=== PATIENT | female | born 1985 | race Caucasian/White ===

== ENCOUNTER 2024-07-26 19:44 | Emergency (ER) | payer BC, SELFPAY ==
--- NOTE | ~2024-07-26 | XR_ITS ---
EXAMINATION: XR chest 2V DATE: 07/26/2024 20:21 INDICATION: Shortness of breath. Chest pain. TECHNIQUE: Frontal and lateral views of the chest were obtained. COMPARISON: None. FINDINGS: There is no pneumonia, pleural effusion, or pneumothorax. The heart size is normal. IMPRESSION: 1. No acute cardiopulmonary disease. Reviewed, dictated and finalized at location A. [facility]
--- NOTE | 2024-07-26 19:48 | ECG_ITS ---
Test Date: 2024-07-26 19:53:06 Measurements Intervals [place] Rate: 63 P: -28 DE: 106 QRS: 48 QRSD: 78 T: 60 QT: 391 QTc: 402 Interpretive Statements SINUS RHYTHM WITH SHORT DE INTERVAL No previous ECG available for comparison Electronically Signed On 07-27-2024 12:58:49 CHILD NURSE by Yessenia Ayoub M.D.
[2024-07-26 19:50] VITALS: BP 144/93; PULSE 79; RESP 20; TEMP 35.7; O2SAT 100
--- NOTE | 2024-07-26 20:13 | ED_ITS ---
HPI - General Adult General Chief complaint: Chest Pain <Yosef Boyd MD - Last Filed: 07/26/24 23:00> Stated complaint: chest pain <Yosef Boyd MD - Last Filed: 07/26/24 23:00> Time Seen by Provider: 07/26/24 20:06 <Yosef Boyd MD - Last Filed: 07/26/24 23:00> History of Present Illness HPI narrative: Patient is a 39-year-old female who presents ER with left-sided chest pain. Began while driving to work, symptoms started around 6:45 p.m.. Reports she gets similar discomfort in her chest when she has issues with gastroparesis of unknown origin. Her stomach felt unwell yesterday and she began having vomiting today. She has been compliant with home medications. No fevers or chills or sweats. No hemoptysis. Has mild discomfort with deep breath. No dyspnea. Did not eat yesterday or today. <Yosef Boyd MD - Last Filed: 07/26/24 23:00> Related Data Allergies/adverse reactions: Allergies Allergy/AdvReac Type Severity Reaction Status Date / Time No Known Allergies Allergy Verified 07/27/24 00:33 <Yosef Boyd MD - Last Filed: 07/26/24 23:00> Review of Systems 2 Review of Systems: All systems reviewed & are unremarkable except as noted in HPI and below <Yosef Boyd MD - Last Filed: 07/26/24 23:00> Constitutional: Constitutional: Reports no additional constitutional complaints <Yosef Boyd MD - Last Filed: 07/26/24 23:00> ENT: Reports system reviewed and no additional complaints, except as documented <Yosef Boyd MD - Last Filed: 07/26/24 23:00> Cardiovascular: Cardiovascular: Reports chest pain, Denies rapid heart rate, Denies radiating jaw, neck or arm pain and Denies slow heart rate <Yosef Boyd MD - Last Filed: 07/26/24 23:00> Respiratory: Respiratory: Reports no additional respiratory complaints < Yosef Boyd MD - Last Filed: 07/26/24 23:00> Gastrointestinal: Gastrointestinal: Reports no additional gastrointestinal complaints <Yosef Boyd MD - Last Filed: 12/13/24 23:00> PMFSH Past Medical History Medical History: Medical History (Updated 07/26/24 @ 22:57 by Yosef Boyd MD) Gastroparesis <Yosef Boyd MD - Last Filed: 07/26/24 23:00> Surgical History Surgical History: Surgical History (Updated 07/26/24 @ 20:16 by Yosef Boyd MD) History of section <Yosef Boyd MD - Last Filed: 07/26/24 23:00> Exam 2 Narrative: GENERAL: Well-appearing, well-nourished, and in no acute distress. HEAD: Normocephalic, atraumatic. ENT: Mucous membranes moist. NECK: Supple. CHEST: Clear to auscultation. No respiratory distress. HEART: Regular rate and rhythm. Normal peripheral pulses. ABDOMEN: Soft, nontender, nondistended. EXTREMITIES: Normal range of motion. No edema. SKIN: Warm, dry, no rash. NEURO: Alert and oriented x3. PSYCH: Normal mood and affect. <Yosef Boyd MD - Last Filed: 07/26/24 23:00> Course Course Emergency Course: Patient resting comfortably, first troponin negative, nausea improved. Will get second trop. TONO to Dr. Bush. <Yosef Boyd MD - Last Filed: 07/26/24 23:00> Vital Signs Vital signs: Vital Signs Temperature 35.7 C L 07/26/24 19:50 Pulse Rate 79 07/26/24 19:50 Respiratory Rate 20 07/26/24 19:50 Blood Pressure 144/93 H 07/26/24 19:50 Pulse Oximetry 100 07/26/24 19:50 Oxygen Delivery Room Air 07/26/24 19:50 Temperature 35.7 C L 07/26/24 19:50 Pulse Rate 77 07/26/24 23:47 Respiratory Rate 14 07/26/24 23:47 Blood Pressure 102/72 07/26/24 23:47 Pulse Oximetry 99 07/26/24 23:47 Oxygen Delivery Room Air 07/26/24 19:50 <Yosef Boyd MD - Last Filed: 07/26/24 23:00> Vital Signs Temperature 35.7 C L 07/26/24 19:50 Pulse Rate 79 07/26/24 19:50 Respiratory Rate 20 07/26/24 19:50 Blood Pressure 144/93 H 07/26/24 19:50 Pulse Oximetry 100 07/26/24 19:50 Oxygen Delivery Room Air 07/26/24 19:50 Temperature 35.7 C L 07/26/24 19:50 Pulse Rate 77 07/26/24 23:47 Respiratory Rate 14 07/26/24 23:47 Blood Pressure 102/72 07/26/24 23:47 Pulse Oximetry 99 07/26/24 23:47 Oxygen Delivery Room Air 07/26/24 19:50 <Boby Bush MD - Last Filed: 07/27/24 01:05> Medical Decision Making MDM Narrative Medical decision making narrative: 39-year-old female with history of gastroparesis presenting to the emergency department for left-sided chest pain. Patient is endorsed to me by previous provider pending completion of her workup. Remaining workup is repeat troponin and then plan of care per previous provider was to discharge home at that time. The patient has had largely unremarkable workup thus far including negative initial troponin. There is a slight leukocytosis of 12.1 but normal hemoglobin, normal platelets. Coag studies normal. Electrolyte panel shows normal potassium, sodium and chloride. Normal kidney function, normal glucose, normal LFTs. Negative troponin x2, normal lipase. Patient did have some nauseousness and received antiemetic therapy by previous provider with complete symptomatic resolution while here in the ED. EKGs were independently reviewed and interpreted as nonischemic. Patient's 2nd troponin came back also negative. Her left-sided chest pain and nauseousness have since resolved and she has stable reassuring vital signs. She is stable for discharge home at this time. Patient was informed about close follow-up with the PCP and return with any new or worsening conditions. < Boby Bush MD - Last Filed: 07/27/24 01:05> Medical Records Medical records reviewed: Yes I reviewed the external patient's medical records. <Boby Bush MD - Last Filed: 07/27/24 01:05> Vital Signs Vital Signs: Vital Signs Temperature 35.7 C L 07/26/24 19:50 Pulse Rate 79 07/26/24 19:50 Respiratory Rate 20 07/26/24 19:50 Blood Pressure 144/93 H 07/26/24 19:50 Pulse Oximetry 100 07/26/24 19:50 Oxygen Delivery Room Air 07/26/24 19:50 Temperature 35.7 C L 07/26/24 19:50 Pulse Rate 77 07/26/24 23:47 Respiratory Rate 14 07/26/24 23:47 Blood Pressure 102/72 07/26/24 23:47 Pulse Oximetry 99 07/26/24 23:47 Oxygen Delivery Room Air 07/26/24 19:50 <Yosef Boyd MD - Last Filed: 07/26/24 23:00> Vital Signs Temperature 35.7 C L 07/26/24 19:50 Pulse Rate 79 07/26/24 19:50 Respiratory Rate 20 07/26/24 19:50 Blood Pressure 144/93 H 07/26/24 19:50 Pulse Oximetry 100 07/26/24 19:50 Oxygen Delivery Room Air 07/26/24 19:50 Temperature 35.7 C L 07/26/24 19:50 Pulse Rate 77 07/26/24 23:47 Respiratory Rate 14 07/26/24 23:47 Blood Pressure 102/72 07/26/24 23:47 Pulse Oximetry 99 07/26/24 23:47 Oxygen Delivery Room Air 07/26/24 19:50 <Boby Bush MD - Last Filed: 07/27/24 01:05> Lab Data Lab results reviewed: Yes I reviewed the patient's lab results. <Boby Bush MD - Last Filed: 07/27/24 01:05> Result diagrams: 07/26/24 21:25 07/26/24 21:25 <Yosef Boyd MD - Last Filed: 07/26/24 23:00> Labs: Lab Results 07/26/24 07/27/24 Range/Units 21:25 00:31 WBC 12.1 H (4.5-10.0) K/mm3 RBC 5.00 (4.2-5.4) M/mm3 Hgb 15.0 (12.0-15.0) g/dL Hct 43.2 (37.0-47.0) % MCV 86.4 (80-100) fl MCH 30.0 (26-34) pg MCHC 34.7 (32-36) g/dl RDW 13.2 (11.5-14.5) % Plt Count 402 H (150-375) k/mm3 MPV 10.4 (7.4-10.4) fl Immature Gran % (Auto) 0.4 (0-0.5) % Neut % (Auto) 67.8 (45.5-73.1) % Lymph % (Auto) 24.4 (18.3-44.2) % [place] % (Auto) 6.4 (2.6-8.5) % Eos % (Auto) 0.6 (0-4.4) % Baso % (Auto) 0.4 (0.2-1.2) % Lymph # (Auto) 2.95 (0.9-3.2) K/mm3 [place] # (Auto) 0.8 H (0.1-0.6) K/mm3 Eos # (Auto) 0.1 (0-0.3) K/mm3 Baso # (Auto) 0.1 (0.0-0.1) K/mm3 Abs Immat Gran (auto) 0.05 H (0.00-0.031) K/mm3 Absolute Neuts (auto) 8.2 H (1.3-6.7) K/mm3 Absolute Nucleated RBC 0.000 (0.0-0.012) K/mm3 Nucleated RBC % 0.0 (0.0-0.2) % PT 14.3 (11.1-14.7) Seconds INR 1.1 APTT 24.6 (22.3-36.8) Seconds Sodium 135 L (137-145) mmol/L Potassium 3.4 (3.4-5.0) mmol/L Chloride 103 (98-107) mmol/L Carbon Dioxide 18 L (22-30) mmol/L Anion Gap 14 H (4-12) mmol/L BUN 14 (7-17) mg/dL Creatinine 0.90 (0.7-1.0) mg/dL Estim Creat Clear Calc 63 ml/min Estimated GFR > 60 (59 - ) Glucose 100 (65-110) mg/dL Calcium 9.7 (8.4-10.2) mg/dL Total Bilirubin 0.9 (0.2-1.3) mg/dL AST 36 (14-36) U/L ALT 27 (6-35) U/L Alkaline Phosphatase 96 (38-126) U/L Troponin I < 0.012 < 0.012 (0.000-0.034) ng/mL Total Protein 9.0 H (6.3-8.2) g/dL Albumin 4.5 (3.5-5.1) g/dL Lipase 55 (23-300) U/L <Yosef Boyd MD - Last Filed: 07/26/24 23:00> Lab Results 07/26/24 07/27/24 Range/Units 21:25 00:31 WBC 12.1 H (4.5-10.0) K/mm3 RBC 5.00 (4.2-5.4) M/mm3 Hgb 15.0 (12.0-15.0) g/dL Hct 43.2 (37.0-47.0) % MCV 86.4 (80-100) fl MCH 30.0 (26-34) pg MCHC 34.7 (32-36) g/dl RDW 13.2 (11.5-14.5) % Plt Count 402 H (150-375) k/mm3 MPV 10.4 (7.4-10.4) fl Immature Gran % (Auto) 0.4 (0-0.5) % Neut % (Auto) 67.8 (45.5-73.1) % Lymph % (Auto) 24.4 (18.3-44.2) % [place] % (Auto) 6.4 (2.6-8.5) % Eos % (Auto) 0.6 (0-4.4) % Baso % (Auto) 0.4 (0.2-1.2) % Lymph # (Auto) 2.95 (0.9-3.2) K/mm3 [place] # (Auto) 0.8 H (0.1-0.6) K/mm3 Eos # (Auto) 0.1 (0-0.3) K/mm3 Baso # (Auto) 0.1 (0.0-0.1) K/mm3 Abs Immat Gran (auto) 0.05 H (0.00-0.031) K/mm3 Absolute Neuts (auto) 8.2 H (1.3-6.7) K/mm3 Absolute Nucleated RBC 0.000 (0.0-0.012) K/mm3 Nucleated RBC % 0.0 (0.0-0.2) % PT 14.3 (11.1-14.7) Seconds INR 1.1 APTT 24.6 (22.3-36.8) Seconds Sodium 135 L (137-145) mmol/L Potassium 3.4 (3.4-5.0) mmol/L Chloride 103 (98-107) mmol/L Carbon Dioxide 18 L (22-30) mmol/L Anion Gap 14 H (4-12) mmol/L BUN 14 (7-17) mg/dL Creatinine 0.90 (0.7-1.0) mg/dL Estim Creat Clear Calc 63 ml/min Estimated GFR > 60 (59 - ) Glucose 100 (65-110) mg/dL Calcium 9.7 (8.4-10.2) mg/dL Total Bilirubin 0.9 (0.2-1.3) mg/dL AST 36 (14-36) U/L ALT 27 (6-35) U/L Alkaline Phosphatase 96 (38-126) U/L Troponin I < 0.012 < 0.012 (0.000-0.034) ng/mL Total Protein 9.0 H (6.3-8.2) g/dL Albumin 4.5 (3.5-5.1) g/dL Lipase 55 (23-300) U/L <Boby Bush MD - Last Filed: 07/27/24 01:05> Imaging Data Attestation: I personally reviewed and interpreted this imaging study as follows: < Boby Bush MD - Last Filed: 07/27/24 01:05> My impression: Impressions Chest X-Ray 07/26/24 20:36 IMPRESSION: 1. No acute cardiopulmonary disease. <Boby Bush MD - Last Filed: 07/27/24 01:05> ECG Data EKG #1: Attestation: I personally reviewed and interpreted this ECG as follows: < Boby Bush MD - Last Filed: 07/27/24 01:05> ECG completion date: 07/26/24 <Boby Bush MD - Last Filed: 07/27/24 01:05> ECG completion time: 19:53 <Boby Bush MD - Last Filed: 07/27/24 01:05> Prior ECG tracings: not available for review <Boby Bush MD - Last Filed: 07/27/24 01:05> Interpretation: Regular rate rhythm an axis, no ST segment elevations depressions or inversions overall normal sinus rhythm without any acute signs of ischemia. No ectopy. QTC 4 2, QRS 78, FL interval 106 all within acceptable limits. < Boby Bush MD - Last Filed: 07/27/24 01:05> Discharge Plan Discharge Clinical Impression: Atypical chest pain, Gastroparesis <Yosef Boyd MD - Last Filed: 07/26/24 23:00> Patient Disposition: Home, Self-Care <Yosef Boyd MD - Last Filed: 07/26/24 23:00> Condition: Stable <Yosef Boyd MD - Last Filed: 07/26/24 23:00> Additional Instructions: Return to the emergency department if you develop severe abdominal pain, severe nausea and vomiting to the point where you are unable to keep down fluids, if you develop chest pain or difficulty breathing, blood in your stool, dizziness or fainting, or if you develop any other new or concerning symptoms as these could be signs of more serious medical illness. Try to stay well hydrated. <Yosef Boyd MD - Last Filed: 07/26/24 23:00> Patient Language: Kiswahili <Yosef Boyd MD - Last Filed: 07/26/24 23:00> Follow-up/Referrals: PHYSICIAN NOT ON STAFF,NONSTAFF [Non-Staff] - <Yosef Boyd MD - Last Filed: 07/26/24 23:00> Time of Disposition: 01:05 <Yosef Boyd MD - Last Filed: 07/26/24 23:00> 01:05 <Boby Bush MD - Last Filed: 07/27/24 01:05>
[2024-07-26] MEDS: MORPHINE SULFATE (*CRX) 4 MG/ML INJ IV PUSH (21:18)
[2024-07-26] MEDS: SODIUM CHLORIDE 0.9% IV 1,000 ML 999 ML IV CONT (21:18)
[2024-07-26] MEDS: PROCHLORPERAZINE EDISYLATE 10 MG/2 ML VIAL IV PUSH (21:19)
[2024-07-26] MEDS: ASPIRIN 81 MG CHEWABLE TABLET 324 MG PO (21:20)
[2024-07-26 21:32] LABS: Basophils Absolute Auto 0.1 K/mm3 (0.0-0.1); Basophils Percent Auto 0.4 % (0.2-1.2); Eosinophils Absolute Auto 0.1 K/mm3 (0-0.3); Eosinophils Percent Auto 0.6 % (0-4.4); Hematocrit 43.2 % (37.0-47.0); Immature Granulocyte Absolute 0.05 K/mm3 (0.00-0.031); Immature Granulocyte Percent A 0.4 % (0-0.5); Lymphocytes Absolute Auto 2.95 K/mm3 (0.9-3.2); Lymphocytes Percent Auto 24.4 % (18.3-44.2); Mean Corpuscular HGB Conc 34.7 g/dl (32-36); Mean Corpuscular Volume 86.4 fl (80-100); Mean Platelet Volume 10.4 fl (7.4-10.4); Monocytes Absolute Auto 0.8 K/mm3 (0.1-0.6); Monocytes Percent Auto 6.4 % (2.6-8.5); Neutrophils Absolute Auto 8.2 K/mm3 (1.3-6.7); Neutrophils Percent Auto 67.8 % (45.5-73.1); Platelet Count Result 402 k/mm3 (150-375); Red Cell Distribution Width 13.2 % (11.5-14.5); White Blood Count 12.1 K/mm3 (4.5-10.0)
[2024-07-26 21:42] LABS: Alanine Aminotransferase 27 U/L (6-35); Albumin Level 4.5 g/dL (3.5-5.1); Alkaline Phosphatase 96 U/L (38-126); Anion Gap 14 mmol/L (4-12); Aspartate Amino Transferase 36 U/L (14-36); Bilirubin,Total 0.9 mg/dL (0.2-1.3); Blood Urea Nitrogen 14 mg/dL (7-17); Calcium 9.7 mg/dL (8.4-10.2); Carbon Dioxide 18 mmol/L (22-30); Chloride 103 mmol/L (98-107); Estimated CRCL calculation 63 ml/min; Estimated Glomerular Filt Rate > 60; Glucose 100 mg/dL (65-110); INR 1.1; Lipase 55 U/L (23-300); Potassium 3.4 mmol/L (3.4-5.0); Prothrombin Time 14.3 Seconds (11.1-14.7); Sodium 135 mmol/L (137-145)
[2024-07-26 21:43] LABS: Partial Thromboplastin Time 24.6 Seconds (22.3-36.8)
[2024-07-26 21:53] LABS: Troponin I < 0.012 ng/mL (0.000-0.034)
--- NOTE | 2024-07-26 22:05 | PC.NURSE ---
blood work and medications delayed due to pt being hard stick.
--- NOTE | 2024-07-26 23:46 | PC.NURSE ---
care and report given to RUBÉN Corral. all questions answered
[2024-07-26 23:47] VITALS: BP 102/72; PULSE 77; RESP 14; O2SAT 99
[2024-07-27 00:58] LABS: Troponin I < 0.012 ng/mL (0.000-0.034)
[2024-07-27 01:20] VITALS: O2SAT 98
[2024-07-27 01:22] VITALS: BP 102/72; PULSE 71; RESP 13; O2SAT 100
--- OUTSIDE RECORDS SUMMARY | 2024-07-30 14:06 | XMS_ITS | Encounter Summary ---
Author Organization [facility] Health Address [address] [place] [address] Care Team Providers Care Water Pumper Name Role Phone Dona Beyer MD Primary Care Provider [phone] Encounter Details Date Type Department Care Team (Latest Contact Info) Description 06/10/2021 Travel Social History Tobacco Use Types Packs/Day Years Used Date Smoking Tobacco: Never Smokeless Tobacco: Never Alcohol Use Standard Drinks/Week Comments Yes 0 (1 standard drink = 0.6 oz pur e alcohol) social - rare Sex and Gender Information Value Date Recorded Sex Assigned at Not on file Gender Identity Female 08/19/2022 7:56 AM [employer] Sexual Orientation Not on file COVID-19 Exposure Response Date Recorded In the last month, have you been in contact with someone who was confirmed or suspected to have Coronavirus / COVID-19? No / Unsure 06/10/2021 9:27 AM CDT documented as of this encounter Plan of Treatment Not on file documented as of this encounter Visit Diagnoses Not on filedocumented in this encounter Care Teams Water Pumper Relationship Specialty Start Date End Date Dona Beyer MD PCP - General Co Director 03/26/20 07/06/21 documented as of this encounter
--- OUTSIDE RECORDS SUMMARY | 2024-07-30 14:06 | XMS_ITS | Encounter Summary ---
Author Organization [facility] Address [address] [place] [address] Care Team Providers Care Operations Management Trainee Name Role Phone Avery Hidalgo DO Primary Care Provider [phone] Reason for Visit * Reason Comments Pain Head Began today Encounter Details Date Type Department Care Team (Late st Contact Info) Description 04/20/2019 11:42 AM CDT - 04/20/2019 4:54 PM CDT Emergency ER at 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 Sexual Orientation Not on file documented as of this encounter Last Filed Vital Signs Vital Sign Reading Time Taken Comments Blood Pressure 120/64 04/20/2019 3:30 PM CDT Pulse 87 04/20/2019 1:45 PM CDT Temperature 36.6 ??C (97.9 ??F) 04/20/2019 11:45 AM C DT Respiratory Rate 15 04/20/2019 11:45 AM CDT Oxygen Saturation 100% 04/20/2019 3:00 PM CDT Inhaled Oxygen Concentration - - Weight 46.7 kg (103 lb) 04/20/2019 11:45 AM CDT Height 154.9 cm (5' 1 ) 04/20/2019 11:45 AM CDT Body Mass Index 19.46 04/20/2019 11:45 AM CDT documented in this encounter Discharge Instructions * Discharge Instructions* Ector Kolb PA-C - 04/20/2019 4:23 PM CDT Return to ER if you have worsening headache, vision changes, numbness, weakness, confusion, fevers,severe neck pain, or other concerning changes. * Attachments The following attachments cannot be sent through Care Everywhere. * MIGRAINE HEADACHE (AFTERCARE(R) INSTRUCTIONS(ER/ED)) (MICRONESIAN) documented in this encounter Medications at Time of Discharge Medication Sig Dispensed Refills Start Date End Date clonazePAM (KLONOPIN) 0.5 MG tablet Take 1 (one) tablet by mouth 2 times daily DULoxetine (CYMBALTA) 60 MG capsule Take 1 (one) capsule by mouth once daily 5 11/13/2015 AMETHIA 0.15-0.03 &0.01 MG tablet Take 1 Tab by mouth once daily 11 04/25/2016 07/07/2021 buPROPion (WELLBUTRIN) 100 MG tablet TK 1 T PO QAM 2 12/23/2016 07/07/2021 lamoTRIgine XR 24hr (LAMICTAL XR) 100 MG tablet Take 1 (one) tablet by mouth once daily 10/12/2022 omeprazole (PRILOSEC) 20 MG capsule Take 20 mg by mouth daily before breakfast QUEtiapine (SEROQUEL) 25 MG tablet 50 mg at bedtime 0 11/30/2016 07/07/2021 vitamin D3 ([employer] VIT D 5000 HIGH-POTENCY) 5000 UNITS capsule Take 1 Cap by mouth once daily 06/22/2016 08/19/2022 documented as of this encounter ED Notes * Ector Kolb PA-C - 04/20/2019 12:27 PM CDT ED Events Date/Time Event User Comments 04/20/19 1227 First Provider Evaluation ECTOR KOLB [id number] [facility] History Chief Complaint Patient presents with ??? Pain Head Began today 34yo F reports headache since yesterday morning that is R sided. Reports a pain focused at the R occipital scalp/R upper neck. Denies posterior neck pain or neck stiffness. Denies head trauma. NO history of similar headache in the past. Pt tried tylenol and Excedrin with minimal relief. Sx are worsened with light and sound. Denies fevers, fatigue, myalgias, congestion, URI sx. Headache Pain location: R parietal, R temporal and occipital Quality: throbbing. Radiates to: Does not radiate Onset quality: Gradual Duration: 2 days Timing: Constant Progression: Waxing and waning Chronicity: New Similar to prior headaches: no Context: not activity, not coughing and not straining Relieved by: Nothing Worsened by: Light and sound Ineffective treatments: Acetaminophen Associated symptoms: no abdominal pain, no back pain, no blurred vision, no congestion, no cough, no diarrhea, no dizziness, no ear pain, no eye pain, no facial pain, no fatigue, no fever, no focal weakness, no hearing loss, no loss of balance, no myalgias, no nausea, no near-syncope, no neck stiffness, no numbness, no paresthesias, no photophobia, no sinus pressure, no sore throat, no syncope, no tingling, no URI, no visual change, no vomiting and no weakness Past Medical History: Diagnosis Date ??? Depressive disorder, not elsewhere classified ??? Generalized anxiety disorder ??? Vaginal vestibulitis Past Surgical History: Procedure Laterality Date ??? Section 04/03/2011 ??? COLONOSCOPY 04/19/2013 COLONOSCOPY DIAGNOSTIC ??? COLONOSCOPY WITH BIOPSY 04/19/2013 COLONOSCOPY BIOPSY ??? ENDOSCOPY, UPPER 04/19/2013 ESOPHAGOGASTRODUODENOSCOPY (EGD) ??? ENDOSCOPY, UPPER 04/19/2013 ENDOSCOPY GI UPPER WITH BIOPSY ??? [place] Tooth Extraction Family History Problem Relation Age of Onset ??? Hypercholesterolemia Father ??? Depression Father ??? Cancer Mother breast ??? Arthritis - Rheumatoid Maternal Grandmother ??? Coronary Artery Disease Maternal Grandmother ??? Diabetes Maternal Grandmother ??? Heart Failure Maternal Grandmother ??? Hypertension Mother ??? Hypertension Father ??? Thyroid Disease Mother ??? Thyroid Disease Maternal Grandmother ??? Thyroid Disease Paternal Grandmother Social History Socioeconomic History ??? Marital status: Spouse name: Not on file ??? Number of children: 1 ??? Years of education: Not on file ??? Highest education level: Not on file Occupational History ??? 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 Financial resource strain: Not on file ??? Food insecurity: Worry: Not on file Inability: Not on file ??? Transportation needs: Medical: Not on file Non-medical: Not on file Tobacco Use ??? Smoking status: Never Smoker ??? Smokeless tobacco: Never Used Substance and Sexual Activity ??? Alcohol use: Yes Comment: social - rare ??? Drug use: No ??? Sexual activity: Yes Partners: Male Lifestyle ??? Physical activity: Days per week: Not on file Minutes per session: Not on file ??? Stress: Not on file Relationships ??? Social connections: Talks on phone: Not on file Gets together: Not on file Attends tenriism service: Not on file Active member of club or organization: Not on file Attends meetings of clubs or organizations: Not on file Relationship status: Not on file ??? Intimate partner violence: Fear of current or ex partner: Not on file Emotionally abused: Not on file Physically abused: Not on file Forced sexual activity: Not on file Other Topics Concern ??? Not on file Social History Narrative Merged History Encounter Review of Systems Review of Systems Constitutional: Negative for chills, fatigue, fever and malaise/fatigue. HENT: Negative for congestion, ear pain, hearing loss, sinus pressure, sinus pain and sore throat. Eyes: Negative for blurred vision, photophobia and pain. Respiratory: Negative for cough and shortness of breath. Cardiovascular: Negative for chest pain, palpitations, syncope and near-syncope. Gastrointestinal: Negative for abdominal pain, diarrhea, nausea and vomiting. Genitourinary: Negative for dysuria. Musculoskeletal: Negative for back pain, myalgias and neck stiffness. See HPI Skin: Negative for itching and rash. Neurological: Positive for headaches. Negative for dizziness, sensory change, speech change, focal weakness, weakness, numbness, paresthesias and loss of balance. See HPI Physical Exam BP 120/64 Pulse 87 Temp 97.9 ??F (36.6 ??C) (Oral) Resp 15 Ht 1.549 m (5' 1 ) Wt 46.7 kg (103 lb) SpO2 100% BMI 19.46 kg/m?? Physical Exam Constitutional: She is oriented to person, place, and time. She appears well- developed and well-nourished. No distress. HENT: Head: Normocephalic and atraumatic. Eyes: Pupils are equal, round, and reactive to light. Conjunctivae and EOM are normal. Neck: Normal range of motion. Neck supple. No spinous process tenderness and no muscular tendernesspresent. No neck rigidity. No edema and normal range of motion present. Cardiovascular: Normal rate, regular rhythm, normal heart sounds and intact distal pulses. Pulmonary/Chest: Effort normal and breath sounds normal. No stridor. No respiratory distress. She has no wheezes. She has no rales. Abdominal: Soft. Bowel sounds are normal. There is no tenderness. Musculoskeletal: She exhibits no edema. Neurological: She is alert and oriented to person, place, and time. She has normal strength. No cranial nerve deficit or sensory deficit. Coordination and gait normal. Skin: Skin is warm and dry. No rash noted. No pallor. Psychiatric: Her behavior is normal. Nursing note and vitals reviewed. Medications Current Outpatient Medications Medication Sig Dispense Refill ? ? AMETHIA 0.15-0.03 &0.01 MG tablet Take 1 Tab by mouth once daily 11 ??? buPROPion (WELLBUTRIN) 100 MG tablet TK 1 T PO QAM 2 ??? clonazePAM (KLONOPIN) 0.5 MG tablet Take 0.5 mg by mouth 2 times daily ??? DULoxetine (CYMBALTA) 60 MG capsule Take 1 Cap by mouth once daily 5 ??? lamoTRIgine XR 24hr (LAMICTAL XR) 100 MG tablet Take 100 mg by mouth once daily ??? omeprazole (PRILOSEC) 20 MG capsule Take 20 mg by mouth daily before breakfast ??? QUEtiapine (SEROQUEL) 25 MG tablet 50 mg at bedtime 0 ??? vitamin D3 ([employer]S VIT D 5000 HIGH-POTENCY) 5000 UNITS capsule Take 1 Cap by mouth once daily (Patient not taking: Reported on 04/20/2019) Procedures Procedures Lab/SPO2 Interpretation Hospital Encounter on 04/20/19 HCG URINE QUAL POCT NOTIFICATION Result Value Ref Range Comment Notification Label Only - See Separate Report CBC W AUTO DIFFERENTIAL Result Value Ref Range WBC 10.1 4.4 - 10.7 x10E9/L WBC Corrected RBC 4.83 3.80 - 5.20 x10E12/L Hemoglobin 14.0 12.0 - 15.6 gm/dL Hematocrit 41.8 35.9 - 45.5 % MCV 86.5 80.7 - 98.3 fl MCH 29.0 26.7 - 34.0 pg MCHC 33.5 30.8 - 35.9 gm/dL Platelet Count 400 153 - 416 x10E9/L RDW-CV 12.8 12.1 - 14.9 % MPV 9.7 9.4 - 12.9 fl Neutrophils % 52.1 44.0 - 73.0 % Lymphocytes % 35.9 20.0 - 43.0 % Monocytes % 7.3 5.0 - 13.0 % Eosinophils % 4.0 0.0 - 6.0 % Basophils % 0.5 0.0 - 2.0 % Immature Granulocytes 0.2 0 - 1 % Neutrophil Absolute 5.26 2.01 - 7.14 x10E9/L Lymphocytes Absolute 3.62 1.07 - 3.94 x10E9/L Monocytes Absolute 0.74 0.26 - 1.07 x10E9/L Eosinophils Absolute 0.40 0 - 0.47 x10E9/L Basophils Absolute 0.05 0 - 0.08 x10E9/L Immature Granulocytes Absolute 0.02 0.00 - 0.06 x10E9/L nRBC Auto 0 /100 WBC BASIC METABOLIC PANEL (CALCIUM TOTAL) Result Value Ref Range Glucose 112 (H) 74 - 106 mg/dL Sodium 136 136 - 145 mmol/L Potassium 3.6 3.5 - 5.1 mmol/L Chloride 100 98 - 107 mmol/L CO2 23 23 - 31 mmol/L Calcium 9.0 8.4 - 10.2 mg/dL Anion Gap 13 8 - 16 mmol/L BUN 15 7 - 18.7 mg/dL Creatinine 0.92 0.55 - 1.02 mg/dL eGFR by MDRD >60 >60 mL/min/1.73m2 eGFR by MDRD >60 >60 mL/min/1.73m2 HCG URINE QUALITATIVE - POCT (IP) INTERFACED Result Value Ref Range HCG Qual Urine Negative Negative CT HEAD WO CONTRAST Final Result CT Brain Without Contrast Indication: Headache. Head pain. Comparison: None available Technique: Axial images of the brain were obtained without contrast and reconstructions performed. Findings: There is no evidence of acute intracranial hemorrhage or recent cortical infarction. There is no mass or midline shift. Ventricular size is within normal limits. There are no extra-axial fluid collections. The bony calvarium is intact. The paranasal sinuses and mastoid air cells are clear. IMPRESSION No acute intracranial process. Reading Radiologist: Fermin Perdomo MD on 04/20/2019 at 2:58 PM Progress Notes ED Course 34yo F with 2 days of R sided headache worsened by light and sound. No trauma. No neuro deficits. CT head neg. Pt improved with migraine cocktail and requesting discharge. Consistent with migraine type headache. Discussed option for LP, low suspicion for acute process. Pt declines. Will return for worsening. Clinical Impressions as of Apr 20 2326 Acute nonintractable headache, unspecified headache type Migraine without status migrainosus, not intractable, unspecified migraine type Medical Decision Making I have reviewed the: Nursing Notes, Vitals. I have interpreted the following results: Labs, CT Scans. Orders Placed This Encounter ??? CT HEAD WO CONTRAST ??? HCG URINE QUAL POCT NOTIFICATION ??? CBC W AUTO DIFFERENTIAL ??? BASIC METABOLIC PANEL (CALCIUM TOTAL) ??? lactated ringers IV bolus ??? prochlorperazine (COMPAZINE) injection 5 mg ??? lactated ringers infusion ADS Med ??? diphenhydrAMINE (BENADRYL) injection 25 mg ??? ketorolac (TORADOL) injection 30 mg Follow-up Information Follow-up With Details Why Contact Info Avery Hidalgo DO [address] [facility] [address] Emergency Department As needed, If symptoms worsen [address] [facility] [id number] User Date/Time Ector Kolb PA-C Sat Apr 20, 2019 4:23 PM documented in this encounter Plan of Treatment Not on file documented as of this encounter Procedures Procedure Name Priority Date/Time Associated Diagnosis Comments PATHOLOGY/CYTOLOGY REPORT ORDER 08/23/2019 8:52 [address]IVER [address] HEAD WO CONTRAST STAT 04/20/2019 2 :51 PM CDT Acute nonintractable headache, unspecified headache type HCG URINE QUALITATIVE - POCT (IP) INTERFACED Routine 04/20/2019 1:05 PM CDT HCG URINE QUAL POCT NOTIFICATION STAT 04/20/2019 12:58 PM CDT CBC W AUTO DIFFERENTIAL STAT 04/20/2019 12:54 PM CDT BASIC METABOLIC PANEL (CALCIUM TOTAL) STAT 04/20/2019 12:54 PM CDT documented in this encounter Results * PATHOLOGY/CYTOLOGY REPORT ORDER (08/23/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 Scanned Document LAB - PATHOLOGY/CYTO LOGY ORDERABLES * CT HEAD WO CONTRAST (04/20/2019 2:51 PM CDT) Anatomical Region Laterality Modality Head Computed Tomogra phy 04/20/2019 2:58 PM CDT Impressions 04/20/2019 2:58 PM CDT No acute intracranial process. Reading Radiologist: Fermin Perdomo MD on 04/20/2019 at 2:58 PM Narrative 04/20/2019 2:[address] Brain Without Contrast Indication: Headache. Head pain. Comparison: None available Technique: Axial images of the brain were obtained without contrast and reconstructions performed. Findings: There is no evidence of acute intracranial hemorrhage or recent cortical infarction. There is no mass or midline shift. Ventricular size is within normal limits. There are no extra-axial fluid collections. The bony calvarium is intact. The paranasal sinuses and mastoid air cells are clear. Procedure Note Fermin Perdomo MD - 04/20/2019 CT Brain Without Contrast Indication: Headache. Head pain. Comparison: None available Technique: Axial images of the brain were obtained without contrast and reconstructions performed. Findings: There is no evidence of acute intracranial hemorrhage or recent cortical infarction. There is no mass or midline shift. Ventricular size is within normal limits. There are no extra-axial fluid collections. The bony calvarium is intact. The paranasal sinuses and mastoid air cells are clear. IMPRESSION No acute intracranial process. Reading Radiologist: Fermin Perdomo MD on 04/20/2019 at 2:58 PM Ector Kolb PA-C CT ORDERABLES * HCG URINE QUALITATIVE - POCT (IP) INTERFACED (04/20/2019 1:05 PM CDT) HCG Qual Urine Negative Negative 04/20/2019 1:10 PM CDT [facility] Urine URINE / Unknown 04/20/2019 1 :05 PM CDT 04/20/2019 1:10 PM CDT Provider Unknown LAB - POINT OF CARE ORDERABLES Performing Organization Address City/[facility]/ZIP Co de Phone Number [facility] [address] [place], [place] [id number] * HCG URINE QUAL POCT NOTIFICATION (04/20/2019 12:58 PM CDT) Comment Notification Label Only - See Separate Report 04/20/2019 2:00 PM CDT [facility] Urine URINE / Unknown 04/20/2019 1 2:58 PM CDT 04/20/2019 12:58 PM CDT Ector Kolb PA-C LAB - URINALYSIS O RDERABLES Performing Organization Address City/[facility]/ZIP Co de Phone Number [facility] [address] [place] [phone] * (ABNORMAL) BASIC METABOLIC PANEL (CALCIUM TOTAL) (04/20/2019 12:54 PM CDT) Glucose 112(H) 74 - 106 mg/dL 04/20/2019 1:24 PM CDT [facility] Sodium 136 136 - 145 mmol/L 04/20/2019 1:24 PM CDT [facility] Potassium 3.6 3.5 - 5.1 mmol/L 04/20/2019 1:24 PM CDT [facility] Chloride 100 98 - 107 mmol/L 04/20/2019 1:24 PM CDT [facility] CO2 23 23 - 31 mmol/L 04/20/2019 1:24 PM CDT [facility] Calcium 9.0 8.4 - 10.2 mg/dL 04/20/2019 1:24 PM CDT [facility] Anion Gap 13 8 - 16 mmol/L 04/20/2019 1:24 PM CDT [facility] BUN 15 7 - 18.7 mg/dL 04/20/2019 1:24 PM CDT [facility] Creatinine 0.92 0.55 - 1.02 mg/dL 04/20/2019 1:24 PM CDT [facility] eGFR by MDRD >60 >60 mL/min/1.7 3m2 04/20/2019 1:24 PM CDT [facility] eGFR by MDRD >60 >60 mL/min/1.7 3m2 04/20/2019 1:24 PM T [facility] Blood BLOOD SPECIMEN / Unknown Venipuncture / Unknown 04/20/2019 12:54 PM CDT 04/20/2019 1:05 PM CDT Ector Kolb PA-C LAB - CHEMISTRY OR DERABLES [facility] [address] [address] * CBC W AUTO DIFFERENTIAL (04/20/2019 12:54 PM CDT) WBC 10.1 4.4 - 10.7 x10E9/L 04/20/2019 1:07 PM CDT [facility] WBC Corrected 04/20/2019 1:07 PM CDT [facility] RBC 4.83 3.80 - 5.20 x10E12/L 04/20/2019 1:07 PM CDT [facility] Hemoglobin 14.0 12.0 - 15.6 gm/dL 04/20/2019 1:07 PM [facility] Hematocrit 41.8 35.9 - 45.5 % 04/20/2019 1:07 PM [facility] MCV 86.5 80.7 - 98.3 fl 04/20/2019 1:07 PM [facility] MCH 29.0 26.7 - 34.0 pg 04/20/2019 1:07 PM [facility] MCHC 33.5 30.8 - 35.9 gm/dL 04/20/2019 1:07 PM [facility] Platelet Count 400 153 - 416 x10E9/L 04/20/2019 1:07 PM [facility] RDW-CV 12.8 12.1 - 14.9 % 04/20/2019 1:07 PM [facility] MPV 9.7 9.4 - 12.9 fl 04/20/2019 1:07 PM [facility] Neutrophils % 52.1 44.0 - 73.0 % 04/20/2019 1:07 PM [facility] Lymphocytes % 35.9 20.0 - 43.0 % 04/20/2019 1:07 PM [facility] Monocytes % 7.3 5.0 - 13.0 % 04/20/2019 1:07 PM [facility] Eosinophils % 4.0 0.0 - 6.0 % 04/20/2019 1:07 PM [facility] Basophils % 0.5 0.0 - 2.0 % 04/20/2019 1:07 PM [facility] Immature Granulocytes 0.2 0 - 1 % 04/20/2019 1:07 PM [facility] Neutrophil Absolute 5.26 2.01 - 7.14 x10E9/L 04/20/2019 1:07 PM [facility] Lymphocytes Absolute 3.62 1.07 - 3.94 x10E9/L 04/20/2019 1:07 PM [facility] Monocytes Absolute 0.74 0.26 - 1.07 x10E9/L 04/20/2019 1:07 PM [facility] Eosinophils Absolute 0.40 0 - 0.47 x10E9/L 04/20/2019 1:07 PM CDT [facility] Basophils Absolute 0.05 0 - 0.08 x10E9/L 04/20/2019 1:07 PM CDT [facility] Immature Granulocytes Absolute 0.02 0.00 - 0.06 x10E9/L 04/20/2019 1:07 PM CDT [facility] nRBC Auto 0 /100 WBC 04/20/2019 1:07 PM CDT [facility] Blood BLOOD SPECIMEN / Unknown Venipuncture / Unknown 04/20/2019 12:54 PM CDT 04/20/2019 1:05 PM CDT Ector Kolb PA-C LAB - HEMATOLOGY O RDERABLES [facility] [address] [address] documented in this encounter Visit Diagnoses Diagnosis Acute nonintractable headache, unspecified headache type Migraine without status migrainosus, not intractable, unspecified migraine type documented in this encounter Administered Medications Inactive Administered Medications - up to 3 most recent administrations Medication Order MAR Action Action Date Dose Rate Site diphenhydrAMINE (BENADRYL) injection 25 mg 25 mg, Intravenous, NOW, 1 dose, On 04/20/19 at 1415, Administer IV at a rate not exceeding 25 mg/min. Can dilute in 5-10 mL NS as needed for patient comfort. $ Given 04/20/2019 2:51 PM CDT 25 mg ketorolac (TORADOL) injection 30 mg 30 mg, Intravenous, ONCE, 1 dose, On 04/20/19 at 1600 $ Given 04/20/2019 4:11 PM CDT 30 mg lactated ringers infusion ADS Med 1 dose, Starting on 04/20/19 at 1250, Until 04/20/19 at 1317, Created by [email or web address] override lactated ringers IV bolus 1,000 mL, at 3,750 mL/hr, Administer over 16 Minutes, ONCE, 1 dose, On 04/20/19 at 1300 $ New Bag/Syringe 04/20/2019 1:01 PM CDT 1,000 mL 3750 mL/hr prochlorperazine (COMPAZINE) injection 5 mg 5 mg, Intravenous, ONCE, 1 dose, On 04/20/19 at 1300, Max intravenous rate = 5 mg/min $ Given 04/20/2019 1:00 PM CDT 5 mg documented in this encounter Active and Recently Administered Medications Times are shown in CDT. Scheduled Medication Order 04/18/2019 04/19/2019 04/20/2019 diphenhydrAMINE (BENADRYL) injection 25 mg (COMPLETED) 25 mg, Intravenous, NOW, 1 dose, On 04/20/19 at 1415, Administer IV at a rate not exceeding 25 mg/min. Can dilute in 5-10 mL NS as needed for patient comfort. 1451 ($ Given - Prov ider: Dona Keane RN) ketorolac (TORADOL) injection 30 mg (COMPLETED) 30 mg, Intravenous, ONCE, 1 dose, On 04/20/19 at 1600 1611 ($ Given - Prov ider: Dona Keane, RUBÉN) lactated ringers IV bolus (COMPLETED) 1,000 mL, at 3,750 mL/hr, Administer over 16 Minutes, ONCE, 1 dose, On 04/20/19 at 1300 1301 ($ New Bag/Syri nge - Provider: Dona Keane RN)1317 (Stopped - Provider: Dona Keane RN) prochlorperazine (COMPAZINE) injection 5 mg (COMPLETED) 5 mg, Intravenous, ONCE, 1 dose, On 04/20/19 at 1300, Max intravenous rate = 5 mg/min 1300 ($ Given - Prov ider: Dona Keane RN) documented in this encounter Care Teams Operations Management Trainee Relationship Specialty Start Date End Date Avery Hidalgo DO PCP - General Family Medicine 08/26/15 03/25/20 documented as of this encounter
--- OUTSIDE RECORDS SUMMARY | 2024-07-30 14:06 | XMS_ITS | Clinical Summary ---
Author Organization [facility] [employer] Address [address] [place] [address] Care Team Providers Care Liquid Natural Gas Plant Operator Name Role Phone Azar Braxton MD Primary Care Provider [phone] Source Comments [facility] [employer],non-owned Affiliates and Associated Physician Practices is amultiple site organization consisting of ambulatory clinics and hospital sitesin [place], [place], [place] and [place]. This disclosure is being madepursuant to the Care Everywhere program and may not contain all information available regarding this patient. Last updated 18.[facility] [employer] [employer] Allergies Active Allergy Reactions Criticality Noted Date Comments Latex Itching 04/03/2011 Red and swollen Reglan GI Discomfort,Palpitations Medications * Be aware that medications may not be up to date on this document. Alwaysverify current medications with the patient. Medication Sig Dispensed Refills Start Date End Date Status clonazePAM (KLONOPIN) 0.5 MG tablet Take 1 (one) tablet by mouth 2 times daily Active DULoxetine (CYMBALTA) 60 MG capsule Take 1 (one) capsule by mouth once daily 5 11/13/2015 Active ARIPiprazole (Abilify) 2 MG tablet Active traZODone (DESYREL) 50 MG tablet 05/09/2020 Active JOLESSA 0.15-0.03 MG tablet 06/23/2021 Active lamoTRIgine (LaMICtal) 100 MG tablet 08/21/2022 Active metoprolol succinate XL 24hr (Toprol XL) 25 MG tablet TAKE 1 TABLET BY MOUTH EVERY DAY 90 tablet 3 10/13/2022 Active Additional Information Patient not taking.Reported on 03/17/2023 verapamil (Isoptin) 40 MG tablet TAKE 1 TABLET BY MOUTH THREE TIMES DAILY 270 tablet 2 09/08/2023 Active Active Problems Problem Noted Date Diagnosed Date Bipolar disorder 07/07/2021 Insomnia 07/07/2021 Generalized anxiety disorder 07/07/2021 History of cervical dysplasia 05/14/2020 Overview (07/07/2021): 2019.10 Pap normal Hip pain, chronic 03/31/2017 Gastroesophageal reflux disease 06/22/2016 Allergic rhinitis due to pollen 12/08/2015 Vitamin D deficiency disease 08/26/2015 Vaginal vestibulitis Resolved Problems Problem Noted Date Diagnosed Date Resolved Date Throat pain 09/25/2017 07/07/2021 Anxiety and depression 08/26/201507/07 Immunizations Name Administration Dates Next Due Numote primary monoval ent 12+ yr 0.3mL Purple cap 11/12/2020 INFLUENZA 05/21/2021,05/22/2016,05/14/2011 INFLUENZA VACCINE, CELL CULT URE, QUADR. (FLUCELVAX QUADRIVALENT; 6MO+) (CCIIV4) 05/17/2022,05/15/2020 INFLUENZA VACCINE, QUADR. 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 TDAP (7yrs+) 05/22/2016 TDAP, HISTORIC VACCINE 08/02/2021 Family History Medical History Relation Name Comments Depression Father Hypercholesterolemia Father Hypertension Father Arthritis - Rheumatoid Maternal Grandmother CAD (Coronary Artery Disease) Maternal Grandmother Diabetes Maternal Grandmother Heart Failure Maternal Grandmother Thyroid Disease Maternal Grandmother Cancer Mother breast Hypertension Mother Thyroid Disease Mother Thyroid Disease Paternal Grandmother Relation Name Status Comments Father Alive Maternal Grandmother Mother Alive Paternal Grandmother Social History Tobacco Use Types Packs/Day Years Used Date Smoking Tobacco: Never Smokeless Tobacco: Never Tobacco Cessation:Counseling Given: Not Answered Alcohol Use Standard Drinks/Week Comments Yes 0 (1 standard drink = 0.6 oz pur e alcohol) social - rare PHQ-2 Answer Date Recorded PHQ2 TOTAL SCORE 0 08/19/2022 Sex and Gender Information Value Date Recorded Sex Assigned at Not on file Gender Identity Female 08/19/2022 7:56 AM MANAGER SIX SIGMA Sexual Orientation Not on file Last Filed Vital Signs Vital Sign Reading Time Taken Comments Blood Pressure 110/78 03/17/2023 1:17 PM CDT Pulse 88 03/17/2023 1:17 PM CDT Temperature 36.9 ??C (98.5 ??F) 03/17/2023 1:17 PM CD T Respiratory Rate 20 08/19/2022 2:34 PM MANAGER SIX SIGMA Oxygen Saturation 99% 03/17/2023 1:17 PM CDT Inhaled Oxygen Concentration 100% 2011 6 :05 PM CDT Weight 61.8 kg (136 lb 3.2 oz) 03/17/2023 1:17 P M CDT Height 154.9 cm (5' 1 ) 03/17/2023 1:17 PM CDT Body Mass Index 25.73 03/17/2023 1:17 PM CDT Plan of Treatment Health Maintenance Due Date Last Done Comments HEPATITIS B VACCINE (1 of 3 - 19+ 3-dose series) 2003 MAMMOGRAM 08/23/2013 08/23/2011 PAP SMEAR 05/14/2023 05/14/2020 (Done Outside Per Report), 09/14/2011, 09/14/2011 COVID-19 VACCINE ( season) 2024 06/21/2023, 12/25/2020, 11/12/2020 INFLUENZA VACCINE (#1) 2024 , 05/21/2021, 05/15/2020, Additional history exists LIPID TESTING 07/07/2026 07/07/2021, 03/14, 10/15/2015, Additional history exists DTAP/TDAP/TD VACCINES (3 - Td or Tdap) 08/02/2031 08/02/2021, 05/22/2016 ZOSTER VACCINE (1 of 2) 2034 HEPATITIS C SCREENING Completed 06/01/2015 HIV SCREENING Completed 07/07/2021 HIB VACCINE Aged Out No longer eligi ble based on patient's age to complete this topic HPV VACCINE Aged Out No longer eligi ble based on patient's age to complete this topic MENINGOCOCCAL VACCINE Aged Out No cosmo jessica eligible based on patient's age to complete this topic PNEUMOCOCCAL VACCINE Aged Out No long er eligible based on patient's age to complete this topic Procedures Procedure Name Priority Date/Time Associated Diagnosis Comments LIPID PROFILE Routine 07/07/2021 11:19 AM MANAGER SIX SIGMA Routine physical examination HIV-1 HIV-2 ANTIBODY + HIV P24 AG PANEL Routine 07/07/2021 11:19 AM MANAGER SIX SIGMA Routine physical examination HEPATITIS C AB W RFLX VERIFICATION Routine 06/01/2015 7:43 AM CDT MAMMO BILAT SCREENING Routine 08/23/2011 7:59 AM MANAGER SIX SIGMA Family history of breast cancer in first degree relative from Last 3 Months or Most Recently Relevant to Health Maintenance Results * HIV-1 HIV-2 ANTIBODY + HIV P24 AG PANEL (07/07/2021 11:19 AM MANAGER SIX SIGMA) HIV Screen 4th Generation w Reflex Non Reactive Non Reactive [facility] INSURANCE BILL Blood BLOOD SPECIMEN / Unknown 07/07/2021 11:19 AM MANAGER SIX SIGMA 07/07/2021 Narrative Resulting Agency Comment Lab [facility] performed at: [facility] [address] ??[facility] [id number] Azar Braxton MD LAB - CHEMISTRY [facility] INSURANCE BILL [address] [place] [address] * (ABNORMAL) LIPID PROFILE (07/07/2021 11:19 AM MANAGER SIX SIGMA) Cholesterol 232(H) <200 mg/dL [facility] INSURANCE BILL Triglycerides 134 <150 mg/dL [facility] INSURANCE BILL HDL Cholesterol 58 >40 mg/dL [facility] INSURANCE BILL VLDL Calculated 27 <=30 mg/dL [facility] INSURANCE BILL LDL Calculated 147(H) <130 mg/dL [facility] INSURANCE BILL Blood BLOOD SPECIMEN / Unknown 07/07/2021 11:19 AM MANAGER SIX SIGMA 07/07/2021 Narrative Resulting Agency Comment Lab Testing performed at: [facility] [address] ?? [place] [id number] Azar Braxton MD LAB - CHEMISTRY [facility] INSURANCE BILL [address] [place] [address] * HEPATITIS C AB W RFLX VERIFICATION (06/01/2015 7:43 AM CDT) Hepatitis C Antibody <0.1 0.0 - 0.9 s/co ratio [facility] ([place] 06/01/2015 7:43 AM CDT 06/01/2015 9:18 AM CDT Narrative [facility] ([place] - 06/02/2015 6:15 AM CDT Performed at: ??[address] ??[id number] Wheel Borer: Erasmo Morris PhD, Phone: ??[phone] Annette Singh MD LAB - CHEMISTRY [facility] Performing Organization Address City/[facility]/ZIP Co de Phone Number [facility] ([place]) * MAMMO SCREENING DIGITAL IMAGE BILAT (08/23/2011 7:59 AM MANAGER SIX SIGMA) Anatomical Region Laterality Modality Breast Bilateral Mammography 08/23/2011 12:0 7 PM MANAGER SIX SIGMA Narrative 08/23/2011 12:27 PM MANAGER SIX SIGMA DIGITAL BILATERAL SCREENING MAMMOGRAMS WITH CAD CORRELATION DATE: August 23, 2011 PREVIOUS EXAM DATE: None; baseline examination. INDICATION: Screening, multiple family members including first degree relatives with history of breast cancer. TECHNIQUE: Bilateral craniocaudad (CC) and mediolateral oblique (MLO) views. The study was interpreted with the aid of CAD. ?? TECHNOLOGIST: RT Greyson(RM) TISSUE DENSITY: Extremely dense breasts, which limits sensitivity of mammography for detection of breast cancer. FINDINGS: There are no worrisome mass lesions or microcalcifications demonstrated throughout either breast. There is diffuse, extremely dense, nodular fibroglandular breast tissue. ASSESSMENT: (BI-RADS 1) Negative RECOMMENDATIONS: Repeat baseline examination at 34 years of age, or additional screening as justified by patient's underlying risk factors. The above findings should be correlated with physical examination. ??A relatively nonspecific study should not preclude additional evaluation if suspicious findings are present clinically. [facility] [employer] Certified Facility Procedure Note Jatinder Roche MD - 08/23/2011 DIGITAL BILATERAL SCREENING MAMMOGRAMS WITH CAD CORRELATION DATE: August 23, 2011 PREVIOUS EXAM DATE: None; baseline examination. INDICATION: Screening, multiple family members including first degree relatives with history of breast cancer. TECHNIQUE: Bilateral craniocaudad (CC) and mediolateral oblique (MLO) views. The study was interpreted with the aid of CAD. TECHNOLOGIST: RT Greyson() TISSUE DENSITY: Extremely dense breasts, which limits sensitivity of mammography for detection of breast cancer. FINDINGS: There are no worrisome mass lesions or microcalcifications demonstrated throughout either breast. There is diffuse, extremely dense, nodular fibroglandular breast tissue. ASSESSMENT: (BI-RADS 1) Negative RECOMMENDATIONS: Repeat baseline examination at 34 years of age, or additional screening as justified by patient's underlying risk factors. The above findings should be correlated with physical examination. A relatively nonspecific study should not preclude additional evaluation if suspicious findings are present clinically. [facility] [employer] Certified Facility Daja Orr MD MAMMO ORDERABLES from Last 3 Months or Most Recently Relevant to Health Maintenance Advance Directives * FULL RESUSCITATION (Latest Code Status on File) Date Activated Date Inactivated Comments 04/03/2011 3:58 PM 04/08/2011 4:57 AM Care Teams Liquid Natural Gas Plant Operator Relationship Specialty Start Date End Date Azar Braxton MD [address] [address] PCP - General Family Medicine 07/07/21
--- OUTSIDE RECORDS SUMMARY | 2024-07-30 14:06 | XMS_ITS | Encounter Summary ---
Author Organization [facility] Address [address] [place] [address] Care Team Providers Care Track And Field Coach Name Role Phone Avery Hidalgo DO Primary Care Provider [phone] Reason for Visit * Reason Onset Date Comments UTI 05/29/2018 Encounter Details Date Type Department Care Team (Late st Contact Info) Description 05/29/2018 Telephone [facility] Medical [facility] - Internal Medicine [address] [place] [address] Avery Hidalgo DO [address] [place] [address] UTI Social History Tobacco Use Types Packs/Day Years Used Date Smoking Tobacco: Never Smokeless Tobacco: Never Alcohol Use Standard Drinks/Week Comments Yes 0 (1 standard drink = 0.6 oz pur e alcohol) social - rare Sex and Gender Information Value Date Recorded Sex Assigned at Not on file Gender Identity Female 08/19/2022 7:56 AM PHYSICAL THERAPY TEACHER Sexual Orientation Not on file documented as of this encounter Miscellaneous Notes * Telephone Encounter - Agnes Smith MA - 05/29/2018 12:41 PM CDT Pt scheduled per PCP instruction. * Telephone Encounter - Avery Hidalgo DO - 05/29/2018 12:25 PM CDT Due to duration of illness will need appointment to see me tomorrow * Telephone Encounter - Molly Potter - 05/29/2018 11:11 AM CDT URINARY TRIAGE 1) What are your urinary symptoms? Frequency painful 2) When did symptoms start? Monday 3) Rate the pain associated with the urinary symptom. 12/21 4) Describe the pain. burning and pressure 5) Do you have any other associating symptoms? Low back pain 6) Is there a known history of urinary problems, BPH, frequent UTI's, etc.? Yes If yes what are they? uti 7) Have you tried any medications or treatments thus far for your symptoms? Water,and cranberry juice 8) Last OV? 03/31/17 Was last OV in relation to concern today or previously treated? No Was any medication/treatment already prescribed? No Allergies Allergen Reactions ??? Latex Itching Red and swollen ??? Reglan [Metoclopramide] Made her insane , got shaky ??? Tdap [Adacel] Unknown documented in this encounter Plan of Treatment Not on file documented as of this encounter Visit Diagnoses Not on filedocumented in this encounter Care Teams Track And Field Coach Relationship Specialty Start Date End Date Avery Hidalgo DO PCP - General Family Medicine 08/26/15 03/25/20 documented as of this encounter
--- OUTSIDE RECORDS SUMMARY | 2024-07-30 14:06 | XMS_ITS | Encounter Summary ---
Author Organization [facility] Address [address] [place] [address] Care Team Providers Care Ship Carpenter Name Role Phone Avery Hidalgo DO Primary Care Provider [phone] Reason for Visit * Reason Onset Date Comments Medication Request 03/03/2020 Encounter Details Date Type Department Care Team (Late st Contact Info) Description 03/03/2020 Telephone [facility] Medical [facility] - Family Medicine [address] [place] [id number] Avery Hidalgo DO [address] [place], [place] [id number] Medication Request Social History Tobacco Use Types Packs/Day Years Used Date Smoking Tobacco: Never Smokeless Tobacco: Never Alcohol Use Standard Drinks/Week Comments Yes 0 (1 standard drink = 0.6 oz pur e alcohol) social - rare Sex and Gender Information Value Date Recorded Sex Assigned at Not on file Gender Identity Female 08/19/2022 7:56 AM CHILD SUPPORT SPECIALIST Sexual Orientation Not on file documented as of this encounter Miscellaneous Notes * Telephone Encounter - Molly Potter - 03/03/2020 1:53 PM CDT Called patient and gave her the information below,and she hung up. * Telephone Encounter - Twin Yeboah MD - 03/03/2020 1:49 PM CDT Issues having any symptoms she will need to be seen at the local emergency room were her testing was done. 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. She states the occupational health department at [employer] told her to contact her primary care physicianso they can send out a inhaler. I let patient know I would ask but she has not been seen in our office since 01/04/17. documented in this encounter Plan of Treatment Not on file documented as of this encounter Visit Diagnoses Not on filedocumented in this encounter Care Teams Ship Carpenter Relationship Specialty Start Date End Date Avery Hidalgo DO PCP - General Family Medicine 08/26/15 03/25/20 documented as of this encounter
--- OUTSIDE RECORDS SUMMARY | 2024-07-30 14:06 | XMS_ITS | Encounter Summary ---
Author Organization [facility] Address [address] [place] [address] Care Team Providers Care Syrup Mixer Assistant Name Role Phone Azar Braxton MD Primary Care Provider [phone] Azar Braxton MD Unavailable [phone] Encounter Details Date Type Department Care Team (Latest Contact Info) Description 08/18/2022 Travel Social History Tobacco Use Types Packs/Day Years Used Date Smoking Tobacco: Never Smokeless Tobacco: Never Alcohol Use Standard Drinks/Week Comments Yes 0 (1 standard drink = 0.6 oz pur e alcohol) social - rare PHQ-2 Answer Date Recorded PHQ2 TOTAL SCORE 0 08/19/2022 Sex and Gender Information Value Date Recorded Sex Assigned at Not on file Gender Identity Female 08/19/2022 7:56 AM TELECASTING ENGINEER Sexual Orientation Not on file COVID-19 Exposure Response Date Recorded In the last 10 days, have yo u been in contact with someone who was confirmed or suspected to have Coronavirus/COVID-19? No / Unsure 08/18/2022 10:37 AM TELECASTING ENGINEER documented as of this encounter Plan of Treatment Not on file documented as of this encounter Visit Diagnoses Not on filedocumented in this encounter Care Teams Syrup Mixer Assistant Relationship Specialty Start Date End Date Azar Braxton MD [address] [address] PCP - General Family Medicine 07/07/21 Azar Braxton MD [address] [address] PCP - Attributed-[employer] 11/12/21 08/31/22 documented as of this encounter
--- OUTSIDE RECORDS SUMMARY | 2024-07-30 14:06 | XMS_ITS | Encounter Summary ---
Author Organization [facility] Address [address] [facility] [place] [address] Care Team Providers Care Gridcap Machine Operator Name Role Phone Azar Braxton MD Primary Care Provider Reason for Referral * Cardiac (Routine) - Closed Specialty Diagnoses / Procedures Referred By Contac t Referred To Contact Cardiology Diagnoses Palpitations Procedures ECHO TRANSTHORACIC WA TTE W/DOPPLER, COMPLETE WA TTE W/O DOPPLER, Ruben Guzmán MD [address] [facility] [employer] [address] [place] [address] [address] Referral ID Status Reason Start Date Expiration Date Visits Re quested Visits Authorized [id number] Closed 11/07/2022 12/22/2022 1 1 Reason for Visit * Cardiac (Routine) - Closed Specialty Diagnoses / Procedures [facility] Referred To Contact Cardiology Diagnoses Palpitations Procedures ECHO TRANSTHORACIC WA TTE W/DOPPLER, COMPLETE WA TTE W/O DOPPLER, Ruben Guzmán MD [address] [place] [address] [address] Referral ID Status Reason Start Date Expiration Date Visits Re quested Visits Authorized [id number] Closed 11/07/2022 12/22/2022 1 1 Encounter Details Date Type Department Care Team (Latest Contact Info) Description 11/11/2022 7:53 AM CDT - 11/11/2022 11:59 PM CDT Hospital Encounter [facility] [address] [place] [address] Ruben Palumbo MD [address] [place] [phone] Discharge Disposition: Home or Self Care Social [...] file Gender Identity Female 08/19/2022 7:56 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 Sexual Orientation Not on file documented as of this encounter Last Filed Vital Signs Vital Sign Reading Time Taken Comments Blood Pressure 124/78 11/11/2022 8:30 AM CDT Pulse - - Temperature - - Respiratory Rate - - Oxygen Saturation - - Inhaled Oxygen Concentration - - Weight 63.5 kg (140 lb) 11/11/2022 8:30 AM CDT Height 154.9 cm (5' 1 ) 11/11/2022 8:30 AM CDT Body Mass Index 26.45 11/11/2022 8:30 AM CDT documented in this encounter Medications at Time of Discharge Medication Sig Dispensed Refills Start Date End Date ARIPiprazole (Abilify) 2 MG tablet clonazePAM (KLONOPIN) 0.5 MG tablet Take 1 (one) tablet by mouth 2 times daily DULoxetine (CYMBALTA) 60 MG capsule Take 1 (one) capsule by mouth once daily 5 11/13/2015 JOLESSA 0.15-0.03 MG tablet 06/23/2021 lamoTRIgine (LaMICtal) 100 MG tablet 08/21/2022 metoprolol succinate XL 24hr (Toprol XL) 25 MG tablet TAKE 1 TABLET BY MOUTH EVERY DAY 90 tablet 3 10/13/2022 traZODone (DESYREL) 50 MG tablet 05/09/2020 documented as of this encounter Progress Notes * Ruben Palumbo MD - 11/11/2022 11:59 PM CDT Normal LV function Mild MR - not serious, can check with echo in 2 years documented in this encounter Plan of Treatment Not on file documented as of this encounter Procedures Procedure Name Priority Date/Time Associated Diagnosis Comments ECHO COMPLETE Routine 11/11/2022 8:40 AM CDT Supraventricular tachycardia documented in this encounter Results * ECHO COMPLETE (11/11/2022 8:40 AM CDT) BSA 1.7449817 [id number] m2 [facility]SM CV FUJI PACS LV biplane EF 60 % [facility]SM CV FUJI PACS LV A2C EF 63 % [facility] CV FUJ I PACS LV A4C EF 60 % SSM CV FUJ I PACS LVOT stroke vol 53.16 cm3 SSM CV FUJI PACS LV stroke vol 2D teich 33.647 ml [facility]SM CV FUJI PACS LV stroke vol index A4C MOD 34 ml [facility]SM CV FUJI PACS LVIDd 3.63 3.5 - 6.0 cm [facility]SM CV FUJI PACS LVIDs 2.48 2.1 - 4.0 cm [facility]SM CV FUJI PACS IVSd 2D 0.805 cm [facility]SM CV FUJ I PACS LVPWd 0.84 cm [facility]SM CV FUJ I PACS Fractional Shortening 2D 32 28 - 44 % [facility]SM CV FUJI PACS LV ESV BP 21 mL [facility]SM CV FUJ I PACS LV ESV index BP 12.6 mL/m2 [facility]SM CV FUJI PACS LV ESV A2C 23 mL SSM CV FU JI PACS LV EDV BP 52 mL SSM CV FUJ I PACS LV ESV A4C 18 mL SSM CV FU JI PACS LV EDV index BP 31.1 mL/m2 SSM CV FUJI PACS LV EDV A2C 48 mL SSM CV FU JI PACS LV EDV A4C 57 mL SSM CV FU JI PACS LV EDV A/L A4C 57.337 mL SSM C V FUJI PACS LVOT diam 1.8 cm SSM CV FUJ I PACS LVOT area 2.54 cm2 SSM CV FUJ I PACS LV RWT 0.465 [facility]SM CV FUJ I PACS LV Flores A4C 7.11 cm SSM CV F UJI PACS LV Area Flores A2C 20.2 cm2 SSM CV FUJI PACS LV Area Flores A4C 21.9 cm2 SSM CV FUJI PACS MV E pk dwaine 89.3 cm/s SSM CV F UJI PACS MV A pk dwaine 88.4 cm/s SSM CV F UJI PACS MV E' lateral dwaine 16 cm/s SS M CV FUJI PACS MV DT 169 ms SSM CV FUJ I PACS MV E' septal dwaine 10.5 cm/s SSM CV FUJI PACS LA vol BP 30 mL SSM CV FUJ I PACS LVOT pk dwaine 1.16 m/s SSM CV F UJI PACS LVOT mn dwaine 0.0559010 230385190 cm/s SSM CV FUJI PACS LVOT mn grad 3.0 mmHg SSM CV FUJI PACS LA size 3 cm SSM CV FUJ I PACS AV mn grad 4 mmHg SSM CV FU JI PACS AV pk grad 8 mmHg SSM CV FU JI PACS AV mn dwaine 0.97 m/s SSM CV FUJ I PACS AV pk dwaine 1.38 m/s SSM CV FUJ I PACS AV VTI 25.4 cm SSM CV FUJ I PACS LVOT pk grad 5 mmHg SSM CV FUJI PACS LVOT VTI 20.9 cm SSM CV FUJ I PACS AV area planimetry 2.09 cm2 SSM CV FUJI PACS AV area index 1.3 cm2/m2 SSM CV FUJI PACS AV area cont VTI 2.1 cm2 SSM CV FUJI PACS AV area pk dwaine 2.1 cm2 SSM C V FUJI PACS AV Doppler dwaine index pk dwaine 0.84 SSM CV FUJI PACS MV PHT 49 ms SSM CV FUJ I PACS MV area PHT 4.49 cm2 SSM CV F UJI PACS TR pk dwaine 181.0 cm/s SSM CV FUJ I PACS sPAP 16.1 mmHg SSM CV FUJ I PACS RVSP 16.1 mmHg SSM CV FUJ I PACS RAP 3.0 mmHg SSM CV FUJ I PACS TR pk grad 13 mmHg SSM CV FU JI PACS PV pk dwaine 103 cm/s SSM CV FUJ I PACS PV pk grad 4 mmHg SSM CV FU JI PACS Sinus of Valsalva 2.40 cm SS M CV FUJI PACS LV mass index 50.0 g/m2 SSM CV FUJI PACS AV dwaine ratio 0.84 SSM CV FUJI PACS LA ESV A4C MOD Index 17 ml/m2 SSM CV FUJI PACS LA ESV A2C MOD Index 17 ml/m2 SSM CV FUJI PACS LA vol BP A-L 32.271 SSM CV FUJI PACS LA AREA (2C) 11.2 SSM CV FUJI PACS LA length 2C 3.54 cm SSM CV FUJI PACS LA AREA (4C) 12 SSM CV FUJI PACS Dimensionless Index 0.823 SSM CV FUJI PACS LVIDs index 1.48 cm/m2 SSM CV F UJI PACS LV LVIDd index 2.17 cm/m2 SSM C V FUJI PACS Systolic Blood Pressure 124 SSM CV FUJI PACS MV E/e' septal 8.5 SSM C V FUJI PACS MV E/e' lateral 5.6 SSM CV FUJI PACS LA ESV INDEX (BP) 17.94 ml/m2 SS M CV FUJI PACS Anatomical Region Laterality Modality Ultrasound Narrative 11/11/2022 6:39 PM CDT ?Left??Ventricle: Left ventricle size is normal. Normal wall thickness. Normal systolic function. EF by 2D Membreno biplane is 60%. Normal wall motion. Normal diastolic function. ?Mitral Valve: Valve structure is normal. No restricted motion. Mild regurgitation. No stenosis. ?Tricuspid Valve: Valve structure is normal. No restricted motion. Mild regurgitation. The pulmonary artery systolic pressure is normal. RVSP is 16.1 mmHg. No stenosis. Left Ventricle Left ventricle size is normal. Normal wall thickness. Normal systolic function. EF by 2D Membreno biplane is 60%. Normal wall motion. Normal diastolic function. Right Ventricle Right ventricle size is normal. Normal systolic function. Left Atrium Left atrium size is normal. Right Atrium Right atrium size is normal. IVC/SVC IVC diameter is less than or equal to 21 mm and decreases greater than 50% during inspiration; therefore the estimated right atrial pressure is normal (~3 mmHg). Mitral Valve Valve structure is normal. No restricted motion. Mild regurgitation. No stenosis. Tricuspid Valve Valve structure is normal. No restricted motion. Mild regurgitation. The pulmonary artery systolic pressure is normal. RVSP is 16.1 mmHg. No stenosis. Aortic Valve Not well visualized. No regurgitation. No stenosis. Pulmonic Valve Valve structure is normal. No restricted motion. No regurgitation. No stenosis. Main pulmonary artery size is normal. Ascending Aorta Normal sized sinus of Valsalva (aortic root) and ascending aorta. Pericardium No pericardial effusion. Study Details Study quality was adequate. A complete 2D, color Doppler, spectral Doppler and M-mode echocardiogram was performed. The apical, parasternal, subcostal and suprasternal views were obtained. History: SVT Ruben Palumbo MD ECHO CUPID documented in this encounter Visit Diagnoses Diagnosis Supraventricular tachycardia Palpitations documented in this encounter Care Teams Gridcap Machine Operator Relationship Specialty Start Date End Date Azar Braxton MD [address] [facility] [place] [address] PCP - General Family Medicine 07/07/21 documented as of this encounter
--- OUTSIDE RECORDS SUMMARY | 2024-07-30 14:06 | XMS_ITS | Encounter Summary ---
Author Organization [facility] Address [address] [facility] [place] [address] Care Team Providers Care Scientific Helper Name Role Phone Azar Braxton MD Primary Care Provider [phone] Reason for Visit * Reason Onset Date Comments Physical 09/30/2022October Appointmen t for Employer Employment Physical 09/30/2022 Encounter Details Date Type Department Care Team (Late st Contact Info) Description 09/30/2022 Telephone [facility] - Family Medicine [address] [place] [address] [place] [address] [place] [address] Physical (October Appointment for Employer); Employment Physical Social History Tobacco Use Types Packs/Day Years Used Date Smoking Tobacco: Never Smokeless Tobacco: Never Alcohol Use Standard Drinks/Week Comments Yes 0 (1 standard drink = 0.6 oz pur e alcohol) social - rare PHQ-2 Answer Date Recorded PHQ2 TOTAL SCORE 0 08/19/2022 Sex and Gender Information Value Date Recorded Sex Assigned at Not on file Gender Identity Female 08/19/2022 7:56 AM SYSTEMS SECURITY CONSULTANT Sexual Orientation Not on file documented as of this encounter Miscellaneous Notes * Telephone Encounter - oMlly Nguyễn - 09/30/2022 12:21 PM SYSTEMS SECURITY CONSULTANT Who is calling? Self What is the reason for call? Patient is wanting to schedule an Earlier Appointment due to: Reason for Visit - [employer]BS; Employment Physical - no previous; verify fit to work Next Available with PCP - 11/14, scheduled appointment and added to wait list but prefer sooner if becomes available no sooner office visits for October; prefer October for employer Next Available with SUPERVISOR [employer] - Unable to sched with SUPERVISOR HE[employer]QU[employer]MENT for wellness visits due to PCP preference sheet. Expected Response from the Clinic? ( ex. Call back, etc..) Patient will keep schedule for 11/14 butcall back if sooner October appointment becomes available - needed for employer EMS SECURITY CONSULTANT documented in this encounter Plan of Treatment Not on file documented as of this encounter Visit Diagnoses Not on filedocumented in this encounter Care Teams Scientific Helper Relationship Specialty Start Date End Date Azar Braxton MD [address] [address] PCP - General Family Medicine 07/07/21 documented as of this encounter
--- OUTSIDE RECORDS SUMMARY | 2024-07-30 14:06 | XMS_ITS | Encounter Summary ---
Author Organization [facility] Address [address] [place] [address] Care Team Providers Care Oyster Grower Name Role Phone Azar Braxton MD Primary Care Provider [phone] Azar Braxton MD Unavailable [phone] Encounter Details Date Type Department Care Team (Latest Contact Info) Description 03/30/2022 Travel Social History Tobacco Use Types Packs/Day Years Used Date Smoking Tobacco: Never Smokeless Tobacco: Never Alcohol Use Standard Drinks/Week Comments Yes 0 (1 standard drink = 0.6 oz pur e alcohol) social - rare PHQ-2 Answer Date Recorded PHQ2 TOTAL SCORE 0 07/07/2021 Sex and Gender Information Value Date Recorded Sex Assigned at Not on file Gender Identity Female 08/19/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
--- OUTSIDE RECORDS SUMMARY | 2024-07-30 14:06 | XMS_ITS | Encounter Summary ---
Author Organization [facility] Address [address] [facility] [place] [address] Care Team Providers Care Golf Club Assembler Name Role Phone Azar Braxton MD Primary Care Provider [phone] Azar Braxton MD Unavailable [phone] Reason for Visit * Reason Comments Palpitations 6-8 months RAPID HEART RATE Encounter Details Date Type Department Care Team (Late st Contact Info) Description 08/19/2022 2:30 PM ASSOCIATE PROFESSOR OF ENGINEERING Office Visit [facility] Medical [facility] - Family Medicine [address] [place] [address] Molly Angeles, BEVERAGE SERVER-[facility] [address] [place] [address] Palpitations (Primary Dx) Social History Tobacco Use Types Packs/Day Years Used Date Smoking Tobacco: Never Smokeless Tobacco: Never Alcohol Use Standard Drinks/Week Comments Yes 0 (1 standard drink = 0.6 oz pur e alcohol) social - rare PHQ-2 Answer Date Recorded PHQ2 TOTAL SCORE 0 08/19/2022 Sex and Gender Information Value Date Recorded Sex Assigned at Not on file Gender Identity Female 08/19/2022 7:56 AM ASSOCIATE PROFESSOR OF ENGINEERING Sexual Orientation Not on file COVID-19 Exposure Response Date Recorded In the last 10 days, have yo u been in contact with someone who was confirmed or suspected to have Coronavirus/COVID-19? No / Unsure 08/18/2022 10:37 AM ASSOCIATE PROFESSOR OF ENGINEERING documented as of this encounter Last Filed Vital Signs Vital Sign Reading Time Taken Comments Blood Pressure 121/78 08/19/2022 2:34 PM ASSOCIATE PROFESSOR OF ENGINEERING Pulse 94 08/19/2022 2:34 PM ASSOCIATE PROFESSOR OF ENGINEERING Temperature - - Respiratory Rate 20 08/19/2022 2:34 PM ASSOCIATE PROFESSOR OF ENGINEERING Oxygen Saturation 99% 08/19/2022 2:34 PM ASSOCIATE PROFESSOR OF ENGINEERING Inhaled Oxygen Concentration - - Weight 60.9 kg (134 lb 3.2 oz) 08/19/2022 2:34 P M ASSOCIATE PROFESSOR OF ENGINEERING Height 154.9 cm (5' 1 ) 08/19/2022 2:34 PM ASSOCIATE PROFESSOR OF ENGINEERING Body Mass Index 25.36 08/19/2022 2:34 PM ASSOCIATE PROFESSOR OF ENGINEERING documented in this encounter Progress Notes * Molly Angeles, BEVERAGE SERVER-TENTMAKER - 08/19/2022 2:30 PM CST SUBJECTIVE Chief Complaint Patient presents with ??? Palpitations 6-8 months ??? RAPID HEART RATE Pt with palpitations intermittently x 6-8 months. Happens every 2-3 weeks. Was lasting just a few seconds, episodes getting longer. Reports yesterday HR was as high as 204 for 4-6 minutes, was lightheaded at that time. 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 Denies CP, SOB, dizziness/lightheadedness other than during episodes. ASSESSMENT/PLAN 1. Palpitations - new problem to clinic - intermittent palpitations every few weeks with reported episode of palpitations/lightheadedness lasting 4-6 minutes yesterday - EKG today - NSR with possible left atrial enlargement - will check CBC, CMP, TSH - event monitor ordered x 1 month as episodes are only occurring every 2-3 weeks - further plan of care pending labs/even monitor results - discussed symptoms that warrant emergent evaluation- chest pain, SOB, persistent palpitations, persistent dizziness - EKG 12-LEAD; Future - MT ELECTROCARDIOGRAM, COMPLETE - TSH REFLEX FREE T4 - CBC WITH DIFFERENTIAL - COMPREHENSIVE METABOLIC PANEL - EVENT MONITOR - EXTENDED TELEMETRY; Future OBJECTIVE BP 121/78 Pulse 94 Resp 20 Ht 1.549 m (5' 1 ) Wt 60.9 kg (134 lb 3.2 oz) SpO2 99% Physical Exam (6+): Physical Exam Vitals reviewed. Constitutional: General: She is awake. HENT: Head: Normocephalic and atraumatic. Eyes: General: Lids are normal. Conjunctiva/sclera: Conjunctivae normal. Cardiovascular: Rate and Rhythm: Normal rate and regular rhythm. Heart sounds: Normal heart sounds, S1 normal and S2 normal. No murmur heard. Pulmonary: Effort: Pulmonary effort is normal. No tachypnea, accessory muscle usage, respiratory distress or retractions. Breath sounds: Normal breath sounds. No stridor. No decreased breath sounds, wheezing, rhonchi or rales. Musculoskeletal: Right lower leg: No edema. Left lower leg: No edema. Lymphadenopathy: Cervical: No cervical adenopathy. Skin: General: Skin is warm and dry. Findings: No rash. Neurological: Mental Status: She is alert and oriented to person, place, and time. Gait: Gait is intact. Psychiatric: Behavior: Behavior is cooperative. CIATE PROFESSOR OF ENGINEERING documented in this encounter Plan of Treatment Not on file documented as of this encounter Procedures Procedure Name Priority Date/Time Associated Diagnosis Comments CBC W AUTO DIFFERENTIAL Routine 08/19/2022 3:05 PM ASSOCIATE PROFESSOR OF ENGINEERING Palpitations TSH REFLEX FREE T4 Routine 08/19/2022 3: 04 PM ASSOCIATE PROFESSOR OF ENGINEERING Palpitations COMPREHENSIVE METABOLIC PANEL Routine 08/19/2022 3:04 PM ASSOCIATE PROFESSOR OF ENGINEERING Palpitations documented in this encounter Results * (ABNORMAL) CBC WITH DIFFERENTIAL (08/19/2022 3:05 PM ASSOCIATE PROFESSOR OF ENGINEERING) WBC 5.6 4.4 - 10.7 x10E9/L [facility] INSURANCE BILL RBC 4.53 3.80 - 5.20 x10E12/L [facility] INSURANCE BILL Hemoglobin 13.1 12.0 - 15.6 gm/dL [facility] INSURANCE BILL Hematocrit 40.4 35.9 - 45.5 % [facility] INSURANCE BILL MCV 89.2 80.7 - 98.3 fl [facility] INSURANCE BILL MCH 28.9 26.7 - 34.0 pg [facility] INSURANCE BILL MCHC 32.4 30.8 - 35.9 gm/dL [facility] INSURANCE BILL RDW 13.1 12.1 - 14.9 % [facility] INSURANCE BILL Platelet Count 341 153 - 416 x10E9/L [facility] INSURANCE BILL Comment:MPV FL BLOOD ([facility]) 10.4 fl 9.4-12.9 Granulocytes % 28.7(L) 44.0 - 73.0 % [facility] INSURANCE BILL Lymphocytes % 52.7(H) 20.0 - 43.0 % [facility] INSURANCE BILL Monocytes % 10.9 5.0 - 13.0 % [facility] INSURANCE BILL Eosinophils % 7.2(H) 0.0 - 6.0 % [facility] INSURANCE BILL Basophils % 0.5 0.0 - 2.0 % [facility] INSURANCE BILL Granulocytes Absolute 1.60(L) 2.01 - 7.14 x10E9/L [facility] INSURANCE BILL Lymphocytes Absolute 2.94 1.07 - 3.94 x10E9/L [facility] INSURANCE BILL Monocytes Absolute 0.61 0.26 - 1.07 x10E9/L [facility] INSURANCE BILL Eosinophils Absolute 0.40 0 - 0.47 x10E9/L [facility] INSURANCE BILL Basophils Absolute 0.03 0 - 0.08 x10E9/L [facility] INSURANCE BILL Immature Granulocytes 0.0 0 - 1 % [facility] INSURANCE BILL Immature Granulocytes Absolute 0.00 0.00 - 0.06 x10E9/L [facility] INSURANCE BILL nRBC 0 /100 WBC [facility] INSURANCE BILL Blood BLOOD SPECIMEN / Unknown 08/19/2022 3:05 PM ASSOCIATE PROFESSOR OF ENGINEERING 08/19/2022 Narrative Resulting Agency Comment Lab Testing performed at: [address] ?? [place] [id number] Molly Angeles BEVERAGE SERVER-TENTMAKER LAB - HEMATO LOGY ORDERABLES [facility] INSURANCE BILL [address] [place] [address] * (ABNORMAL) COMPREHENSIVE METABOLIC PANEL (08/19/2022 3:04 PM ASSOCIATE PROFESSOR OF ENGINEERING) [facility] Signature Glucose 121(H) 70 - 105 mg/dL [facility] INSURANCE BILL BUN 14 7 - 18.7 mg/dL [facility] INSURANCE BILL Creatinine 0.82 0.57 - 1.11 mg/dL [facility] INSURANCE BILL eGFR by CKD-EPI >90 >=90 mL/min/1.7 3 m2 [facility] INSURANCE BILL Sodium 137 136 - 145 mmol/L [facility] INSURANCE BILL Potassium 4.1 3.5 - 5.1 mmol/L [facility] INSURANCE BILL Chloride 103 98 - 107 mmol/L [facility] INSURANCE BILL CO2 24 23 - 31 mmol/L [facility] INSURANCE BILL Calcium 9.6 8.4 - 10.4 mg/dL [facility] INSURANCE BILL Protein Total 7.4 6.4 - 8.3 gm/dL [facility] INSURANCE BILL Albumin 4.0 3.5 - 5.2 gm/dL [facility] INSURANCE BILL Bilirubin Total 0.3 0.2 - 1.2 mg/dL [facility] INSURANCE BILL Alkaline Phosphatase 78 40 - 150 U/L [facility] INSURANCE BILL AST 21 5 - 34 U/L [facility] INSURANCE BILL ALT 25 0 - 61 U/L [facility] INSURANCE BILL Blood BLOOD SPECIMEN / Unknown 08/19/2022 3:04 PM ASSOCIATE PROFESSOR OF ENGINEERING 08/19/2022 Narrative Resulting Agency Comment Lab Testing performed at: [address] ?? [place] [id number] Molly Angeles BEVERAGE SERVER-TENTMAKER LAB - CHEMIS TRY ORDERABLES [facility] INSURANCE BILL [address] [place] [address] * TSH REFLEX FREE T4 (08/19/2022 3:04 PM ASSOCIATE PROFESSOR OF ENGINEERING) TSH 0.721 0.350 - 4.940 uIU/mL [facility] INSURANCE BILL Blood BLOOD SPECIMEN / Unknown 08/19/2022 3:04 PM ASSOCIATE PROFESSOR OF ENGINEERING 08/19/2022 Narrative Resulting Agency Comment Lab Testing performed at: [address] ?? [place] [id number] Molly Romanof BEVERAGE SERVER-TENTMAKER LAB - CHEMIS TRY ORDERABLES [facility] INSURANCE BILL [address] [place] [address] documented in this encounter Visit Diagnoses Diagnosis Palpitations- Primary documented in this encounter Care Teams Golf Club Assembler Relationship Specialty Start Date End Date Azar Braxton MD [address] [address] PCP - General Family Medicine 07/07/21 Azar Braxton MD [address] [address] PCP - Attributed-[employer] Commercial STL 11/12/21 08/31/22 documented as of this encounter
--- OUTSIDE RECORDS SUMMARY | 2024-07-30 14:06 | XMS_ITS | Encounter Summary ---
Author Organization [facility] Address [address] [place] [address] Care Team Providers Care Triage Registered Nurse Name Role Phone Azar Braxton MD Primary Care Provider [phone] Encounter Details Date Type Department Care Team (Late st Contact Info) Description 10/07/2022 Orders Only [facility] Medical Group - Family Medicine [facility] [place] [address] Molly Angeles, RECYCLING CREW SUPERVISOR-SADDLE AND HARNESS MAKER [address] [place] [address] Palpitations Social History Tobacco Use Types Packs/Day Years Used Date Smoking Tobacco: Never Smokeless Tobacco: Never Alcohol Use Standard Drinks/Week Comments Yes 0 (1 standard drink = 0.6 oz pur e alcohol) social - rare PHQ-2 Answer Date Recorded PHQ2 TOTAL SCORE 0 08/19/2022 Sex and Gender Information Value Date Recorded Sex Assigned at Not on file Gender Identity Female 08/19/2022 7:56 AM SAMPLER RADIOACTIVE WASTE Sexual Orientation Not on file documented as of this encounter Plan of Treatment Not on file documented as of this encounter Visit Diagnoses Diagnosis Palpitations documented in this encounter Care Teams Triage Registered Nurse Relationship Specialty Start Date End Date Azar Braxton MD [facility] [place] [address] PCP - General Family Medicine 07/07/21 documented as of this encounter
--- OUTSIDE RECORDS SUMMARY | 2024-07-30 14:06 | XMS_ITS | Encounter Summary ---
Author Organization [facility] Address [address] [facility] [place] [address] Care Team Providers Care Laundry Equipment Operator Name Role Phone Avery Hdialgo DO Primary Care Provider [phone] Reason for Visit * Reason Comments Follow-up 3 MO Encounter Details Date Type Department Care Team (Latest Contact Info) Description 03/31/2017 11:30 AM CDT Office Visit [facility] Medical [facility] - Internal Medicine [address] [place], [place] [id number] Avery Hidalgo DO [address] [place], [place] [id number] Gastroesophageal reflux disease, esophagitis presence not specified (Primary Dx); Vitamin D deficiency disease; Hip pain, chronic, left Social History Tobacco Use Types Packs/Day Years Used Date Smoking Tobacco: Never Smokeless Tobacco: Never Alcohol Use Standard Drinks/Week Comments Yes 0 (1 standard drink = 0.6 oz pur e alcohol) social - rare Sex and Gender Information Value Date Recorded Sex Assigned at Not on file Gender Identity Female 08/19/2022 7:56 AM SHRUB GROWER Sexual Orientation Not on file documented as of this encounter Last Filed Vital Signs Vital Sign Reading Time Taken Comments Blood Pressure 104/69 03/31/2017 11:27 AM CDT Pulse 95 03/31/2017 11:27 AM CDT Temperature 36.5 ??C (97.7 ??F) 03/31/2017 11:27 AM C DT Respiratory Rate 12 03/31/2017 11:27 AM CDT Oxygen Saturation 100% 03/31/2017 11:27 AM CDT Inhaled Oxygen Concentration - - Weight 43.5 kg (96 lb) 03/31/2017 11:27 AM CDT Height 154.9 cm (5' 1 ) 03/31/2017 11:27 AM CDT Body Mass Index 18.14 03/31/2017 11:27 AM CDT documented in this encounter Patient Instructions * Patient Instructions* Beryl Chamberlain - 03/31/2017 11:27 AM CDT It is important to Dr. Hidalgo and to me that you to feel that you have received the best care possible today. If for any reason you feel your care was not exceptional please let us know. You may do this by calling and requesting to leave a message for me to return your call or you may also receivea satisfaction survey via e-mail or U.S. Mail. I encourage you to respond to this confidential survey as your feedback helps us provide that exceptional care you deserve. It is very important that you compare your medication list from your visit with actual medications you have at home. If there are any discrepancies or you are uncertain what a certain medication is and why you are taking it please let us know as soon as possible. Thank you for choosing us to provide your healthcare needs! Gabriel Cordoba documented in this encounter Progress Notes * Avery Hidalgo, - 04/02/2017 7:48 PM CDT SUBJECTIVE: Cata Urena is a 31 y.o. female here for follow up of multiple chronic problems. Left hip pain. Chronic issue has reportedly had past trauma with acetabular fracture. Patient now reports increasing discomfort with activity. Denies weakness in the legs or numbness. No new trauma reported reflux. Current meds working well tolerating well with no break thru vitamin-D deficiency. Medication supplement taken daily Other concerns: none Compliance and Risk Factor reduction: Following all dietary, exercise and medication recommendations as directed Review of Systems: Constitutional: No significant weight change, no fever, no increasing fatigue Negative Ears, nose, mouth, and throat: Denies persistent postnasal drip Negative Respiratory: denies productive cough or shortness of breath at rest Negative Cardiovascular: no exertional chest pain or palpitations Negative Gastrointestinal: No nausea or vomitingNegative I have reviewed the patients past medical history,surgical history,family history,problem list,allergies to medications,current medicines and the most recent labs and studies OBJECTIVE: BP 104/69 (BP SITE: LEFT ARM, BP POSITION: SITTING, BP CUFF SIZE: Adult) Pulse 95 Temp 97.7 ??F (Temporal) Resp 12 Ht 1.549 m (5' 1 ) Wt 43.5 kg (96 lb) SpO2 100% BMI 18.14 kg/m2 Wt Readings from Last 3 Encounters: 03/31/17 43.5 kg (96 lb) 01/04/17 44.5 kg (98 lb) 06/22/16 44.4 kg (97 lb 12.8 oz) Temp Readings from Last 3 Encounters: 03/31/17 97.7 ??F (Temporal) 01/04/17 98.4 ??F (Temporal) 06/22/16 98.5 ??F (Temporal) BP Readings from Last 3 Encounters: 03/31/17 104/69 01/04/17 121/79 06/22/16 118/70 Pulse Readings from Last 3 Encounters: 03/31/17 95 01/04/17 83 06/22/16 82 Constitutional. Alert and oriented x 3 , weight reviewed,no fever, no increasing fatigue. Head,eye ; normocephalic, atraumatic. PERRRLA. EOMI ENT Skin: no rashes and warm and dry Neck exam - supple, no significant adenopathy. Thyroid exam reveals thyroid is normal in size without nodules or tenderness. Carotid upstroke normal. Chest: clear to auscultation, no wheezes, rales or rhonchi, symmetric air entry. CVS exam: normal rate, regular rhythm, normal S1, S2, no murmurs, rubs, clicks or gallops. Abdominal exam: soft, nontender, nondistended, no masses or organomegaly. Neuro: moves all present ext well,follows commands Exam of extremities: peripheral pulses normal, no pedal edema, no clubbing or cyanosis TODAY'S IN OFFICE LABS:No results found for this visit on 03/31/17. ASSESSMENT/PLAN: 1. Gastroesophageal reflux disease, esophagitis presence not specified ; Condition stable. New labsordered if indicated and medications refilled. 2. Vitamin D deficiency disease ; Condition stable. New labs ordered if indicated and medications refilled. 3. Hip pain, chronic, left ; Recommend check x-rays current use of ibuprofen in morning recommendation will consider physical therapy eval and treat Outpatient Encounter Prescriptions as of 03/31/2017 Medication Sig Dispense Refill ??? omeprazole (PRILOSEC) 20 MG capsule Take 20 mg by mouth daily before breakfast ??? lamoTRIgine XR 24hr (LAMICTAL XR) 100 MG tablet Take 100 mg by mouth once daily ??? buPROPion (WELLBUTRIN) 100 MG tablet TK 1 T PO QAM 2 ??? QUEtiapine (SEROQUEL) 25 MG tablet TK 1 T PO HS. 0 ? ? AMETHIA 0.15-0.03 &0.01 MG tablet Take 1 Tab by mouth once daily 11 ??? vitamin D3 ([employer] VIT D 5000 HIGH-POTENCY) 5000 UNITS capsule Take 1 Cap by mouth once daily ??? DULoxetine (CYMBALTA) 60 MG capsule Take 1 Cap by mouth once daily 5 ??? clonazePAM (KLONOPIN) 0.5 MG tablet Take 0.5 mg by mouth 2 times daily ??? [DISCONTINUED] famotidine (PEPCID) 40 MG tablet Take 40 mg by mouth once daily ??? [DISCONTINUED] griseofulvin ultramicrosize (LEONARD-PEG) 250 MG tablet Take 1 Tab by mouth once daily 30 Tab 0 No facility-administered encounter medications on file as of 03/31/2017. * Beryl Chamberlain - 03/31/2017 11:33 AM CDT PHQ-2 : Pt. declined depression screening (date): 03/31/17 PHQ-9: documented in this encounter Plan of Treatment Not on file documented as of this encounter Visit Diagnoses Diagnosis Gastroesophageal reflux disease, esophagitis presence not specified- Primary Vitamin D deficiency disease Unspecified vitamin D deficiency Hip pain, chronic, left documented in this encounter Care Teams Laundry Equipment Operator Relationship Specialty Start Date End Date Avery Hidalgo DO PCP - General Family Medicine 08/26/15 03/25/20 documented as of this encounter
--- OUTSIDE RECORDS SUMMARY | 2024-07-30 14:06 | XMS_ITS | Encounter Summary ---
Author Organization [facility] Address [address] [facility] [place] [address] Care Team Providers Care Director Global Sales Name Role Phone Azar Braxton MD Primary Care Provider [phone] Azar Braxton MD Unavailable [phone] Reason for Visit * Reason Onset Date Comments Palpitations 03/30/2022 Encounter Details Date Type Department Care Team (Late st Contact Info) Description 03/30/2022 Telephone [facility] Medical [facility] - Family Medicine [address] [place] [address] Azar Braxton MD [address] [place] [address] Palpitations Social History Tobacco Use Types Packs/Day Years Used Date Smoking Tobacco: Never Smokeless Tobacco: Never Alcohol Use Standard Drinks/Week Comments Yes 0 (1 standard drink = 0.6 oz pur e alcohol) social - rare PHQ-2 Answer Date Recorded PHQ2 TOTAL SCORE 0 07/07/2021 Sex and Gender Information Value Date Recorded Sex Assigned at Not on file Gender Identity Female 08/19/2022 7:56 AM TEST PULLER Sexual Orientation Not on file documented as of this encounter Miscellaneous Notes * Telephone Encounter - Luis Ram RN - 03/30/2022 9:48 AM CDT Reviewing On Line Scheduled Appointment Patient schedule appointment for palpitations on 04/19/2022. Attempted to reach out to patient for further evaluation of symptoms and if needs to be seen sooner. No answer. Plan: Message left for patient to call office back for evaluation. Message sent to PCP documented in this encounter Plan of Treatment Not on file documented as of this encounter Visit Diagnoses Not on filedocumented in this encounter Care Teams Director Global Sales Relationship Specialty Start Date End Date Azar Braxton MD [address] [address] PCP - General Family Medicine 07/07/21 Azar Braxton MD [address] [address] PCP - Attributed-[employer] Commercial STL 11/12/21 08/31/22 documented as of this encounter
--- OUTSIDE RECORDS SUMMARY | 2024-07-30 14:06 | XMS_ITS | Encounter Summary ---
Author Organization [facility] Address [address] [place] [address] Care Team Providers Care Hydrologic Modeler Name Role Phone Azar Braxton MD Primary Care Provider [phone] Azar Braxton MD Unavailable [phone] Encounter Details Date Type Department Care Team (Latest Contact Info) Description 08/19/2022 Travel Social History Tobacco Use Types Packs/Day Years Used Date Smoking Tobacco: Never Smokeless Tobacco: Never Alcohol Use Standard Drinks/Week Comments Yes 0 (1 standard drink = 0.6 oz pur e alcohol) social - rare PHQ-2 Answer Date Recorded PHQ2 TOTAL SCORE 0 08/19/2022 Sex and Gender Information Value Date Recorded Sex Assigned at Not on file Gender Identity Female 08/19/2022 7:56 AM WATER SERVER Sexual Orientation Not on file COVID-19 Exposure Response Date Recorded In the last 10 days, have yo u been in contact with someone who was confirmed or suspected to have Coronavirus/COVID-19? No / Unsure 08/19/2022 3:17 PM WATER SERVER documented as of this encounter Plan of Treatment Not on file documented as of this encounter Visit Diagnoses Not on filedocumented in this encounter Care Teams Hydrologic Modeler Relationship Specialty Start Date End Date Azar Braxton MD [address] [address] PCP - General Family Medicine 07/07/21 Azar Braxton MD [address] [address] PCP - Attributed-[employer] Commercial STL 11/12/21 08/31/22 documented as of this encounter
--- OUTSIDE RECORDS SUMMARY | 2024-07-30 14:06 | XMS_ITS | Encounter Summary ---
Author Organization [facility] Address [address] [facility] [place] [address] Care Team Providers Care Geophysical Operator Name Role Phone Azar Braxton MD Primary Care Provider [phone] Reason for Referral * Evaluate & Treat - Closed Specialty Diagnoses / Procedures Referred By Contryan rand Referred To Contact Cardiology Diagnoses Palpitations Azar Braxton MD [facility] [place] [address] [facility] [place] [address] [facility] [address] [place] [address] Referral ID Status Reason Start Date Expiration Date V isits Requested Visits Authorized [id number] Closed Specialty Services Required 09/26/2022 09/26/2023 1 1 DULER CONVEYOR Encounter Details Date Type Department Care Team (Late st Contact Info) Description 09/26/2022 Orders Only [facility] - Family Medicine [facility] [address] [address] Azar Braxton MD [address] [place], [place] [address] [address] Palpitations Social History Tobacco Use Types [...] file Gender Identity Female 08/19/2022 7:56 AM SCHEDULER CONVEYOR Sexual Orientation Not on file documented as of this encounter Plan of Treatment Scheduled Referrals Name Type Priority Associated Diagnoses Order Schedule AMB REFERRAL TO CARDIOLOGY Outpatient Referral Routine Palpitations 1 Occurrences starting 09/26/2022 until 09/26/2023 documented as of this encounter Visit Diagnoses Diagnosis Palpitations- Primary documented in this encounter Care Teams Geophysical Operator Relationship Specialty Start Date End Date Azar Braxton MD [address] [address] PCP - General Family Medicine 07/07/21 documented as of this encounter
--- OUTSIDE RECORDS SUMMARY | 2024-07-30 14:06 | XMS_ITS | Encounter Summary ---
Author Organization [facility] Address [address] [facility] [place] [address] Care Team Providers Care Lift Driver Name Role Phone Avery Hidalgo DO Primary Care Provider [phone] Reason for Visit * Reason Onset Date Comments Update 03/20/2017 Encounter Details Date Type Department Care Team (Late st Contact Info) Description 03/20/2017 Telephone [facility] Medical [facility] - Internal Medicine [address] [place] [address] Avery Hidalgo DO [address] [place], [place] [id number] Update Social History Tobacco Use Types Packs/Day Years Used Date Smoking Tobacco: Never Smokeless Tobacco: Never Alcohol Use Standard Drinks/Week Comments Yes 0 (1 standard drink = 0.6 oz pur e alcohol) social - rare Sex and Gender Information Value Date Recorded Sex Assigned at Not on file Gender Identity Female 08/19/2022 7:56 AM OIL SPRAYER Sexual Orientation Not on file documented as of this encounter Miscellaneous Notes * Telephone Encounter - Juany Gonzalez D - 03/20/2017 9:06 AM CDT Received incoming call from patient inquiring on where she could go to get her labs done which wereordered by Dr Hidalgo 01/04/2014. Per LEE Smith, Lab orders good for 6 months and patient can goto any [facility]. Patient has been advised of same, and she will have them done this week with a follow up 03/31/[address] Hidalgo. documented in this encounter Plan of Treatment Not on file documented as of this encounter Visit Diagnoses Not on filedocumented in this encounter Care Teams Lift Driver Relationship Specialty Start Date End Date Avery Hidalgo DO PCP - General Family Medicine 08/26/15 03/25/20 documented as of this encounter
--- OUTSIDE RECORDS SUMMARY | 2024-07-30 14:06 | XMS_ITS | Encounter Summary ---
Author Organization [facility] Address [address] [place] [address] Care Team Providers Care Cyber Security Name Role Phone Avery Hidalgo DO Primary Care Provider [phone] Reason for Visit * Reason Onset Date Comments Appointment 03/24/2020 Encounter Details Date Type Department Care Team (Late st Contact Info) Description 03/24/2020 Telephone [facility] Group - GI [address] [place] [address] Shira Sigala APRN-CNP [address] [facility] [address] [place] [address] Appointment Social History Tobacco Use Types Packs/Day Years Used Date Smoking Tobacco: Never Smokeless Tobacco: Never Alcohol Use Standard Drinks/Week Comments Yes 0 (1 standard drink = 0.6 oz pur e alcohol) social - rare Sex and Gender Information Value Date Recorded Sex Assigned at Not on file Gender Identity Female 08/19/2022 7:56 AM CHILI MAKER Sexual Orientation Not on file documented as of this encounter Miscellaneous Notes * Telephone Encounter - Shira Sigala APRN-CNP - 03/24/2020 6:42 PM CDT Received message from pt. She needs appt with Dr. Breen. Called pt back. No answer. Left message to call office or mychart. Left mychart message to the sameinformation. documented in this encounter Plan of Treatment Not on file documented as of this encounter Visit Diagnoses Not on filedocumented in this encounter Care Teams Cyber Security Relationship Specialty Start Date End Date Avery Hidalgo DO PCP - General Family Medicine 08/26/15 03/25/20 documented as of this encounter
--- OUTSIDE RECORDS SUMMARY | 2024-07-30 14:06 | XMS_ITS | Referral Summary ---
Author Organization [email or web address] Address [address] [facility] [place] [address] Care Team Providers Care Route Sales Associate Name Role Phone Azar Braxton MD Primary Care Provider [phone] Source Comments [email or web address],non-owned Affiliates and Associated Physician Practices is amultiple site organization consisting of ambulatory clinics and hospital sitesin [place], [place], [place] and [place]. This disclosure is being madepursuant to the Care Everywhere program and may not contain all information available regarding this patient. Last updated 18.[email or web address] Allergies Active Allergy Reactions Criticality Noted Date [...] 08/26/201507/07 Immunizations Name Administration Dates Next Due OpTier primary monoval ent 12+ yr 0.3mL Purple cap 11/12/2020 INFLUENZA 05/21/2021,05/22/2016,05/14/2011 INFLUENZA VACCINE, CELL CULT URE, QUADR. (FLUCELVAX QUADRIVALENT; 6MO+) (CCIIV4) 05/17/2022,05/15/2020 INFLUENZA VACCINE, QUADR. 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 TDAP (7yrs+) 05/22/2016 TDAP, HISTORIC VACCINE 08/02/2021 Social History Tobacco Use Types Packs/Day Years [...] file Gender Identity Female 08/19/2022 7:56 AM GAME ENGINEER Sexual Orientation Not on file Last Filed Vital Signs Vital Sign Reading Time Taken Comments Blood Pressure 110/78 03/17/2023 1:17 PM CDT Pulse 88 03/17/2023 1:17 PM CDT Temperature 36.9 ??C (98.5 ??F) 03/17/2023 1:17 PM CD T Respiratory Rate 20 08/19/2022 2:34 PM GAME ENGINEER Oxygen Saturation 99% 03/17/2023 1:17 PM CDT Inhaled Oxygen Concentration 100% 2011 6 :05 PM CDT Weight 61.8 kg (136 lb 3.2 oz) 03/17/2023 1:17 P M CDT Height 154.9 cm (5' 1 ) 03/17/2023 1:17 PM CDT Body Mass Index 25.73 03/17/2023 1:17 PM CDT Plan of Treatment Not on file Procedures Procedure Name Priority Date/Time Associated Diagnosis Comments LIPID PROFILE Routine 07/07/2021 11:19 AM GAME ENGINEER Routine physical examination HIV-1 HIV-2 ANTIBODY + HIV P24 AG PANEL Routine 07/07/2021 11:19 AM GAME ENGINEER Routine physical examination HEPATITIS C AB W RFLX VERIFICATION Routine 06/01/2015 7:43 AM CDT MAMMO BILAT SCREENING Routine 08/23/2011 7:59 AM GAME ENGINEER Family history of breast cancer in first degree relative from Last 3 Months or Most Recently Relevant to Health Maintenance Results * HIV-1 HIV-2 ANTIBODY + HIV P24 AG PANEL (07/07/2021 11:19 AM GAME ENGINEER) HIV Screen 4th Generation w Reflex Non Reactive Non Reactive [facility] INSURANCE BILL Blood BLOOD SPECIMEN / Unknown 07/07/2021 11:19 AM GAME ENGINEER 07/07/2021 Narrative Resulting Agency Comment Lab [facility] [address] [facility] ??Pending sale to [facility] [phone] Azar Braxton MD LAB - CHEMISTRY [place]IE [place] [facility] INSURANCE BILL [address] [place] [address] * (ABNORMAL) LIPID PROFILE (07/07/2021 11:19 AM GAME ENGINEER) Cholesterol 232(H) <200 mg/dL [facility] INSURANCE BILL Triglycerides 134 <150 mg/dL [facility] INSURANCE BILL HDL Cholesterol 58 >40 mg/dL [facility] INSURANCE BILL VLDL Calculated 27 <=30 mg/dL [facility] INSURANCE BILL LDL Calculated 147(H) <130 mg/dL [facility] INSURANCE BILL Blood BLOOD SPECIMEN / Unknown 07/07/2021 11:19 AM GAME ENGINEER 07/07/2021 Narrative Resulting Agency Comment Lab Testing performed at: [facility] [address] [facility] ?? [place]ZALE[place] [id number] Azar Braxton MD LAB - CHEMISTRY TIFFANIE WILLS Performing Organization Address City/State/[facility] Co de Phone Number [facility] INSURANCE BILL [address] [place] [address] * HEPATITIS C AB W RFLX VERIFICATION (06/01/2015 7:43 AM CDT) Hepatitis C Antibody <0.1 0.0 - 0.9 s/co ratio [facility] (IntelligentM) 06/01/2015 7:43 AM CDT 06/01/2015 9:18 AM CDT Narrative [facility] (BEAKER) - 06/02/2015 6:15 AM CDT Performed at: ??[address] - [address] ??[id number] Check Writer: Erasmo Morris PhD, Phone: ??[phone] Annette Singh MD LAB - CHEMISTRY [place]FF[place]IE WILLS Performing Organization Address City/[facility]/ZIP Co de Phone Number [facility] (BELJ) * MAMMO SCREENING DIGITAL IMAGE BILAT (08/23/2011 7:59 AM GAME ENGINEER) Anatomical Region Laterality Modality Breast Bilateral Mammography 08/23/2011 12:0 7 PM GAME ENGINEER Narrative 08/23/2011 12:27 PM GAME ENGINEER DIGITAL BILATERAL SCREENING MAMMOGRAMS WITH CAD CORRELATION DATE: August 23, 2011 PREVIOUS EXAM DATE: None; baseline examination. INDICATION: Screening, multiple family members including first degree relatives with history of breast cancer. TECHNIQUE: Bilateral craniocaudad (CC) and mediolateral oblique (MLO) views. The study was interpreted with the aid of CAD. ?? TECHNOLOGIST: RT Greyson() TISSUE DENSITY: Extremely dense [...] if suspicious findings are present clinically. An [employer] [facility] Procedure Note [...] if suspicious findings are present clinically. An [employer] [facility] Daja Orr MD MAMMO ORDERABLES from Last 3 Months or Most Recently Relevant to Health Maintenance Advance Directives * FULL RESUSCITATION (Latest Code Status on File) Date Activated Date Inactivated Comments 04/03/2011 3:58 PM 04/08/2011 4:57 AM Care Teams Route Sales Associate Relationship Specialty Start Date End Date Azar Braxton MD [address] [address] PCP - General Family Medicine 07/07/21
--- OUTSIDE RECORDS SUMMARY | 2024-07-30 14:06 | XMS_ITS | Encounter Summary ---
Author Organization [facility] Address [address] [place] [address] Care Team Providers Care School Cafeteria Cook Name Role Phone Azar Braxton MD Primary Care Provider [phone] Azar Braxton MD Unavailable [phone] Reason for Visit * Radiology Services (Routine) - Closed Specialty Diagnoses / Procedures Referred By María Elena rand Referred To Contact Cardiology Procedures ID ECG/REVIEW INTERPRET ONLY [facility] Cardiology [address] [place] [id number] [facility] Cardiology [address] [place] [id number] Referral ID Status Reason Start Date Expiration Date Visits Re quested Visits Authorized [id number] Closed 08/22/2022 08/22/2023 1 1 Encounter Details Date Type Department Care Team (Latest Contact Info) Description 08/22/2022 2:00 PM SLIDE ATTENDANT - 08/22/2022 11:59 PM SLIDE ATTENDANT Hospital Encounter [facility] Heart & Vascular Care [address] [place] [address] Azar Braxton MD [address] [place] [address] Discharge Disposition: Home or Self Care Social [...] file Gender Identity Female 08/19/2022 7:56 AM SLIDE ATTENDANT Sexual Orientation Not on file COVID-19 Exposure Response Date Recorded In the last 10 days, have yo u been in contact with someone who was confirmed or suspected to have Coronavirus/COVID-19? No / Unsure 08/19/2022 3:17 PM SLIDE ATTENDANT documented as of this encounter Medications at Time of Discharge Medication Sig Dispensed Refills Start Date End Date ARIPiprazole (Abilify) 2 MG tablet clonazePAM (KLONOPIN) 0.5 MG tablet Take 1 (one) tablet by mouth 2 times daily DULoxetine (CYMBALTA) 60 MG capsule Take 1 (one) capsule by mouth once daily 5 11/13/2015 JOLESSA 0.15-0.03 MG tablet 06/23/2021 lamoTRIgine (LaMICtal) 100 MG tablet 08/21/2022 traZODone (DESYREL) 50 MG tablet 05/09/2020 lamoTRIgine XR 24hr (LAMICTAL XR) 100 MG tablet Take 1 (one) tablet by mouth once daily 10/12/2022 documented as of this encounter Procedure Notes * Molly Delgadillo, DO - 08/22/2022 11:59 PM CSTAssociated Order(s): EVENT MONITOR [facility] Event Monitor Report PATIENT NAME: CATA IBRAHIM MR#: [id number] AGE: 37 CSN: [id number] : 1985 DATE OF ADMISSION: 08/22/2022 DATE OF PROCEDURE: 08/22/2022 ROOM#: ADDITIONAL ORDERING PROVIDER: Molly Angeles. REASON FOR TEST: Palpitations. PRIMARY CARE PHYSICIAN: Azar Braxton MD. FINDINGS: The patient was monitored for a total of 15 days. Average heart rate during monitoring was 89 beats per minute. Heart rate ranged between 51 beats per minute up to 174 beats per minute. There were rare PVCs. No PACs, but there was one 37-second episode of SVT at a rate of 174 beats per minute. No symptoms noted during the episode. No atrial fibrillation. No pauses. No high-degree AV block. No ventricular tachycardia. CONCLUSION: Sinus rhythm with 37-second episode of SVT at a rate of 174 beats per minute. Otherwise, rare PVCs. No other significant arrhythmia. cc: Azar Braxton MD NAME: CATA IBRAHIM DICTATOR: MOLLY Nazario DO LEONA DICTATED FOR: SMW/MODL JOB ID: [id number] Cardiac Catheterization Report E ATTENDANT documented in this encounter Plan of Treatment Not on file documented as of this encounter Procedures Procedure Name Priority Date/Time Associated Diagnosis Comments EVENT MONITOR Routine 08/22/2022 12:00 PM SLIDE ATTENDANT Palpitations documented in this encounter Results * EVENT MONITOR (08/22/2022 12:00 PM SLIDE ATTENDANT) 08/22/2022 12:0 0 PM SLIDE ATTENDANT Narrative Procedure Note Molly Delgadillo DO - 08/22/2022 11:59 PM CST [facility] Event Monitor Report PATIENT NAME: CATA IBRAHIM MR#: [id number] AGE: 37 CSN: [id number] : 1985 DATE OF ADMISSION: 08/22/2022 DATE OF PROCEDURE: 08/22/2022 ROOM#: ADDITIONAL ORDERING PROVIDER: Molly Angeles. REASON FOR TEST: Palpitations. PRIMARY CARE PHYSICIAN: Azar Braxton MD. FINDINGS: The patient was monitored for a total of 15 days. Average heart rateduring monitoring was 89 beats per minute. Heart rate ranged between 51 beatsper minute up to 174 beats per minute. There were rare PVCs. No PACs, butthere was one 37-second episode of SVT at a rate of 174 beats per minute. Nosymptoms noted during the episode. No atrial fibrillation. No pauses. Nohigh-degree AV block. No ventricular tachycardia. CONCLUSION: Sinus rhythm with 37-second episode of SVT at a rate of 174 beats perminute. Otherwise, rare PVCs. No other significant arrhythmia. cc: Azar Braxton MD NAME: CATA IBRAHIM DICTATOR: MOLLY DELGADILLO DO DICTATED FOR: TRAVIS/TREY JOB ID: [id number] Cardiac Catheterization Report Azar Braxton MD CARDIAC SERVICES ORD ERABLES Performing Organization Address City/State/[facility] Co de Phone Number [facility] documented in this encounter Visit Diagnoses Diagnosis Palpitations- Primary documented in this encounter Care Teams School Cafeteria Cook Relationship Specialty Start Date End Date Azar Braxton MD [address] [address] PCP - General Family Medicine 07/07/21 Azar Braxton MD [address] [address] PCP - Attributed-[employer] 11/12/21 08/31/22 documented as of this encounter
--- OUTSIDE RECORDS SUMMARY | 2024-07-30 14:06 | XMS_ITS | Encounter Summary ---
Author Organization [facility] Health Address [address] [facility] [place] [address] Care Team Providers Care Gastroenterology Physician Name Role Phone Dona Beyer MD Primary Care Provider [phone] Encounter Details Date Type Department Care Team (Latest Contact Info) Description 05/14/2020 Travel Social History Tobacco Use Types Packs/Day Years Used Date Smoking Tobacco: Never Smokeless Tobacco: Never Alcohol Use Standard Drinks/Week Comments Yes 0 (1 standard drink = 0.6 oz pur e alcohol) social - rare Sex and Gender Information Value Date Recorded Sex Assigned at Not on file Gender Identity Female 08/19/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 No / Unsure 05/14/2020 11:54 AM CDT documented as of this encounter Plan of Treatment Not on file documented as of this encounter Visit Diagnoses Not on filedocumented in this encounter Care Teams Gastroenterology Physician Relationship Specialty Start Date End Date Dona Beyer MD PCP - General Airplane Coverer 03/26/20 07/06/21 documented as of this encounter
--- OUTSIDE RECORDS SUMMARY | 2024-07-30 14:06 | XMS_ITS | Encounter Summary ---
Author Organization [facility] Address [address] [facility] [place] [address] Care Team Providers Care Fan Engine Engineer Name Role Phone Azar Braxton MD Primary Care Provider [phone] Reason for Referral * Cardiac (Routine) - Closed Specialty Diagnoses / Procedures Referred By Contac t Referred To Contact Cardiology Diagnoses Palpitations Procedures ECHO TRANSTHORACIC FL TTE W/DOPPLER, COMPLETE FL TTE W/O DOPPLER, COMPLETE Ruben Palumbo MD [address] [facility] [address] [place] [address] [address] Referral ID Status Reason Start Date Expiration Date Visits Re quested Visits Authorized [id number] Closed 11/07/2022 12/22/2022 1 1 KROOM ATTENDANT Reason for Visit * Reason Comments Establish Care Abnormal Ekg * Evaluate & Treat - Closed Specialty Diagnoses / Procedures Referred By Contac t Referred To Contact Cardiology Diagnoses Palpitations Azar Braxton MD [address] [place] [address] [facility] [address] [place] [address] [address] [place] [address] Referral ID Status Reason Start Date Expiration Date V isits Requested Visits Authorized [id number] Closed Specialty Services Required 09/26/2022 09/26/2023 1 1 Encounter Details Date Type Department Care Team (Latest Contact Info) Description 10/12/2022 4:00 PM STOCKROOM ATTENDANT Office Visit [facility] Health Heart & Vascular Care [address] [place] [address] Ruben Palumbo MD [address] [place] [address] Supraventricular tachycardia (Primary Dx) Social History Tobacco Use Types [...] file Gender Identity Female 08/19/2022 7:56 AM STOCKROOM ATTENDANT Sexual Orientation Not on file documented as of this encounter Last Filed Vital Signs Vital Sign Reading Time Taken Comments Blood Pressure 151/85 10/12/2022 3:52 PM STOCKROOM ATTENDANT Pulse 85 10/12/2022 3:52 PM STOCKROOM ATTENDANT Temperature - - Respiratory Rate - - Oxygen Saturation 96% 10/12/2022 3:52 PM STOCKROOM ATTENDANT Inhaled Oxygen Concentration - - Weight 63.7 kg (140 lb 6.4 oz) 10/12/2022 3:52 P M STOCKROOM ATTENDANT Height 154.9 cm (5' 1 ) 10/12/2022 3:52 PM STOCKROOM ATTENDANT Body Mass Index 26.53 10/12/2022 3:52 PM STOCKROOM ATTENDANT documented in this encounter Progress Notes * Ruben Palumbo MD - 10/12/2022 4:11 PM CST [facility] Heart & Vascular New Patient Consultation Patient Name: Cata Urena Date of : 1985 Encounter Date: 10/12/2022 PCP: Azar Braxton MD Chief complaint: Palpitations HPI: 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 Dr. Braxton ordered a event monitor which patient wore for 15 days. She did have sensitivity to the monitor patches on her skin. Her average heart rate is 89 beats per minute in sinus rhythm. There was 132nd episode of SVT with heart rate of 174 beats per minute. There were also rare PVCs. Patient's palpitations have become problematic since they will interfere with work. They have also increased in frequency are now occurring several times a week. The patient does feel associated lightheadedness whenshe gets her tachycardia. She has had no syncope. She denies chest pain, exertional shortness of breath and lower extremity edema. Past Medical History: Diagnosis Date ??? Depressive disorder, not elsewhere classified ??? Generalized anxiety disorder ??? Vaginal vestibulitis Past Surgical History: Procedure Laterality Date ??? Section 04/03/2011 ??? COLONOSCOPY 04/19/2013 COLONOSCOPY DIAGNOSTIC ??? COLONOSCOPY WITH BIOPSY 04/19/2013 COLONOSCOPY BIOPSY ??? ENDOSCOPY, UPPER 04/19/2013 ESOPHAGOGASTRODUODENOSCOPY (EGD) ??? ENDOSCOPY, UPPER 04/19/2013 ENDOSCOPY GI UPPER WITH BIOPSY ??? [place] Tooth Extraction Cannot display prior to admission medications because the patient has not been admitted in this contact. Allergies Allergen Reactions ??? Latex Itching Red and swollen ??? Reglan GI Discomfort and Palpitations Social History Socioeconomic History ??? Marital status: ??? Number of children: 1 Occupational History ??? 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 Smoking status: Never ??? Smokeless tobacco: Never Vaping Use ??? Vaping Use: Never used Substance and Sexual Activity ??? Alcohol use: Yes Comment: social - rare ??? Drug use: No ??? Sexual activity: Yes Partners: Male Social History Narrative Merged History Encounter Family History Problem Relation Name Age of Onset ??? Arthritis - Rheumatoid Maternal Grandmother ??? CAD (Coronary Artery Disease) Maternal Grandmother ??? Diabetes Maternal Grandmother ??? Heart Failure Maternal Grandmother ??? Thyroid Disease Maternal Grandmother ??? Cancer Mother breast ??? Hypertension Mother ??? Thyroid Disease Mother ??? Hypercholesterolemia Father ??? Depression Father ??? Hypertension Father ??? Thyroid Disease Paternal Grandmother Physical exam: BP 151/85 (BP SITE: LEFT ARM, BP POSITION: SITTING, BP CUFF SIZE: 11) Pulse 85 Ht 1.549 m (5' 1 ) Wt 63.7 kg (140 lb 6.4 oz) SpO2 96% General: in NAD HEENT: moist oral mucosa Eyes: pupils equal and sclera anicteric Neck: no JVD; supple; trachea midline, no carotid bruits Lungs: CTAB; no wheezing or rales; breathing unlabored Heart: RRR; no mrg Abdomen: soft, NT abd Extremities: no c/c/e; normal muscle tone Circulation: 1+ radial pulses Skin: warm and dry; no rash on visualized skin Psych: A&Ox3; normal mood and affect Data: Labs: Recent Labs Component Name 08/19/22 1505 07/07/21 1119 04/20/19 1254 WBC 5.6 7.8 10.1 HGB 13.1 12.6 14.0 HCT 40.4 38.3 41.8 PLTCOUNT 341 321 400 Recent Labs Component Name 08/19/22 1504 SODIUM 137 POTASSIUM 4.1 CHLORIDE 103 CO2 24 BUN 14 CREATININE 0.82 GLUCOSE 121* CALCIUM 9.6 ALBUMIN 4.0 ALKPHOS 78 ALT 25 AST 21 TBIL 0.3 TPROT 7.4 EGFR >90 Recent Labs Component Name 08/19/22 1504 07/07/21 1119 04/20/19 1254 03/29/17 1102 SODIUM 137 138 136 139 POTASSIUM 4.1 3.8 3.6 4.2 CHLORIDE 103 101 100 101 CO2 24 22* 23 20 BUN 14 15 15 10 CREATININE 0.82 0.79 0.92 0.92 GLUCOSE 121* 79 112* 73 CALCIUM 9.6 9.7 9.0 9.4 EGFR >90 >60 >60 83 EGFRAFR - >60 >60 95 Recent Labs Component Name 06/01/15 0743 INR 1.1 No results for input(s): TROPONIN in the last 75415 hours. No results for input(s): BNP, NTPROBNP in the last 23419 hours. Recent Labs Component Name 07/07/21 1119 03/29/17 1102 10/15/15 0920 CHOL 232* 209* 199 TRIG 134 110 133 HDL 58 57 66 LDLCALC 147* 130* 106 Recent Labs Component Name 08/19/22 1504 07/07/21 1119 03/29/17 1102 TSH 0.721 2.852 1.430 EKG (personally reviewed): December 04, 2015 Sinus rhythm with heart rate 99, incomplete right bundle-branch block, normal intervals August 22, 2022 event monitor: The patient was monitored for a total [...] No high-degree AV block. No ventricular tachycardia. ?? CONCLUSION: Sinus rhythm with 37-second episode of SVT at a rate of 174 beats per minute. Otherwise, rare PVCs. No other significant arrhythmia. ?? Assessment and Plan 1. PSVT - with symptoms of palpitations and lightheadedness. 2. Hyperlipidemia 3. Increase blood pressure without a diagnosis of hypertension Start metoprolol XL 25 mg daily Echocardiogram Start home blood pressure monitoring Eat heart healthy diet ie Mediterranean type diet Follow-up in office in 2 months Thank you for allowing me to participate in the care of this patient. Please do not hesitate to call with any questions. The above chart may have been completed partially or entirely using voice dictation software. The chart has been reviewed for discrepancies and software interpretation errors. However, the possibility exists that some unrecognized dictation-software related errors may remain. This note may contain information and findings from prior encounters which remain the same for today???s encounter. I have reviewed and made updates where applicable. Ruben Palumbo MD 10/12/2022 4:12 PM [facility] Heart & Vascular [facility] KROOM ATTENDANT documented in this encounter Plan of Treatment Not on file documented as of this encounter Results * ECHO COMPLETE (11/11/2022 8:40 AM CDT) BSA 1.5889506 [id number] m2 [facility] CV FUJI PACS LV biplane EF 60 % SSM CV FUJI PACS LV A2C EF 63 % SSM CV [facility] I PACS LV A4C EF 60 % SSM CV [facility] I PACS LVOT stroke vol 53.16 cm3 SSM CV FUJI PACS LV stroke vol 2D teich 33.647 ml SSM CV FUJI PACS LV stroke vol index A4C MOD 34 ml SSM CV FUJI PACS LVIDd 3.63 3.5 - 6.0 cm SSM CV FUJI PACS LVIDs 2.48 2.1 - 4.0 cm SSM CV FUJI PACS IVSd 2D 0.805 cm SSM CV [facility] I PACS LVPWd 0.84 cm SSM CV [facility] I PACS Fractional Shortening 2D 32 28 - 44 % [facility] LV ESV BP 21 mL SSM CV [facility] I PACS LV ESV index BP 12.6 mL/m2 SSM CV [facility] PACS LV ESV A2C 23 mL SSM CV FU JI PACS LV EDV BP 52 mL SSM CV [facility] I PACS LV ESV A4C 18 mL SSM CV FU JI PACS LV EDV index BP 31.1 mL/m2 SSM CV [facility] PACS LV EDV A2C 48 mL SSM CV FU JI PACS LV EDV A4C 57 mL SSM CV FU JI PACS LV EDV A/L A4C 57.337 mL SSM C V [facility] PACS LVOT diam 1.8 cm SSM CV [facility] I PACS LVOT area 2.54 cm2 SSM CV [facility] I PACS LV RWT 0.465 SSM CV [facility] I PACS LV Flores A4C 7.11 cm SSM CV F U PACS LV Area Flores A2C 20.2 cm2 SSM CV [facility] PACS LV Area Flores A4C 21.9 cm2 SSM CV [facility] PACS MV E pk dwaine 89.3 cm/s SSM CV F U PACS MV A pk dwaine 88.4 cm/s SSM CV F U PACS MV E' lateral dwaine 16 cm/s SS [facility] MV DT 169 ms SSM CV [facility] I PACS MV E' septal dwaine 10.5 cm/s [facility] P[facility] LA vol BP 30 mL SSM CV [facility] I PACS LVOT pk dwaine 1.16 m/s SSM CV F UJI PACS LVOT mn dwaine [id number] cm/s SSM CV FUJI PACS LVOT mn [...] suprasternal views were obtained. History: SVT Ruben Palubmo MD ECHO CUPID documented in this encounter Visit Diagnoses Diagnosis Supraventricular tachycardia- Primary Palpitations Supraventricular tachycardia Palpitations documented in this encounter Care Teams Fan Engine Engineer Relationship Specialty Start Date End Date Azar Braxton MD [address] [address] PCP - General Family Medicine 07/07/21 documented as of this encounter
--- OUTSIDE RECORDS SUMMARY | 2024-07-30 14:06 | XMS_ITS | Encounter Summary ---
Author Organization [facility] Health Address [address] [facility] [place] [address] Care Team Providers Care Veterinary Bacteriologist Name Role Phone Azar Braxton MD Primary Care Provider [phone] Reason for Visit * Reason Comments Refill Request Encounter Details Date Type Department Care Team (Late st Contact Info) Description 09/07/[address] [facility] Heart & Vascular Care [address] [facility] [address] [place] [address] Board, Magda Cortes, MOLDER FEEDER-DIGITAL MEDIA COORDINATOR [address] [address] [place] [address] Refill Request Social History Tobacco Use Types Packs/Day Years Used Date Smoking Tobacco: Never Smokeless Tobacco: Never Alcohol Use Standard Drinks/Week Comments Yes 0 (1 standard drink = 0.6 oz pur e alcohol) social - rare PHQ-2 Answer Date Recorded PHQ2 TOTAL SCORE 0 08/19/2022 Sex and Gender Information Value Date Recorded Sex Assigned at Not on file Gender Identity Female 08/19/2022 7:56 AM CARD SELLER Sexual Orientation Not on file documented as of this encounter Miscellaneous Notes * Telephone Encounter - Ml Noyola MA - 09/07/2023 4:13 PM CST Requested Prescriptions Pending Prescriptions Disp Refills ??? verapamil (Isoptin) 40 MG tablet [Pharmacy Med Name: VERAPAMIL 40MG TABLETS] 270 tablet 2 Sig: TAKE 1 TABLET BY MOUTH THREE TIMES DAILY TRI: 03/17/23 NOV: NA SELLER documented in this encounter Plan of Treatment Not on file documented as of this encounter Visit Diagnoses Not on filedocumented in this encounter Care Teams Veterinary Bacteriologist Relationship Specialty Start Date End Date Azar Braxton MD [address] [address] PCP - General Family Medicine 07/07/21 documented as of this encounter
--- OUTSIDE RECORDS SUMMARY | 2024-07-30 14:06 | XMS_ITS | Encounter Summary ---
Author Organization [facility] Address [address] [place] [address] Care Team Providers Care Garland Maker Name Role Phone Avery Hidalgo DO Primary Care Provider [phone] Encounter Details Date Type Department Care Team (Latest Contact Info) Description 09/25/2017 6:15 PM WATER TREATMENT PLANT MECHANIC - 09/25/2017 11:59 PM WATER TREATMENT PLANT MECHANIC Hospital Encounter [facility] [address] [place] [address] Monica Srinivasan, [place] [employer] AUDITOR-[facility] [address] [place] [address] Discharge Disposition: Home or Self Care Social History Tobacco Use Types Packs/Day Years Used Date Smoking Tobacco: Never Smokeless Tobacco: Never Alcohol Use Standard Drinks/Week Comments Yes 0 (1 standard drink = 0.6 oz pur e alcohol) social - rare Sex and Gender Information Value Date Recorded Sex Assigned at Not on file Gender Identity Female 08/19/2022 7:56 AM WATER TREATMENT PLANT MECHANIC Sexual Orientation Not on file documented as of this encounter Last Filed Vital Signs Vital Sign Reading Time Taken Comments Blood Pressure 101/51 09/25/2017 6:26 PM WATER TREATMENT PLANT MECHANIC Pulse 104 09/25/2017 6:26 PM WATER TREATMENT PLANT MECHANIC Temperature 36.6 ??C (97.8 ??F) 09/25/2017 6:26 PM CS T Respiratory Rate 20 09/25/2017 6:26 PM WATER TREATMENT PLANT MECHANIC Oxygen Saturation 100% 09/25/2017 6:26 PM WATER TREATMENT PLANT MECHANIC Inhaled Oxygen Concentration - - Weight 44.9 kg (99 lb) 09/25/2017 6:26 PM WATER TREATMENT PLANT MECHANIC Height 154.9 cm (5' 1 ) 09/25/2017 6:26 PM WATER TREATMENT PLANT MECHANIC Body Mass Index 18.71 09/25/2017 6:26 PM WATER TREATMENT PLANT MECHANIC documented in this encounter Discharge Instructions * Patient Instructions* Monica Srinivasan APRN-CNP - 09/25/2017 6:58 PM WATER TREATMENT PLANT MECHANIC Images from the original note were not included. Strep Throat Make sure you take the full course of antibiotics. Do not skip a dose or stop taking the medicationif you start feeling better. The following tips may help your sore throat feel better: Drink warm liquids such as lemon tea or tea with honey. Gargle several times a day with warm salt water (1/2 tsp of salt in 1 cup water). Drink cold liquids or suck on popsicles. Suck on hard candies or throat lozenges. Young children should not be given such products because they can choke on them. A cool-mist vaporizer or humidifier can moisten and soothe a dry and painful throat. Try ieuk-fpo-dcjbpml pain medications, such as acetaminophen. Do not eat or drink after anyone and do not share cups or eating utensils Cover you mouth when you cough or sneeze. Make sure to get a new toothbrush and tooth paste in 2-3 days to keep from getting re-infected. Symptoms of strep throat usually get better in about 1 week. Untreated, strep can lead to serious complications. Follow up with your pcp in 2 weeks for reevaluation. Most people with strep are contagious until they have been on antibiotics 24 - 48 hours. They should stay home from school, daycare, or work until they have been on antibiotics for at least a day. WHAT YOU NEED TO KNOW: Strep throat is a throat infection caused by bacteria. It is easily spread from person to person. DISCHARGE INSTRUCTIONS: Call 911 for any of the following: ?? You have trouble breathing. Seek care immediately if: ?? You have new symptoms like a bad headache, stiff neck, chest pain, or vomiting. ?? You are drooling because you cannot swallow your spit. Contact your healthcare provider if: ?? You have a fever. ?? You have a rash or ear pain. ?? You have green, yellow-brown, or bloody mucus when you cough or blow your nose. ?? You are unable to drink anything. ?? You have questions or concerns about your condition or care. Medicines: ?? Antibiotics help treat your strep throat. You should feel better within 2 to 3 days after you start antibiotics. ?? Take your medicine as directed. Contact your healthcare provider if you think your medicine is not helping or if you have side effects. Tell him or her if you are allergic to any medicine. Keep a list of the medicines, vitamins, and herbs you take. Include the amounts, and when and why you take them. Bring the list or the pill bottles to follow-up visits. Carry your medicine list with you in case of an emergency. Manage your symptoms: ?? Use lozenges, ice, soft foods, or popsicles to soothe your throat. ?? Drink juice, milk shakes, or soup if your throat is too sore to eat solid food. Drinking liquidscan also help prevent dehydration. ?? Gargle with salt water. Mix ?? teaspoon salt in a glass of warm water and gargle. This may help reduce swelling in your throat. ?? Do not smoke. Nicotine and other chemicals in cigarettes and cigars can cause lung damage and make your symptoms worse. Ask your healthcare provider for information if you currently smoke and needhelp to quit. E-cigarettes or smokeless tobacco still contain nicotine. Talk to your healthcare provider before you use these products. Return to work or school 24 hours after you start antibiotic medicine. Prevent the spread of strep throat: ?? Wash your hands often. Use soap and water. Wash your hands after you use the bathroom, change a child's diapers, or sneeze. Wash your hands before you prepare or eat food. ?? Do not share food or drinks. Replace your toothbrush after you have taken antibiotics for 24 hours. Follow up with your healthcare provider as directed: Write down your questions so you remember to ask them during your visits. ?? 2017 [employer] Information is for End User's use only and may not be sold, redistributed or otherwise used for commercial purposes. All illustrations and images included in CareNotes?? are the copyrighted property of [employer] or [employer]. The above information is an educational specialist only. It is not intended as medical advice for individual conditions or treatments. Talk to your doctor, nurse or pharmacist before following any medical regimen to see if it is safe and effective for you. R TREATMENT PLANT MECHANIC documented in this encounter Medications at Time of Discharge Medication Sig Dispensed Refills Start Date End Date clonazePAM (KLONOPIN) 0.5 MG tablet Take 1 (one) tablet by mouth 2 times daily DULoxetine (CYMBALTA) 60 MG capsule Take 1 (one) capsule by mouth once daily 5 11/13/2015 AMETHIA 0.15-0.03 &0.01 MG tablet Take 1 Tab by mouth once daily 11 04/25/2016 07/07/2021 amoxicillin (AMOXIL) 875 MG tabletIndications:Phar yngitis Take 1 tablet by mouth every 12 hours for 10 days Reasons: Throat Infection 20 tablet 09/25/2017 10/05/2017 buPROPion (WELLBUTRIN) 100 MG tablet TK 1 T PO QAM 2 12/23/2016 07/07/2021 lamoTRIgine XR 24hr (LAMICTAL XR) 100 MG tablet Take 1 (one) tablet by mouth once daily 10/12/2022 omeprazole (PRILOSEC) 20 MG capsule Take 20 mg by mouth daily before breakfast 07/07/2021 QUEtiapine (SEROQUEL) 25 MG tablet 50 mg at bedtime 0 11/30/2016 07/07/2021 vitamin D3 ([facility] VIT D 5000 HIGH-POTENCY) 5000 UNITS capsule Take 1 Cap by mouth once daily 06/22/2016 08/19/2022 documented as of this encounter Progress Notes * Monica Srinivasan APRN-CNP - 09/25/2017 6:55 PM CST Provider contact with the patient: 09/25/2017 18:56 [place] [id number] [facility] History Sore throat HPI Source of information obtained from patient. Pt. is a 32 y.o. White/ female with PMH as indicated below, who presents to today for one day of sore throat, body aches and fever. 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 Patient reports noN/V/D and/or abdominal pain. No reports of shortness of breath/difficulty breathing or chest pain. Patient is fully immunized to the best of their knowledge. No history of travel outside the continental [place] within the last 21 days. Past Medical History: Diagnosis Date ??? Depressive disorder, not elsewhere classified ??? Generalized anxiety disorder ??? Vaginal vestibulitis Past Surgical History: Procedure Laterality Date ??? Section 04/03/2011 ??? COLONOSCOPY 04/19/2013 COLONOSCOPY DIAGNOSTIC ??? COLONOSCOPY WITH BIOPSY 04/19/2013 COLONOSCOPY BIOPSY ??? ENDOSCOPY, UPPER 04/19/2013 ESOPHAGOGASTRODUODENOSCOPY (EGD) ??? ENDOSCOPY, UPPER 04/19/2013 ENDOSCOPY GI UPPER WITH BIOPSY ??? Loring Tooth Extraction Family History Problem Relation Age of Onset ??? Hypercholesterolemia Father ??? Depression Father ??? Cancer Mother breast ??? Arthritis - Rheumatoid Maternal Grandmother ??? Coronary Artery Disease Maternal Grandmother ??? Diabetes Maternal Grandmother ??? Heart Failure Maternal Grandmother ??? Hypertension Mother ??? Hypertension Father ??? Thyroid Disease Mother ??? Thyroid Disease Maternal Grandmother ??? Thyroid Disease Paternal Grandmother Social History Social History ??? Marital status: Spouse name: N/A ??? Number of children: 1 ??? Years of education: N/A Occupational History ??? [employer] Social History Main Topics ??? Smoking status: Never Smoker ??? Smokeless tobacco: Never Used ??? Alcohol use Yes Comment: social - rare ??? Drug use: No ??? Sexual activity: Yes Partners: Male Other Topics Concern ??? Not on file Social History Narrative Merged History Encounter Allergies Allergen Reactions ??? Latex Itching Red and swollen ??? Reglan [Metoclopramide] Made her insane , got shaky ??? Tdap [Adacel] Unknown Review of Systems Review of Systems Constitutional: Positive for chills and fever. HENT: Positive for sore throat. Eyes: Negative. Respiratory: Negative for cough, sputum production and shortness of breath. Cardiovascular: Negative for chest pain and palpitations. Genitourinary: Negative. Musculoskeletal: Negative. Skin: Negative for rash. Physical Exam BP 101/51 Pulse 104 Temp 97.8 ??F (Oral) Resp 20 Ht 1.549 m (5' 1 ) Wt 44.9 kg (99 lb) SpO2 100% BMI 18.71 kg/m2 Physical Exam Constitutional: She is oriented to person, place, and time. Vital signs are normal. She appears well-developed and well-nourished. She is cooperative. No distress. HENT: Head: Normocephalic. Right Ear: Hearing, tympanic membrane, external ear and ear canal normal. Left Ear: Hearing, tympanic membrane, external ear and ear canal normal. Nose: Nose normal. Mouth/Throat: Uvula is midline and mucous membranes are normal. Posterior oropharyngeal erythema present. Tonsils are 2+ on the right. Tonsils are 2+ on the left. Tonsillar exudate. Neck: Normal range of motion. Cardiovascular: Normal rate, regular rhythm and normal heart sounds. Pulmonary/Chest: Effort normal and breath sounds normal. Lymphadenopathy: She has cervical adenopathy. Neurological: She is alert and oriented to person, place, and time. GCS eye subscore is 4. GCS verbal subscore is 5. GCS motor subscore is 6. Skin: Skin is warm, dry and intact. Psychiatric: She has a normal mood and affect. Her behavior is normal. Judgment and thought contentnormal. Nursing note and vitals reviewed. Medications Current Outpatient Prescriptions Medication Sig Dispense Refill ??? amoxicillin (AMOXIL) 875 MG tablet Take 1 tablet by mouth every 12 hours for 10 days Reasons: Throat Infection 20 tablet 0 ??? lamoTRIgine XR 24hr (LAMICTAL XR) 100 [...] mg by mouth 2 times daily ??? omeprazole (PRILOSEC) 20 MG capsule Take 20 mg by mouth daily before breakfast Procedures Procedures ECG Interpretation ECG Interpretation Lab/SPO2 Interpretation Hospital Encounter on 09/25/17 STREP A SCREEN - POCT (IP) URGENT CARE Result Value Ref Range Strep A Rapid Positive (Abnormal) Negative QC Verified Yes Yes INFLUENZA A+B - POCT (IP) URGENT CARE Result Value Ref Range Influenza A Ag Negative Negative Influenza B Ag Negative Negative QC Verified Yes Yes Progress Notes Discussed + strep result with the pt and - flu result with the pt. Verbalized understanding UC Course Make sure you take the full course of antibiotics. Do not skip a dose or stop taking the medicationif you start feeling better. The following tips may help your sore throat feel better: Drink warm liquids such as lemon tea or tea with honey. Gargle several times a day with warm salt water (1/2 tsp of salt in 1 cup water). Drink cold liquids or suck on popsicles. Suck on hard candies or throat lozenges. Young children should not be given such products because they can choke on them. A cool-mist vaporizer or humidifier can moisten and soothe a dry and painful throat. Try caib-fix-hxqvjco pain medications, such as acetaminophen. Do not eat or drink after anyone and do not share cups or eating utensils Cover you mouth when you cough or sneeze. Make sure to get a new toothbrush and tooth paste in 2-3 days to keep from getting re-infected. Symptoms of strep throat usually get better in about 1 week. Untreated, strep can lead to serious complications. Follow up with your pcp in 2 weeks for reevaluation. Most people with strep are contagious until they have been on antibiotics 24 - 48 hours. They should stay home from school, daycare, or work until they have been on antibiotics for at least a day. Medical Decision Making I have reviewed the: Nursing Notes, Vitals. I have interpreted the following results: Labs, Oxygen Saturation. Orders Placed This Encounter ??? STREP A SCREEN - POCT (IP) URGENT CARE ??? INFLUENZA A+B - POCT (IP) URGENT CARE ??? amoxicillin (AMOXIL) 875 MG tablet Clinical Impression Final diagnoses: Throat pain Streptococcal sore throat (Primary) AVS reviewed with the patient. I have given the patient instructions regarding her diagnosis, expectations, follow up, and return precautions. I explained to the patient that emergent conditions may arise and to return to the UC or go to the nearest emergency room for new, worsening, or any persistent conditions. I've explained the importance of following up with her doctor--Avery Hidalgo DO--(or the referral physician) as instructed. Recommended Follow up in one week or sooner with worsening symptoms The patient verbalized understanding of the discharge instructions. Pt ambulated out of the UC in no distress and denied having any questions or concerns. R TREATMENT PLANT MECHANIC documented in this encounter Miscellaneous Notes * Addendum Note - Uyen Becker CPC - 09/25/2017 11:59 PM CSTEncounter addended by: Uyen Becker CPC on: 09/26/2017 9:17 PM
Actions taken: Charge Capture section accepted R TREATMENT PLANT MECHANIC documented in this encounter Plan of Treatment Not on file documented as of this encounter Procedures Procedure Name Priority Date/Time Associated Diagnosis Comments INFLUENZA A+B - POCT (IP) URGENT CARE Routine 09/25/2017 6:43 PM WATER TREATMENT PLANT MECHANIC Throat pain STREP A SCREEN - POCT (IP) URGENT CARE Routine 09/25/2017 6:37 PM WATER TREATMENT PLANT MECHANIC Throat pain documented in this encounter Results * INFLUENZA A+B - POCT (IP) URGENT CARE (09/25/2017 6:43 PM WATER TREATMENT PLANT MECHANIC) Influenza A Antigen Rapid Negative Negative [facility] POCT TESTING Influenza B Antigen Rapid Negative Negative [facility] POCT TESTING QC Verified Yes Yes [facility] POC T TESTING Throat ENTIRE THROAT (SURFACE REGION OF NECK) / Unknown 09/25/2017 6:43 PM WATER TREATMENT PLANT MECHANIC Monica [facility] - POINT [facility] F CARE ORDERABLES [facility] POCT TESTING [address] [place] [address], [facility] * (ABNORMAL) STREP A SCREEN - POCT (IP) URGENT CARE (09/25/2017 6:37 PM WATER TREATMENT PLANT MECHANIC) Strep A Rapid POCT Positive(A ) Negative [facility] POCT TESTING QC Verified Yes Yes [facility] POC T TESTING Throat ENTIRE THROAT (SURFACE REGION OF NECK) / Unknown 09/25/2017 6:37 PM WATER TREATMENT PLANT MECHANIC Monica Srinivasan [employer] AUDITOR-[facility] - POINT O F CARE ORDERABLES [facility] POCT TESTING [address] documented in this encounter Visit Diagnoses Diagnosis Streptococcal sore throat- Primary Throat pain documented in this encounter Care Teams Garland Maker Relationship Specialty Start Date End Date Avery Hidalgo DO PCP - General Family Medicine 08/26/15 03/25/20 documented as of this encounter
--- OUTSIDE RECORDS SUMMARY | 2024-07-30 14:06 | XMS_ITS | Encounter Summary ---
Author Organization [facility] Address [address] [facility] [place] [address] Care Team Providers Care Account Supervisor Name Role Phone Avery Hidalgo DO Primary Care Provider [phone] Encounter Details Date Type Department Care Team (Latest Contact Info) Description 01/23/2019 12:52 PM CDT - 01/23/2019 11:59 PM T Hospital Encounter [facility] [address] [place] [address] Drew Orlando MD [address] [place] [id number] Nolan Orlando MD [address] [place] [address] [place] [id number] Discharge Disposition: Home or Self Care Social History Tobacco Use Types Packs/Day Years Used Date Smoking Tobacco: Never Smokeless Tobacco: Never Alcohol Use Standard Drinks/Week Comments Yes 0 (1 standard drink = 0.6 oz pur e alcohol) social - rare Sex and Gender Information Value Date Recorded Sex Assigned at Not on file Gender Identity Female 08/19/2022 7:56 AM JUNIOR ARCHITECT Sexual Orientation Not on file documented as of this encounter Medications at [...] 06/22/2016 08/19/2022 documented as of this encounter Plan of Treatment Not on file documented as of this encounter Procedures Procedure Name Priority Date/Time Associated Diagnosis Comments PATHOLOGY TISSUE EXAM (STL) Routine 01/23/2019 7:45 AM CDT Chronic left hip pain documented in this encounter Results * GROSS + MICRO EXAM (STL) (01/23/2019 7:45 AM CDT) Case Report Surgical Pathology Report ? Case: [id number] ? Authorizing Provider: ??Drew Orlando MD ? Collected: ? 01/23/2019 07:45 AM ? Ordering Location: ? [facility] ?Received: ?01/23/2019 12:56 PM ? Pathologist: ? Yuni Younger MD ? Specimens: ?? A) - Cervix Conization, ecto cervix 12 oclock ? B) - Cervix Conization, endo cervix ? 01/25/2019 12:03 PM [facility] Final Diagnosis Uterus, cervix, conization: - High-grade squamous intraepithelial lesion (JOSE RAMON-2) - Margins negative for JOSE RAMON-2 Uterus, endocervix, excision: - No evidence of dysplasia or malignancy KL/na 01/25/2019 12:03 PM [facility] Clinical History HGSIL. 01/25/2019 12:03 PM [facility] Gross Description Specimen received in two formalin-filled containers each labeled with the patient's name [place]ata U[place]. The first container is additionally labeled ectocervix marked at 12 o'clock and consists of a portion of cervix with a stitch indicating 12 o'clock measuring 2.2 x 2.5 x 1.4 cm and a portion of tissue and mucus measuring 1.5 x 1.2 x 0.8 cm. The ectocervix is focally roughened at an area from approximately 3 to 6 o'clock, otherwise shiny and glistening. The endocervical margin is inked blue and the ectocervical margin is inked black. The cervix is sectioned in a clockwise manner and submitted in A1 through A4. The remaining tissues and mucus are submitted in A5. The second container is additionally labeled endocervix #2 and consists of a portion of tissue surfaced by glistening polypoid tissue measuring 1.5 x 1 x 1 cm. The endocervical mucosa shows numerous glistening han-white polypoid structures. The margin is inked black. The specimen is sectioned and entirely submitted in B1 through B2. KL/me 01/25/2019 12:03 PM [facility] Microscopic Description Histologic sections of the cervix cone show cervix at the transition zone with chronic inflammation and areas of high-grade squamous intraepithelial lesion (JOSE RAMON-2). The margins are negative for high-grade dysplasia. There is no evidence of invasive malignancy. Histologic sections of the endocervix show benign endocervix with no evidence of dysplasia or malignancy. KL/na 01/25/2019 12:03 PM [facility] Disclaimer All histochemical and/or immunohistochemical results are interpreted with controls that demonstrate appropriate staining reactions before reporting results. Note on use of immunocytochemistry reagents: This test was developed and its performance characteristic determined by [facility], Department of Laboratory Medicine. It has not been cleared or approved by the U.S. Food and Drug Administration (FDA). The FDA has determined that such clearance or approval is not necessary. The test is used for clinical purpose. It should not be regarded as investigational or for research. This laboratory is certified to perform high complexity testing. 01/25/2019 12:03 PM [facility] Embedded Images 01/25/2019 12:03 PM [facility] Pathology/Cytology SPECIMEN FROM LESION OF UTERINE CERVIX OBTAINED BY CONE BIOPSY / Unknown 01/23/2019 7:45 AM CDT 01/23/2019 12:56 PM CDT Miscellaneous samples (specimen) SPECIMEN FROM LESION OF UTERINE CERVIX OBTAINED BY CONE BIOPSY / Unknown 01/23/2019 7:45 AM CDT 01/23/2019 12:56 PM CDT Nolan Orlando MD LAB - PATHOLOGY/CYTO LOGY ORDERABLES [facility] [address] [place], [place] [id number] documented in this encounter Visit Diagnoses Diagnosis Chronic left hip pain- Primary Pain in joint, pelvic region and thigh documented in this encounter Care Teams Account Supervisor Relationship Specialty Start Date End Date Avery Hidalgo DO PCP - General Family Medicine 08/26/15 03/25/20 documented as of this encounter
--- OUTSIDE RECORDS SUMMARY | 2024-07-30 14:06 | XMS_ITS | Encounter Summary ---
Author Organization [facility] Address [address] [facility] [place] [address] Care Team Providers Care Ceo & Board Director Name Role Phone Azar Braxton MD Primary Care Provider [phone] Reason for Visit * Reason Onset Date Comments Scheduling 04/20/2023 Encounter Details Date Type Department Care Team (Late st Contact Info) Description 04/20/2023 Telephone [facility] [address] [place] [address] Ruben Palumbo MD [address] [facility] [address] [place] [address] Scheduling Social History Tobacco Use Types Packs/Day Years Used Date Smoking Tobacco: Never Smokeless Tobacco: Never Alcohol Use Standard Drinks/Week Comments Yes 0 (1 standard drink = 0.6 oz pur e alcohol) social - rare PHQ-2 Answer Date Recorded PHQ2 TOTAL SCORE 0 08/19/2022 Sex and Gender Information Value Date Recorded Sex Assigned at Not on file Gender Identity Female 08/19/2022 7:56 AM HYBRID TECHNOLOGIST Sexual Orientation Not on file documented as of this encounter Miscellaneous Notes * Telephone Encounter - Fermin Huynh MA - 04/20/2023 8:07 AM CDT Left message for patient to call back. She is to reschedule her treadmill only.Gwen will not be inthat week. documented in this encounter Plan of Treatment Not on file documented as of this encounter Visit Diagnoses Not on filedocumented in this encounter Care Teams Ceo & Board Director Relationship Specialty Start Date End Date Azar Braxton MD [address] [address] PCP - General Family Medicine 07/07/21 documented as of this encounter
--- OUTSIDE RECORDS SUMMARY | 2024-07-30 14:06 | XMS_ITS | Encounter Summary ---
Author Organization [facility] Address [address] [facility] [place] [address] Care Team Providers Care Rake Operator Name Role Phone Azar Braxton MD Primary Care Provider [phone] Reason for Visit * Reason Comments Establish Care Encounter Details Date Type Department Care Team (Late st Contact Info) Description 07/07/2021 11:00 AM AIR CREW OFFICER Office Visit [facility] - Family Medicine [address] [place] [id number] Azar Braxton MD [address] [place] [phone] Routine physical examination (Primary Dx) Social History Tobacco Use Types [...] file Gender Identity Female 08/19/2022 7:56 AM AIR CREW OFFICER Sexual Orientation Not on file COVID-19 Exposure Response Date Recorded In the last month, have you been in contact with someone who was confirmed or suspected to have Coronavirus / COVID-19? No / Unsure 06/10/2021 9:27 AM CDT documented as of this encounter Last Filed Vital Signs Vital Sign Reading Time Taken Comments Blood Pressure 120/71 07/07/2021 10:59 AM AIR CREW OFFICER Pulse 89 07/07/2021 10:59 AM AIR CREW OFFICER Temperature - - Respiratory Rate 20 07/07/2021 10:59 AM AIR CREW OFFICER Oxygen Saturation 100% 07/07/2021 10:59 AM AIR CREW OFFICER Inhaled Oxygen Concentration - - Weight 54.4 kg (120 lb) 07/07/2021 10:59 AM AIR CREW OFFICER Height 154.9 cm (5' 1 ) 07/07/2021 10:59 AM AIR CREW OFFICER Body Mass Index 22.67 07/07/2021 10:59 AM AIR CREW OFFICER documented in this encounter Patient Instructions * Patient Instructions* Catherine Ledesma MA - 07/07/2021 10:59 AM AIR CREW OFFICER If your physician has placed a referral, centralized scheduling will contact you in 2 business days. If you do not receive a call, please call [phone]. If your insurance company requires a referral, please inform office staff. [facility]- Family Medicine, Pediatrics & OBGYN Our providers and staff are invested in your healthcare. We are dedicated to taking our time with you to take care of your needs and make sure you have an exceptional experience when visiting our office. In order to provide exceptional care to you and your family, it is important that you keep yourappointments. We understand that emergencies happen, but please notify our office if you will not be able to keepyour scheduled appointment. Our office has a No Show policy; outlined below. Overview: ?? Missing scheduled appointments interferes with continued medical care and overall access for ourpatients. ??? If you need to reschedule your appointment, please cancel more than 24 hours in advance. ??? Automated reminders are provided to our patients for their appointments as a courtesy. The procedure for missed appointments is as follows: ??? First missed appointment. A letter will be mailed reminding you of the appointment and also provide information on rescheduling. ??? Additional missed appointments result in additional letters from your provider ??? After 3 No Shows, you may be subject to dismissal from the practice. We are happy to provide you with exceptional service and look forward to our continued role in yourhealth and medical care. Thank you The Staff and Providers at [facility] Thank you for choosing [facility] for your healthcare needs. If you have any questions or concerns, please feel free to contact our office. Thank You, LEE Alexander [facility] [phone] CREW OFFICER documented in this encounter Progress Notes * Azar Braxton MD - 07/07/2021 10:50 AM CST SUBJECTIVE: Cata Urena is a 36 year old female is here today for : Chief Complaint Patient presents with ??? Establish Care Screenings Future Falls: Depression: PHQ-2:PHQ2 TOTAL SCORE: 0 PHQ-9: Cognitive / Functional Status: HPI: No acute concerns. Review of Systems (10 bullets): Constitutional: No fevers/chills, fatigue Psych: Stable for depression or anxiety Eyes: No vision changes ENT: No hearing loss Cardiovascular: No chest pain, palpitations Respiratory: No shortness of breath or cough Gastrointestinal: No abdominal pain, change in bowel habits, black or bloody stools Genito-Urinary ROS: negative for hematuria Musculoskeletal ROS: negative Neurological: negative for dizziness or headaches Skin: negative for concerning skin lesions Endocrine: Negative for polyuria/polydipsia or heat/cold intolerance Breast: No masses or discharge Current Outpatient Medications Medication ??? ARIPiprazole (ABILIFY) 2 MG tablet ??? clonazePAM (KLONOPIN) 0.5 MG tablet ??? DULoxetine (CYMBALTA) 60 MG capsule ??? JOLESSA 0.15-0.03 MG tablet ??? lamoTRIgine XR 24hr (LAMICTAL XR) 100 MG tablet ??? traZODone (DESYREL) 50 MG tablet ??? vitamin D3 ([employer] VIT D 5000 HIGH-POTENCY) 5000 UNITS capsule No current facility-administered medications for this visit. Patient Active Problem List: Vaginal vestibulitis Vitamin D deficiency disease Allergic rhinitis due to pollen Gastroesophageal reflux disease Hip pain, chronic History of cervical dysplasia Bipolar disorder Insomnia Generalized anxiety disorder Past Medical History: Diagnosis Date ??? Depressive disorder, not elsewhere classified ??? Generalized anxiety disorder ??? Vaginal vestibulitis Past Surgical History: Procedure Laterality Date ??? Section 04/03/2011 ??? COLONOSCOPY 04/19/2013 COLONOSCOPY DIAGNOSTIC ??? COLONOSCOPY WITH BIOPSY 04/19/2013 COLONOSCOPY BIOPSY ??? ENDOSCOPY, UPPER 04/19/2013 ESOPHAGOGASTRODUODENOSCOPY (EGD) ??? ENDOSCOPY, UPPER 04/19/2013 ENDOSCOPY GI UPPER WITH BIOPSY ??? Trilla Tooth Extraction Family History Problem Relation Name Age of Onset ??? Arthritis - Rheumatoid Maternal Grandmother ??? CAD (Coronary Artery Disease) Maternal Grandmother ??? Diabetes Maternal Grandmother ??? Heart Failure Maternal Grandmother ??? Thyroid Disease Maternal Grandmother ??? Cancer Mother breast ??? Hypertension Mother ??? Thyroid Disease Mother ??? Hypercholesterolemia Father ??? Depression Father ??? Hypertension Father ??? Thyroid Disease Paternal Grandmother Social History Socioeconomic History ??? Marital status: Spouse name: Not on file ??? Number of children: 1 ??? Years of education: Not on file ??? Highest education level: Not on file Occupational History ??? 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 Smoking status: Never Smoker ??? Smokeless tobacco: Never Used Vaping Use ??? Vaping Use: Never used Substance and Sexual Activity ??? Alcohol use: Yes Comment: social - rare ??? Drug use: No ??? Sexual activity: Yes Partners: Male Other Topics Concern ??? Not on file Social History Narrative Merged History Encounter Social Determinants of Health Financial Resource Strain: Not on file Food Insecurity: Not on file Transportation Needs: Not on file Physical Activity: Not on file Stress: Not on file Social Connections: Not on file Intimate Partner Violence: Not on file Housing Stability: Not on file Patient's medical, surgical, social, and family history was reviewed and updated as above. OBJECTIVE (2 in 9 bullets): BP 120/71 Pulse 89 Resp 20 Ht 1.549 m (5' 1 ) Wt 54.4 kg (120 lb) SpO2 100% BMI 22.67 kg/m2 CrCl cannot be calculated (Patient's most recent lab result is older than the maximum 15 days allowed.). BP Readings from Last 3 Encounters: 07/07/21 120/71 04/20/19 120/64 09/25/17 101/51 Wt Readings from Last 3 Encounters: 07/07/21 54.4 kg (120 lb) 04/20/19 46.7 kg (103 lb) 09/25/17 44.9 kg (99 lb) GENERAL: well groomed, healthy appearing PSYCH: patient alert & oriented, mood: normal, and in no acute distress. EYE: conjunctiva normal B/L, pupils equal B/L ENT: EACs andTMs normal B/L. Post-pharynx unremarkable. NECK: supple with FROM. No thyroid tenderness LYMPH: No cervical or supraclavicular lymphadenopathy CARDIOVASCULAR: RRR without murmurs. (-) pitting edema. RESPIRATORY: Respirations unlabored. CTAB. Good air exchange B/L. ABDOMEN: Soft, NT/ND, no hepatosplenomegaly MUSCULOSKELETAL: gait normal. no clubbing/cyanosis. SKIN: warm and dry, no rashes in visible areas. NEURO: No focal neuro deficits BREAST and : Exam deferred No results found for this visit on 07/07/21. ASSESSMENT/PLAN: Encounter Diagnoses Name Primary? Routine physical examination Yes Orders Placed This Encounter ??? CBC WITH DIFFERENTIAL ??? COMPREHENSIVE METABOLIC PANEL ??? LIPID PROFILE ??? HEMOGLOBIN A1C ??? TSH HI LOW REFLEX FREE T4 ??? HIV-1 HIV-2 ANTIBODY + HIV P24 AG PANEL -Labs ordered as above. -Pap UTD. -Tetanus UTD per chart. Patient unsure on this, but declines vaccination. -COVID vaccine UTD. -Flu shot UTD. Followup: No follow-ups on file. Patient Instructions If your physician has placed a referral, centralized scheduling will contact you in 2 business days. If you do not receive a call, please call [phone]. If your insurance company requires a referral, please inform office staff. [facility] [place]- Family Medicine, Pediatrics & OBGYN Our providers and staff are invested in your healthcare. We are dedicated to taking our time with you to take care of your needs and make sure you have an exceptional experience when visiting our office. In order to provide exceptional care to you and your family, it is important that you keep yourappointments. We understand that emergencies happen, but please notify our office if you will not be able to keepyour scheduled appointment. Our office has a No Show policy; outlined below. Overview: ?? Missing scheduled appointments interferes with continued medical care and overall access for ourpatients. ??? If you need to reschedule your appointment, please cancel more than 24 hours in advance. ??? Automated reminders are provided to our patients for their appointments as a courtesy. The procedure for missed appointments is as follows: ??? First missed appointment. A letter will be mailed reminding you of the appointment and also provide information on rescheduling. ??? Additional missed appointments result in additional letters from your provider ??? After 3 No Shows, you may be subject to dismissal from the practice. We are happy to provide you with exceptional service and look forward to our continued role in yourhealth and medical care. Thank you The Staff and Providers at [facility] Thank you for choosing [facility] for your healthcare needs. If you have any questions or concerns, please feel free to contact our office. Thank You, LEE Alexander [facility] [phone] CREW OFFICER documented in this encounter Plan of Treatment Not on file documented as of this encounter Procedures Procedure Name Priority Date/Time Associated Diagnosis Comments HIV-1 HIV-2 ANTIBODY + HIV P24 AG PANEL Routine 07/07/2021 11:19 AM AIR CREW OFFICER Routine physical examination TSH HI LOW REFLEX FREE T4 Routine 07/07/2021 11:19 AM AIR CREW OFFICER Routine physical examination HEMOGLOBIN A1C Routine 07/07/2021 11:19 AM AIR CREW OFFICER Routine physical examination CBC W AUTO DIFFERENTIAL Routine 07/07/2021 11:19 AM AIR CREW OFFICER Routine physical examination COMPREHENSIVE METABOLIC PANEL Routine 07/07/2021 11:19 AM AIR CREW OFFICER Routine physical examination LIPID PROFILE Routine 07/07/2021 11:19 AM AIR CREW OFFICER Routine physical examination documented in this encounter Results * HIV-1 HIV-2 ANTIBODY + HIV P24 AG PANEL (07/07/2021 11:19 AM AIR CREW OFFICER) HIV Screen 4th Generation w Reflex Non Reactive Non Reactive [facility] INSURANCE BILL Blood BLOOD SPECIMEN / Unknown 07/07/2021 11:19 AM AIR CREW OFFICER 07/07/2021 Narrative Resulting Agency Comment [facility] performed at: [facility] [address] [facility] [facility] ??[facility] [id number] Azar Braxton MD LAB - CHEMISTRY TIFFANIE WILLS [facility] INSURANCE BILL [address] [place] [address] * TSH HI LOW REFLEX FREE T4 (07/07/2021 11:19 AM AIR CREW OFFICER) Pathologist [facility] TSH 2.852 0.350 - 4.940 uIU/mL [facility] INSURANCE BILL Blood BLOOD SPECIMEN / Unknown 07/07/2021 11:19 AM AIR CREW OFFICER 07/07/2021 Narrative Resulting Agency Comment Lab Testing performed at: [facility] [address] [facility] ?? [place] [id number] Azar Braxton MD LAB - CHEMISTRY TIFFANIE WILLS Performing Organization Address City/[facility]/ZIP Co de Phone Number [facility] INSURANCE BILL [address] [place] [address] * HEMOGLOBIN A1C (07/07/2021 11:19 AM AIR CREW OFFICER) Pathologist [facility] Hemoglobin A1c 5.0 4.2 - 5.6 % [facility] INSURANCE BILL Comment: AVERAGE GLUCOSE MG/DL BLOOD ??97 ? mg/dL The following cutoff levels are recommended by [place] Diab etes Association. A1c ??> 6.5% : considered as diabetes if two separate tests > 6.5% or in an appropriate clinical setting. A1c ??5.7% - 6.4% : considered as prediabetes (suggest increa sed risk for diabetes and cardiovascular disease) Control target level: ??Should be individualized. ??< 7 ??for g eneral (non-) , ??< 8% less stringent goal, ??< 6.5 ??more stringent g Hemoglobin A1c measurements are used as an aid in the diagno sis of diabetic mellitus, as an aid to identify patients who may be at the disease. ?? This method may yield falsely low results when fe love hemoglobin (HbF) exceeds 5% in the specimen. Blood BLOOD SPECIMEN / Unknown 07/07/2021 11:19 AM AIR CREW OFFICER 07/07/2021 Narrative Resulting Agency Comment Lab Testing performed at: [address] ?? [place] [id number] Azar Braxton MD LAB - CHEMISTRY TIFFANIE WILLS Performing Organization Address [place]/[facility]/ZIP Co de Phone Number [facility] INSURANCE BILL [address] [place] [address] * (ABNORMAL) LIPID PROFILE (07/07/2021 11:19 AM AIR CREW OFFICER) Cholesterol 232(H) <200 mg/dL [facility] INSURANCE BILL Triglycerides 134 <150 mg/dL [facility] INSURANCE BILL HDL Cholesterol 58 >40 mg/dL [facility] INSURANCE BILL VLDL Calculated 27 <=30 mg/dL [facility] INSURANCE BILL LDL Calculated 147(H) <130 mg/dL [facility] INSURANCE BILL Blood BLOOD SPECIMEN / Unknown 07/07/2021 11:19 AM AIR CREW OFFICER 07/07/2021 Narrative Resulting Agency Comment Lab Testing performed at: [address] ?? [place] [id number] Azar Braxton MD LAB - CHEMISTRY TIFFANIE WILLS Performing Organization Address [place]/[facility] Co de Phone Number [facility] INSURANCE BILL [address] [place] [address] * (ABNORMAL) COMPREHENSIVE METABOLIC PANEL (07/07/2021 11:19 AM AIR CREW OFFICER) Glucose 79 70 - 105 mg/dL [facility] INSURANCE BILL BUN 15 7 - 18.7 mg/dL [facility] INSURANCE BILL Creatinine 0.79 0.57 - 1.11 mg/dL [facility] INSURANCE BILL eGFR by MDRD >60 >60 mL/min/1.7 3m2 [facility] INSURANCE BILL eGFR by MDRD >60 >60 mL/min/1.7 3m2 [facility] INSURANCE BILL Sodium 138 136 - 145 mmol/L [facility] INSURANCE BILL Potassium 3.8 3.5 - 5.1 mmol/L [facility] INSURANCE BILL Chloride 101 98 - 107 mmol/L [facility] INSURANCE BILL CO2 22(L) 23 - 31 mmol/L [facility] INSURANCE BILL Calcium 9.7 8.4 - 10.4 mg/dL [facility] INSURANCE BILL Protein Total 7.4 6.4 - 8.3 gm/dL [facility] INSURANCE BILL Albumin 4.1 3.5 - 5.2 gm/dL [facility] INSURANCE BILL Bilirubin Total 0.4 0.2 - 1.2 mg/dL [facility] INSURANCE BILL Alkaline Phosphatase 73 40 - 150 U/L [facility] INSURANCE BILL AST 22 5 - 34 U/L [facility] INSURANCE BILL ALT 21 0 - 61 U/L [facility] INSURANCE BILL Blood BLOOD SPECIMEN / Unknown 07/07/2021 11:19 AM AIR CREW OFFICER 07/07/2021 Narrative Resulting Agency Comment Lab Testing performed at: [address] ?? [place] [id number] Azar Braxton MD LAB - CHEMISTRY [facility] Organization Address City/State/ZIP Co de Phone Number [facility] INSURANCE BILL [address] [place] [address] * (ABNORMAL) CBC WITH DIFFERENTIAL (07/07/2021 11:19 AM AIR CREW OFFICER) [facility] Signature WBC 7.8 4.4 - 10.7 x10E9/L [facility] INSURANCE BILL RBC 4.26 3.80 - 5.20 x10E12/L [facility] INSURANCE BILL Hemoglobin 12.6 12.0 - 15.6 gm/dL [facility] INSURANCE BILL Hematocrit 38.3 35.9 - 45.5 % [facility] INSURANCE BILL MCV 89.9 80.7 - 98.3 fl [facility] INSURANCE BILL MCH 29.6 26.7 - 34.0 pg [facility] INSURANCE BILL MCHC 32.9 30.8 - 35.9 gm/dL [facility] INSURANCE BILL RDW 13.2 12.1 - 14.9 % [facility] INSURANCE BILL Platelet Count 321 153 - 416 x10E9/L [facility] INSURANCE BILL Comment:MPV FL BLOOD ([facility]) 1 1.2 fl 9.4-12.9 Granulocytes % 35.8(L) 44.0 - 73.0 % [facility] INSURANCE BILL Lymphocytes % 53.1(H) 20.0 - 43.0 % [facility] INSURANCE BILL Monocytes % 8.7 5.0 - 13.0 % [facility] INSURANCE BILL Eosinophils % 2.0 0.0 - 6.0 % [facility] INSURANCE BILL Basophils % 0.3 0.0 - 2.0 % [facility] INSURANCE BILL Granulocytes Absolute 2.79 2.01 - 7.14 x10E9/L [facility] INSURANCE BILL Lymphocytes Absolute 4.15(H) 1.07 - 3.94 x10E9/L [facility] INSURANCE BILL Monocytes Absolute 0.68 0.26 - 1.07 x10E9/L [facility] INSURANCE BILL Eosinophils Absolute 0.16 0 - 0.47 x10E9/L [facility] INSURANCE BILL Basophils Absolute 0.02 0 - 0.08 x10E9/L [facility] INSURANCE BILL Immature Granulocytes 0.1 0 - 1 % [facility] INSURANCE BILL Immature Granulocytes Absolute 0.01 0.00 - 0.06 x10E9/L [facility] INSURANCE BILL nRBC 0 /100 WBC [facility] INSURANCE BILL Blood BLOOD SPECIMEN / Unknown 07/07/2021 11:19 AM AIR CREW OFFICER 07/07/2021 Narrative Resulting Agency Comment Lab Testing performed at: [address] ?? [place] [id number] Azar Braxton MD LAB - HEMATOLOGY ORD ERABLES [facility] INSURANCE BILL [address] [place] [address] documented in this encounter Visit Diagnoses Diagnosis Routine physical examination- Primary Routine general medical examination at a health care facility documented in this encounter Care Teams Rake Operator Relationship Specialty Start Date End Date Azar Braxton MD [address] [address] PCP - General Family Medicine 07/07/21 documented as of this encounter
--- OUTSIDE RECORDS SUMMARY | 2024-07-30 14:06 | XMS_ITS | Encounter Summary ---
Author Organization [facility] Health Address [address] [facility] [place] [address] Care Team Providers Care Wheel Lacer And Truer Name Role Phone Dona Beyer MD Primary Care Provider [phone] Encounter Details Date Type Department Care Team (Latest Contact Info) Description 05/13/2021 Travel Social History Tobacco Use Types Packs/Day Years Used Date Smoking Tobacco: Never Smokeless Tobacco: Never Alcohol Use Standard Drinks/Week Comments Yes 0 (1 standard drink = 0.6 oz pur e alcohol) social - rare Sex and Gender Information Value Date Recorded Sex Assigned at Not on file Gender Identity Female 08/19/2022 7:56 AM HAZARDOUS WASTE REMOVER Sexual Orientation Not on file COVID-19 Exposure Response Date Recorded In the last month, have you been in contact with someone who was confirmed or suspected to have Coronavirus / COVID-19? No / Unsure 05/13/2021 10:24 AM CDT documented as of this encounter Plan of Treatment Not on file documented as of this encounter Visit Diagnoses Not on filedocumented in this encounter Care Teams Wheel Lacer And Truer Relationship Specialty Start Date End Date Dona Beyer MD PCP - General Product Manager 03/26/20 07/06/21 documented as of this encounter
--- OUTSIDE RECORDS SUMMARY | 2024-07-30 14:06 | XMS_ITS | Patient Health Summary ---
Author Organization [facility] Address [address] 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 This disclosure is being madepursuant to the Care Everywhere program and may not contain all information available regarding this patient. Last updated 18.[facility] Allergies * Latex(Itching) * Reglan(GI Discomfort,Palpitations) * Adacel(Unknown) -Medium Criticality,Inactive * Metoclopramide(Bleeding) -Medium Criticality,Inactive * Tetanus Toxoid(Anaphylaxis) -High Criticality,Inactive * Tetanus Toxoid(Anaphylaxis) -High Criticality,Inactive Medications * Be aware that medications may not be up to date on this document. Alwaysverify current medications with the patient. * clonazePAM (KLONOPIN) 0.5 MG tablet Take 1 (one) tablet by mouth 2 times daily * DULoxetine (CYMBALTA) 60 MG capsule(Started 11/13/2015) Take 1 (one) capsule by mouth once daily 5 refills left * ARIPiprazole (Abilify) 2 MG tablet * traZODone (DESYREL) 50 MG tablet(Started 05/09/2020) * JOLESSA 0.15-0.03 MG tablet(Started 06/23/2021) * lamoTRIgine (LaMICtal) 100 MG tablet(Started 08/21/2022) * metoprolol succinate XL 24hr (Toprol XL) 25 MG tablet(Started 10/13/2022) TAKE 1 TABLET BY MOUTH EVERY DAY 3 refills by 10/13/2023 * verapamil (Isoptin) 40 MG tablet(Started 09/08/2023) TAKE 1 TABLET BY MOUTH THREE TIMES DAILY 2 refills by 09/07/2024 Active Problems Problem Noted Date Diagnosed Date Bipolar disorder 07/07/2021 Insomnia 07/07/2021 Generalized anxiety disorder 07/07/2021 History of cervical dysplasia 05/14/2020 Hip pain, chronic 03/31/2017 Gastroesophageal reflux disease 06/22/2016 Allergic rhinitis due to pollen 12/08/2015 Vitamin D deficiency disease 08/26/2015 Vaginal vestibulitis Resolved Problems Problem Noted Date Diagnosed Date Resolved Date Throat pain 09/25/2017 07/07/2021 Anxiety and depression 08/26/201507/07 Immunizations * [employer] primary monovalent 12+ yr 0.3mL Purple cap(Given 11/12/2020) * INFLUENZA(Given 05/21/2021, 05/22/2016, 05/14/2011) * INFLUENZA VACCINE, CELL CULTURE, QUADR. (FLUCELVAX QUADRIVALENT; 6MO+) (CCIIV4)(Given 05/17/2022, 05/15/2020) * INFLUENZA VACCINE, QUADR. 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 OPERATOR Sexual Orientation Not on file Last Filed Vital Signs Vital Sign Reading Time Taken Comments Blood Pressure 110/78 03/17/2023 1:17 PM CDT Pulse 88 03/17/2023 1:17 PM CDT Temperature 36.9 ??C (98.5 ??F) 03/17/2023 1:17 PM CD T Respiratory Rate 20 08/19/2022 2:34 PM IMPREGNATOR OPERATOR Oxygen Saturation 99% 03/17/2023 1:17 PM CDT Inhaled Oxygen Concentration 100% 2011 6 :05 PM CDT Weight 61.8 kg (136 lb 3.2 oz) 03/17/2023 1:17 P M CDT Height 154.9 cm (5' 1 ) 03/17/2023 1:17 PM CDT Body Mass Index 25.73 03/17/2023 1:17 PM CDT Procedures * ECHO COMPLETE(Performed 11/11/2022) Performed for Supraventricular tachycardia * EVENT MONITOR(Performed 08/22/2022) Performed for Palpitations * CBC W AUTO DIFFERENTIAL(Performed 08/19/2022) Performed for Palpitations * COMPREHENSIVE METABOLIC PANEL(Performed 08/19/2022) Performed for Palpitations * TSH REFLEX FREE T4(Performed 08/19/2022) Performed for Palpitations * HIV-1 HIV-2 ANTIBODY + HIV P24 AG PANEL(Performed 07/07/2021) Performed for Routine physical examination * TSH HI LOW REFLEX FREE T4(Performed 07/07/2021) Performed for Routine physical examination * HEMOGLOBIN A1C(Performed 07/07/2021) Performed for Routine physical examination * LIPID PROFILE(Performed 07/07/2021) Performed for Routine physical examination * COMPREHENSIVE METABOLIC PANEL(Performed 07/07/2021) Performed for Routine physical examination * CBC W AUTO DIFFERENTIAL(Performed 07/07/2021) Performed for Routine physical examination * PATHOLOGY/CYTOLOGY REPORT ORDER(Performed 08/23/2019) * CT HEAD WO CONTRAST(Performed 04/20/2019) Performed for Acute nonintractable headache, unspecified headache type * HCG URINE QUALITATIVE - POCT (IP) INTERFACED(Performed 04/20/2019) * HCG URINE QUAL POCT NOTIFICATION(Performed 04/20/2019) * BASIC METABOLIC PANEL (CALCIUM TOTAL)(Performed 04/20/2019) * CBC W AUTO DIFFERENTIAL(Performed 04/20/2019) * PATHOLOGY TISSUE EXAM (STL)(Performed 01/23/2019) Performed for Chronic left hip pain * INFLUENZA A+B - POCT (IP) URGENT CARE(Performed 09/25/2017) Performed for Throat pain * STREP A SCREEN - POCT (IP) URGENT CARE(Performed 09/25/2017) Performed for Throat pain * VITAMIN D 25-HYDROXY(Performed 03/29/2017) Performed for Vitamin D deficiency disease * TSH(Performed 03/29/2017) Performed for Anxiety and depression * COMPREHENSIVE METABOLIC PANEL(Performed 03/29/2017) Performed for Anxiety and depression * CBC W AUTO DIFFERENTIAL(Performed 03/29/2017) Performed for Anxiety and depression * LIPID PROFILE(Performed 03/29/2017) Performed for Anxiety and depression * CARDIAC EKG ORDER(Performed 12/07/2015) * CT ABDOMEN PELVIS WO CONTRAST(Performed 12/04/2015) Performed for SOB (shortness of breath), Dizziness, Abdominal pain, left upper quadrant * MONONUCLEOSIS SCREEN(Performed 12/04/2015) * EKG 12-LEAD(Performed 12/04/2015) Performed for Dizziness * HCG URINE QUALITATIVE - POINT OF CARE(Performed 12/04/2015) * URINALYSIS REFLEX MICROSCOPIC REFLEX CULTURE(Performed 12/04/2015) * CULTURE URINE(Performed 12/04/2015) * XR CHEST 1VW PORTABLE(Performed 12/04/2015) Performed for SOB (shortness of breath) * COMPREHENSIVE METABOLIC PANEL(Performed 12/04/2015) * CBC W AUTO DIFFERENTIAL(Performed 12/04/2015) * VITAMIN D 25-HYDROXY(Performed 10/15/2015) Performed for Vitamin D deficiency disease * CBC W AUTO DIFFERENTIAL(Performed 10/15/2015) Performed for Anxiety and depression, Hypercholesteremia * LIPID PROFILE W TCHOL/HDL(Performed 10/15/2015) Performed for Anxiety and depression, Hypercholesteremia * T4 FREE(Performed 10/15/2015) Performed for Anxiety and depression, Hypercholesteremia * TSH(Performed 10/15/2015) Performed for Anxiety and depression, Hypercholesteremia * COMPREHENSIVE METABOLIC PANEL(Performed 10/15/2015) Performed for Anxiety and depression, Hypercholesteremia * CREATININE CLEARANCE URINE TIMED + BLOOD(Performed 06/05/2015) * CREATININE BLOOD(Performed 06/05/2015) * PROTEIN URINE TIMED QUANTITATIVE(Performed 06/05/2015) * ALBUMIN URINE TIMED(Performed 06/05/2015) * CREATININE CLEARANCE URINE TIMED + BLOOD(Performed 06/05/2015) * XR CHEST 2VW(Performed 06/01/2015) * REF LAB COMMENT(Performed 06/01/2015) * NICOTINE + METABOLITES BLOOD(Performed 06/01/2015) * CYTOMEGALOVIRUS AB IGG/IGM RFLXD(Performed 06/01/2015) * CYTOMEGALOVIRUS TOT AB RFLX IGG/IGM DONOR(Performed 06/01/2015) * QUANTIFERON TB-GOLD (CLIENT INCUBATED)(Performed 06/01/2015) * WEST [place] VIRUS ANTIBODY IGG/IGM PANEL(Performed 06/01/2015) * HIV 1/0/2 RFLX TO WB DONOR(Performed 06/01/2015) * HEPATITIS B SURFACE AG RFLX NEUT DONOR(Performed 06/01/2015) * STRONGYLOIDES ANTIBODY IGG(Performed 06/01/2015) * TREPONEMA PALLIDUM AB IGG DONOR(Performed 06/01/2015) * HIV/HCV/HBV MACIEJ DONOR(Performed 06/01/2015) * EDWIN-MONTOYA VIRUS ANTIBODY TO VCA IGG(Performed 06/01/2015) * EDWIN-MONTOYA VIRUS ANTIBODY TO VCA IGM(Performed 06/01/2015) * HEPATITIS A ANTIBODY(Performed 06/01/2015) * HEPATITIS C AB W RFLX VERIFICATION(Performed 06/01/2015) * HEPATITIS B SURFACE ANTIBODY QUANT(Performed 06/01/2015) * RPR(Performed 06/01/2015) * HEMOGLOBIN A1C(Performed 06/01/2015) * HEPATITIS B CORE ANTIBODY TOTAL(Performed 06/01/2015) * URINALYSIS W/MICROSCOPIC NO CULTURE(Performed 06/01/2015) * PTT SLH(Performed 06/01/2015) * ALCOHOL ETHYL BLOOD(Performed 06/01/2015) * PHOSPHORUS BLOOD(Performed 06/01/2015) * PT-INR SLH(Performed 06/01/2015) * LIPID PROFILE(Performed 06/01/2015) * COMPREHENSIVE METABOLIC PANEL(Performed 06/01/2015) * URIC ACID BLOOD(Performed 06/01/2015) * CBC W AUTO DIFFERENTIAL(Performed 06/01/2015) * DRUG ABUSE PANEL 10-20+ETHANOL URINE NO CONFIRM(Performed 06/01/2015) * CULTURE URINE(Performed 06/01/2015) * CBC W AUTO DIFFERENTIAL(Performed 06/01/2015) * EKG 12-LEAD(Performed 06/01/2015) * HLA TYPING A,B,C MULTIPLE ANTIGEN(Performed 05/18/2015) * HLA TYPING SEROLOGIC DR,DQ(Performed 05/18/2015) * TYPE + SCREEN PANEL(Performed 05/18/2015) * URINALYSIS REFLEX TO MICROSCOPIC NO CULTURE(Performed 01/01/2015) * HCG URINE QUALITATIVE - POINT OF CARE(Performed 01/01/2015) * LIPASE BLOOD(Performed 01/01/2015) * COMPREHENSIVE METABOLIC PANEL(Performed 01/01/2015) * CBC W AUTO DIFFERENTIAL(Performed 01/01/2015) * CULTURE STREP GROUP A(Performed 10/14/2014) Performed for Sore throat * STREP A SCREEN - POINT OF CARE (AMB)(Performed 10/14/2014) Performed for Sore throat * XR CHEST 2VW(Performed 03/13/2014) Performed for Pneumonia, Back pain * XR CHEST 2VW(Performed 11/08/2013) Performed for Fever, Cough * HCG URINE QUALITATIVE - POCT (IP) URGENT CARE(Performed 11/08/2013) * PATHOLOGY/CYTOLOGY REPORT ORDER(Performed 04/22/2013) * CARDIAC RHYTHM STRIP ORDER(Performed 04/20/2013) * COLONOSCOPY BIOPSY (ANY METHOD)(Performed 04/19/2013) Performed for Other symptoms involving digestive system, Loss of weight * ESOPHAGOGASTRODUODENOSCOPY (EGD) BIOPSY(Performed 04/19/2013) Performed for Other symptoms involving digestive system, Loss of weight * ESOPHAGOGASTRODUODENOSCOPY (EGD) DIAGNOSTIC(Performed 04/19/2013) Performed for Other symptoms involving digestive system, Loss of weight * COLONOSCOPY DIAGNOSTIC(Performed 04/19/2013) Performed for Other symptoms involving digestive system, Loss of weight * ENDOSCOPY, COLON, DIAGNOSTIC(Performed 04/19/2013) Performed for Altered bowel habits, Weight loss * C DIFFICILE GDH AG + TOXIN A+B(Performed 04/19/2013) Performed for Diarrhea * GIARDIA CRYPTOSPORIDIUM ANTIGEN PANEL(Performed 04/19/2013) Performed for Diarrhea * CULTURE STOOL+ E COLI SHIGA-LIKE TOXIN(Performed 04/19/2013) Performed for Diarrhea * EGD(Performed 04/19/2013) * ENDOSCOPY, COLON, SCREENING(Performed 04/19/2013) * PATHOLOGY TISSUE EXAM (STL)(Performed 04/19/2013) Performed for Diarrhea * HCG URINE QUALITATIVE - POINT OF CARE(Performed 04/19/2013) * FOLATE RBC(Performed 04/03/2013) Performed for Altered bowel habits, Weight loss * VITAMIN B12(Performed 04/03/2013) Performed for Altered bowel habits, Weight loss * TISSUE TRANSGLUTAMINASE AB IGA(Performed 04/03/2013) Performed for Altered bowel habits, Weight loss * IGA BLOOD(Performed 04/03/2013) Performed for Altered bowel habits, Weight loss * US GALLBLADDER(Performed 03/07/2013) Performed for Abdominal pain, RUQ (right upper quadrant) * XR CHEST 2VW(Performed 03/02/2013) Performed for Chest Pain * COMPREHENSIVE METABOLIC PANEL(Performed 03/02/2013) * CBC W AUTO DIFFERENTIAL(Performed 03/02/2013) * TSH(Performed 03/02/2013) * AMYLASE BLOOD(Performed 03/02/2013) * LIPASE BLOOD(Performed 03/02/2013) * CARDIAC MARKER PANEL(Performed 03/02/2013) * EKG 12-LEAD(Performed 03/02/2013) * MAMMO BILAT SCREENING(Performed 08/23/2011) Performed for Family history of breast cancer in first degree relative * US ABDOMEN COMPLETE(Performed 08/02/2011) Performed for Nausea, Belching * URINE MICROSCOPIC ONLY(Performed 08/02/2011) Performed for Nausea, Belching * URINALYSIS REFLEX TO MICROSCOPIC NO CULTURE(Performed 08/02/2011) Performed for Nausea, Belching * T4 FREE(Performed 08/02/2011) Performed for Nausea, Belching * TSH(Performed 08/02/2011) Performed for Nausea, Belching * HELICOBACTER PYLORI ANTIBODIES (IGG,IGA,IGM)(Performed 08/02/2011) Performed for Nausea, Belching * LIPID PROFILE(Performed 08/02/2011) Performed for Nausea, Belching * LIPASE BLOOD(Performed 08/02/2011) Performed for Nausea, Belching * COMPREHENSIVE METABOLIC PANEL(Performed 08/02/2011) Performed for Nausea, Belching * CULTURE URINE COMPREHENSIVE(Performed 08/02/2011) Performed for Nausea, Belching * CBC W AUTO DIFFERENTIAL(Performed 08/02/2011) Performed for Nausea, Belching * AMYLASE BLOOD(Performed 08/02/2011) Performed for Nausea, Belching * IMAGING/RADIOLOGY/XRAY RESULTS ORDER(Performed 04/08/2011) * HGB HCT PANEL(Performed 2011) * XR ABDOMEN KUB(Performed 04/03/2011) Performed for Surgery follow-up examination * GROSS + MICRO EXAM(Performed 04/03/2011) * GROSS + MICRO EXAM(Performed 04/03/2011) * TYPE + SCREEN PANEL(Performed 04/03/2011) * CBC W AUTO DIFFERENTIAL(Performed 04/03/2011) * SONOGRAM - COMPLETE(Performed 12/22/2010) Performed for Encounter for routine screening for malformation using ultrasonics * TSH(Performed 07/23/2010) * CBC W AUTO DIFFERENTIAL(Performed 07/23/2010) * GLUCOSE(Performed 07/23/2010) * IRON + TRANSFERRIN PANEL(Performed 07/23/2010) * HCG BLOOD QUALITATIVE(Performed 07/23/2010) * XR OUTSIDE CONSULTATION(Performed 12/23/2009) Performed for Tuberculin Test Reaction * CULTURE FUNGUS OTHER+FUNGUS SMEAR(Performed 04/07/2009) * PH FLUID - POCT (AMB) SLU(Performed 08/14/1998) * WET PREP - POINT OF CARE (AMB) SLU(Performed 08/14/1998) Results * ECHO COMPLETE (11/11/2022 8:40 AM CDT) BSA [id number] m2 SSM CV FUJI PACS LV biplane [...] CV F UJI PACS LVOT mn dwaine [id number] cm/s SSM CV FUJI PACS LVOT mn [...] thickness. Normal systolic function. EF by 2D Emmbreno biplane is 60%. Normal wall motion. Normal [...] History: SVT Ruben Palumbo MD ECHO CUPID * EVENT MONITOR (08/22/2022 12:00 PM IMPREGNATOR OPERATOR) 08/22/2022 12:0 0 PM IMPREGNATOR OPERATOR Narrative Procedure Note Molly Redmond DO - 08/22/2022 11:[address] [facility] Event Monitor Report PATIENT NAME: ÁNGELA IBRAHIM MR#: [id number] AGE: 37 CSN: [id number] : 1985 DATE OF ADMISSION: 08/22/2022 DATE OF PROCEDURE: 08/22/2022 ROOM#: ADDITIONAL ORDERING PROVIDER: Molly Angeles. REASON FOR TEST: Palpitations. PRIMARY CARE PHYSICIAN: Jose Alberto Braxton MD. FINDINGS: The patient was monitored [...] rare PVCs. No other significant arrhythmia. cc: Jose Alberto Braxton MD NAME: ÁNGELA IBRAHIM DICTATOR: MOLLY REDMOND DO DICTATED FOR: SMW/MODL JOB ID: [id number] Cardiac Catheterization Report Jose Alberto Braxton MD CARDIAC SERVICES ORD ERABLES [facility] * (ABNORMAL) CBC WITH DIFFERENTIAL (08/19/2022 3:05 PM IMPREGNATOR OPERATOR) Only the most recent of13 resultswithin the time period is included. WBC 5.6 4.4 - 10.7 x10E9/L [facility] [...] x10E9/L [facility] INSURANCE BILL Comment:MPV FL BLOOD (SSM) 1 0.4 fl 9.4-12.9 Granulocytes % 28.7(L) 44.0 - [...] BLOOD SPECIMEN / Unknown 08/19/2022 3:05 PM IMPREGNATOR OPERATOR 08/19/2022 Narrative Resulting Agency Comment Lab Testing performed at: [address] ?? [place] [phone] Molly Angeles [employer] [facility] - HEMATO LOGY ORDERABLES Performing Organization Address City/[facility]/ZIP Co de Phone Number [facility] INSURANCE BILL [address] [place] [address] * TSH REFLEX FREE T4 (08/19/2022 3:04 PM IMPREGNATOR OPERATOR) TSH 0.721 0.350 - 4.940 uIU/mL [facility] INSURANCE BILL Blood BLOOD SPECIMEN / Unknown 08/19/2022 3:04 PM IMPREGNATOR OPERATOR 08/19/2022 Narrative Resulting Agency Comment Lab Testing performed at: [address] ?? [place] [phone] Molly Romanof [employer] - CHEMIS TRY ORDERABLES [facility] INSURANCE BILL [address] [place] [address] * (ABNORMAL) COMPREHENSIVE METABOLIC PANEL (08/19/2022 3:04 PM IMPREGNATOR OPERATOR) Only the most recent of9 resultswithin the time period is included. Glucose 121(H) 70 - 105 mg/dL [facility] [...] BLOOD SPECIMEN / Unknown 08/19/2022 3:04 PM IMPREGNATOR OPERATOR 08/19/2022 Narrative Resulting Agency Comment Lab Testing performed at: [address] ?? [place] [phone] Molly Angeles [employer] - CHEMIS TRY ORDERABLES [facility] INSURANCE BILL [address] [place] [address] * HIV-1 HIV-2 ANTIBODY + HIV P24 AG PANEL (07/07/2021 11:19 AM IMPREGNATOR OPERATOR) HIV Screen 4th Generation w Reflex Non Reactive Non Reactive [facility] INSURANCE BILL Blood BLOOD SPECIMEN / Unknown 07/07/2021 11:19 AM IMPREGNATOR OPERATOR 07/07/2021 Narrative Resulting Agency Comment Lab Testing performed at: [facility] [address] [facility] ??[facility] [phone] Jose Alberto Braxton MD LAB - CHEMISTRY TIFFANIE WILLS [facility] INSURANCE BILL [address] [place] [address] * TSH HI LOW REFLEX FREE T4 (07/07/2021 11:19 AM IMPREGNATOR OPERATOR) Pathologist [facility] TSH 2.852 0.350 - 4.940 uIU/mL [facility] INSURANCE BILL Blood BLOOD SPECIMEN / Unknown 07/07/2021 11:19 AM IMPREGNATOR OPERATOR 07/07/2021 Narrative Resulting Agency Comment Lab Testing performed at: [facility] [address] [facility] ?? [place] [phone] Jose Alberto Braxton MD LAB - CHEMISTRY TIFFANIE WILLS Performing Organization Address City/[facility]/ZIP Co de Phone Number [facility] INSURANCE BILL [address] [place] [address] * HEMOGLOBIN A1C (07/07/2021 11:19 AM IMPREGNATOR OPERATOR) Only the most recent of2 resultswithin the time period is included. Pathologist [facility] Hemoglobin A1c 5.0 4.2 - 5.6 % [facility] INSURANCE BILL Comment: AVERAGE GLUCOSE MG/DL BLOOD ??97 ? mg/dL The following cutoff levels are recommended by [place] [employer]. A1c ??> 6.5% : [...] BLOOD SPECIMEN / Unknown 07/07/2021 11:19 AM IMPREGNATOR OPERATOR 07/07/2021 Narrative Resulting Agency Comment Lab Testing performed at: [address] ?? [place] [phone] Jose Alberto Braxton MD LAB - CHEMISTRY TIFFANIE WILLS Performing Organization Address [facility] Co de Phone Number [facility] INSURANCE BILL [address] [place] [address] * (ABNORMAL) LIPID PROFILE (07/07/2021 11:19 AM IMPREGNATOR OPERATOR) Only the most recent of4 resultswithin the time period is included. Cholesterol 232(H) <200 mg/dL [facility] INSURANCE BILL Triglycerides 134 <150 mg/dL [facility] INSURANCE BILL HDL Cholesterol 58 >40 mg/dL [facility] INSURANCE BILL VLDL Calculated 27 <=30 mg/dL [facility] INSURANCE BILL LDL Calculated 147(H) <130 mg/dL [facility] INSURANCE BILL Blood BLOOD SPECIMEN / Unknown 07/07/2021 11:19 AM IMPREGNATOR OPERATOR 07/07/2021 Narrative Resulting Agency Comment Lab Testing performed at: [address] ?? [place] [phone] Jose Alberto Braxton MD LAB - CHEMISTRY TIFFANIE WILLS Performing Organization Address [facility] de Phone Number [facility] INSURANCE BILL [address] [place] [address] * PATHOLOGY/CYTOLOGY REPORT ORDER (08/23/2019 8:52 PM IMPREGNATOR OPERATOR) Only the most recent of2 resultswithin the time period is included. Narrative 08/23/2019 8:52 PM IMPREGNATOR OPERATOR Ordered by an unspecified provider. Scanned Document LAB - PATHOLOGY/CYTO LOGY ORDERABLES * CT HEAD WO CONTRAST (04/20/2019 2:51 PM CDT) Anatomical Region Laterality Modality Head Computed Tomogra phy 04/20/2019 2:58 PM CDT Impressions 04/20/2019 2:58 PM CDT No acute intracranial process. Reading Radiologist: Matthew Perdomo MD on 04/20/2019 at 2:58 PM [...] mastoid air cells are clear. Procedure Note Matthew Perdomo MD - 04/20/2019 CT Brain Without [...] IMPRESSION No acute intracranial process. Reading Radiologist: Matthew Perdomo MD on 04/20/2019 at 2:58 PM Patito Kolb PA-C CT ORDERABLES * HCG URINE QUALITATIVE - POCT (IP) INTERFACED (04/20/2019 1:05 PM CDT) HCG Qual Urine Negative Negative 04/20/2019 1:10 PM CDT [facility] Urine URINE / Unknown 04/20/2019 1 :05 PM CDT 04/20/2019 1:10 PM CDT Provider Unknown LAB - POINT OF CARE ORDERABLES [facility] [address] [place] [address] * HCG URINE QUAL POCT NOTIFICATION (04/20/2019 12:58 PM CDT) Comment Notification Label Only - See Separate Report 04/20/2019 2:00 PM CDT [facility] Urine URINE / Unknown 04/20/2019 1 2:58 PM CDT 04/20/2019 12:58 PM CDT Patito Kolb PA-C LAB - URINALYSIS O RDERABLES [facility] [address] [id number] * (ABNORMAL) BASIC METABOLIC PANEL (CALCIUM TOTAL) (04/20/2019 12:54 PM CDT) [facility] Glucose 112(H) 74 - 106 mg/dL 04/20/2019 1:24 PM CDT [facility] Sodium 136 136 - 145 mmol/L 04/20/2019 1:24 PM CDT [facility] Potassium 3.6 3.5 - 5.1 mmol/L 04/20/2019 1:24 PM CDT [facility] Chloride 100 98 - 107 mmol/L 04/20/2019 1:24 PM CDT [facility] CO2 23 23 - 31 mmol/L 04/20/2019 1:24 PM CDT [facility] Calcium 9.0 8.4 - 10.2 mg/dL 04/20/2019 1:24 PM CDT [facility] Anion Gap 13 8 - 16 mmol/L 04/20/2019 1:24 PM CDT [facility] BUN 15 7 - 18.7 mg/dL 04/20/2019 1:24 PM CDT [facility] Creatinine 0.92 0.55 - 1.02 mg/dL 04/20/2019 1:24 PM CDT [facility] eGFR by MDRD >60 >60 mL/min/1.7 3m2 04/20/2019 1:24 PM CDT [facility] eGFR by MDRD >60 >60 mL/min/1.7 3m2 04/20/2019 1:24 PM T [facility] Blood BLOOD SPECIMEN / Unknown Venipuncture / Unknown 04/20/2019 12:54 PM CDT 04/20/2019 1:05 PM CDT Patito Kolb PA-C LAB - CHEMISTRY OR DERABLES [facility] [address] [id number] * GROSS + MICRO EXAM (STL) (01/23/2019 7:45 AM CDT) Only the most recent of2 resultswithin the time period is included. Case Report Surgical Pathology Report ? Case: [id number] ? Authorizing Provider: ??Drew Orlando MD ? Collected: ? 01/23/2019 07:45 AM ? Ordering Location: ? [facility] ?Received: ?01/23/2019 12:56 PM ? Pathologist: ? Yuni Younger MD ? Specimens: ?? A) - Cervix Conization, ecto cervix 12 oclock ? B) - Cervix Conization, endo cervix ? 01/25/2019 12:03 PM CDT [facility] Final Diagnosis Uterus, cervix, conization: - High-grade squamous intraepithelial lesion (JOSE RAMON-2) - Margins negative for JOSE RAMON-2 Uterus, endocervix, excision: - No evidence of dysplasia or malignancy KL/na 01/25/2019 12:03 PM CDT [facility] Clinical History HGSIL. 01/25/2019 12:03 PM [facility] Gross Description Specimen received in two formalin-filled containers each labeled with the patient's name Ángela Ibrahim. The first container is additionally labeled ectocervix [...] and entirely submitted in B1 through B2. DELFIN/ 01/25/2019 12:03 PM [facility] Microscopic Description Histologic sections of the cervix cone show cervix at the transition zone with chronic inflammation and areas of high-grade squamous intraepithelial lesion (JOSE RAMON-2). The margins are negative for high-grade dysplasia. There is no evidence of invasive malignancy. Histologic sections of the endocervix show benign endocervix with no evidence of dysplasia or malignancy. DELFIN/kvng 01/25/2019 12:03 PM [facility] Disclaimer All histochemical and/or immunohistochemical results are interpreted with controls that demonstrate appropriate staining reactions before reporting results. Note on use of immunocytochemistry reagents: This test was developed and its performance characteristic determined by [facility], Department of Laboratory Medicine. It has not been cleared or approved by the U.S. Food and Drug Administration (FDA). The FDA has determined that such clearance or approval is not necessary. The test is used for clinical purpose. It should not be regarded as investigational or for research. This laboratory is certified to perform high complexity testing. 01/25/2019 12:03 PM CDT [facility] Embedded Images 01/25/2019 12:03 PM CDT [facility] Pathology/Cytology SPECIMEN FROM LESION OF UTERINE CERVIX OBTAINED BY [facility] / Unknown 01/23/2019 7:45 AM CDT 01/23/2019 12:56 PM CDT Miscellaneous samples (specimen) SPECIMEN FROM LESION OF UTERINE CERVIX OBTAINED BY [facility] / Unknown 01/23/2019 7:45 AM CDT 01/23/2019 12:56 PM CDT Nolan Orlando MD LAB - PATHOLOGY/CYTO LOGY ORDERABLES [facility] [address] [place] [address] * INFLUENZA A+B - POCT (IP) URGENT CARE (09/25/2017 6:43 PM IMPREGNATOR OPERATOR) Influenza A Antigen Rapid Negative Negative [facility] PO[facility] TEST[facility] Influenza B Antigen Rapid Negative Negative [facility] QC Verified Yes Yes [facility] POC T TESTING Throat ENTIRE THROAT (SURFACE REGION OF NECK) / Unknown 09/25/2017 6:43 PM IMPREGNATOR OPERATOR Monica Srinivasan APRN-[employer] LAB - POINT O F CARE ORDERABLES Performing Organization Address [facility] de Phone Number [facility] [address] [place] [phone] [place] [address] * (ABNORMAL) STREP A SCREEN - POCT (IP) URGENT CARE (09/25/2017 6:37 PM IMPREGNATOR OPERATOR) Strep A Rapid POCT Positive(A ) Negative [facility] POCT TESTING QC Verified Yes Yes [facility] POC T TESTING Throat ENTIRE THROAT (SURFACE REGION OF NECK) / Unknown 09/25/2017 6:37 PM IMPREGNATOR OPERATOR Monica Srinivasan APRN-[employer] LAB - POINT O F CARE ORDERABLES Performing Organization Address City/[facility]/ZIP Co de Phone Number [facility] [address] [place] [phone] [place] [address] * VITAMIN D 25-HYDROXY (03/29/2017 11:02 AM CDT) Only the most recent of2 resultswithin the time period is included. Vitamin D, 25 Hydroxy 34.8 30.0 - 100.0 ng/mL [facility] ACCOUNT BILL Comment: Vitamin D deficiency has been defined by the Petroleum of Medicine and an Endocrine Society practice guideline as a level of serum 25-OH vitamin D less than 20 ng/mL (1,2). The Endocrine Society went on to further define vitamin D insufficiency as a level between 21 and 29 ng/mL (2). 1. IOM (Petroleum of Medicine). 2010. Dietary reference ?? intakes for calcium and D. [place]: The ?? National A[employer]ona Press. 2. Brooke MF, Annette PAYNE, Clarice MORGAN, et al. ?? Evaluation, treatment, and prevention of vitamin D ?? deficiency: an Endocrine Society clinical practice ?? guideline. JCEM. 2010; 96(7):1911-30. FASTING Blood BLOOD SPECIMEN / Unknown 03/29/2017 11:02 AM CDT 03/29/2017 Narrative Resulting Agency Comment [facility] [address] ??[facility] [phone] Avery Hidalgo DO LAB - CHEMISTRY TIFFANIE WILLS Performing Organization Address City/[facility]/ZIP Co de Phone Number [facility] ACCOUNT BILL [address] [place] [address] * TSH (03/29/2017 11:02 AM CDT) Only the most recent of5 resultswithin the time period is included. TSH 1.430 0.450 - 4.500 uIU/mL [facility] ACCOUNT BILL Comment:FASTING Blood BLOOD SPECIMEN / Unknown 03/29/2017 11:02 AM CDT 03/29/2017 Narrative Resulting Agency Comment [facility] [address] ??[facility] [phone] Avery Hidalgo DO LAB - CHEMISTRY ORDE RABJESUS Performing Organization Address City/[facility]/ZIP Co de Phone Number [facility] ACCOUNT BILL [address] [place] [address] * CARDIAC EKG ORDER (12/07/2015 9:03 PM CDT) Narrative 12/07/2015 9:03 PM CDT Ordered by an unspecified provider. Scanned Document CARDIAC SERVICES ORD ERABLES * CT ABDOMEN AND PELVIS NON IV CONTRAST (12/04/2015 1:38 PM CDT) Anatomical Region Laterality Modality Abdomen, Pelvis Computed Tomogra phy 12/04/2015 1:42 PM CDT Impressions 12/04/2015 1:44 PM CDT No evidence of renal calculus or obstruction Narrative 12/04/2015 1:[address] ABDOMEN AND PELVIS WITHOUT CONTRAST Clinical Indication: Left flank pain Technique: Axial CT images from the lung bases through the pubic symphysis were obtained without intravenous contrast. Findings: The lung bases are clear. The spleen, adrenal glands, liver, gallbladder, pancreas, and kidneys are normal on this noncontrast CT scan. Specifically no renal or ureteral calculus is identified. No hydronephrosis or perinephric stranding. The bowel is normal in course and caliber. No free air or or free fluid. The ovaries are symmetric. No suspicious osseous lesion. Procedure Note Cherlele Mancera MD - 12/04/2015 CT ABDOMEN AND PELVIS WITHOUT CONTRAST Clinical Indication: Left flank pain Technique: Axial CT images from the lung bases through the pubic symphysis were obtained without intravenous contrast. Findings: The lung bases are clear. The spleen, adrenal glands, liver, gallbladder, pancreas, and kidneys are normal on this noncontrast CT scan. Specifically no renal or ureteral calculus is identified. No hydronephrosis or perinephric stranding. The bowel is normal in course and caliber. No free air or or free fluid. The ovaries are symmetric. No suspicious osseous lesion. IMPRESSION No evidence of renal calculus or obstruction Lydia Villaseñor MD CT ORDERABLES * MONONUCLEOSIS SCREEN (12/04/2015 12:57 PM CDT) Pathologist [facility] Mononucleosis Screen Negative Negative 12/04/2015 1:20 PM CDT [facility] Blood BLOOD SPECIMEN / Unknown 12/04/2015 12:57 PM CDT 12/04/2015 1:05 PM CDT Lydia Villaseñor MD LAB - CHEMISTRY TIFFANIE LOREEJESUS [facility] [address] [address] * EKG 12-LEAD (12/04/2015 12:22 PM CDT) Only the most recent of3 resultswithin the time period is included. Ventricular Rate 99 BPM [facility] MUSE Atrial Rate 99 BPM [facility] MUSE P-R Interval 114 ms [facility] MUSE QRS Duration ms 94 ms [facility] MUSE Q-T Interval ms 340 ms [facility] MUSE QTC Calculation (Bezet) 436 ms [facility] MUSE Calculated P [place] 70 degrees [facility] MUSE Calculated R [place] 70 degrees [facility] MUSE Calculated T [place] 64 degrees [facility] MUSE Interpretation EKG Normal sinus rhythm RSR' or QR pattern in V1 suggests right ventricular conduction delay When compared with ECG of 02-MAR-2013 19:44, No significant change was found Confirmed by Solomon Lopez ([id number]) on 12/06/2015 10:48:05 AM [facility] MUSE 12/04/2015 12:2 2 PM CDT 12/06/2015 10:48 AM CDT Lydia Villaseñor MD ECG ORDERABLES Performing Organization Address City/[facility]/ZIP Co de Phone Number [facility] MUSE * HCG URINE QUALITATIVE - POINT OF CARE (IP) (12/04/2015 12:16 PM CDT) Only the most recent of3 resultswithin the time period is included. HCG Qual Urine Negative Negative [facility] POCT TESTING QC Verified Yes Yes [facility] POC T TESTING Urine specimen (specimen) URINE / Unknown 12/04/2015 12:16 PM CDT Lydia Villaseñor MD LAB - POINT OF CARE ORDERABLES Performing Organization Address City/[facility]/ZIP Co de Phone Number [facility] POCT TESTING [address] [place] [address], [facility] * (ABNORMAL) URINALYSIS ROUTINE W/REFLEX TO CULTURE (12/04/2015 12:04 PM CDT) Color UA Yellow Straw, Yellow, Dark Yellow 12/04/2015 12:19 PM [facility] Clarity UA Clear 12/04/2015 12:19 PM [facility] Specific [place] UA 1.014 1.005 - 1.030 12/04/2015 12:19 PM [facility] pH UA 8.5(H) 5.0 - 8.0 pH 12/04/2015 12:19 PM [facility] Protein UA Negative Negative 12/04/2015 12:19 PM [facility] Blood UA Negative Negative 12/04/2015 12:19 PM [facility] Leukocyte UA Trace(A) Negative 12/04/2015 12:19 PM [facility] Nitrite UA Negative Negative 12/04/2015 12:19 PM [facility] Glucose UA Negative Negative 12/04/2015 12:19 PM [facility] Ketone UA Negative Negative 12/04/2015 12:19 PM [facility] Bilirubin UA Negative Negative 12/04/2015 12:19 PM [facility] Urobilinogen UA 0.2 0.1 - 1.0 EU/dL 12/04/2015 12:19 PM [facility] WBC UA Auto 0-2 0-2, 2-5 # /hpf 12/04/2015 12:19 PM [facility] RBC UA Auto 2-5 0-2, 2-5 # /hpf 12/04/2015 12:19 PM [facility] Epithelial Cell UA Auto 2-5 0-2, 2-5 # /hpf 12/04/2015 12:19 PM [facility] Bacteria UA Auto 1+(A) None seen 12/04/2015 12:19 PM [facility] Reflex Status Culture to follow 12/04/2015 12:19 PM [facility] Urine URINE SPECIMEN OBTAINED BY CLEAN CATCH PROCEDURE / Unknown 12/04/2015 12:04 PM CDT 12/04/2015 12:10 PM T Lydia Villaseñor MD LAB - URINALYSIS ORD ERABLES [facility] [address] [address] * CULTURE URINE (12/04/2015 12:04 PM CDT) Only the most recent of2 resultswithin the time period is included. Culture <10,000 CFU/mL urogenital colton KERVIN 12/06/2015 7:38 AM CDT [facility] MICROBIOLOGY Urine URINE SPECIMEN OBTAINED BY CLEAN CATCH PROCEDURE / Unknown 12/04/2015 12:04 PM CDT 12/04/2015 12:10 PM CDT Lydia Villaseñor MD LAB - MICROBIOLOGY O RDERABLES [facility] MICROBIOLOGY [address] [place] [address] [phone] * XR CHEST 1VW PORTABLE (12/04/2015 12:02 PM CDT) Anatomical Region Laterality Modality Chest Radiographic Tracy ging 12/04/2015 12:0 4 PM CDT Impressions 12/04/2015 12:05 PM CDT No acute process Narrative 12/04/2015 12:05 PM CDT Portable Chest AP History: Shortness of breath left-sided rib pain Findings: Prior from March 13, 2014. Heart size is normal and the lungs are clear and no pneumothorax or pleural effusion is seen. No visible fracture. Procedure Note Price Alejandre MD - 12/04/2015 Portable Chest AP History: Shortness of breath left-sided rib pain Findings: Prior from March 13, 2014. Heart size is normal and the lungs are clear and no pneumothorax or pleural effusion is seen. No visible fracture. IMPRESSION No acute process Lydia Villaseñor MD DIAGNOSTIC IMAGING O RDERABLES * LIPID PROFILE W TCHOL/HDL (PO REF LAB) (10/15/2015 9:20 AM IMPREGNATOR OPERATOR) Cholesterol 199 <200 mg/dL [facility] INSURANCE BILL Triglycerides 133 <150 mg/dL [facility] INSURANCE BILL HDL Cholesterol 66 >40 mg/dL [facility] INSURANCE BILL VLDL Calculated 27 <=30 mg/dL [facility] INSURANCE BILL LDL Calculated 106 <130 mg/dL [facility] INSURANCE BILL Comment:LDL/HDL RATIO BLOOD ([facility]) 1.6 <5.0 Cholesterol/HDL Ratio 3.0 <4.5 [facility] INSURANCE BILL Blood specimen (specimen) BLOOD SPECIMEN / Unknown 10/15/2015 9:20 AM IMPREGNATOR OPERATOR 10/15/2015 3:44 PM IMPREGNATOR OPERATOR Narrative Resulting Agency Comment [address] ??[place] [phone] Avery Hidalgo DO LAB - CHEMISTRY TIFFANIE WILLS Performing Organization Address City/[facility]/ZIP Co de Phone Number [facility] INSURANCE BILL * T4 FREE (10/15/2015 9:20 AM IMPREGNATOR OPERATOR) Only the most recent of2 resultswithin the time period is included. T4 Free 0.86 0.65 - 1.34 ng/dL [facility] INSURANCE BILL Blood specimen (specimen) BLOOD SPECIMEN / Unknown 10/15/2015 9:20 AM IMPREGNATOR OPERATOR 10/15/2015 3:44 PM IMPREGNATOR OPERATOR Narrative Resulting Agency Comment [address] ??[place] [phone] Avery Hidalgo DO LAB - CHEMISTRY TIFFANIE WILLS [facility] INSURANCE BILL * ALBUMIN URINE TIMED (06/05/2015 10:56 AM CDT) Albumin Random Urine <5.0 Not Established mcg/mL [facility] Collection Time Timed Urine 24 Hrs [facility] Albumin 24 Hour Urine <30 mg/24 hrs [facility] Comment:Unable to calculate excretion rate because the analyte concentration is outside the instrument measuring range. Volume Timed Urine 1,550 mL [facility] Urine specimen (specimen) URINE SPECIMEN OBTAINED BY CLEAN CATCH PROCEDURE / Unknown 06/05/2015 10:56 AM CDT 06/05/2015 1:15 PM CDT Annette Singh MD LAB - URINE CHEMISTR Y ORDERABLES Performing Organization Address City/[facility]/ZIP Co de Phone Number [address] [phone] * PROTEIN URINE TIMED QUANTITATIVE (06/05/2015 10:56 AM CDT) Protein Urine <7 Not Established mg/dL [facility] Collection Time Timed Urine 24 Hrs [facility] Protein 24 Hour Urine 77 - 197 mg/24 hrs [facility] Comment:Unable to calculate excretion rate because the analyte concentration is outside the instrument measuring range. Volume Timed Urine 1,550 mL [facility] Urine specimen (specimen) URINE SPECIMEN OBTAINED BY CLEAN CATCH PROCEDURE / Unknown 06/05/2015 10:56 AM CDT 06/05/2015 1:15 PM CDT Annette Singh MD LAB - URINE CHEMISTR Y ORDERABLES Performing Organization Address City/[facility]/ZIP Co de Phone Number [address] [phone] * CREATININE BLOOD (06/05/2015 10:56 AM CDT) Creatinine 0.8 0.6 - 1.2 mg/dL [facility] eGFR >60 >60 mL/min/1.73 m2 [facility] Blood specimen (specimen) BLOOD SPECIMEN / Unknown 06/05/2015 10:56 AM CDT 06/05/2015 1:15 PM CDT Annette Singh MD LAB - CHEMISTRY TIFFANIE WILLS Performing Organization Address City/[facility]/ZIP Co de Phone Number [address] [phone] * CREATININE CLEARANCE URINE TIMED + BLOOD (06/05/2015 10:56 AM CDT) Only the most recent of2 resultswithin the time period is included. Creatinine Urine 59 Not Established mg/dL [facility] Creatinine 0.8 0.6 - 1.2 mg/dL [facility] Volume Timed Urine 1,550 mL [facility] Collection Time Timed Urine 24 Hrs [facility] Creatinine Clearance 79 70 - 130 mL/minute/1.73m 2 [facility] Chart BSA 1.41 Avg. BSA = 1.73 m2 m2 [facility] Creatinine Clearance (Corrected for BSA) 97 Not Established mL/minute [facility] Urine specimen (specimen) URINE SPECIMEN OBTAINED BY CLEAN CATCH PROCEDURE / Unknown 06/05/2015 10:56 AM CDT 06/05/2015 1:15 PM CDT Annette Singh MD LAB - URINE CHEMISTR Y ORDERABLES [address] [phone] * XR CHEST 2VW (06/01/2015 8:12 AM CDT) Only the most recent of4 resultswithin the time period is included. Anatomical Region Laterality Modality Chest Other Impressions 06/01/2015 12:11 PM CDT Impression: No acute pulmonary disease. Report dictated by Jovany Sears M.D. (vice president commercial [employer]). This report was approved ??by Jovany Sears M.D. ?? on 06/01/2015 11:50 AM . I, Dr. Dr. MATTHEW TAYLOR MD have personally reviewed and interpreted this examination/study. This report was electronically signed by Dr. MATTHEW TAYLOR MD ??on 06/01/2015 12:11 PM . Narrative 06/01/2015 12:11 PM CDT Exam: ??XR CHEST PA AND LATERAL Date: 06/01/2015 8:12 AM History: ??potential living donor Comparison: None available. Findings: No focal consolidation, pleural effusion, or pneumothorax is seen. The heart size and mediastinal contours are normal. The visible osseous structures are intact. Procedure Note Matthew Taylor MD - 11/11/2017 Exam: XR CHEST PA AND LATERAL Date: 06/01/2015 8:12 AM History: potential living donor Comparison: None available. Findings: No focal consolidation, pleural effusion, or pneumothorax is seen. Theheart size and mediastinal contours are normal. The visible osseousstructures are intact. IMPRESSION Impression: No acute pulmonary disease. Report dictated by Jovany Sears M.D. (vice president [employer]). This report was approved by Jovany Sears M.D. on 06/01/2015 11:50AM . I, Dr. Dr. MATTHEW TAYLOR MD have personally reviewed and interpreted thisexamination/study. This report was electronically signed by Dr. MATTHEW TAYLOR MD on06/01/2015 12:11 PM . Annette Singh MD DIAGNOSTIC IMAGING O RDERABLES * PTT [facility] (06/01/2015 7:43 AM CDT) APTT 28.6 23.0 - 38.4 Seconds [facility] Comment:Suggested therapeuti c range for full dose I.V. heparin therapy for venous thromboembolism is 66.0-91.0 seconds. Blood specimen (specimen) BLOOD SPECIMEN / Unknown 06/01/2015 7:43 AM CDT 06/01/2015 8:48 AM CDT Narrative [facility] - 06/01/2015 9:11 AM CDT Is patient on Heparin, Argatroban or Dabigatran?->N Annette Singh MD LAB - COAGULATION OR DERABLES [address] [phone] * PT-INR [facility] (06/01/2015 7:43 AM CDT) PT 14.6 12.1 - 14.8 Seconds [facility] INR 1.1 See Comment [facility] Comment: Suggested therapeutic range for low-intensity coumadin therapy for venous thromboembolism prophylaxis is an INR of 2.0-3.0. ??For high risk patients (Mitral Valve Prosthesis, Atrial Fibrillation, history of TIA/stroke), suggested prophylactic therapeutic range is an INR of 2.5-3.5. Blood specimen (specimen) BLOOD SPECIMEN / Unknown 06/01/2015 7:43 AM CDT 06/01/2015 8:48 AM CDT Narrative [facility] - 06/01/2015 9:10 AM CDT Is patient on Heparin, Argatroban or Dabigatran?->N Annette Singh MD LAB - COAGULATION OR DERABLES Performing Organization Address [facility]/State/[facility] Co de Phone Number [facility] [address] [place] [address], [facility] [phone] * (ABNORMAL) CYTOMEGALOVIRUS AB IGG/IGM RFLXD (06/01/2015 7:43 AM CDT) Cytomegalovirus Antibody IgG 5.50(H) 0.00 - 0.59 U/mL [facility] (BEAKER) Comment: ? Negative ?<0.60 ? Equivocal ?? 0.60 - 0.69 ? Positive ?>0.69 Cytomegalovirus Antibody IgM <30.0 0.0 - 29.9 AU/mL [facility] (BEAKER) Comment: ?Negative ? <30.0 ?Equivocal ??30.0 - 34.9 ?Positive ? >34.9 A positive result is generally indicative of acute infection, reactivation or persistent IgM production. Blood specimen (specimen) BLOOD SPECIMEN / Unknown 06/01/2015 7:43 AM CDT 06/01/2015 8:59 AM CDT Narrative [facility] ([place] - 06/05/2015 3:21 PM CDT Performed at: ??02 - [address] ??[id number] [employer] Supervisor: Willi Horne MD, Phone: ??[phone] Annette Singh MD LAB - SEROLOGY ORDER SHARON Performing Organization Address [facility] Co de Phone Number [facility] ([place] * TREPONEMA PALLIDUM AB IGG DONOR (06/01/2015 7:43 AM CDT) Donor Treponema pallidum Antibody IgG Non Reactive Non Reactive [facility] Comment: Test performed with [employer] CAPTIA Syphilis (T. pallidum)-G kit. Blood specimen (specimen) BLOOD SPECIMEN / Unknown 06/01/2015 7:43 AM CDT 06/01/2015 9:18 AM CDT Narrative [facility] ([place] - 06/02/2015 7:10 PM CDT Performed at: ??01 - [employer] [address] ??[id number] [employer] Supervisor: Andry Ty PhD, Phone: ??[phone] Annette Singh MD LAB - SEROLOGY ORDER SHARON Performing Organization Address [facility] de Phone Number [facility] EKTA HUMA) * HIV-1/HCV MACIEJ DONOR (06/01/2015 7:43 AM CDT) HIV-1/HCV/HBV MACIEJ Comment Non Reactive [facility] Comment: Nonreactive for HIV-1 RNA ?Nonreactive for HCV RNA ?Nonreactive for HBV DNA Test performed with Amanda Huff [employer] Ultrio Assay kit. Blood specimen (specimen) BLOOD SPECIMEN / Unknown 06/01/2015 7:43 AM CDT 06/01/2015 8:59 AM CDT Narrative [facility] ([place]) - 06/02/2015 7:10 PM CDT Performed at: ??01 - [facility] [address] ??[id number] [employer] Supervisor: Andry Ty PhD, Phone: ??[phone] Annette Singh MD LAB - CHEMISTRY TIFFANIE WILLS Performing Organization Address City/[facility]/ZIP Co de Phone Number [facility] EK[facility]laSI[facility] [place]) * HIV 1/0/2 DONOR (06/01/2015 7:43 AM CDT) Donor HIV-1/O/2 Antibody Negative Negative [facility] ([facility] [place]) Comment:Test performed with Sims Prism HIV O Plus kit. Blood specimen (specimen) BLOOD SPECIMEN / Unknown 06/01/2015 7:43 AM CDT 06/01/2015 9:18 AM CDT Narrative [facility] ([facility] - 06/03/2015 6:16 AM CDT Performed at: ??01 - [facility] [address] [place] [address] ??[id number] [employer] Supervisor: Andry Ty PhD, Phone: ??[phone] Annette Singh MD LAB - CHEMISTRY TIFFANIE WILLS Performing Organization Address City/[facility]/ZIP Co de Phone Number [facility] RAYRAY GutiérrezSI[facility] [place]) * HEPATITIS B SURFACE ANTIGEN RFLX DONOR (06/01/2015 7:43 AM CDT) Hepatitis B Virus Surface Antigen Negative Negative [facility] ([facility]) Comment:Test performed with Sims Prism HBsAg kit. Blood specimen (specimen) BLOOD SPECIMEN / Unknown 06/01/2015 7:43 AM CDT 06/01/2015 9:18 AM CDT Narrative [facility] ([facility]) - 06/03/2015 6:16 AM CDT Performed at: ??01 - [facility] [address] ??[id number] [employer] Supervisor: Andry Ty PhD, Phone: ??[phone] Annette Singh MD LAB - CHEMISTRY TIFFANIE WILLS [facility] ([facility]) * (ABNORMAL) CYTOMEGALOVIRUS TOT AB RFLX IGG/IGM DONOR (06/01/2015 7:43 AM CDT) Donor Cytomegalovirus Total Antibody Reactive( A) Non Reactive [facility] ([facility]) Comment:Test performed with [employer] Capture-CMV IgG and IgM kit. Blood specimen (specimen) BLOOD SPECIMEN / Unknown 06/01/2015 7:43 AM CDT 06/01/2015 8:59 AM CDT Narrative [facility] ([facility]) - 06/05/2015 3:21 PM CDT Performed at: ??01 - [employer] [address] [place] [address] ??[id number] [employer] Supervisor: Andry Ty PhD, Phone: ??[phone] Annette Singh MD LAB - SEROLOGY ORDER SHARON Performing Organization Address [facility]/ZIP Co de Phone Number [facility] ([facility]) * HEPATITIS C AB W RFLX VERIFICATION (06/01/2015 7:43 AM CDT) [facility] Hepatitis C Antibody <0.1 0.0 - 0.9 s/co ratio [facility] ([facility]) 06/01/2015 7:43 AM CDT 06/01/2015 9:18 AM CDT Narrative [facility]) - 06/02/2015 6:15 AM CDT Performed at: ??01 - [facility] [address] ??[id number] [employer] Supervisor: Erasmo Morris PhD, Phone: ??[phone] Annette Singh MD LAB - CHEMISTRY TIFFANIE WILLS [facility] ([facility]) * QUANTIFERON TB-GOLD INC (06/01/2015 7:43 AM CDT) Pathologist [facility] QuantiFERON TB Gold Negative Negative [facility] (BEAKER) Comment: The specimen received for QuantiFERON testing was incubated by the ordering institution. ??Specific procedures outlined in our Directory of Services and in the package insert for the QuantiFERON Gold (In Tube) test must be followed to enable for proper stimulation of cells for the production of interferon gamma. QuantiFERON Criteria Comment [facility] Comment: To be considered positive a specimen should have a TB Ag minus Nil value greater than or equal to 0.35 IU/mL and in addition the TB Ag minus Nil value must be greater than or equal to 25% of the Nil value. There may be insufficient information in these values to differentiate between some negative and some indeterminate test values. QuantiFERON TB Antigen Value 0.13 IU/mL [facility] (BEAKER) QuantiFERON Nil Value 0.16 IU/mL [facility] (BEAKER) QuantiFERON Mitogen Value >10.00 IU/mL [facility] ([place]) QFT TB Ag minus Nil Value <0.00 IU/mL [facility] ([place]) Interpretation Comment [facility] ([place]) Comment: The QuantiFERON TB Gold (in Tube) assay is intended for use as an aid in the diagnosis of TB infection. Negative results suggest that there is no TB infection. In patients with high suspicion of exposure, a negative test should be repeated. A positive test indicates infection with Mycobacterium tuberculosis. Among individuals without tuberculosis infection, a positive test may be due to exposure to M. kansasii, M. szulgai or M. marinum. On the Internet, go to cdc.gov/tb for further details. Blood specimen (specimen) BLOOD SPECIMEN / Unknown 06/01/2015 7:43 AM CDT 06/01/2015 8:47 AM CDT Narrative [facility] ([facility]) - 06/04/2015 6:14 AM CDT Performed at: ??01 - [facility] [address] ??[id number] [employer] Supervisor: Erasmo Morris PhD, Phone: ??[phone] Annette Singh MD LAB - SEROLOGY ORDER SHARON [facility] ([place]) * (ABNORMAL) URINALYSIS W/MICROSCOPIC NO CULTURE (06/01/2015 7:43 AM CDT) Color UA Yellow Straw, Yellow, Colorless, Light Yellow [facility] Clarity UA Clear Clear [facility] Specific [place] UA 1.012 1.001 - 1.030 [facility] pH UA 5.0 5.0 - 8.0 [facility] Protein UA Negative <=20 mg/dL [facility] Glucose UA 300(A) Negative mg/dL [facility] Ketone UA Negative Negative mg/dL [facility] Bilirubin UA Negative Negative mg/dL [facility] Blood UA Negative Negative [facility] Nitrite UA Negative Negative [facility] Leukocyte Esterase Moderate(A) Negative [facility] Urobilinogen UA <2.0 <2.0 mg/dL [facility] RBC UA 1 0 - 8 /HPF [facility] WBC UA 6(H) 0 - 2 /HPF [facility] Bacteria UA Occasional Rare, Occasional, None /HPF [facility] Squamous Epithelial Cells UA 1 0 - 1 /HPF [facility] Mucus UA Many(A) None /LPF [facility] Urine specimen (specimen) URINE SPECIMEN OBTAINED BY CLEAN CATCH PROCEDURE / Unknown 06/01/2015 7:43 AM CDT 06/01/2015 8:47 AM CDT Annette Singh MD LAB - URINALYSIS ORD ERABLES [address] [phone] * REF LAB COMMENT (06/01/2015 7:43 AM CDT) Comment Comment [facility] ([place]) Comment: Non reactive HCV antibody screen is consistent with no HCV infection, unless recent infection is suspected or other evidence exists to indicate HCV infection. Blood specimen (specimen) 06/01/2015 7:43 AM CDT 06/01/2015 9:18 AM CDT Narrative [facility] ([place]) - 06/02/2015 6:15 AM CDT Performed at: ??01 - [address] ??[id number] [employer] Supervisor: Erasmo Morris PhD, Phone: ??[phone] Annette Singh MD LAB - CHEMISTRY ORDE JOHANN Performing Organization Address [facility] Co de Phone Number [facility] ([facility] * HEPATITIS B SURFACE ANTIBODY QUANT (06/01/2015 7:43 AM CDT) [facility] Hepatitis B Virus Surface Antibody Quantitative 112.6 Immunity>9 .9 mIU/mL [facility] ([place]) Comment: ??Status of Immunity ? Anti-HBs Level ? Inconsistent with Immunity ? 0.0 - 9.9 Consistent with Immunity ?>9.9 Blood specimen (specimen) BLOOD SPECIMEN / Unknown 06/01/2015 7:43 AM CDT 06/01/2015 9:18 AM CDT Narrative [facility]) - 06/02/2015 6:15 AM CDT Performed at: ??01 - [address] ??[id number] [employer] Supervisor: Erasmo Morris PhD, Phone: ??[phone] Annette Singh MD LAB - SEROLOGY ORDER SHARON Performing Organization Address [facility] Co de Phone Number [facility] ([place]) * DRUG ABUSE PANEL 10-20+ETHANOL URINE NO CONFIRM (06/01/2015 7:43 AM CDT) Pathologist [facility] Amphetamines Screen Urine Negative Negative: < 1000 ng/mL [facility] Barbiturates Screen Urine Negative Negative: < 200 ng/mL [facility] Benzodiazepine Screen Urine Negative Negative: < 200 ng/mL [facility] Opiates Urine Negative Negative: < 300 ng/mL [facility] Cocaine Metabolites Urine Negative Negative: < 300 ng/mL [facility] Phencyclidine Screen Urine Negative Negative: < 25 ng/ml [facility] Cannabinoids Screen Urine Negative Negative: <50 ng/mL [facility] Methadone Screen Urine Negative Negative: < 300 ng/mL [facility] Urine specimen (specimen) URINE / Unknown 06/01/2015 7:43 AM CDT 06/01/2015 8:46 AM CDT Narrative [facility] - 06/01/2015 9:05 AM CDT The Urine Toxicology Screening Panel does not screen for Propoxyphene, Meprobamate, Carisoprodol, Trazodone, ntdi-fty-tqhztov medications and/or volatiles (Acetone, Isopropanol, Methanol or Ethylene Glycol). Ethanol, Salicylate, Acetaminophen, Tricyclic Antidepressants and several therapeutic drugs may be individually assayed in serum or plasma specimen. Toxicology testing by the [facility] is an aid to medical diagnosis and treatment of patients. No documented chain of custody was maintained. Results are intended to be used for clinical purposes only. ? Annette Singh MD LAB - URINE CHEMISTR Y ORDERABLES [facility] [address] [place] [address], [facility] [phone] * URIC ACID BLOOD (06/01/2015 7:43 AM CDT) Pathologist [facility] Uric Acid 5.0 2.6 - 7.2 mg/dL [facility] Blood specimen (specimen) BLOOD SPECIMEN / Unknown 06/01/2015 7:43 AM CDT 06/01/2015 8:48 AM CDT Annette Singh MD LAB - CHEMISTRY TIFFANIE WILLS Performing Organization Address City/[facility]/ZIP Co de Phone Number [address] [phone] * WEST NILE VIRUS ANTIBODY IGG/IGM PANEL (06/01/2015 7:43 AM CDT) [facility] West Nile Virus AB IGG Negative Negative [facility] ([place]) Comment: No detectable West Nile Virus IgG Antibody. If a recent infection is suspected, another specimen should be submitted for testing within 7-14 days. West Nile Virus AB IGM Negative Negative [facility] ([place]) Comment: No detectable West Nile Virus IgM Antibody. If a recent infection is suspected, another specimen should be submitted for testing within 7-14 days. Blood specimen (specimen) BLOOD SPECIMEN / Unknown 06/01/2015 7:43 AM CDT 06/01/2015 9:18 AM CDT Narrative [facility] ([place]) - 06/03/2015 3:19 PM CDT Performed at: ??01 - [address] ??[id number] [employer] Supervisor: Willi Horne MD, Phone: ??[phone] Annette Singh MD LAB - CHEMISTRY TIFFANIE WILLS [facility] ([facility]) * STRONGYLOIDES ANTIBODY IGG (06/01/2015 7:43 AM CDT) Pathologist [facility] Strongyloides Antibody IgG 0.01 <=1.49 IV [facility] ([place]) Comment: INTERPRETIVE INFORMATION: Strongyloides Ab, IgG by TOMY ??1.49 IV or less....... Negative - No significant ? level of Strongyloides IgG ? antibody detected. ??1.50 - 2.10 IV ....... Equivocal - Questionable ? presence of Strongyloides IgG ? antibody detected. Repeat ? testing in 10-14 days may be ? helpful. ??2.11 IV or greater ... Positive - IgG antibodies to ? Strongyloides detected, which ? may suggest current or past ? infection. Test developed and characteristics determined by [employer]. See Compliance Statement D: [employer] Blood specimen (specimen) BLOOD SPECIMEN / Unknown 06/01/2015 7:43 AM CDT 06/01/2015 9:18 AM CDT Annette Singh MD LAB - SEROLOGY ORDER SHARON [facility] ([place]) * EDWIN-MONTOYA VIRUS ANTIBODY TO VCA IGM (06/01/2015 7:43 AM CDT) Edwin-Montoya VCA Antibody IgM <10.0 0.0 - 43.9 U/mL [facility] ([place]) Comment: INTERPRETIVE INFORMATION: Edwin-Montoya Virus Antibody to ?Viral Capsid Antigen, IgM ??35.9 U/mL or less.......Not Detected ?36.0-43.9 U/mL..........Indeterminate - Repeat testing in ?10-14 days may be helpful. ??44.0 U/mL or greater....Detected Interpretive information regarding serologic features of EBV-associated diseases is available at [email or web address]. Blood specimen (specimen) BLOOD SPECIMEN / Unknown 06/01/2015 7:43 AM CDT 06/01/2015 9:18 AM CDT Annette Singh MD LAB - SEROLOGY ORDER SHARON Performing Organization Address [facility]/ZIP Co de Phone Number [facility]) * RPR (06/01/2015 7:43 AM CDT) Pathologist [facility] RPR Non-reacti ve Non-reacti ve [facility] Blood specimen (specimen) BLOOD SPECIMEN / Unknown 06/01/2015 7:43 AM CDT 06/01/2015 8:50 AM CDT Annette Singh MD LAB - CHEMISTRY ORDE RABJESUS Performing Organization Address [facility]/ZIP Co de Phone Number [address] [phone] * (ABNORMAL) EDWIN-MONTOYA VIRUS ANTIBODY TO VCA IGG (06/01/2015 7:43 AM CDT) Pathologist [facility] Edwin-Montoya Virus Antibody To Viral Capsid Antigen IgG 114.0(H) 0.0 - 21.9 U/mL [facility] ([place]) Comment: INTERPRETIVE INFORMATION: Edwin-Montoya Virus Antibody to ?Viral Capsid Antigen, IgG ??17.9 U/mL or less.......Not Detected ??18.0-21.9 U/mL..........Indeterminate - Repeat testing in ?10-14 days may be helpful. ??22.0 U/mL or greater....Detected Interpretive information regarding serologic features of EBV-associated diseases is available at [email or web address]. Blood specimen (specimen) BLOOD SPECIMEN / Unknown 06/01/2015 7:43 AM CDT 06/01/2015 9:18 AM CDT Annette Singh MD LAB - CHEMISTRY TIFFANIE WILLS Performing Organization Address [facility]/ZIP Co de Phone Number [facility] ([place]) * NICOTINE + METABOLITES BLOOD (06/01/2015 7:43 AM CDT) Pathologist [facility] Nicotine None Detected ng/mL [facility] ([place]) Comment: Nicotine levels greater than 2.0 are consistent with the use of tobacco or tobacco cessation products. Cotinine None Detected ng/mL [facility] ([place]) Comment: Cotinine levels greater than 20.0 are consistent with the use of tobacco or tobacco cessation products. Blood specimen (specimen) BLOOD SPECIMEN / Unknown 06/01/2015 7:43 AM CDT 06/01/2015 8:48 AM CDT Narrative [facility] ([place]) - 06/07/2015 7:06 PM CDT Performed at: ??01 - [facility] [address] ??[id number] [employer] Supervisor: Willi Horne MD, Phone: ??[phone] Annette Singh MD LAB - CHEMISTRY TIFFANIE WILLS Performing Organization Address City/[facility]/ZIP Co de Phone Number [facility] ([place]) * PHOSPHORUS BLOOD (06/01/2015 7:43 AM CDT) Pathologist [facility] Phosphorus 2.4 2.3 - 4.7 mg/dL [facility] Blood specimen (specimen) BLOOD SPECIMEN / Unknown 06/01/2015 7:43 AM CDT 06/01/2015 8:48 AM CDT Annette Singh MD LAB - CHEMISTRY TIFFANIE WILLS Performing Organization Address [facility]/ZIP Co de Phone Number [address] [phone] * HEPATITIS B CORE ANTIBODY (06/01/2015 7:43 AM CDT) Pathologist [facility] HBc Antibody Total Non-reacti ve Non-reacti ve [facility] Blood specimen (specimen) BLOOD SPECIMEN / Unknown 06/01/2015 7:43 AM CDT 06/01/2015 8:50 AM CDT Annette Singh MD LAB - CHEMISTRY TIFFANIE WILLS Performing Organization Address [facility] Co de Phone Number [address] [phone] * ALCOHOL ETHYL BLOOD (06/01/2015 7:43 AM CDT) Pathologist [facility] Interpretation Ethanol None Detected None Detected mg/dL [facility] Comment:Ethanol levels less than 10 mg/dL are resulted as None detected . Blood specimen (specimen) BLOOD SPECIMEN / Unknown 06/01/2015 7:43 AM CDT 06/01/2015 8:48 AM CDT Annette Singh MD LAB - CHEMISTRY TIFFANIE WILLS Performing Organization Address [facility] Co de Phone Number [address] [phone] * (ABNORMAL) HEPATITIS A ANTIBODY (06/01/2015 7:43 AM CDT) Pathologist [facility] Hepatitis A Virus Antibody Total Positive(A ) Negative [facility] ([place]) Blood specimen (specimen) 06/01/2015 7:43 AM CDT 06/01/2015 9:18 AM CDT Narrative [facility] ([place]) - 06/02/2015 6:15 AM CDT Performed at: ??01 - [address] ??[id number] [employer] Supervisor: Erasmo Morris PhD, Phone: ??[phone] Annette Singh MD LAB - CHEMISTRY ORDGeo WILLS Performing Organization Address City/[facility]/ZIP Co de Phone Number [facility] ([place]) * HLA TYPING SEROLOGIC DR,DQ (05/18/2015 8:49 AM CDT) DR1 1 [facility] ([place]) DR2 11 [facility] ([place]) DRW-1 52 [facility] ([place]) DRW-2 - [facility]) DQ 1 5 [facility] ([place]) DQ 2 7 [facility] ([place]) DRDQ Test Date 05/28/20 15 [facility] ([place]) Comment: This test was developed and its performance characteristics determined bythe [facility]. ??It has not been cleared or approved by theU.S. Food and Drug Administration. ??The FDA has determined that suchclearance or approval is not necessary. ?? This test is used for clinicalpurposes. ??It should not be regarded as investigational or for research.This laboratory is certified under the Clinical Laboratory ImprovementAmendments of 1988 (CLIA-88) as qualified to perform high complexityclinical laboratory testing.Performed at: ??[facility], [address] @ [facility], [place] ??[id number] Director: Douglas Pham MD, Blood specimen (specimen) BLOOD SPECIMEN / Unknown 05/18/2015 8:49 AM CDT 05/18/2015 9:09 AM CDT Annette Singh MD LAB - BLOOD BANK ORD ERABLES [facility] ([place]) * HLA TYPING A,B,C MULTIPLE ANTIGEN (05/18/2015 8:49 AM CDT) ABC Serotype A1 1 [facility] ([place]) ABC Serotype A2 2 [facility] ([place]) ABC Serotype B1 8 [facility] ([place]) ABC Serotype B2 51 [facility] ([place]) ABC Serotype BW1 6 [facility] ([place] ABC Serotype BW2 4 [facility] ([place]) ABC Serotype Cw-1 2 [facility] ([place]) ABC Serotype Cw-2 5 [facility] ([place]) ABC Serotype Test Date 05/28/20 15 [facility] ([place]) Comment: This test was developed and its performance characteristics determined bythe [facility]. ??It has not been cleared or approved by theU.S. Food and Drug Administration. ??The FDA has determined that suchclearance or approval is not necessary. ?? This test is used for clinicalpurposes. ??It should not be regarded as investigational or for research.This laboratory is certified under the Clinical Laboratory ImprovementAmendments of 1988 (CLIA-88) as qualified to perform high complexityclinical laboratory testing.Performed at: ??[facility], [address] @ [facility], [place] ??[id number] Director: Douglas Pham MD, Blood specimen (specimen) BLOOD SPECIMEN / Unknown 05/18/2015 8:49 AM CDT 05/18/2015 9:09 AM CDT Annette Singh MD LAB - BLOOD BANK ORD [facility] ([place]) * TYPE + SCREEN PANEL (05/18/2015 8:49 AM CDT) Only the most recent of2 resultswithin the time period is included. Typem O POS [facility] Antibody Screen NEG [facility] Blood specimen (specimen) 05/18/2015 8:49 AM CDT 05/18/2015 9:12 AM CDT Annette Singh MD LAB - BLOOD BANK ORD ERABLES [facility] [address] [place] [address], [facility] * (ABNORMAL) URINALYSIS ROUTINE AUTO (01/01/2015 2:10 AM CDT) Only the most recent of2 resultswithin the time period is included. Color UA Yellow Straw, Yellow, Dark Yellow 01/01/2015 2:24 AM T [facility] Clarity UA Clear 01/01/2015 2:24 AM T [facility] Specific [place] UA 1.021 1.005 - 1.030 01/01/2015 2:24 AM [facility] pH UA 5.5 5.0 - 8.0 pH 01/01/2015 2:24 AM [facility] Protein UA Negative Negative 01/01/2015 2:24 AM [facility] Blood UA Negative Negative 01/01/2015 2:24 AM [facility] Leukocyte UA 2+(A) Negative 01/01/2015 2:24 AM [facility] Nitrite UA Negative Negative 01/01/2015 2:24 AM [facility] Glucose UA Negative Negative 01/01/2015 2:24 AM [facility] Ketone UA 1+(A) Negative 01/01/2015 2:24 AM [facility] Bilirubin UA Negative Negative 01/01/2015 2:24 AM [facility] Urobilinogen UA 0.2 0.1 - 1.0 EU/dL 01/01/2015 2:24 AM [facility] WBC UA Auto 20-50(A) 0-2, 2-5 # /hpf 01/01/2015 2:24 AM [facility] RBC UA Auto 2-5 0-2, 2-5 # /hpf 01/01/2015 2:24 AM [facility] Epithelial Cell UA Auto 2-5 0-2, 2-5 # /hpf 01/01/2015 2:24 AM [facility] Bacteria UA Auto 1+(A) None seen 01/01/2015 2:24 AM [facility] Hyaline Casts UA Auto 2-5(A) 0 - 2 #/lpf 01/01/2015 2:24 AM [facility] Urine Microscopy Urine microscopy not indicated 01/01/2015 2:24 AM CDT [facility] Urine URINE SPECIMEN OBTAINED BY CLEAN CATCH PROCEDURE / Unknown 01/01/2015 2:10 AM CDT 01/01/2015 2:15 AM CDT Jayne Chen MD LAB - URINALYSIS ORD ERABLES Performing Organization Address City/[facility]/ZIP Co de Phone Number [facility] [address] [id number] * LIPASE BLOOD (01/01/2015 1:04 AM CDT) Only the most recent of3 resultswithin the time period is included. Lipase 141 73 - 393 U/L 01/01/2015 1:31 AM CDT [facility] Blood BLOOD SPECIMEN / Unknown 01/01/2015 1:04 AM CDT 01/01/2015 1:13 AM CDT Jayne Chen MD LAB - CHEMISTRY ORDE RABLES [facility] [address] [address] * (ABNORMAL) CULTURE STREP GROUP A (10/14/2014 3:51 PM IMPREGNATOR OPERATOR) Beta-Strep Culture, Group A Only (A) [facility] ACCOUNT BILL Comment: Beta-hemolytic colonies, not group A Streptococcus isolated. Penicillin and ampicillin are drugs of choice for treatment of beta-hemolytic streptococcal infections. Susceptibility testing of penicillins and other beta-lactam agents approved by the FDA for treatment of beta-hemolytic streptococcal infections need not be performed routinely because nonsusceptible isolates are extremely rare in any beta-hemolytic streptococcus and have not been reported for Streptococcus pyogenes (group A). (CLSI 2011) Miscellaneous samples (specimen) ENTIRE THROAT (SURFACE REGION OF NECK) / Unknown 10/14/2014 3:51 PM IMPREGNATOR OPERATOR 10/14/2014 9:09 PM IMPREGNATOR OPERATOR Narrative Resulting Agency Comment [facility] [address] ??[facility] [phone] Jeremie Kolb MD LAB - MICROBIOLOGY O RDERABLES [facility] ACCOUNT BILL * STREP A SCREEN - POINT OF CARE (AMB) (10/14/2014 3:50 PM IMPREGNATOR OPERATOR) Strep A Rapid POCT Negative Negative Strep A Internal Control NEGATIVE - POSITIVE Throat swab (specimen) NASOPHARYNGEAL SWAB / Unknown 10/14/2014 3:50 PM IMPREGNATOR OPERATOR Jeremie Kolb MD LAB - POINT OF CARE ORDERABLES * HCG URINE QUALITATIVE - POCT (IP) URGENT CARE (11/08/2013 4:48 PM CDT) HCG Qual Urine Negative Negative [facility] POCT TESTING QC Verified Yes Yes [facility] POC T TESTING Urine specimen (specimen) URINE / Unknown 11/08/2013 4:48 PM CDT Tana Sosa [employer] LAB - POI NT OF CARE ORDERABLES Performing Organization Address [facility] Co de Phone Number [facility] POCT TESTING [address] [place] [address] * CARDIAC RHYTHM STRIP ORDER (04/20/2013 9:29 PM CDT) Narrative 04/20/2013 9:29 PM CDT Ordered by an unspecified provider. Transcriptions Document, Scanned - 04/20/2013 9:29 PM CDT Scanned Document CARDIAC SERVICES ORD ERABLES * ENDOSCOPY, COLON, DIAGNOSTIC (04/19/2013 11:09 AM CDT) Narrative Riya Martinez - 04/19/2013 11:09 AM CDT Josiah Breen MD ? 04/19/2013 11:09 AM EGD- Minimal distal esophageal erythema, biopsies taken. Otherwise, normal except scant clear fluid. Random duodenal biopsies taken. Colon- Normal exam to ileum. Random ileal and colon biopsies taken. Stool collected. A/P: F/U stool studies and biopsies. Will follow up in office. A scan was deleted from the Results section by Eloy Martinez [AKSHAT] on 04/25/2013 at ??9:06 AM (File: [id number]) Reason: linked to wrong order Procedure Note Josiah Beren MD - 04/19/2013 11:08 AM CDT EGD- Minimal distal esophageal erythema, biopsies taken. Otherwise, normal except scant clear fluid. Random duodenal biopsies taken. Colon- Normal exam to ileum. Random ileal and colon biopsies taken. Stool collected. A/P: F/U stool studies and biopsies. Will follow up in office. Josiah Breen MD GI PROCEDURE ORDERAB LES * CLOSTRIDIUM DIFFICILE [facility] AG + TOXIN A+B (04/19/2013 10:59 AM CDT) [facility] Antigen Negative Negative, Uninterpretable 3 5:34 PM CDT [facility] C difficile Toxin A + B Negative Negative, Uninterpretable 3 5:34 PM CDT [facility] Interpretation C difficile Negative for toxigenic C. difficile Negative for toxigenic C. difficile 3 5:34 PM CDT [facility] Stool STOOL SPECIMEN / Unknown Collection / Unknown 04/19/2013 10:59 AM CDT 04/19/2013 12:42 PM CDT Josiah Breen MD LAB - MICROBIOLOGY O RDERABLES Performing Organization Address City/State/[facility] Co de Phone Number [facility] [address] [facility] [address] * CULTURE STOOL+SHIGA-LIKE TOXIN (04/19/2013 10:59 AM CDT) Culture No growth Salmonella, Shigella, Campylobacter , E. coli 0157:[id number] or [place] 04/21/2013 8:30 AM CDT [facility] MICROBIOLOGY Culture Shiga Toxin Negative 04/21/2013 8:30 AM CDT [facility] MICROBIOLOGY Stool STOOL SPECIMEN / Unknown Collection / Unknown 04/19/2013 10:59 AM CDT 04/19/2013 12:42 PM CDT Josiah Breen MD LAB - MICROBIOLOGY O MEMO Performing Organization Address [facility] de Phone Number [facility] [address] [place], [place] [id number] [place] [address] * GIARDIA CRYPTOSPORIDIUM ANTIGEN PANEL (04/19/2013 10:59 AM CDT) Giardia Antigen DFA Negative Negative 04/22/2013 2:06 PM CDT [facility] MICROBIOLOGY Cryptosporidium Antigen DFA Negative Negative 04/22/2013 2:06 PM CDT [facility] MICROBIOLOGY Stool STOOL SPECIMEN / Unknown Collection / Unknown 04/19/2013 10:59 AM CDT 04/19/2013 12:42 PM CDT Narrative [facility] MICROBIOLOGY - 04/22/2013 2:06 PM CDT A single O and P exam may be insufficient to diagnose an intestinal parasite infection. Additional specimens are recommended if patient remains symptomatic. CAUTION: Cyclospora will not be detected by routine Ova and Parasite testing. A separate lab order, Parasitology stain by Modified Acid Fast, must be placed specifically for Cyclospora which will be sent to [facility]. Specimen must be collected in 10% formalin. CAUTION: Cyclospora will not be detected by routine Ova and Parasite testing. A separate lab order, Parasitology Stain by Modified Acid Fast, must be placed specifically for Cyclospora which will be sent to [facility]. Specimen must be collected in 10% formalin. Josiah Breen MD LAB - MICROBIOLOGY Vilma [place] Performing Organization Address City/[facility] Co de Phone Number [facility] [address] [place] [address], [facility] * EGD (04/19/2013 10:40 AM CDT) Report Endoscopy POC ___ _ Patient Name: Romel Camma ?Procedure Date: 04/19/2013 10:40 AM Gender: Female ? Date of : 1985 ?Age: 28 Admit Type: Outpatient ?Room: ROOM 1 ?Note Status: Finalized Attending MD: Josiah Breen MD ?? ___ _ Procedure: ? Upper GI endoscopy Indications: ? Generalized abdominal distress, Weight loss Providers: ? Josiah Breen MD, Emmy Freeman RN, Antonietta Hughes ? RUBÉN Adan Referring MD: ?Molly Alvarado MD (Referring MD) Medicines: ? Propofol per Anesthesia Complications: ? No immediate complications. ___ _ Procedure: ? After obtaining informed consent, the endoscope was passed ? under direct vision. Throughout the procedure, the ? patient's blood pressure, pulse, and oxygen saturations ? were monitored continuously. The GIF H 180 was introduced ? through the mouth, and advanced to the third part of ? duodenum. ? Findings: ? Patchy mild erythema was found in the lower third of the esophagus. ? Biopsies were taken with a cold forceps for histology. ? Clear fluid was found in the gastric body. Fluid aspiration was ? performed. ? The examined duodenum was normal. Biopsies were taken with a cold ? forceps for histology. ___ _ ? Impression: ?- Normal esophagus. ? - Clear gastric fluid. ? - Normal examined duodenum. This was biopsied. Recommendation: ?- Await pathology results. ? - Perform a colonoscopy today. ? Josiah Breen MD 04/19/2013 11:04 AM This report has been signed electronically. Number of Addenda: 0 Note Initiated On: 04/19/2013 10:40 AM Estimated Blood Loss: ? Estimated blood loss: none. [facility] 04/19/2013 10:4 0 AM CDT Narrative [facility] - 04/19/2013 11:06 AM CDT Procedure Note Josiah Breen MD - 04/19/2013 11:06 AM CDT Josiah Breen MD GI PROCEDURE ORDERAB LES [facility] * ENDOSCOPY, COLON, SCREENING (04/19/2013 10:40 AM CDT) Report Endoscopy POC ___ _ Patient Name: Romel Ivy ?Procedure Date: 04/19/2013 10:40 AM Gender: Female ? Date of : 1985 ?Age: 28 Admit Type: Outpatient ?Room: ROOM 1 ?Note Status: Finalized Attending MD: Josiah Breen MD ?? ___ _ Procedure: ? Colonoscopy Indications: ? Generalized abdominal distress, Change in bowel habits, ? Weight loss Providers: ? Josiah Breen MD, Emmy Freeman, RUBÉN, Antonietta Hughes ? Loco RN, Grupo Cruz CRNA (Anesthesia Staff) Referring MD: ?Molly Alvarado MD (Referring MD) Medicines: ? Propofol per Anesthesia Complications: ? No immediate complications. ___ _ Procedure: ? After I obtained informed consent, the scope was passed ? under direct vision. Throughout the procedure, the ? patient's blood pressure, pulse, and oxygen saturations ? were monitored continuously. The CF H 180 was introduced ? through the anus and advanced to the terminal ileum. The ? quality of the bowel preparation was good. Scope ? withdrawal time was 8 minutes. ? Findings: ? The terminal ileum appeared normal. Biopsies were taken with a cold ? forceps for histology. ? The entire examined colon appeared normal. Biopsies were taken with a ? cold forceps for histology. ___ _ ? Impression: ?- The examined portion of the ileum was normal. This was ? biopsied. ? - The entire examined colon is normal. This was biopsied. Recommendation: ?- Await pathology results. ? - Lactose-free diet. ? - Return to my office. ? Josiah Breen MD 04/19/2013 11:07 AM This report has been signed electronically. Number of Addenda: 0 Note Initiated On: 04/19/2013 10:40 AM Estimated Blood Loss: ? Estimated blood loss: none. [facility] 04/19/2013 10:4 0 AM CDT Narrative [facility] - 04/19/2013 11:09 AM CDT Procedure Note Josiah Breen MD - 04/19/2013 11:09 AM CDT Josiah Breen MD GI PROCEDURE ORDERAB LES [facility] * FOLATE RBC (04/03/2013 9:58 AM CDT) Folate Hemolysate 372.0 Not Estab. ng/mL [facility] ACCOUNT BILL Hematocrit 41.9 34.0 - 46.6 % [facility] ACCOUNT BILL Folate RBC 888 499 - 1,504 ng/mL [facility] ACCOUNT BILL Blood specimen (specimen) BLOOD SPECIMEN WITH EDTA / Unknown 04/03/2013 9:58 AM CDT 04/03/2013 1:06 PM CDT Narrative Resulting Agency Comment [facility] [address] ??[facility] [phone] Josiah Breen MD LAB - CHEMISTRY TIFFANIE WILLS [facility] ACCOUNT BILL * TISSUE TRANSGLUTAMINASE AB IGA (04/03/2013 9:54 AM CDT) TTG Antibody IgA <2 0 - 3 U/mL [facility] ACCOUNT BILL Comment: ? Negative ?0 - ??3 ? Weak Positive ?? 4 - 10 ? Positive ? >10 ?. ?Tissue Transglutaminase (tTG) has been identified ?as the endomysial antigen. ??Studies have demonstr- ?ated that endomysial IgA antibodies have over 99% ?specificity for gluten sensitive enteropathy. Blood specimen (specimen) BLOOD SPECIMEN / Unknown 04/03/2013 9:54 AM CDT 04/03/2013 1:06 PM CDT Narrative Resulting Agency Comment [facility] [place] [address] [place] [address] ??[facility] [phone] Josiah Breen MD LAB - SEROLOGY ORDER SHARON [facility] ACCOUNT BILL * VITAMIN B12 (04/03/2013 9:54 AM CDT) Vitamin B12 304 211 - 946 pg/mL [facility] ACCOUNT BILL Blood specimen (specimen) BLOOD SPECIMEN / Unknown 04/03/2013 9:54 AM CDT 04/03/2013 1:06 PM CDT Narrative Resulting Agency Comment [facility] [place] [address] ??[facility] [id number] Josiah Breen MD LAB - CHEMISTRY ORDGeo WILLS [facility] ACCOUNT BILL * IGA BLOOD (04/03/2013 9:54 AM CDT) IgA Quantitative 210 91 - 414 mg/dL [facility] ACCOUNT BILL Blood specimen (specimen) BLOOD SPECIMEN / Unknown 04/03/2013 9:54 AM CDT 04/03/2013 1:06 PM CDT Narrative Resulting Agency Comment [facility] [place] [address] ??[facility] [phone] Josiah Breen MD LAB - CHEMISTRY ORDGeo LOREEJESUS Performing Organization Address City/[facility]/ZIP Co de Phone Number [facility] ACCOUNT BILL * US GALLBLADDER (03/07/2013 8:07 AM CDT) Anatomical Region Laterality Modality Ultrasound 03/07/2013 8:36 AM CDT Impressions 03/07/2013 8:50 AM CDT Negative gallbladder ultrasound. Narrative 03/07/2013 8:50 AM CDT GALLBLADDER ULTRASOUND INDICATION: Patient complains of right upper abdominal pain with nausea, shortness of breath and chest tightness for four days. FINDINGS: Ultrasound examination of the gallbladder is negative. There is no evidence of cholelithiasis or bile duct dilatation. The common bile duct measures 0.45 cm. The liver is unremarkable. The right kidney survey images show no obstruction. The pancreas is partially obscured by overlying structures. Procedure Note Bhavesh Spicer MD - 03/07/2013 GALLBLADDER ULTRASOUND INDICATION: Patient complains of right upper abdominal pain with nausea, shortness of breath and chest tightness for four days. FINDINGS: Ultrasound examination of the gallbladder is negative. There is no evidence of cholelithiasis or bile duct dilatation. The common bile duct measures 0.45 cm. The liver is unremarkable. The right kidney survey images show no obstruction. The pancreas is partially obscured by overlying structures. IMPRESSION Negative gallbladder ultrasound. Molly Alvarado MD US ORDERABLES * (ABNORMAL) CARDIAC MARKER PANEL (03/02/2013 8:08 PM CDT) Troponin I <0.015 <0.100 ng/mL 03/02/2013 9:11 PM CDT [facility] CK 93 35 - 232 U/L 03/02/2013 9:11 PM CDT [facility] CK-MB 0.8 0.0 - 5.0 ng/mL 03/02/2013 9:11 PM CDT [facility] CK Index % 0.9(L) 4.0 - 25.0 % 03/02/2013 9:11 PM CDT [facility] Blood specimen (specimen) BLOOD SPECIMEN / Unknown 03/02/2013 8:08 PM CDT 03/02/2013 8:55 PM CDT [employer] LAB - CHEMISTRY gridCommJESUS Performing Organization Address City/[facility]/ZIP Co de Phone Number [facility] [address] [place] [address] * AMYLASE BLOOD (03/02/2013 8:08 PM CDT) Only the most recent of2 resultswithin the time period is included. Pathologist [facility] Amylase 44 15 - 115 U/L 03/02/2013 9:32 PM CDT [facility] Blood specimen (specimen) BLOOD SPECIMEN / Unknown 03/02/2013 8:08 PM CDT 03/02/2013 8:55 PM CDT [employer] LAB - CHEMISTRY RF ControlsGeo WILLS [facility] [address] [place] [address] * MAMMO SCREENING DIGITAL IMAGE BILAT (08/23/2011 7:59 AM IMPREGNATOR OPERATOR) Anatomical Region Laterality Modality Breast Bilateral Mammography 08/23/2011 12:0 7 PM IMPREGNATOR OPERATOR Narrative 08/23/2011 12:27 PM IMPREGNATOR OPERATOR DIGITAL BILATERAL SCREENING MAMMOGRAMS WITH CAD CORRELATION [...] suspicious findings are present clinically. An [employer]ified Facility Procedure Note [...] suspicious findings are present clinically. An [employer] Certified Facility Daja Orr MD MAMMO ORDERABLES * US ABDOMEN COMPLETE (08/02/2011 2:45 PM IMPREGNATOR OPERATOR) Anatomical Region Laterality Modality Abdomen Ultrasound 08/02/2011 2:53 PM IMPREGNATOR OPERATOR Impressions 08/02/2011 2:58 PM IMPREGNATOR OPERATOR Unremarkable abdominal ultrasound. Narrative 08/02/2011 2:58 PM IMPREGNATOR OPERATOR ULTRASOUND ABDOMEN COMPLETE INDICATION: Abdominal pain. FINDINGS: Grayscale ultrasound of the abdomen is performed. The liver is normal in size and echogenicity. The gallbladder is present, free of stones. The common bile duct measures 3 mm. Both kidneys are unremarkable. There is no hydronephrosis. The right kidney measures 11.6 x 2.6 x 4.2 cm. The left kidney measures 9.9 x 3.4 x 4.0 cm. There is no free fluid. Limited visualization of the aorta and inferior vena cava are unremarkable. Procedure Note Chantelle Robert MD - 08/02/2011 ULTRASOUND ABDOMEN COMPLETE INDICATION: Abdominal pain. FINDINGS: Grayscale ultrasound of the abdomen is performed. The liver is normal in size and echogenicity. The gallbladder is present, free of stones. The common bile duct measures 3 mm. Both kidneys are unremarkable. There is no hydronephrosis. The right kidney measures 11.6 x 2.6 x 4.2 cm. The left kidney measures 9.9 x 3.4 x 4.0 cm. There is no free fluid. Limited visualization of the aorta and inferior vena cava are unremarkable. IMPRESSION Unremarkable abdominal ultrasound. Cherelle Mason APRN-COTTAGE CHEESE MAKER US ORDERABLES * CULTURE URINE COMPREHENSIVE (PO REF LAB) (08/02/2011 1:56 PM IMPREGNATOR OPERATOR) Pathologist [facility] Urine Culture Comprehensive Final report [facility] ACCOUNT BILL Result 1 [facility] ACCOUNT BILL Comment:No growth in 36 - 48 hours. URINE / Unknown 08/02/2011 1 :56 PM IMPREGNATOR OPERATOR 08/02/2011 3:56 PM IMPREGNATOR OPERATOR Narrative Resulting Agency Comment [facility] [address] ??[facility] [phone] Cherelle Mason APRN-COTTAGE CHEESE MAKER LAB - MICROBIOL OGY ORDERABLES [facility] ACCOUNT BILL * HELICOBACTER PYLORI ANTIBODIES (IGG,IGA,IGM) (PO REF LAB) (08/02/2011 1:56 PM IMPREGNATOR OPERATOR) Helicobacter pylori Antibody IgG <0.9 0.0 - 0.8 U/mL [facility] ACCOUNT BILL Comment: ?Negative ?<0.9 ?Indeterminate ??0.9 - 1.0 ?Positive ?>1.0 Helicobacter pylori Antibody IgA Index <0.89 0.00 - 0.88 index [facility] ACCOUNT BILL Comment: ? Negative ? <0.89 ? Equivocal ??0.89 - 0.99 ? Positive ? >0.99 Helicobacter pylori Antibody IgM Index <0.80 0.00 - 0.79 index [facility] ACCOUNT BILL Comment: ?Negative ?<0.80 ?Equivocal 0.80 - 1.19 ?Positive ?>1.19 ?. ? Current studies suggest that H. pylori IgM testing should be ? performed concomitantly with H. pylori IgA and/or IgG tests ? to support a diagnosis of Helicobacter pylori infection. ?. ? For research use only, not for use in clinical diagnostic ? procedures. BLOOD SPECIMEN / Unknown 08/02/2011 1:56 PM IMPREGNATOR OPERATOR 08/02/2011 3:56 PM IMPREGNATOR OPERATOR Narrative Resulting Agency Comment [facility] [place] [address] ??[facility] [phone] Cherelle Mason DRAW TENDER-COTTAGE CHEESE MAKER LAB - SEROLOGY ORDERABLES [facility] ACCOUNT BILL * URINALYSIS MICROSCOPIC ONLY (08/02/2011 1:56 PM IMPREGNATOR OPERATOR) WBC UA 0-5 0 - 5 /hpf [facility] ACCOUNT BILL RBC UA None seen 0 - 3 /hpf [facility] ACCOUNT BILL Epithelial Cells (non renal) 0-10 0 - 10 /hpf [facility] ACCOUNT BILL Epithelial Cells (renal) NOT NEEDED [facility] ACCOUNT BILL Comment:Ancillary determined the test is not needed Casts ua NOT NEEDED [facility] ACCOUNT BILL Comment:Ancillary determined the test is not needed Casts UA NOT NEEDED [facility] ACCOUNT BILL Comment:Ancillary determined the test is not needed Crystals UA NOT NEEDED [facility] ACCOUNT BILL Comment:Ancillary determined the test is not needed Crystals UA NOT NEEDED [facility] ACCOUNT BILL Comment:Ancillary determined the test is not needed Mucus UA Present Not Estab. [facility] ACCOUNT BILL Bacteria UA Few None seen/Few [facility] ACCOUNT BILL Yeast UA NOT NEEDED [facility] ACCOUNT BILL Comment:Ancillary determined the test is not needed Trichomonas UA NOT NEEDED [facility] ACCOUNT BILL Comment:Ancillary determined the test is not needed Comment Urine NOT NEEDED [facility] ACCOUNT BILL Comment:Ancillary determined the test is not needed Urine specimen (specimen) URINE / Unknown 08/02/2011 1:56 PM IMPREGNATOR OPERATOR 08/02/2011 3:56 PM IMPREGNATOR OPERATOR Narrative Resulting Agency Comment [facility] [address] ??[facility] [phone] Cherelle Mason DRAW TENDER-COTTAGE CHEESE MAKER LAB - URINALYSI S ORDERABLES [facility] ACCOUNT BILL * IMAGING/RADIOLOGY/XRAY RESULTS ORDER (04/08/2011 2:10 PM CDT) Anatomical Region Laterality Modality Other Narrative Transcriptions Document, Scanned - 04/08/2011 2:10 PM CDT Scanned Document IMAGING * (ABNORMAL) HGB HCT PANEL (2011 5:47 AM CDT) Hemoglobin 9.9(DL) 12.0 - 16.0 gm/dl [facility] Hematocrit 29.9(DL) 36 - 47 % [facility] BLOOD SPECIMEN / Unknown 2011 5:47 AM CDT 2011 5:58 AM CDT Narrative [facility] - 2011 6:15 AM CDT Obtain 12-24 hours after delivery. Jose Alberto Massey MD LAB - HEMATOLOGY ORD [facility] [address] [id number] * XR ABDOMEN 1 VW (04/03/2011 2:30 AM CDT) Anatomical Region Laterality Modality Abdomen Radiographic Tracy ging 04/03/2011 8:13 AM CDT Narrative 04/03/2011 9:40 AM CDT [facility] INDICATION: Emergency . Check for instrumentation. COMPARISON: None FINDINGS: There is no evidence of radiopaque foreign body. Osseous structures are unremarkable. No significant bowel dilatation. Procedure Note Jatinder Roche MD - 04/03/2011 KUB CLINICAL INDICATION: Emergency . Check for instrumentation. COMPARISON: None FINDINGS: There is no evidence of radiopaque foreign body. Osseous structures are unremarkable. No significant bowel dilatation. Tavo Casey MD DIAGNOSTIC IMAGING O RDERABLES * GROSS + MICRO EXAM (04/03/2011 1:49 AM CDT) Only the most recent of2 resultswithin the time period is included. Result CASE NUMBER [id number] Comment: ORDERING PHYSICIAN ??JOSE ALBERTO MASSEY SPECIMEN TYPE ?Placenta DATE OF PROCEDURE ?04/03/2011 PHYSICIAN[S] ? SPECIMEN LABELED ? Placenta PRE-OP DIAGNOSIS ? Abruption GROSS DESCRIPTION ? GROSS DESCRIPTION ?? The specimen is received in formalin labeled placenta patient Ángela Ibrahim and consists of a 415 gram, 16 x 15.5 x 3.5 cm keenan discoid placenta with attached membranes and umbilical cord. The membranes rupture marginally and are pink/han, semitransparent. The umbilical cord inserts eccentrically 4.7 cm from the placental disc margin and measures 6 cm in length and up to 1.6 cm in diameter. The umbilical cord contains three vessels. The surface is purple/han. The vessels arborize in a normal pattern and are unremarkable. The maternal surface has well developed intact, lobular cotyledons. Serial section shows red/brown parenchyma. There are no lesions or masses grossly identified. Thermal Surfacing Machine Operator sections are submitted as follows ?? A1 - membranes and umbilical cord ??A2 - surface ??A3 - maternal surface. Dictated by ??DYT MICROSCOPIC DESCRIPTION The membrane sections show no significant inflammation of the chorioamnion. Chorion labia are present. The umbilical cord contains three vessels. No funisitis is seen. The villi appear mature. No villitis is detected. The surface is without significant inflammation. The maternal surface is without infarcts. No acute hypertensive vasculopathy is found. Calcifications are present. DIAGNOSIS Placenta, presumed vaginal delivery - ?Histologically mature placenta, 415 grams - ?Three vessel umbilical cord Dictated by ?Pedro Carbajal M.D. CPT ?? [id number] [address]pper ? NAZARIO LOCKETT Electronically Signed By ? PEDRO CARBAJAL MISCELLANEOUS SAMPLES / Unknown 04/03/2011 1:49 AM CDT 2011 8:55 AM CDT Historical Provider LAB - PATHOLOGY/C YTOLOGY ORDERABLES * SONOGRAM - COMPLETE (12/22/2010 2:43 PM CDT) Anatomical Region Laterality Modality Other 12/22/2010 2:43 PM CDT Narrative 12/23/2010 5:23 AM CDT ?[facility] ?[facility] ? TESTING CENTER ?FAX: ?? Pat. Name: ?ROMEL ÁNGELA Cooper. No: ?[id number] Study Date: ?? 12/22/2010 ??2:43pm , Age: ? 1985, 25 Pregnancies: ?? 1, Para 0000 LMP: ?08/06/2010 GA by LMP: ?19.7 weeks GA by US: ? 17.7 weeks GA Selected: ??17.6 weeks (From Known E) CHARLI: ?05/28/2011 Referring MD: JOSE ALBERTO MASSEY MD Fish Straightener: ??Mi Vernon RDMS Hist/Ind: ? Anatomy Screen MEASUREMENTS & AGE ? GROWTH EVALUATION Measurement ??GA ? Range ?Source ??%for GA Ratios ---- ------- ------- BPD ??3.9 cm 17.8 (16.6-19.0) Hadlock BPD 59% FL/BPD 0.65 HC ??14.4 cm 17.7 (16.5-18.9) Hadlock HC ??53% FL/AC ??0.21 AC ??12.2 cm 17.8 (16.1-19.5) Hadlock AC ??57% HC/AC ??1.19 (1.08 - 1.27) FL ?? 2.5 cm 17.6 (16.2-19.0) Hadlock FL ??51% CI ? 0.74 (0.70 - 0.86) HL ?? 2.6 cm 18.2 (15.5-20.9) Oliver ??HL ??61% GA for sonogram 17.7 wk (16.4-19.1) ?? Weight Estimate: based on (BPD,HC,AC,FL) Avg ?Weight: 207 gm (177-237) Hadlock ? : 0lbs, 7oz Heart Rate: 147 bpm CLINICAL SUMMARY Study Number: ??1/Tape #: /Gender:Female A keenan fetus is identified in cephalic presentation. ??The measurements today are not consistent with LMP but are consistent with appropriate growth compared to previous examination. ??The CHARLI selected is based on a prior ultrasound examination (confirmed by phone report). ??The amniotic fluid volume is within normal limits. ??The placenta is posterior, Grade 1. ??No major malformations are seen. ??The patient was advised that ultrasound does not allow detection of all structural or chromosomal abnormalities. ?? IMPRESSION: size appropriate for CHARLI by early ultrasound. No apparent structural abnormalities. RECOMMEND: ?? Repeat as clinically indicated. Mariella Oneil MD <Electronic Signature> ??12/23/2010 05:23am Jose Alberto Massey MD [facility] ORDERABLES * GLUCOSE (07/23/2010 11:21 AM IMPREGNATOR OPERATOR) Glucose 85 65 - 105 mg/dl [facility] BLOOD SPECIMEN / Unknown 07/23/2010 11:21 AM IMPREGNATOR OPERATOR 07/23/2010 11:21 AM IMPREGNATOR OPERATOR Willi Huff Jr., MD LAB - CHEMISTRY ORDERABLES Performing Organization Address [facility] de Phone Number [facility] [address] [place] [place] [phone] * IRON + TRANSFERRIN PANEL (07/23/2010 11:21 AM IMPREGNATOR OPERATOR) Iron 139.4 50 - 170 ug/dl [facility] Transferrin 256.7 250 - 380 mg/dl [facility] TIBC Calculated 321 250 - 450 ug/dl [facility] Iron Saturation % 43 20 - 55 % [facility] BLOOD SPECIMEN / Unknown 07/23/2010 11:21 AM IMPREGNATOR OPERATOR 07/23/2010 11:21 AM IMPREGNATOR OPERATOR Willi Huff Jr., MD LAB - CHEMISTRY ORDERABLES Performing Organization Address [facility] de Phone Number [facility] [address] [place] [id number] * HCG BLOOD QUALITATIVE (07/23/2010 11:21 AM IMPREGNATOR OPERATOR) Pathologist [facility] HCG Qual Serum Negative SEE BELOW [facility] Comment: Normal, Negative ? Pos, Sensitivity ? 25 MIU/ML BLOOD SPECIMEN / Unknown 07/23/2010 11:21 AM IMPREGNATOR OPERATOR 07/23/2010 11:21 AM IMPREGNATOR OPERATOR Willi Huff Jr., MD LAB - CHEMISTRY ORDERABLES Performing Organization Address [facility] de Phone Number [facility] [address] [place] [id number] * XR CONSULTATION (12/23/2009 8:00 AM CDT) Anatomical Region Laterality Modality Other 12/23/2009 8:00 AM CDT Narrative 12/23/2009 4:11 PM CDT WORK HEALTH EXAMINATION- Frontal chest radiograph No available comparison HISTORY- Positive PPD tuberculin skin examination FINDINGS- Visualized lungs are clear without pneumothorax, pleural effusion or consolidation. Cardiomediastinal silhouette is within normal limits for age and technique. Visualized osseous structures demonstrate no significant findings for technique. IMPRESSION- No radiographic evidence of acute or chronic granulomatous changes. ? Reading RadiologistMarek BRENNAN ? Releasing Awais BRENNAN ? Released Date Time- 12/23/091611 ? Tripper- DTC ? ADM- COVERT,ROBIN A ? ATT- COVERT,ROBIN A REF- ?CON- PCP- ?SCP- Procedure Note Juan Brennan MD - 12/23/2009 WORK HEALTH EXAMINATION- Frontal chest radiograph No available comparison HISTORY- Positive PPD tuberculin skin examination FINDINGS- Visualized lungs are clear without pneumothorax, pleural effusion or consolidation. Cardiomediastinal silhouette is within normal limits for age and technique. Visualized osseous structures demonstrate no significant findings for technique. IMPRESSION- No radiographic evidence of acute or chronic granulomatous changes. Reading Awais BRENNAN Releasing Awais BRENNAN Released Date Time- 12/23/091611 [facility]- [facility] ADM- COVERT,ROBIN Rahman ATT- COVERT,ROBIN Rahman REF- CON- PCP- SCP- Robin Su MD DIAGNOSTIC IMAGING O RDERABLES * CULTURE FUNGUS OTHER+FUNGUS SMEAR (04/07/2009 2:00 PM CDT) Smear SEE NOTE [facility] ([facility]) Comment: ??CULTURE, FUNGUS W/SMEAR NOT HAIR, SKIN, BLOOD ?MICRO NUMBER: ?[id number] ??TEST STATUS: ? FINAL ??SPECIMEN SOURCE: ?? VAGINAL/ANORECTAL ??SPECIMEN COMMENTS: ADEQUATE ??SMEAR: ? NO FUNGAL ELEMENTS SEEN. ??RESULT: ?NO FUNGAL GROWTH AT 4 WEEKS REPORT COMMENT: PREFERRED LAB:->[facility] Test Performed at: [facility] [place] [address] [place], [place] ??[address] VONNIE RIGGS MD 04/07/2009 2:00 PM CDT 04/07/2009 9:57 PM CDT [facility] - MICRO BIOLOGY ORDERABLES [facility] ([facility]) * PH FLUID - POCT (AMB) [facility] (08/14/1998 12:00 AM IMPREGNATOR OPERATOR) pH Vaginal 4.0 [facility] Vaginal swab (specimen) 08/14/1998 [facility] - POINT OF CARE ORDERABLES Performing Organization Address [facility]/State/ZIP Co de Phone Number [facility] * WET PREP - POINT OF CARE (AMB) [facility] (08/14/1998 12:00 AM IMPREGNATOR OPERATOR) pH Wet Prep 4.0 [facility] Yeast Wet Prep neg [facility] Trichomonas Wet Prep neg [facility] Bacteria Wet Prep neg [facility] Whiff Test neg [facility] Vaginal swab (specimen) 08/14/1998 Renuka Bear DRAW TENDER-COTTAGE CHEESE MAKER LAB - POINT OF CARE ORDERABLES [facility] Care Teams Paraffin Plant Operator Relationship Specialty Start Date End Date Jose Alberto Braxton MD [address] [facility] [place] [address] PCP - General Family Medicine 07/07/21
--- OUTSIDE RECORDS SUMMARY | 2024-07-30 14:06 | XMS_ITS | Encounter Summary ---
Author Organization [facility] Address [address] [place] [address] Care Team Providers Care Junior Buyer Name Role Phone Azar Braxton MD Primary Care Provider Reason for Visit * Reason Comments Hospital Follow-up SVT from 03/07/2023 Encounter Details Date Type Department Care Team (Latest Contact Info) Description 03/17/2023 1:00 PM CDT Office Visit [facility] [address] [place] [id number] Board, Magda Cortes APRN-MANAGER TRAINING [address] [address] [facility] [address] [place] [address] PSVT (paroxysmal supraventricular tachycardia) (CMS/HCC) (Primary Dx); Hyperlipidemia, unspecified hyperlipidemia type Social History Tobacco Use Types Packs/Day Years [...] file Gender Identity Female 08/19/2022 7:56 AM 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 Sexual Orientation Not on file documented as of this encounter Last Filed Vital Signs Vital Sign Reading Time Taken Comments Blood Pressure 110/78 03/17/2023 1:17 PM CDT Pulse 88 03/17/2023 1:17 PM CDT Temperature 36.9 ??C (98.5 ??F) 03/17/2023 1:17 PM CD T Respiratory Rate - - Oxygen Saturation 99% 03/17/2023 1:17 PM CDT Inhaled Oxygen Concentration - - Weight 61.8 kg (136 lb 3.2 oz) 03/17/2023 1:17 P M CDT Height 154.9 cm (5' 1 ) 03/17/2023 1:17 PM CDT Body Mass Index 25.73 03/17/2023 1:17 PM CDT documented in this encounter Progress Notes * Magda Hall, KIMBERLY-MANAGER TRAINING - 03/17/2023 1:27 PM CDT Cata Urena 1985 DATE: 03/17/2023 [facility] Progress Note Chief Complaint Patient presents with ??? Hospital Follow-up SVT from 03/07/2023 HPI: Cata Urena is a 37 year old female here for follow up on symptomatic PSVT. She was started on metoprolol XL 25 mg daily. She did not tolerate this due to low blood pressures 80s/50s with dizziness. Echocardiogram demonstrated normal LVEF 60% without wall motion deficit. Having ongoing symptoms. No concern for . Menses regular with normal flow. States she sleeps fairly well. Notobacco or alcohol use. Past Medical History: Diagnosis Date ??? Depressive disorder, not elsewhere classified ??? Generalized anxiety disorder ??? Vaginal vestibulitis Past Surgical History: Procedure Laterality Date ??? Section 04/03/2011 ??? COLONOSCOPY 04/19/2013 COLONOSCOPY DIAGNOSTIC ??? COLONOSCOPY WITH BIOPSY 04/19/2013 COLONOSCOPY BIOPSY ??? ENDOSCOPY, UPPER 04/19/2013 ESOPHAGOGASTRODUODENOSCOPY (EGD) ??? ENDOSCOPY, UPPER 04/19/2013 ENDOSCOPY GI UPPER WITH BIOPSY ??? [place] Tooth Extraction Family History: As below Social History: Social History Socioeconomic History ??? Marital status: Spouse name: Not on file ??? Number of children: 1 ??? Years of education: Not on file ??? Highest education level: Not on file Occupational History ??? 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 Smoking status: [...] on file Transportation Needs: Not on file Stress: Not on file Housing Stability: Not on file Review of Systems Constitutional: Negative for fever and malaise/fatigue. HENT: Negative for congestion and sore throat. Respiratory: Negative for cough, shortness of breath and wheezing. Cardiovascular: Negative for chest pain, palpitations, orthopnea, claudication, leg swelling and PND. Gastrointestinal: Negative for abdominal pain, constipation and nausea. Genitourinary: Negative for dysuria. Musculoskeletal: Negative for back pain. Skin: Negative for rash. Neurological: Negative for dizziness and headaches. Psychiatric/Behavioral: The patient is not nervous/anxious and does not have insomnia. All other systems reviewed and are negative. Physical Exam Vitals and nursing note reviewed. Constitutional: General: She is not in acute distress. Appearance: Normal appearance. She is not ill-appearing or diaphoretic. HENT: Head: Normocephalic. Mouth/Throat: Mouth: Mucous membranes are moist. Eyes: Extraocular Movements: Extraocular movements intact. Neck: Vascular: No carotid bruit. Cardiovascular: Rate and Rhythm: Normal rate and regular rhythm. Pulses: Radial pulses are 2+ on the right side and 2+ on the left side. Dorsalis pedis pulses are 2+ on the right side and 2+ on the left side. Heart sounds: S1 normal and S2 normal. No murmur heard. No friction rub. No gallop. Pulmonary: Effort: Pulmonary effort is normal. Breath sounds: Normal breath sounds. Abdominal: Palpations: Abdomen is soft. Tenderness: There is no abdominal tenderness. Musculoskeletal: General: Normal range of motion. Cervical back: Normal range of motion and neck supple. Right lower leg: No edema. Left lower leg: No edema. Skin: General: Skin is warm and dry. Findings: No rash. Neurological: General: No focal deficit present. Mental Status: She is alert and oriented to person, place, and time. Psychiatric: Behavior: Behavior is cooperative. Current Outpatient Medications Medication Sig Dispense Refill ??? ARIPiprazole (Abilify) 2 MG tablet ??? clonazePAM (KLONOPIN) 0.5 MG tablet Take 1 (one) tablet by mouth 2 times daily ??? DULoxetine (CYMBALTA) 60 MG capsule Take 1 (one) capsule by mouth once daily 5 ??? JOLESSA 0.15-0.03 MG tablet ??? lamoTRIgine (LaMICtal) 100 MG tablet ??? metoprolol succinate XL 24hr (Toprol XL) 25 MG tablet TAKE 1 TABLET BY MOUTH EVERY DAY (Patientnot taking: Reported on 03/17/2023) 90 tablet 3 ??? traZODone (DESYREL) 50 MG tablet ??? verapamil (Isoptin) 40 MG tablet Take 1 (one) tablet by mouth 3 times daily 270 tablet 0 No current facility-administered medications for this visit. Recent Labs Component Name 07/07/21 1119 03/29/17 1102 10/15/15 0920 CHOL 232* 209* 199 TRIG 134 110 133 HDL 58 57 66 VLDL 27 22 27 LDLCALC 147* 130* 106 Recent Labs Component Name 08/19/22 1504 07/07/21 1119 04/20/19 1254 SODIUM 137 138 136 POTASSIUM 4.1 3.8 3.6 CHLORIDE 103 101 100 CO2 24 22* 23 BUN 14 15 15 CREATININE 0.82 0.79 0.92 GLUCOSE 121* 79 112* CALCIUM 9.6 9.7 9.0 Recent Labs Component Name 08/19/22 1505 07/07/21 1119 04/20/19 1254 WBC 5.6 7.8 10.1 HGB 13.1 12.6 14.0 HCT 40.4 38.3 41.8 PLTCOUNT 341 321 400 Impression: 1. PSVT (paroxysmal supraventricular tachycardia) (CMS/HCC) 2. Hyperlipidemia, unspecified hyperlipidemia type Plan: - trial verapamil 40 mg t.i.d. - outpatient treadmill stress test - discussed plant kathi aHll, DISASTER RECOVERY COORDINATOR-MANAGER TRAINING The total time today spent was 30 minutes performing chart prep, review of data and visit with the patient. The above chart may have been completed partially or entirely using voice dictation software. The chart has been reviewed for discrepancies and software interpretation errors however the possibility exists that some unrecognized dictation-software related errors may remain. This note contains information and findings from prior encounters which remain the same for today???s encounter. I have reviewed and made updates where applicable. Thank you for allowing me to participate in the care of your patient. Do not hesitate to call with question or concerns. documented in this encounter Plan of Treatment Not on file documented as of this encounter Visit Diagnoses Diagnosis PSVT (paroxysmal supraventricular tachycardia) (HCC)- Primary Paroxysmal supraventricular tachycardia Hyperlipidemia, unspecified hyperlipidemia type documented in this encounter Care Teams Junior Buyer Relationship Specialty Start Date End Date Azar Braxton MD [address] [place] [address] PCP - General Family Medicine 07/07/21 documented as of this encounter
--- OUTSIDE RECORDS SUMMARY | 2024-07-30 14:06 | XMS_ITS | Encounter Summary ---
Author Organization [facility] Address [address] [place] [address] Care Team Providers Care Commercial Energy Auditor Name Role Phone Azar Braxton MD Primary Care Provider + [phone] Reason for Visit * Reason Comments Refill Request Encounter Details Date Type Department Care Team (Late st Contact Info) Description 10/12/2022 Refill [facility] [address] [facility] [facility] [address] [place] [address] Ruben Palumbo MD [address] [place] [address] Refill Request Social History Tobacco Use Types [...] file Gender Identity Female 08/19/2022 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 metoprolol succinate XL 24hr (Toprol XL) 25 MG tablet [Pharmacy Med Name: METOPROLOL ER SUCCINATE 25MG TABS] 90 tablet 3 Sig: TAKE 1 TABLET BY MOUTH EVERY DAY Medication filled yesterday during office visit. Pt is requesting 90 day supply AL SHELTER WORKER documented in this encounter Plan of Treatment Not on file documented as of this encounter Visit Diagnoses Not on filedocumented in this encounter Care Teams Commercial Energy Auditor Relationship Specialty Start Date End Date Azar Braxton MD [address] [facility] [place] [address] PCP - General Family Medicine 07/07/21 documented as of this encounter
--- OUTSIDE RECORDS SUMMARY | 2024-07-30 14:07 | XMS_ITS | Encounter Summary ---
Author Organization [facility] Address [address] [facility] [place] [address] Care Team Providers Care Conservation Coordinator Name Role Phone Daja Orr MD Primary Care Provider [phone] Reason for Visit * Reason Onset Date Comments Medication Request 08/29/2011 Encounter Details Date Type Department Care Team (Late st Contact Info) Description 08/29/2011 Telephone [facility] - Family Medicine [id number] [place] [address] [address] [place] [address] [place] [address] [facility] [address] [place] [address] Medication Request Social History Tobacco Use Types Packs/Day Years Used Date Smoking Tobacco: Never Alcohol Use Standard Drinks/Week Comments Yes 0 (1 standard drink = 0.6 oz pur e alcohol) social Sex and Gender Information Value Date Recorded Sex Assigned at Not on file Gender Identity Female 08/19/2022 7:56 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 Asked patient if she had the HIDA scan done yet, she said no it wasn't scheduled until later this month. Advised patient of Beckys response. Patient said she would find a new doctor and hung up. ING MACHINE UPKEEP MECHANIC * Telephone Encounter - Jyoti Lugo V - 08/29/2011 2:40 PM CST Left message for pt to call office ING MACHINE UPKEEP MECHANIC * Telephone Encounter - Cherelle Mason FNP - 08/29/2011 11:58 AM FORMING MACHINE UPKEEP MECHANIC If she would like, she could also see a GI specialist, either Dr. Saavedra or Dr. Schreiber. ING MACHINE UPKEEP MECHANIC * Telephone Encounter - Cherelle Msaon FNP - 08/29/2011 11:50 AM FORMING MACHINE UPKEEP MECHANIC She was to have had a HIDA scan done, but I cannot find that she did, it still says future in the orders and there are no scanned reports under the media tab. If she is still having problems she needs to make a follow up with Dr. Orr. I would not give her the remeron. She needs to see Dr. Orr. ING MACHINE UPKEEP MECHANIC * Telephone Encounter - Jyoti Lugo V - 08/29/2011 11:40 AM CST Pt saw Itzmelissalayla 08-02-2011. Pt was in for nausea, which has subsided to a large degree. Pt has lost weight and is concerned. Pt previously used Remeron due to weight loss. She is asking for a script for this. Can this be done? she took the lowest dose. Please advise ING MACHINE UPKEEP MECHANIC documented in this encounter Plan of Treatment Not on file documented as of this encounter Visit Diagnoses Not on filedocumented in this encounter Care Teams Conservation Coordinator Relationship Specialty [place] [id number] [address] PCP - General Internal Medicine 06/17/11 12/04/11 documented as of this encounter
--- OUTSIDE RECORDS SUMMARY | 2024-07-30 14:07 | XMS_ITS | Encounter Summary ---
Author Organization [facility] Address [address] [facility] [place] [address] Care Team Providers Care Rn Managed Care Name Role Phone Molly Alvarado MD Primary Care Provider Reason for Visit * Auth/Cert - Closed Specialty Diagnoses / Procedures Referred By Contac t Referred To Contact Diagnoses Other symptoms involving digestive system(787.99) Loss of weight Procedures COLONOSCOPY DIAGNOSTIC ESOPHAGOGASTRODUODENOSCOPY (EGD) Referral ID Status Reason Start Date Expiration Date Visits Re quested Visits Authorized [id number] Closed 1 1 Encounter Details Date Type Department Care Team (Late st Contact Info) Description 04/19/2013 10:36 AM CDT Anesthesia Event [facility] - Endoscopy Surgery [address] [place] [address] Osei Archer MD [facility] [place] [address] Anesthesia Record Procedure Summary Procedure Name Responsible Anesthesiologist Anesthesia Start Time Anesthesia Stop Time COLONOSCOPY DIAGNOSTIC Osei Archer MD 04/19/13 1036 04/19/13 1106 Events Date Time Event Comment 04/19/2013 1004 1036 An Start 1036 An Start Data 1043 an uri now Scope in 1100 an uri now Scope out 1106 An Stop Meds Name Total lidocaine 2% injection 5 mL propofol (DIPRIVAN) injection 350 mg lactated ringers infusion 500 mL * Agents Name Insp. N2O O2 * Blood No blood administrations on file. 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 female Temp: 36.8 ??C Pulse: 87 Resp: 18 BP: 111/67 mmHg SpO2: 100 % Pain Rating Score #: 0 A postop evaluation was performed on this patient with the following assessment: no apparent anesthesia complications Mental status: sufficiently recovered from acute administration of anesthesia to participate in theevaluation. Level of consciousness: awake No numbness, tingling or visual disturbances present. General appearance: well-appearing Respiratory function: natural airway. Cardiac: stable Pain: comfortable/acceptable PONV: None Postop hydration: adequate. Final anesthesia type: MAC Patient may be released from anesthesia care. documented in this encounter Consult Notes * Grupo Cruz CRNA - 04/19/2013 10:03 AM CDT Pre-anesthesia Evaluation Procedure(s) (LRB): COLONOSCOPY DIAGNOSTIC () ESOPHAGOGASTRODUODENOSCOPY (EGD) () Vital Signs: Temp: [36.8 ??C] Pulse: [119] Resp: [16] BP: (117)/(80) SpO2: [98 %] BMI: Estimated Body mass index is 17.47 kg/(m^2) as calculated from the following: Height as of an earlier encounter on 04/19/13: 5' 1.5 (1.562 m). Weight as of an earlier encounter on 04/19/13: 94 lb(42.638 kg). History: Past Medical History Diagnosis Date ??? Generalized anxiety disorder ??? Depressive disorder, not elsewhere classified ??? Vaginal vestibulitis Past Surgical History Procedure Date ??? section 04/03/2011 ??? [place] tooth extraction reports that she has never smoked. She has never used smokeless tobacco. She reports that she drinks alcohol. She reports that she does not use illicit drugs. Allergies: is allergic to tetanus toxoid; reglan; and latex. Medications: Prescriptions prior to admission Medication Status Sig Dispense Refill ??? famotidine (PEPCID) 40 MG tablet Active Take 40 mg by mouth once daily. ??? norethindrone-ethinyl estradiol (LOESTRIN 1.01/10, ,) 1.5-30 MG-MCG tablet Active Take 1 Tab by mouth once daily. No current facility-administered medications for this visit. No current outpatient prescriptions on file. Physical Exam: NPO status: since midnight Oriented to person, place and time Airway: I Neck ROM: full Dental exam findings: normal/ok Pulmonary exam: breath sounds CTA Heart sounds: S1 S2 Other comments: Anesthesia pre op re evaluation by Grupo Cruz CRNA 04/19/2013 10:38 AM Plan for Anesthesia: ASA Score: 1. Anesthesia plan: MAC Planned method of induction: intravenous Planned postop destination: OPS Anesthesia plan, risks and benefits discussed with patient and mother Anesthesia consent: obtained Plan accepted yes documented in this encounter Plan of Treatment Not on file documented as of this encounter Visit Diagnoses Not on filedocumented in this encounter Administered Medications Inactive Administered Medications - up to 3 most recent administrations Medication Order MAR Action Action Date Dose Rate Site lactated ringers infusion CONTINUOUS PRN, Starting on Mon04/19/13 at 1036, Until Mon04/19/13 at 1106, Anesthesia Intra-op $ New Bag/Syringe 04/19/2013 10:36 AM CDT mL lidocaine (XYLOCAINE) 2 % injection PRN, Starting on Mon04/19/13 at 1038, Until Mon04/19/13 at 1106, Anesthesia Intra-op $ Given 04/19/2013 10:38 AM CDT 5 mL propofol (DIPRIVAN) injection PRN, Starting on Mon04/19/13 at 1038, Until Mon04/19/13 at 1106, Anesthesia Intra-op $ Given 04/19/2013 10:48 AM CDT 50 mg $ Given 04/19/2013 10:40 AM CDT 100 mg $ Given 04/19/2013 10:38 AM CDT 200 mg documented in this encounter Care Teams Rn Managed Care Relationship Specialty Start Date End Date Molly Alvarado MD PCP - General Family Medicine 12/05/11 08/25/15 documented as of this encounter
--- OUTSIDE RECORDS SUMMARY | 2024-07-30 14:07 | XMS_ITS | Encounter Summary ---
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 Started in superpubic area, now in epigastric area as well Encounter Details Date Type Department Care Team (Late st Contact Info) Description 12/31/2014 11:48 PM CDT - 01/01/2015 2:40 AM CDT Emergency ER at [address] [id number] Jayne Chen MD [address] [place] [id number] UTI (urinary tract infection); Abdominal pain, epigastric Discharge Disposition: Home or Self Care Social History Tobacco Use Types Packs/Day Years Used Date Smoking Tobacco: Never Smokeless Tobacco: Never Alcohol Use Standard Drinks/Week Comments Yes 0 (1 standard drink = 0.6 oz pur e alcohol) social - rare Sex and Gender Information Value Date Recorded Sex Assigned at Not on file Gender Identity Female 08/19/2022 7:56 AM [employer] Sexual Orientation Not on file documented as of this encounter Last Filed Vital Signs Vital Sign Reading Time Taken Comments Blood Pressure 115/68 01/01/2015 2:37 AM CDT Pulse 71 01/01/2015 2:37 AM CDT Temperature 36.9 ??C (98.4 ??F) 01/01/2015 2:37 AM CD T Respiratory Rate 20 01/01/2015 2:37 AM CDT Oxygen Saturation 100% 01/01/2015 2:37 AM CDT Inhaled Oxygen Concentration - - Weight 42.2 kg (93 lb) 12/31/2014 11:56 PM CDT Height 154.9 cm (5' 1 ) 12/31/2014 11:56 PM CDT Body Mass Index 17.57 12/31/2014 11:56 PM CDT documented in this encounter Discharge Instructions * Discharge Instructions* Jayne Chen MD - 01/01/2015 2:36 AM CDT Images from the original note were not included. Abdominal Pain Abdominal pain can be caused by many things. Your caregiver decides the seriousness of your pain byan examination and possibly blood tests and X-rays. Many cases can be observed and treated at home.Most abdominal pain is not caused by a disease and will probably improve without treatment. However, in many cases, more time must pass before a clear cause of the pain can be found. Before that point, it may not be known if you need more testing, or if hospitalization or surgery is needed. HOME CARE INSTRUCTIONS ?? Do not take laxatives unless directed by your caregiver. ?? Take pain medicine only as directed by your caregiver. ?? Only take [id number] or prescription medicines for pain, discomfort, or fever as directed by your caregiver. ?? Try a clear liquid diet (broth, tea, or water) for as long as directed by your caregiver. Slowlymove to a bland diet as tolerated. SEEK IMMEDIATE MEDICAL CARE IF: ?? The pain does not go away. ?? You have a fever. ?? You keep throwing up (vomiting). ?? The pain is felt only in portions of the abdomen. Pain in the right side could possibly be appendicitis. In an adult, pain in the left lower portion of the abdomen could be colitis or diverticulitis. ?? You pass bloody or black tarry stools. MAKE SURE YOU: ?? Understand these instructions. ?? Will watch your condition. ?? Will get help right away if you are not doing well or get worse. Document Released: 05/10/2006 Document Revised: 10/22/2012 Document Reviewed: 03/18/2009 ExitCare?? Patient Information ??2013 [employer]. Urinary Tract Infection Urinary tract infections (UTIs) can develop anywhere along your urinary tract. Your urinary tract is your body's drainage system for removing wastes and extra water. Your urinary tract includes two kidneys, two ureters, a bladder, and a urethra. Your kidneys are a pair of chahal-shaped organs. Each kidney is about the size of your fist. They are located below your ribs, one on each side of your spine. CAUSES Infections are caused by microbes, which are microscopic organisms, including fungi, viruses, and bacteria. These organisms are so small that they can only be seen through a microscope. Bacteria are the microbes that most commonly cause UTIs. SYMPTOMS Symptoms of UTIs may vary by age and gender of the patient and by the location of the infection. Symptoms in young women typically include a frequent and intense urge to urinate and a painful, burning feeling in the bladder or urethra during urination. Older women and men are more likely to be tired, shaky, and weak and have muscle aches and abdominal pain. A fever may mean the infection is in your kidneys. Other symptoms of a kidney infection include pain in your back or sides below the ribs, nausea, and vomiting. DIAGNOSIS To diagnose a UTI, your caregiver will ask you about your symptoms. Your caregiver also will ask toprovide a urine sample. The urine sample will be tested for bacteria and white blood cells. White blood cells are made by your body to help fight infection. TREATMENT Typically, UTIs can be treated with medication. Because most UTIs are caused by a bacterial infection, they usually can be treated with the use of antibiotics. The choice of antibiotic and length of treatment depend on your symptoms and the type of bacteria causing your infection. HOME CARE INSTRUCTIONS ?? If you were prescribed antibiotics, take them exactly as your caregiver instructs you. Finish the medication even if you feel better after you have only taken some of the medication. ?? Drink enough water and fluids to keep your urine clear or pale yellow. ?? Avoid caffeine, tea, and carbonated beverages. They tend to irritate your bladder. ?? Empty your bladder often. Avoid holding urine for long periods of time. ?? Empty your bladder before and after sexual intercourse. ?? After a bowel movement, women should cleanse from front to back. Use each tissue only once. SEEK MEDICAL CARE IF: ?? You have back pain. ?? You develop a fever. ?? Your symptoms do not begin to resolve within 3 days. SEEK IMMEDIATE MEDICAL CARE IF: ?? You have severe back pain or lower abdominal pain. ?? You develop chills. ?? You have nausea or vomiting. ?? You have continued burning or discomfort with urination. MAKE SURE YOU: ?? Understand these instructions. ?? Will watch your condition. ?? Will get help right away if you are not doing well or get worse. Document Released: 05/10/2006 Document Revised: 01/29/2013 Document Reviewed: 09/07/2012 ExitCare?? Patient Information ??2013 [employer]. All labs and x-rays have potential for false positives and false negatives. Each have a certain sensitivity and specificity which must be clinically correlated to offset this inborn error of no perfect tests. Serial ED examinations by me and nursing are consistent with clinical impression and ED work up. Differential diagnosis and ED work up discussed with nursing, and patient/family who are present with patient's permission. We all agree with ED evaluation and course. Medicine is not a perfectscience so often there are varying opinions about workups, testing, differential diagnosis, prognosis and treatments. Often it will take serial examinations and workups to find the exact underlying cause. Please read the package insert provided by the pharmacy for further information about all prescribed medications. documented in this encounter Medications at Time of Discharge Medication Sig Dispensed Refills Start Date End Date ciprofloxacin (CIPRO) 500 MG tablet Take 1 Tab by mouth 2 times daily. 14 Tab 0 01/01/2015 08/26/2015 dicyclomine (BENTYL) 20 MG tablet Take 1 Tab by mouth every 6 hours as needed. 30 Tab 0 01/01/2015 08/26/2015 doxycycline hyclate (ACTICLATE) 100 MG tabletIndications:Acne Vulgaris Take 100 mg by mouth once daily. Indications: Acne 08/26/2015 escitalopram (LEXAPRO) 10 MG tablet Take 10 mg by mouth once daily. 01/19/2015 Estradiol Cypionate (DEPO-ESTRADIOL IM) Inject into muscle. 0 08/26/2015 famotidine (PEPCID) 40 MG tablet Take 40 mg by mouth once daily. 12/04/2015 ondansetron, disintegrating, (ZOFRAN ODT) 8 MG tablet Dissolve 1 Tab under the tongue every 4 hours as needed for Nausea/Vomiting. Allow tablet to dissolve on the tongue 30 Tab 0 01/01/2015 08/26/2015 pantoprazole EC (PROTONIX) 40 MG tablet Take 1 Tab by mouth daily before breakfast for 30 days. 30 Tab 0 01/01/2015 01/31/2015 documented as of this encounter ED Notes * Darshana Damon RN - 01/01/2015 2:40 AM CDT Discharge instructions discussed with patient and spouse and written copy given with four prescriptions. Diet restrictions discussed and fluids encouraged in small frequent amounts. Signs and symptoms to seek immediate medical attention discussed. Encouraged f/u with pcp. Discharged home stable andimproved. * Jayne Chen MD - 01/01/2015 12:07 AM CDT Provider contact with the patient: 01/01/2015 00:07 [place] [id number] [facility] EMERGENCY DEPARTMENT History Chief Complaint Patient presents with ??? Pain Abdominal Pt reports abdominal pain that started 4-5 hours ago, +nausea/vomiting; no fever. Started in superpubic area, now in epigastric area as well HPI Comments: 29 y/o F presents to the ED c/o abd pain and vomiting. Pain is described as cramping,is moving back and forth between the upper and lower abdomen. She is still currently nauseated but denies vomiting. She also reports that she has diarrhea most of the time but recently she has been constipated, and last night she had a hard BM and severe abd pain. She states that she thought the pain would improve after her BM but it did not. She reports that she last saw her GI doctor (Dr. Breen) 2 yrs ago. PMHX: generalized anxiety disorder, depressive disorder, vaginal vestibulitis PSHX: C section, wisdom tooth extraction, colonoscopy, endoscopy MEDS: Lexapro, albuterol, zithromax, depo-estradiol, pepcid ALL: tetanus toxoid, reglan, latex SOCHX: + drinks alcohol (socially) FAMHX: HTN, HLD, thyroid disease PCP: Molly Alvarado GI: Josiah Breen Past Medical History Diagnosis Date ??? Generalized anxiety disorder ??? Depressive disorder, not elsewhere classified ??? Vaginal vestibulitis Past Surgical History Procedure Laterality Date ??? section 04/03/2011 ??? [place] tooth extraction ??? Colonoscopy 04/19/2013 COLONOSCOPY DIAGNOSTIC ??? Endoscopy, upper 04/19/2013 ESOPHAGOGASTRODUODENOSCOPY (EGD) ??? Endoscopy, upper 04/19/2013 ENDOSCOPY GI UPPER WITH BIOPSY ??? Colonoscopy with biopsy 04/19/2013 COLONOSCOPY BIOPSY Family History Problem Relation Age of Onset ??? Hypercholesterolemia Father ??? Depression Father ??? Cancer Mother breast ??? Arthritis-rheumatoid Maternal Grandmother ??? Coronary Artery Disease Maternal Grandmother ??? Diabetes Maternal Grandmother ??? Heart Failure Maternal Grandmother ??? Hypertension Mother ??? Hypertension Father ??? Thyroid Disease Mother ??? Thyroid Disease Maternal Grandmother ??? Thyroid Disease Paternal Grandmother History Social History ??? Marital Status: Spouse Name: N/A Number of Children: 1 ??? 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 Smoking status: Never Smoker ??? Smokeless tobacco: Never Used ??? Alcohol Use: Yes Comment: social - rare ??? Drug Use: No ??? Sexual Activity: Partners: Male Other Topics Concern ??? Not on file Social History Narrative Merged History Encounter Review of Systems Review of Systems Constitutional: Negative for fever and chills. Eyes: Negative for photophobia. Respiratory: Negative for cough and shortness of breath. Cardiovascular: Negative for chest pain and palpitations. Gastrointestinal: Positive for nausea, vomiting, abdominal pain, diarrhea and constipation. Genitourinary: Negative for dysuria and hematuria. Musculoskeletal: Negative for back pain, joint pain and neck pain. Skin: Negative for rash. Neurological: Negative for dizziness, focal weakness, weakness and headaches. All other systems reviewed and are negative. Physical Exam BP 115/82 mmHg Pulse 92 Temp(Src) 97.6 ??F Resp 14 Ht 1.549 m (5' 1 ) Wt 42.185 kg (93 lb) BMI 17.58 kg/m2 SpO2 100% Physical Exam Constitutional: She is oriented to person, place, and time. She appears well- developed and well-nourished. HENT: Head: Normocephalic and atraumatic. Mouth/Throat: Oropharynx is clear and moist. Eyes: Conjunctivae and EOM are normal. Neck: Normal range of motion. Neck supple. Cardiovascular: Normal rate, regular rhythm and normal heart sounds. Pulmonary/Chest: Effort normal and breath sounds normal. Abdominal: Soft. Bowel sounds are normal. She exhibits no distension. There is no hepatosplenomegaly. There is tenderness (minimal ) in the right upper quadrant and epigastric area. There is no rebound, no guarding, no tenderness at McBurney's point and negative Mar's sign. Musculoskeletal: Normal range of motion. She exhibits no edema or tenderness. Neurological: She is alert and oriented to person, place, and time. GCS eye subscore is 4. GCS verbal subscore is 5. GCS motor subscore is 6. Skin: Skin is warm and dry. Psychiatric: She has a normal mood and affect. Nursing note and vitals reviewed. Medications Current Outpatient Prescriptions Medication Sig Dispense Refill ??? doxycycline hyclate (ACTICLATE) 100 MG tablet Take 100 mg by mouth once daily. Indications: Acne ??? ondansetron, disintegrating, (ZOFRAN ODT) 8 MG tablet Dissolve 1 Tab under the tongue every 4 hours as needed for Nausea/Vomiting. Allow tablet to dissolve on the tongue 30 Tab 0 ??? dicyclomine (BENTYL) 20 MG tablet Take 1 Tab by mouth every 6 hours as needed. 30 Tab 0 ??? ciprofloxacin (CIPRO) 500 MG tablet Take 1 Tab by mouth 2 times daily. 14 Tab 0 ??? pantoprazole EC (PROTONIX) 40 MG tablet Take 1 Tab by mouth daily before breakfast for 30 days.30 Tab 0 ??? escitalopram (LEXAPRO) 10 MG tablet Take 10 mg by mouth once daily. ??? Estradiol Cypionate (DEPO-ESTRADIOL IM) Inject into muscle. ??? famotidine (PEPCID) 40 MG tablet Take 40 mg by mouth once daily. Procedures Procedures ECG Interpretation ECG Interpretation Lab Interpretation Oxygen Saturation Interpretation The oxygen saturation level is: 100%. The patient was on Room Air for the saturation measurement. Measurement frequency: Continuous. Oxygen saturation interpretation is Normal. Intervention(s) used: None. Results for orders placed during the hospital encounter of 12/31/14 CBC W AUTO DIFFERENTIAL Result Value Ref Range WBC 10.4 4.4-10.7 x10^9/L WBC Corrected RBC 4.75 3.80-5.20 x10^12/L Hgb 14.3 12.0-15.6 gm/dL HCT 40.9 35.9-45.5 % MCV 86.1 80.7-98.3 fl MCH 30.1 26.7-34.0 pg MCHC 35.0 30.8-35.9 gm/dL Plt Ct 299 153-416 x10^9/L RDW-CV 13.3 12.1-14.9 % MPV 10.6 9.4-12.9 fl Neutro 73.1 (*) 44.0-73.0 % Lymph 22.1 20.0-43.0 % Kershaw 4.2 (*) 5.0-13.0 % Eos 0.2 0.0-6.0 % Baso 0.2 0.0-2.0 % Immature Grans 0.2 0-1 % Neutro Abs 7.58 (*) 2.01-7.14 x10^9/L Lymph Abs 2.29 1.07-3.94 x10^9/L Kershaw Abs 0.43 0.26-1.07 x10^9/L Eosin Abs 0.02 0-0.47 x10^9/L Baso Abs 0.02 0-0.08 x10^9/L COMPREHENSIVE METABOLIC PANEL Result Value Ref Range Glucose 104 74-106 mg/dL Sodium 145 136-145 mmol/L Potassium 3.4 (*) 3.5-5.1 mmol/L Chloride 112 (*) 98-107 mmol/L CO2 21 (*) 22-31 mmol/L Calcium 9.5 8.5-10.1 mg/dL Anion Gap 12 5-15 mmol/L BUN 11 7-21 mg/dL Creatinine 0.53 0.50-1.30 mg/dL eGFR MDRD >60 >60 mL/min/1.73m2 eGFR MDRD AFR AMR >60 >60 mL/min/1.73m2 Alk Phos 77 38-126 U/L ALT/SGPT 23 12-78 U/L AST/SGOT 18 5-40 U/L Protein Total 8.4 (*) 6.4-8.2 gm/dL Albumin 4.6 3.4-5.0 gm/dL Bili Total 0.4 0.2-1.0 mg/dL URINALYSIS ROUTINE AUTO Result Value Ref Range Color UA Yellow Straw, Yellow, Dark Yellow Clarity UA Clear Specific [place] UA 1.021 1.005-1.030 pH UA 5.5 5.0-8.0 pH Protein UA Negative Negative Blood UA Negative Negative Leukocyte UA 2+ (*) Negative Nitrite UA Negative Negative Glucose UA Negative Negative Ketone UA 1+ (*) Negative Bili UA Negative Negative Urobilinogen UA 0.2 0.1-1.0 EU/dL WBC UA Auto 20-50 (*) 0-2, 2-5 # /hpf RBC UA Auto 2-5 0-2, 2-5 # /hpf Epithelial Cell UA Auto 2-5 0-2, 2-5 # /hpf Bacteria UA Auto 1+ (*) None seen Hyaline Casts UA Auto 2-5 (*) 0-2 #/lpf Urine Microscopy Urine microscopy not indicated LIPASE BLOOD Result Value Ref Range Lipase 141 73-393 U/L HCG URINE QUALITATIVE - POINT OF CARE (IP) Result Value Ref Range HCG Qual Urine Negative Negative QC Verified Yes Yes No orders to display Progress Notes 2:28 AM Rechecked pt - The patient is now sleeping and reports that she is feeling much better. Discussed the lab results with the patient and the plan for discharge. Will discharge the patient with medication for pain and UTI. The patient has also been advised to follow up with GI as she reports an ongoing history of inconsistent bowel habits and GERD. She was given precautions for RTER. Pt is medically stable for d/c home at this time. I have given the patient instructions regarding her diagnosis, expectations, follow up, and return precautions. I explained to the patient that emergent conditions may arise and to return to the ER for new, worsening, or any persistent conditions. I've explained the importance of following up with her doctor--Molly Alvarado-- as instructed. The patient verbalized understanding of the discharge instructions. ED w/u suggests that this is a nonsurgical abdomen. Appendicitis, cholecystitis, bowel obstruction,diverticulitis, pancreatitis, colitis, Bowel perforation, mesenteric ischemia, considered. No lab findings or further exam findings to suggest acute abdominal emergency. Stable for outpt. F/u. Instructed to return to ER if worsening pain, vomiting, fever, or other complaints. ED Course Medical Decision Making I have reviewed the: Previous Chart, Nursing Notes and Vitals. I have interpreted the following results: Labs and Oxygen Saturation. I have discussed the case with Family/Caregiver. Orders Placed This Encounter ??? CBC W AUTO DIFFERENTIAL ??? COMPREHENSIVE METABOLIC PANEL ??? URINALYSIS ROUTINE AUTO ??? LIPASE BLOOD ??? HCG URINE QUALITATIVE - POINT OF CARE (IP) ??? 0.9% NaCl infusion ??? ondansetron (ZOFRAN) injection 4 mg ??? dicyclomine (BENTYL) injection 20 mg ??? pantoprazole (PROTONIX) injection 40 mg ??? ondansetron, disintegrating, (ZOFRAN ODT) 8 MG tablet ??? dicyclomine (BENTYL) 20 MG tablet ??? ciprofloxacin (CIPRO) 500 MG tablet ??? pantoprazole EC (PROTONIX) 40 MG tablet Diagnosis: Final diagnoses: UTI (urinary tract infection) Abdominal pain, epigastric New Medications: Discharge Medication List as of 01/01/2015 2:39 AM START taking these medications Details ondansetron, disintegrating, (ZOFRAN ODT) 8 MG tablet Disp-30 Tab, R-0, Dissolve 1 Tab under the tongue every 4 hours as needed for Nausea/Vomiting. Allow tablet to dissolve on the tongue, Print dicyclomine (BENTYL) 20 MG tablet Disp-30 Tab, R-0, Take 1 Tab by mouth every 6 hours as needed., Print ciprofloxacin (CIPRO) 500 MG tablet Disp-14 Tab, R-0, Take 1 Tab by mouth 2 times daily., Print pantoprazole EC (PROTONIX) 40 MG tablet Disp-30 Tab, R-0, Take 1 Tab by mouth daily before breakfast for 30 days., Print I have advised the patient to follow-up with: Molly Alvarado MD [address] [facility] [address] Josiah Breen MD [address] [place] [address] [address] [address] to arrange further evaluation and management Disposition: Discharged I have reviewed the information recorded by the scribe and agree with its accuracy and contents--Dr. Chen 01/02/2015 7:12 AM Transcribed by Ritika Edwards acting scribe on behalf of Dr. Chen 01/01/2015 12:07 AM documented in this encounter Plan of Treatment Not on file documented as of this encounter Procedures Procedure Name Priority Date/Time Associated Diagnosis Comments URINALYSIS REFLEX TO MICROSCOPIC NO CULTURE STAT 01/01/2015 2:10 AM CDT HCG URINE QUALITATIVE - POINT OF CARE STAT 01/01/2015 2:00 AM CDT CBC W AUTO DIFFERENTIAL STAT 01/01/2015 1:04 AM CDT COMPREHENSIVE METABOLIC PANEL STAT 01/01/2015 1:04 AM CDT LIPASE BLOOD STAT 01/01/2015 1:04 AM CDT documented in this encounter Results * (ABNORMAL) URINALYSIS ROUTINE AUTO (01/01/2015 2:10 AM CDT) Color UA Yellow Straw, Yellow, Dark Yellow 01/01/2015 2:24 AM CDT [facility] Clarity UA Clear 01/01/2015 2:24 AM CDT [facility] Specific [place] UA 1.021 1.005 - 1.030 01/01/2015 2:24 AM CDT [facility] pH UA 5.5 5.0 - 8.0 pH 01/01/2015 2:24 AM CDT [facility] Protein UA Negative Negative 01/01/2015 2:24 AM CDT [facility] Blood UA Negative Negative 01/01/2015 2:24 AM CDT [facility] Leukocyte UA 2+(A) Negative 01/01/2015 2:24 AM CDT [facility] Nitrite UA Negative Negative 01/01/2015 2:24 AM CDT [facility] Glucose UA Negative Negative 01/01/2015 2:24 AM CDT [facility] Ketone UA 1+(A) Negative 01/01/2015 2:24 AM CDT [facility] Bilirubin UA Negative Negative 01/01/2015 2:24 AM CDT [facility] Urobilinogen UA 0.2 0.1 - 1.0 EU/dL 01/01/2015 2:24 AM CDT [facility] WBC UA Auto 20-50(A) 0-2, 2-5 # /hpf 01/01/2015 2:24 AM CDT [facility] RBC UA Auto 2-5 0-2, 2-5 # /hpf 01/01/2015 2:24 AM CDT [facility] Epithelial Cell UA Auto 2-5 0-2, 2-5 # /hpf 01/01/2015 2:24 AM CDT [facility] Bacteria UA Auto 1+(A) None seen 01/01/2015 2:24 AM CDT [facility] Hyaline Casts UA Auto 2-5(A) 0 - 2 #/lpf 01/01/2015 2:24 AM CDT [facility] Urine Microscopy Urine microscopy not indicated 01/01/2015 2:24 AM CDT [facility] Urine URINE SPECIMEN OBTAINED BY CLEAN CATCH PROCEDURE / Unknown 01/01/2015 2:10 AM CDT 01/01/2015 2:15 AM CDT Jayne Chen MD LAB - URINALYSIS ORD ERABLES Performing Organization Address City/[facility]/ZIP Co de Phone Number [facility] [address] [address] * HCG URINE QUALITATIVE - POINT OF CARE (IP) (01/01/2015 2:00 AM CDT) HCG Qual Urine Negative Negative [facility] POCT TESTING QC Verified Yes Yes [facility] POC T TESTING Urine specimen (specimen) URINE / Unknown 01/01/2015 2:00 AM CDT Jayne Chen MD LAB - POINT OF CARE ORDERABLES [facility] POCT TESTING [address] [address], [facility] [place] * LIPASE BLOOD (01/01/2015 1:04 AM CDT) Lipase 141 73 - 393 U/L 01/01/2015 1:31 AM [facility] Blood BLOOD SPECIMEN / Unknown 01/01/2015 1:04 AM CDT 01/01/2015 1:13 AM CDT Jayne Chen MD LAB - CHEMISTRY [facility] Organization Address City/State/ZIP Co de Phone Number [facility] [address] [place] [address] * (ABNORMAL) COMPREHENSIVE METABOLIC PANEL (01/01/2015 1:04 AM CDT) Glucose 104 74 - 106 mg/dL 01/01/2015 1:30 AM [facility] Sodium 145 136 - 145 mmol/L 01/01/2015 1:30 AM [facility] Potassium 3.4(L) 3.5 - 5.1 mmol/L 01/01/2015 1:30 AM [facility] Chloride 112(H) 98 - 107 mmol/L 01/01/2015 1:30 AM [facility] CO2 21(L) 22 - 31 mmol/L 01/01/2015 1:30 AM [facility] Calcium 9.5 8.5 - 10.1 mg/dL 01/01/2015 1:30 AM [facility] Anion Gap 12 5 - 15 mmol/L 01/01/2015 1:30 AM [facility] BUN 11 7 - 21 mg/dL 01/01/2015 1:30 AM [facility] Creatinine 0.53 0.50 - 1.30 mg/dL 01/01/2015 1:30 AM [facility] eGFR by MDRD >60 >60 mL/min/1.7 3m2 01/01/2015 1:30 AM [facility] eGFR by MDRD >60 >60 mL/min/1.7 3m2 01/01/2015 1:30 AM [facility] Alkaline Phosphatase 77 38 - 126 U/L 01/01/2015 1:30 AM [facility] ALT 23 12 - 78 U/L 01/01/2015 1:30 AM [facility] AST 18 5 - 40 U/L 01/01/2015 1:30 AM CDT [facility] Protein Total 8.4(H) 6.4 - 8.2 gm/dL 01/01/2015 1:30 AM CDT [facility] Albumin 4.6 3.4 - 5.0 gm/dL 01/01/2015 1:30 AM CDT [facility] Bilirubin Total 0.4 0.2 - 1.0 mg/dL 01/01/2015 1:30 AM CDT [facility] Blood BLOOD SPECIMEN / Unknown 01/01/2015 1:04 AM CDT 01/01/2015 1:13 AM CDT Jayne Chen MD LAB - CHEMISTRY [facility] Organization Address City/State/ZIP Co de Phone Number [facility] [address] [place] [address] * (ABNORMAL) CBC W AUTO DIFFERENTIAL (01/01/2015 1:04 AM CDT) WBC 10.4 4.4 - 10.7 x10^9/L [facility]2015 [facility] WBC Corrected x10^9/L 01/01/2015 1:16 AM CDT [facility] RBC 4.75 3.80 - 5.20 x10^12/L 01/01/2015 1:16 AM CDT [facility] Hemoglobin 14.3 12.0 - 15.6 gm/dL 01/01/2015 1:16 AM [facility] Hematocrit 40.9 35.9 - 45.5 % 01/01/2015 1:16 AM CDT [facility] MCV 86.1 80.7 - 98.3 fl 01/01/2015 1:16 AM CDT [facility] MCH 30.1 26.7 - 34.0 pg 01/01/2015 1:16 AM CDT [facility] MCHC 35.0 30.8 - 35.9 gm/dL 01/01/2015 1:16 AM CDT [facility] Platelet Count 299 153 - 416 x10^9/L 01/01/2015 1:16 AM CDT [facility] RDW-CV 13.3 12.1 - 14.9 % 01/01/2015 1:16 AM [facility] MPV 10.6 9.4 - 12.9 fl 01/01/2015 1:16 AM [facility] Neutrophils % 73.1(H) 44.0 - 73.0 % 01/01/2015 1:16 AM [facility] Lymphocytes % 22.1 20.0 - 43.0 % 01/01/2015 1:16 AM [facility] Monocytes % 4.2(L) 5.0 - 13.0 % 01/01/2015 1:16 AM [facility] Eosinophils % 0.2 0.0 - 6.0 % 01/01/2015 1:16 AM [facility] Basophils % 0.2 0.0 - 2.0 % 01/01/2015 1:16 AM [facility] Immature Granulocytes 0.2 0 - 1 % 01/01/2015 1:16 AM [facility] Neutrophil Absolute 7.58(H) 2.01 - 7.14 x10^9/L 01/01/2015 1:16 AM [facility] Lymphocytes Absolute 2.29 1.07 - 3.94 x10^9/L 01/01/2015 1:16 AM [facility] Monocytes Absolute 0.43 0.26 - 1.07 x10^9/L 01/01/2015 1:16 AM [facility] Eosinophils Absolute 0.02 0 - 0.47 x10^9/L 01/01/2015 1:16 AM [facility] Basophils Absolute 0.02 0 - 0.08 x10^9/L 01/01/2015 1:16 AM [facility] Blood BLOOD SPECIMEN / Unknown Venipuncture / Unknown 01/01/2015 1:04 AM T 01/01/2015 1:13 AM T Jayne Chen MD LAB - HEMATOLOGY ORD ERABLES [facility] [address] [id number] documented in this encounter Visit Diagnoses Diagnosis UTI (urinary tract infection) Urinary tract infection, site not specified Abdominal pain, epigastric documented in this encounter Administered Medications Inactive Administered Medications - up to 3 most recent administrations Medication Order MAR Action Action Date Dose Rate Site 0.9% NaCl infusion at 1,000 mL/hr, Intravenous, ONCE, 1 dose, On Nicole 01/01/15 at 0030, Administer 500 mL Bolus $ Given 01/01/2015 1:05 AM CDT 1000 mL/hr dicyclomine (BENTYL) injection 20 mg 20 mg, Intramuscular, ONCE, 1 dose, On Nicole 01/01/15 at 0100, not for IV administration, may cause thrombosis $ Given 01/01/2015 1:09 AM CDT 20 mg Left Ventrogluteal ondansetron (ZOFRAN) injection 4 mg 4 mg, Intravenous, NOW, 1 dose, On Nicole 01/01/15 at 0045 $ Given 01/01/2015 1:05 AM CDT 4 mg pantoprazole (PROTONIX) injection 40 mg 40 mg, Intravenous, NOW, 1 dose, On Nicole 01/01/15 at 0045, Dilute with 10ml normal saline and give appropriate amount iv push over 2 minutes. (4mg = 1ml) $ Given 01/01/2015 1:07 AM CDT 40 mg documented in this encounter Active and Recently Administered Medications Times are shown in CDT. Scheduled Medication Order 12/30/2014 12/31/2014 01/01/2015 0.9% NaCl infusion (COMPLETED) at 1,000 mL/hr, Intravenous, ONCE, 1 dose, On Nicole 01/01/15 at 0030, Administer 500 mL Bolus 0105 ($ Given - Prov ider: Darshana Damon RN)0200 (Rx Stopped - Provider: Darshana Damon RN) dicyclomine (BENTYL) injection 20 mg (COMPLETED) 20 mg, Intramuscular, ONCE, 1 dose, On Nicole 01/01/15 at 0100, not for IV administration, may cause thrombosis 0109 ($ Given - Prov ider: Darshana Damon RN) ondansetron (ZOFRAN) injection 4 mg (COMPLETED) 4 mg, Intravenous, NOW, 1 dose, On Nicole 01/01/15 at 0045 0105 ($ Given - Prov ider: Darshana Damon RN) pantoprazole (PROTONIX) injection 40 mg (COMPLETED) 40 mg, Intravenous, NOW, 1 dose, On Nicole 01/01/15 at 0045, Dilute with 10ml normal saline and give appropriate amount iv push over 2 minutes. (4mg = 1ml) 0107 ($ Given - Prov ider: Darshana Damon RN) documented in this encounter Care Teams Roller Embosser Relationship Specialty Start Date End Date Molly Alvarado MD PCP - General Family Medicine 12/05/11 08/25/15 documented as of this encounter
--- OUTSIDE RECORDS SUMMARY | 2024-07-30 14:07 | XMS_ITS | Encounter Summary ---
Author Organization [facility] Address [address] [place] [address] Care Team Providers Care Wastewater Supervisor Name Role Phone Daja Orr MD Primary Care Provider [phone] Reason for Visit * Reason Onset Date Comments Order 08/04/2011 Encounter Details Date Type Department Care Team (Late st Contact Info) Description 08/04/2011 Telephone [facility] - Family Medicine [id number] [place] [address] [address] [place] [address] [place] [id number] [address] [address] [place] [address] Order Social History Tobacco Use Types Packs/Day Years Used Date Smoking Tobacco: Never Alcohol Use Standard Drinks/Week Comments Yes 0 (1 standard drink = 0.6 oz pur e alcohol) social Sex and Gender Information Value Date Recorded Sex Assigned at Not on file Gender Identity Female 08/19/2022 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 No precert necessary MP TRAWLER CAPTAIN * Telephone Encounter - Jyoti Lugo V - 08/04/2011 1:51 PM CST Pt is calling to see when Hepa scan ordered by [facility] will be scheduled? Pt would like a call. MP TRAWLER CAPTAIN documented in this encounter Plan of Treatment Not on file documented as of this encounter Visit Diagnoses Not on filedocumented in this encounter Care Teams Wastewater Supervisor Relationship Specialty [place] [id number] [id number] PCP - General Internal Medicine 06/17/11 12/04/11 documented as of this encounter
--- OUTSIDE RECORDS SUMMARY | 2024-07-30 14:07 | XMS_ITS | Encounter Summary ---
Author Organization [facility] Address [address] [facility] [place] [address] Care Team Providers Care Senior Software Engineer Name Role Phone Molly Alvarado MD Primary Care Provider Reason for Visit * Reason Onset Date Comments Appointment 06/08/2015 Medication Request 06/08/2015 Encounter Details Date Type Department Care Team (Late st Contact Info) Description 06/08/2015 Telephone [facility] - Family Medicine [address] [place] [address] [address] [place] [address] Molly Alvarado MD [address] [place] [address] [address] [place] [address] Appointment; Medication Request Social History Tobacco Use Types Packs/Day Years Used Date Smoking Tobacco: Never Smokeless Tobacco: Never Alcohol Use Standard Drinks/Week Comments Yes 0 (1 standard drink = 0.6 oz pur e alcohol) social - rare Sex and Gender Information Value Date Recorded Sex Assigned at Not on file Gender Identity Female 08/19/2022 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 I see that she has not called back to schedule appointment with Dr. Alvarado at one of the times listed below however she did scheduled new patient appointment with Dr. Hidalgo...Need to ask patient if she is switching providers? * Telephone Encounter - Jeanie Trujillo - 06/08/2015 1:50 PM CDT Called patient back, she needs to look at her scheduled to make sure she doesn't have any other appointments for the transplant process at those times and then will call us to scheduled. Patient informed she will need to bring prescription bottles with her and sign medical record release from psychiatrist. * Telephone Encounter - Molly Alvarado MD - 06/08/2015 1:47 PM CDT I could see her at 9:45 on 06/16, 9:15 on 06/17 or 11am on 06/22. Since I haven't seen her in 2 years I would like to review her medications before agreeing to prescribe them. I would like to have her bring her prescription bottles and sign a release for her psychiatrist's records. * Telephone Encounter - Jeanie Trujillo - 06/08/2015 1:11 PM CDT Patient is requesting appointment for a physical within the next couple weeks as she is going thru the process to be a kidney donor and they want her to have a physical all lab work and testing will be done thru the donation clinic. Also was seeing a psychiatrist who has her on Effexor and Klonopinand she felt the psychiatrist wasn't helping her much so she is now seeing a psychologist and wouldlike to know if Dr. Alvarado will take over prescription these medications. Patient informed thatDr. Alvarado does not have any openings for a physical until July and our PROFILE STITCHING MACHINE OPERATOR cannot prescribethose medications therefore message would be sent to Dr. Alvarado to see if she is willing to prescribe these medication and if she can work patient in for physical or if it is ok for patient to see PROFILE STITCHING MACHINE OPERATOR and just have Dr. Alvarado write prescriptions. Spoke with PROFILE STITCHING MACHINE OPERATOR who is happy to see the patientif Dr. Alvarado ok's scripts. Monday appointments are best for patient but she is flexible. Please advise. TRI 10-14-[address] Warden BARTLETT with Dr. Alvarado 03-06-2013 documented in this encounter Plan of Treatment Not on file documented as of this encounter Visit Diagnoses Not on filedocumented in this encounter Care Teams Senior Software Engineer Relationship Specialty Start Date End Date Molly Alvarado MD PCP - General Family Medicine 12/05/11 08/25/15 documented as of this encounter
--- OUTSIDE RECORDS SUMMARY | 2024-07-30 14:07 | XMS_ITS | Encounter Summary ---
Author Organization [facility] Address [address] [facility] [place] [address] Care Team Providers Care Project Controls Specialist Name Role Phone Molly Alvarado MD Primary Care Provider Reason for Visit * Auth/Cert - Closed Specialty Diagnoses / Procedures Referred By Contryan t Referred To Contact Diagnoses Other symptoms involving digestive system(787.99) Loss of weight Procedures COLONOSCOPY DIAGNOSTIC ESOPHAGOGASTRODUODENOSCOPY (EGD) Referral ID Status Reason Start Date Expiration Date Visits Re quested Visits Authorized [id number] Closed 1 1 Encounter Details Date Type Department Care Team (Latest Contact Info) Description 04/19/2013 9:04 AM CDT - 04/19/2013 11:50 AM CDT Hospital Encounter [facility] - Endoscopy Surgery [address] [address] Josiah Breen MD [address] [facility] [address] [place] [address] Surgery General Discharge Disposition: Home or Self Care Social History Tobacco Use Types Packs/Day Years Used Date Smoking Tobacco: Never Smokeless Tobacco: Never Alcohol Use Standard Drinks/Week Comments Yes 0 (1 standard drink = 0.6 oz pur e alcohol) social - rare Sex and Gender Information Value Date Recorded Sex Assigned at Not on file Gender Identity Female 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 Sexual Orientation Not on file documented as of this encounter Last Filed Vital Signs Vital Sign Reading Time Taken Comments Blood Pressure 112/78 04/19/2013 11:32 AM CDT Pulse 77 04/19/2013 11:32 AM CDT Temperature 36.8 ??C (98.2 ??F) 04/19/2013 9:11 AM CD T Respiratory Rate 16 04/19/2013 11:32 AM CDT Oxygen Saturation 100% 04/19/2013 11:31 AM CDT Inhaled Oxygen Concentration - - Weight 42.6 kg (94 lb) 04/19/2013 9:11 AM CDT Height 156.2 cm (5' 1.5 ) 04/19/2013 9:11 AM CDT Body Mass Index 17.47 04/19/2013 9:11 AM CDT documented in this encounter Discharge Instructions * Discharge Instructions* Document, Scanned - 04/20/2013 2:52 PM CDT documented in this encounter Medications at Time of Discharge Medication Sig Dispensed Refills Start Date End Date famotidine (PEPCID) 40 MG tablet Take 40 mg by mouth once daily. 12/04/2015 norethindrone-ethinyl estradiol (LOESTRIN 1.5/30, 21,) 1.5-30 MG-MCG tabletIndications:Routine general medical examination at a health care facility Take 1 Tab by mouth once daily. 03/13/2014 documented as of this encounter H&P Notes * Josiah Breen MD - 04/19/2013 10:38 AM CDT ENDOSCOPY PRE-PROCEDURE MEDICAL HISTORY & PHYSICAL NOTE 04/19/2013 [place] 28 y.o. female BP 117/80 Pulse 119 Temp 98.2 ??F Resp 16 Wt 42.638 kg (94 lb) BMI 17.47 kg/m2 History: Past Medical History Diagnosis Date ??? Generalized anxiety disorder ??? Depressive disorder, not elsewhere classified ??? Vaginal vestibulitis Past Surgical History Procedure Date ??? section 04/03/2011 ??? [place] tooth extraction Allergies Allergen Reactions ??? Tetanus Toxoid Anaphylaxis ??? Reglan (Metoclopramide) Made her insane , got shaky ??? Latex Itching Red and swollen Prescriptions prior to admission Medication Status Sig Dispense Refill ??? famotidine (PEPCID) 40 MG tablet Active Take 40 mg by mouth once daily. ??? norethindrone-ethinyl estradiol (LOESTRIN 1.5/30, 21,) 1.5-30 MG-MCG tablet Active Take 1 Tab by mouth once daily. Current Facility-Administered Medications Medication Status Dose Route Frequency Provider Last Rate Last Dose ??? lactated ringers infusion Active Intravenous pre-OP continuous Osei Archer MD 20 mL/hr at 04/19/13954 ??? 0.9% NaCl infusion Active Intravenous pre-OP continuous Osei Archer MD ??? lidocaine (XYLOCAINE MPF) 1 % injection Active Infiltration pre-OP multiple Osei Archer MD 0.2 mL at 04/19/13954 Physcial Exam: General appearance: alert, cooperative, no distress Heart: regular rhythm, normal S1 and S2, without murmurs, rubs or gallops Lungs: breath sounds normal and symmetric; no rales or wheezes Abdomen: soft without mass, non-tender, with normal bowel sounds Extremities: no clubbing, cyanosis or edema Sedation Plan: Anesthesia administered per Anesthesia Department Indication(s) for Procedure: Abdominal Pain, Change in bowel habits and Weight Loss Procedure Planned: Colonoscopy and EGD Josiah Breen MD documented in this encounter Procedure Notes * Document, Scanned - 04/22/2013 3:37 PM CDTAssociated Order(s): PATHOLOGY/CYTOLOGY REPORT ORDER * Document, Scanned - 04/20/2013 9:29 PM CDTAssociated Order(s): CARDIAC RHYTHM STRIP ORDER * Josiah Breen MD - 04/19/2013 11:09 AM CDTAssociated Order(s): ENDOSCOPY, COLON, SCREENING * Josiah Breen MD - 04/19/2013 11:08 AM CDTAssociated Order(s): ENDOSCOPY, COLON, DIAGNOSTIC Procedure(s): EGD EGD- Minimal distal esophageal erythema, biopsies taken. Otherwise, normal except scant clear fluid. Random duodenal biopsies taken. Colon- Normal exam to ileum. Random ileal and colon biopsies taken. Stool collected. A/P: F/U stool studies and biopsies. Will follow up in office. * Josiah Breen MD - 04/19/2013 11:06 AM CDTAssociated Order(s): EGD documented in this encounter Miscellaneous Notes * Miscellaneous Scans - Document, Scanned - 04/20/2013 9:29 PM CDT * Miscellaneous Scans - Document, Scanned - 04/20/2013 9:29 PM CDT * Miscellaneous Scans - Document, Scanned - 04/20/2013 9:28 PM CDT documented in this encounter Plan of Treatment Not on file documented as of this encounter Procedures Procedure Name Priority Date/Time Associated Diagnosis Comments PATHOLOGY/CYTOLOGY REPORT ORDER 04/22/2013 3:37 PM CDT CARDIAC RHYTHM STRIP ORDER 04/20 9:29 PM CDT COLONOSCOPY BIOPSY (ANY METHOD) 04/19/2013 6:19 PM CDT Other symptoms involving digestive system Loss of weight Special Needs PT.H LATEX ALLERGY PER BARBRA ESOPHAGOGASTRODUODENOSCOPY (EGD) BIOPSY 04/19/2013 6:19 PM CDT Other symptoms involving digestive system Loss of weight Special Needs PT.H LATEX ALLERGY PER BARBRA ESOPHAGOGASTRODUODENOSCOPY (EGD) DIAGNOSTIC 04/19/2013 6:19 PM CDT Other symptoms involving digestive system Loss of weight Special Needs PT.H LATEX ALLERGY PER BARBRA COLONOSCOPY DIAGNOSTIC 3 6:19 PM CDT Other symptoms involving digestive system Loss of weight Special Needs PT.H LATEX ALLERGY PER BARBRA ENDOSCOPY, COLON, DIAGNOSTIC Routine 01/2013 11:09 AM CDT Altered bowel habits Weight loss C DIFFICILE GDH AG + TOXIN A+B Routine 0 04/19/2013 10:59 AM CDT Diarrhea CULTURE STOOL+ E COLI SHIGA-LIKE TOXIN Routine 04/19/2013 10:59 AM CDT Diarrhea GIARDIA CRYPTOSPORIDIUM ANTI GEN PANEL Routine 04/19/2013 10:59 AM CDT Diarrhea EGD Routine 04/19/2013 10:40 AM CDT ENDOSCOPY, COLON, SCREENING Routine 01/2013 10:40 AM CDT PATHOLOGY TISSUE EXAM (STL) Routine 01/2013 10:40 AM CDT Diarrhea HCG URINE QUALITATIVE - POIN T OF CARE Routine 04/19/2013 10:10 AM CDT documented in this encounter Results * PATHOLOGY/CYTOLOGY REPORT ORDER (04/22/2013 3:37 PM CDT) Narrative 04/22/2013 3:37 PM CDT Ordered by an unspecified provider. Transcriptions Document, Scanned - 04/22/2013 3:37 PM CDT Scanned Document LAB - PATHOLOGY/CYTO LOGY ORDERABLES * CARDIAC RHYTHM STRIP ORDER (04/20/2013 9:29 PM CDT) Narrative 04/20/2013 9:29 PM CDT Ordered by an unspecified provider. Transcriptions Document, Scanned - 04/20/2013 9:29 PM CDT Scanned Document CARDI[facility] SERVICES ORD ERABLES * CLOSTRIDIUM DIFFICILE GDH AG + TOXIN A+B (04/19/2013 10:59 AM CDT) GDH Antigen Negative Negative, Uninterpretable 3 5:34 PM CDT [facility] C difficile Toxin A + B Negative Negative, Uninterpretable 3 5:34 PM CDT [facility] Interpretation C difficile Negative for toxigenic C. difficile Negative for toxigenic C. difficile 3 5:34 PM CDT [facility] Stool STOOL SPECIMEN / Unknown Collection / Unknown 04/19/2013 10:59 AM CDT 04/19/2013 12:42 PM CDT Josiah Breen MD LAB - MICROBIOLOGY O RDERABLES [facility] [address] [facility] [address] * GIARDIA CRYPTOSPORIDIUM ANTIGEN PANEL (04/19/2013 10:59 AM CDT) Giardia Antigen DFA Negative Negative 04/22/2013 2:06 PM CDT [facility] Cryptosporidium Antigen DFA Negative Negative 04/22/2013 2:06 PM CDT [facility] Stool STOOL SPECIMEN / Unknown Collection / Unknown 04/19/2013 10:59 AM CDT 04/19/2013 12:42 PM CDT Narrative [facility] - 04/22/2013 2:06 PM CDT A single O and P exam may be insufficient to diagnose an intestinal parasite infection. Additional specimens are recommended if patient remains symptomatic. CAUTION: Cyclospora will not be detected by routine Ova and Parasite testing. A separate lab order, Parasitology stain by Modified Acid Fast, must be placed specifically for Cyclospora which will [facility]. Specimen must be collected in 10% formalin. CAUTION: Cyclospora will not be detected by routine Ova and Parasite testing. A separate lab order, Parasitology Stain by Modified Acid Fast, must be placed specifically for Cyclospora which will be sent to [facility]. Specimen must be collected in 10% formalin. Josiah Breen MD LAB - MICROBIOLOGY [place] Performing Organization Address [facility] Co de Phone Number [facility] [address] [place] [address], [facility] * CULTURE STOOL+SHIGA-LIKE TOXIN (04/19/2013 10:59 AM CDT) Culture No growth Salmonella, Shigella, Campylobacter , E. coli 0157:h7 or Yersinia 04/21/2013 8:30 AM CDT [facility] Culture Shiga Toxin Negative 04/21/2013 8:30 AM CDT [facility] Stool STOOL SPECIMEN / Unknown Collection / Unknown 04/19/2013 10:59 AM CDT 04/19/2013 12:42 PM CDT Josiah Breen MD LAB - MICROBIOLOGY [place] Performing Organization Address [facility] Co de Phone Number [facility] [address] [place] [address], [facility] * EGD (04/19/2013 10:40 AM CDT) Report [...] Blood Loss: ? Estimated blood loss: none. [facility] 04/19/2013 10:4 0 AM CDT Narrative [facility] - 04/19/2013 11:06 AM CDT Procedure Note Josiah Breen MD - 04/19/2013 11:06 AM CDT Josiah Breen MD GI PROCEDURE ORDERAB LES [facility] * ENDOSCOPY, COLON, SCREENING (04/19/2013 10:40 [...] MD, Emmy Freeman RN, Antonietta Hughes ? RBUÉN Adan, [employer] CRNA (Anesthesia Staff) Referring MD: [...] Blood Loss: ? Estimated blood loss: none. [facility] 04/19/2013 10:4 0 AM CDT Narrative [facility] - 04/19/2013 11:09 AM CDT Procedure Note Josiah Breen MD - 04/19/2013 11:09 AM CDT Josiah Breen MD GI PROCEDURE ORDERAB LES [facility] * GROSS + MICRO EXAM (STL) (04/19/2013 10:40 AM CDT) Case Report Surgical Pathology Report ? Case: [id number] ? -------- Authorizing Provider: ??Josiah Breen MD ? Ordering Provider: ?? Josiah Breen MD ? Ordering Location: ? [facility] ? Collected: ? 04/19/2013 10:40 AM ? Pathologist: ? Yuni Younger MD ?Received: ?04/19/2013 12:46 PM ?Signed Out: ?04/20/2013 11:43 AM (Final) ? Specimens: ?? A) - Duodenal Biopsy ? B) - Esophageal Biopsy, distal ? C) - Colon Biopsy, terminal ileum ? D) - Colon Biopsy, random ? 04/20/2013 11:43 AM CDT [facility] Final Diagnosis Small intestine, duodenum, endoscopic biopsy: - ? No histopathologic abnormality Esophagus, distal, endoscopic biopsy: - ? Squamous mucosa with mild reflux changes - ? Columnar mucosa not present for evaluation - ? No evidence of dysplasia or malignancy Small intestine, terminal ileum, endoscopic biopsy: - ? No histopathologic abnormality Large intestine, random colon, endoscopic biopsy: - ? Reactive lymphoid aggregates KL/scs 04/20/2013 11:43 AM [facility] Gross Description Received in formalin are four containers each labeled [place] Urena. Container one is labeled biopsy random duodenum . The container holds multiple han tissue fragments measuring 0.1 cm up to 0.7 cm in greatest dimension. The specimen is entirely submitted in the cassette labeled A1. Container two is labeled biopsy distal esophagus . The container holds four white/han tissue fragments measuring 0.1 cm up to 0.5 cm in greatest dimension. The specimen is marked with hematoxylin and wrapped in tissue paper. The specimen is entirely submitted in the cassette labeled B1. Container three is labeled biopsy terminal ileum . The container holds three han tissue fragments measuring 0.2 cm up to 0.3 cm in greatest dimension. The specimen is entirely submitted in the cassette labeled C1. Container four is labeled biopsy random colon . The container holds multiple yellow/han tissue fragments measuring 0.3 cm up to 0.4 cm in greatest dimension. The specimen is entirely submitted in the cassette labeled D1. DYT/lma 04/20/2013 11:43 AM [facility] Microscopic Description Histologic sections of the duodenal biopsy show fragments of unremarkable small intestinal mucosa with normal villous to crypt ratio and no increase in intraepithelial lymphocytes. ??There is no evidence dysplasia or malignancy. Histologic sections of the distal esophageal biopsy show fragments of esophageal squamous mucosa with mild reflux-like changes. ??Columnar mucosa is not present for evaluation. ??An Alcian/PAS stain is negative for fungal organisms. ??There is no evidence of dysplasia or malignancy. Histologic sections of the terminal ileum biopsy show fragments of unremarkable small intestinal mucosa with Peyer's patches consistent with terminal ileum. ??There is no evidence of dysplasia or malignancy. ?? Histologic sections of the random colon biopsy show fragments of large intestinal mucosa with reactive lymphoid aggregates with well-formed germinal centers. ??There is no evidence of active inflammation, lymphocytic or collagenous colitis. ??There is no evidence of dysplasia or malignancy. KL/scs 04/20/2013 11:43 AM CDT [facility] Synoptic Report 04/20/2013 11:43 AM CDT [facility] Pathology/Cytology DUODENAL BIOPSY SPECIMEN / Unknown 04/19/2013 10:40 AM CDT 04/19/2013 12:46 PM CDT Miscellaneous samples (specimen) ESOPHAGEAL BIOPSY SPECIMEN / Unknown 04/19/2013 10:40 AM CDT 04/19/2013 12:46 PM CDT Miscellaneous samples (specimen) COLONIC BIOPSY SPECIMEN / Unknown 04/19/2013 10:40 AM CDT 04/19/2013 12:46 PM CDT Miscellaneous samples (specimen) COLONIC BIOPSY SPECIMEN / Unknown 04/19/2013 10:40 AM CDT 04/19/2013 12:46 PM CDT Josiah Breen MD LAB - PATHOLOGY/CYTO LOGY ORDERABLES Performing Organization Address City/[facility]/ZIP Co de Phone Number [facility] [address] [address] * HCG URINE QUALITATIVE - POINT OF CARE (IP) (04/19/2013 10:10 AM CDT) HCG Qual Urine Negative Negative [facility] POCT TEST[facility] QC Verified yes Yes [facility] POC T TESTING Urine specimen (specimen) URINE / Unknown 04/19/2013 10:10 AM CDT Josiah Breen MD LAB - POINT OF CARE ORDERABLES Performing Organization Address [facility] Co de Phone Number [facility] [address] [phone] documented in this encounter Visit Diagnoses Diagnosis Diarrhea- Primary documented in this encounter Administered Medications Inactive Administered Medications - up to 3 most recent administrations Medication Order MAR Action Action Date Dose Rate Site lactated ringers infusion at 20 mL/hr, Intravenous, PRE-OP CONTINUOUS, Starting on Mon04/19/13 at 1015, Until Mon04/19/13 at 1252, Pre-op $ New Bag/Syringe 04/19/2013 9:55 AM CDT 20 mL/hr Right Hand lidocaine (XYLOCAINE MPF) 1 % injection Infiltration, PRE-OP MULTIPLE, 3 doses, Starting on Mon04/19/13 at 1004, Until Mon04/19/13 at 1252, May be used (0.2 ml locally to anesthetize prior to insertion if patient has NKA to Lidocaine)., Pre-op $ Given 04/19/2013 9:55 AM CDT 0.2 mL Right Hand documented in this encounter Active and Recently Administered Medications Times are shown in CDT. Scheduled Medication Order 04/17/2013 04/18/2013 04/19/2013 lidocaine (XYLOCAINE MPF) 1 % injection (CANCELED) Infiltration, PRE-OP MULTIPLE, 3 doses, Starting on Mon04/19/13 at 1004, Until Mon04/19/13 at 1252, May be used (0.2 ml locally to anesthetize prior to insertion if patient has NKA to Lidocaine)., Pre-op 0955 ($ Given - Prov ider: Scarlett Villa RN) Continuous Medication Order 04/17/2013 04/18/2013 04/19/2013 lactated ringers infusion (CANCELED) at 20 mL/hr, Intravenous, PRE-OP CONTINUOUS, Starting on Mon04/19/13 at 1015, Until Mon04/19/13 at 1252, Pre-op 0955 ($ New Bag/Syri nge - Provider: Scarlett Villa, RUBÉN) documented in this encounter Care Teams Project Controls Specialist Relationship Specialty Start Date End Date Molly Alvarado MD PCP - General Family Medicine 12/05/11 08/25/15 documented as of this encounter
--- OUTSIDE RECORDS SUMMARY | 2024-07-30 14:07 | XMS_ITS | Encounter Summary ---
Author Organization [facility] Address [address] [facility] [address] [facility] [address] [place] [address] Care Team Providers Care Pearler Name Role Phone Molly Alvarado MD Primary Care Provider Reason for Visit * Reason Onset Date Comments MEDICATION REFILL 01/04/2012 Encounter Details Date Type Department Care Team (Late st Contact Info) Description 01/04/2012 Refill [facility] - Family Medicine [address] [place] [address] [address] [place] [address] Molly Alvarado MD [address] [place] [address] [address] [place] [address] MEDICATION REFILL Social History Tobacco Use Types Packs/Day Years Used Date Smoking Tobacco: Never Smokeless Tobacco: Never Alcohol Use Standard Drinks/Week Comments Yes 0 (1 standard drink = 0.6 oz pur e alcohol) social - rare Sex and Gender Information Value Date Recorded Sex Assigned at Not on file 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
--- OUTSIDE RECORDS SUMMARY | 2024-07-30 14:07 | XMS_ITS | Encounter Summary ---
Author Organization [facility] Address [address] [facility] [place] [address] Care Team Providers Care Direct Service Worker Name Role Phone Molly Alvarado MD Primary Care Provider Encounter Details Date Type Department Care Team (Late st Contact Info) Description 03/13/2014 9:58 AM CDT - 03/13/2014 11:59 PM CDT Hospital Encounter [facility] - Radiology [address] [place] [address] Lizzy Nesbitt, BULK PLANT AGENT-SOFTBALL UMPIRE [address] [place] [address] Discharge Disposition: Home or Self Care Social History Tobacco Use Types Packs/Day Years Used Date Smoking Tobacco: Never Smokeless Tobacco: Never Alcohol Use Standard Drinks/Week Comments Yes 0 (1 standard drink = 0.6 oz pur e alcohol) social - rare Sex and Gender Information Value Date Recorded Sex Assigned at Not on file Gender Identity 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 15 Tab 0 03/13/2014 10/14/2014 Estradiol Cypionate (DEPO-ESTRADIOL IM) Inject into muscle. 0 08/26/2015 famotidine (PEPCID) 40 MG tablet Take 40 mg by mouth once daily. 12/04/2015 documented as of this encounter Progress Notes * Serena Griffin - 03/13/2014 4:11 PM CDTQuick Note: LMOM advising Cata Urena to contact the office for results. * Lizzy Nesbitt APRN-CNP - 03/13/2014 11:48 AM CDTQuick Note: Normal cxr documented in this encounter Plan of Treatment Not on file documented as of this encounter Procedures Procedure Name Priority Date/Time Associated Diagnosis Comments XR CHEST 2VW Routine 03/13/2014 10:28 AM CDT Pneumonia Back pain documented in this encounter Results * XR CHEST PA AND LATERAL (03/13/2014 10:28 AM CDT) Anatomical Region Laterality Modality Chest Radiographic Sujata ging 03/13/2014 11:0 4 AM CDT Narrative 03/13/2014 11:07 AM CDT CHEST TWO VIEWS HISTORY: Left-sided mid back pain, history of pneumonia. FINDINGS: A prior is available from November 08, 2013. Previously seen left upper lobe infiltrate has resolved. No consolidation or pneumothorax or pleural effusion is seen. The ribs are unremarkable. Edited by Coco Santiago on 03/13/2014 11:07 AM Procedure Note Price Alejandre MD - 03/13/2014 CHEST TWO VIEWS HISTORY: Left-sided mid back pain, history of pneumonia. FINDINGS: A prior is available from November 08, 2013. Previously seen left upper lobe infiltrate has resolved. No consolidation or pneumothorax or pleural effusion is seen. The ribs are unremarkable. Edited by Coco Santiago on 03/13/2014 11:07 AM Lizzy [facility]YNN [facility] SUJATA GING ORDERABLES documented in this encounter Visit Diagnoses Diagnosis Pneumonia Pneumonia, organism unspecified Back pain Backache, unspecified documented in this encounter Care Teams Direct Service Worker Relationship Specialty Start Date End Date Molly Alvarado MD PCP - General Family Medicine 12/05/11 08/25/15 documented as of this encounter
--- OUTSIDE RECORDS SUMMARY | 2024-07-30 14:07 | XMS_ITS | Encounter Summary ---
Author Organization [facility] Address [address] [place] [address] Care Team Providers Care Cutting Machine Offbearer Name Role Phone Molly Alvarado MD Primary Care Provider Reason for Visit * Reason Comments Follow-up Encounter Details Date Type Department Care Team (Late st Contact Info) Description 02/14/2012 10:30 AM CDT Office Visit [facility] - Family Medicine [address] [place] [address] [address] [place] [address] Molly Alvarado MD [address] [place] [address] [address] [place] [address] Allergic rhinitis (Primary Dx); Anxiety state, unspecified; Acute URI Social History Tobacco Use Types Packs/Day Years Used Date Smoking Tobacco: Never Smokeless Tobacco: Never Alcohol Use Standard Drinks/Week Comments Yes 0 (1 standard drink = 0.6 oz pur e alcohol) social - rare Sex and Gender Information Value Date Recorded Sex Assigned at Not on file Gender Identity Female 08/19/2022 7:56 AM INTERLIBRARY LOAN SERVICES LIBRARIAN Sexual Orientation Not on file documented as of this encounter Last Filed Vital Signs Vital Sign Reading Time Taken Comments Blood Pressure 114/70 02/14/2012 10:40 AM CDT Pulse 89 02/14/2012 10:40 AM CDT Temperature 36.6 ??C (97.9 ??F) 02/14/2012 10:40 AM C DT Respiratory Rate 18 02/14/2012 10:40 AM CDT Oxygen Saturation - - Inhaled Oxygen Concentration - - Weight 42.5 kg (93 lb 12.8 oz) 02/14/2012 10:40 AM CDT Height 156.2 cm (5' 1.5 ) 02/14/2012 10:40 AM CD T Body Mass Index 17.44 02/14/2012 10:40 AM CDT documented in this encounter Progress Notes * Molly Alvarado MD - 02/14/2012 11:00 AM CDT SUBJECTIVE: Cata Urena is a 26 y.o. female here for recheck. Doing OK. Says the effexor made her feel crazyso she stopped taking it. The remeron helped but made her too groggy. She is switching to days nextmonth and is hoping to be able to take the remeron at that point. She is seeing a counselor which is helping a lot with the anxiety. Has had a dry cough and post-nasal drainage for 6 weeks. No fever or chills. No SOB or wheezing. Weight stable. No recent illness. No fever or chills. No frequent headaches. No vision changes. No night sweats. No chest pain. No shortness of breath. No side effects from medications. No hemoptysis. Regular BMs. No melena or hematochezia. No dysuria or hematuria. No polyuria, polydipsia, or fatigue. OBJECTIVE: BP 114/70 Pulse 89 Temp(Src) 97.9 ??F (Oral) Resp 18 Wt 93 lb 12.8 oz (42.547 kg) BMI 17.44 kg/m2 General: Awake, alert and NAD SHEENT: Skin is warm and dry. TM's with small effusions. No erythema. Pharynx is clear. Neck is supple. Nasal mucosa is edematous. PERRLA. EOMI. Heart: Regular rate and rhythm. No carotid bruits. No thrills. No murmurs. Lungs: Clear to auscultation bilaterally. Neuro: CN II - XII grossly intact. ASSESSMENT: Encounter Diagnoses Name Primary? Allergic rhinitis Yes ??? Anxiety state, unspecified ??? Acute URI PLAN: Orders Placed This Encounter ??? azithromycin (ZITHROMAX Z-DARREL) 250 MG tablet Sig: Take 1 Tab by mouth once daily. Take 2 pills day 1 and 1 pill daily for 4 days Dispense: 1 Tab Refill: 0 Advised to start svetlana. Follow up in 3 months. * Elba Olivera MA - 02/14/2012 10:41 AM CDT Cata Urena is here today for a 6 week follow up to medication. She states that she isn't takingeither anymore. She started the Effexor, but it 'made me feel weird' so she stopped. 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 documented in this encounter Plan of Treatment Not on file documented as of this encounter Visit Diagnoses Diagnosis Allergic rhinitis- Primary Allergic rhinitis, cause unspecified Anxiety state, unspecified Acute URI Acute upper respiratory infections of unspecified site documented in this encounter Care Teams Cutting Machine Offbearer Relationship Specialty Start Date End Date Molly Alvarado MD PCP - General Family Medicine 12/05/11 08/25/15 documented as of this encounter
--- OUTSIDE RECORDS SUMMARY | 2024-07-30 14:07 | XMS_ITS | Encounter Summary ---
Author Organization [facility] Address [address] [place] [address] Care Team Providers Care Paint Grinder Name Role Phone Avery Hidalgo DO Primary Care Provider Reason for Visit * Reason Comments Establish Care Encounter Details Date Type Department Care Team (Late st Contact Info) Description 08/26/2015 11:15 AM WIG SALES CONSULTANT Office Visit [facility] - Internal Medicine [address] [place] [address] Avery Hidalgo DO [address] [place], [place] [id number] Anxiety and depression (Primary Dx); Vitamin D deficiency disease; Hypercholesteremia; Vaginal vestibulitis Social History Tobacco Use Types Packs/Day Years Used Date Smoking Tobacco: Never Smokeless Tobacco: Never Alcohol Use Standard Drinks/Week Comments Yes 0 (1 standard drink = 0.6 oz pur e alcohol) social - rare Sex and Gender Information Value Date Recorded Sex Assigned at Not on file Gender Identity Female 08/19/2022 7:56 AM WIG SALES CONSULTANT Sexual Orientation Not on file documented as of this encounter Last Filed Vital Signs Vital Sign Reading Time Taken Comments Blood Pressure 94/60 08/26/2015 11:18 AM WIG SALES CONSULTANT Pulse - - Temperature 37 ??C (98.6 ??F) 08/26/2015 11:18 AM WIG SALES CONSULTANT Respiratory Rate - - Oxygen Saturation - - Inhaled Oxygen Concentration - - Weight 42.2 kg (93 lb) 08/26/2015 11:18 AM WIG SALES CONSULTANT Height 154.9 cm (5' 1 ) 08/26/2015 11:18 AM WIG SALES CONSULTANT Body Mass Index 17.57 08/26/2015 11:18 AM WIG SALES CONSULTANT documented in this encounter Patient Instructions * Patient Instructions* Avery Hidalgo DO - 08/26/2015 11:48 AM WIG SALES CONSULTANT Continue current supplements and medications for improving/stable chronic medical conditions. Patient was encouraged to call immediately for any concerns or problems. SALES CONSULTANT documented in this encounter Progress Notes * Birgit Perez - 08/28/2015 7:41 AM CST Bar Machine Operator Production correlated to established pt visit - patient has seen provider of same specialty/same TaxID in October 2014 - pt considered established. SALES CONSULTANT * Avery Hidalgo DO - 08/27/2015 5:44 PM CST Cata Urena 1985 30 y.o. DOS 08/27/2015 Chief Complaint Patient presents with ??? Establish Care 30-year-old female here to establish care. She elected to leave her past primary care doctor. Patient also sees psychiatry for anxiety but is requesting a take over prescription writing for her to save on-call payments. She reports she has anxiety with depression. Also history of high cholesterol over due for labs to be checked. Also known vitamin-D deficiency but has elected to not maintain supplement over the last few years desires lab recheck. 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 Ongoing chronic condition related to her anxiety. Current Medications: Current Outpatient Prescriptions Medication ??? clonazePAM (KLONOPIN) 0.5 MG tablet ??? DULoxetine (CYMBALTA) 60 MG capsule ??? escitalopram (LEXAPRO) 10 MG tablet ??? famotidine (PEPCID) 40 MG tablet No current facility-administered medications for this visit. Past medical, surgical, family and social history and medication allergies,current medicines,recentlabs and studies and problem list reviewed with patient. ROS: Constitutional: Negative Ears, nose, mouth, and throat: Negative Respiratory: Negative Cardiovascular: Negative Gastrointestinal: Negative Genitourinary:Negative Musculoskeletal:Negative Neurological: Negative Psych: mood stable , no si or hi Skin: no rash , warm and dry OBJECTIVE: BP 94/60 mmHg Temp(Src) 98.6 ??F (Temporal) Wt 42.185 kg (93 lb) BMI 17.58 kg/m2 Wt Readings from Last 3 Encounters: 08/26/15 42.185 kg (93 lb) 12/31/14 42.185 kg (93 lb) 10/14/14 40.098 kg (88 lb 6.4 oz) Temp Readings from Last 3 Encounters: 08/26/15 98.6 ??F Temporal 01/01/15 98.4 ??F 10/14/14 98.8 ??F Temporal BP Readings from Last 3 Encounters: 08/26/15 94/60 01/01/15 115/68 10/14/14 106/78 Pulse Readings from Last 3 Encounters: 01/01/15 71 10/14/14 100 03/13/14 77 Head, eye; normocephalic, atraumatic. PERRRLA. EOMI ENT Skin: no rash and warm and dry Neck exam - supple, no significant adenopathy. Thyroid exam reveals thyroid is normal in size without nodules or tenderness. Carotid upstroke normal. Chest: clear to auscultation, no wheezes, rales or rhonchi, symmetric air entry. CVS exam: normal rate, regular rhythm, normal S1, S2, no murmurs, rubs, clicks or gallops. Abdominal exam: soft, nontender, nondistended, no masses or organomegaly. Exam of extremities: peripheral pulses normal, no pedal edema, no clubbing or cyanosis Neuro: moves ext present well ,follows commands Today's in Office Labs: No results found for this visit on 08/26/15. ASSESSMENT/PLAN 1. Anxiety and depression ; Refill meds okay check labs 2. Vitamin D deficiency disease ; Check labs 3. Hypercholesteremia ; Check labs 4. Vaginal vestibulitis ; Review chart continue with current meds check labs Other: Continue current supplements and medications for improving/stable chronic medical conditions. Patient was encouraged to call immediately for any concerns or problems. Final Medications: Outpatient Encounter Prescriptions as of 08/26/2015 Medication Sig Dispense Refill ??? clonazePAM (KLONOPIN) 0.5 MG tablet Take 0.5 mg by mouth 2 times daily ??? DULoxetine (CYMBALTA) 60 MG capsule Take 60 mg by mouth once daily ??? escitalopram (LEXAPRO) 10 MG tablet Take 1 Tab by mouth once daily. (Patient taking differently: Take 10 mg by mouth once daily Reasons: patient takes 10mg in the AM and 5mg in the PM) 30 Tab 0 ??? famotidine (PEPCID) 40 MG tablet Take 40 mg by mouth once daily. ??? [DISCONTINUED] doxycycline hyclate (ACTICLATE) 100 MG tablet Take 100 mg by mouth once daily. Indications: Acne ??? [DISCONTINUED] ondansetron, disintegrating, (ZOFRAN ODT) 8 MG tablet Dissolve 1 Tab under the tongue every 4 hours as needed for Nausea/Vomiting. Allow tablet to dissolve on the tongue 30 Tab 0 ??? [DISCONTINUED] dicyclomine (BENTYL) 20 MG tablet Take 1 Tab by mouth every 6 hours as needed. 30 Tab 0 ??? [DISCONTINUED] ciprofloxacin (CIPRO) 500 MG tablet Take 1 Tab by mouth 2 times daily. 14 Tab 0 ??? [DISCONTINUED] Estradiol Cypionate (DEPO-ESTRADIOL IM) Inject into muscle. No facility-administered encounter medications on file as of 08/26/2015. SALES CONSULTANT * Lindsay Meneses MA - 08/26/2015 11:21 AM CST Screenings Future Falls: Depression: PHQ-2:TOTAL POINT SCORE: 0 PHQ-9: SALES CONSULTANT documented in this encounter Miscellaneous Notes * Addendum Note - Birgit Perez - 08/28/2015 7:42 AM CSTAddended by: BIRGIT PEREZ on: 08/28/2015 07:42 AM Modules accepted: Level of Service SALES CONSULTANT documented in this encounter Plan of Treatment Not on file documented as of this encounter Procedures Procedure Name Priority Date/Time Associated Diagnosis Comments LIPID PROFILE W TCHOL/HDL Routine 10/15/2015 9:20 AM WIG SALES CONSULTANT Anxiety and depression Hypercholesteremia VITAMIN D 25-HYDROXY Routine 10/15/2015 9:20 AM WIG SALES CONSULTANT Vitamin D deficiency disease CBC W AUTO DIFFERENTIAL Routine 10/15/2015 9:20 AM WIG SALES CONSULTANT Anxiety and depression Hypercholesteremia COMPREHENSIVE METABOLIC PANEL Routine 10/15/2015 9:20 AM WIG SALES CONSULTANT Anxiety and depression Hypercholesteremia TSH Routine 10/15/2015 9:20 AM WIG SALES CONSULTANT Anxiety and depression Hypercholesteremia T4 FREE Routine 10/15/2015 9:20 AM WIG SALES CONSULTANT Anxiety and depression Hypercholesteremia documented in this encounter Results * (ABNORMAL) VITAMIN D 25-HYDROXY (10/15/2015 9:20 AM WIG SALES CONSULTANT) Vitamin D, 25 Hydroxy 10.77(L) 30 - 100 ng/mL [facility] INSURANCE BILL Comment: Vitamin D Status: ?Deficiency ? <20 ? ng/mL ?Insufficiency ?? 20-30 ??ng/mL ?Sufficiency ? 30-100 ng/mL ?Toxicity ? >100 ?ng/mL Blood specimen (specimen) BLOOD SPECIMEN / Unknown 10/15/2015 9:20 AM WIG SALES CONSULTANT 10/15/2015 3:44 PM WIG SALES CONSULTANT Narrative Resulting Agency Comment [facility] [address] [place] [address] ??[facility] [phone] Avery Hidalgo DO LAB - CHEMISTRY TIFFANIE WILLS [facility] INSURANCE BILL * CBC W AUTO DIFFERENTIAL (10/15/2015 9:20 AM WIG SALES CONSULTANT) WBC 8.1 4.4 - 10.7 x10E9/L [facility] INSURANCE BILL RBC 4.68 3.80 - 5.20 x10E12/L [facility] INSURANCE BILL Hemoglobin 13.8 12.0 - 15.6 gm/dL [facility] INSURANCE BILL Hematocrit 42.3 35.9 - 45.5 % [facility] INSURANCE BILL MCV 90.4 80.7 - 98.3 fL [facility] INSURANCE BILL MCH 29.5 26.7 - 34.0 pg [facility] INSURANCE BILL MCHC 32.6 30.8 - 35.9 gm/dL [facility] INSURANCE BILL RDW 13.6 12.1 - 14.9 % [facility] INSURANCE BILL Platelet Count 311 153 - 416 x10E9/L [facility] INSURANCE BILL Comment:MPV FL BLOOD ([facility]) 1 1.1 fl 9.4-12.9 Granulocytes % 51.3 44.0 - 73.0 % [facility] INSURANCE BILL Lymphocytes % 37.2 20.0 - 43.0 % [facility] INSURANCE BILL Monocytes % 7.3 5.0 - 13.0 % [facility] INSURANCE BILL Eosinophils % 3.5 0.0 - 6.0 % [facility] INSURANCE BILL Basophils % 0.5 0.0 - 2.0 % [facility] INSURANCE BILL Granulocytes Absolute 4.15 2.01 - 7.14 x10E9/L [facility] INSURANCE BILL Lymphocytes Absolute 3.01 1.07 - 3.94 x10E9/L [facility] INSURANCE BILL Monocytes Absolute 0.59 0.26 - 1.07 x10E9/L [facility] INSURANCE BILL Eosinophils Absolute 0.28 0 - 0.47 x10E9/L [facility] INSURANCE BILL Basophils Absolute 0.04 0 - 0.08 x10E9/L [facility] INSURANCE BILL Immature Granulocytes 0.2 0 - 1 % [facility] INSURANCE BILL Immature Granulocytes Absolute 0.02 0.00 - 0.06 x10E9/L [facility] INSURANCE BILL nRBC 0 /100 WBC [facility] INSURANCE BILL Blood specimen (specimen) BLOOD SPECIMEN / Unknown 10/15/2015 9:20 AM WIG SALES CONSULTANT 10/15/2015 3:44 PM WIG SALES CONSULTANT Narrative Resulting Agency Comment [address] ??[place] [phone] Avery Hidalgo DO LAB - HEMATOLOGY ORD ERABLES [facility] INSURANCE BILL * LIPID PROFILE W TCHOL/HDL (PO REF LAB) (10/15/2015 9:20 AM WIG SALES CONSULTANT) Cholesterol 199 <200 mg/dL [facility] INSURANCE BILL Triglycerides 133 <150 mg/dL [facility] INSURANCE BILL HDL Cholesterol 66 >40 mg/dL [facility] INSURANCE BILL VLDL Calculated 27 <=30 mg/dL [facility] INSURANCE BILL LDL Calculated 106 <130 mg/dL [facility] INSURANCE BILL Comment:LDL/HDL RATIO BLOOD ([facility]) 1.6 <5.0 Cholesterol/HDL Ratio 3.0 <4.5 [facility] INSURANCE BILL Blood specimen (specimen) BLOOD SPECIMEN / Unknown 10/15/2015 9:20 AM WIG SALES CONSULTANT 10/15/2015 3:44 PM WIG SALES CONSULTANT Narrative Resulting Agency Comment [address] ??[place] [phone] Avery Hidalgo DO LAB - CHEMISTRY ORDE RABJESUS Performing Organization Address [facility] Co de Phone Number [facility] INSURANCE BILL * T4 FREE (10/15/2015 9:20 AM WIG SALES CONSULTANT) T4 Free 0.86 0.65 - 1.34 ng/dL [facility] INSURANCE BILL Blood specimen (specimen) BLOOD SPECIMEN / Unknown 10/15/2015 9:20 AM WIG SALES CONSULTANT 10/15/2015 3:44 PM WIG SALES CONSULTANT Narrative Resulting Agency Comment [address] ??[place] [phone] Avery Hidalgo DO LAB - CHEMISTRY ORDE RABJESUS Performing Organization Address City/[facility]/ZIP Co de Phone Number [facility] INSURANCE BILL * TSH (10/15/2015 9:20 AM WIG SALES CONSULTANT) TSH 1.95 0.358 - 3.740 uIU/mL [facility] INSURANCE BILL Blood specimen (specimen) BLOOD SPECIMEN / Unknown 10/15/2015 9:20 AM WIG SALES CONSULTANT 10/15/2015 3:44 PM WIG SALES CONSULTANT Narrative Resulting Agency Comment [address] ??[place] [phone] Avery Hidalgo DO LAB - CHEMISTRY TIFFANIE WILLS [facility] INSURANCE BILL * COMPREHENSIVE METABOLIC PANEL (10/15/2015 9:20 AM WIG SALES CONSULTANT) Glucose 83 74 - 106 mg/dL [facility] INSURANCE BILL BUN 13 7 - 21 mg/dL [facility] INSURANCE BILL Creatinine 0.64 0.50 - 1.30 mg/dL [facility] INSURANCE BILL eGFR by MDRD >60 >60 mL/min/1.7 3m2 [facility] INSURANCE BILL eGFR by MDRD >60 >60 mL/min/1.7 3m2 [facility] INSURANCE BILL Sodium 141 136 - 145 mmol/L [facility] INSURANCE BILL Potassium 3.7 3.5 - 5.1 mmol/L [facility] INSURANCE BILL Chloride 105 98 - 107 mmol/L [facility] INSURANCE BILL CO2 25 22 - 31 mmol/L [facility] INSURANCE BILL Calcium 9.1 8.5 - 10.1 mg/dL [facility] INSURANCE BILL Protein Total 7.5 6.4 - 8.2 gm/dL [facility] INSURANCE BILL Albumin 4.1 3.4 - 5.0 gm/dL [facility] INSURANCE BILL Bilirubin Total 0.3 0.2 - 1.0 mg/dL [facility] INSURANCE BILL Alkaline Phosphatase 89 38 - 126 U/L [facility] INSURANCE BILL AST 22 5 - 40 U/L [facility] INSURANCE BILL ALT 30 12 - 78 U/L [facility] INSURANCE BILL Blood specimen (specimen) BLOOD SPECIMEN / Unknown 10/15/2015 9:20 AM WIG SALES CONSULTANT 10/15/2015 3:44 PM WIG SALES CONSULTANT Narrative Resulting Agency Comment [address] ??[place] [phone] Avery Hidalgo DO LAB - CHEMISTRY TIFFANIE WILLS [facility] INSURANCE BILL documented in this encounter Visit Diagnoses Diagnosis Anxiety and depression- Primary Dysthymic disorder Vitamin D deficiency disease Unspecified vitamin D deficiency Hypercholesteremia Pure hypercholesterolemia Vaginal vestibulitis Vaginitis and vulvovaginitis, unspecified documented in this encounter Care Teams Paint Grinder Relationship Specialty Start Date End Date Avery Hidalgo DO PCP - General Family Medicine 08/26/15 03/25/20 documented as of this encounter
--- OUTSIDE RECORDS SUMMARY | 2024-07-30 14:07 | XMS_ITS | Encounter Summary ---
Author Organization [facility] Address [address] [place] [address] Care Team Providers Care Brake Reliner Name Role Phone Molly Alvarado MD Primary Care Provider Reason for Visit * Reason Comments Chest Pain Patient complaining of chest tightness since 1430 today, awoke patient from sleep. States pain comes and goes, has history of costochondroitis and thought pain was related to that, continues to have squeezing, intermittent pain 12/21. Dizziness Encounter Details Date Type Department Care Team (Late st Contact Info) Description 03/02/2013 7:38 PM CDT - 03/02/2013 11:07 PM CDT Emergency ER at [address] [id number] Yaniv Tamayo DO [address] [place] [address] [place] [address] Chest Pain; Dizziness; Abdominal pain, epigastric; Biliary colic Discharge Disposition: Home or Self Care Social History Tobacco Use Types Packs/Day Years Used Date Smoking Tobacco: Never Smokeless Tobacco: Never Alcohol Use Standard Drinks/Week Comments Yes 0 (1 standard drink = 0.6 oz pur e alcohol) social - rare Sex and Gender Information Value Date Recorded Sex Assigned at Not on file Gender Identity Female 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 Sexual Orientation Not on file documented as of this encounter Last Filed Vital Signs Vital Sign Reading Time Taken Comments Blood Pressure 120/98 03/02/2013 10:58 PM CDT Pulse 60 03/02/2013 10:58 PM CDT Temperature 36.6 ??C (97.9 ??F) 03/02/2013 10:58 PM C DT Respiratory Rate 16 03/02/2013 10:58 PM CDT Oxygen Saturation 100% 03/02/2013 10:58 PM CDT Inhaled Oxygen Concentration - - Weight 42.6 kg (94 lb) 03/02/2013 7:44 PM CDT Height 154.9 cm (5' 1 ) 03/02/2013 7:44 PM CDT Body Mass Index 17.76 03/02/2013 7:44 PM CDT documented in this encounter Discharge Instructions * Discharge Instructions* Leslee Martinez RN - 03/02/2013 10:59 PM CDT Chest Pain (Nonspecific) It is often hard to give a specific diagnosis for the cause of chest pain. There is always a chancethat your pain could be related to something serious, such as a heart attack or a blood clot in thelungs. You need to follow up with your caregiver for further evaluation. CAUSES ?? Heartburn. ?? Pneumonia or bronchitis. ?? Anxiety or stress. ?? Inflammation around your heart (pericarditis) or lung (pleuritis or pleurisy). ?? A blood clot in the lung. ?? A collapsed lung (pneumothorax). It can develop suddenly on its own (spontaneous pneumothorax) or from injury (trauma) to the chest. ?? Shingles infection (herpes zoster virus). The chest wall is composed of bones, muscles, and cartilage. Any of these can be the source of the pain. ?? The bones can be bruised by injury. ?? The muscles or cartilage can be strained by coughing or overwork. ?? The cartilage can be affected by inflammation and become sore (costochondritis). DIAGNOSIS Lab tests or other studies, such as X-rays, electrocardiography, stress testing, or cardiac imaging, may be needed to find the cause of your pain. TREATMENT ?? Treatment depends on what may be causing your chest pain. Treatment may include: ?? Acid blockers for heartburn. ?? Anti-inflammatory medicine. ?? Pain medicine for inflammatory conditions. ?? Antibiotics if an infection is present. ?? You may be advised to change lifestyle habits. This includes stopping smoking and avoiding alcohol, caffeine, and chocolate. ?? You may be advised to keep your head raised (elevated) when sleeping. This reduces the chance ofacid going backward from your stomach into your esophagus. ?? Most of the time, nonspecific chest pain will improve within 2 to 3 days with rest and mild painmedicine. HOME CARE INSTRUCTIONS ?? If antibiotics were prescribed, take your antibiotics as directed. Finish them even if you startto feel better. ?? For the next few days, avoid physical activities that bring on chest pain. Continue physical activities as directed. ?? Do not smoke. ?? Avoid drinking alcohol. ?? Only take [id number] or prescription medicine for pain, discomfort, or fever as directed by your caregiver. ?? Follow your caregiver's suggestions for further testing if your chest pain does not go away. ?? Keep any follow-up appointments you made. If you do not go to an appointment, you could develop lasting (chronic) problems with pain. If there is any problem keeping an appointment, you must call to reschedule. SEEK MEDICAL CARE IF: ?? You think you are having problems from the medicine you are taking. Read your medicine instructions carefully. ?? Your chest pain does not go away, even after treatment. ?? You develop a rash with blisters on your chest. SEEK IMMEDIATE MEDICAL CARE IF: ?? You have increased chest pain or pain that spreads to your arm, neck, jaw, back, or abdomen. ?? You develop shortness of breath, an increasing cough, or you are coughing up blood. ?? You have severe back or abdominal pain, feel nauseous, or vomit. ?? You develop severe weakness, fainting, or chills. ?? You have a fever. THIS IS AN EMERGENCY. Do not wait to see if the pain will go away. Get medical help at once. Call your local emergency services (911 in [place] Do not drive yourself to the hospital. MAKE SURE YOU: ?? Understand these instructions. ?? Will watch your condition. ?? Will get help right away if you are not doing well or get worse. Document Released: 05/10/2006 Document Revised: 10/22/2012 Document Reviewed: 03/05/2009 ExitCare?? Patient Information ??2013 [employer]. Vertigo (Dizziness) Your exam shows you have had an episode of dizziness or vertigo. Dizziness can be caused by many different problems. These include low blood pressure, narrowed blood vessels in the brain, neurologic and heart problems, low blood sugar, and emotional states. True vertigo causes a false sense of movement such as a spinning feeling or jin that seem to move. Vertigo is usually made worse by changing position and relieved by resting. This type of vertigo is often thought to be caused by a virus infection involving the inner ear, or rarely, an unusual migraine headache. The treatment of vertigo includes: ?? Bed rest and clear liquids. ?? Medications to reduce dizziness, nausea, and vomiting. ?? Avoid alcohol, tranquilizers, nicotine, caffeine, and recreational drugs. Most of the time benign vertigo is much better after 3 days. However, mild unsteadiness may last for up to 3 months in some patients. An MRI scan or other special tests to evaluate your hearing and balance may be needed if the vertigo does not improve or returns in the future. Please see your doctor at once or go to the emergency room if you have any of these warning signs: ?? Increasing vertigo, earache, ear drainage, or loss of hearing. ?? Severe headache, blurred or double vision, or trouble walking. ?? Fainting, extreme weakness, chest pain, or palpitations. ?? Fever, persistent vomiting, or dehydration. ?? Numbness or weakness of the limbs. Document Released: 07/31/2006 [employer]?? Patient Information ??2009 [employer]. Biliary Colic Biliary colic is a steady or irregular pain in the upper abdomen. It is usually under the right side of the rib cage. It happens when gallstones interfere with the normal flow of bile from the gallbladder. Bile is a liquid that helps to digest fats. Bile is made in the liver and stored in the gallbladder. When you eat a meal, bile passes from the gallbladder through the cystic duct and the commonbile duct into the small intestine. There, it mixes with partially digested food. If a gallstone blocks either of these ducts, the normal flow of bile is blocked. The muscle cells in the bile duct contract forcefully to try to move the stone. This causes the pain of biliary colic. SYMPTOMS ?? A person with biliary colic usually complains of pain in the upper abdomen. This pain can be: ?? In the center of the upper abdomen just below the breastbone. ?? In the upper-right part of the abdomen, near the gallbladder and liver. ?? Spread back toward the right shoulder blade. ?? Nausea and vomiting. ?? The pain usually occurs after eating. ?? Biliary colic is usually triggered by the digestive system's demand for bile. The demand for bile is high after fatty meals. Symptoms can also occur when a person who has been fasting suddenly eats a very large meal. Most episodes of biliary colic pass after 1 to 5 hours. After the most intense pain passes, your abdomen may continue to ache mildly for about 24 hours. DIAGNOSIS After you describe your symptoms, your caregiver will perform a physical exam. He or she will pay attention to the upper right portion of your belly (abdomen). This is the area of your liver and gallbladder. An ultrasound will help your caregiver look for gallstones. Specialized scans of the gallbladder may also be done. Blood tests may be done, especially if you have fever or if your pain persists. PREVENTION Biliary colic can be prevented by controlling the risk factors for gallstones. Some of these risk factors, such as heredity, increasing age, and are a normal part of life. Obesity and a high-fat diet are risk factors you can change through a healthy lifestyle. Women going through menopause who take hormone replacement therapy (estrogen) are also more likely to develop biliary colic. TREATMENT ?? Pain medication may be prescribed. ?? You may be encouraged to eat a fat-free diet. ?? If the first episode of biliary colic is severe, or episodes of colic keep retuning, surgery to remove the gallbladder (cholecystectomy) is usually recommended. This procedure can be done through small incisions using an instrument called a laparoscope. The procedure often requires a brief stay in the hospital. Some people can leave the hospital the same day. It is the most widely used treatment in people troubled by painful gallstones. It is effective and safe, with no complications in morethan 90% of cases. ?? If surgery cannot be done, medication that dissolves gallstones may be used. This medication is expensive and can take months or years to work. Only small stones will dissolve. ?? Rarely, medication to dissolve gallstones is combined with a procedure called shock-wave lithotripsy. This procedure uses carefully aimed shock waves to break up gallstones. In many people treatedwith this procedure, gallstones form again within a few years. PROGNOSIS If gallstones block your cystic duct or common bile duct, you are at risk for repeated episodes of biliary colic. There is also a 25% chance that you will develop a gallbladder infection(acute cholecystitis), or some other complication of gallstones within 10 to 20 years. If you have surgery, schedule it at a time that is convenient for you and at a time when you are not sick. HOME CARE INSTRUCTIONS ?? Drink plenty of clear fluids. ?? Avoid fatty, greasy or fried foods, or any foods that make your pain worse. ?? Take medications as directed. SEEK MEDICAL CARE IF: ?? You develop a fever over 100.5?? F (38.1?? C). ?? Your pain gets worse over time. ?? You develop nausea that prevents you from eating and drinking. ?? You develop vomiting. SEEK IMMEDIATE MEDICAL CARE IF: ?? You have continuous or severe belly (abdominal) pain which is not relieved with medications. ?? You develop nausea and vomiting which is not relieved with medications. ?? You have symptoms of biliary colic and you suddenly develop a fever and shaking chills. This maysignal cholecystitis. Call your caregiver immediately. ?? You develop a yellow color to your skin or the white part of your eyes (jaundice). Document Released: 01/01/2007 Document Revised: 10/22/2012 Document Reviewed: 03/12/2009 ExitCare?? Patient Information ??2012 [employer]. * Discharge Instructions* Document, Scanned - 03/04/2013 3:24 PM CDT documented in this encounter Medications at Time of Discharge Medication Sig Dispensed Refills Start Date End Date calcium carbonate (TUMS) 500 MG chew tablet Take 1 Tab by mouth daily with food. 04/03/2013 famotidine (PEPCID) 40 MG tablet Take 40 mg by mouth once daily. 12/04/2015 mometasone (NASONEX) 50 MCG/ACT nasal spray Irving 1 Irving into each nostril once daily. 1 Inhaler 0 11/12/2012 03/06/2013 norethindrone-ethinyl estradiol (LOESTRIN 1.5/30, 21,) 1.5-30 MG-MCG tabletIndications:Routin e general medical examination at a health care facility Take 1 Tab by mouth once daily. 03/13/2014 documented as of this encounter Procedure Notes * Document, Scanned - 03/05/2013 7:42 AM CDTAssociated Order(s): EKG 12-LEAD * Document, Scanned - 03/04/2013 8:42 AM CDTAssociated Order(s): EKG 12-LEAD documented in this encounter ED Notes * Leslee Martinez RN - 03/02/2013 10:59 PM CDT Pt discharged home with f/u instructions. Left with friends * Birgit Neal - 03/02/2013 9:42 PM CDT Monitor alerting. RUBÉN Camilo notified. * Yanvi Tamayo DO - 03/02/2013 7:42 PM CDT Images from the original note were not included. Provider contact with the patient: 03/02/2013 19:42 Cata Urena [id number] [facility] EMERGENCY DEPARTMENT History Chief Complaint Patient presents with ??? Chest Pain Patient complaining of chest tightness since 1430 today, awoke patient from sleep. States pain comes and goes, has history of costochondroitis and thought pain was related to that, continues to have squeezing, intermittent pain 5/10. ??? Dizziness Chief complaint narrative was entered by triage nurse, not by physician. HPI Comments: 7:43 PM Cata Urena is a 27 y.o. female with a past medical history of costochondritis, anxiety, depression, vag vestibulitis presents to the ER c/o CP onset 2:30 AM this morning while sleeping. Pt describes the pain as pressure and burning. Associated sx include SOB, nausea, and dizzy(when sitting up). Pt states she has experienced this CP before about 2 weeks prior but the painresolved. Family Hx: HTN Physician: Molly Alvarado Chest Pain The history is provided by the patient and friend. This is a recurrent problem. The current episodestarted 12 to 24 hours ago. The problem occurs separate episodes. The problem has been resolved. The pain is associated with nothing. The pain is at a severity of 4/10. The pain is mild. The quality of the pain is described as pressure and burning. Change in pain location over time: none.nausea, dizziness and shortness of breathno fever, no abdominal pain, no vomiting, no headaches, no back pain and no coughShe has tried nothing for the symptoms. The treatment provided no relief. Risk factors for coronary artery disease include none. Risk factors for a thoracic aortic dissection include none.Risk factors for a pulmonary embolism include none. The past medical history includes anxiety.The past medical history does not include aneurysm, CA, DM, DVT, HTN, PE, CHF, CVA, hypercholesterolemia,pancreatitis, hiatal hernia, myocardial infarction, COPD, gallstones, peptic ulcer or GERD. Procedure history is negative for cardiac catheterization, EPS study, persantine thallium, stress echo, stress thallium and exercise treadmill test. Past Medical History Diagnosis Date ??? Generalized anxiety disorder ??? Depressive disorder, not elsewhere classified ??? Vaginal vestibulitis Past Surgical History Procedure Date ??? section 04/03/2011 Family History Problem Relation Age of Onset [...] Years of Education: N/A Occupational History ??? [employer] Social History Main Topics ??? Smoking status: Never Smoker ??? Smokeless tobacco: Never Used ??? Alcohol Use: Yes social - rare ??? Drug Use: No ??? Sexually Active: Yes -- Male partner(s) Other Topics Concern ??? Not on file Social History Narrative Merged History Encounter Review of Systems Review of Systems Constitutional: Negative for fever and chills. HENT: Negative for sore throat and neck pain. Eyes: Negative for discharge. Respiratory: Positive for shortness of breath. Negative for cough. Cardiovascular: Positive for chest pain. Negative for leg swelling. Gastrointestinal: Positive for nausea. Negative for vomiting and abdominal pain. Genitourinary: Negative for flank pain. Musculoskeletal: Negative for back pain. Skin: Negative for rash. Neurological: Positive for dizziness. Negative for sensory change, focal weakness, loss of consciousness and headaches. Endo/Heme/Allergies: Does not bruise/bleed easily. Psychiatric/Behavioral: Negative for depression. The patient is nervous/anxious. All other systems reviewed and are negative. Physical Exam ? No Physical Exam Nursing note and vitals reviewed. Constitutional: She is oriented to person, place, and time. Vital signs are normal. She appears healthy. Non-toxic appearance. HENT: Head: Normocephalic and atraumatic. Right Ear: Tympanic membrane normal. Left Ear: Tympanic membrane normal. Nose: Nose normal. Mouth/Throat: Oropharynx is clear and moist. Eyes: EOM are normal. Pupils are equal, round, and reactive to light. Neck: Normal range of motion. Neck supple. Cardiovascular: Normal rate, regular rhythm and normal heart sounds. No murmur heard. Pulmonary/Chest: Effort normal and breath sounds normal. No respiratory distress. She has no wheezes. Abdominal: Soft. Normal aorta and bowel sounds are normal. She exhibits no distension. There is no hepatosplenomegaly. There is tenderness. There is positive Mar's sign. There is no rebound, no guarding, no CVA tenderness and no tenderness at McBurney's point. No hernia. Musculoskeletal: Normal range of motion. She exhibits no edema and no tenderness. Lymphadenopathy: She has no cervical adenopathy. Neurological: She is alert and oriented to person, place, and time. She has normal sensation, normal strength and normal reflexes. She has a normal Romberg Test. GCS score is 15. nvs intact, cap refill brisk, pulses = Skin: Skin is warm and dry. No rash noted. No erythema. No pallor. Psychiatric: Mood, memory, affect and judgment normal. Medications Current Outpatient Prescriptions Medication Sig Dispense Refill ??? famotidine (PEPCID) 40 MG tablet Take 40 mg by mouth once daily. ??? calcium carbonate (TUMS) 500 MG chew tablet Take 1 Tab by mouth daily with food. ??? norethindrone-ethinyl estradiol (LOESTRIN 1.5, 21,) 1.5-30 MG-MCG tablet ??? mometasone (NASONEX) 50 MCG/ACT nasal spray Irving 1 Irving into each nostril once daily. 1 Inhaler 0 Procedures Procedures EKG Interpretation Clinical Impression: normal EKG. Rhythm: normal sinus. Rate: normal. Heart rate:68. Ectopy: none. Blocks: none. EKG date completed: 03/02/2013 EKG time completed:19:44 ECG Rhythm Interpretation ECG Rhythm: normal sinus. ECG Rate: normal. ECG Heart Rate: 68. ECG Ectopy: none. Ecg Blocks: none. Lab Interpretation Normal Labs:normal CBC and normal Chemistry WBC:normal,Hemoglobin:normal,Hematocrit:normal, and Platelets:normal Na+:,Cl-:,BUN:,Glucose:,K+:decreased (3.4),HCO3-:,Creatinine:Mg: CK-MB:normal Troponin #1:normal Amylase:normal (44),Lipase:normal (145), and Liver Function: Oxygen Saturation Interpretation The oxygen saturation level is: 100%. The patient was on Room Air for the saturation measurement. Measurement frequency: Spot Check. Oxygen saturation interpretation is Normal. Intervention(s) used: None. Results for orders placed during the hospital encounter of 03/02/13 CBC W AUTO DIFFERENTIAL Component Value Range WBC 8.2 4.4-10.7 x10^9/L RBC 4.80 3.80-5.20 x10^12/L Hgb 14.4 12.0-15.6 g/dL HCT 40.2 35.9-45.5 % MCV 83.8 80.7-98.3 fl MCH 30.0 26.7-34.0 pg MCHC 35.8 30.8-35.9 gm/dL Plt Ct 285 153-416 x10^9/L RDW-CV 13.5 12.1-14.9 % MPV 10.7 9.4-12.9 fl Neutro 41 (*) 44-73 % Lymph 51 (*) 20-43 % [place] 6 5-13 % Eos 1 0-6 % Baso 0 0-2 % Immature Grans 0.2 0-1 % Neutro Abs 3.39 2.01-7.14 x10^9/L Lymph Abs 4.23 (*) 1.07-3.94 x10^9/L [place] Abs 0.51 0.26-1.07 x10^9/L Eosin Abs 0.07 0-0.47 x10^9/L Baso Abs 0.02 0-0.08 x10^9/L NRBC Auto 0 COMPREHENSIVE METABOLIC PANEL Component Value Range Glucose 94 74-106 mg/dL Sodium 141 136-145 mmol/L Potassium 3.4 (*) 3.5-5.1 mmol/L Chloride 106 98-107 mmol/L CO2 19 (*) 22-31 mmol/L Calcium 10.3 (*) 8.5-10.1 mg/dL Anion Gap 16 (*) 5-15 mmol/L BUN 13 7-21 mg/dL Creatinine 0.78 0.50-1.30 mg/dL eGFR by MDRD >60 >60 ml/min/1.73m2 eGFR by MDRD AFR AMER >60 >60 ml/min/1.73m2 Alk Phos 74 38-126 U/L ALT/SGPT 26 12-78 U/L AST/SGOT 18 5-40 U/L Protein Total 8.4 (*) 6.4-8.2 gm/dL Albumin 4.2 3.4-5.0 gm/dL Bili Total 0.4 0.2-1.0 mg/dL CARDIAC MARKER PANEL Component Value Range Troponin I <0.015 <0.100 ng/mL CK 93 35-232 U/L CK-MB ng/ml 0.8 0.0-5.0 ng/mL CK Index % 0.9 (*) 4.0-25.0 % LIPASE BLOOD Component Value Range Lipase 145 73-393 U/L AMYLASE BLOOD Component Value Range Amylase 44 15-115 U/L TSH Component Value Range TSH 1.34 0.358-3.740 uIU/mL XR CHEST PA AND LATERAL Final Result: Progress Notes 10:07 PM: Pt Rechecked- Pt resting comfortable, states she still experiences dizziness upon standing, but has improved. I discussed with pt lab findings. 10:52 PM Rechecked pt - Pain improved, vss medically stable for outpatient follow up Pt is medically stable for d/c home at this time. I have given the patient instructions regarding her diagnosis, expectations, follow up, and return precautions. I explained to the patient that emergent conditions may arise and to return to the ER for new, worsening, or any persistent conditions. I've explained the importance of following up with her doctor--Molly Alvarado--(or the referral physician) as instructed. The patient verbalized understanding of the discharge instructions. ED Course Medical Decision Making I have reviewed the: Previous Chart, Nursing Notes and Vitals. I have interpreted the following results: Labs, 12 Lead EKG, Rhythm Strip, X-Ray and Oxygen Saturation. Orders Placed This Encounter ??? XR CHEST PA AND LATERAL ??? CBC W AUTO DIFFERENTIAL ??? COMPREHENSIVE METABOLIC PANEL ??? CARDIAC MARKER PANEL ??? LIPASE BLOOD ??? AMYLASE BLOOD ??? TSH ??? EKG 12-LEAD ??? 0.9% NaCl IV Bolus ??? 0.9% NaCl infusion ??? 0.9% NaCl infusion ??? acetaminophen (TYLENOL) tablet 650 mg Diagnosis: Final diagnoses: Chest pain Dizziness Abdominal pain, epigastric Biliary colic New Medications: New Prescriptions No medications on file I have advised the patient to follow-up with: Molly Alvarado MD [facility] [address] [facility] [id number] Call in 1 day Disposition: Discharged I have reviewed the information recorded by the scribe and agree with its accuracy and contents--Dr. Tamayo Transcribed by Drew Starr acting scribe on behalf of Dr. Tamayo 03/02/2013 7:42 PM * Mango Grider RN - 03/02/2013 7:41 PM CDT Reports she awoke at 1430 today and has felt a squeezing in her chest since. For 3 months has had RUQ pain. She states she stood up and felt dizzy and near syncopal around 1900 today documented in this encounter Miscellaneous Notes * Miscellaneous Scans - Document, Scanned - 03/04/2013 3:20 PM CDT documented in this encounter Plan of Treatment Not on file documented as of this encounter Procedures Procedure Name Priority Date/Time Associated Diagnosis Comments XR CHEST 2VW STAT 03/02/2013 9:27 PM CDT Chest Pain CBC W AUTO DIFFERENTIAL STAT 03/02/2013 8:08 PM CDT COMPREHENSIVE METABOLIC PANEL STAT 03/02/2013 8:08 PM CDT CARDIAC MARKER PANEL Add on 03/02/2013 8:08 PM CDT LIPASE BLOOD Add on 03/02/2013 8:08 PM CDT AMYLASE BLOOD Add on 03/02/2013 8:08 PM CDT TSH Add on 03/02/2013 8:08 PM CDT EKG 12-LEAD STAT 03/02/2013 7:44 PM CDT documented in this encounter Results * XR CHEST PA AND LATERAL (03/02/2013 9:27 PM CDT) Anatomical Region Laterality Modality Chest Radiographic Tracy ging 03/02/2013 9:32 PM CDT Narrative 03/02/2013 9:32 PM CDT Examination: Chest two views. Indication for examination: Shortness of breath with chest pain. Two views of the chest show pulmonary hyperinflation with peribronchial. There is no discrete active or acute lung infiltrate and is no pleural effusion or pneumothorax. Heart size and pulmonary vascularity are within normal limits. CONCLUSION: Hyperinflation with peribronchial thickening. No acute infiltrate. No change from February 04, 2000. Procedure Note Fermin Wong MD - 03/02/2013 Examination: Chest two views. Indication for examination: Shortness of breath with chest pain. Two views of the chest show pulmonary hyperinflation with peribronchial. There is no discrete active or acute lung infiltrate and is no pleural effusion or pneumothorax. Heart size and pulmonary vascularity are within normal limits. CONCLUSION: Hyperinflation with peribronchial thickening. No acute infiltrate. No change from February 04, 2000. Yaniv KerrRoni DO DIAGNOSTIC IMAGING O RDERABLES * (ABNORMAL) COMPREHENSIVE METABOLIC PANEL (03/02/2013 8:08 PM CDT) Glucose 94 74 - 106 mg/dL 03/02/2013 8:28 PM [facility] Sodium 141 136 - 145 mmol/L 03/02/2013 8:28 PM [facility] Potassium 3.4(L) 3.5 - 5.1 mmol/L 03/02/2013 8:28 PM [facility] Chloride 106 98 - 107 mmol/L 03/02/2013 8:28 PM [facility] CO2 19(L) 22 - 31 mmol/L 03/02/2013 8:28 PM [facility] Calcium 10.3(H) 8.5 - 10.1 mg/dL 03/02/2013 8:28 PM [facility] Anion Gap 16(H) 5 - 15 mmol/L 03/02/2013 8:28 PM [facility] BUN 13 7 - 21 mg/dL 03/02/2013 8:28 PM [facility] Creatinine 0.78 0.50 - 1.30 mg/dL 03/02/2013 8:28 PM [facility] eGFR by MDRD >60 >60 ml/min/1.7 3m2 03/02/2013 8:28 PM [facility] eGFR by MDRD >60 >60 ml/min/1.7 3m2 03/02/2013 8:28 PM CDT [facility] Alkaline Phosphatase 74 38 - 126 U/L 03/02/2013 8:28 PM CDT [facility] ALT 26 12 - 78 U/L 03/02/2013 8:28 PM CDT [facility] AST 18 5 - 40 U/L 03/02/2013 8:28 PM CDT [facility] Protein Total 8.4(H) 6.4 - 8.2 gm/dL 03/02/2013 8:28 PM CDT [facility] Albumin 4.2 3.4 - 5.0 gm/dL 03/02/2013 8:28 PM CDT [facility] Bilirubin Total 0.4 0.2 - 1.0 mg/dL 03/02/2013 8:28 PM CDT [facility] Blood specimen (specimen) BLOOD SPECIMEN / Unknown 03/02/2013 8:08 PM CDT 03/02/2013 8:11 PM CDT Yaniv Tamayo DO LAB - CHEMISTRY [facility] Organization Address City/State/ZIP Co de Phone Number [facility] [address] [place] [address] * (ABNORMAL) CBC W AUTO DIFFERENTIAL (03/02/2013 8:08 PM CDT) WBC 8.2 4.4 - 10.7 x10^9/L 03/02/2013 8:13 PM CDT [facility] RBC 4.80 3.80 - 5.20 x10^12/L 03/02/2013 8:13 PM CDT [facility] Hemoglobin 14.4 12.0 - 15.6 g/dL 03/02/2013 8:13 PM CDT [facility] Hematocrit 40.2 35.9 - 45.5 % 03/02/2013 8:13 PM CDT [facility] MCV 83.8 80.7 - 98.3 fl 03/02/2013 8:13 PM CDT [facility] MCH 30.0 26.7 - 34.0 pg 03/02/2013 8:13 PM CDT [facility] MCHC 35.8 30.8 - 35.9 gm/dL 03/02/2013 8:13 PM CDT [facility] Platelet Count 285 153 - 416 x10^9/L 03/02/2013 8:13 PM CDT [facility] RDW-CV 13.5 12.1 - 14.9 % 03/02/2013 8:13 PM CDT [facility] MPV 10.7 9.4 - 12.9 fl 03/02/2013 8:13 PM CDT [facility] Neutrophils % 41(L) 44 - 73 % 03/02/2013 8:13 PM CDT [facility] Lymphocytes % 51(H) 20 - 43 % 03/02/2013 8:13 PM CDT [facility] Monocytes % 6 5 - 13 % 03/02/2013 8:13 PM CDT [facility] Eosinophils % 1 0 - 6 % 03/02/2013 8:13 PM CDT [facility] Basophils % 0 0 - 2 % 03/02/2013 8:13 PM CDT [facility] Immature Granulocytes 0.2 0 - 1 % 03/02/2013 8:13 PM CDT [facility] Neutrophil Absolute 3.39 2.01 - 7.14 x10^9/L 03/02/2013 8:13 PM CDT [facility] Lymphocytes Absolute 4.23(H) 1.07 - 3.94 x10^9/L 03/02/2013 8:13 PM CDT [facility] Monocytes Absolute 0.51 0.26 - 1.07 x10^9/L 03/02/2013 8:13 PM CDT [facility] Eosinophils Absolute 0.07 0 - 0.47 x10^9/L 03/02/2013 8:13 PM CDT [facility] Basophils Absolute 0.02 0 - 0.08 x10^9/L 03/02/2013 8:13 PM CDT [facility] nRBC Auto 0 03/02/2013 8:13 PM CDT [facility] Blood specimen (specimen) BLOOD SPECIMEN / Unknown 03/02/2013 8:08 PM CDT 03/02/2013 8:11 PM CDT Yaniv Tamayo DO LAB - HEMATOLOGY ORD ERABLES [facility] [address] [id number] * TSH (03/02/2013 8:08 PM CDT) [facility] TSH 1.34 0.358 - 3.740 uIU/mL 03/02/2013 10:48 PM CDT [facility] Blood specimen (specimen) BLOOD SPECIMEN / Unknown 03/02/2013 8:08 PM CDT 03/02/2013 8:11 PM CDT Yaniv Tamayo [email or web address] LAB - CHEMISTRY [facility] Performing Organization Address City/[facility]/ZIP Co de Phone Number [facility] [address] [facility] [place] [place] [address] * AMYLASE BLOOD (03/02/2013 8:08 PM CDT) [facility] Amylase 44 15 - 115 U/L 03/02/2013 9:32 PM CDT [facility] Blood specimen (specimen) BLOOD SPECIMEN / Unknown 03/02/2013 8:08 PM CDT 03/02/2013 8:55 PM CDT Yaniv Tamayo [email or web address] LAB - CHEMISTRY [facility] Performing Organization Address [facility]/ZIP Co de Phone Number [facility] [address] [facility] [place] [address] * LIPASE BLOOD (03/02/2013 8:08 PM CDT) [facility] Lipase 145 73 - 393 U/L 03/02/2013 9:32 PM CDT [facility] Blood specimen (specimen) BLOOD SPECIMEN / Unknown 03/02/2013 8:08 PM CDT 03/02/2013 8:55 PM CDT Yaniv Priceski [email or web address] LAB - CHEMISTRY [facility] Performing Organization Address [facility]/ZIP Co de Phone Number [facility] [address] [facility] [place] [address] * (ABNORMAL) CARDIAC MARKER PANEL (03/02/2013 8:08 PM CDT) [facility] Troponin I <0.015 <0.100 ng/mL 03/02/2013 9:11 PM CDT [facility] CK 93 35 - 232 U/L 03/02/2013 9:11 PM CDT [facility] CK-MB 0.8 0.0 - 5.0 ng/mL 03/02/2013 9:11 PM CDT [facility] CK Index % 0.9(L) 4.0 - 25.0 % 03/02/2013 9:11 PM CDT [facility] Blood specimen (specimen) BLOOD SPECIMEN / Unknown 03/02/2013 8:08 PM CDT 03/02/2013 8:55 PM CDT Yaniv Tamayo DO LAB - CHEMISTRY [facility] Performing Organization Address [facility] Co de Phone Number [facility] [address] [address] * EKG 12-LEAD (03/02/2013 7:44 PM CDT) Ventricular Rate 68 BPM [facility] Atrial Rate 68 BPM [facility] P-R Interval 102 ms [facility] QRS Duration ms 82 ms [facility] Q-T Interval ms 396 ms [facility] QTC Calculation (Bezet) 421 ms [facility] Calculated P [place] 50 degrees [facility] Calculated R [place] 48 degrees [facility] Calculated T [place] 55 degrees [facility] Interpretation EKG Sinus rhythm with short TX Nonspecific ST abnormality Abnormal ECG No previous ECGs available Confirmed by MD PEDRO, ROBIN Cuenca (3) on 03/05/2013 7:40:31 AM [facility] 03/02/2013 7:44 PM CDT 03/05/2013 7:40 AM CDT Narrative [facility] - 03/05/2013 7:42 AM CDT Procedure Note Document, Scanned - 03/04/2013 8:42 AM CDT Transcriptions Document, Scanned - 03/05/2013 7:42 AM CDT Yaniv Tamayo DO ECG ORDERABLES Performing Organization Address City/[facility]/ZIP Co de Phone Number [facility] documented in this encounter Visit Diagnoses Diagnosis Chest pain Chest pain, unspecified Dizziness Dizziness and giddiness Abdominal pain, epigastric Biliary colic Calculus of gallbladder without mention of cholecystitis or obstruction Dizziness and giddiness documented in this encounter Administered Medications Inactive Administered Medications - up to 3 most recent administrations Medication Order MAR Action Action Date Dose Rate Site 0.9% NaCl infusion at 1,000 mL/hr, Intravenous, BOLUS IV, 1 dose, On 03/02/13 at 2115 $ Given 03/02/2013 9:25 PM CDT 1,000 mL 1000 mL/hr acetaminophen (TYLENOL) tablet 650 mg 650 mg, Oral, ONCE, 1 dose, On 03/02/13 at 2145, Maximum allowable Acetaminophen amount = 4 Grams (4000 mg) / 24 hours. $ Given 03/02/2013 9:38 PM CDT 650 mg documented in this encounter Active and Recently Administered Medications Times are shown in CDT. Scheduled Medication Order 02/28/2013 03/01/2013 03/02/2013 0.9% NaCl infusion (COMPLETED) at 1,000 mL/hr, Intravenous, BOLUS IV, 1 dose, On 03/02/13 at 2115 2125 ($ Given - Prov ider: Leslee Martinez RN)2254 (Rx Stopped - Provider: Leslee Martinez RN - Comment: infusion complete) acetaminophen (TYLENOL) tablet 650 mg (COMPLETED) 650 mg, Oral, ONCE, 1 dose, On 03/02/13 at 2145, Maximum allowable Acetaminophen amount = 4 Grams (4000 mg) / 24 hours. 2138 ($ Given - Prov ider: Leslee Martinez RN) documented in this encounter Care Teams Brake Reliner Relationship Specialty Start Date End Date Molly Alvarado MD PCP - General Family Medicine 12/05/11 08/25/15 documented as of this encounter
--- OUTSIDE RECORDS SUMMARY | 2024-07-30 14:07 | XMS_ITS | Encounter Summary ---
Author Organization [facility] Address [address] [place] [address] Care Team Providers Care Registered Sales Assistant Name Role Phone Molly Alvarado MD Primary Care Provider Reason for Referral * - Closed Specialty Diagnoses / Procedures Referred By Contac t Referred To Contact Ultrasound Diagnoses Abdominal pain, RUQ (right upper quadrant) Procedures US GALLBLADDER us gallbladder Molly Alvarado MD [address] [place] [address] [facility] [address] [place] [address] Referral ID Status Reason Start Date Expiration Date Visits Re quested Visits Authorized [id number] Closed 03/06/2013 09/02/2013 1 1 Reason for Visit * - Closed Specialty Diagnoses / Procedures Referred By Contac t Referred To Contact Ultrasound Diagnoses Abdominal pain, RUQ (right upper quadrant) Procedures US GALLBLADDER us gallbladder Molly Alvarado MD [address] [place] [address] [facility] [address] [place] [address] Referral ID Status Reason Start Date Expiration Date Visits Re quested Visits Authorized [id number] Closed 03/06/2013 09/02/2013 1 1 Encounter Details Date Type Department Care Team (Late st Contact Info) Description 03/07/2013 7:30 AM CDT - 03/07/2013 11:59 PM CDT Hospital Encounter [facility] - Ultrasound [address] [address] Molly Alvarado MD [address] [place] [address] Discharge Disposition: Home or Self Care Social History Tobacco Use Types Packs/Day Years Used Date Smoking Tobacco: Never Smokeless Tobacco: Never Alcohol Use Standard Drinks/Week Comments Yes 0 (1 standard drink = 0.6 oz pur e alcohol) social - rare Sex and Gender Information Value Date Recorded Sex Assigned at Not on file Gender Identity Female 08/19/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 03/13/2014 predniSONE (DELTASONE) 20 MG tablet Take 1 Tab by mouth 2 times daily. 10 Tab 0 03/06/2013 04/03/2013 documented as of this encounter Progress Notes * Molly Alvarado MD - 03/18/2013 1:23 PM CDTQuick Note: Please let patient know ultrasound is normal. documented in this encounter Miscellaneous Notes * Miscellaneous Scans - Document, Scanned - 03/08/2013 5:29 PM CDT documented in this encounter Plan of Treatment Not on file documented as of this encounter Procedures Procedure Name Priority Date/Time Associated Diagnosis Comments US GALLBLADDER Routine 03/07/2013 8:07 AM CDT Abdominal pain, RUQ (right upper quadrant) documented in this encounter Results * US GALLBLADDER (03/07/2013 8:07 AM CDT) [...] gallbladder ultrasound. Molly Alvarado MD US ORDERABLES documented in this encounter Visit Diagnoses Diagnosis Abdominal pain, RUQ (right upper quadrant) Abdominal pain, right upper quadrant documented in this encounter Care Teams Registered Sales Assistant Relationship Specialty Start Date End Date Molly Alvarado MD PCP - General Family Medicine 12/05/11 08/25/15 documented as of this encounter
--- OUTSIDE RECORDS SUMMARY | 2024-07-30 14:07 | XMS_ITS | Encounter Summary ---
Author Organization [facility] Address [address] [place] [address] Care Team Providers Care Pants Maker Name Role Phone Avery Hidalgo DO Primary Care Provider [phone] Reason for Visit * Reason Comments Follow-up 6 MO Encounter Details Date Type Department Care Team (Late st Contact Info) Description 06/22/2016 11:30 AM PAINTER AND BODY MECHANIC APPRENTICE Office Visit [facility] Medical [facility] - Internal Medicine [address] [place] [address] Avery Hidalgo DO [address] [place], [place] [id number] Urethrodynia (Primary Dx); Anxiety and depression; Vitamin D deficiency disease; Gastroesophageal reflux disease, esophagitis presence not specified Social History Tobacco Use Types Packs/Day Years Used Date Smoking Tobacco: Never Smokeless Tobacco: Never Alcohol Use Standard Drinks/Week Comments Yes 0 (1 standard drink = 0.6 oz pur e alcohol) social - rare Sex and Gender Information Value Date Recorded Sex Assigned at Not on file Gender Identity Female 08/19/2022 7:56 AM PAINTER AND BODY MECHANIC APPRENTICE Sexual Orientation Not on file documented as of this encounter Last Filed Vital Signs Vital Sign Reading Time Taken Comments Blood Pressure 118/70 06/22/2016 11:37 AM PAINTER AND BODY MECHANIC APPRENTICE Pulse 82 06/22/2016 11:37 AM PAINTER AND BODY MECHANIC APPRENTICE Temperature 36.9 ??C (98.5 ??F) 06/22/2016 11:[address] Respiratory Rate 12 06/22/2016 11:37 AM PAINTER AND BODY MECHANIC APPRENTICE Oxygen Saturation 100% 06/22/2016 11:37 AM PAINTER AND BODY MECHANIC APPRENTICE Inhaled Oxygen Concentration - - Weight 44.4 kg (97 lb 12.8 oz) 06/22/2016 11:37 AM PAINTER AND BODY MECHANIC APPRENTICE Height 154.9 cm (5' 1 ) 06/22/2016 11:37 AM PAINTER AND BODY MECHANIC APPRENTICE Body Mass Index 18.48 06/22/2016 11:37 AM PAINTER AND BODY MECHANIC APPRENTICE documented in this encounter Patient Instructions * Patient Instructions* Avery Hidalgo DO - 06/22/2016 12:08 PM PAINTER AND BODY MECHANIC APPRENTICE Continue current supplements and medications for improving/stable chronic medical conditions. Patient was encouraged to call immediately for any concerns or problems. TER AND BODY MECHANIC APPRENTICE documented in this encounter Progress Notes * Avery Hidalgo DO - 06/22/2016 12:54 PM CST SUBJECTIVE: Cata Urena is a 31 y.o. female here for follow up of multiple chronic problems. Depression /anxiety: Interval History: Mood has remained stable since last visit. No suicidal thoughts. Lexapro not working well saw psychiatry medication adjustments made needs refills from me. Vitamin-D deficiency. Supplement daily energy level improved urethrdynia. Took antibiotic now left with burning sensation in the beginning of your urine stream.No polyuria no evidence of bladder spasm. Denies vaginal discharge or irritation. Other concerns: reflux. Reports using Pepcid Tagamet and Prilosec non forthcoming with when symptoms are worst reports saw a GI years ago at this time refuses further intervention and is not understanding what medications need to be used Compliance and Risk Factor reduction: Following all [...] most recent labs and studies OBJECTIVE: BP 118/70 (BP SITE: LEFT ARM, BP POSITION: SITTING, BP CUFF SIZE: Adult) Pulse 82 Temp 98.5 ??F (Temporal) Resp 12 Wt 44.4 kg (97 lb 12.8 oz) BMI 18.48 kg/m2 Wt Readings from Last 3 Encounters: 06/22/16 44.4 kg (97 lb 12.8 oz) 12/08/15 43 kg (94 lb 12.8 oz) 12/04/15 40.8 kg (90 lb) Temp Readings from Last 3 Encounters: 06/22/16 98.5 ??F (Temporal) 12/08/15 97.5 ??F (Temporal) 12/04/15 98.7 ??F BP Readings from Last 3 Encounters: 06/22/16 118/70 12/08/15 106/60 12/04/15 104/64 Pulse Readings from Last 3 Encounters: 06/22/16 82 12/08/15 72 12/04/15 97 Head,eye ; normocephalic, atraumatic. PERRRLA. EOMI ENT [...] no pedal edema, no clubbing or cyanosis A comprehensive diabetic foot exam was performed today on bare feet including visual inspection, monofilament, and assessment of pulses. TODAY'S IN OFFICE LABS:No results found for this visit on 06/22/16. ASSESSMENT/PLAN: 1. Urethrodynia ; Appears to be functional recommend cranberry pills to be taken see Urology 2. Anxiety and depression ; Maintain current meds refills done 3. Vitamin D deficiency disease ; Condition stable. New labs ordered if indicated and medications refilled. 4. Gastroesophageal reflux disease, esophagitis presence not specified ; Patient is an health care feels she has correct answer even no medication choices are poorly controlling symptoms refuses proper evaluation and intervention Outpatient Encounter Prescriptions as of 06/22/2016 Medication Sig Dispense Refill ??? vitamin D3 ([facility] VIT D 5000 HIGH-POTENCY) 5000 UNITS capsule Take 1 Cap by mouth once daily ??? DULoxetine (CYMBALTA) 60 MG capsule Take 1 Cap by mouth once daily 5 ??? clonazePAM (KLONOPIN) 0.5 MG tablet Take 0.5 mg by mouth 2 times daily ??? venlafaxine XR 24hr (EFFEXOR XR) 75 MG capsule Take 1 Cap by mouth once daily 0 ? ? AMETHIA 0.15-0.03 &0.01 MG tablet Take 1 Tab by mouth once daily 11 ??? [DISCONTINUED] ciprofloxacin (CIPRO) 500 MG tablet Take 1 Tab by mouth 2 times daily 14 Tab 0 ??? [DISCONTINUED] escitalopram (LEXAPRO) 10 MG tablet Take 1 Tab by mouth once daily. (Patient taking differently: Take 10 mg by mouth once daily Reasons: patient takes 10mg in the AM and 5mg in thePM) 30 Tab 0 No facility-administered encounter medications on file as of 06/22/2016. TER AND BODY MECHANIC APPRENTICE * Beryl Chamberlain - 06/22/2016 11:45 AM CST PHQ-2 : Pt. declined depression screening (date): (Patient under care of psychiatry) Little interest or pleasure in doing things: Several days Feeling down, depressed, or hopeless: Several days TOTAL POINT SCORE: 2 PHQ-9: Little interest or pleasure in doing things: Several days Feeling down, depressed, or hopeless: Several days TER AND BODY MECHANIC APPRENTICE documented in this encounter Plan of Treatment Not on file documented as of this encounter Visit Diagnoses Diagnosis Urethrodynia- Primary Other symptoms involving urinary system Anxiety and depression Dysthymic disorder Vitamin D deficiency disease Unspecified vitamin D deficiency Gastroesophageal reflux disease, esophagitis presence not specified documented in this encounter Care Teams Pants Maker Relationship Specialty Start Date End Date Avery Hidalgo DO PCP - General Family Medicine 08/26/15 03/25/20 documented as of this encounter
--- OUTSIDE RECORDS SUMMARY | 2024-07-30 14:07 | XMS_ITS | Encounter Summary ---
Author Organization [facility] Address [address] [facility] [place] [address] Care Team Providers Care Dry Heat Room Attendant Name Role Phone Molly Alvarado MD Primary Care Provider Reason for Visit * Reason Comments Establish Care Encounter Details Date Type Department Care Team (Late st Contact Info) Description 12/05/2011 10:15 AM CDT Office Visit [facility] Medical [facility] - Family Medicine [address] [place] [address] [address] [place] [address] Molly Alvarado MD [address] [place] [address] [address] [place] [address] Routine general medical examination at a health care facility (Primary Dx); Cerumen impaction; Anxiety state, unspecified Social History Tobacco Use Types Packs/Day Years Used Date Smoking Tobacco: Never Smokeless Tobacco: Never Alcohol Use Standard Drinks/Week Comments Yes 0 (1 standard drink = 0.6 oz pur e alcohol) social - rare Sex and Gender Information Value Date Recorded Sex Assigned at Not on file Gender Identity Female 08/19/2022 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 Sexual Orientation Not on file documented as of this encounter Last Filed Vital Signs Vital Sign Reading Time Taken Comments Blood Pressure 121/78 12/05/2011 10:22 AM CDT Pulse 77 12/05/2011 10:22 AM CDT Temperature 37.3 ??C (99.2 ??F) 12/05/2011 10:22 AM C DT Respiratory Rate 17 12/05/2011 10:22 AM CDT Oxygen Saturation - - Inhaled Oxygen Concentration - - Weight 42.6 kg (94 lb) 12/05/2011 10:22 AM CDT Height 154.9 cm (5' 1 ) 12/05/2011 10:22 AM CDT Body Mass Index 17.76 12/05/2011 10:22 AM CDT documented in this encounter Progress Notes * Tristin Ashby - 12/06/2011 3:27 PM CDTAddended by: TRISTIN ASHBY on: 12/06/2011 03:27 PM Modules accepted: Level of Service * Tristin Ashby - 12/06/2011 3:26 PM CDT Bus Aide updated cpt due to age of patient * Molly Alvarado MD - 12/05/2011 10:49 AM CDT SUBJECTIVE: Cata Urena is a 26 y.o. female here for the first time today. Here for routine exam. Has a lot of issues with anxiety. Says she was on a combination of remeron and effexor a couple of years ago which helped significantly. Says she was trying to get so stopped her medications. Her baby is now 8 months old so she wants to get back on the medications. Says she gets so anxious that she can't eat. She has been losing weight and is already too thin. Says when she was on the remeron, her appetite was fine and her weight went back to normal. She does work nights which affects her sleep. No suicidal thoughts. Also left ear feels full and hearing is muffled. Past Medical History Diagnosis Date ??? Generalized anxiety disorder ??? Depressive disorder, not elsewhere classified ??? Vaginal vestibulitis Past Surgical History Procedure Date ??? section 04/03/2011 Allergies Allergen Reactions ??? Tetanus Toxoid Anaphylaxis ??? Tetanus Toxoid Anaphylaxis ??? Latex Itching Red and swollen Current Outpatient Prescriptions on File Prior to Visit Medication Sig Dispense Refill ??? multivitamin daily (THERAGRAN) tablet once daily. ??? famotidine (PEPCID) 20 MG tablet Take 20 mg by mouth once daily. ??? calcium carbonate (TUMS) 500 MG chew tablet Take 1 Tab by mouth as needed. History Social History ??? Marital Status: Spouse [...] file Social History Narrative Merged History Encounter Family History Problem Relation Age of Onset ??? Hypercholesterolemia Father ??? Depression Father ??? Cancer Mother breast ??? Arthritis-rheumatoid Maternal Grandmother ??? Coronary Artery Disease Maternal Grandmother ??? Diabetes Maternal Grandmother ??? Heart Failure Maternal Grandmother ??? Hypertension Mother ??? Hypertension Father ??? Thyroid Disease Mother ??? Thyroid Disease Maternal Grandmother ??? Thyroid Disease Paternal Grandmother ROS negative except as noted in HPI. This is a 26 y.o. year old, white female OBJECTIVE: BP 121/78 Pulse 77 Temp(Src) 99.2 ??F (Oral) Resp 17 Wt 94 lb (42.638 kg) BMI 17.76 kg/m2 General: Awake, alert, NAD. anxious affect. SHEENT: Skin is warm and dry. Right TM clear. Left TM blocked with cerumen. Pharynx is clear. Neck is supple. Nasal mucosa is unremarkable. PERRLA. EOMI. Fundi benign Heart: Regular rate and rhythm. No carotid bruits or thrills. Normal S1S2. No murmurs. Lungs: Clear to auscultation bilaterally. No wheezes, rhonchi or rales. Abdomen: Soft. Nontender. No masses palpated. Normal bowel sounds. No hepatosplenomegaly. Extremities: No cyanosis, clubbing or edema. Neuro: CN II - XII grossly intact. DTR 2/4. Strenght 5/5 Musculoskeletal: Grossly normal ASSESSMENT: 1. Routine general medical examination at a health care facility 2. Cerumen impaction OR REMOVE IMPACTED EAR WAX 3. Anxiety state, unspecified mirtazapine (REMERON) 15 MG tablet, venlafaxine XR 24hr (EFFEXOR XR) 75 MG capsule PLAN: Orders Placed This Encounter ??? OR REMOVE IMPACTED EAR WAX ??? mirtazapine (REMERON) 15 MG tablet Sig: Take 1/2 pill daily Dispense: 30 Tab Refill: 1 ??? venlafaxine XR 24hr (EFFEXOR XR) 75 MG capsule Sig: Take 1 Cap by mouth daily with breakfast. Dispense: 30 Cap Refill: 3 Side effects of medications discussed. Plan to follow up in 6 week(s). Return sooner for problems. The patient indicates understanding of these issues and agrees with the plan. MEDICATIONS: See list below (updated today) * Katerina Hernandez MA - 12/05/2011 10:24 AM CDT Cata Urena is here today as a new patient to establish. documented in this encounter Plan of Treatment Not on file documented as of this encounter Visit Diagnoses Diagnosis Routine general medical examination at a health care facility- Primary Cerumen impaction Impacted cerumen Anxiety state, unspecified documented in this encounter Care Teams Dry Heat Room Attendant Relationship Specialty Start Date End Date Molly Alvarado MD PCP - General Family Medicine 12/05/11 08/25/15 documented as of this encounter
--- OUTSIDE RECORDS SUMMARY | 2024-07-30 14:07 | XMS_ITS | Encounter Summary ---
Author Organization [facility] Address [address] [facility] [place] [address] Care Team Providers Care Nutrition Services Aide Name Role Phone Molly Alvarado MD Primary Care Provider Reason for Referral * - Closed Specialty Diagnoses / Procedures Referred By Contac t Referred To Contact Ultrasound Diagnoses Abdominal pain, RUQ (right upper quadrant) Procedures US GALLBLADDER us gallbladder Molly Alvarado MD [address] [place] [address] [facility] [address] [facility] [place] [address] Referral ID Status Reason Start Date Expiration Date Visits Re quested Visits Authorized [id number] Closed 03/06/2013 09/02/2013 1 1 Reason for Visit * Reason Comments Breathing Problem Chest Tightness Encounter Details Date Type Department Care Team (Late st Contact Info) Description 03/06/2013 9:00 AM CDT Office Visit [facility] Medical [facility] - Family Medicine [address] [place] [address] [address] [place] [address] Molly Alvarado MD [address] [place] [address] Abdominal pain, RUQ (right upper quadrant) (Primary Dx); Atypical chest pain Social History Tobacco Use Types Packs/Day Years Used Date Smoking Tobacco: Never Smokeless Tobacco: Never Alcohol Use Standard Drinks/Week Comments Yes 0 (1 standard drink = 0.6 oz pur e alcohol) social - rare Sex and Gender Information Value Date Recorded Sex Assigned at Not on file Gender Identity Female 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 Sexual Orientation Not on file documented as of this encounter Last Filed Vital Signs Vital Sign Reading Time Taken Comments Blood Pressure 130/80 03/06/2013 8:54 AM CDT Pulse 98 03/06/2013 8:54 AM CDT Temperature 36.9 ??C (98.4 ??F) 03/06/2013 8:54 AM CD T Respiratory Rate 17 03/06/2013 8:54 AM CDT Oxygen Saturation - - Inhaled Oxygen Concentration - - Weight 40.8 kg (90 lb) 03/06/2013 8:54 AM CDT Height 154.9 cm (5' 1 ) 03/06/2013 8:54 AM CDT Body Mass Index 17.01 03/06/2013 8:54 AM CDT documented in this encounter Progress Notes * Molly Alvarado MD - 03/06/2013 9:32 AM CDT SUBJECTIVE: Cata Urena is a 27 y.o. female here for ER follow up. Has had chest pain/tightness for 4 days. No known injury. Worse with deep inspiration. No recent illness. She is a nonsmoker. No history of asthma. Has had nausea and RUQ pain as well. No worsening with food. Work up in ED was negative. Weight stable. No fevers/chills. No frequent headaches. No vision changes. No cough or congestion. No night sweats. No side effects from medications. No hemoptysis. Regular BMs. No melena or hematochezia. No dysuria or hematuria. No polyuria, polydipsia, or fatigue. OBJECTIVE: BP 130/80 Pulse 98 Temp 98.4 ??F (Oral) Resp 17 Wt 40.824 kg (90 lb) BMI 17.01 kg/m2 General: Awake, alert and NAD SHEENT: Skin is warm and dry. TM's are unremarkable. Pharynx is clear. Neck is supple. Nasal mucosais unremarkable. PERRLA. EOMI. Heart: Regular rate and rhythm. No carotid bruits. No thrills. No murmurs. Lungs: Clear to auscultation bilaterally. Chest: Mild diffuse tenderness anterior chest wall Abdomen: Soft. Mild RUQ tenderness. Mar's sign is positive. No masses palpated. Normal bowel sounds Extremities: No edema. No cyanosis or clubbing Neuro: CN II - XII grossly intact. ASSESSMENT: Encounter Diagnoses Name Primary? Abdominal pain, RUQ (right upper quadrant) Yes ??? Atypical chest pain PLAN: Orders Placed This Encounter ??? US GALLBLADDER Standing Status: Future Number of Occurrences: Standing Expiration Date: 03/06/2014 Order Specific Question: Exam to be performed? Answer: Per Radiologist protocol ??? predniSONE (DELTASONE) 20 MG tablet Sig: Take 1 Tab by mouth 2 times daily. Dispense: 10 Tab Refill: 0 Follow up in 1 week To ER if symptoms worsen. * Katerina Hernandez MA - 03/06/2013 8:55 AM CDT Cata Urena is here today with shortness of breath and chest tightness. documented in this encounter Plan of Treatment Not on file documented as of this encounter Results * US GALLBLADDER (03/07/2013 [...] Diagnoses Diagnosis Abdominal pain, RUQ (right upper quadrant)- Primary Abdominal pain, right upper quadrant Atypical chest pain Other chest pain Abdominal pain, RUQ (right upper quadrant) Abdominal pain, right upper quadrant documented in this encounter Care Teams Nutrition Services Aide Relationship Specialty Start Date End Date Molly Alvarado MD PCP - General Family Medicine 12/05/11 08/25/15 documented as of this encounter
--- OUTSIDE RECORDS SUMMARY | 2024-07-30 14:07 | XMS_ITS | Encounter Summary ---
Author Organization [facility] Address [address] [facility] [place] [address] Care Team Providers Care Kilnman Name Role Phone Daja Orr MD Primary Care Provider Encounter Details Date Type Department Care Team (Latest Contact Info) Description 08/23/2011 7:26 AM ANTISQUEAK APPLIER - 08/23/2011 11:59 PM [facility] Hospital Encounter [facility] [address] [facility] 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 02/14/2012 famotidine (PEPCID) 20 MG tablet Take 20 mg by mouth once daily. 11/12/2012 levonorgestrel-ethinyl estradiol (SEASONALE) tablet once daily. 12/05/2011 multivitamin daily (THERAGRAN) tablet once daily. 3 documented as of this encounter Miscellaneous Notes * Miscellaneous Scans - Document, Scanned - 08/30/2011 12:53 PM CST SQUEAK APPLIER documented in this encounter Plan of Treatment Not on file documented as of this encounter Visit Diagnoses Diagnosis Other screening mammogram Family history of malignant neoplasm of breast documented in this encounter Care Teams Kilnman Relationship Specialty [place] [id number] [address] [place] [id number] PCP - General Internal Medicine 06/17/11 12/04/11 documented as of this encounter
--- OUTSIDE RECORDS SUMMARY | 2024-07-30 14:07 | XMS_ITS | Encounter Summary ---
Author Organization [facility] Address [address] [facility] [place] [address] Care Team Providers Care Manager Lean Name Role Phone Avery Hidalgo DO Primary Care Provider [phone] Reason for Visit * Reason Onset Date Comments Scheduling 08/18/2016 Encounter Details Date Type Department Care Team (Late st Contact Info) Description 08/18/2016 Telephone [facility] Medical [facility] - Urology [address] [facility] [address] [place] [address] MastromicDakotah gambino MD [address] [facility] [address] [place] [address] Scheduling Social History Tobacco Use Types Packs/Day Years Used Date Smoking Tobacco: Never Smokeless Tobacco: Never Alcohol Use Standard Drinks/Week Comments Yes 0 (1 standard drink = 0.6 oz pur e alcohol) social - rare Sex and Gender Information Value Date Recorded Sex Assigned at Not on file Gender Identity Female 08/19/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 Returned call and left message to reschedule patient. RVISOR LAUNDRY documented in this encounter Plan of Treatment Not on file documented as of this encounter Visit Diagnoses Not on filedocumented in this encounter Care Teams Manager Lean Relationship Specialty Start Date End Date Avery Hidalgo DO PCP - General Family Medicine 08/26/15 03/25/20 documented as of this encounter
--- OUTSIDE RECORDS SUMMARY | 2024-07-30 14:07 | XMS_ITS | Encounter Summary ---
Author Organization [facility] Address [address] [facility] [place] [address] Care Team Providers Care Jewelry Making Instructor Name Role Phone Molly Alvarado MD Primary Care Provider Reason for Visit * Reason Onset Date Comments Follow-up 11/09/2013 Encounter Details Date Type Department Care Team (Late st Contact Info) Description 11/09/2013 Telephone [facility] [address] [place] [id number] Jyoti Lan RN Follow-up Social History Tobacco Use Types Packs/Day Years Used Date Smoking Tobacco: Never Smokeless Tobacco: Never Alcohol Use Standard Drinks/Week Comments Yes 0 (1 standard drink = 0.6 oz pur e alcohol) social - rare Sex and Gender Information Value Date Recorded Sex Assigned at Not on file Gender Identity Female 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 documented in this encounter Plan of Treatment Not on file documented as of this encounter Visit Diagnoses Not on filedocumented in this encounter Care Teams Jewelry Making Instructor Relationship Specialty Start Date End Date Molly Alvarado MD PCP - General Family Medicine 12/05/11 08/25/15 documented as of this encounter
--- OUTSIDE RECORDS SUMMARY | 2024-07-30 14:07 | XMS_ITS | Encounter Summary ---
Author Organization [facility] Address [address] [facility] [place] [address] Care Team Providers Care Grid Operator Name Role Phone Molly Alvarado MD Primary Care Provider Reason for Visit * Reason Comments Sore Throat Congestion Encounter Details Date Type Department Care Team (Late st Contact Info) Description 11/12/2012 11:30 AM CDT Office Visit [facility] - Family Medicine [address] [place] [address] Molly Alvarado MD [address] [place] [address] [address] [place] [address] URI (upper respiratory infection) (Primary Dx) Social History Tobacco Use Types Packs/Day Years Used Date Smoking Tobacco: Never Smokeless Tobacco: Never Alcohol Use Standard Drinks/Week Comments Yes 0 (1 standard drink = 0.6 oz pur e alcohol) social - rare Sex and Gender Information Value Date Recorded Sex Assigned at Not on file Gender Identity Female 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 Sexual Orientation Not on file documented as of this encounter Last Filed Vital Signs Vital Sign Reading Time Taken Comments Blood Pressure 122/75 11/12/2012 11:43 AM CDT Pulse 72 11/12/2012 11:43 AM CDT Temperature 36.5 ??C (97.7 ??F) 11/12/2012 11:43 AM C DT Respiratory Rate 17 11/12/2012 11:43 AM CDT Oxygen Saturation - - Inhaled Oxygen Concentration - - Weight 41.9 kg (92 lb 6.4 oz) 11/12/2012 11:43 A M CDT Height 154.9 cm (5' 1 ) 11/12/2012 11:43 AM CDT Body Mass Index 17.46 11/12/2012 11:43 AM CDT documented in this encounter Progress Notes * Molly Alvarado MD - 11/12/2012 11:56 AM CDT SUBJECTIVE: Cata Urena is a 27 y.o. female who complains of congestion, sore throat, swollen glands, post nasal drip, dry cough, myalgias, hoarseness and fatigue for 8 days.nasal mucous is clear to yellow incolor She denies a history of anorexia, chest pain, fevers, nausea, shortness of breath, sweats, vomiting, weakness, weight loss and wheezing and denies a history of asthma. Patient does not smoke cigarettes. OBJECTIVE: She appears well, vital signs are as noted. HEENT: head normocephalic and atraumatic. Eyes pupils are equally round and reactive to light ears tms are clear, canals are clear. Throat erythematous without exudates. Nares with edematous mucosa. Mild sinus tenerness. Voice is hoarse. NECK: supple without lymphadenopathy. HEART: Regular rate and rhythm, without murmur, gallop or rubs. LUNGS: clear to ascultation without rales, wheezes or rhonchi. ABDOMEN: soft non tender to palpation, no hepato-splenomegaly is noted, good bowel sounds are present. Extremities no edema present. ASSESSMENT: upper respiratory illness PLAN: Can otc mucinex 1-2 bid Symptomatic therapy suggested: push fluids, rest and return office visit prn if symptoms persist orworsen. Given script for Zpack and nasonex Call or return to clinic prn if these symptoms worsen or fail to improve as anticipated. * Katerina Hernandez MA - 11/12/2012 11:44 AM CDT Cata Urena is here today with sore throat and congestion. documented in this encounter Plan of Treatment Not on file documented as of this encounter Visit Diagnoses Diagnosis URI (upper respiratory infection)- Primary Acute upper respiratory infections of unspecified site documented in this encounter Care Teams Grid Operator Relationship Specialty Start Date End Date Molly Alvarado MD PCP - General Family Medicine 12/05/11 08/25/15 documented as of this encounter
--- OUTSIDE RECORDS SUMMARY | 2024-07-30 14:07 | XMS_ITS | Encounter Summary ---
Author Organization [facility] Address [address] [facility] [place] [address] Care Team Providers Care Esl Instructional Assistant Name Role Phone Molly Alvarado MD Primary Care Provider Avery Hidalgo DO Primary Care Provider [phone] Encounter Details Date Type Department Care Team (Latest Contact Info) Description 06/01/2015 Hospital Outpatient Visit [facility] [address] [place] [id number] Annette Singh MD [address] [facility] [address]L [place] [phone] Discharge Disposition: Home or Self Care Social History Tobacco Use Types Packs/Day Years Used Date Smoking Tobacco: Never Smokeless Tobacco: Never Alcohol Use Standard Drinks/Week Comments Yes 0 (1 standard drink = 0.6 oz pur e alcohol) social - rare Sex and Gender Information Value Date Recorded Sex Assigned at Not on file Gender Identity Female 08/19/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 Report dictated by Jovany Sears M.D. (information services vice president). This report was approved ??by Jovany Sears M.D. ?? on 06/01/2015 11:[address] MATTHEW Shipley MD have personally reviewed and interpreted this [...] disease. Report dictated by Jovany Sears M.D. (information services vice president). This report was approved by Jovayn Sears M.D. on 06/01/2015 11:50AM . Dr. Dr. MATTHEW Shipley MD have personally reviewed and interpreted thisexamination/study. This report was electronically signed by Dr. MATTHEW TAYLOR MD on06/01/2015 12:11 PM . Annette Singh MD DIAGNOSTIC IMAGING O RDERABLES documented in this encounter Visit Diagnoses Diagnosis Encounter for examination of potential donor of organ or tissue Other specified general medical examination documented in this encounter Care Teams Esl Instructional Assistant Relationship Specialty Start Date End Date Molly Alvarado MD PCP - General Family Medicine 12/05/11 08/25/15 Avery Hidalgo DO PCP - General Family Medicine 08/26/15 03/25/20 documented as of this encounter
--- OUTSIDE RECORDS SUMMARY | 2024-07-30 14:07 | XMS_ITS | Encounter Summary ---
Author Organization [facility] Address [address] [address] Care Team Providers Care Chief Marketing Officer Name Role Phone Molly Alvarado MD Primary Care Provider Encounter Details Date Type Department Care Team (Late st Contact Info) Description 11/08/2013 4:45 PM CDT - 11/08/2013 11:59 PM T Hospital Encounter [facility] [address] [place] [address] Tana Sosa, ALUMINUM MOLDING MACHINE OPERATOR-SILVERING DEPARTMENT SUPERVISOR [address] [facility] [address] [address] Discharge Disposition: Home or Self Care Social History Tobacco Use Types Packs/Day Years Used Date Smoking Tobacco: Never Smokeless Tobacco: Never Alcohol Use Standard Drinks/Week Comments Yes 0 (1 standard drink = 0.6 oz pur e alcohol) social - rare Sex and Gender Information Value Date Recorded Sex Assigned at Not on file Gender Identity Female 08/19/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 1 Inhaler 0 11/08/2013 03/13/2014 benzonatate (TESSALON PERLES) 100 MG capsule 1 Cap 3 times daily as needed for Cough for 15 doses. 15 Cap 0 11/08/2013 03/13/2014 famotidine (PEPCID) 40 MG tablet Take 40 mg by mouth once daily. 12/04/2015 levofloxacin (LEVAQUIN) 500 MG tablet 1 Tab once daily for 7 doses. 7 Tab 0 11/08/2013 11/15/2013 norethindrone-ethinyl estradiol (LOESTRIN 1.5/30, 21,) 1.5-30 MG-MCG tabletIndications:Routin e general medical examination at a health care facility Take 1 Tab by mouth once daily. 03/13/2014 documented as of this encounter Plan of Treatment Not on file documented as of this encounter Procedures Procedure Name Priority Date/Time Associated Diagnosis Comments XR CHEST 2VW STAT 11/08/2013 4:49 PM CDT Fever Cough documented in this encounter Results * XR CHEST PA AND LATERAL (11/08/2013 4:49 PM CDT) Anatomical Region Laterality Modality Chest Radiographic Tracy ging 11/08/2013 5:05 PM CDT Impressions 11/08/2013 5:06 PM CDT Left upper lobe infiltrate Narrative 11/08/2013 5:06 PM CDT Chest 2 views. History: Cough and chest congestion and fever Findings: Comparison is made with 03/02/13. The heart is normal is size. There is new patchy infiltrate in the left upper lobe. The right lung is clear. Procedure Note Darshana Clemons MD - 11/08/2013 Chest 2 views. History: Cough and chest congestion and fever Findings: Comparison is made with 03/02/13. The heart is normal is size. There is new patchy infiltrate in the left upper lobe. The right lung is clear. IMPRESSION Left upper lobe infiltrate Tana Sosa ALUMINUM MOLDING MACHINE OPERATOR-SILVERING DEPARTMENT SUPERVISOR DIAGNOSTI C IMAGING ORDERABLES documented in this encounter Visit Diagnoses Diagnosis Fever Fever, unspecified Cough documented in this encounter Care Teams Chief Marketing Officer Relationship Specialty Start Date End Date Molly Alvarado MD PCP - General Family Medicine 12/05/11 08/25/15 documented as of this encounter
--- OUTSIDE RECORDS SUMMARY | 2024-07-30 14:07 | XMS_ITS | Encounter Summary ---
Author Organization [facility] Address [address] [facility] [place] [address] Care Team Providers Care Director Of Materials Name Role Phone Molly Alvarado MD Primary Care Provider Reason for Visit * Reason Comments Anxiety Pain Back Encounter Details Date Type Department Care Team (Late st Contact Info) Description 03/13/2014 9:00 AM CDT Office Visit [facility] Medical [facility] - Family Medicine [address] [place] [address] [place] [id number] Lizzy Nesbitt, ASSESSMENT SERVICES MANAGER-ELECTRIC INSTALLER [address] [facility] [address] [place] [address] Pneumonia (Primary Dx); Back pain; Anxiety attack Social History Tobacco Use Types Packs/Day Years Used Date Smoking Tobacco: Never Smokeless Tobacco: Never Alcohol Use Standard Drinks/Week Comments Yes 0 (1 standard drink = 0.6 oz pur e alcohol) social - rare Sex and Gender Information Value Date Recorded Sex Assigned at Not on file Gender Identity Female 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 Sexual Orientation Not on file documented as of this encounter Last Filed Vital Signs Vital Sign Reading Time Taken Comments Blood Pressure 130/87 03/13/2014 9:09 AM CDT Pulse 77 03/13/2014 9:09 AM CDT Temperature 36.9 ??C (98.5 ??F) 03/13/2014 9:09 AM CD T Respiratory Rate 20 03/13/2014 9:09 AM CDT Oxygen Saturation - - Inhaled Oxygen Concentration - - Weight 40.6 kg (89 lb 9.6 oz) 03/13/2014 9:09 AM CDT Height 156.2 cm (5' 1.5 ) 03/13/2014 9:09 AM CDT Body Mass Index 16.66 03/13/2014 9:09 AM CDT documented in this encounter Patient Instructions * Patient Instructions* Lizzy Nesbitt, ASSESSMENT SERVICES MANAGER-ELECTRIC INSTALLER - 03/13/2014 9:44 AM CDT Generalized Anxiety Disorder GENERAL INFORMATION: What is generalized anxiety disorder? Generalized anxiety disorder (SUSAN) is a condition that causesyou to feel worried or nervous for at least 6 months. The anxiety may be much more severe than the event causing it. You may not be able to do your daily activities because of the anxiety. What causes generalized anxiety disorder? The cause is not known. Usually, SUSAN appears after physical or emotional stress, such as the loss of a loved one. The following increase your risk of SUSAN: ?? You have a close family member with an anxiety disorder. ?? You have learning or memory problems. ?? You have a long-term condition, such as diabetes, depression, drug abuse, or alcoholism. ?? You are or recently delivered your baby. ?? You are a woman. ?? You are 25 years or younger. What are the signs and symptoms of generalized anxiety disorder? You may have symptoms like those of a serious health problem, such as a heart problem. You may be anxious and worried more often than not, and have a hard time controlling worry. You may also have any of the following: ?? Fatigue (very tired) or muscle tightness ?? Shaking, restlessness, or sleep problems ?? Dizziness or headaches ?? Feeling jumpy or easily startled ?? Problems focusing on a task ?? Cold hands ?? Rapid heartbeat or shortness of breath How is generalized anxiety disorder diagnosed? Your caregiver will ask about your symptoms and whenthey began. He will ask what triggers your symptoms and if anxiety limits your daily activities. Hewill also ask about your medical history and if any family members have a similar condition. He mayask about your past and present alcohol or drug use. How is generalized anxiety disorder treated? ?? Cognitive behavioral therapy (CBT): This involves changing your emotions by changing your behavior. Your caregiver may recommend different kinds of CBT. Caregivers may help you learn to handle thoughts that produce anxiety. Exposure or desensitization therapy helps you face a feared object, person, or situation. Relaxation therapy involves deep breathing, muscle relaxation, or music to help you relax. ?? Antidepressants: These relieve the symptoms of anxiety and depression. Other behavior problems may also be treated with antidepressants. ?? Antianxiety medicine: This medicine may be given to decrease anxiety and help you feel calm and relaxed. What are the risks of generalized anxiety disorder? Untreated SUSAN can cause you to develop other problems, such as alcohol or drug abuse, or depression. SUSAN may cause problems with your mood, relationships, and work. You may have thoughts of harming yourself or others. Where can I find more information? ?? An[employer] [place] (ADAA) [address] [place] [address], [address] [place] [address] Phone: Web Address: http://www.adaa.org ?? National [place] of Mental Health ([facility]), Public Information & Communication Branch [address] [place] [address], [address], [facility] [address] [place] [address] Phone: Phone: Web Address: http://www.[facility].nih.gov/ When should I contact my caregiver? Contact your caregiver if: ?? You have new symptoms since your last visit. ?? Your anxiety keeps you from doing your daily activities. ?? You have problems that you think may be caused by the medicine you are taking. ?? Your symptoms get worse or do not get better with treatment. ?? You have questions or concerns about your condition or care. When should I seek immediate care? Seek care immediately or call 911 if: ?? You feel like fainting or are lightheaded or too dizzy to stand up. ?? You feel like hurting yourself or someone else. ?? You have chest pain, tightness, or heaviness that may spread to your shoulders, arms, jaw, neck,or back. CARE AGREEMENT: You have the right to help plan your care. Learn about your health condition and how it may be treated. Discuss treatment options with your caregivers to decide what care you want to receive. You always have the right to refuse treatment. Copyright ?? 2012. [employer]. All rights reserved. Information is for End User's use only andmay not be sold, redistributed or otherwise used for commercial purposes. The above information is an adapted physical education aide only. It is not intended as medical advice for individual conditions or treatments. Talk to your doctor, nurse or pharmacist before following any medical regimen to see if it is safe and effective for you. documented in this encounter Progress Notes * Molly Alvarado MD - 03/18/2014 2:01 PM CDT Reviewed with Lizzy Nesbitt NP. Agree with care plan * Lizzy Nesbitt APRN-CNP - 03/13/2014 9:26 AM CDT SUBJECTIVE: Cata Urena 28 y.o. female is here for: Chief Complaint Patient presents with ??? Anxiety ??? Pain Back HPI: Patient here for left back pain and axiety. States she had pneumonia in November. Describes as a dull ache that is always there. No frequency or urgency or hematuria. Denies SOB. C/o chronic anxiety. Took effexor at age 17--weaned herself off. Reintroduced later and she lost too much weight so taken off. Shakes, hyperventilates--happened at work a couple of weeks ago, attacksincreasing in frequency. Saw counselor 2 years ago. No family hx mental disorder or chemical/alcohol abuse. TSH 1.34 02/2013. Not currently interested in SSRI as she will be trying to get . HISTORY: Allergies Allergen Reactions ??? Tetanus Toxoid Anaphylaxis ??? Reglan [Metoclopramide] Made her insane , got shaky ??? Latex Itching Red and swollen Family and social history reviewed with no changes. Social History Smoking Status: Never Smoker Smokeless Status: Never Used Alcohol Use: Yes Comment: social - rare Drug Use: No Sexual Activity: Yes Partners with: Male Current Outpatient Prescriptions Medication Sig Dispense Refill ??? Estradiol Cypionate (DEPO-ESTRADIOL IM) Inject into muscle. ??? diazepam (VALIUM) 2 MG tablet Take 1 Tab by mouth 3 times daily as needed for Anxiety. 15 Tab 0 ??? famotidine (PEPCID) 40 MG tablet Take 40 mg by mouth once daily. No current facility-administered medications for this visit. No results found for this visit on 03/13/14. ROS: Review of Systems: (negative responses are normal text, positives are highlighted) GENERAL: fever, chills, sweats, weight loss >10, weight gain >10, fatigue EENT Blurred vision, hearing changes, ringing, sinus drainage,congestion, sneezing, ear pain/fullness GI: nausea, vomiting, abdominal pain, constipation, GERD, rectal bleed, diarrhea HEART: chest pain, palpitations LUNGS: shortness of breath, cough, wheezing : nocturia, dysuria, frequency, urgency, hematuria SKIN: rash, itching, dry skin MS: muscle weakness, muscle tenderness, joint pain, back pain NEURO: Headaches, dizziness, confusion, numbness, tingling PSYCH: Insomnia, anxiety, depression OBJECTIVE: BP 130/87 Pulse 77 Temp(Src) 98.5 ??F (Oral) Resp 20 Wt 40.642 kg (89 lb 9.6 oz) BMI 16.66 kg/m2 Body mass index is 16.66 kg/(m^2). Wt Readings from Last 3 Encounters: 03/13/14 40.642 kg (89 lb 9.6 oz) 11/08/13 42.638 kg (94 lb) 04/19/13 42.638 kg (94 lb) BP Readings from Last 3 Encounters: 03/13/14 130/87 11/08/13 121/87 04/19/13 112/78 Physical Exam: General appearance: alert, well appearing, and in no distress. Skin exam - normal coloration and turgor, no rashes, no suspicious skin lesions noted. Eye exam - pupils equal and reactive, extraocular eye movements intact. CVS exam: normal rate, regular rhythm, normal S1, S2, no murmurs, rubs, clicks or gallops. Chest: clear to auscultation, no wheezes, rales or rhonchi, symmetric air entry. Psych: No overt evidence of anxiety, depression, or other mood concerns. Mood & affect appropriate. Neurological exam: alert, oriented, normal speech, no focal findings or movement disorder noted. ASSESSMENT: 1. Pneumonia 2. Back pain PLAN: Orders Placed This Encounter ??? XR CHEST PA AND LATERAL Pneumonia follow up Back pain Standing Status: Future Number of Occurrences: Standing Expiration Date: 03/13/2015 Order Specific Question: Exam to be performed? Answer: Per Radiologist protocol ??? diazepam (VALIUM) 2 MG tablet Sig: Take 1 Tab by mouth 3 times daily as needed for Anxiety. Dispense: 15 Tab Refill: 0 Back pain, s/p pneumonia: cxr Valium low dose prn for anxiety attack Patient Instructions Generalized Anxiety Disorder GENERAL INFORMATION: What is generalized anxiety disorder? Generalized anxiety disorder (SUSAN) is a condition that causesyou to feel worried or nervous for at least 6 months. The anxiety may be much more severe than the event causing it. You may not be able to do your daily activities because of the anxiety. What causes generalized anxiety disorder? The cause is not known. Usually, SUSAN appears after physical or emotional stress, such as the loss of a loved one. The following increase your risk of SUSAN: ?? You have a close family member with an anxiety disorder. ?? You have learning or memory problems. ?? You have a long-term condition, such as diabetes, depression, drug abuse, or alcoholism. ?? You are or recently delivered your baby. ?? You are a woman. ?? You are 25 years or younger. What are the signs and symptoms of generalized anxiety disorder? You may have symptoms like those of a serious health problem, such as a heart problem. You may be anxious and worried more often than not, and have a hard time controlling worry. You may also have any of the following: ?? Fatigue (very tired) or muscle tightness ?? Shaking, restlessness, or sleep problems ?? Dizziness or headaches ?? Feeling jumpy or easily startled ?? Problems focusing on a task ?? Cold hands ?? Rapid heartbeat or shortness of breath How is generalized anxiety disorder diagnosed? Your caregiver will ask about your symptoms and whenthey began. He will ask what triggers your symptoms and if anxiety limits your daily activities. Hewill also ask about your medical history and if any family members have a similar condition. He mayask about your past and present alcohol or drug use. How is generalized anxiety disorder treated? ?? Cognitive behavioral therapy (CBT): This involves changing your emotions by changing your behavior. Your caregiver may recommend different kinds of CBT. Caregivers may help you learn to handle thoughts that produce anxiety. Exposure or desensitization therapy helps you face a feared object, person, or situation. Relaxation therapy involves deep breathing, muscle relaxation, or music to help you relax. ?? Antidepressants: These relieve the symptoms of anxiety and depression. Other behavior problems may also be treated with antidepressants. ?? Antianxiety medicine: This medicine may be given to decrease anxiety and help you feel calm and relaxed. What are the risks of generalized anxiety disorder? Untreated SUSAN can cause you to develop other problems, such as alcohol or drug abuse, or depression. SUSAN may cause problems with your mood, relationships, and work. You may have thoughts of harming yourself or others. Where can I find more information? ?? An[employer] [place] (ADAA) [address] [place] [address], [address] [place] [address] Phone: Web Address: http://www.adaa.org ?? [employer] [place] of Mental Health ([facility]), Public Information & Communication Branch [facility] [place], [address], [facility] [address] [place] [address] Phone: Phone: Web Address: http://www.[facility].gov/ When should I contact my caregiver? Contact your caregiver if: ?? You have new symptoms since your last visit. ?? Your anxiety keeps you from doing your daily activities. ?? You have problems that you think may be caused by the medicine you are taking. ?? Your symptoms get worse or do not get better with treatment. ?? You have questions or concerns about your condition or care. When should I seek immediate care? Seek care immediately or call 911 if: ?? You feel like fainting or are lightheaded or too dizzy to stand up. ?? You feel like hurting yourself or someone else. ?? You have chest pain, tightness, or heaviness that may spread to your shoulders, arms, jaw, neck,or back. CARE AGREEMENT: You have the right to help plan your care. Learn about your health condition and how it may be treated. Discuss treatment options with your caregivers to decide what care you want to receive. You always have the right to refuse treatment. Copyright ?? 2011. [employer]. All rights reserved. Information is for End User's use only andmay not be sold, redistributed or otherwise used for commercial purposes. The above information is an adapted physical education aide only. It is not intended as medical advice for individual conditions or treatments. Talk to your doctor, nurse or pharmacist before following any medical regimen to see if it is safe and effective for you. FOLLOW UP: After hour care instructions given. AVS reviewed with patient. Pt states no further questions. The patient indicates understanding of these issues and agrees with the plan. * Serena Griffin - 03/13/2014 9:09 AM CDT Cata Urena is for back pain and anxiety. documented in this encounter Plan of Treatment Not on file documented as of this encounter Results * XR CHEST PA [...] Coco Santiago on 03/13/2014 11:07 AM Lizzy D Laz ASSESSMENT SERVICES MANAGER-ELECTRIC INSTALLER DIAGNOSTIC SUJATA GING ORDERABLES documented in this encounter Visit Diagnoses Diagnosis Pneumonia- Primary Pneumonia, organism unspecified Back pain Backache, unspecified Anxiety attack Panic disorder without agoraphobia Pneumonia Pneumonia, organism unspecified Back pain Backache, unspecified documented in this encounter Care Teams Director Of Materials Relationship Specialty Start Date End Date Molly Alvarado MD PCP - General Family Medicine 12/05/11 08/25/15 documented as of this encounter
--- OUTSIDE RECORDS SUMMARY | 2024-07-30 14:07 | XMS_ITS | Encounter Summary ---
Author Organization [facility] Address [address] [place] [address] Care Team Providers Care Solder Making Laborer Name Role Phone Molly Alvarado MD Primary Care Provider Avery Hidalgo DO Primary Care Provider [phone] Encounter Details Date Type Department Care Team (Latest Contact Info) Description 06/05/2015 Hospital Outpatient Visit Historic [facility] [address] [place] [id number] Annette Singh MD [address] [facility] [address] [place] [address] Discharge Disposition: Home or Self Care Social History Tobacco Use Types Packs/Day Years Used Date Smoking Tobacco: Never Smokeless Tobacco: Never Alcohol Use Standard Drinks/Week Comments Yes 0 (1 standard drink = 0.6 oz pur e alcohol) social - rare Sex and Gender Information Value Date Recorded Sex Assigned at Not on file Gender Identity Female 08/19/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[employer] Sexual Orientation Not on file documented as of this encounter Plan of Treatment Not on file documented as of this encounter Procedures Procedure Name Priority Date/Time Associated Diagnosis Comments ALBUMIN URINE TIMED Routine 06/05/2015 1 0:56 AM CDT PROTEIN URINE TIMED QUANTITATIVE Routine 06/05/2015 10:56 AM CDT CREATININE BLOOD Routine 06/05/2015 10:5 6 AM CDT CREATININE CLEARANCE URINE TIMED + BLOOD Routine 06/05/2015 10:56 AM CDT CREATININE CLEARANCE URINE TIMED + BLOOD Routine 06/05/2015 10:56 AM CDT documented in this encounter Results * CREATININE CLEARANCE URINE TIMED + BLOOD (06/05/2015 10:56 AM CDT) Creatinine Urine 59 Not Established mg/dL [facility] Creatinine 0.8 0.6 - 1.2 mg/dL [facility] Volume Timed Urine 1,550 mL [facility] Collection Time Timed Urine 24 Hrs [facility] Creatinine Clearance 79 70 - 130 mL/minute/1.73m 2 [facility] Chart BSA 1.41 Avg. BSA = 1.73 m2 m2 [facility] Creatinine Clearance (Corrected for BSA) 97 Not Established mL/minute [facility] Urine specimen (specimen) URINE SPECIMEN OBTAINED BY CLEAN CATCH PROCEDURE / Unknown 06/05/2015 10:56 AM CDT 06/05/2015 1:15 PM CDT Annette Singh MD LAB - URINE CHEMISTR Y ORDERABLES [address] [phone] * CREATININE BLOOD (06/05/2015 10:56 AM CDT) Creatinine 0.8 0.6 - 1.2 mg/dL [facility] eGFR >60 >60 mL/min/1.73 m2 [facility] Blood specimen (specimen) BLOOD SPECIMEN / Unknown 06/05/2015 10:56 AM CDT 06/05/2015 1:15 PM CDT Annette Singh MD LAB - CHEMISTRY ORDE RABLES [address] [phone] * PROTEIN URINE TIMED QUANTITATIVE (06/05/2015 10:56 AM CDT) Protein Urine <7 Not Established mg/dL [facility] Collection Time Timed Urine 24 Hrs [facility] Protein 24 Hour Urine 77 - 197 mg/24 hrs [facility] Comment:Unable to calculate excretion rate because the analyte concentration is outside the instrument measuring range. Volume Timed Urine 1,550 mL [facility] Urine specimen (specimen) URINE SPECIMEN OBTAINED BY CLEAN CATCH PROCEDURE / Unknown 06/05/2015 10:56 AM CDT 06/05/2015 1:15 PM CDT Annette Singh MD LAB - URINE CHEMISTR Y ORDERABLES Performing Organization Address [facility] Co de Phone Number [address] [phone] * ALBUMIN URINE TIMED (06/05/2015 10:56 AM CDT) Albumin Random Urine <5.0 Not Established mcg/mL [facility] Collection Time Timed Urine 24 Hrs [facility] Albumin 24 Hour Urine <30 mg/24 hrs [facility] Comment:Unable to calculate excretion rate because the analyte concentration is outside the instrument measuring range. Volume Timed Urine 1,550 mL [facility] Urine specimen (specimen) URINE SPECIMEN OBTAINED BY CLEAN CATCH PROCEDURE / Unknown 06/05/2015 10:56 AM CDT 06/05/2015 1:15 PM CDT Annette Singh MD LAB - URINE CHEMISTR Y ORDERABLES Performing Organization Address [facility] Co de Phone Number [address] [phone] * CREATININE CLEARANCE URINE TIMED + BLOOD (06/05/2015 10:56 AM CDT) Urine specimen (specimen) URINE SPECIMEN OBTAINED BY CLEAN CATCH PROCEDURE / Unknown 06/05/2015 10:56 AM CDT Narrative [facility] - 06/05/2015 2:45 PM CDT Height (inches)->61 Weight (lbs)->95 The following orders were created for panel order Creatinine clearance. Procedure ? Abnormality ? Status ? --------- ? ------ ? Creatinine (w/eGFR)[[id number]] ? Normal ?Final result ? Creatinine Clearance[[id number]] ?Final result ? Please view results for these tests on the individual orders. Annette Singh MD LAB - URINE CHEMISTR Y ORDERABLES Performing Organization Address [facility] de Phone Number [place] [phone] [address] documented in this encounter Visit Diagnoses Diagnosis Encounter for examination of potential donor of organ or tissue Other specified general medical examination documented in this encounter Care Teams Solder Making Laborer Relationship Specialty Start Date End Date Molly Alvarado MD PCP - General Family Medicine 12/05/11 08/25/15 Avery Hidalgo DO PCP - General Family Medicine 08/26/15 03/25/20 documented as of this encounter
--- OUTSIDE RECORDS SUMMARY | 2024-07-30 14:07 | XMS_ITS | Encounter Summary ---
Author Organization 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 Name Role Phone Molly Alvarado MD Primary Care Provider Avery Hidalgo DO Primary Care Provider Encounter Details Date Type Department Care Team (Latest Contact Info) Description 06/01/2015 Hospital Outpatient Visit [facility] [address] [place] [id number] ProviderBulmaro MD Discharge Disposition: Home or Self Care Social History Tobacco Use Types Packs/Day Years Used Date Smoking Tobacco: Never Smokeless Tobacco: Never Alcohol Use Standard Drinks/Week Comments Yes 0 (1 standard drink = 0.6 oz pur e alcohol) social - rare Sex and Gender Information Value Date Recorded Sex Assigned at Not on file Gender Identity Female 08/19/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 Sexual Orientation Not on file documented as of this encounter Plan of Treatment Not on file documented as of this encounter Procedures Procedure Name Priority Date/Time Associated Diagnosis Comments PTT [facility] Routine 06/01/2015 7:43 AM CDT PT-INR [facility] Routine 06/01/2015 7:43 AM CDT CYTOMEGALOVIRUS AB IGG/IGM RFLXD SOLOMON 06/01/2015 7:43 AM CDT TREPONEMA PALLIDUM AB IGG DONOR Routine 06/01/2015 7:43 AM CDT HIV/HCV/HBV MACIEJ DONOR Routine 06/01/2015 7:43 AM CDT HIV 1/0/2 RFLX TO WB DONOR Routine 06/01/2015 7:43 AM CDT HEPATITIS B SURFACE AG RFLX NEUT DONOR Routine 06/01/2015 7:43 AM CDT CYTOMEGALOVIRUS TOT AB RFLX IGG/IGM DONOR Routine 06/01/2015 7:43 AM CDT HEPATITIS C AB W RFLX VERIFICATION Routine 06/01/2015 7:43 AM CDT QUANTIFERON TB-GOLD (CLIENT INCUBATED) Routine 06/01/2015 7:43 AM CDT URINALYSIS W/MICROSCOPIC NO CULTURE Routine 06/01/2015 7:43 AM CDT REF LAB COMMENT SOLOMON 06/01/2015 7:43 AM CDT HEPATITIS B SURFACE ANTIBODY QUANT Routine 06/01/2015 7:43 AM CDT DRUG ABUSE PANEL 10-20+ETHANOL URINE NO CONFIRM Routine 06/01/2015 7:43 AM CDT URIC ACID BLOOD Routine 06/01/2015 7:43 AM CDT WEST NILE VIRUS ANTIBODY IGG/IGM PANEL Routine 06/01/2015 7:43 AM CDT STRONGYLOIDES ANTIBODY IGG Routine 06/01/2015 7:43 AM CDT EDWIN-MONTOYA VIRUS ANTIBODY TO VCA IGM Routine 06/01/2015 7:43 AM CDT RPR Routine 06/01/2015 7:43 AM CDT EDWIN-MONTOYA VIRUS ANTIBODY TO VCA IGG Routine 06/01/2015 7:43 AM CDT HEMOGLOBIN A1C Routine 06/01/2015 7:43 AM CDT CULTURE URINE Routine 06/01/2015 7:43 AM CDT NICOTINE + METABOLITES BLOOD Routine 06/01/2015 7:43 AM CDT CBC W AUTO DIFFERENTIAL Routine 06/01/20 15 7:43 AM CDT COMPREHENSIVE METABOLIC PANEL Routine 06/01/2015 7:43 AM CDT PHOSPHORUS BLOOD Routine 06/01/2015 7:43 AM CDT HEPATITIS B CORE ANTIBODY TOTAL Routine 06/01/2015 7:43 AM CDT ALCOHOL ETHYL BLOOD Routine 06/01/2015 7 :43 AM CDT HEPATITIS A ANTIBODY Routine 06/01/2015 7:43 AM CDT LIPID PROFILE Routine 06/01/2015 7:43 AM CDT CBC W AUTO DIFFERENTIAL Routine 06/01/20 15 7:43 AM CDT documented in this encounter Results * REF LAB COMMENT (06/01/2015 7:43 AM CDT) Comment Comment [facility] HOLLY Perez ([place]) Comment: Non reactive HCV antibody screen is consistent with no HCV infection, unless recent infection is suspected or other evidence exists to indicate HCV infection. Blood specimen (specimen) 06/01/2015 7:43 AM CDT 06/01/2015 9:18 AM CDT Narrative [facility] [place] ([place]) - 06/02/2015 6:15 AM CDT Performed at: ??01 - [facility] [address], [place], [place] ??[id number] Geophysical Drafter: Erasmo Morris PhD, Phone: ??[phone] Annette Singh MD LAB - CHEMISTRY TIFFANIE WILLS Performing Organization Address [facility] Co de Phone Number [facility]) * NICOTINE + METABOLITES BLOOD (06/01/2015 7:43 AM CDT) Pathologist [facility] Nicotine None Detected ng/mL [facility] ([place]) Comment: Nicotine levels greater than 2.0 are consistent with the use of tobacco or tobacco cessation products. Cotinine None Detected ng/mL [facility] ([facility]) Comment: Cotinine levels greater than 20.0 are consistent with the use of tobacco or tobacco cessation products. Blood specimen (specimen) BLOOD SPECIMEN / Unknown 06/01/2015 7:43 AM CDT 06/01/2015 8:48 AM CDT Narrative [facility] [place]) - 06/07/2015 7:06 PM CDT Performed at: ??01 - [address] ??[id number] Geophysical Drafter: Willi Horne MD, Phone: ??[phone] Annette Singh MD LAB - CHEMISTRY TIFFANIE WILLS Performing Organization Address [facility] Co de Phone Number [facility] R[place] FINN) * (ABNORMAL) CYTOMEGALOVIRUS AB IGG/IGM RFLXD (06/01/2015 7:43 AM CDT) [facility] Cytomegalovirus Antibody IgG 5.50(H) 0.00 - 0.59 U/mL [facility] [place]) Comment: ? Negative ?<0.60 ? Equivocal ?? 0.60 - 0.69 ? Positive ?>0.69 Cytomegalovirus Antibody IgM <30.0 0.0 - 29.9 AU/mL [facility] ([place]) Comment: ?Negative ? <30.0 ?Equivocal ??30.0 - 34.9 ?Positive ? >34.9 A positive result is generally indicative of acute infection, reactivation or persistent IgM production. Blood specimen (specimen) BLOOD SPECIMEN / Unknown 06/01/2015 7:43 AM CDT 06/01/2015 8:59 AM CDT Narrative [facility] [place]) - 06/05/2015 3:21 PM CDT Performed at: ??02 - [address] ??[id number] Geophysical Drafter: Willi Horne MD, Phone: ??[phone] Annette Singh MD LAB - SEROLOGY ORDER SHARON Performing Organization Address City/State/[facility] Co de Phone Number [facility] EKTA [place]) * (ABNORMAL) CYTOMEGALOVIRUS TOT AB RFLX IGG/IGM DONOR (06/01/2015 7:43 AM CDT) Donor Cytomegalovirus Total Antibody Reactive( A) Non Reactive [facility] ([place]) Comment:Test performed with Immucor Capture-CMV IgG and IgM kit. Blood specimen (specimen) BLOOD SPECIMEN / Unknown 06/01/2015 7:43 AM CDT 06/01/2015 8:59 AM CDT Narrative [facility] EK[place]) - 06/05/2015 3:21 PM CDT Performed at: ??01 - [facility] [address] ??[id number] Geophysical Drafter: Andry Ty PhD, Phone: ??[phone] Annette Singh MD LAB - SEROLOGY ORDER SHARON [facility] [place] [employer]) * QUANTIFERON TB-GOLD INC (06/01/2015 7:43 AM CDT) QuantiFERON TB Gold Negative Negative [facility] ([place]) Comment: The specimen received for QuantiFERON testing was incubated by the ordering institution. ??Specific procedures outlined in our Directory of Services and in the package insert for the QuantiFERON Gold (In Tube) test must be followed to enable for proper stimulation of cells for the production of interferon gamma. QuantiFERON Criteria Comment [facility] ([employer]) Comment: To be considered positive a specimen [...] values. QuantiFERON TB Antigen Value 0.13 IU/mL [facility] ([employer]) QuantiFERON Nil Value 0.16 IU/mL [facility] ([employer]) QuantiFERON Mitogen Value >10.00 IU/mL [facility] ([employer]) QFT TB Ag minus Nil Value <0.00 IU/mL [facility] ([employer]) Interpretation Comment [facility]ia [facility] ([employer]) Comment: The QuantiFERON TB Gold (in Tube) [...] AM CDT 06/01/2015 8:47 AM CDT Narrative [facility] ([employer]) - 06/04/2015 6:14 AM CDT Performed at: ??01 - [facility] ??[id number] Geophysical Drafter: Erasmo Morris PhD, Phone: ??[phone] Annette Singh MD LAB - SEROLOGY ORDER SHARON Performing Organization Address [facility] Co de Phone Number [facility] * WEST NILE VIRUS ANTIBODY IGG/IGM PANEL (06/01/2015 7:43 AM CDT) West Nile Virus AB IGG Negative Negative [facility] ([facility]) Comment: No detectable West Nile Virus IgG Antibody. If a recent infection is suspected, another specimen should be submitted for testing within 7-14 days. West Nile Virus AB IGM Negative Negative [facility] ([facility]) Comment: No detectable West Nile Virus IgM Antibody. If a recent infection is suspected, another specimen should be submitted for testing within 7-14 days. Blood specimen (specimen) BLOOD SPECIMEN / Unknown 06/01/2015 7:43 AM CDT 06/01/2015 9:18 AM CDT Narrative [facility]) - 06/03/2015 3:19 PM CDT Performed at: ??01 - [facility] ??[id number] Geophysical Drafter: Willi Horne MD, Phone: ??[phone] Annette Singh MD LAB - CHEMISTRY ORDGeo WILLS Performing Organization Address [facility]/ZIP Co de Phone Number [facility] * CULTURE URINE (06/01/2015 7:43 AM CDT) Culture Urine Less than 10,000 CFU/ML of Normal Urogenital/ Skin Yisel [facility] Comment: Urine specimen (specimen) URINE / Unknown 06/01/2015 7:43 AM CDT 06/01/2015 8:48 AM CDT Narrative [facility] - 06/03/2015 9:08 AM CDT Specimen Type->Urine Annette Singh MD LAB - MICROBIOLOGY O RDERABLES [facility] [address] [phone] * HIV 1/0/2 DONOR (06/01/2015 7:43 AM CDT) Donor HIV-1/O/2 Antibody Negative Negative [facility] ([facility]) Comment:Test performed with Sims Prism HIV O Plus kit. Blood specimen (specimen) BLOOD SPECIMEN / Unknown 06/01/2015 7:43 AM CDT 06/01/2015 9:18 AM CDT Narrative [facility] ([facility]) - 06/03/2015 6:16 AM CDT Performed at: ??01 - [facility] [address] [place] [address] ??[id number] Geophysical Drafter: Andry Ty PhD, Phone: ??[phone] Annette Singh MD LAB - CHEMISTRY TIFFANIE WILLS Performing Organization Address [facility] Co de Phone Number [facility] ([facility]) * HEPATITIS B SURFACE ANTIGEN RFLX DONOR (06/01/2015 7:43 AM CDT) Hepatitis B Virus Surface Antigen Negative Negative [facility] ([facility]) Comment:Test performed with Sims Prism HBsAg kit. Blood specimen (specimen) BLOOD SPECIMEN / Unknown 06/01/2015 7:43 AM CDT 06/01/2015 9:18 AM CDT Narrative [facility] ([facility]) - 06/03/2015 6:16 AM CDT Performed at: ??01 - [employer] [facility] [employer] [address] [place] [address] ??[id number] Geophysical Drafter: Andry Ty PhD, Phone: ??[phone] Authorizing Provider Result Paola Singh MD LAB - CHEMISTRY TIFFANIE WILLS [facility] ([facility]) * STRONGYLOIDES ANTIBODY IGG (06/01/2015 7:43 AM CDT) Pathologist [facility] Strongyloides Antibody IgG 0.01 <=1.49 IV [facility] ([place]) Comment: INTERPRETIVE INFORMATION: Strongyloides Ab, IgG by [...] infection. Test developed and characteristics determined by [employer]. See Compliance Statement D: Polatis.Warrantly/Cloudacc Blood specimen (specimen) BLOOD SPECIMEN / Unknown 06/01/2015 7:43 AM CDT 06/01/2015 9:18 AM CDT Annette Singh MD LAB - SEROLOGY ORDER SHARON [facility] ([place]) * TREPONEMA PALLIDUM AB IGG DONOR (06/01/2015 7:43 AM CDT) Pathologist [facility] Donor Treponema pallidum Antibody IgG Non Reactive Non Reactive [facility] ([facility]) Comment: Test performed with ComCam CAPTIA Syphilis (T. pallidum)-G kit. Blood specimen (specimen) BLOOD SPECIMEN / Unknown 06/01/2015 7:43 AM CDT 06/01/2015 9:18 AM CDT Narrative [facility] ([facility]) - 06/02/2015 7:10 PM CDT Performed at: ??01 - [employer] [address] ??[id number] Geophysical Drafter: Andry Ty PhD, Phone: ??[phone] Annette Singh MD LAB - SEROLOGY ORDER SHARON Performing Organization Address [facility] Co de Phone Number [facility]) * HIV-1/HCV MACIEJ DONOR (06/01/2015 7:43 AM CDT) Pathologist [facility] HIV-1/HCV/HBV MACIEJ Comment Non Reactive [facility] ([facility]) Comment: Nonreactive for HIV-1 RNA ?Nonreactive for HCV RNA ?Nonreactive for HBV DNA Test performed with ProductBio Ultrio Assay kit. Blood specimen (specimen) BLOOD SPECIMEN / Unknown 06/01/2015 7:43 AM CDT 06/01/2015 8:59 AM CDT Narrative [facility]) - 06/02/2015 7:10 PM CDT Performed at: ??01 - [employer] [address] [place] [address] ??[id number] Geophysical Drafter: Andry Ty PhD, Phone: ??[phone] Annette Singh MD LAB - CHEMISTRY ORDE RABJESUS Performing Organization Address City/[facility]/ZIP Co de Phone Number [facility] ([facility]) * (ABNORMAL) EDWIN-MONTOYA VIRUS ANTIBODY TO VCA IGG (06/01/2015 7:43 AM CDT) Pathologist [facility] Edwin-Montoya Virus Antibody To Viral Capsid Antigen IgG 114.0(H) 0.0 - 21.9 U/mL [facility] ([place]) Comment: INTERPRETIVE INFORMATION: Edwin-Montoya Virus Antibody to ?Viral Capsid Antigen, IgG ??17.9 U/mL or less.......Not Detected ??18.0-21.9 U/mL..........Indeterminate - Repeat testing in ?10-14 days may be helpful. ??22.0 U/mL or greater....Detected Interpretive information regarding serologic features of EBV-associated diseases is available at www.Shipping Easy/ebvdx. Blood specimen (specimen) BLOOD SPECIMEN / Unknown 06/01/2015 7:43 AM CDT 06/01/2015 9:18 AM CDT Annette Singh MD LAB - CHEMISTRY TIFFANIE WILLS [facility] ([facility]) * EDWIN-MONTOYA VIRUS ANTIBODY TO VCA IGM (06/01/2015 7:43 AM CDT) Edwin-Montoya VCA Antibody IgM <10.0 0.0 - 43.9 U/mL [facility] ([place]) Comment: INTERPRETIVE INFORMATION: Edwin-Montoya Virus Antibody to ?Viral Capsid Antigen, IgM ??35.9 U/mL or less.......Not Detected ?36.0-43.9 U/mL..........Indeterminate - Repeat testing in ?10-14 days may be helpful. ??44.0 U/mL or greater....Detected Interpretive information regarding serologic features of EBV-associated diseases is available at www.Shipping Easy/ebvdx. Blood specimen (specimen) BLOOD SPECIMEN / Unknown 06/01/2015 7:43 AM CDT 06/01/2015 9:18 AM CDT Annette Singh MD LAB - SEROLOGY ORDER SHARON [facility] ([facility]) * (ABNORMAL) HEPATITIS A ANTIBODY (06/01/2015 7:43 AM CDT) Hepatitis A Virus Antibody Total Positive(A ) Negative [facility] ([facility]) Blood specimen (specimen) 06/01/2015 7:43 AM CDT 06/01/2015 9:18 AM CDT Narrative [facility]) - 06/02/2015 6:15 AM CDT Performed at: ??01 - [address] ??[id number] Geophysical Drafter: Erasmo Morris PhD, Phone: ??[phone] Annette Singh MD LAB - CHEMISTRY TFIFANIE WILLS Performing Organization Address [facility] Co de Phone Number [facility] ([facility]) * HEPATITIS C AB W RFLX VERIFICATION (06/01/2015 7:43 AM CDT) Hepatitis C Antibody <0.1 0.0 - 0.9 s/co ratio [facility] ([facility]) 06/01/2015 7:43 AM CDT 06/01/2015 9:18 AM CDT Narrative [facility]) - 06/02/2015 6:15 AM CDT Performed at: ??[address] ??[id number] Geophysical Drafter: Erasmo Morris PhD, Phone: ??[phone] Annette Singh MD LAB - CHEMISTRY TIFFANIE WILLS Performing Organization Address City/[facility]/ZIP Co de Phone Number [facility] ([facility]) * HEPATITIS B SURFACE ANTIBODY QUANT (06/01/2015 7:43 AM CDT) Pathologist [facility] Hepatitis B Virus Surface Antibody Quantitative 112.6 Immunity>9 .9 mIU/mL [facility] ([facility]) Comment: ??Status of Immunity ? Anti-HBs Level ? Inconsistent with Immunity ? 0.0 - 9.9 Consistent with Immunity ?>9.9 Blood specimen (specimen) BLOOD SPECIMEN / Unknown 06/01/2015 7:43 AM CDT 06/01/2015 9:18 AM CDT Narrative [facility] ([place]) - 06/02/2015 6:15 AM CDT Performed at: ??01 - [address], [place], [place] ??[id number] Geophysical Drafter: Erasmo Morris PhD, Phone: ??[phone] Annette Singh MD LAB - SEROLOGY ORDER SHARON Performing Organization Address City/[facility]/ZIP Co de Phone Number [facility]) * RPR (06/01/2015 7:43 AM CDT) Pathologist [facility] RPR Non-reacti ve Non-reacti ve [facility] Blood specimen (specimen) BLOOD SPECIMEN / Unknown 06/01/2015 7:43 AM CDT 06/01/2015 8:50 AM CDT Annette Singh MD LAB - CHEMISTRY ORDGeo WILLS [address] [phone] * HEMOGLOBIN A1C (06/01/2015 7:43 AM CDT) Hemoglobin A1c 5.1 4.4 - 6.3 % [facility] Estimated Average Glucose 100 mg/dL [facility] Comment: HbA1c Interpretation: Treatment target values recommended by ADA and other clinical organizations should be used to evaluate metabolic control in patients. Treatment Target Values: Normal : < 5.7% Pre-diabetes: 5.7-6.4% Diabetes: Equal to or greater than 6.5% Reference: [place] Diabetes Association Standards of Care in Diabetes -2014 In patients 70 years and older consider HbA1c target range of 7.0-7.5% Reference: ??Diabetes Mellitus in Older People: Position Statement on behalf of the International Association of Gerontology and Geriatrics (IAGG), the Diabetes Working Democrat for Older People (EDWPOP), and the International Task Force of Experts in Diabetes. ??Flynn Rahman et al. J [employer] Medical Directors Association. 2012 Test results diagnostic of diabetes should be repeated for confirmation. The Tosoh G8 assay for the measurement of HbA1c is a National Glycohemoglobin Standardization Program (NGSP)certified method. Results for patients with HbE disease should be interpreted with caution as this hemoglobinopathy has been shown to interfere with the Tosoh G8 assay. Blood specimen (specimen) BLOOD SPECIMEN / Unknown 06/01/2015 7:43 AM CDT 06/01/2015 8:49 AM CDT Annette Singh MD LAB - CHEMISTRY TIFFANIE WILLS Performing Organization Address City/[facility]/ZIP Co de Phone Number [address] [phone] * HEPATITIS B CORE ANTIBODY (06/01/2015 7:43 AM CDT) [facility] HBc Antibody Total Non-reacti ve Non-reacti ve [facility] Blood specimen (specimen) BLOOD SPECIMEN / Unknown 06/01/2015 7:43 AM CDT 06/01/2015 8:50 AM CDT Annette Singh MD LAB - CHEMISTRY TIFFANIE WILLS [address] [phone] * (ABNORMAL) URINALYSIS W/MICROSCOPIC NO CULTURE (06/01/2015 7:43 AM CDT) Color UA Yellow Straw, Yellow, Colorless, Light Yellow [facility] Clarity UA Clear Clear [facility] Specific [place] UA 1.012 1.001 - 1.030 [facility] pH UA 5.0 5.0 - 8.0 [facility] Protein UA Negative <=20 mg/dL [facility] Glucose UA 300(A) Negative mg/dL [facility] Ketone UA Negative Negative mg/dL [facility] Bilirubin UA Negative Negative mg/dL [facility] Blood UA Negative Negative [facility] Nitrite UA Negative Negative [facility] Leukocyte Esterase Moderate(A) Negative [facility] Urobilinogen UA <2.0 <2.0 mg/dL [facility] RBC UA 1 0 - 8 /HPF [facility] WBC UA 6(H) 0 - 2 /HPF [facility] Bacteria UA Occasional Rare, Occasional, None /HPF [facility] Squamous Epithelial Cells UA 1 0 - 1 /HPF [facility] Mucus UA Many(A) None /LPF [facility] Urine specimen (specimen) URINE SPECIMEN OBTAINED BY CLEAN CATCH PROCEDURE / Unknown 06/01/2015 7:43 AM CDT 06/01/2015 8:47 AM CDT Annette Singh MD LAB - URINALYSIS ORD ERABLES [address] [phone] * PTT [facility] (06/01/2015 7:43 AM CDT) APTT 28.6 23.0 - 38.4 Seconds [facility] Comment:Suggested therapeuti c range for full dose I.V. heparin therapy for venous thromboembolism is 66.0-91.0 seconds. Blood specimen (specimen) BLOOD SPECIMEN / Unknown 06/01/2015 7:43 AM CDT 06/01/2015 8:48 AM CDT Narrative [facility] - 06/01/2015 9:11 AM CDT Is patient on Heparin, Argatroban or Dabigatran?->N Annette Singh MD LAB - COAGULATION OR DERABLES Performing Organization Address City/[facility]/ZIP Co de Phone Number [address] [phone] * ALCOHOL ETHYL BLOOD (06/01/2015 7:43 AM CDT) Pathologist [facility] Interpretation Ethanol None Detected None Detected mg/dL [facility] Comment:Ethanol levels less than 10 mg/dL are resulted as None detected . Blood specimen (specimen) BLOOD SPECIMEN / Unknown 06/01/2015 7:43 AM CDT 06/01/2015 8:48 AM CDT Annette Singh MD LAB - CHEMISTRY TIFFANIE WILLS Performing Organization Address [facility] Co de Phone Number [address] [phone] * PHOSPHORUS BLOOD (06/01/2015 7:43 AM CDT) Pathologist [facility] Phosphorus 2.4 2.3 - 4.7 mg/dL [facility] Blood specimen (specimen) BLOOD SPECIMEN / Unknown 06/01/2015 7:43 AM CDT 06/01/2015 8:48 AM CDT Annette Singh MD LAB - CHEMISTRY TIFFANIE WILLS Performing Organization Address [facility] Co de Phone Number [address] [phone] * PT-INR [facility] (06/01/2015 7:43 AM CDT) Pathologist [facility] PT 14.6 12.1 - 14.8 Seconds [facility] INR 1.1 See Comment [facility] Comment: Suggested therapeutic range for low-intensity coumadin therapy for venous thromboembolism prophylaxis is an INR of 2.0-3.0. ??For high risk patients (Mitral Valve Prosthesis, Atrial Fibrillation, history of TIA/stroke), suggested prophylactic therapeutic range is an INR of 2.5-3.5. Blood specimen (specimen) BLOOD SPECIMEN / Unknown 06/01/2015 7:43 AM CDT 06/01/2015 8:48 AM CDT Narrative [facility] - 06/01/2015 9:10 AM CDT Is patient on Heparin, Argatroban or Dabigatran?->N Annette Singh MD LAB - COAGULATION OR DERABLES [address] [phone] * (ABNORMAL) LIPID PROFILE (06/01/2015 7:43 AM CDT) Cholesterol Total 198 <200 mg/dL [facility] HDL 55 >40 mg/dL [facility] Comment: ATP III Classification of HDL Cholesterol: ? <40 mg/dL: ??Considered a major risk factor. ? >60 mg/dL: ??Considered a negative risk factor. ? LDL Calculated 125(H) <100 mg/dL [facility] Comment: ATP III Classification of LDL Cholesterol: ?<100 mg/dL: ??Optimal ? 100 - 129 mg/dL: ??Near Optimal/Above Optimal ? 130 - 159 mg/dL: ??Borderline High ? 160 - 189 mg/dL: ??High ?>190 mg/dL: ??Very High ? Triglycerides 90 <150 mg/dL [facility] Comment: ATP III Classification of Triglycerides: ?<150 mg/dL: ??Normal ? 150 - 199 mg/dL: ??Borderline High ? 200 - 400 mg/dL: ??High ?>500 mg/dL: ??Very High Blood specimen (specimen) BLOOD SPECIMEN / Unknown 06/01/2015 7:43 AM CDT 06/01/2015 8:48 AM CDT Annette Singh MD LAB - CHEMISTRY [facility] [address] [phone] * (ABNORMAL) COMPREHENSIVE METABOLIC PANEL (06/01/2015 7:43 AM CDT) BUN 9 7 - 26 mg/dL [facility] Creatinine 0.8 0.6 - 1.2 mg/dL [facility] Sodium 136 136 - 145 mmol/L [facility] Potassium 3.0(L) 3.5 - 4.5 mmol/L [facility] Chloride 103 98 - 107 mmol/L [facility] CO2 22 22 - 29 mmol/L [facility] Glucose 92 70 - 115 mg/dL [facility] Calcium 9.6 8.4 - 10.2 mg/dL [facility] Protein Total 7.7 6.0 - 8.3 g/dL [facility] Albumin 4.3 3.4 - 5.0 g/dL [facility] Bilirubin Total 0.8 0.2 - 1.2 mg/dL [facility] Alkaline Phosphatase 75 40 - 150 Units/L [facility] ALT 17 0 - 55 Units/L [facility] AST 18 5 - 34 Units/L [facility] Anion Gap 14 8 - 18 [facility] BUN/Creatinine Ratio 11 7 - 23 [facility] Osmolality Calculated 266(L) 270 - 300 mOsm/kg [facility] Albumin/Globulin Ratio 1.3 1.1 - 2.3 [facility] eGFR >60 >60 mL/min/1.7 3 m2 [facility] Blood specimen (specimen) BLOOD SPECIMEN / Unknown 06/01/2015 7:43 AM CDT 06/01/2015 8:48 AM CDT Annette Singh MD LAB - CHEMISTRY [facility] [address] [phone] * URIC ACID BLOOD (06/01/2015 7:43 AM CDT) Uric Acid 5.0 2.6 - 7.2 mg/dL [facility] Blood specimen (specimen) BLOOD SPECIMEN / Unknown 06/01/2015 7:43 AM CDT 06/01/2015 8:48 AM CDT Annette Singh MD LAB - CHEMISTRY [facility] [address] [place] [address], [facility] [phone] * (ABNORMAL) CBC W AUTO DIFFERENTIAL (06/01/2015 7:43 AM CDT) Pathologist [facility] WBC 6.6 3.5 - 10.5 10? 3 /uL [facility] RBC 4.21 3.90 - 5.00 10? 6 /uL [facility] Hemoglobin 12.6 12.0 - 15.5 g/dL [facility] Hematocrit 36.2 35.0 - 45.0 % [facility] MCV 86.0 81.0 - 97.0 fL [facility] MCH 29.9 28.0 - 34.0 pg [facility] MCHC 34.8 32.0 - 36.0 g/dL [facility] Platelet Count 221 150 - 400 10? 3 /uL [facility] RDW-SD 40.1 36.0 - 50.0 fL [facility] RDW-CV 12.7 11.2 - 14.8 % [facility] MPV 11.3 9.3 - 12.8 fL [facility] nRBC Absolute 0.00 0 10? 3 /uL [facility] nRBC Auto 0.0 0 /100 WBC [facility] Neutrophils % 47.6 35.0 - 70.0 % [facility] Lymphocytes % 37.3 19.7 - 55.1 % [facility] Monocytes % 12.1 3.0 - 15.0 % [facility] Eosinophils % 2.7 0.0 - 6.0 % [facility] Basophil % 0.3 0.0 - 1.5 % [facility] Neutrophils Absolute 3.1 1.6 - 7.0 10? 3 /uL [facility] Lymphocyte Absolute 2.4 0.8 - 2.9 10? 3 /uL [facility] Monocytes Absolute 0.79(H) 0.14 - 0.66 10? 3 /uL [facility] Eosinophils Absolute 0.18 0.00 - 0.22 10? 3 /uL [facility] Basophils Absolute 0.02 0.00 - 0.06 10? 3 /uL [facility] Immature Granulocytes % 0.2 0.0 - 1.0 % [facility] Blood specimen (specimen) BLOOD SPECIMEN / Unknown 06/01/2015 7:43 AM CDT 06/01/2015 8:48 AM CDT Annette Singh MD LAB - HEMATOLOGY ORD ERABLES [address] [phone] * DRUG ABUSE PANEL 10-20+ETHANOL URINE NO CONFIRM (06/01/2015 7:43 AM CDT) Amphetamines Screen Urine Negative Negative: < 1000 ng/mL [facility] Barbiturates Screen Urine Negative Negative: < 200 ng/mL [facility] Benzodiazepine Screen Urine Negative Negative: < 200 ng/mL [facility] Opiates Urine Negative Negative: < 300 ng/mL [facility] Cocaine Metabolites Urine Negative Negative: < 300 ng/mL [facility] Phencyclidine Screen Urine Negative Negative: < 25 ng/ml [facility] Cannabinoids Screen Urine Negative Negative: <50 ng/mL [facility] Methadone Screen Urine Negative Negative: < 300 ng/mL [facility] Urine specimen (specimen) URINE / Unknown 06/01/2015 7:43 AM CDT 06/01/2015 8:46 AM CDT Narrative [facility] - 06/01/2015 9:05 AM CDT The Urine Toxicology Screening Panel does not screen for Propoxyphene, Meprobamate, Carisoprodol, Trazodone, vyri-yte-wawtbvq medications and/or volatiles (Acetone, Isopropanol, Methanol or Ethylene Glycol). Ethanol, Salicylate, Acetaminophen, Tricyclic Antidepressants and several therapeutic drugs may be individually assayed in serum or plasma specimen. Toxicology testing by the [facility] is an aid to medical diagnosis and treatment of patients. No documented chain of custody was maintained. Results are intended to be used for clinical purposes only. ? Annette Singh MD LAB - URINE CHEMISTR Y ORDERABLES Performing Organization Address [facility]/State/[facility] Co de Phone Number [address] [phone] * CBC W AUTO DIFFERENTIAL (06/01/2015 7:43 AM CDT) Blood specimen (specimen) BLOOD SPECIMEN / Unknown 06/01/2015 7:43 AM CDT [facility] - 06/01/2015 9:08 AM CDT The following orders were created for panel order CBC W/ DIFFERENTIAL. Procedure ? Abnormality ? Status ? --------- ? ------ ? CBC WITH DIFFERENTIAL[[id number]] ? Abnormal ?Final result ? Please view results for these tests on the individual orders. 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
--- OUTSIDE RECORDS SUMMARY | 2024-07-30 14:07 | XMS_ITS | Encounter Summary ---
Author Organization [facility] Address [address] [place] [address] Care Team Providers Care Ivory Carver Name Role Phone Molly Alvarado MD Primary Care Provider Reason for Visit * Reason Onset Date Comments Medication Request 01/19/2015 Encounter Details Date Type Department Care Team (Late st Contact Info) Description 01/19/2015 Telephone [facility] - Family Medicine [address] [place] [address] [address] [place] [address] Molly Alvarado MD [address] [place] [address] [address] [place] [address] Medication Request Social History Tobacco Use Types Packs/Day Years Used Date Smoking Tobacco: Never Smokeless Tobacco: Never Alcohol Use Standard Drinks/Week Comments Yes 0 (1 standard drink = 0.6 oz pur e alcohol) social - rare Sex and Gender Information Value Date Recorded Sex Assigned at Not on file Gender Identity Female 08/19/2022 7:56 AM [employer] Sexual Orientation Not on file documented as of this encounter Miscellaneous Notes * Telephone Encounter - Jeanie Trujillo - 01/19/2015 11:08 AM CDT Called patient and informed her script has been sent and scheduled her an appointment. * Telephone Encounter - Molly Alvarado MD - 01/19/2015 9:56 AM CDT Script sent but she does need to schedule follow up with me * Telephone Encounter - Jeanie Trujillo - 01/19/2015 9:37 AM CDT Patient requesting refill for Lexapro 10 mg. This is usually prescribed by her psychiatrist Dr. Gelacio Cadet however she is due for appointment and when she called to scheduled she was informed by the hotel receptionist at his office that she must call 2 months before appointment even though patient has always called a couple weeks in advance and has never had a problem. His office was very rude to her and told her they would not even send the doctor a message with her refill request and she will just have to wait until her appointment on February 19. This is obviously very unacceptable and patient should not abruptly stop Lexapro. Patient would like to know if Dr. Alvarado would send her in a prescription this one time until she can get into her psychiatrist. Please advise. documented in this encounter Plan of Treatment Not on file documented as of this encounter Visit Diagnoses Not on filedocumented in this encounter Care Teams Ivory Carver Relationship Specialty Start Date End Date Molly Alvarado MD PCP - General Family Medicine 12/05/11 08/25/15 documented as of this encounter
--- OUTSIDE RECORDS SUMMARY | 2024-07-30 14:07 | XMS_ITS | Encounter Summary ---
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 Father states, She has a lot of pain on her left side and she is very dizzy. Onset around 2099 yesterday and has difficulty urinating Encounter Details Date Type Department Care Team (Late st Contact Info) Description 12/04/2015 10:47 AM CDT - 12/04/2015 2:39 PM CDT Emergency ER at [facility] [address] [place] [id number] Lydia Villaseñor MD [address] [place] [address] Urinary tract infection, site unspecified (Primary Dx); SOB (shortness of breath); Dizziness; Abdominal pain, left upper quadrant Discharge Disposition: Home or Self Care Social History Tobacco Use Types Packs/Day Years Used Date Smoking Tobacco: Never Smokeless Tobacco: Never Alcohol Use Standard Drinks/Week Comments Yes 0 (1 standard drink = 0.6 oz pur e alcohol) social - rare Sex and Gender Information Value Date Recorded Sex Assigned at Not on file Gender Identity Female 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 Sexual Orientation Not on file documented as of this encounter Last Filed Vital Signs Vital Sign Reading Time Taken Comments Blood Pressure 104/64 12/04/2015 2:00 PM CDT Pulse 97 12/04/2015 2:00 PM CDT Temperature 37.1 ??C (98.7 ??F) 12/04/2015 2:38 PM CD T Respiratory Rate 18 12/04/2015 2:00 PM CDT Oxygen Saturation 98% 12/04/2015 2:00 PM CDT Inhaled Oxygen Concentration - - Weight 40.8 kg (90 lb) 12/04/2015 10:25 AM CDT Height 154.9 cm (5' 1 ) 12/04/2015 10:25 AM CDT Body Mass Index 17.01 12/04/2015 10:25 AM CDT documented in this encounter Discharge Instructions * Discharge Instructions* Lydia Villaseñor MD - 12/04/2015 2:22 PM CDT Images from the original note were not included. Urinary Tract Infection A urinary tract infection (UTI) can occur any place along the urinary tract. The tract includes thekidneys, ureters, bladder, and urethra. A type of germ called bacteria often causes a UTI. UTIs areoften helped with antibiotic medicine. HOME CARE ?? If given, take antibiotics as told by your doctor. Finish them even if you start to feel better. ?? Drink enough fluids to keep your pee (urine) clear or pale yellow. ?? Avoid tea, drinks with caffeine, and bubbly (carbonated) drinks. ?? Pee often. Avoid holding your pee in for a long time. ?? Pee before and after having sex (intercourse). ?? Wipe from front to back after you poop (bowel movement) if you are a woman. Use each tissue onlyonce. GET HELP RIGHT AWAY IF: ?? You have back pain. ?? You have lower belly (abdominal) pain. ?? You have chills. ?? You feel sick to your stomach (nauseous). ?? You throw up (vomit). ?? Your burning or discomfort with peeing does not go away. ?? You have a fever. ?? Your symptoms are not better in 3 days. MAKE SURE YOU: ?? Understand these instructions. ?? Will watch your condition. ?? Will get help right away if you are not doing well or get worse. Document Released: 01/16/2009 Document Revised: 04/24/2013 Document Reviewed: 02/28/2013 ExitCare?? Patient Information ??2014 IBUonline. Shortness of Breath Shortness of breath means you have trouble breathing. Shortness of breath needs medical care right away. HOME CARE ?? Do not smoke. ?? Avoid being around chemicals or things (paint fumes, dust) that may bother your breathing. ?? Rest as needed. Slowly begin your normal activities. ?? Only take medicines as told by your doctor. ?? Keep all doctor visits as told. GET HELP RIGHT AWAY IF: ?? Your shortness of breath gets worse. ?? You feel lightheaded, pass out (faint), or have a cough that is not helped by medicine. ?? You cough up blood. ?? You have pain with breathing. ?? You have pain in your chest, arms, shoulders, or belly (abdomen). ?? You have a fever. ?? You cannot walk up stairs or exercise the way you normally do. ?? You do not get better in the time expected. ?? You have a hard time doing normal activities even with rest. ?? You have problems with your medicines. ?? You have any new symptoms. MAKE SURE YOU: ?? Understand these instructions. ?? Will watch your condition. ?? Will get help right away if you are not doing well or get worse. Document Released: 01/16/2009 Document Revised: 01/29/2013 Document Reviewed: 10/15/2012 ExitCare?? Patient Information ??2014 IBUonline. Near-Syncope Near-syncope (commonly known as near fainting) is sudden weakness, dizziness, or feeling like you might pass out. This can happen when getting up or while standing for a long time. It is caused by a sudden decrease in blood flow to the brain, which can occur for various reasons. Most of the reasonsare not serious. HOME CARE Watch your condition for any changes. ?? Have someone stay with you until you feel stable. ?? If you feel like you are going to pass out: 1. Lie down right away. 2. Prop your feet up if you can. 3. Breathe deeply and steadily. 4. Move only when the feeling has gone away. Most of the time, this feeling lasts only a few minutes. You may feel tired for several hours. ?? Drink enough fluids to keep your pee (urine) clear or pale yellow. ?? If you are taking blood pressure or heart medicine, stand up slowly. ?? Follow up with your doctor as told. GET HELP RIGHT AWAY IF: ?? You have a severe headache. ?? You have unusual pain in the chest, belly (abdomen), or back. ?? You have bleeding from the mouth or butt (rectum), or you have black or tarry poop (stool). ?? You feel your heart beat differently than normal, or you have a very fast pulse. ?? You pass out, or you twitch and shake when you pass out. ?? You pass out when sitting or lying down. ?? You feel confused. ?? You have trouble walking. ?? You are weak. ?? You have vision problems. MAKE SURE YOU: ?? Understand these instructions. ?? Will watch your condition. ?? Will get help right away if you are not doing well or get worse. Document Released: 01/16/2009 Document Revised: 08/05/2014 Document Reviewed: 01/03/2014 ExitCare?? Patient Information ??2015 IBUonline. This information is not intended to replace advice given to you by your health care provider. Make sure you discuss any questions you have with your health care provider. Fever, Adult A fever is a temperature of 100.4?? F (38?? C) or above. HOME CARE ?? Take fever medicine as told by your doctor. Do not take aspirin for fever if you are younger than 19 years of age. ?? If you are given antibiotic medicine, take it as told. Finish the medicine even if you start to feel better. ?? Rest. ?? Drink enough fluids to keep your pee (urine) clear or pale yellow. Do not drink alcohol. ?? Take a bath or shower with room temperature water. Do not use ice water or alcohol sponge baths. ?? Wear lightweight, loose clothes. GET HELP RIGHT AWAY IF: ?? You are short of breath or have trouble breathing. ?? You are very weak. ?? You are dizzy or you pass out (faint). ?? You are very thirsty or are making little or no urine. ?? You have new pain. ?? You throw up (vomit) or have watery poop (diarrhea). ?? You keep throwing up or having watery poop for more than 1 to 2 days. ?? You have a stiff neck or light bothers your eyes. ?? You have a skin rash. ?? You have a fever or problems (symptoms) that last for more than 2 to 3 days. ?? You have a fever and your problems quickly get worse. ?? You keep throwing up the fluids you drink. ?? You do not feel better after 3 days. ?? You have new problems. MAKE SURE YOU: ?? Understand these instructions. ?? Will watch your condition. ?? Will get help right away if you are not doing well or get worse. Document Released: 05/09/2009 Document Revised: 10/22/2012 Document Reviewed: 05/31/2012 ExitCare?? Patient Information ??2014 IBUonline. documented in this encounter Medications at Time of Discharge Medication Sig Dispensed Refills Start Date End Date clonazePAM (KLONOPIN) 0.5 MG tablet Take 1 (one) tablet by mouth 2 times daily DULoxetine (CYMBALTA) 60 MG capsule Take 1 (one) capsule by mouth once daily 5 11/13/2015 ciprofloxacin (CIPRO) 500 MG tablet Take 1 Tab by mouth 2 times daily for 7 days 14 Tab 0 12/04/2015 12/11/2015 escitalopram (LEXAPRO) 10 MG tablet Take 1 Tab by mouth once daily. 30 Tab 0 01/19/2015 06/22/2016 documented as of this encounter ED Notes * Lydia Villaseñor MD - 12/04/2015 10:50 AM CDT Provider contact with the patient: 12/04/2015 10:50 Cata Urena [id number] [facility] EMERGENCY DEPARTMENT History Chief Complaint Patient presents with ??? Pain Back c/o mid left back pain. Father states, She has a lot of pain on her left side and she is very dizzy. Onset around 2100 yesterday and has difficulty urinating HPI Comments: Cata Urena is a 30 y.o. female presenting to the ED with a chief complaint of back pain. The patient relates that 5 days prior to arrival she started experiencing mid left back painand left-sided pain. She describes her left-sided pain as a constant throbbing pain that is exacerbated with movement and deep breathing. She admits to experiencing fever and chills, myalgias, urinary difficulty, decreased PO intake, myalgias and dizziness that started last night. Denies any nausea, vomiting, diarrhea and sore throat. She states that the last time she had food and liquids was last night when she took a Tylenol and Ibuprofen. The patient has a past medical history of anxiety, dep ression and vaginal vestibulitis. Family history of kidney stones. PCP: Avery Hidalgo, Pain Back Primary symptoms include back pain.The history is provided by the patient and parent. This is a newproblem. The current episode started more than 2 days ago. The problem occurs constantly. The problem has not changed since onset.The pain is associated with no known injury. The pain is present in the lower back. The pain is at a severity of 6/10. The pain is moderate. Nothing relieves the symptoms. There has been a fever, weight loss and abdominal pain. There has been no chest pain, no headaches and no dysuria.She has tried nothing for the symptoms. Past Medical History Diagnosis Date ??? Generalized anxiety disorder ??? Depressive disorder, not elsewhere classified ??? Vaginal vestibulitis Past Surgical History Procedure Laterality Date ??? section 04/03/2011 ??? [place] tooth extraction ??? 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 Smoking status: Never Smoker ??? Smokeless tobacco: Never Used ??? Alcohol Use: Yes Comment: social - rare ??? Drug Use: No ??? Sexual Activity: Partners: Male Other Topics Concern ??? Not on file Social History Narrative Merged History Encounter Review of Systems Review of Systems Constitutional: Positive for fever, chills, weight loss and malaise/fatigue. Decreased PO intake. HENT: Negative for sore throat. Eyes: Negative for blurred vision and redness. Respiratory: Negative for shortness of breath. Cardiovascular: Negative for chest pain. Gastrointestinal: Positive for abdominal pain. Negative for nausea, vomiting, diarrhea and melena. Genitourinary: Positive for flank pain. Negative for dysuria, urgency, frequency and hematuria. Musculoskeletal: Positive for myalgias and back pain. Skin: Negative for rash. Neurological: Positive for dizziness. Negative for headaches. Endo/Heme/Allergies: Negative. Psychiatric/Behavioral: The patient is not nervous/anxious. All other systems reviewed and are negative. Physical Exam BP 118/69 mmHg Pulse 109 Temp(Src) 100.4 ??F Resp 18 Ht 1.549 m (5' 1 ) Wt 40.824 kg (90 lb) BMI 17.01 kg/m2 SpO2 98% BP 104/64 mmHg Pulse 97 Temp(Src) 98.7 ??F Resp 18 Wt 40.824 kg (90 lb) BMI 17.01 kg/m2 Physical Exam Constitutional: She is oriented to person, place, and time. Vital signs are normal. She appears well-developed and well-nourished. No distress. Febrile to touch HENT: Head: Normocephalic and atraumatic. Nose: Nose normal. Mouth/Throat: Uvula is midline and mucous membranes are normal. Posterior oropharyngeal erythema present. Eyes: Conjunctivae and EOM are normal. Pupils are equal, round, and reactive to light. Neck: Normal range of motion. Neck supple. No JVD present. Muscular tenderness present. No rigidity. Normal range of motion present. No Brudzinski's sign and no Kernig's sign noted. Cardiovascular: Normal rate, regular rhythm, normal heart sounds and normal pulses. Pulmonary/Chest: Effort normal and breath sounds normal. No respiratory distress. She exhibits no tenderness. Abdominal: Soft. Bowel sounds are normal. She exhibits no distension. There is tenderness in the right upper quadrant and epigastric area. There is CVA tenderness (left). There is no rigidity, no rebound and no guarding. Left sided CVA tenderness. Denies left sided tenderness. Musculoskeletal: Normal range of motion. She exhibits no edema or tenderness. Neurological: She is alert and oriented to person, place, and time. She has normal strength. No cranial nerve deficit or sensory deficit. She displays a negative Romberg sign. GCS eye subscore is 4. GCS verbal subscore is 5. GCS motor subscore is 6. Skin: Skin is warm, dry and intact. No rash noted. She is not diaphoretic. Psychiatric: She has a normal mood and affect. Her speech is normal and behavior is normal. Judgment and thought content normal. Cognition and memory are normal. Nursing note and vitals reviewed. Medications Current Outpatient Prescriptions Medication Sig Dispense Refill ??? ciprofloxacin (CIPRO) 500 MG tablet Take 1 Tab by mouth 2 times daily for 7 days 14 Tab 0 ??? clonazePAM (KLONOPIN) 0.5 MG tablet Take 0.5 mg by mouth 2 times daily ??? escitalopram (LEXAPRO) 10 MG tablet Take 1 Tab by mouth once daily. (Patient taking differently: Take 10 mg by mouth once daily Reasons: patient takes 10mg in the AM and 5mg in the PM) 30 Tab 0 Procedures Procedures ECG Interpretation Date/Time: 12/04/2015 12:22 PM Interpreted by ED provider Previous ECG: no previous ECG available Rhythm: sinus rhythm Ectopy: none Rate: normal BPM: 99 Conduction: conduction normal T Waves: T waves normal Clinical impression: normal ECG ECG Rhythm Interpretation Lab Interpretation Oxygen Saturation Interpretation The oxygen saturation level is: 98%. The patient was on Room Air for the saturation measurement. Measurement frequency: Spot Check. Oxygen saturation interpretation is Normal. Hospital Encounter on 12/04/15 URINALYSIS ROUTINE W/REFLEX TO CULTURE Result Value Ref Range Color UA Yellow Straw, Yellow, Dark Yellow Clarity UA Clear Specific [place]ong UA 1.014 1.005-1.030 pH UA 8.5 (H) 5.0-8.0 pH Protein UA Negative Negative Blood UA Negative Negative Leukocyte UA Trace (Abnormal) Negative Nitrite UA Negative Negative Glucose UA Negative Negative Ketone UA Negative Negative Bili UA Negative Negative Urobilinogen UA 0.2 0.1-1.0 EU/dL WBC UA Auto 0-2 0-2, 2-5 # /hpf RBC UA Auto 2-5 0-2, 2-5 # /hpf Epithelial Cell UA Auto 2-5 0-2, 2-5 # /hpf Bacteria UA Auto 1+ (Abnormal) None seen Reflex Status Culture to follow CBC W AUTO DIFFERENTIAL Result Value Ref Range WBC 12.5 (H) 4.4-10.7 x10E9/L WBC Corrected x10E9/L RBC 4.47 3.80-5.20 x10E12/L Hgb 13.3 12.0-15.6 gm/dL HCT 37.7 35.9-45.5 % MCV 84.3 80.7-98.3 fl MCH 29.8 26.7-34.0 pg MCHC 35.3 30.8-35.9 gm/dL Plt Ct 232 153-416 x10E9/L RDW-CV 12.3 12.1-14.9 % MPV 10.9 9.4-12.9 fl Neutro 84.9 (H) 44.0-73.0 % Lymph 8.8 (L) 20.0-43.0 % [place] 5.3 5.0-13.0 % Eos 0.4 0.0-6.0 % Baso 0.2 0.0-2.0 % Immature Grans 0.4 0-1 % Neutro Abs 10.60 (H) 2.01-7.14 x10E9/L Lymph Abs 1.10 1.07-3.94 x10E9/L [place] Abs 0.66 0.26-1.07 x10E9/L Eosin Abs 0.05 0-0.47 x10E9/L Baso Abs 0.03 0-0.08 x10E9/L Immature Grans (Abs) 0.05 0.00-0.06 x10E9/L NRBC Auto 0 /100 WBC COMPREHENSIVE METABOLIC PANEL Result Value Ref Range Glucose 110 (H) 74-106 mg/dL Sodium 139 136-145 mmol/L Potassium 3.4 (L) 3.5-5.1 mmol/L Chloride 108 (H) 98-107 mmol/L CO2 23 22-31 mmol/L Calcium 8.6 8.5-10.1 mg/dL Anion Gap 8 5-20 mmol/L BUN 9 7-21 mg/dL Creatinine 0.82 0.50-1.30 mg/dL Alk Phos 107 38-126 U/L ALT/SGPT 17 12-78 U/L AST/SGOT 13 5-40 U/L Protein Total 7.6 6.4-8.2 gm/dL Albumin 3.9 3.4-5.0 gm/dL Bili Total 0.4 0.2-1.0 mg/dL eGFR MDRD >60 >60 mL/min/1.73m2 eGFR MDRD AFR AMR >60 >60 mL/min/1.73m2 MONONUCLEOSIS SCREEN Result Value Ref Range [place] Test Negative Negative HCG URINE QUALITATIVE - POINT OF CARE (IP) Result Value Ref Range HCG Qual Urine Negative Negative QC Verified Yes Yes CT ABDOMEN AND PELVIS NON IV CONTRAST Final Result No evidence of renal calculus or obstruction XR CHEST 1VW PORTABLE Final Result No acute process WELLS Score Progress Notes 10:51 AM: Initial plan for diagnostic studies including: Lab Work, XR Chest, EKG. Will give IV Fluids, Tylenol. Plan for reassessment. 12:39 PM: Reviewed with the patient her lab findings, which show a UTI. XR Chest is negative. Will order CT Abdomen/Pelvis. Will give Rocephin and Toradol. 2:20 PM: Reviewed the imaging findings with the patient, which resulted as negative. The patient will be discharged home with medications to treat her UTI and she will follow up with her PCP. She is in agreement with the current treatment plan at this time. ED Course Medical Decision Making I have reviewed the: Previous Chart, Nursing Notes and Vitals. I have interpreted the following results: Labs, 12 Lead EKG, X-Ray, CT Scans and Oxygen Saturation. I have discussed the case with Family/Caregiver (Father). Orders Placed This Encounter ??? CULTURE URINE ??? XR CHEST 1VW PORTABLE ??? CT ABDOMEN AND PELVIS NON IV CONTRAST ??? URINALYSIS ROUTINE W/REFLEX TO CULTURE ??? CBC W AUTO DIFFERENTIAL ??? COMPREHENSIVE METABOLIC PANEL ??? MONONUCLEOSIS SCREEN ??? HCG URINE QUALITATIVE - POINT OF CARE (IP) ??? EKG 12-LEAD ??? DISCONTD: 0.9% NaCl injection 1-10 mL ??? acetaminophen (TYLENOL) tablet ADS Med ??? 0.9% NaCl infusion ADS Med ??? DISCONTD: 0.9% NaCl infusion ??? acetaminophen (TYLENOL) tablet 650 mg ??? ketorolac (TORADOL) injection 15 mg ??? DISCONTD: cefTRIAXone (ROCEPHIN) IVPB 1 g ??? ciprofloxacin (CIPRO) 500 MG tablet Disposition: Discharged Clinical Impression: Encounter Diagnoses Name Primary? SOB (shortness of breath) ??? Dizziness ??? Abdominal pain, left upper quadrant ??? Urinary tract infection, site unspecified Yes New Medications at discharge: Discharge Medication List as of 12/04/2015 2:23 PM START taking these medications Details ciprofloxacin (CIPRO) 500 MG tablet Disp-14 Tab, R-0, Take 1 Tab by mouth 2 times daily for 7 days,Print I have advised that the patient follow-up with: Avery Hidalgo DO [address] [address] In 1 week [facility] Emergency Department [address] [facility] [id number] If symptoms worsen I have reviewed the information recorded by the scribe and agree with its accuracy and contents--Dr. Villaseñor 12/04/2015 Transcribed by Carolyn Giang--acting scribe on behalf of Dr. Villaseñor 12/04/2015 documented in this encounter Plan of Treatment Not on file documented as of this encounter Procedures Procedure Name Priority Date/Time Associated Diagnosis Comments CARDIAC EKG ORDER 12/07/2015 9:[address] ABDOMEN PELVIS WO CONTRAST STAT 12/04/2015 1:38 PM CDT SOB (shortness of breath) Dizziness Abdominal pain, left upper quadrant MONONUCLEOSIS SCREEN STAT 12/04/2015 12:57 PM CDT EKG 12-LEAD STAT 12/04/2015 12:22 PM CDT Dizziness HCG URINE QUALITATIVE - POINT OF CARE STAT 12/04/2015 12:16 PM CDT URINALYSIS REFLEX MICROSCOPIC REFLEX CULTURE STAT 12/04/2015 12:04 PM CDT CULTURE URINE STAT 12/04/2015 12:04 PM CDT XR CHEST 1VW PORTABLE STAT 12/04/2015 12:02 PM CDT SOB (shortness of breath) CBC W AUTO DIFFERENTIAL STAT 12/04/2015 11:38 AM CDT COMPREHENSIVE METABOLIC PANEL STAT 12/04/2015 11:38 AM CDT documented in this encounter Results * CARDIAC EKG ORDER (12/07/2015 9:03 PM [...] symmetric. No suspicious osseous lesion. Procedure Note Cherelle Mancera MD - 12/04/2015 CT ABDOMEN AND [...] MONONUCLEOSIS SCREEN (12/04/2015 12:57 PM CDT) Pathologist [facility] [place] Mononucleosis Screen Negative Negative 12/04/2015 1:20 PM CDT [facility] Blood BLOOD SPECIMEN / Unknown 12/04/2015 12:57 PM CDT 12/04/2015 1:05 PM CDT Lydia Villaseñor MD LAB - CHEMISTRY TIFFANIE RALPHJESUS Performing Organization Address [facility] Co de Phone Number [facility] [address] [place] [address] * EKG 12-LEAD (12/04/2015 12:22 PM CDT) Ventricular Rate 99 BPM [facility] Atrial Rate 99 BPM [facility] P-R Interval 114 ms [facility] QRS Duration ms 94 ms [facility] Q-T Interval ms 340 ms [facility] QTC Calculation (Bezet) 436 ms [facility] Calculated P [place] 70 degrees [facility] Calculated R [place] 70 degrees [facility] Calculated T [place] 64 degrees [facility] Interpretation EKG Normal sinus rhythm RSR' or QR pattern in V1 suggests right ventricular conduction delay When compared with ECG of 02-MAR-2013 19:44, No significant change was found Confirmed by Solomon Lopez ([id number]) on 12/06/2015 10:48:05 AM [facility] M[facility] 12/04/2015 12:2 2 PM CDT 12/06/2015 10:48 AM CDT Lydia Villaseñor MD ECG ORDERABLES Performing Organization Address City/[facility]/ZIP Co de Phone Number [facility] * HCG URINE QUALITATIVE - POINT OF CARE (IP) (12/04/2015 12:16 PM CDT) HCG Qual Urine Negative Negative [facility] POCT TESTING QC Verified Yes Yes [facility] POC T TESTING Urine specimen (specimen) URINE / Unknown 12/04/2015 12:16 PM CDT Lydia Villaseñor MD LAB - POINT OF CARE ORDERABLES [facility] POCT TESTING [address] [place], [place] [address] * CULTURE URINE (12/04/2015 12:04 PM CDT) Culture <10,000 CFU/mL urogenital colton KERVIN 12/06/2015 7:38 AM CDT [facility] Urine URINE SPECIMEN OBTAINED BY CLEAN CATCH PROCEDURE / Unknown 12/04/2015 12:04 PM CDT 12/04/2015 12:10 PM CDT Lydia Villaseñor MD LAB - MICROBIOLOGY O RDERABLES [facility] [address] [place] [id number] [place] [address] * (ABNORMAL) URINALYSIS ROUTINE W/REFLEX TO CULTURE (12/04/2015 12:04 PM CDT) Color UA Yellow Straw, Yellow, Dark Yellow 12/04/2015 12:19 PM CDT [facility] Clarity UA Clear 12/04/2015 12:19 PM CDT [facility] Specific [place] UA 1.014 1.005 - 1.030 12/04/2015 12:19 PM CDT [facility] pH UA 8.5(H) 5.0 - 8.0 pH 12/04/2015 12:19 PM CDT [facility] Protein UA Negative Negative 12/04/2015 12:19 PM CDT [facility] Blood UA Negative Negative 12/04/2015 12:19 PM CDT [facility] Leukocyte UA Trace(A) Negative 12/04/2015 12:19 PM CDT [facility] Nitrite UA Negative Negative 12/04/2015 12:19 PM CDT [facility] Glucose UA Negative Negative 12/04/2015 12:19 PM CDT [facility] Ketone UA Negative Negative 12/04/2015 12:19 PM CDT [facility] Bilirubin UA Negative Negative 12/04/2015 12:19 PM CDT [facility] Urobilinogen UA 0.2 0.1 - 1.0 EU/dL 12/04/2015 12:19 PM CDT [facility] WBC UA Auto 0-2 0-2, 2-5 # /hpf 12/04/2015 12:19 PM CDT [facility] RBC UA Auto 2-5 0-2, 2-5 # /hpf 12/04/2015 12:19 PM CDT [facility] Epithelial Cell UA Auto 2-5 0-2, 2-5 # /hpf 12/04/2015 12:19 PM CDT [facility] Bacteria UA Auto 1+(A) None seen 12/04/2015 12:19 PM CDT [facility] Reflex Status Culture to follow 12/04/2015 12:19 PM T [facility] Urine URINE SPECIMEN OBTAINED BY CLEAN CATCH PROCEDURE / Unknown 12/04/2015 12:04 PM CDT 12/04/2015 12:10 PM CDT Lydia Villaseñor MD LAB - URINALYSIS ORD ERABLES [facility] [address] [place] [address] * XR CHEST 1VW PORTABLE (12/04/2015 12:02 [...] Villaseñor MD DIAGNOSTIC IMAGING O RDERABLES * (ABNORMAL) COMPREHENSIVE METABOLIC PANEL (12/04/2015 11:38 AM T) Glucose 110(H) 74 - 106 mg/dL 12/04/2015 12:05 PM [facility] Sodium 139 136 - 145 mmol/L 12/04/2015 12:05 PM [facility] Potassium 3.4(L) 3.5 - 5.1 mmol/L 12/04/2015 12:05 PM [facility] Chloride 108(H) 98 - 107 mmol/L 12/04/2015 12:05 PM [facility] CO2 23 22 - 31 mmol/L 12/04/2015 12:05 PM [facility] Calcium 8.6 8.5 - 10.1 mg/dL 12/04/2015 12:05 PM [facility] Anion Gap 8 5 - 20 mmol/L 12/04/2015 12:05 PM [facility] BUN 9 7 - 21 mg/dL 12/04/2015 12:05 PM [facility] Creatinine 0.82 0.50 - 1.30 mg/dL 12/04/2015 12:05 PM [facility] Alkaline Phosphatase 107 38 - 126 U/L 12/04/2015 12:05 PM [facility] ALT 17 12 - 78 U/L 12/04/2015 12:05 PM [facility] AST 13 5 - 40 U/L 12/04/2015 12:05 PM [facility] Protein Total 7.6 6.4 - 8.2 gm/dL 12/04/2015 12:05 PM [facility] Albumin 3.9 3.4 - 5.0 gm/dL 12/04/2015 12:05 PM [facility] Bilirubin Total 0.4 0.2 - 1.0 mg/dL 12/04/2015 12:05 PM [facility] eGFR by MDRD >60 >60 mL/min/1.7 3m2 12/04/2015 12:05 PM [facility] eGFR by MDRD >60 >60 mL/min/1.7 3m2 12/04/2015 12:05 PM CDT [facility] Blood BLOOD SPECIMEN / Unknown 12/04/2015 11:38 AM CDT 12/04/2015 11:47 AM CDT Lydia Villaseñor MD LAB - CHEMISTRY TIFFANIE WILLS [facility] Organization Address City/State/ZIP Co de Phone Number [facility] [address] [place] [address] * (ABNORMAL) CBC W AUTO DIFFERENTIAL (12/04/2015 11:38 AM CDT) WBC 12.5(H) 4.4 - 10.7 x10E9/L 12/04/2015 11:51 AM CDT [facility] WBC Corrected x10E9/L 12/04/2015 11:51 AM CDT [facility] RBC 4.47 3.80 - 5.20 x10E12/L 12/04/2015 11:51 AM CDT [facility] Hemoglobin 13.3 12.0 - 15.6 gm/dL 12/04/2015 11:51 AM CDT [facility] Hematocrit 37.7 35.9 - 45.5 % 12/04/2015 11:51 AM CDT [facility] MCV 84.3 80.7 - 98.3 fl 12/04/2015 11:51 AM CDT [facility] MCH 29.8 26.7 - 34.0 pg 12/04/2015 11:51 AM CDT [facility] MCHC 35.3 30.8 - 35.9 gm/dL 12/04/2015 11:51 AM CDT [facility] Platelet Count 232 153 - 416 x10E9/L 12/04/2015 11:51 AM CDT [facility] RDW-CV 12.3 12.1 - 14.9 % 12/04/2015 11:51 AM CDT [facility] MPV 10.9 9.4 - 12.9 fl 12/04/2015 11:51 AM CDT [facility] Neutrophils % 84.9(H) 44.0 - 73.0 % 12/04/2015 11:51 AM CDT [facility] Lymphocytes % 8.8(L) 20.0 - 43.0 % 12/04/2015 11:51 AM CDT [facility] Monocytes % 5.3 5.0 - 13.0 % 12/04/2015 11:51 AM CDT [facility] Eosinophils % 0.4 0.0 - 6.0 % 12/04/2015 11:51 AM CDT [facility] Basophils % 0.2 0.0 - 2.0 % 12/04/2015 11:51 AM CDT [facility] Immature Granulocytes 0.4 0 - 1 % 12/04/2015 11:51 AM CDT [facility] Neutrophil Absolute 10.60(H) 2.01 - 7.14 x10E9/L 12/04/2015 11:51 AM CDT [facility] Lymphocytes Absolute 1.10 1.07 - 3.94 x10E9/L 12/04/2015 11:51 AM CDT [facility] Monocytes Absolute 0.66 0.26 - 1.07 x10E9/L 12/04/2015 11:51 AM CDT [facility] Eosinophils Absolute 0.05 0 - 0.47 x10E9/L 12/04/2015 11:51 AM CDT [facility] Basophils Absolute 0.03 0 - 0.08 x10E9/L 12/04/2015 11:51 AM T [facility] Immature Granulocytes Absolute 0.05 0.00 - 0.06 x10E9/L 12/04/2015 11:51 AM CDT [facility] nRBC Auto 0 /100 WBC 12/04/2015 11:51 AM T [facility] Blood BLOOD SPECIMEN / Unknown 12/04/2015 11:38 AM CDT 12/04/2015 11:47 AM CDT Lydia Villaseñor MD LAB - HEMATOLOGY ORD ERABLES [facility] [address] [address] documented in this encounter Visit Diagnoses Diagnosis Urinary tract infection, site unspecified- Primary SOB (shortness of breath) Shortness of breath Dizziness Dizziness and giddiness Abdominal pain, left upper quadrant documented in this encounter Administered Medications Inactive Administered Medications - up to 3 most recent administrations Medication Order MAR Action Action Date Dose Rate Site 0.9% NaCl infusion ADS Med 1 dose, Starting on Mon12/04/15 at 1206, Until Mon12/04/15 at 1211, Mary Dumont : cabinet override 0.9% NaCl infusion at 1,000 mL/hr, Intravenous, CONTINUOUS, Starting on Mon12/04/15 at 1245, Until Mon12/04/15 at 1539 $ New Bag/Syringe 12/04/2015 12:11 PM CDT 1000 mL/hr acetaminophen (TYLENOL) tablet 650 mg 650 mg, Oral, NOW, 1 dose, On Mon12/04/15 at 1215 $ Given 12/04/2015 12:11 PM CDT 650 mg acetaminophen (TYLENOL) tablet ADS Med 1 dose, Starting on Mon12/04/15 at 1206, Until Mon12/04/15 at 1211, Mary Dumont : cabinet override cefTRIAXone (ROCEPHIN) IVPB 1 g 1 g, at 200 mL/hr, Intravenous, EVERY 24 HOURS, First dose on Mon12/04/15 at 1315, Until Discontinued $ Given 12/04/2015 12:54 PM CDT 1 g 200 mL/hr ketorolac (TORADOL) injection 15 mg 15 mg, Intravenous, ONCE, 1 dose, On Mon12/04/15 at 1300 $ Given 12/04/2015 1:02 PM CDT 15 mg documented in this encounter Active and Recently Administered Medications Times are shown in CDT. Scheduled Medication Order 12/02/2015 12/03/2015 12/04/2015 acetaminophen (TYLENOL) tablet 650 mg (COMPLETED) 650 mg, Oral, NOW, 1 dose, On Mon12/04/15 at 1215 1211 ($ Given - Prov ider: Mary Dumont RN) cefTRIAXone (ROCEPHIN) IVPB 1 g (CANCELED) 1 g, at 200 mL/hr, Intravenous, EVERY 24 HOURS, First dose on Mon12/04/15 at 1315, Until Discontinued 1254 ($ Given - Prov ider: Mary Dumont RN)1324 (Due: Rx Stopped - Provider: Mary Dumont RN) ketorolac (TORADOL) injection 15 mg (COMPLETED) 15 mg, Intravenous, ONCE, 1 dose, On Mon12/04/15 at 1300 1302 ($ Given - Prov ider: Mary Dumont RN) Continuous Medication Order 12/02/2015 12/03/2015 12/04/2015 0.9% NaCl infusion (CANCELED) at 1,000 mL/hr, Intravenous, CONTINUOUS, Starting on Mon12/04/15 at 1245, Until Mon12/04/15 at 1539 1211 ($ New Bag/Syri nge - Provider: Mary Dumont RN) documented in this encounter Care Teams Produce Shipper Relationship Specialty Start Date End Date Avery Hidalgo DO PCP - General Family Medicine 08/26/15 03/25/20 documented as of this encounter
--- OUTSIDE RECORDS SUMMARY | 2024-07-30 14:07 | XMS_ITS | Encounter Summary ---
Author Organization [facility] Address [address] [address] Care Team Providers Care Public Health Aide Name Role Phone Molly Alvarado MD Primary Care Provider Reason for Referral * - Closed Specialty Diagnoses / Procedures Referred By Contac t Referred To Contact Gastroenterology Diagnoses Altered bowel habits Weight loss Procedures ENDOSCOPY, COLON, DIAGNOSTIC Josiah Breen MD [address] [facility] [address] [place] [address] Referral ID Status Reason Start Date Expiration Date Visits Re quested Visits Authorized [id number] Closed 04/03/2013 09/30/2013 1 1 Reason for Visit * Reason Comments Establish Care wt loss, abd pain,em erget BM's after eating Encounter Details Date Type Department Care Team (Late st Contact Info) Description 04/03/2013 9:00 AM CDT Office Visit [facility] [address] 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 Sexual Orientation Not on file documented as of this encounter Last Filed Vital Signs Vital Sign Reading Time Taken Comments Blood Pressure 110/74 04/03/2013 9:12 AM CDT Pulse 80 04/03/2013 9:12 AM CDT Temperature - - Respiratory Rate 16 04/03/2013 9:12 AM CDT Oxygen Saturation - - Inhaled Oxygen Concentration - - Weight 41.7 kg (92 lb) 04/03/2013 9:12 AM CDT Height 154.9 cm (5' 1 ) 04/03/2013 9:12 AM CDT Body Mass Index 17.38 04/03/2013 9:12 AM CDT documented in this encounter Patient Instructions * Patient Instructions* Luz Kaur - 04/03/2013 9:49 AM CDT MIRALAX/GATORADE COLONOSCOPY PREP Please arrive at 9AM for your procedure which is scheduled at 10:30AM, on 04/19/2013. Please register at: [place] [address] Your prescription has been sent to your pharmacy. IF YOU ARE TAKING ANY MEDICATIONS TO THIN YOUR BLOOD (COUMADIN, ASPIRIN, WARFARIN, ALEVE, NAPROSYN,ALEVE, ADVIL, IBUPROFEN, AGGRENOX AND PLAVIX) PLEASE SPEAK WITH YOUR ORDERING PHYSICIAN REGARDING THE USE OF THESE MEDICATIONS AROUND THE TIME OF YOUR PROCEDURE. WE PREFER THEM TO BE STOPPED 5 DAYS PRIOR TO YOUR EXAM. ALSO, PLEASE STOP ANY PRESCRIPTION IRON MEDICATION 1 WEEK PRIOR TO YOUR PROCEDURE THE DAY BEFORE your procedure: CLEAR LIQUIDS ONLY FOR BREAKFAST, LUNCH AND DINNER. This includes water, black coffee, tea, soda, jello (NO RED or PURPLE) Beef or Chicken broth, apple juice or white grape juice, popsicles (NOT RED or PURPLE). When in doubt??? if you can???t read through it, it is not considered clear liquid! Preparation timeline: The day before your procedure, follow these instructions: AT 12:00 pm-Take 2 dulcolax tablets, prior to starting your liquid laxative. AT 1:00 pm- Mix the entire 255 Gm. bottle of Miralax with the 64 oz Gatorade in a pitcher. (No RED Gatorade) Use Crystal Light if you are diabetic. Mix the solution in a pitcher until all is dissolved. Drink an 8 oz. glass every 10 - 15 minutes until the solution is gone. You may continue to have clear liquids until midnight. PLEASE HAVE NOTHING TO EAT OR DRINK AFTER MIDNIGHT. Except for important medication such as blood pressure, heart or seizure medications which ca be taken with a sip of water the day of your procedure. THE DAY OF your procedure: 1) BRING YOUR CURRENT MEDICATIONS IN THEIR ORIGINAL CONTAINERS WITH YOU TO THE PROCEDURE. 2) BRING SOMEONE TO DRIVE YOU TO YOUR PROCEDURE as you will be sedated and unable to drive yourselfhome. There is a comfortable waiting area with complimentary beverages available for your jukebox route driver during their wait period. 3) The physician will discuss the findings with you and your family members following your procedure. Thank you for allowing us to participate in your care. If you have any questions regarding this procedure or preparation for it, please call our office [phone]. PREPARATION FOR UPPER ENDOSCOPY Please arrive at 9AM for your procedure which is scheduled at 10:30AM, on 04/19/2013. Please register at: [place] [address] NO FOOD OR DRINK AFTER MIDNIGHT BEFORE YOUR EXAM. MEDICATION INSTRUCTIONS: DISCUSS WELL IN ADVANCE OF YOUR PROCEDURE: If you are taking Persantine, Heparin, Coumadin (Warfarin) or Plavix as prescribed by your physician, please phone us at [phone] well in advance of your procedure. 3 DAYS BEFORE your procedure, stop taking any blood thinners, such as Aspirin, Motrin, Advil, Aleve, Ibuprofen, Aggrenox or Naprosyn. 1 WEEK BEFORE your procedure, please stop any prescription iron medication. ON THE DAY OF YOUR PROCEDURE: Important medications, such as heart or blood pressure medications may be taken the morning of your test with a ???sip? of water. DO NOT EAT OR DRINK ANYTHING AFTER MIDNIGHT! Except for important medications such as blood pressure, heart or seizure medications, which may betaken the morning of your procedure with a sip of water. ON THE DAY OF your procedure BRING YOUR MEDS AND A P D DRIVER with you: BRING YOUR CURRENT MEDICATIONS IN THEIR ORIGINAL CONTAINERS WITH YOU TO YOUR PROCEDURE. BRING SOMEONE TO DRIVE YOU HOME. (The medication you will receive will prevent you from driving or working safely the day of your exam). There is a comfortable waiting area with complimentary beverages available for your jukebox route driver during their wait period. The physician will discuss the findings with you and your family members following your procedure. Thank you for allowing us to participate in your care. If you have any questions regarding this procedure or preparation for it, please call our office [phone]. documented in this encounter Progress Notes * Josiah Breen MD - 04/23/2013 11:06 AM CDTQuick Note: Will need follow up in office. May need hydrogen/ fructose breath tests prior to visit. * Luz Kaur - 04/03/2013 9:50 AM CDT sched pt for colon egd w/anesth on 04/19/2013 @ [facility]. Faxed or sched. Gave pt inst in office escribedrx * Josiah Breen MD - 04/03/2013 9:31 AM CDT GASTROENTEROLOGY INITIAL VISIT NOTE DEMOGRAPHICS: Patient: [place]taa Urena : 1985 Referring MRemingtonD.: Molly Alvarado Reason for consultation: diarrhea HISTORY OF PRESENT ILLNESS: 27 y.o.female with increasing problems with diarrhea particularly after any meal for the last 2-3 months. Has lost about 6-8 lbs and has associated gas and bloating. No fever, bleeding, melena, jointpains, visual problems, or rashes. Some vague right sided discomfort. Recent labs and U/S bland. Significant history of colon CA and polyps (mostly second degree relatives). No family history of rheumatologic or inflammatory disease. Has taken Z pack in last year and was given some prednisone for arespiratory problem in the last month (but after symptoms had started). PAST HISTORY: Past Medical History Diagnosis Date ??? Generalized anxiety disorder ??? Depressive disorder, not elsewhere classified ??? Vaginal vestibulitis Past Surgical History Procedure Date ??? section 04/03/2011 ALLERGIES: Allergies Allergen Reactions ??? Tetanus Toxoid Anaphylaxis ??? Tetanus Toxoid Anaphylaxis ??? Latex Itching Red and swollen MEDICATIONS: Current Outpatient Prescriptions Medication Status Sig Dispense Refill ??? famotidine (PEPCID) 40 MG tablet Active Take 40 mg by mouth once daily. ??? norethindrone-ethinyl estradiol (LOESTRIN 1.01/10, ,) 1.5-30 MG-MCG tablet Active History Social History ??? Marital Status: Spouse [...] Maternal Grandmother ??? Thyroid Disease Paternal Grandmother REVIEW OF SYSTEMS: Per HPI unless noted below: General ROS: negative Psychological ROS: negative Ophthalmic ROS: negative ENT ROS: negative Allergy and Immunology ROS: negative Hematological and Lymphatic ROS: negative Endocrine ROS: negative Breast ROS: negative Respiratory ROS: negative Cardiovascular ROS: negative Gastrointestinal ROS: per HPI Genito-Urinary ROS: negative Musculoskeletal ROS: negative Neurological ROS: negative Dermatological ROS: negative PHYSICAL EXAM: Vitals: 04/03/13 0912 BP: 110/74 Pulse: 80 Resp: 16 Weight: 41.731 kg (92 lb) Body mass index is 17.38 kg/(m^2). Awake, alert and oriented x 3. Well-developed, in no acute distress. Normocephalic. Conjunctiva without erythema. PERRLA. TMs normal. Pharynx clear. Clear to auscultation bilaterally. No abnormal respiratory effort or retraction noted. Breath sounds are positive bilaterally. Regular rate, rhythm without murmur. BS+, soft, mild RLQ discomfort. No rebound or mass. Normal to inspection. Warm, dry, supple, with no changes in moles or sores that will not heal. alert, oriented, normal speech, no focal findings or movement disorder noted nml appearance LABS: Component Name 03/02/13200708/02/11 1356 07/23/10 1121 SODIUM 141 138 -- POTASSIUM 3.4* 3.9 -- CHLORIDE 106 102 -- CO2 19* 20 -- BUN 13 11 -- CREATININE 0.78 0.64 -- GLUCOSE 94 81 85 Component Name 03/02/13200708/02/11 1349 04/04/11 0547 04/03/11 0140 07/23/10 1121 WBC 8.2 7.8 -- 13.84* 8.4 HGB 14.4 13.2 9.9* 12.5 14.4 PLTCOUNT 285 327 -- 251 318 MCV 83.8 89 -- 89.9 83.2 INR -- -- -- -- -- Component Name 03/02/13200708/02/11 1356 ALBUMIN 4.2 4.7 ALKPHOS 74 58 TBIL 0.4 0.3 AST 18 23 ALT 26 22 Component Name 03/02/13200708/02/11 1356 08/02/11 1349 07/23/10 1121 AMYLASE 44 -- 46 -- LIPASE 145 34 -- -- FERRITIN -- -- -- -- IRON -- -- -- 139.4 Pertinent radiology: Assessment/Plan: Pt is 27 y.o. female with: Now chronic diarrhea, gas, bloating and some right sided abdominal pain. Will schedule for EGD/ colon for evaluation. Will also screen for sprue with serologies. Asked to avoid dairy for the time being. I have discussed the above recommendations and their risks, benefits, and alternatives, with the patient and any family present, and all agreed with the plan. All questions were answered. documented in this encounter Plan of Treatment Not on file documented as of this encounter Procedures Procedure Name Priority Date/Time Associated Diagnosis Comments FOLATE RBC Routine 04/03/2013 9:58 AM CDT Altered bowel habits Weight loss TISSUE TRANSGLUTAMINASE AB IGA Routine 04/03/2013 9:54 AM CDT Altered bowel habits Weight loss VITAMIN B12 Routine 04/03/2013 9:54 AM CDT Altered bowel habits Weight loss IGA BLOOD Routine 04/03/2013 9:54 AM CDT Altered bowel habits Weight loss documented in this encounter Results * ENDOSCOPY, COLON, DIAGNOSTIC (04/19/2013 11:09 AM [...] from the Results section by Eloy Martinez [[email or web address]] on 04/25/2013 at ??9:06 AM (File: [id number]) Reason: linked to wrong order Procedure Note Josiah Breen MD - 04/19/2013 11:08 AM CDT EGD- Minimal distal esophageal erythema, biopsies taken. Otherwise, normal except scant clear fluid. Random duodenal biopsies taken. Colon- Normal exam to ileum. Random ileal and colon biopsies taken. Stool collected. A/P: F/U stool studies and biopsies. Will follow up in office. Josiah Breen MD GI PROCEDURE ORDERAB LES * FOLATE RBC (04/03/2013 9:58 AM CDT) Folate Hemolysate 372.0 Not Estab. ng/mL [facility] ACCOUNT BILL Hematocrit 41.9 34.0 - 46.6 % [facility] ACCOUNT BILL Folate RBC 888 499 - 1,504 ng/mL [facility] ACCOUNT BILL Blood specimen (specimen) BLOOD SPECIMEN WITH EDTA / Unknown 04/03/2013 9:58 AM CDT 04/03/2013 1:06 PM CDT Narrative Resulting Agency Comment [facility] [address] ??[facility] [id number] Josiah Breen MD LAB - CHEMISTRY TIFFANIE WILLS Performing Organization Address [facility] Co de Phone Number [facility] ACCOUNT BILL * VITAMIN B12 (04/03/2013 9:54 AM CDT) Vitamin B12 304 211 - 946 pg/mL [facility] ACCOUNT BILL Blood specimen (specimen) BLOOD SPECIMEN / Unknown 04/03/2013 9:54 AM CDT 04/03/2013 1:06 PM CDT Narrative Resulting Agency Comment [facility] [address] ??[facility] [phone] Josiah Breen MD LAB - CHEMISTRY TIFFANIE WILLS Performing Organization Address [facility] de Phone Number [facility] ACCOUNT BILL * TISSUE TRANSGLUTAMINASE AB [...] PM CDT Narrative Resulting Agency Comment [facility] [place] [id number] ??[facility] [phone] Josiah Breen MD LAB - SEROLOGY ORDER SHARON [facility] ACCOUNT BILL * IGA BLOOD (04/03/2013 9:54 AM CDT) IgA Quantitative 210 91 - 414 mg/dL [facility] ACCOUNT BILL Blood specimen (specimen) BLOOD SPECIMEN / Unknown 04/03/2013 9:54 AM CDT 04/03/2013 1:06 PM CDT Narrative Resulting Agency Comment [facility] [place] [address] ??[facility] [id number] Josiah Breen MD LAB - CHEMISTRY TIFFANIE WILLS [facility] ACCOUNT BILL documented in this encounter Visit Diagnoses Diagnosis Altered bowel habits- Primary Other symptoms involving digestive system Weight loss Loss of weight Diarrhea- Primary documented in this encounter Care Teams Public Health Aide Relationship Specialty Start Date End Date Molly Alvarado MD PCP - General Family Medicine 12/05/11 08/25/15 documented as of this encounter
--- OUTSIDE RECORDS SUMMARY | 2024-07-30 14:07 | XMS_ITS | Encounter Summary ---
Author Organization [facility] Address [address] [place] [address] Care Team Providers Care Experimental Mechanic Electrical Name Role Phone Molly Alvarado MD Primary Care Provider Avery Hidalgo DO Primary Care Provider [phone] Encounter Details Date Type Department Care Team (Latest Contact Info) Description 05/18/2015 Hospital Outpatient Visit Historic [facility] [address] [place] [phone] Annette Singh MD [address] [facility] [address] [place] [address] Discharge Disposition: Home or Self Care Social History Tobacco Use Types Packs/Day Years Used Date Smoking Tobacco: Never Smokeless Tobacco: Never Alcohol Use Standard Drinks/Week Comments Yes 0 (1 standard drink = 0.6 oz pur e alcohol) social - rare Sex and Gender Information Value Date Recorded Sex Assigned at Not on file Gender Identity Female 08/19/2022 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 Sexual Orientation Not on file documented as of this encounter Plan of Treatment Not on file documented as of this encounter Procedures Procedure Name Priority Date/Time Associated Diagnosis Comments HLA TYPING SEROLOGIC DR,DQ Routine 05/18/2015 8:49 AM CDT HLA TYPING A,B,C MULTIPLE ANTIGEN Routine 05/18/2015 8:49 AM CDT TYPE + SCREEN PANEL Routine 05/18/2015 8 :49 AM CDT documented in this encounter Results * HLA TYPING A,B,C MULTIPLE ANTIGEN (05/18/2015 8:49 AM CDT) ABC Serotype A1 1 [facility] ([facility]) ABC Serotype A2 2 [facility] ([facility]) ABC Serotype B1 8 [facility] ([facility]) ABC Serotype B2 51 [facility] ([facility]) ABC Serotype BW1 6 [facility] ([facility]) ABC Serotype BW2 4 [facility] ([facility]) ABC Serotype Cw-1 2 [facility]) ABC Serotype Cw-2 5 [facility] ([facility]) ABC Serotype Test Date 05/28/20 15 [facility] ([facility]) Comment: This test was developed and its performance characteristics determined bythe [facility]. ??It has not been cleared or approved by theU.S. Food and Drug Administration. ??The FDA has determined that suchclearance or approval is not necessary. ?? This test is used for clinicalpurposes. ??It should not be regarded as investigational or for research.This laboratory is certified under the Clinical Laboratory ImprovementAmendments of 1988 (CLIA-88) as qualified to perform high complexityclinical laboratory testing.Performed at: ??[facility], [address] @ [facility], [place] ??[id number] Director: Douglas Pham MD, Blood specimen (specimen) BLOOD SPECIMEN / Unknown 05/18/2015 8:49 AM CDT 05/18/2015 9:09 AM CDT Annette Singh MD LAB - BLOOD BANK ORD ERABLES [facility] ([facility]) * HLA TYPING SEROLOGIC DR,DQ (05/18/2015 8:49 AM CDT) DR1 1 [facility] ([facility]) DR2 11 [facility] ([facility]) DRW-1 52 [facility] ([facility]) DRW-2 - [facility] ([facility]) DQ 1 5 [facility] ([facility]) DQ 2 7 [facility] ([facility]) DRDQ Test Date 05/28/20 15 [facility] ([facility]) Comment: This test was developed and its performance characteristics determined bythe [facility]. ??It has not been cleared or approved by theU.S. Food and Drug Administration. ??The FDA has determined that suchclearance or approval is not necessary. ?? This test is used for clinicalpurposes. ??It should not be regarded as investigational or for research.This laboratory is certified under the Clinical Laboratory ImprovementAmendments of 1988 (CLIA-88) as qualified to perform high complexityclinical laboratory testing.Performed at: ??[facility], [address] @ [place], [place] ??[id number] Director: Douglas Pham MD, Blood specimen (specimen) BLOOD SPECIMEN / Unknown 05/18/2015 8:49 AM CDT 05/18/2015 9:09 AM CDT Annette Singh MD LAB - BLOOD BANK ORD ERABLES [facility] ([facility]) * TYPE + SCREEN PANEL (05/18/2015 8:49 AM CDT) Typem O POS [facility] Antibody Screen NEG [facility] Blood specimen (specimen) 05/18/2015 8:49 AM CDT 05/18/2015 9:12 AM CDT Annette Singh MD LAB - BLOOD BANK ORD ERABLES [facility] [address] documented in this encounter Visit Diagnoses Diagnosis Donor of organ or tissue Donor of unspecified organ or tissue documented in this encounter Care Teams Experimental Mechanic Electrical Relationship Specialty Start Date End Date Molly Alvarado MD PCP - General Family Medicine 4/23/12 1/12/16 Avery Hidalgo DO PCP - General Family Medicine 08/26/15 03/25/20 documented as of this encounter
--- OUTSIDE RECORDS SUMMARY | 2024-07-30 14:07 | XMS_ITS | Encounter Summary ---
Author Organization [facility] Address [address] [place] [address] Care Team Providers Care It Systems Analyst Consultant Name Role Phone Avery Hidalgo DO Primary Care Provider [phone] Reason for Visit * Reason Comments Follow-up 4 M Encounter Details Date Type Department Care Team (Late st Contact Info) Description 12/08/2015 10:30 AM CDT Office Visit [facility] Medical [facility] - Internal Medicine 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 Sexual Orientation Not on file documented as of this encounter Last Filed Vital Signs Vital Sign Reading Time Taken Comments Blood Pressure 106/60 12/08/2015 10:24 AM CDT Pulse 72 12/08/2015 10:24 AM CDT Temperature 36.4 ??C (97.5 ??F) 12/08/2015 10:24 AM C DT Respiratory Rate 16 12/08/2015 10:24 AM CDT Oxygen Saturation - - Inhaled Oxygen Concentration - - Weight 43 kg (94 lb 12.8 oz) 12/08/2015 10:24 AM CDT Height 154.9 cm (5' 1 ) 12/08/2015 10:24 AM CDT Body Mass Index 17.91 12/08/2015 10:24 AM CDT documented in this encounter Patient Instructions * Patient Instructions* Beryl Chamberlain - 12/08/2015 10:24 AM CDT Continue current supplements and medications for improving/stable chronic medical conditions. Patient was encouraged to call immediately for any concerns or problems. documented in this encounter Progress Notes * Avery Hidalgo DO - 12/09/2015 8:28 AM CDT SUBJECTIVE: Cata Urena is a 30 y.o. female here for follow up of multiple chronic problems. anxiety: Interval History: Mood has remained stable since last visit. No suicidal thoughts. No medication concerns. allergic rhinitis. Sagk-bkm-fwoparg meds without affect has been using Claritin vitamin-D deficiency. Recent labs reviewed will need to be taking supplement daily Other concerns: dysuria. Significant left belly pain went to the ER told she had pyelonephritis no white count no fever CT negative UA shows some bacteria. Continuing with antibiotic and improving patient has had this 3 or 4 times so has her sister. Possible reflux was discussed but has never been worked up per her report Compliance and Risk Factor reduction: Following all dietary, exercise and medication recommendations as directed Review of Systems: Constitutional: No significant weight change, no fever, no increasing fatigue Negative Ears, nose, mouth, and throat: Denies persistent postnasal drip Positive for sinus trouble Respiratory: denies productive cough or shortness of breath at rest Negative Cardiovascular: no exertional chest pain or palpitations Negative Gastrointestinal: No nausea or vomitingNegative I have reviewed the patients past medical history,surgical history,family history,problem list,allergies to medications,current medicines and the most recent labs and studies OBJECTIVE: BP 106/60 mmHg Pulse 72 Temp(Src) 97.5 ??F (Temporal) Resp 16 Wt 43.001 kg (94 lb 12.8 oz) BMI 17.92 kg/m2 Wt Readings from Last 3 Encounters: 12/08/15 43.001 kg (94 lb 12.8 oz) 12/04/15 40.824 kg (90 lb) 08/26/15 42.185 kg (93 lb) Temp Readings from Last 3 Encounters: 12/08/15 97.5 ??F Temporal 12/04/15 98.7 ??F 08/26/15 98.6 ??F Temporal BP Readings from Last 3 Encounters: 12/08/15 106/60 12/04/15 104/64 08/26/15 94/60 Pulse Readings from Last 3 Encounters: 12/08/15 72 12/04/15 97 01/01/15 71 Head,eye ; normocephalic, atraumatic. PERRRLA. EOMI ENT [...] LABS:No results found for this visit on 12/08/15. ASSESSMENT/PLAN: 1. Acute cystitis without hematuria ; Recent ER visit treated with antibiotic will need further evaluation story sounds like possible urinary reflux 2. Anxiety and depression ; Condition stable. New labs ordered if indicated and medications refilled. 3. Vitamin D deficiency disease ; Condition stable. New labs ordered if indicated and medications refilled. 4. Allergic rhinitis due to pollen ; Recommend use of Angeli 180 Outpatient Encounter Prescriptions as of 12/08/2015 Medication Sig Dispense Refill ??? ciprofloxacin (CIPRO) [...] in the PM) 30 Tab 0 ??? DULoxetine (CYMBALTA) 60 MG capsule Take 1 Cap by mouth once daily 5 No facility-administered encounter medications on file as of 12/08/2015. documented in this encounter Plan of Treatment Not on file documented as of this encounter Visit Diagnoses Diagnosis Acute cystitis without hematuria- Primary Acute cystitis Anxiety and depression Dysthymic disorder Vitamin D deficiency disease Unspecified vitamin D deficiency Allergic rhinitis due to pollen documented in this encounter Care Teams It Systems Analyst Consultant Relationship Specialty Start Date End Date Avery Hidalgo DO PCP - General Family Medicine 08/26/15 03/25/20 documented as of this encounter
--- OUTSIDE RECORDS SUMMARY | 2024-07-30 14:07 | XMS_ITS | Encounter Summary ---
Author Organization [facility] Address [address] [address] Care Team Providers Care Ladies' Hat Trimmer Name Role Phone Molly Alvarado MD Primary Care Provider Reason for Visit * Reason Comments Sore Throat x2 days, slight prod uctive cough, yellow mucus (very minimal). 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 Office Visit [facility] Medical [facility] - Family Medicine [address] [place] [phone] Jeremie Kolb MD [address] [place] [address] [address] [place] [phone] Sore throat (Primary Dx); Bronchitis, acute Social History Tobacco Use Types Packs/Day Years Used Date Smoking Tobacco: Never Smokeless Tobacco: Never Alcohol Use Standard Drinks/Week Comments Yes 0 (1 standard drink = 0.6 oz pur e alcohol) social - rare Sex and Gender Information Value Date Recorded Sex Assigned at Not on file Gender Identity Female 08/19/2022 7:56 AM 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 Sexual Orientation Not on file documented as of this encounter Last Filed Vital Signs Vital Sign Reading Time Taken Comments Blood Pressure 106/78 10/14/2014 3:24 PM 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 Pulse 100 10/14/2014 3:24 PM 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 Temperature 37.1 ??C (98.8 ??F) 10/14/2014 3:24 PM CS T Respiratory Rate 20 10/14/2014 3:24 PM 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 Oxygen Saturation 99% 10/14/2014 3:24 PM 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 Inhaled Oxygen Concentration - - Weight 40.1 kg (88 lb 6.4 oz) 10/14/2014 3:24 P M 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 Height 154.9 cm (5' 0.98 ) 10/14/2014 3:24 PM CS T Body Mass Index 16.71 10/14/2014 3:24 PM 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 documented in this encounter Patient Instructions * Patient Instructions* Jeremie Kolb MD - 10/14/2014 3:56 PM 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 Gargle with diluted listerine at least 3x per day Consider marlyn vapor rub to chest and back Consider a humidifier Consider vitamin c 500mg po q day Hydration with water and gatorade---aim for 2.5 to 3 liters per day Consider tylenol over the counter 500mg po q 6 hrs as need for pain and temp----no more than 3000mgin 24 hrs RESS MACHINE OPERATOR documented in this encounter Progress Notes * Jeremie Kolb MD - 10/16/2014 8:03 AM CSTQuick Note: Positive pt was already given azithromycin 10/14/14 RESS MACHINE OPERATOR * Jeremie Kolb MD - 10/14/2014 3:41 PM CST CC: Cata Urena is a 29 y.o. female who presents to the office for Chief Complaint Patient presents with ??? Sore Throat x2 days, slight productive cough, yellow mucus (very minimal). ??? Ear Problem x2 weeks, left ear feels slight pain, like she is in a tunnel HPI: 2 weeks of ear pain on left side. No d/c and did not put anything in it and has muffle sounds 2 days of sore throat feel raw. 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 Tetanus Toxoid Anaphylaxis ??? Reglan [Metoclopramide] Made her insane , got shaky ??? Latex Itching Red and swollen Family History Problem Relation Age of Onset ??? Hypercholesterolemia Father ??? Depression Father ??? Cancer Mother breast ??? Arthritis-rheumatoid Maternal Grandmother ??? Coronary Artery Disease Maternal Grandmother ??? Diabetes Maternal Grandmother ??? Heart Failure Maternal Grandmother ??? Hypertension Mother ??? Hypertension Father ??? Thyroid Disease Mother ??? Thyroid Disease Maternal Grandmother ??? Thyroid Disease Paternal Grandmother History Smoking status ??? Never Smoker Smokeless tobacco ??? Never Used History Social History ??? Marital Status: Spouse Name: N/A Number of Children: 1 ??? Years of Education: N/A Occupational History ??? [employer] Social History Main Topics ??? Smoking status: Never Smoker ??? Smokeless tobacco: Never Used ??? Alcohol Use: Yes Comment: social - rare ??? Drug Use: No ??? Sexual Activity: Partners: Male Other Topics Concern ??? Not on file Social History Narrative Merged History Encounter Patient Active Problem List Diagnosis Date Noted ??? Cough 11/08/2013 ??? Fever 11/08/2013 ??? Abnormal weight loss 04/03/2013 ??? Abdominal pain, generalized 04/03/2013 ??? Dizziness and giddiness 03/02/2013 ??? Nausea 08/03/2011 08-02-2011: labs and us abdomen neg. HIDA scan ordered. ??? Belching 08/03/2011 ??? Family history of breast cancer in first degree relative 06/17/2011 ??? Vaginal vestibulitis ??? state, incidental 04/03/2011 Current Outpatient Prescriptions Medication Sig Dispense Refill ??? escitalopram (LEXAPRO) 10 MG tablet Take 10 mg by mouth once daily. ??? albuterol HFA (PROVENTIL;VENTOLIN;PROAIR) 108 (90 BASE) MCG/ACT inhaler Inhale 2 Puffs by mouthevery 4 hours as needed for Shortness of Breath, Wheezing or Cough. 1 Inhaler 1 ??? azithromycin (ZITHROMAX) 250 MG tablet 2 tablets by mouth with food day#1, then 1 tablet daily for days 2-5 6 Tab 0 ??? Estradiol Cypionate (DEPO-ESTRADIOL IM) Inject into muscle. ??? famotidine (PEPCID) 40 MG tablet Take 40 mg by mouth once daily. No current facility-administered medications for this visit. Office Visit on 10/14/14 STREP A SCREEN - POINT OF CARE (AMB) Result Value Ref Range Strep A Rapid Negative Negative Strep A INTERNAL CONTROL NEGATIVE - POSITIVE ROS: Constitutional: Admit to having low grade temp 100f 2 days ago HEENT: no headache Sore throat positive and changes in hearing left ear no d/c Cardiovascular: no cp Pulmonary: no sob, cough small amount of yellow phlegm Skin: no rashes Remainder of ROS is negative other than as indicated in HPI. PHYSICIAL EXAM: BP 106/78 Pulse 100 Temp(Src) 98.8 ??F (Temporal) Resp 20 Wt 40.098 kg (88 lb 6.4 oz) BMI16.71 kg/m2 Height: 154.9 cm (5' 0.98 ) BP Readings from Last 3 Encounters: 10/14/14 106/78 03/13/14 130/87 11/08/13 121/87 General appearance: Patient is alert and oriented x3 appears sick but nontoxic HEENT exam reveals: Pupils equally round and reactive to light tympanic membranes and ear canals are within normal limits bilaterally oropharynx appears reddened without any exudates Neck: Neck is supple Lymphatic exam: Positive anterior cervical adenopathy CVS exam: S1 and S2 are regular Chest: Mainly clear to auscultation bilaterally. There is some chest congestion mild wheeze Skin exam - normal coloration and pigmentation ASSESSMENT/PLAN: (462) Sore throat (primary encounter diagnosis) Plan: STREP A SCREEN - POINT OF CARE (AMB), CULTURE STREP GROUP A (466.0) Bronchitis, acute Plan: albuterol HFA (PROVENTIL;VENTOLIN;PROAIR) 108 (90 BASE) MCG/ACT inhaler, azithromycin (ZITHROMAX) 250 MG tablet Orders Placed This Encounter ??? CULTURE STREP GROUP A ??? STREP A SCREEN - POINT OF CARE (AMB) ??? albuterol HFA (PROVENTIL;VENTOLIN;PROAIR) 108 (90 BASE) MCG/ACT inhaler Sig: Inhale 2 Puffs by mouth every 4 hours as needed for Shortness of Breath, Wheezing or Cough. Dispense: 1 Inhaler Refill: 1 ??? azithromycin (ZITHROMAX) 250 MG tablet Si tablets by mouth with food day#1, then 1 tablet daily for days 2-5 Dispense: 6 Tab Refill: 0 FOLLOW UP: Return in about 3 weeks (around 11/04/2014) for acute bronchitis. Patient advisement: Gargle with diluted listerine at least 3x per day Consider marlyn vapor rub to chest and back Consider a humidifier Consider vitamin c 500mg po q day Hydration with water and gatorade---aim for 2.5 to 3 liters per day Consider tylenol over the counter 500mg po q 6 hrs as need for pain and temp----no more than 3000mgin 24 hrs RESS MACHINE OPERATOR documented in this encounter Plan of Treatment Not on file documented as of this encounter Procedures Procedure Name Priority Date/Time Associated Diagnosis Comments CULTURE STREP GROUP A Routine 10/14/2014 3:51 PM 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 Sore throat STREP A SCREEN - POINT OF CARE (AMB) Routine 10/14/2014 3:50 PM 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 Sore throat documented in this encounter Results * (ABNORMAL) CULTURE STREP GROUP A (10/14/2014 3:51 PM 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) Beta-Strep Culture, Group A Only (A) [...] OF NECK) / Unknown 10/14/2014 3:51 PM 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 10/14/2014 9:09 PM 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 Narrative Resulting Agency Comment [facility] [address] ??[facility] [id number] Jeremie Kolb MD LAB - MICROBIOLOGY O RDERABLES [facility] ACCOUNT BILL * STREP A SCREEN - POINT OF CARE (AMB) (10/14/2014 3:50 PM 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) Strep A Rapid POCT Negative Negative Strep A Internal Control NEGATIVE - POSITIVE Throat swab (specimen) NASOPHARYNGEAL SWAB / Unknown 10/14/2014 3:50 PM 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 Jeremie Kolb MD LAB - POINT OF CARE ORDERABLES documented in this encounter Visit Diagnoses Diagnosis Sore throat- Primary Acute pharyngitis Bronchitis, acute Acute bronchitis documented in this encounter Care Teams Ladies' Hat Trimmer Relationship Specialty Start Date End Date Molly Alvraado MD PCP - General Family Medicine 12/05/11 08/25/15 documented as of this encounter
--- OUTSIDE RECORDS SUMMARY | 2024-07-30 14:07 | XMS_ITS | Encounter Summary ---
Author Organization [facility] Address [address] [place] [address] Care Team Providers Care Electrician Sound Name Role Phone Avery Hidalgo DO Primary Care Provider [phone] Reason for Visit * Reason Comments Follow-up 6 MO Encounter Details Date Type Department Care Team (Late st Contact Info) Description 01/04/2017 2:30 PM CDT Office Visit [facility] Medical [facility] - Internal Medicine [address] [place] [address] Avery Hidalgo DO [address] [place], [place] [id number] Seasonal allergic rhinitis due to pollen (Primary Dx); Anxiety and depression; Tinea versicolor; Vitamin D deficiency disease Social History Tobacco Use Types Packs/Day Years Used Date Smoking Tobacco: Never Smokeless Tobacco: Never Alcohol Use Standard Drinks/Week Comments Yes 0 (1 standard drink = 0.6 oz pur e alcohol) social - rare Sex and Gender Information Value Date Recorded Sex Assigned at Not on file Gender Identity Female 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 Sexual Orientation Not on file documented as of this encounter Last Filed Vital Signs Vital Sign Reading Time Taken Comments Blood Pressure 121/79 01/04/2017 2:29 PM CDT Pulse 83 01/04/2017 2:29 PM CDT Temperature 36.9 ??C (98.4 ??F) 01/04/2017 2:29 PM CD T Respiratory Rate 12 01/04/2017 2:29 PM CDT Oxygen Saturation 100% 01/04/2017 2:29 PM CDT Inhaled Oxygen Concentration - - Weight 44.5 kg (98 lb) 01/04/2017 2:29 PM CDT Height 154.9 cm (5' 1 ) 01/04/2017 2:29 PM CDT Body Mass Index 18.52 01/04/2017 2:29 PM CDT documented in this encounter Patient Instructions * Patient Instructions* Beryl Chamberlain - 01/04/2017 2:29 PM CDT It is important to Dr. Hidalgo [...] Progress Notes * Avery Hidalgo DO - 01/05/2017 3:42 PM CDT SUBJECTIVE: Cata Urena is a 31 y.o. female here for follow up of multiple chronic problems. When asked if patient has any new concerns or changes she does not inform pain that she is moving from the area. She has told staff that she is moving out of the area. Depression /anxiety: Interval History: Mood has remained stable since last visit. No suicidal thoughts. No medication concerns. vitamin-D deficiency. Maintaining medication daily allergic rhinitis. Some worsening symptoms with clear runny nose [id number]-bafwwhv Claritin without relief Other concerns: itchy dry patch to anterior chest has had signs and symptoms for months tried multiple byaj-nbv-usebbgg meds without relief. Compliance and Risk Factor reduction: Following all [...] most recent labs and studies OBJECTIVE: BP 121/79 (BP SITE: LEFT ARM, BP POSITION: SITTING, BP CUFF SIZE: Adult) Pulse 83 Temp 98.4 ??F (Temporal) Resp 12 Ht 1.549 m (5' 1 ) Wt 44.5 kg (98 lb) SpO2 100% BMI 18.52 kg/m2 Wt Readings from Last 3 Encounters: 01/04/17 44.5 kg (98 lb) 06/22/16 44.4 kg (97 lb 12.8 oz) 12/08/15 43 kg (94 lb 12.8 oz) Temp Readings from Last 3 Encounters: 01/04/17 98.4 ??F (Temporal) 06/22/16 98.5 ??F (Temporal) 12/08/15 97.5 ??F (Temporal) BP Readings from Last 3 Encounters: 01/04/17 121/79 06/22/16 118/70 12/08/15 106/60 Pulse Readings from Last 3 Encounters: 01/04/17 83 06/22/16 82 12/08/15 72 Head,eye ; normocephalic, atraumatic. PERRRLA. EOMI ENT Skin: no rashes and warm and dry Tinea versicolor rash to anterior chest Neck exam - supple, no significant adenopathy. [...] LABS:No results found for this visit on 01/04/17. ASSESSMENT/PLAN: 1. Seasonal allergic rhinitis due to pollen ; Recommend Angeli 180 2. Anxiety and depression ; Encourage maintain medication 3. Tinea versicolor ; Treat with oral griseofulvin For 1 month 4. Vitamin D deficiency disease ; Condition stable. New labs ordered if indicated and medications refilled. Outpatient Encounter Prescriptions as of 01/04/2017 Medication Sig Dispense Refill ??? buPROPion (WELLBUTRIN) 100 MG tablet TK 1 T PO QAM 2 ??? QUEtiapine (SEROQUEL) 25 MG tablet TK 1 T PO HS. 0 ??? famotidine (PEPCID) 40 MG tablet Take 40 mg by mouth once daily ??? griseofulvin ultramicrosize (LEONARD-PEG) 250 MG tablet Take 1 Tab by mouth once daily 30 Tab 0 ? ? AMETHIA 0.15-0.03 &0.01 MG [...] by mouth 2 times daily ??? [DISCONTINUED] venlafaxine XR 24hr (EFFEXOR XR) 75 MG capsule Take 1 Cap by mouth once daily 0 No facility-administered encounter medications on file as of 01/04/2017. documented in this encounter Plan of Treatment Not on file documented as of this encounter Procedures Procedure Name Priority Date/Time Associated Diagnosis Comments VITAMIN D 25-HYDROXY Routine 03/29/2017 11:02 AM CDT Vitamin D deficiency disease CBC W AUTO DIFFERENTIAL Routine 03/29/2017 11:02 AM CDT Anxiety and depression COMPREHENSIVE METABOLIC PANEL Routine 03/29/2017 11:02 AM CDT Anxiety and depression TSH Routine 03/29/2017 11:02 AM CDT Anxiety and depression LIPID PROFILE Routine 03/29/2017 11:02 AM CDT Anxiety and depression documented in this encounter Results * VITAMIN D 25-HYDROXY (03/29/2017 11:02 AM CDT) Vitamin D, 25 Hydroxy 34.8 30.0 - 100.0 ng/mL [facility] ACCOUNT BILL Comment: Vitamin D deficiency has been defined by the [place] of [employer] and an Endocrine Society practice guideline as a level of serum 25-OH vitamin D less than 20 ng/mL (1,2). The Endocrine Society went on to further define vitamin D insufficiency as a level between 21 and 29 ng/mL (2). 1. IOM ([place] of [employer]). 2010. Dietary reference ?? intakes for calcium and D. [place]: The ?? National [employer]. 2. Brooke ABREU, Annette PAYNE, Clarice MORGAN, et al. ?? Evaluation, treatment, and prevention of vitamin D ?? deficiency: an Endocrine Society clinical practice ?? guideline. JCEM. 2010; 96(7):1911-30. FASTING Blood BLOOD SPECIMEN / Unknown 03/29/2017 11:02 AM CDT 03/29/2017 Narrative Resulting Agency Comment [facility] [address] ??[facility] [phone] Avery Hidalgo DO LAB - CHEMISTRY TIFFANIE WILLS Performing Organization Address City/[facility] Co de Phone Number [facility] ACCOUNT BILL [address] [place] [address] * TSH (03/29/2017 11:02 AM CDT) TSH 1.430 0.450 - 4.500 uIU/mL [facility] ACCOUNT BILL Comment:FASTING Blood BLOOD SPECIMEN / Unknown 03/29/2017 11:02 AM CDT 03/29/2017 Narrative Resulting Agency Comment [facility] [address] ??[facility] [phone] Avery Hidalgo DO LAB - CHEMISTRY TIFFANIE WILLS [facility] ACCOUNT BILL [address] [place] [address] * COMPREHENSIVE METABOLIC PANEL (03/29/2017 11:02 AM CDT) Glucose 73 65 - 99 mg/dL [facility] ACCOUNT BILL BUN 10 6 - 20 mg/dL [facility] ACCOUNT BILL Creatinine 0.92 0.57 - 1.00 mg/dL [facility] ACCOUNT BILL eGFR by MDRD 83 >59 mL/min/1.7 3 [facility] ACCOUNT BILL eGFR by MDRD 95 >59 mL/min/1.7 3 [facility] ACCOUNT BILL BUN/Creatinine Ratio 11 9 - 23 [facility] ACCOUNT BILL Sodium 139 134 - 144 mmol/L [facility] ACCOUNT BILL Potassium 4.2 3.5 - 5.2 mmol/L [facility] ACCOUNT BILL Chloride 101 96 - 106 mmol/L [facility] ACCOUNT BILL CO2 20 18 - 29 mmol/L [facility] ACCOUNT BILL Calcium 9.4 8.7 - 10.2 mg/dL [facility] ACCOUNT BILL Protein Total 7.0 6.0 - 8.5 g/dL [facility] ACCOUNT BILL Albumin 4.1 3.5 - 5.5 g/dL [facility] ACCOUNT BILL Globulin Total 2.9 1.5 - 4.5 g/dL [facility] ACCOUNT BILL Albumin/Globulin Ratio 1.4 1.2 - 2.2 [facility] ACCOUNT BILL Bilirubin Total 0.3 0.0 - 1.2 mg/dL [facility] ACCOUNT BILL Alkaline Phosphatase 55 39 - 117 IU/L [facility] ACCOUNT BILL AST 15 0 - 40 IU/L [facility] ACCOUNT BILL ALT 9 0 - 32 IU/L [facility] ACCOUNT BILL Comment:FASTING Blood BLOOD SPECIMEN / Unknown 03/29/2017 11:02 AM CDT 03/29/2017 Narrative Resulting Agency Comment [facility] [address] ??[facility] [phone] Avery Hidalgo DO LAB - CHEMISTRY ORDE JOHANN Performing Organization Address City/[facility]/ZIP Co de Phone Number [facility] ACCOUNT BILL [address] [place] [address] * CBC W AUTO DIFFERENTIAL (03/29/2017 11:02 AM CDT) WBC 6.4 3.4 - 10.8 x10E3/uL [facility] ACCOUNT BILL RBC 4.57 3.77 - 5.28 x10E6/uL [facility] ACCOUNT BILL Hemoglobin 13.7 11.1 - 15.9 g/dL [facility] ACCOUNT BILL Hematocrit 39.7 34.0 - 46.6 % [facility] ACCOUNT BILL MCV 87 79 - 97 fL [facility] ACCOUNT BILL MCH 30.0 26.6 - 33.0 pg [facility] ACCOUNT BILL MCHC 34.5 31.5 - 35.7 g/dL [facility] ACCOUNT BILL RDW 13.7 12.3 - 15.4 % [facility] ACCOUNT BILL Platelet Count 367 150 - 379 x10E3/uL [facility] ACCOUNT BILL Granulocytes % 45 % [facility] ACCOUNT BILL Lymphocytes % 44 % [facility] ACCOUNT BILL Monocytes % 8 % [facility] ACCOUNT BILL Eosinophils % 3 % [facility] ACCOUNT BILL Basophils % 0 % [facility] ACCOUNT BILL Immature Cells NOT NEEDED [facility] ACCOUNT BILL Comment:Ancillary determined the test is not needed Granulocytes Absolute 2.8 1.4 - 7.0 x10E3/uL [facility] ACCOUNT BILL Lymphocytes Absolute 2.8 0.7 - 3.1 x10E3/uL [facility] ACCOUNT BILL Monocytes Absolute 0.5 0.1 - 0.9 x10E3/uL [facility] ACCOUNT BILL Eosinophils Absolute 0.2 0.0 - 0.4 x10E3/uL [facility] ACCOUNT BILL Basophils Absolute 0.0 0.0 - 0.2 x10E3/uL [facility] ACCOUNT BILL Immature Granulocytes 0 % [facility] ACCOUNT BILL Immature Granulocytes Absolute 0.0 0.0 - 0.1 x10E3/uL [facility] ACCOUNT BILL nRBC NOT NEEDED [facility] ACCOUNT BILL Comment:Ancillary determined the test is not needed Comment Hematology NOT NEEDED [facility] ACCOUNT BILL Comment: FASTING Ancillary determined the test is not needed Blood BLOOD SPECIMEN / Unknown 03/29/2017 11:02 AM CDT 03/29/2017 Narrative Resulting Agency Comment [facility] [address] ??[facility] [phone] Avery Hidalgo DO LAB - HEMATOLOGY ORD ERABLES Performing Organization Address City/[facility] Co de Phone Number [facility] ACCOUNT BILL [address] [place] [address] * (ABNORMAL) LIPID PROFILE (03/29/2017 11:02 AM CDT) Cholesterol 209(H) 100 - 199 mg/dL [facility] ACCOUNT BILL Triglycerides 110 0 - 149 mg/dL [facility] ACCOUNT BILL HDL Cholesterol 57 >39 mg/dL [facility] ACCOUNT BILL VLDL Calculated 22 5 - 40 mg/dL [facility] ACCOUNT BILL LDL Calculated 130(H) 0 - 99 mg/dL [facility] ACCOUNT BILL Comment NOT NEEDED [facility] ACCOUNT BILL Comment: FASTING Ancillary determined the test is not needed Blood BLOOD SPECIMEN / Unknown 03/29/2017 11:02 AM CDT 03/29/2017 Narrative Resulting Agency Comment [facility] [address] ??[facility] [phone] Avery Hidalgo DO LAB - CHEMISTRY TIFFANIE WILLS Performing Organization Address [facility] de Phone Number [facility] ACCOUNT BILL [address] [place] [address] documented in this encounter Visit Diagnoses Diagnosis Seasonal allergic rhinitis due to pollen- Primary Anxiety and depression Dysthymic disorder Tinea versicolor Pityriasis versicolor Vitamin D deficiency disease Unspecified vitamin D deficiency documented in this encounter Care Teams Electrician Sound Relationship Specialty Start Date End Date Avery Hidalgo DO PCP - General Family Medicine 08/26/15 03/25/20 documented as of this encounter
--- OUTSIDE RECORDS SUMMARY | 2024-07-30 14:07 | XMS_ITS | Encounter Summary ---
Author Organization [facility] Address [address] [place] [address] Care Team Providers Care Cotton Agent Name Role Phone Molly Alvarado MD Primary Care Provider Reason for Visit * Auth/Cert - Closed Specialty Diagnoses / Procedures Referred By Contac t Referred To Contact Diagnoses Other symptoms involving digestive system(787.99) Loss of weight Procedures COLONOSCOPY DIAGNOSTIC ESOPHAGOGASTRODUODENOSCOPY (EGD) Referral ID Status Reason Start Date Expiration Date Visits Re quested Visits Authorized [id number] Closed 1 1 Encounter Details Date Type Department Care Team (Late st Contact Info) Description 04/19/2013 10:30 AM CDT - 04/19/2013 11:30 AM CDT Surgery [facility] - Endoscopy Surgery [address] [place] [address] Josiah Breen MD [address] [facility] [address] [place] [address] COLONOSCOPY DIAGNOSTIC Surgery Details Date/Time Status Location OR Service Patient Class Case Class Case Type Trauma Case? 04/19/2013 10:30 AM [facility] Gastroenterology Surgery Day Care Elective > 5 days Panel 1 Procedure LRB Anes Op Region Wound Class Comments COLONOSCOPY DIAGNOSTIC MAC COLONOSCOPY & EGD ESOPHAGOGASTRODUODENOSCOPY ( EGD) DIAGNOSTIC MAC Clean Contaminated ESOPHAGOGASTRODUODENOSCOPY ( EGD) BIOPSY MAC COLONOSCOPY BIOPSY (ANY METHOD) MAC Surgeon Surgeon Role Service Panel Josiah Breen MD Primary Gastroenterology 1 Special Needs PT.H LATEX ALLERGY PER BARBRA documented in this encounter Social History Tobacco Use Types Packs/Day Years Used Date Smoking Tobacco: Never Smokeless Tobacco: Never Alcohol Use Standard Drinks/Week Comments Yes 0 (1 standard drink = 0.6 oz pur e alcohol) social - rare Sex and Gender Information Value Date Recorded Sex Assigned at Not on file Gender Identity Female 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 section 04/03/2011 ??? [place] tooth extraction Allergies Allergen Reactions ??? Tetanus Toxoid Anaphylaxis ??? Reglan (Metoclopramide) Made her insane , got shaky ??? Latex Itching Red and swollen Prescriptions prior to admission Medication Status Sig Dispense Refill ??? famotidine (PEPCID) 40 MG tablet Active Take 40 mg by mouth once daily. ??? norethindrone-ethinyl estradiol (LOESTRIN 1.5, ,) 1.5-30 MG-MCG tablet Active Take 1 [...] multiple Osei Archer MD 0.2 mL at 04/19/13 09 Physcial Exam: General appearance: alert, cooperative, no [...] Negative Negative, Uninterpretable 3 5:34 PM CDT [facility] C difficile Toxin A + B Negative Negative, Uninterpretable 3 5:34 PM CDT [facility] Interpretation C difficile Negative for toxigenic C. difficile Negative for toxigenic C. difficile 3 5:34 PM CDT [facility] Stool STOOL SPECIMEN / Unknown Collection / Unknown 04/19/2013 10:59 AM CDT 04/19/2013 12:42 PM CDT Josiah Breen MD LAB - MICROBIOLOGY O RDERABLES [facility] [address] [place] [address], [facility] * GIARDIA CRYPTOSPORIDIUM ANTIGEN PANEL (04/19/2013 10:59 AM CDT) Giardia Antigen DFA Negative Negative 04/22/2013 2:06 PM CDT [facility] Cryptosporidium Antigen DFA Negative Negative 04/22/2013 2:06 PM CDT [facility] Stool STOOL SPECIMEN / Unknown Collection / Unknown 04/19/2013 10:59 AM CDT 04/19/2013 12:42 PM CDT Narrative [facility] - 04/22/2013 2:06 PM CDT A single O and P exam may be insufficient to diagnose an intestinal parasite infection. Additional specimens are recommended if patient remains symptomatic. CAUTION: Cyclospora will not be detected by routine Ova and Parasite testing. A separate lab order, Parasitology stain by Modified Acid Fast, must be placed specifically for Cyclospora which will be sent to [facility] Specimen must be collected in 10% formalin. CAUTION: Cyclospora will not be detected by routine Ova and Parasite testing. A separate lab order, Parasitology Stain by Modified Acid Fast, must be placed specifically for Cyclospora which will be sent to [facility] Specimen must be collected in 10% formalin. Josiah Breen MD LAB - MICROBIOLOGY O MEMO Performing Organization Address [facility] Co de Phone Number [facility] [address] * CULTURE STOOL+SHIGA-LIKE TOXIN (04/19/2013 10:59 AM CDT) Culture No growth Salmonella, Shigella, Campylobacter , E. coli 0157:h7 or Yersinia 04/21/2013 8:30 AM CDT [facility] Culture Shiga Toxin Negative 04/21/2013 8:30 AM CDT [facility] Stool STOOL SPECIMEN / Unknown Collection / Unknown 04/19/2013 10:59 AM CDT 04/19/2013 12:42 PM CDT Josiah Breen MD LAB - MICROBIOLOGY O MEMO Performing Organization Address City/[facility] Co de Phone Number [facility] [address] * EGD (04/19/2013 10:40 AM CDT) Report [...] RN, Antonietta Hughes ? RUBÉN Adan Referring : ?Molly Alvarado MD (Referring MD) Medicines: ? [...] - Perform a colonoscopy today. ? Josiah rBeen MD 04/19/2013 11:04 AM This report has been signed electronically. Number of Addenda: 0 Note Initiated On: 04/19/2013 10:40 AM Estimated Blood Loss: ? Estimated blood loss: none. [facility] 04/19/2013 10:4 0 AM CDT Narrative [facility] - 04/19/2013 11:06 AM CDT Procedure Note Josiah Breen MD - 04/19/2013 11:06 AM CDT Josiah Breen MD GI PROCEDURE ORDERAB LES [facility] * ENDOSCOPY, COLON, SCREENING (04/19/2013 10:40 [...] MD, Emmy Freeman RN, Antonietta Hughes ? Loco RN, Grupo Cruz [...] Blood Loss: ? Estimated blood loss: none. [facility] 04/19/2013 10:4 0 AM CDT Narrative [facility] - 04/19/2013 11:09 AM CDT Procedure Note Josiah Breen MD - 04/19/2013 11:09 AM CDT Josiah Breen MD GI PROCEDURE ORDERAB LES [facility] * GROSS + MICRO EXAM (STL) (04/19/2013 10:40 AM CDT) Case Report Surgical Pathology Report ? Case: [id number] ? -------- Authorizing Provider: ??Josiah Breen MD ? Ordering Provider: ?? Josiah R Aymerich, MD ? Ordering Location: ? [facility] ? Collected: ? 04/19/2013 10:40 AM ? Pathologist: ? Yuni Younger, MD ?Received: ?04/19/2013 12:46 PM ?Signed Out: ?04/20/2013 11:43 AM (Final) ? Specimens: ?? A) - Duodenal Biopsy ? B) - Esophageal Biopsy, distal ? C) - Colon Biopsy, terminal ileum ? D) - Colon Biopsy, random ? 04/20/2013 11:43 AM [facility] Final Diagnosis Small intestine, duodenum, endoscopic [...] Reactive lymphoid aggregates KL/scs 04/20/2013 11:43 AM [facility] Gross Description Received in formalin are [...] cassette labeled D1. DYT/lma 04/20/2013 11:43 AM [facility] Microscopic Description Histologic sections of the [...] or malignancy. KL/scs 04/20/2013 11:43 AM CDT [facility] Synoptic Report 04/20/2013 11:43 AM CDT [facility] Pathology/Cytology DUODENAL BIOPSY SPECIMEN / Unknown [...] Breen MD LAB - PATHOLOGY/CYTO LOGY ORDERABLES [facility] [address] [id number] * HCG URINE QUALITATIVE - POINT OF CARE (IP) (04/19/2013 10:10 AM CDT) HCG Qual Urine Negative Negative [facility] POCT TESTING QC Verified yes Yes [facility] POC T TESTING Urine specimen (specimen) URINE / Unknown 04/19/2013 10:10 AM CDT Josiah Breen MD LAB - POINT OF CARE ORDERABLES [facility] POCT TEST[facility] [address] [address] documented in this encounter Visit Diagnoses Diagnosis Diarrhea- Primary Other symptoms involving digestive system(787.99) Other symptoms involving digestive system Loss of weight documented in this encounter Administered Medications Inactive [...] ($ New Bag/Syri nge - Provider: Scarlett Villa RN) documented in this encounter Care Teams Cotton Agent Relationship Specialty Start Date End Date Molly Alvarado MD PCP - General Family Medicine 12/05/11 08/25/15 documented as of this encounter
--- OUTSIDE RECORDS SUMMARY | 2024-07-30 14:07 | XMS_ITS | Encounter Summary ---
Author Organization [facility] Address [address] [place] [address] Care Team Providers Care Steel Inspector Name Role Phone Molly Alvarado MD Primary Care Provider Encounter Details Date Type Department Care Team (Late st Contact Info) Description 11/08/2013 4:20 PM CDT - 11/08/2013 4:44 PM CDT Hospital Encounter [facility] [address] [place] [address] Tana Sosa, CHEMICAL ENGINEERING INTERN-[facility] [address] [facility] [address], [place] [address] Discharge Disposition: Home or Self Care Social History Tobacco Use Types Packs/Day Years Used Date Smoking Tobacco: Never Smokeless Tobacco: Never Alcohol Use Standard Drinks/Week Comments Yes 0 (1 standard drink = 0.6 oz pur e alcohol) social - rare Sex and Gender Information Value Date Recorded Sex Assigned at Not on file Gender Identity Female 08/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 Sexual Orientation Not on file documented as of this encounter Last Filed Vital Signs Vital Sign Reading Time Taken Comments Blood Pressure 121/87 11/08/2013 4:29 PM CDT Pulse 114 11/08/2013 4:29 PM CDT Temperature 36.8 ??C (98.2 ??F) 11/08/2013 4:29 PM CD T Respiratory Rate 20 11/08/2013 4:29 PM CDT Oxygen Saturation 100% 11/08/2013 4:29 PM CDT Inhaled Oxygen Concentration - - Weight 42.6 kg (94 lb) 11/08/2013 4:29 PM CDT Height 156.2 cm (5' 1.5 ) 11/08/2013 4:29 PM CDT Body Mass Index 17.47 11/08/2013 4:29 PM CDT documented in this encounter Discharge Instructions * Patient Instructions* Sheila Tana Granda, CHEMICAL ENGINEERING INTERN-AUTOMOBILE SALES CONSULTANT - 11/08/2013 5:25 PM CDT Bacterial Pneumonia Levaquin once daily for 7 days Rest Fluids Humidity Tylenol or Motrin as needed for fever. Tessalon TID as needed for cough Albuterol 1-2 puffs every 4-6 hrs as needed for cough, shortness of breath, or wheezing Back up method Follow-up with Dr. Alvarado in 3 days if failing to improve WHAT YOU SHOULD KNOW: Bacterial pneumonia is a lung infection caused by bacteria. It makes your lungs inflamed, which means they cannot work well. Bacterial pneumonia germs are easily spread when an infected person coughs, sneezes, or has close contact with others. INSTRUCTIONS: Medicines: ?? Antibiotics: This medicine will help fight or prevent an infection. Take your antibiotics until they are gone, even if you feel better. ?? Expectorants: Expectorant medicine helps thin your sputum (mucus from the lungs). When sputum isthin, it may be easier for you to cough it up and spit it out. This may make your breathing easier,and may help you get better faster. ?? Bronchodilators: You may need bronchodilators to help open the air passages in your lungs, and help you breathe more easily. ?? Antipyretics: This medicine is given to decrease a fever. ?? Steroid medicines: Steroid medicine may help open your air passages so you can breathe easier. Do not stop taking this medicine without your primary healthcare provider's okay. Stopping on your own can cause problems. ?? Inhalers and nebulizers: Your caregiver may give you one or more inhalers to help you breathe easier and cough up mucus. An inhaler gives your medicine in a mist form so that you can breathe it into your lungs. This type of medicine may also be given using a nebulizer, or breathing treatment machine . Using inhalers and nebulizers the right way takes practice. Ask your caregiver for more information about using inhalers and nebulizers correctly. ?? Take your medicine as directed: Call your primary healthcare provider if you think your medicineis not helping or if you have side effects. Tell him if you are allergic to any medicine. Keep a list of the medicines, vitamins, and herbs you take. Include the amounts, and when and why you take them. Bring the list or the pill bottles to follow-up visits. Carry your medicine list with you in case of an emergency. Breathing treatments and support: ?? Deep breathing and coughing: You may need to breathe deeply and cough often. Deep breathing helps open the air passages in your lungs. Coughing helps to bring up mucus from your lungs. Sit up regularly or get out of bed to help you breathe more easily and get better faster. ?? Oxygen: You may need extra oxygen to help you breathe easier. It may be given through a plastic mask over your mouth and nose. It may be given through a nasal cannula, or prongs, instead of a mask. A nasal cannula is a pair of short, thin tubes that rest just inside your nose. Tell your caregiver if your nose gets dry or if you get redness or sores on your skin. Never smoke or let anyone else s moke in the same room while your oxygen is on. Doing so may cause a fire. Follow up with your primary healthcare provider as directed: Write down your questions so you remember to ask them in your follow-up visits. Self-care: ?? Avoid the spread of germs: Wash your hands often with soap and water. Use gel hand cleanser whenthere is no soap and water available. Do not touch your eyes, nose, or mouth unless you have washedyour hands first. Cover your mouth when you cough. Cough into a tissue or your shirtsleeve so you do not spread germs from your hands. If you are sick, stay away from others as much as possible. ?? Drink enough liquids: Men 19 years old or older should drink about 3 liters of liquid each day (close to thirteen 8 ounce cups). Women 19 years old or older should drink about 2.2 liters of liquideach day (close to nine 8 ounce cups). Liquids help thin your mucus, which may make it easier for you to cough it up. While you are sick, do not drink alcohol. ?? Get vaccinated: The pneumococcal vaccine is given to adults aged 65 years or older to prevent pneumococcal disease, such as pneumonia. People aged 19 to 64 years at high risk for pneumococcal disease also should get the pneumococcal vaccine. It may need to be repeated 5 years later. Get an influenza (flu) vaccine every year as soon as it becomes available. ?? Quit smoking: Do not smoke, and do not allow others to smoke around you. Smoking increases your risk of lung infections. Smoking also makes it harder for you to get better after a lung infection. Talk to your caregiver if you need help to quit smoking. ?? Rest: Rest when you feel it is needed. Slowly start to do more each day. Return to your daily activities as directed. Contact your primary healthcare provider if: ?? You have fever and chills. ?? Your cough comes back, does not go away, or you begin to cough up blood. ?? You feel very tired or weak, or are sleeping more than usual. ?? You cannot eat or have loss of appetite, nausea (upset stomach), or vomiting (throwing up). ?? You are urinating less, or not at all. ?? Your heart or pulse beats more than 100 times in 1 minute. ?? You have questions about your condition or care. Return to the emergency department if: ?? Your symptoms do not get better, or get worse. ?? You are confused and cannot think clearly. ?? You have more trouble breathing, or your breathing seems faster than normal. ?? Your lips or fingernails turn orellana or blue. Copyright ?? 2012. [employer]. All rights reserved. Information is for End User's use only andmay not be sold, redistributed or otherwise used for commercial purposes. The above information is an educational coordinator only. It is not intended as medical advice for individual conditions or treatments. Talk to your doctor, nurse or pharmacist before following any medical regimen to see if it is safe and effective for you. documented in this encounter Medications at Time of Discharge Medication Sig Dispensed Refills Start Date End Date famotidine (PEPCID) 40 MG tablet Take 40 mg by mouth once daily. 12/04/2015 norethindrone-ethinyl estradiol (LOESTRIN 1.5/30, 21,) 1.5-30 MG-MCG tabletIndications:Routine general medical examination at a health care facility Take 1 Tab by mouth once daily. 03/13/2014 documented as of this encounter Progress Notes * Tana Sosa, KIMBERLY-AUTOMOBILE SALES CONSULTANT - 11/08/2013 4:45 PM CDT Provider contact with the patient: 11/08/2013 16:45 [place] [id number] [facility] History No chief complaint on file. Cough, Back Pain, Fever HPI 28 yo CF here for evaluation of cough, fever, mid-back pain only on left side, for the past 3-4 days. Reports temp was not taken prior to (was at work), after taking tylenol 1gram-99.4. 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 Fatigue, soreness-does not feel like body aches associated with flu,unknown wheezing, SOB associated with coughing. Denies post-tussive emesis. Yellow/brown sputum. Cough is persistent. 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 Denies sick contacts. + flu vaccine. Denies resolution with claritin/sudafed. Past Medical History Diagnosis Date ??? Generalized anxiety disorder ??? Depressive disorder, not elsewhere classified ??? Vaginal vestibulitis Past Surgical History Procedure Date ??? section 04/03/2011 ??? [place] tooth extraction ??? 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 Smoking status: Never Smoker ??? Smokeless tobacco: Never Used ??? Alcohol Use: Yes social - rare ??? Drug Use: No ??? Sexually Active: Yes -- Male partner(s) Other Topics Concern ??? Not on file Social History Narrative Merged History Encounter Review of Systems Review of Systems Constitutional: Positive for fever, chills and malaise/fatigue. HENT: Positive for sore throat (with coughing). Negative for ear pain and congestion. Respiratory: Positive for cough, sputum production and shortness of breath. Negative for hemoptysisand wheezing. Cardiovascular: Negative. Gastrointestinal: Negative. Genitourinary: Negative. Musculoskeletal: Positive for back pain. Neurological: Positive for headaches (associated with vocdr-[id number]-yxmyvfiz with tylenol). Psychiatric/Behavioral: Negative. Physical Exam BP 121/87 Pulse 114 Temp 98.2 ??F (Oral) Resp 20 Ht 1.562 m (5' 1.5 ) Wt 42.638 kg (94 lb) BMI 17.48 kg/m2 SpO2 100% Physical Exam Constitutional: She is oriented to person, place, and time and well-developed, well-nourished, and in no distress. Vital signs are normal. Cough stopped intermittently during initial interview HENT: Right Ear: Tympanic membrane and ear canal normal. Left Ear: Tympanic membrane and ear canal normal. Nose: Mucosal edema and rhinorrhea present. Right sinus exhibits no maxillary sinus tenderness and no frontal sinus tenderness. Left sinus exhibits no maxillary sinus tenderness and no frontal sinus tenderness. Mouth/Throat: Uvula is midline, oropharynx is clear and moist and mucous membranes are normal. Cardiovascular: Normal rate, regular rhythm and normal heart sounds. Pulmonary/Chest: Effort normal. She has decreased breath sounds (diminished bibasilarly). She has no wheezes. She has no rhonchi. She has rales in the left lower field. Neurological: She is oriented to person, place, and time. Skin: Skin is warm and dry. Psychiatric: Mood, memory, affect and judgment normal. Did not want to call off Medications Current Outpatient Prescriptions Medication Sig Dispense Refill ??? levofloxacin (LEVAQUIN) 500 MG tablet 1 Tab once daily for 7 doses. 7 Tab 0 ??? albuterol HFA (PROVENTIL;VENTOLIN;PROAIR) 108 (90 BASE) MCG/ACT inhaler Inhale 1 Puff by mouth every 4 hours as needed (1-2 puffs q 4-6 hrs prn cough sob whz). 1 Inhaler 0 ??? benzonatate (TESSALON PERLES) 100 MG capsule 1 Cap 3 times daily as needed for Cough for 15 doses. 15 Cap 0 ??? famotidine (PEPCID) 40 MG tablet Take 40 mg by mouth once daily. ??? norethindrone-ethinyl estradiol (LOESTRIN 1.5/, 21,) 1.5-30 MG-MCG tablet Take 1 Tab by mouthonce daily. Procedures Procedures CXR:Comparison is made with 03/02/13. The heart is normal is size. There is new patchy infiltrate inthe left upper lobe. The right lung is clear. IMPRESSION Left upper lobe infiltrate Signed by: MARYC. NHAN MD on MonNov 08, 2013 05:06:00 PM CDT Neb: improved aeration, crackles more distinct in LML-LLL. EKG Interpretation Lab/SPO2 Interpretation Results for orders placed during the hospital encounter of 11/08/13 HCG URINE QUALITATIVE - POCT (IP) URGENT CARE Component Value Range HCG Qual Urine Negative Negative QC Verified Yes Yes Progress Notes UC Course Medical Decision Making Orders Placed This Encounter ??? XR CHEST PA AND LATERAL ??? HCG URINE QUALITATIVE - POCT (IP) URGENT CARE ??? albuterol (PROVENTIL;VENTOLIN) (5 MG/ML) 0.5% nebulizer solution 2.5 mg ??? levofloxacin (LEVAQUIN) 500 MG tablet ??? albuterol HFA (PROVENTIL;VENTOLIN;PROAIR) 108 (90 BASE) MCG/ACT inhaler ??? benzonatate (TESSALON PERLES) 100 MG capsule Clinical Impression Final diagnoses: Bacterial pneumonia (Primary) Fever Cough Levaquin once daily for 7 days Rest Fluids Humidity Tylenol or Motrin as needed for fever. Tessalon TID as needed for cough Albuterol 1-2 puffs every 4-6 hrs as needed for cough, shortness of breath, or wheezing Back up method Follow-up with Dr. Alvarado in 3 days if failing to improve documented in this encounter Miscellaneous Notes * Miscellaneous Scans - Document, Scanned - 11/13/2013 9:36 PM CDT * Addendum Note - Uyen Becker [facility] - 11/09/2013 12:41 PM CDTEncounter addended by: AALIYAH Rincon on: 11/09/2013 12:41 PM
Documentation filed: Charges VN documented in this encounter Plan of Treatment Not on file documented as of this encounter Procedures Procedure Name Priority Date/Time Associated Diagnosis Comments HCG URINE QUALITATIVE - POCT (IP) URGENT CARE Routine 11/08/2013 4:48 PM CDT documented in this encounter Results [...] clear. IMPRESSION Left upper lobe infiltrate Tana GLYNN DIAGNOSTI C IMAGING ORDERABLES * HCG URINE QUALITATIVE - POCT (IP) URGENT CARE (11/08/2013 4:48 PM CDT) HCG Qual Urine Negative Negative [facility] POCT TESTING QC Verified Yes Yes [facility] POC T TESTING Urine specimen (specimen) URINE / Unknown 11/08/2013 4:48 PM CDT Tana Granda Sheila CHEMICAL ENGINEERING INTERN-AUTOMOBILE SALES CONSULTANT LAB - POI NT OF CARE ORDERABLES [facility] POCT TESTING [address] [place] [address] documented in this encounter Visit Diagnoses Diagnosis Bacterial pneumonia- Primary Bacterial pneumonia, unspecified Fever Fever, unspecified Cough Fever Fever, unspecified Cough documented in this encounter Administered Medications Inactive Administered Medications - up to 3 most recent administrations Medication Order MAR Action Action Date Dose Rate Site albuterol (PROVENTIL;VENTOLIN) (5 MG/ML) 0.5% nebulizer solution 2.5 mg 2.5 mg, Inhalation, ONCE, 1 dose, On Mon11/08/13 at 1745, Dilute prior to administration via nebulization. $ Given 11/08/2013 5:20 PM CDT 2.5 mg documented in this encounter Care Teams Steel Inspector Relationship Specialty Start Date End Date Molly Alvarado MD PCP - General Family Medicine 12/05/11 08/25/15 documented as of this encounter
--- OUTSIDE RECORDS SUMMARY | 2024-07-30 14:08 | XMS_ITS | Encounter Summary ---
Author Organization [facility] Address [address] [place] [address] Care Team Providers Care Electro Mechanical Technologist Name Role Phone Unavailable Primary Care Provider Unavailabl e Encounter Details Date Type Department Care Team (Late st Contact Info) Description 07/23/2010 11:15 AM PLANT ECOLOGIST - 07/23/2010 11:59 PM PLANT ECOLOGIST Hospital Encounter [facility] [address] [place] [address] Willi Huff Jr., [place] [address] Laboratory Discharge Disposition: Home or Self Care Social History Tobacco Use Types Packs/Day Years Used Date Smoking Tobacco: Never Assessed Sex and Gender Information Value Date Recorded Sex Assigned at Not on file Gender Identity Female 08/19/2022 7:56 AM PLANT ECOLOGIST Sexual Orientation Not on file documented as of this encounter Miscellaneous Notes * Miscellaneous Scans - Document, Scanned - 07/27/2010 5:46 PM PLANT ECOLOGIST * Miscellaneous Scans - Document, Scanned - 07/27/2010 5:46 PM PLANT ECOLOGIST documented in this encounter Plan of Treatment Not on file documented as of this encounter Procedures Procedure Name Priority Date/Time Associated Diagnosis Comments CBC W AUTO DIFFERENTIAL [place] 07/23/2010 11:21 AM PLANT ECOLOGIST GLUCOSE [place] 07/23/2010 11:21 AM PLANT ECOLOGIST TSH [place] 07/23/2010 11:21 AM PLANT ECOLOGIST IRON + TRANSFERRIN PANEL [place] 07/23/2010 11:21 AM PLANT ECOLOGIST HCG BLOOD QUALITATIVE [place] 07/23/2010 11:21 AM PLANT ECOLOGIST documented in this encounter Results * TSH (07/23/2010 11:21 AM PLANT ECOLOGIST) TSH 2.437 0.55 - 4.78 uIU/ml [facility] BLOOD SPECIMEN / Unknown 07/23/2010 11:21 AM PLANT ECOLOGIST 07/23/2010 11:21 AM PLANT ECOLOGIST Willi Huff Jr., MD LAB - CHEMISTRY ORDERABLES Performing Organization Address City/State/[facility] Co de Phone Number [facility] [address] [place] [address] * (ABNORMAL) CBC W AUTO DIFFERENTIAL (07/23/2010 11:21 AM PLANT ECOLOGIST) WBC 8.4 4.0 - 10.0 K/CUMM [facility] RBC 4.82 3.80 - 5.80 M/CUMM [facility] Hemoglobin 14.4 12.0 - 16.0 gm/dl [facility] Hematocrit 40.1 37.0 - 47.0 % [facility] MCV 83.2 80.0 - 100.0 fl [facility] MCH 29.9 26.0 - 34.0 pg [facility] MCHC 35.9 31.0 - 37.0 gm/dl [facility] Platelet Count 318 150 - 400 K/CUMM [facility] RDW 12.2 11.5 - 14.5 % [facility] Granulocytes % 40.1(L) 50 - 70 % [facility] Lymphocytes % 48.3(H) 20 - 40 % [facility] Monocytes % 9.2 0 - 12 % [facility] Eosinophils % 1.9 0 - 5 % [facility] Basophils % 0.4 0 - 2 % [facility] Granulocytes Absolute 3.37 2.00 - 7.00 x1000/cmm [facility] Lymphocytes Absolute 4.06(H) 0.80 - 4.00 x1000/cmm [facility] Monocytes Absolute 0.77 0.00 - 1.20 x1000/cmm [facility] Eosinophils Absolute 0.16 0.00 - 0.50 x1000/cmm [facility] Basophils Absolute 0.03 0.00 - 0.20 x1000/cmm [facility] BLOOD SPECIMEN / Unknown 07/23/2010 11:21 AM PLANT ECOLOGIST 07/23/2010 11:21 AM PLANT ECOLOGIST Willi Huff Jr., MD LAB - HEMATOLOGY ORDERABLES Performing Organization Address [facility] de Phone Number [facility] [address] [place], [place] [id number] * GLUCOSE (07/23/2010 11:21 AM PLANT ECOLOGIST) Pathologist [facility] Glucose 85 65 - 105 mg/dl [facility] BLOOD SPECIMEN / Unknown 07/23/2010 11:21 AM PLANT ECOLOGIST 07/23/2010 11:21 AM PLANT ECOLOGIST Willi Huff Jr., MD LAB - CHEMISTRY ORDERABLES Performing Organization Address [facility] Phone Number [facility] [address] [place] [address] * IRON + TRANSFERRIN PANEL (07/23/2010 11:21 AM PLANT ECOLOGIST) Pathologist [facility] Iron 139.4 50 - 170 ug/dl [facility] Transferrin 256.7 250 - 380 mg/dl [facility] TIBC Calculated 321 250 - 450 ug/dl [facility] Iron Saturation % 43 20 - 55 % [facility] BLOOD SPECIMEN / Unknown 07/23/2010 11:21 AM PLANT ECOLOGIST 07/23/2010 11:21 AM PLANT ECOLOGIST Willi Huff Jr., MD LAB - CHEMISTRY ORDERABLES Performing Organization Address [facility] de Phone Number [facility] [address] [place] [phone] * HCG BLOOD QUALITATIVE (07/23/2010 11:21 AM PLANT ECOLOGIST) Pathologist [facility] HCG Qual Serum Negative SEE BELOW [facility] Comment: Normal, Negative ? Pos, Sensitivity ? 25 MIU/ML BLOOD SPECIMEN / Unknown 07/23/2010 11:21 AM PLANT ECOLOGIST 07/23/2010 11:21 AM PLANT ECOLOGIST Willi Huff Jr., MD LAB - CHEMISTRY ORDERABLES Performing Organization Address City/State/[facility] Co de Phone Number [facility] [address] [place] [address] documented in this encounter Visit Diagnoses Not on filedocumented in this encounter
--- OUTSIDE RECORDS SUMMARY | 2024-07-30 14:08 | XMS_ITS | Encounter Summary ---
Author Organization [facility] Address [address] [facility] [place] [address] Care Team Providers Care Industrial Roof Plumber Name Role Phone Unavailable Primary Care Provider Unavailabl e Encounter Details Date Type Department Care Team (Latest Contact Info) Description 02/05/2008 6:16 AM CDT - 02/05/2008 11:59 PM CDT Hospital Encounter [facility] [address] [place] [address] Covert, [place] [address] [place] [address] Discharge Disposition: Home or Self Care Social History Tobacco Use Types Packs/Day Years Used Date Smoking Tobacco: Never Assessed Sex and Gender Information Value Date Recorded Sex Assigned at Not on file Gender Identity Female 08/19/2022 7:56 AM TRANSPORT MEDIC Sexual Orientation Not on file documented as of this encounter Plan of Treatment Not on file documented as of this encounter Visit Diagnoses Not on filedocumented in this encounter
--- OUTSIDE RECORDS SUMMARY | 2024-07-30 14:08 | XMS_ITS | Encounter Summary ---
Author Organization [facility] Address [address] [place] [address] Care Team Providers Care Patcher Wood Welder Name Role Phone Daja Orr MD Primary Care Provider [phone] Reason for Referral * - Closed Specialty Diagnoses / Procedures Referred By Contac t Referred To Contact Diagnoses Nausea Belching Procedures US ABDOMEN COMPLETE Cherelle Mason APRN-CNP [id number] [place] [address] Referral ID Status Reason Start Date Expiration Date Visits Re quested Visits Authorized [id number] Closed 08/02/2011 01/29/2012 1 1 ABORATIVE TEACHER Reason for Visit * Reason Comments Nausea 11 days Pain Abdominal 11 days Encounter Details Date Type Department Care Team (Late st Contact Info) Description 08/02/2011 1:30 PM COLLABORATIVE TEACHER Office Visit [facility] - Family Medicine [address] [place] [address] Cherelle Mason APRN-AMERICAN BOARD CERTIFIED ORTHOTIST [id number] [facility] [employer] [address] [place] [address] Nausea (Primary Dx); Belching Social History Tobacco Use Types Packs/Day Years Used Date Smoking Tobacco: Never Alcohol Use Standard Drinks/Week Comments Yes 0 (1 standard drink = 0.6 oz pur e alcohol) social Sex and Gender Information Value Date Recorded Sex Assigned at Not on file Gender Identity Female 08/19/2022 7:56 AM COLLABORATIVE TEACHER Sexual Orientation Not on file documented as of this encounter Last Filed Vital Signs Vital Sign Reading Time Taken Comments Blood Pressure 110/60 08/02/2011 1:14 PM COLLABORATIVE TEACHER Pulse 76 08/02/2011 1:13 PM COLLABORATIVE TEACHER Temperature 36.7 ??C (98.1 ??F) 08/02/2011 1:26 PM CS T Respiratory Rate 16 08/02/2011 1:26 PM COLLABORATIVE TEACHER Oxygen Saturation - - Inhaled Oxygen Concentration - - Weight 43.5 kg (96 lb) 08/02/2011 1:12 PM COLLABORATIVE TEACHER Height 154.9 cm (5' 1 ) 08/02/2011 1:12 PM COLLABORATIVE TEACHER Body Mass Index 18.14 08/02/2011 1:12 PM COLLABORATIVE TEACHER documented in this encounter Patient Instructions * Patient Instructions* Cherelle Mason FNP - 08/02/2011 1:31 PM COLLABORATIVE TEACHER We are checking an ultrasound of the abdomen and will call with results. We are checking labs and will call with results. Go to [address] and be prepared to give them a urinalysis. Depending upon labs we may order new medication. ABORATIVE TEACHER documented in this encounter Progress Notes * Cherelle Mason FNP - 08/04/2011 4:10 PM CSTQuick Note: No uti. ABORATIVE TEACHER * Cherelle Mason FNP - 08/03/2011 4:07 PM CSTQuick Note: Call to report that the labs are normal. US of abdomen normal. Needs HIDA scan. ABORATIVE TEACHER * Cherelle Mason FNP - 08/03/2011 4:05 PM CST Call to report that the labs are normal. US of abdomen normal. Needs HIDA scan. ABORATIVE TEACHER * Cherelle Mason FNP - 08/02/2011 4:17 PM CST SUBJECTIVE: Cata Urena is a 26 y.o. female here for: Chief Complaint Patient presents with ??? Nausea 11 days ??? Pain Abdominal 11 days Past Medical History Diagnosis Date ??? Generalized anxiety disorder ??? Depressive disorder, not elsewhere classified ??? Vaginal vestibulitis HPI: Nausea and belching for 11 days. Denies any pain in the abdomen. LMP was 07-20-2011. She did a home test that was negative. No vomiting, no diarrhea. Tried pepto bismol and used her pepcid witout any improvement. REVIEW OF SYSTEMS: HEENT: Denies any problems. Cv: Denies chest pain, edema, palpitations. PULM:Denies cough, shortness of breath, wheezing. GI: nausea and belching without vomiting, abdominal pain, diarrhea-for 11 days. MS:Denies joint pain or swelling. :Denies urinary burning, frequency, hematuria. NEURO:Denies dizziness, lightheadedness, headache, numbness or tingling. Family and social history on file and reviewed. Current Outpatient Prescriptions on File Prior to Visit Medication Sig Dispense Refill ??? levonorgestrel-ethinyl estradiol (SEASONALE) tablet once daily. ??? multivitamin daily (THERAGRAN) tablet once daily. ??? calcium carbonate (TUMS) 500 MG chew tablet Take 1 Tab by mouth as needed. ??? famotidine (PEPCID) 20 MG tablet Take 20 mg by mouth once daily. Allergies Allergen Reactions ??? Tetanus Toxoid Anaphylaxis ??? Tetanus Toxoid Anaphylaxis ??? Latex Itching Red and swollen History Substance Use Topics ??? Smoking status: Never Smoker ??? Smokeless tobacco: Not on file ??? Alcohol Use: Yes social . OBJECTIVE: Vitals: 08/02/11 1312 08/02/11 1313 08/02/11 1314 08/02/11 1326 BP: 110/60 Pulse: 76 Temp: 98.1 ??F Resp: 16 Weight: 96 lb (43.545 kg) Body mass index is 18.14 kg/(m^2). General appearance - alert, well appearing, and in no distress Mental Status - alert, oriented to person, place, and time ENT - ENT exam normal, no neck nodes or sinus tenderness Neck - supple, no significant adenopathy, no bruits Lungs - clear to auscultation, no wheezes, rales or rhonchi, symmetric air entry Heart - normal rate, regular rhythm, normal S1, S2, no murmurs, rubs, clicks or gallops Abdomen - soft, nontender to palpation but palpation of the right upper and lower quadrants cause increase in nausea nad burping, nondistended, no masses or organomegaly, negative psoas and obturatorsign. Extremities - peripheral pulses normal, no pedal edema, no clubbing or cyanosis ASSESSMENT Encounter Diagnoses Name Primary? Nausea Yes ??? Belching PLAN: Orders Placed This Encounter ??? CULTURE URINE COMPREHENSIVE (PO REF LAB) ??? US ABDOMEN COMPLETE Standing Status: Future Number of Occurrences: 1 Standing Expiration Date: 08/01/2012 Order Specific Question: Is the patient ? Answer: No ??? AMYLASE BLOOD ??? CBC W AUTO DIFFERENTIAL ??? COMPREHENSIVE METABOLIC PANEL ??? LIPASE BLOOD ??? LIPID PROFILE ??? HELICOBACTER PYLORI ANTIBODIES (IGG,IGA,IGM) (PO REF LAB) ??? TSH ??? T4 FREE ??? URINALYSIS ROUTINE AUTO ??? URINALYSIS MICROSCOPIC ONLY We are checking an ultrasound of the abdomen and will call with results. We are checking labs and will call with results. Go to [address] and be prepared to give them a urinalysis. Depending upon labs we may order new medication. Further recommendations pending the above results and patient's clinical course. Follow-up visit 10 days prn The patient indicates understanding of these issues and agrees with the plan. ABORATIVE TEACHER documented in this encounter Plan of Treatment Not on file documented as of this encounter Procedures Procedure Name Priority Date/Time Associated Diagnosis Comments CULTURE URINE COMPREHENSIVE Routine 08/02/2011 1:56 PM COLLABORATIVE TEACHER Nausea Belching HELICOBACTER PYLORI ANTIBODIES (IGG,IGA,IGM) Routine 08/02/2011 1:56 PM COLLABORATIVE TEACHER Nausea Belching URINALYSIS REFLEX TO MICROSCOPIC NO CULTURE Routine 08/02/2011 1:56 PM COLLABORATIVE TEACHER Nausea Belching URINE MICROSCOPIC ONLY Routine 1 1:56 PM COLLABORATIVE TEACHER Nausea Belching COMPREHENSIVE METABOLIC PANEL Routine 08/02/2011 1:56 PM COLLABORATIVE TEACHER Nausea Belching LIPASE BLOOD Routine 08/02/2011 1:56 PM COLLABORATIVE TEACHER Nausea Belching TSH Routine 08/02/2011 1:56 PM COLLABORATIVE TEACHER Nausea Belching T4 FREE Routine 08/02/2011 1:56 PM COLLABORATIVE TEACHER Nausea Belching LIPID PROFILE Routine 08/02/2011 1:56 PM COLLABORATIVE TEACHER Nausea Belching CBC W AUTO DIFFERENTIAL Routine 08/02/2011 1:49 PM COLLABORATIVE TEACHER Nausea Belching AMYLASE BLOOD Routine 08/02/2011 1:49 PM COLLABORATIVE TEACHER Nausea Belching documented in this encounter Results * US ABDOMEN COMPLETE (08/02/2011 2:45 PM COLLABORATIVE TEACHER) Anatomical Region Laterality Modality Abdomen Ultrasound 08/02/2011 2:53 PM COLLABORATIVE TEACHER Impressions 08/02/2011 2:58 PM COLLABORATIVE TEACHER Unremarkable abdominal ultrasound. Narrative 08/02/2011 2:58 PM COLLABORATIVE TEACHER ULTRASOUND ABDOMEN COMPLETE INDICATION: Abdominal pain. FINDINGS: [...] unremarkable. IMPRESSION Unremarkable abdominal ultrasound. Cherelle Mason STEEL SHOT HEADER OPERATOR-AMERICAN BOARD CERTIFIED ORTHOTIST US ORDERABLES * CULTURE URINE COMPREHENSIVE (PO REF LAB) (08/02/2011 1:56 PM COLLABORATIVE TEACHER) Urine Culture Comprehensive Final report [facility] ACCOUNT BILL Result 1 [facility] ACCOUNT BILL Comment:No growth in 36 - 48 hours. URINE / Unknown 08/02/2011 1 :56 PM COLLABORATIVE TEACHER 08/02/2011 3:56 PM COLLABORATIVE TEACHER Narrative Resulting Agency Comment [facility] [address] ??[facility] [phone] Cherelle Mason STEEL SHOT HEADER OPERATOR-AMERICAN BOARD CERTIFIED ORTHOTIST LAB - MICROBIOL OGY ORDERABLES [facility] ACCOUNT BILL * URINALYSIS MICROSCOPIC ONLY (08/02/2011 1:56 PM COLLABORATIVE TEACHER) WBC UA 0-5 0 - 5 /hpf [...] (specimen) URINE / Unknown 08/02/2011 1:56 PM COLLABORATIVE TEACHER 08/02/2011 3:56 PM COLLABORATIVE TEACHER Narrative Resulting Agency Comment [facility] [address] ??[facility] [phone] Cherelle Mason STEEL SHOT HEADER OPERATOR-AMERICAN BOARD CERTIFIED ORTHOTIST LAB - URINALYSI S ORDERABLES [facility] ACCOUNT BILL * URINALYSIS ROUTINE AUTO (08/02/2011 1:56 PM COLLABORATIVE TEACHER) Specific [place] UA 1.019 1.005 - 1.030 [facility] ACCOUNT BILL pH UA 7.5 5.0 - 7.5 [facility] ACCOUNT BILL Color UA Yellow Yellow [facility] ACCOUNT BILL Appearance Clear Clear [facility] ACCOUNT BILL Leukocyte UA Negative Negative [facility] ACCOUNT BILL Protein UA Negative Negative/Tra ce [facility] ACCOUNT BILL Glucose UA Negative Negative [facility] ACCOUNT BILL Glucose Reflex NOT NEEDED [facility] ACCOUNT BILL Comment:Ancillary determined the test is not needed Ketone UA Negative Negative [facility] ACCOUNT BILL Occult Blood Urine Negative Negative [facility] ACCOUNT BILL Bilirubin UA Negative Negative [facility] ACCOUNT BILL Urobilinogen 0.2 0.0 - 1.9 mg/dL [facility] ACCOUNT BILL Nitrite UA Negative Negative [facility] ACCOUNT BILL Microscopic Examination Urine [facility] ACCOUNT BILL Comment:Microscopic follows if indicated. Microscopic Examination Urine See below: [facility] ACCOUNT BILL URINE / Unknown 08/02/2011 1 :56 PM COLLABORATIVE TEACHER 08/02/2011 3:56 PM COLLABORATIVE TEACHER Narrative Resulting Agency Comment [facility] [address] ??[facility] [phone] Cherellereina Rodaslayla STEEL SHOT HEADER OPERATOR-AMERICAN BOARD CERTIFIED ORTHOTIST LAB - URINALYSI S ORDERABLES [facility] ACCOUNT BILL * T4 FREE (08/02/2011 1:56 PM COLLABORATIVE TEACHER) T4 Free 1.36 0.82 - 1.77 ng/dL [facility] ACCOUNT BILL Blood specimen (specimen) BLOOD SPECIMEN / Unknown 08/02/2011 1:56 PM COLLABORATIVE TEACHER 08/02/2011 3:56 PM COLLABORATIVE TEACHER Narrative Resulting Agency Comment [facility] [address] ??[facility] [phone] Cherelle Mason STEEL SHOT HEADER OPERATOR-AMERICAN BOARD CERTIFIED ORTHOTIST LAB - CHEMISTRY ORDERABLES Performing Organization Address [facility] Co de Phone Number [facility] ACCOUNT BILL * TSH (08/02/2011 1:56 PM COLLABORATIVE TEACHER) TSH 2.740 0.450 - 4.500 uIU/mL [facility] ACCOUNT BILL Blood specimen (specimen) BLOOD SPECIMEN / Unknown 08/02/2011 1:56 PM COLLABORATIVE TEACHER 08/02/2011 3:56 PM COLLABORATIVE TEACHER Narrative Resulting Agency Comment [facility] [address] ??[place] [phone] Cherelle Mason STEEL SHOT HEADER OPERATOR-AMERICAN BOARD CERTIFIED ORTHOTIST LAB - CHEMISTRY ORDERABLES Performing Organization Address [facility] de Phone Number [facility] ACCOUNT BILL * HELICOBACTER PYLORI ANTIBODIES (IGG,IGA,IGM) (PO REF LAB) (08/02/2011 1:56 PM COLLABORATIVE TEACHER) Helicobacter pylori Antibody IgG <0.9 0.0 - [...] BLOOD SPECIMEN / Unknown 08/02/2011 1:56 PM COLLABORATIVE TEACHER 08/02/2011 3:56 PM COLLABORATIVE TEACHER Narrative Resulting Agency Comment [facility] [place] [address] ??[facility] [phone] Cherelle Mason APRN-AMERICAN BOARD CERTIFIED ORTHOTIST LAB - SEROLOGY ORDERABLES Performing Organization Address [facility] de Phone Number [facility] ACCOUNT BILL * (ABNORMAL) LIPID PROFILE (08/02/2011 1:56 PM COLLABORATIVE TEACHER) Cholesterol 205(H) 100 - 199 mg/dL [facility] ACCOUNT BILL Triglycerides 117 0 - 149 mg/dL [facility] ACCOUNT BILL HDL Cholesterol 56 >39 mg/dL [facility] ACCOUNT BILL Comment: According to ATP-III Guidelines, HDL-C >59 mg/dL is considered a negative risk factor for CHD. VLDL Calculated 23 5 - 40 mg/dL [facility] ACCOUNT BILL LDL Calculated 126(H) 0 - 99 mg/dL [facility] ACCOUNT BILL Blood specimen (specimen) BLOOD SPECIMEN / Unknown 08/02/2011 1:56 PM COLLABORATIVE TEACHER 08/02/2011 3:56 PM COLLABORATIVE TEACHER Narrative Resulting Agency Comment [facility] [place] [address] ??[place] [phone] Cherelle Marlon STEEL SHOT HEADER OPERATOR-AMERICAN BOARD CERTIFIED ORTHOTIST LAB - CHEMISTRY ORDERABLES Performing Organization Address [facility] de Phone Number [facility] ACCOUNT BILL * LIPASE BLOOD (08/02/2011 1:56 PM COLLABORATIVE TEACHER) Lipase 34 0 - 59 U/L [facility] A CCOUNT BILL Blood specimen (specimen) BLOOD SPECIMEN / Unknown 08/02/2011 1:56 PM COLLABORATIVE TEACHER 08/02/2011 3:56 PM COLLABORATIVE TEACHER Narrative Resulting Agency Comment [facility] [address] ??[facility] [phone] Cherelle Mason STEEL SHOT HEADER OPERATOR-AMERICAN BOARD CERTIFIED ORTHOTIST LAB - CHEMISTRY ORDERABLES [facility] ACCOUNT BILL * COMPREHENSIVE METABOLIC PANEL (08/02/2011 1:56 PM COLLABORATIVE TEACHER) Glucose 81 65 - 99 mg/dL [facility] ACCOUNT BILL BUN 11 6 - 20 mg/dL [facility] ACCOUNT BILL Creatinine 0.64 0.57 - 1.00 mg/dL [facility] ACCOUNT BILL eGFR by MDRD 123 >59 mL/min/1.7 3 [facility] ACCOUNT BILL eGFR by MDRD 141 >59 mL/min/1.7 3 [facility] ACCOUNT BILL Comment: Note: A persistent eGFR <60 mL/min/1.73 m2 (3 months or more) may indicate chronic kidney disease. An eGFR >59 mL/min/1.73 m2 with an elevated urine protein also may indicate chronic kidney disease. Calculated using CKD-EPI formula. BUN/Creatinine Ratio 17 8 - 20 [facility] ACCOUNT BILL Sodium 138 134 - 144 mmol/L [facility] ACCOUNT BILL Comment:Please note refere nce interval change Potassium 3.9 3.5 - 5.2 mmol/L [facility] ACCOUNT BILL Chloride 102 97 - 108 mmol/L [facility] ACCOUNT BILL CO2 20 20 - 32 mmol/L [facility] ACCOUNT BILL Calcium 9.9 8.7 - 10.2 mg/dL [facility] ACCOUNT BILL Protein Total 7.6 6.0 - 8.5 g/dL [facility] ACCOUNT BILL Albumin 4.7 3.5 - 5.5 g/dL [facility] ACCOUNT BILL Globulin Total 2.9 1.5 - 4.5 g/dL [facility] ACCOUNT BILL Albumin/Globulin Ratio 1.6 1.1 - 2.5 [facility] ACCOUNT BILL Bilirubin Total 0.3 0.0 - 1.2 mg/dL [facility] ACCOUNT BILL Alkaline Phosphatase 58 25 - 150 IU/L [facility] ACCOUNT BILL AST 23 0 - 40 IU/L [facility] ACCOUNT BILL ALT 22 0 - 40 IU/L [facility] ACCOUNT BILL Blood specimen (specimen) BLOOD SPECIMEN / Unknown 08/02/2011 1:56 PM COLLABORATIVE TEACHER 08/02/2011 3:56 PM COLLABORATIVE TEACHER Narrative Resulting Agency Comment [facility] [address] ??[facility] [phone] Cherelle Mason STEEL SHOT HEADER OPERATOR-AMERICAN BOARD CERTIFIED ORTHOTIST LAB - CHEMISTRY ORDERABLES [facility] ACCOUNT BILL * (ABNORMAL) CBC W AUTO DIFFERENTIAL (08/02/2011 1:49 PM COLLABORATIVE TEACHER) WBC 7.8 4.0 - 10.5 x10E3/uL [facility] ACCOUNT BILL RBC 4.44 3.80 - 5.10 x10E6/uL [facility] ACCOUNT BILL Hemoglobin 13.2 11.5 - 15.0 g/dL [facility] ACCOUNT BILL Hematocrit 39.7 34.0 - 44.0 % [facility] ACCOUNT BILL MCV 89 80 - 98 fL [facility] ACCOUNT BILL MCH 29.7 27.0 - 34.0 pg [facility] ACCOUNT BILL MCHC 33.2 32.0 - 36.0 g/dL [facility] ACCOUNT BILL RDW 13.3 11.7 - 15.0 % [facility] ACCOUNT BILL Platelet Count 327 140 - 415 x10E3/uL [facility] ACCOUNT BILL Granulocytes % 37(L) 40 - 74 % [facility] ACCOUNT BILL Lymphocytes % 53(H) 14 - 46 % [facility] ACCOUNT BILL Monocytes % 8 4 - 13 % [facility] ACCOUNT BILL Eosinophils % 2 0 - 7 % [facility] ACCOUNT BILL Basophils % 0 0 - 3 % [facility] ACCOUNT BILL Immature Cells NOT NEEDED [facility] ACCOUNT BILL Comment:Ancillary determined the test is not needed Granulocytes Absolute 2.9 1.8 - 7.8 x10E3/uL [facility] ACCOUNT BILL Lymphocytes Absolute 4.1 0.7 - 4.5 x10E3/uL [facility] ACCOUNT BILL Monocytes Absolute 0.6 0.1 - 1.0 x10E3/uL [facility] ACCOUNT BILL Eosinophils Absolute 0.2 0.0 - 0.4 x10E3/uL [facility] ACCOUNT BILL Basophils Absolute 0.0 0.0 - 0.2 x10E3/uL [facility] ACCOUNT BILL Immature Granulocytes 0 0 - 2 % [facility] ACCOUNT BILL Immature Granulocytes Absolute 0.0 0.0 - 0.1 x10E3/uL [facility] ACCOUNT BILL nRBC NOT NEEDED [facility] ACCOUNT BILL Comment:Ancillary determined the test is not needed Comment Hematology NOT NEEDED [facility] ACCOUNT BILL Comment:Ancillary determined the test is not needed Blood specimen (specimen) BLOOD SPECIMEN / Unknown 08/02/2011 1:49 PM COLLABORATIVE TEACHER 08/02/2011 3:56 PM COLLABORATIVE TEACHER Narrative Resulting Agency Comment [facility] [address] ??[facility] [phone] Cherelle Mason APRN-AMERICAN BOARD CERTIFIED ORTHOTIST LAB - HEMATOLOG Y ORDERABLES [facility] ACCOUNT BILL * AMYLASE BLOOD (08/02/2011 1:49 PM COLLABORATIVE TEACHER) Amylase 46 31 - 124 U/L [facility] ACCOUNT BILL Blood specimen (specimen) BLOOD SPECIMEN / Unknown 08/02/2011 1:49 PM COLLABORATIVE TEACHER 08/02/2011 3:56 PM COLLABORATIVE TEACHER Narrative Resulting Agency Comment [facility] [address] ??[facility] [phone] Cherelle Mason APRN-AMERICAN BOARD CERTIFIED ORTHOTIST LAB - CHEMISTRY ORDERABLES [facility] ACCOUNT BILL documented in this encounter Visit Diagnoses Diagnosis Nausea- Primary Nausea alone Belching Flatulence, eructation, and gas pain Nausea Nausea alone Belching Flatulence, eructation, and gas pain documented in this encounter Care Teams Patcher Wood Welder Relationship Specialty [place] [id number] [address] PCP - General Internal Medicine 06/17/11 12/04/11 documented as of this encounter
--- OUTSIDE RECORDS SUMMARY | 2024-07-30 14:08 | XMS_ITS | Encounter Summary ---
Author Organization [facility] Health Address [address] [facility] [place] [address] Care Team Providers Care Tax Representative Name Role Phone Unavailable Primary Care Provider Unavailabl e Encounter Details Date Type Department Care Team (Latest Contact Info) Description 12/23/2009 12:45 PM CDT - 12/23/2009 11:59 PM CDT Hospital Encounter HC DEFAULT [address] [place] [address] Howard William MD [address] [facility] [address] [place] [address] Discharge Disposition: Home or Self Care Social History Tobacco Use Types Packs/Day Years Used Date Smoking Tobacco: Never Assessed Sex and Gender Information Value Date Recorded Sex Assigned at Not on file Gender Identity Female 08/19/2022 7:56 AM CHILDHOOD TEACHER Sexual Orientation Not on file documented as of this encounter Plan of Treatment Not on file documented as of this encounter Visit Diagnoses Not on filedocumented in this encounter
--- OUTSIDE RECORDS SUMMARY | 2024-07-30 14:08 | XMS_ITS | Encounter Summary ---
Author Organization [facility] Address [address] [place] [address] Care Team Providers Care Furnace Mason Name Role Phone Daja Orr MD Primary Care Provider [phone] Encounter Details Date Type Department Care Team (Late st Contact Info) Description 08/04/[address] [facility] - Family Medicine [id number] [place] [address] [address] [place] [address] [place] [address] [facility] [address] [place] [address] Social History Tobacco Use Types Packs/Day Years Used Date Smoking Tobacco: Never Alcohol Use Standard Drinks/Week Comments Yes 0 (1 standard drink = 0.6 oz pur e alcohol) social Sex and Gender Information Value Date Recorded Sex Assigned at Not on file Gender Identity Female 08/19/2022 7:56 AM LEAK PATCHER Sexual Orientation Not on file documented as of this encounter Plan of Treatment Not on file documented as of this encounter Visit Diagnoses Not on filedocumented in this encounter Care Teams Furnace Mason Relationship Specialty [place] [address] [facility] [address] [place] [address] PCP - General Internal Medicine 06/17/11 12/04/11 documented as of this encounter
--- OUTSIDE RECORDS SUMMARY | 2024-07-30 14:08 | XMS_ITS | Encounter Summary ---
Author Organization [facility] Address [address] [facility] [place] [address] Care Team Providers Care Lead Based Paint Technician Name Role Phone Unavailable Primary Care Provider Unavailabl e Encounter Details Date Type Department Care Team (Latest Contact Info) Description 12/22/2010 3:00 PM CDT M Procedure Visit [facility] at [facility] [address] [address] [facility] [facility] [address] [place] [address] Encounter for routine screening for malformation using ultrasonics Social History Tobacco Use Types Packs/Day Years Used Date Smoking Tobacco: Never Assessed Sex and Gender Information Value Date Recorded Sex Assigned at Not on file Gender Identity Female 08/19/2022 7:56 AM ORNAMENTAL IRONWORKING SUPERVISOR Sexual Orientation Not on file documented as of this encounter Miscellaneous Notes * Miscellaneous Scans - Document, Scanned - 02/12/2011 3:22 PM CDT documented in this encounter Plan of Treatment Not on file documented as of this encounter Procedures Procedure Name Priority Date/Time Associated Diagnosis Comments SONOGRAM - COMPLETE Routine 12/22/2010 2:43 PM CDT Encounter for routine screening for malformation using ultrasonics documented in this encounter Results * SONOGRAM - COMPLETE (12/22/2010 2:43 PM CDT) Anatomical Region Laterality Modality Other 12/22/2010 2:43 PM CDT Narrative 12/23/2010 5:23 AM CDT ?[facility] ?FAX: ?? Pat. Name: ?CATA IBRAHIM Pat. No: ?[id number] Study Date: ?? 12/22/2010 ??2:43pm , Age: ? 1985, 25 Pregnancies: ?? 1, Para 0000 LMP: ?08/06/2010 GA by LMP: ?19.7 weeks GA by US: ? 17.7 weeks GA Selected: ??17.6 weeks (From Known E) CHARLI: ?05/28/2011 Referring MD: JOSE ALBERTO FINLEY MD Soil Conservation Teacher: ??Mi Vernon RDMS Hist/Ind: ? Anatomy Screen [...] MD <Electronic Signature> ??12/23/2010 05:23am Jose Alberto Finley MD [facility] ORDERABLES documented in this encounter Visit Diagnoses Diagnosis Encounter for routine screening for malformation using ultrasonics ([facility])- Primary Encounter for routine screening for malformation using ultrasonics documented in this encounter
--- OUTSIDE RECORDS SUMMARY | 2024-07-30 14:08 | XMS_ITS | Encounter Summary ---
Author Organization [facility] Address [address] [address] [place] [address] Care Team Providers Care Commercial Kitchen Service Technician Name Role Phone Daja Orr MD Primary Care Provider [phone] Reason for Visit * Reason Onset Date Comments Results 08/03/2011 Encounter Details Date Type Department Care Team (Late st Contact Info) Description 08/03/2011 Telephone [facility] Medical [facility] - Family Medicine [address] [place] [address] [place] [address] [facility] [address] [place] [address] Results Social History Tobacco Use Types Packs/Day Years Used Date Smoking Tobacco: Never Alcohol Use Standard Drinks/Week Comments Yes 0 (1 standard drink = 0.6 oz pur e alcohol) social Sex and Gender Information Value Date Recorded Sex Assigned at Not on file Gender Identity Female 08/19/2022 7:56 AM [employer] Sexual Orientation Not on file documented as of this encounter Miscellaneous Notes * Telephone Encounter - Jyoti Dailey MA - 08/03/2011 4:04 PM CST Spoke to pt [employer] * Telephone Encounter - Jyoti Lugo V - 08/03/2011 3:58 PM CST Pt calling for results of US and labs. Please call [employer] documented in this encounter Plan of Treatment Not on file documented as of this encounter Visit Diagnoses Not on filedocumented in this encounter Care Teams Commercial Kitchen Service Technician Relationship Specialty [place] [id number] [id number] PCP - General Internal Medicine 06/17/11 12/04/11 documented as of this encounter
--- OUTSIDE RECORDS SUMMARY | 2024-07-30 14:08 | XMS_ITS | Encounter Summary ---
Author Organization [facility] Address [address] [place] [address] Care Team Providers Care Showroom Executive Director Name Role Phone Unavailable Primary Care Provider Unavailabl e Encounter Details Date Type Department Care Team (Latest Contact Info) Description 12/22/2009 9:22 AM CDT - 12/22/2009 11:59 PM CDT Hospital [facility] [address] [place] [address] Covert, [place] [address] [place] [id number] Discharge Disposition: Home or Self Care Social History Tobacco Use Types Packs/Day Years Used Date Smoking Tobacco: Never Assessed Sex and Gender Information Value Date Recorded Sex Assigned at Not on file Gender Identity 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 ? Reading Awais BRENNAN ? Releasing Awais BRENNAN ? Released Date Time- 12/23/091611 ? Game Warden- DTC ? ADM- COVERT,ROBIN A ? ATT- [...] Releasing Awais BRENNAN Released Date Time- 12/23/091611 Game Warden- DTC ADM- COVERT,ROBIN Rahman ATT- COVERT,ROBIN Rahman REF- CON- PCP- SCP- Robin Su MD DIAGNOSTIC IMAGING O [facility] documented in this encounter Visit Diagnoses Diagnosis Tuberculin test reaction Nonspecific reaction to tuberculin skin test without active tuberculosis documented in this encounter
--- OUTSIDE RECORDS SUMMARY | 2024-07-30 14:08 | XMS_ITS | Encounter Summary ---
Author Organization [facility] Address [address] [place] [address] Care Team Providers Care Residential Supervisor Name Role Phone Daja Orr MD Primary Care Provider [phone] Reason for Visit * Reason Onset Date Comments Nausea 08/02/2011 Encounter Details Date Type Department Care Team (Late st Contact Info) Description 08/02/2011 Telephone [facility] Medical [facility] - Family Medicine [address] [place] [address] [place] [address] [address] [place] [address] Nausea Social History Tobacco Use Types Packs/Day Years Used Date Smoking Tobacco: Never Alcohol Use Standard Drinks/Week Comments Yes 0 (1 standard drink = 0.6 oz pur e alcohol) social Sex and Gender Information Value Date Recorded Sex Assigned at Not on file Gender Identity Female 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 Right lower to middle abdominal pain. Low grade temp 99.0 last day or day More bowel movements than normal, still formed stools Acid reflux some what more seems like she is burping air every couple of minutes. BOTTOM ATTACHING MACHINE OPERATOR documented in this encounter Plan of Treatment Not on file documented as of this encounter Visit Diagnoses Not on filedocumented in this encounter Care Teams Residential Supervisor Relationship Specialty [place] [address] [id number] PCP - General Internal Medicine 06/17/11 12/04/11 documented as of this encounter
--- OUTSIDE RECORDS SUMMARY | 2024-07-30 14:08 | XMS_ITS | Encounter Summary ---
Author Organization [facility] Address [address] [place] [address] Care Team Providers Care Executive Administrator Name Role Phone Daja Orr MD Primary Care Provider [phone] Reason for Referral * - Closed Specialty Diagnoses / Procedures Referred By Contac t Referred To Contact Diagnoses Nausea Belching Procedures US ABDOMEN COMPLETE Cherelle Mason APRN-PAPER SUPERVISOR [address] [place] [id number] Referral ID Status Reason Start Date Expiration Date Visits Re quested Visits Authorized [id number] Closed 08/02/2011 01/29/2012 1 1 ERTY DAMAGE CLAIMS ADJUSTOR Reason for Visit * - Closed Specialty Diagnoses / Procedures Referred By Contac t Referred To Contact Diagnoses Nausea Belching Procedures US ABDOMEN COMPLETE Cherelle Mason APRN-PAPER SUPERVISOR [address] [place] [id number] Referral ID Status Reason Start Date Expiration Date Visits Re quested Visits Authorized [id number] Closed 08/02/2011 01/29/2012 1 1 Encounter Details Date Type Department Care Team (Latest Contact Info) Description 08/02/2011 2:07 PM PROPERTY DAMAGE CLAIMS ADJUSTOR - 08/02/2011 11:59 PM PROPERTY DAMAGE CLAIMS ADJUSTOR Hospital Encounter [facility] Health Imaging Services - Ultrasound [address] [place] [address] [place] [address] [place] [address] Radiology Diagnostic Discharge Disposition: Home or Self Care Social History Tobacco Use Types Packs/Day Years Used Date Smoking Tobacco: Never Alcohol Use Standard Drinks/Week Comments Yes 0 (1 standard drink = 0.6 oz pur e alcohol) social Sex and Gender Information Value Date Recorded Sex Assigned at Not on file Gender Identity Female 08/19/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 3 documented as of this encounter Progress Notes * Cherelle Mason FNP - 08/03/2011 4:07 PM CSTQuick Note: Call to report that the labs are normal. US of abdomen normal. Needs HIDA scan. ERTY DAMAGE CLAIMS ADJUSTOR documented in this encounter Miscellaneous Notes * Miscellaneous Scans - Document, Scanned - 08/10/2011 10:20 AM CST [employer] DAMAGE CLAIMS ADJUSTOR documented in this encounter Plan of Treatment Not on file documented as of this encounter Procedures Procedure Name Priority Date/Time Associated Diagnosis Comments US ABDOMEN COMPLETE Routine 08/02/2011 2 :45 PM PROPERTY DAMAGE CLAIMS ADJUSTOR Nausea Belching documented in this encounter Results * US ABDOMEN COMPLETE (08/02/2011 2:45 PM PROPERTY DAMAGE CLAIMS ADJUSTOR) Anatomical Region Laterality Modality Abdomen Ultrasound 08/02/2011 2:53 PM PROPERTY DAMAGE CLAIMS ADJUSTOR Impressions 08/02/2011 2:58 PM PROPERTY DAMAGE CLAIMS ADJUSTOR Unremarkable abdominal ultrasound. Narrative 08/02/2011 2:58 PM PROPERTY DAMAGE CLAIMS ADJUSTOR ULTRASOUND ABDOMEN COMPLETE INDICATION: Abdominal pain. FINDINGS: [...] cava are unremarkable. IMPRESSION Unremarkable abdominal ultrasound. Cherellelorie Rodaslayla DEPUTY ASSESSOR-PAPER SUPERVISOR US ORDERABLES documented in this encounter Visit Diagnoses Diagnosis Nausea Nausea alone Belching Flatulence, eructation, and gas pain documented in this encounter Care Teams Executive Administrator Relationship Specialty [place] [id number] [id number] PCP - General Internal Medicine 06/17/11 12/04/11 documented as of this encounter
--- OUTSIDE RECORDS SUMMARY | 2024-07-30 14:08 | XMS_ITS | Encounter Summary ---
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 Details Forceps: Forceps Type: Shoulder Dystocia Shoulder Dystocia: Nursing Maneuvers: Utilities Manager Arrival: Anesthesia Arrival: Nursery RN Arrival: Rapid Response Team Called: Rapid Response Team Arrival: Head Delivered: Anterior Shoulder Delivered: Presentation Delivery Presentation: Vertex Membranes Membrane Status: Rupture Date: 04/03/2011 Rupture Time: 1:48 AM Fluid Description: Bloody Placenta Data Placenta Delivery Date and Time: 04/03/2011 1:50 AM Placenta Appearance/Removal: Sent to Pathology Manual Removal Cord Data Cord Vessels: 3 Vessels Cord Complications: None Cord Blood Disposition: Lab Gases Sent: Yes Venous Arterial Stabilization Suction Method: Suction Trap Bulb Secretions: Red Airway Support: CPAP via T-Piece Intubation: Tube Size Performed by: Placement Validated by: , Tube Secured by: Tube Secured at: Number of Attempts: Tolerance: Thermoregulation Support: Overhead Warmer More Interventions Needed: Yes, See 's Chart Description of Baby: Assessment (1 min): 6 (5 min): 8 (10 min): (15 min): (20 min): Delivery Outcome Living: Yes Sex: Female Measurements Weight: 1634 g (3 lb 9.6 oz) Length: 16.5 inches Head Circumference: 10.83 inches documented in this encounter Plan of Treatment Not on file documented as of this encounter Procedures Procedure Name Priority Date/Time Associated Diagnosis Comments IMAGING/RADIOLOGY/XRA Y RESULTS ORDER 04/08/2011 2:10 PM CDT HGB HCT PANEL Routine 2011 5:47 AM CDT XR ABDOMEN KUB STAT 04/03/2011 2:30 AM CDT Surgery follow-up examination GROSS + MICRO EXAM SOLOMON 04/03/2011 1: 49 AM CDT GROSS + MICRO EXAM Routine 04/03/2011 1: 49 AM CDT TYPE + SCREEN PANEL Routine 04/03/2011 1 :40 AM CDT CBC W AUTO DIFFERENTIAL STAT 04/03/2011 1:40 AM CDT documented in this encounter Results * IMAGING/RADIOLOGY/XRAY RESULTS ORDER (04/08/2011 2:10 PM CDT) Anatomical Region Laterality Modality Other Narrative Transcriptions Document, Scanned - 04/08/2011 2:10 PM CDT Scanned Document IMAGING * (ABNORMAL) HGB HCT PANEL (2011 5:47 AM CDT) Hemoglobin 9.9(DL) 12.0 - 16.0 gm/dl [facility] Hematocrit 29.9(DL) 36 - 47 % [facility] BLOOD SPECIMEN / Unknown 2011 5:47 AM CDT 2011 5:58 AM CDT Narrative [facility] - 2011 6:15 AM CDT Obtain 12-24 hours after delivery. Jose Alberto Finley MD LAB - HEMATOLOGY ORD ERABLES [facility] [address] [place] [address] * XR ABDOMEN 1 VW (04/03/2011 2:30 AM CDT) Anatomical Region Laterality Modality Abdomen Radiographic Tracy ging 04/03/2011 8:13 AM CDT Narrative 04/03/2011 9:40 AM CDT KUB CLINICAL INDICATION: Emergency . Check for instrumentation. COMPARISON: None FINDINGS: There is no evidence of radiopaque foreign body. Osseous structures are unremarkable. No significant bowel dilatation. Procedure Note Jatinder Roche MD - 04/03/2011 KYLE CLINICAL INDICATION: Emergency . Check for instrumentation. COMPARISON: None FINDINGS: There is no evidence of radiopaque foreign body. Osseous structures are unremarkable. No significant bowel dilatation. Tavo Casey MD DIAGNOSTIC IMAGING O RDERABLES * GROSS + MICRO EXAM (04/03/2011 1:49 AM CDT) Result CASE NUMBER [id number] Comment: ORDERING PHYSICIAN ??JOSE ALBERTO FINLEY SPECIMEN TYPE ?Placenta DATE OF PROCEDURE ?04/03/2011 PHYSICIAN[S] ? SPECIMEN LABELED ? Placenta PRE-OP DIAGNOSIS ? Abruption GROSS DESCRIPTION ? GROSS DESCRIPTION ?? The specimen is received in formalin labeled placenta patient Cata Urena and consists of a 415 gram, 16 [...] are no lesions or masses grossly identified. Counter Roller sections are submitted as follows ?? A1 [...] Dictated by ?Pedro Carbajal M.D. CPT ?? 70679 Brick Chimney Builder ? NAZARIO LOCKETT Electronically Signed By ? PEDRO CARBAJAL MISCELLANEOUS SAMPLES / Unknown 04/03/2011 1:49 AM CDT 2011 8:55 AM CDT Historical Provider LAB - PATHOLOGY/C YTOLOGY ORDERABLES * GROSS + MICRO EXAM (04/03/2011 1:49 AM CDT) [facility] Date of Procedure 04/03/11 [facility] Physician(s) [facility] Specimen Labeled Placenta [facility] Pre-Op Diagnosis Abruption [facility] Gross Description [facility] Comment: GROSS DESCRIPTION: The specimen is received in formalin labeled placenta patient Cata Urena and consists of a 415 gram, 16 [...] are no lesions or masses grossly identified. Counter Roller sections are submitted as follows: ??A1 - membranes and umbilical cord; A2 - surface; A3 - maternal surface. Dictated by: CHAYITO MICROSCOPIC DESCRIPTION: The membrane sections show no significant inflammation of the chorioamnion. Chorion labia are present. The umbilical cord contains three vessels. No funisitis is seen. The villi appear mature. No villitis is detected. The surface is without significant inflammation. The maternal surface is without infarcts. No acute hypertensive vasculopathy is found. Calcifications are present. DIAGNOSIS: Placenta, presumed vaginal delivery: - ?Histologically mature placenta, 415 grams - ?Three vessel umbilical cord Dictated by: ?? Pedro Carbajal M.D. CPT: ??11929 Brick Chimney Builder NAZARIO LOCKETT, [facility] Electronically Signed By PEDRO CARBAJAL [facility] ENTIRE PLACENTA / Unknown 04/03/2011 1:49 AM CDT 2011 8:55 AM CDT Jose Alberto Finley MD LAB - PATHOLOGY/CYTO LOGY ORDERABLES Performing Organization Address [facility] Co de Phone Number [facility] [address] [place] [address] * TYPE + SCREEN PANEL (04/03/2011 1:40 AM CDT) ABO Rh O Pos [facility] Antibody Screen Neg [facility] BLOOD SPECIMEN / Unknown 04/03/2011 1:40 AM CDT 04/03/2011 2:00 AM CDT Jose Alberto Finley MD LAB - BLOOD BANK ORD ERABLES Performing Organization Address [facility] de Phone Number [facility] [address] [place] [address] * (ABNORMAL) CBC W AUTO DIFFERENTIAL (04/03/2011 1:40 AM CDT) WBC 13.84(H) 4.0 - 11.0 X(10)3/L [facility] RBC 3.98 3.8 - 5.3 X(10)6 [facility] Hemoglobin 12.5 12.0 - 16.0 gm/dl [facility] Hematocrit 35.8(L) 36 - 47 % [facility] MCV 89.9 80.0 - 99.0 fl [facility] MCH 31.4 26 - 34 pg [facility] MCHC 34.9 32.0 - 37.0 gm/dl [facility] RDW 13.6 11.5 - 14.5 % [facility] Platelet Count 251 150 - 400 K/CUMM [facility] MPV 10.4 9.2 - 12.2 fl [facility] Granulocytes % 58.8 43 - 70 % [facility] Granulocytes Absolute 8.14(H) 1.7 - 6.7 X(10)3 [facility] Lymphocytes % 33.0 22 - 41 % [facility] Lymphocytes Absolute 4.57(H) 0.9 - 3.2 X(10)3 [facility] Monocytes % 6.9 2.0 - 11.0 % [facility] Monocytes Absolute 0.95(H) 0.2 - 0.9 X(10)3 [facility] Eosinophils % 1.2 0.0 - 5.0 % [facility] Eosinophils Absolute 0.16 0.0 - 0.4 X(10)3 [facility] Basophils % 0.1 0 - 2 % [facility] Basophils Absolute 0.02 0.0 - 0.2 X(10)3 [facility] Comment Manual Diff Manual Diff Not Indicated [facility] BLOOD SPECIMEN / Unknown 04/03/2011 1:40 AM CDT 04/03/2011 2:00 AM CDT Jose Alberto Finley MD LAB - HEMATOLOGY ORD ERABLES [facility] [address] [facility] [place] [address] documented in this encounter Visit Diagnoses Diagnosis state, incidental (HCC)- Primary state, incidental Surgery follow-up examination Follow-up examination, following unspecified surgery documented in this encounter Administered Medications Inactive Administered Medications - up to 3 most recent administrations Medication Order MAR Action Action Date Dose Rate Site dextrose 5 % and 0.45% nacl infusion at 125 mL/hr, Intravenous, CONTINUOUS, Starting on Mon04/03/11 at 0315, Until Mon04/08/11 at 0456 $ New Bag/Syringe 04/03/2011 7:20 PM CDT 125 mL/hr $ New Bag/Syringe 04/03/2011 11:21 AM CDT 125 m L/hr $ Given 04/03/2011 3:41 AM CDT dextrose 5% and 0.45% nacl infusion ADS Med 1 dose, Starting on Mon04/03/11 at 0332, Until Mon04/03/11 at 0341, Jessy López A: cabinet override diphenhydrAMINE (BENADRYL) injection 25 mg 25 mg, Intravenous, EVERY 6 HOURS PRN, Itching, Starting on 04/03/11 at 0220, Until Mon04/08/11 at 0456, Max intravenous rate = 25 mg/min $ Given 2011 3:10 AM CDT 25 mg diphenhydrAMINE (BENADRYL) tablet 25 mg 25 mg, Oral, EVERY 6 HOURS PRN, Itching, Starting on 04/03/11 at 0241, Until Mon04/08/11 at 0456 $ Given 04/05/2011 12:54 AM CDT 25 mg hydrocodone-acetaminophen (NORCO) 5-325 MG tablet 1-2 Tab 1-2 tablet, Oral, EVERY 4 HOURS PRN, Pain, Starting on Mon04/04/11 at 1954, Until Mon04/08/11 at 0456, Maximum allowable Acetaminophen amount = 4 Grams (4000 mg) / 24 hours. $ Given 04/07/2011 9:09 AM CDT 2 tablets $ Given 04/06/2011 10:45 PM CDT 2 tablets $ Given 04/06/2011 2:52 PM CDT 2 tablets ibuprofen (MOTRIN) tablet 800 mg 800 mg, Oral, 3 TIMES DAILY, First dose on Mon04/03/11 at 0900, Until Discontinued, Mild per patient description. Maximum allowable ibuprofen amount = 3200 mg / 24 hours. $ Given 04/07/2011 7:30 AM CDT 800 mg $ Given 04/06/2011 10:45 PM CDT 800 mg $ Given 04/06/2011 2:53 PM CDT 800 mg ketorolac (TORADOL) 30 mg/ml injection ADS Med 1 dose, Starting on Mon04/03/11 at 0505, Until Mon04/03/11 at 0513, Jessy López: dimas overrisaac ketorolac (TORADOL) injection 30 mg 30 mg, Intravenous, EVERY 6 HOURS PRN, Pain, Starting on Mon04/03/11 at 0220, Until Mon04/06/11 at 0219 $ Given 2011 6:39 AM CDT 30 mg $ Given 2011 1:10 AM CDT 30 mg $ Given 04/03/2011 5:11 PM CDT 30 mg morphine 4 mg/ml injection ADS Med 1 dose, Starting on Mon04/03/11 at 0306, Until Mon04/03/11 at 0308, Jessy López A: cabinet override morphine injection 2-4 mg 2-4 mg, Intravenous, EVERY 2 HOURS PRN, Pain, Starting on Mon04/03/11 at 0718, Until Mon04/08/11 at 0456 $ Given 2011 1:26 AM CDT 2 mg $ Given 04/03/2011 8:10 AM CDT 4 mg morphine injection 4 mg 4 mg, Intravenous, EVERY 2 HOURS PRN, Pain, Starting on 04/03/11 at 0221, Until Mon04/03/11 at 0719 $ Given 04/03/2011 3:08 AM CDT 4 mg oxycodone-acetaminophen (PERCOCET) 5-325 MG tablet 1-2 Tab 1-2 tablet, Oral, EVERY 4 HOURS PRN, Pain, Starting on Mon04/03/11 at 0241, Until Mon04/08/11 at 0456, For pain not controlled by non-opiod analgesics. Maximum allowable acetaminophen amount = 4 Grams / 24 hours. $ Given 2011 4:48 PM CDT 2 tablets $ Given 04/03/2011 3:38 PM CDT 2 tablets oxytocin (PITOCIN) 30 units in 500 ml normal saline IV solution ADS Med 1 dose, Starting on Mon04/03/11 at 0239, Until Mon04/03/11 at 0247, Jessy López: cabinet override oxytocin (PITOCIN) 30 units in 500 ml normal saline IV solution 125 apolinar-units/min (rounded to 125 mL/hr), Intravenous, CONTINUOUS, Starting on Mon04/03/11 at 0315, Until Mon04/08/11 at 0456 $ Given 04/03/2011 2:45 AM CDT documented in this encounter Active and Recently Administered Medications Times are shown in CDT. Scheduled Medication Order 04/05/2011 04/06/2011 04/07/2011 ibuprofen (MOTRIN) tablet 800 mg 800 mg, Oral, 3 TIMES DAILY, First dose on 04/03/11 at 0900, Until Discontinued, Mild per patient description. Maximum allowable ibuprofen amount = 3200 mg / 24 hours. 1102 ($ Given - Provider: Dona Le RN)1432 ($ Given - Provider: Dona Le RN)2055 ($ Given - Provider: Lacey Rizvi RN) 0848 ($ Given - Provider: Jeanie Becerra, RUBÉN)1453 ($ Given - Provider: Jeanie Becerra RN)2245 ($ Given - Provider: Adwoa Ayoub, RN) 0730 ($ Given - Provider: Diane Amaya RN)1400 (Due) PRN Medication Order 04/05/2011 04/06/2011 04/07/2011 diphenhydrAMINE (BENADRYL) tablet 25 mg (CANCELED) 25 mg, Oral, EVERY 6 HOURS PRN, Itching, Starting on Mon04/03/11 at 0241, Until Mon04/08/11 at 0456 0054 ($ Given - Provider: Lacey Rizvi RN) hydrocodone-acetaminophe n (NORCO) 5-325 MG tablet 1-2 Tab 1-2 tablet, Oral, EVERY 4 HOURS PRN, Pain, Starting on 04/04/11 at 1954, Until Mon04/08/11 at 0456, Maximum allowable Acetaminophen amount = 4 Grams (4000 mg) / 24 hours. 0054 ($ Given - Provider: Lacey Rizvi RN)1102 ($ Given - Provider: Dona Le RN)2055 ($ Given - Provider: Lacey Rizvi RN) 0408 ($ Given - Provider: Lacey Rizvi RN)0848 ($ Given - Provider: Jeanie Becerra RN)1452 ($ Given - Provider: Jeanie Becerra RN)2245 ($ Given - Provider: Adwoa Ayoub, RUBÉN) 0909 ($ Given - Provider: Tristin Barrett RN) documented in this encounter
--- OUTSIDE RECORDS SUMMARY | 2024-07-30 14:08 | XMS_ITS | Encounter Summary ---
Author Organization [facility] Address [address] [place] [address] Care Team Providers Care Barrel Rifler Name Role Phone Daja Orr MD Primary Care Provider [phone] Reason for Referral * - Closed Specialty Diagnoses / Procedures Referred By Contac t Referred To Contact Diagnoses Family history of breast cancer in first degree relative Procedures MAMMO [place]CREEN[place] [id number] [address] [place] [address] Referral ID Status Reason Start Date Expiration Date Visits Re quested Visits Authorized [id number] Closed 08/23/2011 02/19/2012 1 1 Reason for Visit * Reason Comments Establish Care Encounter Details Date Type Department Care Team (Late st Contact Info) Description 06/17/2011 11:00 AM CDT Office Visit [facility] - Family Medicine [id number] [place] [address] [place] [id number] [address] [place] [address] Family history of breast cancer in first degree relative (Primary Dx); Vaginal vestibulitis Social History Tobacco Use Types Packs/Day Years Used Date Smoking Tobacco: Never Alcohol Use Standard Drinks/Week Comments Yes 0 (1 standard drink = 0.6 oz pur e alcohol) social Sex and Gender Information Value Date Recorded Sex Assigned at Not on file Gender Identity Female 08/19/2022 7:56 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 female BP 100/60 Pulse 72 Resp 16 Wt 100 lb (45.36 kg) BMI 18.29 kg/m2 Chief Complaint Patient presents with ??? Establish Care * Daja Orr MD - 06/17/2011 10:59 AM CDT SUBJECTIVE: Cata Urena is a 26 y.o. female with Chief Complaint Patient presents with ??? Establish Care Past Medical History Diagnosis Date ??? Generalized anxiety disorder ??? Depressive disorder, not elsewhere classified ??? Vaginal vestibulitis History Social History ??? Marital Status: Spouse Name: N/A Number of Children: 1 ??? Years of Education: N/A Occupational History ??? [employer] Social History Main Topics ??? Smoking status: Never Smoker ??? Smokeless tobacco: Not on file ??? Alcohol Use: Yes social ??? Drug Use: No ??? Sexually Active: Not on file Other [...] Maternal Grandmother ??? Thyroid Disease Paternal Grandmother HPI: here to establish care. Healthy female. She had a baby 6 weeks ago. The baby was 6 weeks earlybecause she was in a car accident. She's healthy. 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 Her mother is 52 and diagnosed with breast cancer and she wants genetic testing and was told she could have a mammogram if she wants it.She also has a hx of vaginal vestibulitis and is not to see her doctor until September. She had bleeding with her accident, but did not require transfusion. She is not breast feeding and she is takinga daily MVI. She's had labs. She is allergic to tetanus and cannot have the tdap. Review of Systems: Per HPI. O/w negative. OBJECTIVE: BP 100/60 Pulse 72 Resp 16 Wt 100 lb (45.36 kg) BMI 18.29 kg/m2 General: alert, cooperative, no distress, oriented to person, place, and time, well appearing Head: NCAT w/o lesions or tenderness Eyes: PERRLA, EOMI, Sclera and conjunctiva clear Neck: range of motion is intact, no masses, thyroid not enlarged, no adenopathy, supple Heart: normal rate, regular rhythm, normal S1, S2, no murmurs, rubs, clicks or gallops Lungs: clear to auscultation bilaterally Abdomen: soft without mass, non-tender, with normal bowel sounds Back: symmetric, no curvature. ROM normal. No CVA tenderness. Extremities: no clubbing, cyanosis or edema Neuro: nonfocal ASSESSMENT: Encounter Diagnoses Name Primary? Family history of breast cancer in first degree relative Yes ??? Vaginal vestibulitis PLAN: Orders Placed This Encounter ??? MAMMO SCREENING BILATERAL Order Specific Question: Reason for Exam Answer: screen Order Specific Question: Perform Diagnostic mamm if screening abnormal? Answer: Yes Order Specific Question: Perform US breast if screening mamm abnormal? Answer: Yes Order Specific Question: Perform Breast Biopsy if screening mamm is abnormal? Answer: Yes ??? AMB CONSULT TO GENERAL SURGERY will find out from Dr Trejo about who/where she can get tested for the BRAca. She declines other blood work today. She will check with her digital asset manager about more triacinolone, but I will give her an emergency supply if she needs it she may call back. documented in this encounter Plan of Treatment Not on file documented as of this encounter Procedures Procedure Name Priority Date/Time Associated Diagnosis Comments MAMMO BILAT SCREENING Routine 08/23/2011 7:59 AM CHASSIS INSPECTOR Family history of breast cancer in first degree relative documented in this encounter Results * MAMMO SCREENING DIGITAL IMAGE BILAT (08/23/2011 7:59 AM CHASSIS INSPECTOR) Anatomical Region Laterality Modality Breast Bilateral Mammography 08/23/2011 12:0 7 PM CHASSIS INSPECTOR Narrative 08/23/2011 12:27 PM CHASSIS INSPECTOR DIGITAL BILATERAL SCREENING MAMMOGRAMS WITH CAD CORRELATION [...] if suspicious findings are present clinically. An [employer] Facility Procedure Note Jatinder Roche MD - 08/23/2011 DIGITAL BILATERAL SCREENING MAMMOGRAMS WITH CAD CORRELATION DATE: August 23, 2011 PREVIOUS EXAM DATE: None; baseline examination. INDICATION: Screening, multiple family members including first degree relatives with history of breast cancer. TECHNIQUE: Bilateral craniocaudad (CC) and mediolateral oblique (MLO) views. The study was interpreted with the aid of CAD. TECHNOLOGIST: RT Greyson(RM) TISSUE DENSITY: Extremely dense [...] if suspicious findings are present clinically. An [employer] Facility Daja Orr MD MAMMO ORDERABLES documented in this encounter Visit Diagnoses Diagnosis Family history of breast cancer in first degree relative- Primary Family history of malignant neoplasm of breast Vaginal vestibulitis Vaginitis and vulvovaginitis, unspecified documented in this encounter Care Teams Barrel Rifler Relationship Specialty [place] [id number] [address] PCP - General Internal Medicine 06/17/11 12/04/11 documented as of this encounter
--- OUTSIDE RECORDS SUMMARY | 2024-07-30 14:08 | XMS_ITS | Encounter Summary ---
Author Organization [facility] Address [address] [place] [address] Care Team Providers Care X Ray Control Equipment Repairer Name Role Phone Daja Orr MD Primary Care Provider [phone] Reason for Visit * Reason Onset Date Comments Results 08/03/2011 Encounter Details Date Type Department Care Team (Late Contact Info) Description 08/03/2011 Telephone [facility] - Family Medicine [address] [place] [address] Cherelle Mason, KIMBERLY-HEAD GRINDER [address] [facility] [place] [address] Results Social History Tobacco Use Types Packs/Day Years Used Date Smoking Tobacco: Never Alcohol Use Standard Drinks/Week Comments Yes 0 (1 standard drink = 0.6 oz pur e alcohol) social Sex and Gender Information Value Date Recorded Sex Assigned at Not on file Gender Identity Female 08/19/2022 7:56 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 US of abdomen normal. Needs HIDA scan. BLAST EQUIPMENT OPERATOR documented in this encounter Plan of Treatment Not on file documented as of this encounter Visit Diagnoses Diagnosis Nausea- Primary Nausea alone documented in this encounter Care Teams X Ray Control Equipment Repairer Relationship Specialty [place] [address] [place] [address] PCP - General Internal Medicine 06/17/11 12/04/11 documented as of this encounter
--- OUTSIDE RECORDS SUMMARY | 2024-07-30 14:09 | XMS_ITS | Encounter Summary ---
Author Organization [facility] Healthcare Address [address] [place] [address] Care Team Providers Care Conveyor Line Battery Charger Name Role Phone Omega Khanna MD, Maurice Parks Primary Care Provider Reason for Visit * Reason Onset Date Comments Schedule 04/23/2024 Encounter Details Date Type Department Care Team (Late st Contact Info) Description 04/23/2024 Telephone [facility] Gastroenterology at [facility] [address] [place] [id number] Candace Dunlap MD [address] [id number] Schedule Social History Tobacco Use Types Packs/Day Years Used Date Smoking Tobacco: Never Passive Smoke Exposure: Never Smokeless Tobacco: Never Social Connection and Isolat ion Panel [NHANES] Answer Date Recorded In a typical week, how many times do you talk on the phone with family, friends, or neighbors? More than three times a week 04/05/2024 How often do you get togethe r with friends or relatives? More than three times a week 04/05/2024 How often do you attend chur ch or muslim services? Never 04/05/2024 Do you belong to any clubs o r organizations such as sabianist groups, unions, fraternal or athletic groups, or school groups? No 04/05/2024 How often do you attend meet ings of the clubs or organizations you belong to? Never 04/05/2024 Are you , , di vorced, , never , or living with a partner? 04/05/2024 Overall Financial Resource Strain (CARDIA) Answe r Date Recorded How hard is it for you to pa y for the very basics like food, housing, medical care, and heating? Not very hard 04/05/2024 PHQ-2 Answer Date Recorded PHQ-2 Total Score (If total score is 3 or more points, staff should administer the PHQ-9) 0 03/11/2024 Hunger Vital Sign Answer Date Recorded Within the past 12 months, y ou worried that your food would run out before you got the money to buy more. Never true 04/05/20 24 Within the past 12 months, t he food you bought just didn't last and you didn't have money to get more. Never true 04/05/2024 PRAPARE - Transportation Answer Date Re corded In the past 12 months, has l ack of transportation kept you from medical appointments or from getting medications? No 03/15 In the past 12 months, has l ack of transportation kept you from meetings, work, or from getting things needed for daily living? No 04/05/2024 Housing Stability Vital Sign Answer Todd e Recorded In the last 12 months, was t here a time when you were not able to pay the mortgage or rent on time? No 04/05/2024 In the past 12 months, how m any times have you moved where you were living? 0 04/05/2024 At any time in the past 12 m [facility], were you homeless or living in a group home (including now)? No 04/05/2024 Personal Safety Answer Date Recorded Have you ever been in or are you currently in a harmful physical or emotional relationship or is someone making you feel afraid or unsafe? Denies 10/18/2023 Comments No Sex and Gender Information Value Date Recorded Sex Assigned at Not on file Legal Sex Female 1:55 PM CDT Gender Identity Not on file Sexual Orientation Not on file documented as of this encounter Miscellaneous Notes * Telephone Encounter - Darshana Darling - 05/03/2024 3:26 PM CDT Patient cancelled appt with Dr Dunlap via the my chart for 05-02. She is wanting to rsch. I called to rsch appt and had to leave a message asking her to call back. * Telephone Encounter - Lydia Pham - 04/24/2024 1:25 PM CDT Thank you! * Telephone Encounter - Lydia Pham - 04/23/2024 8:34 AM CDT Phu, as per CARLOS Charles please schedule a hospital follow up with Dr. Dunlap for elevated fecal calprotectin. I put info in your basket. Thanks. documented in this encounter Plan of Treatment Not on file documented as of this encounter Visit Diagnoses Not on filedocumented in this encounter Care Teams Conveyor Line Battery Charger Relationship Specialty Start Date End Date Maurice Duff Jr., MD [address] [place] [id number] PCP - General Family Medicine 03/11/24 documented as of this encounter
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
--- OUTSIDE RECORDS SUMMARY | 2024-07-30 14:09 | XMS_ITS | Encounter Summary ---
Author Organization [facility] Healthcare Address [address] [place] [address] Care Team Providers Care J2Ee Architect Name Role Phone Omega Khanna MD, Maurice Parks Primary Care Provider Reason for Visit * Reason Onset Date Comments Scheduling Appointments 07/24/2024 Encounter Details Date Type Department Care Team (Late st Contact Info) Description 07/24/2024 Telephone [facility] G[facility]ology at [facility] [address] [facility] [address] [place] [phone] Candace Dunlap MD [address] [address] Scheduling Appointments Social History Tobacco Use Types Packs/Day Years [...] often do you attend chur ch or episcopal services? Never 04/05/2024 Do you belong to any clubs o r organizations such as spiritism groups, unions, fraternal or athletic groups, or [...] any time in the past 12 m [facility], were you homeless or living in a longterm (including now)? No 04/05/2024 Personal Safety Answer [...] encounter Miscellaneous Notes * Telephone Encounter - Melania Tracey - 07/24/2024 3:38 PM CST Please contact patient to schedule appointment. CORRECTIONS documented in this encounter Plan of Treatment Not on file documented as of this encounter Visit Diagnoses Not on filedocumented in this encounter Care Teams J2Ee Architect Relationship Specialty Start Date End Date Maurice Duff Jr., MD [address] [address] PCP - General Family Medicine 03/11/24 documented as of this encounter
--- OUTSIDE RECORDS SUMMARY | 2024-07-30 14:09 | XMS_ITS | Encounter Summary ---
Author Organization [facility] Healthcare Address [address] [address] Care Team Providers Care Miller Head Assistant Wet Process Name Role Phone Omega Khanna MD, Maurice Parks Primary Care Provider Reason for Visit * Reason Comments Rapid Heart Rate Encounter Details Date Type Department Care Team (Late st Contact Info) Description 05/27/2024 6:28 AM CDT - 05/27/2024 8:49 AM CDT Emergency [facility] Emergency Department [address] [place] [address] Nicol Chaudhari MD [address] [place] [address] SVT (supraventricular tachycardia) (HCC) (Primary Dx) Discharge Disposition: Discharge to home or self care Social History Tobacco Use Types Packs/Day Years [...] 04/05/2024 How often do you attend chur or mandaeism services? Never 04/05/2024 Do you belong to any clubs o r organizations such as taoist groups, unions, fraternal or athletic groups, or [...] any time in the past 12 m [facility], were you homeless or living in a detention (including now)? No 04/05/2024 Personal Safety Answer [...] Mass Index 25.7 05/27/2024 6:31 AM CDT documented in this encounter Discharge Instructions * Discharge Instructions* Nicol Chaudhari MD - 05/27/2024 8:36 AM CDT Please continue to take all your prescribed medication for your SVT. You were found to have low potassium. Please take the prescribed potassium repletion for a week. 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 Please call number above to schedule anappointment. If you have repeat symptoms that do not resolve on its own, please return to the ED for care. documented in this encounter Medications at Time of Discharge ARIPiprazole (ABILIFY) 5 mg tablet Take 0.5 tablets (2.5 mg total) by mouth daily clonazePAM (KlonoPIN) 0.5 mg tablet Take 1 tablet (0.5 mg total) by mouth 3 (three) times a day as needed for anxiety DULoxetine DR (CYMBALTA) 30 mg capsule Take 1 capsule (30 mg total) by mouth with evening meal famotidine (PEPCID) 40 mg tablet Take 1 tablet (40 mg total) by mouth nightly as needed for heartburn lamoTRIgine (LaMICtal) 25 mg tablet Take 2 tablets (50 mg total) by mouth daily levonorgestrel & ethinyl estradiol (AMETHIA) 0.15 mg-30 mcg tablets,dose pack,3 month Take 1 tablet by mouth daily lumateperone (Caplyta) 21 mg capsule Take 21 mg by mouth daily traZODone (DESYREL) 50 mg tablet Take 1 tablet (50 mg total) by mouth nightly as needed for sleep verapamiL (CALAN) 40 mg tablet Take 1 tablet (40 mg total) by mouth daily 30 tablet 1 04/10/2024 5 potassium chloride ER (KLOR-CON) 10 mEq CR tablet Take 1 tablet/capsule (10 mEq total) by mouth 2 (two) times a day for 5 days 10 tablet/capsule 05/27/2024 4 documented as of this encounter Ordered Prescriptions Prescription Sig Dispense Quantity Refills Last Filled Start Date End Date potassium chloride ER (KLOR-CON) 10 mEq CR tablet Take 1 tablet/caps ule (10 mEq total) by mouth 2 (two) times a day for 5 days 10 tablet/capsule 05/27/2024 06/01/2024 documented in this encounter Discharge Disposition Disposition Code Departure Means Destination Comment s Discharge to home or self care documented in this encounter ED Notes * Nicol Chaudhari MD - 05/27/2024 7:24 AM CDT HPI Chief Complaint Patient presents with Rapid Heart Rate Cata Urena is a 39 y.o. female with a PMH of known SVT on verapamil presenting with palpitationthat started while at work about 30 minutes ago. Personal feels similar to prior episodes of SVT. This was diagnosed 2 years ago. Ever since being on medication, patient has not had an episode in thelast 6 months. 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 Patient denies any recent lifestyle changes. She works night shifts but that is normal for her. No recent increase in caffeine intake. Normal sleep. No known triggers. The time of evaluation. Patient is self converted to normal sinus rhythm. Currently denies any chest pain or palpitations or shortness of breath. Patient History: Patient Active Problem List Diagnosis Date Noted Greater trochanteric pain syndrome 04/30/2024 Hip pain 04/30/2024 On total parenteral nutrition 04/09/2024 Intractable vomiting 03/31/2024 Intractable nausea and vomiting 03/30/2024 Chest pain 03/29/2024 Bipolar disorder, in partial remission, most recent episode mixed (CMS/HCC) ([facility]) 03/11/2024 PSVT (paroxysmal supraventricular tachycardia) ([facility]) 03/11/2024 Mixed hyperlipidemia 03/11/2024 Vaginal vestibulitis 03/11/2024 Generalized anxiety disorder 07/07/2021 Bipolar disorder ([facility]) 07/07/2021 Insomnia 07/07/2021 Hip pain, chronic 03/31/2017 Gastroesophageal reflux disease 06/22/2016 Allergic rhinitis due to pollen 12/08/2015 Vitamin D deficiency disease 08/26/2015 Past Medical History: Diagnosis Date Allergic rhinitis due to pollen 12/08/2015 Anxiety Bipolar disorder ([facility]) 07/07/2021 Bipolar disorder, in partial remission, most recent episode mixed (CMS/HCC) ([facility]) 03/11/2024 Chest pain 03/29/2024 Depression Gastroesophageal reflux disease 06/22/2016 Generalized anxiety disorder 07/07/2021 GERD (gastroesophageal reflux disease) Hip pain, chronic 03/31/2017 Insomnia 07/07/2021 Intractable nausea and vomiting 03/30/2024 Intractable vomiting 03/31/2024 Mixed hyperlipidemia 03/11/2024 On total parenteral nutrition 04/09/2024 PSVT (paroxysmal supraventricular tachycardia) ([facility]) 03/11/2024 Vaginal vestibulitis Vitamin D deficiency disease 08/26/2015 Past Surgical History: Procedure Laterality Date SECTION COLONOSCOPY 04/19/2013 The examined portion of the ileum was normal. This was biopsied. - The entire examined colon is normal. This was biopsied. UPPER GASTROINTESTINAL ENDOSCOPY 04/01/2024 Normal esophagus. - Normal stomach. Biopsied. - Normal examined duodenum. Family History Problem Relation Age of Onset Breast cancer Mother Hypertension Mother Hypothyroidism Mother Hypertension Father Social History Tobacco Use Smoking status: Never Passive exposure: Never Smokeless tobacco: Never Substance and Sexual Activity Drug use: Yes Types: Marijuana Comment: uses 2x per month on average Sexual activity: Yes Partners: Male control/protection: OCP Alcohol Use: Not on file Social History Social History Narrative Not on file Review of Systems Review of systems: Denies fevers. All others negative except as mentioned in the HPI Physical Exam ED Triage Vitals Temp Pulse Resp BP SpO2 05/27/2434 05/27/2463005/27/2463005/27/2463005/27/24630 36.8 ??C (98.2 ??F) (!) 193 18 127/92 98 % Temp src Heart Rate Source Patient Position BP Location FiO2 (%) 05/27/24630 -- -- -- -- Oral Height Height Method Weight Weight Method 05/27/24630 -- 05/27/24630 -- 1.549 m (5' 1 ) 61.7 kg (136 lb) Physical Exam Constitutional: No acute distress HENT: Head: Normocephalic and atraumatic. Eyes: Conjunctivae are normal. PERRL. No scleral icterus. Cardiovascular: Tachycardia and regular rhythm. No murmur heard. Pulmonary: Clear to auscultation b/l. No respiratory distress. Abdominal: Soft, non-tender, non-distended Musculoskeletal: Normal ROM of extremities. No edema. Neurological: Awake, alert, motor/sensory grossly intact. Skin: Skin is warm and dry. Psychiatric: Behavior is normal. Thought content normal. Nursing note and vitals reviewed. MDM Amount and/or Complexity of Data Reviewed Decide to obtain previous medical records or to obtain history from someone other than the patient:yes Cata Urena is a 39 y.o. female presenting with palpitation and found to be in SVT on cardiac tracing. Vitals stable. Initial vagal maneuver unsuccessful. While waiting to start chemical cardioversion, patient self converted to sinus rhythm. Patient noted immediate resolution of her tachycardia.With chest pain or shortness of breath. Will obtain basic labs to rule out electrolyte abnormality.Will trial to ambulate patient and monitoring in the ED. If no recurrence of SVT, plantar pad patient resume home medication and follow up with Cardiology. Strict return precautions were discussed with patient/family. Questions were answered. Patient/family expressed verbal understanding and agreement with plan. ED Course as of 05/27/24 1418 Time: 05/27 0740 Value: WBC(!): 16.3 Comment: No sick symptoms/fever/chills By: Nicol Chaudhari MD Time: 05/27 740 Value: Pulse: 99 Comment: (Reviewed) By: Nicol Chaudhari MD Time: 05/27 740 Comment: Pt receiving oral hydration in the ED By: Nicol Chaudhari MD Time: 05/27 0834 Comment: Patient reassessed at bedside, continues to be asymptomatic. Ambulated in the ED without any symptoms. Discussed potassium repletion. Will provide cardiology information for outpatient follow up. Discuss elevated white count. Discussed that it may be acute stress response due to the fact that she does not have any sick symptoms. Patient aware. By: Nicol Chaudhari MD SVT (supraventricular tachycardia) ([facility]) ATTENDING ATTESTATION Nicol Chaudhari MD 05/27/24 1418 * Patricia Garcia RN - 05/27/2024 6:30 AM CDT Patient arrives with rapid heart rate in 190s. Hx of SVT on verapamil. Denies CP, SOB, n/v/d. Last episode at least 6 months ago. documented in this encounter Miscellaneous Notes * ED Procedure Note - Nicol Chaudhari MD - 05/27/2024 8:49 AM CDTAssociated Order(s): Critical Care Procedure Critical Care Performed by: Nicol Chaudhari MD Authorized by: Nicol Chaudhari MD Critical care provider statement: As reflected in the history, physical exam, orders, notes, and/or MDM, I was personally present while the patient was critically ill and provided critical care services for 25 minutes, excluding timeinvolved in separately billable procedures. Critical care was necessary to treat or prevent imminent or life- threatening deterioration of the following condition(s): tachy/ron arrhythmic event Critical care was time spent by me providing the following: continuous telemetry, continuous pulse oximetry and serial bedside patient exams Vagal maneuver Nicol Chaudhari MD 05/28/24 0711 documented in this encounter Plan of Treatment Pending Results Name Type Priority Associated Diagnoses Date /Time Comprehensive metabolic panel Lab STAT 05/27/2024 6:56 AM CDT Scheduled Orders Name Type Priority Associated Diagnoses Orde r Schedule Comprehensive metabolic panel Lab STAT Once for 1 Occur rences starting 05/27/2024 until 05/27/2024 documented as of this encounter Procedures Procedure Name Priority Date/Time Associated Diagnosis Comments ED CRITICAL CARE Routine 05/27/2024 8:49 AM CDT ECG 12-LEAD Routine 05/27/2024 6:58 AM CDT EGFR STAT 05/27/2024 6:56 AM CDT THYROID FUNCTION CASCADE STAT 05/27/2024 6:56 AM CDT CBC WITH AUTO DIFFERENTIAL STAT 05/27/2024 6:56 AM CDT MANUAL DIFFERENTIAL STAT 05/27/2024 6 :56 AM CDT PHOSPHORUS STAT 05/27/2024 6:56 AM CDT MAGNESIUM STAT 05/27/2024 6:56 AM CDT COMPREHENSIVE METABOLIC PANEL STAT 05/27/2024 6:56 AM CDT ECG 12-LEAD STAT 05/27/2024 6:31 AM CDT documented in this encounter Results * Critical Care (05/27/2024 8:49 AM [...] AM CDT) 05/27/2024 6:58 AM CDT Narrative [facility] - 05/27/2024 10:17 AM CDT Vent Rate: 97 bpm RR Interval: 617 msec NC Interval: 129 msec QRS Duration: 76 msec QT Interval: 331 msec QTC Interval: 385 msec P-R-T Viola: 53 - 36 - 41 degrees IMPRESSION: SINUS RHYTHM POSSIBLE LEFT ATRIAL ENLARGEMENT POSSIBLE RIGHT VENTRICULAR CONDUCTION DELAY MODERATE ST DEPRESSION ABNORMAL ECG Electronically Signed By: Zacarias Joseph MD, [facility] Nicol Chaudhari MD ECG ORDERABLES Final Resu lt [facility] * (ABNORMAL) Manual Differential (05/27/2024 6:56 AM CDT) Differential Manual Cells Counted 100 [facility] Neutrophil abs 10.1(H) 1.5 - 6.5 K/cumm [facility] Lymphocyte abs 4.2(H) 0.8 - 3.3 K/cumm [facility] Monocyte abs 1.5(H) 0.2 - 0.8 K/cumm [facility] Eosinophil abs 0.5 0.0 - 0.5 K/cumm [facility] Neutrophil pct 62.0 % [facility] Comment: Differenial performed on albumin smear. Interpretive Data Percent cell count reference ranges are not reported, since discordance with absolute values may lead to misinterpretation of CBC data. Current Interpretive Data was last revised on 2017. Lymphocyte pct 26.0 % [facility] Comment: Interpretive Data Percent cell count reference ranges are not reported, since discordance with absolute values may lead to misinterpretation of CBC data. Current Interpretive Data was last revised on 2017. Monocyte pct 9.0 % [facility] Comment: Interpretive Data Percent cell count reference ranges are not reported, since discordance with absolute values may lead to misinterpretation of CBC data. Current Interpretive Data was last revised on 2017. Eosinophil pct 3.0 % [facility] Comment: Interpretive Data Percent cell count reference ranges are not reported, since discordance with absolute values may lead to misinterpretation of CBC data. Current Interpretive Data was last revised on 2017. RBC morphology Normal [facility] Platelet morphology Normal [facility] Blood 05/27/2024 6:56 AM CDT 05/27/2024 7:21 AM CDT us Nicol Chaudhari MD LAB BLOOD ORDERABLES Final Result [facility] [address] Department [place] [address] * (ABNORMAL) Comprehensive metabolic panel (05/27/2024 6:56 AM CDT) Sodium 135 135 - 145 mmol/L Potassium, pl 3.2(L) 3.3 - 4.9 mmol/L [facility] Chloride 101 97 - 110 mmol/L [facility] CO2 21(L) 22 - 32 mmol/L [facility] Anion gap 13 2 - 15 mmol/L [facility] BUN 11 6 - 25 mg/dL [facility] Creatinine 0.72 0.60 - 1.10 mg/dL [facility] Glucose 92 70 - 199 mg/dL [facility] Comment: Interpretive Data Fasting glucose [...] 2022. Calcium 9.0 8.5 - 10.3 mg/dL [facility] Bilirubin, total 0.3 0.1 - 1.2 mg/dL [facility] Protein, pl 7.4 6.5 - 8.5 g/dL [facility] Albumin 4.1 3.5 - 5.0 g/dL [facility] Alk phos 84 40 - 130 Units/L [facility] ALT 19 7 - 45 Units/L [facility] AST 22 10 - 45 Units/L [facility] Blood 05/27/2024 6:56 AM CDT 05/27/2024 6:56 AM CDT us Nicol Chaudhari MD LAB BLOOD ORDERABLES Final Result [facility] [address] Department [place] [address] * eGFR (05/27/2024 6:56 AM CDT) eGFR [...] Chaudhari MD LAB BLOOD ORDERABLES Final Result [facility] [address] Department [place] [address] * Phosphorus (05/27/2024 6:56 AM CDT) Pathologist [facility] Phosphorus, pl 2.4 2.3 - 4.5 mg/dL Blood 05/27/2024 6:56 AM CDT 05/27/2024 7:21 AM CDT Nicol Chaudhari MD LAB BLOOD ORDERABLES Final Result Performing Organization Address City/[facility]/ZIP Co de Phone Number [facility] [address] [facility] [place] [address] * Magnesium (05/27/2024 6:56 AM CDT) [facility] Magnesium 2.0 1.4 - 2.5 mg/dL Blood 05/27/2024 6:56 AM CDT 05/27/2024 7:21 AM CDT Nicol Chaudhari MD LAB BLOOD ORDERABLES Final Result Performing Organization Address [facility] Co de Phone Number [facility] [address] [place] [address] * Thyroid Function [place] (05/27/2024 6:56 AM CDT) [facility] TSH 3.78 0.30 - 4.20 mcIUnit/mL Blood 05/27/2024 6:56 AM CDT 05/27/2024 7:21 AM CDT Nicol Chaudhari MD LAB BLOOD ORDERABLES Final Result Performing Organization Address City/[facility] Co de Phone Number [facility] [address] [place] [address] * (ABNORMAL) CBC with auto differential (05/27/2024 6:56 AM CDT) [facility] WBC 16.3(H) 3.8 - 9.9 K/cumm Hgb 12.9 11.9 - 15.5 g/dL [facility] Hct 38.3 35.6 - 45.5 % [facility] Plt 432(H) 150 - 400 K/cumm [facility] MPV 10.6 9.1 - 12.3 fL [facility] RBC 4.28 3.90 - 5.20 M/cumm [facility] MCV 89.5 81.3 - 96.4 fL [facility] MCH 30.1 27.1 - 33.3 pg [facility] MCHC 33.7 32.3 - 35.7 g/dL [facility] RDW CV 14.8 11.1 - 14.9 % [facility] RDW SD 47.9 35.7 - 48.1 fL [facility] NRBC abs 0.03(H) 0.00 - 0.01 K/cumm [facility] Blood (Blood, Venous) 05/27/2024 6:56 AM CDT 05/27/2024 7:21 AM CDT Nicol Chaudhari MD LAB BLOOD ORDERABLES Final Result Performing Organization Address [facility] Co de Phone Number [facility] [address] Department [place] [address] * ECG 12 lead (05/27/2024 6:31 AM CDT) 05/27/2024 6:31 AM CDT Narrative [facility] - 05/27/2024 10:17 AM CDT Vent Rate: 192 bpm RR Interval: 311 msec NC Interval: 0 msec QRS Duration: 187 msec QT Interval: 236 msec QTC Interval: 334 msec P-R-T Viola: 0 - 53 - 0 degrees IMPRESSION: SVT marked anterior lateral st depression consistent with ischemia Electronically Signed By: Zacarias Joseph MD, [facility] us Nicol Chaudhari MD ECG ORDERABLES Final Resu lt Performing Organization Address [facility]/ZIP Co de Phone Number [facility] [employer] [facility] documented in this encounter Visit Diagnoses Diagnosis SVT (supraventricular tachycardia) (HCC)- Primary Other specified cardiac dysrhythmias documented in this encounter Administered Medications Inactive Administered Medications - up to 3 most recent administrations Medication Order MAR Action Action Date Dose Rate Site potassium chloride ER (KLOR-CON) extended release tablet 40 mEq 40 mEq, oral, Once, On Mon05/27/24 at 0808, For 1 dose, Do not crush, chew, cut, dissolve, open or otherwise manipulate tablet/capsule. Given 05/27/2024 8:45 AM CDT 40 mEq documented in this encounter Discontinued Medications Medication Sig Discontinue Reason Start Date End Da te cariprazine (Vraylar) 1.5 mg capsule capsule Take 1 capsule (1.5 mg total) by mouth daily Medication called into primary pharmacy by dr emanuel 04/09/2024 05/27/2024 mirtazapine (REMERON) 7.5 mg tablet Take 1 tablet (7.5 mg total) by mouth nightly 04/09/2024 05/27/[address] (CYMBALTA) 30 mg capsule Take 1 capsule (30 mg total) by mouth with evening meal 04/09/2024 05/27/2024 famotidine (PEPCID) 40 mg tablet Take 1 tablet (40 mg total) by mouth nightly 03/11/2024 05/27/2024 ondansetron ODT (ZOFRAN-ODT) 4 mg disintegrating tablet Take 1 tablet (4 mg total) by mouth every 8 (eight) hours as needed for nausea or vomiting 03/28/2024 05/27/2024 ramelteon (ROZEREM) 8 mg tabletIndications:Sleep- Onset Insomnia Take 1 tablet (8 mg total) by mouth nightly 04/09/2024 05/27/2024 documented as of this encounter Historical Medications * This list may reflect changes made after this encounter. traZODone (DESYREL) 50 mg tablet Take 1 tablet (50 mg total) by mouth nightly as needed for sleep ARIPiprazole (ABILIFY) 5 mg tablet Take 0.5 tablets (2.5 mg total) by mouth daily lamoTRIgine (LaMICtal) 25 mg tablet Take 2 tablets (50 mg total) by mouth daily lumateperone (Caplyta) 21 mg capsule Take 21 mg by mouth daily famotidine (PEPCID) 40 mg tablet Take 1 tablet (40 mg total) by mouth nightly as needed for heartburn DULoxetine DR (CYMBALTA) 30 mg capsule Take 1 capsule (30 mg total) by mouth with evening meal levonorgestrel & ethinyl estradiol (AMETHIA) 0.15 mg-30 mcg tablets,dose pack,3 month Take 1 tablet by mouth daily added in this encounter Active and Recently Administered Medications Times are shown in CDT. Scheduled Medication Order 05/25/2024 05/26/2024 05/27/2024 potassium chloride ER (KLOR-CON) extended release tablet 40 mEq (COMPLETED) 40 mEq, oral, Once, On 05/27/24 at 0808, For 1 dose, Do not crush, chew, cut, dissolve, open or otherwise manipulate tablet/capsule. 0845 (Given - Provid er: Gregorio Fatima RN) documented in this encounter Orders Nursing Count Last Ordered Date First Orde red Date CONTINUOUS PULSE OXIMETRY 1 05/27/2024 IV Count Last Ordered Date First Orde red Date SALINE LOCK IV 1 05/27/2024 documented in this encounter Care Teams Miller Head Assistant Wet Process Relationship Specialty Start Date End Date Maurice Duff Jr., MD [address] [address] PCP - General Family Medicine 03/11/24 documented as of this encounter
--- OUTSIDE RECORDS SUMMARY | 2024-07-30 14:09 | XMS_ITS | Referral Summary ---
Author Organization [facility] [place] [facility] Address [address] [place] [address] Care Team Providers Care [employer] Name Role Phone Omega Khanna MD, Maurice Parks Primary Care Provider Encounters Date Type Department Care Team Description 07/30/2024 Telephone [place] [id number] [id number] Maurice Duff Jr., MD Medical Question/Miscellaneou s 07/24/2024 Telephone [facility] G[facility]ology at [facility] [address] [facility] [address] [place] [phone] Candace Dunlap MD Scheduling Appointments 05/27/2024 6:28 AM CDT - 05/27/2024 8:49 AM CDT Emergency [facility] Emergency Department [address] [place] [address] Nicol Chaudhari MD SVT (supraventricular tachycardia) (HCC) (Primary Dx) Discharge Disposition: Discharge to home or self care from Last 3 Months Allergies Active Allergy Reactions Criticality Noted Date [...] in partial remission, most recent episode mixed ([facility]) 03/11/2024 Assessment & Plan (03/11/2024 9:57 AM [...] bedtime. 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 Never 04/05/2024 Do you belong to any clubs o r organizations such as adventism groups, unions, fraternal or athletic groups, or [...] any time in the past 12 m [facility], were you homeless or living in a senior living (including now)? No 04/05/2024 Personal Safety Answer [...] on file Sexual Orientation Not on file Last Filed [...] 05/27/2024 6:31 AM CDT Plan of Treatment Not on file [...] AM CDT) 05/27/2024 6:58 AM CDT Narrative [facility] - 05/27/2024 10:17 AM CDT Vent Rate: 97 bpm RR Interval: 617 msec VA Interval: 129 msec QRS Duration: 76 msec QT Interval: 331 msec QTC Interval: 385 msec P-R-T [place]: 53 - 36 - 41 degrees IMPRESSION: SINUS RHYTHM POSSIBLE LEFT ATRIAL ENLARGEMENT POSSIBLE RIGHT VENTRICULAR CONDUCTION DELAY MODERATE ST DEPRESSION ABNORMAL ECG Electronically Signed By: Zacarias Joseph MD, [facility] us Nicol Chaudhari MD ECG ORDERABLES Final Resu lt [facility] * eGFR (05/27/2024 6:56 AM CDT) eGFR [...] of Race in Diagnosing Kidney Disease, JASN 202). The CKD-EPI equation should not be used for patients with unstable renal function and has not been validated in children and those over 70. Current interpretive data was last reviewed 2021. Blood 05/27/2024 6:56 AM CDT 05/27/2024 7:21 AM CDT Nicol Chaudhari MD LAB BLOOD ORDERABLES Final Result [facility] [address] [facility] [place] [employer] [place] [address] * Thyroid Function Perry (05/27/2024 6:56 AM CDT) Pathologist [facility] TSH 3.78 0.30 - 4.20 mcIUnit/mL Blood 05/27/2024 6:56 AM CDT 05/27/2024 7:21 AM CDT Nicol Chaudhari MD LAB BLOOD ORDERABLES Final Result Performing Organization Address [facility] Co de Phone Number [facility] [address] [facility] [place] [employer] [place] [address] * (ABNORMAL) CBC with auto differential (05/27/2024 6:56 AM CDT) [facility] WBC 16.3(H) 3.8 - 9.9 K/cumm Hgb 12.9 11.9 - 15.5 g/dL [facility] Hct 38.3 35.6 - 45.5 % [facility] Plt 432(H) 150 - 400 K/cumm [facility] MPV 10.6 9.1 - 12.3 fL [facility] RBC 4.28 3.90 - 5.20 M/cumm [facility] MCV 89.5 81.3 - 96.4 fL [facility] MCH 30.1 27.1 - 33.3 pg [facility] MCHC 33.7 32.3 - 35.7 g/dL [facility] RDW CV 14.8 11.1 - 14.9 % [facility] RDW SD 47.9 35.7 - 48.1 fL [facility] NRBC abs 0.03(H) 0.00 - 0.01 K/cumm [facility] Blood (Blood, Venous) 05/27/2024 6:56 AM CDT 05/27/2024 7:21 AM CDT Nicol Chaudhari MD LAB BLOOD ORDERABLES Final Result [facility] [address] Department [place] [address] * (ABNORMAL) Manual Differential (05/27/2024 6:56 AM CDT) Differential Manual Cells Counted 100 [facility] Neutrophil abs 10.1(H) 1.5 - 6.5 K/cumm [facility] Lymphocyte abs 4.2(H) 0.8 - 3.3 K/cumm [facility] Monocyte abs 1.5(H) 0.2 - 0.8 K/cumm [facility] Eosinophil abs 0.5 0.0 - 0.5 K/cumm [facility] Neutrophil pct 62.0 % [facility] Comment: Differenial performed on albumin smear. Interpretive Data Percent cell count reference ranges are not reported, since discordance with absolute values may lead to misinterpretation of CBC data. Current Interpretive Data was last revised on 2017. Lymphocyte pct 26.0 % [facility] Comment: Interpretive Data Percent cell count reference ranges are not reported, since discordance with absolute values may lead to misinterpretation of CBC data. Current Interpretive Data was last revised on 2017. Monocyte pct 9.0 % [facility] Comment: Interpretive Data Percent cell count reference ranges are not reported, since discordance with absolute values may lead to misinterpretation of CBC data. Current Interpretive Data was last revised on 2017. Eosinophil pct 3.0 % [facility] Comment: Interpretive Data Percent cell count reference ranges are not reported, since discordance with absolute values may lead to misinterpretation of CBC data. Current Interpretive Data was last revised on 2017. RBC morphology Normal [facility] Platelet morphology Normal [facility] Blood 05/27/2024 6:56 AM CDT 05/27/2024 7:21 AM CDT us Nicol Chaudhari MD LAB BLOOD ORDERABLES Final Result [facility] [address] [facility] [employer] [place], [place] [id number] * Phosphorus (05/27/2024 6:56 AM CDT) [facility] Phosphorus, pl 2.4 2.3 - 4.5 mg/dL Blood 05/27/2024 6:56 AM CDT 05/27/2024 7:21 AM CDT Nicol Chaudhari MD LAB BLOOD ORDERABLES Final Result Performing Organization Address [facility]/ZIP Co de Phone Number [facility] [address] Department [place] [employer] [address] * Magnesium (05/27/2024 6:56 AM CDT) [facility] Magnesium 2.0 1.4 - 2.5 mg/dL Blood 05/27/2024 6:56 AM CDT 05/27/2024 7:21 AM CDT Nicol Chaudhari MD LAB BLOOD ORDERABLES Final Result Performing Organization Address [facility]/ZIP Co de Phone Number [facility] [address] Department of [employer] [place], [place] [id number] * (ABNORMAL) Comprehensive metabolic panel (05/27/2024 6:56 AM CDT) [facility] Sodium 135 135 - 145 mmol/L Potassium, pl 3.2(L) 3.3 - 4.9 mmol/L [facility] Chloride 101 97 - 110 mmol/L [facility] CO2 21(L) 22 - 32 mmol/L [facility] Anion gap 13 2 - 15 mmol/L [facility] BUN 11 6 - 25 mg/dL [facility] Creatinine 0.72 0.60 - 1.10 mg/dL [facility] Glucose 92 70 - 199 mg/dL [facility] Comment: Interpretive Data Fasting glucose >/= 126 [...] classification and Diagnosis of Diabetes Diabetes Care 202; 46: S19-S40. Current interpretive data was last revised 2022. Calcium 9.0 8.5 - 10.3 mg/dL [facility] Bilirubin, total 0.3 0.1 - 1.2 mg/dL [facility] Protein, pl 7.4 6.5 - 8.5 g/dL [facility] Albumin 4.1 3.5 - 5.0 g/dL [facility] Alk phos 84 40 - 130 Units/L [facility] ALT 19 7 - 45 Units/L [facility] AST 22 10 - 45 Units/L [facility] Blood 05/27/2024 6:56 AM CDT 05/27/2024 6:56 AM CDT us Nicol Chaudhari MD LAB BLOOD ORDERABLES Final Result Performing Organization Address [facility]/State/ZIP Co de Phone Number [facility] [address] [place] [address] * ECG 12 lead (05/27/2024 6:31 AM CDT) 05/27/2024 6:31 AM CDT Narrative [facility] - 05/27/2024 10:17 AM CDT Vent Rate: 192 bpm RR Interval: 311 msec VA Interval: 0 msec QRS Duration: 187 msec QT Interval: 236 msec QTC Interval: 334 msec P-R-T [place]: 0 - 53 - 0 degrees IMPRESSION: SVT marked anterior lateral st depression consistent with ischemia Electronically Signed By: Zacarias Joseph MD, [facility] us Nicol Chaudhari MD ECG ORDERABLES Final Resu lt [facility] * Screening Mammogram Bilateral W Perry (01/12/2024 [...] for bilateral Overall Assessment: 1 - Negative Aura Horne MD IMG MAMMO PROCEDURES Final Result * (ABNORMAL) High Risk HPV DNA Detection with Genotyping (Molecular component) (11/08/2023 2:02 PM CDT) HPV HR 16 Detected(A) Not Detected HPV HR 18 Not Detected Not Detected [facility] HPV HR Non 16/18 Not Detected Not Detected [facility] Comment: Interpretive Data Nucleic acid amplification for [...] this test have been verified by the [facility]. Correlate with separately reported cytology results, as applicable. Interpretive data last revised 23 Endocervical 11/08/2023 2:02 PM CDT 11/08/2023 7:53 PM CDT Narrative [facility] - 11/10/2023 9:27 PM CDT Clinical history and diagnosis->screening Testing type->Screening Last menstrual period (date if known)->unknown us Aura Horne MD LAB BODY FLUIDS AND STOOLS ORDERABLES Final Result [facility] [address] Department [place] [address] from Last 3 Months or Most Recently Relevant to Health Maintenance Insurance [facility] [employer] Address: [address] [address] [facility] [employer] Address: [address] [address] Advance Directives For more information, please contact: [phone] * Full Code (Latest Code Status on File) Date Activated Date Inactivated Comments 03/30/2024 10:54 PM 04/09/2024 7:05 PM Care Teams [employer] Relationship Specialty Start Date End Date Maurice Duff Jr., MD [address] [address] [place] [id number] PCP - General Family Medicine 03/11/24
--- OUTSIDE RECORDS SUMMARY | 2024-07-30 14:10 | XMS_ITS | Encounter Summary ---
Author Organization [facility] Healthcare Address [address] [place] [address] Care Team Providers Care Oceanographer Assistant Name Role Phone Omega Khanna MD, Maurice Parks Primary Care Provider Reason for Visit * Auth/Cert (Routine) Specialty Diagnoses / Procedures Referred By Contac t Referred To Contact Diagnoses Intractable nausea and vomiting Chest pain, unspecified type Nausea and vomiting, unspecified vomiting type Procedures na Referral ID Status Reason Start Date Expiration Date Visits Re quested Visits Authorized [id number] 1 1 Encounter Details Date Type Department Care Team (Late st Contact Info) Description 04/01/2024 3:09 PM CDT Anesthesia Event [facility] [address] [place] [id number] Juan Carlos Rios MD [address] [place] [address] Pastora Fontenot, MIR [address] [facility] [address] [facility] [address] [place] [address] Anesthesia Record Procedure Summary Procedure Name Responsible Anesthesiologist Anesthesia Start Time Anesthesia Stop Time ESOPHAGOGASTRODUODENOSCOPY BIOPSY Juan Carlos Rios MD 04/01/24 1509 04/01/24 1525 Events Date Time Event Comment 04/01/2024 1432 1509 An Start 1509 An Start Data 1509 In Room 1510 Patient Positioned Laterally 1511 Bite Block Placed 1511 An Induction The patient was reevaluated immediately before moderate or deep sedation use and before anesthesia induction. 1512 Proc Start 1512 Anesthesia Ready 1515 Proc Fin 1516 an stop data 1517 Out of Room 1525 Handoff to RN I completed my handoff to the receiving nurse during which we: 1. Patient identified 2. Responsible provider identified 3. Pertinent medical history reviewed 4. Procedure type and surgical course discussed 5. Intraoperative anesthetic management and any significant issues discussed 6. Expectations and concerns for postop period discussed 7. Questions solicited from receiving nurse 8. Patient disposition at the time of handoff: No value filed. 1525 An Stop 1547 Release from care Meds Name Total lidocaine (cardiac) syringe 2 % 100 mg propofol 180 mg sodium chloride 0.9% infusion 200 mL * Agents Name O2 * Blood No blood administrations on file. Lines, Drains, and Airways Type Details Placement Removal Peripheral IV Placement Date: 03/14 03/06; Placement Time: 1616; Catheter Size: 20 G; Orientation: Right; Location: Antecubital; Site Prep: Alcohol, Chlorhexidine; Insertion Attempts: 1; Patient Tolerance: Tolerated well; Removal Date: 04/02/24; Removal Time: 1501; Removal Reason: Phlebitis 03/30/24 1616 by Darshana Cabello RN 04/02/24 1501 by Emma Huerta RN documented in this encounter Social History Tobacco Use Types Packs/Day Years Used Date Smoking Tobacco: Never Passive Smoke Exposure: Never Smokeless Tobacco: Never PHQ-2 Answer Date Recorded PHQ-2 Total Score (If total score is 3 or more points, staff should administer the PHQ-9) 0 03/11/2024 Personal Safety Answer Date Recorded Have you [...] on file documented as of this encounter OR Notes * Anesthesia Postprocedure Evaluation - Pastora Fontenot CRNA - 04/01/2024 3:25 PM CDT Patient: Cata Urena Procedure Summary Date: 04/01/24 Room / Location: [facility] Anesthesia Start: 1509 Anesthesia Stop: 1525 Procedure: ESOPHAGOGASTRODUODENOSCOPY BIOPSY Diagnosis: Intractable nausea and vomiting (Intractable nausea and vomiting [R11.2]) Providers: Bruno Cobb MD Responsible Provider: Juan Carlos Rios MD Anesthesia Type: general TIVA ASA Status: 2 Anesthesia Type: general TIVA Last vitals BP (!) 73/49 Pulse 102 Temp 36.5 ??C (97.7 ??F) (Temporal) Resp 16 SpO2 97% Anesthesia Post Evaluation Patient location during evaluation: PACU (GI recovery area) Patient participation: complete - patient participated Level of consciousness: fully awake Pain management: adequate Airway patency: adequate Evidence of recall: no Cardiovascular status: acceptable and hemodynamically stable Respiratory status: acceptable and room air Hydration status: acceptable Pt is: normothermic Nausea/Vomiting status: none Comments: Repeat Bp 135/76 No notable events documented. * Anesthesia Preprocedure Evaluation - Juan Carlos Rios MD - 04/01/2024 2:30 PM CDT Images from the original note were not included. Anesthesia Evaluation Cata Urena is a 38 y.o. female ESOPHAGOGASTRODUODENOSCOPY Pre-Op Diagnosis Codes: * Intractable nausea and vomiting [R11.2] HISTORY HPI NPO since midnight. No recent emesis Past Medical History Neurological Pertinent negatives: CVA/stroke Cardiovascular Pertinent negatives: MD Gastrointestinal + GERD - on daily therapy. Symptoms weekly but < daily. Functional Capacity Functional capacity: 4-6 METs Review of Systems + nausea/vomiting (Severe nausea x5 days. No emesis today.) Patient Active Problem List Diagnosis Date Noted Intractable vomiting 03/31/2024 Intractable nausea and vomiting 03/30/2024 Chest pain 03/29/2024 Gastroesophageal reflux disease without esophagitis 03/11/2024 Bipolar disorder, in partial remission, most recent episode mixed (CMS/HCC) (HCC) 03/11/2024 PSVT (paroxysmal supraventricular tachycardia) ([facility]) 03/11/2024 Mixed hyperlipidemia 03/11/2024 Vaginal vestibulitis 03/11/2024 Past Medical History: Diagnosis Date Anxiety Depression GERD (gastroesophageal reflux disease) Vaginal vestibulitis Past Surgical History: Procedure Laterality Date SECTION OB History 1 Para 1 Term 1 AB Living 1 SAB IAB Ectopic Multiple Live Births 1 Allergies Allergen Reactions Metoclopramide Dystonia, Unknown, Stomach upset and Palpitations Latex Hives and Itching Red and swollen Metoclopramide Hcl Unknown Med List Status: Pharmacy Complete Set By: Adwoa Nascimento [facility] at 03/30/2024 9:28 PM Status Comment 03/30/2024 9:28 PM Only took abilify & cymbalta 03/30. Med List from [facility], Rx Fill Hx and interview with patient in Ed17 Taking? Last Dose Start Date End Date Provider ARIPiprazole (ABILIFY) 2 mg tablet 03/30/2024 -- -- ProviderBulmaro MD clonazePAM (KlonoPIN) 0.5 mg tablet -- -- -- Provider, MD Bulmaro DULoxetine DR (CYMBALTA) 60 mg capsule 03/30/2024 -- -- ProviderBulmaro MD famotidine (PEPCID) 40 mg tablet -- 03/11/24 -- Maurice Duff Jr., MD Take 1 tablet (40 mg total) by mouth nightly HYDROcodone-acetaminophen (NORCO) 5-325 mg per tablet -- 03/29/24 -- Donald Sahu MD Take 1 tablet by mouth every 6 (six) hours as needed for pain ondansetron ODT (ZOFRAN-ODT) 4 mg disintegrating tablet -- 03/28/24 -- Misty Brooks NP Take 1 tablet (4 mg total) by mouth every 8 (eight) hours as needed for nausea or vomiting pantoprazole DR (PROTONIX) 40 mg EC tablet -- 03/11/24 -- Maurice Duff Jr., MD Take 1 tablet (40 mg total) by mouth daily Notes: Stop prilosec Simpesse 0.15 mg-30 mcg (84)/10 mcg (7) tablets,dose pack,3 month -- 11/11/23 -- ProviderBulmaro MD traZODone (DESYREL) 50 mg tablet -- -- -- Bulmaro Garvey MD verapamiL (CALAN) 40 mg tablet -- -- -- ProviderBulmaro MD Current Facility-Administered Medications: [Transfer Hold] acetaminophen (TYLENOL) tablet 1,000 mg, 1,000 mg, oral, TID, 1,000 mg at 04/01/24 1025 [Transfer Hold] ARIPiprazole (ABILIFY) tablet 4 mg, 4 mg, oral, Daily, 4 mg at 04/01/24 1025 [Transfer Hold] clonazePAM (KlonoPIN) tablet 0.5 mg, 0.5 mg, oral, TID PRN [Held by Provider] DULoxetine DR (CYMBALTA) extended release capsule 60 mg, 60 mg, oral, Daily, 60 mg at 03/31/24 0834 [Held by Provider] enoxaparin (LOVENOX) syringe 40 mg, 40 mg, subcutaneous, Daily-2100, 40 mg at 03/30/24 2302 [Transfer Hold] famotidine (PEPCID) injection 20 mg, 20 mg, intravenous, Q12H ELLEN, 20 mg at 04/01/24 1025 [Transfer Hold] LORazepam (ATIVAN) injection 0.5 mg, 0.5 mg, intravenous, TID PRN, 0.5 mg at 04/01/24 0305 [Transfer Hold] morphine injection 2 mg, 2 mg, intravenous, Q3H PRN, 2 mg at 04/01/24 1153 [Transfer Hold] ondansetron (ZOFRAN) injection 4 mg, 4 mg, intravenous, TID, 4 mg at 04/01/24 0937 [Transfer Hold] prochlorperazine (COMPAZINE) injection 5 mg, 5 mg, intravenous, Q6H PRN, 5 mg at 04/01/24 1153 [Transfer Hold] ramelteon (ROZEREM) tablet 8 mg, 8 mg, oral, Nightly PRN sodium chloride 0.45% with potassium chloride 20 mEq/L infusion (premix), 125 mL/hr, intravenous, Continuous, Last Rate: 125 mL/hr at 04/01/24 0715, 125 mL/hr at 04/01/24 0715 sodium chloride 0.9% infusion, 30 mL/hr, intravenous, Continuous, Last Rate: 30 mL/hr at 04/01/24 1425, Rate Verify at 04/01/24 1425 [Transfer Hold] traMADoL (ULTRAM) tablet 50 mg, 50 mg, oral, Q6H PRN [Transfer Hold] traZODone (DESYREL) tablet 100 mg, 100 mg, oral, Nightly PRN, 100 mg at 03/31/24 2122 [Transfer Hold] verapamiL (CALAN) tablet 80 mg, 80 mg, oral, Daily, 80 mg at 04/01/24 1025 Social History Tobacco Use Smoking Status Never Passive exposure: Never Smokeless Tobacco Never Alcohol Use: Not on file Substance and Sexual Activity Drug Use Not on file Family History Problem Relation Age of Onset Breast cancer Mother Hypertension Mother Hypothyroidism Mother Hypertension Father Vitals: 04/01/24 1025 04/01/24 1146 04/01/24 1417 BP: 121/83 141/84 153/92 Pulse: 57 92 65 Resp: 18 18 Temp: 36.4 ??C (97.5 ??F) 36.5 ??C (97.7 ??F) SpO2: 100% 100% PT: No results found for requested labs within last 30 days. INR: No results found for requested labs within last 30 days. APTT: No results found for requested labs within last 30 days. Hgb A1C: No results found for requested labs within last 30 days. CBC RBC: 04/01/2024: 4.30 M/cumm RDW: No results found for requested labs within last 30 days. MCHC: 04/01/2024: 32.7 g/dL MCH: 04/01/2024: 29.1 pg MCV: 04/01/2024: 88.8 fL Hct: 04/01/2024: 38.2 % Hgb: 04/01/2024: 12.5 g/dL WBC: 04/01/2024: 6.3 K/cumm MPV: 04/01/2024: 10.7 fL Platelets: 04/01/2024: 334 K/cumm RDW CV: 04/01/2024: 13.2 % RDW Sd: 04/01/2024: 42.6 fL BMP Glucose: 04/01/2024: 71 mg/dL Calcium: 04/01/2024: 8.9 mg/dL Sodium: 04/01/2024: 137 mmol/L Potassium: 04/01/2024: 4.0 mmol/L CO2: 04/01/2024: 22 mmol/L Chloride: 04/01/2024: 105 mmol/L BUN: 04/01/2024: 6 mg/dL Creatinine: 04/01/2024: 0.75 mg/dL DOS Physical Exam Medical history, medications, and allergies reviewed. Attestation: This PAT evaluation 04/01/2024. Airway Exam: Mallampati: II Cervical ROM: FROM TM distance: normal Cardiovascular Exam: Rate: regular Rhythm: regular Pulmonary Exam: LCTA, bilat EENT Exam: trachea midline Dental Exam: Appears intact Current state: Patient's current state is cooperative. Anesthesia Plan ASA 2 My patient is approved for the Anesthesia Controlled Medication protocol when under care of a CLOTH FINISHING RANGE OPERATOR Planned anesthesia: General TIVA Induction: Induction: intravenous. Postoperative Plan: No postoperative mechanical ventilation intended. Informed Consent: Discussed plan with CLOTH FINISHING RANGE OPERATOR. Anesthesia plan and risks discussed with patient. Plan and Consent Comments: Consented for general anesthesia as backup plan with LMA/Endotracheal tube. Consent and Attending signature: I and/or my designee have discussed the anesthesia plan, benefits, possible alternatives, parental presence at time of induction (if indicated), and clinically relevant risks that may include dental injury, unintentional awareness, and/or other complications. The patient and/or parent/legal guardian understand, and agree to proceed. All questions answered. documented in this encounter Plan of Treatment Not on file documented as of this encounter Visit Diagnoses Not on filedocumented in this encounter Administered Medications Inactive Administered Medications - up to 3 most recent administrations Medication Order MAR Action Action Date Dose Rate Site lidocaine (cardiac) (XYLOCAINE) preservative free injection intravenous, As needed, Starting on Mon04/01/24 at 1511, Anesthesia Intra-op, Indications: Ventricular ArrhythmiasIndications:Ventricular Arrhythmias Given 04/01/2024 3:11 PM CDT 100 mg propofoL (DIPRIVAN) 10 mg/mL IV intravenous, As needed, Starting on Mon04/01/24 at 1511, Anesthesia Intra-op Given 04/01/2024 3:13 PM CDT 50 mg Given 04/01/2024 3:11 PM CDT 130 mg sodium chloride 0.9% infusion 30 mL/hr, intravenous, Continuous, Starting on 04/01/24 at 1445 New Bag 04/03/2024 1:55 AM CDT 30 mL/hr 30 mL/hr Restarted 04/01/2024 3:09 PM CDT New Bag 04/01/2024 2:19 PM CDT 30 mL/hr 30 mL/hr documented in this encounter Care Teams Oceanographer Assistant Relationship Specialty Start Date End Date Maurice Duff Jr., MD [facility] [address] [address] PCP - General Family Medicine 03/11/24 documented as of this encounter
--- OUTSIDE RECORDS SUMMARY | 2024-07-30 14:10 | XMS_ITS | Encounter Summary ---
Author Organization [facility] Healthcare Address [address] [place] [address] Care Team Providers Care Substance Abuse Nurse Name Role Phone Omega Khanna MD, [facility] Primary Care Provider Encounter Details Date Type Department Care Team (Late st Contact Info) Description 03/29/2024 Telephone [facility] Cardiology [address] [facility] [address] [place] [address] Dena Jaramillo MA Social History Tobacco Use Types Packs/Day Years [...] encounter Miscellaneous Notes * Telephone Encounter - Dena Jaramillo MA - 03/29/2024 8:20 AM CDT Called pt in regards to her 1230 appointment with the TRENCHER DRIVER today. Please transfer call of pt calls back documented in this encounter Plan of Treatment Not on file documented as of this encounter Visit Diagnoses Not on filedocumented in this encounter Care Teams Substance Abuse Nurse Relationship Specialty Start Date End Date Maurice Duff Jr., MD [address] [address] PCP - General Family Medicine 03/11/24 documented as of this encounter
--- OUTSIDE RECORDS SUMMARY | 2024-07-30 14:10 | XMS_ITS | Encounter Summary ---
Author Organization [facility] Healthcare Address [address] [place] [address] Care Team Providers Care Chief Compressor Station Engineer Name Role Phone Avery Hidalgo DO Primary Care Provider [phone] Encounter Details Date Type Department Care Team (Latest Contact Info) Description 11/27/2023 3:23 PM CDT - 11/27/2023 11:59 PM CDT Hospital Encounter [place] [address] [place] [address] Encounter for biopsy; HPV (human papilloma virus) infection Discharge Disposition: Discharge to home or self care Social History Tobacco Use Types Packs/Day Years Used Date Smoking Tobacco: Never Passive Smoke Exposure: Never Smokeless Tobacco: Never Personal Safety Answer Date Recorded Have you [...] Medications at Time of Discharge ARIPiprazole (ABILIFY) 2 mg tablet Take 1 tablet (2 mg total) by mouth daily 4 clonazePAM (KlonoPIN) 0.5 mg tablet TAKE 1 TABLET BY MOUTH EVERY MORNING AND 2 TABLETS BY MOUTH EVERY NIGHT AT BEDTIME. COLLAB. MD Cindy KING [address] (CYMBALTA) 60 mg capsule Take 1 capsule (60 mg total) by mouth daily 4 lamoTRIgine (LaMICtal) 100 mg tablet 11/20/2023 4 omeprazole (PriLOSEC) 20 mg capsule Take 1 capsule (20 mg total) by mouth 4 Simpesse 0.15 mg-30 mcg (84)/10 mcg (7) tablets,dose pack,3 month Take 1 tablet by mouth daily 11/11/2023 4 traZODone (DESYREL) 50 mg tablet Take 2 tablets (100 mg total) by mouth nightly as needed for sleep 4 verapamiL (CALAN) 40 mg tablet Take 2 tablets (80 mg total) by mouth daily 4 documented as of this encounter Discharge Disposition Disposition Code Departure Means Destination Discharge to home or self care documented in this encounter Plan of Treatment Not on file documented as of this encounter Procedures Procedure Name Priority Date/Time Associated Diagnosis Comments SURGICAL PATHOLOGY Routine 11/27/2023 11 :52 AM CDT Encounter for biopsy HPV (human papilloma virus) infection documented in this encounter Results * Surgical pathology (11/27/2023 11:52 AM CDT) Tissue (Endocervical/va ginal) 11/27/2023 11:52 AM CDT 11/28/2023 7:33 AM CDT Narrative PATHOLOGY [facility] - 11/29/2023 4:02 PM CDT [address] ??[address] Tele: ?? Kisha Parks MD - Chef Manager Note to Patients: This report may contain a detailed description of human tissue sent by a health care provider to the laboratory for pathologic evaluation. The content of this report is essential for diagnosis and may provide important critical findings. This information may be unfamiliar to patients to review without a medical professional present. It is advised that the patient review this report in the presence of a health care provider who can answer questions and explain the details. SURGICAL PATHOLOGY REPORT Patient Name: ??ÁNGELA IBRAHIM Address: ??[address] [place] ??[address] Gender: ??F : ??1985 (Age: 38) Service: ?? Location: ??, ?? Hospital #: ??[id number] Patient Type: ??[facility] SPECIMEN Accession #: ? [id number] Taken: ? 11/27/2023 Received ? 11/28/2023 Reported: ? 11/29/2023 Physician(s): ? Aura Horne MD DIAGNOSIS: Uterus, endocervix, curettage: ? - No endocervical epithelium demonstrated ? - Scant superficial squamous epithelium jap11/29/2023 16:02 Examining Pathologist: Ranjith Srivastava M.D. Report Reviewed and Electronically Signed By ??Ranjith Srivastava M.D. SPECIMEN TYPE: A: ENDOCERVICAL CURETTAGE CLINICAL IMPRESSION AND HISTORY: Encounter for biopsy, HPV 16+ GROSS DESCRIPTION: Received in formalin labeled [facility] and endocervical curettage is a cervical brush containing multiple fragments of translucent mucoid material, 0.5 x 0.3 x 0.1 cm in aggregate. ??The specimen is filtered and entirely submitted in A1. ?? jxi/11/28/2023 08:19 ? ,JXI MICROSCOPIC DESCRIPTION: Sections of the endocervical curettage show no distinct endocervical epithelium. ??Some admixed superficial squamous epithelial cells are seen. ??Deeper levels are reviewed. Clerical Data Follows A; [id number] REPORT IMAGES AND/OR SCANNED DOCUMENTS ONLY VIEWABLE IN PDF FORMAT The immunohistochemical test(s) cited in this report, if any, was developed and its performance characteristics determined by [facility] Pathology Department. ??It has not been cleared or approved by the U.S. Food and Drug Administration. ??The FDA has determined that such clearance or approval is not necessary. ??This test is used for clinical purposes. ??It should not be regarded as investigational or for research. ??[facility] Laboratory is certified under the Clinical Laboratory Improvement Amendments of 1988 (CLIA) as qualified to perform high complexity testing. ??Immunostains were performed on formalin-fixed paraffin embedded tissue using a polymer diaminobenzidine chromogen detection system. Antibodies used may include clone SP1 (rabbit monoclonal, estrogen receptor), clone 1E2 (rabbit monoclonal progesterone receptor), Ki-67 (rabbit monoclonal, 30-9), CD117 (rabbit polyclonal, c-kit), and anti-Her-2/christel (4B5) (rabbit monoclonal primary antibody). us Aura Horne MD LAB PATHOLOGY ORDERABLES F inal Result PATHOLOGY [facility] Laboratory Receiving [address] [place] [address] documented in this encounter Visit Diagnoses Diagnosis Encounter for biopsy HPV (human papilloma virus) infection documented in this encounter Care Teams Chief Compressor Station Engineer Relationship Specialty Start Date End Date Avery Hidalgo DO PCP - General 03/02/20 03/10/24 documented as of this encounter
--- OUTSIDE RECORDS SUMMARY | 2024-07-30 14:10 | XMS_ITS | Encounter Summary ---
Author Organization [facility] Healthcare Address [address] [place] [address] Care Team Providers Care Brooch Maker Novelty Name Role Phone Omega Khanna MD, [facility] Primary Care Provider Reason for Visit * Reason Comments Chest Pain * Auth/Cert (Routine) Specialty Diagnoses / Procedures Referred By Contac t Referred To Contact Diagnoses Intractable nausea and vomiting Chest pain, unspecified type Nausea and vomiting, unspecified vomiting type Procedures na Referral ID Status Reason Start Date Expiration Date Visits Re quested Visits Authorized [id number] 1 1 Encounter Details Date Type Department Care Team (Latest Contact Info) Description 03/30/2024 3:50 PM CDT - 04/09/2024 2:59 PM CDT Hospital Encounter [place] [id number] [place] [id number] Sravan Marsh, [address] [address] Jonathan Scruggs MD [facility] [place] [address] Nicholas Saba, [facility] [place] [address] Shanti Freedman MD [address] [place] [id number] Bruno Cobb MD [address] [place] [address] On total parenteral nutrition (Primary Dx); Chest pain, unspecified type; Nausea and vomiting, unspecified vomiting type; Intractable nausea and vomiting [R11.2]; Intractable vomiting; Intractable nausea and vomiting Discharge Disposition: Discharge to home or self [...] often do you attend chur ch or jehovah's witness services? Never 04/05/2024 Do you belong to any clubs o r organizations such as congregational groups, unions, fraternal or athletic groups, or [...] in the past 12 m [facility], were you homeless or living in a halfway (including now)? No 04/05/2024 Personal Safety Answer [...] Sign Reading Time Taken Comments Blood Pressure 115/72 04/09/2024 11:05 AM CDT Pulse 99 04/09/2024 11:05 AM CDT Temperature 36.7 ??C (98 ??F) 04/09/2024 11:05 AM CDT Respiratory Rate 16 04/09/2024 11:05 AM CDT Oxygen Saturation 100% 04/09/2024 11:05 AM CDT Inhaled Oxygen Concentration - - Weight 58.3 kg (128 lb 9.6 oz) 04/07/2024 7:45 A M CDT Height 154.9 cm (5' 0.98 ) 03/30/2024 10:37 PM C DT Body Mass Index 24.31 03/30/2024 10:37 PM CDT documented in this encounter Discharge Summaries * Shanti Freedman MD - 04/09/2024 12:50 PM CDT Inpatient Discharge Summary Patient Name - Ángela Ibrahim Patient Age - 38 yrs Patient - [id number] CSN - [id number] Document Creation Date: 04/09/2024 Admitting Provider, : Bruno Cobb MD Discharge Provider, MD: Shanti Freedman MD Primary Care Physician at Discharge: Maurice Duff Jr., MD [phone] Admission Date: 03/30/2024 Discharge Date/time: 04/09/2024 Admission Location: [facility] LOS - LOS: 9 days DETAILS OF HOSPITAL STAY Hospital Problems/Diagnoses Principal Problem: Intractable nausea and vomiting Active Problems: Intractable vomiting Reason for Hospitalization: Hospital Course: The patient is a 39-year-old female with history of anxiety/depression, GERD, SVT on verapamil and very infrequent marijuana use (twice a month) who presented for intractable nausea and vomiting after returning from a trip to [place]. She has had several negative ER evaluations but her symptoms persist. She presents for further evaluation. GI was consulted. EGD was normal. CT chest/abdomen, rightupper quadrant ultrasound, brain MRI (which showed tonsillitis so CMV/EBV were checked which were negative. She reports chronically enlarged tonsils with no acute pharyngeal symptoms), HIDA scan all negative for etiology. TSH, beta hCG and cortisol were negative for etiology. Her symptoms persisteddespite Compazine, Zofran, Tigan, erythromycin, benzodiazepine, olanzapine, and Benadryl. Her symptoms did recently start after starting a new job however she did not think stress was related to her presenting symptoms. Psychiatry was consulted who agreed. Although, her medications were adjusted. TCA was considered but not feasible given her current psychiatric medications. She has starvation ketoacidosis improved with bicarb containing fluids. Since she had eaten nearly 2 weeks, Dobbhoff was trialed but was expelled during an emesis episode. She was trialed on rectal Phenergan with some improvement. She will be started on full liquid diet. She tolerated diet well was eating regular diet isabel or to DC. Discussed with psychiatry medications reviewed adjusted see below. Patient to follow-up with her primary Psychiatry service and PCP as instructed Discharge Details Physical Exam at Discharge: Discharge Condition: fair Pulse: 99 Resp: 16 BP: 115/72 Temp: 36.7 ??C (98 ??F) Weight: 58.3 kg (128 lb 9.6 oz) Pertinent Exam Findings at Discharge: Discharge Disposition: Discharge to home or self care Code Status at Discharge: Full Code Active Issues & Recommended Plan for Follow-up: Follow-up with primary psychiatry and PCP in 1 week Allergies: Metoclopramide and Latex Discharge Medications: Your medication list START taking these medications Instructions Last Dose Given Next Dose Due cariprazine 1.5 mg capsule capsule Commonly known as: Vraylar 1.5 mg, oral, Daily, Medication called into primary pharmacy by dr emanuel mirtazapine 7.5 mg tablet Commonly known as: REMERON 7.5 mg, oral, Nightly ramelteon 8 mg tablet Commonly known as: ROZEREM 8 mg, oral, Nightly CHANGE how you take these medications Instructions Last Dose Given Next Dose Due DULoxetine DR 30 mg capsule Commonly known as: CYMBALTA What changed: medication strength how much to take when to take this 30 mg, oral, Daily with evening meal verapamiL 40 mg tablet Commonly known as: CALAN Start taking on: April 10, 2024 What changed: how much to take 40 mg, oral, Daily CONTINUE taking these medications Instructions Last Dose Given Next Dose Due clonazePAM 0.5 mg tablet Commonly known as: KlonoPIN 0.5 mg, oral, 3 times daily PRN famotidine 40 mg tablet Commonly known as: PEPCID 40 mg, oral, Nightly ondansetron ODT 4 mg disintegrating tablet Commonly known as: ZOFRAN-ODT 4 mg, oral, Every 8 hours PRN STOP taking these medications ARIPiprazole 2 mg tablet Commonly known as: ABITALIA HYDROcodone-acetaminophen 5-325 mg per tablet Commonly known as: NORCO pantoprazole DR 40 mg EC tablet Commonly known as: PROTONIX [place] 0.15 mg-30 mcg (84)/10 mcg (7) tablets,dose pack,3 month Generic drug: levonorgestrel & ethinyl estradiol traZODone 50 mg tablet Commonly known as: DESYREL Where to Get Your Medications These medications were sent to [facility] - [place], [place] - [address] [facility] [address] [facility] [id number] 30 mg capsule mirtazapine 7.5 mg tablet ramelteon 8 mg tablet verapamiL 40 mg tablet Information about where to get these medications is not yet available Ask your nurse or doctor about these medications cariprazine 1.5 mg capsule capsule Time Spent in Discharge Process: I have spent 55 minutes on discharge planning activities. Time spent was on Coordination of care, Follow up , and Counselling with patient/family Test Results Pending at Discharge (If Blank, None Found): Pending Labs Order Current Status CRP (acute phase) In process Calprotectin, fecal In process Cortisol In process Hemoglobin A1c In process Hepatic function panel In process Hepatic function panel In process Lipase In process Magnesium In process Magnesium In process Phosphorus In process Phosphorus In process Thyroid Function Niotaze In process Operative Procedures Performed (If Blank, None Found): Procedure(s): ESOPHAGOGASTRODUODENOSCOPY BIOPSY Outpatient Follow-Up: Future Appointments Date Time Provider Department Center 04/19/2024 9:45 AM Juan Sue MD PhD [facility] [place] [facility] 200 Specialty 11/12/2024 1:30 PM Aura Horne MD [facility] OB 360 Specialty Please schedule an appointment with the following provider(s): No follow-up provider specified. ANCILLARY INFORMATION Other Procedures & Diagnostic Tests: ECG 12 lead Result Date: 03/31/2024 Vent Rate: 62 bpm RR Interval: 955 msec AL Interval: 101 msec QRS Duration: 86 msec QT Interval: 430 msec QTC Interval: 436 msec P-R-T [place]: 47 - 24 - 56 degrees IMPRESSION: SINUS RHYTHM WITH SHORT AL INTERVAL POSSIBLE RIGHT VENTRICULAR CONDUCTION DELAY BORDERLINE ECG Electronically Signed By: [facility] 12 lead Result Date: 03/31/2024 Vent Rate: 57 bpm RR Interval: 1035 msec AL Interval: 101 msec QRS Duration: 82 msec QT Interval: 418 msec QTC Interval: 413 msec P-R-T [place]: 48 - 32 - 49 degrees IMPRESSION: SINUS BRADYCARDIA WITH SHORT AL INTERVAL BORDERLINE ECG Electronically Signed By: Yahir [facility] Card XR Chest PA Lateral 2 Views Result Date: 03/30/2024 EXAMINATION: XR CHEST PA LATERAL 2 VIEWS HISTORY: Chest pain COMPARISON: Chest radiograph 03/28/2024 FINDINGS: Heart size and pulmonary vasculature normal. No airspace disease. Bony and soft tissues normal. Normal chest x-ray. Electronically signed by: Ranjith Sharma M.D. Recent Labs: Recent Labs Lab Units 04/08/24 0357 WBC K/cumm 8.4 HEMOGLOBIN g/dL 13.2 HEMATOCRIT % 40.2 PLATELETS K/cumm 284 Recent Labs Lab Units 04/08/24 0357 WBC K/cumm 8.4 HEMOGLOBIN g/dL 13.2 HEMATOCRIT % 40.2 PLATELETS K/cumm 284 NEUTROS PCT % 41.1 LYMPHS PCT % 44.1 MONOS PCT % 12.4 EOS PCT % 1.7 Recent Labs Lab Units 04/09/24 0553 04/08/24 0357 04/07/24 0733 SODIUM mmol/L 135 137 138 POTASSIUM PLASMA mmol/L 4.0 3.1* 3.0* CHLORIDE mmol/L 99 100 92* CO2 mmol/L 25 27 32 BUN SERUM mg/dL 7 5* 7 CREATININE mg/dL 0.81 0.73 0.75 [id number] mL/min/1.73 m2 >90 >90 >90 GLUCOSE mg/dL 104 117 135 CALCIUM mg/dL 9.4 9.3 9.6 ALBUMIN g/dL 3.8 3.9 4.0 PHOSPHORUS PLASMA mg/dL 4.8* 4.6* 3.8 Recent Labs Lab Units 04/09/24 0553 04/08/24 0357 04/07/24 0733 SODIUM mmol/L 135 137 138 POTASSIUM PLASMA mmol/L 4.0 3.1* 3.0* CHLORIDE mmol/L 99 100 92* CO2 mmol/L 25 27 32 ANIONGAP mmol/L 11 10 14 GLUCOSE mg/dL 104 117 135 BUN SERUM mg/dL 7 5* 7 CREATININE mg/dL 0.81 0.73 0.75 CALCIUM mg/dL 9.4 9.3 9.6 ALBUMIN g/dL 3.8 3.9 4.0 ALK PHOS Units/L 84 82 93 ALT Units/L 35 26 28 AST Units/L 24 19 19 BILIRUBIN TOTAL mg/dL 0.4 0.5 0.6 Recent Labs Lab Units 04/09/24 0553 04/08/24 0357 04/07/24 0733 04/06/24 1053 04/05/24 0659 04/04/24 0713 ALK PHOS Units/L 84 82 93 < > 87 94 BILIRUBIN TOTAL mg/dL 0.4 0.5 0.6 < > 0.5 0.4 BILIRUBIN DIRECT mg/dL -- -- -- -- 0.2 <0.2 TOTAL PROTEIN g/dL 6.8 6.8 7.2 < > 7.4 7.7 ALT Units/L 35 26 28 < > 48* 58* AST Units/L 24 19 19 < > 33 57* < > = values in this interval not displayed. Recent Labs Lab Units 04/09/24 0553 04/08/24 0357 04/07/24 0733 MAGNESIUM mg/dL 2.3 2.2 2.0 Lab Results Component Value Date GLUCOSE 104 04/09/2024 GLUCOSE 117 04/08/2024 GLUCOSE 135 04/07/2024 Implant: Implants No active implants to display in this view. General Precautions (If Blank, None Found): Isolation Status: No active isolations Nutritional Status and in-house recommendations: Dietary Orders (From admission, onward) Start Ordered 04/08/24 1549 Adult Diet GI Diets; GI Soft Diet effective now Question Answer Comment ([facility]) Diet type GI Diets GI: GI Soft 04/08/24 1548 Anticoagulation Indication: INR: No results found for requested labs within last 30 days. Warfarin Administrations (last 168 hours) None Oxygen Status: O2 Therapy for the past 12 hrs: O2 Therapy 04/09/24 1105 None (Room air) 04/09/24 0926 None (Room air) 04/09/24 0417 None (Room air) Wound Care Instructions Active LDAs (If Blank, None Found): Patient Emergency Contact: Primary Emergency Contact: Azar Lu, Immunization Status at Discharge Immunization History Administered Date(s) Administered Influenza, Quadrivalent, Cell Culture-based MDCK, Preservative Free, Antibiotic Free, Ljabneujwaauq11/02/2020 Influenza, Quadrivalent, Split, Preservative Free, Intramuscular 04/26/2018 Influenza, Trivalent, Cell Culture-based MDCK, Preservative Free, Antibiotic Free, Intramuscular 05/17/2022 Influenza, Trivalent, IM (MDV) 06/11/2015 Influenza, Unspecified 05/14/2011, 05/22/2016, 05/21/2021, 05/15/2023 PPD TEST 03/24/2021 Pfizer SARS-CoV-2 Monovalent Vaccination (12+ Yrs) PURPLE 11/18/2020, 12/25/2020 Sars-CoV-2, Unspecified 06/21/2023 Tdap 05/22/2016, 08/02/2021 Shanti Freedman MD documented in this encounter Medications at Time of Discharge clonazePAM (KlonoPIN) 0.5 mg tablet Take 1 tablet (0.5 mg total) by mouth 3 (three) times a day as needed for anxiety verapamiL (CALAN) 40 mg tablet Take 1 tablet (40 mg total) by mouth daily 30 tablet 1 04/10/2024 5 cariprazine (Vraylar) 1.5 mg capsule capsule Take 1 capsule (1.5 mg total) by mouth daily Medication called into primary pharmacy by dr emanuel 04/09/2024 4 DULoxetine (CYMBALTA) 30 mg capsule Take 1 capsule (30 mg total) by mouth with evening meal 30 capsule 1 04/09/2024 4 famotidine (PEPCID) 40 mg tablet Take 1 tablet (40 mg total) by mouth nightly 90 tablet 1 03/11/2024 4 mirtazapine (REMERON) 7.5 mg tablet Take 1 tablet (7.5 mg total) by mouth nightly 30 tablet 04/09/2024 4 ondansetron ODT (ZOFRAN-ODT) 4 mg disintegrating tablet Take 1 tablet (4 mg total) by mouth every 8 (eight) hours as needed for nausea or vomiting 20 tablet 03/28/2024 4 ramelteon (ROZEREM) 8 mg tabletIndications:S leep-Onset Insomnia Take 1 tablet (8 mg total) by mouth nightly 30 tablet 04/09/2024 4 documented as of this encounter Ordered Prescriptions Prescription Sig Dispense Quantity Refills Last Filled Start Date End Date verapamiL (CALAN) 40 mg tablet Take 1 tablet (40 mg total) by mouth daily 30 tablet 1 04/10/2024 5 cariprazine (Vraylar) 1.5 mg capsule capsule Take 1 capsule (1.5 mg total) by mouth daily Medication called into primary pharmacy by dr emanuel 04/09/2024 4 ramelteon (ROZEREM) 8 mg tabletIndications: Sleep-Onset Insomnia Take 1 tablet (8 mg total) by mouth nightly 30 tablet 04/09/2024 4 mirtazapine (REMERON) 7.5 mg tablet Take 1 tablet (7.5 mg total) by mouth nightly 30 tablet 04/09/[address] (CYMBALTA) 30 mg capsule Take 1 capsule (30 mg total) by mouth with evening meal 30 capsule 1 04/09/2024 4 documented in this encounter Discharge Disposition Disposition Code Departure Means Destination Comment s Discharge to home or self care documented in this encounter Progress Notes * Gissel Buenrostro, RD - 04/09/2024 12:07 PM CDT NUTRITION ASSESSMENT Nutrition Status: Malnutrition work-up pending. REASON FOR ASSESSMENT: Follow Up Encounter Date: 04/09/24 12:07 PM Admission Date: 03/30/2024 LOS: 9 days HPI: Patient is a 39 y.o. female with history of anxiety, depression, Cavanaugh syndrome, GERD, presenting for intractable nausea and vomiting. Objective Past Medical History: Diagnosis Date Anxiety Depression GERD (gastroesophageal reflux disease) Vaginal vestibulitis Past Surgical History: Procedure Laterality Date SECTION Social History Tobacco Use Smoking status: Never Passive exposure: Never Smokeless tobacco: Never Substance and Sexual Activity Drug use: Yes Types: Marijuana Comment: uses 2x per month on average Sexual activity: Yes Partners: Male control/protection: OCP Alcohol Use: Not on file MEDICATION/LAB REVIEW: Scheduled Meds: DULoxetine DR, 30 mg, oral, Daily with evening meal enoxaparin, 40 mg, subcutaneous, Daily-2100 famotidine, 20 mg, intravenous, Q12H ELLEN mirtazapine, 7.5 mg, oral, Nightly ondansetron, 4 mg, intravenous, TID ramelteon, 8 mg, oral, Nightly sodium chloride 0.9%, 5-10 mL, intra-catheter, Q12H ELLEN sodium chloride 0.9%, 5-10 mL, intra-catheter, Q12H ELLEN verapamiL, 40 mg, oral, Daily Continuous Infusions: dextrose 5% and sodium chloride 0.45%, 75 mL/hr, Last Rate: 75 mL/hr (04/09/24 0022) PRN Meds: benzocaine-menthoL calcium carbonate clonazePAM LORazepam [Held by Provider] morphine prochlorperazine sodium chloride 0.9% sodium chloride 0.9% trimethobenzamide Recent Labs Lab Units 04/09/24 0553 04/08/24 0357 04/07/24 0733 SODIUM mmol/L 135 137 138 POTASSIUM PLASMA mmol/L 4.0 3.1* 3.0* CHLORIDE mmol/L 99 100 92* CO2 mmol/L 25 27 32 BUN SERUM mg/dL 7 5* 7 CREATININE mg/dL 0.81 0.73 0.75 VKB-SLO-BIGMPDT mL/min/1.73 m2 >90 >90 >90 CALCIUM mg/dL 9.4 9.3 9.6 ALBUMIN g/dL 3.8 3.9 4.0 PHOSPHORUS PLASMA mg/dL 4.8* 4.6* 3.8 MAGNESIUM mg/dL 2.3 2.2 2.0 Recent Labs Lab Units 04/09/24 0553 04/08/24 0357 04/07/24 0733 04/06/24 1053 04/05/24 0659 04/04/24 0713 04/03/24 1119 GLUCOSE mg/dL 104 117 135 136 104 98 97 ALT Date Value Ref Range Status 04/09/2024 35 7 - 45 Units/L Final AST Date Value Ref Range Status 04/09/2024 24 10 - 45 Units/L Final Alk phos Date Value Ref Range Status 04/09/2024 84 40 - 130 Units/L Final Lab Results Component Value Date HGBA1C 5.6 04/01/2024 NURSING ASSESSMENT: Last BM Date: 04/08/24 Bowel Sounds (All Quadrants): Active Emesis Assessment Emesis Color/Appearance: Yellow Madhu Scale Score: 22 Skin Integrity: Redness Vital Signs BP: 115/72 Temp: 36.7 ??C (98 ??F) Pulse: 99 Resp: 16 SpO2: 100 % No intake or output data in the 24 hours ending 04/09/24 1207 Adult Malnutrition Scoring Tool (MST) What diet do you follow at home?: regular Have You Recently Lost Weight Without Trying?: Yes (Comment) How Much Weight Have You Lost?: 2 - 13 lb Have you been eating poorly because of a decreased appetite?: Yes Malnutrition Screening Tool (MST) Score: 2 Within the past 12 months, you worried that your food would run out before you got the money to buymore.: Never true Within the past 12 months, the food you bought just didn't last and you didn't have money to get more.: Never true Anthropometrics Weight: 58.3 kg (128 lb 9.6 oz) Admission Weight : 58.3 kg Weight Change: -4.71 kg (-10.40 lbs) IBW/kg (Calculated) : 47.6 kg Height: 154.9 cm (5' 0.98 ) Weight in (lb) to have BMI = 25: 132 BMI (Calculated): 24.3 Wt Readings from Last 10 Encounters: 04/07/24 58.3 kg (128 lb 9.6 oz) 03/28/24 63 kg (139 lb) 03/28/24 63 kg (139 lb) 03/11/24 62.1 kg (137 lb) 11/27/23 64.1 kg (141 lb 6.4 oz) 11/08/23 64.4 kg (142 lb) 10/18/23 63.5 kg (140 lb) ESTIMATED NEEDS: Total Kcal/kg Estimated Needs : 1332.8 Kcal/k. Type of Weight Used for Estimated Kcals: [place] Total Protein Estimated Needs (gm): 57.12 Protein Needs Based on g/k.2 Type of Weight Used for Estimated Protein : [place] Dietary Orders (From admission, onward) Start Ordered 04/08/24 1549 Adult Diet GI Diets; GI Soft Diet effective now Question Answer Comment ([facility]) Diet type GI Diets GI: GI Soft 04/08/24 1548 Allergies: Reviewed, latex IMPRESSION: 04/09: Dobhoff was pulled out 04/07 and not replaced. Pt states she is doing very well today. She atebreakfast. She ate 3 meals yesterday and kept everything down. She hasn't thrown up for a day and ahalf. Planning for discharge today. Pt has no current nutrition questions or concerns. 04/06: Consult received to initiate TF with dobhoff feeds. Recommend [employer] 1.4 with a goal of 40 mls/hr. This will provide 1344 kcals and 59 g of protein. Pt still with nausea this morning. If TFis not tolerated, would recommend TPN. 04/05: Consulted yesterday for TPN which was not started. No plans to start it today either but willreevaluate daily. Pt threw up about 6 times yesterday then 2 more episodes over night. She had about 2 oz of cranberry juice but felt sick afterward. Complains of a lot of nausea still. GI started erythromycin yesterday and increased it today. Psych started Remeron. GI does not want to place a dobho ff. Will continue to monitor tolerance to diet and need for TPN. 04/01: Pt screened at nutrition risk, NPO status and MST of 2: wt loss and poor appetite. Pt reportsintense pain with PO intake and frequent n/v. She states she tried to drink cranberry juice, but wasn't able to keep it down. Pt reports last Monday was the last time she had any substantial amount of PO intake, she ate dinner with her parents. 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 Pt reports discussing her symptoms with coworkers who made her aware of the possibility of TPN. Informed pt that TPN is likely not indicated, but will monitor results of EGD. Discussed standard progression of diet advancement. Pt verbalizes understanding and comfortability. Pt reports UBW of 145 lbs. She states she was weighed at 134 lbs overnight, no documentation of said weight. Current weight charted as 139 lbs. Pt reports 139 lbs is a stated weight. Ordered weight check to determine if weight loss is present. NFPE completed. No physical findings of muscle wasting or fat loss noted. Malnutrition workup pending new weight. Pt currently NPO for EGD. Monitor findings, diet advancement, and new weight. ASPEN MALNUTRITION ASSESSMENT: Date of completion: 04/01/2024 NUTRITION FOCUSED PHYSICAL EXAM: Completed, no signs of wasting noted. Subcutaneous Fat Loss Orbital Region - Surrounding the Eye: Slightly bulged fat pads Cheek Region - Buccal Fat: Full, round filled-out cheeks Upper Arm Region - Triceps/Biceps: Ample fat tissue obvious between folds of skin Muscle Loss Confucianist Region - Temporalis Muscle: Can see/feel well-defined muscle Clavicle Bone Region - Pectoralis Major, Deltoid, Trapezius Muscles: Not visible in male, visible but not prominent in female Clavicle and Acromion Bone Region - Deltoid Muscle: Rounded, curves at arm/shoulder/neck Dorsal Hand - Interosseous Muscle: Muscle bulges, could be flat in some well nourished people Anterior Thigh and Patellar Region - Quadricep Muscle: Well-rounded, well-developed Posterior Calf Region - Gastrocnemius Muscle: Well-developed bulb of muscle NUTRITION DIAGNOSIS: Nutrition Diagnosis 1: Inadequate energy intake Related to: NPO status Evidenced by: Physical finding INTERVENTION(S): Summary: Initial assessment, NFPE, Orders weight check GOAL(S): Advance to oral intake as medically able, Patient/caregiver able to teach back understanding of role of diet in disease process prior to discharge MONITORING/EVALUATION: Diet advancement, I/O, Labs, Plan of care, Weight changes, Discharge plans Latia Thompson RD, LD * Zacarias Nj PA - 04/09/2024 11:21 AM CDT Gastroenterology Progress GI Problems: Vomiting Interval History: She is much better today. She feels great, is eating and smiling. She had a BM yesterday. No further nausea or vomiting. She is looking forward to going home today. ASSESSMENT/PLAN: 1. Intractable nausea and vomiting - started about 03/27. No abdominal pain. Occasional NSAID use, reportedly rare cannabis use. Extensive workup largely unrevealing, but symptoms have resolved. 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 Plan: Given notable improvement she is stable for discharge from a GI standpoint. If recurrent N/V problems can follow up with GI outpatient. Recommend outpatient follow up as related to her antidepressant regimen as this has been altered during her stay. At this time the GI service will sign off. 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 Vitals: 04/08/24 1145 04/08/24 2016 04/09/24 0417 04/09/24 1105 BP: 133/78 126/69 103/77 115/72 BP Location: Right arm Right arm Right arm Right arm Patient Position: Lying Lying Sitting Pulse: 100 100 95 99 Resp: 20 16 16 16 Temp: 36.1 ??C (97 ??F) 36.9 ??C (98.5 ??F) 36.6 ??C (97.8 ??F) 36.7 ??C (98 ??F) TempSrc: Oral Oral Oral Oral SpO2: 100% 99% 100% 100% Weight: Height: Physical Exam Vitals reviewed. Constitutional: General: She is not in acute distress. HENT: Head: Normocephalic. Eyes: Extraocular Movements: Extraocular movements intact. Cardiovascular: Rate and Rhythm: Normal rate. Pulmonary: Effort: Pulmonary effort is normal. Abdominal: General: Abdomen is flat. Bowel sounds are normal. There is no distension. Palpations: Abdomen is soft. Tenderness: There is no abdominal tenderness. There is no guarding or rebound. Skin: General: Skin is warm and dry. Neurological: Mental Status: She is alert. Psychiatric: Mood and Affect: Mood normal. Lab/Radiology/Diagnostic Review: Recent Labs Lab Units 04/08/24 0357 WBC K/cumm 8.4 HEMOGLOBIN g/dL 13.2 HEMATOCRIT % 40.2 PLATELETS K/cumm 284 Recent Labs Lab Units 04/09/24 0553 04/08/24 0357 04/07/24 0733 SODIUM mmol/L 135 137 138 POTASSIUM PLASMA mmol/L 4.0 3.1* 3.0* BUN SERUM mg/dL 7 5* 7 CREATININE mg/dL 0.81 0.73 0.75 CALCIUM mg/dL 9.4 9.3 9.6 ALBUMIN g/dL 3.8 3.9 4.0 ALK PHOS Units/L 84 82 93 ALT Units/L 35 26 28 AST Units/L 24 19 19 BILIRUBIN TOTAL mg/dL 0.4 0.5 0.6 CARLOS Charles Cosigned by Anam Jenkins MD at 04/09/2024 12:33 PM CDT * Kevon Emanuel MD - 04/09/2024 8:41 AM CDT Images from the original note were not included. Follow up Psychiatry Consult Attending Physician: Shanti Freedman MD Subjective Interim History: Ángela Ibrahim is a 39 y.o. female, who was last seen by me earlier today. Patient said she is feeling well. She does not feel sad or depressed. She does not feel anxious. She said she has had no more nausea present and no more vomiting present. She said she is looking forward for discharge later today. She is agreeable to switch back to Vraylar from the Abilify medications. Vitals: Blood pressure 103/77, pulse 95, temperature 36.6 ??C (97.8 ??F), temperature source Oral, resp. rate 16, height 154.9 cm (5' 0.98 ), weight 58.3 kg (128 lb 9.6 oz), SpO2 100%. Allergies: Metoclopramide and Latex Current Psychotropics: Medications Prior to Admission Medication Sig Dispense Refill Last Dose ARIPiprazole (ABILIFY) 2 mg tablet Take 2 tablets (4 mg total) by mouth daily 03/30/[address] (CYMBALTA) 60 mg capsule Take 1 capsule (60 mg total) by mouth daily 03/30/2024 clonazePAM (KlonoPIN) 0.5 mg tablet Take 1 tablet (0.5 mg total) by mouth 3 (three) times a day as needed for anxiety famotidine (PEPCID) 40 mg tablet Take 1 tablet (40 mg total) by mouth nightly 90 tablet 1 HYDROcodone-acetaminophen (NORCO) 5-325 mg per tablet Take 1 tablet by mouth every 6 (six) hours asneeded for pain 10 tablet 0 ondansetron ODT (ZOFRAN-ODT) 4 mg disintegrating tablet Take 1 tablet (4 mg total) by mouth every 8(eight) hours as needed for nausea or vomiting [address] (PROTONIX) 40 mg EC tablet Take 1 tablet (40 mg total) by mouth daily 90 tablet 1 Simpesse 0.15 mg-30 mcg (84)/10 mcg (7) tablets,dose pack,3 month Take 1 tablet by mouth daily traZODone (DESYREL) 50 mg tablet Take 2 tablets (100 mg total) by mouth nightly as needed for sleep verapamiL (CALAN) 40 mg tablet Take 2 tablets (80 mg total) by mouth daily Current Medications: Current Facility-Administered Medications: benzocaine-menthoL (CHLORASEPTIC) lozenge 1 lozenge, 1 lozenge, mouth/throat, Q2H PRN, Nicholas Sabaiaz, DO calcium carbonate (TUMS) chewable tablet 500 mg, 200 mg of elemental calcium, oral, QID PRN, Anya Lewis MD, 500 mg at 04/08/242053 clonazePAM (KlonoPIN) tablet 0.5 mg, 0.5 mg, oral, TID PRN, Bruno Cobb MD, 0.5 mg at 04/07/242000 dextrose 5% and sodium chloride 0.45% infusion (premix), 75 mL/hr, intravenous, Continuous, Nicholas Saba, DO, Last Rate: 75 mL/hr at 04/09/2421, 75 mL/hr at 04/09/[address] (CYMBALTA) extended release capsule 30 mg, 30 mg, oral, Daily with evening meal, Kevon Emanuel MD, 30 mg at 04/08/242052 enoxaparin (LOVENOX) syringe 40 mg, 40 mg, subcutaneous, Daily-2100, Nicholas Saba, DO, 40 mg at 04/06/242121 famotidine (PEPCID) injection 20 mg, 20 mg, intravenous, Q12H ELLEN, Bruno Cobb MD, 20 mg at 04/08/242054 LORazepam (ATIVAN) injection 0.5 mg, 0.5 mg, intravenous, TID PRN, Bruno Cobb MD, 0.5 mg at 04/07/242137 mirtazapine (REMERON) tablet 7.5 mg, 7.5 mg, oral, Nightly, Kevon Emanuel MD, 7.5 mg at 04/08/242053 [Held by Provider] morphine injection 2 mg, 2 mg, intravenous, Q3H PRN, Bruno Cobb MD, 2 mg at 04/03/24 0956 ondansetron (ZOFRAN) injection 4 mg, 4 mg, intravenous, TID, Bruno Cobb MD, 4 mg at 04/08/24 0822 prochlorperazine (COMPAZINE) injection 5 mg, 5 mg, intravenous, Q6H PRN, Anya Lewis MD, 5 mgat 04/07/242223 ramelteon (ROZEREM) tablet 8 mg, 8 mg, oral, Nightly, Ahmad, Bazgha Smooth, DO, 8 mg at 04/08/242053 sodium chloride 0.9% flush 5-10 mL, 5-10 mL, intra-catheter, Q12H ELLEN, Ahmad, Bazgha Smooth, DO, 10mL at 04/08/242055 sodium chloride 0.9% flush 5-10 mL, 5-10 mL, intra-catheter, Q12H ELLEN, Ahmad, Bazgha Smooth, DO, 10mL at 04/08/242055 sodium chloride 0.9% flush 5-20 mL, 5-20 mL, intra-catheter, PRN, Ahmad, Bazgha Smooth, DO sodium chloride 0.9% flush 5-20 mL, 5-20 mL, intra-catheter, PRN, Ahmad, Bazgha Smooth, DO, 10 mL at 04/08/24 0355 trimethobenzamide (TIGAN) injection 200 mg, 200 mg, intramuscular, Q6H PRN, Jeanie Ramos PA, 200 mg at 04/07/24 1224 verapamiL (CALAN) tablet 40 mg, 40 mg, oral, Daily, Ahmad, Bazgha Smooth, DO, 40 mg at 04/07/24 0909 Relevant Labs: Chem/LFT Lab History Latest Ref Rng & Units 04/06/2024 10:53 04/07/2024 07:33 04/08/2024 03:57 04/09/2024 05:53 Labs-Chem/LFT Sodium 135 - 145 mmol/L 136 138 137 135 Creatinine 0.60 - 1.10 mg/dL 0.65 0.75 0.73 0.81 Bilirubin, total 0.1 - 1.2 mg/dL 0.5 0.6 0.5 0.4 AST 10 - 45 Units/L 20 19 19 24 ALT 7 - 45 Units/L 38 28 26 35 Alk phos 40 - 130 Units/L 93 93 82 84 CrCl- Actual Body Weight (Cockcroft-Gault) 114.5 91.8 94.3 85 Hematology Lab History Latest Ref Rng & Units 03/30/2024 15:40 03/31/2024 06:56 04/01/2024 07:09 04/08/2024 03:57 Labs - Hematology WBC 3.8 - 9.9 K/cumm 12.7 9.7 6.3 8.4 Total Hb, POC 11.9 - 15.5 g/dL 14.7 12.2 12.5 13.2 Hct 35.6 - 45.5 % 43.4 35.6 38.2 40.2 Plt 150 - 400 K/cumm 462 339 334 284 Neutrophil abs 1.5 - 6.5 K/cumm 9.8 3.8 2.3 3.4 Lymphocytes, abs 0.8 - 3.3 K/cumm 2.1 4.8 3.1 3.7 Objective Mental Status Examination: Appearance & Behavior: Appearance: Appropriately Dressed and Adequate Hygiene Habitus: Well built Attitude: Cooperative, Pleasant Psychomotor Activity: Normal Cognition: Orientation: Oriented to time and place and person Recent Memory: Intact, Adequate Remote Memory: Intact, Adequate Concentration: Intact, Adequate Fund of Knowledge: Adequate Speech: Normal Rate, Normal Amount, Coherent Mood & Affect: Mood: I feel well Affect: Stable, Appeared Appropriate for the Described Mood Safety/Dangerousness: Denied Suicidal / Homicidal Thoughts Thought Content: Thought Process: Goal Directed, Logical, Coherent Hallucinations: Denied any Hallucinations Delusions: No Delusional Believes Shared, Denied paranoia Insight & Judgement: Insight: Intact Judgement: Intact Diagnosis: Bipolar 1 disorder Generalized anxiety disorder Cannabis use disorder Assessment & Suggestions: Patient will be on Vraylar medications at 1.5 mg orally once daily for treatment of her Bipolar 1 Disorder. Will call in medications at her outpatient pharmacy in [place]. No more nausea or vomiting present since Abilify stopped. Continue the patient on Mirtazapine 7.5 mg orally once daily at Night. Continue with Duloxetine 30 mg orally once daily with evening meal. Continue with PRN Clonazepam medications. Patient can follow up with her outpatient psychiatrist on discharge. Discussed with Dr Shanti Freedman via [employer] chat * Kevon Emanuel MD - 04/08/2024 12:45 PM CDT Images from the original note were not included. Follow up Psychiatry Consult Attending Physician: Nicholas Saba DO Subjective Interim History: Ángela Ibrahim is a 39 y.o. female, who was last seen by me earlier today. Patient said she is feeling well so far today. She said she last vomited last night but none this morning and none so far today. Said she feels like eating some food now and will order something. Kayleen said she does not feel depressed and she likes her new job and she had a good recent vacationwith family. Vitals: Blood pressure 133/78, pulse 100, temperature 36.1 ??C (97 ??F), temperature source Oral, resp. rate 20, height 154.9 cm (5' 0.98 ), weight 58.3 kg (128 lb 9.6 oz), SpO2 100%. Allergies: Metoclopramide and Latex Current Psychotropics: Medications Prior to Admission Medication Sig Dispense Refill Last Dose ARIPiprazole (ABILIFY) 2 mg tablet Take 2 tablets (4 mg total) by mouth daily 03/30/[address] (CYMBALTA) 60 mg capsule Take 1 capsule (60 mg total) by mouth daily 03/30/2024 clonazePAM (KlonoPIN) 0.5 mg tablet Take 1 tablet (0.5 mg total) by mouth 3 (three) times a day as needed for anxiety famotidine (PEPCID) 40 mg tablet Take 1 tablet (40 mg total) by mouth nightly 90 tablet 1 HYDROcodone-acetaminophen (NORCO) 5-325 mg per tablet Take 1 tablet by mouth every 6 (six) hours asneeded for pain 10 tablet 0 ondansetron ODT (ZOFRAN-ODT) 4 mg disintegrating tablet Take 1 tablet (4 mg total) by mouth every 8(eight) hours as needed for nausea or vomiting [address] (PROTONIX) 40 mg EC tablet Take 1 tablet (40 mg total) by mouth daily 90 tablet 1 Simpesse 0.15 mg-30 mcg (84)/10 mcg (7) tablets,dose pack,3 month Take 1 tablet by mouth daily traZODone (DESYREL) 50 mg tablet Take 2 tablets (100 mg total) by mouth nightly as needed for sleep verapamiL (CALAN) 40 mg tablet Take 2 tablets (80 mg total) by mouth daily Current Medications: Current Facility-Administered Medications: acetaminophen (TYLENOL) tablet 1,000 mg, 1,000 mg, oral, TID, Bruno Cobb MD, 1,000mg at 04/07/242000 benzocaine-menthoL (CHLORASEPTIC) lozenge 1 lozenge, 1 lozenge, mouth/throat, Q2H PRN, Nicholas Saba DO clonazePAM (KlonoPIN) tablet 0.5 mg, 0.5 mg, oral, TID PRN, Bruno Cobb MD, 0.5 mg at 04/07/242000 dextrose 5% and sodium chloride 0.45% infusion (premix), 75 mL/hr, intravenous, Continuous, Nicholas Saba DO, Last Rate: 75 mL/hr at 04/08/24 0355, 75 mL/hr at 04/08/[address] (CYMBALTA) extended release capsule 30 mg, 30 mg, oral, Daily with evening meal, Kevon Emanuel MD, 30 mg at 04/07/24 183 enoxaparin (LOVENOX) syringe 40 mg, 40 mg, subcutaneous, Daily-2100, Nicholas Saba DO, 40 mg at 04/06/24 2122 famotidine (PEPCID) injection 20 mg, 20 mg, intravenous, Q12H ELLEN, Bruno Cobb MD, 20 mg at 04/08/24 1231 lidocaine (PF) (XYLOCAINE) 10 mg/mL (1 %) preservative free injection 10-20 mg, 1-2 mL, subcutaneous, Once, Nicholas Saba DO LORazepam (ATIVAN) injection 0.5 mg, 0.5 mg, intravenous, TID PRN, Bruno Cobb MD, 0.5 mg at 04/07/242137 mirtazapine (REMERON) tablet 7.5 mg, 7.5 mg, oral, Nightly, Kevon Emanuel MD, 7.5 mg at 04/07/242000 [Held by Provider] morphine injection 2 mg, 2 mg, intravenous, Q3H PRN, Bruno Cobb MD, 2 mg at 04/03/24 0956 ondansetron (ZOFRAN) injection 4 mg, 4 mg, intravenous, TID, Bruno Cobb MD, 4 mg at 04/08/24 08 potassium chloride 40 mEq/100 mL in sterile water (premix) 40 mEq, 40 mEq, intravenous, Once, Ahmad, Bazalejandroa Smooth, DO prochlorperazine (COMPAZINE) injection 5 mg, 5 mg, intravenous, Q6H PRN, Anya Lewis MD, 5 mgat 04/07/242223 ramelteon (ROZEREM) tablet 8 mg, 8 mg, oral, Nightly, Ahmad, Bazgha Smooth, DO, 8 mg at 04/07/242000 sodium chloride 0.9% flush 5-10 mL, 5-10 mL, intra-catheter, Q12H ELLEN, Ahmad, Bazgha Smooth, DO, 10mL at 04/08/24821 sodium chloride 0.9% flush 5-10 mL, 5-10 mL, intra-catheter, Q12H ELLEN, Ahmad, Bazgha Smooth, DO, 10mL at 04/08/2422 sodium chloride 0.9% flush 5-20 mL, 5-20 mL, intra-catheter, PRN, Ahmad, Bazgha Smooth, DO sodium chloride 0.9% flush 5-20 mL, 5-20 mL, intra-catheter, PRN, Ahmad, Bazgha Smooth, DO, 10 mL at 04/08/24 0355 trimethobenzamide (TIGAN) injection 200 mg, 200 mg, intramuscular, Q6H PRN, Jeanie Ramos PA, 200 mg at 04/07/24 1224 verapamiL (CALAN) tablet 40 mg, 40 mg, oral, Daily, Ahmad, Bazgha Smooth, DO, 40 mg at 04/07/24 0909 Relevant Labs: Chem/LFT Lab History Latest Ref Rng & Units 04/05/2024 06:59 04/06/2024 10:53 04/07/2024 07:33 04/08/2024 03:57 Labs-Chem/LFT Sodium 135 - 145 mmol/L 136 136 138 137 Creatinine 0.60 - 1.10 mg/dL 0.73 0.65 0.75 0.73 Bilirubin, total 0.1 - 1.2 mg/dL 0.5 0.5 0.6 0.5 AST 10 - 45 Units/L 33 20 19 19 ALT 7 - 45 Units/L 48 38 28 26 Alk phos 40 - 130 Units/L 87 93 93 82 CrCl- Actual Body Weight (Cockcroft-Gault) 102 114.5 91.8 94.3 Hematology Lab History Latest Ref Rng & Units 03/30/2024 15:40 03/31/2024 06:56 04/01/2024 07:09 04/08/2024 03:57 Labs - Hematology WBC 3.8 - 9.9 K/cumm 12.7 9.7 6.3 8.4 Total Hb, POC 11.9 - 15.5 g/dL 14.7 12.2 12.5 13.2 Hct 35.6 - 45.5 % 43.4 35.6 38.2 40.2 Plt 150 - 400 K/cumm 462 339 334 284 Neutrophil abs 1.5 - 6.5 K/cumm 9.8 3.8 2.3 3.4 Lymphocytes, abs 0.8 - 3.3 K/cumm 2.1 4.8 3.1 3.7 Objective Mental Status Examination: Appearance & Behavior: Appearance: Appropriately Dressed and Adequate Hygiene Habitus: Well built Attitude: Cooperative, Pleasant Psychomotor Activity: Normal Cognition: Orientation: Oriented to time and place and person Recent Memory: Intact, Adequate Remote Memory: Intact, Adequate Concentration: Intact, Adequate Fund of Knowledge: Adequate Speech: Normal Rate, Normal Amount, Coherent Mood & Affect: Mood: I feel well at present Affect: Stable, Appeared Appropriate for the Described Mood Safety/Dangerousness: Denied Suicidal / Homicidal Thoughts Thought Content: Thought Process: Goal Directed, Logical, Coherent Hallucinations: Denied any Hallucinations Delusions: No Delusional Believes Shared, Denied paranoia Insight & Judgement: Insight: Intact Judgement: Intact Diagnosis: Bipolar 1 disorder Generalized anxiety disorder Cannabis use disorder Assessment & Suggestions: Patient doing well so far today being off the Aripiprazole medications. Patient last vomited last night. Will consider restarting Vraylar medications before discharge. Continue the patient on Mirtazapine 7.5 mg orally once daily at Night. Continue with Duloxetine 30 mg orally once daily with evening meal. Continue with PRN Clonazepam medications. Discussed with [employer] Chat with GI team and Dr Saba. * Jeanie Ramos PA - 04/08/2024 9:13 AM CDT Pt JEREMY for HIDA scan this morning. Events of weekend reviewed. Refractory N/V. Still with limited PO. Unsuccessful dobhoff trial, dislodged with vomiting. Etiology of N/V yet to be determined. 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 Medications adjusted. Consider low dose TCA if psychiatry agreeable. Will follow. HIDA negative. She is feeling better today. Will trial PO. Medications adjusted yesterday, now off Aripiprazole. Last vomited overnight. Reviewed with psychiatry, prefers to hold on further medication adjustments at this time Discussed with Dr. Emanuel and Dr. Saba via [employer] Jeanie Ramos PA-C Cosigned by Anam Jenkins MD at 04/09/2024 11:06 AM CDT * Nicholas Saba DO - 04/08/2024 9:09 AM CDT Daily Progress SUBJECTIVE Chief complaint of nausea and vomiting The patient is a 39-year-old female with history of anxiety/depression, GERD, SVT on verapamil and very infrequent marijuana use (twice a month) who presented for intractable nausea and vomiting after returning from a trip to [place]. She has had several negative ER evaluations but her symptoms persist. She presents for further evaluation. GI was consulted. EGD was normal. CT chest/abdomen, rightupper quadrant ultrasound, brain MRI (which showed tonsillitis so CMV/EBV were checked which were negative. She reports chronically enlarged tonsils with no acute pharyngeal symptoms), HIDA scan all negative for etiology. TSH, beta hCG and cortisol were negative for etiology. Her symptoms persisteddespite Compazine, Zofran, Tigan, erythromycin, benzodiazepine, olanzapine, and Benadryl. Her symptoms did recently start after starting a new job however she did not think stress was related to her presenting symptoms. Psychiatry was consulted who agreed. Although, her medications were adjusted. TCA was considered but not feasible given her current psychiatric medications. She has starvation ketoacidosis improved with bicarb containing fluids. Since she had eaten nearly 2 weeks, Dobbhoff was trialed but was expelled during an emesis episode. She was trialed on rectal Phenergan with some improvement. She will be started on full liquid diet. INTERVAL HISTORY: HIDA scan negative. Last emesis was in p.m.. She says she feels well today. She is amenable to trying full liquids. Denies chest pain, sob, vomiting. OBJECTIVE Vitals: 24hr Min/Max: Temp Min: 36.5 ??C (97.7 ??F) Max: 36.8 ??C (98.3 ??F) Pulse Min: 89 Max: 100 BP Min: 122/80 Max: 150/95 Resp Min: 16 Max: 18 SpO2 Min: 100 % Max: 100 % Most Recent : Vitals: 04/08/24 0400 BP: 122/80 Pulse: 100 Resp: 18 Temp: 36.5 ??C (97.7 ??F) SpO2: 100% Physical exam: General Appearance: Alert, cooperative, no distress Head: Normocephalic, without obvious abnormality, atraumatic Eyes: PERRL, conjunctiva clear, EOM's intact, no scleral icterus Nose: Nares normal, septum midline, mucosa normal, no drainage Throat: Lips, mucosa, and tongue normal; mucous membranes moist Neck: Symmetrical, trachea midline, Lungs: Clear to auscultation bilaterally, respirations unlabored Cardiovascular: Regular rate and rhythm, no murmur Abdomen: Soft, non-tender, no masses, no organomegaly, non-distended Extremities: Extremities normal, atraumatic, no cyanosis or edema, no clubbing Skin: no rashes, lesions or bruising, tattoos Neurologic: CNII-XII intact. Psychosocial: Normal affect and mood Lab/Radiology/Diagnostic Review: Laboratory review: reviewed the laboratory results Imaging review: I have reviewed the results ASSESSMENT/PLAN: Nausea and vomiting, unclear etiology. GI following, d/w team. Appreciate Psychiatry. Difficult IV access, PICC placed. Removed prior to discharge Hypokalemia, ongoing. Replace Anion gap metabolic acidosis, suspect starvation ketosis, resolved. Transaminitis, resolved. 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 Follow up Psychiatry Consult Attending Physician: Nicholas Saba DO Subjective Interim History: Ángela Ibrahim is a 39 y.o. female, who was last seen by me earlier today. Patient said she is agreeable to stopping Aripiprazole medications and see if that relieves the nausea and vomiting. She said she has tried medications of Lamictal and Quetiapine before to not much benefit. She said she was switched off Vraylar due to insurance change in the past but never could take it for a long time. She said she is not feeling too sad or anxious at present. Vitals: Blood pressure 139/95, pulse 92, temperature 36.8 ??C (98.2 ??F), temperature source Oral, resp. rate 16, height 154.9 cm (5' 0.98 ), weight 58.3 kg (128 lb 9.6 oz), SpO2 100%. Allergies: Metoclopramide and Latex Current Psychotropics: Medications Prior to Admission Medication Sig Dispense Refill Last Dose ARIPiprazole (ABILIFY) 2 mg tablet Take 2 tablets (4 mg total) by mouth daily 03/30/[address] (CYMBALTA) 60 mg capsule Take 1 capsule (60 mg total) by mouth daily 03/30/2024 clonazePAM (KlonoPIN) 0.5 mg tablet Take 1 tablet (0.5 mg total) by mouth 3 (three) times a day as needed for anxiety famotidine (PEPCID) 40 mg tablet Take 1 tablet (40 mg total) by mouth nightly 90 tablet 1 HYDROcodone-acetaminophen (NORCO) 5-325 mg per tablet Take 1 tablet by mouth every 6 (six) hours asneeded for pain 10 tablet 0 ondansetron ODT (ZOFRAN-ODT) 4 mg disintegrating tablet Take 1 tablet (4 mg total) by mouth every 8(eight) hours as needed for nausea or vomiting [address] (PROTONIX) 40 mg EC tablet Take 1 tablet (40 mg total) by mouth daily 90 tablet 1 Simpesse 0.15 mg-30 mcg (84)/10 mcg (7) tablets,dose pack,3 month Take 1 tablet by mouth daily traZODone (DESYREL) 50 mg tablet Take 2 tablets (100 mg total) by mouth nightly as needed for sleep verapamiL (CALAN) 40 mg tablet Take 2 tablets (80 mg total) by mouth daily Current Medications: Current Facility-Administered Medications: acetaminophen (TYLENOL) tablet 1,000 mg, 1,000 mg, oral, TID, Bruno Cobb MD, 1,000mg at 04/07/24 0909 benzocaine-menthoL (CHLORASEPTIC) lozenge 1 lozenge, 1 lozenge, mouth/throat, Q2H PRN, Nicholas Saba Smooth, DO clonazePAM (KlonoPIN) tablet 0.5 mg, 0.5 mg, oral, TID PRN, Bruno Cobb MD, 0.5 mg at 04/07/24 0136 dextrose 5% and sodium chloride 0.45% infusion (premix), 75 mL/hr, intravenous, Continuous, Nicholas Saba, DO, Last Rate: 75 mL/hr at 04/07/24 0911, 75 mL/hr at 04/07/[address] (CYMBALTA) extended release capsule 30 mg, 30 mg, oral, Daily with evening meal, Kevon Emanuel MD, 30 mg at 04/06/24 180 enoxaparin (LOVENOX) syringe 40 mg, 40 mg, subcutaneous, Daily-2100, Nicholas Saba, DO, 40 mg at 04/06/242121 famotidine (PEPCID) injection 20 mg, 20 mg, intravenous, Q12H ELLEN, Bruno Cobb MD, 20 mg at 04/07/24 0911 lidocaine (PF) (XYLOCAINE) 10 mg/mL (1 %) preservative free injection 10-20 mg, 1-2 mL, subcutaneous, Once, Nicholas Saba, DO LORazepam (ATIVAN) injection 0.5 mg, 0.5 mg, intravenous, TID PRN, Bruno Cobb MD, 0.5 mg at 04/07/24 1506 mirtazapine (REMERON) tablet 7.5 mg, 7.5 mg, oral, Nightly, Kevon Emanuel MD, 7.5 mg at 04/06/24 2119 [Held by Provider] morphine injection 2 mg, 2 mg, intravenous, Q3H PRN, Bruno Cobb MD, 2 mg at 04/03/24 0956 ondansetron (ZOFRAN) injection 4 mg, 4 mg, intravenous, TID, Bruno Cobb MD, 4 mg at 04/07/24 1459 potassium chloride 40 mEq in sodium chloride 0.9% 500 mL IVPB, 40 mEq, intravenous, Once, Nicholas Saba, DO, Last Rate: 130 mL/hr at 04/07/24 1509, 40 mEq at 04/07/24 1509 promethazine (PHENERGAN) suppository 25 mg, 25 mg, rectal, Q8H PRN, Ahmad, Bazgha Smooth, DO ramelteon (ROZEREM) tablet 8 mg, 8 mg, oral, Nightly, Ahmad, Bazgha Smooth, DO, 8 mg at 04/06/242118 sodium chloride 0.9% flush 5-10 mL, 5-10 mL, intra-catheter, Q12H ELLEN, Ahmad, Bazgha Smooth, DO, 10mL at 04/06/242121 sodium chloride 0.9% flush 5-10 mL, 5-10 mL, intra-catheter, Q12H ELLEN, Ahmad, Bazgha Smooth, DO sodium chloride 0.9% flush 5-20 mL, 5-20 mL, intra-catheter, PRN, Ahmad, Bazgha Smooth, DO sodium chloride 0.9% flush 5-20 mL, 5-20 mL, intra-catheter, PRN, Ahmad, Bazgha Smooth, DO trimethobenzamide (TIGAN) injection 200 mg, 200 mg, intramuscular, Q6H PRN, Jeanie Ramos PA, 200 mg at 04/07/24 1224 verapamiL (CALAN) tablet 40 mg, 40 mg, oral, Daily, Ahmad, Bazgha Smooth, DO, 40 mg at 04/07/24 0909 Relevant Labs: Chem/LFT Lab History Latest Ref Rng & Units 2024 07:13 04/05/2024 06:59 04/06/2024 10:53 04/07/2024 07:33 Labs-Chem/LFT Sodium 135 - 145 mmol/L 135 136 136 138 Creatinine 0.60 - 1.10 mg/dL 0.74 0.73 0.65 0.75 Bilirubin, total 0.1 - 1.2 mg/dL 0.4 0.5 0.5 0.6 AST 10 - 45 Units/L 57 33 20 19 ALT 7 - 45 Units/L 58 48 38 28 Alk phos 40 - 130 Units/L 94 87 93 93 CrCl- Actual Body Weight (Cockcroft-Gault) 100.6 102 114.5 91.8 Hematology Lab History Latest Ref Rng & Units 03/28/2024 03/30/2024 15:40 03/31/2024 06:56 04/01/2024 07:09 Labs - Hematology WBC 3.8 - 9.9 K/cumm 14.9 12.7 9.7 6.3 Total Hb, POC 11.9 - 15.5 g/dL 13.6 14.7 12.2 12.5 Hct 35.6 - 45.5 % 41.6 43.4 35.6 38.2 Plt 150 - 400 K/cumm 422 462 339 334 Neutrophil abs 1.5 - 6.5 K/cumm 11.1 9.8 3.8 2.3 Lymphocytes, abs 0.8 - 3.3 K/cumm 2.6 2.1 4.8 3.1 Details More abnormal values are hidden. Newest values shown. Go to activity for more data. More values are hidden. Newest values shown. Go to activity for more data. Objective Mental Status Examination: Appearance & Behavior: Appearance: Appropriately Dressed and Adequate Hygiene Habitus: Well built Attitude: Cooperative, Pleasant Psychomotor Activity: Normal Cognition: Orientation: Oriented to time and place and person Recent Memory: Intact, Adequate Remote Memory: Intact, Adequate Concentration: Intact, Adequate Fund of Knowledge: Adequate Speech: Normal Rate, Normal Amount, Coherent Mood & Affect: Mood: I feel OK Affect: Stable, Appeared Appropriate for the Described Mood Safety/Dangerousness: Denied Suicidal / Homicidal Thoughts Thought Content: Thought Process: Goal Directed, Logical, Coherent Hallucinations: Denied any Hallucinations Delusions: No Delusional Believes Shared, Denied paranoia Insight & Judgement: Insight: Intact Judgement: Intact Diagnosis: Bipolar 1 disorder Generalized anxiety disorder Cannabis use disorder Assessment & Suggestions: Discontinue the Aripiprazole medications. Will see if any relief obtained for the patient with her nausea and vomiting. Will consider restarting Vraylar medications. Continue the patient on Mirtazapine 7.5 mg orally once daily at Night. Continue with Duloxetine 30 mg orally once daily with evening meal. Continue with PRN Clonazepam medications. * Anam Jenkins MD - 04/07/2024 1:28 PM CDT Gastroenterology Progress Note SUBJECTIVE . Interval History: Patient continues to complain of nausea and vomiting. She is able to swallow liquids and at times is keeping it down. However then she gets a feeling of nausea and vomits up the clear fluids. 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 This has been going on since then. He had an EGD done which was all normal. Multiple other imaging studies as noted in the chart have all been unremarkable. This included ultrasound of the right upper quadrant as well as CT scan of the abdomenwhich did not show anything to explain her nausea and vomiting. There was an incidental finding which has been there previously as well including mild thickening of the ascending colon wall. He has been tried on multiple medications and had a brain MRI as well and was seen by psychiatrist also since he has history of depression for which he is on multiple medications. Currently he has been on various antiemetic including erythromycin but nothing seemed to have helped much. He claims that her weight was 140 lb and it has dropped below 130 now since she has not been able to eat. However she continues to have bowel movements which she describes as soft and yellow. Initially she did have some chest wall pain which has resolved. No abdominal pain reported by the patient either. OBJECTIVE Physical Exam: Physical Exam Alert oriented and in no distress. He was communicating well. He did have some retching with a no vomiting and this was more of burping air that I could see and she admitted that she does have some burping of the air that has recently started. Vital signs are stable. There is no nystagmus. No lymphadenopathy noted in the neck. Good bilateral air entry in the examination of the lungs. Heart sounds are regular. Abdomen is soft benign and nontender. No organomegaly. Bowel sounds normal. Extremities reveal no edema. No neurological focal signs present. Lab/Radiology/Diagnostic Review: Laboratory review: Lab results in the last 24 hours: Recent Results (from the past 24 hour(s)) Comprehensive metabolic panel Collection Time: 04/07/24 7:33 AM Result Value Ref Range Sodium 138 135 - 145 mmol/L Potassium, pl 3.0 (L) 3.3 - 4.9 mmol/L Chloride 92 (L) 97 - 110 mmol/L CO2 32 22 - 32 mmol/L Anion gap 14 2 - 15 mmol/L BUN 7 6 - 25 mg/dL Creatinine 0.75 0.60 - 1.10 mg/dL Glucose 135 70 - 199 mg/dL Calcium 9.6 8.5 - 10.3 mg/dL Bilirubin, total 0.6 0.1 - 1.2 mg/dL Protein, pl 7.2 6.5 - 8.5 g/dL Albumin 4.0 3.5 - 5.0 g/dL Alk phos 93 40 - 130 Units/L ALT 28 7 - 45 Units/L AST 19 10 - 45 Units/L Phosphorus Collection Time: 04/07/24 7:33 AM Result Value Ref Range Phosphorus, pl 3.8 2.3 - 4.5 mg/dL Magnesium Collection Time: 04/07/24 7:33 AM Result Value Ref Range Magnesium 2.0 1.4 - 2.5 mg/dL eGFR Collection Time: 04/07/24 7:33 AM Result Value Ref Range eGFR >90 >=60 mL/min/1.73 m2 No results found. Vitals: 24hr Min/Max: Temp Min: 36.5 ??C (97.7 ??F) Max: 37.1 ??C (98.7 ??F) Pulse Min: 92 Max: 112 BP Min: 113/66 Max: 139/95 Resp Min: 16 Max: 16 SpO2 Min: 98 % Max: 100 % Most Recent : BP 139/95 (BP Location: Left arm) Pulse 92 Temp 36.8 ??C (98.2 ??F) (Oral) Resp 16 Ht 154.9cm (5' 0.98 ) Wt 58.3 kg (128 lb 9.6 oz) SpO2 100% BMI 24.31 kg/m?? I/O last 2 completed shifts: In: 2894.5 [P.O.:240; I.V.:1673.5; NG/GT:481; IV Piggyback:500] Out: - No intake/output data recorded. ASSESSMENT Principal Problem: Intractable nausea and vomiting Active Problems: Intractable vomiting The etiology of nausea and vomiting so far remained unclear although she has been on multiple medications as he has had extensive workup done. She has claimed that she did not have this problem in the past. An acute viral infection sometimes could have a prolonged effect and that occasionally may lead to longstanding nausea and vomiting. However all the tests so far otherwise been unremarkable and normal. The other issue is that of relative malnutrition and concerns for adequate nutritional intake. PLAN I recommend stopping most of her medications which he is being given for sleeping, anxiety medications, erythromycin as well as morphine. May start Phenergan suppository Q 8 hourly Consider amitriptyline 25 mg q.h.s. if it is safe to stop other medications which she has been given for depression and anxiety. Many times nonselective SSRI work better and these kind what appears like a psychogenic vomiting. Obtain a HIDA scan of the gallbladder with CCK as that could occasionally be a reason presenting with nausea and vomiting. Anam Jenkins MD 04/07/2024 * Nicholas Saba, DO - 04/07/2024 8:28 AM CDT Daily Progress SUBJECTIVE Chief complaint of vomiting INTERVAL HISTORY: Burning with IV erytthromycin yesterday. Dobbhoff placed which was subsequently dislodged during emesis. D/w gi at bedside. OBJECTIVE Vitals: 24hr Min/Max: Temp Min: 36.5 ??C (97.7 ??F) Max: 37.1 ??C (98.8 ??F) Pulse Min: 96 Max: 112 BP Min: 101/63 Max: 135/92 Resp Min: 16 Max: 16 SpO2 Min: 98 % Max: 99 % Most Recent : Vitals: 04/07/24 0425 BP: 113/66 Pulse: 107 Resp: 16 Temp: 36.5 ??C (97.7 ??F) SpO2: 99% Physical exam: General Appearance: Alert, cooperative, no distress Head: Normocephalic, without obvious abnormality, atraumatic Eyes: PERRL, conjunctiva clear, EOM's intact, no scleral icterus Nose: Nares normal, septum midline, mucosa normal, no drainage Throat: Lips, mucosa, and tongue normal; mucous membranes moist Neck: Symmetrical, trachea midline, no JVD Lungs: Normal respiratory effort Cardiovascular: Abdomen: Extremities: Skin: no rashes, lesions or bruising Neurologic: CNII-XII intact. Psychosocial: Normal affect and mood Lab/Radiology/Diagnostic Review: Laboratory review: reviewed the laboratory results Imaging review: I have reviewed the results ASSESSMENT/PLAN: Nausea and vomiting, unclear etiology. GI following, d/w team. Start prn rectal phenergan. Considertca, message left with psych. [place] in am. EGD, right upper quadrant ultrasound showing hepatic steatosis, Lipase, hCG, TSH, C diff (although no diarrhea), EBV, CMV cortisol, COVID, brain MRI without etiology. Ongoing symptoms despite Zofran, Compazine, benzodiazepine, olanzapine, Benadryl. Her symptoms started 2 weeks after returning from [place] and recently starting a new job. Her travel companions were not sick. She denies new/unusual foods or drinking well/stream water. Psychiatry does not think anxiety/depression is playing a role. No iv access. Order picc. May need tpn but hoping to avoid. Consider feeding tube placement. Hypokalemia, replace Anion gap metabolic acidosis, suspect starvation ketosis, resolved. Stop bicarbonate containing fluids. Start half NS and D5. Lactate normal. Elevated beta hydroxybutyrate Transaminitis, resolved. 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 REASON FOR ASSESSMENT: Follow Up Encounter Date: 04/06/24 2:22 PM Admission Date: 03/30/2024 LOS: 6 days HPI: Patient is a 39 y.o. female with history of anxiety, depression, Cavanaugh syndrome, GERD, presenting for intractable nausea and vomiting. Objective Past Medical History: Diagnosis Date Anxiety Depression GERD (gastroesophageal reflux disease) Vaginal vestibulitis Past Surgical History: Procedure Laterality Date SECTION Social History Tobacco Use Smoking status: Never Passive exposure: Never Smokeless tobacco: Never Substance and Sexual Activity Drug use: Yes Types: Marijuana Comment: uses 2x per month on average Sexual activity: Yes Partners: Male control/protection: OCP Alcohol Use: Not on file MEDICATION/LAB REVIEW: Scheduled Meds: acetaminophen, 1,000 mg, oral, TID ARIPiprazole, 4 mg, oral, Daily DULoxetine DR, 30 mg, oral, Daily with evening meal enoxaparin, 40 mg, subcutaneous, Daily-2100 erythromycin, 500 mg, intravenous, Q6H ELLEN famotidine, 20 mg, intravenous, Q12H ELLEN mirtazapine, 7.5 mg, oral, Nightly ondansetron, 4 mg, intravenous, TID ramelteon, 8 mg, oral, Nightly scopolamine, 1 patch, transdermal, Q72H sodium chloride 0.9%, 5-10 mL, intra-catheter, Q12H ELLEN verapamiL, 40 mg, oral, Daily Continuous Infusions: sodium bicarbonate, 75 mL/hr, Last Rate: 75 mL/hr (04/06/24 1119) PRN Meds: benzocaine-menthoL clonazePAM LORazepam morphine prochlorperazine sodium chloride 0.9% traMADoL trimethobenzamide Recent Labs Lab Units 04/06/24 1053 04/05/24 0659 04/04/24 0713 SODIUM mmol/L 136 136 135 POTASSIUM PLASMA mmol/L 3.3 3.4 4.5 CHLORIDE mmol/L 95* 99 97 CO2 mmol/L 28 21* 22 BUN SERUM mg/dL 5* 11 10 CREATININE mg/dL 0.65 0.73 0.74 [id number] mL/min/1.73 m2 >90 >90 >90 CALCIUM mg/dL 9.8 9.2 9.8 ALBUMIN g/dL 4.4 4.2 4.1 PHOSPHORUS PLASMA mg/dL 2.9 1.4* 4.2 MAGNESIUM mg/dL 1.8 1.9 2.2 Recent Labs Lab Units 04/06/24 1053 04/05/24 0659 04/04/24 0713 04/03/24 1119 04/01/24 0709 03/31/24 0656 03/30/24 2307 GLUCOSE mg/dL 136 104 98 97 71 80 -- POC GLUCOSE MONITOR mg/dL -- -- -- -- -- -- 86 ALT Date Value Ref Range Status 04/06/2024 38 7 - 45 Units/L Final AST Date Value Ref Range Status 04/06/2024 20 10 - 45 Units/L Final Alk phos Date Value Ref Range Status 04/06/2024 93 40 - 130 Units/L Final Lab Results Component Value Date HGBA1C 5.6 04/01/2024 NURSING ASSESSMENT: Last BM Date: 04/05/24 Bowel Sounds (All Quadrants): Present Emesis Assessment Emesis Color/Appearance: Yellow, Green Madhu Scale Score: 20 Skin Integrity: Intact Vital Signs BP: 135/92 Temp: 37.1 ??C (98.8 ??F) Pulse: 105 Resp: 16 SpO2: 98 % Intake/Output Summary (Last 24 hours) at 04/06/2024 1422 Last data filed at 04/06/2024 1250 Gross per 24 hour Intake 1250 ml Output -- Net 1250 ml Adult Malnutrition Scoring Tool (MST) What diet do you follow at home?: regular Have You Recently Lost Weight Without Trying?: Yes (Comment) How Much Weight Have You Lost?: 2 - 13 lb Have you been eating poorly because of a decreased appetite?: Yes Malnutrition Screening Tool (MST) Score: 2 Within the past 12 months, you worried that your food would run out before you got the money to buymore.: Never true Within the past 12 months, the food you bought just didn't last and you didn't have money to get more.: Never true Anthropometrics Weight: 63 kg (139 lb) Admission Weight : 63.1 kg Weight Change: 0.00 kg (0.00 lbs) IBW/kg (Calculated) : 47.6 kg Height: 154.9 cm (5' 0.98 ) Weight in (lb) to have BMI = 25: 132 BMI (Calculated): 26.3 Wt Readings from Last 10 Encounters: 03/30/24 63 kg (139 lb) 03/28/24 63 kg (139 lb) 03/28/24 63 kg (139 lb) 03/11/24 62.1 kg (137 lb) 11/27/23 64.1 kg (141 lb 6.4 oz) 11/08/23 64.4 kg (142 lb) 10/18/23 63.5 kg (140 lb) ESTIMATED NEEDS: Total Kcal/kg Estimated Needs : 1332.8 Kcal/k. Type of Weight Used for Estimated Kcals: [place] Total Protein Estimated Needs (gm): 57.12 Protein Needs Based on g/k.2 Type of Weight Used for Estimated Protein : [place] Dietary Orders (From admission, onward) Start Ordered 04/06/24 1421 Tube Feeding Diet Continuous; [employer] Standard 1.4 Maxime; 40; Nasoduodenal tube; 60;Water; Every 4 hours (Tube Feeding Diet Panel) Diet effective now Comments: Initiate TF at 10 mls/hr, increase by 10 mls q6 until goal of 40 mls/hr is reached. Question Answer Comment Tube feeding type: Continuous ([facility]) Tube Feeding Formula: Dejah WIS[employer]IV[employer] Standard 1.4 Maxime Tube Feeding Continuous (mL/hr): 40 Per Tube: Nasoduodenal tube Tube Feeding Flush (mL): 60 Flush Type: Water Flush Frequency: Every 4 hours 04/06/24 1422 04/05/24 1700 Oral Nutrition Supplements ([facility]) Select Supplement: Ensure Clear - Any Flavor All Meals Question: ([facility]) Select Supplement: Answer: Ensure Clear - Any Flavor 04/05/24 1319 04/03/24 1008 Adult Diet Clear Liquid Diet effective now Question: ([facility]) Diet type Answer: Clear Liquid 04/03/24 1007 Allergies: Reviewed, latex IMPRESSION: 04/06: Consult received to initiate TF with dobhoff feeds. Recommend [employer] 1.4 with a goal of 40 mls/hr. This will provide 1344 kcals and 59 g of protein. Pt still with nausea this morning. If TFis not tolerated, would recommend TPN. 04/05: Consulted yesterday for TPN which was not started. No plans to start it today either but willreevaluate daily. Pt threw up about 6 times yesterday then 2 more episodes over night. She had about 2 oz of cranberry juice but felt sick afterward. Complains of a lot of nausea still. GI started erythromycin yesterday and increased it today. Psych started Remeron. GI does not want to place a dobho ff. Will continue to monitor tolerance to diet and need for TPN. 04/01: Pt screened at nutrition risk, NPO status and MST of 2: wt loss and poor appetite. Pt reportsintense pain with PO intake and frequent n/v. She states she tried to drink cranberry juice, but wasn't able to keep it down. Pt reports last Monday was the last time she had any substantial amount of PO intake, she ate dinner with her parents. 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 Pt reports discussing her symptoms with coworkers who made her aware of the possibility of TPN. Informed pt that TPN is likely not indicated, but will monitor results of EGD. Discussed standard progression of diet advancement. Pt verbalizes understanding and comfortability. Pt reports UBW of 145 lbs. She states she was weighed at 134 lbs overnight, no documentation of said weight. Current weight charted as 139 lbs. Pt reports 139 lbs is a stated weight. Ordered weight check to determine if weight loss is present. NFPE completed. No physical findings of muscle wasting or fat loss noted. Malnutrition workup pending new weight. Pt currently NPO for EGD. Monitor findings, diet advancement, and new weight. ASPEN MALNUTRITION ASSESSMENT: Date of completion: 04/01/2024 NUTRITION FOCUSED PHYSICAL EXAM: Completed, no signs of wasting noted. Subcutaneous Fat Loss Orbital Region - Surrounding the Eye: Slightly bulged fat pads Cheek Region - Buccal Fat: Full, round filled-out cheeks Upper Arm Region - Triceps/Biceps: Ample fat tissue obvious between folds of skin Muscle Loss Confucianist Region - Temporalis Muscle: Can see/feel well-defined muscle Clavicle Bone Region - Pectoralis Major, Deltoid, Trapezius Muscles: Not visible in male, visible but not prominent in female Clavicle and Acromion Bone Region - Deltoid Muscle: Rounded, curves at arm/shoulder/neck Dorsal Hand - Interosseous Muscle: Muscle bulges, could be flat in some well nourished people Anterior Thigh and Patellar Region - Quadricep Muscle: Well-rounded, well-developed Posterior Calf Region - Gastrocnemius Muscle: Well-developed bulb of muscle NUTRITION DIAGNOSIS: Nutrition Diagnosis 1: Inadequate energy intake Related to: NPO status Evidenced by: Physical finding INTERVENTION(S): Summary: Initial assessment, NFPE, Orders weight check Ensure Clear started by MD Monitor intake vs need for TPN GOAL(S): Advance to oral intake as medically able, Patient/caregiver able to teach back understanding of role of diet in disease process prior to discharge MONITORING/EVALUATION: Diet advancement, I/O, Labs, Plan of care, Weight changes, Discharge plans Latia Thompson RD, LD * Zacarias Nj PA - 04/06/2024 10:02 AM CDT Gastroenterology Progress GI Problems: Vomiting Interval History: Patient seen: she continues to have issues with nausea and vomited once earlier this morning without having eat or drink before. Overall she reports she is better from when she arrived. She he is tolerating some clears. No chest pain or abdominal pain. She had a BM yesterday. EGD, ultrasound and KUB all largely unremarkable. CT without obstruction but notes possible chronicascending colon inflammation. She has no family history of IBD. MRI brain with no acute findings to explain symptoms Slight bump in AST/ALT but closer to normal yesterday, await today's labs. Note also bumped in October 2023. Lactate 0.9 yesterday. C diff negative. A1c 5.6 ASSESSMENT/PLAN: 1. Intractable nausea and vomiting - started about 03/27. No abdominal pain. Chest pains persist, atrest, related to frequent emesis. Occasional NSAID use, reportedly rare cannabis use. Unclear etiology to ongoing symptoms. Vomiting continues, CT with retained air, fluid in stomach. 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 Plan: Check CRP, calprotectin, CMP. Continue scheduled erythromycin, Remeron and Zofran, as well asprn Ativan and prn Compazine. CLD as tolerated. Allergy to Reglan noted. No nutrition in over a week, may need to consider enteral nutrition, though she may not tolerate. Reviewed CT findings, no acute changes, ascending colon with mild wall thickening and prominence ofsubmucosal low density without adjacent inflammation, no obstruction, colonoscopy recommended outptin light of family hx when she is able to tolerate a prep. Discussed Dobbhoff vs TPN with Dr Saba. Vitals: 04/05/24 1132 04/05/24202804/06/24 0456 04/06/24 0928 BP: 132/93 149/79 141/90 101/63 BP Location: Left arm Right arm Left arm Patient Position: Lying Sitting Pulse: 92 67 112 96 Resp: 18 16 16 Temp: 37.1 ??C (98.7 ??F) 37.2 ??C (98.9 ??F) 37.1 ??C (98.8 ??F) TempSrc: Oral Oral Oral SpO2: 100% 100% 100% Weight: Height: Physical Exam Vitals reviewed. Constitutional: General: She is not in acute distress. HENT: Head: Normocephalic. Eyes: Extraocular Movements: Extraocular movements intact. Cardiovascular: Rate and Rhythm: Normal rate. Pulmonary: Effort: Pulmonary effort is normal. Abdominal: General: Abdomen is flat. Bowel sounds are normal. There is no distension. Palpations: Abdomen is soft. Tenderness: There is no abdominal tenderness. There is no guarding or rebound. Skin: General: Skin is warm and dry. Neurological: Mental Status: She is alert. Psychiatric: Mood and Affect: Mood normal. Lab/Radiology/Diagnostic Review: Recent Labs Lab Units 04/01/24 0709 03/31/24 0656 03/30/24 1540 WBC K/cumm 6.3 9.7 12.7* HEMOGLOBIN g/dL 12.5 12.2 14.7 HEMATOCRIT % 38.2 35.6 43.4 PLATELETS K/cumm 334 339 462* Recent Labs Lab Units 04/05/24 0659 04/04/24 0713 04/03/24 1119 04/01/24 0709 SODIUM mmol/L 136 135 136 137 POTASSIUM PLASMA mmol/L 3.4 4.5 4.0 4.0 BUN SERUM mg/dL 11 10 11 6 CREATININE mg/dL 0.73 0.74 0.81 0.75 CALCIUM mg/dL 9.2 9.8 9.5 8.9 ALBUMIN g/dL 4.2 4.1 -- 3.6 ALK PHOS Units/L 87 94 -- 76 ALT Units/L 48* 58* -- 30 AST Units/L 33 57* -- 25 BILIRUBIN TOTAL mg/dL 0.5 0.4 -- 0.4 CARLOS Charles Cosigned by Anam Jenkins MD at 04/09/2024 11:06 AM CDT * Shane Sabaporfiriolayla Rebollar, - 04/06/2024 8:52 AM CDT Daily Progress SUBJECTIVE Chief complaint of Vomiting INTERVAL HISTORY: Vomited once this morning. Feels worn out. Nausea limiting oral intake. OBJECTIVE Vitals: 24hr Min/Max: Temp Min: 37.1 ??C (98.7 ??F) Max: 37.2 ??C (98.9 ??F) Pulse Min: 67 Max: 112 BP Min: 132/93 Max: 149/79 Resp Min: 16 Max: 18 SpO2 Min: 100 % Max: 100 % Most Recent : Vitals: 04/06/24 0456 BP: 141/90 Pulse: 112 Resp: 16 Temp: 37.1 ??C (98.8 ??F) SpO2: 100% Physical exam: General Appearance: Alert, cooperative, no distress Head: Normocephalic, without obvious abnormality, atraumatic Eyes: PERRL, conjunctiva clear, EOM's intact, no scleral icterus Nose: Nares normal, septum midline, mucosa normal, no drainage Throat: Lips, mucosa, and tongue normal; mucous membranes moist Neck: Symmetrical, trachea midline, no JVD Lungs: Normal respiratory effort Cardiovascular: Abdomen: Extremities: Skin: Neurologic: CNII-XII intact. Psychosocial: Normal affect and mood Lab/Radiology/Diagnostic Review: Laboratory review: reviewed the laboratory results Imaging review: I have reviewed the results ASSESSMENT/PLAN: Nausea and vomiting, unclear etiology. GI following, discussed with team. Start Dobbhoff tube feeds. EGD, right upper quadrant ultrasound showing hepatic steatosis, Lipase, hCG, TSH, cortisol, COVID,brain MRI without etiology. Ongoing symptoms despite Zofran, Compazine, benzodiazepine, olanzapine,Benadryl. Her symptoms started 2 weeks after returning from [place] and recently starting a new job. Her travel companions were not sick. She denies any new/unusual foods or drinking well/stream water. Follow-up C diff. Follow-up CMV/EBV. Psychiatry does not think anxiety/depression is playing a role. Anion gap metabolic acidosis, suspect starvation ketosis, resolved. Lactate normal. Elevated beta hydroxybutyrate Hypophosphatemia, resolved Transaminitis. 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 Follow up Psychiatry Consult Attending Physician: Nicholas Saba DO Subjective Interim History: Ángela Ibrahim is a 39 y.o. female, who was last seen by me earlier today. Patient said she is doing this morning. Feels a little tired but otherwise doing okay. She said shedid not have vomiting last night. Patient denies feeling depressed. Feels less anxious. She said she tolerated the Mirtazapine medications without problems Nurses Reports Patient denies nausea or vomiting overnight. NaBicarb@75ml/hr. IV erythromycin q6h. IV ativan givenx 1. Vitals: Blood pressure 141/90, pulse 112, temperature 37.1 ??C (98.8 ??F), temperature source Oral, resp. rate 16, height 154.9 cm (5' 0.98 ), weight 63 kg (139 lb), SpO2 100%. Allergies: Metoclopramide and Latex Current Psychotropics: Medications Prior to Admission Medication Sig Dispense Refill Last Dose ARIPiprazole (ABILIFY) 2 mg tablet Take 2 tablets (4 mg total) by mouth daily 03/30/[address] (CYMBALTA) 60 mg capsule Take 1 capsule (60 mg total) by mouth daily 03/30/2024 clonazePAM (KlonoPIN) 0.5 mg tablet Take 1 tablet (0.5 mg total) by mouth 3 (three) times a day as needed for anxiety famotidine (PEPCID) 40 mg tablet Take 1 tablet (40 mg total) by mouth nightly 90 tablet 1 HYDROcodone-acetaminophen (NORCO) 5-325 mg per tablet Take 1 tablet by mouth every 6 (six) hours asneeded for pain 10 tablet 0 ondansetron ODT (ZOFRAN-ODT) 4 mg disintegrating tablet Take 1 tablet (4 mg total) by mouth every 8(eight) hours as needed for nausea or vomiting [address] (PROTONIX) 40 mg EC tablet Take 1 tablet (40 mg total) by mouth daily 90 tablet 1 [place] 0.15 mg-30 mcg (84)/10 mcg (7) tablets,dose pack,3 month Take 1 tablet by mouth daily traZODone (DESYREL) 50 mg tablet Take 2 tablets (100 mg total) by mouth nightly as needed for sleep verapamiL (CALAN) 40 mg tablet Take 2 tablets (80 mg total) by mouth daily Current Medications: Current Facility-Administered Medications: acetaminophen (TYLENOL) tablet 1,000 mg, 1,000 mg, oral, TID, Bruno Cobb MD, 1,000mg at 04/05/242008 ARIPiprazole (ABILIFY) tablet 4 mg, 4 mg, oral, Daily, Bruno Cobb MD, 4 mg at 04/05/24 0834 clonazePAM (KlonoPIN) tablet 0.5 mg, 0.5 mg, oral, TID PRN, Bruno Cobb MD, 0.5 mg at 04/06/[address] (CYMBALTA) extended release capsule 30 mg, 30 mg, oral, Daily with evening meal, Kevon Emanuel MD, 30 mg at 04/05/24 1820 enoxaparin (LOVENOX) syringe 40 mg, 40 mg, subcutaneous, Daily-2100, Nicholas Saba Smooth, DO, 40 mg at 04/05/242010 erythromycin (ERYTHROCIN) 500 mg in sodium chloride 0.9% 100 mL IVPB, 500 mg, intravenous, Q6H Richard HUGHES Jennifer, PA, Last Rate: 110 mL/hr at 04/06/24 0616, 500 mg at 04/06/24 0616 famotidine (PEPCID) injection 20 mg, 20 mg, intravenous, Q12H Reza HUGHES Jonathan Charles, MD, 20 mg at 04/05/242008 LORazepam (ATIVAN) injection 0.5 mg, 0.5 mg, intravenous, TID PRN, Bruno Cobb MD, 0.5 mg at 04/05/242134 mirtazapine (REMERON) tablet 7.5 mg, 7.5 mg, oral, Nightly, Sandy, Kevon Barron MD, 7.5 mg at 04/05/242008 morphine injection 2 mg, 2 mg, intravenous, Q3H PRN, Bruno Cobb MD, 2 mg at 04/03/24 0956 ondansetron (ZOFRAN) injection 4 mg, 4 mg, intravenous, TID, Bruno Cobb MD, 4 mg at 04/05/242009 prochlorperazine (COMPAZINE) injection 5 mg, 5 mg, intravenous, Q6H PRN, Nicholas Saba Smooth, DO, 5 mg at 04/06/24 0731 ramelteon (ROZEREM) tablet 8 mg, 8 mg, oral, Nightly PRN, Bruno Cobb MD, 8 mg at 04/03/24 1942 scopolamine patch 72 hour 1 patch, 1 patch, transdermal, Q72H, AhmaNicholas vogt Smooth, DO, 1 patch at04/05/24 1505 sodium bicarbonate 150 mEq/1,150 mL in dextrose 5 % infusion, 75 mL/hr, intravenous, Continuous, Ahmad, Bazalejandroa Smooth, DO, Last Rate: 75 mL/hr at 04/06/24 0617, 75 mL/hr at 04/06/24 0617 sodium chloride 0.9% flush 5-10 mL, 5-10 mL, intra-catheter, Q12H ELLEN, Ahmad, Bazalejandroa Smooth, DO, 10mL at 04/05/242017 sodium chloride 0.9% flush 5-20 mL, 5-20 mL, intra-catheter, PRN, Ahmad, Bazalejandroa Smooth, DO sodium chloride 0.9% infusion, 75 mL/hr, intravenous, Continuous, Ahmad, Bazalejandroa Smooth, DO, Stoppedat 04/05/24 1416 traMADoL (ULTRAM) tablet 50 mg, 50 mg, oral, Q6H PRN, Bruno Cobb MD trimethobenzamide (TIGAN) injection 200 mg, 200 mg, intramuscular, Q6H PRN, Jeanie Ramos PA, 200 mg at 04/03/24 1742 verapamiL (CALAN) tablet 40 mg, 40 mg, oral, Daily, Nicholas Saba, DO, 40 mg at 04/05/24 0834 Relevant Labs: Chem/LFT Lab History Latest Ref Rng & Units 04/01/2024 07:09 04/03/2024 11:19 2024 07:13 04/05/2024 06:59 Labs-Chem/LFT Sodium 135 - 145 mmol/L 137 136 135 136 Creatinine 0.60 - 1.10 mg/dL 0.75 0.81 0.74 0.73 Bilirubin, total 0.1 - 1.2 mg/dL 0.4 0.4 0.5 AST 10 - 45 Units/L 25 57 33 ALT 7 - 45 Units/L 30 58 48 Alk phos 40 - 130 Units/L 76 94 87 CrCl- Actual Body Weight (Cockcroft-Gault) 100.2 92.8 100.6 102 Hematology Lab History Latest Ref Rng & Units 03/28/2024 03/30/2024 15:40 03/31/2024 06:56 04/01/2024 07:09 Labs - Hematology WBC 3.8 - 9.9 K/cumm 14.9 12.7 9.7 6.3 Total Hb, POC 11.9 - 15.5 g/dL 13.6 14.7 12.2 12.5 Hct 35.6 - 45.5 % 41.6 43.4 35.6 38.2 Plt 150 - 400 K/cumm 422 462 339 334 Neutrophil abs 1.5 - 6.5 K/cumm 11.1 9.8 3.8 2.3 Lymphocytes, abs 0.8 - 3.3 K/cumm 2.6 2.1 4.8 3.1 Details More abnormal values are hidden. Newest values shown. Go to activity for more data. More values are hidden. Newest values shown. Go to activity for more data. Objective Mental Status Examination: Appearance & Behavior: Appearance: Appropriately Dressed and Adequate Hygiene Habitus: Well built Attitude: Cooperative, Pleasant Psychomotor Activity: Normal Cognition: Orientation: Oriented to time and place and person Recent Memory: Intact, Adequate Remote Memory: Intact, Adequate Concentration: Intact, Adequate Fund of Knowledge: Adequate Speech: Normal Rate, Normal Amount, Coherent Mood & Affect: Mood: I feel OK Affect: Stable, Appeared Appropriate for the Described Mood Safety/Dangerousness: Denied Suicidal / Homicidal Thoughts Thought Content: Thought Process: Goal Directed, Logical, Coherent Hallucinations: Denied any Hallucinations Delusions: No Delusional Believes Shared, Denied paranoia Insight & Judgement: Insight: Intact Judgement: Intact Diagnosis: Bipolar 1 disorder Generalized anxiety disorder Cannabis use disorder Assessment & Suggestions: Continue the patient on Mirtazapine 7.5 mg orally once daily at Night. Continue with Aripiprazole 4 mg orally once daily and Duloxetine 30 mg orally once daily with evening meal. Continue with PRN Clonazepam medications. * Zacarias Nj PA - 04/05/2024 1:21 PM CDT Gastroenterology Progress GI Problems: Vomiting Interval History: Patient seen: she continues to have issues with nausea and has had a little vomiting today. Possibly a little better today. Started erythromycin yesterday. She tolerated some clears. No chest pain today. Still no abdominal pain. She had a BM yesterday. EGD, ultrasound and KUB all largely unremarkable. CT without obstruction MRI brain with no acute findings to explain symptoms Slight bump in AST/ALT yesterday but closer to normal today. Note also bumped in October 2023. ASSESSMENT/PLAN: 1. Intractable nausea and vomiting - started about 03/27. No abdominal pain. Chest pains persist, atrest, related to frequent emesis. Occasional NSAID use, reportedly rare cannabis use. Unclear etiology to ongoing symptoms. Vomiting continues, CT with retained air, fluid in stomach. 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 Plan: Supportive care. Dr Emanuel to try Remeron. Continue scheduled erythromycin and Zofran, prn Ativan and prn Compazine. CLD as tolerated. Allergy to Reglan noted. No nutrition in over a week, unlikely to tolerate a dobhoff. Reviewed CT findings, no acute changes, ascending colon with mild wall thickening and prominence ofsubmucosal low density without adjacent inflammation, no obstruction, colonoscopy recommended outptin light of family hx when she is able to tolerate a prep Etiology and medication management discussed with Dr Emanuel. Vitals: 04/04/24 2016 04/05/24 0403 04/05/24 0832 04/05/24 1132 BP: 152/77 107/67 161/82 132/93 BP Location: Left arm Left arm Left arm Patient Position: Lying Lying Pulse: 67 65 74 92 Resp: 18 18 16 18 Temp: 36.9 ??C (98.4 ??F) 36.5 ??C (97.7 ??F) 36.7 ??C (98 ??F) 37.1 ??C (98.7 ??F) TempSrc: Oral Oral Oral SpO2: 100% 99% 100% 100% Weight: Height: Physical Exam Vitals reviewed. Constitutional: General: She is not in acute distress. HENT: Head: Normocephalic. Eyes: Extraocular Movements: Extraocular movements intact. Cardiovascular: Rate and Rhythm: Normal rate. Pulmonary: Effort: Pulmonary effort is normal. Abdominal: General: Abdomen is flat. Bowel sounds are normal. There is no distension. Palpations: Abdomen is soft. Tenderness: There is no abdominal tenderness. There is no guarding or rebound. Skin: General: Skin is warm and dry. Neurological: Mental Status: She is alert. Psychiatric: Mood and Affect: Mood normal. Lab/Radiology/Diagnostic Review: Recent Labs Lab Units 04/01/24 0709 03/31/24 0656 03/30/24 1540 WBC K/cumm 6.3 9.7 12.7* HEMOGLOBIN g/dL 12.5 12.2 14.7 HEMATOCRIT % 38.2 35.6 43.4 PLATELETS K/cumm 334 339 462* Recent Labs Lab Units 04/05/24 0659 04/04/24 0713 04/03/24 1119 04/01/24 0709 SODIUM mmol/L 136 135 136 137 POTASSIUM PLASMA mmol/L 3.4 4.5 4.0 4.0 BUN SERUM mg/dL 11 10 11 6 CREATININE mg/dL 0.73 0.74 0.81 0.75 CALCIUM mg/dL 9.2 9.8 9.5 8.9 ALBUMIN g/dL 4.2 4.1 -- 3.6 ALK PHOS Units/L 87 94 -- 76 ALT Units/L 48* 58* -- 30 AST Units/L 33 57* -- 25 BILIRUBIN TOTAL mg/dL 0.5 0.4 -- 0.4 CARLOS Charles Cosigned by Anam Jenkins MD at 04/09/2024 11:06 AM CDT * Kevon Emanuel MD - 04/05/2024 12:52 PM CDT Images from the original note were not included. Follow up Psychiatry Consult Attending Physician: Nicholas Saba DO Subjective Interim History: Ángela Ibrahim is a 39 y.o. female, who was last seen by me earlier today. Patient said she slept okay last night. She did not have any nausea or vomiting last night from 11pm to about 4am this morning. She denies feeling depressed. She denies feeling anxious. She again said she likes her new job and she had a good vacation with her Family recently. Vitals: Blood pressure 132/93, pulse 92, temperature 37.1 ??C (98.7 ??F), temperature source Oral, resp. rate 18, height 154.9 cm (5' 0.98 ), weight 63 kg (139 lb), SpO2 100%. Allergies: Metoclopramide and Latex Current Psychotropics: Medications Prior to Admission Medication Sig Dispense Refill Last Dose ARIPiprazole (ABILIFY) 2 mg tablet Take 2 tablets (4 mg total) by mouth daily 03/30/[address] (CYMBALTA) 60 mg capsule Take 1 capsule (60 mg total) by mouth daily 03/30/2024 clonazePAM (KlonoPIN) 0.5 mg tablet Take 1 tablet (0.5 mg total) by mouth 3 (three) times a day as needed for anxiety famotidine (PEPCID) 40 mg tablet Take 1 tablet (40 mg total) by mouth nightly 90 tablet 1 HYDROcodone-acetaminophen (NORCO) 5-325 mg per tablet Take 1 tablet by mouth every 6 (six) hours asneeded for pain 10 tablet 0 ondansetron ODT (ZOFRAN-ODT) 4 mg disintegrating tablet Take 1 tablet (4 mg total) by mouth every 8(eight) hours as needed for nausea or vomiting [address] (PROTONIX) 40 mg EC tablet Take 1 tablet (40 mg total) by mouth daily 90 tablet 1 [place] 0.15 mg-30 mcg (84)/10 mcg (7) tablets,dose pack,3 month Take 1 tablet by mouth daily traZODone (DESYREL) 50 mg tablet Take 2 tablets (100 mg total) by mouth nightly as needed for sleep verapamiL (CALAN) 40 mg tablet Take 2 tablets (80 mg total) by mouth daily Current Medications: Current Facility-Administered Medications: acetaminophen (TYLENOL) tablet 1,000 mg, 1,000 mg, oral, TID, Bruno Cobb MD, 1,000mg at 04/04/242124 ARIPiprazole (ABILIFY) tablet 4 mg, 4 mg, oral, Daily, Bruno Cobb MD, 4 mg at 04/05/24 0834 clonazePAM (KlonoPIN) tablet 0.5 mg, 0.5 mg, oral, TID PRN, Bruno Cobb MD DULoxetine DR (CYMBALTA) extended release capsule 30 mg, 30 mg, oral, Daily with evening meal, Kevon Emanuel MD, 30 mg at 04/04/24 1755 enoxaparin (LOVENOX) syringe 40 mg, 40 mg, subcutaneous, Daily-2100, Nicholas Saba Smooth, DO, 40 mg at 04/04/242124 erythromycin (ERYTHROCIN) 500 mg in sodium chloride 0.9% 100 mL IVPB, 500 mg, intravenous, Q6H ELLEN,Jeanie Ramos PA famotidine (PEPCID) injection 20 mg, 20 mg, intravenous, Q12H [facility], Bruno Cobb MD, 20 mg at 04/05/24 0833 LORazepam (ATIVAN) injection 0.5 mg, 0.5 mg, intravenous, TID PRN, Bruno Cobb MD, 0.5 mg at 04/05/24 1135 mirtazapine (REMERON) tablet 7.5 mg, 7.5 mg, oral, Nightly, Kevon Emanuel MD morphine injection 2 mg, 2 mg, intravenous, Q3H PRN, Bruno Cobb MD, 2 mg at 04/03/24 0956 ondansetron (ZOFRAN) injection 4 mg, 4 mg, intravenous, TID, Bruno Cobb MD, 4 mg at 04/05/24 0843 potassium phosphate 30 mmol/510 mL in sodium chloride 0.9% IVPB (premix) 30 mmol, 30 mmol, intravenous, Once, AhjasieldNicholas Smooth, DO, 30 mmol at 04/05/24 1250 prochlorperazine (COMPAZINE) injection 5 mg, 5 mg, intravenous, Q6H PRN, AhmadNicholas Smooth, DO, 5 mg at 04/05/24 1130 ramelteon (ROZEREM) tablet 8 mg, 8 mg, oral, Nightly PRN, Bruno Cobb MD, 8 mg at 04/03/24 1942 scopolamine patch 72 hour 1 patch, 1 patch, transdermal, Q72H, Ahmad, Bazgha Smooth, DO, 1 patch at04/02/24 1516 sodium chloride 0.9% flush 5-10 mL, 5-10 mL, intra-catheter, Q12H ELLEN, Ahmad Baporfirioa Smooth, DO, 10mL at 04/05/24 0906 sodium chloride 0.9% flush 5-20 mL, 5-20 mL, intra-catheter, PRN, AhmadNicholas Smooth, DO sodium chloride 0.9% infusion, 75 mL/hr, intravenous, Continuous, Ahmad, Bazalejandroa Smooth, DO, Last Rate: 75 mL/hr at 04/05/24 0524, 75 mL/hr at 04/05/24 0524 traMADoL (ULTRAM) tablet 50 mg, 50 mg, oral, Q6H PRN, Bruno Cobb MD trimethobenzamide (TIGAN) injection 200 mg, 200 mg, intramuscular, Q6H PRN, Jeanie Ramos PA, 200 mg at 04/03/24 1742 verapamiL (CALAN) tablet 40 mg, 40 mg, oral, Daily, Nicholas Saba, DO, 40 mg at 04/05/24 0834 Relevant Labs: Chem/LFT Lab History Latest Ref Rng & Units 04/01/2024 07:09 04/03/2024 11:19 2024 07:13 04/05/2024 06:59 Labs-Chem/LFT Sodium 135 - 145 mmol/L 137 136 135 136 Creatinine 0.60 - 1.10 mg/dL 0.75 0.81 0.74 0.73 Bilirubin, total 0.1 - 1.2 mg/dL 0.4 0.4 0.5 AST 10 - 45 Units/L 25 57 33 ALT 7 - 45 Units/L 30 58 48 Alk phos 40 - 130 Units/L 76 94 87 CrCl- Actual Body Weight (Cockcroft-Gault) 100.2 92.8 100.6 102 Hematology Lab History Latest Ref Rng & Units 03/28/2024 03/30/2024 15:40 03/31/2024 06:56 04/01/2024 07:09 Labs - Hematology WBC 3.8 - 9.9 K/cumm 14.9 12.7 9.7 6.3 Total Hb, POC 11.9 - 15.5 g/dL 13.6 14.7 12.2 12.5 Hct 35.6 - 45.5 % 41.6 43.4 35.6 38.2 Plt 150 - 400 K/cumm 422 462 339 334 Neutrophil abs 1.5 - 6.5 K/cumm 11.1 9.8 3.8 2.3 Lymphocytes, abs 0.8 - 3.3 K/cumm 2.6 2.1 4.8 3.1 Details More abnormal values are hidden. Newest values shown. Go to activity for more data. More values are hidden. Newest values shown. Go to activity for more data. Objective Mental Status Examination: Appearance & Behavior: Appearance: Appropriately Dressed and Adequate Hygiene Habitus: Well built Attitude: Cooperative, Pleasant Psychomotor Activity: Normal Cognition: Alertness & Orientation: Alert and Oriented to Time, Place & Person Recent Memory: Intact, Adequate Remote Memory: Intact, Adequate Concentration: Intact, Adequate Fund of Knowledge: Adequate Speech: Normal Rate, Normal Amount, Coherent Mood & Affect: Mood: I feel OK Affect: Stable, Appeared Appropriate for the Described Mood Safety/Dangerousness: Denied Suicidal / Homicidal Thoughts Thought Content: Thought Process: Goal Directed, Logical, Coherent Hallucinations: Denied any Hallucinations Delusions: No Delusional Believes Shared, Denied paranoia Insight & Judgement: Insight: Intact Judgement: Intact Diagnosis: Bipolar 1 disorder Generalized anxiety disorder Cannabis use disorder Assessment & Suggestions: Start the patient on Mirtazapine 7.5 mg orally once daily at Night. Hopefully it will help with post viral gastroparesis besides helping with sleep at night. Continue with Aripiprazole 4 mg orally once daily and Duloxetine 30 mg orally once daily with evening meal. Discontinue the PRN Trazodone medications. Continue with PRN Clonazepam medications. * Gissel Buenrostro RD - 04/05/2024 10:58 AM CDT NUTRITION ASSESSMENT Nutrition Status: Malnutrition work-up pending. REASON FOR ASSESSMENT: Follow Up Encounter Date: 04/05/24 1:58 PM Admission Date: 03/30/2024 LOS: 5 days HPI: Patient is a 39 y.o. female with history of anxiety, depression, Cavanaugh syndrome, GERD, presenting for intractable nausea and vomiting. Objective Past Medical History: Diagnosis Date Anxiety Depression GERD (gastroesophageal reflux disease) Vaginal vestibulitis Past Surgical History: Procedure Laterality Date SECTION Social History Tobacco Use Smoking status: Never Passive exposure: Never Smokeless tobacco: Never Substance and Sexual Activity Drug use: Yes Types: Marijuana Comment: uses 2x per month on average Sexual activity: Yes Partners: Male control/protection: OCP Alcohol Use: Not on file MEDICATION/LAB REVIEW: Scheduled Meds: acetaminophen, 1,000 mg, oral, TID ARIPiprazole, 4 mg, oral, Daily DULoxetine DR, 30 mg, oral, Daily with evening meal enoxaparin, 40 mg, subcutaneous, Daily-2100 erythromycin, 500 mg, intravenous, Q6H ELLEN famotidine, 20 mg, intravenous, Q12H ELLEN mirtazapine, 7.5 mg, oral, Nightly ondansetron, 4 mg, intravenous, TID potassium phosphate, 30 mmol, intravenous, Once scopolamine, 1 patch, transdermal, Q72H sodium chloride 0.9%, 5-10 mL, intra-catheter, Q12H ELLEN verapamiL, 40 mg, oral, Daily Continuous Infusions: sodium bicarbonate, 75 mL/hr sodium chloride 0.9%, 75 mL/hr, Last Rate: 75 mL/hr (04/05/24 0524) PRN Meds: clonazePAM LORazepam morphine prochlorperazine ramelteon sodium chloride 0.9% traMADoL trimethobenzamide Recent Labs Lab Units 04/05/24 0659 04/04/24 0713 SODIUM mmol/L 136 135 POTASSIUM PLASMA mmol/L 3.4 4.5 CHLORIDE mmol/L 99 97 CO2 mmol/L 21* 22 BUN SERUM mg/dL 11 10 CREATININE mg/dL 0.73 0.74 [id number] mL/min/1.73 m2 >90 >90 CALCIUM mg/dL 9.2 9.8 ALBUMIN g/dL 4.2 4.1 PHOSPHORUS PLASMA mg/dL 1.4* 4.2 MAGNESIUM mg/dL 1.9 2.2 Recent Labs Lab Units 04/05/24 0659 04/04/24 0713 04/03/24 1119 04/01/24 0709 03/31/24 0656 03/30/24 2307 03/30/242007 GLUCOSE mg/dL 104 98 97 71 80 -- 96 POC GLUCOSE MONITOR mg/dL -- -- -- -- -- 86 -- ALT Date Value Ref Range Status 04/05/2024 48 (H) 7 - 45 Units/L Final AST Date Value Ref Range Status 04/05/2024 33 10 - 45 Units/L Final Alk phos Date Value Ref Range Status 04/05/2024 87 40 - 130 Units/L Final Lab Results Component Value Date HGBA1C 5.6 04/01/2024 NURSING ASSESSMENT: Last BM Date: 04/04/24 Bowel Sounds (All Quadrants): Active Emesis Assessment Emesis Color/Appearance: Yellow, Green Madhu Scale Score: 19 Skin Integrity: Intact Vital Signs BP: 132/93 Temp: 37.1 ??C (98.7 ??F) Pulse: 92 Resp: 18 SpO2: 100 % Intake/Output Summary (Last 24 hours) at 04/05/2024 1358 Last data filed at 04/05/2024 0832 Gross per 24 hour Intake 60 ml Output -- Net 60 ml Adult Malnutrition Scoring Tool (MST) What diet do you follow at home?: regular Have You Recently Lost Weight Without Trying?: Yes (Comment) How Much Weight Have You Lost?: 2 - 13 lb Have you been eating poorly because of a decreased appetite?: Yes Malnutrition Screening Tool (MST) Score: 2 Anthropometrics Weight: 63 kg (139 lb) Admission Weight : 63.1 kg Weight Change: 0.00 kg (0.00 lbs) IBW/kg (Calculated) : 47.6 kg Height: 154.9 cm (5' 0.98 ) Weight in (lb) to have BMI = 25: 132 BMI (Calculated): 26.3 Wt Readings from Last 10 Encounters: 03/30/24 63 kg (139 lb) 03/28/24 63 kg (139 lb) 03/28/24 63 kg (139 lb) 03/11/24 62.1 kg (137 lb) 11/27/23 64.1 kg (141 lb 6.4 oz) 11/08/23 64.4 kg (142 lb) 10/18/23 63.5 kg (140 lb) ESTIMATED NEEDS: Total Kcal/kg Estimated Needs : 1332.8 Kcal/k. Type of Weight Used for Estimated Kcals: [place] Total Protein Estimated Needs (gm): 57.12 Protein Needs Based on g/k.2 Type of Weight Used for Estimated Protein : [place] Dietary Orders (From admission, onward) Start Ordered 04/05/24 1700 Oral Nutrition Supplements ([facility]) Select Supplement: Ensure Clear - Any Flavor All Meals Question: ([facility]) Select Supplement: Answer: Ensure Clear - Any Flavor 04/05/24 1319 04/03/24 1008 Adult Diet Clear Liquid Diet effective now Question: ([facility]) Diet type Answer: Clear Liquid 04/03/24 1007 Allergies: Reviewed, latex IMPRESSION: 04/05: Consulted yesterday for TPN which was not started. No plans to start it today either but willreevaluate daily. Pt threw up about 6 times yesterday then 2 more episodes over night. She had about 2 oz of cranberry juice but felt sick afterward. Complains of a lot of nausea still. GI started erythromycin yesterday and increased it today. Psych started Remeron. GI does not want to place a dobho ff. Will continue to monitor tolerance to diet and need for TPN. 04/01: Pt screened at nutrition risk, NPO status and MST of 2: wt loss and poor appetite. Pt reportsintense pain with PO intake and frequent n/v. She states she tried to drink cranberry juice, but wasn't able to keep it down. Pt reports last Monday was the last time she had any substantial amount of PO intake, she ate dinner with her parents. 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 Pt reports discussing her symptoms with coworkers who made her aware of the possibility of TPN. Informed pt that TPN is likely not indicated, but will monitor results of EGD. Discussed standard progression of diet advancement. Pt verbalizes understanding and comfortability. Pt reports UBW of 145 lbs. She states she was weighed at 134 lbs overnight, no documentation of said weight. Current weight charted as 139 lbs. Pt reports 139 lbs is a stated weight. Ordered weight check to determine if weight loss is present. NFPE completed. No physical findings of muscle wasting or fat loss noted. Malnutrition workup pending new weight. Pt currently NPO for EGD. Monitor findings, diet advancement, and new weight. LASHELL MALNUTRITION ASSESSMENT: Date of completion: 04/01/2024 NUTRITION FOCUSED PHYSICAL EXAM: Completed, no signs of wasting noted. Subcutaneous Fat Loss Orbital Region - Surrounding the Eye: Slightly bulged fat pads Cheek Region - Buccal Fat: Full, round filled-out cheeks Upper Arm Region - Triceps/Biceps: Ample fat tissue obvious between folds of skin Muscle Loss Confucianist Region - Temporalis Muscle: Can see/feel well-defined muscle Clavicle Bone Region - Pectoralis Major, Deltoid, Trapezius Muscles: Not visible in male, visible but not prominent in female Clavicle and Acromion Bone Region - Deltoid Muscle: Rounded, curves at arm/shoulder/neck Dorsal Hand - Interosseous Muscle: Muscle bulges, could be flat in some well nourished people Anterior Thigh and Patellar Region - Quadricep Muscle: Well-rounded, well-developed Posterior Calf Region - Gastrocnemius Muscle: Well-developed bulb of muscle NUTRITION DIAGNOSIS: Nutrition Diagnosis 1: Inadequate energy intake Related to: NPO status Evidenced by: Physical finding INTERVENTION(S): Summary: Initial assessment, NFPE, Orders weight check Ensure Clear started by MD Monitor intake vs need for TPN GOAL(S): Advance to oral intake as medically able, Patient/caregiver able to teach back understanding of role of diet in disease process prior to discharge MONITORING/EVALUATION: Diet advancement, I/O, Labs, Plan of care, Weight changes, Discharge plans Latia Thompson RD, LD * Nicholas Saba, - 04/05/2024 8:51 AM CDT Daily Progress SUBJECTIVE Chief complaint of Vomiting INTERVAL HISTORY: per nurse yesterday, she gags which precipitates vomiting. The patient does not feel this way. She does sometimes cough associated with the vomiting because of burning from the emesis. Parents at bedside.Denies chest pain, sob, vomiting.She has chronically enlarged tonsils and does not have any pain or sore throat currently. She feels slightly better today. Her nausea is persistent but less frequent vomiting. She tolerated some water, and cranberry juice. OBJECTIVE Vitals: 24hr Min/Max: Temp Min: 36.5 ??C (97.7 ??F) Max: 36.9 ??C (98.4 ??F) Pulse Min: 62 Max: 74 BP Min: 107/67 Max: 161/82 Resp Min: 16 Max: 18 SpO2 Min: 98 % Max: 100 % Most Recent : Vitals: 04/05/24 0832 BP: 161/82 Pulse: 74 Resp: 16 Temp: 36.7 ??C (98 ??F) SpO2: 100% Physical exam: General Appearance: Alert, cooperative, no distress Head: Normocephalic, without obvious abnormality, atraumatic Eyes: PERRL, conjunctiva clear, EOM's intact, no scleral icterus Nose: Nares normal, septum midline, mucosa normal, no drainage Throat: Lips, mucosa, and tongue normal; mucous membranes moist Neck: Enlarged tonsils. No erythema or exudates. Lungs: Clear to auscultation bilaterally, respirations unlabored Cardiovascular: Regular rate and rhythm, S1 and S2 normal, no murmur, rub or gallop Abdomen: Soft, non-tender, no masses, no organomegaly, non-distended Extremities: Extremities normal, atraumatic, no cyanosis or edema, no clubbing Skin: no rashes, lesions or bruising Neurologic: CNII-XII intact. Psychosocial: Normal affect and mood Lab/Radiology/Diagnostic Review: Laboratory review: reviewed the laboratory results Imaging review: I have reviewed the results ASSESSMENT/PLAN: Nausea and vomiting. GI following, discussed with team. Unclear etiology. EGD normal, right upper quadrant ultrasound showing hepatic steatosis, Lipase, hCG, TSH, cortisol, COVID, brain MRI without etiology. Ongoing symptoms despite Zofran, Compazine, benzodiazepine, olanzapine, Benadryl. Her symptoms started 2 weeks after returning from [place] and recently starting a new job. Her travel companions were not sick. She denies any new/unusual foods or drinking well/stream water. Follow-up C diff.Check CMV/EBV. Psychiatry does not think anxiety/depression is playing a role. Message left with GI. Anion gap metabolic acidosis, question starvation ketosis. Change IV fluids to Sodium bicarbonate with D5. Check lactate and beta hydroxybutyrate Hypophosphatemia, replace Transaminitis. 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 She vomited prior to my arrival, emesis is green in color, no blood. She is not having any pain in her abdomen. She states last night she did not sleep as well as the night prior and has some issues with vomiting. She is not having any diarrhea. EGD, ultrasound and KUB all largely unremarkable. CT without obstruction MRI brain with no acute findings to explain symptoms ASSESSMENT/PLAN: 1. Intractable nausea and vomiting - started about 03/27. No abdominal pain. Chest pains persist, atrest, related to frequent emesis. Occasional NSAID use, reportedly rare cannabis use. Unclear etiology to ongoing symptoms. Vomiting continues, CT with retained air, fluid in stomach ? Post viral gastroparesis Plan: Supportive care, continue scheduled Zofran, prn Ativan and prn Compazine. CLD as tolerated. Allergy to Reglan noted, begin Erythromycin. Discussed ongoing issues, no nutrition in over a week, unlikely to tolerate a dobhoff Reviewed CT findings, no acute changes, ascending colon with mild wall thickening and prominence ofsubmucosal low density without adjacent inflammation, no obstruction, colonoscopy recommended outptin light of family hx when she is able to tolerate a prep Case discussed with Dr. Saba, will begin Erythromycin Vitals: 04/03/24 1137 04/03/24 2041 04/04/24 0425 04/04/24 1002 BP: 136/68 145/77 140/79 152/88 BP Location: Right arm Left arm Right arm Patient Position: Lying Lying Pulse: 78 68 65 62 Resp: 18 18 18 Temp: 36.8 ??C (98.2 ??F) 37 ??C (98.6 ??F) 36.9 ??C (98.5 ??F) TempSrc: Oral Oral Oral SpO2: 99% 100% 100% Weight: Height: Physical Exam Vitals reviewed. Constitutional: General: She is not in acute distress. HENT: Head: Normocephalic. Eyes: Extraocular Movements: Extraocular movements intact. Cardiovascular: Rate and Rhythm: Normal rate. Pulmonary: Effort: Pulmonary effort is normal. Abdominal: General: Abdomen is flat. Bowel sounds are normal. There is no distension. Palpations: Abdomen is soft. Tenderness: There is no abdominal tenderness. There is no guarding or rebound. Skin: General: Skin is warm and dry. Neurological: Mental Status: She is alert. Psychiatric: Mood and Affect: Mood normal. Lab/Radiology/Diagnostic Review: Recent Labs Lab Units 04/01/24 0709 03/31/24 0656 03/30/24 1540 WBC K/cumm 6.3 9.7 12.7* HEMOGLOBIN g/dL 12.5 12.2 14.7 HEMATOCRIT % 38.2 35.6 43.4 PLATELETS K/cumm 334 339 462* Recent Labs Lab Units 04/04/24 0713 04/03/24 1119 04/01/24 0709 03/30/24200703/30/24 1540 03/28/242016 SODIUM mmol/L 135 136 137 < > 138 140 POTASSIUM PLASMA mmol/L 4.5 4.0 4.0 < > 3.2* 3.6 BUN SERUM mg/dL 10 11 6 < > 10 13 CREATININE mg/dL 0.74 0.81 0.75 < > 0.82 0.88 CALCIUM mg/dL 9.8 9.5 8.9 < > 9.5 9.8 ALBUMIN g/dL -- -- 3.6 -- 4.7 4.5 ALK PHOS Units/L -- -- 76 -- 98 86 ALT Units/L -- -- 30 -- 39 32 AST Units/L -- -- 25 -- 32 30 BILIRUBIN TOTAL mg/dL -- -- 0.4 -- 0.4 0.6 < > = values in this interval not displayed. CARLOS Brandon Cosigned by Bruno Cobb MD at 2024 1:49 PM CDT * Nicholas Saba, DO - 2024 9:20 AM CDT Daily Progress SUBJECTIVE Chief complaint of vomiting INTERVAL HISTORY: Still vomiting. Seems to improve fall she is sleeping/at night although she did have some emesis last night. Denies chest pain, sob. Today is her birthday OBJECTIVE Vitals: 24hr Min/Max: Temp Min: 36.8 ??C (98.2 ??F) Max: 37 ??C (98.6 ??F) Pulse Min: 65 Max: 78 BP Min: 136/68 Max: 145/77 Resp Min: 18 Max: 18 SpO2 Min: 99 % Max: 100 % Most Recent : Vitals: 04/04/24 0425 BP: 140/79 Pulse: 65 Resp: 18 Temp: 36.9 ??C (98.5 ??F) SpO2: 100% Physical exam: General Appearance: Alert, cooperative, no distress Head: Normocephalic, without obvious abnormality, atraumatic Eyes: PERRL, conjunctiva clear, EOM's intact, no scleral icterus Nose: Nares normal, septum midline, mucosa normal, no drainage Throat: Lips, mucosa, and tongue normal; mucous membranes moist Neck: Symmetrical, trachea midline, no JVD Lungs: Clear to auscultation bilaterally, respirations unlabored Cardiovascular: Regular rate and rhythm, S1 and S2 normal, no murmur, rub or gallop Abdomen: Soft, non-tender, no masses, no organomegaly, non-distended Extremities: Extremities normal, atraumatic, no cyanosis or edema, no clubbing Skin: no rashes, lesions or bruising Neurologic: CNII-XII intact. Psychosocial: Normal affect and mood Lab/Radiology/Diagnostic Review: Laboratory review: reviewed the laboratory results Imaging review: I have reviewed the results ASSESSMENT/PLAN: Nausea and vomiting. GI following, discussed with team. Unclear etiology. EGD normal, right upper quadrant ultrasound showing hepatic steatosis, Lipase, TSH, cortisol, COVID, brain MRI without etiology. Ongoing symptoms despite Zofran, Compazine, benzodiazepine, olanzapine, Benadryl. Her symptoms started 2 weeks after returning from [place] and recently starting a new job. Her travel companions were not sick. She denies any new/unusual foods or drinking well/stream water. Follow-up C diff. Consider CMV/EBV. 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 She is able to go all night without vomiting but then as soon as she wakes she begins with N/V again. She is not having any painin her abdomen. She has pain in her chest due to frequent vomiting. CT chest was negative for PE. EGD, ultrasound and KUB all largely unremarkable. MRI brain with no acute findings to explain symptoms ASSESSMENT/PLAN: 1. Intractable nausea and vomiting - started about 03/27. No abdominal pain. Chest pains persist, atrest, related to frequent emesis. Occasional NSAID use, reportedly rare cannabis use. Unclear etiology to ongoing symptoms. EGD, KUB and RUQ ultrasound and MRI brain largely unremarkable. Vomiting continues. Plan: Supportive care, continue scheduled Zofran, prn Ativan and prn Compazine. CLD as tolerated. Due to persistent issues obtain CT a/p. Consider Tigan pending results. Allergy to Reglan noted 2. Family history of Cavanaugh syndrome - Recommend outpatient consideration of colonoscopy. Vitals: 04/02/24 1517 04/02/24 2022 04/03/24 0431 04/03/24 0845 BP: 145/87 101/66 103/77 102/84 BP Location: Right arm Right arm Right arm Patient Position: Lying;HOB 30 degrees Sitting Pulse: 85 75 60 93 Resp: 18 18 18 Temp: 36.8 ??C (98.3 ??F) 36.7 ??C (98.1 ??F) 36.6 ??C (97.8 ??F) TempSrc: Oral Oral Oral SpO2: 99% 99% 100% Weight: Height: Physical Exam Vitals reviewed. Constitutional: General: She is not in acute distress. HENT: Head: Normocephalic. Eyes: Extraocular Movements: Extraocular movements intact. Cardiovascular: Rate and Rhythm: Normal rate. Pulmonary: Effort: Pulmonary effort is normal. Abdominal: General: Abdomen is flat. Bowel sounds are normal. There is no distension. Palpations: Abdomen is soft. Tenderness: There is no abdominal tenderness. There is no guarding or rebound. Skin: General: Skin is warm and dry. Neurological: Mental Status: She is alert. Psychiatric: Mood and Affect: Mood normal. Lab/Radiology/Diagnostic Review: Recent Labs Lab Units 04/01/24 0709 03/31/24 0656 03/30/24 1540 WBC K/cumm 6.3 9.7 12.7* HEMOGLOBIN g/dL 12.5 12.2 14.7 HEMATOCRIT % 38.2 35.6 43.4 PLATELETS K/cumm 334 339 462* Recent Labs Lab Units 04/01/24 0709 03/31/24 0656 03/30/24200703/30/24 1540 03/28/242016 SODIUM mmol/L 137 137 141 138 140 POTASSIUM PLASMA mmol/L 4.0 3.1* 3.8 3.2* 3.6 BUN SERUM mg/dL 6 7 8 10 13 CREATININE mg/dL 0.75 0.76 0.73 0.82 0.88 CALCIUM mg/dL 8.9 8.5 8.9 9.5 9.8 ALBUMIN g/dL 3.6 -- -- 4.7 4.5 ALK PHOS Units/L 76 -- -- 98 86 ALT Units/L 30 -- -- 39 32 AST Units/L 25 -- -- 32 30 BILIRUBIN TOTAL mg/dL 0.4 -- -- 0.4 0.6 CARLOS Brandon Cosigned by Bruno Cobb MD at 04/03/2024 12:22 PM CDT * Nicholas Saba, DO - 04/03/2024 9:27 AM CDT Daily Progress SUBJECTIVE Chief complaint of vomiting INTERVAL HISTORY: Not seen examined. Gone for CT scan. Discussed with nurse. Ongoing vomiting. OBJECTIVE Vitals: 24hr Min/Max: Temp Min: 36.6 ??C (97.8 ??F) Max: 36.8 ??C (98.3 ??F) Pulse Min: 60 Max: 93 BP Min: 101/66 Max: 154/86 Resp Min: 18 Max: 18 SpO2 Min: 99 % Max: 100 % Most Recent : Vitals: 04/03/24 0845 BP: 102/84 Pulse: 93 Resp: 18 Temp: 36.6 ??C (97.8 ??F) SpO2: 100% Physical exam: General Appearance: Head: Eyes: Nose: Throat: Neck: Lungs: Cardiovascular: Abdomen: Extremities: Skin: Neurologic: Psychosocial: Lab/Radiology/Diagnostic Review: Laboratory review: reviewed the laboratory results Imaging review: I have reviewed the results ASSESSMENT/PLAN: Nausea and vomiting. GI following, discussed with team. EGD normal, right upper quadrant ultrasoundshowing hepatic steatosis. Lipase, TSH, cortisol, COVID without etiology. Follow-up brain MRI. Continue scopolamine patch. Her symptoms started 2 weeks after returning from [place]. Her travel companions were not sick. She denies any new/unusual foods or drinking well/stream water. Start p.r.n. olanzapine. Benadryl IV X 1 now. Check C diff Hypotension, decrease verapamil Marijuana use, reportedly infrequent GERD Anxiety depression History of Cavanaugh syndrome Hypokalemia, resolved Leukocytosis, resolved Thrombocytosis, resolved 5 mm right lower lobe nodule, she was notified of this finding Dvt ppx Lovenox * Zacarias Nj PA - 04/02/2024 11:04 AM CDT Gastroenterology Progress GI Problems: Vomiting Interval History: Patient seen: retching clear liquid into emesis basin in her bed. She states thishappened yesterday evening then again this morning after drinking water. A shower did not help. Ativan and Zofran help some. She had a headache yesterday but only after Zofran, which has happened before. Otherwise, no headache recently. Some chest pain again, still no abdominal pain. She notes after returning from [place] recently she had a day of feeling fatigued and ill, which resolved with a day of rest. No ill contacts. EGD, ultrasound and KUB all largely unremarkable. We discussed fatty liver on ultrasound. ASSESSMENT/PLAN: 1. Intractable nausea and vomiting - started about 03/27. No abdominal pain. Initially had chest pain which has resolved. Occasional NSAID use, reportedly rare cannabis use. Ddx includes viral or idiopathic gastroparesis, cannabis hyperemesis though cannabis use is reportedly low (but +UDS). Reportsno prior episodes to support a diagnosis of CVS. EGD, KUB and RUQ ultrasound largely unremarkable. Vomiting continues. Plan: Supportive care, continue scheduled Zofran, prn Ativan and prn Compazine. Continue CLD, advance as tolerated. Do not advance yet given vomiting. 2. Family history of Cavanaugh syndrome - Recommend outpatient consideration of colonoscopy. Vitals: 04/01/24 1545 04/01/24 1634 04/01/24201404/02/24 0438 BP: 146/84 100/68 96/60 BP Location: Right arm Right arm Patient Position: Lying;HOB 30 degrees Pulse: 62 66 75 76 Resp: 14 15 16 16 Temp: 36.3 ??C (97.3 ??F) 36.7 ??C (98.1 ??F) 36.6 ??C (97.8 ??F) TempSrc: Oral Oral Oral SpO2: 100% 100% 100% 97% Weight: Height: Physical Exam Vitals reviewed. Constitutional: General: She is not in acute distress. Comments: Retching clear fluid into basin HENT: Head: Normocephalic. Eyes: Extraocular Movements: Extraocular movements intact. Cardiovascular: Rate and Rhythm: Normal rate. Pulmonary: Effort: Pulmonary effort is normal. Abdominal: General: Abdomen is flat. Bowel sounds are normal. There is no distension. Palpations: Abdomen is soft. Tenderness: There is no abdominal tenderness. There is no guarding or rebound. Skin: General: Skin is warm and dry. Neurological: Mental Status: She is alert. Psychiatric: Mood and Affect: Mood normal. Lab/Radiology/Diagnostic Review: Recent Labs Lab Units 04/01/24 0709 03/31/24 0656 03/30/24 1540 WBC K/cumm 6.3 9.7 12.7* HEMOGLOBIN g/dL 12.5 12.2 14.7 HEMATOCRIT % 38.2 35.6 43.4 PLATELETS K/cumm 334 339 462* Recent Labs Lab Units 04/01/24 0709 03/31/24 0656 03/30/24200703/30/24 1540 03/28/242016 SODIUM mmol/L 137 137 141 138 140 POTASSIUM PLASMA mmol/L 4.0 3.1* 3.8 3.2* 3.6 BUN SERUM mg/dL 6 7 8 10 13 CREATININE mg/dL 0.75 0.76 0.73 0.82 0.88 CALCIUM mg/dL 8.9 8.5 8.9 9.5 9.8 ALBUMIN g/dL 3.6 -- -- 4.7 4.5 ALK PHOS Units/L 76 -- -- 98 86 ALT Units/L 30 -- -- 39 32 AST Units/L 25 -- -- 32 30 BILIRUBIN TOTAL mg/dL 0.4 -- -- 0.4 0.6 CARLOS Charles Cosigned by Bruno Cobb MD at 04/02/2024 11:43 AM CDT * Nicholas Saba, DO - 04/02/2024 9:34 AM CDT Daily Progress SUBJECTIVE Chief complaint of Vomiting INTERVAL HISTORY: Still vomiting, not tolerating clear liquids. Denies chest pain, sob OBJECTIVE Vitals: 24hr Min/Max: Temp Min: 36.3 ??C (97.3 ??F) Max: 36.7 ??C (98.1 ??F) Pulse Min: 57 Max: 102 BP Min: 67/48 Max: 153/92 Resp Min: 8 Max: 24 SpO2 Min: 93 % Max: 100 % Most Recent : Vitals: 04/02/24 0438 BP: 96/60 Pulse: 76 Resp: 16 Temp: 36.6 ??C (97.8 ??F) SpO2: 97% Physical exam: General Appearance: Alert, cooperative, no distress Head: Normocephalic, without obvious abnormality, atraumatic Eyes: PERRL, conjunctiva clear, EOM's intact, no scleral icterus Nose: Nares normal, septum midline, mucosa normal, no drainage Throat: Lips, mucosa, and tongue normal; mucous membranes moist Neck: Symmetrical, trachea midline, no JVD Lungs: Clear to auscultation bilaterally, respirations unlabored Cardiovascular: Regular rate and rhythm, S1 and S2 normal, no murmur, rub or gallop Abdomen: Soft, non-tender, no masses, no organomegaly, non-distended Extremities: Extremities normal, atraumatic, no cyanosis or edema, no clubbing Skin: no rashes, lesions or bruising Neurologic: CNII-XII intact. Psychosocial: Normal affect and mood Lab/Radiology/Diagnostic Review: Laboratory review: reviewed the laboratory results Imaging review: I have reviewed the results ASSESSMENT/PLAN: Nausea and vomiting. GI following, discussed with team. EGD normal, right upper quadrant ultrasoundshowing hepatic steatosis. Lipase normal. Check TSH and cortisol. Check brain MRI. Start scopolamine patch. Her symptoms started 2 weeks after returning from [place]. Her travel companions anoxic. She denies any new/unusual foods or drinking well/stream water. Check COVID. Hypotension, decrease verapamil Marijuana use, reportedly infrequent GERD Anxiety depression History of Cavanaugh syndrome Hypokalemia, resolved Leukocytosis, resolved Thrombocytosis, resolved 5 mm right lower lobe nodule, she was notified of this finding Dvt ppx Lovenox These fluid and electrolyte abnormalities are being treated, evaluated or monitored: As above Malnutrition Screening No data recorded * Jonathan Scruggs MD - 04/01/2024 3:25 PM CDT General Medicine Daily Progress Background: Patient admitted on 03/30/2024 with chief complaint of chest pain in context of 5 days of acute onset vomiting. No prior gi history Today: Pain improving. Egd normal. Still with some nausea Impression: Principal Problem: Intractable nausea and vomiting Active Problems: Intractable vomiting Hypokalemia History of cavanaugh syndrome Today's Plan: Vomiting ongoing x 5 days - advance diet. Ruq us - recs of gi appreciated, we spoke. Possible cannabis hyperemesis in which case transcyclic antidepressants could be considered outpatient (noted abilify so defer to pcp) For abd pain - limit narcs as may worsen nausea. I suspect her chest pain is esophagitis from vomiting. For depression and anxiety - abilify to continue For history of psvt - on verapamil. Estimated Day of Discharge and Rosas milestones: 1-3 days Fluid and Electrolyte management: Recent Labs Lab Units 04/01/24 0709 03/31/24 0656 03/30/24 2307 03/30/24200703/30/24 1540 03/28/242016 SODIUM mmol/L 137 137 -- 141 138 140 POTASSIUM PLASMA mmol/L 4.0 3.1* -- 3.8 3.2* 3.6 CHLORIDE mmol/L 105 103 -- 105 96* 101 CO2 mmol/L 22 23 -- 23 21* 21* ANIONGAP mmol/L 10 11 -- 13 21* 18* GLUCOSE mg/dL 71 80 -- 96 103 121 POC GLUCOSE MONITOR mg/dL -- -- 86 -- -- -- BUN SERUM mg/dL 6 7 -- 8 10 13 CREATININE mg/dL 0.75 0.76 -- 0.73 0.82 0.88 CALCIUM mg/dL 8.9 8.5 -- 8.9 9.5 9.8 ALBUMIN g/dL 3.6 -- -- -- 4.7 4.5 ALK PHOS Units/L 76 -- -- -- 98 86 ALT Units/L 30 -- -- -- 39 32 AST Units/L 25 -- -- -- 32 30 BILIRUBIN TOTAL mg/dL 0.4 -- -- -- 0.4 0.6 Additional Data Reviewed: Recent Labs Lab Units 04/01/24 0709 03/31/24 0656 03/30/24 1540 WBC K/cumm 6.3 9.7 12.7* HEMOGLOBIN g/dL 12.5 12.2 14.7 HEMATOCRIT % 38.2 35.6 43.4 PLATELETS K/cumm 334 339 462* Recent Labs Lab Units 03/30/24 1820 COLOR U Straw CLARITY U Clear SPEC GRAV U 1.013 PH, URINE 6.5 PROTEIN UR QL Negative GLUCOSE URQL Negative KETONES UR 3+* BLOOD UR 1+* NITRITE UR Negative LEUKOCYTE ESTERASE UR Negative Subjective/Objective Objective Vitals: 24hr Min/Max: Temp Min: 36.4 ??C (97.5 ??F) Max: 36.6 ??C (97.8 ??F) Pulse Min: 57 Max: 92 BP Min: 97/59 Max: 153/92 Resp Min: 18 Max: 18 SpO2 Min: 100 % Max: 100 % Most Recent : Vitals: 04/01/24 1417 BP: 153/92 Pulse: 65 Resp: 18 Temp: 36.5 ??C (97.7 ??F) SpO2: 100% I/O last 2 completed shifts: In: 1247 [I.V.:1247] Out: - I/O this shift: In: 200 [I.V.:200] Out: 0 Physical Exam: Improved, benign abd Jonathan Scruggs MD, [facility], [facility] * Donna Latia, RD - 04/01/2024 3:01 PM CDT NUTRITION ASSESSMENT Nutrition Status: Malnutrition work-up pending. REASON FOR ASSESSMENT: Screened at Nutrition Risk - At Risk MST Score and NPO/Clear Liquid Diet Status Encounter Date: 04/01/24 3:18 PM Admission Date: 03/30/2024 LOS: 1 days HPI: Patient is a 38 y.o. female with history of anxiety, depression, Cavanaugh syndrome, GERD, presenting for intractable nausea and vomiting. Objective Past Medical History: Diagnosis Date Anxiety Depression GERD (gastroesophageal reflux disease) Vaginal vestibulitis Past Surgical History: Procedure Laterality Date SECTION Social History Tobacco Use Smoking status: Never Passive exposure: Never Smokeless tobacco: Never Substance and Sexual Activity Drug use: None Sexual activity: Yes Partners: Male control/protection: OCP Alcohol Use: Not on file MEDICATION/LAB REVIEW: Scheduled Meds: [Transfer Hold] acetaminophen, 1,000 mg, oral, TID [Transfer Hold] ARIPiprazole, 4 mg, oral, Daily [Held by Provider] DULoxetine DR, 60 mg, oral, Daily [Held by Provider] enoxaparin, 40 mg, subcutaneous, Daily-2100 [Transfer Hold] famotidine, 20 mg, intravenous, Q12H ELLEN [Transfer Hold] ondansetron, 4 mg, intravenous, TID [Transfer Hold] verapamiL, 80 mg, oral, Daily Continuous Infusions: sodium chloride 0.45% with potassium chloride 20 mEq/L, 125 mL/hr, Last Rate:125 mL/hr (04/01/24 0715) sodium chloride 0.9%, 30 mL/hr, Last Rate: Stopped (04/01/24 1516) PRN Meds: [Transfer Hold] clonazePAM [Transfer Hold] LORazepam [Transfer Hold] morphine [Transfer Hold] prochlorperazine [Transfer Hold] ramelteon [Transfer Hold] traMADoL [Transfer Hold] traZODone Recent Labs Lab Units 04/01/24 0709 SODIUM mmol/L 137 POTASSIUM PLASMA mmol/L 4.0 CHLORIDE mmol/L 105 CO2 mmol/L 22 BUN SERUM mg/dL 6 CREATININE mg/dL 0.75 [id number] mL/min/1.73 m2 >90 CALCIUM mg/dL 8.9 ALBUMIN g/dL 3.6 Recent Labs Lab Units 04/01/24 0709 03/31/24 0656 03/30/24 2307 03/30/24200703/30/24 1540 03/28/24201603/28/24 0552 GLUCOSE mg/dL 71 80 -- 96 103 121 149 POC GLUCOSE MONITOR mg/dL -- -- 86 -- -- -- -- ALT Date Value Ref Range Status 04/01/2024 30 7 - 45 Units/L Final AST Date Value Ref Range Status 04/01/2024 25 10 - 45 Units/L Final Alk phos Date Value Ref Range Status 04/01/2024 76 40 - 130 Units/L Final Lipase Date Value Ref Range Status 03/31/2024 21 10 - 99 Units/L Final No results found for: HGBA1C , HDL , LDLCALC , CHOL , TRIG NURSING ASSESSMENT: Last BM Date: 04/01/24 Bowel Sounds (All Quadrants): Active Madhu Scale Score: 20 Vital Signs BP: 153/92 Temp: 36.5 ??C (97.7 ??F) Pulse: 65 Resp: 18 SpO2: 100 % Intake/Output Summary (Last 24 hours) at 04/01/2024 1518 Last data filed at 04/01/2024 1516 Gross per 24 hour Intake 200 ml Output 0 ml Net 200 ml Adult Malnutrition Scoring Tool (MST) What diet do you follow at home?: regular Have You Recently Lost Weight Without Trying?: Yes (Comment) How Much Weight Have You Lost?: 2 - 13 lb Have you been eating poorly because of a decreased appetite?: Yes Malnutrition Screening Tool (MST) Score: 2 Anthropometrics Weight: 63 kg (139 lb) Admission Weight : 63.1 kg Weight Change: 0.00 kg (0.00 lbs) IBW/kg (Calculated) : 47.6 kg Height: 154.9 cm (5' 0.98 ) Weight in (lb) to have BMI = 25: 132 BMI (Calculated): 26.3 Wt Readings from Last 10 Encounters: 03/30/24 63 kg (139 lb) 03/28/24 63 kg (139 lb) 03/28/24 63 kg (139 lb) 03/11/24 62.1 kg (137 lb) 11/27/23 64.1 kg (141 lb 6.4 oz) 11/08/23 64.4 kg (142 lb) 10/18/23 63.5 kg (140 lb) ESTIMATED NEEDS: Total Kcal/kg Estimated Needs : 1332.8 Kcal/k. Type of Weight Used for Estimated Kcals: [place] Total Protein Estimated Needs (gm): 57.12 Protein Needs Based on g/k.2 Type of Weight Used for Estimated Protein : [place] Dietary Orders (From admission, onward) Start Ordered 04/01/24 0001 NPO Diet Diet effective midnight 03/31/24 1443 Allergies: Reviewed, latex IMPRESSION: 04/01: Pt screened at nutrition risk, NPO status and MST of 2: wt loss and poor appetite. Pt reportsintense pain with PO intake and frequent n/v. She states she tried to drink cranberry juice, but wasn't able to keep it down. Pt reports last Monday was the last time she had any substantial amount of PO intake, she ate dinner with her parents. 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 Pt reports discussing her symptoms with coworkers who made her aware of the possibility of TPN. Informed pt that TPN is likely not indicated, but will monitor results of EGD. Discussed standard progression of diet advancement. Pt verbalizes understanding and comfortability. Pt reports UBW of 145 lbs. She states she was weighed at 134 lbs overnight, no documentation of said weight. Current weight charted as 139 lbs. Pt reports 139 lbs is a stated weight. Ordered weight check to determine if weight loss is present. NFPE completed. No physical findings of muscle wasting or fat loss noted. Malnutrition workup pending new weight. Pt currently NPO for EGD. Monitor findings, diet advancement, and new weight. FRANDYEN MALNUTRITION ASSESSMENT: Date of completion: 04/01/2024 NUTRITION FOCUSED PHYSICAL EXAM: Completed, no signs of wasting noted. Subcutaneous Fat Loss Orbital Region - Surrounding the Eye: Slightly bulged fat pads Cheek Region - Buccal Fat: Full, round filled-out cheeks Upper Arm Region - Triceps/Biceps: Ample fat tissue obvious between folds of skin Muscle Loss Confucianist Region - Temporalis Muscle: Can see/feel well-defined muscle Clavicle Bone Region - Pectoralis Major, Deltoid, Trapezius Muscles: Not visible in male, visible but not prominent in female Clavicle and Acromion Bone Region - Deltoid Muscle: Rounded, curves at arm/shoulder/neck Dorsal Hand - Interosseous Muscle: Muscle bulges, could be flat in some well nourished people Anterior Thigh and Patellar Region - Quadricep Muscle: Well-rounded, well-developed Posterior Calf Region - Gastrocnemius Muscle: Well-developed bulb of muscle NUTRITION DIAGNOSIS: Nutrition Diagnosis 1: Inadequate energy intake Related to: NPO status Evidenced by: Physical finding INTERVENTION(S): Summary: Initial assessment, NFPE, Orders weight check Discussed progression of diet advancement s/p EGD. Ordered new weight, as current weight is a stated weight. Monitor results of EGD and diet advancement. GOAL(S): Advance to oral intake as medically able, Patient/caregiver able to teach back understanding of role of diet in disease process prior to discharge MONITORING/EVALUATION: Diet advancement, I/O, Labs, Plan of care, Weight changes, Discharge plans aLtia Thompson RD, LD * Jonathan Scruggs MD - 03/31/2024 2:07 PM CDT General Medicine Daily Progress Background: Patient admitted on 03/30/2024 with chief complaint of chest pain in context of 5 days of acute onset vomiting. No prior gi history Today: Retching when I'm present. Looks ill. History reviewed Historian: Patient Impression: Principal Problem: Intractable nausea and vomiting Hypokalemia History of cavanaugh syndrome Today's Plan: Vomiting ongoing x 5 days - npo except clears and scheduled anti-emetics. May need ativan trial to break cycle. Slow diet advancement Outpatient cavanaugh followup - will review with gi. Noted gerd hx and pcp recs For abd pain - limit narcs as may worsen nausea. I suspect her chest pain is esophagitis from vomiting. For depression and anxiety - ability to continue For history of psvt - on verapamil. I reviewed pcp note Estimated Day of Discharge and Rosas milestones: 1-3 days Fluid and Electrolyte management: Recent Labs Lab Units 03/31/24 0656 03/30/24 2307 03/30/24200703/30/24 15403/28/24201603/28/24 0552 SODIUM mmol/L 137 -- 141 138 140 138 POTASSIUM PLASMA mmol/L 3.1* -- 3.8 3.2* 3.6 4.1 CHLORIDE mmol/L 103 -- 105 96* 101 98 CO2 mmol/L 23 -- 23 21* 21* 18* ANIONGAP mmol/L 11 -- 13 21* 18* 22* GLUCOSE mg/dL 80 -- 96 103 121 149 POC GLUCOSE MONITOR mg/dL -- 86 -- -- -- -- BUN SERUM mg/dL 7 -- 8 10 13 13 CREATININE mg/dL 0.76 -- 0.73 0.82 0.88 0.65 CALCIUM mg/dL 8.5 -- 8.9 9.5 9.8 10.2 ALBUMIN g/dL -- -- -- 4.7 4.5 4.9 ALK PHOS Units/L -- -- -- 98 86 98 ALT Units/L -- -- -- 39 32 35 AST Units/L -- -- -- 32 30 28 BILIRUBIN TOTAL mg/dL -- -- -- 0.4 0.6 0.5 Additional Data Reviewed: Recent Labs Lab Units 03/31/24 0656 03/30/24 1540 03/28/242016 WBC K/cumm 9.7 12.7* 14.9* HEMOGLOBIN g/dL 12.2 14.7 13.6 HEMATOCRIT % 35.6 43.4 41.6 PLATELETS K/cumm 339 462* 422* Recent Labs Lab Units 03/30/24 1820 COLOR U Straw CLARITY U Clear SPEC GRAV U 1.013 PH, URINE 6.5 PROTEIN UR QL Negative GLUCOSE URQL Negative KETONES UR 3+* BLOOD UR 1+* NITRITE UR Negative LEUKOCYTE ESTERASE UR Negative Subjective/Objective Objective Vitals: 24hr Min/Max: Temp Min: 36.5 ??C (97.7 ??F) Max: 37.4 ??C (99.3 ??F) Pulse Min: 52 Max: 79 BP Min: 97/58 Max: 166/83 Resp Min: 16 Max: 18 SpO2 Min: 96 % Max: 100 % Most Recent : Vitals: 03/31/24 1253 BP: 165/78 Pulse: 56 Resp: 18 Temp: 36.9 ??C (98.5 ??F) SpO2: 96% I/O last 2 completed shifts: In: 1999 [IV Piggyback:1999] Out: - I/O this shift: In: 1247 [I.V.:1247] Out: - Physical Exam: Pt in no acute distress, alert and oriented x 4, ill appearing Eyes: Pupils are equal, sclera non icteric Lungs: Clear to auscultation bilateral Heart: Regular rate and rhythm without murmur Abd: Audible bowel sounds, Non Tender, Soft, Non distended Skin: No rash or edema Neuro: No focal motor sensory deficits Jonathan Scruggs MD, [facility], [facility] documented in this encounter H&P Notes * Sravan Marsh, - 03/30/2024 9:47 PM CDT [facility] Hospitalist Service History and Physical Encounter date: 03/30/24 PCP: Maurice Duff Jr., MD Chief Complaint: Chief Complaint Patient presents with Chest Pain HPI: has a past medical history of Anxiety, Depression, GERD (gastroesophageal reflux disease), and Vaginal vestibulitis. 38-year-old female with history of anxiety/depression, GERD, marijuana usage presenting for intractable nausea and vomiting. Symptoms have been ongoing for the last 4 days and has had recent ER visits with negative workup. Patient presents today again for recurrent symptoms. She reports that she isnot able to keep anything down including food and liquids. She denies fevers, shortness for breath or diarrhea. She is experiencing nausea and vomiting with associated chest pain. Patient presents here hemodynamically stable. A number of EKGs done while she has been experiencing chest pain has showed no acute ischemic changes. Troponins today and from previous visit on the has been within normal limits x4. Laboratory findings largely unremarkable. UDS positive for cannabinoids. Patient hastrialed a number of medications including GI cocktail, IV Benadryl, droperidol, Toradol, ppi without any improvement of her symptoms. She failed her p.o. challenge. Admitted for symptom control Past Medical History: Diagnosis Date Anxiety Depression GERD (gastroesophageal reflux disease) Vaginal vestibulitis Past Surgical History: Procedure Laterality Date SECTION Social History Tobacco Use Smoking status: Never Passive exposure: Never Smokeless tobacco: Never Substance and Sexual Activity Drug use: Not on file Sexual activity: Yes Partners: Male control/protection: OCP Alcohol Use: Not on file Family History Family History Problem Relation Age of Onset Breast cancer Mother Hypertension Mother Hypothyroidism Mother Hypertension Father Allergies Allergen Reactions Metoclopramide Dystonia, Unknown, Stomach upset and Palpitations Latex Hives and Itching Red and swollen Metoclopramide Hcl Unknown HOME MEDICATIONS : ARIPiprazole (ABILIFY) [address] (CYMBALTA) 60 mg capsule clonazePAM (KlonoPIN) 0.5 mg tablet famotidine (PEPCID) 40 mg tablet HYDROcodone-acetaminophen (NORCO) 5-325 mg per tablet ondansetron ODT (ZOFRAN-ODT) 4 mg disintegrating tablet pantoprazole DR (PROTONIX) 40 mg EC tablet Simpesse 0.15 mg-30 mcg (84)/10 mcg (7) tablets,dose pack,3 month traZODone (DESYREL) 50 mg tablet verapamiL (CALAN) 40 mg tablet clonazePAM (KlonoPIN) 0.5 mg tablet ROS: Pt denies significant weight loss, fever/ chills, vision/ auditory changes. Denies SOB/ cough. Denies palpitations, chest pain, Denies diarrhea. Denies dysuria, urinary incontinence, urinary frequency. Denies myalgia/ joint pain. Denies rash. Denies headache, syncope Vitals: Vitals: 03/30/24 1845 03/30/24 2045 03/30/24 2100 03/30/24 2115 BP: 97/58 166/83 155/81 158/92 Pulse: 61 63 61 58 Resp: Temp: TempSrc: SpO2: 97% 99% 100% 98% Weight: Height: Body mass index is 26.26 kg/m??. Physical exam: GEN: NAD. PSYCH: AOx3. Normal memory, mood, and affect. HEENT: -Head: NC/AT; -Eyes: No discharge or redness; -Ears: External ears are normal. -Nose: Normal nares. -Mouth and throat: MMM. Normal gums, mucosa, palate,. Good dentition. CV: RRR, no m/r/g. LUNGS: CTAB, no w/r/c. ABD: Soft, NT/ND, NBS, no masses or organomegaly. : N/A SKIN: Warm, well perfused. No skin rashes or abnormal lesions. MSK: Normal gait. No deformities. EXT: No clubbing, cyanosis, or edema. NEURO: Ambulating with no limitations. No focal deficits. Recent Labs Recent Labs Lab Units 03/30/24 1540 03/28/24201603/28/24 0605 WBC K/cumm 12.7* 14.9* 10.9* HEMOGLOBIN g/dL 14.7 13.6 14.7 HEMATOCRIT % 43.4 41.6 44.4 PLATELETS K/cumm 462* 422* 315 Recent Labs Lab Units 03/30/24200703/30/24 1540 SODIUM mmol/L 141 138 POTASSIUM PLASMA mmol/L 3.8 3.2* CHLORIDE mmol/L 105 96* CO2 mmol/L 23 21* GLUCOSE mg/dL 96 103 BUN SERUM mg/dL 8 10 CREATININE mg/dL 0.73 0.82 CALCIUM mg/dL 8.9 9.5 ALBUMIN g/dL -- 4.7 ALK PHOS Units/L -- 98 ALT Units/L -- 39 AST Units/L -- 32 BILIRUBIN TOTAL mg/dL -- 0.4 No results found for: TROPONINT Radiology/Diagnostics: See HPI Assessment/Plan: Principal Problem: Intractable nausea and vomiting Intractable nausea and vomiting Possibly cannabinoid hyperemesis syndrome -clear liquid diet, IV fluids -antiemetics p.r.n. Anxiety/depression -continue home Abilify, clonazepam GERD-continue PPI Fluid and Electrolytes These fluid and electrolyte abnormalities are being treated, evaluated or monitored: Within normal limits, continue to trend Full code Expect 2 midnight admission Sravan Marsh DO documented in this encounter Procedure Notes * Fernando Clinton PA - 04/07/2024 2:28 PM CDTAssociated Order(s): General - Inpatient Post-Procedure Diagnose(s): On total parenteral nutrition General - Inpatient Date/Time: 04/07/2024 2:28 PM Performed by: Fernando Clinton PA Authorized by: Fernando Clinton PA [place] Protocol: RN Notified of Procedure: yes Informed consent: Risks, benefits, alternatives discussed and patient/access services representative/guardian agrees and accepts Patient's stated name/ matches armband: Yes and patient unable to verbalize - armband matched toname and within medical record Allergies confirmed: yes Consent form signed, dated, timed; matches correct patient, intended procedure and site: Yes and noconsent form due to emergent status Supplies, devices and special equipment are available: yes Site/side marked: yes Immediately prior to the procedure a time out was called: a verbal verification by the procedure participants confirmed correct patient identity, correct site/side marked and visible (if applicable);agreement on procedure to be done; and correct patient positioning Anesthesia (see MAR for exact dosage) Anesthesia method: Local infiltration Local anesthetic: Lidocaine 1% Hand hygiene performed: Yes PPE (including eye protection) in place as appropriate to the procedure: Yes Preparation: Patient was prepped using appropriate disinfectant and draped using sterile technique as needed Procedure details: Triple lumen PICC cut 35cm and placed in the LUE, one attempt. All ports aspirated and flushed Patient tolerance: Patient tolerated the procedure well with no immediate complications and patienttolerated the procedure well with no immediate complications Post Procedure Debrief: All guidewires, needles, sponges or other items are accounted for: yes Any special post procedure monitoring, testing or other considerations: yes (enter/request order) All specimens identified, labeled and matched to patient identification: n/a * Niko Gerber PA - 04/06/2024 2:57 PM CDT Procedures House PA Feeding Tube Placement Note: Nasoenteric (post-pyloric) feeding tube needed for hyperalimentation in setting of prolonged refractory N/V. PROCEDURE: The 10 Fr, 109 cm non-weighted soft feeding tube is advanced using a stiffening stylet to 105 cm at the nose without difficulty and is anchored with silk tape. Preliminary placement verification was done with sequential auscultation and palpation of intraluminal bubbles. There was not a bilious aspirate but no obvious signs of kinking or looping in the stomach. OUTCOME: Final confirmation of placement will be done radiographically and the tube is ready for use. TIME SPENT ON THIS PROCEDURE WAS EXCLUSIVE OF ANY ACCUMULATED CRITICAL CARE TIME BILLED ELSEWHERE. CARLOS Zuleta * Bruno Cobb MD - 04/01/2024 3:02 PM CDTAssociated Order(s): EGD ENDOSCOPY LAB Patient Name: Ángela Ibrahim Procedure Date: 04/01/2024 3:02 PM Admit Type: Inpatient Room: [facility] 2 Date of : 1985 Instrument Name: [id number] Gender: Female Note Status: Finalized Procedure: Upper GI endoscopy Indications: Epigastric abdominal pain, Vomiting Providers: Bruno Cobb M.D. Referring MD: Maurice Duff M.D. Medicines: Propofol per Anesthesia Complications: No immediate complications. Estimated Blood Loss: Estimated blood loss: none. Procedure: Pre-Anesthesia Assessment: - After reviewing the risks and benefits, the patient was deemed in satisfactory condition to undergo the procedure. The benefits, risks, and alternatives to the procedure and sedation were discussed and informed consent was obtained. The scope was passed under direct vision. The Endoscope was introduced through the mouth, and advanced to the second part of duodenum. The upper GI endoscopy was accomplished without difficulty. The patient tolerated the procedure well. Findings: The examined esophagus was normal. The entire examined stomach was normal. Biopsies were taken with a cold forceps for Helicobacter pylori testing. The examined duodenum was normal. Impression: - Normal esophagus. - Normal stomach. Biopsied. - Normal examined duodenum. Recommendation: - Await pathology results. - Clear liquid diet. - Obtain KUB and RUQ ultrasound Dr. Bruno Cobb Bruno Cobb M.D. 04/01/2024 3:20:45 PM This document was signed electronically. Number of Addenda: 0 Note Initiated On: 04/01/2024 3:02 PM Scope In: Scope Out: documented in this encounter Consult Notes * Kevon Emanuel MD - 2024 2:27 PM CDTAssociated Order(s): IP CONSULT TO PSYCHIATRY Patient Seen Today. Psychiatry Consultation Note will be dictated * Kevon Emanuel MD - 2024 12:00 AM CDT Images from the original note were not included. PSYCHIATRY CONSULTATION Date of Admission March Date of Psychiatry Consultation March ATTENDING PHYSICIAN Dr Nicholas Saba CONSULTING PHYSICIAN Dr Kevon Emanuel REASON FOR CONSULTATION Anxiety, depression, possibly nausea and vomiting worsening or caused by it. HISTORY OF PRESENT ILLNESS The patient is a 39-year-old white female with a past psychiatric history significant foranxiety, depression, Bipolar 1 disorder, cannabis use disorder and medical problems of acid reflux disease, vaginal vestibulitis, who was admitted here on 03/30/2024, here at [facility] for intractable nausea and vomiting. The patient apparently was having nausea, vomiting for the last 4 days, has had recent ER visits with negative workup. The patient again was presenting with intractable nausea and vomiting. The patient apparently has tried recently medications including GI cocktail, IV Benadryl, droperidol, Toradol, PPI without any improvement of her symptoms. The patient was admitted this time for symptom control. Psychiatric consultation was requested on the patient. I spoke with the patient today. The patient says that she actually enjoys her new job now working here. She did not like her old job. She also had a good visit with her family to [place] recently. She says she was not feeling too well last few days of her trip to [place] and then since she has beenback, she has been having this nausea and vomiting. She said she does not feel sad or depressed. She says she does not feel anxious. She says lately she has been having some trouble sleeping at nightand her appetite is decreased. She also has some trouble with decreased energy and trouble concentrating present. She denies having any active suicidal ideations present. No passive suicidal ideations are present. She denies hearing any voices. No visual hallucinations are present. No paranoid thoughts are present. She denies feeling hyper. She denies feeling irritable. She says she is currently on Abilify and has been on that for the last few years. She has been on Cymbalta for the last 8 years. She is currently on as needed clonazepam and trazodone at night. She has tried in the past Seroquel but it was ineffective and also Rexulti. ALLERGIES Allergies Allergen Reactions Metoclopramide Dystonia, Unknown, Stomach upset and Palpitations Latex Hives and Itching Red and swollen Metoclopramide Hcl Unknown PAST PSYCHIATRIC HISTORY The patient says that she sees a nurse practitioner for the last 8 years. She has been diagnosed inthe past with Bipolar 1 disorder. She has never been admitted to inpatient psychiatric hospital before. No previous suicide attempts present. No previous homicide attempts present. PAST MEDICAL HISTORY Past Medical History: Diagnosis Date Anxiety Depression GERD (gastroesophageal reflux disease) Vaginal vestibulitis PAST SURGICAL HISTORY Past Surgical History: Procedure Laterality Date SECTION SOCIAL HISTORY The patient is . She has 1 daughter. She has 2 bachelor's degrees. 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 SUBSTANCE ABUSE HISTORY The patient denies any smoking use. She denies any alcohol use other than drinking on rare social occasions. She says she does use marijuana, but it is maybe twice a month. ASSETS The patient agreeable for treatment now. FAMILY MEDICAL HISTORY Family History Problem Relation Age of Onset Breast cancer Mother Hypertension Mother Hypothyroidism Mother Hypertension Father FAMILY PSYCHIATRIC HISTORY Her mother has major depressive disorder and she is also on Cymbalta. LABORATORY FINDINGS Chem/LFT Lab History Latest Ref Rng & Units 03/31/2024 06:56 04/01/2024 07:09 04/03/2024 11:19 2024 07:13 Labs-Chem/LFT Sodium 135 - 145 mmol/L 137 137 136 135 Creatinine 0.60 - 1.10 mg/dL 0.76 0.75 0.81 0.74 Bilirubin, total 0.1 - 1.2 mg/dL 0.4 0.4 AST 10 - 45 Units/L 25 57 ALT 7 - 45 Units/L 30 58 Alk phos 40 - 130 Units/L 76 94 CrCl- Actual Body Weight (Cockcroft-Gault) 98.9 100.2 92.8 100.6 Hematology Lab History Latest Ref Rng & Units 03/28/2024 03/30/2024 15:40 03/31/2024 06:56 04/01/2024 07:09 Labs - Hematology WBC 3.8 - 9.9 K/cumm 14.9 12.7 9.7 6.3 Total Hb, POC 11.9 - 15.5 g/dL 13.6 14.7 12.2 12.5 Hct 35.6 - 45.5 % 41.6 43.4 35.6 38.2 Plt 150 - 400 K/cumm 422 462 339 334 Neutrophil abs 1.5 - 6.5 K/cumm 11.1 9.8 3.8 2.3 Lymphocytes, abs 0.8 - 3.3 K/cumm 2.6 2.1 4.8 3.1 Details More abnormal values are hidden. Newest values shown. Go to activity for more data. More values are hidden. Newest values shown. Go to activity for more data. MENTAL STATUS EXAMINATION The patient is a 39-year-old white female and she appears her stated age and she is at present calm and cooperative for interview. Psychomotor activity is normal. Speech is normal rate, normal tone, normal volume. On mood, the patient said I do not feel depressed or sad. I do not feel anxious. Affect is good range. Thought process is logical and goal directed. On thought content, the patient does not have any suicidal ideations present. No homicidal ideations are present. No paranoid thoughts are present. No delusions are present. On perception testing, no auditory hallucinations are present. No visual hallucinations are present. The patient is awake and alert and oriented to time, place, and person. Intelligence is average. Short-term memory is intact. Insight is good. Judgment is good. DIAGNOSIS and IMPRESSION Bipolar 1 disorder,most recent depressed episode Generalized anxiety disorder Cannabis use disorder. TREATMENT PLAN AND RECOMMENDATIONS The patient says that she has been on Abilify for the last few years and has never had any nausea, vomiting due to that. She has also been on duloxetine 60 mg for the last 8 years and has no nausea, vomiting due to that. Will continue with Abilify 4 mg orally once daily. Will restart Duloxetine but at a lower dosage of 30 mg orally once daily with evening meal. Continue with the PRN Clonazepam and Trazodone medications. At present it is not seem like depression and anxiety are causing the GI symptoms of nausea and vomiting. Will follow the patient while she is here in the hospital. Thank you very much for the consultation. Job ID/Internal Job ID: [id number] * Zacarias Nj PA - 04/01/2024 10:56 AM CDTAssociated Order(s): IP CONSULT TO GASTROENTEROLOGY Gastroenterology Consult Reason for consult: esophagitis Referring doctor: Jonathan Scruggs MD PCP: Maurice Duff Jr., MD ASSESSMENT/PLAN: 1. Intractable nausea and vomiting - started 5 days ago. No abdominal pain. Initially had chest pain which has resolved. Occasional NSAID use, reportedly rare cannabis use. Ddx includes GOO, PUD, biliary dyskinesia, less likely malignancy (though has fmhx Cavanaugh syndrome). Plan: EGD today. If negative consider RUQ ultrasound. Continue pantoprazole 40mg IV BID. 2. Family history of Cavanaugh syndrome - Recommend outpatient consideration of colonoscopy. HPI: Patient is a 38 y.o. female with a history of depression and GERD presenting with intractable nausea and vomiting for 5 days. She initially had chest pain but this has resolved. The patient denies having abdominal pain at any point. She has had no change in her bowels. Denies melena or hematochezia. Denies history of similar. Afebrile. She reports a drenching night sweat x 1 a few days ago. No new medications or supplements. No change in existing medication doses. No travel other than to [place]. No headache, no ill contacts. She takes 600mg ibuprofen 1-2 times weekly. She uses cannabis once every couple months. UDS positive for cannabis. No cigarette smoking. Rare ETOH. No illicit drug use. Significant fmhx colon cancer,apparently including Cavanaugh syndrome. She is currently leaving a stressful job and about to start a new job at [employer]. 2013 EGD unremarkable. Also had 2013 colonoscopy. No abdominal imaging performed. Lipase, CBC and CMP all unremarkable. Past Medical History: Diagnosis Date Anxiety Depression GERD (gastroesophageal reflux disease) Vaginal vestibulitis Medications Prior to Admission Medication Sig Dispense Refill Last Dose ARIPiprazole (ABILIFY) 2 mg tablet Take 2 tablets (4 mg total) by mouth daily 03/30/[address] (CYMBALTA) 60 mg capsule Take 1 capsule (60 mg total) by mouth daily 03/30/2024 clonazePAM (KlonoPIN) 0.5 mg tablet Take 1 tablet (0.5 mg total) by mouth 3 (three) times a day as needed for anxiety famotidine (PEPCID) 40 mg tablet Take 1 tablet (40 mg total) by mouth nightly 90 tablet 1 HYDROcodone-acetaminophen (NORCO) 5-325 mg per tablet Take 1 tablet by mouth every 6 (six) hours asneeded for pain 10 tablet 0 ondansetron ODT (ZOFRAN-ODT) 4 mg disintegrating tablet Take 1 tablet (4 mg total) by mouth every 8(eight) hours as needed for nausea or vomiting [address] (PROTONIX) 40 mg EC tablet Take 1 tablet (40 mg total) by mouth daily 90 tablet 1 Simpesse 0.15 mg-30 mcg (84)/10 mcg (7) tablets,dose pack,3 month Take 1 tablet by mouth daily traZODone (DESYREL) 50 mg tablet Take 2 tablets (100 mg total) by mouth nightly as needed for sleep verapamiL (CALAN) 40 mg tablet Take 2 tablets (80 mg total) by mouth daily Allergies Allergen Reactions Metoclopramide Dystonia, Unknown, Stomach upset and Palpitations Latex Hives and Itching Red and swollen Metoclopramide Hcl Unknown Social History Tobacco Use Smoking status: Never Passive exposure: Never Smokeless tobacco: Never Substance and Sexual Activity Drug use: None Sexual activity: Yes Partners: Male control/protection: OCP Alcohol Use: Not on file Past Surgical History: Procedure Laterality Date SECTION Family History Problem Relation Age of Onset Breast cancer Mother Hypertension Mother Hypothyroidism Mother Hypertension Father Review of Systems Constitutional: Negative for chills, fatigue and fever. HENT: Negative for trouble swallowing. Respiratory: Negative for shortness of breath. Cardiovascular: Positive for chest pain. Gastrointestinal: Positive for nausea and vomiting. Negative for abdominal pain, blood in stool, constipation and diarrhea. Genitourinary: Negative for flank pain. Skin: Negative for rash. Neurological: Negative for weakness. Psychiatric/Behavioral: Negative for confusion. Most Recent : Vitals: 04/01/24 1025 BP: 121/83 Pulse: 57 Resp: Temp: SpO2: Physical Exam Vitals reviewed. Constitutional: General: She is not in acute distress. HENT: Head: Normocephalic. Eyes: Extraocular Movements: Extraocular movements intact. Cardiovascular: Rate and Rhythm: Normal rate. Pulmonary: Effort: Pulmonary effort is normal. Abdominal: General: Abdomen is flat. Bowel sounds are normal. There is no distension. Palpations: Abdomen is soft. Tenderness: There is no abdominal tenderness. There is no guarding or rebound. Skin: General: Skin is warm and dry. Neurological: Mental Status: She is alert. Psychiatric: Mood and Affect: Mood normal. Lab/Radiology/Diagnostic Review: Recent Labs Lab Units 04/01/24 0709 03/31/24 0656 03/30/24 1540 WBC K/cumm 6.3 9.7 12.7* HEMOGLOBIN g/dL 12.5 12.2 14.7 HEMATOCRIT % 38.2 35.6 43.4 PLATELETS K/cumm 334 339 462* Recent Labs Lab Units 04/01/24 0709 03/31/24 0656 03/30/24 2307 03/30/24200703/30/24 1540 03/28/242016 SODIUM mmol/L 137 137 -- 141 138 140 POTASSIUM PLASMA mmol/L 4.0 3.1* -- 3.8 3.2* 3.6 CHLORIDE mmol/L 105 103 -- 105 96* 101 CO2 mmol/L 22 23 -- 23 21* 21* ANIONGAP mmol/L 10 11 -- 13 21* 18* GLUCOSE mg/dL 71 80 -- 96 103 121 POC GLUCOSE MONITOR mg/dL -- -- 86 -- -- -- BUN SERUM mg/dL 6 7 -- 8 10 13 CREATININE mg/dL 0.75 0.76 -- 0.73 0.82 0.88 CALCIUM mg/dL 8.9 8.5 -- 8.9 9.5 9.8 ALBUMIN g/dL 3.6 -- -- -- 4.7 4.5 ALK PHOS Units/L 76 -- -- -- 98 86 ALT Units/L 30 -- -- -- 39 32 AST Units/L 25 -- -- -- 32 30 BILIRUBIN TOTAL mg/dL 0.4 -- -- -- 0.4 0.6 CARLOS Charles Cosigned by Bruno Cobb MD at 04/01/2024 11:19 AM CDT documented in this encounter Nursing Notes * Amber Martinez RN - 04/09/2024 2:39 PM CDT Patient discharged home. PICC line removed without complication. Discharge instructions and return precautions reviewed. documented in this encounter ED Notes * Noman Henley PA - 03/30/2024 4:55 PM CDT HPI Chief Complaint Patient presents with Chest Pain HPI 38-year-old female with history of anxiety, depression, GERD, paroxysmal SVT, hyperlipidemia, and bipolar disorder, presents to the emergency room with complaint of intermittent upper chest pain described as a pressure sensation, nausea, and vomiting. No fever, chills, shortness of breath, abdominal pain, constipation, or diarrhea. No vaginal bleeding or discharge. No urinary symptoms. Patient states symptoms began 2-3 days ago. 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 She was initially seen in the ER on 03/28. Workup was significant for mild metabolic acidosis. Cardiac testing was negative. She was given IV fluids, antiemetics, and analgesia with improvement of her symptoms. She was ultimately discharged to follow up with primary care. She returned later that day with continued symptoms. A repeat workup was unremarkable including a CT of her chest. She was discharged with cardiology follow-up yesterday, however, she was told that she needs to see a printmaker due to the fact that she has a history of SVT. She has not had any issues with palpitations. She does take verapamil regularly. Yesterday she was feeling fine, however, today around 11:00 a.m. in the morning her symptoms returned. She denies any excessive alcohol intake. She does use marijuana regularly. Patient History: Patient Active Problem List Diagnosis Date Noted Intractable nausea and vomiting 03/30/2024 Chest pain 03/29/2024 Gastroesophageal reflux disease without esophagitis 03/11/2024 Bipolar disorder, in partial remission, most recent episode mixed (CMS/HCC) ([facility]) 03/11/2024 PSVT (paroxysmal supraventricular tachycardia) ([facility]) 03/11/2024 Mixed hyperlipidemia 03/11/2024 Vaginal vestibulitis 03/11/2024 Past Medical History: Diagnosis Date Anxiety Depression GERD (gastroesophageal reflux disease) Vaginal vestibulitis Past Surgical History: Procedure Laterality Date SECTION Family History Problem Relation Age of Onset Breast cancer Mother Hypertension Mother Hypothyroidism Mother Hypertension Father Social History Tobacco Use Smoking status: Never Passive exposure: Never Smokeless tobacco: Never Vaping Use Vaping status: Never Used Substance and Sexual Activity Alcohol use: None Drug use: None Sexual activity: Yes Partners: Male control/protection: OCP Social History Social History Narrative Not on file Review of Systems Review of Systems Respiratory: Negative for shortness of breath. Cardiovascular: Positive for chest pain. Gastrointestinal: Positive for nausea and vomiting. Negative for abdominal pain and constipation. All other systems reviewed and are negative. Physical Exam ED Triage Vitals Temp Pulse Resp BP SpO2 03/30/24 1508 03/30/24 1508 03/30/24 1508 03/30/24 1508 03/30/24 1508 37.1 ??C (98.7 ??F) 62 16 151/96 100 % Temp src Heart Rate Source Patient Position BP Location FiO2 (%) 03/30/24 1508 03/30/24 2237 03/31/24 0434 03/30/242236 -- Oral Monitor Lying Right arm Height Height Method Weight Weight Method 03/30/24 1508 03/30/24 1508 03/30/24 1508 -- 1.549 m (5' 1 ) Stated 63 kg (139 lb) Physical Exam Vitals and nursing note reviewed. Constitutional: General: She is in acute distress. Appearance: She is well-developed. HENT: Head: Normocephalic and atraumatic. Right Ear: External ear normal. Left Ear: External ear normal. Nose: Nose normal. Eyes: Conjunctiva/sclera: Conjunctivae normal. Neck: Trachea: No tracheal deviation. Cardiovascular: Rate and Rhythm: Regular rhythm. Bradycardia present. Pulses: Normal pulses. Heart sounds: Normal heart sounds. Pulmonary: Effort: Pulmonary effort is normal. Breath sounds: Normal breath sounds. Abdominal: General: Abdomen is flat. Palpations: Abdomen is soft. Tenderness: There is no abdominal tenderness. There is no guarding or rebound. Negative signs include Mar's sign and McBurney's sign. Musculoskeletal: General: No deformity. Normal range of motion. Cervical back: Full passive range of motion without pain and normal range of motion. Right lower leg: No edema. Left lower leg: No edema. Skin: General: Skin is warm and dry. Neurological: General: No focal deficit present. Mental Status: She is alert and oriented to person, place, and time. GCS: GCS eye subscore is 4. GCS verbal subscore is 5. GCS motor subscore is 6. Cranial Nerves: Cranial nerves 2-12 are intact. Sensory: Sensation is intact. Motor: Motor function is intact. Psychiatric: Behavior: Behavior normal. Thought Content: Thought content normal. Judgment: Judgment normal. MDM Heart Score Medical Decision Making Differential diagnosis: Anxiety reaction, GERD, esophageal spasm, esophagitis, less likely ACS, PE,pneumonia, aortic dissection Impression/plan: 38-year-old female presents to the ER with persistent, intermittent anterior chestpain, nausea, and vomiting. On exam she is well- appearing. She does appear anxious. Her blood pressure is 154/89. She is not tachycardic or hypoxic. Her lungs are clear bilaterally. She has no chest wall tenderness. Her abdomen is soft and nontender. Will repeat EKG, labs, and chest x-ray. Will provide IV fluids, Toradol, Benadryl, and droperidol given her intractable vomiting. It is possible sheis dealing esophageal spasm versus GERD versus gastritis versus anxiety reaction. She has had negative workup x2. Amount and/or Complexity of Data Reviewed External Data Reviewed: labs, radiology, ECG and notes. Labs: ordered. Radiology: Decision-making details documented in ED Course. ECG/medicine tests: ordered and independent interpretation performed. Decision- making details documented in ED Course. Risk Prescription drug management. Decision regarding hospitalization. ED Course as of 03/31/24 0604 Time: 03/30 6431 Comment: Repeat labs are significant for white count of 12.7. This is improved from 2 days ago. H and H is normal. Potassium 3.2, chloride 96. Bicarb 21, anion gap is 21. BUN and creatinine is 10 and0.82. Chest x-ray shows no acute abnormality. Patient given droperidol, Zofran, ketorolac, Benadryl. Currently has IV fluids infusing. Will plan for repeat BNP and p.o. challenge. Anticipate discharge with close PCP and cardiology follow-up By: Noman Henley PA Time: 03/30 5582 Comment: Sign out from CARLOS Robles: 38-year-old female with history of anxiety, depression, GERD,hyperlipidemia, and SVT presents with chest pain. Apparently was here 2 days ago with upper chest, nausea, and vomiting. Treated with IV fluids and antiemetics and discharged home. Came back feeling worse. Had CT scan of her chest which was negative and troponins were negative. She was discharged with cardiology follow-up. She was told the Cardiology would not see her because of her history of SVT and was told that she had to see a printmaker. She has an appointment with them in April. She returned today due to onset of midsternal chest pressure around 11:00 a.m. this morning with associated nausea and vomiting. Does admit to marijuana use but has not used it in the past 2 weeks. Has a white blood cell count of 12.7. CMP shows metabolic acidosis question if this is from vomiting. Troponins were negative. Chest x-ray negative. Vital signs are stable. Treated with droperidol, Benadryl, and IV fluids. We will need repeat BMP and a p.o. challenge and likely GI follow up outpatient as well as her already scheduled cardiology follow-up. We will give her a dose of Protonix and a GI cocktail as well to see if these help her symptoms. By: Luma Payne NP Time: 03/30 2059 Comment: Repeat BMP improved. No longer acidotic. Patient complained of CP again, EKG repeated and shows sinus bradycardia, rate 57, no STEMI. Patient again with N/V. Will discuss OBS admit for symptom management. By: Luma Payne NP Time: 03/30 2105 Comment: I went in and evaluated the patient. After eating some crackers for a p.o. challenge she had additional vomiting. She has some vomit that is yellow in color in the bag next to the bed. She states that her chest is hurting again and is asking for something for pain. Will give an additional dose of Toradol. Considering that she can not tolerate p.o. we will admit her. I think this is less likely to be cardiac in nature and more likely GI in nature given her reassuring troponins and EKGs.She is in agreement with admission. By: Luma Payne NP Time: 03/30 2121 Comment: Discussed with Dr. Marsh, he accepts for admission, plan for antiemetics, hydration and pain control By: Luma Payne NP Final diagnoses: Chest pain, unspecified type Nausea and vomiting, unspecified vomiting type Noman Henley PA 03/31/24 0604 * Mary Valerio RN - 03/30/2024 3:07 PM CDT Pt presents to the ED due to mid chest pain, non radiating. Hx SVT. Pt has been vomiting as we4ll for 4 days documented in this encounter Miscellaneous Notes * Result Encounter Note - Zacarias Nj PA - 04/09/2024 2:59 PM CDT Will request follow up with our outpatient group to decide whether to repeat this test or consider colonoscopy depending on her symptoms. * Plan of Care - Hazel Stuart RN - 04/08/2024 5:08 AM CDT Goals: Clinical Goals for the Shift: Stable vs,labs. Controlled nausea. Maintain comfort and safety. [employer] Patient Centered Goal for Treatment: Return home. Summary: VSS on RA. D5 1/2NS@75ml/hr. Pt c/o heartburn- resolved after 1x GI cocktail. PRN compazine restarted at pt request. NPO for HIDA scan today. Await additional orders. Problem: Gastrointestinal Goal: Maintains adequate nutritional intake Outcome: Not Progressing Problem: Discharge Planning Goal: Understanding discharge needs will improve Outcome: Ongoing Problem: Gastrointestinal Goal: Minimal or absence of nausea and vomiting Outcome: Ongoing Problem: Metabolic/Fluid and Electrolytes Goal: Electrolytes maintained within normal limits Outcome: Ongoing Problem: Lack of Knowledge Goal: Ability to develop a pain control plan will improve Outcome: Progressing Problem: Medication Goal: Satisfaction with pain management medication regimen will improve Outcome: Progressing Problem: Sensory Goal: Ability to identify factors that increase pain levels will improve while working to decrease the patient's pain levels Outcome: Progressing Problem: Coping Goal: Ability to cope will improve Outcome: Progressing Problem: Health Behavior Goal: Identification of resources available to assist in meeting health care needs will improve Outcome: Progressing Problem: Gastrointestinal Goal: Maintains or returns to baseline bowel function Outcome: Progressing Goal: Will show no signs and symptoms of gastrointestinal bleeding Outcome: Progressing Problem: Isolation Lack of Knowledge Goal: Knowledge of risk factors and measures for prevention of condition will improve Outcome: Progressing Problem: Isolation Physical Regulation Goal: Isolation- Spread of further infection will be prevented Outcome: Progressing Goal: Isolation- Complications related to the disease process, condition, or treatment will be avoided or minimized. Outcome: Progressing Problem: Infection Goal: Absence of infection during hospitalization Outcome: Progressing * Plan of Care - Dannielle Amanda RN - 04/07/2024 4:45 PM CDT Problem: Infection Goal: Absence of infection during hospitalization 04/07/2024 1644 by Dannielle Amanda RN Outcome: Progressing 04/07/2024 1636 by Dannielle Amanda RN Outcome: Progressing Problem: Metabolic/Fluid and Electrolytes Goal: Electrolytes maintained within normal limits 04/07/2024 1644 by Dannielle Amanda RN Outcome: Ongoing 04/07/2024 1636 by Dannielle Amanda RN Outcome: Progressing Problem: Isolation Lack of Knowledge Goal: Knowledge of risk factors and measures for prevention of condition will improve Outcome: Progressing Problem: Isolation Physical Regulation Goal: Isolation- Spread of further infection will be prevented Outcome: Progressing Goal: Isolation- Complications related to the disease process, condition, or treatment will be avoided or minimized. Outcome: Progressing Problem: Isolation Physical Regulation Goal: Isolation- Spread of further infection will be prevented Outcome: Progressing Goal: Isolation- Complications related to the disease process, condition, or treatment will be avoided or minimized. Outcome: Progressing Goals: Clinical Goals for the Shift: Stable vs,labs. Controlled nausea. Increase PO intake as tolerated. Maintain comfort and safety. Summary: Nursing to Nursing Communication CHARLI: Expected Discharge Date Expected Discharge Date Apr 08, 2024 DC Transport barriers: No PT/OT orders: No CM anticipated level of care: Anticipated discharge level of care: Private residence Mobility Barriers (i.e patient refusal, surgical restrictions, safety concerns, etc.): Nausea, weakness Lines/Drains: PICC Triple Lumen 04/07/24 Left Upper arm (Active) Last BM: Last BM Date: 04/07/24 (per patient) Medical Barriers: IV medications and Other: Uncontrolled nausea Incomplete Orders/Imaging/Consults: Hida Scan Significant events over the last shift: Nausea appears uncontrolled, poor PO intake. Lost IV accessand unable to put one in after several attempts. PICC line inserted per PA. Treatment regimen continued. Zofran continued as scheduled with some relief. Instructed NPO after midnight, will have HIDA scan tomorrow, 04/08/24. * Plan of Care - Hazel Stuart RN - 04/07/2024 5:31 AM CDT Goals: Clinical Goals for the Shift: Stable vs,labs. Controlled nausea. Increase PO intake as tolerated. Maintain comfort and safety. Summary: VSS on RA. NaBicarb@75ml/hr. Pt was tolerating TF [place] 1.4cal@40ml but dislodged andpulled out dobhoff when vomiting after swallowing a pill. Pt stated it was due to the tube tickling the back of her throat. . R ac IV with signs of phlebitis. New IV placed and tried to run Erythromycin but pt c/o painful burning at site, pt refused additional doses. IV compazine and po clonazepamgiven x 1. Spoke with lab, stool for calprotectin will be picked up for send out to [place] on 04/08 and results take approximately 1-2 weeks. Await additional orders. Problem: Discharge Planning Goal: Understanding discharge needs will improve Outcome: Ongoing Problem: Gastrointestinal Goal: Minimal or absence of nausea and vomiting Outcome: Ongoing Goal: Maintains adequate nutritional intake Outcome: Ongoing Problem: Lack of Knowledge Goal: Ability to develop a pain control plan will improve Outcome: Progressing Problem: Medication Goal: Satisfaction with pain management medication regimen will improve Outcome: Progressing Problem: Sensory Goal: Ability to identify factors that increase pain levels will improve while working to decrease the patient's pain levels Outcome: Progressing Problem: Coping Goal: Ability to cope will improve Outcome: Progressing Problem: Health Behavior Goal: Identification of resources available to assist in meeting health care needs will improve Outcome: Progressing Problem: Gastrointestinal Goal: Maintains or returns to baseline bowel function Outcome: Progressing Goal: Will show no signs and symptoms of gastrointestinal bleeding Outcome: Progressing Problem: Isolation Lack of Knowledge Goal: Knowledge of risk factors and measures for prevention of condition will improve Outcome: Progressing Problem: Isolation Physical Regulation Goal: Isolation- Spread of further infection will be prevented Outcome: Progressing Goal: Isolation- Complications related to the disease process, condition, or treatment will be avoided or minimized. Outcome: Progressing Problem: Infection Goal: Absence of infection during hospitalization Outcome: Progressing Problem: Metabolic/Fluid and Electrolytes Goal: Electrolytes maintained within normal limits Outcome: Progressing * Plan of Care - Dannielle Amanda RN - 04/06/2024 5:22 PM CDT Problem: Discharge Planning Goal: Understanding discharge needs will improve Outcome: Progressing Problem: Lack of Knowledge Goal: Ability to develop a pain control plan will improve Outcome: Ongoing Problem: Medication Goal: Satisfaction with pain management medication regimen will improve Outcome: Ongoing Problem: Sensory Goal: Ability to identify factors that increase pain levels will improve while working to decrease the patient's pain levels Outcome: Ongoing Problem: Coping Goal: Ability to cope will improve Outcome: Ongoing Problem: Gastrointestinal Goal: Minimal or absence of nausea and vomiting Outcome: Ongoing Goal: Maintains or returns to baseline bowel function Outcome: Ongoing Goal: Maintains adequate nutritional intake Outcome: Ongoing Goal: Will show no signs and symptoms of gastrointestinal bleeding Outcome: Ongoing Problem: Infection Goal: Absence of infection during hospitalization Outcome: Ongoing Problem: Infection Goal: Absence of infection during hospitalization Outcome: Ongoing Problem: Metabolic/Fluid and Electrolytes Goal: Electrolytes maintained within normal limits Outcome: Ongoing Goals: Clinical Goals for the Shift: Stable vs,labs. Controlled nausea. Maintain comfort and safety. Summary: Nursing to Nursing Communication CHARLI: Expected Discharge Date Expected Discharge Date Apr 08, 2024 DC Transport barriers: No PT/OT orders: No CM anticipated level of care: Anticipated discharge level of care: Private residence Mobility Barriers (i.e patient refusal, surgical restrictions, safety concerns, etc.): Nausea, multiple IV tubings, Tube feeding Lines/Drains: Peripheral IV 04/04/24 20 G Right Antecubital (Active) Last BM: Last BM Date: 04/05/24 Medical Barriers: IV medications and Other: requiring IV abx and scheduled IV nausea medicine Incomplete Orders/Imaging/Consults: Nutritional support Significant events over the last shift: Remains with poor appetite and nausea, receiving scheduled Zofran. Dobhoff placed by PA and Tube feeding commenced. Will monitor tolerance. * Plan of Care - Hazel Stuart RN - 04/06/2024 6:19 AM CDT Goals: Clinical Goals for the Shift: Stable vs,labs. Controlled nausea. Maintain comfort and safety. Summary: VSS on RA. Pt denies nausea or vomiting overnight. NaBicarb@75ml/hr. IV erythromycin q6h. IV ativan given x 1. Await additional orders. Problem: Gastrointestinal Goal: Maintains adequate nutritional intake Outcome: Ongoing Problem: Metabolic/Fluid and Electrolytes Goal: Electrolytes maintained within normal limits Outcome: Ongoing Problem: Discharge Planning Goal: Understanding discharge needs will improve Outcome: Progressing Problem: Lack of Knowledge Goal: Ability to develop a pain control plan will improve Outcome: Progressing Problem: Medication Goal: Satisfaction with pain management medication regimen will improve Outcome: Progressing Problem: Sensory Goal: Ability to identify factors that increase pain levels will improve while working to decrease the patient's pain levels Outcome: Progressing Problem: Coping Goal: Ability to cope will improve Outcome: Progressing Problem: Health Behavior Goal: Identification of resources available to assist in meeting health care needs will improve Outcome: Progressing Problem: Gastrointestinal Goal: Minimal or absence of nausea and vomiting Outcome: Progressing Goal: Maintains or returns to baseline bowel function Outcome: Progressing Goal: Will show no signs and symptoms of gastrointestinal bleeding Outcome: Progressing Problem: Isolation Lack of Knowledge Goal: Knowledge of risk factors and measures for prevention of condition will improve Outcome: Progressing Problem: Isolation Physical Regulation Goal: Isolation- Spread of further infection will be prevented Outcome: Progressing Goal: Isolation- Complications related to the disease process, condition, or treatment will be avoided or minimized. Outcome: Progressing Problem: Infection Goal: Absence of infection during hospitalization Outcome: Progressing * Plan of Care - Chay Sullivan RN - 04/05/2024 2:48 PM CDT Goals: Clinical Goals for the Shift: improve N/V. Problem: Discharge Planning Goal: Understanding discharge needs will improve Outcome: Not Progressing Problem: Gastrointestinal Goal: Maintains or returns to baseline bowel function Outcome: Not Progressing Goal: Maintains adequate nutritional intake Outcome: Not Progressing Problem: Lack of Knowledge Goal: Ability to develop a pain control plan will improve Outcome: Progressing Problem: Medication Goal: Satisfaction with pain management medication regimen will improve Outcome: Progressing Problem: Coping Goal: Ability to cope will improve Outcome: Progressing Problem: Gastrointestinal Goal: Minimal or absence of nausea and vomiting Outcome: Progressing Summary: Pt had no falls/injuries during shift. VSS. A&Ox4. IVF changed. Supplemented potassium/phosphate. Prns given for nausea. Pt states she had 2 episodes of vomiting. Did drink half of a cranberry juice and kept it down. No plans for PICC/TPN/Dobhoff today. * Plan of Care - Coco Malone MSW - 04/05/2024 1:59 PM CDT CM Initial Assessment Interview Note Information Obtained From: Patient (04/05/24 0935) Admission Source: ED from home. Impression: Nausea/Vomiting. Bipolar disorder Plan Includes: Return home. Primary Source of Transportation: Does the patient need discharge transport arranged?: No (04/04/24 1018) Health Insurance Coverage: [employer]. Prescription Coverage: yes Pharmacy: [id number] - [place], [place] - [address] [facility] [place] [facility] [address] [place] [address] Primary Care Provider: Maurice Duff Jr., MD Prior to Admission: Functional Status: Independent with ADLs Primary Caregiver: Self Support System: Parent Home Care Services: No Outpatient Services: No Durable Medical Equipment: None Living Arrangements: Alone, Other (Comment) (daughter stays with occ.) Type of Residence: Apartment Steps in home?: Yes, Inside home Number of steps inside: 13 steps Medication management: Independent (03/30/24 134) SDOH: Transportation: In the past 12 months, has lack of transportation kept you from medical appointments or from getting medications?: No In the past 12 months, has lack of transportation kept you from meetings, work, or from getting things needed for daily living?: No (04/05/24 135) Financial Resource: How hard is it for you to pay for the very basics like food, housing, medical care, and heating?: Not very hard (04/05/241356) Housing: In the last 12 months, was there a time when you were not able to pay the mortgage or rent on time?: No In the past 12 months, how many times have you moved where you were living?: 0 At any time in the past 12 months, were you homeless or living in a halfway (including now)?: No (04/05/24 1358) Utilities: Social Connections: In a typical week, how many times do you talk on the phone with family, friends, or neighbors?: More than three times a week How often do you get together with friends or relatives?: More than three times a week How often do you attend congregational or jehovah's witness services?: Never Do you belong to any clubs or organizations such as congregational groups, unions, fraternal or athletic groups, or school groups?: No How often do you attend meetings of the clubs or organizations you belong to?: Never Are you , , , , never , or living with a partner?: (04/05/241356) Food Insecurity: Within the past 12 months, you worried that your food would run out before you got the money to buymore.: Never true Within the past 12 months, the food you bought just didn't last and you didn't have money to get more.: Never true (04/05/241356) Alcohol Use: PHQ Screening Potential discharge needs include: OP Services: Dialysis: No. Behavioral Health Services: Behavioral Health Services: (Need to confirm. Bipolar/Depression Dx. Seen by Psych while hospitalized.) (04/05/24 1355) Anticipated Level of Care: Anticipated discharge level of care: Private residence Pt/Family agrees with Anticipated Level of Care: Yes (04/05/24 1355) Patient expects to be Discharged to: Private residence, (04/05/24 1355) Additional Information: ED from home due to nausea/vomiting. Met with patient and confirmed that she lives alone--daughter stays with her at times. 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 [place] Parents will transport. From chart review, occ. Marijuana. Bipolar and Depression. Psych seen while hospitalized. Demographics confirmed. Patient's Identified Problem/Goal Problem: Ensure acute medical needs are met and that patient has a safe discharge plan. Goal: Secure a discharge plan that patient/family are agreeable with and ensure patient has continuum of care. Case management will follow for discharge planning and send referrals as needed. Goals include: To assure continuity of care, To maximize coping skills, To assure patient is in a safe environment and To assure access to community resources. Plan includes: 1. Collaboration with Patient, Provider, Direct Care Nurse, Blood Bank Laboratory Technologist, and other members of theHealth Care Team to assure needed interventions completed. 2. Return patient to optimal level of self-care post discharge. 3. Manager Laundry will follow for Discharge Planning - interventions as needed 4. Anticipated level of care at discharge 5. Planned Discharge Disposition JAYE Swift * Plan of Care - Jane Islas RN - 04/05/2024 3:13 AM CDT Goals: Clinical Goals for the Shift: VSS, n/v treatment, ivf, iv abx, comfort, rest, safety Summary: vss; pt n/v treated over night; pt tolerated ivf and iv abx; pt rested comfortably overnight;pt free of falls and injury; Problem: Gastrointestinal Goal: Minimal or absence of nausea and vomiting Outcome: Ongoing Goal: Maintains or returns to baseline bowel function Outcome: Ongoing Goal: Maintains adequate nutritional intake Outcome: Ongoing Goal: Will show no signs and symptoms of gastrointestinal bleeding Outcome: Ongoing Problem: Infection Goal: Absence of infection during hospitalization Outcome: Ongoing Nursing to Nursing Communication CHARLI: Expected Discharge Date Expected Discharge Date Apr 06, 2024 DC Transport barriers: No PT/OT orders: No CM anticipated level of care: Anticipated discharge level of care: Private residence Mobility Barriers (i.e patient refusal, surgical restrictions, safety concerns, etc.): none Lines/Drains: Peripheral IV 04/04/24 20 G Anterior;Proximal;Right Forearm (Active) Last BM: Last BM Date: 04/03/24 Medical Barriers: IV medications Incomplete Orders/Imaging/Consults: none Significant events over the last shift: none * Plan of Care - Emma Huerta RN - 2024 6:24 PM CDT Goals: Clinical Goals for the Shift: VSS, treat nausea/vomiting, tolerate diet, promote fluid intake, promote comfort and safety Summary: VSS, pt had episodes of nausea/vomiting roughly 6 times this shift, intake minimal, pt reports slight improvement after 1st dose erythromycin. Nursing to Nursing Communication CHARLI: Expected Discharge Date Expected Discharge Date Apr 06, 2024 DC Transport barriers: No PT/OT orders: No CM anticipated level of care: Anticipated discharge level of care: Private residence Mobility Barriers (i.e patient refusal, surgical restrictions, safety concerns, etc.): No Lines/Drains: Peripheral IV 04/02/24 22 G Anterior;Left Hand (Active) Last BM: Last BM Date: 04/03/24 Medical Barriers: Other: intractable nausea and vomiting Incomplete Orders/Imaging/Consults: GI following Significant events over the last shift: See shift summary Problem: Discharge Planning Goal: Understanding discharge needs will improve 04/04/20241823 by Emma Huerta RN Outcome: Progressing 04/04/20241819 by Emma Huerta RN Outcome: Ongoing Problem: Lack of Knowledge Goal: Ability to develop a pain control plan will improve 04/04/20241823 by Emma Huerta RN Outcome: Progressing 04/04/20241819 by Emma Huerta RN Outcome: Ongoing Problem: Medication Goal: Satisfaction with pain management medication regimen will improve 04/04/20241823 by Emma Huerta RN Outcome: Progressing 2024 182 by Emma Huerta RN Outcome: Ongoing Problem: Sensory Goal: Ability to identify factors that increase pain levels will improve while working to decrease the patient's pain levels 04/04/20241823 by Emma Huerta RN Outcome: Progressing 04/04/20241819 by Emma Huerta RN Outcome: Ongoing Problem: Coping Goal: Ability to cope will improve 04/04/20241823 by Emma Huerta RN Outcome: Progressing 04/04/20241819 by Emma Huerta RN Outcome: Ongoing Problem: Health Behavior Goal: Identification of resources available to assist in meeting health care needs will improve 04/04/20241823 by Emma Huerta RN Outcome: Progressing 04/04/20241819 by Emma Huerta RN Outcome: Ongoing Problem: Gastrointestinal Goal: Minimal or absence of nausea and vomiting 04/04/20241823 by Emma Huerta RN Outcome: Progressing 04/04/20241819 by Emma Huerta RN Outcome: Progressing Goal: Maintains or returns to baseline bowel function 04/04/20241823 by Emma Huerta RN Outcome: Progressing 04/04/20241819 by Emma Huerta RN Outcome: Progressing Goal: Maintains adequate nutritional intake 04/04/20241823 by Emma Huerta RN Outcome: Progressing 04/04/20241819 by Emma Huerta RN Outcome: Progressing Goal: Will show no signs and symptoms of gastrointestinal bleeding 04/04/20241823 by Emma Huerta RN Outcome: Progressing 04/04/20241819 by Emma Huerta RN Outcome: Progressing Problem: Isolation Lack of Knowledge Goal: Knowledge of risk factors and measures for prevention of condition will improve 04/04/20241823 by Emma Huerta RN Outcome: Progressing 04/04/20241819 by Emma Huerta RN Outcome: Progressing Problem: Isolation Physical Regulation Goal: Isolation- Spread of further infection will be prevented 04/04/20241823 by Emma Huerta RN Outcome: Progressing 04/04/20241819 by Emma Huerta RN Outcome: Progressing Goal: Isolation- Complications related to the disease process, condition, or treatment will be avoided or minimized. 04/04/20241823 by Emma Huerta RN Outcome: Progressing 04/04/20241819 by Emma Huerta RN Outcome: Progressing Problem: Infection Goal: Absence of infection during hospitalization 04/04/20241823 by Emma Huerta RN Outcome: Progressing 04/04/20241819 by Emma Huerta RN Outcome: Progressing * Plan of Care - Coco Malone MSW - 2024 4:07 PM CDT CM assist. Unable to meet with patient today. Full assessment to follow. Cdiff pending. * Provider Query - Nicholas Saba DO - 2024 2:37 PM CDT Specify if the diagnosis metabolic acidosis has been confirmed or ruled out after study. x___ Metabolic Acidosis POA confirmed (specify acuity if known) ___ Acute __x_ Unspecified ___ Metabolic Acidosis ruled out ___ Other explanation of clinical findings, specify below Additional Provider Response: Clinical Indicators/Treatments: 03/31 Admitted with intractable nausea and vomiting, hypokalemia 03/30 ED Provider: CMP shows metabolic acidosis question if this is from vomiting Treatment 03/30 2 Liters Normal Saline, Inapsine, Protonix, Zofran, Toradol, Benadryl, Klonopin, Morphine, Maalox Latest Reference Range & Units 03/30/24 15:40 03/30/24 20:08 03/31/24 06:56 04/01/24 07:09 CO2 22 - 32 mmol/L 21 (L) 23 23 22 References: From the ICD-10-CM Coding Guidelines, use of terms such as likely, suspected, possible, or probable(associated with a specific diagnosis that is being evaluated, monitored, or treated as if it exists) are acceptable and can be coded in the inpatient setting when documented at the time of discharge. This documentation will become part of the patient???s medical record. * Plan of Care - Jane Islas RN - 2024 5:16 AM CDT Goals: Clinical Goals for the Shift: vss, n/v management, pain management, comfort, rest, safety Summary: VSS, n/v treated overnight, pain management overnight, rested comfortably overnight, free of falls and injury Problem: Gastrointestinal Goal: Minimal or absence of nausea and vomiting Outcome: Ongoing Goal: Maintains or returns to baseline bowel function Outcome: Ongoing Goal: Maintains adequate nutritional intake Outcome: Ongoing Goal: Establish and maintain optimal ostomy function Outcome: Ongoing Goal: Will show no signs and symptoms of gastrointestinal bleeding Outcome: Ongoing Problem: Respiratory Goal: Achieves optimal ventilation and oxygenation Outcome: Ongoing Goal: Ability to maintain a clear airway will improve Outcome: Ongoing Goal: Mechanical Ventilation will be safely managed Outcome: Ongoing Problem: Skin/Tissue Integrity Goal: Skin integrity remains intact Outcome: Ongoing Goal: Incisions, wounds, or drain sites healing without S/S of infection Outcome: Ongoing Goal: Oral mucous membranes remain intact Description: Outcome: Ongoing Nursing to Nursing Communication CHARLI: Expected Discharge Date Expected Discharge Date 2024 DC Transport barriers: No PT/OT orders: No CM anticipated level of care: Mobility Barriers (i.e patient refusal, surgical restrictions, safety concerns, etc.): none Lines/Drains: Peripheral IV 04/02/24 22 G Anterior;Left Hand (Active) Last BM: Last BM Date: 04/03/24 Medical Barriers: IV medications Incomplete Orders/Imaging/Consults: none Significant events over the last shift: IVF discontinued * Plan of Care - Renuka Redding RN - 04/03/2024 3:30 PM CDT Goals: Clinical Goals for the Shift: vss, n/v management per MAR, promote comfort and safety, ivf Summary: VSS Medicated with Compazine and Zofran with little relief per pt statement. CT of pelvis completed. IVF's infusing without difficulty. Plan of care ongoing No further concerns at this time.Call light in reach. * Plan of Care - Denisha Garcia RN - 04/03/2024 9:45 AM CDT CM attempted to see patient, patietn having n/v will attempt to see at later time. * Plan of Care - Dana Monique RN - 04/03/2024 4:01 AM CDT Goals: Clinical Goals for the Shift: vss, n/v management per MAR, promote comfort and safety, ivf Nursing to Nursing Communication CHARLI: Expected Discharge Date Expected Discharge Date 2024 DC Transport barriers: No PT/OT orders: No CM anticipated level of care: Mobility Barriers (i.e patient refusal, surgical restrictions, safety concerns, etc.): Iv anti emetics Lines/Drains: Peripheral IV 04/02/24 22 G Anterior;Left Hand (Active) Last BM: Last BM Date: 04/01/24 Medical Barriers: Other: none Incomplete Orders/Imaging/Consults: n/a Significant events over the last shift: vss. MRI of brain complete. IV pepcid and iv zofran x1 @ 2215. Patient c/o no pain. Resting and sleeping in bed with call light within reach. Free of falls. Upind in room. Problem: Discharge Planning Goal: Understanding discharge needs will improve Outcome: Progressing Problem: Lack of Knowledge Goal: Ability to develop a pain control plan will improve Outcome: Progressing Problem: Medication Goal: Satisfaction with pain management medication regimen will improve Outcome: Progressing Problem: Sensory Goal: Ability to identify factors that increase pain levels will improve while working to decrease the patient's pain levels Outcome: Progressing Problem: Coping Goal: Ability to cope will improve Outcome: Progressing Problem: Gastrointestinal Goal: Minimal or absence of nausea and vomiting Outcome: Progressing Problem: Gastrointestinal Goal: Maintains or returns to baseline bowel function Outcome: Progressing * Plan of Care - Denisha Garcia RN - 04/02/2024 1:30 PM CDT Spoke with patient she was sick in room with N/V CM reviewed face sheet information. 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 She does not use any medial equipment. CM will check back with patient when she is feeling a bit better, * Plan of Care - Darshana Lopez RN - 04/01/2024 4:08 PM CDT Unable to complete Initial Assessment; Off floor at procedure - Endoscopy * Plan of Care - Jane Islas RN - 04/01/2024 4:59 AM CDT Goals: Clinical Goals for the Shift: vss, ivf, nausea management, comfort, rest, safety Summary: vss; ivf tolerated; nausea treated throughout shift; pt free of falls and injury; pt rested comfortably overnight; pt npo Problem: Lack of Knowledge Goal: Ability to develop a pain control plan will improve Outcome: Ongoing Problem: Medication Goal: Satisfaction with pain management medication regimen will improve Outcome: Ongoing Problem: Gastrointestinal Goal: Minimal or absence of nausea and vomiting Outcome: Ongoing Goal: Maintains or returns to baseline bowel function Outcome: Ongoing Goal: Maintains adequate nutritional intake Outcome: Ongoing Goal: Establish and maintain optimal ostomy function Outcome: Ongoing Goal: Will show no signs and symptoms of gastrointestinal bleeding Outcome: Ongoing Nursing to Nursing Communication CHARLI: DC Transport barriers: No PT/OT orders: No CM anticipated level of care: Mobility Barriers (i.e patient refusal, surgical restrictions, safety concerns, etc.): ind Lines/Drains: Peripheral IV 03/30/24 20 G Right Antecubital (Active) Last BM: Last BM Date: 03/31/24 (small) Medical Barriers: Inadequate pain control Incomplete Orders/Imaging/Consults: GI Significant events over the last shift: none * Plan of Care - Therese Harmon RN - 03/31/2024 5:27 PM CDT Goals: Clinical Goals for the Shift: vss, IVF, nausea management Summary: Patient having sudden intense pain whenever she takes anything PO. Frequent episodes of nausea and vomiting. Treated per MAR. IVFs infusing. Strict NPO at midnight for GI consult. * Plan of Care - Jyoti Escoto RN - 03/31/2024 2:38 AM CDT Goals: Will remain free of falls. Will remain hydrated, pain controled. Nausea controled. Summary: still not feeling well. Iv fluids infusing. Pt voiding. PCP aware of patients condition. documented in this encounter Plan of Treatment Pending Results Name Type Priority Associated Diagnoses Date /Time Lipase Lab Routine 03/31/2024 6:5 6 AM CDT Cortisol Lab Routine 04/01/2024 7:0 9 AM CDT Thyroid Function Niotaze Lab Routine 04/01/2024 7:09 AM CDT Hemoglobin A1c Lab Routine 04/01/2024 7:09 AM CDT Hepatic function panel Lab Routine 7:13 AM CDT Phosphorus Lab Routine 2024 7:1 3 AM CDT Magnesium Lab Routine 2024 7:1 3 AM CDT Magnesium Lab Routine 04/05/2024 6:5 9 AM CDT Phosphorus Lab Routine 04/05/2024 6:5 9 AM CDT Hepatic function panel Lab Routine 6:59 AM CDT CRP (acute phase) Lab Routine 024 10:53 AM CDT Scheduled Orders Name Type Priority Associated Diagnoses Orde r Schedule Lipase Lab Routine Once for 1 Occ urrences starting 03/31/2024 until 03/31/2024 Cortisol Lab Routine Once for 1 Occ urrences starting 04/01/2024 until 04/01/2024 Thyroid Function Niotaze Lab Routine Once for 1 Occurrences starting 04/01/2024 until 04/01/2024 Hemoglobin A1c Lab Routine Once for 1 Occurrences starting 04/01/2024 until 04/01/2024 Hepatic function panel Lab Routine On ce for 1 Occurrences starting 2024 until 2024 Phosphorus Lab Routine Once for 1 Occ urrences starting 2024 until 2024 Magnesium Lab Routine Once for 1 Occ urrences starting 2024 until 2024 Magnesium Lab Routine Once for 1 Occ urrences starting 04/05/2024 until 04/05/2024 Phosphorus Lab Routine Once for 1 Occ urrences starting 04/05/2024 until 04/05/2024 Hepatic function panel Lab Routine On ce for 1 Occurrences starting 04/05/2024 until 04/05/2024 CRP (acute phase) Lab Routine Once fo r 1 Occurrences starting 04/06/2024 until 04/06/2024 documented as of this encounter Procedures Procedure Name Priority Date/Time Associated Diagnosis Comments EGFR Routine 04/09/2024 5:53 AM CDT PHOSPHORUS Routine 04/09/2024 5:53 AM CDT MAGNESIUM Routine 04/09/2024 5:53 AM CDT COMPREHENSIVE METABOLIC PANEL Routine 5:53 AM CDT NM HEPATOBILIARY IMAGING W PHARMACEUTICAL INTERVENTION IP Routine 04/08/2024 11:40 AM CDT EGFR Routine 04/08/2024 3:57 AM CDT DIFFERENTIAL AUTO Routine 04/08/2024 3:57 AM CDT CBC WITH AUTO DIFFERENTIAL Routine 04/08 3:57 AM CDT PHOSPHORUS Routine 04/08/2024 3:57 AM CDT MAGNESIUM Routine 04/08/2024 3:57 AM CDT COMPREHENSIVE METABOLIC PANEL Routine 3:57 AM CDT XR CHEST 1 VIEW ED Urgent/IP Urgent 04/07/2024 2:48 PM CDT GENERAL Routine 04/07/2024 2:28 PM CDT On total parenteral nutrition EGFR Routine 04/07/2024 7:33 AM CDT PHOSPHORUS Routine 04/07/2024 7:33 AM CDT MAGNESIUM Routine 04/07/2024 7:33 AM CDT COMPREHENSIVE METABOLIC PANEL Routine 7:33 AM CDT CALPROTECTIN, FECAL Routine 04/06/2024 10:02 PM CDT XR ABDOMEN AP 1 VIEW ED Urgent/IP Urgent 04/06/2024 3:55 PM CDT EGFR Routine 04/06/2024 10:53 AM CDT CRP (ACUTE PHASE) Routine 04/06/2024 10:53 AM CDT PHOSPHORUS Routine 04/06/2024 10:53 AM CDT MAGNESIUM Routine 04/06/2024 10:53 AM CDT COMPREHENSIVE METABOLIC PANEL Routine 10:53 AM CDT LACTATE Routine 04/05/2024 5:36 PM CDT BETA-HYDROXYBUTYRATE Routine 04/05/2024 5:36 PM CDT ADD ON LAB TEST Add-On 04/05/2024 1:43 PM CDT CMV, IGG AND IGM ANTIBODIES Routine 03/15 10:47 AM CDT EDWIN-MONTOYA VIRUS VCA ANTIB MICKY PANEL Routine 04/05/2024 10:47 AM CDT ADD ON LAB TEST Add-On 04/05/2024 9:46 AM CDT ADD ON LAB TEST Add-On 04/05/2024 9:10 AM CDT ADD ON LAB TEST Add-On 04/05/2024 9:10 AM CDT EGFR Routine 04/05/2024 6:59 AM CDT PHOSPHORUS Routine 04/05/2024 6:59 AM CDT MAGNESIUM Routine 04/05/2024 6:59 AM CDT HEPATIC FUNCTION PANEL Routine 6:59 AM CDT BASIC METABOLIC PANEL Routine 04/05/2024 6:59 AM CDT C. DIFFICILE TESTING Routine 04/05/2024 5:32 AM CDT ADD ON LAB TEST Add-On 2024 1:56 PM CDT ADD ON LAB TEST Add-On 2024 1:56 PM CDT ADD ON LAB TEST Add-On 2024 11:51 AM CDT EGFR Routine 2024 7:13 AM CDT PHOSPHORUS Routine 2024 7:13 AM CDT MAGNESIUM Routine 2024 7:13 AM CDT HEPATIC FUNCTION PANEL Routine 7:13 AM CDT BASIC METABOLIC PANEL Routine 2024 7:[address] ABDOMEN PELVIS W CONTRAST IP Routine 1:54 PM CDT EGFR Routine 04/03/2024 11:19 AM CDT BASIC METABOLIC PANEL Routine 04/03/2024 11:19 AM CDT MRI BRAIN W WO CONTRAST IP Routine 04/02/20 11:17 PM CDT RESPIRATORY PATHOGEN PANEL Routine 04/02 12:54 PM CDT ADD ON LAB TEST Add-On 04/02/2024 10:42 AM CDT ADD ON LAB TEST Add-On 04/02/2024 10:42 AM CDT US ABDOMEN LIMITED IP Routine 04/02/2024 8:01 AM CDT XR KUB IP Routine 04/01/2024 5:48 PM CDT SURGICAL PATHOLOGY Routine 04/01/2024 3:14 PM CDT Intractable nausea and vomiting ESOPHAGOGASTRODUODENOSCOPY BIOPSY 04/01/2024 3:09 PM CDT Intractable nausea and vomiting EGD 04/01/2024 3:02 PM CDT POCT HCG, URINE Routine 04/01/2024 2:05 PM CDT EGFR Routine 04/01/2024 7:09 AM CDT DIFFERENTIAL AUTO Routine 04/01/2024 7:09 AM CDT THYROID FUNCTION CASCADE Routine 024 7:09 AM CDT CBC WITH AUTO DIFFERENTIAL Routine 04/01 7:09 AM CDT HEMOGLOBIN A1C Routine 04/01/2024 7:09 AM CDT CORTISOL Routine 04/01/2024 7:09 AM CDT COMPREHENSIVE METABOLIC PANEL Routine 7:09 AM CDT ADD ON LAB TEST Add-On 03/31/2024 12:16 PM CDT EGFR Routine 03/31/2024 6:56 AM CDT DIFFERENTIAL AUTO Routine 03/31/2024 6:56 AM CDT CBC WITH AUTO DIFFERENTIAL Routine 03/31 6:56 AM CDT LIPASE Routine 03/31/2024 6:56 AM CDT BASIC METABOLIC PANEL Routine 03/31/2024 6:56 AM CDT POCT GLUCOSE DEVICE Routine 03/30/2024 11:07 PM CDT ECG 12-LEAD STAT 03/30/2024 8:40 PM CDT EGFR STAT 03/30/2024 8:08 PM CDT BASIC METABOLIC PANEL STAT 03/30/2024 8:08 PM CDT DRUGS OF ABUSE SCREEN, URINE WITH REFLEX CONFIRMATION STAT 03/30/2024 6:20 PM CDT OPIATES CONFIRMATION MS, URINE STAT 0 03/30/2024 6:20 PM CDT URINALYSIS AND REFLEX TO MICROSCOPIC AND CULTURE STAT 03/30/2024 6:20 PM CDT URINALYSIS, MICROSCOPIC ONLY STAT 6:20 PM CDT TROPONIN T HIGH-SENSITIVITY 2-HOUR Timed 03/30/2024 6:00 PM CDT TROPONIN T HIGH-SENSITIVITY SERIES (BASELINE, 2HR, 4HR, 6HR) STAT 03/30/2024 3:40 PM CDT EGFR STAT 03/30/2024 3:40 PM CDT DIFFERENTIAL AUTO STAT 03/30/2024 3:40 PM CDT CBC WITH AUTO DIFFERENTIAL STAT 03/30 3:40 PM CDT COMPREHENSIVE METABOLIC PANEL STAT 3:40 PM CDT XR CHEST PA LATERAL 2 VIEWS ED 03/14 3:39 PM CDT ECG 12-LEAD STAT 03/30/2024 3:11 PM CDT documented in this encounter Results * eGFR (04/09/2024 5:53 AM CDT) eGFR >90 >=60 mL/min/1. 73 [...] interpretive data was last reviewed 2021. Blood 04/09/2024 5:53 AM CDT 04/09/2024 6:09 AM CDT [facility] DO LAB BLOOD ORDERABLES Amanda l Result Performing Organization Address City/[facility]/ZIP Co de Phone Number [facility] [address] [place], [place] [id number] * Magnesium (04/09/2024 5:53 AM CDT) Magnesium 2.3 1.4 - 2.5 mg/dL Blood 04/09/2024 5:53 AM CDT 04/09/2024 6:09 AM CDT Baza Smooth Ahmad DO LAB BLOOD ORDERABLES Amanda l Result [facility] [address] Department [place] [address] * (ABNORMAL) Phosphorus (04/09/2024 5:53 AM CDT) Phosphorus, pl 4.8(H) 2.3 - 4.5 mg/dL Blood 04/09/2024 5:53 AM CDT 04/09/2024 6:09 AM CDT Nicholas Smooth Ahmad DO LAB BLOOD ORDERABLES Amanda pierce Result [facility] [address] Department [place] [address] * Comprehensive metabolic panel (04/09/2024 5:53 AM CDT) Sodium 135 135 - 145 mmol/L Potassium, pl 4.0 3.3 - 4.9 mmol/L [facility] Chloride 99 97 - 110 mmol/L [facility] CO2 25 22 - 32 mmol/L [facility] Anion gap 11 2 - 15 mmol/L [facility] BUN 7 6 - 25 mg/dL [facility] Creatinine 0.81 0.60 - 1.10 mg/dL [facility] Glucose 104 70 - 199 mg/dL [facility] Comment: Interpretive Data Fasting glucose [...] interpretive data was last revised 2022. Calcium 9.4 8.5 - 10.3 mg/dL [facility] Bilirubin, total 0.4 0.1 - 1.2 mg/dL [facility] Protein, pl 6.8 6.5 - 8.5 g/dL [facility] Albumin 3.8 3.5 - 5.0 g/dL [facility] Alk phos 84 40 - 130 Units/L [facility] ALT 35 7 - 45 Units/L [facility] AST 24 10 - 45 Units/L [facility] Blood 04/09/2024 5:53 AM CDT 04/09/2024 6:09 AM CDT Masoodalejandrolayla Rebollar Polojoey DO LAB BLOOD ORDERABLES Amanda l Result [facility] [address] Department [place] [address] * NM Hepatobiliary Imaging W GBEF (04/08/2024 11:40 AM CDT) Anatomical Region Laterality Modality Body N/A Nuclear Medicine 04/08/2024 11:4 2 AM CDT Impressions 04/08/2024 11:42 AM CDT Normal study. Electronically signed by: Fan Goldberg M.D. Narrative 04/08/2024 11:42 AM CDT Nuclear medicine hepatobiliary gallbladder imaging study with ejection fraction calculation. HISTORY: Vomiting. FINDINGS: Pretreatment obtained with 0.6 mcg CCK. ??The patient received 5.8 mCi technetium 99 Choletec. There is prompt accumulation of radiopharmaceutical in the liver, gallbladder, biliary system, and bowel. The patient received 1.2 mcg of CCK resulting in a gallbladder ejection fraction of 94%. Procedure Note Fan Goldberg MD - 04/08/2024 Nuclear medicine hepatobiliary gallbladder imaging study with ejection fraction calculation. HISTORY: Vomiting. FINDINGS: Pretreatment obtained with 0.6 mcg CCK. The patient received 5.8 mCi technetium 99 Choletec. There is prompt accumulation of radiopharmaceutical in the liver, gallbladder, biliary system, and bowel. The patient received 1.2 mcg of CCK resulting in a gallbladder ejection fraction of 94%. IMPRESSION: Normal study. Electronically signed by: Fan Goldberg M.D. Nicholas Garibayd DO IMG NM PROCEDURES Final R esult * eGFR (04/08/2024 3:57 AM CDT) eGFR >90 >=60 mL/min/1. 73 [...] interpretive data was last reviewed 2021. Blood 04/08/2024 3:57 AM CDT 04/08/2024 4:25 AM CDT Shanezgha Smooth Ahmad DO LAB BLOOD ORDERABLES Amanda stan Result [facility] [address] Department [place] [address] * (ABNORMAL) Differential, auto (04/08/2024 3:57 AM CDT) Neutrophil abs 3.4 1.5 - 6.5 K/cumm Imm gran abs 0.0 0.0 - 0.1 K/cumm [facility] Lymphocyte abs 3.7(H) 0.8 - 3.3 K/cumm [facility] Monocyte abs 1.0(H) 0.2 - 0.8 K/cumm [facility] Eosinophil abs 0.1 0.0 - 0.5 K/cumm [facility] Basophil abs 0.0 0.0 - 0.1 K/cumm [facility] Neutrophil pct 41.1 % [facility] Comment: Interpretive Data Percent cell count reference ranges are not reported, since discordance with absolute values may lead to misinterpretation of CBC data. Current Interpretive Data was last revised on 2017. Imm gran pct 0.2 % [facility] Comment: Interpretive Data Percent cell count reference ranges are not reported, since discordance with absolute values may lead to misinterpretation of CBC data. Current Interpretive Data was last revised on 2017. Lymphocyte pct 44.1 % [facility] Comment: Interpretive Data Percent cell count reference ranges are not reported, since discordance with absolute values may lead to misinterpretation of CBC data. Current Interpretive Data was last revised on 2017. Monocyte pct 12.4 % [facility] Comment: Interpretive Data Percent cell count reference ranges are not reported, since discordance with absolute values may lead to misinterpretation of CBC data. Current Interpretive Data was last revised on 2017. Eosinophil pct 1.7 % [facility] Comment: Interpretive Data Percent cell count reference ranges are not reported, since discordance with absolute values may lead to misinterpretation of CBC data. Current Interpretive Data was last revised on 2017. Basophil pct 0.5 % [facility] Comment: Interpretive Data Percent cell count reference ranges are not reported, since discordance with absolute values may lead to misinterpretation of CBC data. Current Interpretive Data was last revised on 2017. Blood 04/08/2024 3:57 AM CDT 04/08/2024 4:25 AM CDT us Nicholas Saba DO LAB BLOOD ORDERABLES Amanda l Result [facility] [address] Department [place] [address] * Magnesium (04/08/2024 3:57 AM CDT) Pathologist [facility] Magnesium 2.2 1.4 - 2.5 mg/dL Blood 04/08/2024 3:57 AM CDT 04/08/2024 4:25 AM CDT [facility] Polomad DO LAB BLOOD ORDERABLES Amanda l Result Performing Organization Address City/[facility]/ZIP Co de Phone Number [facility] [address] Department [place] [address] * (ABNORMAL) Phosphorus (04/08/2024 3:57 AM CDT) [facility] Phosphorus, pl 4.6(H) 2.3 - 4.5 mg/dL Blood 04/08/2024 3:57 AM CDT 04/08/2024 4:25 AM CDT [facility]LOOD ORDERABLES Amanda l Result Performing Organization Address [facility] Co de Phone Number [facility] [address] [facility] [place] [address] * (ABNORMAL) Comprehensive metabolic panel (04/08/2024 3:57 AM CDT) [facility] Sodium 137 135 - 145 mmol/L Potassium, pl 3.1(L) 3.3 - 4.9 mmol/L [facility] Chloride 100 97 - 110 mmol/L [facility] CO2 27 22 - 32 mmol/L [facility] Anion gap 10 2 - 15 mmol/L [facility] BUN 5(L) 6 - 25 mg/dL [facility] Creatinine 0.73 0.60 - 1.10 mg/dL [facility] Glucose 117 70 - 199 mg/dL [facility] Comment: Interpretive Data Fasting glucose [...] interpretive data was last revised 2022. Calcium 9.3 8.5 - 10.3 mg/dL [facility] Bilirubin, total 0.5 0.1 - 1.2 mg/dL [facility] Protein, pl 6.8 6.5 - 8.5 g/dL [facility] Albumin 3.9 3.5 - 5.0 g/dL [facility] Alk phos 82 40 - 130 Units/L [facility] ALT 26 7 - 45 Units/L [facility] AST 19 10 - 45 Units/L [facility] Blood 04/08/2024 3:57 AM CDT 04/08/2024 4:25 AM CDT Nicholas Saba DO LAB BLOOD ORDERABLES Amanda l Result [facility] [address] Department [place] [address] * CBC with auto differential (04/08/2024 3:57 AM CDT) WBC 8.4 3.8 - 9.9 K/cumm Hgb 13.2 11.9 - 15.5 g/dL [facility] Hct 40.2 35.6 - 45.5 % [facility] Plt 284 150 - 400 K/cumm [facility] MPV 11.2 9.1 - 12.3 fL [facility] RBC 4.52 3.90 - 5.20 M/cumm [facility] MCV 88.9 81.3 - 96.4 fL [facility] MCH 29.2 27.1 - 33.3 pg [facility] MCHC 32.8 32.3 - 35.7 g/dL [facility] RDW CV 13.7 11.1 - 14.9 % [facility] RDW SD 44.3 35.7 - 48.1 fL [facility] NRBC abs 0.00 0.00 - 0.01 K/cumm [facility] Blood 04/08/2024 3:57 AM CDT 04/08/2024 4:25 AM CDT Bazgha Smooth Ahmad DO LAB BLOOD ORDERABLES Amanda l Result [facility] [address] Department [place] [address] * XR Chest 1 View (04/07/2024 2:48 PM CDT) Anatomical Region Laterality Modality Body, Chest N/A Computed Radiogr aphy 04/07/2024 2:51 PM CDT Impressions 04/07/2024 2:51 PM CDT Interval placement left upper cavity PICC with tip in the mid SVC. Electronically signed by: Brandt Lombardo M.D. Narrative 04/07/2024 2:51 PM CDT EXAMINATION: XR CHEST 1 VIEW HISTORY: PICC placement. COMPARISON: Chest radiograph 03/30/2024. FINDINGS: AP upright portable chest radiograph is obtained. ??Interval placement left upper extremity PICC with tip in the mid SVC. Heart size and pulmonary vascularity are normal. ??Lungs are well-expanded with no airspace disease. Procedure Note Brandt Lombardo MD - 04/07/2024 EXAMINATION: XR CHEST 1 VIEW HISTORY: PICC placement. COMPARISON: Chest radiograph 03/30/2024. FINDINGS: AP upright portable chest radiograph is obtained. Interval placement left upper extremity PICC with tip in the mid SVC. Heart size and pulmonary vascularity are normal. Lungs are well-expanded with no airspace disease. IMPRESSION: Interval placement left upper cavity PICC with tip in the mid SVC. Electronically signed by: Brandt Lombardo M.D. Fernando GONZALEZ IMAndrzej XR PROCEDURES Final Result * GENERAL (04/07/2024 2:28 PM CDT) Narrative Fernando Clinton PA - 04/07/2024 2:28 PM CDT Fernando Clinton PA ? 04/07/2024 ??2:29 PM General - Inpatient Date/Time: 04/07/2024 2:28 PM Performed by: Fernando Clinton PA Authorized by: Fernando Clinton PA ?? [place] Protocol: RN Notified of Procedure: yes ?? Informed consent: ??Risks, benefits, alternatives discussed and patient/access services representative/guardian agrees and accepts Patient's stated name/ matches armband: ??Yes and patient unable to verbalize - armband matched to name and within medical record Allergies confirmed: yes ?? Consent form signed, dated, timed; matches correct patient, intended procedure and site: ??Yes and no consent form due to emergent status Supplies, devices and special equipment are available: yes ?? Site/side marked: yes Immediately prior to the procedure a time out was called: a verbal verification by the procedure participants confirmed correct patient identity, correct site/side marked and visible (if applicable); agreement on procedure to be done; and correct patient positioning ?? Anesthesia (see MAR for exact dosage) Anesthesia method: ??Local infiltration Local anesthetic: ??Lidocaine 1% Hand hygiene performed: Yes ?? PPE (including eye protection) in place as appropriate to the procedure: Yes ?? Preparation: Patient was prepped using appropriate disinfectant and draped using sterile technique as needed ?? Procedure details: ?? Triple lumen PICC cut 35cm and placed in the LUE, one attempt. All ports aspirated and flushed Patient tolerance: ??Patient tolerated the procedure well with no immediate complications and patient tolerated the procedure well with no immediate complications Post Procedure Debrief: All guidewires, needles, sponges or other items are accounted for: yes ?? Any special post procedure monitoring, testing or other considerations: yes (enter/request order) ?? All specimens identified, labeled and matched to patient identification: n/a ?? Fernando GONZALEZ IN CLINIC/BEDSIDE ORDERABLES F inal Result * eGFR (04/07/2024 7:33 AM CDT) eGFR >90 >=60 mL/min/1. 73 [...] interpretive data was last reviewed 2021. Blood 04/07/2024 7:33 AM CDT 04/07/2024 7:44 AM CDT [facility] LaddSmooth Ahmad DO LAB BLOOD ORDERABLES Amanda l Result Performing Organization Address City/[facility]/ZIP Co de Phone Number [facility] [address] Department of Laboratories [place], [place] [phone] * Magnesium (04/07/2024 7:33 AM CDT) Magnesium 2.0 1.4 - 2.5 mg/dL Blood 04/07/2024 7:33 AM CDT 04/07/2024 7:44 AM CDT [facility] Sm[facility] Ahmad DO LAB BLOOD ORDERABLES Amanda l Result [facility] [address] Department [place] [address] * Phosphorus (04/07/2024 7:33 AM CDT) Pathologist [facility] Phosphorus, pl 3.8 2.3 - 4.5 mg/dL Blood 04/07/2024 7:33 AM CDT 04/07/2024 7:44 AM CDT Bazgha Smooth Ahmad DO LAB BLOOD ORDERABLES Amanda l Result Performing Organization Address [facility]/ZIP Co de Phone Number [facility] [address] Department [place] [address] * (ABNORMAL) Comprehensive metabolic panel (04/07/2024 7:33 AM CDT) [facility] Sodium 138 135 - 145 mmol/L Potassium, pl 3.0(L) 3.3 - 4.9 mmol/L [facility] Chloride 92(L) 97 - 110 mmol/L [facility] CO2 32 22 - 32 mmol/L [facility] Anion gap 14 2 - 15 mmol/L [facility] BUN 7 6 - 25 mg/dL [facility] Creatinine 0.75 0.60 - 1.10 mg/dL [facility] Glucose 135 70 - 199 mg/dL [facility] Comment: Interpretive Data Fasting glucose [...] interpretive data was last revised 2022. Calcium 9.6 8.5 - 10.3 mg/dL [facility] Bilirubin, total 0.6 0.1 - 1.2 mg/dL [facility] Protein, pl 7.2 6.5 - 8.5 g/dL [facility] Albumin 4.0 3.5 - 5.0 g/dL [facility] Alk phos 93 40 - 130 Units/L [facility] ALT 28 7 - 45 Units/L [facility] AST 19 10 - 45 Units/L [facility] Blood 04/07/2024 7:33 AM CDT 04/07/2024 7:44 AM CDT [facility] A[facility] DO LAB BLOOD ORDERABLES Amanda l Result Performing Organization Address City/[facility]/ZIP Co de Phone Number [facility] [address] [place] [address] * (ABNORMAL) Calprotectin, fecal (04/06/2024 10:02 PM CDT) Calprotectin, fecal 221(H) <50.0 (Normal) mcg/g [facility] Comment: Interpretation: Abnormal (>120 mcg/g) Test Performed by: [place] [address] Clinical Psychology Teacher: Ronaldo Delgado Ph.D.; CLIA# [id number] Stool 04/06/2024 10:0 2 PM CDT 04/06/2024 10:[address] [facility] LAB BODY FLUIDS AND STOOL S ORDERABLES Final Result [facility] [address] Department [place] [address] [place] [facility] * XR Abdomen Ap 1 Vw (04/06/2024 3:55 PM CDT) Anatomical Region Laterality Modality Body, Abdomen N/A Computed Radiogr aphy 04/06/2024 4:33 PM CDT Impressions 04/06/2024 4:33 PM CDT Interval placement of a enteric tube with tip terminating near the ligament of Treitz jejunum. ??Image of gas pattern is within normal. ??Imaged lung bases are normal. Electronically signed by: Uyen Ingram M.D. Narrative 04/06/2024 4:33 PM CDT EXAMINATION: XR ABDOMEN AP 1 VIEW HISTORY: Interval placement of a enteric tube COMPARISON: None. Procedure Note Uyen Ingram MD - 04/06/2024 EXAMINATION: XR ABDOMEN AP 1 VIEW HISTORY: Interval placement of a enteric tube COMPARISON: None. IMPRESSION: Interval placement of a enteric tube with tip terminating near the ligament of Treitz jejunum. Image of gas pattern is within normal. Imaged lung bases are normal. Electronically signed by: Ueyn Ingram M.D. us Niko Gerber PA IMG XR PROCEDURES Final Res ult * CRP (acute phase) (04/06/2024 10:53 AM CDT) CRP 5.4 <=10.0 mg/L Blood 04/06/2024 10:5 3 AM CDT 04/06/2024 11:04 AM CDT us Nicholas Smooth Ahmad DO LAB BLOOD ORDERABLES Amanda l Result [facility] [address] Department [place] [address] * eGFR (04/06/2024 10:53 AM CDT) eGFR >90 >=60 mL/min/1. 73 [...] interpretive data was last reviewed 2021. Blood 04/06/2024 10:5 3 AM CDT 04/06/2024 11:04 AM CDT [facility] Sm[facility] Ahmad DO LAB BLOOD ORDERABLES Amanda l Result Performing Organization Address City/[facility]/ZIP Co de Phone Number [facility] [address] [place], [place] [phone] * Magnesium (04/06/2024 10:53 AM CDT) Magnesium 1.8 1.4 - 2.5 mg/dL Blood 04/06/2024 10:5 3 AM CDT 04/06/2024 11:04 AM CDT [facility] Sm[facility] Ahmad DO LAB BLOOD ORDERABLES Amanda l Result [facility] [address] Department [place] [address] * Phosphorus (04/06/2024 10:53 AM CDT) Phosphorus, pl 2.9 2.3 - 4.5 mg/dL Blood 04/06/2024 10:5 3 AM CDT 04/06/2024 11:04 AM CDT Nicholas Rebollar Ahjoey DO LAB BLOOD ORDERABLES Amanda pierce Result [facility] [address] Department [place] [address] * (ABNORMAL) Comprehensive metabolic panel (04/06/2024 10:53 AM CDT) Sodium 136 135 - 145 mmol/L Potassium, pl 3.3 3.3 - 4.9 mmol/L [facility] Chloride 95(L) 97 - 110 mmol/L [facility] CO2 28 22 - 32 mmol/L [facility] Anion gap 13 2 - 15 mmol/L [facility] BUN 5(L) 6 - 25 mg/dL [facility] Creatinine 0.65 0.60 - 1.10 mg/dL [facility] Glucose 136 70 - 199 mg/dL [facility] Comment: Interpretive Data Fasting glucose [...] interpretive data was last revised 2022. Calcium 9.8 8.5 - 10.3 mg/dL [facility] Bilirubin, total 0.5 0.1 - 1.2 mg/dL [facility] Protein, pl 7.7 6.5 - 8.5 g/dL [facility] Albumin 4.4 3.5 - 5.0 g/dL [facility] Alk phos 93 40 - 130 Units/L [facility] ALT 38 7 - 45 Units/L [facility] AST 20 10 - 45 Units/L [facility] Blood 04/06/2024 10:5 3 AM CDT 04/06/2024 11:04 AM CDT Nicholas Garibayd DO LAB BLOOD ORDERABLES Amanda l Result Performing Organization Address [facility] Co de Phone Number [facility] [address] Department [place] [address] * (ABNORMAL) Beta-hydroxybutyrate (04/05/2024 5:36 PM CDT) Beta-Hydroxybut yrate 1.9(H) <=0.5 mmol/L Blood 04/05/2024 5:36 PM CDT 04/05/2024 5:43 PM CDT [facility] Saba DO LAB BLOOD ORDERABLES Amanda l Result Performing Organization Address City/[facility]/ZIP Co de Phone Number [facility] [address] Department [place] [address] * Lactate (04/05/2024 5:36 PM CDT) Pathologist [facility] Lactate 0.9 0.7 - 2.0 mmol/L Blood 04/05/2024 5:36 PM CDT 04/05/2024 5:42 PM CDT [facility] Gar[facility]d DO LAB BLOOD ORDERABLES Amanda l Result Performing Organization Address City/[facility]/ZIP Co de Phone Number [facility] [address] [facility] [place] [address] * Glycohemoglobin A1C - Add on lab test (04/05/2024 1:43 PM CDT) Acceptable Yes Blood 04/05/2024 1:43 PM CDT 04/05/2024 1:43 PM CDT Narrative [facility] - 04/05/2024 1:43 PM CDT Name of Test->Glycohemoglobin A1C Nicholas Saba DO LAB BLOOD ORDERABLES Amanda l Result Performing Organization Address City/[facility]/ZIP Co de Phone Number [facility] [address] Department [place] [address] * (ABNORMAL) Edwin-Montoya virus (EBV) antibody panel Blood (04/05/2024 10:47 AM CDT) Pathologist [facility] EBV nuclear Ab Positive(A) Negative Comment: Indicates the presence of detectable IgG antibody to EBV Nuclear Antigen. Testing performed by: [facility], [address] [place] [address]., [id number] EBV VCA IgG Positive(A) Negative [facility] Comment: Indicates the presence of antibody; 90% of the adult population will have been infected with EBV sometime in the past. Testing performed by: [facility], [address] [place] [address]., [id number] EBV VCA IgM Negative Negative [facility] Comment: No detectable IgM antibody to EBV-VCA. ??A negative result indicates no current infection with EBV. If clinical suspicion of acute EBV infection is present, testing should be repeated after one week. Testing performed by: [facility], [address] [place] [address]., [id number] EBV interp Past Infection [facility] Comment:Testing performed by : [address] [address] Blood 04/05/2024 10:4 7 AM CDT 04/05/2024 9:02 PM CDT Nicholas Rebollar Ahjoey DO LAB MICROBIOLOGY - GENERA L ORDERABLES Final Result Performing Organization Address City/[facility]/ZIP Co de Phone Number [facility] [address] Department [place] [address] * (ABNORMAL) CMV, IgG and IgM antibodies Blood (04/05/2024 10:47 AM CDT) CMV IgG Positive(A) Negative Comment: Interpretive Data Negative - Individuals with negative CMV IgG results are presumed to not have had prior exposure or infection with CMV and are, therefore, considered susceptible to primary infection. Equivocal - Equivocal results may occur during acute infection or may be due to nonspecific binding reactions. Submit an additional sample for testing if clinically indicated. Positive - Indicates presence of detectable CMV IgG antibody. Results indicate past or recent CMV infection. Testing performed by: [facility], [address] [place] [address]., [id number] CMV IgM Negative Negative [facility] Comment: Interpretive Data Negative - Negative CMV IgM results suggests that the patient is not experiencing acute or active infection. However, a negative result does not rule-out primary CMV infection. Equivocal - Equivocal results may occur during acute infection or may be due to nonspecific binding reactions. Submit an additional sample for testing if clinically indicated. Positive - Positive CMV IgM results may indicate a recent infection (primary, reactivation, or reinfection). Testing performed by: [facility], [address] [place] [address]., [id number] Blood 04/05/2024 10:4 7 AM CDT 04/05/2024 9:02 PM CDT us Shanezalejandroa Smooth Ahmad LAB MICROBIOLOGY - GENERA L ORDERABLES Final Result [facility] [address] Department of Laboratories [place], [place] [phone] * Hepatic function panel - Add on lab test (04/05/2024 9:46 AM CDT) Acceptable Yes Blood 04/05/2024 9:46 AM CDT 04/05/2024 9:46 AM CDT Narrative [facility] - 04/05/2024 9:46 AM CDT Name of Test->Hepatic function panel Jeanie Richard PA LAB BLOOD ORDERABLES Final Re sult Performing Organization Address [facility] Co de Phone Number [facility] [address] [facility] Robert Applebaum MD [place], [place] [phone] * Phosphorus - Add on lab test (04/05/2024 9:10 AM CDT) Acceptable Yes Blood 04/05/2024 9:10 AM CDT 04/05/2024 9:10 AM CDT Narrative [facility] - 04/05/2024 9:10 AM CDT Name of Test->Phosphorus [facility] Sm[facility] Ahmad DO LAB BLOOD ORDERABLES Amanda l Result Performing Organization Address [facility] Co de Phone Number [facility] [address] [facility] Robert Applebaum MD [place], [place] [phone] * Magnesium - Add on lab test (04/05/2024 9:10 AM CDT) Pathologist [facility] Acceptable Yes Blood 04/05/2024 9:10 AM CDT 04/05/2024 9:10 AM CDT Narrative [facility] 04/05/2024 9:10 AM CDT Name of Test->Magnesium [facility] Smooth Ahmad DO LAB BLOOD ORDERABLES Amanda l Result Performing Organization Address [facility] Co de Phone Number [facility] [address] Department Robert Applebaum MD [place], [place] [phone] * (ABNORMAL) Hepatic function panel (04/05/2024 6:59 AM CDT) [facility] Bilirubin, total 0.5 0.1 - 1.2 mg/dL Bilirubin, direct 0.2 0.1 - 0.3 mg/dL [facility] Protein, pl 7.4 6.5 - 8.5 g/dL [facility] Albumin 4.2 3.5 - 5.0 g/dL [facility] Alk phos 87 40 - 130 Units/L [facility] ALT 48(H) 7 - 45 Units/L [facility] AST 33 10 - 45 Units/L [facility] Blood 04/05/2024 6:59 AM CDT 04/05/2024 7:27 AM CDT Joannea Smooth Ahmad DO LAB BLOOD ORDERABLES Amanda l Result Performing Organization Address City/[facility] Co de Phone Number [facility] [address] [facility] Robert Applebaum MD [place], [place] [phone] * Magnesium (04/05/2024 6:59 AM CDT) [facility] Magnesium 1.9 1.4 - 2.5 mg/dL Blood 04/05/2024 6:59 AM CDT 04/05/2024 7:27 AM CDT [facility] Smooth Ahmad DO LAB BLOOD ORDERABLES Amanda l Result Performing Organization Address [facility] Co de Phone Number [facility] [address] Department Robert Applebaum MD [place], [place] [phone] * (ABNORMAL) Phosphorus (04/05/2024 6:59 AM CDT) [facility] Phosphorus, pl 1.4(L) 2.3 - 4.5 mg/dL Comment:Spoke to: Loretta (RN ) @ 1009 Blood 04/05/2024 6:59 AM CDT 04/05/2024 7:27 AM CDT Masooda Smooth Ahmad DO LAB BLOOD ORDERABLES Amanda l Result Performing Organization Address [facility] Co de Phone Number [facility] [address] [facility] Robert Applebaum MD [place], [place] [phone] * eGFR (04/05/2024 6:59 AM CDT) [facility] eGFR >90 >=60 mL/min/1. 73 m2 Comment: [...] interpretive data was last reviewed 2021. Blood 04/05/2024 6:59 AM CDT 04/05/2024 7:27 AM CDT us Bazgha Smooth Ahmad DO LAB BLOOD ORDERABLES Amanda l Result [facility] [address] Department [place] [address] * (ABNORMAL) Basic metabolic panel (04/05/2024 6:59 AM CDT) Sodium 136 135 - 145 mmol/L Potassium, pl 3.4 3.3 - 4.9 mmol/L [facility] Chloride 99 97 - 110 mmol/L [facility] CO2 21(L) 22 - 32 mmol/L [facility] Anion gap 16(H) 2 - 15 mmol/L [facility] BUN 11 6 - 25 mg/dL [facility] Creatinine 0.73 0.60 - 1.10 mg/dL [facility] Glucose 104 70 - 199 mg/dL [facility] Comment: Interpretive Data Fasting glucose [...] interpretive data was last revised 2022. Calcium 9.2 8.5 - 10.3 mg/dL [facility] Blood 04/05/2024 6:59 AM CDT 04/05/2024 7:[address] [facility] LAB BLOOD ORDERABLES Amanda l Result Performing Organization Address City/[facility]/ZIP Co de Phone Number [facility] [address] [place] [address] * C. difficile testing Stool (04/05/2024 5:32 AM CDT) [facility] Result Negative Negative Toxin Result Negative Negative [facility] C. diff result Negative, free toxin Negative, free toxin [facility] C. diff interp Negative for toxigenic Clostridioides (Clostridium) difficile. Analysis was performed using a glutamate dehydrogenase antigen detection assay combined with a C. difficile toxin detection assay. [facility] Stool 04/05/2024 5:32 AM CDT 04/05/2024 5:46 AM CDT [facility] Smooth [employer] LAB MICROBIOLOGY - GENERA L ORDERABLES Final Result Performing Organization Address City/[facility]/ZIP Co de Phone Number [facility] [address] Department [place] [address] * Phosphorus - Add on lab test (2024 1:56 PM CDT) Acceptable Yes Blood 2024 1:56 PM CDT 2024 1:56 PM CDT Narrative [facility] - 2024 1:56 PM CDT Name of Test->Phosphorus Masoodlayla Smooth Ahmad DO LAB BLOOD ORDERABLES Amanda l Result [facility] [address] [facility] [place] [address] * Magnesium - Add on lab test (2024 1:56 PM CDT) Acceptable Yes Blood 2024 1:56 PM CDT 2024 1:56 PM CDT Narrative [facility] 2024 1:56 PM CDT Name of Test->Magnesium Masoodlayla Smooth Polomad DO LAB BLOOD ORDERABLES Amanda l Result Performing Organization Address [facility] Co de Phone Number [facility] [address] [facility] [place] [address] * Hepatic function panel - Add on lab test (2024 11:51 AM CDT) Acceptable Yes Blood 2024 11:5 1 AM CDT 2024 11:51 AM CDT Narrative [facility] - 2024 11:51 AM CDT Name of Test->Hepatic function panel Jeanie GONZALEZ LAB BLOOD ORDERABLES Final Re sult Performing Organization Address City/[facility]/ZIP Co de Phone Number [facility] [address] Department [place] [address] * Magnesium (2024 7:13 AM CDT) Magnesium 2.2 1.4 - 2.5 mg/dL Blood 2024 7:13 AM CDT 2024 7:[address] [facility] LAB BLOOD ORDERABLES Amanda l Result [facility] [address] [facility] [place] [address] * Phosphorus (2024 7:13 AM CDT) Pathologist [facility] Phosphorus, pl 4.2 2.3 - 4.5 mg/dL Blood 2024 7:13 AM CDT 2024 7:56 AM CDT [facility] DO LAB BLOOD ORDERABLES Amanda l Result Performing Organization Address City/[facility]/ZIP Co de Phone Number [facility] [address] [facility] [place] [address] * (ABNORMAL) Hepatic function panel (2024 7:13 AM CDT) Bilirubin, total 0.4 0.1 - 1.2 mg/dL Bilirubin, direct <0.2 0.1 - 0.3 mg/dL [facility] Comment:Moderately Hemolyzed Specimen Protein, pl 7.7 6.5 - 8.5 g/dL [facility] Albumin 4.1 3.5 - 5.0 g/dL [facility] Alk phos 94 40 - 130 Units/L [facility] ALT 58(H) 7 - 45 Units/L [facility] Comment:Moderately Hemolyzed Specimen AST 57(H) 10 - 45 Units/L [facility] Comment:Moderately Hemolyzed Specimen Blood 2024 7:13 AM CDT 2024 7:56 AM CDT us Nicholas Smooth Ahmad DO LAB BLOOD ORDERABLES Amanda l Result Performing Organization Address [facility] Co de Phone Number [facility] [address] [place] [place] [address] * eGFR (2024 7:13 AM CDT) eGFR >90 >=60 mL/min/1. 73 [...] interpretive data was last reviewed 2021. Blood 2024 7:13 AM CDT 2024 7:56 AM CDT Bazgha Smooth Ahmad DO LAB BLOOD ORDERABLES Amanda l Result Performing Organization Address [facility] Co de Phone Number [facility] [address] Department [place] [address] * (ABNORMAL) Basic metabolic panel (2024 7:13 AM CDT) Sodium 135 135 - 145 mmol/L Potassium, pl 4.5 3.3 - 4.9 mmol/L [facility] Comment:Hemolyzed; potassium value may be falsely elevated by as much as 0.6 - 1.0 mmol/L. Suggest redraw and reanalysis Chloride 97 97 - 110 mmol/L [facility] CO2 22 22 - 32 mmol/L [facility] Anion gap 16(H) 2 - 15 mmol/L [facility] BUN 10 6 - 25 mg/dL [facility] Creatinine 0.74 0.60 - 1.10 mg/dL [facility] Glucose 98 70 - 199 mg/dL [facility] Comment: Interpretive Data Fasting glucose [...] interpretive data was last revised 2022. Calcium 9.8 8.5 - 10.3 mg/dL [facility] Blood 2024 7:13 AM CDT 2024 7:56 AM CDT us Bazgha Smooth Ahmad DO LAB BLOOD ORDERABLES Amanda l Result [facility] [address] Department [place] [address] * CT Abdomen Pelvis W Contrast (04/03/2024 1:54 PM CDT) Anatomical Region Laterality Modality Body N/A Computed Tomogra phy 04/03/2024 2:08 PM CDT Impressions 04/03/2024 2:08 PM CDT 1.Small appendix without inflammation. ??No pericecal inflammation. Retained stool within partially decompressed ascending colon with mild wall thickening and prominence of submucosal low density without adjacent inflammation. ??Findings similar appearance compared to prior study may suggest history of recurrent colonic inflammation or inflammatory bowel disease. ??Remainder colon decompressed without inflammation. ??No acute colonic inflammation at this time. 2. ??Focal fatty infiltration anterior medial segment IVb left lobe liver new since prior study. 3. ??No gallstones or wall thickening or gallbladder inflammation. 4. ??1.8 x 1.4 cm fluid and air collection within the subcutaneous fat right anterior pelvis may represent subcutaneous medication injection site. Electronically signed by: Jovanna Read M.D. Narrative 04/03/2024 2:[address] ABDOMEN AND PELVIS WITH CONTRAST DATE: 04/03/2024 1:10 PM INDICATION: Nausea/vomiting TECHNIQUE: ??Helical images of the abdomen and pelvis were performed in the axial plane with IV contrast. ??72 cc's of Optiray 350 was administered. ??Patient creatinine is 0.81 with GFR greater than 90. COMPARISON: 10/18/2023 FINDINGS: ??Visualized left and right lower lung clear. CT Abdomen and Pelvis: Focal low-density anterior medial segment 4B left lobe liver may represent focal fatty infiltration. ??Remainder liver, spleen, adrenal glands and pancreas unremarkable. ??Distended gallbladder without stones or wall thickening. Retained air and food or fluid within incompletely distended stomach. No small bowel dilatation. ??Colon is partially decompressed with wall thickening and diverticulosis. ??There is mild thickening of the wall of ascending colon with prominent submucosal low-density suggesting history of recurrent colonic inflammation or inflammatory bowel disease. ??This is similar compared to prior study. ??No acute colonic inflammation at this time. ??Small appendix without inflammation. ??No pericecal inflammation. ??There are small lymph nodes right lower quadrant adjacent to cecum may represent mild mesenteric adenitis unchanged. ??There is a oval radiopaque density within the cecal lumen uncertain significance. Remainder colon including rectum decompressed with diverticulosis without diverticulitis. Abdominal aorta unremarkable. ??No significant retroperitoneal adenopathy. Lobular contouring of both kidneys without abnormal calcification or urinary obstruction. ??Bladder incompletely distended. ??Anteverted uterus right posterior pelvis. ??No ascites. ??Small inguinal lymph nodes. ??Small fat-containing umbilical hernia. There is a 1.8 x 1.4 cm low-density fluid collection contains specks of air within the subcutaneous fat right anterior pelvis (series 2 image 97). ??This may be secondary to subcutaneous medication injection site. ??Unchanged focal subcutaneous calcification left lateral pelvis. Mild multilevel degenerative endplate changes lumbar spine. Procedure Note Jovanna Read MD - 04/03/2024 CT ABDOMEN AND PELVIS WITH CONTRAST DATE: 04/03/2024 1:10 PM INDICATION: Nausea/vomiting TECHNIQUE: Helical images of the abdomen and pelvis were performed in the axial plane with IV contrast. 72 cc's of Optiray 350 was administered. Patient creatinine is 0.81 with GFR greater than 90. COMPARISON: 10/18/2023 FINDINGS: Visualized left and right lower lung clear. CT Abdomen and Pelvis: Focal low-density anterior medial segment 4B left lobe liver may represent focal fatty infiltration. Remainder liver, spleen, adrenal glands and pancreas unremarkable. Distended gallbladder without stones or wall thickening. Retained air and food or fluid within incompletely distended stomach. No small bowel dilatation. Colon is partially decompressed with wall thickening and diverticulosis. There is mild thickening of the wall of ascending colon with prominent submucosal low-density suggesting history of recurrent colonic inflammation or inflammatory bowel disease. This is similar compared to prior study. No acute colonic inflammation at this time. Small appendix without inflammation. No pericecal inflammation. There are small lymph nodes right lower quadrant adjacent to cecum may represent mild mesenteric adenitis unchanged. There is a oval radiopaque density within the cecal lumen uncertain significance. Remainder colon including rectum decompressed with diverticulosis without diverticulitis. Abdominal aorta unremarkable. No significant retroperitoneal adenopathy. Lobular contouring of both kidneys without abnormal calcification or urinary obstruction. Bladder incompletely distended. Anteverted uterus right posterior pelvis. No ascites. Small inguinal lymph nodes. Small fat-containing umbilical hernia. There is a 1.8 x 1.4 cm low-density fluid collection contains specks of air within the subcutaneous fat right anterior pelvis (series 2 image 97). This may be secondary to subcutaneous medication injection site. Unchanged focal subcutaneous calcification left lateral pelvis. Mild multilevel degenerative endplate changes lumbar spine. IMPRESSION: 1.Small appendix without inflammation. No pericecal inflammation. Retained stool within partially decompressed ascending colon with mild wall thickening and prominence of submucosal low density without adjacent inflammation. Findings similar appearance compared to prior study may suggest history of recurrent colonic inflammation or inflammatory bowel disease. Remainder colon decompressed without inflammation. No acute colonic inflammation at this time. 2. Focal fatty infiltration anterior medial segment IVb left lobe liver new since prior study. 3. No gallstones or wall thickening or gallbladder inflammation. 4. 1.8 x 1.4 cm fluid and air collection within the subcutaneous fat right anterior pelvis may represent subcutaneous medication injection site. Electronically signed by: Jovanna Read M.D. Jeanie GONZALEZ IM CT PROCEDURES Final Resul t * eGFR (04/03/2024 11:19 AM CDT) eGFR >90 >=60 mL/min/1. 73 [...] interpretive data was last reviewed 2021. Blood 04/03/2024 11:1 9 AM CDT 04/03/2024 11:56 AM CDT Nicholas Rebollar Ahmad DO LAB BLOOD ORDERABLES Amanda l Result Performing Organization Address City/[facility]/ZIP Co de Phone Number [facility] [address] Department [place] [address] * (ABNORMAL) Basic metabolic panel (04/03/2024 11:19 AM CDT) Sodium 136 135 - 145 mmol/L Potassium, pl 4.0 3.3 - 4.9 mmol/L [facility] Chloride 99 97 - 110 mmol/L [facility] CO2 20(L) 22 - 32 mmol/L [facility] Anion gap 17(H) 2 - 15 mmol/L [facility] BUN 11 6 - 25 mg/dL [facility] Creatinine 0.81 0.60 - 1.10 mg/dL [facility] Glucose 97 70 - 199 mg/dL [facility] Comment: Interpretive Data Fasting glucose [...] interpretive data was last revised 2022. Calcium 9.5 8.5 - 10.3 mg/dL [facility] Blood 04/03/2024 11:1 9 AM CDT 04/03/2024 11:56 AM CDT Baza Smooth Ahmad DO LAB BLOOD ORDERABLES Amanda l Result Performing Organization Address City/[facility]/ZIP Co de Phone Number [facility] [address] Department [place] [address] * MRI Brain W WO Contrast (04/02/2024 11:17 PM CDT) Anatomical Region Laterality Modality Head and Neck N/A Magnetic Resonan ce 04/03/2024 9:24 AM CDT Impressions 04/03/2024 9:43 AM CDT 1. No acute intracranial abnormality or finding to explain the patient's symptoms. 2. Enlargement and hyperenhancement of the palatine tonsils, which can be seen in the setting of pharyngitis/tonsillitis. Recommend correlation with symptoms. Dictated by: Magali Ruiz MD ??PHD The radiology attending physician has personally reviewed this study, and had reviewed and/or edited this written report and agrees with it. Electronically signed by: Mario Nunez M.D. Narrative 04/03/2024 9:43 AM CDT EXAMINATION: Magnetic resonance imaging (MRI) of the brain and brainstem without and with contrast HISTORY: Intractable nausea and vomiting. TECHNIQUE: Multiplanar multi-weighted MRI of the brain and brainstem was performed without and with intravenous contrast using the general brain protocol. Contrast information: 10 mL Dotarem COMPARISON: None available. FINDINGS: The scalp and calvarium are normal. ?? The superior sagittal sinus demonstrates normal venous flow. ??The corpus callosum is normal in shape and signal intensity. ??The posterior fossa is unremarkable. The pituitary and sella are normal. ??The brainstem and craniocervical junction are unremarkable. Diffusion weighted images reveal no hyperintensities to suggest acute cerebral infarction. ??The susceptibility weighted sequences reveal no evidence of acute or chronic hemorrhage. ??The ventricles are normal in size and position without evidence of hydrocephalus . There are no areas of abnormal contrast enhancement. The palatine tonsils are enlarged and hyperenhancing. The paranasal sinuses are normal. ??The visualized portions of the mastoids are unremarkable. ??The orbits appear normal. ??Normal flow voids are demonstrated in the carotid arteries and basilar artery. Procedure Note Mario Nunez MD - 04/03/2024 EXAMINATION: Magnetic resonance imaging (MRI) of the brain and brainstem without and with contrast HISTORY: Intractable nausea and vomiting. TECHNIQUE: Multiplanar multi-weighted MRI of the brain and brainstem was performed without and with intravenous contrast using the general brain protocol. Contrast information: 10 mL Dotarem COMPARISON: None available. FINDINGS: The scalp and calvarium are normal. The superior sagittal sinus demonstrates normal venous flow. The corpus callosum is normal in shape and signal intensity. The posterior fossa is unremarkable. The pituitary and sella are normal. The brainstem and craniocervical junction are unremarkable. Diffusion weighted images reveal no hyperintensities to suggest acute cerebral infarction. The susceptibility weighted sequences reveal no evidence of acute or chronic hemorrhage. The ventricles are normal in size and position without evidence of hydrocephalus . There are no areas of abnormal contrast enhancement. The palatine tonsils are enlarged and hyperenhancing. The paranasal sinuses are normal. The visualized portions of the mastoids are unremarkable. The orbits appear normal. Normal flow voids are demonstrated in the carotid arteries and basilar artery. IMPRESSION: 1. No acute intracranial abnormality or finding to explain the patient's symptoms. 2. Enlargement and hyperenhancement of the palatine tonsils, which can be seen in the setting of pharyngitis/tonsillitis. Recommend correlation with symptoms. Dictated by: Magali Ruiz MD PHD The radiology attending physician has personally reviewed this study, and had reviewed and/or edited this written report and agrees with it. Electronically signed by: Mario Nunez M.D. Bazgha Smooth Ahmad DO G MRI PROCEDURES Final Result * Respiratory pathogen panel Nasopharyngeal (04/02/2024 12:54 PM CDT) Influenza A RNA Not Detected Not Detected [facility] Influenza B RNA Not Detected Not Detected [facility] RSV RNA Not Detected Not Detected [facility] COVID-19 RNA Not Detected Not Detected [facility] Coronavirus 229E RNA Not Detected Not Detected [facility] Coronavirus HKU1 RNA Not Detected Not Detected [facility] Coronavirus NL63 RNA Not Detected Not Detected [facility] Coronavirus OC43 RNA Not Detected Not Detected [facility] Adenovirus DNA Not Detected Not Detected [facility] Metapneumovirus RNA Not Detected Not Detected [facility] Rhinovirus/Enterov irus RNA Not Detected Not Detected [facility] Parainfluenza 1 RNA Not Detected Not Detected [facility] Parainfluenza 2 RNA Not Detected Not Detected [facility] Parainfluenza 3 RNA Not Detected Not Detected [facility] Parainfluenza 4 RNA Not Detected Not Detected [facility] B. pertussis DNA Not Detected Not Detected [facility] B. parapertussis DNA Not Detected Not Detected [facility] C. pneumoniae DNA Not Detected Not Detected [facility] M. pneumoniae DNA Not Detected Not Detected [facility] Comment: Interpretive Data The [employer] FilmArray Respiratory Panel (RP2.1) assay is a multiplexed real-time PCR based nucleic acid test capable of simultaneous qualitative detection and identification of multiple respiratory viral and bacterial nucleic acids, including SARS Coronavirus 2 (the causative agent of COVID-19). The following bacteria, viruses and virus subtypes can be identified using the FilmArray RP2.1 assay: Bordetella pertussis, Bordetella parapertussis, Chlamydia pneumoniae, Mycoplasma pneumoniae, Adenovirus, SARS Coronavirus 2, seasonal coronaviruses (Coronavirus HKU1, Coronavirus NL63, Coronavirus 229E, and Coronavirus OC43), Influenza A, Influenza A subtype H1, Influenza A subtype H3, Influenza A subtype 2009 H1, Influenza B, Metapneumovirus, Parainfluenza 1, Parainfluenza 2, Parainfluenza 3, Parainfluenza 4, RSV, Rhinovirus/Enterovirus. Due to the genetic similarity between human Rhinovirus and Enterovirus, the FilmArray RP2.1 assay cannot reliably differentiate them. Coronavirus OC43 may cross-react with some isolates of Coronavirus HKU1. ??A dual positive result may be due to cross-reactivity or may indicate a co-infection. The detection and identification of specific viral and bacterial nucleic acids from individuals exhibiting signs and symptoms of a respiratory infection aids in the diagnosis of respiratory infection if used in conjunction with other clinical and epidemiological information. ??The results of this test should not be used as the sole basis for diagnosis, treatment, or other management decisions. ??Negative results in the setting of a respiratory illness may be due to infection with pathogens that are not detected by this test. ??Positive results do not rule out infection/co-infection with other organisms. ??The agent(s) detected by the FilmArray RP2.1 may not be the definite cause of disease. ??Additional testing (lab, imaging, etc.) may be necessary when evaluating a patient with possible respiratory tract infection. The FilmArray RP2.1 assay has FDA clearance for testing of SUPPORT STAFF swabs. ??The performance characteristics of this assay have been determined by [facility]. Current interpretive data was last revised on 2021. Nasopharyngeal 04/02/2024 12 :54 PM CDT 04/02/2024 1:14 PM CDT Narrative [facility] - 04/02/2024 2:06 PM CDT Is the Patient experiencing symptoms consistent with COVID?->Yes Surveillance testing for transplant patient?->No [facility] Ahmad DO LAB MICROBIOLOGY - GENERA L ORDERABLES Final Result Performing Organization Address City/[facility]/ZIP Co de Phone Number [facility] [address] [place] [address] MBC * Cortisol - Add on lab test (04/02/2024 10:42 AM CDT) Acceptable Yes Blood 04/02/2024 10:4 2 AM CDT 04/02/2024 10:42 AM CDT Narrative [facility] 04/02/2024 10:43 AM CDT Name of Test->Cortisol [facility] DO LAB BLOOD ORDERABLES Amanda l Result [facility] [address] Department [place] [address] * TSH reflex Free T4 - Add on lab test (04/02/2024 10:42 AM CDT) Acceptable Yes Blood 04/02/2024 10:4 2 AM CDT 04/02/2024 10:42 AM CDT Narrative [facility] 04/02/2024 10:43 AM CDT Name of Test->TSH reflex Free T4 us Bazgha Smooth Ahmad DO LAB BLOOD ORDERABLES Amanda pierce Result [facility] [address] Department [place] [address] * US Abdomen Limited (04/02/2024 8:01 AM CDT) Anatomical Region Laterality Modality Abdomen N/A Ultrasound 04/02/2024 8:27 AM CDT Impressions 04/02/2024 8:27 AM CDT 1. Hepatic steatosis. 2. Otherwise normal right upper quadrant sonogram. Electronically signed by: Osei Felipe M.D. Narrative 04/02/2024 8:27 AM CDT EXAM: US ABDOMEN LIMITED CLINICAL HISTORY: Chest and abdominal pain. COMPARISON: ??CT of the abdomen dated 10/18/2023. FINDINGS: Liver: There is diffuse increased echogenicity throughout the liver compatible with fatty infiltration. No discrete liver mass is identified. Gallbladder: The gallbladder is within normal limits. No gallstones are identified. Bile ducts: There is no evidence of biliary ductal dilatation. The common bile duct measures 3 mm in greatest diameter. Pancreas: The visualized portions of the pancreas are unremarkable. Portal vein and inferior vena cava: Patent and within normal limits. Procedure Note Osei Felipe MD - 04/02/2024 EXAM: US ABDOMEN LIMITED CLINICAL HISTORY: Chest and abdominal pain. COMPARISON: CT of the abdomen dated 10/18/2023. FINDINGS: Liver: There is diffuse increased echogenicity throughout the liver compatible with fatty infiltration. No discrete liver mass is identified. Gallbladder: The gallbladder is within normal limits. No gallstones are identified. Bile ducts: There is no evidence of biliary ductal dilatation. The common bile duct measures 3 mm in greatest diameter. Pancreas: The visualized portions of the pancreas are unremarkable. Portal vein and inferior vena cava: Patent and within normal limits. IMPRESSION: 1. Hepatic steatosis. 2. Otherwise normal right upper quadrant sonogram. Electronically signed by: Osei Felipe M.D. Bruno Cobb MD [facility] US PROCEDURES F inal Result * XR Kub (04/01/2024 5:48 PM CDT) Anatomical Region Laterality Modality Body, Abdomen N/A Computed Radiogr aphy 04/01/2024 5:52 PM CDT Impressions 04/01/2024 5:52 PM CDT There is a nonobstructing bowel gas pattern. ??There are no dilated loops of large or small bowel to suggest obstruction. Electronically signed by: Yosef Lopez M.D., MPH Narrative 04/01/2024 5:52 PM CDT EXAMINATION: XR KUB Procedure Note Yosef Lopez MD - 04/01/2024 EXAMINATION: XR KUB IMPRESSION: There is a nonobstructing bowel gas pattern. There are no dilated loops of large or small bowel to suggest obstruction. Electronically signed by: Yosef Lopez M.D., MPH Bruno Cobb MD [facility] XR PROCEDURES F inal Result * Surgical pathology (04/01/2024 3:14 PM CDT) Tissue (Gastric/Stomach biopsy) 04/01/2024 3:14 PM CDT Comment:Rule out H Pylori Narrative PATHOLOGY [facility] - 04/02/2024 10:59 AM CDT [address] ??[address] Tele: ?? Kisha Parks MD - Him Manager Note to Patients: This report may [...] REPORT Patient Name: ??ÁNGELA IBRAHIM Address: ??[address] [place] ??[id number] Gender: ??F : ??1985 (Age: 38) Service: ??Medical Location: ??[id number], ?? Hospital #: ??[id number] Patient Type: ??[facility] INPATIENT Accession #: ? [id number] Taken: ? 04/01/2024 Received ? 04/01/2024 Reported: ? 04/02/2024 Physician(s): ? Humaira Silver M.D. DIAGNOSIS: Stomach, biopsy: ? - Mild chronic active gastritis b/04/02/2024 10:59 Examining Pathologist: Dorinda Templeton M.D. Report Reviewed and Electronically Signed By ??Dorinda Templeton M.D. SPECIMEN TYPE: A: GASTRIC BX CLINICAL IMPRESSION AND HISTORY: Epigastric abdominal pain and vomiting. ??Upper endoscopy shows normal-appearing mucosa. GROSS DESCRIPTION: Received in formalin in a single container with the patient's name, ÁNGELA IBRAHIM ??labeled gastric biopsy and contains three tissue fragments measuring 0.9 x 0.2 x 0.1 cm in aggregate. Due to the color and size of the specimen, hematoxylin is used. The specimen is filtered and submitted entirely in cassette A1. ?? JAP,CUH MICROSCOPIC DESCRIPTION: Sections of the gastric biopsy show patchy, mild acute and chronic inflammation. ??Intestinal metaplasia is not present. ??Helicobacter-like organisms are not identified on H&E stained sections. Clerical Data Follows A; [id number] REPORT IMAGES AND/OR SCANNED DOCUMENTS ONLY VIEWABLE IN PDF FORMAT The immunohistochemical test(s) cited in this report, if any, was developed and its performance characteristics determined by [facility] Pathology Department. ??It has not been cleared or approved by the U.S. Food and Drug Administration. ??The FDA has determined that such clearance or approval is not necessary. ??This test is used for clinical purposes. ??It should not be regarded as investigational or for research. ??[facility] Laboratory is certified under the Clinical Laboratory [...] anti-Her-2/christel (4B5) (rabbit monoclonal primary antibody). us Bruno Cobb MD LAB PATHOLOGY ORDER SHARON Final Result PATHOLOGY [facility] Laboratory Receiving [address] [place] [address] * EGD (04/01/2024 3:02 PM CDT) Anatomical Region Laterality Modality Other Narrative Procedure Note Bruno Cobb MD - 04/01/2024 3:02 PM CDT ENDOSCOPY LAB Patient Name: Ángela Ibrahim Procedure Date: 04/01/2024 3:02 PM Admit Type: Inpatient Room: Endo 2 Date of : 1985 Instrument Name: [id number] Gender: Female Note Status: Finalized Procedure: Upper GI endoscopy Indications: Epigastric abdominal pain, Vomiting Providers: Bruno Cobb M.D. Referring MD: Maurice Duff M.D. Medicines: Propofol per Anesthesia Complications: No immediate complications. Estimated Blood Loss: Estimated blood loss: none. Procedure: Pre-Anesthesia Assessment: - After reviewing the risks and benefits, thepatient was deemed in satisfactory condition to undergo the procedure. The benefits, risks, and alternatives to theprocedure and sedation were discussed and informed consentwas obtained. The scope was passed under direct vision. The Endoscope was introduced through the mouth, and advanced to the second part of duodenum. The upperGI endoscopy was accomplished without difficulty. The patient tolerated the procedure well. Findings: The examined esophagus was normal. The entire examined stomach was normal. Biopsies were taken with acold forceps for Helicobacter pylori testing. The examined duodenum was normal. Impression: - Normal esophagus. - Normal stomach. Biopsied. - Normal examined duodenum. Recommendation: - Await pathology results. - Clear liquid diet. - Obtain KUB and RUQ ultrasound Dr. Bruno Cobb Bruno Cobb M.D. 04/01/2024 3:20:45 PM This document was signed electronically. Number of Addenda: 0 Note Initiated On: 04/01/2024 3:02 PM Scope In: Scope Out: us Bruno Cobb MD ENDOSCOPY PROCEDURE S Final Result * POCT hCG, urine (04/01/2024 2:05 PM CDT) HCG, ur, POC Negative Negative Lot Number [id number] QC Backgroud Clear Acceptable QC Control Line Acceptable Urine 04/01/2024 2:05 PM CDT Bruno Cobb MD POINT OF CARE TEST ORDERABLES Final Result * Hemoglobin A1c (04/01/2024 7:09 AM CDT) Pathologist [facility] Hgb A1C 5.6 4.0 - 5.6 % Estimated Average Glucose 114 mg/dL [facility] Comment: The ADA recommends reporting an estimated Average Glucose (eAG) with all Hemoglobin A1c results using the equation derived from a study of 507 normal and diabetic adults. ??Minority populations were underrepresented and children were not included. ?? (Diabetes Care 31:2056-8009, 2008). ??The eAG is not equivalent to a fasting glucose. Blood 04/01/2024 7:09 AM CDT 04/01/2024 8:02 AM CDT [facility] LAB BLOOD ORDERABLES Amanda l Result Performing Organization Address City/[facility]/ZIP Co de Phone Number [facility] [address] [place] [address] * Thyroid Function Niotaze (04/01/2024 7:09 AM CDT) [facility] TSH 1.85 0.30 - 4.20 mcIUnit/mL Blood 04/01/2024 7:09 AM CDT 04/01/2024 8:01 AM CDT [facility] DO LAB BLOOD ORDERABLES Amanda l Result [facility] [address] Department [place] [address] * Cortisol (04/01/2024 7:09 AM CDT) [facility] Cortisol 14.1 4.8 - 19.5 mcg/dl Blood 04/01/2024 7:09 AM CDT 04/01/2024 8:01 AM CDT us Nicholas Rebollar Ahmad DO LAB BLOOD ORDERABLES Amanda l Result Performing Organization Address [facility]/ZIP Co de Phone Number SONIA [facility] [address] [place] [place] [address] * eGFR (04/01/2024 7:09 AM CDT) eGFR >90 >=60 mL/min/1. 73 [...] interpretive data was last reviewed 2021. Blood 04/01/2024 7:09 AM CDT 04/01/2024 8:01 AM CDT us Jonathan Scruggs MD LAB BLOOD ORDERABLES Fi nal Result Performing Organization Address City/[facility]/ZIP Co de Phone Number SON[facility] [address] [place] [address] * Differential, auto (04/01/2024 7:09 AM CDT) Neutrophil abs 2.3 1.5 - 6.5 K/cumm Imm gran abs 0.0 0.0 - 0.1 K/cumm [facility] Lymphocyte abs 3.1 0.8 - 3.3 K/cumm [facility] Monocyte abs 0.6 0.2 - 0.8 K/cumm [facility] Eosinophil abs 0.3 0.0 - 0.5 K/cumm [facility] Basophil abs 0.0 0.0 - 0.1 K/cumm [facility] Neutrophil pct 36.6 % [facility] Comment: Interpretive Data Percent cell count reference ranges are not reported, since discordance with absolute values may lead to misinterpretation of CBC data. Current Interpretive Data was last revised on 2017. Imm gran pct 0.2 % [facility] Comment: Interpretive Data Percent cell count reference ranges are not reported, since discordance with absolute values may lead to misinterpretation of CBC data. Current Interpretive Data was last revised on 2017. Lymphocyte pct 49.4 % [facility] Comment: Interpretive Data Percent cell count reference ranges are not reported, since discordance with absolute values may lead to misinterpretation of CBC data. Current Interpretive Data was last revised on 2017. Monocyte pct 9.2 % [facility] Comment: Interpretive Data Percent cell count reference ranges are not reported, since discordance with absolute values may lead to misinterpretation of CBC data. Current Interpretive Data was last revised on 2017. Eosinophil pct 4.0 % [facility] Comment: Interpretive Data Percent cell count reference ranges are not reported, since discordance with absolute values may lead to misinterpretation of CBC data. Current Interpretive Data was last revised on 2017. Basophil pct 0.6 % [facility] Comment: Interpretive Data Percent cell count reference ranges are not reported, since discordance with absolute values may lead to misinterpretation of CBC data. Current Interpretive Data was last revised on 2017. Blood 04/01/2024 7:09 AM CDT 04/01/2024 8:02 AM CDT Jonathan Scruggs MD LAB BLOOD ORDERABLES Fi nal Result [facility] [address] Department [place] [address] * Comprehensive metabolic panel (04/01/2024 7:09 AM CDT) Sodium 137 135 - 145 mmol/L Potassium, pl 4.0 3.3 - 4.9 mmol/L [facility] Chloride 105 97 - 110 mmol/L [facility] CO2 22 22 - 32 mmol/L [facility] Anion gap 10 2 - 15 mmol/L [facility] BUN 6 6 - 25 mg/dL [facility] Creatinine 0.75 0.60 - 1.10 mg/dL [facility] Glucose 71 70 - 199 mg/dL [facility] Comment: Interpretive Data Fasting glucose [...] interpretive data was last revised 2022. Calcium 8.9 8.5 - 10.3 mg/dL [facility] Bilirubin, total 0.4 0.1 - 1.2 mg/dL [facility] Protein, pl 6.5 6.5 - 8.5 g/dL [facility] Albumin 3.6 3.5 - 5.0 g/dL [facility] Alk phos 76 40 - 130 Units/L [facility] ALT 30 7 - 45 Units/L [facility] AST 25 10 - 45 Units/L [facility] Blood 04/01/2024 7:09 AM CDT 04/01/2024 8:01 AM CDT Jonathan Scruggs MD LAB BLOOD ORDERABLES Fi nal Result Performing Organization Address [facility] Co de Phone Number [facility] [address] [place] [address] * CBC with auto differential (04/01/2024 7:09 AM CDT) [facility] WBC 6.3 3.8 - 9.9 K/cumm Hgb 12.5 11.9 - 15.5 g/dL [facility] Hct 38.2 35.6 - 45.5 % [facility] Plt 334 150 - 400 K/cumm [facility] MPV 10.7 9.1 - 12.3 fL [facility] RBC 4.30 3.90 - 5.20 M/cumm [facility] MCV 88.8 81.3 - 96.4 fL [facility] MCH 29.1 27.1 - 33.3 pg [facility] MCHC 32.7 32.3 - 35.7 g/dL [facility] RDW CV 13.2 11.1 - 14.9 % [facility] RDW SD 42.6 35.7 - 48.1 fL [facility] NRBC abs 0.00 0.00 - 0.01 K/cumm [facility] Blood 04/01/2024 7:09 AM CDT 04/01/2024 8:02 AM CDT Jonathan Scruggs MD LAB BLOOD ORDERABLES Fi nal Result Performing Organization Address City/[facility]/ZIP Co de Phone Number [facility] [address] Department [place] [address] * Lipase - Add on lab test (03/31/2024 12:16 PM CDT) Pathologist [facility] Acceptable Yes Blood 03/31/2024 12:1 6 PM CDT 03/31/2024 12:16 PM CDT Narrative [facility] - 03/31/2024 12:16 PM CDT Name of Test->Lipase Jonathan Scruggs MD LAB BLOOD ORDERABLES Fi nal Result Performing Organization Address [facility]/ZIP Co de Phone Number SON[facility] [address] [place] [address] * Lipase (03/31/2024 6:56 AM CDT) Pathologist [facility] Lipase 21 10 - 99 Units/L Blood 03/31/2024 6:56 AM CDT 03/31/2024 7:25 AM CDT Jonathan Scruggs MD LAB BLOOD ORDERABLES Fi paradise Result Performing Organization Address [facility] de Phone Number S[facility] [address] [place] [address] * eGFR (03/31/2024 6:56 AM CDT) [facility] eGFR >90 >=60 mL/min/1. 73 m2 Comment: [...] interpretive data was last reviewed 2021. Blood 03/31/2024 6:56 AM CDT 03/31/2024 7:25 AM CDT Sravan Marsh DO LAB BLOOD ORDERABLES F inal Result [facility] [address] Department [place] [address] * (ABNORMAL) Differential, auto (03/31/2024 6:56 AM CDT) Neutrophil abs 3.8 1.5 - 6.5 K/cumm Imm gran abs 0.0 0.0 - 0.1 K/cumm [facility] Lymphocyte abs 4.8(H) 0.8 - 3.3 K/cumm [facility] Monocyte abs 0.9(H) 0.2 - 0.8 K/cumm [facility] Eosinophil abs 0.1 0.0 - 0.5 K/cumm [facility] Basophil abs 0.0 0.0 - 0.1 K/cumm [facility] Neutrophil pct 39.3 % [facility] Comment: Interpretive Data Percent cell count reference ranges are not reported, since discordance with absolute values may lead to misinterpretation of CBC data. Current Interpretive Data was last revised on 2017. Imm gran pct 0.2 % [facility] Comment: Interpretive Data Percent cell count reference ranges are not reported, since discordance with absolute values may lead to misinterpretation of CBC data. Current Interpretive Data was last revised on 2017. Lymphocyte pct 49.3 % [facility] Comment: Interpretive Data Percent cell count reference ranges are not reported, since discordance with absolute values may lead to misinterpretation of CBC data. Current Interpretive Data was last revised on 2017. Monocyte pct 9.5 % [facility] Comment: Interpretive Data Percent cell count reference ranges are not reported, since discordance with absolute values may lead to misinterpretation of CBC data. Current Interpretive Data was last revised on 2017. Eosinophil pct 1.3 % [facility] Comment: Interpretive Data Percent cell count reference ranges are not reported, since discordance with absolute values may lead to misinterpretation of CBC data. Current Interpretive Data was last revised on 2017. Basophil pct 0.4 % [facility] Comment: Interpretive Data Percent cell count reference ranges are not reported, since discordance with absolute values may lead to misinterpretation of CBC data. Current Interpretive Data was last revised on 2017. Blood 03/31/2024 6:56 AM CDT 03/31/2024 7:25 AM CDT Sravan Marsh DO LAB BLOOD ORDERABLES F inal Result [facility] [address] Department of Laboratories [place], [place] [id number] * CBC with auto differential (03/31/2024 6:56 AM CDT) WBC 9.7 3.8 - 9.9 K/cumm Hgb 12.2 11.9 - 15.5 g/dL [facility] Hct 35.6 35.6 - 45.5 % [facility] Plt 339 150 - 400 K/cumm [facility] MPV 10.4 9.1 - 12.3 fL [facility] RBC 4.19 3.90 - 5.20 M/cumm [facility] MCV 85.0 81.3 - 96.4 fL [facility] MCH 29.1 27.1 - 33.3 pg [facility] MCHC 34.3 32.3 - 35.7 g/dL [facility] RDW CV 13.2 11.1 - 14.9 % [facility] RDW SD 41.1 35.7 - 48.1 fL [facility] NRBC abs 0.00 0.00 - 0.01 K/cumm [facility] Blood 03/31/2024 6:56 AM CDT 03/31/2024 7:25 AM CDT Sravan Marsh DO LAB BLOOD ORDERABLES F inal Result Performing Organization Address City/[facility]/ZIP Co de Phone Number [facility] [address] [employer] [place] [address] * (ABNORMAL) Basic metabolic panel (03/31/2024 6:56 AM CDT) Pathologist [facility] Sodium 137 135 - 145 mmol/L Potassium, pl 3.1(L) 3.3 - 4.9 mmol/L [facility] Chloride 103 97 - 110 mmol/L [facility] CO2 23 22 - 32 mmol/L [facility] Anion gap 11 2 - 15 mmol/L [facility] BUN 7 6 - 25 mg/dL [facility] Creatinine 0.76 0.60 - 1.10 mg/dL [facility] Glucose 80 70 - 199 mg/dL [facility] Comment: Interpretive Data Fasting glucose [...] interpretive data was last revised 2022. Calcium 8.5 8.5 - 10.3 mg/dL [facility] Blood 03/31/2024 6:56 AM CDT 03/31/2024 7:25 AM CDT Sravan Marsh DO LAB BLOOD ORDERABLES F inal Result Performing Organization Address City/[facility]/ZIP Co de Phone Number [facility] [address] [place] [address] * POCT glucose (03/30/2024 11:07 PM CDT) Glucose, POC 86 70 - 199 mg/dL Comment: For Glucose values <35 mg/dl when Hematocrit is >60 mg/dl,the test may not accurately detect significant hypoglycemia,and testing in the Laboratory should be considered if clinically indicated. Blood 03/30/2024 11:0 7 PM CDT 03/30/2024 11:07 PM CDT Sravan Marsh DO LAB POCT ORDERABLES - DEVICE Final Result Performing Organization Address [facility] Co de Phone Number SON[facility] [address] Department [place] [address] * ECG 12 lead (03/30/2024 8:40 PM CDT) 03/30/2024 8:40 PM CDT Narrative [facility] - 03/31/2024 11:40 AM CDT Vent Rate: 57 bpm RR Interval: 1035 msec AL Interval: 101 msec QRS Duration: 82 msec QT Interval: 418 msec QTC Interval: 413 msec P-R-T [place]: 48 - 32 - 49 degrees IMPRESSION: SINUS BRADYCARDIA WITH SHORT AL INTERVAL BORDERLINE ECG Electronically Signed By: Yahir Miranda ??[facility] Card Luma Payne SUPPORT STAFF ECG ORDERABLES Fin al Result Performing Organization Address [facility] de Phone Number [facility] [employer] [facility] * eGFR (03/30/2024 8:08 PM CDT) eGFR >90 >=60 mL/min/1. 73 m2 [...] interpretive data was last reviewed 2021. Blood 03/30/2024 8:08 PM CDT 03/30/2024 8:21 PM CDT Luma Payne NP LAB BLOOD ORDERABLE S Final Result [facility] [address] Department [place] [address] * Basic metabolic panel (03/30/2024 8:08 PM CDT) Sodium 141 135 - 145 mmol/L Potassium, pl 3.8 3.3 - 4.9 mmol/L [facility] Chloride 105 97 - 110 mmol/L [facility] CO2 23 22 - 32 mmol/L [facility] Anion gap 13 2 - 15 mmol/L [facility] BUN 8 6 - 25 mg/dL [facility] Creatinine 0.73 0.60 - 1.10 mg/dL [facility] Glucose 96 70 - 199 mg/dL [facility] Comment: Interpretive Data Fasting glucose [...] interpretive data was last revised 2022. Calcium 8.9 8.5 - 10.3 mg/dL [facility] Blood 03/30/2024 8:08 PM CDT 03/30/2024 8:21 PM CDT Luma Payne NP LAB BLOOD ORDERABLE S Final Result [facility] [address] Department [place] [address] * (ABNORMAL) Opiates Confirmation, Urine (03/30/2024 6:20 PM CDT) Codeine Conf, Ur Does Not Confirm CutOff 50 ng/mL Comment:Testing performed by : [facility], [address] [place] [address]., [id number] 6- Acetylmorphine Conf, Ur Does Not Confirm CutOff 10 ng/mL [facility] Comment:Testing performed by : [facility], [address] [place]., [address] Hydrocodone Conf, Ur Confirmed Positive(A) CutOff 50 ng/mL [facility] Comment:Testing performed by : [facility], [address] [place]., [address] Morphine Conf, Ur Does Not Confirm CutOff 50 ng/mL [facility] Comment:Testing performed by : [facility], [address] [place]., [address] Hydromorphone Conf, Ur Does Not Confirm CutOff 50 ng/mL [facility] Comment: Interpretive Data This test detects the presence or absence of drug compounds using LC Tandem mass spectrometry and is not intended to assess compliance with prescribed medications. While this test is highly specific, false positive and false negative results may occur in very rare circumstances. Contact the laboratory for consultation, if needed. Performance characteristics were determined by the [facility] in a manner consistent with CLIA requirement and has not been cleared or approved by the U.S. Food and Drug Administration. Current interpretive data was last revised 2020. Testing performed by: [facility], [address] [facility], [place]., [address] Urine 03/30/2024 6:20 PM CDT 03/30/2024 8:38 PM CDT Noman GONZALEZ LAB URINE ORDERABLES Final Re sult Performing Organization Address [facility] Co de Phone Number [facility] [address] Department [place] [address] * (ABNORMAL) Urinalysis, microscopic only (03/30/2024 6:20 PM CDT) WBC, ur 0-5 0 - 5 /HPF RBC, ur 3-5(A) 0 - 2 /HPF [facility] Epithelial cells, squamous, ur 1-5 0 - 5 /HPF [facility] Bacteria, ur Trace(A) [facility] Mucous, ur Present(A) [facility] Culture Reflex Comment Reflex conditions for urine culture (WBC >10) not met. [facility] Urine, clean voided 03/30/2024 6:20 PM CDT 03/30/2024 6:31 PM CDT Noman GONZALEZ LAB URINE ORDERABLES Final Re sult Performing Organization Address [facility] de Phone Number [facility] [address] Department [place] [address] * (ABNORMAL) Drugs of Abuse Screen, Urine with Reflex Confirmation (03/30/2024 6:20 PM CDT) Amphetamine, ur Not Detected CutOff 500ng/mL Comment: Interpretive Data - Amphetamines: ??Samples containing greater than 500 ng/mL d-methamphetamine ??or other cross-reacting amphetamine compounds are reported as positive. ??Amphetamine immunoassays are subject to significant false positive rates due to cross-reactivity of non-amphetamine drugs. Confirmatory testing required for definitive results. Current Interpretive Data was last reviewed 2023. Barbiturates, ur Not Detected CutOff 200ng/mL [facility] Comment: Interpretive Data - Barbiturates: ??Samples containing greater than 200 ng/mL secobarbital or other cross-reacting barbiturate compounds are reported as positive. ??False positive and false negative results are possible. Confirmatory testing required for definitive results. Current Interpretive Data was last reviewed 2023. Benzodiazepines, ur Not Detected CutOff 100ng/mL [facility] Comment: Interpretive Data - Benzodiazepines: ??Samples containing greater than 100 ng/mL nordiazepam or other cross-reacting compounds are reported as positive. False positive and false negative results are possible. Confirmatory testing required for definitive results. Current Interpretive Data was last reviewed 2023. Cannabinoids, ur Screen Positive, presumptive (A) CutOff 50 ng/mL [facility] Comment: Interpretive Data - Cannabinoids: ??Samples containing greater than 50 ng/mL delta-9 THC -COOH or other cross-reacting compounds are reported as positive. ??False positive and false negative results are possible. ??Confirmatory testing required for definitive results. Current Interpretive Data was last reviewed 2023. Cocaine, ur Not Detected CutOff 150ng/mL [facility] Comment: Interpretive Data - Cocaine: ??Samples containing greater than 150 ng/mL benzoylecgonine or other cross-reacting compounds are reported as positive. False positive and false negative results are possible. Confirmatory testing required for definitive results. Current Interpretive Data was last reviewed 2023. Fentanyl, Ur Not Detected CutOff 5 ng/mL [facility] Comment: Interpretive Data - Fentanyl: ?? Samples containing greater than 5 ng/mL norfentanyl, fentanyl, or other cross-reacting fentanyl compounds are reported as positive. False positive and false negative results are possible. Confirmatory testing required for definitive results. Current Interpretive Data was last reviewed 2023. Methadone, ur Not Detected CutOff 300ng/mL [facility] Comment: Interpretive Data - Methadone: ??Samples containing greater than 300 ng/mL d,l-methadone or other cross-reacting compounds are reported as positive. ??False positive and false negative results are possible. Confirmatory testing required for definitive results. Current Interpretive Data was last reviewed 2023. Opiates, ur Screen Positive, presumptive (A) CutOff 300ng/mL [facility] Comment: Interpretive Data - Opiates: ??Samples containing greater than 300 ng/mL morphine or other cross-reacting compounds are reported as positive. ??False positive and false negative results are possible. Confirmatory testing required for definitive results. Current Interpretive Data was last reviewed 2023. Oxycodone, ur Not Detected CutOff 100ng/mL [facility] Comment: Interpretive Data - Oxycodone: ??Samples containing greater than 100 ng/mL oxycodone or other cross-reacting compounds are reported as ??positive. ??False positive and false negative results are possible. Confirmatory testing required for definitive results. Current Interpretive Data was last reviewed 2023. Phencyclidine, ur Not Detected CutOff 25 ng/mL [facility] Comment: Interpretive Data - Phencyclidine: ??Samples containing greater than 25 ng/mL phencyclidine or other cross-reacting compounds are reported as positive. ??False positive and false negative results are possible. Confirmatory testing required for definitive results. Current Interpretive Data was last reviewed 2023. Urine Creatinine 53 mg/dL [facility] Comment: Interpretive Data Urine Creatinine: < 10 mg/dL is extremely dilute = or > 10 but < 20 mg/dL is dilute = or > 20 mg/dL is normal Current Interpretive Data was last revised on 2017. Urine 03/30/2024 6:20 PM CDT 03/30/2024 6:30 PM CDT Narrative [facility] - 03/30/2024 6:58 PM CDT Drug of Abuse screening is performed by immunoassay for medical purposes only. ??This is not to be used for Pain Management purposes. ??If Detected, confirmation testing will be performed for Amphetamines, Cocaine, Fentanyl, Methadone, Opiates, Oxycodone or Phencyclidine. us Noman GONZALEZ LAB URINE ORDERABLES Final Re sult [facility] [address] Department [place] [address] * (ABNORMAL) Urinalysis reflex to microscopic and culture Urine, clean voided (03/30/2024 6:20 PM CDT) Color, ur Straw Yellow Clarity, ur Clear Clear [facility] Specific gravity, ur 1.013 1.003 - 1.030 [facility] pH, urine 6.5 [facility] Comment: Interpretive Data ? Urine pH is affected by diet, medications, systemic acid-base disturbances, and renal tubular function. ??pH may affect urinary stone formation. ??For example, urine pH below 6.0 may help reduce the tendency for calcium phosphate stones and pH greater than 6.0 may reduce the tendency for uric acid stone formation. Source: [facility] Robert Applebaum MD Current Interpretive Data was last revised on 2017 Protein, ur ql Negative Negative [facility] Glucose, ur ql Negative Negative [facility] Ketones, ur 3+(A) Negative [facility] Bilirubin, ur Negative Negative [facility] Blood, ur 1+(A) Negative [facility] Urobilinogen, ur <2.0 <2.0 mg/dL [facility] Nitrite, ur Negative Negative [facility] Leukocyte esterase, ur Negative Negative [facility] UA reflex comment Reflex to microscopic UA will be performed. [facility] Urine, clean voided 03/30/2024 6:20 PM CDT 03/30/2024 6:22 PM CDT Noman GONZALEZ LAB MICROBIOLOGY - GENERAL OR DERABLES Final Result [facility] [address] Department [place] [address] * Troponin T high-sensitivity 2-hour (03/30/2024 6:00 PM CDT) Trop T hs 6 <=14 ng/L Comment: Interpretive Data For further hscTnT resources including the diagnostic algorithm and an aid in interpretation, copy and paste this link: https://nrl.testcatalog.org/show/hsTrop Current Interpretive Data last revised 2020. Trop T hs delta 0 ng/L [facility] Trop T hs interp Insignificant [facility] Blood 03/30/2024 6:00 PM CDT 03/30/2024 6:06 PM CDT us Diane Knox MD LAB BLOOD ORDERABLES Final Result Performing Organization Address [facility] Co wa Phone Number SONIA [facility] [address] Department [place] [address] * eGFR (03/30/2024 3:40 PM CDT) eGFR >90 >=60 mL/min/1. 73 m2 [...] interpretive data was last reviewed 2021. Blood 03/30/2024 3:40 PM CDT 03/30/2024 4:03 PM CDT us Sravan Marsh DO LAB BLOOD ORDERABLES F inal Result [facility] [address] Department [place] [address] * (ABNORMAL) Differential, auto (03/30/2024 3:40 PM CDT) Neutrophil abs 9.8(H) 1.5 - 6.5 K/cumm Imm gran abs 0.1 0.0 - 0.1 K/cumm [facility] Lymphocyte abs 2.1 0.8 - 3.3 K/cumm [facility] Monocyte abs 0.8 0.2 - 0.8 K/cumm [facility] Eosinophil abs 0.0 0.0 - 0.5 K/cumm [facility] Basophil abs 0.1 0.0 - 0.1 K/cumm [facility] Neutrophil pct 76.6 % [facility] Comment: Interpretive Data Percent cell count reference ranges are not reported, since discordance with absolute values may lead to misinterpretation of CBC data. Current Interpretive Data was last revised on 2017. Imm gran pct 0.4 % [facility] Comment: Interpretive Data Percent cell count reference ranges are not reported, since discordance with absolute values may lead to misinterpretation of CBC data. Current Interpretive Data was last revised on 2017. Lymphocyte pct 16.3 % [facility] Comment: Interpretive Data Percent cell count reference ranges are not reported, since discordance with absolute values may lead to misinterpretation of CBC data. Current Interpretive Data was last revised on 2017. Monocyte pct 6.0 % [facility] Comment: Interpretive Data Percent cell count reference ranges are not reported, since discordance with absolute values may lead to misinterpretation of CBC data. Current Interpretive Data was last revised on 2017. Eosinophil pct 0.2 % [facility] Comment: Interpretive Data Percent cell count reference ranges are not reported, since discordance with absolute values may lead to misinterpretation of CBC data. Current Interpretive Data was last revised on 2017. Basophil pct 0.5 % [facility] Comment: Interpretive Data Percent cell count reference ranges are not reported, since discordance with absolute values may lead to misinterpretation of CBC data. Current Interpretive Data was last revised on 2017. Blood 03/30/2024 3:40 PM CDT 03/30/2024 4:03 PM CDT Sravan Marsh LAB BLOOD ORDERABLES F inal Result Performing Organization Address [facility] de Phone Number [facility] [address] Department Laboratories [place], [place] [id number] * Troponin T high-sensitivity series (baseline, 2hr, 4hr, 6hr) (03/30/2024 3:40 PM CDT) [facility] Trop T hs <6 <=14 ng/L Comment: Interpretive Data For further hscTnT resources including the diagnostic algorithm and an aid in interpretation, copy and paste this link: https://nrl.testcatalog.org/show/hsTrop Current Interpretive Data last revised 2020. Blood 03/30/2024 3:40 PM CDT 03/30/2024 4:03 PM CDT Sravan Natalia Louisemily [facility] BLOOD ORDERABLES F inal Result Performing Organization Address [facility] de Phone Number [facility] [address] Department [place] [address] * (ABNORMAL) Comprehensive metabolic panel (03/30/2024 3:40 PM CDT) [facility] Sodium 138 135 - 145 mmol/L Potassium, pl 3.2(L) 3.3 - 4.9 mmol/L [facility] Chloride 96(L) 97 - 110 mmol/L [facility] CO2 21(L) 22 - 32 mmol/L [facility] Anion gap 21(H) 2 - 15 mmol/L [facility] BUN 10 6 - 25 mg/dL [facility] Creatinine 0.82 0.60 - 1.10 mg/dL [facility] Glucose 103 70 - 199 mg/dL [facility] Comment: Interpretive Data Fasting glucose [...] interpretive data was last revised 2022. Calcium 9.5 8.5 - 10.3 mg/dL [facility] Bilirubin, total 0.4 0.1 - 1.2 mg/dL [facility] Protein, pl 8.5 6.5 - 8.5 g/dL [facility] Albumin 4.7 3.5 - 5.0 g/dL [facility] Alk phos 98 40 - 130 Units/L [facility] ALT 39 7 - 45 Units/L [facility] AST 32 10 - 45 Units/L [facility] Blood 03/30/2024 3:40 PM CDT 03/30/2024 4:03 PM CDT us Sravan Marsh DO LAB BLOOD ORDERABLES F inal Result [facility] [address] Department [place] [address] * (ABNORMAL) CBC with auto differential (03/30/2024 3:40 PM CDT) Pathologist [facility] WBC 12.7(H) 3.8 - 9.9 K/cumm Hgb 14.7 11.9 - 15.5 g/dL [facility] Hct 43.4 35.6 - 45.5 % [facility] Plt 462(H) 150 - 400 K/cumm [facility] MPV 10.3 9.1 - 12.3 fL [facility] RBC 5.08 3.90 - 5.20 M/cumm [facility] MCV 85.4 81.3 - 96.4 fL [facility] MCH 28.9 27.1 - 33.3 pg [facility] MCHC 33.9 32.3 - 35.7 g/dL [facility] RDW CV 13.3 11.1 - 14.9 % [facility] RDW SD 41.2 35.7 - 48.1 fL [facility] NRBC abs 0.00 0.00 - 0.01 K/cumm [facility] Blood (Blood, Venous) 03/30/2024 3:40 PM CDT 03/30/2024 4:03 PM CDT Sravan Marsh DO LAB BLOOD ORDERABLES F inal Result [facility] [address] Department [place] [address] * XR Chest PA Lateral 2 Views (03/30/2024 3:39 PM CDT) Anatomical Region Laterality Modality Body, Chest N/A Computed Radiogr aphy 03/30/2024 3:43 PM CDT Impressions 03/30/2024 3:43 PM CDT Normal chest x-ray. Electronically signed by: Ranjith Sharma M.D. Narrative 03/30/2024 3:43 PM CDT EXAMINATION: XR CHEST PA LATERAL 2 VIEWS HISTORY: Chest pain COMPARISON: Chest radiograph 03/28/2024 FINDINGS: Heart size and pulmonary vasculature normal. ??No airspace disease. Bony and soft tissues normal. Procedure Note Ranjith Sharma III, MD - 03/30/2024 EXAMINATION: XR CHEST PA LATERAL 2 VIEWS HISTORY: Chest pain COMPARISON: Chest radiograph 03/28/2024 FINDINGS: Heart size and pulmonary vasculature normal. No airspace disease. Bony and soft tissues normal. IMPRESSION: Normal chest x-ray. Electronically signed by: Ranjith Sharma M.D. Sravan Marsh DO IMG XR PROCEDURES Amanda l Result * ECG 12 lead (03/30/2024 3:11 PM CDT) 03/30/2024 3:11 PM CDT Narrative [facility] - 03/31/2024 11:40 AM CDT Vent Rate: 62 bpm RR Interval: 955 msec AL Interval: 101 msec QRS Duration: 86 msec QT Interval: 430 msec QTC Interval: 436 msec P-R-T [place]: 47 - 24 - 56 degrees IMPRESSION: SINUS RHYTHM WITH SHORT AL INTERVAL POSSIBLE RIGHT VENTRICULAR CONDUCTION DELAY BORDERLINE ECG Electronically Signed By: Yahir Miranda ??[facility] Card us Sravan Marsh DO ECG ORDERABLES Final Result [facility] documented in this encounter Visit Diagnoses Diagnosis Intractable nausea and vomiting- Primary Chest pain, unspecified type Nausea and vomiting, unspecified vomiting type Intractable nausea and vomiting [R11.2] Intractable vomiting Persistent vomiting On total parenteral nutrition Intractable vomiting Persistent vomiting On total parenteral nutrition documented in this encounter Admitting Diagnoses Diagnosis Intractable nausea and vomiting Intractable vomiting Persistent vomiting documented in this encounter Administered Medications Inactive Administered Medications - up to 3 most recent administrations Medication Order MAR Action Action Date Dose Rate Site acetaminophen (TYLENOL) tablet 1,000 mg 1,000 mg, oral, 3 times daily, First dose (after last modification) on 03/31/24 at 1600, Indications: Fever, PainIndications:Fever,Pain Given 04/07/2024 8:01 PM CDT 1,000 mg Given 04/07/2024 9:09 AM CDT 1,000 mg Ab dominal Tissue Given 04/06/2024 9:19 PM CDT 1,000 mg al & mag hydroxide simethicone-lidocaine oral suspension mixture 40 mL, oral, Once, On 03/30/24 at 1812, For 1 dose Given 03/30/2024 6:27 PM CDT 40 mL al & mag hydroxide simethicone-lidocaine oral suspension mixture 40 mL, oral, Once, On 04/07/24 at 2300, For 1 dose Given 04/07/2024 10:24 PM CDT 40 mL ARIPiprazole (ABILIFY) tablet 4 mg 4 mg, oral, Daily, First dose on 03/31/24 at 0900 Given 04/07/2024 9:09 AM CDT 4 mg Given 04/06/2024 9:27 AM CDT 4 mg Given 04/05/2024 8:34 AM CDT 4 mg benzocaine-menthoL (CHLORASEPTIC) lozenge 1 lozenge 1 lozenge, mouth/throat, Every 2 hours PRN, sore throat, Starting on 04/06/24 at 1227 calcium carbonate (TUMS) chewable tablet 500 mg 500 mg (200 mg of elemental calcium), oral, 4 times daily PRN, indigestion, heartburn, Starting on 04/08/24 at 2018 Given 04/08/2024 8:54 PM CDT 500 mg clonazePAM (KlonoPIN) tablet 0.5 mg 0.5 mg, oral, Once, On 03/30/24 at 1743, For 1 dose Given 03/30/2024 5:56 PM CDT 0.5 mg clonazePAM (KlonoPIN) tablet 0.5 mg 0.5 mg, oral, 3 times daily PRN, anxiety, Starting on 03/30/24 at 2254 Given 04/07/2024 8:01 PM CDT 0.5 mg Given 04/07/2024 1:36 AM CDT 0.5 mg Given 04/06/2024 7:31 AM CDT 0.5 mg dextrose 5% and sodium chloride 0.45% infusion (premix) 75 mL/hr, intravenous, Continuous, Starting on 04/07/24 at 0915 New Bag 04/09/2024 12:22 AM CDT 75 mL/hr 75 mL/hr New Bag 04/08/2024 3:55 AM CDT 75 mL/hr 75 mL/hr Rate/Dose Verify 04/07/2024 10:27 PM CDT 75 mL/hr 75 mL/ hr diphenhydrAMINE (BENADRYL) 50 mg/mL injection 25 mg 25 mg, intravenous, Administer over 2 Minutes, Once, On 03/30/24 at 1635, For 1 dose Given 03/30/2024 4:56 PM CDT 25 mg diphenhydrAMINE (BENADRYL) 50 mg/mL injection 25 mg 25 mg, intravenous, Administer over 2 Minutes, Once, On Mon04/03/24 at 1045, For 1 dose Given 04/03/2024 10:29 AM CDT 25 mg droPERidol (INAPSINE) injection 1.25 mg 1.25 mg, intravenous, Administer over 5 Minutes, Once, On 03/30/24 at 1635, For 1 dose Given 03/30/2024 4:53 PM CDT 1.[address] (CYMBALTA) extended release capsule 30 mg 30 mg, oral, Daily with evening meal, First dose on Nicole 04/04/24 at 1800, Capsule may be opened and contents mixed with applesauce or apple juice ONLY. Do not crush or chew capsule Given 04/08/2024 8:53 PM CDT 30 mg Given 04/07/2024 6:36 PM CDT 30 mg Given 04/06/2024 6:08 PM CDT [address] (CYMBALTA) extended release capsule 60 mg 60 mg, oral, Daily, First dose on 03/31/24 at 0900, Capsule may be opened and contents mixed with applesauce or apple juice ONLY. Do not crush or chew capsule, On hold since 03/31/2024 at 1208 until manually unheld Given 03/31/2024 8:34 AM CDT 60 mg enoxaparin (LOVENOX) syringe 40 mg 40 mg, subcutaneous, Daily (for enoxaparin), First dose on 03/30/24 at 2330, Indications: Deep Vein Thrombosis PreventionIndications:Deep Vein Thrombosis Prevention Given 04/06/2024 9:22 PM CDT 40 mg Left Lower Abdomen Given 04/05/2024 8:11 PM CDT 40 mg Ri ght Lower Abdomen Given 2024 9:25 PM CDT 40 mg Le ft Lower Abdomen erythromycin (ERYTHROCIN) 250 mg in sodium chloride 0.9% 100 mL IVPB 250 mg, intravenous, at 105 mL/hr, Administer over 60 Minutes, Every 6 hours scheduled, First dose on Nicole 04/04/24 at 1215, Indications: GastroparesisIndications:Gastropar esis New Bag 04/05/2024 11:30 AM CDT 250 mg 105 mL/hr New Bag 04/05/2024 5:24 AM CDT 250 mg 105 mL/hr New Bag 2024 11:34 PM CDT 250 mg 105 mL/hr erythromycin (ERYTHROCIN) 500 mg in sodium chloride 0.9% 100 mL IVPB 500 mg, intravenous, at 110 mL/hr, Administer over 60 Minutes, Every 6 hours scheduled, First dose (after last modification) on Mon04/05/24 at 1800, Indications: GastroparesisIndications:Gastropare sis New Bag 04/06/2024 9:31 PM CDT 500 mg 110 mL/hr New Bag 04/06/2024 12:35 PM CDT 500 mg 110 mL/hr New Bag 04/06/2024 6:16 AM CDT 500 mg 110 mL/hr famotidine (PEPCID) injection 20 mg 20 mg, intravenous, Administer over 2 Minutes, Every 12 hours scheduled, First dose on Mon03/31/24 at 1245 Given 04/09/2024 9:26 AM CDT 20 mg Given 04/08/2024 8:55 PM CDT 20 mg Given 04/08/2024 12:31 PM CDT 20 mg famotidine (PEPCID) tablet 40 mg 40 mg, oral, Nightly, First dose on Mon03/30/24 at 2330 Given 03/30/2024 11:02 PM CDT 40 mg gadoterate meglumine injection 10 mL 10 mL, intravenous, Once in imaging, contrast, Starting on Mon04/02/24 at 2256, For 1 dose Contrast Given 04/02/2024 10:57 PM CDT 10 mL ioversoL (OPTIRAY 350) syringe 75 mL 75 mL, intravenous, Once in imaging, contrast, Starting on Mon04/03/24 at 1327, For 1 dose Contrast Given 04/03/2024 1:27 PM CDT 72 mL ketorolac (TORADOL) 15 mg/mL injection 15 mg 15 mg, intravenous, Once, On 03/30/24 at 1635, For 1 dose, For Adult IV push, administer over 15 seconds Given 03/30/2024 4:54 PM CDT 15 mg ketorolac (TORADOL) 15 mg/mL injection 15 mg 15 mg, intravenous, Once, On 03/30/24 at 2118, For 1 dose, For Adult IV push, administer over 15 seconds Given 03/30/2024 9:20 PM CDT 15 mg Lactated Ringer's (LR) bolus 1,000 mL 1,000 mL, intravenous, Once, On 03/30/24 at 1635, For 1 dose New Bag 03/30/2024 4:59 PM CDT 1,000 mL Lactated Ringer's (LR) bolus 1,000 mL 1,000 mL, intravenous, Once, On 03/30/24 at 1800, For 1 dose New Bag 03/30/2024 6:20 PM CDT 1,000 mL LORazepam (ATIVAN) injection 0.5 mg 0.5 mg, intravenous, 3 times daily PRN, other, n/v, Starting on Mon03/31/24 at 1207, For IV administration, draw up ordered admin dose/volume, then dilute with equal volume of 0.9% sodium chloride and administer total volume to patient. Do not exceed a rate of 2 mg/minute. Given 04/07/2024 9:38 PM CDT 0.5 mg Given 04/07/2024 3:06 PM CDT 0.5 mg Given 04/05/2024 9:35 PM CDT 0.5 mg mirtazapine (REMERON) tablet 7.5 mg 7.5 mg, oral, Nightly, First dose on Mon04/05/24 at 2100 Given 04/08/2024 8:54 PM CDT 7.5 mg Given 04/07/2024 8:01 PM CDT 7.5 mg Given 04/06/2024 9:19 PM CDT 7.5 mg morphine injection 2 mg 2 mg, intravenous, Administer over 4 Minutes, Every 3 hours PRN, 3rd line for pain, Starting on 03/30/24 at 2151, On hold since Mon04/07/2024 at 1305 until manually unheld Given 04/03/2024 9:56 AM CDT 2 mg Given 04/02/2024 4:36 PM CDT 2 mg Given 04/02/2024 9:00 AM CDT 2 mg OLANZapine (ZyPREXA ZYDIS) disintegrating tablet 5 mg 5 mg, oral, Every 8 hours PRN, other, vomiting, Starting on Mon04/03/24 at 1203 Given 2024 10:17 AM CDT 5 mg Given 04/03/2024 11:44 PM CDT 5 mg ondansetron (ZOFRAN) 4 mg/2 mL injection - ADS Override Pull Starting on 03/30/24 at 1556, For 1 dose, Created by cabinet override Given 03/30/2024 3:57 PM CDT 4 mg ondansetron (ZOFRAN) injection 4 mg 4 mg, intravenous, Administer over 2 Minutes, Once, On 03/30/24 at 2037, For 1 dose Given 03/30/2024 8:52 PM CDT 4 m g ondansetron (ZOFRAN) injection 4 mg 4 mg, intravenous, Administer over 2 Minutes, Every 6 hours PRN, nausea, vomiting, if not tolerating PO, Starting on 03/30/24 at 2254, Indications: Nausea and VomitingIndications:Nausea and Vomiting Given 03/31/2024 10:55 AM CDT 4 m g Given 03/31/2024 5:19 AM CDT 4 mg ondansetron (ZOFRAN) injection 4 mg 4 mg, intravenous, Administer over 2 Minutes, 3 times daily, First dose on Mon03/31/24 at 1600 Given 04/08/2024 8: 22 AM CDT 4 mg Given 04/07/2024 8:01 PM CDT 4 mg Given 04/07/2024 2:59 PM CDT 4 mg ondansetron (ZOFRAN) injection 4 mg 4 mg, intravenous, Administer over 2 Minutes, Once, On Mon04/01/24 at 1530, For 1 dose, Pre-Procedure (GI) Given 04/01/2024 2:56 PM CDT 4 mg ondansetron (ZOFRAN) injection 4 mg 4 mg, intravenous, Administer over 2 Minutes, Once, On Mon04/05/24 at 0615, For 1 dose Given 04/05/2024 6:21 AM CDT 4 mg pantoprazole (PROTONIX) 40 mg in sodium chloride 0.9% 10 mL IV Syringe 40 mg, intravenous, at 300 mL/hr, Administer over 2 Minutes, Once, On 03/30/24 at 1812, For 1 dose, For IV administration, reconstitute 40 mg vial with 10 mL sodium chloride 0.9% for injection for a final concentration of 4 mg/mL, Indications: Treatment of Non-Bleeding Gastric DisorderIndications:Treatment of Non-Bleeding Gastric Disorder Given 03/30/2024 6:27 PM CDT 40 mg 3 00 mL/hr pantoprazole DR (PROTONIX) extended release tablet 40 mg 40 mg, oral, Daily, First dose on Mon03/31/24 at 0900, Do not crush, chew, cut, dissolve, open or otherwise manipulate tablet/capsule., Indications: Treatment of Non-Bleeding Gastric DisorderIndications:Treatment of Non-Bleeding Gastric Disorder Given 03/31/2024 8:34 AM CDT 40 mg potassium chloride 40 mEq in sodium chloride 0.9% 500 mL IVPB 40 mEq, intravenous, at 130 mL/hr, Administer over 4 Hours, Once, On Mon04/07/24 at 0930, For 1 dose, Indications: hypokalemiaIndications:hypokalemia New Bag 04/07/2024 3:09 PM CDT 40 mEq 130 mL/hr potassium chloride 40 mEq/100 mL in sterile water (premix) 40 mEq 40 mEq, intravenous, at 25 mL/hr, Administer over 4 Hours, Once, On Mon04/08/24 at 0945, For 1 dose, Central line only, Indications: hypokalemiaIndications:hypokalemia New Bag 04/08/2024 2:12 PM CDT 40 mEq 25 mL/hr potassium phosphate 30 mmol/510 mL in sodium chloride 0.9% IVPB (premix) 30 mmol 30 mmol, intravenous, Administer over 6 Hours, Once, On Mon04/05/24 at 1200, For 1 dose, For PERIPHERAL line administration Each 1 mmol of phosphorus ordered contains ~1.5 mEq of potassium. New Bag 04/05/2024 12:50 PM CDT 30 mmol prochlorperazine (COMPAZINE) injection 5 mg 5 mg, intravenous, Administer over 2 Minutes, Every 6 hours PRN, nausea, vomiting, 2nd line for n/v, Starting on Mon03/31/24 at 1207 Given 2024 4:49 AM CDT 5 mg Given 04/03/2024 7:41 PM CDT 5 mg Given 04/03/2024 9:58 AM CDT 5 mg prochlorperazine (COMPAZINE) injection 5 mg 5 mg, intravenous, Administer over 2 Minutes, Every 6 hours PRN, nausea, vomiting, Starting on Mon04/05/24 at 0841 Given 04/07/2024 1:47 AM CDT 5 mg Given 04/06/2024 6:47 PM CDT 5 mg Given 04/06/2024 7:31 AM CDT 5 mg prochlorperazine (COMPAZINE) injection 5 mg 5 mg, intravenous, Administer over 2 Minutes, Every 6 hours PRN, nausea, vomiting, 2nd line for n/v, Starting on 04/07/24 at 2200 Given 04/07/2024 10:24 PM CDT 5 mg promethazine (PHENERGAN) suppository 25 mg 25 mg, rectal, Every 8 hours PRN, nausea, vomiting, Starting on 04/07/24 at 1304, Refrigerate Given 04/07/2024 8:02 PM CDT 25 mg ramelteon (ROZEREM) tablet 8 mg 8 mg, oral, Nightly PRN, sleep, Starting on 03/30/24 at 2254, Indications: Sleep-Onset InsomniaIndications:Sleep-Onset Insomnia Given 04/03/2024 7:42 PM CDT 8 m g ramelteon (ROZEREM) tablet 8 mg 8 mg, oral, Nightly, First dose (after last modification) on 04/06/24 at 2100, Indications: Sleep-Onset InsomniaIndications:Sleep-Onset Insomnia Given 04/08/2024 8:54 PM CDT 8 m g Given 04/07/2024 8:01 PM CDT 8 mg Given 04/06/2024 9:19 PM CDT 8 mg scopolamine patch 72 hour 1 patch 1 patch, transdermal, Administer over 72 Hours, Every 72 hours, First dose on Mon04/02/24 at 1515 Medication Applied 04/05/2024 3:05 PM CDT 1 patch Other (Comment) Medication Applied 04/02/2024 3:16 PM CDT 1 patch Behind Right Ear sincalide (KINEVAC) injection 0.6 mcg 0.6 mcg (rounded from 0.583 mcg = 0.01 mcg/kg ? 58.3 kg), intravenous, Administer over 5 Minutes, Once, On Mon04/08/24 at 0945, For 1 dose New Bag 04/08/2024 9:01 AM CDT 0.6 mcg sincalide (KINEVAC) injection 1.2 mcg 1.2 mcg (rounded from 1.166 mcg = 0.02 mcg/kg ? 58.3 kg), intravenous, Administer over 60 Minutes, Once, On Mon04/08/24 at 1115, For 1 dose New Bag 04/08/2024 10:36 AM CDT 1.2 mcg sodium bicarbonate 150 mEq/1,150 mL in dextrose 5 % infusion 75 mL/hr, intravenous, Continuous, Starting on Mon04/05/24 at 1400 New Bag 04/07/2024 5:11 AM CDT 75 mL/hr 75 mL/hr Rate/Dose Verify 04/06/2024 9:56 PM CDT 75 mL/hr 75 mL/h r Rate/Dose Verify 04/06/2024 6:00 PM CDT 75 mL/hr 75 mL/ hr sodium chloride 0.45% with potassium chloride 20 mEq/L infusion (premix) 125 mL/hr, intravenous, Continuous, Starting on Mon03/31/24 at 1245 New Bag 04/01/2024 7:15 AM CDT 125 mL/hr 125 mL/hr New Bag 03/31/2024 9:31 PM CDT 125 mL/hr 125 mL/hr New Bag 03/31/2024 12:40 PM CDT 125 mL/hr 125 mL/hr sodium chloride 0.9% flush 5-10 mL 5-10 mL, intra-catheter, Every 12 hours scheduled, First dose on Mon04/04/24 at 1415, Flush volume based on line type, size, and protocol. Given 04/08/2024 8:56 PM CDT 10 mL Given 04/08/2024 8:22 AM CDT 10 mL Given 04/07/2024 8:06 PM CDT 10 mL sodium chloride 0.9% flush 5-10 mL 5-10 mL, intra-catheter, Every 12 hours scheduled, First dose on Mon04/07/24 at 1315, Flush volume based on line type, size, and protocol. Given 04/08/2024 8:56 PM CDT 10 mL Given 04/08/2024 8:22 AM CDT 10 mL Given 04/07/2024 7:21 PM CDT 10 mL sodium chloride 0.9% flush 5-20 mL 5-20 mL, intra-catheter, As needed, line care, with each use, Starting on Mon04/04/24 at 1338, Flush volume based on line type, size, and protocol. sodium chloride 0.9% flush 5-20 mL 5-20 mL, intra-catheter, As needed, line care, with each use, Starting on Mon04/07/24 at 1231, Flush volume based on line type, size, and protocol. Given 04/08/2024 3:55 AM CDT 10 mL Given 04/07/2024 9:38 PM CDT 10 mL sodium chloride 0.9% infusion 100 mL/hr, intravenous, Continuous, Starting on Mon03/31/24 at 0015, For 1 day New Bag 03/31/2024 10:05 AM CDT 100 mL/hr 100 mL/hr New Bag 03/30/2024 11:50 PM CDT 100 mL/hr 100 mL/hr sodium chloride 0.9% infusion 30 mL/hr, intravenous, Continuous, Starting on Mon04/01/24 at 1445 New Bag 04/03/2024 1:55 AM CDT 30 mL/hr 30 mL/hr Restarted 04/01/2024 3:09 PM CDT New Bag 04/01/2024 2:19 PM CDT 30 mL/hr 30 mL/hr sodium chloride 0.9% infusion 75 mL/hr, intravenous, Continuous, Starting on Nicole 04/04/24 at 1215 New Bag 04/05/2024 5:24 AM CDT 75 mL/hr 75 mL/hr New Bag 2024 1:25 PM CDT 75 mL/hr 75 mL/hr [id number] mebrofenin (choletec) injection 5.84 millicurie 5.84 millicurie, intravenous, Once in imaging, radiopharmaceutical, Starting on Mon04/08/24 at 0933, For 1 dose, Indications: Diagnostic RadiographyIndications:Diagnostic Radiography Given 04/08/2024 9:33 AM CDT 5.84 millicuries traZODone (DESYREL) tablet 100 mg 100 mg, oral, Nightly PRN, sleep, Starting on Mon03/30/24 at 2254 Given 04/03/2024 7:42 PM CDT 100 mg Given 03/31/2024 9:22 PM CDT 100 mg trimethobenzamide (TIGAN) injection 200 mg 200 mg, intramuscular, Every 6 hours PRN, nausea, vomiting, Starting on Mon04/03/24 at 1436 Given 04/07/2024 12:24 PM CDT 200 mg Right Ventrogluteal Given 04/03/2024 5:42 PM CDT 200 mg Ri ght Dorsogluteal/Buttock verapamiL (CALAN) tablet 40 mg 40 mg, oral, Daily, First dose (after last modification) on Mon04/03/24 at 0900 Given 04/09/2024 9:26 AM CDT 40 mg Given 04/07/2024 9:09 AM CDT 40 mg Given 04/06/2024 9:28 AM CDT 40 mg verapamiL (CALAN) tablet 80 mg 80 mg, oral, Daily, First dose on Mon03/31/24 at 0900 Given 04/01/2024 10:25 AM CDT 80 mg Given 03/31/2024 8:34 AM CDT 80 mg documented in this encounter Discontinued Medications Medication Sig Discontinue Reason Start Date End Da te clonazePAM (KlonoPIN) 0.5 mg tablet TAKE 1 TABLET BY MOUTH EVERY MORNING AND 2 TABLETS BY MOUTH EVERY NIGHT AT BEDTIME. COLLAB. MD Cindy KING 03/30/[address] (CYMBALTA) 60 mg capsule Take 1 capsule (60 mg total) by mouth daily Stop Taking at Discharge 04/09/2024 traZODone (DESYREL) 50 mg tablet Take 2 tablets (100 mg total) by mouth nightly as needed for sleep Stop Taking at Discharge 04/09/2024 verapamiL (CALAN) 40 mg tablet Take 2 tablets (80 mg total) by mouth daily Stop Taking at Discharge 04/09/2024 Sim[place] 0.15 mg-30 mcg (84)/10 mcg (7) tablets,dose pack,3 month Take 1 tablet by mouth daily Stop Taking at Discharge 11/11/2023 04/09/2024 ARIPiprazole (ABILIFY) 2 mg tablet Take 2 tablets (4 mg total) by mouth daily Stop Taking at Discharge 04/09/[address] (PROTONIX) 40 mg EC tablet Take 1 tablet (40 mg total) by mouth daily Stop Taking at Discharge 03/11/2024 04/09/2024 HYDROcodone-acetamin ophen (NORCO) 5-325 mg per tabletIndications:Pa in Take 1 tablet by mouth every 6 (six) hours as needed for pain Stop Taking at Discharge 03/29/2024 04/09/2024 documented as of this encounter Historical Medications * This list may reflect changes made after this encounter. clonazePAM (KlonoPIN) 0.5 mg tablet Take 1 tablet (0.5 mg total) by mouth 3 (three) times a day as needed for anxiety added in this encounter Active and Recently Administered Medications Times are shown in CDT. Scheduled Medication Order 04/07/2024 04/08/2024 04/09/2024 acetaminophen (TYLENOL) tablet 1,000 mg (CANCELED) 1,000 mg, oral, 3 times daily, First dose (after last modification) on 03/31/24 at 1600, Indications: Fever, Pain 0909 (Given - Provider: Dannielle Amanda RN)1400 (Not Given - Provider: Dannielle Amadna RN - Reason: Patient/family refused - Comment: with nausea)2000 (Given - Provider: Hazel Stuart RN) 123 (Not Given - Provider: Amber Martinez RN - Reason: Patient not available) al & mag hydroxide simethicone-lidocaine oral suspension mixture (COMPLETED) 40 mL, oral, Once, On 04/07/24 at 2300, For 1 dose 2223 (Given - Provider: Hazel Stuart RN) ARIPiprazole (ABILIFY) tablet 4 mg (CANCELED) 4 mg, oral, Daily, First dose on 03/31/24 at 0900 0909 (Given - Provider: Dannielle Amanda RN) DULoxetine DR (CYMBALTA) extended release capsule 30 mg 30 mg, oral, Daily with evening meal, First dose on Nicole 04/04/24 at 1800, Capsule may be opened and contents mixed with applesauce or apple juice ONLY. Do not crush or chew capsule 1835 (Given - Provider: Dannielle Amanda RN) 2052 (Given - Provider: Kayley Antonio RN) enoxaparin (LOVENOX) syringe 40 mg 40 mg, subcutaneous, Daily (for enoxaparin), First dose on 03/30/24 at 2330, Indications: Deep Vein Thrombosis Prevention 2000 (Not Given - Provider: Hazel Stuart RN - Reason: Patient/family refused) 2055 (Not Given - Provider: Kayley Antonio RN - Reason: Patient/family refused) famotidine (PEPCID) injection 20 mg 20 mg, intravenous, Administer over 2 Minutes, Every 12 hours scheduled, First dose on Mon03/31/24 at 1245 0911 (Given - Provider: Dannielle Amanda RN)1921 (Given - Provider: Hazel Stuart RN) 1231 (Given - Provider: Amber Martinez, RUBÉN)2054 (Given - Provider: Kayley Antonio RN) 09 (Given - Provider: Amber Martinez RN) mirtazapine (REMERON) tablet 7.5 mg 7.5 mg, oral, Nightly, First dose on Mon04/05/24 at 2100 2000 (Given - Provider: Hazel Stuart RN) 2053 (Given - Provider: Kayley Antonio RN) ondansetron (ZOFRAN) injection 4 mg 4 mg, intravenous, Administer over 2 Minutes, 3 times daily, First dose on 03/31/24 at 1600 0911 (Given - Provider: Dannielle Amanda RN)1459 (Given - Provider: Dannielle Amanda RN - Comment: loss of IV access)2000 (Given - Provider: Hazel Stuart RN) 0822 (Given - Provider: Amber Martinez RN)172 (Not Given - Provider: Amber Martinez RN - Reason: Patient/family refused)2055 (Not Given - Provider: Kayley Antonio RN - Reason: Patient/family refused) 09 (Not Given - Provider: Amber Martinez RN - Reason: Change in Patient Status) potassium chloride 40 mEq in sodium chloride 0.9% 500 mL IVPB (COMPLETED) 40 mEq, intravenous, at 130 mL/hr, Administer over 4 Hours, Once, On Mon04/07/24 at 0930, For 1 dose, Indications: hypokalemia 1509 (New Bag - Provider: Dannielle Amanda RN - Comment: loss of access) potassium chloride 40 mEq/100 mL in sterile water (premix) 40 mEq (COMPLETED) 40 mEq, intravenous, at 25 mL/hr, Administer over 4 Hours, Once, On 04/08/24 at 0945, For 1 dose, Central line only, Indications: hypokalemia 1412 (New Bag - Provider: Amber Martinez, RUBÉN) ramelteon (ROZEREM) tablet 8 mg 8 mg, oral, Nightly, First dose (after last modification) on 04/06/24 at 2100, Indications: Sleep-Onset Insomnia 2000 (Given - Provider: Hazel Stuart RN) 2053 (Given - Provider: Kayley Antonio, RUBÉN) sincalide (KINEVAC) injection 0.6 mcg (COMPLETED) 0.6 mcg (rounded from 0.583 mcg = 0.01 mcg/kg ? 58.3 kg), intravenous, Administer over 5 Minutes, Once, On 04/08/24 at 0945, For 1 dose 0901 (New Bag - Provider: RT Michael) sincalide (KINEVAC) injection 1.2 mcg (COMPLETED) 1.2 mcg (rounded from 1.166 mcg = 0.02 mcg/kg ? 58.3 kg), intravenous, Administer over 60 Minutes, Once, On 04/08/24 at 1115, For 1 dose 1036 (New Bag - Provider: RT Michael) sodium chloride 0.9% flush 5-10 mL 5-10 mL, intra-catheter, Every 12 hours scheduled, First dose on Nicole 04/04/24 at 1415, Flush volume based on line type, size, and protocol. 0900 (Not Given - Provider: Dannielle Amanda RN - Reason: IV Infusing)2005 (Given - Provider: Hazel Stuart RN) 821 (Given - Provider: Amber Martinez, RUBÉN)2055 (Given - Provider: Kayley Antonio RN) 101 (Canceled Entry - Provider: Amber Martinez RN) sodium chloride 0.9% flush 5-10 mL 5-10 mL, intra-catheter, Every 12 hours scheduled, First dose on Mon04/07/24 at 1315, Flush volume based on line type, size, and protocol. 1300 (Not Given - Provider: Dannielle Amanda RN - Reason: Loss of IV access)1921 (Given - Provider: Hazel Stuart RN) 0822 (Given - Provider: Amber Martinez RN)2056 (Given - Provider: Kayley Antonio, RUBÉN) 1015 (Canceled Entry - Provider: Amber Martinez RN) verapamiL (CALAN) tablet 40 mg 40 mg, oral, Daily, First dose (after last modification) on Mon04/03/24 at 0900 0909 (Given - Provider: Dannielle Amanda RN) 1232 (Not Given - Provider: Amber Martinez RN - Reason: NPO) 0926 (Given - Provider: Amber Martinez RN) Continuous Medication Order 04/07/2024 04/08/2024 04/09/2024 dextrose 5% and sodium chloride 0.45% infusion (premix) 75 mL/hr, intravenous, Continuous, Starting on Mon04/07/24 at 0915 0911 (New Bag - Provider: Dannielle Amanda RN)1825 (Rate/Dose Verify - Provider: Dannielle Amanda RN)2002 (Rate/Dose Verify - Provider: Hazel Stuart RN)2227 (Rate/Dose Verify - Provider: Hazel Stuart, RUBÉN) 0355 (New Bag - Provider: Hazel Stuart, RUBÉN) 0022 (New Bag - Provider: Kayley Antonio, RUBÉN)1900 (Due: Stopped) sodium bicarbonate 150 mEq/1,150 mL in dextrose 5 % infusion (CANCELED) 75 mL/hr, intravenous, Continuous, Starting on Mon04/05/24 at 1400 0511 (New Bag - Provider: Hazel Stuart RN)0911 (Stopped - Provider: Dannielle Amanda RN) PRN Medication Order 04/07/2024 04/08/2024 04/09/2024 benzocaine-menthoL (CHLORASEPTIC) lozenge 1 lozenge 1 lozenge, mouth/throat, Every 2 hours PRN, sore throat, Starting on 04/06/24 at 1227 calcium carbonate (TUMS) chewable tablet 500 mg 500 mg (200 mg of elemental calcium), oral, 4 times daily PRN, indigestion, heartburn, Starting on 04/08/24 at 2018 2053 (Given - Provider: Kayley Antonio, RUBÉN) clonazePAM (KlonoPIN) tablet 0.5 mg 0.5 mg, oral, 3 times daily PRN, anxiety, Starting on 03/30/24 at 2254 0136 (Given - Provider: Hazel Stuart, RUBÉN)2000 (Given - Provider: Hazel Stuart, RUBÉN) LORazepam (ATIVAN) injection 0.5 mg 0.5 mg, intravenous, 3 times daily PRN, other, n/v, Starting on 03/31/24 at 1207, For IV administration, draw up ordered admin dose/volume, then dilute with equal volume of 0.9% sodium chloride and administer total volume to patient. Do not exceed a rate of 2 mg/minute. 1506 (Given - Provider: Dannielle Amanda RN)2138 (Given - Provider: Hazel Stuart, RUBÉN) morphine injection 2 mg 2 mg, intravenous, Administer over 4 Minutes, Every 3 hours PRN, 3rd line for pain, Starting on 03/30/24 at 2151, On hold since 04/07/2024 at 1305 until manually unheld 1305 (Held by Provider - Provider: Nicholas Saba, DO - Reason: Hold for Procedure) 1900 (Unheld by Provider - Provider: Automatic Discharge Provider) prochlorperazine (COMPAZINE) injection 5 mg (CANCELED) 5 mg, intravenous, Administer over 2 Minutes, Every 6 hours PRN, nausea, vomiting, Starting on Mon04/05/24 at 0841 0147 (Given - Provider: Hazel Stuart, RUBÉN) prochlorperazine (COMPAZINE) injection 5 mg 5 mg, intravenous, Administer over 2 Minutes, Every 6 hours PRN, nausea, vomiting, 2nd line for n/v, Starting on Mon04/07/24 at 2200 2224 (Given - Provider: Hazel Stuart, RUBÉN) promethazine (PHENERGAN) suppository 25 mg (CANCELED) 25 mg, rectal, Every 8 hours PRN, nausea, vomiting, Starting on Mon04/07/24 at 1304, Refrigerate 2001 (Given - Provider: Hazel Stuart, RUBÉN) sodium chloride 0.9% flush 5-20 mL 5-20 mL, intra-catheter, As needed, line care, with each use, Starting on Mon04/04/24 at 1338, Flush volume based on line type, size, and protocol. sodium chloride 0.9% flush 5-20 mL 5-20 mL, intra-catheter, As needed, line care, with each use, Starting on Mon04/07/24 at 1231, Flush volume based on line type, size, and protocol. 2138 (Given - Provider: Hazel Stuart, RUBÉN) 0355 (Given - Provider: Hazel Stuart, RUBÉN) tc-99m mebrofenin (choletec) injection 5.84 millicurie (COMPLETED) 5.84 millicurie, intravenous, Once in imaging, radiopharmaceutical, Starting on Mon04/08/24 at 0933, For 1 dose, Indications: Diagnostic Radiography 0933 (Given - Provider: Sumit Martinez, RT) trimethobenzamide (TIGAN) injection 200 mg 200 mg, intramuscular, Every 6 hours PRN, nausea, vomiting, Starting on Mon04/03/24 at 1436 1224 (Given - Provider: Dannielle Amanda, RUBÉN) documented in this encounter Orders Medications Ordered That Ramy ht Not Have Been Administered Count Last Ordered Date First Ordered Date sincalide (KINEVAC) injection 1.2 mcg 1 lidocaine (PF) (XYLOCAINE) 1 0 mg/mL (1 %) preservative free injection 10-20 mg 2 04/07/2024 benzocaine-menthoL (CHLORASE PTIC) lozenge 1 lozenge 1 04/06/2024 sodium chloride 0.9% flush 5-10 mL 1 2023 sodium chloride 0.9% flush 5-20 mL 2 2023 ondansetron (ZOFRAN) injection 4 mg 1 04/02 traMADoL (ULTRAM) tablet 50 mg 1 03/31/2024 acetaminophen (TYLENOL) tablet 650 mg 1 aspirin chewable tablet 324 mg 1 03/30/2024 HYDROcodone-acetaminophen (N ORCO) 5-325 mg per tablet 1 tablet 1 03/30/2024 ketorolac (TORADOL) 15 mg/mL injection 15 mg 1 03/30/2024 ondansetron ODT (ZOFRAN-ODT) disintegrating tablet 4 mg 1 03/30/2024 Lab Orders Without Results Count Last Ordered D ate First Ordered Date POCT GLUCOSE DEVICE 1 03/30/2024 EKG Orders Without Results Count Last Ordered D ate First Ordered Date ECG 12-LEAD 1 03/30/2024 Nursing Count Last Ordered Date First Orde red Date NURSING COMMUNICATION 1 04/01/2024 VERIFY INFORMED CONSENT 1 04/01/2024 CONTINUOUS PULSE OXIMETRY 1 03/30/2024 MISCELLANEOUS NURSING CARE ORDER (SPECIFY) 2 03/30/2024 Consult Count Last Ordered Date First Orde red Date IP CONSULT TO NUTRITION SERVICES 1 04/06/20 IP CONSULT TO PSYCHIATRY 1 2024 IP CONSULT TO GASTROENTEROLOGY 1 03/31/2024 Isolation Count Last Ordered Date First Orde red Date INITIATE DROPLET ISOLATION 1 04/02/2024 IV Count Last Ordered Date First Orde red Date SALINE LOCK IV 1 03/30/2024 Admission Count Last Ordered Date First Orde red Date ADMIT TO INPATIENT 1 03/31/2024 INITIATE OBSERVATION SERVICES 1 03/30/2024 Discharge Count Last Ordered Date First Orde red Date DISCHARGE PATIENT 1 04/09/2024 Case Request Count Last Ordered Date First Orde red Date CASE REQUEST GI 1 04/01/2024 documented in this encounter Additional Health Concerns Infection Onset Date Last Indicated Resolved Time COVID: Suspected 04/02/2024 04/02/2024 04/02/2024 2:07 PM CDT C. difficile suspected 04/03/2024 04/05/202404/052024 6:16 AM CDT documented as of this encounter Care Teams [employer] Relationship Specialty Start Date End Date Maurice Duff Jr., MD [address] [id number] PCP - General Family Medicine 03/11/24 documented as of this encounter
--- OUTSIDE RECORDS SUMMARY | 2024-07-30 14:10 | XMS_ITS | Encounter Summary ---
Author Organization [facility] Healthcare Address [address] [place] [address] Care Team Providers Care Muskrat Trapper Name Role Phone Omega Khanna MD, [facility] Primary Care Provider Reason for Referral * Consultation (Routine) - Pending Review Specialty Diagnoses / Procedures Referred By Contac t Referred To Contact Cardiology Diagnoses Chest pain, unspecified type Donald Sahu MD [address] [facility] [address] [place] [address] Phone: tel: fax: [facility] Medical Group Cardiology [address] [place] [address] Phone: tel: fax: Referral ID Status Reason Start Date Expiration Date Visits Requested Visits Authorized [id number] Pending Review Specialty Services Required 03/29/2024 04/28/2025 1 1 Question Answer Please select the performing region: [facility] Medical Group [[id number]] Please select the performing department: [facility] [[id number]] # of visits: 1 Reason for Visit * Reason Comments Chest Pain Encounter Details Date Type Department Care Team (Late st Contact Info) Description 03/28/2024 11:20 PM CDT - 03/29/2024 3:00 AM CDT Emergency [facility] Emergency Department [address] [place] [address] Donald Sahu MD [address] [place] [address] Chest pain, unspecified type (Primary Dx) Discharge Disposition: Discharge to home [...] Sign Reading Time Taken Comments Blood Pressure 122/66 03/29/2024 2:30 AM CDT Pulse 74 03/29/2024 2:30 AM CDT Temperature 36.1 ??C (96.9 ??F) 03/28/2024 7:24 PM CD T Respiratory Rate 15 03/29/2024 2:30 AM CDT Oxygen Saturation 92% 03/29/2024 2:30 AM CDT Inhaled Oxygen Concentration - - Weight 63 kg (139 lb) 03/28/2024 7:24 PM CDT Height - - Body Mass Index 26.26 03/28/2024 5:05 AM CDT documented in this encounter Discharge Instructions * Attachments The following attachments cannot be sent through Care Everywhere. * Chest Pain, Uncertain Cause ([place]) documented in this encounter Medications at Time of Discharge ARIPiprazole (ABILIFY) 2 mg tablet Take 2 tablets (4 mg total) by mouth daily 04/09/20 clonazePAM (KlonoPIN) 0.5 mg tablet TAKE 1 TABLET BY MOUTH EVERY MORNING AND 2 TABLETS BY MOUTH EVERY NIGHT AT BEDTIME. COLLAB. MD Cindy KING 03/30/[address] (CYMBALTA) 60 mg capsule Take 1 capsule (60 mg total) by mouth daily 04/09/20 24 famotidine (PEPCID) 40 mg tablet Take 1 tablet (40 mg total) by mouth nightly 90 tablet 1 4 05/27/20 24 HYDROcodone-acetami nophen (NORCO) 5-325 mg per tabletIndications:P ain Take 1 tablet by mouth every 6 (six) hours as needed for pain 10 tablet 4 04/09/20 24 ondansetron ODT (ZOFRAN-ODT) 4 mg disintegrating tablet Take 1 tablet (4 mg total) by mouth every 8 (eight) hours as needed for nausea or vomiting 20 tablet 4 05/27/[address] (PROTONIX) 40 mg EC tablet Take 1 tablet (40 mg total) by mouth daily 90 tablet 1 4 04/09/20 24 Simpesse 0.15 mg-30 mcg (84)/10 mcg (7) tablets,dose pack,3 month Take 1 tablet by mouth daily 04/09/20 24 traZODone (DESYREL) 50 mg tablet Take 2 tablets (100 mg total) by mouth nightly as needed for sleep 04/09/20 verapamiL (CALAN) 40 mg tablet Take 2 tablets (80 mg total) by mouth daily 04/09/20 24 documented as of this encounter Ordered Prescriptions Prescription Sig Dispense Quantity Refills Last Filled Start Date End Date HYDROcodone-acetam inophen (NORCO) 5-325 mg per tabletIndications: Pain Take 1 tablet by mouth every 6 (six) hours as needed for pain 10 tablet 03/29/2024 04/09/2024 documented in this encounter Discharge Disposition Disposition Code Departure Means Destination Comment s Discharge to home or self care documented in this encounter ED Notes * Donald Sahu MD - 03/28/2024 11:22 PM CDT Images from the original note were not included. HPI Chief Complaint Patient presents with Chest Pain 38-year-old female presents to the emergency department complaining of recurrent chest pain described as pressure-like this afternoon. She was seen in this emergency department earlier today after having chest discomfort this morning. She has also had episodes of nausea and vomiting. She does have a history of GERD in the past. She denies any known history of coronary artery disease or stents. Denies any history of DVT or PE. She does take oral contraceptives, but she does not smoke cigarettes.She is with her father in the emergency department. She denies any significant lower extremity painor swelling. Denies any abdominal pain. She has had a section in the past. Denies any other abdominal surgeries. Symptoms are mild to moderate. No other modifying factors are noted. Does notappear to be related to exertion. History provided by: Patient and parent online advertising director used: No Patient History: Patient Active Problem List Diagnosis Date Noted Chest pain 03/29/2024 Gastroesophageal reflux disease without esophagitis 03/11/2024 Bipolar disorder, in partial remission, most recent episode mixed ([facility]) ([facility]) 03/11/2024 PSVT (paroxysmal supraventricular tachycardia) ([facility]) 03/11/2024 Mixed hyperlipidemia 03/11/2024 Vaginal vestibulitis 03/11/2024 [...] Used Substance and Sexual Activity Alcohol use: Not on file Drug use: Not on file Sexual activity: Yes Partners: Male control/protection: OCP Social History Social History Narrative Not on file Review of Systems Review of Systems Constitutional: Negative. Negative for chills and fever. HENT: Negative. Respiratory: Negative. Negative for cough and shortness of breath. Cardiovascular: Positive for chest pain. Negative for palpitations and leg swelling. Gastrointestinal: Negative. Negative for abdominal pain, diarrhea, nausea and vomiting. Genitourinary: Negative. Musculoskeletal: Negative. Skin: Negative. Neurological: Negative. Negative for dizziness, light-headedness and headaches. Psychiatric/Behavioral: Negative. All other systems reviewed and are negative. Physical Exam ED Triage Vitals Temp Pulse Resp BP SpO2 03/28/24192303/28/24192303/28/24192303/28/24192503/28/241923 36.1 ??C (96.9 ??F) 57 18 148/95 100 % Temp src Heart Rate Source Patient Position BP Location FiO2 (%) 03/28/241923 -- -- -- -- Oral Height Height Method Weight Weight Method -- -- 03/28/241923 -- 63 kg (139 lb) Physical Exam Vitals and nursing note reviewed. Constitutional: General: She is not in acute distress. Appearance: She is well-developed and normal weight. She is not ill-appearing, toxic-appearing or diaphoretic. HENT: Head: Normocephalic. Eyes: Pupils: Pupils are equal, round, and reactive to light. Cardiovascular: Rate and Rhythm: Regular rhythm. Bradycardia present. Pulses: Radial pulses are 2+ on the right side and 2+ on the left side. Heart sounds: Normal heart sounds. No murmur heard. Pulmonary: Effort: Pulmonary effort is normal. Breath sounds: Normal breath sounds. Abdominal: Palpations: Abdomen is soft. Tenderness: There is no abdominal tenderness. Musculoskeletal: General: Normal range of motion. Cervical back: Normal range of motion and neck supple. Right lower leg: No tenderness. No edema. Left lower leg: No tenderness. No edema. Skin: General: Skin is warm and dry. Neurological: General: No focal deficit present. Mental Status: She is alert and oriented to person, place, and time. Psychiatric: Mood and Affect: Mood normal. Behavior: Behavior normal. MDM Results for orders placed or performed during the hospital encounter of 03/28/24 CBC with auto differential Result Value Ref Range WBC 14.9 (H) 3.8 - 9.9 K/cumm Hgb 13.6 11.9 - 15.5 g/dL Hct 41.6 35.6 - 45.5 % Plt 422 (H) 150 - 400 K/cumm MPV 10.3 9.1 - 12.3 fL RBC 4.73 3.90 - 5.20 M/cumm MCV 87.9 81.3 - 96.4 fL MCH 28.8 27.1 - 33.3 pg MCHC 32.7 32.3 - 35.7 g/dL RDW CV 14.0 11.1 - 14.9 % RDW SD 44.9 35.7 - 48.1 fL NRBC abs 0.00 0.00 - 0.01 K/cumm Comprehensive metabolic panel Result Value Ref Range Sodium 140 135 - 145 mmol/L Potassium, pl 3.6 3.3 - 4.9 mmol/L Chloride 101 97 - 110 mmol/L CO2 21 (L) 22 - 32 mmol/L Anion gap 18 (H) 2 - 15 mmol/L BUN 13 6 - 25 mg/dL Creatinine 0.88 0.60 - 1.10 mg/dL Glucose 121 70 - 199 mg/dL Calcium 9.8 8.5 - 10.3 mg/dL Bilirubin, total 0.6 0.1 - 1.2 mg/dL Protein, pl 8.0 6.5 - 8.5 g/dL Albumin 4.5 3.5 - 5.0 g/dL Alk phos 86 40 - 130 Units/L ALT 32 7 - 45 Units/L AST 30 10 - 45 Units/L Troponin T high-sensitivity series (baseline, 2hr, 4hr, 6hr) Result Value Ref Range Trop T hs <6 <=14 ng/L Differential, auto Result Value Ref Range Neutrophil abs 11.1 (H) 1.5 - 6.5 K/cumm Imm gran abs 0.1 0.0 - 0.1 K/cumm Lymphocyte abs 2.6 0.8 - 3.3 K/cumm Monocyte abs 1.2 (H) 0.2 - 0.8 K/cumm Eosinophil abs 0.0 0.0 - 0.5 K/cumm Basophil abs 0.0 0.0 - 0.1 K/cumm Neutrophil pct 74.5 % Imm gran pct 0.4 % Lymphocyte pct 17.1 % Monocyte pct 7.7 % Eosinophil pct 0.1 % Basophil pct 0.2 % Troponin T high-sensitivity 2-hour Result Value Ref Range Trop T hs <6 <=14 ng/L Trop T hs delta See Comment ng/L Trop T hs pct delta See Comment % Trop T hs interp See Comment eGFR Result Value Ref Range eGFR 86 >=60 mL/min/1.73 m2 ECG 12 lead Result Date: 03/28/2024 Narrative: Vent Rate: 62 bpm RR Interval: 955 msec MS Interval: 103 msec QRS Duration: 88 msec QT Interval: 433 msec QTC Interval: 439 msec P-R-T [place]: 50 - 34 - 56 degrees IMPRESSION: SINUS RHYTHM WITH SHORT MS INTERVAL BORDERLINE ECG Electronically Signed By: Juan Sue MD mobap XR Chest 1 Vw Result Date: 03/28/2024 Narrative: EXAMINATION: 1 view chest radiograph Impression: Clear lungs. No pleural effusion or pneumothorax. Heart size and mediastinal contours are within normal limits. Electronically signed by: Russell Newsome M.D. CT Chest PE (CTA) W Contrast Order: [id number] Status: Preliminary result Visible to patient: No (not released) Next appt: 11/12/2024 at 01:30 PM in Obstetrics and Gynecology (Aura Horne MD) 0 Result Notes Details Wet Read PROCEDURE INFORMATION: Exam: CTA Chest With Contrast Exam date and time: 03/29/2024 12:26 AM Age: 38 years old Clinical indication: Pain; Angina pectoris; Additional info: Chest pain, pe suspected, high prob TECHNIQUE: Imaging protocol: Computed tomographic angiography of the chest with contrast. Exam focused on the arteries. 3D rendering (Not supervised by radiologist): MIP and/or 3D reconstructed images were created by the technologist. COMPARISON: DX XR CHEST 1 VIEW 03/28/2024 5:44 AM FINDINGS: Pulmonary arteries: No pulmonary emboli. Aorta: No aortic aneurysm. No aortic dissection. Lungs: 5 mm nodule visualized within the right lower lobe. No consolidative opacity. Pleural spaces: Biapical pleural-parenchymal scarring. No pleural effusion or pneumothorax. Heart: Unremarkable. No cardiomegaly. No pericardial effusion. Lymph nodes: Unremarkable. No enlarged lymph nodes. Bones/joints: Age-appropriate. No acute fracture. Soft tissues: Unremarkable. IMPRESSION: No pulmonary embolism. THIS DOCUMENT HAS BEEN ELECTRONICALLY SIGNED BY FOX RESENDIZ MD THIS DOCUMENT WAS READ BY A AD RADIOLOGIST, ANY QUESTIONS PLEASE CALL [phone] Interpreted by Interface, Radiology Results In on 03/29/2024 01:47 Exam Ended: 03/29/24 00:30 Last Resulted: 03/29/24 01:47 Heart Score History (Anamnesis): 0 EC Age: 0 Risk factors: 0 Troponin: 0 Heart Score Total: 0 Medical Decision Making Differential diagnosis includes ACS, PE, aortic dissection, pneumonia, pneumothorax, atypical chestpain, anxiety, GERD The patient's vital signs remained stable in the emergency department. She had a couple episodes ofchest pain in the emergency department. Somewhat pressure- like episodes. Not related to exertion. Her EKG, labs, and imaging were benign. Troponins are negative. CT scan of the chest does not show evidence of a pulmonary embolism or aortic dissection or other concerning etiologies. We were able to obtain her an appointment for later in the day at 12:30 p.m. with the cardiology clinic. The patientwas subsequently discharged home with return precautions. Amount and/or Complexity of Data Reviewed Radiology: ordered and independent interpretation performed. ECG/medicine tests: ordered and independent interpretation performed. Risk Prescription drug management. Final diagnoses: Chest pain, unspecified type Donald Sahu MD 03/29/24 0545 * Luz Mackenzie RN - 03/28/2024 7:17 PM CDT Patient to ED with concern for chest pain. Patient was seen in ED earlier today and diagnosed with GERD. Patient reports, I have tried every medicine you can imagine and nothing is helping me. Patient also notes continues nausea and vomiting. PMH SVT on verapamil. documented in this encounter Miscellaneous Notes * ED Procedure Note - Donald Sahu MD - 03/28/2024 11:24 PM CDT Associated Order(s): ECG 12 lead Procedure ECG 12 lead Date/Time: 03/28/2024 11:24 PM Performed by: Donald Sahu MD Authorized by: Donald Sahu MD Rate: ECG rate: 52 ECG rate assessment: bradycardic Rhythm: Rhythm: sinus bradycardia ST segments: ST segments: No acute ST changes. Previous ECG: Previous ECG: Compared to current Similarity: No change Interpretation: Interpretation: No significant change Recommended Follow-up: Recommended follow up: further workup in the ED Donald Sahu MD 03/28/24 6537 documented in this encounter Plan of Treatment Scheduled Referrals Name Type Priority Associated Diagnoses Orde r Schedule Ambulatory referral to Cardiology Outpatient Referral Routine Chest pain, unspecified type Expected: 04/12/2024 (Approximate), Expires: 03/29/2025 documented as of this encounter Procedures Procedure Name Priority Date/Time Associated Diagnosis Comments CT CHEST PE W CONTRAST ED 12:30 AM CDT TROPONIN T HIGH-SENSITIVITY 2-HOUR Timed 03/28/2024 11:28 PM CDT TROPONIN T HIGH-SENSITIVITY SERIES (BASELINE, 2HR, 4HR, 6HR) STAT 03/28/2024 8:17 PM CDT EGFR STAT 03/28/2024 8:17 PM CDT DIFFERENTIAL AUTO STAT 03/28/2024 8:1 7 PM CDT CBC WITH AUTO DIFFERENTIAL STAT 03/28/2024 8:17 PM CDT COMPREHENSIVE METABOLIC PANEL STAT 03/28/2024 8:17 PM CDT ECG 12-LEAD STAT 03/28/2024 7:21 PM CDT documented in this encounter Results * CT Chest PE (CTA) W Contrast (03/29/2024 12:30 AM CDT) Anatomical Region Laterality Modality Body N/A Computed Tomogra phy 03/29/2024 12:2 6 AM CDT Impressions 03/29/2024 6:59 AM CDT 1. ??No pulmonary embolism or acute abnormality. 2. ??5 mm subpleural right lower lobe pulmonary nodule, very likely chronic or infectious/inflammatory. If there is particularly high risk for lung cancer metastasis, optional CT in one year can be obtained. Electronically signed by: Grupo Christianson M.D. Narrative 03/29/2024 6:59 AM CDT EXAMINATION: CT CHEST PE (CTA) W CONTRAST HISTORY: Chest pain TECHNIQUE: Computed tomographic images were acquired using a chest angiographic protocol optimized for pulmonary embolism. ??Contrast enhanced transaxial images were obtained following the intravenous administration of 72 ml of nonionic contrast. ??Multiplanar reformatted images and three-dimensional images were obtained on the 3-D workstation and sent to the PACS archival system. ?? COMPARISON: None FINDINGS: No suspicious pulmonary nodule. ??No pleural effusion or pneumothorax. 5 mm subpleural right lower lobe pulmonary nodule. ??Central airways are unremarkable. ??Heart size is normal. ??No pericardial effusion. Aorta is normal in course and caliber. ??No pulmonary embolism. ??No thoracic lymphadenopathy. ??No acute or suspicious abnormality in the imaged upper abdomen or osseous structures. Procedure Note Grupo Christianson MD - 03/29/2024 EXAMINATION: CT CHEST PE (CTA) W CONTRAST HISTORY: Chest pain TECHNIQUE: Computed tomographic images were acquired using a chest angiographic protocol optimized for pulmonary embolism. Contrast enhanced transaxial images were obtained following the intravenous administration of 72 ml of nonionic contrast. Multiplanar reformatted images and three-dimensional images were obtained on the 3-D workstation and sent to the PACS archival system. COMPARISON: None FINDINGS: No suspicious pulmonary nodule. No pleural effusion or pneumothorax. 5 mm subpleural right lower lobe pulmonary nodule. Central airways are unremarkable. Heart size is normal. No pericardial effusion. Aorta is normal in course and caliber. No pulmonary embolism. No thoracic lymphadenopathy. No acute or suspicious abnormality in the imaged upper abdomen or osseous structures. IMPRESSION: 1. No pulmonary embolism or acute abnormality. 2. 5 mm subpleural right lower lobe pulmonary nodule, very likely chronic or infectious/inflammatory. If there is particularly high risk for lung cancer metastasis, optional CT in one year can be obtained. Electronically signed by: Grupo Christianson M.D. Donald Sahu MD IM CT PROCEDURES Final Re sult * Troponin T high-sensitivity 2-hour (03/28/2024 11:28 PM CDT) Trop T hs <6 <=14 ng/L Comment: Interpretive Data For further hscTnT resources including the diagnostic algorithm and an aid in interpretation, copy and paste this link: https://nrl.testcatalog.org/show/hsTrop Current Interpretive Data last revised 2020. Trop T hs delta See Comment ng/L [facility] Comment:Inappropriate collec tion time to report a delta. Trop T hs pct delta See Comment % [facility] Comment:Inappropriate collec tion time to report a delta. Trop T hs interp See Comment [facility] Comment:Inappropriate collec tion time to report a delta. Blood 03/28/2024 11:2 8 PM CDT 03/28/2024 11:57 PM CDT us Cortes Bob MD LAB BLOOD ORDERABLES F inal Result [facility] [address] Department [place] [address] * eGFR (03/28/2024 8:17 PM CDT) eGFR 86 >=60 mL/min/1. 73 m2 Comment: Interpretive Data [...] interpretive data was last reviewed 2021. Blood 03/28/2024 8:17 PM CDT 03/28/2024 8:28 PM CDT us Donald Sahu MD LAB BLOOD ORDERABLES Final Result [facility] [address] Department [place] [address] * (ABNORMAL) Differential, auto (03/28/2024 8:17 PM CDT) Neutrophil abs 11.1(H) 1.5 - 6.5 K/cumm Imm gran abs 0.1 0.0 - 0.1 K/cumm [facility] Lymphocyte abs 2.6 0.8 - 3.3 K/cumm [facility] Monocyte abs 1.2(H) 0.2 - 0.8 K/cumm [facility] Eosinophil abs 0.0 0.0 - 0.5 K/cumm [facility] Basophil abs 0.0 0.0 - 0.1 K/cumm [facility] Neutrophil pct 74.5 % [facility] Comment: Interpretive Data Percent cell count reference ranges are not reported, since discordance with absolute values may lead to misinterpretation of CBC data. Current Interpretive Data was last revised on 2017. Imm gran pct 0.4 % [facility] Comment: Interpretive Data Percent cell count reference ranges are not reported, since discordance with absolute values may lead to misinterpretation of CBC data. Current Interpretive Data was last revised on 2017. Lymphocyte pct 17.1 % [facility] Comment: Interpretive Data Percent cell count reference ranges are not reported, since discordance with absolute values may lead to misinterpretation of CBC data. Current Interpretive Data was last revised on 2017. Monocyte pct 7.7 % [facility] Comment: Interpretive Data Percent cell count reference ranges are not reported, since discordance with absolute values may lead to misinterpretation of CBC data. Current Interpretive Data was last revised on 2017. Eosinophil pct 0.1 % [facility] Comment: Interpretive Data Percent cell count reference ranges are not reported, since discordance with absolute values may lead to misinterpretation of CBC data. Current Interpretive Data was last revised on 2017. Basophil pct 0.2 % [facility] Comment: Interpretive Data Percent cell count reference ranges are not reported, since discordance with absolute values may lead to misinterpretation of CBC data. Current Interpretive Data was last revised on 2017. Blood 03/28/2024 8:17 PM CDT 03/28/2024 8:28 PM CDT Donald Sahu MD LAB BLOOD ORDERABLES Final Result Performing Organization Address [facility]/ZIP Co de Phone Number [facility] [address] Department [place], [place] [id number] * Troponin T high-sensitivity series (baseline, 2hr, 4hr, 6hr) (03/28/2024 8:17 PM CDT) [facility] Trop T hs <6 <=14 ng/L Comment: Interpretive Data For further hscTnT resources including the diagnostic algorithm and an aid in interpretation, copy and paste this link: https://nrl.testcatalog.org/show/hsTrop Current Interpretive Data last revised 2020. Blood 03/28/2024 8:17 PM CDT 03/28/2024 8:28 PM CDT Donald Sahu MD LAB BLOOD ORDERABLES Final Result Performing Organization Address [facility] Co de Phone Number [facility] [address] [place] [address] * (ABNORMAL) Comprehensive metabolic panel (03/28/2024 8:17 PM CDT) Pathologist [facility] Sodium 140 135 - 145 mmol/L Potassium, pl 3.6 3.3 - 4.9 mmol/L [facility] Chloride 101 97 - 110 mmol/L [facility] CO2 21(L) 22 - 32 mmol/L [facility] Anion gap 18(H) 2 - 15 mmol/L [facility] BUN 13 6 - 25 mg/dL [facility] Creatinine 0.88 0.60 - 1.10 mg/dL [facility] Glucose 121 70 - 199 mg/dL [facility] Comment: Interpretive Data Fasting glucose >/= 126 [...] 2022. Calcium 9.8 8.5 - 10.3 mg/dL [facility] Bilirubin, total 0.6 0.1 - 1.2 mg/dL [facility] Protein, pl 8.0 6.5 - 8.5 g/dL [facility] Albumin 4.5 3.5 - 5.0 g/dL [facility] Alk phos 86 40 - 130 Units/L [facility] ALT 32 7 - 45 Units/L [facility] AST 30 10 - 45 Units/L [facility] Blood 03/28/2024 8:17 PM CDT 03/28/2024 8:28 PM CDT Donald Sahu MD LAB BLOOD ORDERABLES Final Result [facility] [address] Department [place] [address] * (ABNORMAL) CBC with auto differential (03/28/2024 8:17 PM CDT) WBC 14.9(H) 3.8 - 9.9 K/cumm Hgb 13.6 11.9 - 15.5 g/dL [facility] Hct 41.6 35.6 - 45.5 % [facility] Plt 422(H) 150 - 400 K/cumm [facility] MPV 10.3 9.1 - 12.[address] [facility] RBC 4.73 3.90 - 5.20 M/cumm [facility] MCV 87.9 81.3 - 96.[address] [facility] MCH 28.8 27.1 - 33.[address] [facility] MCHC 32.7 32.3 - 35.7 g/dL [facility] RDW CV 14.0 11.1 - 14.9 % [facility] RDW SD 44.9 35.7 - 48.[address] [facility] NRBC abs 0.00 0.00 - 0.01 K/cumm [facility] Blood (Blood, Venous) 03/28/2024 8:17 PM CDT 03/28/2024 8:28 PM CDT Donald Sahu MD LAB BLOOD ORDERABLES Final Result Performing Organization Address [facility] Co de Phone Number [facility] [address] Department [place] [address] * ECG 12 lead (03/28/2024 7:21 PM CDT) 03/28/2024 7:21 PM CDT Narrative [facility] Work 'n Gear - 03/29/2024 8:17 AM CDT Vent Rate: 52 bpm RR Interval: 1153 msec MS Interval: 104 msec QRS Duration: 90 msec QT Interval: 452 msec QTC Interval: 431 msec P-R-T [place]: 61 - 45 - 54 degrees IMPRESSION: SINUS BRADYCARDIA WITH SHORT MS INTERVAL BORDERLINE ECG Electronically Signed By: Juan Sue MD mobap Donald Sahu MD ECG ORDERABLES Final Resu lt Performing Organization Address City/[facility]/ZIP Co de Phone Number [facility] Work [employer]n Gear [facility] documented in this encounter Visit Diagnoses Diagnosis Chest pain, unspecified type- Primary Chest pain Unspecified chest pain documented in this encounter Administered Medications Inactive Administered Medications - up to 3 most recent administrations Medication Order MAR Action Action Date Dose Rate Site ioversoL (OPTIRAY 350) syringe 75 mL 75 mL, intravenous, Once in imaging, contrast, Starting on Mon03/29/24 at 0023, For 1 dose Contrast Given 03/29/2024 12:24 AM CDT 72 mL morphine injection 4 mg 4 mg, intravenous, Administer over 4 Minutes, Once, On Nicole 03/28/24 at 2337, For 1 dose, Indications: PainIndications:Pain Given 03/28/2024 11:39 PM CDT 4 mg morphine injection 4 mg 4 mg, intravenous, Administer over 4 Minutes, Once, On Mon03/29/24 at 0140, For 1 dose, Indications: PainIndications:Pain Given 03/29/2024 1:41 AM CDT 4 mg ondansetron (ZOFRAN) injection 4 mg 4 mg, intravenous, Administer over 2 Minutes, Once, On Nicole 03/28/24 at 2018, For 1 dose, Indications: Nausea, VomitingIndications:Nausea ,Vomiting Given 03/28/2024 8:21 PM CDT 4 mg ondansetron (ZOFRAN) injection 4 mg 4 mg, intravenous, Administer over 2 Minutes, Once, On Nicole 03/28/24 at 2337, For 1 dose, Indications: Nausea, VomitingIndications:Nausea ,Vomiting Given 03/28/2024 11:39 PM CDT 4 mg pantoprazole (PROTONIX) 40 mg in sodium chloride 0.9% 10 mL IV Syringe 40 mg, intravenous, at 300 mL/hr, Administer over 2 Minutes, Once, On Mon03/29/24 at 0008, For 1 dose, For IV administration, reconstitute 40 mg vial with 10 mL sodium chloride 0.9% for injection for a final concentration of 4 mg/mL, Indications: Treatment of Non-Bleeding Gastric DisorderIndications:Treatm ent of Non-Bleeding Gastric Disorder Given 03/29/2024 12:14 AM CDT 40 mg 300 mL/hr sodium chloride 0.9% bolus 1,000 mL 1,000 mL, intravenous, at 1,000 mL/hr, Administer over 1 Hours, Once, On Mon03/29/24 at 0007, For 1 dose New Bag 03/29/2024 12:14 AM CDT 1,000 mL 1000 mL/hr documented in this encounter Active and Recently Administered Medications Times are shown in CDT. Scheduled Medication Order 03/27/2024 03/28/2024 03/29/2024 morphine injection 4 mg (COMPLETED) 4 mg, intravenous, Administer over 4 Minutes, Once, On Nicole 03/28/24 at 2337, For 1 dose, Indications: Pain 2339 (Given - Provider: Gissel Garcia RN) morphine injection 4 mg (COMPLETED) 4 mg, intravenous, Administer over 4 Minutes, Once, On Mon03/29/24 at 0140, For 1 dose, Indications: Pain 0141 (Given - Provid er: Gissel Garcia RN) ondansetron (ZOFRAN) injection 4 mg (COMPLETED) 4 mg, intravenous, Administer over 2 Minutes, Once, On Mon03/28/24 at 2018, For 1 dose, Indications: Nausea, Vomiting 2020 (Given - Provider: Gissel Garcia RN) ondansetron (ZOFRAN) injection 4 mg (COMPLETED) 4 mg, intravenous, Administer over 2 Minutes, Once, On Nicole 03/28/24 at 2337, For 1 dose, Indications: Nausea, Vomiting 2339 (Given - Provider: Gissel Garcia RN) pantoprazole (PROTONIX) 40 mg in sodium chloride 0.9% 10 mL IV Syringe (COMPLETED) 40 mg, intravenous, at 300 mL/hr, Administer over 2 Minutes, Once, On Mon03/29/24 at 0008, For 1 dose, For IV administration, reconstitute 40 mg vial with 10 mL sodium chloride 0.9% for injection for a final concentration of 4 mg/mL, Indications: Treatment of Non-Bleeding Gastric Disorder 0014 (Given - Provid er: Gissel Garcia RN) sodium chloride 0.9% bolus 1,000 mL (COMPLETED) 1,000 mL, intravenous, at 1,000 mL/hr, Administer over 1 Hours, Once, On Mon03/29/24 at 0007, For 1 dose 0014 (New Bag - Provider: Gissel Garcia RN)0137 (Stopped - Provider: Gissel Garcia RN) PRN Medication Order 03/27/2024 03/28/2024 03/29/2024 ioversoL (OPTIRAY 350) syringe 75 mL (COMPLETED) 75 mL, intravenous, Once in imaging, contrast, Starting on Mon03/29/24 at 0023, For 1 dose 0024 (Contrast Given - Provider: Bebeto Jiménez RT) documented in this encounter Orders Nursing Count Last Ordered Date First Orde red Date CONTINUOUS PULSE OXIMETRY 1 03/28/2024 IV Count Last Ordered Date First Orde red Date SALINE LOCK IV 1 03/28/2024 documented in this encounter Care Teams [employer] Tra[employer] Relationship Specialty Start Date End Date Maurice Duff Jr., MD [address] [phone] PCP - General Family Medicine 03/11/24 documented as of this encounter
--- OUTSIDE RECORDS SUMMARY | 2024-07-30 14:10 | XMS_ITS | Encounter Summary ---
Author Organization [facility] Healthcare Address [address] [place] [address] Care Team Providers Care Contact Lens Lathe Operator Name Role Phone Gwen, Gary Primary Care Provider [phone] Reason for Referral * Diagnostic Imaging (Routine) - Closed Specialty Diagnoses / Procedures Referred By María Elena t Referred To Contact Diagnoses Breast cancer screening by mammogram Family history of breast cancer in mother Procedures Screening Mammogram Bilateral W Aura Jha MD Phone: tel: fax: [address] [place] [address] Referral ID Status Reason Start Date Expiration Date Visits Re quested Visits Authorized [id number] Closed 11/08/2023 12/07/2024 1 1 Reason for Visit * Diagnostic Imaging (Routine) - Closed Specialty Diagnoses / Procedures Referred By María Elena rand Referred To Contact Diagnoses Breast cancer screening by mammogram Family history of breast cancer in mother Procedures Screening Mammogram Bilateral W Aura Jha MD Phone: tel: fax: [address] [place] [address] Referral ID Status Reason Start Date Expiration Date Visits Re quested Visits Authorized [id number] Closed 11/08/2023 12/07/2024 1 1 Encounter Details Date Type Department Care Team (Latest Contact Info) Description 01/12/2024 8:10 AM CDT - 01/12/2024 11:59 PM CDT Hospital Encounter [facility] at [address] [phone] Breast cancer screening by mammogram; Family history of breast cancer in mother Discharge Disposition: Discharge to home or self [...] Procedure Name Priority Date/Time Associated Diagnosis Comments SCREENING MAMMOGRAM BILATERAL W RACHELL Schedule Routine, Read Routine (OP Routine) 01/12/2024 9:15 AM CDT Breast cancer screening by mammogram Family history of breast cancer in mother documented in this encounter Results * Screening Mammogram Bilateral W Rachell (01/12/2024 9:15 AM CDT) Anatomical Region Laterality Modality Breast Bilateral Mammography Narrative 01/16/2024 12:02 PM CDT Examination: Screening Mammogram Bilateral W Rachell: 01/12/24 Clinical: Breast cancer screening by mammogram [...] Horne MD IMG MAMMO PROCEDURES Final Result documented in this encounter Visit Diagnoses Diagnosis Breast cancer screening by mammogram Family history of breast cancer in mother Family history of malignant neoplasm of breast documented in this encounter Care Teams Contact Lens Lathe Operator Relationship Specialty Start Date End Date Avery Hidalgo DO PCP - General 03/02/20 03/10/24 documented as of this encounter
--- OUTSIDE RECORDS SUMMARY | 2024-07-30 14:10 | XMS_ITS | Encounter Summary ---
Author Organization [facility] Healthcare Address [address] [place] [address] Care Team Providers Care Director Digital Name Role Phone Omega Khanna MD, [facility] Primary Care Provider Reason for Referral * Consultation (Routine) - Closed Specialty Diagnoses / Procedures Referred By Contac t Referred To Contact Gastroenterology Diagnoses Acute gastritis without hemorrhage, unspecified gastritis type Gastroesophageal reflux disease, unspecified whether esophagitis present Misty Brooks NP [address] [place] [address] Phone: tel: fax: [facility] Medical [facility] Gastroenterology at [facility] [address] [facility] [address], [place] [address] Phone: tel: fax: Referral ID Status Reason Start Date Expiration Date V isits Requested Visits Authorized [id number] Closed Specialty Services Required 03/28/2024 04/27/2025 1 1 Question Answer Process Instructions: THE AMBULATORY REFERRAL TO GASTROENTEROLOGY IS NOT AN ORDER FOR A PROCEDURE (I.E. EGD, COLONOSCOPY.) USE THE DIRECT SCHEDULING CASE REQUEST ORDER (GI50) IF THE PATIENT REQUIRES A PROCEDURE TO BE PERFORMED. Please select the performing region: [facility] [[id number]] Please select the performing department: [facility] [[id number]] # of visits: 1 Reason for Visit * Reason Comments Chest Pain Encounter Details Date Type Department Care Team (Late st Contact Info) Description 03/28/2024 5:07 AM CDT - 03/28/2024 9:36 AM CDT Emergency [facility] Emergency Department [address] [place] [address] Acute gastritis without hemorrhage, unspecified gastritis type (Primary Dx); Gastroesophageal reflux disease, unspecified whether esophagitis present; Chest pain, unspecified type Discharge Disposition: Discharge to home or self [...] Sign Reading Time Taken Comments Blood Pressure 92/61 03/28/2024 9:30 AM CDT Pulse 77 03/28/2024 9:35 AM CDT Temperature 36.7 ??C (98.1 ??F) 03/28/2024 5:02 AM CD T Respiratory Rate 22 03/28/2024 5:02 AM CDT Oxygen Saturation 90% 03/28/2024 9:35 AM CDT Inhaled Oxygen Concentration - - Weight 63 kg (139 lb) 03/28/2024 5:05 AM CDT Height 154.9 cm (5' 1 ) 03/28/2024 5:05 AM CDT Body Mass Index 26.26 03/28/2024 5:05 AM CDT documented in this encounter Discharge Instructions * Discharge Instructions* Misty Brooks NP - 03/28/2024 9:12 AM CDT Thankfully there was nothing life-threatening in your workup today. Most likely your symptoms are due to gastritis and GERD. Please continue taking your acid reflux medications as they are prescribed. I am prescribing you Zofran. You may take this as needed for nausea. I do recommend sticking to a bland diet over the next 24 hours and slowly advancing as you can tolerate. Please drink lots of water over the next couple of days. I placed a referral for you to the GI clinic. Please call them to schedule a follow up visit. Please return to the ER if you develop uncontrolled pain, chest pain, blood in your vomit or stool,vomiting and not able to tolerate oral intake. documented in this encounter Medications at Time of Discharge ARIPiprazole (ABILIFY) 2 mg tablet Take 2 tablets (4 mg total) by mouth daily 04/09/20 24 clonazePAM (KlonoPIN) 0.5 mg tablet TAKE 1 [...] month Take 1 tablet by mouth daily 4 04/09/20 traZODone (DESYREL) 50 mg tablet Take 2 tablets (100 mg total) by mouth nightly as needed for sleep 04/09/20 verapamiL (CALAN) 40 mg tablet Take 2 tablets (80 mg total) by mouth daily 04/09/20 24 documented as of this encounter Ordered Prescriptions Prescription Sig Dispense Quantity Refills Last Filled Start Date End Date ondansetron ODT (ZOFRAN-ODT) 4 mg disintegrating tablet Take 1 tablet (4 mg total) by mouth every 8 (eight) hours as needed for nausea or vomiting 20 tablet 03/28/2024 4 documented in this encounter Discharge Disposition Disposition Code Departure Means Destination Comment s Discharge to home or self care documented in this encounter ED Notes * Misty Brooks, CELIA - 03/28/2024 6:24 AM CDT HPI Chief Complaint Patient presents with Chest Pain HPI 38-year-old female with a past medical history of hyperlipidemia, bipolar disorder, GERD, reports to the ER for chest pain and N/V. Patient reports developing left-sided chest pain that radiates to the midsternal region, around 11:00 a.m. yesterday. Patient describes the pain as pressure. Pain is constant. Patient also endorses having associated nausea/vomiting. Patient reports multiple episodes of emesis and has not been able to tolerate oral intake. Patient does endorse having chills. Patientdenies having any known fevers, palpitations, shortness of breath, abdominal pain, bloody emesis orstool, diarrhea, or urinary symptoms. Patient History: Patient Active Problem List Diagnosis Date Noted Gastroesophageal reflux disease without esophagitis 03/11/2024 Bipolar disorder, in partial remission, most recent episode mixed (CMS/HCC) ([facility]) 03/11/2024 PSVT (paroxysmal supraventricular tachycardia) ([facility]) 03/11/2024 Mixed hyperlipidemia 03/11/2024 Vaginal [...] Systems Review of Systems Constitutional: Positive for chills. Negative for fever. HENT: Negative for congestion and sore throat. Eyes: Negative for pain and visual disturbance. Respiratory: Negative for cough and shortness of breath. Cardiovascular: Positive for chest pain. Negative for palpitations. Gastrointestinal: Positive for nausea and vomiting. Negative for abdominal pain, constipation and diarrhea. Genitourinary: Negative for difficulty urinating, dysuria, flank pain, frequency, hematuria and urgency. Musculoskeletal: Negative for arthralgias, back pain and myalgias. Neurological: Negative for dizziness, syncope, weakness, light-headedness, numbness and headaches. Physical Exam ED Triage Vitals Temp Pulse Resp BP SpO2 03/28/24 0502 03/28/24 0502 03/28/24 0502 03/28/24 0458 03/28/24 0502 36.7 ??C (98.1 ??F) 64 22 138/75 100 % Temp src Heart Rate Source Patient Position BP Location FiO2 (%) 03/28/24 0502 -- -- -- -- Oral Height Height Method Weight Weight Method 03/28/24 0505 -- 03/28/24 0505 -- 1.549 m (5' 1 ) 63 kg (139 lb) Physical Exam Vitals and nursing note reviewed. General: Appears in discomfort, well-nourished, in no acute distress Skin: Warm, dry, and intact, no rashes, lesions, or ulcers HENT: normocephalic, mucosa pink and moist, trachea midline, neck supple, no adenopathy Eyes: sclera white, conjunctiva pink, eyelids symmetrical, PERRLA Pulmonary: thoracic symmetric, respirations unlabored, lungs clear bibasilar CV: Audible S1 S2 heart sounds, no murmurs, gallops, or rubs, extremities warm, no edema present, 2+ radial and DP pulses present GI: Abd is not distended, bowel sounds present in all 4 quadrants, soft, non- tender, no palpable masses or hernias, no tenderness with palpation, there is no rebound tenderness or guarding present MSK: Steady gait, full ROM and 5/5 strength in all extremities, No swelling or deformity, nails without clubbing or cyanosis Neuro: A&O to time, person, and place, CN III-VIII intact, Intact sensation to touch in all extremities Psych: Good insight and judgment, appropriate mood and affect. MDM Heart Score History (Anamnesis): 1 EC Age: 1 Risk factors: 1 Troponin: 0 Heart Score Total: 2 Medical Decision Making HPI and comorbidities: 38-year-old female with a past medical history of hyperlipidemia, bipolar disorder, GERD, reports to the ER for chest pain and N/V. Patient denies having any known fevers, palpitations, shortness of breath, abdominal pain, bloody emesis or stool, diarrhea, or urinary symptoms. Exam findings: On exam, patient is afebrile and not tachycardic. Patient does appear in discomfort.No heart murmurs, gallops, friction rubs noted. Abdomen is not distended, soft, nontender with palpation. Differential Dx and plan: High probability for GERD, gastritis, esophagitis, PUD. Lower concern forACS, pancreatitis, cholecystitis. I will obtain a CBC, CMP, troponin series, lipase, UA, EKG. I will give IV fluids, Zofran, famotidine, GI cocktail for symptom control. Dispo pending results. Problems Addressed: Acute gastritis without hemorrhage, unspecified gastritis type: undiagnosed new problem with uncertain prognosis Chest pain, unspecified type: complicated acute illness or injury Gastroesophageal reflux disease, unspecified whether esophagitis present: chronic illness or injurywith exacerbation, progression, or side effects of treatment Amount and/or Complexity of Data Reviewed External Data Reviewed: notes. Labs: ordered. Decision-making details documented in ED Course. Radiology: ordered and independent interpretation performed. Decision-making details documented in ED Course. ECG/medicine tests: ordered and independent interpretation performed. Decision- making details documented in ED Course. Risk Prescription drug management. ED Course as of 03/28/24 0913 Time: 03/28 628 Comment: Independent review of the EKG. Normal sinus rhythm. No ST elevation or depression. No T-wave inversion. By: Misty Brooks NP Time: 03/28 833 Value: XR Chest 1 Vw Comment: IMPRESSION: Clear lungs. No pleural effusion or pneumothorax. Heart size and mediastinal contours are within normal limits. Electronically signed by: Russell Newsome M.D. By: Misty Brooks NP Time: 03/28 833 Value: Anion gap(!): 22 Comment: (Reviewed) By: Misty Brooks NP Time: 03/28 857 Value: Trop T hs: <6 Comment: (Reviewed) By: Misty Brooks NP Time: 03/28 857 Comment: No acute findings in the patient's workup. Likely dehydrated causing an elevated anion gap. She did receive IV fluids. This is likely downtrend. Troponin negative x2. No ischemic changes on her EKG. Heart score 2. Can rule out ACS and arrhythmias the cause of her symptoms. Most likely gastritis/GERD causing her symptoms. Re-evaluated the patient. She reports resolution of all of her symptoms. Attempting p.o. challenge at this time. She does request a GI referral as she has been unsuccessful obtaining 1 herself. I think this is reasonable given her significant history and PCP recommendation for an EGD. By: Misty Brooks NP Time: 03/28 912 Comment: Patient tolerated oral intake. Patient feels well enough to go home. Strict return precautions discussed. Patient reports understanding and agrees with this plan. By: Misty Brooks NP Final diagnoses: Acute gastritis without hemorrhage, unspecified gastritis type Gastroesophageal reflux disease, unspecified whether esophagitis present Chest pain, unspecified type Misty Brooks NP 03/28/24 0913 * Jeanie Wood RN - 03/28/2024 5:07 AM CDT Bed: ED24 Expected date: Expected time: Means of arrival: Comments: Jeanie Wood RN 03/28/24 0507 * Kasia Ferrer RN - 03/28/2024 4:58 AM CDT Chest pain across the upper chest starting at 11pm yesterday. States pressure 8/10. Nausea and vomiting starting at the same time . Denies abdominal pain documented in this encounter Plan of Treatment Scheduled Referrals Name Type Priority Associated Diagnoses Order Schedule Ambulatory referral to Gastroenterology Outpatient Referral Routine Acute gastritis without hemorrhage, unspecified gastritis type Gastroesophageal reflux disease, unspecified whether esophagitis present Expected: 04/11/2024 (Approximate), Expires: 03/28/2025 documented as of this encounter Procedures Procedure Name Priority Date/Time Associated Diagnosis Comments TROPONIN T HIGH-SENSITIVITY 2-HOUR Timed 03/28/2024 7:56 AM CDT DIFFERENTIAL AUTO STAT 03/28/2024 6:0 5 AM CDT CBC WITH AUTO DIFFERENTIAL STAT 03/28/2024 6:05 AM CDT XR CHEST 1 VIEW ED 03/28/2024 6:03 AM CDT TROPONIN T HIGH-SENSITIVITY SERIES (BASELINE, 2HR, 4HR, 6HR) STAT 03/28/2024 5:52 AM CDT EGFR STAT 03/28/2024 5:52 AM CDT LIPASE STAT 03/28/2024 5:52 AM CDT COMPREHENSIVE METABOLIC PANEL STAT 03/28/2024 5:52 AM CDT ECG 12-LEAD STAT 03/28/2024 4:43 AM CDT documented in this encounter Results * Troponin T high-sensitivity 2-hour (03/28/2024 7:56 AM CDT) Trop T hs <6 <=14 ng/L Comment: Interpretive Data For further hscTnT resources including the diagnostic algorithm and an aid in interpretation, copy and paste this link: https://nrl.testcatalog.org/show/hsTrop Current Interpretive Data last revised 2020. Trop T hs delta 0 ng/L [facility] Trop T hs interp Insignificant [facility] Blood 03/28/2024 7:56 AM CDT 03/28/2024 8:16 AM CDT us Donald Sahu MD LAB BLOOD ORDERABLES Final Result [facility] [address] Department [place] [address] * (ABNORMAL) Differential, auto (03/28/2024 6:05 AM CDT) Neutrophil abs 8.6(H) 1.5 - 6.5 K/cumm Imm gran abs 0.1 0.0 - 0.1 K/cumm [facility] Lymphocyte abs 1.7 0.8 - 3.3 K/cumm [facility] Monocyte abs 0.5 0.2 - 0.8 K/cumm [facility] Eosinophil abs 0.0 0.0 - 0.5 K/cumm [facility] Basophil abs 0.0 0.0 - 0.1 K/cumm [facility] Neutrophil pct 79.2 % [facility] Comment: Interpretive Data Percent cell count reference ranges are not reported, since discordance with absolute values may lead to misinterpretation of CBC data. Current Interpretive Data was last revised on 2017. Imm gran pct 0.5 % [facility] Comment: Interpretive Data Percent cell count reference ranges are not reported, since discordance with absolute values may lead to misinterpretation of CBC data. Current Interpretive Data was last revised on 2017. Lymphocyte pct 15.3 % [facility] Comment: Interpretive Data Percent cell count reference ranges are not reported, since discordance with absolute values may lead to misinterpretation of CBC data. Current Interpretive Data was last revised on 2017. Monocyte pct 4.7 % [facility] Comment: Interpretive Data Percent cell count reference ranges are not reported, since discordance with absolute values may lead to misinterpretation of CBC data. Current Interpretive Data was last revised on 2017. Eosinophil pct 0.1 % [facility] Comment: Interpretive Data Percent cell count reference ranges are not reported, since discordance with absolute values may lead to misinterpretation of CBC data. Current Interpretive Data was last revised on 2017. Basophil pct 0.2 % [facility] Comment: Interpretive Data Percent cell count reference ranges are not reported, since discordance with absolute values may lead to misinterpretation of CBC data. Current Interpretive Data was last revised on 2017. Blood 03/28/2024 6:05 AM CDT 03/28/2024 6:05 AM CDT Donald Sahu MD LAB BLOOD ORDERABLES Final Result Performing Organization Address City/[facility]/ZIP Co de Phone Number [facility] [address] [employer] [place], [place] [id number] * (ABNORMAL) CBC with auto differential (03/28/2024 6:05 AM CDT) WBC 10.9(H) 3.8 - 9.9 K/cumm Hgb 14.7 11.9 - 15.5 g/dL [facility] Hct 44.4 35.6 - 45.5 % [facility] Plt 315 150 - 400 K/cumm [facility] MPV 11.0 9.1 - 12.3 fL [facility] RBC 5.10 3.90 - 5.20 M/cumm [facility] MCV 87.1 81.3 - 96.4 fL [facility] MCH 28.8 27.1 - 33.3 pg [facility] MCHC 33.1 32.3 - 35.7 g/dL [facility] RDW CV 13.7 11.1 - 14.9 % [facility] RDW SD 43.7 35.7 - 48.1 fL [facility] NRBC abs 0.00 0.00 - 0.01 K/cumm [facility] Blood (Blood, Venous) 03/28/2024 6:05 AM CDT 03/28/2024 6:05 AM CDT Donald Sahu MD LAB BLOOD ORDERABLES Final Result [facility] [address] Department [place] [facility] [address] * XR Chest 1 Vw (03/28/2024 6:03 AM CDT) Anatomical Region Laterality Modality Body, Chest N/A Computed Radiogr aphy 03/28/2024 8:21 AM CDT Impressions 03/28/2024 8:21 AM CDT Clear lungs. ??No pleural effusion or pneumothorax. ??Heart size and mediastinal contours are within normal limits. Electronically signed by: Russell Newsome M.D. Narrative 03/28/2024 8:21 AM CDT EXAMINATION: 1 view chest radiograph Procedure Note Russell Newsome MD - 03/28/2024 EXAMINATION: 1 view chest radiograph IMPRESSION: Clear lungs. No pleural effusion or pneumothorax. Heart size and mediastinal contours are within normal limits. Electronically signed by: Russell Newsome M.D. us Donald Sahu MD IMG XR PROCEDURES Final Re sult * eGFR (03/28/2024 5:52 AM CDT) eGFR >90 >=60 mL/min/1. 73 [...] data was last reviewed 2021. Blood 03/28/2024 5:52 AM CDT 03/28/2024 6:05 AM CDT Donald Sahu MD LAB BLOOD ORDERABLES Final Result Performing Organization Address [facility] Co de Phone Number [facility] [address] Department [place] [address] * Troponin T high-sensitivity series (baseline, 2hr, 4hr, 6hr) (03/28/2024 5:52 AM CDT) Trop T hs <6 <=14 ng/L Comment: Interpretive Data For further hscTnT resources including the diagnostic algorithm and an aid in interpretation, copy and paste this link: https://nrl.testcatalog.org/show/hsTrop Current Interpretive Data last revised 2020. Blood 03/28/2024 5:52 AM CDT 03/28/2024 6:05 AM CDT Donald Sahu MD LAB BLOOD ORDERABLES Final Result Performing Organization Address [facility] Co de Phone Number [facility] [address] Department [place] [address] * Lipase (03/28/2024 5:52 AM CDT) Pathologist [facility] Lipase 24 10 - 99 Units/L Blood (Blood, Venous) 03/28/2024 5:52 AM CDT 03/28/2024 6:05 AM CDT Donald Sahu MD LAB BLOOD ORDERABLES Final Result Performing Organization Address [facility] Co de Phone Number [facility] [address] Department [facility] [place], [place] [phone] * (ABNORMAL) Comprehensive metabolic panel (03/28/2024 5:52 AM CDT) Sodium 138 135 - 145 mmol/L Potassium, pl 4.1 3.3 - 4.9 mmol/L [facility] Chloride 98 97 - 110 mmol/L [facility] CO2 18(L) 22 - 32 mmol/L [facility] Anion gap 22(H) 2 - 15 mmol/L [facility] BUN 13 6 - 25 mg/dL [facility] Creatinine 0.65 0.60 - 1.10 mg/dL [facility] Glucose 149 70 - 199 mg/dL [facility] Comment: Interpretive Data Fasting glucose [...] interpretive data was last revised 2022. Calcium 10.2 8.5 - 10.3 mg/dL [facility] Bilirubin, total 0.5 0.1 - 1.2 mg/dL [facility] Protein, pl 8.7(H) 6.5 - 8.5 g/dL [facility] Albumin 4.9 3.5 - 5.0 g/dL [facility] Alk phos 98 40 - 130 Units/L [facility] ALT 35 7 - 45 Units/L [facility] AST 28 10 - 45 Units/L [facility] Blood 03/28/2024 5:52 AM CDT 03/28/2024 6:05 AM CDT Donald Sahu MD LAB BLOOD ORDERABLES Final Result [facility] [address] Department [place] [address] * ECG 12 lead (03/28/2024 4:43 AM CDT) 03/28/2024 4:43 AM CDT Narrative [facility] - 03/28/2024 2:39 PM CDT Vent Rate: 62 bpm RR Interval: 955 msec CO Interval: 103 msec QRS Duration: 88 msec QT Interval: 433 msec QTC Interval: 439 msec P-R-T [place]: 50 - 34 - 56 degrees IMPRESSION: SINUS RHYTHM WITH SHORT CO INTERVAL BORDERLINE ECG Electronically Signed By: Juan Sue MD mobap us Donald Sahu MD ECG ORDERABLES Final Resu lt [facility] documented in this encounter Visit Diagnoses Diagnosis Acute gastritis without hemorrhage, unspecified gastritis type- Primary Gastroesophageal reflux disease, unspecified whether esophagitis present Chest pain, unspecified type documented in this encounter Administered Medications Inactive Administered Medications - up to 3 most recent administrations Medication Order MAR Action Action Date Dose Rate Site al & mag hydroxide simethicone-lidocaine oral suspension mixture 40 mL, oral, Once, On Nicole 03/28/24 at 0624, For 1 dose Given 03/28/2024 6:26 AM CDT 40 mL aspirin chewable tablet 324 mg 324 mg, oral, Once, On Nicole 03/28/24 at 0440, For 1 dose, Indications: Chest PainIndications:Chest Pain Given 03/28/2024 7:13 AM CDT 324 mg famotidine (PEPCID) injection 40 mg 40 mg, intravenous, Administer over 2 Minutes, Once, On Nicole 03/28/24 at 0624, For 1 dose Given 03/28/2024 6:27 AM CDT 40 mg Lactated Ringer's (LR) bolus 1,000 mL 1,000 mL, intravenous, Once, On Nicole 03/28/24 at 0624, For 1 dose New Bag 03/28/2024 6:28 AM CDT 1,000 mL morphine injection 4 mg 4 mg, intravenous, Administer over 4 Minutes, Once, On Nicole 03/28/24 at 0653, For 1 dose Given 03/28/2024 6:54 AM CDT 4 mg ondansetron (ZOFRAN) 4 mg/2 mL injection - ADS Override Pull Starting on Nicole 03/28/24 at 0539, For 1 dose, Created by cabinet override ondansetron (ZOFRAN) injection 4 mg 4 mg, intravenous, Administer over 2 Minutes, Once, On Nicole 03/28/24 at 0542, For 1 dose, Indications: Nausea, VomitingIndications:Nausea,Vomi ting Given 03/28/2024 5:41 AM CDT 4 mg ondansetron (ZOFRAN) injection 4 mg 4 mg, intravenous, Administer over 2 Minutes, Once, On Nicole 03/28/24 at 0625, For 1 dose Given 03/28/2024 6:34 AM CDT 4 mg documented in this encounter Active and Recently Administered Medications Times are shown in CDT. Scheduled Medication Order 03/26/2024 03/27/2024 03/28/2024 al & mag hydroxide simethicone-lidocaine oral suspension mixture (COMPLETED) 40 mL, oral, Once, On Nicole 03/28/24 at 0624, For 1 dose 0626 (Given - Provid er: Jeanie Wood RN) aspirin chewable tablet 324 mg (COMPLETED) 324 mg, oral, Once, On Nicole 03/28/24 at 0440, For 1 dose, Indications: Chest Pain 0557 (Hold - Provide r: Jeanie Wood RN - Reason: Other - Comment: pt nauseated and wants to wait until zofran starts to work)0713 (Given - Provider: Adriana Rm RN - Comment: pt less nausea and would like to attempt to take dose previously ordered.) famotidine (PEPCID) injection 40 mg (COMPLETED) 40 mg, intravenous, Administer over 2 Minutes, Once, On Nicole 03/28/24 at 0624, For 1 dose 0627 (Given - Provid er: Jeanie Wood RN) Lactated Ringer's (LR) bolus 1,000 mL (COMPLETED) 1,000 mL, intravenous, Once, On Nicole 03/28/24 at 0624, For 1 dose 0628 (New Bag - Prov ider: Jeanie Wood RN)0936 (Stopped - Provider: Adriana Rm RN) morphine injection 4 mg (COMPLETED) 4 mg, intravenous, Administer over 4 Minutes, Once, On Nicole 03/28/24 at 0653, For 1 dose 0654 (Given - Provid er: Jeanie Wood RN) ondansetron (ZOFRAN) injection 4 mg (COMPLETED) 4 mg, intravenous, Administer over 2 Minutes, Once, On Nicole 03/28/24 at 0542, For 1 dose, Indications: Nausea, Vomiting 0541 (Given - Provid er: Jeanie Wood RN) ondansetron (ZOFRAN) injection 4 mg (COMPLETED) 4 mg, intravenous, Administer over 2 Minutes, Once, On Nicole 03/28/24 at 0625, For 1 dose 0634 (Given - Provid er: Jeanie Wood RN) documented in this encounter Orders Nursing Count Last Ordered Date First Orde red Date CONTINUOUS PULSE OXIMETRY 03/28/2024 IV Count Last Ordered Date First Orde red Date SALINE LOCK IV 1 03/28/2024 documented in this encounter Care Teams Director Digital Relationship Specialty Start Date End Date Maurice Duff Jr., MD [address] [place] [id number] PCP - General Family Medicine 03/11/24 documented as of this encounter
--- OUTSIDE RECORDS SUMMARY | 2024-07-30 14:10 | XMS_ITS | Encounter Summary ---
Author Organization [facility] Healthcare Address [address] [place] [address] Care Team Providers Care Baffle Installer Name Role Phone Omega Khanna MD, Maurice Parks Primary Care Provider Reason for Visit * Reason Comments New Patient Encounter Details Date Type Department Care Team (Latest Contact Info) Description 03/11/2024 9:30 AM CDT Office Visit [facility] [place] [address] [id number] Maurice Duff Jr., MD [address] [address] Gastroesophageal reflux disease without esophagitis (Primary Dx); Bipolar disorder, in partial remission, most recent episode mixed (CMS/HCC) (HCC); PSVT (paroxysmal supraventricular tachycardia) ([facility]); Mixed hyperlipidemia; Vaginal vestibulitis Social History Tobacco Use Types [...] Reading Time Taken Comments Blood Pressure 124/78 03/11/2024 9:31 AM CDT Pulse 78 03/11/2024 9:31 AM CDT Temperature 37.3 ??C (99.1 ??F) 03/11/2024 9:31 AM CD T Respiratory Rate - - Oxygen Saturation 98% 03/11/2024 9:31 AM CDT Inhaled Oxygen Concentration - - Weight 62.1 kg (137 lb) 03/11/2024 9:31 AM CDT Height 156 cm (5' 1.42 ) 03/11/2024 9:31 AM CDT Body Mass Index 25.54 03/11/2024 9:31 AM CDT documented in this encounter Ordered Prescriptions Prescription Sig Dispense Quantity Refills Last Filled Start Date End Date famotidine (PEPCID) 40 mg tablet Take 1 tablet (40 mg total) by mouth nightly 90 tablet 1 03/11/[address] (PROTONIX) 40 mg EC tablet Take 1 tablet (40 mg total) by mouth daily 90 tablet 1 03/11/2024 4 documented in this encounter Progress Notes * Maurice Duff Jr., MD - 03/11/2024 9:30 AM CDT Images from the original note were not included. Chief Complaint Patient presents with New Patient HPI Patient is here to establish care. She does have a history of several medical problems. Recently she is having more issues with acid reflux disease despite Prilosec 40 mg daily. She started taking Pepcid 20 mg at bedtime and this does seem to be helping intermittently. She has had upper endoscopiespreviously and she did undergo esophageal dilatation. She is not complaining of any difficulty swallowing just significant reflux issues. She does follow with Psychiatry and takes several medicines for her bipolar disorder which is stable. She has a history of SVT which is currently stable with verapamil. She follows a low-salt, low-fat diet. She is a nonsmoker. She is up-to-date with her female exam. She denies any other new complaints Review of Systems Constitutional: Negative for chills, fatigue and fever. HENT: Negative for congestion, ear pain, facial swelling, postnasal drip, sinus pain and sore throat. Eyes: Negative for pain, discharge and visual disturbance. Respiratory: Negative for cough, chest tightness, shortness of breath and wheezing. Cardiovascular: Negative for chest pain, palpitations and leg swelling. Gastrointestinal: Negative for abdominal pain, blood in stool and vomiting. Positive for dyspepsia Endocrine: Negative for polyuria. Genitourinary: Negative for difficulty urinating, frequency and hematuria. Musculoskeletal: Negative for back pain and joint swelling. Skin: Negative for rash. Neurological: Negative for weakness, light-headedness and headaches. Psychiatric/Behavioral: Negative for dysphoric mood and sleep disturbance. The patient is not nervous/anxious. All other systems reviewed and are negative. BP 124/78 Pulse 78 Temp 37.3 ??C (99.1 ??F) Ht 156 cm (5' 1.42 ) Wt 62.1 kg (137 lb) [id number]% BMI 25.54 kg/m?? Body mass index is 25.54 kg/m??. Physical Exam Vitals reviewed. Constitutional: Appearance: She is well-developed. HENT: Head: Normocephalic. Right Ear: Tympanic membrane, ear canal and external ear normal. Left Ear: Tympanic membrane, ear canal and external ear normal. Nose: Nose normal. Mouth/Throat: Mouth: Mucous membranes are moist. Pharynx: Oropharynx is clear. Eyes: Extraocular Movements: Extraocular movements intact. Conjunctiva/sclera: Conjunctivae normal. Pupils: Pupils are equal, round, and reactive to light. Neck: Comments: No lymphadenopathy. No thyromegaly Cardiovascular: Rate and Rhythm: Normal rate and regular rhythm. Heart sounds: Normal heart sounds. Pulmonary: Breath sounds: Normal breath sounds. Abdominal: General: Bowel sounds are normal. Palpations: Abdomen is soft. Comments: No masses or tenderness Musculoskeletal: General: Normal range of motion. Cervical back: Normal range of motion and neck supple. Skin: General: Skin is warm and dry. Capillary Refill: She has +2 pulses to her feet. No edema Neurological: General: No focal deficit present. Mental Status: She is alert and oriented to person, place, and time. Psychiatric: Mood and Affect: Mood normal. Behavior: Behavior normal. Judgment: Judgment normal. Comments: He did answer questions pleasantly and appropriately Diagnoses and all orders for this visit: Gastroesophageal reflux disease without esophagitis (Primary) Assessment & Plan: Patient is having exacerbation. Change to Protonix 40 mg daily and increase Pepcid to 40 mg at bedtime. 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 She will call if she has continuing problems Bipolar disorder, in partial remission, most recent episode mixed (CMS/HCC) ([facility]) Assessment & Plan: Stable with Klonopin, Abilify, trazodone. Follow with psychiatrist PSVT (paroxysmal supraventricular tachycardia) ([facility]) Assessment & Plan: Stable with verapamil Mixed hyperlipidemia Assessment & Plan: Continue low-fat diet and exercise Vaginal vestibulitis Assessment & Plan: Continue to follow with gynecology. Continue Cymbalta Other orders - pantoprazole DR (PROTONIX) 40 mg EC tablet; Take 1 tablet (40 mg total) by mouth daily - famotidine (PEPCID) 40 mg tablet; Take 1 tablet (40 mg total) by mouth nightly Maurice Duff Jr., MD documented in this encounter Miscellaneous Notes * Assessment & Plan Note - Maurice Duff Jr., MD - 03/11/2024 9:57 AM CDT Associated Problem(s): Vaginal vestibulitis Continue to follow with gynecology. Continue Cymbalta * Assessment & Plan Note - Maurice Duff Jr., MD - 03/11/2024 9:57 AM CDT Associated Problem(s): PSVT (paroxysmal supraventricular tachycardia) ([facility]) Stable with verapamil * Assessment & Plan Note - Mauriec Duff Jr., MD - 03/11/2024 9:57 AM CDT Associated Problem(s): Mixed hyperlipidemia Continue low-fat diet and exercise * Assessment & Plan Note - Maurice Duff Jr., MD - 03/11/2024 9:57 AM CDT Associated Problem(s): Bipolar disorder, in partial remission, most recent episode mixed (CMS/HCC) (HCC) Stable with Klonopin, Abilify, trazodone. Follow with psychiatrist * Assessment & Plan Note - Maurice Duff Jr., MD - 03/11/2024 9:56 AM CDT Associated Problem(s): Gastroesophageal reflux disease Patient is having exacerbation. Change to Protonix 40 mg daily and increase Pepcid to 40 mg at bedtime. 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 She will call if she has continuing problems documented in this encounter Plan of Treatment Not on file documented as of this encounter Visit Diagnoses Diagnosis Gastroesophageal reflux disease without esophagitis- Primary Esophageal reflux Bipolar disorder, in partial remission, most recent episode mixed (CMS/HCC) (HCC) PSVT (paroxysmal supraventricular tachycardia) (HCC) Paroxysmal supraventricular tachycardia Mixed hyperlipidemia Vaginal vestibulitis documented in this encounter Discontinued Medications Medication Sig Discontinue Reason Start Date End Da te ARIPiprazole (ABILIFY) 2 mg tablet Take 1 tablet (2 mg total) by mouth daily 03/11/2024 lamoTRIgine (LaMICtal) 100 mg tablet 11/20/2023 03/11/2024 omeprazole (PriLOSEC) 20 mg capsule Take 1 capsule (20 mg total) by mouth 03/11/2024 omeprazole (PriLOSEC) 40 mg capsule Take 1 capsule (40 mg total) by mouth daily 03/11/[address] (PROTONIX) 40 mg EC tablet Take 1 tablet (40 mg total) by mouth daily Reorder 03/11/2024 famotidine (PEPCID) 40 mg tablet Take 1 tablet (40 mg total) by mouth nightly Reorder 03/11/2024 documented as of this encounter Historical Medications * This list may reflect changes made after this encounter. famotidine (PEPCID) 40 mg tablet Take 1 tablet (40 mg total) by mouth nightly 03/11/[address] (PROTONIX) 40 mg EC tablet Take 1 tablet (40 mg total) by mouth daily 03/11/2024 omeprazole (PriLOSEC) 40 mg capsule Take 1 capsule (40 mg total) by mouth daily 03/11/2024 ARIPiprazole (ABILIFY) 2 mg tablet Take 2 tablets (4 mg total) by mouth daily 04/09/2024 added in this encounter Care Teams Baffle Installer Relationship Specialty Start Date End Date Maurice Duff Jr., MD [address] [address] PCP - General Family Medicine 03/11/24 documented as of this encounter
--- OUTSIDE RECORDS SUMMARY | 2024-07-30 14:10 | XMS_ITS | Encounter Summary ---
Author Organization [facility] Healthcare Address [address] [place] [address] Care Team Providers Care Quality Specialist Name Role Phone Omega Khanna MD, Maurice Parks Primary Care Provider Reason for Visit * Reason Onset Date Comments Chest Pain 03/28/2024 Encounter Details Date Type Department Care Team (Late st Contact Info) Description 03/28/2024 Nurse Triage [facility] [place] [address] [phone] Maurice Duff Jr., MD [facility] [address] Social History Tobacco Use Types Packs/Day Years [...] Miscellaneous Notes * Telephone Encounter - Agnes Menendez RN - 03/28/2024 6:16 PM CDT Pt reported chest pain 8/10 above left breast radiating to right chest for at least 2 hours. Pt wasseen in the ED this morning and pain started on yesterday. Denied arm or jaw pain.Pt was directed to the ED for evaluation. Reason for Disposition SEVERE chest pain Protocols used: Chest [id number] * Telephone Encounter - Agnes Menendez RN - 03/28/2024 6:07 PM CDT Regarding: Chest pain and acid reflux - ----- Message from Nolan Leach sent at 03/28/2024 6:05 PM CDT ----- The patient is experiencing chest pain and acid reflux. The patient was in the ER this morning. Thepatient wants to know what she should do. documented in this encounter Plan of Treatment Not on file documented as of this encounter Visit Diagnoses Not on filedocumented in this encounter Care Teams Quality Specialist Relationship Specialty Start Date End Date Maurice Duff Jr., MD [address] [place] [id number] PCP - General Family Medicine 03/11/24 documented as of this encounter
--- OUTSIDE RECORDS SUMMARY | 2024-07-30 14:10 | XMS_ITS | Encounter Summary ---
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 Role Phone Omega Khanna MD, Maurice Parks Primary Care Provider Reason for Visit * Reason Comments Chest Pain * Auth/Cert (Routine) Specialty Diagnoses / Procedures Referred By Contac t Referred To Contact Diagnoses Intractable nausea and vomiting Chest pain, unspecified type Nausea and vomiting, unspecified vomiting type Procedures na Referral ID Status Reason Start Date Expiration Date Visits Re quested Visits Authorized [id number] 1 1 Encounter Details Date Type Department Care Team (Latest Contact Info) Description 04/01/2024 3:30 PM CDT - 04/01/2024 4:00 PM CDT Surgery [facility] GI Center [facility] [place] [address] Bruno Cobb MD [address] [place] [id number] ESOPHAGOGASTRODUODENOSCOPY BIOPSY Surgery Details Date/Time Status Location OR Service Patient Class Case Class Case Type Trauma Case? 04/01/2024 3:30 PM Posted [facility] ENDOSCOPY GI 02 Gastroenterology Inpatient Elective Panel 1 Procedure LRB Anes Op Region Wound Class Comments ESOPHAGOGASTRODUODENOSCOPY BIOPSY N/A Monitor Anesthesia Care Surgeon Surgeon Role Service Panel Bruno Cobb MD Primary Gastroente rology 1 documented in this encounter Social History Tobacco [...] Sign Reading Time Taken Comments Blood Pressure 135/85 04/01/2024 3:37 PM CDT Pulse 62 04/01/2024 3:45 PM CDT Temperature 36.5 ??C (97.7 ??F) 04/01/2024 2:17 PM CD T Respiratory Rate 14 04/01/2024 3:45 PM CDT Oxygen Saturation 100% 04/01/2024 3:45 PM CDT Inhaled Oxygen Concentration - - Weight 63 kg (139 lb) 03/30/2024 10:37 PM CDT Height 154.9 cm (5' 0.98 ) 03/30/2024 10:37 PM C DT Body Mass Index 24.31 03/30/2024 10:37 PM CDT documented in this encounter Discharge Summaries * Shanti Freedman MD - 04/09/2024 12:50 PM CDT Inpatient Discharge Summary Patient Name - Ángela Ibrahim Patient Age - 38 yrs Patient - [id number] [facility] - [id number] Document Creation Date: 04/09/2024 Admitting Provider, : Bruno Cobb MD Discharge Provider, MD: Shanti Freedman MD Primary Care Physician at Discharge: Maurice Duff Jr., MD [phone] Admission Date: 03/30/2024 Discharge Date/time: 04/09/2024 Admission Location: [facility] LOS - LOS: 9 days DETAILS OF HOSPITAL STAY Hospital Problems/Diagnoses Principal Problem: Intractable nausea and vomiting Active Problems: Intractable vomiting Reason for Hospitalization: Hospital Course: The patient is a 39-year-old female with history of anxiety/depression, GERD, SVT on verapamil and very infrequent marijuana use (twice a month) who presented for intractable nausea and vomiting after returning from a trip to [place]. She has had several negative ER evaluations [...] verapamiL 40 mg tablet Commonly known as: ERVIN Start taking on: April 10, 2024 What [...] ARIPiprazole 2 mg tablet Commonly known as: ABILIFJs HYDROcodone-acetaminophen 5-325 mg per tablet Commonly known as: NORCO pantoprazole DR 40 mg EC tablet Commonly known as: PROTONIX Simpesse 0.15 mg-30 mcg (84)/10 mcg (7) tablets,dose pack,3 month Generic drug: levonorgestrel & ethinyl estradiol traZODone 50 mg tablet Commonly known as: DESYREL Where to Get Your Medications These medications were sent to [facility] [place], [place] - [address] [place] [id number] 30 mg capsule mirtazapine 7.5 [...] In process Phosphorus In process Thyroid Function [place] In process Operative Procedures Performed (If Blank, None Found): Procedure(s): ESOPHAGOGASTRODUODENOSCOPY BIOPSY Outpatient Follow-Up: Future Appointments Date Time Provider Department Center 04/19/2024 9:45 AM Juan Sue MD PhD [facility] CAR 200 Specialty 11/12/2024 1:30 PM Aura Horne MD [facility] OB 360 Specialty Please schedule an appointment with the following provider(s): No follow-up provider specified. ANCILLARY INFORMATION Other Procedures & Diagnostic Tests: ECG 12 lead Result Date: 03/31/2024 Vent Rate: 62 bpm RR Interval: 955 msec ID Interval: 101 msec QRS Duration: 86 msec QT Interval: 430 msec QTC Interval: 436 msec P-R-T Hedley: 47 - 24 - 56 degrees IMPRESSION: SINUS RHYTHM WITH SHORT ID INTERVAL POSSIBLE RIGHT VENTRICULAR CONDUCTION DELAY BORDERLINE ECG Electronically S[facility]: [facility] 12 lead Result Date: 03/31/2024 Vent Rate: 57 bpm RR Interval: 1035 msec ID Interval: 101 msec QRS Duration: 82 msec QT Interval: 418 msec QTC Interval: 413 msec P-R-T Hedley: 48 - 32 - 49 degrees IMPRESSION: SINUS BRADYCARDIA WITH SHORT ID INTERVAL BORDERLINE ECG Electronically Signed By: [facility] Card XR Chest PA Lateral [...] 5* 7 CREATININE mg/dL 0.81 0.73 0.75 [id number] mL/min/1.73 m2 >90 >90 >90 GLUCOSE mg/dL [...] Soft Diet effective now Question Answer Comment ([facility]) Diet type GI Diets GI: GI Soft [...] Cell Culture-based MDCK, Preservative Free, Antibiotic Free, Gtbnazqxpejyb61/02/2020 Influenza, Quadrivalent, Split, Preservative Free, Intramuscular 04/26/2018 [...] by mouth daily 30 tablet 1 04/10/2024 cariprazine (Vraylar) 1.5 mg capsule capsule Take 1 capsule (1.5 mg total) by mouth daily Medication called into primary pharmacy by dr emanuel 04/09/[address] (CYMBALTA) 30 mg capsule Take 1 capsule (30 mg total) by mouth with evening meal 30 capsule 1 04/09/2024 4 famotidine (PEPCID) 40 mg tablet Take 1 tablet (40 mg total) by mouth nightly 90 tablet 1 03/11/2024 mirtazapine (REMERON) 7.5 mg tablet Take 1 [...] documented in this encounter Progress Notes * Mericle, Gissel L., RD - 04/09/2024 12:07 PM CDT NUTRITION [...] 5* 7 CREATININE mg/dL 0.81 0.73 0.75 [id number] mL/min/1.73 m2 >90 >90 >90 CALCIUM mg/dL [...] Type of Weight Used for Estimated Kcals: [place] Total Protein Estimated Needs (gm): 57.12 Protein Needs Based on g/k.2 Type of Weight Used for Estimated Protein : [place] Dietary Orders (From admission, onward) Start Ordered 04/08/24 1549 Adult Diet GI Diets; GI Soft Diet effective now Question Answer Comment ([facility]) Diet type GI Diets GI: GI Soft [...] dinner with her parents. 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 Vitals: 04/08/24 1145 04/08/24 2016 04/09/24 [...] lozenge, 1 lozenge, mouth/throat, Q2H PRN, Nicholas Saba, DO calcium carbonate (TUMS) chewable tablet 500 [...] PRN, Bruno Cobb MD, 2 mg at 04/03/24955 ondansetron (ZOFRAN) injection 4 mg, 4 mg, intravenous, TID, Bruno Cobb MD, 4 mg at 04/08/24821 prochlorperazine (COMPAZINE) injection 5 mg, 5 mg, intravenous, Q6H PRN, Anya Lewis MD, 5 mgat 04/07/242223 ramelteon (ROZEREM) tablet 8 mg, 8 mg, oral, Nightly, Nicholas Saba, DO, 8 mg at 04/08/242053 sodium chloride 0.9% flush 5-10 mL, 5-10 mL, intra-catheter, Q12H ELLEN, Phoenixd, Bazgha Smooth, DO, 10mL at 04/08/242055 sodium [...] in medications at her outpatient pharmacy in [place]. No more nausea or vomiting present since Abilify stopped. Continue the patient on Mirtazapine 7.5 mg orally once daily at Night. Continue with Duloxetine 30 mg orally once daily with evening meal. Continue with PRN Clonazepam medications. Patient can follow up with her outpatient psychiatrist on discharge. Discussed with Dr Shanti Freedman via [employer] chat * Kevon Emanuel MD - 04/08/2024 [...] 1 lozenge, 1 lozenge, mouth/throat, Q2H PRN, Nicholsa Saba DO clonazePAM (KlonoPIN) tablet 0.5 mg, 0.5 mg, oral, TID PRN, Bruno Cobb MD, 0.5 mg at 04/07/242000 dextrose 5% and sodium chloride 0.45% infusion (premix), 75 mL/hr, intravenous, Continuous, Nicholas Saba DO, Last Rate: 75 mL/hr at 04/08/24 035, 75 mL/hr at 04/08/[address] (CYMBALTA) extended release capsule 30 mg, 30 mg, oral, Daily with evening meal, Kevon Emanuel MD, 30 mg at 04/07/24 183 enoxaparin (LOVENOX) syringe 40 mg, 40 mg, subcutaneous, Daily-2100, Nicholas Saab DO, 40 mg at 04/06/24 2122 famotidine (PEPCID) injection 20 mg, 20 mg, intravenous, Q12H ELLEN, Bruno Cobb MD, 20 mg at 04/08/24 1231 lidocaine (PF) (XYLOCAINE) 10 mg/mL (1 %) preservative free injection 10-20 mg, 1-2 mL, subcutaneous, Once, Nicholas Saba DO LORazepam (ATIVAN) injection 0.5 mg, 0.5 mg, intravenous, TID PRN, Bruno Cobb MD, 0.5 mg at 04/07/24 2138 mirtazapine (REMERON) tablet 7.5 mg, 7.5 mg, oral, Nightly, Kevon Emanuel MD, 7.5 mg at 04/07/242000 [Held by Provider] morphine injection 2 mg, 2 mg, intravenous, Q3H PRN, Bruno Cobb MD, 2 mg at 04/03/24 0956 ondansetron (ZOFRAN) injection 4 mg, 4 mg, intravenous, TID, Bruno Cobb MD, 4 mg at 04/08/24 0822 potassium chloride 40 mEq/100 mL in sterile water (premix) 40 mEq, 40 mEq, intravenous, Once, Ahmad, Bazgha Smooth, DO prochlorperazine (COMPAZINE) injection 5 mg, 5 mg, intravenous, Q6H PRN, Anya Lewis MD, 5 mgat 04/07/24 2224 ramelteon (ROZEREM) tablet 8 mg, 8 mg, oral, Nightly, Ahmad, Bazgha Smooth, DO, 8 mg at 04/07/242000 sodium chloride 0.9% flush 5-10 mL, 5-10 mL, intra-catheter, Q12H ELLEN, Ahmad, Bazgha Smooth, DO, 10mL at 04/08/24 0822 sodium chloride 0.9% flush 5-10 mL, 5-10 mL, intra-catheter, Q12H ELLEN, Ahmad, Bazgha Smooth, DO, 10mL at 04/08/24 0822 sodium chloride 0.9% flush 5-20 mL, 5-20 [...] Continue with PRN Clonazepam medications. Discussed with [employer] with GI team and Dr Saba. * Jeanie Ramos PA - 04/08/2024 9:13 AM CDT Pt JEREMY for HIDA scan this morning. Events of weekend reviewed. Refractory N/V. Still with limited PO. Unsuccessful dobhoff trial, dislodged with vomiting. Etiology of N/V yet to be determined. Suspect for post viral gastroparesis initially with mild improvement on Erythromycin but no significant globe changer weekend. Medications adjusted. Consider low dose TCA if psychiatry agreeable. Will follow. HIDA negative. She is feeling better today. Will trial PO. Medications adjusted yesterday, now off Aripiprazole. Last vomited overnight. Reviewed with psychiatry, prefers to hold on further medication adjustments at this time Discussed with Dr. Emanuel and Dr. Saba via [employer] Jeanie Ramos PA-C Cosigned by Anam Jenkins [...] vomiting after returning from a trip to [place]. She has had several negative ER evaluations [...] Saba DO, Last Rate: 75 mL/hr at 04/07/24 0911, 75 mL/hr at 04/07/[address] (CYMBALTA) extended release capsule 30 mg, 30 mg, oral, Daily with evening meal, Kevon Emanuel MD, 30 mg at 04/06/24 180 enoxaparin (LOVENOX) syringe 40 mg, 40 mg, subcutaneous, Daily-2100, Nicholas Sabaiaz, DO, 40 mg at 04/06/242121 famotidine (PEPCID) injection 20 mg, 20 mg, intravenous, Q12H ELLEN, Bruno Cobb MD, 20 mg at 04/07/24 0911 lidocaine (PF) (XYLOCAINE) 10 mg/mL (1 %) preservative free injection 10-20 mg, 1-2 mL, subcutaneous, Once, Nicholas Sabaiaz, DO LORazepam (ATIVAN) injection 0.5 mg, 0.5 mg, intravenous, TID PRN, Bruno Cobb MD, 0.5 mg at 04/07/24 1506 mirtazapine (REMERON) tablet 7.5 mg, 7.5 mg, oral, Nightly, Kevon Emanuel MD, 7.5 mg at 04/06/242118 [Held by Provider] morphine injection 2 mg, 2 mg, intravenous, Q3H PRN, Bruno Cobb MD, 2 mg at 04/03/24 0956 ondansetron (ZOFRAN) injection 4 mg, 4 mg, intravenous, TID, Bruno Cobb MD, 4 mg at 04/07/24 1459 potassium chloride 40 mEq in sodium chloride 0.9% 500 mL IVPB, 40 mEq, intravenous, Once, Nicholas Sabaiaz, DO, Last Rate: 130 mL/hr at 04/07/24 1509, 40 mEq at 04/07/24 1509 promethazine (PHENERGAN) suppository 25 mg, 25 mg, rectal, Q8H PRN, Nicholas Sabaiaz, DO ramelteon (ROZEREM) tablet 8 mg, 8 mg, oral, Nightly, Nicholas Saba Smooth, DO, 8 mg at 04/06/242118 sodium chloride 0.9% flush 5-10 mL, 5-10 mL, intra-catheter, Q12H ELLEN, Ahmad, Bazgha Smooth, DO, 10mL at 04/06/24 2122 sodium chloride 0.9% flush 5-10 mL, 5-10 [...] rectal phenergan. Considertca, message left with psych. Hida in am. EGD, right upper quadrant ultrasound showing hepatic steatosis, Lipase, hCG, TSH, C diff (although no diarrhea), EBV, CMV cortisol, COVID, brain MRI without etiology. Ongoing symptoms despite Zofran, Compazine, benzodiazepine, olanzapine, Benadryl. Her symptoms started 2 weeks after returning from [place] and recently starting a new job. Her [...] this finding Dvt ppx Lovenox * Katerina Eubanks RD - 04/06/2024 2:22 PM CDT NUTRITION [...] 11 10 CREATININE mg/dL 0.65 0.73 0.74 [id number] mL/min/1.73 m2 >90 >90 >90 CALCIUM mg/dL [...] Type of Weight Used for Estimated Kcals: [place] Total Protein Estimated Needs (gm): 57.12 Protein Needs Based on g/k.2 Type of Weight Used for Estimated Protein : [place] Dietary Orders (From admission, onward) Start Ordered 04/06/24 1421 Tube Feeding Diet Continuous; SolarPrint Standard 1.4 Maxime; 40; Nasoduodenal tube; 60;Water; Every 4 hours (Tube Feeding Diet Panel) Diet effective now Comments: Initiate TF at 10 mls/hr, increase by 10 mls q6 until goal of 40 mls/hr is reached. Question Answer Comment Tube feeding type: Continuous ([facility]) Tube Feeding Formula: SolarPrint Standard 1.4 Maxime Tube Feeding Continuous (mL/hr): 40 Per Tube: Nasoduodenal tube Tube Feeding Flush (mL): 60 Flush Type: Water Flush Frequency: Every 4 hours 04/06/24 1422 04/05/24 1700 Oral Nutrition Supplements ([facility]) Select Supplement: Ensure Clear - Any Flavor All Meals Question: ([facility]) Select Supplement: Answer: Ensure Clear - Any Flavor 04/05/24 1319 04/03/24 1008 Adult Diet Clear Liquid Diet effective now Question: ([facility]) Diet type Answer: Clear Liquid 04/03/24 1007 Allergies: Reviewed, latex IMPRESSION: 04/06: Consult received to initiate TF with dobhoff feeds. Recommend SolarPrint 1.4 with a goal of 40 mls/hr. [...] dinner with her parents. 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 Her [...] 100 mL IVPB, 500 mg, intravenous, Q6H [facility],Jeanie Ramos PA, Last Rate: 110 mL/hr at 04/06/24 0616, 500 mg at 04/06/24 0616 famotidine (PEPCID) injection 20 mg, 20 mg, intravenous, Q12H ELLEN, Bruno Cobb MD, 20 mg at 04/05/242008 LORazepam (ATIVAN) injection 0.5 mg, 0.5 mg, intravenous, TID PRN, Bruno Cobb MD, 0.5 mg at 04/05/242134 mirtazapine (REMERON) tablet 7.5 mg, 7.5 mg, oral, Nightly, Kevon Emanuel MD, 7.5 mg at 04/05/242008 morphine injection 2 mg, 2 mg, intravenous, Q3H PRN, Bruno Cobb MD, 2 mg at 04/03/24 0956 ondansetron (ZOFRAN) injection 4 mg, 4 mg, intravenous, TID, Bruno Cobb MD, 4 mg at 04/05/242009 prochlorperazine (COMPAZINE) injection 5 mg, 5 mg, intravenous, Q6H PRN, AhmaNicholas vogt Smooth, DO, 5 mg at 04/06/24 0731 ramelteon (ROZEREM) tablet 8 mg, 8 mg, oral, Nightly PRN, Bruno Cobb MD, 8 mg at 04/03/24 1942 scopolamine patch 72 hour 1 patch, 1 patch, transdermal, Q72H, Ahmad, Baporfirioa Smooth, DO, 1 patch at04/05/24 1505 sodium bicarbonate 150 mEq/1,150 mL in dextrose 5 % infusion, 75 mL/hr, intravenous, Continuous, Ahmad, Bazgha Smooth, DO, Last Rate: 75 mL/hr at 04/06/24 0617, 75 mL/hr at 04/06/24 0617 sodium chloride 0.9% flush 5-10 mL, 5-10 mL, intra-catheter, Q12H ELLEN, Ahmad, Bazalejandroa Smooth, DO, 10mL at 04/05/24 2018 sodium chloride 0.9% flush 5-20 mL, 5-20 mL, intra-catheter, PRN, Ahmad Baporfirioa Smooth, DO sodium chloride 0.9% infusion, 75 mL/hr, intravenous, Continuous, Ahmad, Bazgha Smooth, DO, Stoppedat 04/05/24 1416 traMADoL (ULTRAM) tablet 50 mg, 50 mg, oral, Q6H PRN, Bruno Cobb MD trimethobenzamide (TIGAN) injection 200 mg, 200 mg, intramuscular, Q6H PRN, Jeanie Ramos PA, 200 mg at 04/03/24 1742 verapamiL (CALAN) tablet 40 mg, 40 mg, oral, Daily, PolomaJoanne vogta Smooth, DO, 40 mg at 04/05/24 0834 Relevant [...] Kevon Emanuel MD, 30 mg at 04/04/24 175 enoxaparin (LOVENOX) syringe 40 mg, 40 mg, subcutaneous, Daily-2100, PhoenixdJoannea Smooth, DO, 40 mg at 04/04/242124 erythromycin (ERYTHROCIN) 500 mg in sodium chloride 0.9% 100 mL IVPB, 500 mg, intravenous, Q6H [facility],Jeanie Ramos PA famotidine (PEPCID) injection 20 mg, 20 mg, intravenous, Q12H ELLEN, Bruno Cobb MD, 20 mg at 04/05/24 [...] (premix) 30 mmol, 30 mmol, intravenous, Once, Ahmad, Nicholas Smooth, DO, 30 mmol at 04/05/24 1250 prochlorperazine (COMPAZINE) injection 5 mg, 5 mg, intravenous, Q6H PRN, Ahmad, Bazalejandroa Smooth, DO, 5 mg at 04/05/24 1130 ramelteon (ROZEREM) tablet 8 mg, 8 mg, oral, Nightly PRN, Bruno Cobb MD, 8 mg at 04/03/24 1942 scopolamine patch 72 hour 1 patch, 1 patch, transdermal, Q72H, Ahmad, Bazgha Smooth, DO, 1 patch at04/02/24 1516 sodium chloride 0.9% flush 5-10 mL, 5-10 mL, intra-catheter, Q12H ELLEN, Ahmad, Bazgha Smooth, DO, 10mL at 04/05/24 0906 sodium chloride 0.9% flush 5-20 mL, 5-20 mL, intra-catheter, PRN, Ahmad, Bazgha Smooth, DO sodium chloride 0.9% infusion, 75 mL/hr, intravenous, Continuous, Ahmad, Bazgha Smooth, DO, Last Rate: 75 mL/hr at 04/05/24 0524, 75 mL/hr at 04/05/24 0524 traMADoL (ULTRAM) tablet 50 mg, 50 mg, oral, Q6H PRN, Bruno Cobb MD trimethobenzamide (TIGAN) injection 200 mg, 200 mg, intramuscular, Q6H PRN, Jeanie Ramos PA, 200 mg at 04/03/24 1742 verapamiL (CALAN) tablet 40 mg, 40 mg, oral, Daily, Ahmad, Bazalejandroa Smooth, DO, 40 mg at 04/05/24 0834 Relevant [...] mg/dL 11 10 CREATININE mg/dL 0.73 0.74 [id number] mL/min/1.73 m2 >90 >90 CALCIUM mg/dL 9.2 [...] Type of Weight Used for Estimated Kcals: [place] Total Protein Estimated Needs (gm): 57.12 Protein Needs Based on g/k.2 Type of Weight Used for Estimated Protein : [place] Dietary Orders (From admission, onward) Start Ordered 04/05/24 1700 Oral Nutrition Supplements ([facility]) Select Supplement: Ensure Clear - Any Flavor All Meals Question: ([facility]) Select Supplement: Answer: Ensure Clear - Any Flavor 04/05/24 1319 04/03/24 1008 Adult Diet Clear Liquid Diet effective now Question: ([facility]) Diet type Answer: Clear Liquid 04/03/24 1007 [...] dinner with her parents. 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 Her [...] Units 04/04/24 0713 04/03/24 1119 04/01/24 0709 08/17/200703/30/24 1540 03/28/242016 SODIUM mmol/L 135 136 137 [...] symptoms started 2 weeks after returning from [place] and recently starting a new job. Her [...] 03/27. No abdominal pain. Chest pains persist, at rest, related to frequent emesis. Occasional NSAID use, [...] 85 75 60 93 Resp: 18 18 Temp: 36.8 ??C (98.3 ??F) [...] MD at 04/03/2024 12:22 PM CDT * Masood Sabaalejandrolayla Rebollar, DO - 04/03/2024 9:27 AM CDT Daily [...] symptoms started 2 weeks after returning from [place]. Her travel companions were not sick. She [...] abdominal pain. She notes after returning from [place] recently she had a day of feeling [...] at 04/02/2024 11:43 AM CDT * Nicholas Saba Smooth, DO - 04/02/2024 9:34 AM CDT Daily [...] symptoms started 2 weeks after returning from [place]. Her travel companions anoxic. She denies any [...] ongoing x 5 days - advance diet. Candace fonseca - recs of gi appreciated, we spoke. [...] Improved, benign abd Jonathan Scruggs MD, YOLA, [place] * Latia Thompson, RD - 04/01/2024 3:01 PM CDT NUTRITION [...] BUN SERUM mg/dL 6 CREATININE mg/dL 0.75 [id number] mL/min/1.73 m2 >90 CALCIUM mg/dL 8.9 ALBUMIN [...] Type of Weight Used for Estimated Kcals: [place] Total Protein Estimated Needs (gm): 57.12 Protein Needs Based on g/k.2 Type of Weight Used for Estimated Protein : [place] Dietary Orders (From admission, onward) Start Ordered [...] dinner with her parents. She reports attending [employer] training on Monday of (she is a [...] obvious between folds of skin Muscle Loss Worship Region - Temporalis Muscle: Can see/feel well-defined [...] Discharge plans Latia Thompson RD, LD * Jonathan Scruggs MD [...] Lab Units 03/31/24 0656 03/30/24 2307 03/30/24200703/30/24 1540 03/28/24201603/28/24 0552 SODIUM mmol/L 137 -- 141 138 [...] motor sensory deficits Jonathan Scruggs MD, YOLA, [facility] documented in this encounter H&P Notes * SalmaSravan Natalia, - 03/30/2024 9:47 PM CDT [facility] Hospitalist Service History and Physical Encounter date: [...] previous visit on the has been within no rmal limits x4. Laboratory findings largely unremarkable. UDS positive for cannabinoids. Patient has trialed a number of medications including GI cocktail, [...] 158/92 Pulse: 61 63 61 58 Resp: 18 18 Temp: TempSrc: SpO2: 97% 99% 100% 98% [...] Clinton PA Authorized by: Fernando Clinton PA [place] Protocol: RN Notified of Procedure: yes Informed consent: Risks, benefits, alternatives discussed and patient/healthcare representative/guardian agrees and accepts Patient's stated name/ [...] 04/01/2024 3:02 PM Admit Type: Inpatient Room: [facility] Date of : 1985 Instrument Name: [id number] [...] of Psychiatry Consultation March ATTENDING PHYSICIAN Dr Bazgha Ahmad CONSULTING PHYSICIAN Dr Kevon Emanuel REASON FOR CONSULTATION Anxiety, depression, possibly nausea and vomiting worsening or caused by it. HISTORY OF PRESENT ILLNESS The patient is a 39-year-old white female with a past psychiatric history significant foranxiety, depression, Bipolar 1 disorder, cannabis use disorder and medical problems of acid reflux disease, vaginal vestibulitis, who was admitted here on 03/30/2024, here at [facility] for intractable nausea and vomiting. The [...] a good visit with her family to [place] recently. 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 SUBSTANCE ABUSE HISTORY The patient denies any [...] for the consultation. Job ID/Internal Job ID: [id number] * Zacarias Nj PA - 04/01/2024 10:56 [...] medication doses. No travel other than to [place]. No headache, no ill contacts. She takes 600mg ibuprofen 1-2 times weekly. She uses cannabis once every couple months. UDS positive for cannabis. No cigarette smoking. Rare ETOH. No illicit drug use. Significant fmhx colon cancer,apparently including Cavanaugh syndrome. She is currently leaving a stressful job and about to start a new job at [employer] [employer]. 2013 EGD unremarkable. Also had 2013 colonoscopy. [...] Units 04/01/24 0709 03/31/24 0656 03/30/24 2307 03/30/24 2008 03/30/24 1540 03/28/242016 SODIUM mmol/L 137 137 -- [...] told that she needs to see a bilingual administrative assistant due to the fact that she has [...] (CMS/HCC) (HCC) 03/11/2024 PSVT (paroxysmal supraventricular tachycardia) ([facility]) 03/11/2024 Mixed hyperlipidemia 03/11/2024 Vaginal vestibulitis [...] Course as of 03/31/24 0604 Time: 03/30 1731 Comment: Repeat labs are significant for white [...] follow-up By: Noman Henley PA Time: 03/30 1808 Comment: Sign out from CARLOS Robles: 38-year-old [...] told that she had to see a bilingual administrative assistant. She has an appointment with them in [...] vs,labs. Controlled nausea. Maintain comfort and safety. [facility] Goal for Treatment: Return home. [...] tomorrow, 04/08/24. * Plan of Care - StuartHazel cristobal RN - 04/07/2024 5:31 AM CDT Goals: [...] be picked up for send out to [place] on 04/08 and results take approximately 1-2 [...] Interview Note Information Obtained From: Patient (04/05/24 4904) Admission Source: ED from home. Impression: Nausea/Vomiting. Bipolar disorder Plan Includes: Return home. Primary Source of Transportation: Does the patient need discharge transport arranged?: No (04/04/24 1018) Health Insurance Coverage: [employer]. Prescription Coverage: yes Pharmacy: [id number] - [place], [place] - [address] [facility] [address]) & [address] [place] [address] Primary Care Provider: Maurice Duff Jr., MD Prior to Admission: Functional Status: Independent with ADLs Primary Caregiver: Self Support System: Parent Home Care Services: No Outpatient Services: No Durable Medical Equipment: None Living Arrangements: Alone, Other (Comment) (daughter stays with occ.) Type of Residence: Apartment Steps in home?: Yes, Inside home Number of steps inside: 13 steps Medication management: Independent (03/30/240) SDOH: Transportation: In the past 12 months, has lack of transportation kept you from medical appointments or from getting medications?: No In the past 12 months, has lack of transportation kept you from meetings, work, or from getting things needed for daily living?: No (04/05/241356) Financial Resource: How hard is it for [...] were you homeless or living in a care home (including now)?: No (04/05/241357) Utilities: Social Connections: In a typical week, how many times do you talk on the phone with family, friends, or neighbors?: More than three times a week How often do you get together with friends or relatives?: More than three times a week How often do you attend evangelical or yarsani services?: Never Do you belong to any clubs or organizations such as evangelical groups, unions, fraternal [...] Bipolar/Depression Dx. Seen by Psych while hospitalized.) (04/05/241354) Anticipated Level of Care: Anticipated discharge level of care: Private residence Pt/Family agrees with Anticipated Level of Care: Yes (04/05/241354) Patient expects to be Discharged to: Private residence, (04/05/241354) Additional Information: ED from home due to [...] Collaboration with Patient, Provider, Direct Care Nurse, Automatic Gluing Machine Operator, and other members of theHealth Care Team to assure needed interventions completed. 2. Return patient to optimal level of self-care post discharge. 3. Personal Chef will follow for Discharge Planning - interventions [...] Date Expected Discharge Date Apr 06, 2024 [place] Transport barriers: No PT/OT orders: No CM [...] health care needs will improve 04/04/20241823 by mEma Huerta RN Outcome: Progressing 04/04/20241819 by Emma [...] by Emma Huerta RN Outcome: Progressing 2024 1820 by Emma Huerta RN Outcome: Progressing Problem: Infection Goal: Absence of infection during hospitalization 04/04/20241823 by Emma Huerta RN Outcome: Progressing 2024 1820 by Emma Huerta RN Outcome: Progressing * [...] year old daughter that lives with her occupational therapy department chair. She does not use any [...] 04/01/2024 7:0 9 AM CDT Thyroid Function [place] [facility] Routine 04/01/2024 7:09 AM CDT Hemoglobin [...] urrences starting 04/01/2024 until 04/01/2024 Thyroid Function [place] [facility] Routine Once for 1 Occurrences starting [...] Results * eGFR (04/09/2024 5:53 AM CDT) [facility] eGFR >90 >=60 mL/min/1. 73 m2 Comment: [...] 5:53 AM CDT 04/09/2024 6:09 AM CDT Baporfirioa Smooth Ahmad DO LAB BLOOD ORDERABLES Amanda l Result Performing Organization Address City/[facility]/ZIP Co de Phone Number [facility] [address] [facility] [place], [place] [id number] * Magnesium (04/09/2024 5:53 AM CDT) Magnesium 2.3 1.4 - 2.5 mg/dL Blood 04/09/2024 5:53 AM CDT 04/09/2024 6:09 AM CDT Nicholas Smooth Ahmad DO LAB BLOOD ORDERABLES Amanda l Result Performing Organization Address [facility] Co de Phone Number [facility] [address] [facility] [place], [place] [phone] * (ABNORMAL) Phosphorus (04/09/2024 5:53 AM CDT) Phosphorus, pl 4.8(H) 2.3 - 4.5 mg/dL Blood 04/09/2024 5:53 AM CDT 04/09/2024 6:09 AM CDT Joannea Smooth Ahmad DO LAB BLOOD ORDERABLES Amanda l Result Performing Organization Address [facility] Co de Phone Number [facility] [address] Department [place] [address] * Comprehensive metabolic panel (04/09/2024 5:53 AM CDT) Sodium 135 135 - 145 mmol/L Potassium, pl 4.0 3.3 - 4.9 mmol/L [facility] Chloride 99 97 - 110 mmol/L [facility] CO2 25 22 - 32 mmol/L [facility] Anion gap 11 2 - 15 mmol/L [facility] BUN 7 6 - 25 mg/dL [facility] Creatinine 0.81 0.60 - 1.10 mg/dL [facility] Glucose 104 70 - 199 mg/dL [facility] Comment: Interpretive Data Fasting glucose >/= 126 [...] 2022. Calcium 9.4 8.5 - 10.3 mg/dL [facility] Bilirubin, total 0.4 0.1 - 1.2 mg/dL [facility] Protein, pl 6.8 6.5 - 8.5 g/dL [facility] Albumin 3.8 3.5 - 5.0 g/dL [facility] Alk phos 84 40 - 130 Units/L [facility] ALT 35 7 - 45 Units/L [facility] AST 24 10 - 45 Units/L [facility] Blood 04/09/2024 5:53 AM CDT 04/09/2024 6:09 AM CDT us Bazgha Smooth Ahmad DO LAB BLOOD ORDERABLES Amanda l Result [facility] [address] Department [place] [address] * NM Hepatobiliary Imaging W GBEF (04/08/2024 [...] study. Electronically signed by: Fan Goldberg M.D. Bazgha Smooth Ahmad DO G NM PROCEDURES Final R esult * eGFR [...] DO LAB BLOOD ORDERABLES Amanda l Result [facility] [address] Department [place] [address] * (ABNORMAL) Differential, auto (04/08/2024 3:57 AM CDT) Neutrophil abs 3.4 1.5 - 6.5 K/cumm Imm gran abs 0.0 0.0 - 0.1 K/cumm [facility] Lymphocyte abs 3.7(H) 0.8 - 3.3 K/cumm [facility] Monocyte abs 1.0(H) 0.2 - 0.8 K/cumm [facility] Eosinophil abs 0.1 0.0 - 0.5 K/cumm [facility] Basophil abs 0.0 0.0 - 0.1 K/cumm [facility] Neutrophil pct 41.1 % [facility] Comment: Interpretive Data Percent cell count reference ranges are not reported, since discordance with absolute values may lead to misinterpretation of CBC data. Current Interpretive Data was last revised on 2017. Imm gran pct 0.2 % [facility] Comment: Interpretive Data Percent cell count reference ranges are not reported, since discordance with absolute values may lead to misinterpretation of CBC data. Current Interpretive Data was last revised on 2017. Lymphocyte pct 44.1 % [facility] Comment: Interpretive Data Percent cell count reference ranges are not reported, since discordance with absolute values may lead to misinterpretation of CBC data. Current Interpretive Data was last revised on 2017. Monocyte pct 12.4 % [facility] Comment: Interpretive Data Percent cell count reference ranges are not reported, since discordance with absolute values may lead to misinterpretation of CBC data. Current Interpretive Data was last revised on 2017. Eosinophil pct 1.7 % [facility] Comment: Interpretive Data Percent cell count reference ranges are not reported, since discordance with absolute values may lead to misinterpretation of CBC data. Current Interpretive Data was last revised on 2017. Basophil pct 0.5 % [facility] Comment: Interpretive Data Percent cell count reference ranges are not reported, since discordance with absolute values may lead to misinterpretation of CBC data. Current Interpretive Data was last revised on 2017. Blood 04/08/2024 3:57 AM CDT 04/08/2024 4:25 AM CDT [facility]a Smooth Ahmad DO LAB BLOOD ORDERABLES Amanda l Result Performing Organization Address City/[facility]/ZIP Co de Phone Number [facility] [address] Department [place] [address] * Magnesium (04/08/2024 3:57 AM CDT) Magnesium 2.2 1.4 - 2.5 mg/dL Blood 04/08/2024 3:57 AM CDT 04/08/2024 4:25 AM CDT [facility] Ohioa Smooth Ahmad DO LAB BLOOD ORDERABLES Amanda l Result Performing Organization Address City/[facility]/ZIP Co de Phone Number [facility] [address] Department [place] [address] * (ABNORMAL) Phosphorus (04/08/2024 3:57 AM CDT) Phosphorus, pl 4.6(H) 2.3 - 4.5 mg/dL Blood 04/08/2024 3:57 AM CDT 04/08/2024 4:25 AM CDT Bazgha Smooth Ahmad DO LAB BLOOD ORDERABLES Amanda l Result [facility] [address] Department [place] [address] * (ABNORMAL) Comprehensive metabolic panel (04/08/2024 3:57 AM CDT) Pathologist [facility] Sodium 137 135 - 145 mmol/L Potassium, pl 3.1(L) 3.3 - 4.9 mmol/L [facility] Chloride 100 97 - 110 mmol/L [facility] CO2 27 22 - 32 mmol/L [facility] Anion gap 10 2 - 15 mmol/L [facility] BUN 5(L) 6 - 25 mg/dL [facility] Creatinine 0.73 0.60 - 1.10 mg/dL [facility] Glucose 117 70 - 199 mg/dL [facility] Comment: Interpretive Data Fasting glucose >/= 126 [...] 2022. Calcium 9.3 8.5 - 10.3 mg/dL [facility] Bilirubin, total 0.5 0.1 - 1.2 mg/dL [facility] Protein, pl 6.8 6.5 - 8.5 g/dL [facility] Albumin 3.9 3.5 - 5.0 g/dL [facility] Alk phos 82 40 - 130 Units/L [facility] ALT 26 7 - 45 Units/L [facility] AST 19 10 - 45 Units/L [facility] Blood 04/08/2024 3:57 AM CDT 04/08/2024 4:[address] [facility] Rebollar [facility] DO LAB BLOOD ORDERABLES Amanda l Result [facility] [address] [place] [address] * CBC with auto differential (04/08/2024 3:57 AM CDT) WBC 8.4 3.8 - 9.9 K/cumm Hgb 13.2 11.9 - 15.5 g/dL [facility] Hct 40.2 35.6 - 45.5 % [facility] Plt 284 150 - 400 K/cumm [facility] MPV 11.2 9.1 - 12.3 fL [facility] RBC 4.52 3.90 - 5.20 M/cumm [facility] MCV 88.9 81.3 - 96.4 fL [facility] MCH 29.2 27.1 - 33.3 pg [facility] MCHC 32.8 32.3 - 35.7 g/dL [facility] RDW CV 13.7 11.1 - 14.9 % [facility] RDW SD 44.3 35.7 - 48.1 fL [facility] NRBC abs 0.00 0.00 - 0.01 K/cumm [facility] Blood 04/08/2024 3:57 AM CDT 04/08/2024 4:25 AM CDT Baza Smooth Ahmad DO LAB BLOOD ORDERABLES Amanda l Result [facility] [address] Department [place] [address] * XR Chest 1 View (04/07/2024 2:48 [...] signed by: Brandt Lombardo M.D. Fernando GONZALEZ IMG XR PROCEDURES Final Result * GENERAL (04/07/2024 2:28 PM CDT) Narrative Fernando Clinton PA - 04/07/2024 2:28 PM CDT Fernando Clinton PA ? 04/07/2024 ??2:29 PM General - Inpatient Date/Time: 04/07/2024 2:28 PM Performed by: Fernando Clinton PA Authorized by: Fernando Clinton PA ?? [place] Protocol: RN Notified of Procedure: yes ?? Informed consent: ??Risks, benefits, alternatives discussed and patient/healthcare representative/guardian agrees and accepts Patient's stated name/ [...] 7:33 AM CDT 04/07/2024 7:44 AM CDT [facility] Smooth Ahmad DO LAB BLOOD ORDERABLES Amanda l Result Performing Organization Address City/[facility]/ZIP Co de Phone Number [facility] [id number] [place] [address] * Magnesium (04/07/2024 7:33 AM CDT) Magnesium 2.0 1.4 - 2.5 mg/dL Blood 04/07/2024 7:33 AM CDT 04/07/2024 7:44 AM CDT [facility] [place] Smooth Ahmad DO LAB BLOOD ORDERABLES Amanda l Result [facility] [address] [facility] [employer] [place], [place] [phone] * Phosphorus (04/07/2024 7:33 AM CDT) Phosphorus, pl 3.8 2.3 - 4.5 mg/dL Blood 04/07/2024 7:33 AM CDT 04/07/2024 7:44 AM CDT us Bazfito Smooth Ahmad LAB BLOOD ORDERABLES Amanda pierce Result [facility] [address] Department [place] [address] * (ABNORMAL) Comprehensive metabolic panel (04/07/2024 7:33 AM CDT) Sodium 138 135 - 145 mmol/L Potassium, pl 3.0(L) 3.3 - 4.9 mmol/L [facility] Chloride 92(L) 97 - 110 mmol/L [facility] CO2 32 22 - 32 mmol/L [facility] Anion gap 14 2 - 15 mmol/L [facility] BUN 7 6 - 25 mg/dL [facility] Creatinine 0.75 0.60 - 1.10 mg/dL [facility] Glucose 135 70 - 199 mg/dL [facility] Comment: Interpretive Data Fasting glucose >/= 126 [...] 2022. Calcium 9.6 8.5 - 10.3 mg/dL [facility] Bilirubin, total 0.6 0.1 - 1.2 mg/dL [facility] Protein, pl 7.2 6.5 - 8.5 g/dL [facility] Albumin 4.0 3.5 - 5.0 g/dL [facility] Alk phos 93 40 - 130 Units/L [facility] ALT 28 7 - 45 Units/L [facility] AST 19 10 - 45 Units/L [facility] Blood 04/07/2024 7:33 AM CDT 04/07/2024 7:44 AM CDT Bazgha Smooth Ahmad DO LAB BLOOD ORDERABLES Amanda l Result Performing Organization Address City/[facility]/ZIP Co de Phone Number [facility] [address] [facility] [place] [address] * (ABNORMAL) Calprotectin, fecal (04/06/2024 10:02 PM CDT) Calprotectin, fecal 221(H) <50.0 (Normal) mcg/g [place] [facility] Comment: Interpretation: Abnormal (>120 mcg/g) Test Performed by: [facility] [address] [place], [place] [id number] Piano Assembler: Ronaldo Delagdo Ph.D.; CLIA# [id number] Stool 04/06/2024 10:0 2 PM CDT 04/06/2024 10:02 PM CDT Bazgha Smooth Ahmad DO LAB BODY FLUIDS AND STOOL S ORDERABLES Final Result Performing Organization Address [facility] Co de Phone Number [facility] [address] [facility] [place] [address] [facility] * XR Abdomen Ap 1 Vw (04/06/2024 3:55 PM CDT) Anatomical Region Laterality Modality Body, Abdomen N/A Computed Radiogr aphy 04/06/2024 4:33 PM CDT Impressions 04/06/2024 4:33 PM CDT Interval placement of a enteric tube with tip terminating near the ligament of Treitz jejunum. ??Image of gas pattern is within normal. ??Imaged lung bases are normal. Electronically signed by: yUen Ingram M.D. Narrative 04/06/2024 4:33 PM CDT [...] normal. Electronically signed by: Uyen Ingram M.D. us Niko Gerber PA IMG XR PROCEDURES Final Res ult * CRP (acute phase) (04/06/2024 10:53 AM CDT) CRP 5.4 <=10.0 mg/L Blood 04/06/2024 10:5 3 AM CDT 04/06/2024 11:04 AM CDT us Nicholas Rebollar Ahjasield DO LAB BLOOD ORDERABLES Amanda l Result [facility] [address] Department [place] [address] * eGFR (04/06/2024 10:53 AM CDT) eGFR [...] 3 AM CDT 04/06/2024 11:04 AM CDT Joannea Smooth Ahmad DO LAB BLOOD ORDERABLES Amanda l Result Performing Organization Address City/[facility]/ZIP Co de Phone Number [facility] [address] [facility] [place], [place] [id number] * Magnesium (04/06/2024 10:53 AM CDT) Magnesium 1.8 1.4 - 2.5 mg/dL Blood 04/06/2024 10:5 3 AM CDT 04/06/2024 11:04 AM CDT Nicholas Smooth Ahmad DO LAB BLOOD ORDERABLES Amanda l Result Performing Organization Address [facility] Co de Phone Number [facility] [address] [facility] [place] [address] * Phosphorus (04/06/2024 10:53 AM CDT) Phosphorus, pl 2.9 2.3 - 4.5 mg/dL Blood 04/06/2024 10:5 3 AM CDT 04/06/2024 11:04 AM CDT Joannea Smooth Ahmad DO LAB BLOOD ORDERABLES Amanda l Result Performing Organization Address City/[facility] Co de Phone Number [facility] [address] [facility] [place] [address] * (ABNORMAL) Comprehensive metabolic panel (04/06/2024 10:53 AM CDT) Sodium 136 135 - 145 mmol/L Potassium, pl 3.3 3.3 - 4.9 mmol/L [facility] Chloride 95(L) 97 - 110 mmol/L [facility] CO2 28 22 - 32 mmol/L [facility] Anion gap 13 2 - 15 mmol/L [facility] BUN 5(L) 6 - 25 mg/dL [facility] Creatinine 0.65 0.60 - 1.10 mg/dL [facility] Glucose 136 70 - 199 mg/dL [facility] Comment: Interpretive Data Fasting glucose >/= 126 [...] 2022. Calcium 9.8 8.5 - 10.3 mg/dL [facility] Bilirubin, total 0.5 0.1 - 1.2 mg/dL [facility] Protein, pl 7.7 6.5 - 8.5 g/dL [facility] Albumin 4.4 3.5 - 5.0 g/dL [facility] Alk phos 93 40 - 130 Units/L [facility] ALT 38 7 - 45 Units/L [facility] AST 20 10 - 45 Units/L [facility] Blood 04/06/2024 10:5 3 AM CDT 04/06/2024 11:04 AM CDT us Nicholas Smooth Ahmad DO LAB BLOOD ORDERABLES Amanda l Result [facility] [address] Department [place] [address] * (ABNORMAL) Beta-hydroxybutyrate (04/05/2024 5:36 PM CDT) Beta-Hydroxybut yrate 1.9(H) <=0.5 mmol/L Blood 04/05/2024 5:36 PM CDT 04/05/2024 5:43 PM CDT [facility] DO LAB BLOOD ORDERABLES Amanda l Result [facility] [address] [facility] [place] [address] * Lactate (04/05/2024 5:36 PM CDT) Pathologist [facility] Lactate 0.9 0.7 - 2.0 mmol/L Blood 04/05/2024 5:36 PM CDT 04/05/2024 5:42 PM CDT [facility]ib[facility]d DO LAB BLOOD ORDERABLES Amanda l Result Performing Organization Address City/[facility]/ZIP Co de Phone Number [facility] [address] [place] [address] * Glycohemoglobin A1C - Add on lab test (04/05/2024 1:43 PM CDT) Pathologist [facility] Acceptable Yes Blood 04/05/2024 1:43 PM CDT 04/05/2024 1:43 PM CDT Narrative [facility] - 04/05/2024 1:43 PM CDT Name of Test->Glycohemoglobin A1C [facility] Ohiolayla Rebollar Ahmad DO LAB BLOOD ORDERABLES Amanda l Result [facility] [address] [place] [address] * (ABNORMAL) Edwin-Montoya virus (EBV) antibody panel Blood (04/05/2024 10:47 AM CDT) EBV nuclear Ab Positive(A) Negative Comment: Indicates the presence of detectable IgG antibody to EBV Nuclear Antigen. Testing performed by: [facility], [address] [place] [address] EBV VCA IgG Positive(A) Negative [facility] Comment: Indicates the presence of antibody; 90% of the adult population will have been infected with EBV sometime in the past. Testing performed by: [facility], [address] [place] [address] EBV VCA IgM Negative Negative [facility] Comment: No detectable IgM antibody to EBV-VCA. ??A negative result indicates no current infection with EBV. If clinical suspicion of acute EBV infection is present, testing should be repeated after one week. Testing performed by: [facility], [address] [place] [address] EBV interp Past Infection [facility] Comment:Testing performed by : [facility], [address] [place]., [address] Blood 04/05/2024 10:4 7 AM CDT 04/05/2024 9:02 PM CDT Bazgha Smooth Ahmad DO LAB MICROBIOLOGY - GENERA L ORDERABLES Final Result [facility] [address] Department [place] [address] * (ABNORMAL) CMV, IgG and IgM antibodies [...] or recent CMV infection. Testing performed by: [facility], [address] [place]., [address] CMV IgM Negative Negative [facility] Comment: Interpretive Data Negative - Negative CMV [...] (primary, reactivation, or reinfection). Testing performed by: [facility], [address] [place]., [address] Blood 04/05/2024 10:4 7 AM CDT 04/05/2024 9:02 PM CDT Nicholas Saba DO LAB MICROBIOLOGY - GENERA L ORDERABLES Final Result Performing Organization Address City/[facility]/ZIP Co de Phone Number [facility] [address] Department [employer] [place], [place] [phone] * Hepatic function panel - Add on lab test (04/05/2024 9:46 AM CDT) Acceptable Yes Blood 04/05/2024 9:46 AM CDT 04/05/2024 9:46 AM CDT Narrative [facility] - 04/05/2024 9:46 AM CDT Name of Test->Hepatic function panel Jeanie GONZALEZ LAB BLOOD ORDERABLES Final Re sult Performing Organization Address City/[facility]/ZIP Co de Phone Number [facility] [address] Department [place], [place] [phone] * Phosphorus - Add on lab test (04/05/2024 9:10 AM CDT) Acceptable Yes Blood 04/05/2024 9:10 AM CDT 04/05/2024 9:10 AM CDT Narrative [facility] - 04/05/2024 9:10 AM CDT Name of Test->Phosphorus [facility] Ohiolayla Garibayd DO LAB BLOOD ORDERABLES Amanda l Result Performing Organization Address [facility] Co de Phone Number [facility] [address] [place] [address] * Magnesium - Add on lab test (04/05/2024 9:10 AM CDT) Pathologist [facility] Acceptable Yes Blood 04/05/2024 9:10 AM CDT 04/05/2024 9:10 AM CDT Narrative [facility] - 04/05/2024 9:10 AM CDT Name of Test->Magnesium [facility] LAB BLOOD ORDERABLES Amanda l Result Performing Organization Address [facility] de Phone Number [facility] [address] Department [place] [address] * (ABNORMAL) Hepatic function panel (04/05/2024 6:59 AM CDT) [facility] Bilirubin, total 0.5 0.1 - 1.2 mg/dL Bilirubin, direct 0.2 0.1 - 0.3 mg/dL [facility] Protein, pl 7.4 6.5 - 8.5 g/dL [facility] Albumin 4.2 3.5 - 5.0 g/dL [facility] Alk phos 87 40 - 130 Units/L [facility] ALT 48(H) 7 - 45 Units/L [facility] AST 33 10 - 45 Units/L [facility] Blood 04/05/2024 6:59 AM CDT 04/05/2024 7:27 AM CDT [facility] DO LAB BLOOD ORDERABLES Amanda l Result Performing Organization Address [facility]/State/ZIP Co de Phone Number [facility] [address] [facility] [place], [place] [id number] * Magnesium (04/05/2024 6:59 AM CDT) [facility] Magnesium 1.9 1.4 - 2.5 mg/dL Blood 04/05/2024 6:59 AM CDT 04/05/2024 7:27 AM CDT [facility] Ohioa Smooth Ahmad DO LAB BLOOD ORDERABLES Amanda l Result Performing Organization Address [facility] Co de Phone Number [facility] [address] [facility] [place] [address] * (ABNORMAL) Phosphorus (04/05/2024 6:59 AM CDT) [facility] Phosphorus, pl 1.4(L) 2.3 - 4.5 mg/dL Comment:Spoke to: Loretta (RN ) @ 1009 Blood 04/05/2024 6:59 AM CDT 04/05/2024 7:27 AM CDT [facility] Ohiolayla Smooth Ahmad DO LAB BLOOD ORDERABLES Amanda l Result Performing Organization Address [facility] Co de Phone Number [facility] [address] [facility] [place], [place] [phone] * eGFR (04/05/2024 6:59 AM CDT) [facility] eGFR >90 >=60 mL/min/1. 73 m2 Comment: [...] 6:59 AM CDT 04/05/2024 7:27 AM CDT Nicholas Rebollar Ahjoey DO LAB BLOOD ORDERABLES Amanda l Result [facility] [address] Department [place] [address] * (ABNORMAL) Basic metabolic panel (04/05/2024 6:59 AM CDT) Sodium 136 135 - 145 mmol/L Potassium, pl 3.4 3.3 - 4.9 mmol/L [facility] Chloride 99 97 - 110 mmol/L [facility] CO2 21(L) 22 - 32 mmol/L [facility] Anion gap 16(H) 2 - 15 mmol/L [facility] BUN 11 6 - 25 mg/dL [facility] Creatinine 0.73 0.60 - 1.10 mg/dL [facility] Glucose 104 70 - 199 mg/dL [facility] Comment: Interpretive Data Fasting glucose >/= 126 [...] 2022. Calcium 9.2 8.5 - 10.3 mg/dL [facility] Blood 04/05/2024 6:59 AM CDT 04/05/2024 7:27 AM CDT [facility] LAB BLOOD ORDERABLES Amanda l Result Performing Organization Address City/[facility]/ZIP Co de Phone Number [facility] [address] Department [employer] [place], [place] [phone] * C. difficile testing Stool (04/05/2024 5:32 AM CDT) [facility] Result Negative Negative Toxin Result Negative Negative [facility] C. diff result Negative, free toxin Negative, free toxin [facility] C. diff interp Negative for toxigenic Clostridioides (Clostridium) difficile. Analysis was performed using a glutamate dehydrogenase antigen detection assay combined with a C. difficile toxin detection assay. [facility] Stool 04/05/2024 5:32 AM CDT 04/05/2024 5:46 AM CDT [facility] Ahmad LAB MICROBIOLOGY - GENERA L ORDERABLES Final Result Performing Organization Address City/[facility]/ZIP Co de Phone Number [facility] [address] Department [place] [address] * Phosphorus - Add on lab test (2024 1:56 PM CDT) Pathologist [facility] Acceptable Yes Blood 2024 1:56 PM CDT 2024 1:56 PM CDT Narrative [facility] - 2024 1:56 PM CDT Name of Test->Phosphorus Nicholas Smooth Ahmad DO LAB BLOOD ORDERABLES Amanda l Result [facility] [address] [facility] [place], [place] [phone] * Magnesium - Add on lab test (2024 1:56 PM CDT) Acceptable Yes Blood 2024 1:56 PM CDT 2024 1:56 PM CDT Narrative [facility] - 2024 1:56 PM CDT Name of Test->Magnesium Masoodlayla Smooth Ahmad DO LAB BLOOD ORDERABLES Amanda l Result Performing Organization Address [facility] Co de Phone Number [facility] [address] [facility] [place], [place] [phone] * Hepatic function panel - Add on lab test (2024 11:51 AM CDT) Acceptable Yes Blood 2024 11:5 1 AM CDT 2024 11:51 AM CDT Narrative [facility] - 2024 11:51 AM CDT Name of Test->Hepatic function panel Jeanie GONZALEZ LAB BLOOD ORDERABLES Final Re sult Performing Organization Address City/[facility]/ZIP Co de Phone Number [facility] [address] Department [place], [place] [phone] * Magnesium (2024 7:13 AM CDT) Magnesium 2.2 1.4 - 2.5 mg/dL Blood 2024 7:13 AM CDT 2024 7:56 AM CDT Nicholas Smooth Ahmad DO LAB BLOOD ORDERABLES Amanda l Result Performing Organization Address City/[facility]/ZIP Co de Phone Number [facility] [address] [place] [address] * Phosphorus (2024 7:13 AM CDT) Pathologist [facility] Phosphorus, pl 4.2 2.3 - 4.5 mg/dL Blood 2024 7:13 AM CDT 2024 7:56 AM CDT [facility] Sm[facility] Ahmad DO LAB BLOOD ORDERABLES Amanda l Result Performing Organization Address [facility] Co de Phone Number [facility] [address] [facility] [place] [address] * (ABNORMAL) Hepatic function panel (2024 7:13 AM CDT) Pathologist [facility] Bilirubin, total 0.4 0.1 - 1.2 mg/dL Bilirubin, direct <0.2 0.1 - 0.3 mg/dL [facility] Comment:Moderately Hemolyzed Specimen Protein, pl 7.7 6.5 - 8.5 g/dL [facility] Albumin 4.1 3.5 - 5.0 g/dL [facility] Alk phos 94 40 - 130 Units/L [facility] ALT 58(H) 7 - 45 Units/L [facility] Comment:Moderately Hemolyzed Specimen AST 57(H) 10 - 45 Units/L [facility] Comment:Moderately Hemolyzed Specimen Blood 2024 7:13 AM CDT 2024 7:56 AM CDT Masoodlayla Smooth Ahmad DO LAB BLOOD ORDERABLES Amanda l Result Performing Organization Address [facility] Co de Phone Number [facility] [address] [place] [address] * eGFR (2024 7:13 AM CDT) Pathologist [facility] eGFR >90 >=60 mL/min/1. 73 m2 Comment: [...] 7:13 AM CDT 2024 7:56 AM CDT Nicholas Laddiaz Ahmad DO LAB BLOOD ORDERABLES Amanda l Result [facility] [address] Department [place] [address] * (ABNORMAL) Basic metabolic panel (2024 7:13 AM CDT) Pathologist [facility] Sodium 135 135 - 145 mmol/L Potassium, pl 4.5 3.3 - 4.9 mmol/L [facility] Comment:Hemolyzed; potassium value may be falsely elevated by as much as 0.6 - 1.0 mmol/L. Suggest redraw and reanalysis Chloride 97 97 - 110 mmol/L [facility] CO2 22 22 - 32 mmol/L [facility] Anion gap 16(H) 2 - 15 mmol/L [facility] BUN 10 6 - 25 mg/dL [facility] Creatinine 0.74 0.60 - 1.10 mg/dL [facility] Glucose 98 70 - 199 mg/dL [facility] Comment: Interpretive Data Fasting glucose >/= 126 [...] 2022. Calcium 9.8 8.5 - 10.3 mg/dL [facility] Blood 2024 7:13 AM CDT 2024 7:56 AM CDT Nicholas Saba DO LAB BLOOD ORDERABLES Amanda l Result [facility] [address] Department [place] [address] * CT Abdomen Pelvis W Contrast (04/03/2024 [...] site. Electronically signed by: Jovanna Read M.D. us Jeanie GONZALEZ IMG CT PROCEDURES Final Resul t * eGFR [...] 9 AM CDT 04/03/2024 11:56 AM CDT Bazgha Smooth Ahmad DO LAB BLOOD ORDERABLES Amanda pierce Result [facility] [address] Department [place] [address] * (ABNORMAL) Basic metabolic panel (04/03/2024 11:19 AM CDT) Sodium 136 135 - 145 mmol/L Potassium, pl 4.0 3.3 - 4.9 mmol/L [facility] Chloride 99 97 - 110 mmol/L [facility] CO2 20(L) 22 - 32 mmol/L [facility] Anion gap 17(H) 2 - 15 mmol/L [facility] BUN 11 6 - 25 mg/dL [facility] Creatinine 0.81 0.60 - 1.10 mg/dL [facility] Glucose 97 70 - 199 mg/dL [facility] Comment: Interpretive Data Fasting glucose >/= 126 [...] 2022. Calcium 9.5 8.5 - 10.3 mg/dL [facility] Blood 04/03/2024 11:1 9 AM CDT 04/03/2024 11:56 AM CDT Bazgha Smooth Ahmad DO LAB BLOOD ORDERABLES Amanda l Result [facility] [address] Department [place] [address] * MRI Brain W WO Contrast (04/02/2024 [...] by: Mario Nunez M.D. Bazgha Smooth Ahmad [facility] MRI PROCEDURES Final Result * Respiratory pathogen panel Nasopharyngeal (04/02/2024 12:54 PM CDT) Pathologist [facility] Influenza A RNA Not Detected Not Detected [facility] Influenza B RNA Not Detected Not Detected [facility] RSV RNA Not Detected Not Detected [facility] COVID-19 RNA Not Detected Not Detected [facility] Coronavirus 229E RNA Not Detected Not Detected [facility] Coronavirus HKU1 RNA Not Detected Not Detected [facility] Coronavirus NL63 RNA Not Detected Not Detected [facility] Coronavirus OC43 RNA Not Detected Not Detected [facility] Adenovirus DNA Not Detected Not Detected [facility] Metapneumovirus RNA Not Detected Not Detected [facility] Rhinovirus/Enterov irus RNA Not Detected Not Detected [facility] Parainfluenza 1 RNA Not Detected Not Detected [facility] Parainfluenza 2 RNA Not Detected Not Detected [facility] Parainfluenza 3 RNA Not Detected Not Detected [facility] Parainfluenza 4 RNA Not Detected Not Detected [facility] B. pertussis DNA Not Detected Not Detected [facility] B. parapertussis DNA Not Detected Not Detected [facility] C. pneumoniae DNA Not Detected Not Detected [facility] M. pneumoniae DNA Not Detected Not Detected [facility] Comment: Interpretive Data [employer] FilmArray Respiratory Panel (RP2.1) assay is a [...] assay has FDA clearance for testing of TICKET TAKER swabs. ??The performance characteristics of this assay have been determined by [facility]. Current interpretive data was last revised on 2021. Nasopharyngeal 04/02/2024 12 :54 PM CDT 04/02/2024 1:14 PM CDT Narrative [facility] - 04/02/2024 2:06 PM CDT Is the Patient experiencing symptoms consistent with COVID?->Yes Surveillance testing for transplant patient?->No Bazgha Smooth Ahmad DO LAB MICROBIOLOGY - GENERA L ORDERABLES Final Result Performing Organization Address [facility]/ZIP Co de Phone Number [facility] [address] [facility] [place] [address] MBC * Cortisol - Add on lab test (04/02/2024 10:42 AM CDT) Acceptable Yes Blood 04/02/2024 10:4 2 AM CDT 04/02/2024 10:42 AM CDT Narrative [facility] - 04/02/2024 10:43 AM CDT Name of Test->Cortisol Joannea Smooth Ahmad DO LAB BLOOD ORDERABLES Amanda l Result Performing Organization Address [facility] Co de Phone Number [facility] [address] [facility] [place] [address] * TSH reflex Free T4 - Add on lab test (04/02/2024 10:42 AM CDT) Acceptable Yes Blood 04/02/2024 10:4 2 AM CDT 04/02/2024 10:42 AM CDT Narrative [facility] - 04/02/2024 10:43 AM CDT Name of Test->TSH reflex Free T4 Joannea Smooth Ahmad DO LAB BLOOD ORDERABLES Amanda l Result Performing Organization Address City/[facility]/ZIP Co de Phone Number [facility] [address] [facility] [place] [address] * US Abdomen Limited (04/02/2024 8:01 AM [...] by: Osei Felipe M.D. Bruno Cobb MD IMG US PROCEDURES F inal Result * XR [...] Electronically signed by: Yosef Lopez M.D., MPH us Bruno Cobb MD IMG XR PROCEDURES F inal Result * Surgical pathology (04/01/2024 3:14 PM CDT) Tissue (Gastric/Stomach biopsy) 04/01/2024 3:14 PM CDT Comment:Rule out H Pylori Narrative [facility] - 04/02/2024 10:59 AM CDT [address] ??[address] Tele: ?? Kisha Parks MD - Commissary Steward Note to Patients: This report may contain [...] PATHOLOGY REPORT Patient Name: ??ÁNGELA IBRAHIM Address: ??[address] [place] [address] ??[id number] Gender: ??F : ??1985 (Age: 38) Service: ??Medical Location: ??[id number], ?? Hospital #: ??[id number] Patient Type: ??[facility] INPATIENT Accession #: ? [id number] Taken: ? 04/01/2024 Received ? 04/01/2024 Reported: ? 04/02/2024 Physician(s): ? Bruno Cobb M.D. Maurice Duff M.D. DIAGNOSIS: Stomach, biopsy: ? - Mild [...] H&E stained sections. Clerical Data Follows A; 30022 REPORT IMAGES AND/OR SCANNED DOCUMENTS ONLY VIEWABLE IN PDF FORMAT The immunohistochemical test(s) cited in this report, if any, was developed and its performance characteristics determined by [facility] Pathology Department. ??It has not been cleared or approved by the U.S. Food and Drug Administration. ??The FDA has determined that such clearance or approval is not necessary. ??This test is used for clinical purposes. ??It should not be regarded as investigational or for research. ??[facility] is certified under the Clinical Laboratory [...] LAB PATHOLOGY ORDER SHARON Final Result PATHOLOGY [facility] Laboratory [address] [place] [address] * EGD (04/01/2024 3:02 PM CDT) Anatomical Region Laterality Modality Other Narrative Procedure Note Bruno Cobb MD - 04/01/2024 3:02 PM CDT ENDOSCOPY LAB Patient Name: Ángela Ibrahim Procedure Date: 04/01/2024 3:02 PM Admit Type: Inpatient Room: [facility] Date of : 1985 Instrument Name: [id number] [...] 04/01/2024 3:02 PM Scope In: Scope Out: Bruno Cobb MD ENDOSCOPY PROCEDURE S Final Result * POCT hCG, urine (04/01/2024 2:05 PM CDT) Pathologist [facility] HCG, ur, POC Negative Negative Lot Number [id number] QC Backgroud Clear Acceptable QC Control Line Acceptable Urine 04/01/2024 2:05 PM CDT Bruno Cobb MD POINT OF CARE TEST ORDERABLES Final Result * Hemoglobin A1c (04/01/2024 7:09 AM CDT) Pathologist [facility] Hgb A1C 5.6 4.0 - 5.6 % Estimated Average Glucose 114 mg/dL [facility] Comment: The ADA recommends reporting an estimated Average Glucose (eAG) with all Hemoglobin A1c results using the equation derived from a study of 507 normal and diabetic adults. ??Minority populations were underrepresented and children were not included. ?? (Diabetes Care 31:3916-6463, 2008). ??The eAG is not equivalent to a fasting glucose. Blood 04/01/2024 7:09 AM CDT 04/01/2024 8:02 AM CDT Joannea Smooth Ahmad DO LAB BLOOD ORDERABLES Amanda l Result Performing Organization Address City/[facility] Co de Phone Number [facility] [address] [facility] [place] [address] * Thyroid Function [place] (04/01/2024 7:09 AM CDT) Pathologist [facility] TSH 1.85 0.30 - 4.20 mcIUnit/mL Blood 04/01/2024 7:09 AM CDT 04/01/2024 8:01 AM CDT [facility]add[facility] Ahmad DO LAB BLOOD ORDERABLES Amanda l Result Performing Organization Address [facility] Co de Phone Number [facility] [address] [facility] [place] [address] * Cortisol (04/01/2024 7:09 AM CDT) Pathologist [facility] Cortisol 14.1 4.8 - 19.5 mcg/dl Blood 04/01/2024 7:09 AM CDT 04/01/2024 8:01 AM CDT [facility] Smooth Ahmad DO LAB BLOOD ORDERABLES Amanda l Result Performing Organization Address [facility] Co de Phone Number [facility] [address] [facility] [place] [address] * eGFR (04/01/2024 7:09 AM CDT) Pathologist [facility] eGFR >90 >=60 mL/min/1. 73 m2 Comment: [...] MD LAB BLOOD ORDERABLES Fi nal Result [facility] [address] Department [place] [address] * Differential, auto (04/01/2024 7:09 AM CDT) [facility] Neutrophil abs 2.3 1.5 - 6.5 K/cumm Imm gran abs 0.0 0.0 - 0.1 K/cumm [facility] Lymphocyte abs 3.1 0.8 - 3.3 K/cumm [facility] Monocyte abs 0.6 0.2 - 0.8 K/cumm [facility] Eosinophil abs 0.3 0.0 - 0.5 K/cumm [facility] Basophil abs 0.0 0.0 - 0.1 K/cumm [facility] Neutrophil pct 36.6 % [facility] Comment: Interpretive Data Percent cell count reference ranges are not reported, since discordance with absolute values may lead to misinterpretation of CBC data. Current Interpretive Data was last revised on 2017. Imm gran pct 0.2 % [facility] Comment: Interpretive Data Percent cell count reference ranges are not reported, since discordance with absolute values may lead to misinterpretation of CBC data. Current Interpretive Data was last revised on 2017. Lymphocyte pct 49.4 % [facility] Comment: Interpretive Data Percent cell count reference ranges are not reported, since discordance with absolute values may lead to misinterpretation of CBC data. Current Interpretive Data was last revised on 2017. Monocyte pct 9.2 % [facility] Comment: Interpretive Data Percent cell count reference ranges are not reported, since discordance with absolute values may lead to misinterpretation of CBC data. Current Interpretive Data was last revised on 2017. Eosinophil pct 4.0 % [facility] Comment: Interpretive Data Percent cell count reference ranges are not reported, since discordance with absolute values may lead to misinterpretation of CBC data. Current Interpretive Data was last revised on 2017. Basophil pct 0.6 % [facility] Comment: Interpretive Data Percent cell count reference ranges are not reported, since discordance with absolute values may lead to misinterpretation of CBC data. Current Interpretive Data was last revised on 2017. Blood 04/01/2024 7:09 AM CDT 04/01/2024 8:02 AM CDT us Jonathan Scruggs MD LAB BLOOD ORDERABLES Fi nal Result [facility] [address] Department [place] [address] * Comprehensive metabolic panel (04/01/2024 7:09 AM CDT) [facility] Sodium 137 135 - 145 mmol/L Potassium, pl 4.0 3.3 - 4.9 mmol/L [facility] Chloride 105 97 - 110 mmol/L [facility] CO2 22 22 - 32 mmol/L [facility] Anion gap 10 2 - 15 mmol/L [facility] BUN 6 6 - 25 mg/dL [facility] Creatinine 0.75 0.60 - 1.10 mg/dL [facility] Glucose 71 70 - 199 mg/dL [facility] Comment: Interpretive Data Fasting glucose >/= 126 [...] 2022. Calcium 8.9 8.5 - 10.3 mg/dL [facility] Bilirubin, total 0.4 0.1 - 1.2 mg/dL [facility] Protein, pl 6.5 6.5 - 8.5 g/dL [facility] Albumin 3.6 3.5 - 5.0 g/dL [facility] Alk phos 76 40 - 130 Units/L [facility] ALT 30 7 - 45 Units/L [facility] AST 25 10 - 45 Units/L [facility] Blood 04/01/2024 7:09 AM CDT 04/01/2024 8:01 AM CDT us Jonathan Scruggs MD LAB BLOOD ORDERABLES Fi nal Result [facility] [address] Department [place] [address] * CBC with auto differential (04/01/2024 7:09 AM CDT) [facility] WBC 6.3 3.8 - 9.9 K/cumm Hgb 12.5 11.9 - 15.5 g/dL [facility] Hct 38.2 35.6 - 45.5 % [facility] Plt 334 150 - 400 K/cumm [facility] MPV 10.7 9.1 - 12.3 fL [facility] RBC 4.30 3.90 - 5.20 M/cumm [facility] MCV 88.8 81.3 - 96.4 fL [facility] MCH 29.1 27.1 - 33.3 pg [facility] MCHC 32.7 32.3 - 35.7 g/dL [facility] RDW CV 13.2 11.1 - 14.9 % [facility] RDW SD 42.6 35.7 - 48.1 fL [facility] NRBC abs 0.00 0.00 - 0.01 K/cumm [facility] Blood 04/01/2024 7:09 AM CDT 04/01/2024 8:02 AM CDT Jonathan Scruggs MD LAB BLOOD ORDERABLES Fi nal Result [facility] [id number] [place] [address] * Lipase - Add on lab test (03/31/2024 12:16 PM CDT) Acceptable Yes Blood 03/31/2024 12:1 6 PM CDT 03/31/2024 12:16 PM CDT Narrative [facility] - 03/31/2024 12:16 PM CDT Name of Test->Lipase Jonathan Scruggs MD LAB BLOOD ORDERABLES Fi nal Result [facility] [id number] [place], [place] [id number] * Lipase (03/31/2024 6:56 AM CDT) Lipase 21 10 - 99 Units/L Blood 03/31/2024 6:56 AM CDT 03/31/2024 7:25 AM CDT us Jonathan Scruggs MD LAB BLOOD ORDERABLES Fi nal Result Performing Organization Address [facility] Co de Phone Number [facility] [address] Department [place] [address] * eGFR (03/31/2024 6:56 AM CDT) eGFR >90 >=60 mL/min/1. [...] 6:56 AM CDT 03/31/2024 7:25 AM CDT us Sravan Marsh DO LAB BLOOD ORDERABLES F inal Result [facility] [address] Department [place] [address] * (ABNORMAL) Differential, auto (03/31/2024 6:56 AM CDT) Neutrophil abs 3.8 1.5 - 6.5 K/cumm Imm gran abs 0.0 0.0 - 0.1 K/cumm [facility] Lymphocyte abs 4.8(H) 0.8 - 3.3 K/cumm [facility] Monocyte abs 0.9(H) 0.2 - 0.8 K/cumm [facility] Eosinophil abs 0.1 0.0 - 0.5 K/cumm [facility] Basophil abs 0.0 0.0 - 0.1 K/cumm [facility] Neutrophil pct 39.3 % [facility] Comment: Interpretive Data Percent cell count reference ranges are not reported, since discordance with absolute values may lead to misinterpretation of CBC data. Current Interpretive Data was last revised on 2017. Imm gran pct 0.2 % [facility] Comment: Interpretive Data Percent cell count reference ranges are not reported, since discordance with absolute values may lead to misinterpretation of CBC data. Current Interpretive Data was last revised on 2017. Lymphocyte pct 49.3 % [facility] Comment: Interpretive Data Percent cell count reference ranges are not reported, since discordance with absolute values may lead to misinterpretation of CBC data. Current Interpretive Data was last revised on 2017. Monocyte pct 9.5 % [facility] Comment: Interpretive Data Percent cell count reference ranges are not reported, since discordance with absolute values may lead to misinterpretation of CBC data. Current Interpretive Data was last revised on 2017. Eosinophil pct 1.3 % [facility] Comment: Interpretive Data Percent cell count reference ranges are not reported, since discordance with absolute values may lead to misinterpretation of CBC data. Current Interpretive Data was last revised on 2017. Basophil pct 0.4 % [facility] Comment: Interpretive Data Percent cell count reference ranges are not reported, since discordance with absolute values may lead to misinterpretation of CBC data. Current Interpretive Data was last revised on 2017. Blood 03/31/2024 6:56 AM CDT 03/31/2024 7:25 AM CDT Sravan Marsh [facility] BLOOD ORDERABLES F inal Result Performing Organization Address [facility] Co de Phone Number [facility] [address] [place] [place] [address] * CBC with auto differential (03/31/2024 6:56 AM CDT) WBC 9.7 3.8 - 9.9 K/cumm Hgb 12.2 11.9 - 15.5 g/dL [facility] Hct 35.6 35.6 - 45.5 % [facility] Plt 339 150 - 400 K/cumm [facility] MPV 10.4 9.1 - 12.3 fL [facility] RBC 4.19 3.90 - 5.20 M/cumm [facility] MCV 85.0 81.3 - 96.4 fL [facility] MCH 29.1 27.1 - 33.3 pg [facility] MCHC 34.3 32.3 - 35.7 g/dL [facility] RDW CV 13.2 11.1 - 14.9 % [facility] RDW SD 41.1 35.7 - 48.1 fL [facility] NRBC abs 0.00 0.00 - 0.01 K/cumm [facility] Blood 03/31/2024 6:56 AM CDT 03/31/2024 7:25 AM CDT Sravan Marsh DO LAB BLOOD ORDERABLES F inal Result Performing Organization Address City/[facility]/ZIP Co de Phone Number [facility] [address] Department [employer] [place], [place] [id number] * (ABNORMAL) Basic metabolic panel (03/31/2024 6:56 AM CDT) Pathologist [facility] Sodium 137 135 - 145 mmol/L Potassium, pl 3.1(L) 3.3 - 4.9 mmol/L [facility] Chloride 103 97 - 110 mmol/L [facility] CO2 23 22 - 32 mmol/L [facility] Anion gap 11 2 - 15 mmol/L [facility] BUN 7 6 - 25 mg/dL [facility] Creatinine 0.76 0.60 - 1.10 mg/dL [facility] Glucose 80 70 - 199 mg/dL [facility] Comment: Interpretive Data Fasting glucose >/= 126 [...] 2022. Calcium 8.5 8.5 - 10.3 mg/dL [facility] Blood 03/31/2024 6:56 AM CDT 03/31/2024 7:25 AM CDT Sravan Marsh DO LAB BLOOD ORDERABLES F inal Result [facility] [address] Department [place] [address] * POCT glucose (03/30/2024 11:07 PM CDT) [facility] Signature Glucose, POC 86 70 - 199 mg/dL Comment: For Glucose values <35 mg/dl when Hematocrit is >60 mg/dl,the test may not accurately detect significant hypoglycemia,and testing in the Laboratory should be considered if clinically indicated. Blood 03/30/2024 11:0 7 PM CDT 03/30/2024 11:07 PM CDT us Sravan Marsh DO LAB POCT ORDERABLES - DEVICE Final Result [facility] [address] Department [place] [address] * ECG 12 lead (03/30/2024 8:40 PM CDT) 03/30/2024 8:40 PM CDT Narrative [facility] - 03/31/2024 11:40 AM CDT Vent Rate: 57 bpm RR Interval: 1035 msec ID Interval: 101 msec QRS Duration: 82 msec QT Interval: 418 msec QTC Interval: 413 msec P-R-T Hedley: 48 - 32 - 49 degrees IMPRESSION: SINUS BRADYCARDIA WITH SHORT ID INTERVAL BORDERLINE ECG Electronically Signed By: Yahir Miranda ??[facility] Card us Luma Payne TICKET [employer]ER ECG ORDERABLES Fin al Result Performing Organization Address [facility] Co de Phone Number [facility] * eGFR (03/30/2024 8:08 PM [...] NP LAB BLOOD ORDERABLE S Final Result [facility] [address] Department [place] [address] * Basic metabolic panel (03/30/2024 8:08 PM CDT) Sodium 141 135 - 145 mmol/L Potassium, pl 3.8 3.3 - 4.9 mmol/L [facility] Chloride 105 97 - 110 mmol/L [facility] CO2 23 22 - 32 mmol/L [facility] Anion gap 13 2 - 15 mmol/L [facility] BUN 8 6 - 25 mg/dL [facility] Creatinine 0.73 0.60 - 1.10 mg/dL [facility] Glucose 96 70 - 199 mg/dL [facility] Comment: Interpretive Data Fasting glucose >/= 126 [...] 2022. Calcium 8.9 8.5 - 10.3 mg/dL [facility] Blood 03/30/2024 8:08 PM CDT 03/30/2024 8:21 PM CDT Luma Payne NP LAB BLOOD ORDERABLE S Final Result [facility] [address] Department [place] [address] * (ABNORMAL) Opiates Confirmation, Urine (03/30/2024 6:20 PM CDT) Codeine Conf, Ur Does Not Confirm CutOff 50 ng/mL Comment:Testing performed by : [facility], [address] [place] [address] 6- Acetylmorphine Conf, Ur Does Not Confirm CutOff 10 ng/mL [facility] Comment:Testing performed by : [facility], [address] [place]., [address] Hydrocodone Conf, Ur Confirmed Positive(A) CutOff 50 ng/mL [facility] Comment:Testing performed by : [facility], [address] [place]., [address] Morphine Conf, Ur Does Not Confirm CutOff 50 ng/mL [facility] Comment:Testing performed by : [facility], [address] [place]., [address] Hydromorphone Conf, Ur Does Not Confirm CutOff 50 ng/mL [facility] Comment: Interpretive Data This test detects the presence or absence of drug compounds using LC Tandem mass spectrometry and is not intended to assess compliance with prescribed medications. While this test is highly specific, false positive and false negative results may occur in very rare circumstances. Contact the laboratory for consultation, if needed. Performance characteristics were determined by the [facility] in a manner consistent with CLIA requirement and has not been cleared or approved by the U.S. Food and Drug Administration. Current interpretive data was last revised 2020. Testing performed by: [facility], [address] [place]., [address] Urine 03/30/2024 6:20 PM CDT 03/30/2024 8:38 PM CDT Noman GONZALEZ LAB URINE ORDERABLES Final Re sult [facility] [address] Department [place] [address] * (ABNORMAL) Urinalysis, microscopic only (03/30/2024 6:20 PM CDT) WBC, ur 0-5 0 - 5 /HPF RBC, ur 3-5(A) 0 - 2 /HPF [facility] Epithelial cells, squamous, ur 1-5 0 - 5 /HPF [facility] Bacteria, ur Trace(A) [facility] Mucous, ur Present(A) [facility] Culture Reflex Comment Reflex conditions for urine culture (WBC >10) not met. [facility] Urine, clean voided 03/30/2024 6:20 PM CDT 03/30/2024 6:31 PM CDT Noman GONZALEZ LAB URINE ORDERABLES Final Re sult Performing Organization Address [facility] de Phone Number [facility] [address] [place] [address] * (ABNORMAL) Drugs of Abuse Screen, Urine [...] 2023. Barbiturates, ur Not Detected CutOff 200ng/mL [facility] Comment: Interpretive Data - Barbiturates: ??Samples containing greater than 200 ng/mL secobarbital or other cross-reacting barbiturate compounds are reported as positive. ??False positive and false negative results are possible. Confirmatory testing required for definitive results. Current Interpretive Data was last reviewed 2023. Benzodiazepines, ur Not Detected CutOff 100ng/mL [facility] Comment: Interpretive Data - Benzodiazepines: ??Samples containing greater than 100 ng/mL nordiazepam or other cross-reacting compounds are reported as positive. False positive and false negative results are possible. Confirmatory testing required for definitive results. Current Interpretive Data was last reviewed 2023. Cannabinoids, ur Screen Positive, presumptive (A) CutOff 50 ng/mL [facility] Comment: Interpretive Data - Cannabinoids: ??Samples containing greater than 50 ng/mL delta-9 THC -COOH or other cross-reacting compounds are reported as positive. ??False positive and false negative results are possible. ??Confirmatory testing required for definitive results. Current Interpretive Data was last reviewed 2023. Cocaine, ur Not Detected CutOff 150ng/mL [facility] Comment: Interpretive Data - Cocaine: ??Samples containing greater than 150 ng/mL benzoylecgonine or other cross-reacting compounds are reported as positive. False positive and false negative results are possible. Confirmatory testing required for definitive results. Current Interpretive Data was last reviewed 2023. Fentanyl, Ur Not Detected CutOff 5 ng/mL [facility] Comment: Interpretive Data - Fentanyl: ?? Samples containing greater than 5 ng/mL norfentanyl, fentanyl, or other cross-reacting fentanyl compounds are reported as positive. False positive and false negative results are possible. Confirmatory testing required for definitive results. Current Interpretive Data was last reviewed 2023. Methadone, ur Not Detected CutOff 300ng/mL [facility] Comment: Interpretive Data - Methadone: ??Samples containing greater than 300 ng/mL d,l-methadone or other cross-reacting compounds are reported as positive. ??False positive and false negative results are possible. Confirmatory testing required for definitive results. Current Interpretive Data was last reviewed 2023. Opiates, ur Screen Positive, presumptive (A) CutOff 300ng/mL [facility] Comment: Interpretive Data - Opiates: ??Samples containing greater than 300 ng/mL morphine or other cross-reacting compounds are reported as positive. ??False positive and false negative results are possible. Confirmatory testing required for definitive results. Current Interpretive Data was last reviewed 2023. Oxycodone, ur Not Detected CutOff 100ng/mL [facility] Comment: Interpretive Data - Oxycodone: ??Samples containing greater than 100 ng/mL oxycodone or other cross-reacting compounds are reported as ??positive. ??False positive and false negative results are possible. Confirmatory testing required for definitive results. Current Interpretive Data was last reviewed 2023. Phencyclidine, ur Not Detected CutOff 25 ng/mL [facility] Comment: Interpretive Data - Phencyclidine: ??Samples containing greater than 25 ng/mL phencyclidine or other cross-reacting compounds are reported as positive. ??False positive and false negative results are possible. Confirmatory testing required for definitive results. Current Interpretive Data was last reviewed 2023. Urine Creatinine 53 mg/dL [facility] Comment: Interpretive Data Urine Creatinine: < 10 mg/dL is extremely dilute = or > 10 but < 20 mg/dL is dilute = or > 20 mg/dL is normal Current Interpretive Data was last revised on 2017. Urine 03/30/2024 6:20 PM CDT 03/30/2024 6:30 PM CDT Narrative [facility] - 03/30/2024 6:58 PM CDT Drug of Abuse screening is performed by immunoassay for medical purposes only. ??This is not to be used for Pain Management purposes. ??If Detected, confirmation testing will be performed for Amphetamines, Cocaine, Fentanyl, Methadone, Opiates, Oxycodone or Phencyclidine. Noman GONZALEZ LAB URINE ORDERABLES Final Re sult [facility] [address] Department [place] [address] * (ABNORMAL) Urinalysis reflex to microscopic and culture Urine, clean voided (03/30/2024 6:20 PM CDT) Color, ur Straw Yellow Clarity, ur Clear Clear [facility] Specific gravity, ur 1.013 1.003 - 1.030 [facility] pH, urine 6.5 [facility] Comment: Interpretive Data ? Urine pH is affected by diet, medications, systemic acid-base disturbances, and renal tubular function. ??pH may affect urinary stone formation. ??For example, urine pH below 6.0 may help reduce the tendency for calcium phosphate stones and pH greater than 6.0 may reduce the tendency for uric acid stone formation. Source: [facility] Current Interpretive Data was last revised on 2017 Protein, ur ql Negative Negative [facility] Glucose, ur ql Negative Negative [facility] Ketones, ur 3+(A) Negative [facility] Bilirubin, ur Negative Negative [facility] Blood, ur 1+(A) Negative [facility] Urobilinogen, ur <2.0 <2.0 mg/dL [facility] Nitrite, ur Negative Negative [facility] Leukocyte esterase, ur Negative Negative [facility] UA reflex comment Reflex to microscopic UA will be performed. [facility] Urine, clean voided 03/30/2024 6:20 PM CDT 03/30/2024 6:22 PM CDT us Noman GONZALEZ LAB MICROBIOLOGY - GENERAL OR DERABLES Final Result Performing Organization Address [facility] Co de Phone Number [facility] [address] [place] [place] [address] * Troponin T high-sensitivity 2-hour (03/30/2024 6:00 PM CDT) Trop T hs 6 <=14 ng/L Comment: Interpretive Data For further hscTnT resources including the diagnostic algorithm and an aid in interpretation, copy and paste this link: https://nrl.testcatalog.org/show/hsTrop Current Interpretive Data last revised 2020. Trop T hs delta 0 ng/L [facility] Trop T hs interp Insignificant [facility] Blood 03/30/2024 6:00 PM CDT 03/30/2024 6:06 PM CDT us Diane Knox MD LAB BLOOD ORDERABLES Final Result Performing Organization Address [facility]/ZIP Co de Phone Number [facility] [address] Department [place] [address] * eGFR (03/30/2024 3:40 PM CDT) eGFR [...] DO LAB BLOOD ORDERABLES F inal Result [facility] [address] [place] [address] * (ABNORMAL) Differential, auto (03/30/2024 3:40 PM CDT) Neutrophil abs 9.8(H) 1.5 - 6.5 K/cumm Imm gran abs 0.1 0.0 - 0.1 K/cumm [facility] [facility] Lymphocyte abs 2.1 0.8 - 3.3 K/cumm [facility] Monocyte abs 0.8 0.2 - 0.8 K/cumm [facility] Eosinophil abs 0.0 0.0 - 0.5 K/cumm [facility] Basophil abs 0.1 0.0 - 0.1 K/cumm [facility] Neutrophil pct 76.6 % [facility] Comment: Interpretive Data Percent cell count reference ranges are not reported, since discordance with absolute values may lead to misinterpretation of CBC data. Current Interpretive Data was last revised on 2017. Imm gran pct 0.4 % [facility] Comment: Interpretive Data Percent cell count reference ranges are not reported, since discordance with absolute values may lead to misinterpretation of CBC data. Current Interpretive Data was last revised on 2017. Lymphocyte pct 16.3 % [facility] Comment: Interpretive Data Percent cell count reference ranges are not reported, since discordance with absolute values may lead to misinterpretation of CBC data. Current Interpretive Data was last revised on 2017. Monocyte pct 6.0 % [facility] Comment: Interpretive Data Percent cell count reference ranges are not reported, since discordance with absolute values may lead to misinterpretation of CBC data. Current Interpretive Data was last revised on 2017. Eosinophil pct 0.2 % [facility] Comment: Interpretive Data Percent cell count reference ranges are not reported, since discordance with absolute values may lead to misinterpretation of CBC data. Current Interpretive Data was last revised on 2017. Basophil pct 0.5 % [facility] Comment: Interpretive Data Percent cell count reference ranges are not reported, since discordance with absolute values may lead to misinterpretation of CBC data. Current Interpretive Data was last revised on 2017. Blood 03/30/2024 3:40 PM CDT 03/30/2024 4:03 PM CDT us Sravan Marsh DO LAB BLOOD ORDERABLES F inal Result [facility] [address] Department [place] [address] * Troponin T high-sensitivity series (baseline, 2hr, 4hr, 6hr) (03/30/2024 3:40 PM CDT) Pathologist [facility] Trop T hs <6 <=14 ng/L Comment: Interpretive Data For further hscTnT resources including the diagnostic algorithm and an aid in interpretation, copy and paste this link: [email or web address] Current Interpretive Data last revised 2020. Blood 03/30/2024 3:40 PM CDT 03/30/2024 4:03 PM CDT Sravan Marsh DO LAB BLOOD ORDERABLES F inal Result [facility] [address] Department [place] [address] * (ABNORMAL) Comprehensive metabolic panel (03/30/2024 3:40 PM CDT) [facility] Sodium 138 135 - 145 mmol/L Potassium, pl 3.2(L) 3.3 - 4.9 mmol/L [facility] Chloride 96(L) 97 - 110 mmol/L [facility] CO2 21(L) 22 - 32 mmol/L [facility] Anion gap 21(H) 2 - 15 mmol/L [facility] BUN 10 6 - 25 mg/dL [facility] Creatinine 0.82 0.60 - 1.10 mg/dL [facility] Glucose 103 70 - 199 mg/dL [facility] Comment: Interpretive Data Fasting glucose >/= 126 [...] 2022. Calcium 9.5 8.5 - 10.3 mg/dL [facility] Bilirubin, total 0.4 0.1 - 1.2 mg/dL [facility] Protein, pl 8.5 6.5 - 8.5 g/dL [facility] Albumin 4.7 3.5 - 5.0 g/dL [facility] Alk phos 98 40 - 130 Units/L [facility] ALT 39 7 - 45 Units/L [facility] AST 32 10 - 45 Units/L [facility] Blood 03/30/2024 3:40 PM CDT 03/30/2024 4:03 PM CDT Sravan Marsh DO LAB BLOOD ORDERABLES F inal Result [facility] [address] Department [place] [address] * (ABNORMAL) CBC with auto differential (03/30/2024 3:40 PM CDT) WBC 12.7(H) 3.8 - 9.9 K/cumm Hgb 14.7 11.9 - 15.5 g/dL [facility] Hct 43.4 35.6 - 45.5 % [facility] Plt 462(H) 150 - 400 K/cumm [facility] MPV 10.3 9.1 - 12.3 fL [facility] RBC 5.08 3.90 - 5.20 M/cumm [facility] MCV 85.4 81.3 - 96.4 fL [facility] MCH 28.9 27.1 - 33.3 pg [facility] MCHC 33.9 32.3 - 35.7 g/dL [facility] RDW CV 13.3 11.1 - 14.9 % [facility] RDW SD 41.2 35.7 - 48.1 fL [facility] NRBC abs 0.00 0.00 - 0.01 K/cumm [facility] Blood (Blood, Venous) 03/30/2024 3:40 PM CDT 03/30/2024 4:03 PM CDT Sravan Marsh DO LAB BLOOD ORDERABLES F inal Result [facility] [address] Department [place] [address] * XR Chest PA Lateral 2 Views [...] PM CDT) 03/30/2024 3:11 PM CDT Narrative [facility] - 03/31/2024 11:40 AM CDT Vent Rate: 62 bpm RR Interval: 955 msec ID Interval: 101 msec QRS Duration: 86 msec QT Interval: 430 msec QTC Interval: 436 msec P-R-T Hedley: 47 - 24 - 56 degrees IMPRESSION: SINUS RHYTHM WITH SHORT ID INTERVAL POSSIBLE RIGHT VENTRICULAR CONDUCTION DELAY BORDERLINE ECG Electronically Signed By: Yahir Miranda ??[facility] Card us Sravan Natalia Marsh DO ECG ORDERABLES Final Result [facility] documented in this encounter Visit Diagnoses Diagnosis Intractable nausea and vomiting- Primary Chest pain, unspecified type Nausea and vomiting, unspecified vomiting type Intractable nausea and vomiting [R11.2] Intractable vomiting Persistent vomiting On total parenteral nutrition Intractable vomiting Persistent vomiting Intractable nausea and vomiting documented in this encounter Admitting Diagnoses Diagnosis Intractable nausea and vomiting Intractable vomiting Persistent vomiting documented in this encounter Administered Medications Inactive Administered Medications - up to 3 most recent administrations Medication Order MAR Action Action Date Dose Rate Site benzocaine-menthoL (CHLORASEPTIC) lozenge 1 lozenge 1 lozenge, [...] PM CDT 75 mL/hr 75 mL/ hr DULoxetine DR (CYMBALTA) extended release capsule 30 mg 30 mg, oral, Daily with evening meal, First dose on Nicole 04/04/24 at 1800, Capsule may be opened and contents mixed with applesauce or apple juice ONLY. Do not crush or chew capsule Given 04/08/2024 8: 53 PM CDT 30 mg Given 04/07/2024 6:36 PM CDT 30 mg Given 04/06/2024 6:08 PM CDT 30 mg enoxaparin (LOVENOX) syringe 40 mg 40 mg, subcutaneous, Daily (for enoxaparin), First dose on 03/30/24 at 2330, Indications: Deep Vein Thrombosis PreventionIndications:Deep Vein Thrombosis Prevention Given 04/06/2024 9:22 PM CDT 40 mg Left Lower Abdomen Given 04/05/2024 8:11 PM CDT 40 mg Ri ght Lower Abdomen Given 2024 9:25 PM CDT 40 mg Le ft Lower Abdomen famotidine (PEPCID) injection 20 mg 20 mg, intravenous, Administer over 2 Minutes, Every 12 hours scheduled, First dose on 03/31/24 at 1245 Given 04/09/2024 9:26 AM CDT 20 mg Given 04/08/2024 8:55 PM CDT 20 mg Given 04/08/2024 12:31 PM CDT 20 mg LORazepam (ATIVAN) injection 0.5 mg 0.5 mg, [...] on 03/30/24 at 2151, On hold since [place] 04/07/2024 at 1305 until manually unheld Given 04/03/2024 9:56 AM CDT 2 mg Given 04/02/2024 4:36 PM CDT 2 mg Given 04/02/2024 9:00 AM CDT 2 mg ondansetron (ZOFRAN) injection 4 mg 4 mg, intravenous, Administer over 2 Minutes, 3 times daily, First dose on [place] 03/31/24 at 1600 Given 04/08/2024 8: 22 AM CDT 4 mg Given 04/07/2024 8:01 PM CDT 4 mg Given 04/07/2024 2:59 PM CDT 4 mg prochlorperazine (COMPAZINE) injection 5 mg 5 mg, intravenous, Administer over 2 Minutes, Every 6 hours PRN, nausea, vomiting, 2nd line for n/v, Starting on [place] 04/07/24 at 2200 Given 04/07/2024 10:24 PM CDT 5 mg ramelteon (ROZEREM) tablet 8 mg 8 mg, oral, Nightly, First dose (after last modification) on [place] 04/06/24 at 2100, Indications: Sleep-Onset InsomniaIndications:Sleep-Onset Insomnia Given 04/08/2024 8:54 PM CDT 8 m g Given 04/07/2024 8:01 PM CDT 8 mg Given 04/06/2024 9:19 PM CDT 8 mg sodium chloride 0.9% flush 5-10 mL 5-10 mL, intra-catheter, Every 12 hours scheduled, First dose on [facility] 04/04/24 at 1415, Flush volume based on line type, size, and protocol. Given 04/08/2024 8:56 PM CDT 10 mL Given 04/08/2024 8:22 AM CDT 10 mL Given 04/07/2024 8:06 PM CDT 10 mL sodium chloride 0.9% flush 5-10 mL 5-10 mL, intra-catheter, Every 12 hours scheduled, First dose on [place] 04/07/24 at 1315, Flush volume based on line [...] Given 04/07/2024 9:38 PM CDT 10 mL trimethobenzamide (TIGAN) injection 200 mg 200 mg, [...] Given 04/06/2024 9:28 AM CDT 40 mg documented in this encounter Discontinued Medications [...] Amanda RN)1400 (Not Given - Provider: Dannielle Amanda RN - Reason: Patient/family refused - Comment: with nausea)2000 (Given - Provider: Hazel Stuart RN) 123 (Not Given - Provider: Amber Martinez RN - Reason: Patient not available) al & mag hydroxide simethicone-lidocaine oral suspension mixture (COMPLETED) 40 mL, oral, Once, On 04/07/24 at 2300, For 1 dose 2223 (Given - Provider: Hazel Stuart, RUBÉN) ARIPiprazole (ABILIFY) tablet 4 mg (CANCELED) 4 [...] ONLY. Do not crush or chew capsule 183 (Given - Provider: Dannielle Amanda RN) 2052 (Given - Provider: Kayley Antonio, RUBÉN) enoxaparin (LOVENOX) syringe 40 mg 40 mg, [...] Every 12 hours scheduled, First dose on 03/31/24 at 1245 0911 (Given - Provider: Dannielle Amanda RN)192 (Given - Provider: Hazel Stuart RN) 123 (Given - Provider: Amber Martinez, RUBÉN)2054 (Given - Provider: Kayley Antonio, RUBÉN) 09 (Given - Provider: Amber Martinez, RUBÉN) mirtazapine (REMERON) tablet 7.5 mg 7.5 mg, oral, Nightly, First dose on Mon04/05/24 at 2100 2000 (Given - Provider: Hazel Stuart RN) 2053 (Given - Provider: Kayley Antonio, RUBÉN) ondansetron (ZOFRAN) injection 4 mg 4 mg, [...] Kayley Antonio RN - Reason: Patient/family refused) 912 (Not Given - Provider: Amber Martinez RN [...] hypokalemia 1412 (New Bag - Provider: Amber Martinez RN) ramelteon (ROZEREM) tablet 8 mg 8 mg, oral, Nightly, First dose (after last modification) on Mon04/06/24 at 2100, Indications: Sleep-Onset Insomnia 2000 (Given - Provider: Hazel Stuart RN) 2053 (Given - Provider: Kayley Antonio RN) sincalide (KINEVAC) injection 0.6 mcg (COMPLETED) 0.6 mcg (rounded from 0.583 mcg = 0.01 mcg/kg ? 58.3 kg), intravenous, Administer over 5 Minutes, Once, On Mon04/08/24 at 0945, For 1 dose 0901 (New Bag - Provider: RT Michael) sincalide (KINEVAC) injection 1.2 mcg (COMPLETED) 1.2 mcg (rounded from 1.166 mcg = 0.02 mcg/kg ? 58.3 kg), intravenous, Administer over 60 Minutes, Once, On Mon04/08/24 at 1115, For 1 dose 1036 (New Bag - Provider: RT Michael) sodium chloride 0.9% flush 5-10 mL 5-10 mL, intra-catheter, Every 12 hours scheduled, First dose on [place] 04/04/24 at 1415, Flush volume based on line type, size, and protocol. 0900 (Not Given - Provider: Dannielle Amanda RN - Reason: IV Infusing)2005 (Given - Provider: Hazel Stuart, RUBÉN) 08 (Given - Provider: Amber Martinez RN)2055 (Given - Provider: Kayley Antonio RN) 1015 (Canceled Entry - Provider: Amber Martinez RN) sodium chloride 0.9% flush 5-10 mL 5-10 mL, intra-catheter, Every 12 hours scheduled, First dose on [place] 04/07/24 at 1315, Flush volume based on line type, size, and protocol. 1300 (Not Given - Provider: Dannielle Amanda RN - Reason: Loss of IV access)1920 (Given - Provider: Hazel Stuart RN) 821 (Given - Provider: Amber Martinez RN)2055 (Given - Provider: Kayley Antonio RN) 1015 (Canceled Entry - Provider: Amber Martinez [...] Stuart RN)2227 (Rate/Dose Verify - Provider: Hazel Stuart RN) 0355 (New Bag - Provider: Hazel Stuart RN) 0022 (New Bag - Provider: Kayley Antonio, [...] 1305 (Held by Provider - Provider: Nicholas Saba DO - Reason: Hold for Procedure) 1900 [...] line care, with each use, Starting on [place] 04/04/24 at 1338, Flush volume based on line [...] at 1436 1224 (Given - Provider: Dannielle Amanda RN) documented in this encounter Orders Medications Ordered That Ramy ht Not Have Been Administered Count Last Ordered Date First Ordered Date calcium carbonate (TUMS) sabine wable tablet 500 mg 1 04/08/2024 potassium chloride 40 mEq/10 0 mL in sterile water (premix) 40 mEq 1 04/08/2024 sincalide (KINEVAC) injection 0.6 mcg 1 sincalide (KINEVAC) injection 1.2 mcg 2 [id number] mebrofenin (choletec) injection 5.84 millicurie 1 04/08/2024 al & mag hydroxide simethico ne-lidocaine oral suspension mixture 2 04/07/2024 03/30/2024 dextrose 5% and sodium chlor isaac 0.45% infusion (premix) 1 04/07/2024 lidocaine (PF) (XYLOCAINE) 1 0 mg/mL (1 %) preservative free injection 10-20 mg 2 04/07/2024 potassium chloride 40 mEq in sodium chloride 0.9% 500 mL IVPB 1 04/07/2024 prochlorperazine (COMPAZINE) injection 5 mg 3 04/07/2024 03/31/2024 promethazine (PHENERGAN) suppository 25 mg 1 04/07/2024 sodium chloride 0.9% flush 5-10 mL 3 202304/04/2024 sodium chloride 0.9% flush 5-20 mL 3 202304/04/2024 benzocaine-menthoL (CHLORASE PTIC) lozenge 1 lozenge 1 04/06/2024 ramelteon (ROZEREM) tablet 8 mg 2 4 03/30/2024 erythromycin (ERYTHROCIN) 50 0 mg in sodium chloride 0.9% 100 mL IVPB 1 04/05/2024 mirtazapine (REMERON) tablet 7.5 mg 1 04/05 ondansetron (ZOFRAN) injection 4 mg 6 04/0503/30/2024 potassium phosphate 30 mmol/ 510 mL in sodium chloride 0.9% IVPB (premix) 30 mmol 1 04/05/2024 sodium bicarbonate 150 mEq/1 ,150 mL in dextrose 5 % infusion 1 04/05/[address] (CYMBALTA) ext ended release capsule 30 mg 1 2024 erythromycin (ERYTHROCIN) 25 0 mg in sodium chloride 0.9% 100 mL IVPB 1 2024 sodium chloride 0.9% infusion 3 2024 03/30/2024 diphenhydrAMINE (BENADRYL) 5 0 mg/mL injection 25 mg 2 04/03/2024 03/30/2024 ioversoL (OPTIRAY 350) syringe 75 mL 1 03/15 OLANZapine (ZyPREXA ZYDIS) d isintegrating tablet 5 mg 1 04/03/2024 trimethobenzamide (TIGAN) injection 200 mg 1 04/03/2024 gadoterate meglumine injection 10 mL 1 03/15 scopolamine patch 72 hour 1 patch 1 024 verapamiL (CALAN) tablet 40 mg 1 04/02/2024 acetaminophen (TYLENOL) tablet 1,000 mg 1 0 03/31/2024 famotidine (PEPCID) injection 20 mg 1 03/31 LORazepam (ATIVAN) injection 0.5 mg 1 03/31 sodium chloride 0.45% with p otassium chloride 20 mEq/L infusion (premix) 1 03/31/2024 traMADoL (ULTRAM) tablet 50 mg 1 03/31/2024 acetaminophen (TYLENOL) tablet 650 mg 1 ARIPiprazole (ABILIFY) tablet 4 mg 1 2023 aspirin chewable tablet 324 mg 1 03/30/2024 clonazePAM (KlonoPIN) tablet 0.5 mg 2 03/30 droPERidol (INAPSINE) injection 1.25 mg 1 0 03/30/[address] (CYMBALTA) ext ended release capsule 60 mg 1 03/30/2024 enoxaparin (LOVENOX) syringe 40 mg 1 2023 famotidine (PEPCID) tablet 40 mg 1 03/30/20 HYDROcodone-acetaminophen (N ORCO) 5-325 mg per tablet 1 tablet 1 03/30/2024 ketorolac (TORADOL) 15 mg/mL injection 15 mg 3 03/30/2024 Lactated Ringer's (LR) bolus 1,000 mL 2 morphine injection 2 mg 1 03/30/2024 ondansetron (ZOFRAN) 4 mg/2 mL injection - ADS Override Pull 1 03/30/2024 ondansetron ODT (ZOFRAN-ODT) disintegrating tablet 4 mg 1 03/30/2024 pantoprazole (PROTONIX) 40 m g in sodium chloride 0.9% 10 mL IV Syringe 1 03/30/[address] (PROTONIX) e xtended release tablet 40 mg 1 03/30/2024 traZODone (DESYREL) tablet 100 mg 1 024 verapamiL (CALAN) tablet 80 mg 1 03/30/2024 Lab Orders Without Results [...] 2:07 PM CDT C. difficile suspected 04/03/2024 04/05/202404/05 6:16 AM CDT documented as of this encounter Care Teams [employer] Machinist Relationship Specialty Start Date End Date Maurice Duff Jr., MD [address] [address] PCP - General Family Medicine 03/11/24 documented as of this encounter
--- OUTSIDE RECORDS SUMMARY | 2024-07-30 14:11 | XMS_ITS | Encounter Summary ---
Author Organization [facility] Address [address] [place] [address] Care Team Providers Care [employer] Administrator Name Role Phone Unavailable Primary Care Provider Unavailabl e Reason for Visit * Reason Onset Date Comments COVID-19 EVALUATION 02/25/2020 Encounter Details Date Type Department Care Team (Late st Contact Info) Description 02/25/2020 Telephone [facility] [address] [place] [address] Room 3420 (Third Floor) [place] [address] Marcia Tejeda DNP [address] [facility] [address] [place] [address] COVID-19 EVALUATION Social History Tobacco Use Types Packs/Day Years Used Date Smoking Tobacco: Never Assessed Comments Unknown Sex and Gender Information Value Date Recorded Sex Assigned at Not on file Legal Sex Female 1:55 PM CDT Gender Identity Not on file Sexual Orientation Not on file documented as of this encounter Miscellaneous Notes * Addendum Note - Nasreen Anderson - 02/25/2020 3:04 PM CDTAddended by: NASREEN ANDERSON on: 02/25/2020 03:04 PM Modules accepted: Orders * Telephone Encounter - Marcia Tejeda DNP - 02/25/2020 1:55 PM CDT Employee COVID-19 Screening 02/25/2020 Email: [email or web address] Employee ID# [id number] Employer: [employer] 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 On-site Have you had a known, specific COVID exposure at work? Yes Have you contacted your Occupational Health office? No Date of exposure: 02/24/2020 Name of the COVID-19 positive person to whom you were exposed: Multiple patients through the ER Was the person to whom you were exposed masked? No Patient Mask Comment Not all of them Date of the COVID-19 test for the person to whom you were exposed: 02/24/2020 Test result of the person to whom you were exposed: Positive What PPE was employee wearing? N95;Gown;Gloves Employee PPE Comment glasses Description of exposure: Physical exam Employee Symptoms: Yes Date of employee symptom onset: 02/25/2020 Description of Symptoms: Cough;Fever;Trouble Breathing;Sore Throat;Muscle Aches;Joint Aches;Other Temperature: 100.7 Other Symptoms: nausea, fatigue Did you have symptoms at work? Yes Date symptoms started: 02/25/2020 Date Symptoms Started Comment 4 AM Date last worked: 02/25/2020 Do you currently live with, or have ongoing contact with, someone known or suspected to have COVID-19? No Exposure Risk (See Exposure Guide): Medium Assessment: Symptomatic, occupational exposure Plan: (A) Stay home and test Testing Site Location: [facility] Script A (Stay home and test) Given your symptoms, you should not come to work and will be referred for testing. ?? Please go to the employee testing site at ___[facility] ; depending on which site is closer for the employee) ?? While you are awaiting testing and results, you must remain off work. While waiting for results,home quarantine guidance still applies. You should isolate yourself at home, avoid contact with anyhousehold members as much as possible, and stay in your home without leaving except for medical care. If your symptoms worsen, please call back or call 911 - let your providers, ER or EMS now that you are being tested for COVID19. ?? Once your results are back, you will receive further instruction from Occupational Health. Don'treturn to work until you hear from [place]. Occupational Health will notify you and your senior international tax manager when you can return to work. ?? Any isolation or quarantine instructions provided to the employee from federal, state or local public health authorities must be followed. ?? We will send you an email with self-quarantine instruction. documented in this encounter Plan of Treatment Not on file documented as of this encounter Results * (ABNORMAL) COVID-19 Coronavirus RNA Nasopharyngeal (02/25/2020 3:04 PM CDT) [facility] Signature COVID-19 RNA Detected( A) [facility] Comment: Interpretive Data Testing performed at [facility]. The 2018-Novel Coronavirus Assay (COVID-19) Real Time RT-PCR assay is for in vitro diagnostic use under FDA emergency use authorization only. A negative RT-PCR result does not preclude infection with COVID-19 and should not be used as the sole basis for treatment or other patient management decisions. Additional sample types have been validated according to CLIA regulations. ?? Current Interpretive Data was last revised on 2019. Testing performed by: [facility], [address] [facility] [place]., [address] Nasopharyngeal 02/25/2020 3: 04 PM CDT 02/25/2020 7:53 PM CDT Narrative [facility] - 02/26/2020 3:43 AM CDT Patient is employed by:->[facility] Is the patient experiencing any symptoms consistent with COVID (eg. Fever, cough, shortness of breath)?->Yes What is the reason for testing?->Symptoms compatible with COVID-19 in high-risk group (defined above in process inst.) us Susana Valentine MD LAB MICROBIOLOGY - GENERAL ORDERABLES Final Result [facility] [address] Department [place] [address] documented in this encounter Visit Diagnoses Diagnosis Cough- Primary Fever, unspecified fever cause documented in this encounter Additional Health Concerns Infection Onset Date Last Indicated Resolved Time COVID: Suspected 02/25/2020 02/25/2020 02/26/2020 3:43 AM CDT documented as of this encounter
--- OUTSIDE RECORDS SUMMARY | 2024-07-30 14:11 | XMS_ITS | Encounter Summary ---
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 Procedures Colposcopy Aura Bryan MD Phone: tel: fax: [facility] Referral ID Status Reason Start Date Expiration Date V isits Requested Visits Authorized [id number] Authorized 11/27/2023 12/26/2024 1 1 Reason for Visit * Reason Comments Colposcopy Encounter Details Date Type Department Care Team (Latest Contact Info) Description 11/27/2023 10:30 AM CDT Procedure visit [facility] [address] [facility] [address] [place] [phone] Aura Bryan MD [address] [address] Encounter for biopsy (Primary Dx); HPV (human papilloma virus) infection Social History Tobacco Use Types Packs/Day Years [...] Sign Reading Time Taken Comments Blood Pressure 128/80 11/27/2023 10:41 AM CDT Pulse - - Temperature - - Respiratory Rate - - Oxygen Saturation - - Inhaled Oxygen Concentration - - Weight 64.1 kg (141 lb 6.4 oz) 11/27/2023 10:41 AM CDT Height 154.9 cm (5' 1 ) 11/27/2023 10:41 AM CDT Body Mass Index 26.72 11/27/2023 10:41 AM CDT documented in this encounter Procedure Notes * Aura Bryan MD - 11/27/2023 10:30 AM CDTAssociated Order(s): Colposcopy Post-Procedure Diagnose(s): Encounter for biopsy; HPV (human papilloma virus) infection Images from the original note were not included. Colposcopy Subjective: Ángela Ibrahim is a 38 y.o. year old female who presents for colposcopy. No LMP recorded (lmp unknown). (Menstrual status: Oral Contraception). Pap History/Indication: 2021 NILM, HRHPV + 2023 NILM, HRHPV + (HPV 16) test: negative Colposcopy Performed by: Aura Bryan MD Authorized by: Aura Bryan MD Consent given by: patient Risks, alternatives, and questions discussed: yes Indication: Indication: HPV Procedure: Procedure: Colposcopy w/ endocervical curettage Under satisfactory analgesia the patient was prepped and draped in the dorsal lithotomy position: yes Arden speculum was placed in the vagina: yes Under colposcopic examination the transition zone was seen in entirety: yes Endocervix was curetted using a Kevorkian curette: yes Biopsy(s): yes Location: ECC Specimen to pathology: yes no Post-procedure: Findings comment: No changes noted Impression comment: No abnormalities seen Patient tolerance of procedure: Patient tolerated the procedure well with no immediate complications Assessment and Plan: Ángela Ibrahim is a 38 y.o. female who presents for colposcopy Will call patient with results and plan. Aura Bryan MD 11/27/2023 documented in this encounter Miscellaneous Notes * Addendum Note - Aura Bryan MD - 11/27/2023 10:30 AM CDTAddended by: AURA BRYAN on: 11/27/2023 11:26 AM Modules accepted: Orders documented in this encounter Plan of Treatment Not on file documented as of this encounter Procedures Procedure Name Priority Date/Time Associated Diagnosis Comments POCT HCG, URINE Routine 11/27/2023 10:59 AM CDT Encounter for biopsy VT COLPOSCOPY CERVIX ENDOCERVICAL CURETTAGE Routine 11/27/2023 10:30 AM CDT Encounter for biopsy HPV (human papilloma virus) infection documented in this encounter Results * Surgical pathology (11/27/2023 11:52 AM CDT) Tissue (Endocervical/va ginal) 11/27/2023 11:52 AM CDT 11/28/2023 7:33 AM CDT Narrative PATHOLOGY [facility] - 11/29/2023 4:02 PM CDT [address] ??[address] Tele: ?? Kisha Parks MD - Cloth Tester Quality Note to Patients: This report may contain [...] REPORT Patient Name: ??ÁNGELA IBRAHIM Address: ??[address] [place] [place] ??[address] Gender: ??F : ??1985 (Age: 38) Service: ?? Location: ??, ?? Hospital #: ??[id number] Patient Type: ??[facility] SPECIMEN Accession #: ? [id number] Taken: ? 11/27/2023 Received ? 11/28/2023 Reported: ? 11/29/2023 Physician(s): ? Aura Bryan MD DIAGNOSIS: Uterus, endocervix, curettage: ? - No endocervical epithelium demonstrated ? - Scant superficial squamous epithelium [facility]/11/29/2023 16:02 Examining Pathologist: Ranjith Srivastava M.D. Report Reviewed and Electronically Signed By ??Ranjith Srivastava M.D. SPECIMEN TYPE: A: ENDOCERVICAL CURETTAGE CLINICAL IMPRESSION AND HISTORY: Encounter for biopsy, HPV 16+ GROSS DESCRIPTION: Received in formalin labeled ÁNGELA IBRAHIM and endocervical curettage is a cervical [...] levels are reviewed. Clerical Data Follows A; [id number] REPORT IMAGES AND/OR SCANNED DOCUMENTS ONLY VIEWABLE IN PDF FORMAT The immunohistochemical test(s) cited in this report, if any, was developed and its performance characteristics determined by [facility] Pathology Department. ??It has not been cleared or approved by the U.S. Food and Drug Administration. ??The FDA has determined that such clearance or approval is not necessary. ??This test is used for clinical purposes. ??It should not be regarded as investigational or for research. ??[facility] Laboratory is certified under the [...] (4B5) (rabbit monoclonal primary antibody). us Aura Bryan MD LAB PATHOLOGY ORDERABLES F inal Result PATHOLOGY [facility] Laboratory Receiving [address] [place] [address] * POCT hCG, urine (11/27/2023 10:59 AM CDT) HCG, ur, POC Negative Negative Lot Number [id number] QC Backgroud Clear Acceptable QC Control Line Acceptable Urine 11/27/2023 10:5 9 AM CDT Aura Bryan MD POINT OF CARE TEST ORDERAB LES Final Result * VT COLPOSCOPY CERVIX ENDOCERVICAL CURETTAGE (11/27/2023 10:30 AM CDT) Narrative Aura Bryan MD - 11/27/2023 10:30 AM CDT Aura Bryan MD ? 11/27/2023 11:07 AM Colposcopy Performed by: Aura Bryan MD Authorized by: Aura Bryan MD ??Consent given by: patient Risks, alternatives, and questions discussed: yes Indication: ??Indication: ??HPV Procedure: ??Procedure: Colposcopy w/ endocervical curettage ?Under satisfactory analgesia the patient was prepped and draped in the dorsal lithotomy position: yes ?Arden speculum was placed in the vagina: yes ?Under colposcopic examination the transition zone was seen in entirety: yes ?Endocervix was curetted using a Kevorkian curette: yes ?Biopsy(s): yes ?Location: ??ECC ??Specimen to pathology: yes ??no Post-procedure: ??Findings comment: ??No changes noted ??Impression comment: ??No abnormalities seen ??Patient tolerance of procedure: ??Patient tolerated the procedure well with no immediate complications us Aura Bryan MD IN CLINIC/BEDSIDE ORDERABL ES Final Result documented in this encounter Visit Diagnoses Diagnosis Encounter for biopsy- Primary HPV (human papilloma virus) infection Encounter for biopsy HPV (human papilloma virus) infection documented in this encounter Discontinued Medications Medication Sig Discontinue Reason Start Date End Da te levonorgestreL-ethinyl estrad (Jolessa) 0.15 mg-30 mcg (91) per tabletIndications:Encounte r for surveillance of contraceptive pills Take 1 pill daily Therapy completed 11/08/2023 11/27/19 documented as of this encounter Historical Medications * This list may reflect changes made after this encounter. lamoTRIgine (LaMICtal) 100 mg tablet 11/20/2023 03/11/2024 Simpesse 0.15 mg-30 mcg (84)/10 mcg (7) tablets,dose pack,3 month Take 1 tablet by mouth daily 11/11/2023 04/09/2024 added in this encounter Care Teams Air Drier Relationship Specialty Start Date End Date Avery Hidalgo DO PCP - General 03/02/20 03/10/24 documented as of this encounter
--- OUTSIDE RECORDS SUMMARY | 2024-07-30 14:11 | XMS_ITS | Encounter Summary ---
Author Organization [facility] Healthcare Address [address] [place] [address] Care Team Providers Care Transmission Mechanic Name Role Phone Avery Hidalgo DO Primary Care Provider [phone] Encounter Details Date Type Department Care Team (Latest Contact Info) Description 11/08/2023 7:23 PM CDT - 11/08/2023 11:59 PM CDT Hospital Encounter [id number] [place] [address] Screening for cervical cancer; Screening for HPV (human papillomavirus) Discharge Disposition: Discharge to home or self [...] tablet (2 mg total) by mouth daily 03/11/20 24 clonazePAM (KlonoPIN) 0.5 mg tablet TAKE 1 TABLET BY MOUTH EVERY MORNING AND 2 TABLETS BY MOUTH EVERY NIGHT AT BEDTIME. COLLAB. MD Cindy KING 03/30/[address] (CYMBALTA) 60 mg capsule Take 1 capsule (60 mg total) by mouth daily 04/09/20 24 levonorgestreL-eth inyl estrad (Jolessa) 0.15 mg-30 mcg (91) per tabletIndications: Encounter for surveillance of contraceptive pills Take 1 pill daily 91 tablet 4 11/08/2023 11/27/19 24 omeprazole (PriLOSEC) 20 mg capsule Take 1 capsule (20 mg total) by mouth 03/11/20 24 traZODone (DESYREL) 50 mg tablet Take 2 tablets (100 mg total) by mouth nightly as needed for sleep 04/09/20 verapamiL (CALAN) 40 mg tablet Take 2 tablets (80 mg total) by mouth daily 04/09/20 24 documented as of this encounter Discharge Disposition Disposition Code Departure Means Destination Discharge to home or self care documented in this encounter Plan of Treatment Not on file documented as of this encounter Procedures Procedure Name Priority Date/Time Associated Diagnosis Comments THINPREP PROCESSING (MOLECULAR COMPONENT) Routine 11/08/2023 2:02 PM CDT Screening for cervical cancer Screening for HPV (human papillomavirus) HIGH RISK HPV DNA DETECTION WITH GENOTYPING Routine 11/08/2023 2:02 PM CDT Screening for cervical cancer Screening for HPV (human papillomavirus) PAP AND HIGH RISK HPV, REFLEX TO GENOTYPING Routine 11/08/2023 2:02 PM CDT Screening for cervical cancer Screening for HPV (human papillomavirus) documented in this encounter Results * ThinPrep processing (Molecular component) (11/08/2023 2:02 PM CDT) ThinPrep processing (Molecular component) Specimen received for processing. Endocervical 11/08/2023 2:02 PM CDT 11/08/2023 7:53 PM CDT us Aura Horne MD LAB BODY FLUIDS AND STOOLS ORDERABLES Final Result [facility] [address] Department [place] [place] [address] * Pap and High Risk HPV and Genotyping (Cytology Component) (11/08/2023 2:02 PM CDT) Thin prep (Pap test) 11/08/2023 2:02 PM CDT 11/09/2023 11:25 AM CDT Narrative PATHOLOGY [facility] - 11/15/2023 1:19 PM CDT EPIC results best viewed via link to PDF [address] ??[address] Tele: ?? Kisha Parks MD - Surgical Technician CYTOLOGY REPORT Note to Patients: This report may contain [...] can answer questions and explain the details. Patient Name: ??ÁNGELA IBRAHIM Address: ??[address] [place] [address] ??[id number] Gender: ??F : ??1985 (Age: 38) Service: ?? Location: ?? Hospital #: ??[id number] Patient Type: ??[facility] SPECIMEN Taken: ??11/08/2023 Reported: ??11/15/2023 Physician(s): ? Aura Horne MD FINAL DIAGNOSIS: SOURCE OF SPECIMEN ?- ThinPrep Pap and HPV w/ reflex Genotyping: STATEMENT OF ADEQUACY Source: ??Cervical/Endocervical ?- Satisfactory for interpretation ?- Endocervical/Transformation zone component absent or insufficient ?- Case screened using computer assisted imaging technology and manually re-screened by a franchise consultant. ? GENERAL CATEGORIZATION: ?- Negative for intraepithelial lesion or malignancy ? INTERPRETATION: ?- Shift in colton suggestive of Bacterial Vaginosis ? jxm/11/15/2023 13:19Carlos Medina M.S., CT (ASCP) DARIELA Cortes (ASCP)Report Reviewed and Electronically Signed By ??DARIELA Cortes (ASCP)Clerical Data Follow A; [id number] DIAGNOSIS COMMENT: Ancillary Testing: HPV Genotype 16 ? - ??Detected ? Reference Range: ? Not Detected HPV Genotype 18 ? - ??Not Detected ? Reference Range: ? Not Detected HPV High Risk Group (31, 33, 35, 39, 45, 51, 52, 56, 58, 59, 66 and 68) ? - ??Not Detected ? Reference Range: ? Not Detected This test was performed using the BELL 4800 CLINICAL DIAGNOSIS AND HISTORY Menstrual History: Unknown This specimen has been rescreened in accordance with the [facility] Laboratory Quality Management Program. REPORT IMAGES AND/OR SCANNED DOCUMENTS ONLY VIEWABLE IN PDF FORMAT The Pap test is a screening test used to aid in the detection of cervical cancer and its precursors. It should not be the sole means by which malignant and premalignant lesions are diagnosed. ??Both false negative and false positive results may occur. ??It also has poor sensitivity for the detection of endometrial lesions and should not be used to evaluate suspected endometrial abnormalities. ??For these reasons it is most important to obtain Pap tests at regular intervals, as recommended by your physician or nurse practitioner. us Aura Horne MD LAB CYTOLOGY ORDERABLES Fi nal Result PATHOLOGY [facility] Laboratory Receiving [address] [place], [place] [id number] * (ABNORMAL) High Risk HPV DNA Detection with Genotyping (Molecular component) (11/08/2023 2:02 PM CDT) HPV HR 16 Detected(A) Not Detected HPV HR 18 Not Detected Not Detected [facility] HPV HR Non 16/18 Not Detected Not Detected [facility] Comment: Interpretive Data Nucleic acid amplification [...] this test have been verified by the [facility]. Correlate with separately reported cytology results, as applicable. Interpretive data last revised 23 Endocervical 11/08/2023 2:02 PM CDT 11/08/2023 7:53 PM CDT Narrative [facility] - 11/10/2023 9:27 PM CDT Clinical history and diagnosis->screening Testing type->Screening Last menstrual period (date if known)->unknown us Aura Horne MD LAB BODY FLUIDS AND STOOLS ORDERABLES Final Result [facility] [address] Department [place] [address] documented in this encounter Visit Diagnoses Diagnosis Screening for cervical cancer Screening for malignant neoplasm of the cervix Screening for HPV (human papillomavirus) Special screening examination for human papillomavirus (HPV) documented in this encounter Care Teams Transmission Mechanic Relationship Specialty Start Date End Date Avery Hidalgo DO PCP - General 03/02/20 03/10/24 documented as of this encounter
--- OUTSIDE RECORDS SUMMARY | 2024-07-30 14:11 | XMS_ITS | Encounter Summary ---
Author Organization [facility] Healthcare Address [address] [place] [address] Care Team Providers Care Food Tester Name Role Phone Avery Hidalgo DO Primary Care Provider [phone] Encounter Details Date Type Department Care Team (Late st Contact Info) Description 07/28/2020 11:50 AM EGG SETTER Lab [id number] [place] [phone] Susana Valentine MD [address] [facility] [address] [place], [place] [id number] Fever, unspecified fever cause Discharge Disposition: Discharge to home or self care Social History Tobacco Use Types Packs/Day Years Used Date Smoking Tobacco: Never Assessed Comments Unknown Sex and Gender Information Value Date Recorded Sex Assigned at Not on file Legal Sex Female 1:55 PM CDT Gender Identity Not on file Sexual Orientation Not on file documented as of this encounter Discharge Disposition Disposition Code Departure Means Destination Discharge to home or self care documented in this encounter Plan of Treatment Not on file documented as of this encounter Procedures Procedure Name Priority Date/Time Associated Diagnosis Comments INFLUENZA A/B AND COVID-19 PCR Routine 07/28/2020 1:00 PM EGG SETTER Fever, unspecified fever cause documented in this encounter Results * Influenza A/B and COVID-19 PCR ([facility] ONLY) Nasopharyngeal (07/28/2020 1:00 PM EGG SETTER) COVID-19 RNA Not Detected [facility] Comment: Interpretive Data Testing performed by the [facility] Molecular Infectious Disease Laboratory. The 2019-Novel Coronavirus Assay (COVID-19) Real Time RT-PCR assay [...] last revised on 2019. Testing performed by: [facility], [address] [place] [address]., [address] Influenza A RNA Not Detected [facility] Comment:Testing performed by : [facility], [address] [place] [address], [address] Influenza B RNA Not Detected [facility] Comment: Interpretive Data Testing performed by the [facility] Molecular Infectious Disease Laboratory. This test is performed using the daniel Influenza A/B Assay. This is a real-time RT-PCR test for the qualitative detection of nucleic acid from Influenza A and Influenza B. This assay has been reviewed by the FDA for Emergency Use Authorization (EUA). The performance characteristics have been verified by the [facility] Laboratory. Results should be interpreted in combination with clinical context and a negative result does not rule out infection. ?? Interpretive data last revised 2020. Testing performed by: [facility], [address] [place]., [address] First COVID-19 test? No [facility] Comment:Testing performed by : 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, [address] [place] [address]., [address] status? Unknown [facility] Comment:Testing performed by : [facility], [address] [place] [address]., [address] Group care resident? No [facility] Comment:Testing performed by : [facility], [address] [place]., [address] Hospitalized? No [facility] Comment:Testing performed by : [facility], [address] [place]., [address] Is patient in ICU? No [facility] Comment:Testing performed by : [facility], [address] [place]., [address] Symptomatic as defined by CDC? Yes [facility] Comment:Testing performed by : [facility], [address] [facility], [address] Nasopharyngeal 07/28/2020 1: 00 PM EGG SETTER 07/28/2020 8:32 PM EGG SETTER Narrative [facility] - 07/29/2020 5:17 AM EGG SETTER Patient is employed by/enrolled at:->[employer] Date of symptom onset->07/27/20 Susana Valentine MD LAB MICROBIOLOGY - GENERAL ORDERABLES Final Result [facility] [address] Department of Laboratories [place], [place] [phone] documented in this encounter Visit Diagnoses Diagnosis Fever, unspecified fever cause documented in this encounter Additional Health Concerns Infection Onset Date Last Indicated Resolved Time COVID: Suspected 07/28/2020 07/28/2020 07/29/2020 5:19 AM EGG SETTER documented as of this encounter Care Teams Food Tester Relationship Specialty Start Date End Date Avery Hidalgo DO PCP - General 03/02/20 03/10/24 documented as of this encounter
--- OUTSIDE RECORDS SUMMARY | 2024-07-30 14:11 | XMS_ITS | Encounter Summary ---
Author Organization [facility] Healthcare Address [address] [place] [address] Care Team Providers Care Stencil Sprayer Name Role Phone Avery Hidalgo DO Primary Care Provider [phone] Reason for Visit * Reason Onset Date Comments Appointment 11/17/2023 Encounter Details Date Type Department Care Team (Late st Contact Info) Description 11/17/2023 Telephone [facility] [address] [phone] Aura Horne MD [address] [address] Appointment Social History Tobacco Use Types Packs/Day [...] encounter Miscellaneous Notes * Telephone Encounter - Chhaya Alvarez MA - 11/17/2023 3:15 PM CDT Called patient, no answer. Left voicemail for patient to return call to schedule an appointment fora colposcopy procedure in the office, per Dr. Horne. * Telephone Encounter - Chhaya Alvarez MA - 11/17/2023 3:14 PM CDT ----- Message from Aura Horne MD sent at 11/17/2023 1:10 PM CDT ----- Regarding: colposcopy Natalie, This patient needs to be scheduled for a colposcopy Please let me know if there are issues scheduling it. Thanks, Aura documented in this encounter Plan of Treatment Not on file documented as of this encounter Visit Diagnoses Not on filedocumented in this encounter Care Teams Stencil Sprayer Relationship Specialty Start Date End Date Avery Hidalgo DO PCP - General 03/02/20 03/10/24 documented as of this encounter
--- OUTSIDE RECORDS SUMMARY | 2024-07-30 14:11 | XMS_ITS | Encounter Summary ---
Author Organization [facility] Healthcare Address [address] [place] [address] Care Team Providers Care Car Sweeper Name Role Phone Avery Hidalgo DO Primary Care Provider [phone] Reason for Visit * Reason Comments Abdominal Pain Black or Bloody Stool Encounter Details Date Type Department Care Team (Late st Contact Info) Description 10/18/2023 5:17 PM DIRT BIKE MECHANIC - 10/18/2023 8:48 PM DIRT BIKE MECHANIC Emergency [facility] Department [address] [place] [address] Carlos Prescott MD [address] [place] [address] Diverticulosis (Primary Dx) Discharge Disposition: Discharge to home or self care Social History Tobacco Use Types Packs/Day Years Used Date Smoking Tobacco: Never Assessed Personal Safety Answer Date Recorded Have you [...] Sign Reading Time Taken Comments Blood Pressure 130/90 10/18/2023 8:45 PM DIRT BIKE MECHANIC Pulse 82 10/18/2023 8:45 PM DIRT BIKE MECHANIC Temperature 36.7 ??C (98 ??F) 10/18/2023 3:34 PM DIRT BIKE MECHANIC Respiratory Rate 15 10/18/2023 8:45 PM DIRT BIKE MECHANIC Oxygen Saturation 97% 10/18/2023 8:45 PM DIRT BIKE MECHANIC Inhaled Oxygen Concentration - - Weight 63.5 kg (140 lb) 10/18/2023 3:31 PM DIRT BIKE MECHANIC Height 154.9 cm (5' 1 ) 10/18/2023 3:31 PM DIRT BIKE MECHANIC Body Mass Index 26.45 10/18/2023 3:31 PM DIRT BIKE MECHANIC documented in this encounter Discharge Instructions * Attachments The following attachments cannot be sent through Care Everywhere. * Diverticulosis (Mongolian) documented in this encounter Medications at Time of Discharge amoxicillin-clavu lanate (AUGMENTIN) 875-125 mg per tablet Take 1 tablet by mouth every 12 (twelve) hours 14 tablet 10/18/2023 11/08/2023 levonorgestreL-et hinyl estrad (Jolessa) 0.15 mg-30 mcg (91) per tablet 06/23/2021 11/08/2023 documented as of this encounter Ordered Prescriptions Prescription Sig Dispense Quantity Refills Last Filled Start Date End Date amoxicillin-clavul anate (AUGMENTIN) 875-125 mg per tablet Take 1 tablet by mouth every 12 (twelve) hours 14 tablet 10/18/2023 11/08/2023 documented in this encounter Discharge Disposition Disposition Code Departure Means Destination Comment s Discharge to home or self care documented in this encounter ED Notes * Carlos Prescott MD - 10/18/2023 8:48 PM CST HPI Chief Complaint Patient presents with Abdominal Pain Black or Bloody Stool HPI 38-year-old female presenting to the emergency department for abdominal pain and bloody stools. Shereports left lower quadrant left upper quadrant abdominal pain with associated maroon stools. She has a family history colon cancer therefore last colonoscopy was 7 years ago. No blood thinner use. Patient History: There are no problems to display for this patient. No past medical history on file. No past surgical history on file. No family history on file. Social History Tobacco Use Smoking status: Not on file Smokeless tobacco: Not on file Substance and Sexual Activity Alcohol use: Not on file Drug use: Not on file Sexual activity: Not on file Social History Social History Narrative Not on file Review of Systems Review of Systems Constitutional: Negative for chills and fever. Respiratory: Negative for cough and shortness of breath. Cardiovascular: Negative for chest pain. Gastrointestinal: Positive for abdominal pain and blood in stool. Negative for diarrhea, nausea andvomiting. Endocrine: Negative for polydipsia and polyuria. Genitourinary: Negative for dysuria and hematuria. Musculoskeletal: Negative for arthralgias and myalgias. Skin: Negative for rash and wound. Allergic/Immunologic: Negative for immunocompromised state. Neurological: Negative for weakness, numbness and headaches. All other systems reviewed and are negative. Physical Exam ED Triage Vitals Temp Pulse Resp BP SpO2 10/18/23 1534 10/18/23 1534 10/18/23 1534 10/18/23 1534 10/18/23 1534 36.7 ??C (98 ??F) 90 18 125/87 100 % Temp src Heart Rate Source Patient Position BP Location FiO2 (%) 10/18/23 1534 -- 10/18/232044 -- -- Oral Sitting Height Height Method Weight Weight Method 10/18/23 1531 -- 10/18/23 1531 -- 1.549 m (5' 1 ) 63.5 kg (140 lb) Physical Exam Vitals and nursing note reviewed. Constitutional: Appearance: She is well-developed. HENT: Head: Normocephalic and atraumatic. Nose: Nose normal. Eyes: Extraocular Movements: Extraocular movements intact. Cardiovascular: Rate and Rhythm: Normal rate and regular rhythm. Pulmonary: Effort: Pulmonary effort is normal. No respiratory distress. Breath sounds: Normal breath sounds. No wheezing. Abdominal: General: There is no distension. Palpations: Abdomen is soft. Tenderness: There is no abdominal tenderness. Musculoskeletal: Cervical back: Normal range of motion. Skin: General: Skin is warm and dry. Neurological: Mental Status: She is alert and oriented to person, place, and time. MDM Medical Decision Making 38-year-old female presents to the emergency department for abdominal pain and blood in stool. Initial presentation no acute distress vital signs reviewed. On exam she has benign abdominal exam with no significant tenderness. Given her pain and blood in her stool concern for colitis versus diverticulitis less likely massive upper GI bleeding overall normal BUN hemoglobin. Sent for cross-sectionalimaging which shows findings of diverticulosis. I think given her discomfort is reasonable to startantibiotics presumed possible low level smoldering diverticulitis. 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 Discharged home stable condition. Amount and/or Complexity of Data Reviewed Radiology: ordered and independent interpretation performed. Risk Prescription drug management. Final diagnoses: Diverticulosis Carlos Prescott MD 10/18/23 2303 BIKE MECHANIC * Patricia Garcia RN - 10/18/2023 3:28 PM CST Patient arrives to ER with complaints of left sided abdominal pain starting 4 days ago. Patient notes dark red stools x2 starting today. Denies blood thinners. Denies lightheadedness/dizziness. BIKE MECHANIC documented in this encounter Plan of Treatment Not on file documented as of this encounter Procedures Procedure Name Priority Date/Time Associated Diagnosis Comments CT ABDOMEN PELVIS W CONTRAST ED 10/18/2023 7:48 PM DIRT BIKE MECHANIC URINALYSIS AND REFLEX TO MICROSCOPIC AND CULTURE STAT 10/18/2023 5:53 PM DIRT BIKE MECHANIC URINALYSIS, MICROSCOPIC ONLY STAT 10/18/2023 5:53 PM DIRT BIKE MECHANIC POCT HCG, URINE Routine 10/18/2023 5:44 PM DIRT BIKE MECHANIC EGFR STAT 10/18/2023 3:59 PM DIRT BIKE MECHANIC DIFFERENTIAL AUTO STAT 10/18/2023 3:5 9 PM DIRT BIKE MECHANIC CBC WITH AUTO DIFFERENTIAL STAT 10/18/2023 3:59 PM DIRT BIKE MECHANIC LIPASE STAT 10/18/2023 3:59 PM DIRT BIKE MECHANIC COMPREHENSIVE METABOLIC PANEL STAT 10/18/2023 3:59 PM DIRT BIKE MECHANIC documented in this encounter Results * CT Abdomen Pelvis W Contrast (10/18/2023 7:48 PM DIRT BIKE MECHANIC) Anatomical Region Laterality Modality Body N/A Computed Tomogra phy 10/18/2023 7:36 PM DIRT BIKE MECHANIC Impressions 10/19/2023 6:26 AM DIRT BIKE MECHANIC 1. ??Mild bladder wall thickening may indicate bladder infection. Clinical and lab correlation recommended. 2. ??Diverticulosis but no diverticulitis. 3. ??Additional details are above.. Electronically signed by: Fan Goldberg M.D. Narrative 10/19/2023 6:[address] abdomen and pelvis with contrast HISTORY: Left lower quadrant abdomen pain. TECHNIQUE: CT abdomen and pelvis was done with contrast 70mL Optiray 350 intravenously. FINDINGS: There are no prior studies for correlation. Lung bases are clear. There is no acute fracture or acute bone destruction. The size of the spleen is normal. The left kidney appears normal. The left adrenal gland appears normal. The right kidney appears normal. The right adrenal gland appears normal. There is no evidence of pancreatitis or significant pancreatic mass. The liver appears normal. ??No inflammation around the gallbladder. Could not exclude gallstones. There is no evidence of abdominal aortic aneurysm. There is no abnormal adenopathy seen. There is no significant ascites. There is no evidence of bowel obstruction. ??There is no significant abnormal bowel wall thickening. Mild diverticulosis but no diverticulitis. Tiny umbilical hernia contains only fat. Cystic ovarian lesions bilaterally largest on the left of 1.4 cm. Mild bladder wall thickening. Procedure Note Fan Goldberg MD - 10/19/2023 CT abdomen and pelvis with contrast HISTORY: Left lower quadrant abdomen pain. TECHNIQUE: CT abdomen and pelvis was done with contrast 70mL Optiray 350 intravenously. FINDINGS: There are no prior studies for correlation. Lung bases are clear. There is no acute fracture or acute bone destruction. The size of the spleen is normal. The left kidney appears normal. The left adrenal gland appears normal. The right kidney appears normal. The right adrenal gland appears normal. There is no evidence of pancreatitis or significant pancreatic mass. The liver appears normal. No inflammation around the gallbladder. Could not exclude gallstones. There is no evidence of abdominal aortic aneurysm. There is no abnormal adenopathy seen. There is no significant ascites. There is no evidence of bowel obstruction. There is no significant abnormal bowel wall thickening. Mild diverticulosis but no diverticulitis. Tiny umbilical hernia contains only fat. Cystic ovarian lesions bilaterally largest on the left of 1.4 cm. Mild bladder wall thickening. IMPRESSION: 1. Mild bladder wall thickening may indicate bladder infection. Clinical and lab correlation recommended. 2. Diverticulosis but no diverticulitis. 3. Additional details are above.. Electronically signed by: Fan Goldberg M.D. Carlos Prescott MD IMG CT PROCEDURES Final Result * (ABNORMAL) Urinalysis, microscopic only (10/18/2023 5:53 PM DIRT BIKE MECHANIC) WBC, ur 0-5 0 - 5 /HPF RBC, ur 0-2 0 - 2 /HPF [facility] Epithelial cells, squamous, ur 1-5 0 - 5 /HPF [facility] Mucous, ur Present(A) [facility] Culture Reflex Comment Reflex conditions for urine culture (WBC >10) not met. [facility] Urine 10/18/2023 5:53 PM DIRT BIKE MECHANIC 10/18/2023 5:57 PM DIRT BIKE MECHANIC Ravi Isaac DO LAB URINE ORDERABLES Amanda pierce Result [facility] [address] Department [place] [address] * (ABNORMAL) Urinalysis reflex to microscopic and culture Urine (10/18/2023 5:53 PM DIRT BIKE MECHANIC) Color, ur Yellow Yellow Clarity, ur Clear Clear [facility] Specific gravity, ur 1.015 1.003 - 1.030 [facility] pH, urine 6.5 [facility] Comment: Interpretive Data ? Urine pH is affected by diet, medications, systemic acid-base disturbances, and renal tubular function. ??pH may affect urinary stone formation. ??For example, urine pH below 6.0 may help reduce the tendency for calcium phosphate stones and pH greater than 6.0 may reduce the tendency for uric acid stone formation. Source: [facility] Current Interpretive Data was last revised on 2017 Protein, ur ql Negative Negative [facility] Glucose, ur ql Negative Negative [facility] Ketones, ur Negative Negative [facility] Bilirubin, ur Negative Negative [facility] Blood, ur 1+(A) Negative [facility] Urobilinogen, ur <2.0 <2.0 mg/dL [facility] Nitrite, ur Negative Negative [facility] Leukocyte esterase, ur Negative Negative [facility] UA reflex comment Reflex to microscopic UA will be performed. [facility] Urine 10/18/2023 5:53 PM DIRT BIKE MECHANIC 10/18/2023 5:53 PM DIRT BIKE MECHANIC Ravi Isaac DO LAB MICROBIOLOGY - GENERA L ORDERABLES Final Result [facility] [address] Department [place] [address] * POCT hCG, urine (10/18/2023 5:44 PM DIRT BIKE MECHANIC) Pathologist [facility] HCG, ur, POC Negative Negative Lot Number [id number] QC Backgroud Clear Acceptable QC Control Line Acceptable Urine 10/18/2023 5:44 PM DIRT BIKE MECHANIC Ravi Isaac DO POINT OF CARE TEST ORDERA BLES Final Result * eGFR (10/18/2023 3:59 PM DIRT BIKE MECHANIC) Pathologist [facility] eGFR 113 mL/min/1. 73 m2 Comment: Interpretive Data Reference [...] interpretive data was last reviewed 2021. Blood 10/18/2023 3:59 PM DIRT BIKE MECHANIC 10/18/2023 4:03 PM DIRT BIKE MECHANIC Ravi Isaac DO LAB BLOOD ORDERABLES Amanda pierce Result [facility] [address] Department [place] [address] * (ABNORMAL) Differential, auto (10/18/2023 3:59 PM DIRT BIKE MECHANIC) Neutrophil abs 5.8 1.5 - 6.5 K/cumm Imm gran abs 0.0 0.0 - 0.1 K/cumm [facility] Lymphocyte abs 3.8(H) 0.8 - 3.3 K/cumm [facility] Monocyte abs 0.8 0.2 - 0.8 K/cumm [facility] Eosinophil abs 0.2 0.0 - 0.5 K/cumm [facility] Basophil abs 0.1 0.0 - 0.1 K/cumm [facility] Neutrophil pct 53.8 % [facility] Comment: Interpretive Data Percent cell count reference ranges are not reported, since discordance with absolute values may lead to misinterpretation of CBC data. Current Interpretive Data was last revised on 2017. Imm gran pct 0.3 % [facility] Comment: Interpretive Data Percent cell count reference ranges are not reported, since discordance with absolute values may lead to misinterpretation of CBC data. Current Interpretive Data was last revised on 2017. Lymphocyte pct 35.8 % [facility] Comment: Interpretive Data Percent cell count reference ranges are not reported, since discordance with absolute values may lead to misinterpretation of CBC data. Current Interpretive Data was last revised on 2017. Monocyte pct 7.8 % [facility] Comment: Interpretive Data Percent cell count reference ranges are not reported, since discordance with absolute values may lead to misinterpretation of CBC data. Current Interpretive Data was last revised on 2017. Eosinophil pct 1.8 % [facility] Comment: Interpretive Data Percent cell count reference ranges are not reported, since discordance with absolute values may lead to misinterpretation of CBC data. Current Interpretive Data was last revised on 2017. Basophil pct 0.5 % [facility] Comment: Interpretive Data Percent cell count reference ranges are not reported, since discordance with absolute values may lead to misinterpretation of CBC data. Current Interpretive Data was last revised on 2017. Blood 10/18/2023 3:59 PM DIRT BIKE MECHANIC 10/18/2023 4:04 PM DIRT BIKE MECHANIC Ravi Isaac DO LAB BLOOD ORDERABLES Amanda l Result Performing Organization Address City/[facility]/ZIP Co de Phone Number [facility] [address] Department [employer] [place] [address] * Lipase (10/18/2023 3:59 PM DIRT BIKE MECHANIC) Lipase 23 10 - 99 Units/L Blood (Blood, Venous) 10/18/2023 3:59 PM DIRT BIKE MECHANIC 10/18/2023 4:03 PM DIRT BIKE MECHANIC Ravi Isaac DO LAB BLOOD ORDERABLES Amanda l Result Performing Organization Address City/[facility]/ZIP Co de Phone Number [facility] [address] Department of [employer] [place] [address] * (ABNORMAL) Comprehensive metabolic panel (10/18/2023 3:59 PM DIRT BIKE MECHANIC) [facility] Sodium 136 135 - 145 mmol/L Potassium, pl 3.6 3.3 - 4.9 mmol/L [facility] Chloride 102 97 - 110 mmol/L [facility] CO2 22 22 - 32 mmol/L [facility] Anion gap 12 2 - 15 mmol/L [facility] BUN 10 6 - 25 mg/dL [facility] Creatinine 0.70 0.60 - 1.10 mg/dL [facility] Glucose 93 70 - 199 mg/dL [facility] Comment: Interpretive Data Fasting glucose >/= [...] 2022. Calcium 9.4 8.5 - 10.3 mg/dL [facility] Bilirubin, total 0.3 0.1 - 1.2 mg/dL [facility] Protein, pl 7.1 6.5 - 8.5 g/dL [facility] Albumin 4.4 3.5 - 5.0 g/dL [facility] Alk phos 101 40 - 130 Units/L [facility] ALT 80(H) 7 - 45 Units/L [facility] AST 50(H) 10 - 45 Units/L [facility] Blood 10/18/2023 3:59 PM DIRT BIKE MECHANIC 10/18/2023 4:03 PM DIRT BIKE MECHANIC us Ravi Isaac DO LAB BLOOD ORDERABLES Amanda pierce Result [facility] [address] Department [place] [address] * (ABNORMAL) CBC with auto differential (10/18/2023 3:59 PM DIRT BIKE MECHANIC) WBC 10.7(H) 3.8 - 9.9 K/cumm Hgb 13.1 11.9 - 15.5 g/dL [facility] Hct 40.3 35.6 - 45.5 % [facility] Plt 339 150 - 400 K/cumm [facility] MPV 10.9 9.1 - 12.3 fL [facility] RBC 4.58 3.90 - 5.20 M/cumm [facility] MCV 88.0 81.3 - 96.4 fL [facility] MCH 28.6 27.1 - 33.3 pg [facility] MCHC 32.5 32.3 - 35.7 g/dL [facility] RDW CV 13.2 11.1 - 14.9 % [facility] RDW SD 42.7 35.7 - 48.1 fL [facility] NRBC abs 0.00 0.00 - 0.01 K/cumm [facility] Blood (Blood, Venous) 10/18/2023 3:59 PM DIRT BIKE MECHANIC 10/18/2023 4:04 PM DIRT BIKE MECHANIC us Ravi Isaac DO LAB BLOOD ORDERABLES Amanda pierce Result [facility] [address] Department [place] [address] documented in this encounter Visit Diagnoses Diagnosis Diverticulosis- Primary Diverticulosis of colon (without mention of hemorrhage) documented in this encounter Administered Medications Inactive Administered Medications - up to 3 most recent administrations Medication Order MAR Action Action Date Dose Rate Site ioversoL (OPTIRAY 350) syringe 75 mL 75 mL, intravenous, Once in imaging, contrast, Starting on Mon10/18/23 at 1934, For 1 dose Contrast Given 10/18/2023 7:40 PM DIRT BIKE MECHANIC 70 mL documented in this encounter Active and Recently Administered Medications Times are shown in DIRT BIKE MECHANIC. PRN Medication Order 10/16/2023 10/17/2023 10/18/2023 ioversoL (OPTIRAY 350) syringe 75 mL (COMPLETED) 75 mL, intravenous, Once in imaging, contrast, Starting on Mon10/18/23 at 1934, For 1 dose 1940 (Contrast Given - Provider: Jyoti Rico, RT) documented in this encounter Orders Medications Ordered That Ramy ht Not Have Been Administered Count Last Ordered Date First Ordered Date ioversoL (OPTIRAY 350) syringe 75 mL 1 01/2024 Nursing Count Last Ordered Date First Orde red Date MISCELLANEOUS NURSING CARE ORDER (SPECIFY) 1 10/18/2023 IV Count Last Ordered Date First Orde red Date SALINE LOCK IV 1 10/18/2023 documented in this encounter Care Teams Car Sweeper Relationship Specialty Start Date End Date Avery Hidalgo DO PCP - General 03/02/20 03/10/24 documented as of this encounter
--- OUTSIDE RECORDS SUMMARY | 2024-07-30 14:11 | XMS_ITS | Encounter Summary ---
Author Organization [facility] Healthcare Address [address] [place] [address] Care Team Providers Care Screen Printing Press Operator Name Role Phone Avery Hidalgo DO Primary Care Provider [phone] Encounter Details Date Type Department Care Team (Late st Contact Info) Description 09/12/2023 Orders Only [facility] Healthcare Occupatiuonal Health [address] [facility] [address] (Third Floor) [place] [address] Paulo Nguyen MD [address] [place], [place] [id number] Pre-employment health screening examination (Primary Dx) Social History Tobacco Use Types Packs/Day Years Used Date Smoking Tobacco: Never Assessed Personal Safety Answer Date Recorded Getting School Help Needed Not on file 09/01 Comments Unknown Sex and Gender Information Value Date Recorded Sex Assigned at Not on file Legal Sex Female 1:55 PM CDT Gender Identity Not on file Sexual Orientation Not on file documented as of this encounter Plan of Treatment Not on file documented as of this encounter Results * T-SPOT.TB Blood (09/12/2023 3:16 PM MANAGER EMERGENCY DEPARTMENT) [facility] T-SPOT.TB Negative Mik [facility] Comment: Normal Value: Negative A negative test result does not exclude the possibility of exposure to or infection with Mycobacterium tuberculosis (M. tuberculosis). ??Patients with recent exposure to TB infected individuals exhibiting a negative T-SPOT.TB result should be considered for retesting within 6 weeks or if other relevant clinical symptoms indicate. ??Results from T-SPOT.TB testing must be used in conjunction with each individual's epidemiological history, current medical status, and results of other diagnostic evaluations. ??The T-SPOT.TB test is qualitative and results are reported as positive, borderline or negative, given that the test controls perform as expected. In line with the Centers for Disease Control and Prevention's 2010 recommendation to report quantitative measurements alongside the qualitative result, the laboratory provides spot counts for informational purposes only. ??The T-SPOT.TB test should not be interpreted as a quantitative test. T-SPOT.TB Panel A Spot Count 2 [facility] T-SPOT.TB Panel B Spot Count 2 [facility] T-SPOT.TB Negative Control Passed [facility] T-SPOT.TB Positive Control Passed [facility] Comment: Test Performed at: [facility] [employer] [place], [place] ??[phone] ? PRIETO MARSHALL,PHD Blood 09/12/2023 3:1 6 PM MANAGER EMERGENCY DEPARTMENT 09/12/2023 5:10 PM MANAGER EMERGENCY DEPARTMENT Narrative [facility] - 09/14/2023 1:53 PM MANAGER EMERGENCY DEPARTMENT Patient is employed by/enrolled at:->[employer] Paulo Nguyen MD LAB MICROBIOLOGY - GENERAL OR DERABLES Final Result [facility] Department [place] [address] documented in this encounter Visit Diagnoses Diagnosis Pre-employment health screening examination- Primary Health examination of defined subpopulation Pre-employment health screening examination Health examination of defined subpopulation documented in this encounter Care Teams Screen Printing Press Operator Relationship Specialty Start Date End Date Avery Hidalgo DO PCP - General 03/02/20 03/10/24 documented as of this encounter
--- OUTSIDE RECORDS SUMMARY | 2024-07-30 14:11 | XMS_ITS | Encounter Summary ---
Author Organization [facility] Healthcare Address [address] [place] [address] Care Team Providers Care Glass Selector Name Role Phone Avery Hidalgo DO Primary Care Provider [phone] Reason for Visit * Reason Onset Date Comments COVID-19 EVALUATION 07/28/2020 Encounter Details Date Type Department Care Team (Late st Contact Info) Description 07/28/2020 Telephone [facility] [place] [id number] (Third Floor) [place] [address] Ondina Skinner RN COVID-19 EVALUATION Social History Tobacco Use Types Packs/Day Years Used Date Smoking Tobacco: Never Assessed Comments Unknown Sex and Gender Information Value Date Recorded Sex Assigned at Not on file Legal Sex Female 1:55 PM CDT Gender Identity Not on file Sexual Orientation Not on file documented as of this encounter Miscellaneous Notes * Telephone Encounter - Ondina Skinner RN - 07/28/2020 9:13 AM CST Employee COVID-19 Screening 02/25/2020 07/28/2020 Email: [email or web address] Employee/Student ID# [id number] Are you an employee or student? - Employee Employer: [employer] Employee Facility: [facility] Does your job primarily involve providing care for bone marrow transplant patients? 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 On-site On-site Have you been tested for Covid-19 previously? - Yes Have you ever had a positive COVID-19 swab or saliva test? - Yes What was the date of your most recent positive test? - 02/25/2020 Have you had a known, specific COVID exposure within the last 14 days? Yes No Have you contacted your Occupational Health office or Student Health Services? No - Date of exposure: 02/24/2020 - Name of the COVID-19 positive person to whom you were exposed: Multiple patients through the ER - Was the person to whom you were exposed wearing a mask/face covering? No - Patient Mask Comment Not all of them - Date of the COVID-19 test for the person to whom you were exposed: 02/24/2020 - Test result of the person to whom you were exposed: Positive - What PPE was employee wearing? N95;Gown;Gloves - Employee PPE Comment glasses - Description of exposure: Physical exam - Employee Symptoms: Yes Yes Date of employee symptom onset: 02/25/2020 07/27/2020 Description of Symptoms: Cough;Fever;Trouble Breathing;Sore Throat;Muscle Aches;Joint Aches;Other Fever;Other Temperature: 100.7 100.9 Other Symptoms: nausea, fatigue fatigue Did you have symptoms at work? Yes No Date symptoms started: 02/25/2020 - Date Symptoms Started Comment 4 AM - Date last worked: 02/25/2020 07/25/2020 Do you currently live with, or have ongoing contact with, someone known or suspected to have COVID-19? No No Exposure Risk (See Exposure Guide): Medium No known or low risk exposure Assessment: Symptomatic, occupational exposure Symptomatic, unknown exposure Plan: (A) Stay home and test (A) Stay home and test for symptoms Testing Site Location: [facility] Script A0 (Stay home and test) for symptomatic employees with no known or low risk exposure Given your symptoms, you should not come to work and will be referred for testing for COVID and Influenza A and B. ??? Please go to the employee testing site at [facility]. ??? You will be tested for both COVID-19 and Influenza ??? While you are awaiting testing and results, you must remain off work. ??? While waiting for results, home quarantine guidance still applies. You should isolate yourself at home, avoid contact with any household members as much as possible, and stay in your home withoutleaving except for medical care. If your symptoms worsen, please call back or call 911 - let your providers, ER or EMS know that you are being tested for COVID-19. ??? Once your results are back, you will receive further instruction from Occupational Health. Don't return to work until you hear from [facility]. Occupational Health will notify you and your national facilities manager when you can return to work. ??? Should your test result positive, [facility] will work with you to identify any close contacts you may have had at work. [facility] will then alert your work contacts directly; you do not have to. Your lead section supervisor should consult with [facility] if they have any questions and before any communication with coworkers about a positive test. [facility] will help ensure that coworkers potentially at risk are notified and given appropriate advice without unnecessary disclosure of personal health information. ??? We will send you an email with self-quarantine instructions (see [facility] Guidance for At-Home Isolation: Employees). ??? You must follow any additional isolation or quarantine instructions provided to you from federal, state or local public health authorities. ??? You should let your lead section supervisor know that you will not be coming to work. Although the Call Center will email your lead section supervisor to confirm that you have been instructed not to come to work, it is still your responsibility to notify your lead section supervisor as you would for any other work absence. You should receive an email from the call center with these instructions. The email will come from [email or web address]; if you do not receive it, please check to see if your email seismic prospecting observer helper has automatically routed it to [email or web address]. IVIST POLITICAL HISTORY documented in this encounter Plan of Treatment Not on file documented as of this encounter Results * Influenza A/B and COVID-19 PCR ([facility] ONLY) Nasopharyngeal (07/28/2020 1:00 PM ARCHIVIST POLITICAL HISTORY) COVID-19 RNA Not Detected [facility] Comment: Interpretive Data Testing performed by the [facility] Molecular Infectious Disease Laboratory. The 2018-Novel [...] last revised on 2019. Testing performed by: [facility], [address] [place] [address]., [address] Influenza A RNA Not Detected [facility] Comment:Testing performed by : [facility], [address] [place] [address], [address] Influenza B RNA Not Detected [facility] Comment: Interpretive Data Testing performed by the [facility] Molecular Infectious Disease Laboratory. This test is performed using the daniel Influenza A/B Assay. This is a real-time RT-PCR test for the qualitative detection of nucleic acid from Influenza A and Influenza B. This assay has been reviewed by the FDA for Emergency Use Authorization (EUA). The performance characteristics have been verified by the [facility]. Results should be interpreted in combination with clinical context and a negative result does not rule out infection. ?? Interpretive data last revised 2020. Testing performed by: [facility], [address] [place]., [address] First COVID-19 test? No [facility] Comment:Testing performed by : [facility], [address] [place] [address]., [address] Employeed in healthcare? Yes [facility] Comment:Testing performed by : [facility], [address] [place]., [address] status? Unknown [facility] Comment:Testing performed by : [facility], [address] [place] [address] [place]., [address] Group care resident? No [facility] Comment:Testing performed by : [facility], [address] [place]., [address] Hospitalized? No [facility] Comment:Testing performed by : [facility], [address] [facility], [address] Is patient in ICU? No [facility] Comment:Testing performed by : [facility], [address] [facility] [place], [address] Symptomatic as defined by CDC? Yes [facility] Comment:Testing performed by : [facility], [address] [facility] [place], [address] Nasopharyngeal 07/28/2020 1: 00 PM ARCHIVIST POLITICAL HISTORY 07/28/2020 8:32 PM ARCHIVIST POLITICAL HISTORY Narrative [facility] - 07/29/2020 5:17 AM ARCHIVIST POLITICAL HISTORY Patient is employed by/enrolled at:->[employer] Date of symptom onset->07/27/20 us Susana Valentine MD LAB MICROBIOLOGY - GENERAL ORDERABLES Final Result [facility] [address] Department [place] [address] documented in this encounter Visit Diagnoses Diagnosis Fever, unspecified fever cause- Primary Fever, unspecified fever cause documented in this encounter Additional Health Concerns Infection Onset Date Last Indicated Resolved Time COVID: Suspected 07/28/2020 07/28/2020 07/29/2020 5:19 AM ARCHIVIST POLITICAL HISTORY documented as of this encounter Care Teams Glass Selector Relationship Specialty Start Date End Date Avery Hidalgo DO PCP - General 03/02/20 03/10/24 documented as of this encounter
--- OUTSIDE RECORDS SUMMARY | 2024-07-30 14:11 | XMS_ITS | Encounter Summary ---
Author Organization [facility] Healthcare Address [address] [place] [address] Care Team Providers Care Shipyard Painter Name Role Phone Avery Hidalgo DO Primary Care Provider [phone] Encounter Details Date Type Department Care Team (Late st Contact Info) Description 09/12/2023 3:45 PM DIRECTOR OF PROGRAM MANAGEMENT Lab [facility] Advanced Medicine [facility] Advanced Medicine ([facility]) [address] [place] [phone] Pre-employment health screening examination Social History Tobacco Use Types Packs/Day Years [...] Procedure Name Priority Date/Time Associated Diagnosis Comments T-SPOT.TB Routine 09/12/2023 3:16 PM DIRECTOR OF PROGRAM MANAGEMENT Pre-employment health screening examination documented in this encounter Results * T-SPOT.TB Blood (09/12/2023 3:16 PM DIRECTOR OF PROGRAM MANAGEMENT) T-SPOT.TB Negative Mik [facility] Comment: Normal Value: Negative A negative test [...] test. T-SPOT.TB Panel A Spot Count 2 [facility] T-SPOT.TB Panel B Spot Count 2 [facility] T-SPOT.TB Negative Control Passed [facility] T-SPOT.TB Positive Control Passed [facility] Comment: Test Performed at: [facility] [address] [place] [address] ??[id number] ? PRIETO MARSHALL,PHD Blood 09/12/2023 3:16 PM DIRECTOR OF PROGRAM MANAGEMENT 09/12/2023 5:10 PM DIRECTOR OF PROGRAM MANAGEMENT Narrative [facility] - 09/14/2023 1:53 PM DIRECTOR OF PROGRAM MANAGEMENT Patient is employed by/enrolled at:->[employer] Paulo Nguyen MD LAB MICROBIOLOGY - GENERAL OR DERABLES Final Result [facility] Department [place] [address] documented in this encounter Visit Diagnoses Diagnosis Pre-employment health screening examination Health examination of defined subpopulation documented in this encounter Care Teams Shipyard Painter Relationship Specialty Start Date End Date Avery Hidalgo DO PCP - General 03/02/20 03/10/24 documented as of this encounter
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
--- OUTSIDE RECORDS SUMMARY | 2024-07-30 14:11 | XMS_ITS | Encounter Summary ---
Author Organization [facility] Address [address] [place] [address] Phone Care Team Providers Care Laborer Stores Name Role Phone Avery Hidalgo DO Primary Care Provider [phone] Reason for Visit * Reason Onset Date Comments IOV request 10/16/2023 Encounter Details Date Type Department Care Team (Late st Contact Info) Description 10/16/2023 Telephone [facility] Cardiology [address] [facility] Advanced Medicine 8th [place] [address] [place] [phone] Paul Fine MD [address] [place] [address] IOV request Social History Tobacco Use Types Packs/Day Years Used Date Smoking Tobacco: Never Assessed Personal Safety Answer Date Recorded Have you ever been in or are you currently in a harmful physical or emotional relationship or is someone making you feel afraid or unsafe? Denies 10/18/2023 Comments Unknown Sex and Gender Information Value Date Recorded Sex Assigned at Not on file Legal Sex Female 1:55 PM CDT Gender Identity Not on file Sexual Orientation Not on file documented as of this encounter Miscellaneous Notes * Telephone Encounter - Beny Carrasquillo - 10/24/2023 10:06 AM CDT INSURANCE ADDED * Telephone Encounter - Alicia Persaud - 10/19/2023 9:58 AM TESTER [employer] LMOR @ [phone] to get [facility] Cign[employer] insurance card [employer] * Telephone Encounter - Alicia Persaud - 10/18/2023 7:45 AM [employer] I also sent MyChart Msg to pt yesterday thru MyChart. Haven't gotten card yet. [employer] * Telephone Encounter - Alicia Persaud - 10/17/2023 11:47 AM [employer] Pt is sending copy of her [facility] Cign[employer] card thru MyChart Msg [employer] * Telephone Encounter - Alicia Persaud - 10/17/2023 10:28 AM [employer] Okay to schedule pt to see Dr. Fine for SVT? 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 [employer] * Telephone Encounter - Alicia Persaud - 10/17/2023 10:25 AM TE[employer] Diagnosis/Reason for Appointment: SVT Referring Physician: Self Ref Ph: If Referring MD is not PCP, list specialty: Triage Questions Yes No Who/Where/When/Notes Have you ever been diagnosed with cancer, or undergone cancer treatments? [] [x] If 'Yes', Schedulefirst available with Cardio-Oncology If yes where were you treated? Have you ever seen a Low Pressure Kettle Operator in an office setting? [x] [] Dr. Ruben Palumbo (now out of network) IF SCHEDULING PATIENT WITH [facility] Have you had a baby in the last year or are you ? [] [] Have you had heart or blood pressure problems during a previous ? [] [] Dr. Buffy Villaseñor Patients only: Are you a hemodialysis or peritoneal dialysis patient? (If yes then patient must be referred from another MD, DO NOT SCHEDULE) [] [] Patient History Questions Yes No Where/When/Notes Have you EVER been hospitalized for ANY cardiac issue? [x] [] Summer/fall 2022 @ [facility] ER Have you ever had any cardiac testing, imaging, or procedures? (Testing - echo, EKG, stress) (Imaging - Cardiac MRI, CT or calcium scoring) (Procedure - Ablation, Cardioversion, CABG) [x] [] EKG several mo's ago thru Dr. Palumbo. Echo last summer thru Dr. Palumbo Have you ever had a sleep study? [] [x] Do you have a device? If yes what type? (Pacemaker, Defibrillator, Implanted Loop Recorder) [] [x] If yes, where and when was device put in? Granulator Tender? ([employer], [employer], [employer]) Appointment Date: Provider: Location: [] Confirm appt date, time, provider and location. [] Advise pt to arrive 15-20 min early. [] Advise patient to bring medications/list, photo ID and insurance card [] Advise of New Patient Packet being mailed to them. [employer] * Telephone Encounter - Joyce Hernandez - 10/16/2023 12:22 PM CST Babatunde Pt would like to schedule an appt with Dr. Fine. 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 [employer] documented in this encounter Plan of Treatment Not on file documented as of this encounter Visit Diagnoses Not on filedocumented in this encounter Care Teams Laborer Stores Relationship Specialty Start Date End Date Avery Hidalgo DO PCP - General 03/02/20 03/10/24 documented as of this encounter
--- OUTSIDE RECORDS SUMMARY | 2024-07-30 14:15 | XMS_ITS | Clinical Summary ---
Author Organization [facility] Address [address] [place] [address] Care Team Providers Care Environmental Field Professional Name Role Phone Pcp, Verify Primary Care Provider Unavailabl e Social History Tobacco Use Types Packs/Day Years Used Date Smoking Tobacco: Never Assessed Inadequate Housing Answer Date Recorded Social Determinants: Housing (Overall Score Help er) 0 12/20/2019 Sex and Gender Information Value Date Recorded Sex Assigned at Not on file Gender Identity Not on file Sexual Orientation Not on file Plan of Treatment Health Maintenance Due Date Last Done Comments Depression Screening 1996 Varicella Vaccine (1 of 2 - 13+ 2-dose series) 1997 DTaP/Tdap/Td Vaccine (1 - Tdap) 2003 Hepatitis B Vaccine (1 of 3 - 19+ 3-dose series) 2003 Breast Cancer Screening 2024 COVID-19 Vaccine ( - 2023-2 5 season) 2024 Influenza Vaccine (#1) 2024 HPV Vaccine Aged Out No longer eligi ble based on patient's age to complete this topic Meningococcal Vaccine Aged Out No cosmo jessica eligible based on patient's age to complete this topic Pneumococcal Vaccine 0-64 Aged Out No longer eligible based on patient's age to complete this topic Care Teams Environmental Field Professional Relationship Specialty Start Date End Date Pcp, Verify PCP - General 08/19/21
--- OUTSIDE RECORDS SUMMARY | 2024-07-30 14:16 | XMS_ITS | Encounter Summary ---
Author Organization [facility] Address [address] [place] [id number] Care Team Providers Care Drug Abuse Resistance Education Officer Name Role Phone Unavailable Primary Care Provider Unavailabl e Encounter Details Date Type Department Care Team ([facility] st Contact Info) Description 01/11/2020 Patient Self-Triage [facility] [address] [place] [address] Social History Tobacco Use Types Packs/Day Years [...]
--- OUTSIDE RECORDS SUMMARY | 2024-07-30 14:16 | XMS_ITS | Referral Summary ---
Author Organization [facility] Address [address] [place] [address] Care Team Providers Care Build Technician Name Role Phone Pcp, Verify Primary Care Provider Unavailabl e Social History Tobacco Use Types Packs/Day Years Used Date Smoking Tobacco: Never Assessed Inadequate Housing Answer Date Recorded Social Determinants: Housing (Overall Score Help er) 0 12/20/2019 Sex and Gender Information Value Date Recorded Sex Assigned at Not on file Gender Identity Not on file Sexual Orientation Not on file Plan of Treatment Not on file Care Teams Build Technician Relationship Specialty Start Date End Date Pcp, Verify PCP - General 08/19/21
--- OUTSIDE RECORDS SUMMARY | 2024-07-30 14:16 | XMS_ITS | Clinical Summary ---
Author Organization [facility] Address [address] [place] [address] Care Team Providers Care Chef French Name Role Phone Geo Duff MD Primary Care Provider [phone] Allergies Active Allergy Reactions Criticality Noted Date Comments Latex Hives,Rash,Swelling High 07/08/2024 Metoclopramide Blood Disorder Medium 05/14/2020 Medications Medication Sig Dispensed Refills Start Date End Date Status DULoxetine (CYMBALTA) 60 mg Capsule, Delayed Release(E.C.) Take 60 mg by mouth daily. Active traZODone (DESYREL) 50 mg tablet Take 50 mg by mouth daily at bedtime. Active ARIPiprazole (ABILIFY) 2 mg tablet Take 2 mg by mouth daily. Active L-Norgest&E estradiol-E Estrad (Simpesse) 0.15 mg-30 mcg (84)/10 mcg (7) Tablet, Dose Pack, 3 Months TAKE 1 TABLET BY MOUTH DAILY 91 Tablet 04/06/2023 Active prochlorperazine maleate (COMPAZINE) 10 mg tablet Take 1 Tablet (10 mg) by mouth every 6 hours as needed for Nausea. 15 Tablet 07/07/2024 Active clonazePAM 0.5 mg tablet (KlonoPIN) Take 0.5 mg by mouth 3 times daily. Active lumateperone (Caplyta) 21 mg Capsule Take 21 mg by mouth daily. Active verapamiL (CALAN) 80 mg tablet Take 80 mg by mouth daily. Active lamoTRIgine (LaMICtal) 100 mg tablet Take 50 mg by mouth daily. Active omeprazole (PriLOSEC) 40 mg Capsule, Delayed Release(E.C.) Take 1 Capsule (40 mg) by mouth daily. 30 Capsule 07/08/2024 Active omeprazole 40 mg capsule,delayed release (PriLOSEC) Take 40 mg by mouth 1 time daily as needed. 07/08/2024 Discontinued potassium phosphate, monobasic (K-PHOS) 500 mg soluble tablet Take 1 Tablet (500 mg) by mouth 4 times daily for 3 days. 12 Tablet 07/08/2024 07/11/2024 Active Problems Problem Noted Date Diagnosed Date Anxiety and depression 07/08/2024 Bipolar disorder, unspecified 07/08/2024 Marijuana use 07/08/2024 Intractable nausea and vomiting 07/08/2024 Epigastric pain 07/08/2024 Hypokalemia 07/08/2024 High anion gap metabolic acidosis 07/08/2024 History of PSVT (paroxysmal supraventricular tac hycardia) 07/08/2024 Intractable vomiting 07/08/2024 Dehydration 07/08/2024 Overweight with body mass in dex (BMI) of 25 to 25.9 in adult 07/08/2024 Hypophosphatemia 07/08/2024 History of cervical dysplasia 2019, hx LEEP 2019 05/14/2020 Overview (05/23/2020): 2019.10 Pap normal Oral contraceptive use - 3mo continuous 05/14/20 20 History of vulvar vestibulitis, responds well to Cymbalta 05/14/2020 Encounters Date Type Department Care Team Description 07/16/2024 External Device Data [facility]STRACTION Provider, Abstract 07/09/2024 External Device Data [facility]STRACTION Provider, Abstract 07/08/2024 3:48 AM HOLISTIC SPECIALIST - 07/08/2024 4:13 PM [facility] Emergency [facility] Medical [address] [address] [place] [address] Matthew Steve MD Bogachenchu, Sreenivasulu, MD Odibi, Chizor, MD Intractable nausea and vomiting Discharge Disposition: Home or Self Care 07/07/2024 Travel 07/06/2024 11:00 PM HOLISTIC SPECIALIST - 07/07/2024 2:42 AM [facility] Emergency [facility] Emergency Services [address] [address] [place] [address] Matthew Steve MD Chest pain with low risk for cardiac etiology (Primary Dx); Vasovagal syncope; Nausea and vomiting, unspecified vomiting type Discharge Disposition: Home or Self Care from Last 3 Months Family History Medical History Relation Name Comments Breast Cancer Mother 52 Breast Cancer Paternal Grandmother 62 Ovarian Cancer Paternal Grandmother 68 Relation Name Status Comments Maternal Grandmother Mother Alive Paternal Aunt Alive Paternal Grandmother Paternal Uncle Alive Social History Tobacco Use Types Packs/Day Years Used Date Smoking Tobacco: Never Smokeless Tobacco: Never Tobacco Cessation:Counseling Given: Not Answered Alcohol Use Standard Drinks/Week Comments Yes 0 (1 standard drink = 0.6 oz pur e alcohol) Feeling Safe Answer Date Recorded Are you in a relationship wi th someone who hurts you emotionally and/or physically? No 07/08/2024 Food Insecurity Answer Date Recorded Social/Environmental Concerns No concerns Transportation Needs Answer Date Record ed Social/Environmental Concerns No concerns Housing Stability Answer Date Recorded Social/Environmental Concerns No concerns Utility Needs Answer Date Recorded Social/Environmental Concerns No concerns Sex and Gender Information Value Date Recorded Sex Assigned at Not on file Gender Identity Not on file Sexual Orientation Not on file Last Filed Vital Signs Vital Sign Reading Time Taken Comments Blood Pressure 111/63 07/08/2024 12:00 PM HOLISTIC SPECIALIST Pulse 100 07/08/2024 12:00 PM HOLISTIC SPECIALIST Temperature 36.9 ??C (98.4 ??F) 07/08/2024 12:[address] Respiratory Rate 18 07/08/2024 12:00 PM HOLISTIC SPECIALIST Oxygen Saturation 100% 07/08/2024 12:00 PM HOLISTIC SPECIALIST Inhaled Oxygen Concentration - - Weight 63.5 kg (140 lb) 07/08/2024 6:46 AM HOLISTIC SPECIALIST Height 154.9 cm (5' 1 ) 07/08/2024 6:46 AM HOLISTIC SPECIALIST Body Mass Index 26.45 07/08/2024 6:46 AM HOLISTIC SPECIALIST Plan of Treatment Health Maintenance Due Date Last Done Comments HEPATITIS B VACCINES (1 of 3 - 19+ 3-dose series) 2003 COVID-19 Vaccine ( season) 2024 06/21/2023, 12/25/2020, 11/12/2020 BREAST CANCER SCREENING 01/11/2025 01/12/2024, 08/23 CERVICAL CANCER SCREENING 04/07/20252021, 05/14/2020, 02/06/2013 Pre-Diabetes and Diabetes Screening 07/06/2027 07/06/2024 DTAP/TDAP/TD VACCINES (3 - Td or Tdap) 08/02/2031 08/02/2021, 05/22/2016 INFLUENZA VACCINE Completed 06/21/2024, , 05/17/2022, Additional history exists HPV VACCINES Aged Out No longer eligi ble based on patient's age to complete this topic PNEUMOCOCCAL VACCINE 0-64 YEARS Aged Out No longer eligible based on patient's age to complete this topic Procedures Procedure Name Priority Date/Time Associated Diagnosis Comments US ABDOMEN LIMITED Stat 07/08/2024 7: 30 AM HOLISTIC SPECIALIST EKG 12-LEAD Stat 07/08/2024 6:[address] ABDOMEN PELVIS W CONTRAST Stat 07/08/2024 5:07 AM HOLISTIC SPECIALIST HCG QUALITATIVE, SERUM Stat 07/08/2024 4:17 AM HOLISTIC SPECIALIST PHOSPHORUS Routine 07/08/2024 4:08 AM HOLISTIC SPECIALIST C-REACTIVE PROTEIN Stat 07/08/2024 4: 08 AM HOLISTIC SPECIALIST PROCALCITONIN Stat 07/08/2024 4:08 AM HOLISTIC SPECIALIST MAGNESIUM LEVEL Stat 07/08/2024 4:08 AM HOLISTIC SPECIALIST LIPASE Stat 07/08/2024 4:08 AM HOLISTIC SPECIALIST COMPREHENSIVE METABOLIC PANEL Stat 07/08/2024 4:08 AM HOLISTIC SPECIALIST CBC WITH DIFFERENTIAL Stat 07/08/2024 4:08 AM HOLISTIC SPECIALIST HEMOGLOBIN A1C Stat 07/06/2024 11:55 PM HOLISTIC SPECIALIST LIPASE Stat 07/06/2024 11:55 PM HOLISTIC SPECIALIST EXTRA TUBE (BLUE) Stat 07/06/2024 11: 55 PM HOLISTIC SPECIALIST EXTRA TUBE Stat 07/06/2024 11:55 PM HOLISTIC SPECIALIST COMPREHENSIVE METABOLIC PANEL Stat 07/06/2024 11:55 PM HOLISTIC SPECIALIST CBC WITH DIFFERENTIAL Stat 07/06/2024 11:55 PM HOLISTIC SPECIALIST TROPONIN BASELINE, 5TH GEN Stat 07/06/2024 11:55 PM HOLISTIC SPECIALIST EKG 12-LEAD Stat 07/06/2024 10:58 PM HOLISTIC SPECIALIST CERV/VAG CYTO SCREEN PAP W/HPV Routine 04/07/2022 12:00 AM CDT Well woman exam with routine gynecological exam from Last 3 Months or Most Recently Relevant to Health Maintenance Results * US ABDOMEN LIMITED (07/08/2024 7:30 AM HOLISTIC SPECIALIST) Anatomical Region Laterality Modality Abdomen Ultrasound 07/08/2024 7:36 AM HOLISTIC SPECIALIST Impressions 07/08/2024 8:05 AM HOLISTIC SPECIALIST IMPRESSION: 1. Mild abnormal echogenicity of the liver which can be seen with steatosis or other diffuse hepatocellular process. This limits the sensitivity for the detection of hepatic masses. 2. Unremarkable gallbladder. DICTATION LOCATION: Location [address] [place] [address] 07/08/2024 8:05 AM HOLISTIC SPECIALIST US ABDOMEN LIMITED DATE: 07/08/2024 7:30 AM HISTORY: 39-year-old female with nausea and vomiting TECHNIQUE: Limited right upper quadrant ultrasound performed by an senior medical technologist in multiple projections. COMPARISON: None FINDINGS: ?? PANCREAS: Portions of the pancreatic head seen are within normal limits. The body and tail are not well seen due to overlying bowel gas. LIVER: Diffusely coarsened and increased in echogenicity. Within normal limits in size. VASCULATURE: Patent portal vein with hepatopetal flow. GALLBLADDER: Within normal limits. No stones, wall thickening, or pericholecystic fluid. COMMON DUCT: 3 mm in caliber. RIGHT KIDNEY: Survey images of the right kidney fail to demonstrate hydronephrosis. Procedure Note Arias Van MD - 07/08/2024 US ABDOMEN LIMITED DATE: 07/08/2024 7:30 AM HISTORY: 39-year-old female with nausea and vomiting TECHNIQUE: Limited right upper quadrant ultrasound performed by an senior medical technologist in multiple projections. COMPARISON: None FINDINGS: PANCREAS: Portions of the pancreatic head seen are within normal limits. The body and tail are not well seen due to overlying bowel gas. LIVER: Diffusely coarsened and increased in echogenicity. Within normal limits in size. VASCULATURE: Patent portal vein with hepatopetal flow. GALLBLADDER: Within normal limits. No stones, wall thickening, or pericholecystic fluid. COMMON DUCT: 3 mm in caliber. RIGHT KIDNEY: Survey images of the right kidney fail to demonstrate hydronephrosis. IMPRESSION: 1. Mild abnormal echogenicity of the liver which can be seen with steatosis or other diffuse hepatocellular process. This limits the sensitivity for the detection of hepatic masses. 2. Unremarkable gallbladder. DICTATION LOCATION: Location - [facility] Jagruti Lim MD US ORDERABLE S * EKG 12-LEAD (07/08/2024 6:13 AM HOLISTIC SPECIALIST) Only the most recent of2 resultswithin the time period is included. 07/08/2024 6:13 AM HOLISTIC SPECIALIST Narrative INTERFACE SYSTEM - 07/08/2024 4:50 PM HOLISTIC SPECIALIST ? [facility] OPI ? [address], [place] [address] ? Test Date: ?2024-07-08 Pat Name: ? CATA IBRAHIM ? Department: ?? 25 ?Room: ? 2114 Gender: ? Female ? Extracorporeal Technician: ? : ?1985 ? Requested By: MATTHEW Leach Order Number: [id number] ? Reading MD: ?? Sushruth Edla ? Measurements Intervals ?Rawlings ? Rate: ? 63 ? P: ?60 NV: ? 117 ?QRS: ?50 QRSD: ? 90 ? T: ?70 QT: ? 434 ? QTc: ?445 ? Interpretive Statements SINUS RHYTHM WITH SHORT NV INTERVAL POSSIBLE LEFT ATRIAL ENLARGEMENT ??[-0.1mV P-WAVE IN V1/V2] POSSIBLE RIGHT VENTRICULAR CONDUCTION DELAY ??[RSR (QR) IN V1/V2] Electronically Signed On 07-08-2024 16:50:49 HOLISTIC SPECIALIST by Saud Fonseca Procedure Note Saud Fonseca MD - 07/08/2024 [facility] OPI [address], [place] [address] Test Date: 2024-07-08 Pat Name: CATA IBRAHIM Department: 25 Room: [facility] Gender: Female Extracorporeal Technician: : 1985 Requested By: MATTHEW Leach Order Number: [id number] Reading MD: Saud Fonseca Measurements Intervals Rawlings Rate: 63 P: 60 NV: 117 QRS: 50 QRSD: 90 T: 70 QT: 434 QTc: 445 Interpretive Statements SINUS RHYTHM WITH SHORT NV INTERVAL POSSIBLE LEFT ATRIAL ENLARGEMENT [-0.1mV P-WAVE IN V1/V2] POSSIBLE RIGHT VENTRICULAR CONDUCTION DELAY [RSR (QR) IN V1/V2] Electronically Signed On 07-08-2024 16:50:49 HOLISTIC SPECIALIST by Saud Fonseca Jagruti Lim MD ECG ORDERABL ES INTERFACE SYSTEM Refer to clinic/hospital department * CT ABDOMEN PELVIS W CONTRAST (07/08/2024 5:07 AM HOLISTIC SPECIALIST) Anatomical Region Laterality Modality Abdomen Computed Tomogra phy 07/08/2024 5:08 AM HOLISTIC SPECIALIST Impressions 07/08/2024 5:15 AM HOLISTIC SPECIALIST IMPRESSION: 1. Chronic wall thickening likely related to lack of distention. 2. No acute changes. DICTATION LOCATION: Location 7 [facility] Narrative 07/08/2024 5:[address] ABDOMEN AND PELVIS WITH IV CONTRAST ?? DATE: ??07/08/2024 5:07 AM HISTORY: Abdominal pain, acute, nonlocalized, worse epigastric and LUQ areas TECHNIQUE: CT examination abdomen and pelvis is performed with contiguous axial slices during intravenous infusion of contrast. Sagittal and coronal reconstructions are performed by the technologist. Contrast administered: ??IOPAMIDOL 61 % INTRAVENOUS SOLUTION (MULTI-DOSE BULK PACK) Given:100 mL COMPARISON: ??None The examination was performed with the adjustment of mA according to the patient size and/or the use of Iterative Reconstruction Technique. ?? FINDINGS: Visualized lung bases are clear. Liver and spleen demonstrate normal attenuation without focal defect. Gallbladder is normally distended. Pancreas and adrenal glands are unremarkable. Kidneys enhance symmetrically. The appendix is visualized and is within normal limits. There is mild wall thickening in the colon but the colon is nondistended. Uterus and adnexal structures are within normal limits. Bladder is unremarkable. No free fluid is seen in the pelvis or abdomen. Procedure Note Arian Whalen MD - 07/08/2024 CT ABDOMEN AND PELVIS WITH IV CONTRAST DATE: 07/08/2024 5:07 AM HISTORY: Abdominal pain, acute, nonlocalized, worse epigastric and LUQ areas TECHNIQUE: CT examination abdomen and pelvis is performed with contiguous axial slices during intravenous infusion of contrast. Sagittal and coronal reconstructions are performed by the technologist. Contrast administered: IOPAMIDOL 61 % INTRAVENOUS SOLUTION (MULTI-DOSE BULK PACK) Given:100 mL COMPARISON: None The examination was performed with the adjustment of mA according to the patient size and/or the use of Iterative Reconstruction Technique. FINDINGS: Visualized lung bases are clear. Liver and spleen demonstrate normal attenuation without focal defect. Gallbladder is normally distended. Pancreas and adrenal glands are unremarkable. Kidneys enhance symmetrically. The appendix is visualized and is within normal limits. There is mild wall thickening in the colon but the colon is nondistended. Uterus and adnexal structures are within normal limits. Bladder is unremarkable. No free fluid is seen in the pelvis or abdomen. IMPRESSION: 1. Chronic wall thickening likely related to lack of distention. 2. No acute changes. DICTATION LOCATION: Location [address] [place] [address] ORDERABLES * HCG QUALITATIVE, BLOOD (07/08/2024 4:17 AM HOLISTIC SPECIALIST) HCG QUAL, BLOOD Negative Negative, Indeterminate 07/08/2024 4:46 AM HOLISTIC SPECIALIST [facility] [facility] Blood Collection / Unknown 07/08/2024 4:17 AM HOLISTIC SPECIALIST 07/08/2024 4:36 AM HOLISTIC SPECIALIST Narrative [facility] - 07/08/2024 4:46 AM HOLISTIC SPECIALIST hCG sensitive to as little as 10 mIU/mL for serum. Matthew Steve MD CHEMISTRY ORDERABLES Performing Organization Address [facility] Co de Phone Number [facility] Spr[employer] Route [facility] CLIA # [id number] [address] [place] [id number] * PROCALCITONIN (07/08/2024 4:08 AM HOLISTIC SPECIALIST) PROCALCITONIN 0.03 <=0.25 ng/mL 07/08/2024 6:11 AM HOLISTIC SPECIALIST [facility] [facility] Blood Collection / Unknown 07/08/2024 4:08 AM HOLISTIC SPECIALIST 07/08/2024 4:18 AM HOLISTIC SPECIALIST Narrative [facility] [facility] - 07/08/2024 6:11 AM HOLISTIC SPECIALIST The utility of procalcitonin is limited/NOT recommended in certain populations (e.g. newborns, dialysis/ESRD, patients with recent major surgery/trauma/chan, liver cirrhosis, viral hepatitis, certain cancers, etc.). ??Procalcitonin levels MUST be interpreted in the context of the patient's clinical condition and CANNOT be solely relied upon for diagnosis of infection. <0.25 ng/mL: Bacterial infection unlikely, particularly lower respiratory tract infections. <0.5 ng/mL: Low risk for progression to severe sepsis/septic shock. Localized infection possible. ??Measurements done early (<6 hours) after systemic process starts may still be low. 0.5-2 ng/mL: Moderate risk for progression to severe sepsis/septic shock. ?? >2 ng/mL: High risk for progression to severe sepsis/septic shock. If antibiotics ARE administered, repeat testing is recommended every 2-3 days to help guide antibiotic cessation. ??Once a decrease of 80% or more has occurred from baseline, discontinuation of antibiotics should strongly be considered in clinically stable patients. ?? Procalcitonin is produced in the setting of systemic inflammation, particularly bacterial infections. ??It is detectable within 2-4 hours and peaks within 6-24 hours. Jagruti Lim MD CHEMISTRY OR DERABLES Performing Organization Address City/[facility]/ZIP Co de Phone Number [facility] Sprout Route [facility] CLIA # [id number] y [address] [place] [phone] * (ABNORMAL) CBC WITH DIFFERENTIAL (07/08/2024 4:08 AM HOLISTIC SPECIALIST) Only the most recent of2 resultswithin the time period is included. WBC 12.9(H) 4.0 - 11.0 K/uL 07/08/2024 4:15 AM [email or web address] - [facility] RBC 4.80 4.20 - 5.40 M/uL 07/08/2024 4:15 AM [email or web address] - [facility] HEMOGLOBIN 14.4 11.9 - 15.1 g/dL 07/08/2024 4:15 AM [email or web address] - [facility] HEMATOCRIT 42.3 38.0 - 47.0 % 07/08/2024 4:15 AM [email or web address] - [facility] MCV 88.1 80.0 - 98.0 fL 07/08/2024 4:15 AM [email or web address] MCH 30.0 26.0 - 34.0 pg 07/08/2024 4:15 AM [facility] - [facility] MCHC 34.0 31.0 - 37.0 g/dL 07/08/2024 4:15 AM [email or web address] RDW 13.1 11.5 - 14.5 % 07/08/2024 4:15 AM [email or web address] - [facility] RDW-STDEV 42.6 34.0 - 54.0 fL 07/08/2024 4:15 AM [email or web address] - [facility] PLATELETS 413(H) 150 - 400 K/uL 07/08/2024 4:15 AM [email or web address] MPV 10.6 8.5 - 12.5 fL 07/08/2024 4:15 AM [facility] - [facility] NEUTROPHILS 84(H) 50 - 70 % 07/08/2024 4:15 AM [facility] LYMPHOCYTES 14(L) 20 - 40 % 07/08/2024 4:15 AM [email or web address] - [facility] MONOCYTES 2 2 - 8 % 07/08/2024 4:15 AM [facility] - [facility] EOSINOPHILS 0(L) 1 - 3 % 07/08/2024 4:15 AM HOLISTIC SPECIALIST [facility] - [facility] BASOPHILS 0 0 - 1 % 07/08/2024 4:15 AM HOLISTIC SPECIALIST [facility] IMMATURE GRANULOCYTES 0 0 - 2 % 07/08/2024 4:15 AM HOLISTIC SPECIALIST [facility] NEUTROPHIL ABSOLUTE 10.87(H) 1.80 - 7.70 K/uL 07/08/2024 4:15 AM HOLISTIC SPECIALIST [facility] - [facility] LYMPHOCYTE ABSOLUTE 1.75 1.00 - 3.30 K/uL 07/08/2024 4:15 AM HOLISTIC SPECIALIST [facility] - [facility] MONOCYTE ABSOLUTE 0.22 0.00 - 0.80 K/uL 07/08/2024 4:15 AM HOLISTIC SPECIALIST [facility] - [facility] EOSINOPHIL ABSOLUTE 0.00 0.00 - 0.45 K/uL 07/08/2024 4:15 AM HOLISTIC SPECIALIST [facility] - [facility] BASOPHILS ABSOLUTE 0.03 0.00 - 0.20 K/uL 07/08/2024 4:15 AM HOLISTIC SPECIALIST [facility] - [facility] IMMATURE GRANULOCYTES ABSOLUTE 0.05 0.00 - 0.31 K/uL 07/08/2024 4:15 AM HOLISTIC SPECIALIST [facility] Blood Collection / Unknown 07/08/2024 4:08 AM HOLISTIC SPECIALIST 07/08/2024 4:14 AM HOLISTIC SPECIALIST Matthew Steve MD HEMATOLOGY ORDERABLE S Performing Organization Address City/State/[facility] Co de Phone Number [facility] [employer] SERVICES - DUC CLIA # [id number] [address] [phone] * (ABNORMAL) C-REACTIVE PROTEIN (07/08/2024 4:08 AM HOLISTIC SPECIALIST) CRP 7.4(H) <=5.0 mg/L 07/08/2024 6:10 AM HOLISTIC SPECIALIST [email or web address] - [facility] Blood Collection / Unknown 07/08/2024 4:08 AM HOLISTIC SPECIALIST 07/08/2024 4:18 AM HOLISTIC SPECIALIST Jagruti Lim MD CHEMISTRY OR DERABLES Performing Organization Address City/State/[facility] Co de Phone Number [facility] # [id number] [address] [address] * (ABNORMAL) PHOSPHORUS (07/08/2024 4:08 AM HOLISTIC SPECIALIST) PHOSPHORUS 1.1(L) 2.5 - 4.5 mg/dL 07/08/2024 9:43 AM HOLISTIC SPECIALIST [facility] Blood Collection / Unknown 07/08/2024 4:08 AM HOLISTIC SPECIALIST 07/08/2024 4:18 AM HOLISTIC SPECIALIST Anabel Philip MD CHEMISTRY ORDERABLES Performing Organization Address [facility] Co de Phone Number [facility] # [id number] [address] [address] * MAGNESIUM LEVEL (07/08/2024 4:08 AM HOLISTIC SPECIALIST) Pathologist [facility] MAGNESIUM 2.0 1.6 - 2.6 mg/dL 07/08/2024 6:10 AM HOLISTIC SPECIALIST [facility] Blood Collection / Unknown 07/08/2024 4:08 AM HOLISTIC SPECIALIST 07/08/2024 4:18 AM HOLISTIC SPECIALIST Jagruti Lim MD CHEMISTRY OR DERABLES Performing Organization Address [facility] Co de Phone Number [facility] # [id number] [address] [address] * LIPASE (07/08/2024 4:08 AM HOLISTIC SPECIALIST) Only the most recent of2 resultswithin the time period is included. LIPASE 20 13 - 60 U/L 07/08/2024 4:30 AM HOLISTIC SPECIALIST [facility] [employer] [facility] Blood Collection / Unknown 07/08/2024 4:08 AM HOLISTIC SPECIALIST 07/08/2024 4:18 AM HOLISTIC SPECIALIST Matthew Steve MD CHEMISTRY ORDERABLES [facility] LABORATORY SERVICES - DUC CLIA # [id number] [facility] [address] [place] [address] * (ABNORMAL) COMPREHENSIVE METABOLIC PANEL (07/08/2024 4:08 AM HOLISTIC SPECIALIST) Only the most recent of2 resultswithin the time period is included. SODIUM 136 136 - 145 mmol/L 07/08/2024 4:[address] [facility] LABORATORY SERVICES - [facility]UC POTASSIUM 3.3(L) 3.5 - 5.1 mmol/L 07/08/2024 4:[address] [facility] - [facility] CHLORIDE 101 98 - 107 mmol/L 07/08/2024 4:[address] [facility] SERVICES - [facility] CO2 17(L) 22 - 29 mmol/L 07/08/2024 4:[address] [facility] - [facility] CALCIUM 9.7 8.6 - 10.0 mg/dL 07/08/2024 4:[address] [facility] - [facility] BUN 8 6 - 20 mg/dL 07/08/2024 4:[address] [facility] - [facility] CREATININE 0.82 0.51 - 0.95 mg/dL 07/08/2024 4:[address] [facility] - [facility] GLUCOSE 138(H) 74 - 99 mg/dL 07/08/2024 4:[address] [facility] - [facility] TOTAL PROTEIN 8.6 6.6 - 8.7 g/dL 07/08/2024 4:[address] [facility] - [facility] ALBUMIN 4.6 4.0 - 5.0 g/dL 07/08/2024 4:[address] [facility] - [facility] BILIRUBIN TOTAL 0.3 <=1.2 mg/dL 07/08/2024 4:[address] [facility] - [facility] ALKALINE PHOSPHATASE 93 35 - 104 U/L 07/08/2024 4:[address] [facility] - [facility] AST 29 <40 U/L 07/08/2024 4:[address] [facility] - [facility] ALT 31 <=33 U/L 07/08/2024 4:[address] [facility] GFR >60 >=60 mL/min/1.7 3 sq meter 07/08/2024 4:[address] [facility] Comment:eGFR calculated with 2020 CKD-EPI equation. Vegetarian diet, extremely high or low muscle mass, and may affect results. Cystatin C with Glomerular Filtration Rate is a suitable alternative for these patients. ANION GAP 18(H) 5 - 15 mmol/L 07/08/2024 4:30 AM [facility] - [place] Blood Collection / Unknown 07/08/2024 4:08 AM HOLISTIC SPECIALIST 07/08/2024 4:18 AM HOLISTIC SPECIALIST Matthew Steve MD CHEMISTRY ORDERABLES Performing Organization Address [facility]/ZIP Co de Phone Number [facility] CLIA # [id number] Formerly [facility] [address] [place] [address] * EXTRA TUBE (BLUE) (07/06/2024 11:55 PM HOLISTIC SPECIALIST) Blood Venipuncture / Unknown 07/06/2024 11:55 PM HOLISTIC SPECIALIST 07/07/2024 12:03 AM HOLISTIC SPECIALIST Protocol Roula Morrison MD HEMATOLOGY OR DERABLES Performing Organization Address [facility] Co de Phone Number [facility] CLIA # [id number] [address] [address] * TROPONIN BASELINE, 5TH GEN (07/06/2024 11:55 PM HOLISTIC SPECIALIST) TROPONIN T, BASELINE 5TH GEN <6 <=10 ng/L 07/07/2024 12:18 AM HOLISTIC SPECIALIST [facility] Blood Collection / Unknown 07/06/2024 11:55 PM HOLISTIC SPECIALIST 07/07/2024 12:06 AM HOLISTIC SPECIALIST Narrative [facility] - 07/07/2024 12:18 AM HOLISTIC SPECIALIST Troponin Undetectable Protocol Roula Morrison MD CHEMISTRY ORD ERABLES [facility] CLIA # [id number] Formerly [facility] [address] [place] [address] * HEMOGLOBIN A1C (07/06/2024 11:55 PM HOLISTIC SPECIALIST) HEMOGLOBIN A1C 5.5 <=5.6 % 07/07/2024 12:40 AM HOLISTIC SPECIALIST [facility] [employer] [facility] EST. AVG GLUCOSE, A1C 111 mg/dL 07/07/2024 12:40 AM HOLISTIC SPECIALIST [facility] Blood Collection / Unknown 07/06/2024 11:55 PM HOLISTIC SPECIALIST 07/07/2024 12:19 AM HOLISTIC SPECIALIST Narrative [facility] [employer] [facility] - 07/07/2024 12:40 AM HOLISTIC SPECIALIST HGB A1C INTERPRETATION NORMAL: ? <5.7% PRE-DIABETES: 5.7 - 6.4% DIABETES: ? 6.5% OR GREATER Protocol Roula Morrison MD CHEMISTRY ORD ERABLES [facility] [employer] [facility] CLIA # [id number] Former[facility] [address] [place] [address] * (ABNORMAL) CERV/VAG CYTO SCREEN PAP W/HPV (04/07/2022 12:00 AM CDT) CLINICAL INFORMATION [facility] Comment:SCREENING LAST MENSTRUAL PERIOD [facility] Comment:INFORMATION NOT PROV IDED PREV PAP: [facility] Comment:INFORMATION NOT PROV IDED PREV BX: [facility] Comment:INFORMATION NOT PROV IDED SOURCE [facility] Comment:Endocervix ADEQUACY: [facility] Comment: Satisfactory for evaluation. Endocervical/transformation zone component present. Age and/or menstrual status not provided PAP INTERP [facility] Comment:Negative for intraep ithelial lesion or malignancy. CYTOLOGY INFECTION [facility] Comment: Shift in vaginal colton suggestive of bacterial vaginosis. COMMENT (PAP TEST) [facility] Comment: This Pap test has been evaluated with computer assisted technology. MILITARY ADMINISTRATIVE TECHNICIAN: Lyndon Chen Comment: JAF, CT(ASCP) CT Screening Location: [place] [address] [place] [address] [address] MILITARY ADMINISTRATIVE TECHNICIAN: Hodan Chen Comment: MEF, CT(ASCP) CT screening location: [place] [address] [address] [place] [facility] EXPLANATORY NOTE [employer] Chen Comment: EXPLANATORY NOTE: The Pap is a screening test for cervical cancer. It is not a diagnostic test and is subject to false negative and false positive results. It is most reliable when a satisfactory sample, regularly obtained, is submitted with relevant clinical findings and history, and when the Pap result is evaluated along with historic and current clinical information. HPV E6/E7 Detected( A) Not Detected Hodan [employer] Chen Comment: Methodology: Java Web Engineer-Mediated Amplification This assay detects E6/E7 viral messenger RNA (mRNA) from 14 high-risk HPV types (16,18,31,33,35,39,45,51,52,56,58,59,66,68). Cervical sources are required for HPV testing. If a vaginal source from a patient who has had a total hysterectomy with removal of cervix was submitted, please contact the testing laboratory for alternative testing options. For additional information, please refer to http://education.[employer]/faq/RWK310p0 (This link if provided for information/ educational purposes only.) Test Performed at: [facility] [address] [facility] [place] ??[address] Willi Gerber D.O., MPH SL Genital SWAB OF ENDOCERVIX / Unknown 04/07/2022 04/07/2022 9:33 PM CDT Hazel Mcadams MD PATHOLOGY/CYTOLOGY [facility] [phone] [facility] [address] [place] [address] from Last 3 Months or Most Recently Relevant to Health Maintenance Advance Directives For more information, please contact: [phone] * Full Code (Latest Code Status on File) Date Activated Date Inactivated Comments 07/08/2024 6:36 AM 07/08/2024 6:14 PM Care Teams Chef French Relationship Specialty Start Date End Date Geo Duff MD [address] [place] [address] [place] [phone] PCP - General Family Practice 07/07/24
--- OUTSIDE RECORDS SUMMARY | 2024-07-30 14:16 | XMS_ITS | Encounter Summary ---
Author Organization [place] [employer] Document Preparation Address [address] [place] [address] Care Team Providers Care Flexo Operator Name Role Phone Dona Beyer MD Primary Care Provider [phone] Encounter Details Date Type Department Care Team (Late st Contact Info) Description 2024 External Device Data [place] ABSTRACTION Provider, Abstract NO ADDRESS ON FILE Social History Tobacco Use Types Packs/Day Years [...] on filedocumented in this encounter Care Teams Flexo Operator Relationship Specialty Start Date End Date Dona Beyer MD PCP - General Film Editor 05/14/20 07/06/24 documented as of this encounter
--- OUTSIDE RECORDS SUMMARY | 2024-07-30 14:16 | XMS_ITS | Encounter Summary ---
Author Organization [facility] Address 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 Pt endorses nausea and 1 syncopal episode * Auth/Cert (Routine) Specialty Diagnoses / Procedures Referred By María Elena rand Ref[facility] To Contact [facility] [address] [place] [address] [place] [address] Referral ID Status Reason Start Date Expiration Date Visits Re quested Visits Authorized [id number] 1 1 Encounter Details Date Type Department Care Team (Late st Contact Info) Description 07/06/2024 11:00 PM IT TRAINEE - 07/07/2024 2:42 AM [facility] Emergency [facility] Emergency Services [address] [place] [address] Fermin Steve MD [address] [place] [id number] Chest pain with low risk for cardiac [...] Sign Reading Time Taken Comments Blood Pressure 117/80 07/07/2024 1:15 AM IT TRAINEE Pulse 83 07/07/2024 1:50 AM IT TRAINEE Temperature 36.3 ??C (97.4 ??F) 07/06/2024 10:[address] Respiratory Rate 15 07/07/2024 1:50 AM IT TRAINEE Oxygen Saturation 98% 07/07/2024 1:50 AM IT TRAINEE Inhaled Oxygen Concentration - - Weight 63.5 kg (140 lb) 07/06/2024 10:59 PM IT TRAINEE Height 154.9 cm (5' 1 ) 07/06/2024 10:59 PM IT TRAINEE Body Mass Index 26.45 07/06/2024 10:59 PM IT TRAINEE documented in this encounter Discharge Instructions * Discharge Instructions* Fermin Steve MD - 07/07/2024 2:27 AM IT TRAINEE Your EKG looks good, your heart monitoring has been normal Your cardiac enzyme is negative and your other lab work is also normal. I think you had a fainting episode probably due to the pain you are having which caused a vasovagalepisode. This is a condition where you get a temperature. Drop in blood pressure and heart rate which causes you to become weak/lightheaded/faint. Usually resolves very quickly as it did in this instance I think you have a very low probability of having coronary artery disease, and the pain you are having today is likely more GI related rather than cardiac Take Protonix daily to reduce acid in the stomach. Hold the omeprazole while you are taking Protonix Take Compazine as needed for nausea if your Zofran is not working Beadle diet for a day or 2, drink lots of fluids but in small amounts at a time Contact your primary care doctor on Monday to make a follow-up appointment Return to the emergency department at any time if you feel worse or have any new concerns I strive to take your healthcare seriously and provide you with excellent service as my patient, making it my #1 priority. You may receive a survey after your visit today. If you cannot rate your experience as excellent, then please let us know how we can do a better job in caring for you and meeting whatever needs you may have. If you have any questions, please call . TRAINEE * Attachments The following attachments cannot be sent through Care Everywhere. * Nausea and Vomiting (Citizen [place]) * Fainting ([place]) * Chest Pain ([place]izen [place]) documented in this encounter Medications at Time of Discharge Medication Sig Dispensed Refills Start Date End Date prochlorperazine maleate (COMPAZINE) 10 mg tablet Take 1 Tablet (10 mg) by mouth every 6 hours as needed for Nausea. 15 Tablet 07/07/2024 L-Norgest&E estradiol-E Estrad (Simpesse) 0.15 mg-30 mcg (84)/10 mcg (7) Tablet, Dose Pack, 3 Months TAKE 1 TABLET BY MOUTH DAILY 91 Tablet 04/06/2023 ARIPiprazole (ABILIFY) 2 mg tablet Take 2 mg by mouth daily. DULoxetine (CYMBALTA) 60 mg Capsule, Delayed Release(E.C.) Take 60 mg by mouth daily. traZODone (DESYREL) 50 mg tablet Take 50 mg by mouth daily at bedtime. omeprazole 40 mg capsule,delayed release (PriLOSEC) Take 40 mg by mouth 1 time daily as needed. 07/08/2024 documented as of this encounter ED Notes * Fermin Steve MD - 07/06/2024 10:48 PM CST HISTORY OF PRESENT ILLNESS 39-year-old female patient presents Emergency Department with complaints of severe lower chest pain/upper abdominal pain. The pain is a constant aching and burning type pain. Nothing makes it any better. This was followed by intractable nausea and vomiting. Symptoms came on abruptly a few hours ago. Patient states she has had an episode like this previously and she was admitted from March 30 through April 09 at [facility]. Multiple tests were done.the specific findings. She does have a diagnosis acid reflux and bipolar disorder. She is allergic to Reglan. She took Zofran at home but it did not help. No fever or chills. No hematemesis or coffee-ground emesis. No melena or bright of blood per rectum. No history of any diarrhea. She did not eat any food that was potentially spoiled and she has not been around anybody that has been sick that she knows of. Chest Pain PAST MEDICAL HISTORY REVIEWED MEDICAL: Patient has a past medical history of Acid reflux and Bipolar disorder. SURGICAL: Patient has a past surgical history that includes section and esophagogastroduodenoscopy (04/01/2024). ALLERGIES Metoclopramide PHYSICAL EXAM INITIAL VS BP: 132/79 (07/06/242258), Heart Rate: (!) 58 bpm (07/06/242258), Resp: 16 (07/06/242258), Pulse: (!) 57 (07/06/242309), Temp: 97.4 ??F (36.3 ??C) (07/06/242258), Temp src: Temporal (07/06/242258), SpO2: 100 % (07/06/242258), Height: 5' 1 (154.9 cm) (07/06/242258), Weight: 63.5 kg (140 lb) (07/06/242258), BMI (Calculated): (!) 26.46 (07/06/242258) No LMP recorded. (Menstrual status: Continuous Control). Physical Exam Vitals and nursing note reviewed. Constitutional: General: She is in acute distress (Moderate pain distress). Appearance: She is well-developed. HENT: Head: Normocephalic and atraumatic. Mouth/Throat: Mouth: Mucous membranes are dry. Eyes: Conjunctiva/sclera: Conjunctivae normal. Pupils: Pupils are equal, round, and reactive to light. Neck: Thyroid: No thyromegaly. Vascular: No JVD. Trachea: No tracheal deviation. Cardiovascular: Rate and Rhythm: Normal rate and regular rhythm. Heart sounds: Normal heart sounds. No murmur heard. Pulmonary: Effort: Pulmonary effort is normal. No respiratory distress. Breath sounds: Normal breath sounds. No wheezing or rales. Chest: Chest wall: No tenderness. Abdominal: General: Bowel sounds are normal. There is no distension. Palpations: Abdomen is soft. Tenderness: There is abdominal tenderness (Epigastrically, mild guarding but no rebound). There is guarding. There is no rebound. Musculoskeletal: General: No tenderness. Normal range of motion. Cervical back: Normal range of motion and neck supple. Lymphadenopathy: Cervical: No cervical adenopathy. Skin: General: Skin is warm and dry. Coloration: Skin is not pale. Findings: No erythema or rash. Neurological: Mental Status: She is alert and oriented to person, place, and time. Cranial Nerves: No cranial nerve deficit. Psychiatric: Behavior: Behavior normal. DIAGNOSTICS LAB: CBC WITH DIFFERENTIAL - Abnormal Result Value WBC 12.1 (*) RBC 4.71 HEMOGLOBIN 14.2 HEMATOCRIT 42.1 MCV 89.4 MCH 30.1 MCHC 33.7 RDW 13.0 RDW-STDEV 42.6 PLATELETS 372 MPV 10.4 NEUTROPHILS 76 (*) LYMPHOCYTES 19 (*) MONOCYTES 5 EOSINOPHILS 0 (*) BASOPHILS 0 IMMATURE GRANULOCYTES 0 NEUTROPHIL ABSOLUTE 9.12 (*) LYMPHOCYTE ABSOLUTE 2.26 MONOCYTE ABSOLUTE 0.59 EOSINOPHIL ABSOLUTE 0.03 BASOPHILS ABSOLUTE 0.03 IMMATURE GRANULOCYTES ABSOLUTE 0.04 COMPREHENSIVE METABOLIC PANEL - Abnormal SODIUM 134 (*) POTASSIUM 3.9 CHLORIDE 99 CO2 16 (*) CALCIUM 9.8 BUN 7 CREATININE 0.76 GLUCOSE 145 (*) TOTAL PROTEIN 8.4 ALBUMIN 4.5 BILIRUBIN TOTAL 0.3 ALKALINE PHOSPHATASE 85 AST 21 ALT 20 GFR >60 ANION GAP 19 (*) TROPONIN BASELINE, 5TH GEN - Normal TROPONIN T, BASELINE 5TH GEN <6 LIPASE - Normal LIPASE 22 EXTRA TUBE EXTRA TUBE (BLUE) HEMOGLOBIN A1C HEMOGLOBIN A1C 5.5 EST. AVG GLUCOSE, A1C 111 TROPONIN 2 HR, 5TH GEN TROPONIN 6 HR, 5TH GEN RADIOLOGY: No orders to display EKG: Normal sinus rhythm with a rate of 60, normal QRS except for an RSR prime in V1 and V2, normalST and T waves, interpreted by me at the time the EKG was performed Cardiac monitoring shows normal sinus rhythm with no ectopy PROCEDURES Procedures MEDICAL DECISION MAKING AND PLAN OF CARE Medical Decision Making Medical Decision Making: Summary: 39-year-old female patient presents Emergency Department with complaints of severe lower chest pain/upper abdominal pain. The pain is a constant aching and burning type pain. Nothing makes it any better. This was followed by intractable nausea and vomiting. Symptoms came on abruptly a few h ours ago. Patient states she has had an episode like this previously and she was admitted from March 30 through April 09 at [facility]. Multiple tests were done.the specific findings. She does have a diagnosis acid reflux and bipolar disorder. She is allergic to Reglan. She took Zofran at home but it did not help. No fever or chills. No hematemesis or coffee-ground emesis. No melena or bright of blood per rectum. No history of any diarrhea. She did not eat any food that was potentially spoiled and she has not been around anybody that has been sick that she knows of. Physical exam shows the patient be in moderate pain distress. Mucous membranes dry. She is tender epigastrically with mild guarding but no rebound. EKG on arrival shows no acute ischemic changes. Will do a card iac workup with a lipase, review her records, treat her pain and nausea give her IV fluids. Initial labs are unremarkable, lipase is low and troponin is negative. Symptoms are little better. Will get to observe, or chest pain has a very low likelihood of being related to her heart. Most likely related to GI issue. Her pain back so second dose of pain medicine was given as well as GI cocktail. Pain is now completely gone.. She is feeling much better and wants to go home. Patient stable for discharge. Return instructions given. Differential diagnosis includes, but is not limited to, GERD, hiatal hernia, cyclic vomiting, gallbladder disease, dehydration, peptic ulcer disease. By virtue of history and physical, some of these diagnoses can be excluded. Non-ED notes reviewed: Old records reviewed Additional information obtained from independent historian, Spouse, The following social determinants of health potentially complicated the patient's course and were considered in my plan of care:None. Amount and/or Complexity of Data Reviewed Labs: ordered. Decision-making details documented in ED Course. ECG/medicine tests: ordered and independent interpretation performed. Decision- making details documented in ED Course. Risk OTC drugs. Prescription drug management. Clinical Scoring & Consults Medications Administered During the ED Stay from 07/06/2024 2298 to 07/07/2024 0249 Date/Time Order Dose Route Action 07/06/2024 2315 IT TRAINEE sodium chloride flush injection 5 mL 5 mL IV Given 07/07/2024 0004 IT TRAINEE prochlorperazine (COMPAZINE) injection 10 mg 10 mg IV Given 07/07/2024 0005 IT TRAINEE diphenhydrAMINE (BENADRYL) injection 50 mg 50 mg IV Given 07/07/2024 0008 IT TRAINEE pantoprazole (PROTONIX) 40 mg in sodium chloride 0.9% 10 mL injection 40 mg IV Given 07/07/2024 0026 IT TRAINEE sodium chloride 0.9% bolus solution 1,000 mL 0 mL IV Stopped 07/06/2024 2356 IT TRAINEE sodium chloride 0.9% bolus solution 1,000 mL 1,000 mL IV New Bag 07/07/2024 0235 IT TRAINEE sodium chloride 0.9% infusion 0 mL IV Stopped 07/07/2024 0105 IT TRAINEE sodium chloride 0.9% infusion -- IV New Bag 07/07/2024 0006 IT TRAINEE morphine 4 mg/mL injection 4 mg 4 mg IV Given 07/07/2024 0143 IT TRAINEE morphine 4 mg/mL injection 4 mg 4 mg IV Given 07/07/2024 0146 IT TRAINEE aluminum - magnesium - simethicone (MYLANTA) 200-200-20 mg/5 mL oral [id number] mL 20 mL Oral Given 07/07/2024 0147 IT TRAINEE lidocaine (XYLOCAINE) 2 % viscous oral solution 10 mL 10 mL Oral Given Discharge Medication List as of 07/07/2024 2:28 AM START taking these medications Details pantoprazole (PROTONIX) 40 mg Tablet, Delayed Release (E.C.) Take 1 Tablet (40 mg) by mouth daily.,Disp-30 Tablet, R-0 prochlorperazine maleate (COMPAZINE) 10 mg tablet Take 1 Tablet (10 mg) by mouth every 6 hours as needed for Nausea., Disp-15 Tablet, R-0 CONTINUE these medications which have NOT CHANGED Details L-Norgest&E estradiol-E Estrad (Simpesse) 0.15 mg-30 mcg (84)/10 mcg (7) Tablet, Dose Pack, 3 Months TAKE 1 TABLET BY MOUTH DAILY, Disp-91 Tablet, R-0 ARIPiprazole (ABILIFY) 2 mg tablet buPROPion HCL (WELLBUTRIN SR) 150 mg Sustained Release 12 hour tablet Take 150 mg by mouth 2 times daily. clonazePAM (KlonoPIN) 0.5 mg Tablet Take 0.5 mg by mouth. DULoxetine (CYMBALTA) 60 mg Capsule, Delayed Release(E.C.) TK 1 C PO QD lamoTRIgine (LaMICtal) 100 mg tablet omeprazole (PriLOSEC) 20 mg Capsule, Delayed Release(E.C.) Take 20 mg by mouth. traZODone (DESYREL) 50 mg tablet LAST VS BP: 117/80 (07/07/24 0115), Heart Rate: 82 bpm (07/07/24 015), Resp: 15 (07/07/24149), Pulse: 83(07/07/24149), Temp: 97.4 ??F (36.3 ??C) (07/06/242258), Temp src: Temporal (07/06/242258), SpO2: 98 % (07/07/24149) CLINICAL IMPRESSION Final diagnoses: [R07.9] Chest pain with low risk for cardiac etiology (Primary) [R55] Vasovagal syncope [R11.2] Nausea and vomiting, unspecified vomiting type DISPOSITION, EDUCATION AND MEDICATION RECONCILIATION Medications reconciled. See after visit summary for patient education on discharged patients. ED Disposition ED Disposition Discharge Condition Stable User Fermin Steve MD Date/Time Sun Jul 07, 2024 2:24 AM Comment -- DC INSTRUCTIONS: Your EKG looks good, your heart monitoring has been normal Your cardiac enzyme is negative and your other lab work is also normal. I think you had a fainting episode probably due to the pain you are having which caused a vasovagalepisode. This is a condition where you get a temperature. Drop in blood pressure and heart rate which causes you to become weak/lightheaded/faint. Usually resolves very quickly as it did in this instance I think you have a very low probability of having coronary artery disease, and the pain you are having today is likely more GI related rather than cardiac Take Protonix daily to reduce acid in the stomach. Hold the omeprazole while you are taking Protonix Take Compazine as needed for nausea if your Zofran is not working Beadle diet for a day or 2, drink lots of fluids but in small amounts at a time Contact your primary care doctor on Monday to make a follow-up appointment Return to the emergency department at any time if you feel worse or have any new concerns TRAINEE documented in this encounter Plan of Treatment Not on file documented as of this encounter Procedures Procedure Name Priority Date/Time Associated Diagnosis Comments EXTRA TUBE (BLUE) Stat 07/06/2024 11: 55 PM IT TRAINEE EXTRA TUBE Stat 07/06/2024 11:55 PM IT TRAINEE TROPONIN BASELINE, 5TH GEN Stat 07/06/2024 11:55 PM IT TRAINEE CBC WITH DIFFERENTIAL Stat 07/06/2024 11:55 PM IT TRAINEE LIPASE Stat 07/06/2024 11:55 PM IT TRAINEE HEMOGLOBIN A1C Stat 07/06/2024 11:55 PM IT TRAINEE COMPREHENSIVE METABOLIC PANEL Stat 07/06/2024 11:55 PM IT TRAINEE EKG 12-LEAD Stat 07/06/2024 10:58 PM IT TRAINEE documented in this encounter Results * HEMOGLOBIN A1C (07/06/2024 11:55 PM IT TRAINEE) HEMOGLOBIN A1C 5.5 <=5.6 % 07/07/2024 12:40 AM IT TRAINEE [facility] EST. AVG GLUCOSE, A1C 111 mg/dL 07/07/2024 12:40 AM IT TRAINEE [facility] Blood Collection / Unknown 07/06/2024 11:55 PM IT TRAINEE 07/07/2024 12:19 AM IT TRAINEE Narrative [facility] - 07/07/2024 12:40 AM IT TRAINEE HGB A1C INTERPRETATION NORMAL: ? <5.7% PRE-DIABETES: 5.7 - 6.4% DIABETES: ? 6.5% OR GREATER Protocol Roula Morrison MD CHEMISTRY ORD ERABLES [facility] [employer] [facility] CLIA # [id number] [address] [place] [address] * LIPASE (07/06/2024 11:55 PM IT TRAINEE) Pathologist [facility] LIPASE 22 13 - 60 U/L 07/07/2024 12:14 AM IT [facility]EE [facility] Blood Collection / Unknown 07/06/2024 11:55 PM IT TRAINEE 07/07/2024 12:06 AM IT TRAINEE Fermin Steve MD CHEMISTRY ORDERABLES Performing Organization Address City/[facility]/ZIP Co de Phone Number [facility] CLIA # [id number] [facility] [address] [place] [address] * EXTRA TUBE (BLUE) (07/06/2024 11:55 PM IT TRAINEE) Blood Venipuncture / Unknown 07/06/2024 11:55 PM IT TRAINEE 07/07/2024 12:03 AM IT TRAINEE Nadir Morrison MD HEMATOLOGY OR DERABLES Performing Organization Address City/[facility]/ZIP Co de Phone Number [facility] [employer] [facility] CLIA # [id number] [address] [address] * (ABNORMAL) COMPREHENSIVE METABOLIC PANEL (07/06/2024 11:55 PM IT TRAINEE) Pathologist [facility] SODIUM 134(L) 136 - 145 mmol/L 07/07/2024 12:19 AM [facility] POTASSIUM 3.9 3.5 - 5.1 mmol/L 07/07/2024 12:19 AM [facility] CHLORIDE 99 98 - 107 mmol/L 07/07/2024 12:19 AM [facility] CO2 16(L) 22 - 29 mmol/L 07/07/2024 12:19 AM [facility] CALCIUM 9.8 8.6 - 10.0 mg/dL 07/07/2024 12:19 AM [facility] BUN 7 6 - 20 mg/dL 07/07/2024 12:19 AM [facility] CREATININE 0.76 0.51 - 0.95 mg/dL 07/07/2024 12:[address] [facility] GLUCOSE 145(H) 74 - 99 mg/dL 07/07/2024 12:[address] [facility] TOTAL PROTEIN 8.4 6.6 - 8.7 g/dL 07/07/2024 12:[address] [facility] ALBUMIN 4.5 4.0 - 5.0 g/dL 07/07/2024 12:[address] [facility] BILIRUBIN TOTAL 0.3 <=1.2 mg/dL 07/07/2024 12:[address] [facility] ALKALINE PHOSPHATASE 85 35 - 104 U/L 07/07/2024 12:[address] [facility] AST 21 <40 U/L 07/07/2024 12:[address] [facility] ALT 20 <=33 U/L 07/07/2024 12:19 AM [facility] GFR >60 >=60 mL/min/1.7 3 sq meter 07/07/2024 12:19 AM [facility] Comment:eGFR calculated with 2020 CKD-EPI equation. Vegetarian diet, extremely high or low muscle mass, and may affect results. Cystatin C with Glomerular Filtration Rate is a suitable alternative for these patients. ANION GAP 19(H) 5 - 15 mmol/L 07/07/2024 12:19 AM [facility] Blood Collection / Unknown 07/06/2024 11:55 PM IT TRAINEE 07/07/2024 12:06 AM IT TRAINEE Protocol Roula Morrison MD CHEMISTRY ORD ERABLES [facility] [employer] [facility] CLIA # [id number] [facility] [address] [place] [address] * (ABNORMAL) CBC WITH DIFFERENTIAL (07/06/2024 11:55 PM IT TRAINEE) WBC 12.1(H) 4.0 - 11.0 K/uL 07/07/2024 12:01 AM [facility] RBC 4.71 4.20 - 5.40 M/uL 07/07/2024 12:01 AM [facility] - [facility] HEMOGLOBIN 14.2 11.9 - 15.1 g/dL 07/07/2024 12:01 AM [facility] - [facility] HEMATOCRIT 42.1 38.0 - 47.0 % 07/07/2024 12:01 AM [facility] - [facility] MCV 89.4 80.0 - 98.0 fL 07/07/2024 12:01 AM [facility] - [facility] MCH 30.1 26.0 - 34.0 pg 07/07/2024 12:01 AM [facility] - [facility] MCHC 33.7 31.0 - 37.0 g/dL 07/07/2024 12:01 AM [facility] - [facility] RDW 13.0 11.5 - 14.5 % 07/07/2024 12:01 AM [facility] [employer] LABORATORY SERVICES - [facility] RDW-STDEV 42.6 34.0 - 54.0 fL 07/07/2024 12:01 AM [facility] [employer] LAB[facility]AT[facility] - [facility] PLATELETS 372 150 - 400 K/uL 07/07/2024 12:01 AM [facility] [employer] [facility] - [facility] MPV 10.4 8.5 - 12.5 fL 07/07/2024 12:01 AM [facility] NEUTROPHILS 76(H) 50 - 70 % 07/07/2024 12:01 AM [facility] [employer] [facility] - [facility] LYMPHOCYTES 19(L) 20 - 40 % 07/07/2024 12:01 AM [facility] [employer] [facility] - [facility] MONOCYTES 5 2 - 8 % 07/07/2024 12:01 AM [facility] [employer] [facility] - [facility] EOSINOPHILS 0(L) 1 - 3 % 07/07/2024 12:01 AM [facility] [employer] [facility] - [facility] BASOPHILS 0 0 - 1 % 07/07/2024 12:01 AM [facility] IMMATURE GRANULOCYTES 0 0 - 2 % 07/07/2024 12:01 AM [facility] [employer] LAB[facility]AT[facility] - [facility] NEUTROPHIL ABSOLUTE 9.12(H) 1.80 - 7.70 K/uL 07/07/2024 12:01 AM [facility]ATORY SERVICES - [facility] LYMPHOCYTE ABSOLUTE 2.26 1.00 - 3.30 K/uL 07/07/2024 12:01 AM [facility] SERVICES - [facility] MONOCYTE ABSOLUTE 0.59 0.00 - 0.80 K/uL 07/07/2024 12:01 AM [facility] - [facility] EOSINOPHIL ABSOLUTE 0.03 0.00 - 0.45 K/uL 07/07/2024 12:01 AM [facility] - [facility] BASOPHILS ABSOLUTE 0.03 0.00 - 0.20 K/uL 07/07/2024 12:01 AM [facility] SERVICES - [facility] IMMATURE GRANULOCYTES ABSOLUTE 0.04 0.00 - 0.31 K/uL 07/07/2024 12:01 AM [facility] - [facility] Blood Collection / Unknown 07/06/2024 11:55 PM IT TRAINEE 07/06/2024 11:59 PM IT TRAINEE Protocol Roula Morrison MD HEMATOLOGY OR DERABLES [facility] [employer] [facility] CLIA # [id number] [address] [place] [address] * TROPONIN BASELINE, 5TH GEN (07/06/2024 11:55 PM IT TRAINEE) TROPONIN T, BASELINE 5TH GEN <6 <=10 ng/L 07/07/2024 12:18 AM IT TRAINEE [facility] Blood Collection / Unknown 07/06/2024 11:55 PM IT TRAINEE 07/07/2024 12:06 AM IT TRAINEE Narrative [facility] - 07/07/2024 12:18 AM IT TRAINEE Troponin Undetectable Protocol Roula Morrison MD CHEMISTRY ORD ERABLES [facility] [employer] [facility] CLIA # [id number] [address] [place] [address] * EKG 12-LEAD (07/06/2024 10:58 PM IT TRAINEE) 07/06/2024 10:5 8 PM IT TRAINEE Narrative INTERFACE SYSTEM - 07/07/2024 7:33 AM IT TRAINEE ? [facility] ? [address], [place] [address] ? Test Date: ?2024-07-06 Pat Name: ? CAMMA FANNY ?Department: ?? 5003 ?Room: ? Gender: ? Female ? 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 : ?[id number] ? Requested By: ? Order Number: [id number] ? Reading MD: ?? Soubrandon Boateng ? Measurements Intervals ?[place] ? Rate: ? 59 ? P: ?59 OH: ? 113 ?QRS: ?56 QRSD: ? 85 ? T: ?75 QT: ? 430 ? QTc: ?428 ? Interpretive Statements SINUS BRADYCARDIA WITH SINUS ARRHYTHMIA WITH SHORT OH INTERVAL POSSIBLE RIGHT VENTRICULAR CONDUCTION DELAY [RSR (QR) IN V1/V2] Electronically Signed On 07-07-2024 7:33:52 IT TRAINEE by Mimi Boateng Procedure Note Mimi Boateng MD - 07/07/2024 [facility] [address], [place] [address] Test Date: 2024-07-06 Pat Name: CATA ESCOBEDO Department: 5003 Room: Gender: Female Singe Machine Operator: : [id number] Requested By: Order Number: [id number] Arianna MD: Mimi Boateng Measurements Intervals [place] Rate: 59 P: 59 [place]: 113 QRS: 56 QRSD: 85 T: 75 QT: 430 QTc: 428 Interpretive Statements SINUS BRADYCARDIA WITH SINUS ARRHYTHMIA WITH SHORT [place] INTERVAL POSSIBLE RIGHT VENTRICULAR CONDUCTION DELAY [RSR (QR) IN V1/V2] Electronically Signed On 07-07-2024 7:33:52 IT TRAINEE by Mimi Boateng Fermin Steve MD ECG ORDERABLES INTERFACE SYSTEM Refer to clinic/hospital department documented in this encounter Visit Diagnoses Diagnosis Chest pain with low risk for cardiac etiology- Primary Vasovagal syncope Syncope and collapse Nausea and vomiting, unspecified vomiting type documented in this encounter Administered Medications Inactive Administered Medications - up to 3 most recent administrations Medication Order MAR Action Action Date Dose Rate Site aluminum - magnesium - simethicone (MYLANTA) 200-200-20 mg/5 mL oral suspension 20 mL 20 mL, Oral, ONE TIME ONLY, 1 dose, On 07/07/24 at 0130, Routine Given 07/07/2024 1:46 AM IT TRAINEE 20 mL dextrose 5 % in water 250 mL flush bag 25 mL 25 mL, IV, SEE ADMIN INSTRUCTIONS, Starting on 07/06/24 at 2307, Until 07/07/24 at 0447, Routine diphenhydrAMINE (BENADRYL) injection 50 mg 50 mg, IV, ONE TIME ONLY, 1 dose, On 07/06/24 at 2345, Routine Given 07/07/2024 12:05 AM IT TRAINEE 50 mg lidocaine (XYLOCAINE) 2 % viscous oral solution 10 mL 10 mL, Oral, ONE TIME ONLY, 1 dose, On 07/07/24 at 0130, Routine Given 07/07/2024 1:47 AM IT TRAINEE 10 mL morphine 4 mg/mL injection 4 mg 4 mg, IV, ONE TIME ONLY, 1 dose, On 07/07/24 at 0000, Routine Given 07/07/2024 12:06 AM IT TRAINEE 4 mg morphine 4 mg/mL injection 4 mg 4 mg, IV, ONE TIME ONLY, 1 dose, On 07/07/24 at 0130, Routine Given 07/07/2024 1:43 AM IT TRAINEE 4 mg pantoprazole (PROTONIX) 40 mg in sodium chloride 0.9% 10 mL injection 40 mg, IV, ONE TIME ONLY, 1 dose, On 07/06/24 at 2345, Routine, For vial+diluent: 10 mL NS is needed to reconstitute pantoprazole vial. For doses less than 40 mg Epic may default less than 10 mL NS. Pharmacist to change NS dispense amount to 10 mL., Indication: Stress ulcer prophylaxis Given 07/07/2024 12:08 AM IT TRAINEE 40 mg prochlorperazine (COMPAZINE) injection 10 mg 10 mg, IV, ONE TIME ONLY, 1 dose, On 07/06/24 at 2345, Routine Given 07/07/2024 12:04 AM IT TRAINEE 10 mg sodium chloride 0.9 % flush bag 25 mL 25 mL, IV, SEE ADMIN INSTRUCTIONS, Starting on 07/06/24 at 2307, Until 07/07/24 at 0447, Routine sodium chloride 0.9% bolus solution 1,000 mL 1,000 mL, IV, ONE TIME ONLY, 1 dose, On 07/06/24 at 2345, at 2,000 mL/hr, Administer over 30 Minutes, Routine New Bag 07/06/2024 11:56 PM IT TRAINEE 1,000 mL 2000 mL/hr sodium chloride 0.9% infusion IV, at 100 mL/hr, CONTINUOUS, Starting on 07/06/24 at 2345, Until 07/07/24 at 0447, Routine New Bag 07/07/2024 1:05 AM IT TRAINEE 100 mL/hr sodium chloride flush injection 5 mL 5 mL, IV, EVERY 12 HOURS (BlD), First dose on 07/06/24 at 2315, Until Discontinued, Routine Given 07/06/2024 11:15 PM IT TRAINEE 5 mL sodium chloride flush injection 5 mL 5 mL, IV, SEE ADMIN INSTRUCTIONS, Starting on 07/06/24 at 2307, Until 07/07/24 at 0447, Routine documented in this encounter Active and Recently Administered Medications Times are shown in IT TRAINEE. Scheduled Medication Order 07/05/2024 07/06/2024 07/07/2024 aluminum - magnesium - simethicone (MYLANTA) 200-200-20 mg/5 mL oral suspension 20 mL (COMPLETED)(Linked Group 1) 20 mL, Oral, ONE TIME ONLY, 1 dose, On 07/07/24 at 0130, Routine 0146 (Given - Provid er: Lacey Bryson RN) dextrose 5 % in water 250 mL flush bag 25 mL 25 mL, IV, SEE ADMIN INSTRUCTIONS, Starting on 07/06/24 at 2307, Until 07/07/24 at 0447, Routine diphenhydrAMINE (BENADRYL) injection 50 mg (COMPLETED) 50 mg, IV, ONE TIME ONLY, 1 dose, On 07/06/24 at 2345, Routine 0005 (Given - Provid er: Lacey Bryson RN) lidocaine (XYLOCAINE) 2 % viscous oral solution 10 mL (COMPLETED)(Linked Group 1) 10 mL, Oral, ONE TIME ONLY, 1 dose, On 07/07/24 at 0130, Routine 0147 (Given - Provid er: Lacey Bryson RN) morphine 4 mg/mL injection 4 mg (COMPLETED) 4 mg, IV, ONE TIME ONLY, 1 dose, On 07/07/24 at 0000, Routine 0006 (Given - Provid er: Lacey Bryson RN) morphine 4 mg/mL injection 4 mg (COMPLETED) 4 mg, IV, ONE TIME ONLY, 1 dose, On 07/07/24 at 0130, Routine 0143 (Given - Provid er: Lacey Bryson RN) pantoprazole (PROTONIX) 40 mg in sodium chloride 0.9% 10 mL injection (COMPLETED) 40 mg, IV, ONE TIME ONLY, 1 dose, On 07/06/24 at 2345, Routine, For vial+diluent: 10 mL NS is needed to reconstitute pantoprazole vial. For doses less than 40 mg Epic may default less than 10 mL NS. Pharmacist to change NS dispense amount to 10 mL., Indication: Stress ulcer prophylaxis 0008 (Given - Provid er: Lacey Bryson RN) prochlorperazine (COMPAZINE) injection 10 mg (COMPLETED) 10 mg, IV, ONE TIME ONLY, 1 dose, On 07/06/24 at 2345, Routine 0004 (Given - Provid er: Lacey Bryson RN) sodium chloride 0.9 % flush bag 25 mL 25 mL, IV, SEE ADMIN INSTRUCTIONS, Starting on 07/06/24 at 2307, Until 07/07/24 at 0447, Routine sodium chloride 0.9% bolus solution 1,000 mL (COMPLETED) 1,000 mL, IV, ONE TIME ONLY, 1 dose, On 07/06/24 at 2345, at 2,000 mL/hr, Administer over 30 Minutes, Routine 2356 (New Bag - Provider: Lacey Bryson RN) 0026 (Stopped - Provider: Lacey Bryson RN) sodium chloride flush injection 5 mL 5 mL, IV, EVERY 12 HOURS (BlD), First dose on 07/06/24 at 2315, Until Discontinued, Routine 2315 (Given - Provider: Lacey Bryson RN) sodium chloride flush injection 5 mL 5 mL, IV, SEE ADMIN INSTRUCTIONS, Starting on 07/06/24 at 2307, Until 07/07/24 at 0447, Routine Continuous Medication Order 07/05/2024 07/06/2024 07/07/2024 sodium chloride 0.9% infusion IV, at 100 mL/hr, CONTINUOUS, Starting on 07/06/24 at 2345, Until 07/07/24 at 0447, Routine 0105 (New Bag - Prov ider: Lacey Bryson RN)0235 (Stopped - Provider: Lacey Bryson RN) Linked Groups Order Group 1: aluminum - magnesium - simethicone (MYLANTA) 200-200-20 mg/5 mL oral suspension 20 mL (COMPLETED)Jump to med 20 mL, Oral, ONE TIME ONLY, 1 dose, On 07/07/24 at 0130, Routine And lidocaine (XYLOCAINE) 2 % viscous oral solution 10 mL (COMPLETED)Jump to med 10 mL, Oral, ONE TIME ONLY, 1 dose, On 07/07/24 at 0130, Routine documented in this encounter Care Teams Pasting Machine Operator Relationship Specialty Start Date End Date Geo Duff MD [facility] [address] PCP - General Family Practice 07/07/24 documented as of this encounter
--- OUTSIDE RECORDS SUMMARY | 2024-07-30 14:16 | XMS_ITS | Encounter Summary ---
Author Organization [employer] Address [address] [place] [address] Care Team Providers Care Oil Prospecting Observer Name Role Phone Dona Beyer MD Primary Care Provider [phone] Encounter Details Date Type Department Care Team [...] on filedocumented in this encounter Care Teams Oil Prospecting Observer Relationship Specialty Start Date End Date Dona Beyer MD PCP - General Shoe Reconditioner 05/14/20 07/06/24 documented as of this encounter
--- OUTSIDE RECORDS SUMMARY | 2024-07-30 14:16 | XMS_ITS | Encounter Summary ---
Author Organization [employer] Address [address] [place] [address] Care Team Providers Care Life Insurance Sales Name Role Phone Dona Beyer MD Primary Care Provider [phone] Encounter Details Date Type Department Care Team (Late st Contact Info) Description 07/26/2023 External Device Data [facility] ABSTRACTION Provider, Abstract [...] on filedocumented in this encounter Care Teams Life Insurance Sales Relationship Specialty Start Date End Date Dona Beyer MD PCP - General Corporate Strategist 05/14/20 07/06/24 documented as of this encounter
--- OUTSIDE RECORDS SUMMARY | 2024-07-30 14:16 | XMS_ITS | Encounter Summary ---
Author Organization [employer] Address [address] [place] [address] Care Team Providers Care Finishing Wire Sawyer Name Role Phone Dona Beyer MD Primary Care Provider [phone] Encounter Details Date Type Department Care Team (Late st Contact Info) Description 10/03/2023 External Device Data [facility] ABSTRACTION Provider, Abstract [...] on filedocumented in this encounter Care Teams Finishing Wire Sawyer Relationship Specialty Start Date End Date Dona Beyer MD PCP - General Customer Orders Clerk 05/14/20 07/06/24 documented as of this encounter
--- OUTSIDE RECORDS SUMMARY | 2024-07-30 14:16 | XMS_ITS | Encounter Summary ---
Author Organization [facility] Address [address] [place] [address] Care Team Providers Care [place] Home Demonstrator Name Role Phone Unavailable Primary Care Provider Unavailabl e Encounter Details Date Type Department Care Team (Late st Contact Info) Description 12/20/2019 7:42 PM CDT Hospital [facility] Janes Yoo MD [address] [place], [place] [id number] Discharge Disposition: Home or Self Care Social [...] Discharge Disposition Disposition Code Departure Means Destination Home or Self Care documented in this encounter Plan of Treatment Not on file documented as of this encounter Visit Diagnoses Not on filedocumented in this encounter
--- OUTSIDE RECORDS SUMMARY | 2024-07-30 14:16 | XMS_ITS | Encounter Summary ---
Author Organization [employer] Address [address] [place] [address] Care Team Providers Care Return To Vendor Name Role Phone Dona Beyer MD Primary Care Provider [phone] Encounter Details Date Type Department Care Team (Late st Contact Info) Description 11/03/2023 External Device Data [facility] ABSTRACTION Provider, Abstract [...] on filedocumented in this encounter Care Teams Return To Vendor Relationship Specialty Start Date End Date Dona Beyer MD PCP - General Resident Care Director 05/14/20 07/06/24 documented as of this encounter
--- OUTSIDE RECORDS SUMMARY | 2024-07-30 14:16 | XMS_ITS | Encounter Summary ---
Author Organization [employer] Address [address] [place] [address] Care Team Providers Care Motor Builder Winder Name Role Phone Dona Beyer MD Primary Care Provider [phone] Encounter Details Date Type Department Care Team (Late st Contact Info) Description 03/26/2024 External Device Data [facility] ABSTRACTION Provider, Abstract [...] on filedocumented in this encounter Care Teams Motor Builder Winder Relationship Specialty Start Date End Date Dona Beyer MD PCP - General Furnace Room Supervisor 05/14/20 07/06/24 documented as of this encounter
--- OUTSIDE RECORDS SUMMARY | 2024-07-30 14:16 | XMS_ITS | Encounter Summary ---
Author Organization [employer] Address [address] [place] [address] Care Team Providers Care Media Traffic Manager Name Role Phone Dona Beyer MD Primary Care Provider Encounter Details Date Type Department Care Team (Late st Contact Info) Description 09/10/2023 External Device Data ST[facility] ABSTRACTION Provider, Abstract [...] on filedocumented in this encounter Care Teams Media Traffic Manager Relationship Specialty Start Date End Date Dona Beyer MD PCP - General Streetcar Repairer Helper 05/14/20 07/06/24 documented as of this encounter
--- OUTSIDE RECORDS SUMMARY | 2024-07-30 14:16 | XMS_ITS | Encounter Summary ---
Author Organization [facility] Address [address] [place] [address] Care Team Providers Care Test Desk Trouble Locator Name Role Phone Unavailable Primary Care Provider Unavailabl e Encounter Details Date Type Department Care Team (Late st Contact Info) Description 12/20/2019 Orders Only [facility], Provider Not In Social History Tobacco Use Types Packs/Day Years [...] Procedure Name Priority Date/Time Associated Diagnosis Comments RAPID SARS-COV-2 BY PCR Routine 12/20/2019 7:48 PM CDT documented in this encounter Results * Rapid SARS-CoV-2 by PCR (12/20/2019 7:48 PM CDT) Pathologist [facility] Source, 2019 Novel Coronavirus (SARS-CoV-2) NASOPHARYNGEAL SWAB [facility] Rapid SARS-COV-2 by PCR NOT DETECTED NOTD [facility] Comment: SARS-CoV-2 nucleic acid has not been detected. ??Testing was performed using the [employer] Xpert Xpress SARS-CoV-2 RT-PCR assay that has been given Emergency Use Authorization (EUA) by the [place] Food and Drug Administration (FDA). ??These results are considered definitive and do not need to be confirmed by another method. Isolation Guidelines Do not use this test result as the sole decision-maker for discontinuing isolation, de-escalate to NonCOVID-19, droplet and contact isolation per the following guidelines: If a patient has met criteria below and tested negative for COVID-19, COVID isolation precautions may be de-escalated to Droplet and Contact precautions. The following criteria must be met before a patient can be removed from isolation At least 3 days (72 hours) since resolution of fever without the use of fever-reducing medications AND Significant improvement in respiratory symptoms (e.g., cough, shortness of breath) AND Negative COVID-19 Test ??This removes the obligation for N95 masks and eyewear protection. ??The rationale to continue Droplet and Contact precautions is to protect both patient and HCW from any other virus causing the patient's illness Check COVID-19 Toolkit for most up to date information: https://www.[facility].com/cov id-19-info/ [facility] 12/20/2019 7:48 PM CDT 12/20/2019 9:24 PM CDT Provider Not In System [facility] MICRO-GEN ORDERABLES Performing Organization Address City/State/[facility] Co de Phone Number [facility] - [facility] [address] [address] documented in this encounter Visit Diagnoses Not on filedocumented in this encounter
--- OUTSIDE RECORDS SUMMARY | 2024-07-30 14:16 | XMS_ITS | Encounter Summary ---
Author Organization [employer] Address [address] [place] [address] Care Team Providers Care Birth Attendant Name Role Phone Dona Beyer MD Primary Care Provider [phone] Encounter Details Date Type Department Care Team (Late st Contact Info) Description 02/27/2024 External Device Data ST[facility] ABSTRACTION Provider, Abstract [...] on filedocumented in this encounter Care Teams Birth Attendant Relationship Specialty Start Date End Date Dona Beyer MD PCP - General Front Office Spec 05/14/20 07/06/24 documented as of this encounter
--- OUTSIDE RECORDS SUMMARY | 2024-07-30 14:16 | XMS_ITS | Encounter Summary ---
Author Organization [employer] Address [address] [place] [address] Care Team Providers Care Pharmacy Manager Name Role Phone Dona Beyer MD Primary Care Provider [phone] Encounter Details Date Type Department Care Team [...] on filedocumented in this encounter Care Teams Pharmacy Manager Relationship Specialty Start Date End Date Dona Beyer MD PCP - General Admissions Manager Rn 05/14/20 07/06/24 documented as of this encounter
--- OUTSIDE RECORDS SUMMARY | 2024-07-30 14:16 | XMS_ITS | Encounter Summary ---
Author Organization [employer] Address [address] [place] [address] Care Team Providers Care Nuclear Equipment Sales Engineer Name Role Phone Isis Duff MD Primary Care Provider [phone] Reason for Visit * Reason Comments Vomiting Pt comes in for vomi ting 9 hours today. Pt was here yesterday and felt good at DC but after a little vomiting came back * Auth/Cert (Routine) Specialty Diagnoses / Procedures Referred By María Elena rand Referred To Contact Emergency Medicine [facility] Emergency Department [address] [place] [phone] Referral ID Status Reason Start Date Expiration Date Visits Re quested Visits Authorized [id number] 1 1 Encounter Details Date Type Department Care Team (Late st Contact Info) Description 07/08/2024 3:48 AM ROLL SHOP SUPERVISOR - 07/08/2024 4:13 PM [facility] Emergency [address] [phone] Matthew Steve MD [address] [place] [id number] Jagruti Lim MD [address] [place] [phone] Anabel Philip MD [address] [place] [phone] Intractable nausea and vomiting Discharge Disposition: Home or Self Care Social [...] Comments Blood Pressure 111/63 07/08/2024 12:00 PM ROLL SHOP SUPERVISOR Pulse 100 07/08/2024 12:00 PM ROLL SHOP SUPERVISOR Temperature 36.9 ??C (98.4 ??F) 07/08/2024 12:[address] Respiratory Rate 18 07/08/2024 12:00 PM ROLL SHOP SUPERVISOR Oxygen Saturation 100% 07/08/2024 12:00 PM ROLL SHOP SUPERVISOR Inhaled Oxygen Concentration - - Weight 63.5 kg (140 lb) 07/08/2024 6:46 AM ROLL SHOP SUPERVISOR Height 154.9 cm (5' 1 ) 07/08/2024 6:46 AM ROLL SHOP SUPERVISOR Body Mass Index 26.45 07/08/2024 6:46 AM ROLL SHOP SUPERVISOR documented in this encounter Discharge Summaries * Anabel Philip MD - 07/08/2024 3:20 PM CST [facility] Adult Hospitalist Discharge Summary Cata Ibrahim 39 y.o. female 1985 CSN: [id number] Date of Admission: 07/08/2024 Date of Discharge: 07/08/2024 Discharging Physician: Anabel Philip MD LOS: 1 day PCP: Isis Duff MD Activity: activity as tolerated. Dispo: home Diet: DIET GENERAL Effective Now Code Status at Discharge: Full Code Wound Care: None needed Discharge Diagnoses: Intractable nausea and vomiting Possible cannabinoid hyperemesis syndrome Marijuana use Epigastric pain Dehydration High anion gap metabolic acidosis Hypokalemia Hypophosphatemia Anxiety and depression Bipolar disorder, unspecified History of PSVT (paroxysmal supraventricular tachycardia) Overweight with body mass index (BMI) of 25 to 25.9 in adult CONSULTATIONS: IP CONSULT TO PHARMACY - MEDICATION HISTORY Significant Diagnostic Studies This Admission: US ABDOMEN LIMITED Result Date: 07/08/2024 US ABDOMEN LIMITED DATE: 07/08/2024 7:30 AM HISTORY: 39-year-old female with nausea and vomiting TECHNIQUE: Limited right upper quadrant ultrasound performed by an research technologist in multipleprojections. COMPARISON: None FINDINGS: PANCREAS: Portions of the [...] hepatic masses. 2. Unremarkable gallbladder. DICTATION LOCATION: [address] ABDOMEN PELVIS W CONTRAST Result Date: 07/08/2024 CT ABDOMEN AND PELVIS WITH IV CONTRAST DATE: 07/08/2024 5:07 AM HISTORY: Abdominal pain, acute, nonlocalized, worse epigastric and LUQ areas TECHNIQUE: CT examination abdomen and pelvis is performed with contiguous axial slices during intravenous infusion of contrast. Sagittal and coronal reconstructions are performed by the technologist. Contrast administered: IOPAMIDOL 61 % INTRAVENOUS SOLUTION(MULTI-DOSE BULK PACK) Given:100 mL COMPARISON: None The [...] 2. No acute changes. DICTATION LOCATION: Location - [facility] Summary of presentation per admitting H&P/Hospital Course: Cata Ibrahim, 39 y.o. year old lady with medical history significant for anxiety, depression, bipolar disorder, GERD, marijuana use and a history of SVT.. She came into the emergency room becauseof intractable nausea vomiting, epigastric, left upper quadrant pain since 6 PM on 07/07/2024. She described the pain as sharp pain, nonradiating. No aggravating or elevating factors. She rated the pain as 6-8 out of 10 prior to the admission. She also reported epigastric pain and lower chest pain. She denied palpitations, syncope, near syncope, fever, chills, cough, diarrhea. Last bowel movement was the day before admission. She was hospitalized to [facility] on 03/30/2024 for intractable nausea vomiting, subsequentlyhad a EGD on 04/01/[address] chest abdomen, right upper quadrant ultrasound scan, brain MRI were negative. HIDA scan negative. She was treated symptomatically and subsequently discharged on 04/09/2024. Workup in the emergency room: Blood pressure 107/66, WBC 12.9, potassium 3.3, bicarb 17, anion gap 18, lipase 20, magnesium 2.0, procalcitonin 0.03, CRP 7.4. CT abdominal and pelvis showed liver and spleen normal without focal deficit. The gallbladder is normally distended. Pancreas and adrenal glands are unremarkable. There is a mild wall thickening in the colon which is nondistended. No acute changes. ER Rx: Benadryl 50 mg, lorazepam 2 mg, morphine 4 mg IV, Protonix 40 mg, Compazine 10 mg IV, fluid bolus 1 L and is being admitted for further evaluation. EKG showed normal sinus rhythm, heart rate of 63, short CT interval, QTc 445. Please see history and physical for additional information pertaining to initial presentation/management. She was managed supportively with antiemetics, IV fluids, graded p.o. intake. There was no recurrence of vomiting during her hospitalization. Electrolytes were replaced as needed. She tolerated the full liquid diet prior to discharge. She was seen at her bedside on the day of discharge. She had no new complaints and was agreeable tobeing discharged and advancing diet as tolerated. Discharge plan was discussed with patient's nurse and care management team. Discharge Exam: BP 111/63 (BP Location: Left arm, Patient Position (BP): Supine) Pulse 100 Temp 98.4 ??F (36.9 ??C) (Oral) Resp 18 Ht 5' 1 (1.549 m) Wt 63.5 kg (140 lb) SpO2 100% BMI 26.45 kg/m?? Physical Exam: General: Alert, cooperative, no distress, appears stated age HEENT: Normocephalic, without obvious abnormality, atraumatic. No scleral icterus or conjunctival pallor. Normal appearance of both ears externally. Nares appear normal. Moist oral mucosa Neck: Supple Lungs: Clear to auscultation bilaterally Heart: S1, S2 heard, no click, rub or gallop Abdomen: Soft, non-tender. Bowel sounds normal Extremities: extremities normal, atraumatic, no cyanosis or edema Discharge medications and new prescriptions: Medication List START taking these medications potassium phosphate, monobasic 500 mg soluble tablet Commonly known as: K-PHOS Take 1 Tablet (500 mg) by mouth 4 times daily for 3 days. Signed by: Dr. Anthony Philip Quantity: 12 Tablet Refills: 0 CHANGE how you take these medications omeprazole 40 mg Capsule, Delayed Release(E.C.) Commonly known as: PriLOSEC What changed: when to take this reasons to take this Take 1 Capsule (40 mg) by mouth daily. Signed by: Dr. Anthony Philip Quantity: 30 Capsule Refills: 0 CONTINUE taking these medications ARIPiprazole 2 mg tablet Commonly known as: ABILIFY Take 2 mg by mouth daily. Refills: 0 Caplyta 21 mg Capsule Take 21 mg by mouth daily. Refills: 0 Generic drug: lumateperone clonazePAM 0.5 mg Tablet Commonly known as: KlonoPIN Take 0.5 mg by mouth 3 times daily. Refills: 0 DULoxetine 60 mg Capsule, Delayed Release(E.C.) Commonly known as: CYMBALTA Take 60 mg by mouth daily. Refills: 0 lamoTRIgine 100 mg tablet Commonly known as: LaMICtal Take 50 mg by mouth daily. Refills: 0 prochlorperazine maleate 10 mg tablet Commonly known as: COMPAZINE Take 1 Tablet (10 mg) by mouth every 6 hours as needed for Nausea. Signed by: Dr. Eloy Steve Quantity: 15 Tablet Refills: 0 Simpesse 0.15 mg-30 mcg (84)/10 mcg (7) Tablet, Dose Pack, 3 Months TAKE 1 TABLET BY MOUTH DAILY Signed by: Dr. Lacey Bazzi Quantity: 91 Tablet Refills: 0 Generic drug: L-Norgest&E estradiol-E Estrad traZODone 50 mg tablet Commonly known as: DESYREL Take 50 mg by mouth daily at bedtime. Refills: 0 verapamiL 80 mg tablet Commonly known as: CALAN Take 80 mg by mouth daily. Refills: 0 Where to Get Your Medications These medications were sent to [id number] - [place], [place] - [address] AT [facility] [address] (Booster Pack) & [facility] [address], [place] [address] Hours: 24-hours omeprazole 40 mg Capsule, Delayed Release(E.C.) potassium phosphate, monobasic 500 mg soluble tablet Labs from this Hospitalization Needing Follow Up: Discharge Lab Data: Lab Results Component Value Date WBC 12.9 (H) 07/08/2024 HGB 14.4 07/08/2024 HCT 42.3 07/08/2024 PLT 413 (H) 07/08/2024 NA 136 07/08/2024 CL 101 07/08/2024 K 3.3 (L) 07/08/2024 CO2 17 (L) 07/08/2024 BUN 8 07/08/2024 CREAT 0.82 07/08/2024 GLUCOSE 138 (H) 07/08/2024 AST 29 07/08/2024 ALT 31 07/08/2024 CRP 7.4 (H) 07/08/2024 Discharge Condition: stable. Discharge instructions/follow-up: Take all medications as prescribed. Follow-up with your primary care physician (PCP) Isis Duff MD in 7 days. This patient was admitted as an inpatient due to the expectation that their hospital care would cross 2 or more midnights. The patient had an unanticipated, rapid recovery and will be discharged after receiving hospital care that crossed only 1 midnight. Based upon the patient meeting the initial 2Midnight expectation, this meets CMS's exception criteria and remains appropriate for an inpatient admission. Time spent on this discharge activity: More than 30 minutes. Discharge medication reconciliation was reviewed. She is at high risk of readmission within 7 days, because of her multiple comorbidities. Attempts were made as able to optimize medications, limit polypharmacy, while giving consideration to guidelines, standard treatments, risks, benefits and alternatives. This note was transcribed using Leondra music Speech Recognition software. All attempts were made to be precise and correct. The document has also been reviewed for grammatical and spelling errors. However some errors may have been inadvertently missed. If there are any questions, concerns, major errors or need for clarification, please contact the author. Anabel Philip MD [facility] SHOP SUPERVISOR documented in this encounter Discharge Instructions * Discharge Instructions* Anabel Philip MD - 07/08/2024 3:17 PM ROLL SHOP SUPERVISOR Images from the original note were not included. Your discharging physician is Anabel Philip MD and may be reached at [phone] for any questionsor concerns until you see your doctor. DISCHARGE INSTRUCTIONS/FOLLOW-UP Take all medications as prescribed. Follow-up with your primary care physician (Isis Duff MD) in 7 days. If you need to follow up or establish care with a primary doctor, director commercial sales, or MEDICAL LABORATORY TECHNICAL OFFICER provider,you can make an appointment online using joiz Scheduling. Go to [employer] Click the First Available Scheduling link in the top right corner. (See below) Choose [facility], pediatric[facility] or women???s health to make an appointment. In most cases, you can be seen in 1-2 business days. New patients are able to choose their new health provider based on geography and their timely availability. SIGNS AND SYMPTOMS TO REPORT Contact your health care provider if you experience any of the following symptoms: any numbness or tingling, increased dizziness or lightheadedness, increase in pain, persistent bleeding or drainage,chest pain, difficulty breathing, swelling in your hands, feet, ankles, abdominal pain, temperature greater than 100.4, or unable to keep food or fluids down or any other concerning symptoms. Smoking Exposure: Azra encourages all patients to decrease risks associated with smoking and second hand smoke exposure. If you smoke you are advised to quit. Ask your health care provider for advice if you need assistance to stop smoking. Avoid second-hand smoke exposure and do not let people smoke in your home. ACTIVITY Your activity level is: no restrictions and increase activity as tolerated. DIET Your diet is: DIET FAT CONTROL Low Fiber, This note was transcribed using Leondra music Speech Recognition software. All attempts were made to be precise and correct. The document has also been reviewed for grammatical and spelling errors. However some errors may have been inadvertently missed. If there are any questions, concerns, major errors or need for clarification, please contact the author. SHOP SUPERVISOR * Attachments The following attachments cannot be sent through Care Everywhere. * BMI (Body Mass Index) ([place]) * Omeprazole Delayed Release Oral Tablet (OMEPRAZOLE DELAYED RELEASE TABLET - ORAL) ([place]) * Potassium Phosphate/Sodium Phosphate - Monobasic Oral Tablet (POTASSIUM/SODIUM PHOSPHATE - ORAL) ([place]) documented in this encounter Medications at Time of Discharge Medication Sig Dispensed Refills Start Date End Date clonazePAM 0.5 mg tablet (KlonoPIN) Take 0.5 mg by mouth 3 times daily. lumateperone (Caplyta) 21 mg Capsule Take 21 mg by mouth daily. verapamiL (CALAN) 80 mg tablet Take 80 mg by mouth daily. lamoTRIgine (LaMICtal) 100 mg tablet Take 50 mg by mouth daily. omeprazole (PriLOSEC) 40 mg Capsule, Delayed Release(E.C.) Take 1 Capsule (40 mg) by mouth daily. 30 Capsule 07/08/2024 prochlorperazine maleate (COMPAZINE) 10 mg tablet Take [...] 50 mg by mouth daily at bedtime. potassium phosphate, monobasic (K-PHOS) 500 mg soluble tablet Take 1 Tablet (500 mg) by mouth 4 times daily for 3 days. 12 Tablet 07/08/2024 07/11/2024 documented as of this encounter Progress Notes * Lacey De La Vega RD - 07/08/2024 1:00 PM CST Images from the original note were not included. Clinical Dietitian Note [facility] Tha Ibrahim is a 39 y.o. female patient. Nutrition Diagnosis: Inadequate oral intake related to decreased appetite as evidenced by patient/family comments. Intervention/Recommendations: 1. Recommend continue to provide General Diet. Goals: 75-100% of meals Monitor/Evaluation: 1. Continue to monitor: Food and Nutrient Intake, Anthropometrics, Biochemical Data, and Nutrition-Focused Physical Findings 2. Follow up every 4-7 days and as needed. Nutrition Assessment: Reason for Initial Assessment: Risk Screen/MST: MST 1 Diet: DIET GENERAL Soft, Effective Now Subjective Findings: 07/08- Pt is seen by RD today for MST 1 of decreased appetite. Pt reports decreased appetite since 3 days ago, but prior to this was eating normally; reports consuming 3-4 meals per day. Pt endorses some nausea but denies vomiting since yesterday. Pt reports that her abdominal pain has decreased but is still feeling flank pain. Pt was very groggy at time of interview and unable to progress further with interview, unable to complete NFPE at this time. Current PO intake: no documentation. Weight During the past 2 weeks, weight has: [] Decreased [] Increased [x] Stayed the same [] Unsure 2. Food Intake Compared to normal intake, Pt reports intake: [] Unchanged [] More than usual [x] Less than usual Patient reports now taking: [x] Normal food but <usual amount [] Little solid food [] Only liquids [] Only nutrition supplements [] Very little of anything [] Only TF or TPN [] Normal food, > to usual amount 3. Symptoms Patient reports the following symptoms that have kept them from eating adequately in the past 2 weeks: [] No problems eating [x] No appetite,did not feel like eating [x] Vomiting [x] Nausea [] Diarrhea [] Constipation [] Dry mouth [] Mouth sores [] Smells bother me [] Feel full quickly [] Things taste funny- no taste [] Problems swallowing [] Fatigue [x] Pain [] Other 4. Activities and Function Over the past month, I would generally rate my activity as: [] Normal with no limitations [] Not normal energy but with fairly normal activities [x] Low energy but in bed or chair less than half the day [] Very low energy-spend most of the day in bed or chair [] Bedridden, rarely out of bed Height: 5' 1 (154.9 cm) (07/08/24645) Weight: 63.5 kg (140 lb) (07/08/24645) Weight Method: Stated (07/08/24645) IBW +/- 10%: 105 lb Body mass index is 26.45 kg/m??. Weight Changes: Current weight is 140 lb. Per EMR, weight was 140 lb on 10/18/23, no weight loss. Wt Readings from Last 10 Encounters: 07/08/24 63.5 kg (140 lb) 07/06/24 63.5 kg (140 lb) 04/07/22 55.8 kg (123 lb) 03/18/22 52.2 kg (115 lb) 05/14/20 47.2 kg (104 lb) Energy Intake and Weight Assessment Percentage of Energy: Other (see comments) (poor intake for 3 days; previously adequate) (07/08/24 1200) Percentage of Weight Loss: No history of significant wt loss (07/08/24 1200) Estimation of Nutrition Needs Based on actual body weight of 63.5 kg. Calories: 5110-6992 (22-27 kcal/kg) Protein: 64-76 gm (1.0- grams/kg) Fluid: 9433-6337 ml (1 ml/kcal) Nutrition Focused Physical Findings: Edema: none indicated Last Bowel Movement (mm/dd/yyyy): 07/07/24 (07/08/24 0651) Wounds/Potential for Skin Breakdown: intact Madhu Score: 20 (07/08/24 0730) Food Allergies: No known food allergies Subcutaneous Fat Assessment Orbital: Flattened fat pads but not depressed (mild) (07/08/24 1200) Facial cheeks (buccal pads): Full, round, filled out (no findings) (07/08/24 1200) Biceps and triceps: Ample or thick fold of fat tissue between fingers (no findings) (07/08/24 1200) Ribs - lower back, mid axillary line: Unable to assess (07/08/24 1200) Buttocks (infant/child): Not applicable (07/08/241199) Subcutaneous Fat Loss Assessment: No findings (07/08/24 1200) Muscle Wasting Assessment Temporal: Slight depression or shadowing (mild) (07/08/24 1200) Clavicle: Unable to assess (07/08/241199) Shoulder (deltoid muscle): Unable to assess (07/08/24 1200) Scapula: Unable to assess (07/08/24 1200) Interosseous: Unable to assess (07/08/24 1200) Thigh (quadriceps muscle): Unable to assess (07/08/24 1200) Knee: Unable to assess (07/08/24 1200) Calf (gastrocnemius muscle): Unable to assess (07/08/24 1200) Muscle Wasting Assessment: Unable to assess (07/08/24 1200) Past Medical History: Past Medical History: Diagnosis Date Acid reflux Bipolar disorder SUSAN (generalized anxiety disorder) Pertinent Medication: Cymbalta, lovenox, protonix Labs: Recent Labs 07/06/24 2355 07/08/24 0408 GLUCOSE 145* 138* BUN 7 8 CREAT 0.76 0.82 GFR >60 >60 NA 134* 136 K 3.9 3.3* CL 99 101 CO2 16* 17* ANIONGAP 19* 18* CA 9.8 9.7 MG -- 2.0 PO4 -- 1.1* ALBUMIN 4.5 4.6 ALKPHOS 85 93 ALT 20 31 AST 21 29 BILITOTAL 0.3 0.3 LIPASE 22 20 Lab Results Component Value Date/Time HGBA1C 5.5 07/06/2024 11:[address], LD Time spent: 15 minutes SHOP SUPERVISOR * Perla Curtis - 07/08/2024 8:32 AM CST Pharmacy Medication History Pharmacy was consulted to obtain a medication history on Cata Ibrahim [id number] CSN: [id number]. I spoke with patient to verify medications. Verified medications with Dispense Report/ PDMP. Changes and updates made to CREAM MAKER list. verified all medications (strength and directions) with patient. Most of these medications do not match up with what dispense report states. Per patient this is something she has discussed with her PCP and this is how they have me taking my medications . Added Medications: Lamictal 100mg take ?? tab (50mg) po qd (per patient) Changed Medications: Abilify 2mg po qd (added directions per patient) Clonazepam Oral ? Clonazepam 0.5mg tid (per patient/dispense report) Cymbalta 50mg tk 1 c po qd ? take 1 capsule by mouth every day Prilosec 20mg ? Prilosec 40mg po qd prn (per patient) Trazodone 50mg po hs (added directions) Verapamil 80mg take ?? tab (40mg) po qd ? 1 tab (80mg) po qd (per patient) Discontinued Medications None Information source(s): patient, dispense report Preferred pharmacy: [id number] - [place], [place] - [address] [facility] & [place] [address] [address] [facility] [phone] Allergies (medication, reaction type, time period): Allergies Allergen Reactions Latex Hives, Rash and Swelling Metoclopramide Blood Disorder Patient Active Problem List Diagnosis Code History of cervical dysplasia 2019, hx LEEP 2019 Z87.410 Oral contraceptive use - 3mo continuous Z30.41 History of vulvar vestibulitis, responds well to Cymbalta Z98.890, Z87.42 Anxiety and depression F41.9, F32.A Bipolar disorder, unspecified F31.9 Marijuana use F12.90 Intractable nausea and vomiting R11.2 Epigastric pain R10.13 Hypokalemia E87.6 Increased anion gap metabolic acidosis E87.29 History of PSVT (paroxysmal supraventricular tachycardia) Z86.79 Intractable vomiting R11.10 Dehydration E86.0 HOSPICE PHYSICIAN reviewed for controlled medications filled in the last year: No Reviewed recent use of Antibiotics or steroids (If yes, list indication, start and end dates): No Anticoagulants (blood thinners): No Aspirin: No Injections (insulin?): No Inhalers: No Eye or ear drops: No Topical products: No Other PRN (as needed) medications: Yes Vitamins: No Herbal supplements: No Other OTC medication(s): Yes Samples from the doctor's office: No Prescription(s) you have not started yet: No Naloxone: No See CREAM MAKER list in EPIC for complete list of medications and the time medications were last taken. Summary (for data collection purposes) Number of CREAM MAKER Meds Before Interview: 9 Number of CREAM MAKER Meds Added: 1 Number of CREAM MAKER Meds Flagged/Removed: 0 Number of CREAM MAKER Meds Modified: 5 Number of High Risk CREAM MAKER Meds: 0 Number of CREAM MAKER Meds After Interview: 10 Thank you, Perla Curtis, Medication History [facility] 07/08/2024 8:19 AM SHOP SUPERVISOR Associated attestation - Aura Farley PHARMACIST - 07/08/2024 9:15 AM ROLL SHOP SUPERVISOR CREAM MAKER medications have been reviewed. Changes/updates noted at this time. Eloy Farley RPh documented in this encounter H&P Notes * Jagruti Lim MD - 07/08/2024 6:17 AM CST [facility] History and Physical Patient Name: Cata Ibrahim [id number] Primary Care Doctor: Isis Duff MD Date of Admission: 07/08/2024 Date of Service: 07/08/2024 Chief Complaint Patient presents with Vomiting Pt comes in for vomiting 9 hours today. Pt was here yesterday and felt good at DC but after a little vomiting came back HPI: Patient is 39 y.o. female with a H anxiety depression, bipolar disorder, GERD, marijuana use and a history of SVT.. She came into the emergency room because of intractable nausea vomiting, epigastric, left upper quadrant pain since 6 PM on 07/07/2024. She describes the pain as sharp pain, nonradiating. No aggravating or elevating factors. She rated the pain as 6-8 out of 10 prior to the admission. She also reported epigastric pain and lower chest pain. Denies palpitations, syncope near syncope. Denies fever chills, cough. Denies diarrhea. Last bowel movement was yesterday morning. Patient hospitalized to [facility] on 03/30/2024 for intractable nausea vomiting, subsequentlyhad a EGD on 04/01/[address] chest abdomen, right upper quadrant ultrasound scan, brain MRI were negative. HIDA scan negative. Patient was treated symptomatically, has placed top of tube feedings, consulted psychiatric team and subsequently discharged on 04/09/2024. Workup in the emergency room, blood pressure 107/66, WBC 12.9, potassium 3.3, bicarb 17, anion gap 18, lipase 20, magnesium 2.0, procalcitonin 0.03, CRP 7.4. CT abdominal and pelvis showed liver and spleen normal without focal deficit. The gallbladder is normally distended. Pancreas and adrenal glands are unremarkable. There is a mild wall thickening in the colon which is nondistended. No acute changes. ER Rx: Benadryl 50 mg, lorazepam 2 mg, morphine 4 mg IV, Protonix 40 mg, Compazine 10 mg IV, fluid bolus 1 L and is being admitted for further evaluation. EKG showed normal sinus rhythm, heart rate of 63, short CT interval, QTc 445. CODE STATUS full code Smokes marijuana occasionally Past Medical History: Diagnosis Date Acid reflux Bipolar disorder Past Surgical History: Procedure Laterality Date HX SECTION HX ESOPHAGOGASTRODUODENOSCOPY 04/01/2024 Current Medications: Prior to Admission Medications Prescriptions Last Dose Informant Patient Reported? Taking? ARIPiprazole (ABILIFY) 2 mg tablet Yes No CLONAZEPAM ORAL Yes Yes Sig: Take 0.25 mg by mouth 3 times daily as needed for Other (See Comment) (anxiety). DULoxetine (CYMBALTA) 60 mg Capsule, Delayed Release(E.C.) Yes No Sig: TK 1 C PO QD L-Norgest&E estradiol-E Estrad (Simpesse) 0.15 mg-30 mcg (84)/10 mcg (7) Tablet, Dose Pack, 3 Months No No Sig: TAKE 1 TABLET BY MOUTH DAILY lumateperone (Caplyta) 21 mg Capsule Yes Yes Sig: Take 21 mg by mouth daily. omeprazole (PriLOSEC) 20 mg Capsule, Delayed Release(E.C.) Yes No Sig: Take 20 mg by mouth. prochlorperazine maleate (COMPAZINE) 10 mg tablet No No Sig: Take 1 Tablet (10 mg) by mouth every 6 hours as needed for Nausea. traZODone (DESYREL) 50 mg tablet Yes No verapamiL (CALAN) 80 mg tablet Yes Yes Sig: Take 40 mg by mouth daily. Facility-Administered Medications: None Medication Allergies: Allergies Allergen Reactions Metoclopramide Blood Disorder Family History Problem Relation Name Age of Onset Breast Cancer Mother 52 Breast Cancer Paternal Grandmother 62 Ovarian Cancer Paternal Grandmother 68 Social History: Social History Tobacco Use Smoking status: Never Smokeless tobacco: Never Substance Use Topics Alcohol use: Yes ROS: Constitutional: denies chills, diaphoresis, fever, +malaise, +weakness HEENT: denies eye discharge, eye pain, blurred vision, double vision, ear pain, ear discharge, nasal drainage, nasal congestion, sinus pain, dysphagia, odynophagia, sore throat Respiratory: denies cough, orthopnea, shortness of breath, stridor, wheezing Cardiovascular: denies chest pain, edema, palpitations, syncope, lightheadedness/dizziness Gastrointestinal/Abdominal: ++ abdominal pain, + nausea, +vomiting, denies hematemesis, coffee-ground emesis, melena or bright red blood per rectum Genitourinary: denies discharge, dysuria, frequency, hematuria, pain Musculoskeletal: denies back pain, joint pain, joint swelling, muscle pain, neck pain Skin: denies dryness, rash Neurological/Psych: denies anxiety, depressed, headache, numbness, tingling Endocrine: denies intolerance to cold, intolerance to heat, increased urine, unexplained weight gain, unexplaned weight loss Hematologic/Lymphatic: denies easy bleeding, easy bruising All other systems reviewed and negative; non-contributory for chief complaint. Physical Exam: BP 107/66 Pulse 83 Temp 98.2 ??F (36.8 ??C) (Oral) Resp 15 Ht 5' 1 (1.549 m) Wt 63.5 kg (140 lb) SpO2 98% BMI 26.45 kg/m?? Appearance: 39-year-old female, alert and awake oriented x 3, lying in bed. Not in distress. Feeling better after receiving IV morphine. HEENT: Normocephalic, atraumatic, EOMI, PERRLA. Neck: Supple, full range of motion. No lymphadenopathy, no JVD or thyromegaly. Cardiovascular: No thrills or heaves. Regular rate and rhythm without murmurs, rubs or clicks. Pulmonary: No dullness to percussion. Clear to all horner bilaterally. GI / : Abdomen soft, mild epigastric tenderness noted without rigidity guarding. Bowel sounds normoactive. Negative hepatosplenomegaly. Extremities: No clubbing, cyanosis or edema. Dorsalis pedis pulses palpable bilaterally. MS: Strength / ROM intact, no calf tenderness Skin: Warm and dry, color normal Neurologic: Alert and oriented times 3. Cranial nerves 2-12 are intact. No focal deficits. Psychiatric: Affect / mood appropriate Data Base: Lab: Results for orders placed or performed during the hospital encounter of 07/08/24 (from the past 24 hour(s)) CBC WITH DIFFERENTIAL Result Value Ref Range WBC 12.9 (H) 4.0 - 11.0 K/uL RBC 4.80 4.20 - 5.40 M/uL HEMOGLOBIN 14.4 11.9 - 15.1 g/dL HEMATOCRIT 42.3 38.0 - 47.0 % MCV 88.1 80.0 - 98.0 fL MCH 30.0 26.0 - 34.0 pg MCHC 34.0 31.0 - 37.0 g/dL RDW 13.1 11.5 - 14.5 % RDW-STDEV 42.6 34.0 - 54.0 fL PLATELETS 413 (H) 150 - 400 K/uL MPV 10.6 8.5 - 12.5 fL NEUTROPHILS 84 (H) 50 - 70 % LYMPHOCYTES 14 (L) 20 - 40 % MONOCYTES 2 2 - 8 % EOSINOPHILS 0 (L) 1 - 3 % BASOPHILS 0 0 - 1 % IMMATURE GRANULOCYTES 0 0 - 2 % NEUTROPHIL ABSOLUTE 10.87 (H) 1.80 - 7.70 K/uL LYMPHOCYTE ABSOLUTE 1.75 1.00 - 3.30 K/uL MONOCYTE ABSOLUTE 0.22 0.00 - 0.80 K/uL EOSINOPHIL ABSOLUTE 0.00 0.00 - 0.45 K/uL BASOPHILS ABSOLUTE 0.03 0.00 - 0.20 K/uL IMMATURE GRANULOCYTES ABSOLUTE 0.05 0.00 - 0.31 K/uL COMPREHENSIVE METABOLIC PANEL Result Value Ref Range SODIUM 136 136 - 145 mmol/L POTASSIUM 3.3 (L) 3.5 - 5.1 mmol/L CHLORIDE 101 98 - 107 mmol/L CO2 17 (L) 22 - 29 mmol/L CALCIUM 9.7 8.6 - 10.0 mg/dL BUN 8 6 - 20 mg/dL CREATININE 0.82 0.51 - 0.95 mg/dL GLUCOSE 138 (H) 74 - 99 mg/dL TOTAL PROTEIN 8.6 6.6 - 8.7 g/dL ALBUMIN 4.6 4.0 - 5.0 g/dL BILIRUBIN TOTAL 0.3 <=1.2 mg/dL ALKALINE PHOSPHATASE 93 35 - 104 U/L AST 29 <40 U/L ALT 31 <=33 U/L GFR >60 >=60 mL/min/1.73 sq meter ANION GAP 18 (H) 5 - 15 mmol/L LIPASE Result Value Ref Range LIPASE 20 13 - 60 U/L MAGNESIUM LEVEL Result Value Ref Range MAGNESIUM 2.0 1.6 - 2.6 mg/dL PROCALCITONIN Result Value Ref Range PROCALCITONIN 0.03 <=0.25 ng/mL C-REACTIVE PROTEIN Result Value Ref Range CRP 7.4 (H) <=5.0 mg/L HCG QUALITATIVE, BLOOD Result Value Ref Range HCG QUAL, BLOOD Negative Negative, Indeterminate ECG Personally reviewed Results for orders placed or performed during the hospital encounter of 07/08/24 EKG 12-LEAD [facility] [address], [place] [address] Test Date: 2024-07-08 Pat Name: CATA ESCOBEDO Department: 25 Room: ED17 ED17 Gender: Female Inweaver: : 1985 Requested By: MATTHEW Leach Order Number: [id number] Reading MD: Measurements Intervals [place] Rate: 63 P: 60 CT: 117 QRS: 50 QRSD: 90 T: 70 QT: 434 QTc: 445 Interpretive Statements SINUS RHYTHM WITH SHORT CT INTERVAL POSSIBLE LEFT ATRIAL ENLARGEMENT [-0.1mV P-WAVE IN V1/V2] POSSIBLE RIGHT VENTRICULAR CONDUCTION DELAY [RSR (QR) IN V1/V2] CT scan: Results for orders placed during the hospital encounter of 07/08/24 CT ABDOMEN PELVIS W CONTRAST Impression : 1. Chronic wall thickening likely related to lack of distention. 2. No acute changes. DICTATION LOCATION: Location [address] [place] [address] Assessment: Patient is 39 y.o. female with a PMH anxiety depression, bipolar disorder, GERD, marijuana use and a history of SVT, admitted for intractable nausea vomiting, epigastric, left upper quadrant pain since 6 PM on 07/07/2024. Intractable nausea vomiting, epigastric and left upper quadrant pain: Differential diagnosis could be cannabis induced hyperemesis syndrome versus cyclical vomiting. CT abdominal pelvis unremarkable,nothing acute. Patient received IV Benadryl 50 mg, lorazepam 2 mg IV, Compazine 10 mg IV in the ER.She also received Protonix 40 mg and 1 L fluid bolus. She also received morphine 4 mg IV. EKG showed normal sinus rhythm heart rate of 63, QTc 445. Clinically patient is feeling better. Continue IV fluids 5% dextrose half-normal saline with KCl 20 mill equivalents at 75 mill per hour. continue antiemetics including IV Compazine 10 mg every 6 hours alternating with IV lorazepam 2 mg every 6 hours.Full liquid diet as tolerated. Get ultrasound of right upper quadrant. Noted EGD at [facility] at on 03/30/2024 is unremarkable. Leukocytosis, WBC 12.9: Likely reactive. Procalcitonin 0.03, CRP 7.4. CT abdominal and pelvis showed nothing acute. Continue to monitor, observe off antibiotics. Hypokalemia: 3.3. Potassium chloride 40 mEq of KCl IVPB being replaced. Repeat labs in the morning.Magnesium normal. Increased anion gap metabolic acidosis, due to dehydration: . Encourage p.o. intake. Received 1 L fluid bolus in the ER, getting IV fluids potassium chloride 20 mEq in the 5% dextrose half-normal saline 75 mL/h. Anxiety depression Mood disorder Bipolar disorder: Continue CREAM MAKER Abilify 2 mg daily, Klonopin 0.25 mg 3 times daily as needed for anxiety, Cymbalta 60 mg daily, Caplyta 21 mg daily, trazodone 50 mg daily for insomnia. History of SVT: Patient has been suffering with SVT for the past 2 years, follows with cardiologistDr. Palumbo at [facility]. She is on verapamil 80 mg daily, continue. EKG showed normal sinus rhythm. Advised to follow-up with her cardiology team as an outpatient GERD: Continue omeprazole 20 mg daily History of marijuana use: Check urine drug screen, advised to quit smoking marijuana DVT prophylaxis: Lovenox 40 mg subcu CODE STATUS full code Anticipate discharge in 1 to 2 days. Plan of care discussed with the patient. Being admitted on observation. Follow-up Further plans and recommendations as the clinical picture unfolds and pending the above results. This note was transcribed using Speech Recognition software. May contain unintended grammar and spelling errors. If there are any questions or major errors, please contact me. Jagruti Lim MD [facility] SHOP SUPERVISOR documented in this encounter ED Notes * Lacey Bryson RN - 07/08/2024 6:17 AM CST Report given to RUBÉN Molina. All questions answered at this time. SHOP SUPERVISOR * Matthew Steve MD - 07/08/2024 3:46 AM CST HISTORY OF PRESENT ILLNESS This 39 y.o. female presents to the ED via private vehicle for evaluation of frequent vomiting onset at 1800. Patient was seen in the ER 07/06/2024 for similar abdominal pain, nausea, and vomiting. Patient's workup was overall unremarkable, and her symptoms resolved after GI cocktail. She was discharged home with prescriptions for Protonix and compazine after voicing resolution of her symptoms. Patient states she slept most of the day at home. She states she tried to eat at 1400, but she vomited after attempt PO. At 1800, she began to vomit again, and she noticed upper abdominal pain again, so she returned to the ER for reevaluation. Associated symptoms include nausea. Patient denies fever, chills, sore throat, congestion, cough, shortness of breath, chest pain, hematemesis, hematochezia,melena, diarrhea, blood per rectum, headaches or any other complaints at this time. History provided by: The patient and medical records wedger machine used: No Arrived by: Private vehicle Arrived from: Home PAST MEDICAL HISTORY REVIEWED MEDICAL: Patient has a past medical history of Acid reflux and Bipolar disorder. SURGICAL: Patient has a past surgical history that includes section and esophagogastroduodenoscopy (04/01/2024). ALLERGIES Metoclopramide PHYSICAL EXAM INITIAL VS BP: (!) 151/81 (07/08/24404), Heart Rate: 74 bpm (07/08/24404), Resp: 16 (07/08/24353), Pulse: 69 (07/08/24404), Temp: 98.2 ??F (36.8 ??C) (07/08/24434), Temp src: Oral (07/08/24434), SpO2: 93 % (07/08/24404), Height: 5' 1 (154.9 cm) (07/08/24353), Weight: 63.5 kg (140 lb) (07/08/24353), BMI (Calculated): (!) 26.46 (07/08/24353) No LMP recorded. (Menstrual status: Continuous Control). Physical Exam Vitals and nursing note reviewed. Constitutional: General: She is in acute distress (moderate pain distress). Appearance: She is well-developed. HENT: Head: Normocephalic and atraumatic. Mouth/Throat: Mouth: Mucous membranes are dry. Pharynx: Oropharynx is clear. Eyes: Conjunctiva/sclera: Conjunctivae normal. Pupils: Pupils are [...] is soft. Tenderness: There is abdominal tenderness in the epigastric area. There is guarding (mild). There is no rebound. Musculoskeletal: General: No [...] WITH DIFFERENTIAL - Abnormal Result Value WBC 12.9 (*) RBC 4.80 HEMOGLOBIN 14.4 HEMATOCRIT 42.3 MCV 88.1 MCH 30.0 MCHC 34.0 RDW 13.1 RDW-STDEV 42.6 PLATELETS 413 (*) MPV 10.6 NEUTROPHILS 84 (*) LYMPHOCYTES 14 (*) MONOCYTES 2 EOSINOPHILS 0 (*) BASOPHILS 0 IMMATURE GRANULOCYTES 0 NEUTROPHIL ABSOLUTE 10.87 (*) LYMPHOCYTE ABSOLUTE 1.75 MONOCYTE ABSOLUTE 0.22 EOSINOPHIL ABSOLUTE 0.00 BASOPHILS ABSOLUTE 0.03 IMMATURE GRANULOCYTES ABSOLUTE 0.05 COMPREHENSIVE METABOLIC PANEL - Abnormal SODIUM 136 POTASSIUM 3.3 (*) CHLORIDE 101 CO2 17 (*) CALCIUM 9.7 BUN 8 CREATININE 0.82 GLUCOSE 138 (*) TOTAL PROTEIN 8.6 ALBUMIN 4.6 BILIRUBIN TOTAL 0.3 ALKALINE PHOSPHATASE 93 AST 29 ALT 31 GFR >60 ANION GAP 18 (*) LIPASE - Normal LIPASE 20 HCG QUALITATIVE, BLOOD - Normal HCG QUAL, BLOOD Negative MAGNESIUM LEVEL PROCALCITONIN C-REACTIVE PROTEIN DRUG SCREEN, URINE RADIOLOGY: CT ABDOMEN PELVIS W CONTRAST Radiologist Impression IMPRESSION: 1. Chronic wall thickening likely related to lack of distention. 2. No acute changes. DICTATION LOCATION: Location [address] [place] [address] EKG: PROCEDURES Procedures MEDICAL DECISION MAKING AND PLAN OF CARE ED Course as of 07/08/24 0550 MonJul 08, 2024 0404 Discussed the plan of care with the patient. The patient understands and agrees to the plan. [AM] 0539 Rechecked the patient. Discussed lab results and radiology findings and plan for admission. Patient understands and agrees with plan. All questions addressed. [AM] 0543 Notified the hospitalist of the patient's case using secure chat. [AM] 0546 Discussed patient's case with Dr. Lim (Hospitalist) who accepts the patient and will take over the patient's care from this time forward. [AM] ED Course User Index [AM] Michelle Ibrahim Scribe Medical Decision Making Medical Decision Making: Summary: 39 y.o. female has a past medical history of Acid reflux and Bipolar disorder and presentsfor evaluation of abdominal pain, nausea, and vomiting. Physical exam findings include epigastric abdominal tenderness with mild guarding. Lab results unremarkable except minimally elevated WBC whichmay be attributed to patient's frequent vomiting tonight. Imaging showed no acute process on CT abd/pel. Patient was treated with fluids, ativan, Protonix, compazine, benadryl, morphine in the ED andultimately admitted for further treatment. Differential diagnosis includes, but is not limited to, GERD, hiatal hernia, cyclic vomiting, gallbladder disease, dehydration, peptic ulcer disease. By virtue of history and physical, some of these diagnoses can be excluded. Plan of care includes routine labs and CT abd/pel. Non-ED notes reviewed: Reviewed previous ER visit notes Additional information obtained from independent historian, None. The following social determinants of health affected my care of this patient: None I considered admission vs discharge, and, through shared decision making with the patient when appropriate, the decision was made to Admit. Amount and/or Complexity of Data Reviewed External Data Reviewed: labs, ECG and notes. Labs: ordered. Radiology: ordered. Risk Prescription drug management. Decision regarding hospitalization. MDM Consults: hospitalist Name of hospitalist: Dr. Lim Medications Administered During the ED Stay from 07/08/2024 0346 to 07/08/2024 0550 Date/Time Order Dose Route Action 07/08/2024 0526 ROLL SHOP SUPERVISOR sodium chloride 0.9% bolus solution 1,000 mL 0 mL IV Stopped 07/08/2024 0430 ROLL SHOP SUPERVISOR sodium chloride 0.9% bolus solution 1,000 mL 1,000 mL IV Bolus 07/08/2024 0420 ROLL SHOP SUPERVISOR prochlorperazine (COMPAZINE) injection 10 mg 10 mg IV Given 07/08/2024 041 ROLL SHOP SUPERVISOR diphenhydrAMINE (BENADRYL) injection 50 mg 50 mg IV Given 07/08/2024 0418 ROLL SHOP SUPERVISOR morphine 4 mg/mL injection 4 mg 4 mg IV Given 07/08/2024 0422 ROLL SHOP SUPERVISOR pantoprazole (PROTONIX) 40 mg in sodium chloride 0.9% 10 mL injection 40 mg IV Given 07/08/2024 0523 ROLL SHOP SUPERVISOR sodium chloride 0.9% infusion -- IV New Bag 07/08/2024 0515 ROLL SHOP SUPERVISOR LORazepam (ATIVAN) 2 mg/mL injection 2 mg 2 mg IV Given 07/08/2024 0507 ROLL SHOP SUPERVISOR iopamidoL (ISOVUE-300) 61% injection (drawn from multi-use bulk pack) 100 mL 100 mL IV Contrast Given . New Prescriptions for this Encounter LAST VS BP: 131/72 (07/08/24439), Heart Rate: 73 bpm (07/08/24439), Resp: 16 (07/08/24439), Pulse: 73(07/08/24439), Temp: 98.2 ??F (36.8 ??C) (07/08/24434), Temp src: Oral (07/08/24434), SpO2: 100 % (07/08/24439) CLINICAL IMPRESSION Final diagnoses: [R11.10] Intractable vomiting (Primary) [R10.13] Epigastric pain [E86.0] Dehydration DISPOSITION, EDUCATION AND MEDICATION REVIEWED Medications reviewed. See after visit summary for patient education on discharged patients. ED Disposition ED Disposition Admit Condition Stable User Matthew Steve MD Date/Time MonJul 08, 2024 5:44 AM Comment -- Disposition: Admission to Medical under the care of Dr. Lim, hospitalist. ATTESTATION STATEMENTS Physician attestation The scribe's documentation has been prepared under my direction and personally reviewed by me in its entirety. I confirm that the note above accurately reflects all work, treatment, procedures, and medical decision making performed by Matthew Steve MD.. Nataliia Ibrahim scribing for and in the presence of Matthew Steve MD SHOP SUPERVISOR documented in this encounter Miscellaneous Notes * Care Plan - Darshana Cassidy RN - 07/08/2024 3:58 PM CST Problem: Discharge Planning Goal: Identify discharge needs upon admission and through discharge Description: Outcome: Resolved Verbalized understanding of discharge instructions, denies further needs SHOP SUPERVISOR * Care Plan - Emperatriz Luna LCSW - 07/08/2024 10:38 AM CST Care Management Initial Assessment Initial Discharge Planning Assessment completed. Discussed Care Management's role and Discharge planning. Discharge Plan: Plan Discharge To: Home or Self Care Does the patient have family and/or a caregiver that is willing, able and available to assist if needed? No - Reason: home independently Comments: Observation letter given to the patient with explanation and signed copy placed on pt's lite chart. Pt declines any resources for marijuana use. Patient Discharge Planning Goal: return home Patient will potentially discharge to a SNF/NH? No Care Management visited with: patient via in person. Prior to admission, patient resides at: own home. Prior to admission, living arrangements: other daughter half time . Prior to admission, patient's functional level:independent; uses N/A for mobility; needs assistancewith iADLs: N/A Community Ambulator: yes Prior to admission, the patient has the following DME? N/A Services in the home/community: none Receives hemodialysis? No Emergency contact(s): Extended Emergency Contact Information Primary Emergency Contact: ten lu Mobile Relation: Father Preferred language: [place] Lane Marker Installer needed? No Secondary Emergency Contact: ky lu Mobile Relation: Mother Preferred language: [place] Marker Installer needed? No Prescription coverage: yes Preferred Pharmacy verified: [id number] - [place], [place] - [address] [facility] [address] Insurance coverage verified: Payor: / Has BCBS that needs to be added to chart Secondary Insurance:N/A Medicaid Status: NA Has VA Benefits: no Employment Status: employed PCP verified as: Isis Duff MD Patient has not had a stay at an acute care hospital in the last 30 days. Recent Falls?: Last Known Fall: No falls Plan for transportation at discharge: Family Care Management contact information provided. Care Management will continue to follow and assist asneeded. Problem: Discharge Planning Goal: Identify discharge needs upon admission and through discharge Description: Outcome: Progressing Emperatriz Luna LCSW [facility] Care Management [phone] SHOP SUPERVISOR * Gen SANTOS ED Handoff - GOLDEN HANNON HANDOFF NOTE - 07/08/2024 6:24 AM CST ##Situation##: Patient ( ) is a 39-year-old female who has been in the ER for 2 hours. She came to the ER due to vomiting. The patient's most recent care team on record included: Lacey Bryson. ##Background##: This patient has allergies to Metoclopramide. ##Assessment##: Patient's most recent vitals recorded in flowsheets were as follows: *BP: 105/63 *Temp: 36.8C, 98.2F *Resp: 14 *Pulse oximetry: 98% *Pulse: 91 Lines most recently placed include: angiocath at 2024-07-08 04:18:42. Last recorded oxygen source was room air. The patient presents with frequent vomiting, upper abdominal pain, and nausea. Physical exam findings include epigastric abdominal tenderness with mild guarding. Lab results show minimally elevated WBC, elevated platelets, low potassium, low CO2, elevated glucose, and elevated anion gap. Imaging showed chronic wall thickening but no acute changes. ##Recommendation##: The patient has been admitted for further treatment under the care of Dr. Lim, hospitalist. The treatment plan includes routine labs and CT abdomen/pelvis. Medications administered during the ED stay include sodium chloride 0.9% bolus solution, prochlorperazine (Compazine), diphenhydramine (Benadryl), morphine, pantoprazole (Protonix), lorazepam (Ativan), and iopamidol (Isovue-300) contrast. Continue monitoring and managing symptoms with medications such as Protonix and Compazine. Ensure hydration with IV fluids. Monitor lab values, especially WBC, potassium, CO2, glucose, and anion gap. Consider differential diagnoses including GERD, hiatal hernia, cyclic vomiting, gallbladder disease, dehydration, and peptic ulcer disease. Consult with the hospitalist for further management and follow-up. This summary was created by golden SANTOS. The responses are meant to enhance, not replace normal workflow. Please contact the ED nurse for any follow up or additional information. SHOP SUPERVISOR documented in this encounter Plan of Treatment Not on file documented as of this encounter Procedures Procedure Name Priority Date/Time Associated Diagnosis Comments US ABDOMEN LIMITED Stat 07/08/2024 7: 30 AM ROLL SHOP SUPERVISOR EKG 12-LEAD Stat 07/08/2024 6:13 AM ROLL SHOP SUPERVISOR CT ABDOMEN PELVIS W CONTRAST Stat 07/08/2024 5:07 AM ROLL SHOP SUPERVISOR HCG QUALITATIVE, SERUM Stat 4:17 AM ROLL SHOP SUPERVISOR PROCALCITONIN Stat 07/08/2024 4:08 AM ROLL SHOP SUPERVISOR CBC WITH DIFFERENTIAL Stat 07/08/2024 4:08 AM ROLL SHOP SUPERVISOR C-REACTIVE PROTEIN Stat 07/08/2024 4: 08 AM ROLL SHOP SUPERVISOR PHOSPHORUS Routine 07/08/2024 4:08 AM ROLL SHOP SUPERVISOR MAGNESIUM LEVEL Stat 07/08/2024 4:08 AM ROLL SHOP SUPERVISOR LIPASE Stat 07/08/2024 4:08 AM ROLL SHOP SUPERVISOR COMPREHENSIVE METABOLIC PANEL Stat 07/08/2024 4:08 AM ROLL SHOP SUPERVISOR documented in this encounter Results * US ABDOMEN LIMITED (07/08/2024 7:30 AM ROLL SHOP SUPERVISOR) Anatomical Region Laterality Modality Abdomen Ultrasound 07/08/2024 7:36 AM ROLL SHOP SUPERVISOR Impressions 07/08/2024 8:05 AM ROLL SHOP SUPERVISOR IMPRESSION: 1. Mild abnormal echogenicity of the liver which can be seen with steatosis or other diffuse hepatocellular process. This limits the sensitivity for the detection of hepatic masses. 2. Unremarkable gallbladder. DICTATION LOCATION: Location 9 [facility] Narrative 07/08/2024 8:05 AM ROLL SHOP SUPERVISOR US ABDOMEN LIMITED DATE: 07/08/2024 7:30 AM HISTORY: 39-year-old female with nausea and vomiting TECHNIQUE: Limited right upper quadrant ultrasound performed by an research technologist in multiple projections. COMPARISON: None FINDINGS: [...] right upper quadrant ultrasound performed by an research technologist in multiple projections. COMPARISON: None FINDINGS: [...] 2. Unremarkable gallbladder. DICTATION LOCATION: Location - [facility] Jagruti Lim MD US ORDERABLE S * EKG 12-LEAD (07/08/2024 6:13 AM ROLL SHOP SUPERVISOR) 07/08/2024 6:13 AM ROLL SHOP SUPERVISOR Narrative INTERFACE SYSTEM - 07/08/2024 4:50 PM ROLL SHOP SUPERVISOR ? [facility] OPI ? [address], [place] [address] ? Test Date: ?2024-07-08 Pat Name: ? CAMMA PATRICE ? Department: ?? 25 ?Room: ? 2114 Gender: ? Female ? Inweaver: ? : ?1985 ? Requested By: MATTHEW Leach Order Number: [id number] ? Reading MD: ?? Sushruth Edla ? Measurements Intervals ?[place] ? Rate: ? 63 ? P: ?60 CT: ? 117 ?QRS: ?50 QRSD: ? 90 ? T: ?70 QT: ? 434 ? QTc: ?445 ? Interpretive Statements SINUS RHYTHM WITH SHORT CT INTERVAL POSSIBLE LEFT ATRIAL ENLARGEMENT ??[-0.1mV P-WAVE IN V1/V2] POSSIBLE RIGHT VENTRICULAR CONDUCTION DELAY ??[RSR (QR) IN V1/V2] Electronically Signed On 07-08-2024 16:50:49 ROLL SHOP SUPERVISOR by Saud Fonseca Procedure Note Saud Fonseca MD - 07/08/2024 [place] [facility] O[address], [place] [address] Test Date: 2024-07-08 Pat Name: CATA IBRAHIM Department: 25 Room: [facility] [place] Gender: Female Inweaver: : 1985 Requested By: MATTHEW Leach Order Number: [id number] Reading MD: Saud Fonseca Measurements Intervals [place] Rate: 63 P: 60 CT: 117 QRS: 50 QRSD: 90 T: 70 QT: 434 QTc: 445 Interpretive Statements SINUS RHYTHM WITH SHORT CT INTERVAL POSSIBLE LEFT ATRIAL ENLARGEMENT [-0.1mV P-WAVE IN V1/V2] POSSIBLE RIGHT VENTRICULAR CONDUCTION DELAY [RSR (QR) IN V1/V2] Electronically Signed On 07-08-2024 16:50:49 [employer] SUPER[employer] by Saud Fonseca Jagruti Lim MD ECG ORDERABL ES INTERFACE SYSTEM Refer to clinic/hospital department * CT ABDOMEN PELVIS W CONTRAST (07/08/2024 5:07 AM [employer] SUPERVISOR) Anatomical Region Laterality Modality Abdomen Computed Tomogra phy 07/08/2024 5:08 AM [employer] SUPER[employer] Impressions 07/08/2024 5:15 AM [employer] SUPERVISOR IMPRESSION: 1. Chronic wall thickening likely related to lack of distention. 2. No acute changes. DICTATION LOCATION: Location [address] [place] [address] 07/08/2024 5:15 [address] [address] ABDOMEN AND PELVIS WITH IV CONTRAST [...] distention. 2. No acute changes. DICTATION LOCATION: [address] Matthew Steve MD CT ORDERABLES * HCG QUALITATIVE, BLOOD (07/08/2024 4:17 AM [employer] SUPERVISOR) Pathologist [facility] HCG QUAL, BLOOD Negative Negative, Indeterminate 07/08/2024 4:46 AM [employer] SUPERVISOR [facility] Blood Collection / Unknown 07/08/2024 4:17 AM [employer] SUPER[employer] 07/08/2024 4:36 AM [employer] SUPERVISOR Narrative [facility] - 07/08/2024 4:46 AM [employer] SUPER[employer] hCG sensitive to as little as 10 mIU/mL for serum. Matthew Steve MD CHEMISTRY ORDERABLES Performing Organization Address City/[facility]/ZIP Co de Phone Number [facility] CLIA # [id number] [address] [address] * (ABNORMAL) PHOSPHORUS (07/08/2024 4:08 AM [employer] SU[employer]) [facility] PHOSPHORUS 1.1(L) 2.5 - 4.5 mg/dL 07/08/2024 9:43 AM [employer] SUPERVISOR [facility] Blood Collection / Unknown 07/08/2024 4:08 AM [employer] SUPER[employer]OR 07/08/2024 4:18 AM [employer] SUPERVISOR Anabel Philip MD CHEMISTRY ORDERABLES Performing Organization Address [facility]/ZIP Co de Phone Number [facility] CLIA # [id number] [address] [address] * (ABNORMAL) C-REACTIVE PROTEIN (07/08/2024 4:08 AM [employer] SUPERVISOR) Pathologist [facility] CRP 7.4(H) <=5.0 mg/L 07/08/2024 6:10 AM [employer] SUPERVISOR [facility] Blood Collection / Unknown 07/08/2024 4:08 AM [employer] SUPERVISOR 07/08/2024 4:18 AM [employer] SUPERVISOR Jagruti Lim MD CHEMISTRY OR DERABLES Performing Organization Address City/[facility]/ZIP Co de Phone Number [facility] CLIA # [id number] [address] [place] [address] * PROCALCITONIN (07/08/2024 4:08 AM [employer] SUPERVISOR) PROCALCITONIN 0.03 <=0.25 ng/mL 07/08/2024 6:11 AM [employer] SUPERVISOR [facility] Blood Collection / Unknown 07/08/2024 4:08 AM [employer] SUPERVISOR 07/08/2024 4:18 AM [employer] SUPERVISOR Narrative [facility] - 07/08/2024 6:11 AM [employer] SUPERVISOR The utility of procalcitonin is limited/NOT recommended [...] hours. Jagruti Lim MD CHEMISTRY OR D[facility]ABLES [id number] [address] [place] [address] * MAGNESIUM LEVEL (07/08/2024 4:08 AM [employer] SH[employer] SUPERVISOR) MAGNESIUM 2.0 1.6 - 2.6 mg/dL 07/08/2024 6:10 AM [facility] Blood Collection / Unknown 07/08/2024 4:08 AM [employer] SUPER[employer]OR 07/08/2024 4:18 AM [employer] SUPERVISOR Jagruti Lim MD CHEMISTRY OR DERABLES [facility] CLIA # [id number] [address] [address] * LIPASE (07/08/2024 4:08 AM [employer] SUPERVISOR) Pathologist [facility] LIPASE 20 13 - 60 U/L 07/08/2024 4:30 AM [facility] Blood Collection / Unknown 07/08/2024 4:08 AM [employer] SUPERVISOR 07/08/2024 4:18 AM [employer] SUPER[employer]OR Matthew Steve MD CHEMISTRY ORDERABLES Performing Organization Address City/[facility]/ZIP Co de Phone Number [facility] [employer] [facility] CLIA # [id number] [address] [address] * (ABNORMAL) COMPREHENSIVE METABOLIC PANEL (07/08/2024 4:08 AM [employer] SUPERVISOR) Pathologist [facility] SODIUM 136 136 - 145 mmol/L 07/08/2024 4:30 AM [facility] POTASSIUM 3.3(L) 3.5 - 5.1 mmol/L 07/08/2024 4:30 AM [facility] CHLORIDE 101 98 - 107 mmol/L 07/08/2024 4:30 AM [facility] CO2 17(L) 22 - 29 mmol/L 07/08/2024 4:30 AM [facility] CALCIUM 9.7 8.6 - 10.0 mg/dL 07/08/2024 4:30 AM [facility] BUN 8 6 - 20 mg/dL 07/08/2024 4:30 AM [facility] CREATININE 0.82 0.51 - 0.95 mg/dL 07/08/2024 4:30 AM [facility] GLUCOSE 138(H) 74 - 99 mg/dL 07/08/2024 4:30 AM [facility] TOTAL PROTEIN 8.6 6.6 - 8.7 g/dL 07/08/2024 4:30 AM [facility] ALBUMIN 4.6 4.0 - 5.0 g/dL 07/08/2024 4:30 AM [facility] BILIRUBIN TOTAL 0.3 <=1.2 mg/dL 07/08/2024 4:30 AM [facility] ALKALINE PHOSPHATASE 93 35 - 104 U/L 07/08/2024 4:30 AM [facility] AST 29 <40 U/L 07/08/2024 4:30 AM [facility] ALT 31 <=33 U/L 07/08/2024 4:30 AM [facility] GFR >60 >=60 mL/min/1.7 3 sq meter 07/08/2024 4:30 AM [facility] Comment:eGFR calculated with 2020 CKD-EPI equation. Vegetarian diet, extremely high or low muscle mass, and may affect results. Cystatin C with Glomerular Filtration Rate is a suitable alternative for these patients. ANION GAP 18(H) 5 - 15 mmol/L 07/08/2024 4:30 AM [facility] Blood Collection / Unknown 07/08/2024 4:08 AM [employer] SUPER[employer]OR 07/08/2024 4:18 AM [facility] Matthew Steve MD CHEMISTRY ORDERABLES [facility] CLIA # [id number] [facility] [address] [place] [phone] * (ABNORMAL) CBC WITH DIFFERENTIAL (07/08/2024 4:08 AM [employer] SUPERVISOR) WBC 12.9(H) 4.0 - 11.0 K/uL 07/08/2024 4:15 AM [facility] RBC 4.80 4.20 - 5.40 M/uL 07/08/2024 4:15 AM [facility] HEMOGLOBIN 14.4 11.9 - 15.1 g/dL 07/08/2024 4:15 AM [facility] HEMATOCRIT 42.3 38.0 - 47.0 % 07/08/2024 4:15 AM [facility] MCV 88.1 80.0 - 98.0 fL 07/08/2024 4:15 AM [facility] MCH 30.0 26.0 - 34.0 pg 07/08/2024 4:15 AM [facility] MCHC 34.0 31.0 - 37.0 g/dL 07/08/2024 4:15 AM [facility] RDW 13.1 11.5 - 14.5 % 07/08/2024 4:15 AM [facility] RDW-STDEV 42.6 34.0 - 54.0 fL 07/08/2024 4:15 AM [facility] PLATELETS 413(H) 150 - 400 K/uL 07/08/2024 4:15 AM [facility] MPV 10.6 8.5 - 12.5 fL 07/08/2024 4:15 AM [facility] NEUTROPHILS 84(H) 50 - 70 % 07/08/2024 4:15 AM [facility] LYMPHOCYTES 14(L) 20 - 40 % 07/08/2024 4:15 AM [employer] [facility] MONOCYTES 2 2 - 8 % 07/08/2024 4:15 AM [employer] [facility] EOSINOPHILS 0(L) 1 - 3 % 07/08/2024 4:15 AM [facility] BASOPHILS 0 0 - 1 % 07/08/2024 4:15 AM [employer] [facility] IMMATURE GRANULOCYTES 0 0 - 2 % 07/08/2024 4:15 AM [facility] NEUTROPHIL ABSOLUTE 10.87(H) 1.80 - 7.70 K/uL 07/08/2024 4:15 AM [employer] [facility] LYMPHOCYTE ABSOLUTE 1.75 1.00 - 3.30 K/uL 07/08/2024 4:15 AM [employer] [facility] MONOCYTE ABSOLUTE 0.22 0.00 - 0.80 K/uL 07/08/2024 4:15 AM [employer] [facility] EOSINOPHIL ABSOLUTE 0.00 0.00 - 0.45 K/uL 07/08/2024 4:15 AM [employer] [facility] BASOPHILS ABSOLUTE 0.03 0.00 - 0.20 K/uL 07/08/2024 4:15 AM [employer] IMMATURE GRANULOCYTES ABSOLUTE 0.05 0.00 - 0.31 K/uL 07/08/2024 4:15 AM [employer] SUPER[employer] [facility] Blood Collection / Unknown 07/08/2024 4:08 AM [employer] SUPER[employer] 07/08/2024 4:14 AM [employer] Matthew Steve MD HEMATOLOGY ORDERABLE S [facility] CLIA # [id number] [address] [phone] documented in this encounter Visit Diagnoses Diagnosis Intractable nausea and vomiting- Primary Persistent vomiting Intractable vomiting Persistent vomiting Epigastric pain Abdominal pain, epigastric Dehydration Anxiety and depression Dysthymic disorder Bipolar disorder, unspecified Marijuana use Cannabis abuse, unspecified Epigastric pain Abdominal pain, epigastric Hypokalemia Hypopotassemia High anion gap metabolic acidosis Acidosis History of PSVT (paroxysmal supraventricular tachycardia) Personal history of other diseases of circulatory system Intractable vomiting Persistent vomiting Dehydration Overweight with body mass index (BMI) of 25 to 25.9 in adult Hypophosphatemia Disorders of phosphorus metabolism documented in this encounter Administered Medications Inactive Administered Medications - up to 3 most recent administrations Medication Order MAR Action Action Date Dose Rate Site ARIPiprazole (ABILIFY) tablet 2 mg 2 mg, Oral, DAILY, First dose on Mon07/08/24 at 0900, Until Discontinued, Routine Given 07/08/2024 8:14 AM [employer] SUPER[employer]OR 2 mg dextrose 5 % in water 250 mL flush bag 25 mL 25 mL, IV, SEE ADMIN INSTRUCTIONS, Starting on Mon07/08/24 at 0634, Until Mon07/08/24 at 1819, Routine diphenhydrAMINE (BENADRYL) injection 50 mg 50 mg, IV, ONE TIME ONLY, 1 dose, On Mon07/08/24 at 0415, Routine Given 07/08/2024 4:19 AM [employer] 50 mg DULoxetine (CYMBALTA) capsule 60 mg 60 mg, Oral, DAILY, First dose on Mon07/08/24 at 0900, Until Discontinued, Routine, Previous Med: DULoxetine (CYMBALTA) 60 mg Capsule, Delayed Release(E.C.) - Orig Sig - TK 1 C PO QD Given 07/08/2024 8:14 AM [employer] 60 mg enoxaparin (LOVENOX) injection 40 mg 40 mg, subCUT, EVERY 24 HOURS, First dose on Mon07/08/24 at 0645, Until Discontinued, Routine, Indication: Prophylaxis of VTE, Dose to be adjusted per facility protocol? Yes Given 07/08/2024 8:12 AM [employer] SUPER[employer]OR 40 mg Abdominal Tissue iopamidoL (ISOVUE-300) 61% injection (drawn from multi-use bulk pack) 100 mL 100 mL, IV, INTRA-PROCEDURE ONCE, 1 dose, Starting on Mon07/08/24 at 0507, Until Mon07/08/24 at 0507, Routine Contrast Given 07/08/2024 5:07 AM [employer] SUPER[employer]OR 100 mL LORazepam (ATIVAN) 2 mg/mL injection 2 mg 2 mg, IV, ONE TIME ONLY, 1 dose, On Mon07/08/24 at 0515, Routine Given 07/08/2024 5:15 AM [employer]PER[employer] 2 mg morphine 4 mg/mL injection 4 mg 4 mg, IV, ONE TIME ONLY, 1 dose, On Mon07/08/24 at 0415, Routine Given 07/08/2024 4:18 AM [employer] SUPER[employer]OR 4 mg ondansetron (ZOFRAN ODT) tablet 4 mg 4 mg, Sublingual, EVERY 8 HOURS PRN, Starting on Mon07/08/24 at 0929, Until Mon07/08/24 at 1819, Nausea/Emesis, Routine ondansetron (ZOFRAN) 4 mg/2 mL injection 4 mg 4 mg, IV, EVERY 6 HOURS PRN, Starting on Mon07/08/24 at 0928, Until Mon07/08/24 at 1819, Nausea/Emesis, 2nd line, Routine Given 07/08/2024 12:38 PM [employer] 4 mg pantoprazole (PROTONIX) 40 mg in sodium chloride 0.9% 10 mL injection 40 mg, IV, ONE TIME ONLY, 1 dose, On Mon07/08/24 at 0415, Routine, For vial+diluent: 10 mL NS is needed to reconstitute pantoprazole vial. For doses less than 40 mg Epic may default less than 10 mL NS. Pharmacist to change NS dispense amount to 10 mL., Indication: Stress ulcer prophylaxis Given 07/08/2024 4:22 AM [employer] SUPERVISOR 40 mg pantoprazole (PROTONIX) tablet 40 mg 40 mg, Oral, DAILY BEFORE BREAKFAST, First dose on Mon07/08/24 at 0730, Until Discontinued, Routine, Indication: Gastroesophageal reflux disease (GERD) Given 07/08/2024 8:14 AM [employer] SUPER[employer]OR 40 mg potassium chloride 40 mEq in sodium chloride 0.9% 250 mL IVPB 40 mEq, IV, ONE TIME ONLY, 1 dose, On Mon07/08/24 at 0730, at 76.25 mL/hr, Administer over 4 Hours, Routine New Bag 07/08/2024 9:13 AM [employer] SUPER[employer]OR 40 mEq 76.25 mL/hr potassium CHLORIDE in dextrose 5% - NaCl 0.45% 1,000 mL 20 mEq/L infusion IV, at 75 mL/hr, CONTINUOUS, Starting on Mon07/08/24 at 0715, Until Mon07/08/24 at 0931, Routine New Bag 07/08/2024 8:13 AM [employer] 75 mL/hr prochlorperazine (COMPAZINE) injection 10 mg 10 mg, IV, ONE TIME ONLY, 1 dose, On Mon07/08/24 at 0415, Routine Given 07/08/2024 4:20 AM [employer]PER[employer]OR 10 mg prochlorperazine (COMPAZINE) injection 10 mg 10 mg, IV, EVERY 6 HOURS PRN, Starting on Mon07/08/24 at 0929, Until Mon07/08/24 at 1819, Nausea/Emesis, 3rd line, Routine sodium chloride 0.9 % flush bag 25 mL 25 mL, IV, SEE ADMIN INSTRUCTIONS, Starting on Mon07/08/24 at 0634, Until Mon07/08/24 at 1819, Routine sodium chloride 0.9% bolus solution 1,000 mL 1,000 mL, IV, ONE TIME ONLY, 1 dose, On Mon07/08/24 at 0415, at 2,000 mL/hr, Administer over 30 Minutes, Routine Bolus 07/08/2024 4:30 AM [employer] SUPER[employer]OR 1,000 mL 2000 mL/hr sodium chloride 0.9% infusion IV, at 100 mL/hr, CONTINUOUS, Starting on Mon07/08/24 at 0415, Until Mon07/08/24 at 0636, Routine New Bag 07/08/2024 5:23 AM [employer] SUPER[employer] 100 mL/hr sodium chloride flush injection 5 mL 5 mL, IV, EVERY 12 HOURS (BlD), First dose on Mon07/08/24 at 0900, Until Discontinued, Routine Given 07/08/2024 8:13 AM [employer] SUPER[employer]OR 5 mL sodium chloride flush injection 5 mL 5 mL, IV, SEE ADMIN INSTRUCTIONS, Starting on Mon07/08/24 at 0634, Until Mon07/08/24 at 181, Routine verapamiL (CALAN) tablet 80 mg 80 mg, Oral, DAILY, First dose on Mon07/08/24 at 0900, Until Discontinued, Routine, Previous Med: verapamiL (CALAN) 80 mg tablet - Orig Sig - Take 40 mg by mouth daily. Given 07/08/2024 8:14 AM [employer] SUPER[employer]OR 80 mg documented in this encounter Active and Recently Administered Medications Times are shown in [employer]. Scheduled Medication Order 07/06/2024 07/07/2024 07/08/2024 ARIPiprazole (ABILIFY) tablet 2 mg 2 mg, Oral, DAILY, First dose on Mon07/08/24 at 0900, Until Discontinued, Routine 08 (Given - Provid er: Olga Millan RN) dextrose 5 % in water 250 mL flush bag 25 mL 25 mL, IV, SEE ADMIN INSTRUCTIONS, Starting on Mon07/08/24 at 0634, Until Mon07/08/24 at 1819, Routine diphenhydrAMINE (BENADRYL) injection 50 mg (COMPLETED) 50 mg, IV, ONE TIME ONLY, 1 dose, On Mon07/08/24 at 0415, Routine 0419 (Given - Provid er: Lacey Bryson RN) DULoxetine (CYMBALTA) capsule 60 mg 60 mg, Oral, DAILY, First dose on Mon07/08/24 at 0900, Until Discontinued, Routine, Previous Med: DULoxetine (CYMBALTA) 60 mg Capsule, Delayed Release(E.C.) - Orig Sig - TK 1 C PO QD 0814 (Given - Provid er: Olga Millan RN) enoxaparin (LOVENOX) injection 40 mg 40 mg, subCUT, EVERY 24 HOURS, First dose on Mon07/08/24 at 0645, Until Discontinued, Routine, Indication: Prophylaxis of VTE, Dose to be adjusted per facility protocol? Yes 08 (Given - Provid er: Olga Millan RN) iopamidoL (ISOVUE-300) 61% injection (drawn from multi-use bulk pack) 100 mL (COMPLETED) 100 mL, IV, INTRA-PROCEDURE ONCE, 1 dose, Starting on Mon07/08/24 at 0507, Until Mon07/08/24 at 0507, Routine 0507 (Contrast Given - Provider: Odalys Cardenas, RT) LORazepam (ATIVAN) 2 mg/mL injection 2 mg (COMPLETED) 2 mg, IV, ONE TIME ONLY, 1 dose, On Mon07/08/24 at 0515, Routine 0515 (Given - Provid er: Lacey Bryson RN) lumateperone (CAPLYTA) capsule 21 mg 21 mg, Oral, DAILY, First dose on Mon07/08/24 at 0900, Until Discontinued, Routine, Previous Med: lumateperone (Caplyta) 21 mg Capsule - Orig Sig - Take 21 mg by mouth daily. morphine 4 mg/mL injection 4 mg (COMPLETED) 4 mg, IV, ONE TIME ONLY, 1 dose, On Mon07/08/24 at 0415, Routine 0418 (Given - Provid er: Lacey Byrson RN) naloxone (NARCAN) 0.4 mg/mL injection 0.1-0.4 mg 0.1-0.4 mg, IV, SEE ADMIN INSTRUCTIONS, Starting on Mon07/08/24 at 0627, Until Mon07/08/24 at 1819, Routine pantoprazole (PROTONIX) 40 mg in sodium chloride 0.9% 10 mL injection (COMPLETED) 40 mg, IV, ONE TIME ONLY, 1 dose, On Mon07/08/24 at 0415, Routine, For vial+diluent: 10 mL NS is needed to reconstitute pantoprazole vial. For doses less than 40 mg Epic may default less than 10 mL NS. Pharmacist to change NS dispense amount to 10 mL., Indication: Stress ulcer prophylaxis 0422 (Given - Provid er: Lacey Bryson RN) pantoprazole (PROTONIX) tablet 40 mg 40 mg, Oral, DAILY BEFORE BREAKFAST, First dose on Mon07/08/24 at 0730, Until Discontinued, Routine, Indication: Gastroesophageal reflux disease (GERD) 0814 (Given - Provid er: Olga Millan RN) potassium chloride 40 mEq in sodium chloride 0.9% 250 mL IVPB (COMPLETED) 40 mEq, IV, ONE TIME ONLY, 1 dose, On Mon07/08/24 at 0730, at 76.25 mL/hr, Administer over 4 Hours, Routine 0913 (New Bag - Prov ider: Olga Millan RN)1313 (Stopped - Provider: Olga Millan RN) prochlorperazine (COMPAZINE) injection 10 mg (COMPLETED) 10 mg, IV, ONE TIME ONLY, 1 dose, On Mon07/08/24 at 0415, Routine 0420 (Given - Provid er: Lacey Bryson RN) sodium chloride 0.9 % flush bag 25 mL 25 mL, IV, SEE ADMIN INSTRUCTIONS, Starting on Mon07/08/24 at 0634, Until Mon07/08/24 at 1819, Routine sodium chloride 0.9% bolus solution 1,000 mL (COMPLETED) 1,000 mL, IV, ONE TIME ONLY, 1 dose, On Mon07/08/24 at 0415, at 2,000 mL/hr, Administer over 30 Minutes, Routine 0430 (Bolus - Provid er: Lacey Bryson RN)0526 (Stopped - Provider: Lacey Bryson RN) sodium chloride flush injection 5 mL 5 mL, IV, EVERY 12 HOURS (BlD), First dose on Mon07/08/24 at 0900, Until Discontinued, Routine 08 (Given - Provid er: Olga Millan RN) sodium chloride flush injection 5 mL 5 mL, IV, SEE ADMIN INSTRUCTIONS, Starting on Mon07/08/24 at 0634, Until Mon07/08/24 at 1819, Routine traZODone (DESYREL) tablet 50 mg 50 mg, Oral, DAILY AT BEDTIME, First dose on Mon07/08/24 at 2100, Until Discontinued, Routine verapamiL (CALAN) tablet 80 mg 80 mg, Oral, DAILY, First dose on Mon07/08/24 at 0900, Until Discontinued, Routine, Previous Med: verapamiL (CALAN) 80 mg tablet - Orig Sig - Take 40 mg by mouth daily. 0814 (Given - Provid er: Olga Millan RN) Continuous Medication Order 07/06/2024 07/07/2024 07/08/2024 potassium CHLORIDE in dextrose 5% - NaCl 0.45% 1,000 mL 20 mEq/L infusion (CANCELED) IV, at 75 mL/hr, CONTINUOUS, Starting on Mon07/08/24 at 0715, Until Mon07/08/24 at 0931, Routine 0813 (New Bag - Prov ider: Olga Millan RN)0943 (Stopped - Provider: Olga Millan RN) sodium chloride 0.9% infusion (CANCELED) IV, at 100 mL/hr, CONTINUOUS, Starting on Mon07/08/24 at 0415, Until Mon07/08/24 at 0636, Routine 0523 (New Bag - Prov ider: Lacey Bryson RN)0815 (Stopped - Provider: Olga Millan RN) PRN Medication Order 07/06/2024 07/07/2024 07/08/2024 clonazePAM (KlonoPIN) tablet 0.25 mg 0.25 mg, Oral, THREE TIMES DAILY PRN, Starting on Mon07/08/24 at 0626, Until Mon07/08/24 at 1819, Other (See Comment), anxiety, Previous Med: CLONAZEPAM ORAL - Orig Sig - Take 0.25 mg by mouth 3 times daily as needed for Other (See Comment) (anxiety). ondansetron (ZOFRAN ODT) tablet 4 mg 4 mg, Sublingual, EVERY 8 HOURS PRN, Starting on Mon07/08/24 at 0929, Until Mon07/08/24 at 1819, Nausea/Emesis, Routine ondansetron (ZOFRAN) 4 mg/2 mL injection 4 mg 4 mg, IV, EVERY 6 HOURS PRN, Starting on Mon07/08/24 at 0928, Until Mon07/08/24 at 1819, Nausea/Emesis, 2nd line, Routine 1238 (Given - Provid er: Olga Millan RN) prochlorperazine (COMPAZINE) injection 10 mg 10 mg, IV, EVERY 6 HOURS PRN, Starting on Mon07/08/24 at 0929, Until Mon07/08/24 at 1819, Nausea/Emesis, 3rd line, Routine documented in this encounter Care Teams Nuclear Equipment Sales Engineer Relationship Specialty Start Date End Date Isis Duff MD [address] [place] [id number] PCP - General Family Practice 07/07/24 documented as of this encounter
--- OUTSIDE RECORDS SUMMARY | 2024-07-30 14:16 | XMS_ITS | Encounter Summary ---
Author Organization [employer] Address [address] [place] [address] Care Team Providers Care Systems Architect Name Role Phone Dona Beyer MD Primary Care Provider [phone] Encounter Details Date Type Department Care Team (Late st Contact Info) Description 09/08/2023 External Device Data [facility] ABSTRACTION Provider, Abstract [...] on filedocumented in this encounter Care Teams Systems Architect Relationship Specialty Start Date End Date Dona Beyer MD PCP - General Telegraph Operator 05/14/20 07/06/24 documented as of this encounter
--- OUTSIDE RECORDS SUMMARY | 2024-07-30 14:16 | XMS_ITS | Encounter Summary ---
Author Organization [facility] Address [address] [place]: Epic Prelude ADT [place] [phone] Care Team Providers Care Cardiology Consultant Name Role Phone Dona Beyer MD Primary Care Provider [phone] Encounter Details Date Type Department Care Team (Latest Contact Info) Description 04/07/2022 Travel Social History Tobacco Use Types Packs/Day Years Used Date Smoking Tobacco: Never Smokeless Tobacco: Never Alcohol Use Standard Drinks/Week Comments Yes 0 (1 standard drink = 0.6 oz pur e alcohol) Sex and Gender Information Value Date Recorded Sex Assigned at Not on file Gender Identity Not on file Sexual Orientation Not on file COVID-19 Exposure Response Date Recorded In the last 10 days, have yo u been in contact with someone who was confirmed or suspected to have Coronavirus/COVID-19? No / Unsure 04/07/2022 10:10 AM CDT documented as of this encounter Plan of Treatment Not on file documented as of this encounter Visit Diagnoses Not on filedocumented in this encounter Care Teams Cardiology Consultant Relationship Specialty Start Date End Date Dona Beyer MD PCP - General Fundraising Coordinator 05/14/20 07/06/24 documented as of this encounter
--- OUTSIDE RECORDS SUMMARY | 2024-07-30 14:16 | XMS_ITS | Encounter Summary ---
Author Organization [facility] Address [address] [place] [address] Care Team Providers Care Greeting Card Writer Name Role Phone Unavailable Primary Care Provider Unavailabl e Encounter Details Date Type Department Care Team (Late st Contact Info) Description 01/09/2020 11:00 AM CDT Lab Services [facility] [address] Mobile Testing Unit [address] [address] Suspected COVID-19 virus infection Social History Tobacco Use Types Packs/Day [...] Procedure Name Priority Date/Time Associated Diagnosis Comments 2019 NOVEL CORONAVIRUS (SARS-COV-2) Routine 01/09/2020 11:25 AM CDT Suspected COVID-19 virus infection documented in this encounter Results * 2019 Novel Coronavirus (SARS-CoV-2) (01/09/2020 11:25 AM CDT) SOURCE, 2019 NOVEL CORONAVIRUS (SARS-COV-2) NASOPHARYNGEAL SWAB [facility] [place] SARS-CoV-2 by PCR NOT DETECTED NOT DETECTED [facility] [place] Comment: Negative for SARS-CoV-2 (2019-nCoV) nucleic acid in the specimen, consider other viruses. Negative results must be combined with clinical observations, patient history, and epidemiological information. This result was obtained by TMA based method and analysis by fluorescent probes designed for the qualitative detection of the SARS-CoV-2 (2018-nCoV) nucleic acid. Performance characteristics for the test has been determined by [employer] and are incorporated as part of FDA Emergency Use Authorization (EUA). This test was performed by [facility] using the FDA cleared Emergency Use Authorization (EUA) assay. This laboratory is certified under the Clinical Laboratory Improvement Amendments (CLIA) as qualified to perform high complexity clinical laboratory testing. Isolation Guidelines [facility] [place] Comment: Do not use this test result as [...] Toolkit for most up to date information: https://www.[facility].com/vxikp-29-gigy/ Swab NASOPHARYNGEAL STRUCTURE / Unknown 01/09/2020 11:25 AM CDT 01/09/2020 3:38 PM CDT Matthieu Dow MD [facility] - [facility] [place] [address] [place] [address] documented in this encounter Visit Diagnoses Diagnosis Suspected COVID-19 virus infection documented in this encounter
--- OUTSIDE RECORDS SUMMARY | 2024-07-30 14:16 | XMS_ITS | Encounter Summary ---
Author Organization [facility] Address [address] [place] [address] Care Team Providers Care Financial Reserve Clerk Name Role Phone Dona Beyer MD Primary Care Provider [phone] Reason for Visit * Reason Onset Date Comments Needs Appointment 04/06/2023 Encounter Details Date Type Department Care Team (Late st Contact Info) Description 04/06/2023 Telephone [facility] RELEASE OF INFORMATION SPECIALIST [address] [place] [address] Uyen Bingham MD [address] [place] [address] [place] [address] Needs Appointment Social History Tobacco Use Types Packs/Day [...] encounter Miscellaneous Notes * Telephone Encounter - Corin Beverly RN - 04/06/2023 2:05 PM CDT LVM informing patient of need for appointment as overdue and requesting refills. Informed once scheduled, would be able to reill to get to appointment. Awaiting patient to return phone call to be scheduled at this time. Corin Fuchs RN, BSN International Flight Attendant IV RELEASE OF INFORMATION SPECIALIST [address] [place] [address] Dr, [address] [place] [address] Office: [phone] Women's Health Clinical [facility] [address] [place] [facility] [place] [address] Office: [phone] * Telephone Encounter - Corin Beverly RN - 04/06/2023 2:04 PM CDT ----- Message from Uyen Bazzi MD sent at 04/06/2023 1:37 PM CDT ----- Patient requested refill, needs WWE Thanks! documented in this encounter Plan of Treatment Not on file documented as of this encounter Visit Diagnoses Not on filedocumented in this encounter Care Teams Financial Reserve Clerk Relationship Specialty Start Date End Date Dona Beyer MD PCP - General Wool Hat Forming Machine Tender 05/14/20 07/06/24 documented as of this encounter
--- OUTSIDE RECORDS SUMMARY | 2024-07-30 14:16 | XMS_ITS | Encounter Summary ---
Author Organization [facility] Address [address] [facility] Attn: Epic Prelude ADT [place] [address] Care Team Providers Care Furnace Stock Inspector Name Role Phone Geo Duff MD Primary Care Provider [phone] Encounter Details Date Type Department Care Team (Latest Contact Info) Description 07/07/2024 Travel Social History Tobacco Use Types Packs/Day [...] filedocumented in this encounter Care Teams Furnace Stock Inspector Relationship Specialty Start Date End Date Geo Duff MD [address] [address] [place] [address] PCP - General Family Practice 07/07/24 documented as of this encounter
--- OUTSIDE RECORDS SUMMARY | 2024-07-30 14:16 | XMS_ITS | Encounter Summary ---
Author Organization [email or web address] Address [address] [place] [address] Care Team Providers Care Special Skills Officer Name Role Phone Dona Beyer MD Primary Care Provider Encounter Details Date Type Department Care Team (Late st Contact Info) Description 09/09/2023 External Device Data STL ABSTRACTION Provider, Abstract [...] on filedocumented in this encounter Care Teams Special Skills Officer Relationship Specialty Start Date End Date Dona Beyer MD PCP - General Rn Gyn 05/14/20 07/06/24 documented as of this encounter
--- OUTSIDE RECORDS SUMMARY | 2024-07-30 14:16 | XMS_ITS | Encounter Summary ---
Author Organization [employer] Address [address] [place] [address] Care Team Providers Care Counseling Center Manager Name Role Phone Dona Beyer MD Primary Care Provider [phone] Encounter Details Date Type Department Care Team [...] on filedocumented in this encounter Care Teams Counseling Center Manager Relationship Specialty Start Date End Date Dona Beyer MD PCP - General Motor Runner 05/14/20 07/06/24 documented as of this encounter
--- OUTSIDE RECORDS SUMMARY | 2024-07-30 14:16 | XMS_ITS | Encounter Summary ---
Author Organization [facility] Address [address] [place] [address] Care Team Providers Care Test Deskman Name Role Phone Dona Beyer MD Primary Care Provider [phone] Reason for Visit * Reason Comments Med Refill Encounter Details Date Type Department Care Team (Late st Contact Info) Description 04/06/2023 Refill [facility] Women's Health Clinical Support [address] [place] [address] [place] [address] [place] [address] Social History Tobacco Use Types Packs/Day Years [...] on filedocumented in this encounter Care Teams Test Deskman Relationship Specialty Start Date End Date Dona Beyer MD PCP - General Pulmonary Specialist 05/14/20 07/06/24 documented as of this encounter
--- OUTSIDE RECORDS SUMMARY | 2024-07-30 14:16 | XMS_ITS | Encounter Summary ---
Author Organization [employer] Address [address] [place] [address] Care Team Providers Care District Medical Examiner Name Role Phone Geo Duff MD Primary Care Provider [phone] Encounter Details Date Type Department Care Team (Late st Contact Info) Description 07/16/2024 External Device Data STL ABSTRACTION [...] on filedocumented in this encounter Care Teams District Medical Examiner Relationship Specialty Start Date End Date Geo Duff MD [address] [address] [place] [address] PCP - General Family Practice 07/07/24 documented as of this encounter
--- OUTSIDE RECORDS SUMMARY | 2024-07-30 14:16 | XMS_ITS | Encounter Summary ---
Author Organization [employer] Address [address] [place] [address] Care Team Providers Care Drive In Teller Name Role Phone Dona Beyer MD Primary Care Provider Encounter Details Date Type Department Care Team (Late st Contact Info) Description 09/13/2023 External Device Data STL ABSTRACTION Provider, Abstract [...] on filedocumented in this encounter Care Teams Drive In Teller Relationship Specialty Start Date End Date Dona Beyer MD PCP - General Airborne And Air Delivery Specialist 05/14/20 07/06/24 documented as of this encounter
--- OUTSIDE RECORDS SUMMARY | 2024-07-30 14:16 | XMS_ITS | Encounter Summary ---
Author Organization [facility] Address [address] [place] [address] Care Team Providers Care Manager Chemistry Name Role Phone Unavailable Primary Care Provider Unavailabl e Reason for Visit * Reason Comments Suspected Coronavirus (Covid-19) Encounter Details Date Type Department Care Team ([facility] st Contact Info) Description 12/30/2019 Telephone Population Health Support [address] [place] [address] Aletha Harden, RUBÉN Suspected Coronavirus (Covid-19) Social History Tobacco Use Types Packs/Day Years [...]
--- OUTSIDE RECORDS SUMMARY | 2024-07-30 14:16 | XMS_ITS | Encounter Summary ---
Author Organization [employer] Address [address] [place] [address] Care Team Providers Care Regeneration Operator Name Role Phone Geo Duff MD Primary Care Provider [phone] Encounter Details Date Type Department Care Team (Late st Contact Info) Description 07/09/2024 External Device Data STL ABSTRACTION Provider, [...] on filedocumented in this encounter Care Teams Regeneration Operator Relationship Specialty Start Date End Date Geo Duff MD [address] [address] [place] [phone] PCP - General Family Practice 07/07/24 documented as of this encounter
--- OUTSIDE RECORDS SUMMARY | 2024-07-30 14:16 | XMS_ITS | Encounter Summary ---
Author Organization [employer] Address [address] [place] [address] Care Team Providers Care Customer Relations Advisor Name Role Phone Dona Beyer MD Primary Care Provider [phone] Encounter Details Date Type Department Care Team [...] on filedocumented in this encounter Care Teams Customer Relations Advisor Relationship Specialty Start Date End Date Dona Beyer MD PCP - General Histological Illustrator 05/14/20 07/06/24 documented as of this encounter
--- OUTSIDE RECORDS SUMMARY | 2024-07-30 14:16 | XMS_ITS | Encounter Summary ---
Author Organization [facility] Address [address] [place] [address] Care Team Providers Care Parasitologist Name Role Phone Dona Beyer MD Primary Care Provider [phone] Reason for Visit * Reason Onset Date Comments Medication Assistance 04/05/2023 Encounter Details Date Type Department Care Team (Late st Contact Info) Description 04/05/2023 Telephone [facility] Clinical Support [address] [place] [address] [place] [address] [place] [address] Medication Assistance Social History Tobacco Use Types Packs/Day Years [...] encounter Miscellaneous Notes * Telephone Encounter - Jeanine Smith RN - 04/05/2023 9:12 AM CDT Pt states jolessa unavailable--send in seasonique--Pt needs well woman appointment--[facility] [place] documented in this encounter Plan of Treatment Not on file documented as of this encounter Visit Diagnoses Not on filedocumented in this encounter Care Teams Parasitologist Relationship Specialty Start Date End Date Dona Beyer MD PCP - General Cheese Specialist 05/14/20 07/06/24 documented as of this encounter
--- OUTSIDE RECORDS SUMMARY | 2024-07-30 14:17 | XMS_ITS | Encounter Summary ---
Author Organization [facility] Address [address] [place] [address] Care Team Providers Care Postal Supervisor Name Role Phone Dona Beyer MD Primary Care Provider [phone] Reason for Visit * Reason Comments Sore Throat X2 days Ear Pain Bilateral ear pain x 2 days Encounter Details Date Type Department Care Team (Late st Contact Info) Description 03/18/2022 2:00 PM CDT Office Visit [facility] [address] [place] [id number] Aura Chaves, CHANGE MANAGEMENT FACILITATOR [address] [place] [address] Exudative tonsillitis (Primary Dx); Impacted cerumen of left ear; Throat pain Social History Tobacco Use Types Packs/Day [...] was confirmed or suspected to have Coronavirus/COVID-19? Unable to assess 03/18/2022 1:57 PM CDT documented as of this encounter Last Filed Vital Signs Vital Sign Reading Time Taken Comments Blood Pressure 121/79 03/18/2022 2:03 PM CDT Pulse 95 03/18/2022 2:03 PM CDT Temperature 36.9 ??C (98.5 ??F) 03/18/2022 2:03 PM CD T Respiratory Rate 16 03/18/2022 2:03 PM CDT Oxygen Saturation 100% 03/18/2022 2:03 PM CDT Inhaled Oxygen Concentration - - Weight 52.2 kg (115 lb) 03/18/2022 2:03 PM CDT Height 154.9 cm (5' 1 ) 03/18/2022 2:03 PM CDT Body Mass Index 21.73 03/18/2022 2:03 PM CDT documented in this encounter Progress Notes * Aura Chaves FNP - 03/18/2022 2:00 PM CDT Assessment and Plan Encounter Diagnoses Name Primary? Exudative tonsillitis Yes ??? Impacted cerumen of left ear ??? Throat pain Cata was seen today for sore throat and ear pain. Diagnoses and all orders for this visit: Exudative tonsillitis Impacted cerumen of left ear Throat pain - POC RAPID STREP A ANTIGEN Other orders - amoxicillin (AMOXIL) 875 mg tablet; Take 1 Tablet (875 mg) by mouth every 12 hours for 10 days. - carbamide peroxide (Debrox) 6.5 % Drops; Administer 5 Drops in left ear 2 times daily for 3 days. Comment: ? Patient is low risk for complications, vital signs and exam are reassuring. ? The following higher risk features were not present this visit: Throat abscess, stridor, unstableVS ? Advised hydration, NSAIDs as needed for pain and fever. ? Return if symptoms worsen or fail to improve. Clinical Tools Modified Centor Score Subjective History of present illness Cata Chavira is a 36 y.o. female who presents with sore throat and ear pain x 2 days Location: bilaterally Duration: several days ago Progression: unchanged Severity: moderate Fever: No Drooling: No Review of Systems Const: see HPI Neck: no neck pain CV: no chest pain Resp: no shortness of breath Outpatient Medications Marked as Taking for the 03/18/22 encounter (Office Visit) with Aura Chaves FNP Medication Sig Dispense Refill ??? amoxicillin (AMOXIL) 875 mg tablet Take 1 Tablet (875 mg) by mouth every 12 hours for 10 days. 20 Tablet 0 ??? carbamide peroxide (Debrox) 6.5 % Drops Administer 5 Drops in left ear 2 times daily for 3 days. 0 ??? Ashlyna 0.15 mg-30 mcg (84)/10 mcg (7) Tablet, Dose Pack, 3 Months TK 1 T PO QD 84 Tablet 0 ??? buPROPion HCL (WELLBUTRIN SR) 150 mg Sustained Release 12 hour tablet Take 150 mg by mouth 2 times daily. ??? clonazePAM (KlonoPIN) 0.5 mg Tablet Take 0.5 mg by mouth. ??? DULoxetine (CYMBALTA) 60 mg Capsule, Delayed Release(E.C.) TK 1 C PO QD ??? lamoTRIgine (LaMICtal) 100 mg tablet ??? omeprazole (PriLOSEC) 20 mg Capsule, Delayed Release(E.C.) Take 20 mg by mouth. ??? traZODone (DESYREL) 50 mg tablet Patient Active Problem List Diagnosis Date Noted ??? History of cervical dysplasia 2019, hx LEEP 2019 05/14/2020 Overview Note: 2019. Pap normal ??? Oral contraceptive use - 3mo continuous 05/14/2020 ??? History of vulvar vestibulitis, responds well to Cymbalta 05/14/2020 Social History Tobacco Use ??? Smoking status: Never Smoker ??? Smokeless tobacco: Never Used Vaping Use ??? Vaping Use: Never used Substance Use Topics ??? Alcohol use: Yes ??? Drug use: Never Objective Vitals: 03/18/22 1403 BP: 121/79 Pulse: 95 Resp: 16 Temp: 98.5 ??F (36.9 ??C) SpO2: 100% General:?well developed, well nourished, no acute distress. Eyes: No conjunctival injection or discharge. Ear: unable to visualize left TM due to cerumen impaction. Pt does not want ear lavage today due topain Nose/sinus: no congestion or sinus tenderness Throat: tonsillary hypertrophy 2+ with erythema edema and exudates Lung: clear, normal work or breathing Neck: No stridor. Normal ROM. Heart: Regular rhythm, no murmurs Psychiatric: Affect and mood normal. Interactive and conversant. Alert and oriented. Skin: Warm and dry without visible rash. Lymphatic: No palpable lymphadenopathy. Non tender nodes. documented in this encounter Miscellaneous Notes * Patient Instructions - Aura Chaves, DELGADO - 03/18/2022 2:00 PM CDT Images from the original note were not included. Tonsillitis: Care Instructions Overview Tonsillitis is an infection of the tonsils that is caused by bacteria or a virus. The tonsils are in the back of the throat and are part of the immune system. Tonsillitis typically lasts from a few days up to a couple of weeks. Tonsillitis caused by a virus goes away on its own. Tonsillitis caused by the bacteria that causes strep throat is treated with antibiotics. You and your doctor may consider surgery to remove the tonsils (tonsillectomy) if you have serious complications or repeat infections. Follow-up care is a howe part of your treatment and safety. Be sure to make and go to all appointments, and call your doctor if you are having problems. It's also a good idea to know your test resultsand keep a list of the medicines you take. How can you care for yourself at home? Home care can help with a sore throat and other symptoms. Here are some things you can do to help yourself feel better. ??? If your doctor prescribed antibiotics, take them as directed. Do not stop taking them just because you feel better. You need to take the full course of antibiotics. ??? Gargle with warm salt water. This helps reduce swelling and relieve discomfort. Gargle once an hour with 1 teaspoon of salt mixed in 8 fluid ounces of warm water. ??? Take an srzf-alx-htdczvk pain medicine, such as acetaminophen (Tylenol), ibuprofen (Advil, Motrin), or naproxen (Aleve). Be safe with medicines. Read and follow all instructions on the label. No one younger than 20 should take aspirin. It has been linked to Dana syndrome, a serious illness. ??? Be careful when taking anyu-zyv-tqcyamh cold or flu medicines and Tylenol at the same time. Many of these medicines have acetaminophen, which is Tylenol. Read the labels to make sure that you arenot taking more than the recommended dose. Too much acetaminophen (Tylenol) can be harmful. ??? Try lozenges or an xwvf-lqr-jrejrlj throat spray to relieve throat pain. ??? Drink plenty of fluids. Fluids may help soothe an irritated throat. Drink warm or cool liquids (whichever feels better). These include tea, soup, and juice. ??? Do not smoke, and avoid secondhand smoke. Smoking can make tonsillitis worse. If you need help quitting, talk to your doctor about stop-smoking programs and medicines. These can increase your chances of quitting for good. ??? Use a vaporizer or humidifier to add moisture to your bedroom. Follow the directions for cleaning the machine. ??? Get plenty of rest. When should you call for help? Call your doctor now or seek immediate medical care if: ? Your pain gets worse on one side of your throat. ? You have a new or higher fever. ? You notice changes in your voice. ? You have trouble opening your mouth. ? You have any trouble breathing. ? You have much more trouble swallowing. ? You have a fever with a stiff neck or a severe headache. ? You are sensitive to light or feel very sleepy or confused. Watch closely for changes in your health, and be sure to contact your doctor if: ? You do not get better after 2 days. Where can you learn more? Go to https://www.[employer].net/patiented Enter M655 in the search box to learn more about Tonsillitis: Care Instructions. Current as of: April 21, 2021?Content Version: 13.3 ?? [employer]. Care instructions adapted under license by your healthcare professional. If you have questions about a medical condition or this instruction, always ask your healthcare professional. These instructions may not represent the values of this healthcare organization. [employer] disclaims any warranty or liability for your use of this information. Earwax Blockage: Care Instructions Overview Earwax is a natural substance that protects the ear canal. Normally, earwax drains from the ears and does not cause problems. Sometimes earwax builds up in the ear canal and hardens. Earwax blockage (also called cerumen impaction) can cause some loss of hearing and pain. When wax is tightly packed,you will need to have your doctor remove it. Follow-up care is a howe part of your treatment and safety. Be sure to make and go to all appointments, and call your doctor if you are having problems. It's also a good idea to know your test resultsand keep a list of the medicines you take. How can you care for yourself at home? Do not try to remove earwax with cotton swabs, fingers, or other objects. This can make the blockage worse and damage the eardrum. ??? If your doctor recommends that you try to remove earwax at home: ? Soften and loosen the earwax with warm mineral oil. You also can try hydrogen peroxide mixed withan equal amount of room temperature water. Place 2 drops of the fluid, warmed to body temperature, in the ear two times a day for up to 5 days. ? Once the wax is loose and soft, all that is usually needed to remove it from the ear canal is a gentle, warm shower. Direct the water into the ear, then tip your head to let the earwax drain out. Dry your ear thoroughly with a hairspring truing inspector set on low. Hold the dryer several inches from your ear. ? If the warm mineral oil and shower do not work, use an rvle-bhw-meqeafh wax softener. Read and follow all instructions on the label. After using the wax softener, use an ear syringe to gently flushthe ear. Make sure the flushing solution is body temperature. Cool or hot fluids in the ear can cause dizziness. When should you call for help? Call your doctor now or seek immediate medical care if: ? Pus or blood drains from your ear. ? Your ears are ringing or feel full. ? You have a loss of hearing. Watch closely for changes in your health, and be sure to contact your doctor if: ? You have pain or reduced hearing after 1 week of home treatment. ? You have any new symptoms, such as nausea or balance problems. Where can you learn more? Go to https://www.healthwise.net/patiented Enter Q495 in the search box to learn more about Earwax Blockage: Care Instructions. Current as of: October 20, 2021?Content Version: 13.3 ?? [employer]. Care instructions adapted under license by your healthcare professional. If you have questions about a medical condition or this instruction, always ask your healthcare professional. These instructions may not represent the values of this healthcare organization. [employer] disclaims any warranty or liability for your use of this information. documented in this encounter Plan of Treatment Not on file documented as of this encounter Visit Diagnoses Diagnosis Exudative tonsillitis- Primary Impacted cerumen of left ear Impacted cerumen Throat pain documented in this encounter Care Teams Postal Supervisor Relationship Specialty Start Date End Date Dona Beyer MD PCP - General Tree Shear Operator 05/14/20 07/06/24 documented as of this encounter
--- OUTSIDE RECORDS SUMMARY | 2024-07-30 14:17 | XMS_ITS | Encounter Summary ---
Author Organization [facility] Address [address] [place] [address] Care Team Providers Care Project Lead Name Role Phone Dona Beyer MD Primary Care Provider [phone] Reason for Visit * Reason Comments Well Woman Exam new/old last pap Encounter Details Date Type Department Care Team (Latest Contact Info) Description 05/14/2020 10:30 AM CDT Office Visit [facility] MARKETING RESEARCH ANALYST [address] [place] [address] Azar Massey MD [address] [place] [address] Well woman exam with routine gynecological exam (Primary Dx); History of cervical dysplasia 2019, hx LEEP 2019; Oral contraceptive use - 3mo continuous; History of vulvar vestibulectomy, responds well to Cymbalta Social History Tobacco Use Types Packs/Day Years [...] or suspected to have Coronavirus / COVID-19? Yes 05/14/2020 10:22 AM CDT documented as of this encounter Last Filed Vital Signs Vital Sign Reading Time Taken Comments Blood Pressure 122/84 05/14/2020 10:40 AM CDT Pulse - - Temperature - - Respiratory Rate - - Oxygen Saturation - - Inhaled Oxygen Concentration - - Weight 47.2 kg (104 lb) 05/14/2020 10:40 AM CDT Height 154.9 cm (5' 1 ) 05/14/2020 10:40 AM CDT Body Mass Index 19.65 05/14/2020 10:40 AM CDT documented in this encounter Progress Notes * Azar Massey MD - 05/14/2020 11:45 AM CDT Well Woman Exam Chief Complaint Patient presents with ??? Well Woman Exam new/old last pap 02/06/2013 35 y.o. presents for WW exam. Allergies Allergen Reactions ??? Reglan [Metoclopramide] Blood Disorder Current Outpatient Medications: ??? buPROPion HCL (Wellbutrin SR) 150 mg Sustained Release 12 hour tablet, Take 150 mg by mouth 2 times daily., Disp: , Rfl: ??? clonazePAM (KlonoPIN) 0.5 mg Tablet, Take 0.5 mg by mouth., Disp: , Rfl: ??? DULoxetine (CYMBALTA) 60 mg Capsule, Delayed Release(E.C.), TK 1 C PO QD, Disp: , Rfl: ??? lamoTRIgine (LaMICtal) 100 mg tablet, , Disp: , Rfl: ??? omeprazole (PriLOSEC) 20 mg Capsule, Delayed Release(E.C.), Take 20 mg by mouth., Disp: , Rfl: ??? traZODone (DESYREL) 50 mg tablet, , Disp: , Rfl: ??? Ashlyna 0.15 mg-30 mcg (84)/10 mcg (7) Tablet, Dose Pack, 3 Months, TK 1 T PO QD, Disp: 84 Tablet, Rfl: 3 ??? [DISCONTINUED] Ashlyna 0.15 mg-30 mcg (84)/10 mcg (7) Tablet, Dose Pack, 3 Months, TK 1 T PO QD, Disp: , Rfl: Past Surgical History: Procedure Laterality Date ??? HX SECTION Colonoscopy: Not age-appropriate for screening Examination: Breasts: mild fibrocystic texture bilateral w/o mass Abd: Soft, no organomegaly nor masses Pelvic: Ext gen & vagina: no lesions, normal mucosa Cx: W/o lesion, thin prep performed [place]: Normal size Adn: No masses Impr: 1. Well woman exam with routine gynecological exam - CERV/VAG CYTO SCREEN PAP RLFX HPV; Future - MAMMO SCREEN BILAT W OR WO CAD; Future 2. History of cervical dysplasia 2019, hx LEEP 2019 She states she had been seen by Dr. Orlando. She does not know what degree of dysplasia she had, buta routine Pap smear led to colposcopy and biopsies, which led to the recommendation for LEEP. 3. Oral contraceptive use - 3mo continuous Age related risks discussed. She might consider an IUD in the future. 4. History of vulvar vestibulitis, responds well to Cymbalta She states that Dr. Orlando had placed her on Cymbalta in the past and it is been quite helpful for the vestibulitis. She states that her therapist can refill the Cymbalta. Orders Placed This Encounter ??? MAMMO SCREEN BILAT W OR WO CAD ??? CERV/VAG CYTOPATH, THIN PREP TECHNICAL SUPPORT MANAGER W/RFLX HPV ??? Ashlyna 0.15 mg-30 mcg (84)/10 mcg (7) Tablet, Dose Pack, 3 Months Azar Massey MD documented in this encounter Plan of Treatment Not on file documented as of this encounter Results * CERV/VAG CYTO SCREEN PAP RLFX HPV (05/14/2020 12:36 PM CDT) CLINICAL INFORMATION Information not provided 05/18/2020 2:22 PM CDT [facility] LAST MENSTRUAL PERIOD INFORMATION NOT PROVIDED 05/18/2020 2:22 PM CDT [facility] PREV PAP: INFORMATION NOT PROVIDED 05/18/2020 2:22 PM CDT [facility] PREV BX: INFORMATION NOT PROVIDED 05/18/2020 2:22 PM CDT [facility] SOURCE Endocervix 05/18/2020 2:22 PM CDT [facility] ADEQUACY: SEE COMMENT 05/18/2020 2:22 PM CDT [facility] Comment: Satisfactory for evaluation. Endocervical/transformation zone component absent. Age and/or menstrual status not provided PAP INTERP Negative for intraepithelial lesion or malignancy. 05/18/2020 2:22 PM CDT [facility] COMMENT This Pap test has been evaluated with computer assisted technology. 05/18/2020 2:22 PM CDT [facility] TOLL BOOTH OPERATOR: SEE COMMENT 2019 2:22 PM CDT [facility] Comment: BLG, CT(ASCP) CT screening location: [place] [address] [place] [address] EXPLANATORY NOTE SEE COMMENT 020 2:22 PM CDT [facility] Comment: EXPLANATORY NOTE: The Pap is a screening test for cervical cancer. It is not a diagnostic test and is subject to false negative and false positive results. It is most reliable when a satisfactory sample, regularly obtained, is submitted with relevant clinical findings and history, and when the Pap result is evaluated along with historic and current clinical information. Genital SWAB OF ENDOCERVIX / Unknown Collection / Unknown 05/14/2020 12:36 PM CDT 05/14/2020 12:36 PM CDT Narrative [facility] - 05/18/2020 2:22 PM CDT Performing Organization Information: ?Site ID: ?Name: [facility] [place] ?Address: [facility] [place] [address] ?Director: Yin Estrella Azar Massey MD PATHOLOGY/CYTOLOGY O RDERABLES [facility] [phone] documented in this encounter Visit Diagnoses Diagnosis Well woman exam with routine gynecological exam- Primary Routine gynecological examination History of cervical dysplasia 2019, hx LEEP 2019 Personal history of cervical dysplasia Oral contraceptive use - 3mo continuous Surveillance of previously prescribed contraceptive pill History of vulvar vestibulectomy, responds well to Cymbalta documented in this encounter Care Teams Project Lead Relationship Specialty Start Date End Date Dona Beyer MD PCP - General Hand Stitcher 05/14/20 07/06/24 documented as of this encounter
--- OUTSIDE RECORDS SUMMARY | 2024-07-30 14:17 | XMS_ITS | Encounter Summary ---
Author Organization [facility] Address [address] [place]: Epic Prelude ADT [place] [address] Care Team Providers Care Personnel Interviewer Name Role Phone Dona Beyer MD Primary Care Provider [phone] Encounter Details Date Type Department Care Team (Latest Contact Info) Description 03/18/2022 Travel Social History Tobacco Use Types Packs/Day [...] PM CDT documented as of this encounter Plan of Treatment Not on file documented as of this encounter Visit Diagnoses Not on filedocumented in this encounter Care Teams Personnel Interviewer Relationship Specialty Start Date End Date Dona Beyer MD PCP - General Mold Capper Helper 05/14/20 07/06/24 documented as of this encounter
--- OUTSIDE RECORDS SUMMARY | 2024-07-30 14:17 | XMS_ITS | Encounter Summary ---
Author Organization [facility] Address [address] [place] [address] Care Team Providers Care Service Mechanic Name Role Phone Dona Beyer MD Primary Care Provider [phone] Reason for Visit * Reason Onset Date Comments Medication Refill 06/18/2021 Encounter Details Date Type Department Care Team (Late st Contact Info) Description 06/18/2021 Telephone [facility] CW OPERATOR [address] [place] [address] Azar Massey MD [address] [place] [address] Medication Refill Social History Tobacco Use Types Packs/Day Years [...] encounter Miscellaneous Notes * Telephone Encounter - Luann Luciano RN - 06/18/2021 11:57 AM CDT [facility] for the pt to call back re: which ocp does she want---brand Jolessa and brand Ashlyna are bothnon reimbursable. * Telephone Encounter - Andie Arevalo - 06/18/2021 9:19 AM CDT DL pt. WWE scheduled 07/14. Needs her Jolessa 90 day OCP refilled before then. Please be sure that it is Jolessa specifically - pt doesn't not want alternativeNeeds her Jolessa 90 day OCP refilled before then. Please be sure that it is Jolessa specifically - pt doesn't not want alternative. Pt askedfor Jolessa specfically not ashylna. Please advise. Mima Roque. documented in this encounter Plan of Treatment Not on file documented as of this encounter Visit Diagnoses Not on filedocumented in this encounter Care Teams Service Mechanic Relationship Specialty Start Date End Date Dona Beyer MD PCP - General Outreach Nurse 05/14/20 07/06/24 documented as of this encounter
--- OUTSIDE RECORDS SUMMARY | 2024-07-30 14:17 | XMS_ITS | Encounter Summary ---
Author Organization [facility] Address [address] [place] [address] Care Team Providers Care Concrete Vibrator Operator Name Role Phone Unavailable Primary Care Provider Unavailabl e Encounter Details Date Type Department Care Team (Late st Contact Info) Description 03/21/2013 Abstract [facility] STITCH BONDING MACHINE DRAWER IN [address] [place] [address] Azar Massey MD [address] [place] [address] Social History Tobacco Use Types Packs/Day Years [...]
--- OUTSIDE RECORDS SUMMARY | 2024-07-30 14:17 | XMS_ITS | Encounter Summary ---
Author Organization [employer] Address [address] [place] [address] Care Team Providers Care Rand Cementer Name Role Phone Dona Beyer MD Primary Care Provider [phone] Encounter Details Date Type Department Care Team (Latest Contact Info) Description 05/14/2020 11:00 AM CDT - 05/14/2020 11:59 PM CDT Hospital Encounter [facility] [employer] [address] [address] Azar Massey MD [address] [place] [address] Discharge Disposition: Home or Self Care Social [...] AM CDT documented as of this encounter Medications at Time of Discharge Medication Sig Dispensed Refills Start Date End Date DULoxetine (CYMBALTA) 60 mg Capsule, Delayed Release(E.C.) Take 60 mg by mouth daily. traZODone (DESYREL) 50 mg tablet Take 50 mg by mouth daily at bedtime. omeprazole 40 mg capsule,delayed release (PriLOSEC) Take 40 mg by mouth 1 time daily as needed. 07/08/2024 Ashlyna 0.15 mg-30 mcg (84)/10 mcg (7) Tablet, Dose Pack, 3 Months TK 1 T PO QD 84 Tablet 3 05/14/2020 06/10/2021 documented as of this encounter Miscellaneous Notes * Result Encounter Note - Azar Massey MD - 05/14/2020 11:00 AM CDT Hx of LEEP 2019 (elsewhere) documented in this encounter Plan of Treatment Not on file documented as of this encounter Procedures Procedure Name Priority Date/Time Associated Diagnosis Comments CERV/VAG CYTO SCREEN PAP RLFX HPV Routine 05/14/2020 12:36 PM CDT Well woman exam with routine gynecological exam documented in this encounter Results * CERV/VAG CYTO SCREEN PAP RLFX HPV (05/14/2020 12:36 PM CDT) CLINICAL INFORMATION Information not provided 05/18/2020 2:22 PM CDT [facility] LAST MENSTRUAL PERIOD INFORMATION NOT PROVIDED 05/18/2020 2:22 PM CDT [facility] PREV PAP: INFORMATION NOT PROVIDED 05/18/2020 2:22 PM CDT [facility] PREV BX: INFORMATION NOT PROVIDED 05/18/2020 2:22 [...] computer assisted technology. 05/18/2020 2:22 PM CDT [facility] ASSOCIATE DIRECTOR OF DEVELOPMENT: SEE COMMENT 2019 2:22 PM CDT [facility] Comment: BLG, CT(ASCP) CT screening location: [place] [address] [place], [place] [address] EXPLANATORY NOTE SEE COMMENT 020 2:22 PM CDT [facility] Comment: EXPLANATORY NOTE: The Pap is a [...] PM CDT 05/14/2020 12:36 PM CDT Narrative [facility] - 05/18/2020 2:22 PM CDT Performing Organization Information: ?Site ID: ?Name: [facility] ?Address: [facility] [place] [address] ?Director: Yin Estrella Azar Massey MD PATHOLOGY/CYTOLOGY O RDERABLES [facility] [phone] documented in this encounter Visit Diagnoses Diagnosis Well woman exam with routine gynecological exam Routine gynecological examination documented in this encounter Care Teams Rand Cementer Relationship Specialty Start Date End Date Dona Beyer MD PCP - General Research And Evaluation Analyst 05/14/20 07/06/24 documented as of this encounter
--- OUTSIDE RECORDS SUMMARY | 2024-07-30 14:17 | XMS_ITS | Encounter Summary ---
Author Organization [facility] Address [address] [place] [address] Care Team Providers Care Counting Machine Operator Name Role Phone Dona Beyer MD Primary Care Provider [phone] Reason for Visit * Reason Onset Date Comments other 06/10/2021 Encounter Details Date Type Department Care Team (Late st Contact Info) Description 06/10/2021 Telephone [facility] SAWMILLING OPERATOR [facility] [address] [place] [address] Azar Massey MD [address] [place] [address] other Social History Tobacco Use Types Packs/Day Years [...] encounter Miscellaneous Notes * Telephone Encounter - Gretel Mejia RN - 06/10/2021 10:17 AM CDT Outcome: The requested medication has been approved and will be sent electronically to the patient's pharmacy on file. (APT Adherence: Q 6MTH or Q 12MTH) Recent Visits Date Type Provider Dept 05/14/20 Office Visit Azar Massey MD [facility] Floor [place] Showing recent visits within past 540 days with a meds authorizing provider and meeting all other requirements Future Appointments Date Type Provider Dept 07/14/21 Appointment Jenny Gaspar NP [facility] Floor [place] Showing future appointments within next 150 days with a meds authorizing provider and meeting all other requirements Appt scheduled: 07/14/2021 Medication being requested: Requested Prescriptions Pending Prescriptions Disp Refills ??? Ashlyna 0.15 mg-30 mcg (84)/10 mcg (7) Tablet, Dose Pack, 3 Months 84 Tablet 3 Sig: TK 1 T PO QD Last Refill Date: 05/14/2020 # of Refills: 3 Thyroid medications- Q12MTH OV and TSH No results found for: TSH, TSHULTRA, THYROIDSTIM Cholesterol medications- Q12MTH OV and Lipid No results found for: CHOLTOT, HDL, LDLCALC, LDLDIRECT, TRIGLYCERIDE DM medications- Q6MTH OV and A1C, MICROALBUMIN LAB Q12MTH HTN medications- Q6MTH OV No results found for: MOYU1PZLM, HGBA1C, GLUCPOC, GLUCOSE, GLUCOSEF, MICROALBUMIN, MALBUR, MICRCREATR Patient call back number: Pharmacy Retail/Mail Order: [id number] - [place], [place] - [address] [facility] * Telephone Encounter - Lacey Suárez RMA - 06/10/2021 9:35 AM CDT DL - Pt has WWE on 07/14 - Needs her Jolessa 90 day OCP refilled before then. Please be sure that itis Barb specifically - pt doesn't not want alternative. Please advise Hernan Roque documented in this encounter Plan of Treatment Not on file documented as of this encounter Visit Diagnoses Not on filedocumented in this encounter Care Teams Counting Machine Operator Relationship Specialty Start Date End Date Dona Beyer MD PCP - General Boilermaker Central Steam Plant 05/14/20 07/06/24 documented as of this encounter
--- OUTSIDE RECORDS SUMMARY | 2024-07-30 14:17 | XMS_ITS | Encounter Summary ---
Author Organization [facility] Address [address] [place]: Epic Prelude ADT [place] [address] Care Team Providers Care Book Sorter Name Role Phone Dona Beyer MD Primary Care Provider [phone] Encounter Details Date Type Department Care Team [...] on filedocumented in this encounter Care Teams Book Sorter Relationship Specialty Start Date End Date Dona Beyer MD PCP - General Horse Identifier 05/14/20 07/06/24 documented as of this encounter
--- OUTSIDE RECORDS SUMMARY | 2024-07-30 14:17 | XMS_ITS | Encounter Summary ---
Author Organization [facility] Address [address] [place] [address] Care Team Providers Care Forestry Technical Officer Name Role Phone Unavailable Primary Care Provider Unavailabl e Reason for Visit * Reason Onset Date Comments Information 04/08/2013 LoEstrin Fr Encounter Details Date Type Department Care Team (Late st Contact Info) Description 04/08/2013 Telephone [facility] WHEEL WORKER [facility] [id number] [place] [address] [address] [place] [address] Azar Massey MD [address] [place] [address] Information (LoEstrin Fr) Social History Tobacco Use Types Packs/Day Years Used Date Smoking Tobacco: Never Assessed Sex and Gender Information Value Date Recorded Sex Assigned at Not on file Gender Identity Not on file Sexual Orientation Not on file documented as of this encounter Miscellaneous Notes * Telephone Encounter - Marly Cummins RN - 04/09/2013 9:12 AM CDT Pt states she is uncertain which OCP she would like to take instead of Loestrin 24 Fe. Minastrin and Loestrin Fe 09/02 offered. Pt states She has 3 packs still left and has to find another WHEEL WORKER due to insurance issues. Will f/u with new WHEEL WORKER. * Telephone Encounter - Bella Villarreal - 04/08/2013 11:31 AM CDT Pharmacy no longer getting Loestrin. Needs new similar OCP and needs prior auth for birthcontrol documented in this encounter Plan of Treatment Not on file documented as of this encounter Visit Diagnoses Not on filedocumented in this encounter
--- OUTSIDE RECORDS SUMMARY | 2024-07-30 14:17 | XMS_ITS | Encounter Summary ---
Author Organization [employer] Address [address] [place] [address] Care Team Providers Care Retail Chain Store Area Supervisor Name Role Phone Unavailable Primary Care Provider Unavailabl e Encounter Details Date Type Department Care Team (Late st Contact Info) Description 03/21/2013 Orders Only [facility] BINDERY OPERATOR [address] [place] [address] Azar Massey MD [address] [place] [address] Social History Tobacco Use Types Packs/Day Years Used Date Smoking Tobacco: Never Assessed Sex and Gender Information Value Date Recorded Sex Assigned at Not on file Gender Identity Not on file Sexual Orientation Not on file documented as of this encounter Plan of Treatment Not on file documented as of this encounter Procedures Procedure Name Priority Date/Time Associated Diagnosis Comments CERV/VAG CYTOPATH, THIN PREP Routine 02/06/2013 documented in this encounter Results * CERVICAL OR VAGINAL CYTOPATH, THIN PREP (02/06/2013) Endocervical Azar Massey MD PATHOLOGY/CYTOLOGY O RDERABLES [facility]# [id number] [address] [place] [place] [address] documented in this encounter Visit Diagnoses Not on filedocumented in this encounter
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
--- OUTSIDE RECORDS SUMMARY | 2024-07-30 16:02 | XMS_ITS | Clinical Summary ---
Author Organization [facility] Address [address] [place] [address] Care Team Providers Care Neurodiagnostic Technologist Name Role Phone Pcp, Verify Primary Care [...] age to complete this topic Care Teams Neurodiagnostic Technologist Relationship Specialty Start Date End Date Pcp, Verify PCP - General 08/19/21
--- OUTSIDE RECORDS SUMMARY | 2024-07-30 16:02 | XMS_ITS | Clinical Summary ---
Author Organization [facility] Address [address] [facility] [place] [address] Care Team Providers Care Cleaning Manager Name Role Phone Azar Braxton MD Primary Care Provider [phone] Source Comments [facility],non-owned Affiliates and Associated Physician Practices is amultiple site organization consisting of ambulatory clinics and hospital sitesin [place], [place], [place] and [place]. This disclosure is being madepursuant to the Care Everywhere program and may not contain all information available regarding this patient. Last updated 18.[facility] Allergies Active Allergy Reactions Criticality Noted Date [...] 08/26/201507/07 Immunizations Name Administration Dates Next Due PsomasFMG primary monoval ent 12+ yr 0.3mL Purple [...] file Gender Identity Female 08/19/2022 7:56 AM HOSPICE EXECUTIVE DIRECTOR Sexual Orientation Not on file Last Filed Vital Signs Vital Sign Reading Time Taken Comments Blood Pressure 110/78 03/17/2023 1:17 PM CDT Pulse 88 03/17/2023 1:17 PM CDT Temperature 36.9 ??C (98.5 ??F) 03/17/2023 1:17 PM CD T Respiratory Rate 20 08/19/2022 2:34 PM HOSPICE EXECUTIVE DIRECTOR Oxygen Saturation 99% 03/17/2023 1:17 PM CDT [...] Comments LIPID PROFILE Routine 07/07/2021 11:19 AM HOSPICE EXECUTIVE DIRECTOR Routine physical examination HIV-1 HIV-2 ANTIBODY + HIV P24 AG PANEL Routine 07/07/2021 11:19 AM HOSPICE EXECUTIVE DIRECTOR Routine physical examination HEPATITIS C AB W RFLX VERIFICATION Routine 06/01/2015 7:43 AM CDT MAMMO BILAT SCREENING Routine 08/23/2011 7:59 AM HOSPICE EXECUTIVE DIRECTOR Family history of breast cancer in first degree relative from Last 3 Months or Most Recently Relevant to Health Maintenance Results * HIV-1 HIV-2 ANTIBODY + HIV P24 AG PANEL (07/07/2021 11:19 AM HOSPICE EXECUTIVE DIRECTOR) HIV Screen 4th Generation w Reflex Non Reactive Non Reactive [facility] INSURANCE BILL Blood BLOOD SPECIMEN / Unknown 07/07/2021 11:19 AM HOSPICE EXECUTIVE DIRECTOR 07/07/2021 Narrative Resulting Agency Comment [facility]: [facility] [address] [facility] ??Replaced by [facility] [phone] Azar Braxton MD LAB - CHEMISTRY TIFFANIE WILLS [facility] INSURANCE BILL [address] [place] [address] * (ABNORMAL) LIPID PROFILE (07/07/2021 11:19 AM HOSPICE EXECUTIVE DIRECTOR) Cholesterol 232(H) <200 mg/dL [facility] INSURANCE BILL Triglycerides 134 <150 mg/dL [facility] INSURANCE BILL HDL Cholesterol 58 >40 mg/dL [facility] INSURANCE BILL VLDL Calculated 27 <=30 mg/dL [facility] INSURANCE BILL LDL Calculated 147(H) <130 mg/dL [facility] INSURANCE BILL Blood BLOOD SPECIMEN / Unknown 07/07/2021 11:19 AM HOSPICE EXECUTIVE DIRECTOR 07/07/2021 Narrative Resulting Agency Comment Lab Testing performed at: [facility] [address] [facility] ?? [place] [phone] Azar Braxton MD LAB - CHEMISTRY TIFFANIE WILLS [facility] INSURANCE BILL [address] [place] [address] * HEPATITIS C AB W RFLX VERIFICATION (06/01/2015 7:43 AM CDT) Hepatitis C Antibody <0.1 0.0 - 0.9 s/co ratio [facility] 06/01/2015 7:43 AM CDT 06/01/2015 9:18 AM CDT Narrative [facility] - 06/02/2015 6:15 AM CDT Performed at: ??[address] - [address] ??[id number] Double Head Machine Operator: Erasmo Morris PhD, Phone: ??[phone] Annette Singh MD LAB - CHEMISTRY TIFFANIE WILLS Performing Organization Address City/[facility]/ZIP Co de Phone Number [facility] * MAMMO SCREENING DIGITAL IMAGE BILAT (08/23/2011 7:59 AM HOSPICE EXECUTIVE DIRECTOR) Anatomical Region Laterality Modality Breast Bilateral Mammography 08/23/2011 12:0 7 PM HOSPICE EXECUTIVE DIRECTOR Narrative 08/23/2011 12:27 PM HOSPICE EXECUTIVE DIRECTOR DIGITAL BILATERAL SCREENING MAMMOGRAMS WITH CAD CORRELATION [...] if suspicious findings are present clinically. An [employer] Certified Facility Procedure Note [...] if suspicious findings are present clinically. An [employer] Certified Facility Daja Orr MD MAMMO ORDERABLES from Last 3 Months or Most Recently Relevant to Health Maintenance Advance Directives * FULL RESUSCITATION (Latest Code Status on File) Date Activated Date Inactivated Comments 04/03/2011 3:58 PM 04/08/2011 4:57 AM Care Teams Cleaning Manager Relationship Specialty Start Date End Date Azar Braxton MD [address] [address] PCP - General Family Medicine 07/07/21
--- OUTSIDE RECORDS SUMMARY | 2024-07-30 16:02 | XMS_ITS | Encounter Summary ---
Author Organization [facility] Address [address] [place] [address] Care Team Providers Care Cloth Dyer Name Role Phone Unavailable Primary Care Provider Unavailabl e Encounter Details Date Type Department Care Team (Late st Contact Info) Description 12/20/2019 7:42 PM CDT Hospital [facility] Janes Yoo MD [address] [place], [place] [address] Discharge Disposition: Home or Self Care Social [...]
--- OUTSIDE RECORDS SUMMARY | 2024-07-30 16:02 | XMS_ITS | Encounter Summary ---
Author Organization [facility] Address [address] [place] [address] Care Team Providers Care Trouble Shooter Name Role Phone Unavailable Primary Care Provider Unavailabl e Encounter Details Date Type Department Care Team (Late st Contact Info) Description 01/09/2020 11:00 AM CDT Lab Services [facility] [address] Mobile Testing Unit [address] [address] Suspected COVID-19 virus infection Social History Tobacco [...] SOURCE, 2019 NOVEL CORONAVIRUS (SARS-COV-2) NASOPHARYNGEAL SWAB [facility] [place] SARS-CoV-2 by PCR NOT [...] for the test has been determined by [employer] and are incorporated as part of FDA Emergency Use Authorization (EUA). This test was performed by [facility] using the FDA cleared Emergency Use Authorization (EUA) assay. This laboratory is certified under the Clinical Laboratory Improvement Amendments (CLIA) as qualified to perform high complexity clinical laboratory testing. Isolation Guidelines [facility] [place] Comment: Do not use this test result [...] Toolkit for most up to date information: https://www.advocate[facility].com/omqkv-86-rvdy/ Swab NASOPHARYNGEAL STRUCTURE / Unknown 01/09/2020 11:25 AM CDT 01/09/2020 3:38 PM CDT Matthieu Dow MD B[facility]N ORD [facility] - [facility] [place] [address] [place] [address] documented in this encounter Visit Diagnoses Diagnosis Suspected COVID-19 virus infection documented in this encounter
--- OUTSIDE RECORDS SUMMARY | 2024-07-30 16:02 | XMS_ITS | Referral Summary ---
Author Organization [facility] [employer] Address [address] [facility] [place] [address] Care Team Providers Care Hotel Operation Manager Name Role Phone Azar Braxton MD Primary Care Provider [phone] Source Comments [facility] [employer],non-owned Affiliates and Associated Physician Practices is amultiple site organization consisting of ambulatory clinics and hospital sitesin [place], [place], [place] and [place]. This disclosure is being madepursuant to the Care Everywhere program and may not contain all information available regarding this patient. Last updated 18.[facility] [employer] Allergies Active Allergy Reactions Criticality Noted Date [...] 08/26/201507/07 Immunizations Name Administration Dates Next Due Zen Planner primary monoval ent 12+ yr 0.3mL Purple [...] Gender Identity Female 08/19/2022 7:56 AM PROPERTY ADJUSTER Sexual Orientation Not on file Last Filed Vital Signs Vital Sign Reading Time Taken Comments Blood Pressure 110/78 03/17/2023 1:17 PM CDT Pulse 88 03/17/2023 1:17 PM CDT Temperature 36.9 ??C (98.5 ??F) 03/17/2023 1:17 PM CD T Respiratory Rate 20 08/19/2022 2:34 PM PROPERTY ADJUSTER Oxygen Saturation 99% 03/17/2023 1:17 PM CDT [...] Comments LIPID PROFILE Routine 07/07/2021 11:19 AM PROPERTY ADJUSTER Routine physical examination HIV-1 HIV-2 ANTIBODY + HIV P24 AG PANEL Routine 07/07/2021 11:19 AM PROPERTY ADJUSTER Routine physical examination HEPATITIS C AB W RFLX VERIFICATION Routine 06/01/2015 7:43 AM CDT MAMMO BILAT SCREENING Routine 08/23/2011 7:59 AM PROPERTY ADJUSTER Family history of breast cancer in first degree relative from Last 3 Months or Most Recently Relevant to Health Maintenance Results * HIV-1 HIV-2 ANTIBODY + HIV P24 AG PANEL (07/07/2021 11:19 AM PROPERTY ADJUSTER) HIV Screen 4th Generation w Reflex Non Reactive Non Reactive [facility] INSURANCE BILL Blood BLOOD SPECIMEN / Unknown 07/07/2021 11:19 AM PROPERTY ADJUSTER 07/07/2021 Narrative Resulting Agency Comment Lab [facility] [address] [facility] ??[facility] [id number] Azar Braxton MD LAB - CHEMISTRY TIFFANIE WILLS [facility] INSURANCE BILL [address] [place] [address] * (ABNORMAL) LIPID PROFILE (07/07/2021 11:19 AM PROPERTY ADJUSTER) Cholesterol 232(H) <200 mg/dL [facility] INSURANCE BILL Triglycerides 134 <150 mg/dL [facility] INSURANCE BILL HDL Cholesterol 58 >40 mg/dL [facility] INSURANCE BILL VLDL Calculated 27 <=30 mg/dL [facility] INSURANCE BILL LDL Calculated 147(H) <130 mg/dL [facility] INSURANCE BILL Blood BLOOD SPECIMEN / Unknown 07/07/2021 11:19 AM PROPERTY ADJUSTER 07/07/2021 Narrative Resulting Agency Comment Lab Testing performed at: [facility] [address] [facility] ?? [place] [id number] Azar Braxton MD LAB - CHEMISTRY TIFFANIE WILLS Performing Organization Address City/State/[facility] Co de Phone Number [facility] [address] [place] [address] * HEPATITIS C AB W RFLX VERIFICATION (06/01/2015 7:43 AM CDT) Hepatitis C Antibody <0.1 0.0 - 0.9 s/co ratio [facility] ([employer]) 06/01/2015 7:43 AM CDT 06/01/2015 9:18 AM CDT Narrative [facility] (BEAKER) - 06/02/2015 6:15 AM CDT Performed at: ??01 - Lab[address] ??[id number] National Park Ranger: Erasmo Morris PhD, Phone: ??[phone] Annette Singh MD LAB - CHEMISTRY TIFFANIE WILLS Performing Organization Address City/[facility]/ZIP Co de Phone Number [facility] ([place]EL[place]) * MAMMO SCREENING DIGITAL IMAGE BILAT (08/23/2011 7:59 AM PROPERTY ADJUSTER) Anatomical Region Laterality Modality Breast Bilateral Mammography 08/23/2011 12:0 7 PM PROPERTY ADJUSTER Narrative 08/23/2011 12:27 PM PROPERTY ADJUSTER DIGITAL BILATERAL SCREENING MAMMOGRAMS WITH CAD CORRELATION [...] if suspicious findings are present clinically. An [employer] Certified Facility Procedure Note [...] if suspicious findings are present clinically. An [employer] Certified Facility Daja Orr MD MAMMO ORDERABLES from Last 3 Months or Most Recently Relevant to Health Maintenance Advance Directives * FULL RESUSCITATION (Latest Code Status on File) Date Activated Date Inactivated Comments 04/03/2011 3:58 PM 04/08/2011 4:57 AM Care Teams Hotel Operation Manager Relationship Specialty Start Date End Date Azar Braxton MD [address] [address] PCP - General Family Medicine 07/07/21
--- OUTSIDE RECORDS SUMMARY | 2024-07-30 16:02 | XMS_ITS | Encounter Summary ---
Author Organization [facility] Address [address] [place] [address] Care Team Providers Care Research Associate Quality Control Qc Name Role Phone Unavailable Primary Care Provider Unavailabl e Encounter Details Date Type Department Care Team ([facility] st Contact Info) Description 01/11/2020 Patient Self-Triage [facility] [address] [place] [address] Social History Tobacco Use Types Packs/Day Years [...]
--- OUTSIDE RECORDS SUMMARY | 2024-07-30 16:02 | XMS_ITS | Referral Summary ---
Author Organization [facility] Address [address] [place] [address] Care Team Providers Care Molder Name Role Phone Pcp, Verify Primary Care [...] of Treatment Not on file Care Teams Molder Relationship Specialty Start Date End Date Pcp, Verify PCP - General 08/19/21
--- OUTSIDE RECORDS SUMMARY | 2024-07-30 16:02 | XMS_ITS | Encounter Summary ---
Author Organization [facility] Address [address] [place] [address] Care Team Providers Care Ferris Wheel Attendant Name Role Phone Unavailable Primary Care Provider [...] by PCR (12/20/2019 7:48 PM CDT) Pathologist [facility] Source, 2019 Novel Coronavirus (SARS-CoV-2) NASOPHARYNGEAL SWAB [facility] Rapid SARS-COV-2 by PCR NOT DETECTED NOTD [facility] Comment: SARS-CoV-2 nucleic acid has not been detected. ??Testing was performed using the [employer] Diabetes Xpert Xpress SARS-CoV-2 RT-PCR assay that has [...] up to date information: https://www.advoc [facility].com/cov id-19-info/ [facility] 12/20/2019 7:48 PM CDT 12/20/2019 9:24 PM CDT Provider Not In System [facility] MICRO-GEN ORDERABLES Performing Organization Address City/State/[facility] Co de Phone Number [facility] [address] [address] documented in this encounter Visit Diagnoses Not on filedocumented in this encounter
--- OUTSIDE RECORDS SUMMARY | 2024-07-30 16:02 | XMS_ITS | Encounter Summary ---
Author Organization [facility] Address [address] [place] [address] Care Team Providers Care Tire Rebuilder Name Role Phone Unavailable Primary Care Provider Unavailabl e Reason for Visit * Reason Comments Suspected Coronavirus (Covid-19) Encounter Details Date Type Department Care Team ([facility] st Contact Info) Description 12/30/2019 Telephone Population Health Support [address] [place] [address] Aletha Harden, RUBÉN Suspected Coronavirus [...]
--- OUTSIDE RECORDS SUMMARY | 2024-07-30 16:03 | XMS_ITS | Encounter Summary ---
Author Organization [facility] Address [address] [facility] [place] [address] Care Team Providers Care Jacquard Loom Heddles Tier Name Role Phone Avery Hidalgo DO Primary Care Provider [phone] Reason for Visit * Reason Comments Follow-up 6 MO Encounter Details Date Type Department Care Team (Late st Contact Info) Description 06/22/2016 11:30 AM FILER HELPER Office Visit [facility] - Internal Medicine [address] [place] [address] Avery Hidalgo DO [address] [place], [place] [id number] Urethrodynia (Primary Dx); Anxiety and depression; Vitamin [...] file Gender Identity Female 08/19/2022 7:56 AM FILER HELPER Sexual Orientation Not on file documented as of this encounter Last Filed Vital Signs Vital Sign Reading Time Taken Comments Blood Pressure 118/70 06/22/2016 11:37 AM FILER HELPER Pulse 82 06/22/2016 11:37 AM FILER HELPER Temperature 36.9 ??C (98.5 ??F) 06/22/2016 11:[address] Respiratory Rate 12 06/22/2016 11:37 AM FILER HELPER Oxygen Saturation 100% 06/22/2016 11:37 AM FILER HELPER Inhaled Oxygen Concentration - - Weight 44.4 kg (97 lb 12.8 oz) 06/22/2016 11:37 AM FILER HELPER Height 154.9 cm (5' 1 ) 06/22/2016 11:37 AM FILER HELPER Body Mass Index 18.48 06/22/2016 11:37 AM FILER HELPER documented in this encounter Patient Instructions * Patient Instructions* Avery Hidalgo DO - 06/22/2016 12:08 PM FILER HELPER Continue current supplements and medications for improving/stable chronic medical conditions. Patient was encouraged to call immediately for any concerns or problems. R HELPER documented in this encounter Progress Notes * [...] encounter medications on file as of 06/22/2016. R HELPER * Beryl Chamberlain - 06/22/2016 11:45 AM CST PHQ-2 : Pt. declined depression screening (date): (Patient under care of psychiatry) Little interest or pleasure in doing things: Several days Feeling down, depressed, or hopeless: Several days TOTAL POINT SCORE: 2 PHQ-9: Little interest or pleasure in doing things: Several days Feeling down, depressed, or hopeless: Several days R HELPER documented in this encounter Plan of Treatment Not on file documented as of this encounter Visit Diagnoses Diagnosis Urethrodynia- Primary Other symptoms involving urinary system Anxiety and depression Dysthymic disorder Vitamin D deficiency disease Unspecified vitamin D deficiency Gastroesophageal reflux disease, esophagitis presence not specified documented in this encounter Care Teams Jacquard Loom Heddles Tier Relationship Specialty Start Date End Date Avery Hidalgo DO PCP - General Family Medicine 08/26/15 03/25/20 documented as of this encounter
--- OUTSIDE RECORDS SUMMARY | 2024-07-30 16:03 | XMS_ITS | Encounter Summary ---
Author Organization [facility] Address [address] [facility] [place] [address] Care Team Providers Care Fire Hydrant Operator Name Role Phone Molly Alvarado MD Primary Care Provider Reason for Visit * Reason Onset Date Comments Follow-up 11/09/2013 Encounter Details Date Type Department Care Team (Late st Contact Info) Description 11/09/2013 Telephone [facility] [address] [place] [id number] Jyoti Lan RN Follow-up Social History Tobacco Use Types Packs/Day Years Used Date Smoking Tobacco: Never Smokeless Tobacco: Never Alcohol Use Standard Drinks/Week Comments Yes 0 (1 standard drink = 0.6 oz pur e alcohol) social - rare Sex and Gender Information Value Date Recorded Sex Assigned at Not on file Gender Identity Female 08/19/2022 7:56 AM 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 documented in this encounter Plan of Treatment Not on file documented as of this encounter Visit Diagnoses Not on filedocumented in this encounter Care Teams Fire Hydrant Operator Relationship Specialty Start Date End Date Molly Alvarado MD PCP - General Family Medicine 12/05/11 08/25/15 documented as of this encounter
--- OUTSIDE RECORDS SUMMARY | 2024-07-30 16:03 | XMS_ITS | Encounter Summary ---
Author Organization [facility] Address [address] [place] [address] Care Team Providers Care Record Changer Assembler Name Role Phone Molly Alvarado MD Primary Care Provider Reason for Visit * Reason Onset Date Comments Appointment 06/08/2015 Medication Request 06/08/2015 Encounter Details Date Type Department Care Team (Late st Contact Info) Description 06/08/2015 Telephone [facility] - Family Medicine [address] [place] [address] [address] [place] [address] Molly Alvarado MD [address] [place] [address] [address] [place] [address] Appointment; Medication Request Social History Tobacco Use Types Packs/Day Years Used Date Smoking Tobacco: Never Smokeless Tobacco: Never Alcohol Use Standard Drinks/Week Comments Yes 0 (1 standard drink = 0.6 oz pur e alcohol) social - rare Sex and Gender Information Value Date Recorded Sex Assigned at Not on file Gender Identity Female 08/19/2022 7:56 AM 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 Alvarado to see if she is willing to prescribe these medication and if she can work patient in for physical or if it is ok for patient to see AUTOMATIC GLUING MACHINE OPERATOR and just have Dr. Alvarado write prescriptions. Spoke with AUTOMATIC GLUING MACHINE OPERATOR who is happy to see the patientif Dr. Alvarado ok's scripts. Monday appointments are best for patient but she is flexible. Please advise. TRI 10-14-[address] Warden BARTLETT with Dr. Alvarado 03-06-2013 documented in this encounter Plan of Treatment Not on file documented as of this encounter Visit Diagnoses Not on filedocumented in this encounter Care Teams Record Changer Assembler Relationship Specialty Start Date End Date Molly Alvarado MD PCP - General Family Medicine 12/05/11 08/25/15 documented as of this encounter
--- OUTSIDE RECORDS SUMMARY | 2024-07-30 16:03 | XMS_ITS | Encounter Summary ---
Author Organization [facility] Address [address] [facility] [place] [address] Care Team Providers Care Tariff Publishing Agent Name Role Phone Dona Beyer MD Primary Care Provider [phone] Encounter Details Date Type Department Care Team [...] file Gender Identity Female 08/19/2022 7:56 AM MEDIA DIRECTOR Sexual Orientation Not on file COVID-19 Exposure [...] on filedocumented in this encounter Care Teams Tariff Publishing Agent Relationship Specialty Start Date End Date Dona Beyer MD PCP - General Procurement Representative 03/26/20 07/06/21 documented as of this encounter
--- OUTSIDE RECORDS SUMMARY | 2024-07-30 16:03 | XMS_ITS | Encounter Summary ---
Author Organization [facility] Address [address] [place] [address] Care Team Providers Care Prescriptionist Name Role Phone Azar Braxton MD Primary Care Provider [phone] Azar Braxton MD Unavailable [phone] Encounter Details Date Type Department Care Team [...] file Gender Identity Female 08/19/2022 7:56 AM HAND SHAPER Sexual Orientation Not on file documented as of this encounter Plan of Treatment Not on file documented as of this encounter Visit Diagnoses Not on filedocumented in this encounter Care Teams Prescriptionist Relationship Specialty Start Date End Date Azar Braxton MD [address] [address] PCP - General Family Medicine 07/07/21 Azar Braxton MD [address] [address] PCP - Attributed-[employer] 11/12/21 08/31/22 documented as of this encounter
--- OUTSIDE RECORDS SUMMARY | 2024-07-30 16:03 | XMS_ITS | Encounter Summary ---
Author Organization [facility] Address [address] [facility] [place] [address] Care Team Providers Care Airfield Operations Specialist Name Role Phone Molly Alvarado MD Primary Care Provider Encounter Details Date Type Department Care Team (Late st Contact Info) Description 11/08/2013 4:45 PM CDT - 11/08/2013 11:59 PM T Hospital Encounter [facility] [address] [place] [address] Tana Sosa, CORRECTIONAL SERGEANT-ELECTRIC SYSTEM OPERATOR [address] [facility] [place] [address] Discharge Disposition: Home or Self Care Social History Tobacco Use Types Packs/Day Years Used Date Smoking Tobacco: Never Smokeless Tobacco: Never Alcohol Use Standard Drinks/Week Comments Yes 0 (1 standard drink = 0.6 oz pur e alcohol) social - rare Sex and Gender Information Value Date Recorded Sex Assigned at Not on file Gender Identity Female 08/19/2022 7:56 AM 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
--- OUTSIDE RECORDS SUMMARY | 2024-07-30 16:03 | XMS_ITS | Encounter Summary ---
Author Organization [facility] Health Address [address] [facility] [place] [address] Care Team Providers Care Employee Service Officer Name Role Phone Avery Hidalgo DO Primary Care Provider [phone] Encounter Details Date Type Department Care Team (Latest Contact Info) Description 09/25/2017 6:15 PM CAFE AIDE - 09/25/2017 11:59 PM CAFE AIDE Hospital Encounter [facility] [address] [place] [address] Monica Srinivasan, COSTING ANALYST-[facility] [address] [place] [address] Discharge Disposition: Home or Self Care Social History Tobacco Use Types Packs/Day Years Used Date Smoking Tobacco: Never Smokeless Tobacco: Never Alcohol Use Standard Drinks/Week Comments Yes 0 (1 standard drink = 0.6 oz pur e alcohol) social - rare Sex and Gender Information Value Date Recorded Sex Assigned at Not on file Gender Identity Female 08/19/2022 7:56 AM CAFE AIDE Sexual Orientation Not on file documented as of this encounter Last Filed Vital Signs Vital Sign Reading Time Taken Comments Blood Pressure 101/51 09/25/2017 6:26 PM CAFE AIDE Pulse 104 09/25/2017 6:26 PM CAFE AIDE Temperature 36.6 ??C (97.8 ??F) 09/25/2017 6:26 PM CS T Respiratory Rate 20 09/25/2017 6:26 PM CAFE AIDE Oxygen Saturation 100% 09/25/2017 6:26 PM CAFE AIDE Inhaled Oxygen Concentration - - Weight 44.9 kg (99 lb) 09/25/2017 6:26 PM CAFE AIDE Height 154.9 cm (5' 1 ) 09/25/2017 6:26 PM CAFE AIDE Body Mass Index 18.71 09/25/2017 6:26 PM CAFE AIDE documented in this encounter Discharge Instructions * Patient Instructions* Monica Srinivasan APRN-CNP - 09/25/2017 6:58 PM CAFE AIDE Images from the original note were not [...] soothe a dry and painful throat. Try dhmk-xgv-vzmczhr pain medications, such as acetaminophen. Do not [...] ask them during your visits. ?? 2017 [employer] Information is for End User's use only and may not be sold, redistributed or otherwise used for commercial purposes. All illustrations and images included in CareNotes?? are the copyrighted property of [employer] Inc. or [employer]. The above information is an educational aide only. It is not intended as medical advice for individual conditions or treatments. Talk to your doctor, nurse or pharmacist before following any medical regimen to see if it is safe and effective for you. AIDE documented in this encounter Medications at Time [...] with the patient: 09/25/2017 18:56 [place] [id number] [facility] History Sore throat HPI [...] 04/19/2013 ENDOSCOPY GI UPPER WITH BIOPSY ??? [place] [facility] Family History Problem Relation Age [...] of education: N/A Occupational History ??? [employer] Social History Main Topics [...] soothe a dry and painful throat. Try lnmv-bso-hnwnasb pain medications, such as acetaminophen. Do not [...] and denied having any questions or concerns. AIDE documented in this encounter Miscellaneous Notes * Addendum Note - Ueyn Becker CPC - 09/25/2017 11:59 PM CSTEncounter addended by: Uyen Becker CPC on: 09/26/2017 9:17 PM
Actions taken: Charge Capture section accepted AIDE documented in this encounter Plan of Treatment Not on file documented as of this encounter Procedures Procedure Name Priority Date/Time Associated Diagnosis Comments INFLUENZA A+B - POCT (IP) URGENT CARE Routine 09/25/2017 6:43 PM CAFE AIDE Throat pain STREP A SCREEN - POCT (IP) URGENT CARE Routine 09/25/2017 6:37 PM CAFE AIDE Throat pain documented in this encounter Results * INFLUENZA A+B - POCT (IP) URGENT CARE (09/25/2017 6:43 PM CAFE AIDE) Influenza A Antigen Rapid Negative Negative [facility] POCT TESTING Influenza B Antigen Rapid Negative Negative [facility] POCT TESTING QC Verified Yes Yes [facility] POC T TESTING Throat ENTIRE THROAT (SURFACE REGION OF NECK) / Unknown 09/25/2017 6:43 PM CAFE AIDE Monica [facility] - POINT O F CARE ORDERABLES [facility] POCT TESTING [address] [address], [facility] * (ABNORMAL) STREP A SCREEN - POCT (IP) URGENT CARE (09/25/2017 6:37 PM CAFE AIDE) Strep A Rapid POCT Positive(A ) Negative [facility] POCT TESTING QC Verified Yes Yes [facility] POC T TESTING Throat ENTIRE THROAT (SURFACE REGION OF NECK) / Unknown 09/25/2017 6:37 PM CAFE AIDE Monica Srinivasan COSTING ANALYST-PERSONAL PROTECTION SPECIALIST LAB - POINT O F CARE ORDERABLES [facility] POCT TESTING [address] documented in this encounter Visit Diagnoses Diagnosis Streptococcal sore throat- Primary Throat pain documented in this encounter Care Teams Employee Service Officer Relationship Specialty Start Date End Date Avery Hidalgo DO PCP - General Family Medicine 08/26/15 03/25/20 documented as of this encounter
--- OUTSIDE RECORDS SUMMARY | 2024-07-30 16:03 | XMS_ITS | Encounter Summary ---
Author Organization [facility] Address [address] [facility] [place] [address] Care Team Providers Care Shoes Hand Sewer Name Role Phone Molly Alvarado MD Primary Care Provider Avery Hidalgo DO Primary Care Provider [phone] Encounter Details Date Type Department Care Team (Latest Contact Info) Description 05/18/2015 Hospital Outpatient Visit Historic [facility] [address] [place] [phone] Annette Singh MD [address] [facility] [address]L [place] [address] Discharge Disposition: Home or Self Care Social History Tobacco Use Types Packs/Day Years Used Date Smoking Tobacco: Never Smokeless Tobacco: Never Alcohol Use Standard Drinks/Week Comments Yes 0 (1 standard drink = 0.6 oz pur e alcohol) social - rare Sex and Gender Information Value Date Recorded Sex Assigned at Not on file Gender Identity Female 08/19/2022 7:56 AM 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 Sexual Orientation Not on file documented as [...] ABC Serotype A1 1 [facility]) ABC Serotype A2 2 [facility]) ABC Serotype B1 8 [facility]) ABC Serotype B2 51 [facility]) ABC Serotype BW1 6 [facility]) ABC Serotype BW2 4 [facility]) ABC Serotype Cw-1 2 [facility]) ABC Serotype Cw-2 5 [facility]) ABC Serotype Test Date 05/28/20 15 [facility] ([facility]) Comment: This test was developed and its performance characteristics determined bythe [facility]. ??It has not been cleared or approved by theU.S. Food and Drug Administration. ??The FDA has determined that suchclearance or approval is not necessary. ?? This test is used for clinicalpurposes. ??It should not be regarded as investigational or for research.This laboratory is certified under the Clinical Laboratory ImprovementAmendments of 1988 (CLIA-88) as qualified to perform high complexityclinical laboratory testing.Performed at: ??[facility], [address] @ [facility], [place] ??[id number] Director: Douglas Pham MD, Blood specimen (specimen) BLOOD SPECIMEN / Unknown 05/18/2015 8:49 AM CDT 05/18/2015 9:09 AM CDT Annette Singh MD LAB - BLOOD BANK ORD ERABLES [facility] ([facility]) * HLA TYPING SEROLOGIC DR,DQ (05/18/2015 8:49 AM CDT) DR1 1 [facility] ([facility]) DR2 11 [facility] ([facility]) DRW-1 52 [facility]) DRW-2 - [facility] DQ 1 5 [facility] ([facility]) DQ 2 7 [facility] ([facility]) DRDQ Test Date 05/28/20 15 [facility] ([facility]) Comment: This test was developed and its performance characteristics determined bythe [facility]. ??It has not been cleared or approved by theU.S. Food and Drug Administration. ??The FDA has determined that suchclearance or approval is not necessary. ?? This test is used for clinicalpurposes. ??It should not be regarded as investigational or for research.This laboratory is certified under the Clinical Laboratory ImprovementAmendments of 1988 (CLIA-88) as qualified to perform high complexityclinical laboratory testing.Performed at: ??[facility], [address] @ [place], [place] ??[id number] Director: Douglas Pham MD, Blood specimen (specimen) BLOOD SPECIMEN / Unknown 05/18/2015 8:49 AM CDT 05/18/2015 9:09 AM CDT Annette Singh MD LAB - BLOOD BANK ORD ERABLES [facility] ([facility]) * TYPE + SCREEN PANEL (05/18/2015 8:49 AM CDT) Typem O POS [facility] Antibody Screen NEG [facility] Blood specimen (specimen) 05/18/2015 8:49 AM CDT 05/18/2015 9:12 AM CDT Annette Singh MD LAB - BLOOD BANK ORD ERABLES [facility] [address] documented in this encounter Visit Diagnoses Diagnosis Donor of organ or tissue Donor of unspecified organ or tissue documented in this encounter Care Teams Shoes Hand Sewer Relationship Specialty Start Date End Date Molly Alvarado MD PCP - General Family Medicine 4/23/12 1/12/16 Avery Hidalgo DO PCP - General Family Medicine 08/26/15 03/25/20 documented as of this encounter
--- OUTSIDE RECORDS SUMMARY | 2024-07-30 16:03 | XMS_ITS | Encounter Summary ---
Author Organization [facility] Address [address] [facility] [place] [address] Care Team Providers Care Supervisor Instrument Mechanics Name Role Phone Molly Alvarado MD Primary Care Provider Avery Hidalgo DO Primary Care Provider [phone] Encounter Details Date Type Department Care Team (Latest Contact Info) Description 06/01/2015 Hospital Outpatient Visit [facility] [address] [place] [phone] Annette Singh MD [address] [facility] [address] [place] [phone] Discharge Disposition: Home or Self Care Social History Tobacco Use Types Packs/Day Years Used Date Smoking Tobacco: Never Smokeless Tobacco: Never Alcohol Use Standard Drinks/Week Comments Yes 0 (1 standard drink = 0.6 oz pur e alcohol) social - rare Sex and Gender Information Value Date Recorded Sex Assigned at Not on file Gender Identity Female 08/19/2022 7:56 AM CONTAINER COORDINATOR Sexual Orientation Not on file documented as [...] dictated by Jovany Sears M.D. (vice president consulting services). This report was approved ??by Jovany Sears [...] dictated by Jovany Sears M.D. (vice president consulting services). This report was approved by Jovany Sears M.D. on 06/01/2015 11:50AM . Dr. [...] examination documented in this encounter Care Teams Supervisor Instrument Mechanics Relationship Specialty Start Date End Date Molly Alvarado MD PCP - General Family Medicine 12/05/11 08/25/15 Avery Hidalgo DO PCP - General Family Medicine 08/26/15 03/25/20 documented as of this encounter
--- OUTSIDE RECORDS SUMMARY | 2024-07-30 16:03 | XMS_ITS | Encounter Summary ---
Author Organization [facility] Address [address] [place] [address] Care Team Providers Care Sugar Cane Farm Manager Name Role Phone Azar Braxton MD Primary Care Provider [phone] Reason for Visit * Reason Comments Establish Care Encounter Details Date Type Department Care Team (Late st Contact Info) Description 07/07/2021 11:00 AM REFRIGERATION SERVICE INSPECTOR Office Visit [facility] - Family Medicine [address] [place] [address] Azar Braxton MD [address] [place] [id number] Routine physical examination (Primary Dx) Social History [...] file Gender Identity Female 08/19/2022 7:56 AM REFRIGERATION SERVICE INSPECTOR Sexual Orientation Not on file COVID-19 Exposure Response Date Recorded In the last month, have you been in contact with someone who was confirmed or suspected to have Coronavirus / COVID-19? No / Unsure 06/10/2021 9:27 AM CDT documented as of this encounter Last Filed Vital Signs Vital Sign Reading Time Taken Comments Blood Pressure 120/71 07/07/2021 10:59 AM REFRIGERATION SERVICE INSPECTOR Pulse 89 07/07/2021 10:59 AM REFRIGERATION SERVICE INSPECTOR Temperature - - Respiratory Rate 20 07/07/2021 10:59 AM REFRIGERATION SERVICE INSPECTOR Oxygen Saturation 100% 07/07/2021 10:59 AM REFRIGERATION SERVICE INSPECTOR Inhaled Oxygen Concentration - - Weight 54.4 kg (120 lb) 07/07/2021 10:59 AM REFRIGERATION SERVICE INSPECTOR Height 154.9 cm (5' 1 ) 07/07/2021 10:59 AM REFRIGERATION SERVICE INSPECTOR Body Mass Index 22.67 07/07/2021 10:59 AM REFRIGERATION SERVICE INSPECTOR documented in this encounter Patient Instructions * Patient Instructions* Catherine Ledesma MA - 07/07/2021 10:59 AM REFRIGERATION SERVICE INSPECTOR If your physician has placed a referral, centralized scheduling will contact you in 2 business days. If you do not receive a call, please call [phone]. If your insurance company requires a referral, please inform office staff. [facility]- Family Medicine, Pediatrics & OBGYN Our providers [...] Thank you The Staff and Providers at [facility] Thank you for choosing [facility] for your healthcare needs. If you have any questions or concerns, please feel free to contact our office. Thank You, LEE Alexander [facility] [phone] IGERATION SERVICE INSPECTOR documented in this encounter Progress Notes * [...] 04/19/2013 ENDOSCOPY GI UPPER WITH BIOPSY ??? [place] Tooth Extraction Family History Problem Relation Name [...] Occupational History ??? 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 Smoking status: [...] do not receive a call, please call [phone]. If your insurance company requires a referral, please inform office staff. [facility]- Family Medicine, Pediatrics & OBGYN Our providers [...] Thank you The Staff and Providers at [facility] Thank you for choosing [facility] for your healthcare needs. If you have any questions or concerns, please feel free to contact our office. Thank You, LEE Alexander [facility] [phone] IGERATION SERVICE INSPECTOR documented in this encounter Plan of Treatment Not on file documented as of this encounter Procedures Procedure Name Priority Date/Time Associated Diagnosis Comments HIV-1 HIV-2 ANTIBODY + HIV P24 AG PANEL Routine 07/07/2021 11:19 AM REFRIGERATION SERVICE INSPECTOR Routine physical examination TSH HI LOW REFLEX FREE T4 Routine 07/07/2021 11:19 AM REFRIGERATION SERVICE INSPECTOR Routine physical examination HEMOGLOBIN A1C Routine 07/07/2021 11:19 AM REFRIGERATION SERVICE INSPECTOR Routine physical examination CBC W AUTO DIFFERENTIAL Routine 07/07/2021 11:19 AM REFRIGERATION SERVICE INSPECTOR Routine physical examination COMPREHENSIVE METABOLIC PANEL Routine 07/07/2021 11:19 AM REFRIGERATION SERVICE INSPECTOR Routine physical examination LIPID PROFILE Routine 07/07/2021 11:19 AM REFRIGERATION SERVICE INSPECTOR Routine physical examination documented in this encounter Results * HIV-1 HIV-2 ANTIBODY + HIV P24 AG PANEL (07/07/2021 11:19 AM REFRIGERATION SERVICE INSPECTOR) HIV Screen 4th Generation w Reflex Non Reactive Non Reactive [facility] INSURANCE BILL Blood BLOOD SPECIMEN / Unknown 07/07/2021 11:19 AM REFRIGERATION SERVICE INSPECTOR 07/07/2021 Narrative Resulting Agency Comment Lab Testing performed at: [facility] [address] hospital [phone] Azar Braxton MD LAB - CHEMISTRY TIFFANIE WILLS [facility] INSURANCE BILL [address] [place] [address] * TSH HI LOW REFLEX FREE T4 (07/07/2021 11:19 AM REFRIGERATION SERVICE INSPECTOR) Pathologist [facility] TSH 2.852 0.350 - 4.940 uIU/mL [facility] INSURANCE BILL Blood BLOOD SPECIMEN / Unknown 07/07/2021 11:19 AM REFRIGERATION SERVICE INSPECTOR 07/07/2021 Narrative Resulting Agency Comment Lab Testing performed at: [facility] [address] [facility] ?? [place] [id number] Azar Braxton MD LAB - CHEMISTRY TIFFANIE WILLS Performing Organization Address City/[facility]/ZIP Co de Phone Number [facility] INSURANCE BILL [address] [place] [address] * HEMOGLOBIN A1C (07/07/2021 11:19 AM REFRIGERATION SERVICE INSPECTOR) Pathologist [facility] Hemoglobin A1c 5.0 4.2 - 5.6 % [facility] INSURANCE BILL Comment: AVERAGE GLUCOSE MG/DL BLOOD ??97 ? mg/dL The following cutoff levels are recommended by [place]. A1c ??> 6.5% : [...] BLOOD SPECIMEN / Unknown 07/07/2021 11:19 AM REFRIGERATION SERVICE INSPECTOR 07/07/2021 Narrative Resulting Agency Comment Lab Testing performed at: [address] ?? [place] [id number] Azar Braxton MD LAB - CHEMISTRY TIFFANIE WILLS Performing Organization Address [facility]/ZIP Co de Phone Number [facility] INSURANCE BILL [address] [place] [address] * (ABNORMAL) LIPID PROFILE (07/07/2021 11:19 AM REFRIGERATION SERVICE INSPECTOR) Cholesterol 232(H) <200 mg/dL [facility] INSURANCE BILL Triglycerides 134 <150 mg/dL [facility] INSURANCE BILL HDL Cholesterol 58 >40 mg/dL [facility] INSURANCE BILL VLDL Calculated 27 <=30 mg/dL [facility] INSURANCE BILL LDL Calculated 147(H) <130 mg/dL [facility] INSURANCE BILL Blood BLOOD SPECIMEN / Unknown 07/07/2021 11:19 AM REFRIGERATION SERVICE INSPECTOR 07/07/2021 Narrative Resulting Agency Comment Lab Testing performed at: [address] ?? [place] [id number] Azar Braxton MD LAB - CHEMISTRY TIFFANIE WILLS Performing Organization Address [facility] Co de Phone Number [facility] INSURANCE BILL [address] [place] [address] * (ABNORMAL) COMPREHENSIVE METABOLIC PANEL (07/07/2021 11:19 AM REFRIGERATION SERVICE INSPECTOR) Glucose 79 70 - 105 mg/dL [facility] [...] BLOOD SPECIMEN / Unknown 07/07/2021 11:19 AM REFRIGERATION SERVICE INSPECTOR 07/07/2021 Narrative Resulting Agency Comment Lab Testing performed at: [address] ?? [place] [id number] Azar Braxton MD LAB - CHEMISTRY [facility] Organization Address City/State/ZIP Co de Phone Number [facility] INSURANCE BILL [address] [place] [address] * (ABNORMAL) CBC WITH DIFFERENTIAL (07/07/2021 11:19 AM REFRIGERATION SERVICE INSPECTOR) [facility] Signature WBC 7.8 4.4 - 10.7 x10E9/L [...] x10E9/L [facility] INSURANCE BILL Comment:MPV FL BLOOD ([employer] [facility]) 1 1.2 fl 9.4-12.9 Granulocytes % 35.8(L) [...] BLOOD SPECIMEN / Unknown 07/07/2021 11:19 AM REFRIGERATION SERVICE INSPECTOR 07/07/2021 Narrative Resulting Agency Comment Lab Testing performed at: [address] ?? [place] [id number] Azar Braxton MD LAB - HEMATOLOGY ORD ERABLES [facility] INSURANCE BILL [address] [place] [address] documented in this encounter Visit Diagnoses Diagnosis Routine physical examination- Primary Routine general medical examination at a health care facility documented in this encounter Care Teams Sugar Cane Farm Manager Relationship Specialty Start Date End Date Azar Braxton MD [address] [facility] [place] [address] PCP - General Family Medicine 07/07/21 documented as of this encounter
--- OUTSIDE RECORDS SUMMARY | 2024-07-30 16:03 | XMS_ITS | Encounter Summary ---
Author Organization [facility] Address [address] [place] [address] Care Team Providers Care Digital Marketer Name Role Phone Azar Braxton MD Primary Care Provider Reason for Visit * Reason Onset Date Comments Physical 09/30/2022October Appointmen t for Employer Employment Physical 09/30/2022 Encounter Details Date Type Department Care Team (Late st Contact Info) Description 09/30/2022 Telephone [facility] - Family Medicine [address] [place] [address] [place] [address] [place] [address] Physical (October Appointment for Employer); Employment Physical [...] file Gender Identity Female 08/19/2022 7:56 AM FIELD GAUGER Sexual Orientation Not on file documented as of this encounter Miscellaneous Notes * Telephone Encounter - Molly Nguyễn - 09/30/2022 12:21 PM FIELD GAUGER Who is calling? Self What is the [...] prefer October for employer Next Available with HUMAN RESOURCES SAFETY MANAGER - Unable to sched with HUMAN RESOURCES SAFETY MANAGER for wellness visits due to PCP preference sheet. Expected Response from the Clinic? ( ex. Call back, etc..) Patient will keep schedule for 11/14 butcall back if sooner October appointment becomes available - needed for employer D GAUGER documented in this encounter Plan of Treatment Not on file documented as of this encounter Visit Diagnoses Not on filedocumented in this encounter Care Teams Digital Marketer Relationship Specialty Start Date End Date Azar Braxton MD [address] [place] [address] PCP - General Family Medicine 07/07/21 documented as of this encounter
--- OUTSIDE RECORDS SUMMARY | 2024-07-30 16:03 | XMS_ITS | Encounter Summary ---
Author Organization [facility] Address [address] [facility] [place] [address] Care Team Providers Care Batch Trucker Name Role Phone Azar Braxton MD Primary Care Provider [phone] Reason for Referral * Evaluate & Treat - Closed Specialty Diagnoses / Procedures Referred By Contryan rand Referred To Contact Cardiology Diagnoses Palpitations Azar Braxton MD [facility] [place] [address] [facility] [place] [address] [facility] [address] [place] [address] Referral ID Status Reason Start Date Expiration Date V isits Requested Visits Authorized [id number] Closed Specialty Services Required 09/26/2022 09/26/2023 1 1 HYSICAL PARTY CHIEF Encounter Details Date Type Department Care Team (Late st Contact Info) Description 09/26/2022 Orders Only [facility] - Family Medicine [facility] [place] [address] Azra Braxton MD [address] [place], [place] [address] [address] Palpitations Social History Tobacco Use Types [...] file Gender Identity Female 08/19/2022 7:56 AM GEOPHYSICAL PARTY CHIEF Sexual Orientation Not on file documented as of this encounter Plan of Treatment Scheduled Referrals Name Type Priority Associated Diagnoses Order Schedule AMB REFERRAL TO CARDIOLOGY Outpatient Referral Routine Palpitations 1 Occurrences starting 09/26/2022 until 09/26/2023 documented as of this encounter Visit Diagnoses Diagnosis Palpitations- Primary documented in this encounter Care Teams Batch Trucker Relationship Specialty Start Date End Date Azar Braxton MD [address] [place] [address] PCP - General Family Medicine 07/07/21 documented as of this encounter
--- OUTSIDE RECORDS SUMMARY | 2024-07-30 16:03 | XMS_ITS | Encounter Summary ---
Author Organization [facility] Address [address] [place] [address] Care Team Providers Care Warm In Worker Name Role Phone Azar Braxton MD Primary Care Provider [phone] Azar Braxton MD Unavailable [phone] Encounter Details Date Type Department Care Team [...] file Gender Identity Female 08/19/2022 7:56 AM HATCHERY EMPLOYEE Sexual Orientation Not on file COVID-19 Exposure Response Date Recorded In the last 10 days, have yo u been in contact with someone who was confirmed or suspected to have Coronavirus/COVID-19? No / Unsure 08/19/2022 3:17 PM HATCHERY EMPLOYEE documented as of this encounter Plan of Treatment Not on file documented as of this encounter Visit Diagnoses Not on filedocumented in this encounter Care Teams Warm In Worker Relationship Specialty Start Date End Date Azar Braxton MD [address] [address] PCP - General Family Medicine 07/07/21 Azar Braxton MD [address] [place] [address] PCP - Attributed-[employer] 11/12/21 08/31/22 documented as of this encounter
--- OUTSIDE RECORDS SUMMARY | 2024-07-30 16:03 | XMS_ITS | Encounter Summary ---
Author Organization [facility] Address [address] [facility] [place] [address] Care Team Providers Care Coat Presser Name Role Phone Azar Braxton MD Primary Care Provider [phone] Reason for Visit * Reason Comments Refill Request Encounter Details Date Type Department Care Team (Late st Contact Info) Description 09/07/2023 Refill [facility] [address] [facility] [address] [place] [address] Board, Magda Cortes, GENERAL PRODUCTION MANAGER-REFERRAL MANAGEMENT LIAISON [address] [place] [address] Refill Request Social History Tobacco [...] file Gender Identity Female 08/19/2022 7:56 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 verapamil (Isoptin) 40 MG tablet [Pharmacy Med Name: VERAPAMIL 40MG TABLETS] 270 tablet 2 Sig: TAKE 1 TABLET BY MOUTH THREE TIMES DAILY TRI: 03/17/23 NOV: NA MINER OPERATOR documented in this encounter Plan of Treatment Not on file documented as of this encounter Visit Diagnoses Not on filedocumented in this encounter Care Teams Coat Presser Relationship Specialty Start Date End Date Azar Braxton MD [address] [address] PCP - General Family Medicine 07/07/21 documented as of this encounter
--- OUTSIDE RECORDS SUMMARY | 2024-07-30 16:03 | XMS_ITS | Patient Health Summary ---
Author Organization [facility] Address [address] [place] [address] Care Team Providers Care Software Sales Representative Name Role Phone Jose Alberto Braxton MD Primary Care Provider + [phone] Note from [facility],non-owned Affiliates and Associated Physician Practices is amultiple site organization consisting of ambulatory clinics and hospital sitesin [place], [place], [place] and [place]. This disclosure is being madepursuant to the Care Everywhere program and may not contain all information available regarding this patient. Last updated 18.[facility] Allergies * Latex(Itching) * Reglan(GI Discomfort,Palpitations) * [...] 07/07/2021 Anxiety and depression 08/26/201507/07 Immunizations * [employer] primary monovalent 12+ yr 0.3mL Purple cap(Given [...] file Gender Identity Female 08/19/2022 7:56 AM MATERIAL CLERK Sexual Orientation Not on file Last Filed Vital Signs Vital Sign Reading Time Taken Comments Blood Pressure 110/78 03/17/2023 1:17 PM CDT Pulse 88 03/17/2023 1:17 PM CDT Temperature 36.9 ??C (98.5 ??F) 03/17/2023 1:17 PM CD T Respiratory Rate 20 08/19/2022 2:34 PM MATERIAL CLERK Oxygen Saturation 99% 03/17/2023 1:17 PM CDT [...] ECHO COMPLETE (11/11/2022 8:40 AM CDT) BSA [id number] m2 [facility]SM CV FUJI PACS LV biplane [...] CV F UJI PACS LVOT mn dwaine [id number] cm/s [facility]SM CV FUJI PACS LVOT mn [...] CUPID * EVENT MONITOR (08/22/2022 12:00 PM MATERIAL CLERK) 08/22/2022 12:0 0 PM MATERIAL CLERK Narrative Procedure Note Molly Redmond DO - 08/22/2022 11:59 PM CST [facility] Event Monitor Report PATIENT NAME: ÁNGELA IBRAHIM MR#: [id number] AGE: 37 CSN: [id number] : 1985 DATE OF ADMISSION: 08/22/2022 DATE [...] REDMOND DO DICTATED FOR: SMW/MODL JOB ID: [id number] Cardiac Catheterization Report Jose Alberto Braxton MD CARDIAC SERVICES ORD ERABLES [facility] * (ABNORMAL) CBC WITH DIFFERENTIAL (08/19/2022 3:05 PM MATERIAL CLERK) Only the most recent of13 resultswithin the [...] BLOOD SPECIMEN / Unknown 08/19/2022 3:05 PM MATERIAL CLERK 08/19/2022 Narrative Resulting Agency Comment Lab Testing performed at: [address] ?? [place] [phone] Molly Angeles MUSEUM SPECIALIST-CLIENT ONBOARDING ANALYST LAB - HEMATO LOGY ORDERABLES Performing Organization Address City/[facility]/ZIP Co de Phone Number [facility] INSURANCE BILL [address] [place] [address] * TSH REFLEX FREE T4 (08/19/2022 3:04 PM MATERIAL CLERK) TSH 0.721 0.350 - 4.940 uIU/mL [facility] INSURANCE BILL Blood BLOOD SPECIMEN / Unknown 08/19/2022 3:04 PM MATERIAL CLERK 08/19/2022 Narrative Resulting Agency Comment Lab Testing performed at: [address] ?? [place] [phone] Molly Romanof MUSEUM SPECIALIST-CLIENT ONBOARDING ANALYST LAB - CHEMIS TRY ORDERABLES [facility] INSURANCE BILL [address] [place] [address] * (ABNORMAL) COMPREHENSIVE METABOLIC PANEL (08/19/2022 3:04 PM MATERIAL CLERK) Only the most recent of9 resultswithin the [...] BLOOD SPECIMEN / Unknown 08/19/2022 3:04 PM MATERIAL CLERK 08/19/2022 Narrative Resulting Agency Comment Lab Testing performed at: [address] ?? [place] [phone] Molly Angeles MUSEUM SPECIALIST-CLIENT ONBOARDING ANALYST LAB - CHEMIS TRY ORDERABLES [facility] INSURANCE BILL [address] [place] [address] * HIV-1 HIV-2 ANTIBODY + HIV P24 AG PANEL (07/07/2021 11:19 AM MATERIAL CLERK) HIV Screen 4th Generation w Reflex Non Reactive Non Reactive [facility] INSURANCE BILL Blood BLOOD SPECIMEN / Unknown 07/07/2021 11:19 AM MATERIAL CLERK 07/07/2021 Narrative Resulting Agency Comment Lab Testing performed at: [facility] [address] ??[facility]ly [facility] [phone] Jose Alberto Braxton MD LAB - CHEMISTRY TIFFANIE WILLS [facility] INSURANCE BILL [address] [place] [address] * TSH HI LOW REFLEX FREE T4 (07/07/2021 11:19 AM MATERIAL CLERK) Pathologist [facility] TSH 2.852 0.350 - 4.940 uIU/mL [facility] INSURANCE BILL Blood BLOOD SPECIMEN / Unknown 07/07/2021 11:19 AM MATERIAL CLERK 07/07/2021 Narrative Resulting Agency Comment Lab Testing performed at: [facility] [address] ?? [place] [phone] Jose Alberto Braxton MD LAB - CHEMISTRY TIFFANIE WILLS Performing Organization Address City/[facility]/ZIP Co de Phone Number [facility] INSURANCE BILL [address] [place] [address] * HEMOGLOBIN A1C (07/07/2021 11:19 AM MATERIAL CLERK) Only the most recent of2 resultswithin the time period is included. Pathologist [facility] Hemoglobin A1c 5.0 4.2 - 5.6 % [facility] INSURANCE BILL Comment: AVERAGE GLUCOSE MG/DL BLOOD ??97 ? mg/dL The following cutoff levels are recommended by [place] [employer]. A1c ??> 6.5% : [...] BLOOD SPECIMEN / Unknown 07/07/2021 11:19 AM MATERIAL CLERK 07/07/2021 Narrative Resulting Agency Comment Lab Testing performed at: [address] ?? [place] [phone] Jose Alberto Braxton MD LAB - CHEMISTRY TIFFANIE WILLS Performing Organization Address [facility] Co de Phone Number [facility] INSURANCE BILL [address] [place] [address] * (ABNORMAL) LIPID PROFILE (07/07/2021 11:19 AM MATERIAL CLERK) Only the most recent of4 resultswithin the time period is included. Cholesterol 232(H) <200 mg/dL [facility] INSURANCE BILL Triglycerides 134 <150 mg/dL [facility] INSURANCE BILL HDL Cholesterol 58 >40 mg/dL [facility] INSURANCE BILL VLDL Calculated 27 <=30 mg/dL [facility] INSURANCE BILL LDL Calculated 147(H) <130 mg/dL [facility] INSURANCE BILL Blood BLOOD SPECIMEN / Unknown 07/07/2021 11:19 AM MATERIAL CLERK 07/07/2021 Narrative Resulting Agency Comment Lab Testing performed at: [address] ?? [place] [phone] Jose Alberto Braxton MD LAB - CHEMISTRY TIFFANIE WILLS Performing Organization Address [facility] de Phone Number [facility] INSURANCE BILL [address] [place] [address] * PATHOLOGY/CYTOLOGY REPORT ORDER (08/23/2019 8:52 PM MATERIAL CLERK) Only the most recent of2 resultswithin the time period is included. Narrative 08/23/2019 8:52 PM MATERIAL CLERK Ordered by an unspecified provider. Scanned Document [...] Urine Negative Negative 04/20/2019 1:10 PM CDT [facility] Urine URINE / Unknown 04/20/2019 1 :05 PM CDT 04/20/2019 1:10 PM CDT Provider Unknown LAB - POINT OF CARE ORDERABLES [facility] [address] [place] [address] * HCG URINE QUAL POCT NOTIFICATION (04/20/2019 12:58 PM CDT) Comment Notification Label Only - See Separate Report 04/20/2019 2:00 PM CDT [facility] Urine URINE / Unknown 04/20/2019 1 2:58 PM CDT 04/20/2019 12:58 PM CDT Patito Kolb PA-C LAB - URINALYSIS O RDERABLES [facility] [address] [address] * (ABNORMAL) BASIC METABOLIC PANEL (CALCIUM TOTAL) (04/20/2019 12:54 PM CDT) [facility] Glucose 112(H) 74 - 106 mg/dL 04/20/2019 1:24 PM CDT [facility] Sodium 136 136 - 145 mmol/L 04/20/2019 1:24 PM CDT [facility] Potassium 3.6 3.5 - 5.1 mmol/L 04/20/2019 1:24 PM CDT [facility] Chloride 100 98 - 107 mmol/L 04/20/2019 1:24 PM CDT [facility] CO2 23 23 - 31 mmol/L 04/20/2019 1:24 PM CDT [facility] Calcium 9.0 8.4 - 10.2 mg/dL 04/20/2019 1:24 PM CDT [facility] Anion Gap 13 8 - 16 mmol/L 04/20/2019 1:24 PM CDT [facility] BUN 15 7 - 18.7 mg/dL 04/20/2019 1:24 PM CDT [facility] Creatinine 0.92 0.55 - 1.02 mg/dL 04/20/2019 1:24 PM CDT [facility] eGFR by MDRD >60 >60 mL/min/1.7 3m2 04/20/2019 1:24 PM CDT [facility] eGFR by MDRD >60 >60 mL/min/1.7 3m2 04/20/2019 1:24 PM T [facility] Blood BLOOD SPECIMEN / Unknown Venipuncture / Unknown 04/20/2019 12:54 PM CDT 04/20/2019 1:05 PM CDT Patito Kolb PA-C LAB - CHEMISTRY OR DERABLES [facility] [address] [address] * GROSS + MICRO EXAM (STL) (01/23/2019 7:45 AM CDT) Only the most recent of2 resultswithin the time period is included. Case Report Surgical Pathology Report ? Case: [id number] ? Authorizing Provider: ??Drew Orlando MD ? Collected: ? 01/23/2019 07:45 AM ? Ordering Location: ? [facility] ?Received: ?01/23/2019 12:56 PM ? Pathologist: ? Yuni Younger MD ? Specimens: ?? A) - Cervix Conization, ecto cervix 12 oclock ? B) - Cervix Conization, endo cervix ? 01/25/2019 12:03 PM CDT [facility] Final Diagnosis Uterus, cervix, conization: - High-grade squamous intraepithelial lesion (JOSE RAMON-2) - Margins negative for JOSE RAMON-2 Uterus, endocervix, excision: - No evidence of dysplasia or malignancy KL/na 01/25/2019 12:03 PM CDT [facility] Clinical History HGSIL. 01/25/2019 12:03 PM [facility] Gross Description Specimen received in two [...] B1 through B2. DELFIN/ 01/25/2019 12:03 PM [facility] Microscopic Description Histologic sections of the cervix cone show cervix at the transition zone with chronic inflammation and areas of high-grade squamous intraepithelial lesion (JOSE RAMON-2). The margins are negative for high-grade dysplasia. There is no evidence of invasive malignancy. Histologic sections of the endocervix show benign endocervix with no evidence of dysplasia or malignancy. DELFIN/kvng 01/25/2019 12:03 PM [facility] Disclaimer All histochemical and/or immunohistochemical results are interpreted with controls that demonstrate appropriate staining reactions before reporting results. Note on use of immunocytochemistry reagents: This test was developed and its performance characteristic determined by [facility] / [facility], Department of Laboratory Medicine. It has not been cleared or approved by the U.S. Food and Drug Administration (FDA). The FDA has determined that such clearance or approval is not necessary. The test is used for clinical purpose. It should not be regarded as investigational or for research. This laboratory is certified to perform high complexity testing. 01/25/2019 12:03 PM CDT [facility] Embedded Images 01/25/2019 12:03 PM CDT [facility] Pathology/Cytology SPECIMEN FROM LESION OF UTERINE CERVIX OBTAINED BY CONE BIOPSY / Unknown 01/23/2019 7:45 AM CDT 01/23/2019 12:56 PM CDT Miscellaneous samples (specimen) SPECIMEN FROM LESION OF UTERINE CERVIX OBTAINED BY CONE BIOPSY / Unknown 01/23/2019 7:45 AM CDT 01/23/2019 12:56 PM CDT Nolan Orlando MD LAB - PATHOLOGY/CYTO LOGY ORDERABLES [facility] [address] [place] [address] * INFLUENZA A+B - POCT (IP) URGENT CARE (09/25/2017 6:43 PM MATERIAL CLERK) Influenza A Antigen Rapid Negative Negative [facility] POCT TEST[facility] Influenza B Antigen Rapid Negative Negative [facility] QC Verified Yes Yes [facility] POC T TESTING Throat ENTIRE THROAT (SURFACE REGION OF NECK) / Unknown 09/25/2017 6:43 PM MATERIAL CLERK Monica Srinivasan APRN-CLIENT ONBOARDING ANALYST LAB - POINT O F CARE ORDERABLES Performing Organization Address [facility] de Phone Number [facility] PO[facility] TEST[facility] [address] [place] [phone] [place] [address] * (ABNORMAL) STREP A SCREEN - POCT (IP) URGENT CARE (09/25/2017 6:37 PM MATERIAL CLERK) Strep A Rapid POCT Positive(A ) Negative [facility] POCT TESTING QC Verified Yes Yes [facility] POC T TESTING Throat ENTIRE THROAT (SURFACE REGION OF NECK) / Unknown 09/25/2017 6:37 PM MATERIAL CLERK Monica Srinivasan APRN-CLIENT ONBOARDING ANALYST LAB - POINT O F CARE ORDERABLES Performing Organization Address City/[facility]/ZIP Co de Phone Number [facility] PO[facility] TEST[facility] [address] [place] [id number] [place] [address] * VITAMIN D 25-HYDROXY (03/29/2017 11:02 AM CDT) Only the most recent of2 resultswithin the time period is included. Vitamin D, 25 Hydroxy 34.8 30.0 - 100.0 ng/mL [facility] ACCOUNT BILL Comment: Vitamin D deficiency has been defined by the [place] of Medicine and an Endocrine Society practice guideline as a level of serum 25-OH vitamin D less than 20 ng/mL (1,2). The Endocrine Society went on to further define vitamin D insufficiency as a level between 21 and 29 ng/mL (2). 1. IOM ([place] of [place]). 2010. Dietary reference ?? intakes for calcium and D. [place]: The ?? National TalkTo Press. 2. Brooke MF, Annette PAYNE, Clarice MORGAN, et al. ?? Evaluation, treatment, and prevention of vitamin D ?? deficiency: an Endocrine Society clinical practice ?? guideline. JCEM. 2010; 96(7):1911-30. FASTING Blood BLOOD SPECIMEN / Unknown 03/29/2017 11:02 AM CDT 03/29/2017 Narrative Resulting Agency Comment [facility] [address] ??[facility]ly [facility] [phone] Avery Hidalgo DO LAB - CHEMISTRY TIFFANIE WILLS Performing Organization Address City/[facility]/ZIP Co de Phone Number [facility] ACCOUNT BILL [address] [place] [address] * TSH (03/29/2017 11:02 AM CDT) Only the most recent of5 resultswithin the time period is included. TSH 1.430 0.450 - 4.500 uIU/mL [facility] ACCOUNT BILL Comment:FASTING Blood BLOOD SPECIMEN / Unknown 03/29/2017 11:02 AM CDT 03/29/2017 Narrative Resulting Agency Comment [facility] [address] ??[facility] [phone] Avery Hidalgo DO LAB - CHEMISTRY ORDE RABJESUS Performing Organization Address City/[facility]/ZIP Co de Phone Number [facility] ACCOUNT BILL [address] [place] [address] * CARDIAC EKG ORDER (12/07/2015 9:03 PM [...] SCREEN (12/04/2015 12:57 PM CDT) Pathologist [facility] Mononucleosis Screen Negative Negative 12/04/2015 1:20 PM CDT [facility] Blood BLOOD SPECIMEN / Unknown 12/04/2015 12:57 PM CDT 12/04/2015 1:05 PM CDT Lydia Villaseñor MD LAB - CHEMISTRY TIFFANIE LOREEJESUS [facility] [address] [address] * EKG 12-LEAD (12/04/2015 12:22 PM CDT) Only the most recent of3 resultswithin the time period is included. Ventricular Rate 99 BPM [facility] MUSE Atrial Rate 99 BPM [facility] P-R Interval 114 ms [facility] QRS Duration ms 94 ms [facility] Q-T Interval ms 340 ms [facility] QTC Calculation (Bezet) 436 ms [facility] MUSE Calculated P [place] 70 degrees [facility] MUSE Calculated R [place] 70 degrees [facility] MUSE Calculated T [place] 64 degrees [facility] M[facility] Interpretation EKG Normal sinus rhythm RSR' or QR pattern in V1 suggests right ventricular conduction delay When compared with ECG of 02-MAR-2013 19:44, No significant change was found Confirmed by Solomon Lopez ([id number]) on 12/06/2015 10:48:05 AM [facility] MUSE 12/04/2015 12:2 2 PM CDT 12/06/2015 10:48 AM CDT Lydia Villaseñor MD ECG ORDERABLES Performing Organization Address City/[facility]/ZIP Co de Phone Number [facility] * HCG URINE QUALITATIVE - POINT OF CARE (IP) (12/04/2015 12:16 PM CDT) Only the most recent of3 resultswithin the time period is included. HCG Qual Urine Negative Negative [facility] POCT TESTING QC Verified Yes Yes [facility] POC T TESTING Urine specimen (specimen) URINE / Unknown 12/04/2015 12:16 PM CDT Lydia Villaseñor MD LAB - POINT OF CARE ORDERABLES Performing Organization Address City/[facility]/ZIP Co de Phone Number [facility] POCT TESTING [address] [place] [address], [facility] * (ABNORMAL) URINALYSIS ROUTINE W/REFLEX TO CULTURE (12/04/2015 12:04 PM CDT) Color UA Yellow Straw, Yellow, Dark Yellow 12/04/2015 12:19 PM [facility] Clarity UA Clear 12/04/2015 12:19 PM [facility] Specific [place] UA 1.014 1.005 - 1.030 12/04/2015 12:19 PM [facility] pH UA 8.5(H) 5.0 - 8.0 pH 12/04/2015 12:19 PM [facility] Protein UA Negative Negative 12/04/2015 12:19 PM [facility] Blood UA Negative Negative 12/04/2015 12:19 PM [facility] Leukocyte UA Trace(A) Negative 12/04/2015 12:19 PM [facility] Nitrite UA Negative Negative 12/04/2015 12:19 PM [facility] Glucose UA Negative Negative 12/04/2015 12:19 PM [facility] Ketone UA Negative Negative 12/04/2015 12:19 PM [facility] Bilirubin UA Negative Negative 12/04/2015 12:19 PM [facility] Urobilinogen UA 0.2 0.1 - 1.0 EU/dL 12/04/2015 12:19 PM [facility] WBC UA Auto 0-2 0-2, 2-5 # /hpf 12/04/2015 12:19 PM [facility] RBC UA Auto 2-5 0-2, 2-5 # /hpf 12/04/2015 12:19 PM [facility] Epithelial Cell UA Auto 2-5 0-2, 2-5 # /hpf 12/04/2015 12:19 PM [facility] Bacteria UA Auto 1+(A) None seen 12/04/2015 12:19 PM [facility] Reflex Status Culture to follow 12/04/2015 12:19 PM [facility] Urine URINE SPECIMEN OBTAINED BY CLEAN CATCH PROCEDURE / Unknown 12/04/2015 12:04 PM CDT 12/04/2015 12:10 PM T Lydia Villaseñor MD LAB - URINALYSIS ORD ERABLES [facility] [address] [address] * CULTURE URINE (12/04/2015 12:04 PM CDT) Only the most recent of2 resultswithin the time period is included. Culture <10,000 CFU/mL urogenital colton KERVIN 12/06/2015 7:38 AM CDT [facility] Urine URINE SPECIMEN OBTAINED BY CLEAN CATCH PROCEDURE / Unknown 12/04/2015 12:04 PM CDT 12/04/2015 12:10 PM CDT Lydia Villaseñor MD LAB - MICROBIOLOGY O RDERABLES [facility]CRO[facility] [address] [place] [address] [phone] * XR CHEST 1VW PORTABLE (12/04/2015 12:02 [...] TCHOL/HDL (PO REF LAB) (10/15/2015 9:20 AM MATERIAL CLERK) Cholesterol 199 <200 mg/dL [facility] INSURANCE BILL Triglycerides 133 <150 mg/dL [facility] INSURANCE BILL HDL Cholesterol 66 >40 mg/dL [facility] INSURANCE BILL VLDL Calculated 27 <=30 mg/dL [facility] INSURANCE BILL LDL Calculated 106 <130 mg/dL [facility] INSURANCE BILL Comment:LDL/HDL RATIO BLOOD ([facility]) 1.6 <5.0 Cholesterol/HDL Ratio 3.0 <4.5 [facility] INSURANCE BILL Blood specimen (specimen) BLOOD SPECIMEN / Unknown 10/15/2015 9:20 AM MATERIAL CLERK 10/15/2015 3:44 PM MATERIAL CLERK Narrative Resulting Agency Comment [address] ??[place] [phone] Avery Hidalgo DO LAB - CHEMISTRY TIFFANIE WILLS Performing Organization Address City/[facility]/ZIP Co de Phone Number [facility] INSURANCE BILL * T4 FREE (10/15/2015 9:20 AM MATERIAL CLERK) Only the most recent of2 resultswithin the time period is included. T4 Free 0.86 0.65 - 1.34 ng/dL [facility] INSURANCE BILL Blood specimen (specimen) BLOOD SPECIMEN / Unknown 10/15/2015 9:20 AM MATERIAL CLERK 10/15/2015 3:44 PM MATERIAL CLERK Narrative Resulting Agency Comment [address] ??[place] [phone] Avery Hidalgo DO LAB - CHEMISTRY TIFFANIE WILLS [facility] INSURANCE BILL * ALBUMIN URINE TIMED (06/05/2015 10:56 AM CDT) Albumin Random Urine <5.0 Not Established mcg/mL [facility] Collection Time Timed Urine 24 Hrs [facility] Albumin 24 Hour Urine <30 mg/24 hrs [facility] Comment:Unable to calculate excretion rate because the analyte concentration is outside the instrument measuring range. Volume Timed Urine 1,550 mL [facility] Urine specimen (specimen) URINE SPECIMEN OBTAINED BY CLEAN CATCH PROCEDURE / Unknown 06/05/2015 10:56 AM CDT 06/05/2015 1:15 PM CDT Annette Singh MD LAB - URINE CHEMISTR Y ORDERABLES Performing Organization Address City/[facility]/ZIP Co de Phone Number [address] [phone] * PROTEIN URINE TIMED QUANTITATIVE (06/05/2015 10:56 AM CDT) Protein Urine <7 Not Established mg/dL [facility] Collection Time Timed Urine 24 Hrs [facility] Protein 24 Hour Urine 77 - 197 mg/24 hrs [facility] Comment:Unable to calculate excretion rate because the analyte concentration is outside the instrument measuring range. Volume Timed Urine 1,550 mL [facility] Urine specimen (specimen) URINE SPECIMEN OBTAINED BY CLEAN CATCH PROCEDURE / Unknown 06/05/2015 10:56 AM CDT 06/05/2015 1:15 PM CDT Annette Singh MD LAB - URINE CHEMISTR Y ORDERABLES Performing Organization Address City/[facility]/ZIP Co de Phone Number [address] [phone] * CREATININE BLOOD (06/05/2015 10:56 AM CDT) Creatinine 0.8 0.6 - 1.2 mg/dL [facility] eGFR >60 >60 mL/min/1.73 m2 [facility] Blood specimen (specimen) BLOOD SPECIMEN / Unknown 06/05/2015 10:56 AM CDT 06/05/2015 1:15 PM CDT Annette Singh MD LAB - CHEMISTRY TIFFANIE WILLS Performing Organization Address City/[facility]/ZIP Co de Phone Number [address] [phone] * CREATININE CLEARANCE URINE TIMED + BLOOD (06/05/2015 10:56 AM CDT) Only the most recent of2 resultswithin the time period is included. Creatinine Urine 59 Not Established mg/dL [facility] Creatinine 0.8 0.6 - 1.2 mg/dL [facility] Volume Timed Urine 1,550 mL [facility] Collection Time Timed Urine 24 Hrs [facility] Creatinine Clearance 79 70 - 130 mL/minute/1.73m 2 [facility] Chart BSA 1.41 Avg. BSA = 1.73 m2 m2 [facility] Creatinine Clearance (Corrected for BSA) 97 Not Established mL/minute [facility] Urine specimen (specimen) URINE SPECIMEN OBTAINED BY CLEAN CATCH PROCEDURE / Unknown 06/05/2015 10:56 AM CDT 06/05/2015 1:15 PM CDT Annette Singh MD LAB - URINE CHEMISTR Y ORDERABLES [address] [phone] * XR CHEST 2VW (06/01/2015 8:12 AM CDT) Only the most recent of4 resultswithin the time period is included. Anatomical Region Laterality Modality Chest Other Impressions 06/01/2015 12:11 PM CDT Impression: No acute pulmonary disease. Report dictated by Jovany Sears M.D. (vice president and portfolio manager). This report was approved ??by Jovany Sears [...] dictated by Jovany Sears M.D. (vice president and portfolio manager). This report was approved by Jovany Sears M.D. on 06/01/2015 11:50AM . I, Dr. Dr. MATTHEW TAYLOR MD have personally reviewed and interpreted thisexamination/study. This report was electronically signed by Dr. MATTHEW TAYLOR MD on06/01/2015 12:11 PM . Annette Singh MD DIAGNOSTIC IMAGING O RDERABLES * PTT [facility] (06/01/2015 7:43 AM CDT) APTT 28.6 23.0 - 38.4 Seconds [facility] Comment:Suggested therapeuti c range for full dose I.V. heparin therapy for venous thromboembolism is 66.0-91.0 seconds. Blood specimen (specimen) BLOOD SPECIMEN / Unknown 06/01/2015 7:43 AM CDT 06/01/2015 8:48 AM CDT Narrative [facility] - 06/01/2015 9:11 AM CDT Is patient on Heparin, Argatroban or Dabigatran?->N Annette Singh MD LAB - COAGULATION OR DERABLES [address] [phone] * PT-INR [facility] (06/01/2015 7:43 AM CDT) PT 14.6 12.1 - 14.8 Seconds [facility] INR 1.1 See Comment [facility] Comment: Suggested therapeutic range for low-intensity coumadin therapy for venous thromboembolism prophylaxis is an INR of 2.0-3.0. ??For high risk patients (Mitral Valve Prosthesis, Atrial Fibrillation, history of TIA/stroke), suggested prophylactic therapeutic range is an INR of 2.5-3.5. Blood specimen (specimen) BLOOD SPECIMEN / Unknown 06/01/2015 7:43 AM CDT 06/01/2015 8:48 AM CDT Narrative [facility] - 06/01/2015 9:10 AM CDT Is patient on Heparin, Argatroban or Dabigatran?->N Annette Singh MD LAB - COAGULATION OR DERABLES Performing Organization Address [facility]/State/[facility] Co de Phone Number [facility] [address] [place] [address], [facility] [phone] * (ABNORMAL) CYTOMEGALOVIRUS AB IGG/IGM RFLXD (06/01/2015 7:43 AM CDT) Cytomegalovirus Antibody IgG 5.50(H) 0.00 - 0.59 U/mL [facility] (BEAKER) Comment: ? Negative ?<0.60 ? Equivocal ?? 0.60 - 0.69 ? Positive ?>0.69 Cytomegalovirus Antibody IgM <30.0 0.0 - 29.9 AU/mL [facility] (BEAKER) Comment: ?Negative ? <30.0 ?Equivocal ??30.0 - 34.9 ?Positive ? >34.9 A positive result is generally indicative of acute infection, reactivation or persistent IgM production. Blood specimen (specimen) BLOOD SPECIMEN / Unknown 06/01/2015 7:43 AM CDT 06/01/2015 8:59 AM CDT Narrative [facility] ([place]) - 06/05/2015 3:21 PM CDT Performed at: ??02 - [address] ??[id number] Licensed Direct Entry Midwife: Willi Horne MD, Phone: ??[phone] Annette Singh MD LAB - SEROLOGY ORDER SHARON Performing Organization Address [facility] Co de Phone Number [facility] ([place]) * TREPONEMA PALLIDUM AB IGG DONOR (06/01/2015 7:43 AM CDT) Donor Treponema pallidum Antibody IgG Non Reactive Non Reactive [facility] ([place] Comment: Test performed with [employer] CAPTIA Syphilis (T. pallidum)-G kit. Blood specimen (specimen) BLOOD SPECIMEN / Unknown 06/01/2015 7:43 AM CDT 06/01/2015 9:18 AM CDT Narrative [facility] ([place]) - 06/02/2015 7:10 PM CDT Performed at: ??01 - [employer] [address] ??[id number] Licensed Direct Entry Midwife: Andry Ty PhD, Phone: ??[phone] Annette Singh MD LAB - SEROLOGY ORDER SHARON Performing Organization Address [facility] de Phone Number [facility] EKTA [place]) * HIV-1/HCV MACIEJ DONOR (06/01/2015 7:43 AM CDT) HIV-1/HCV/HBV MACIEJ Comment Non Reactive [facility] ([place] Comment: Nonreactive for HIV-1 RNA ?Nonreactive for HCV RNA ?Nonreactive for HBV DNA Test performed with [employer] Ultrio Assay kit. Blood specimen (specimen) BLOOD SPECIMEN / Unknown 06/01/2015 7:43 AM CDT 06/01/2015 8:59 AM CDT Narrative [facility] ([place]) - 06/02/2015 7:10 PM CDT Performed at: ??01 - [facility] [address] ??[id number] Licensed Direct Entry Midwife: Andry Ty PhD, Phone: ??[phone] Annette Singh MD LAB - CHEMISTRY TIFFANIE WILLS Performing Organization Address City/[facility]/ZIP Co de Phone Number [facility] EKTA [facility]) * HIV 1/0/2 DONOR (06/01/2015 7:43 AM CDT) Donor HIV-1/O/2 Antibody Negative Negative [facility] ([facility]) Comment:Test performed with [employer] Prism HIV O Plus kit. Blood specimen (specimen) BLOOD SPECIMEN / Unknown 06/01/2015 7:43 AM CDT 06/01/2015 9:18 AM CDT Narrative [facility] ([facility] - 06/03/2015 6:16 AM CDT Performed at: ??01 - [facility] [address] [place] [address] ??[id number] Licensed Direct Entry Midwife: Andry Ty PhD, Phone: ??[phone] Annette Singh MD LAB - CHEMISTRY TIFFANIE WILLS Performing Organization Address City/[facility]/ZIP Co de Phone Number [facility] RAYRAY GutiérrezB[facility]) * HEPATITIS B SURFACE ANTIGEN RFLX DONOR (06/01/2015 7:43 AM CDT) Hepatitis B Virus Surface Antigen Negative Negative [facility] ([facility]) Comment:Test performed with Sims Prism HBsAg kit. Blood specimen (specimen) BLOOD SPECIMEN / Unknown 06/01/2015 7:43 AM CDT 06/01/2015 9:18 AM CDT Narrative [facility] ([facility]) - 06/03/2015 6:16 AM CDT Performed at: ??01 - [facility] [address] ??[id number] Licensed Direct Entry Midwife: Andry Ty PhD, Phone: ??[phone] Annette Singh MD LAB - CHEMISTRY TIFFANIE WILLS [facility] ([facility]) * (ABNORMAL) CYTOMEGALOVIRUS TOT AB RFLX IGG/IGM DONOR (06/01/2015 7:43 AM CDT) Donor Cytomegalovirus Total Antibody Reactive( A) Non Reactive [facility] ([facility]) Comment:Test performed with [employer] Capture-CMV IgG and IgM kit. Blood specimen (specimen) BLOOD SPECIMEN / Unknown 06/01/2015 7:43 AM CDT 06/01/2015 8:59 AM CDT Narrative [facility] ([facility]) - 06/05/2015 3:21 PM CDT Performed at: ??01 - [employer] [address] [place] [address] ??[id number] Licensed Direct Entry Midwife: Andry Ty PhD, Phone: ??[phone] Annette Singh MD LAB - SEROLOGY ORDER SHARON Performing Organization Address [facility]/ZIP Co de Phone Number [facility] ([facility]) * HEPATITIS C AB W RFLX VERIFICATION (06/01/2015 7:43 AM CDT) [facility] Hepatitis C Antibody <0.1 0.0 - 0.9 s/co ratio [facility] ([facility]) 06/01/2015 7:43 AM CDT 06/01/2015 9:18 AM CDT Narrative [facility]) - 06/02/2015 6:15 AM CDT Performed at: ??01 - [facility] [address] ??[id number] Licensed Direct Entry Midwife: Erasmo Morris PhD, Phone: ??[phone] Annette Singh MD LAB - CHEMISTRY TIFFANIE WILLS [facility] ([facility]) * QUANTIFERON TB-GOLD INC (06/01/2015 7:43 AM CDT) Pathologist [facility] QuantiFERON TB Gold Negative Negative [facility] (BEAKER) Comment: The specimen received for QuantiFERON testing was incubated by the ordering institution. ??Specific procedures outlined in our Directory of Services and in the package insert for the QuantiFERON Gold (In Tube) test must be followed to enable for proper stimulation of cells for the production of interferon gamma. QuantiFERON Criteria Comment [facility] ([facility] Comment: To be considered positive [...] values. QuantiFERON TB Antigen Value 0.13 IU/mL [facility] (BEAKER) QuantiFERON Nil Value 0.16 IU/mL [facility] (BEAKER) QuantiFERON Mitogen Value >10.00 IU/mL [facility] ([employer]) QFT TB Ag minus Nil Value <0.00 IU/mL [facility] (BESubtextual) Interpretation Comment [facility] ([facility]) Comment: The QuantiFERON TB Gold (in Tube) [...] AM CDT 06/01/2015 8:47 AM CDT Narrative [facility] ([facility]) - 06/04/2015 6:14 AM CDT Performed at: ??01 - [facility] [address] ??[id number] Licensed Direct Entry Midwife: Erasmo Morris PhD, Phone: ??[phone] Annette Singh MD LAB - SEROLOGY ORDER SHARON [facility] ([place]) * (ABNORMAL) URINALYSIS W/MICROSCOPIC NO CULTURE (06/01/2015 7:43 AM CDT) Color UA Yellow Straw, Yellow, Colorless, Light Yellow [facility] Clarity UA Clear Clear [facility] Specific [place] UA 1.012 1.001 - 1.030 [facility] pH UA 5.0 5.0 - 8.0 [facility] Protein UA Negative <=20 mg/dL [facility] Glucose UA 300(A) Negative mg/dL [facility] Ketone UA Negative Negative mg/dL [facility] Bilirubin UA Negative Negative mg/dL [facility] Blood UA Negative Negative [facility] Nitrite UA Negative Negative [facility] Leukocyte Esterase Moderate(A) Negative [facility] Urobilinogen UA <2.0 <2.0 mg/dL [facility] RBC UA 1 0 - 8 /HPF [facility] WBC UA 6(H) 0 - 2 /HPF [facility] Bacteria UA Occasional Rare, Occasional, None /HPF [facility] Squamous Epithelial Cells UA 1 0 - 1 /HPF [facility] Mucus UA Many(A) None /LPF [facility] Urine specimen (specimen) URINE SPECIMEN OBTAINED BY CLEAN CATCH PROCEDURE / Unknown 06/01/2015 7:43 AM CDT 06/01/2015 8:47 AM CDT Annette Singh MD LAB - URINALYSIS ORD ERABLES [address] [phone] * REF LAB COMMENT (06/01/2015 7:43 AM CDT) Comment Comment [facility] ([place]) Comment: Non reactive HCV antibody screen is consistent with no HCV infection, unless recent infection is suspected or other evidence exists to indicate HCV infection. Blood specimen (specimen) 06/01/2015 7:43 AM CDT 06/01/2015 9:18 AM CDT Narrative [facility] ([place]) - 06/02/2015 6:15 AM CDT Performed at: ??01 - [address] ??[id number] Licensed Direct Entry Midwife: Erasmo Morris PhD, Phone: ??[phone] Annette Singh MD LAB - CHEMISTRY ORDE JOHANN Performing Organization Address [facility] Co de Phone Number [facility] * HEPATITIS B SURFACE ANTIBODY QUANT (06/01/2015 7:43 AM CDT) [facility] Hepatitis B Virus Surface Antibody Quantitative 112.6 Immunity>9 .9 mIU/mL [facility] ([place]) Comment: ??Status of Immunity ? Anti-HBs Level ? Inconsistent with Immunity ? 0.0 - 9.9 Consistent with Immunity ?>9.9 Blood specimen (specimen) BLOOD SPECIMEN / Unknown 06/01/2015 7:43 AM CDT 06/01/2015 9:18 AM CDT Narrative [facility]) - 06/02/2015 6:15 AM CDT Performed at: ??01 - [address] ??[id number] Licensed Direct Entry Midwife: Erasmo Morris PhD, Phone: ??[phone] Annette Singh MD LAB - SEROLOGY ORDER SHARON Performing Organization Address [facility] Co de Phone Number [facility] ([place] * DRUG ABUSE PANEL 10-20+ETHANOL URINE NO CONFIRM (06/01/2015 7:43 AM CDT) Pathologist [facility] Amphetamines Screen Urine Negative Negative: < 1000 ng/mL [facility] Barbiturates Screen Urine Negative Negative: < 200 ng/mL [facility] Benzodiazepine Screen Urine Negative Negative: < 200 ng/mL [facility] Opiates Urine Negative Negative: < 300 ng/mL [facility] Cocaine Metabolites Urine Negative Negative: < 300 ng/mL [facility] Phencyclidine Screen Urine Negative Negative: < 25 ng/ml [facility] Cannabinoids Screen Urine Negative Negative: <50 ng/mL [facility] Methadone Screen Urine Negative Negative: < 300 ng/mL [facility] Urine specimen (specimen) URINE / Unknown 06/01/2015 7:43 AM CDT 06/01/2015 8:46 AM CDT Narrative [facility] - 06/01/2015 9:05 AM CDT The Urine Toxicology Screening Panel does not screen for Propoxyphene, Meprobamate, Carisoprodol, Trazodone, muyu-pgx-xrttazy medications and/or volatiles (Acetone, Isopropanol, Methanol or Ethylene Glycol). Ethanol, Salicylate, Acetaminophen, Tricyclic Antidepressants and several therapeutic drugs may be individually assayed in serum or plasma specimen. Toxicology testing by the [facility] is an aid to medical diagnosis and treatment of patients. No documented chain of custody was maintained. Results are intended to be used for clinical purposes only. ? Annette Singh MD LAB - URINE CHEMISTR Y ORDERABLES [facility] [address] [place] [address], [facility] [phone] * URIC ACID BLOOD (06/01/2015 7:43 AM CDT) Pathologist [facility] Uric Acid 5.0 2.6 - 7.2 mg/dL [facility] Blood specimen (specimen) BLOOD SPECIMEN / Unknown 06/01/2015 7:43 AM CDT 06/01/2015 8:48 AM CDT Annette Singh MD LAB - CHEMISTRY TIFFANIE WILLS Performing Organization Address City/[facility]/ZIP Co de Phone Number [address] [phone] * WEST NILE VIRUS ANTIBODY IGG/IGM PANEL (06/01/2015 7:43 AM CDT) [facility] West Nile Virus AB IGG Negative Negative [facility] ([facility]) Comment: No detectable West Nile Virus IgG Antibody. If a recent infection is suspected, another specimen should be submitted for testing within 7-14 days. West Nile Virus AB IGM Negative Negative [facility] ([facility]) Comment: No detectable West Nile Virus IgM Antibody. If a recent infection is suspected, another specimen should be submitted for testing within 7-14 days. Blood specimen (specimen) BLOOD SPECIMEN / Unknown 06/01/2015 7:43 AM CDT 06/01/2015 9:18 AM CDT Narrative [facility] ([place]) - 06/03/2015 3:19 PM CDT Performed at: ??01 - [address] ??[id number] Licensed Direct Entry Midwife: Willi Horne MD, Phone: ??[phone] Annette Singh MD LAB - CHEMISTRY TIFFANIE WILLS [facility] ([facility]) * STRONGYLOIDES ANTIBODY IGG (06/01/2015 7:43 AM CDT) Pathologist [facility] Strongyloides Antibody IgG 0.01 <=1.49 IV [facility] ([facility]) Comment: INTERPRETIVE INFORMATION: Strongyloides Ab, IgG by [...] infection. Test developed and characteristics determined by [employer]. See Compliance Statement D: [email or web address] Blood specimen (specimen) BLOOD SPECIMEN / Unknown 06/01/2015 7:43 AM CDT 06/01/2015 9:18 AM CDT Annette Singh MD LAB - SEROLOGY ORDER SHARON [facility] ([place]) * EDWIN-MONTOYA VIRUS ANTIBODY TO VCA IGM (06/01/2015 7:43 AM CDT) Edwin-Montoya VCA Antibody IgM <10.0 0.0 - 43.9 U/mL [facility] [employer] [facility] ([place]) Comment: INTERPRETIVE INFORMATION: Edwin-Montoya Virus Antibody to ?Viral Capsid Antigen, IgM ??35.9 U/mL or less.......Not Detected ?36.0-43.9 U/mL..........Indeterminate - Repeat testing in ?10-14 days may be helpful. ??44.0 U/mL or greater....Detected Interpretive information regarding serologic features of EBV-associated diseases is available at [email or web address]. Blood specimen (specimen) BLOOD SPECIMEN / Unknown 06/01/2015 7:43 AM CDT 06/01/2015 9:18 AM CDT Annette Singh MD LAB - SEROLOGY ORDER SHARON Performing Organization Address [facility]/ZIP Co de Phone Number [facility]) * RPR (06/01/2015 7:43 AM CDT) Pathologist [facility] RPR Non-reacti ve Non-reacti ve [facility] Blood specimen (specimen) BLOOD SPECIMEN / Unknown 06/01/2015 7:43 AM CDT 06/01/2015 8:50 AM CDT Annette Singh MD LAB - CHEMISTRY ORDE RABJESUS Performing Organization Address [facility]/ZIP Co de Phone Number [address] [phone] * (ABNORMAL) EDWIN-MONTOYA VIRUS ANTIBODY TO VCA IGG (06/01/2015 7:43 AM CDT) Pathologist [facility] Edwin-Montoya Virus Antibody To Viral Capsid Antigen IgG 114.0(H) 0.0 - 21.9 U/mL [facility] ([facility]) Comment: INTERPRETIVE INFORMATION: Edwin-Montoya Virus Antibody to ?Viral Capsid Antigen, IgG ??17.9 U/mL or less.......Not Detected ??18.0-21.9 U/mL..........Indeterminate - Repeat testing in ?10-14 days may be helpful. ??22.0 U/mL or greater....Detected Interpretive information regarding serologic features of EBV-associated diseases is available at [email or web address]. Blood specimen (specimen) BLOOD SPECIMEN / Unknown 06/01/2015 7:43 AM CDT 06/01/2015 9:18 AM CDT Annette Singh MD LAB - CHEMISTRY TIFFANIE WILLS Performing Organization Address [facility]/ZIP Co de Phone Number [facility] ([facility]) * NICOTINE + METABOLITES BLOOD (06/01/2015 7:43 AM CDT) Pathologist [facility] Nicotine None Detected ng/mL [facility] ([facility]) Comment: Nicotine levels greater than 2.0 are consistent with the use of tobacco or tobacco cessation products. Cotinine None Detected ng/mL [facility] ([facility]) Comment: Cotinine levels greater than 20.0 are consistent with the use of tobacco or tobacco cessation products. Blood specimen (specimen) BLOOD SPECIMEN / Unknown 06/01/2015 7:43 AM CDT 06/01/2015 8:48 AM CDT Narrative [facility] ([facility]) - 06/07/2015 7:06 PM CDT Performed at: ??01 - [facility] [address] ??[id number] Licensed Direct Entry Midwife: Willi Horne MD, Phone: ??[phone] Annette Singh MD LAB - CHEMISTRY TIFFANIE WILLS Performing Organization Address City/[facility]/ZIP Co de Phone Number [facility] ([facility]) * PHOSPHORUS BLOOD (06/01/2015 7:43 AM CDT) Pathologist [facility] Phosphorus 2.4 2.3 - 4.7 mg/dL [facility] Blood specimen (specimen) BLOOD SPECIMEN / Unknown 06/01/2015 7:43 AM CDT 06/01/2015 8:48 AM CDT Annette Singh MD LAB - CHEMISTRY TIFFANIE WILLS Performing Organization Address [facility]/ZIP Co de Phone Number [address] [phone] * HEPATITIS B CORE ANTIBODY (06/01/2015 7:43 AM CDT) Pathologist [facility] HBc Antibody Total Non-reacti ve Non-reacti ve [facility] Blood specimen (specimen) BLOOD SPECIMEN / Unknown 06/01/2015 7:43 AM CDT 06/01/2015 8:50 AM CDT Annette Singh MD LAB - CHEMISTRY TIFFANIE WILLS Performing Organization Address [facility] Co de Phone Number [address] [phone] * ALCOHOL ETHYL BLOOD (06/01/2015 7:43 AM CDT) Pathologist [facility] Interpretation Ethanol None Detected None Detected mg/dL [facility] Comment:Ethanol levels less than 10 mg/dL are resulted as None detected . Blood specimen (specimen) BLOOD SPECIMEN / Unknown 06/01/2015 7:43 AM CDT 06/01/2015 8:48 AM CDT Annette Singh MD LAB - CHEMISTRY TIFFANIE WILLS Performing Organization Address [facility] Co de Phone Number [address] [phone] * (ABNORMAL) HEPATITIS A ANTIBODY (06/01/2015 7:43 AM CDT) Pathologist [facility] Hepatitis A Virus Antibody Total Positive(A ) Negative [facility] ([place]) Blood specimen (specimen) 06/01/2015 7:43 AM CDT 06/01/2015 9:18 AM CDT Narrative [facility] ([place]) - 06/02/2015 6:15 AM CDT Performed at: ??01 - [address] ??[id number] Licensed Direct Entry Midwife: Erasmo Morris PhD, Phone: ??[phone] Annette Singh MD LAB - CHEMISTRY ORDGeo WILLS Performing Organization Address City/[facility]/ZIP Co de Phone Number [facility] ([facility]) * HLA TYPING SEROLOGIC DR,DQ (05/18/2015 8:49 AM CDT) DR1 1 [facility] ([facility]) DR2 11 [facility] ([facility]) DRW-1 52 [facility] ([facility]) DRW-2 - [facility] ([facility]) DQ 1 5 [facility] ([facility]) DQ 2 7 [facility] ([facility]) DRDQ Test Date 05/28/20 15 [facility] ([facility]) Comment: This test was developed and its performance characteristics determined bythe [facility]. ??It has not been cleared or approved by theU.S. Food and Drug Administration. ??The FDA has determined that suchclearance or approval is not necessary. ?? This test is used for clinicalpurposes. ??It should not be regarded as investigational or for research.This laboratory is certified under the Clinical Laboratory ImprovementAmendments of 1988 (CLIA-88) as qualified to perform high complexityclinical laboratory testing.Performed at: ??[facility], [address] @ [facility], [place] ??[id number] Director: Douglas Pham MD, Blood specimen (specimen) BLOOD SPECIMEN / Unknown 05/18/2015 8:49 AM CDT 05/18/2015 9:09 AM CDT Annette Singh MD LAB - BLOOD BANK ORD ERABLES [facility] ([facility]) * HLA TYPING A,B,C MULTIPLE ANTIGEN (05/18/2015 8:49 AM CDT) ABC Serotype A1 1 [facility] ([facility]) ABC Serotype A2 2 [facility] ([facility]) ABC Serotype B1 8 [facility] ([facility]) ABC Serotype B2 51 [facility] ([facility]) ABC Serotype BW1 6 [facility] ([facility]) ABC Serotype BW2 4 [facility] ([facility]) ABC Serotype Cw-1 2 [facility] ([facility]) ABC Serotype Cw-2 5 [facility] ([facility]) ABC Serotype Test Date 05/28/20 15 [facility] ([facility]) Comment: This test was developed and its performance characteristics determined bythe [facility]. ??It has not been cleared or approved by theU.S. Food and Drug Administration. ??The FDA has determined that suchclearance or approval is not necessary. ?? This test is used for clinicalpurposes. ??It should not be regarded as investigational or for research.This laboratory is certified under the Clinical Laboratory ImprovementAmendments of 1988 (CLIA-88) as qualified to perform high complexityclinical laboratory testing.Performed at: ??[facility], [address] @ [facility], [place] ??[id number] Director: Douglas Pham MD, Blood specimen (specimen) BLOOD SPECIMEN / Unknown 05/18/2015 8:49 AM CDT 05/18/2015 9:09 AM CDT Annette Singh MD LAB - BLOOD BANK ORD [facility] [facility] ([facility]) * TYPE + SCREEN PANEL (05/18/2015 8:49 AM CDT) Only the most recent of2 resultswithin the time period is included. Typem O POS [facility] Antibody Screen NEG [facility] Blood specimen (specimen) 05/18/2015 8:49 AM CDT 05/18/2015 9:12 AM CDT Annette Singh MD LAB - BLOOD BANK ORD ERABLES [facility] [address] [place] [address], [facility] * (ABNORMAL) URINALYSIS ROUTINE AUTO (01/01/2015 2:10 AM CDT) Only the most recent of2 resultswithin the time period is included. Color UA Yellow Straw, Yellow, Dark Yellow 01/01/2015 2:24 AM T [facility] Clarity UA Clear 01/01/2015 2:24 AM T [facility] Specific [place] UA 1.021 1.005 - 1.030 01/01/2015 2:24 AM [facility] pH UA 5.5 5.0 - 8.0 pH 01/01/2015 2:24 AM [facility] Protein UA Negative Negative 01/01/2015 2:24 AM [facility] Blood UA Negative Negative 01/01/2015 2:24 AM [facility] Leukocyte UA 2+(A) Negative 01/01/2015 2:24 AM [facility] Nitrite UA Negative Negative 01/01/2015 2:24 AM [facility] Glucose UA Negative Negative 01/01/2015 2:24 AM [facility] Ketone UA 1+(A) Negative 01/01/2015 2:24 AM [facility] Bilirubin UA Negative Negative 01/01/2015 2:24 AM [facility] Urobilinogen UA 0.2 0.1 - 1.0 EU/dL 01/01/2015 2:24 AM [facility] WBC UA Auto 20-50(A) 0-2, 2-5 # /hpf 01/01/2015 2:24 AM [facility] RBC UA Auto 2-5 0-2, 2-5 # /hpf 01/01/2015 2:24 AM [facility] Epithelial Cell UA Auto 2-5 0-2, 2-5 # /hpf 01/01/2015 2:24 AM [facility] Bacteria UA Auto 1+(A) None seen 01/01/2015 2:24 AM [facility] Hyaline Casts UA Auto 2-5(A) 0 - 2 #/lpf 01/01/2015 2:24 AM [facility] Urine Microscopy Urine microscopy not indicated 01/01/2015 2:24 AM CDT [facility] Urine URINE SPECIMEN OBTAINED BY CLEAN CATCH PROCEDURE / Unknown 01/01/2015 2:10 AM CDT 01/01/2015 2:15 AM CDT Jayne Chen MD LAB - URINALYSIS ORD ERABLES Performing Organization Address City/[facility]/ZIP Co de Phone Number [facility] [address] [address] * LIPASE BLOOD (01/01/2015 1:04 AM CDT) Only the most recent of3 resultswithin the time period is included. Lipase 141 73 - 393 U/L 01/01/2015 1:31 AM CDT [facility] Blood BLOOD SPECIMEN / Unknown 01/01/2015 1:04 AM CDT 01/01/2015 1:13 AM CDT Jayne Chen MD LAB - CHEMISTRY ORDE RABLES [facility] [address] [address] * (ABNORMAL) CULTURE STREP GROUP A (10/14/2014 3:51 PM MATERIAL CLERK) Beta-Strep Culture, Group A Only (A) [facility] [...] OF NECK) / Unknown 10/14/2014 3:51 PM MATERIAL CLERK 10/14/2014 9:09 PM MATERIAL CLERK Narrative Resulting Agency Comment [facility] [address] ??Formerly [facility] [phone] Jeremie Kolb MD LAB - MICROBIOLOGY O RDERABLES [facility] ACCOUNT BILL * STREP A SCREEN - POINT OF CARE (AMB) (10/14/2014 3:50 PM MATERIAL CLERK) Strep A Rapid POCT Negative Negative Strep A Internal Control NEGATIVE - POSITIVE Throat swab (specimen) NASOPHARYNGEAL SWAB / Unknown 10/14/2014 3:50 PM MATERIAL CLERK Jeremie Kolb MD LAB - POINT OF CARE ORDERABLES * HCG URINE QUALITATIVE - POCT (IP) URGENT CARE (11/08/2013 4:48 PM CDT) HCG Qual Urine Negative Negative [facility] POCT TESTING QC Verified Yes Yes [facility] POC T TESTING Urine specimen (specimen) URINE / Unknown 11/08/2013 4:48 PM CDT Tana Sosa MUSEUM SPECIALIST-CLIENT ONBOARDING ANALYST LAB - POI NT OF CARE ORDERABLES Performing Organization Address [facility] Co de Phone Number [facility] POCT TESTING [address] [place] [address] * CARDIAC RHYTHM STRIP ORDER (04/20/2013 9:29 [...] [AKSHAT] on 04/25/2013 at ??9:06 AM (File: [id number]) Reason: linked to wrong order Procedure Note [...] Negative Negative, Uninterpretable 3 5:34 PM CDT [facility] MICROBIOLOGY C difficile Toxin A + B Negative Negative, Uninterpretable 3 5:34 PM CDT [facility] MICROBIOLOGY Interpretation C difficile Negative for toxigenic C. difficile Negative for toxigenic C. difficile 3 5:34 PM CDT [facility] MICROBIOLOGY Stool STOOL SPECIMEN / Unknown Collection / Unknown 04/19/2013 10:59 AM CDT 04/19/2013 12:42 PM CDT Josiah Breen MD LAB - MICROBIOLOGY O RDERABLES Performing Organization Address City/State/[facility] Co de Phone Number [facility] MICROBIOLOGY [address] [facility] [address] * CULTURE STOOL+SHIGA-LIKE TOXIN (04/19/2013 10:59 AM CDT) Culture No growth Salmonella, Shigella, Campylobacter , E. coli 0157:h7 or Yersinia 04/21/2013 8:30 AM CDT [facility] MICROBIOLOGY Culture Shiga Toxin Negative 04/21/2013 8:30 AM CDT [facility] MICROBIOLOGY Stool STOOL SPECIMEN / Unknown Collection / Unknown 04/19/2013 10:59 AM CDT 04/19/2013 12:42 PM CDT Josiah Breen MD LAB - MICROBIOLOGY O MEMO Performing Organization Address [facility] de Phone Number [facility] [address] [facility] [address] [place], [place] [id number] [place] [address] * GIARDIA CRYPTOSPORIDIUM ANTIGEN PANEL (04/19/2013 10:59 AM CDT) Giardia Antigen DFA Negative Negative 04/22/2013 2:06 PM CDT [facility] MICROBIOLOGY Cryptosporidium Antigen DFA Negative Negative 04/22/2013 2:06 PM CDT [facility] MICROBIOLOGY Stool STOOL SPECIMEN / Unknown Collection / Unknown 04/19/2013 10:59 AM CDT 04/19/2013 12:42 PM CDT Narrative [facility] MICROBIOLOGY - 04/22/2013 2:06 PM CDT A single O and P exam may be insufficient to diagnose an intestinal parasite infection. Additional specimens are recommended if patient remains symptomatic. CAUTION: Cyclospora will not be detected by routine Ova and Parasite testing. A separate lab order, Parasitology stain by Modified Acid Fast, must be placed specifically for Cyclospora which will be sent to [facility]. Specimen must be collected in 10% formalin. CAUTION: Cyclospora will not be detected by routine Ova and Parasite testing. A separate lab order, Parasitology Stain by Modified Acid Fast, must be placed specifically for Cyclospora which will be sent to [facility]. Specimen must be collected in 10% formalin. Josiah Breen MD LAB - MICROBIOLOGY iVlma [place]ON Performing Organization Address City/[facility] Co de Phone Number [facility] [address] [facility] [address] [place] [address], [facility] * EGD (04/19/2013 10:40 AM [...] Loss: ? Estimated blood loss: none. [facility] 04/19/2013 10:4 0 AM CDT Narrative [facility] - 04/19/2013 11:06 AM CDT Procedure Note Josiah Breen MD - 04/19/2013 11:06 AM CDT Josiah Breen MD GI PROCEDURE ORDERAB LES [facility] * ENDOSCOPY, COLON, SCREENING (04/19/2013 10:40 [...] Loss: ? Estimated blood loss: none. [facility] 04/19/2013 10:4 0 AM CDT Narrative [facility] - 04/19/2013 11:09 AM CDT Procedure Note Josiah Breen MD - 04/19/2013 11:09 AM CDT Josiah Breen MD GI PROCEDURE ORDERAB LES [facility] * FOLATE RBC (04/03/2013 9:58 AM CDT) Folate Hemolysate 372.0 Not Estab. ng/mL [facility] ACCOUNT BILL Hematocrit 41.9 34.0 - 46.6 % [facility] ACCOUNT BILL Folate RBC 888 499 - 1,504 ng/mL [facility] ACCOUNT BILL Blood specimen (specimen) BLOOD SPECIMEN WITH EDTA / Unknown 04/03/2013 9:58 AM CDT 04/03/2013 1:06 PM CDT Narrative Resulting Agency Comment [facility] [address] ??Formerly [facility] [phone] Josiah Breen MD LAB - CHEMISTRY TIFFANIE [...] PM CDT Narrative Resulting Agency Comment [facility] [address] [place] [address] ??Formerly [facility] [phone] Josiah Breen MD LAB - SEROLOGY ORDER SHARON [facility] ACCOUNT BILL * VITAMIN B12 (04/03/2013 9:54 AM CDT) Vitamin B12 304 211 - 946 pg/mL [facility] ACCOUNT BILL Blood specimen (specimen) BLOOD SPECIMEN / Unknown 04/03/2013 9:54 AM CDT 04/03/2013 1:06 PM CDT Narrative Resulting Agency Comment [facility] [place] [address] ??Formerly [facility] [phone] Josiah Breen MD LAB - CHEMISTRY ORDGeo WILLS [facility] ACCOUNT BILL * IGA BLOOD (04/03/2013 9:54 AM CDT) IgA Quantitative 210 91 - 414 mg/dL [facility] ACCOUNT BILL Blood specimen (specimen) BLOOD SPECIMEN / Unknown 04/03/2013 9:54 AM CDT 04/03/2013 1:06 PM CDT Narrative Resulting Agency Comment [facility] [place] [address] ??Formerly [facility] [phone] Josiah Breen MD LAB - CHEMISTRY ORDGeo LOREEJESUS Performing Organization Address City/[facility]/ZIP Co de Phone Number [facility] [...] <0.015 <0.100 ng/mL 03/02/2013 9:11 PM CDT [facility] CK 93 35 - 232 U/L 03/02/2013 9:11 PM CDT [facility] CK-MB 0.8 0.0 - 5.0 ng/mL 03/02/2013 9:11 PM CDT [facility] CK Index % 0.9(L) 4.0 - 25.0 % 03/02/2013 9:11 PM CDT [facility] Blood specimen (specimen) BLOOD SPECIMEN / Unknown 03/02/2013 8:08 PM CDT 03/02/2013 8:55 PM CDT Yaniv Panjiva LAB - CHEMISTRY CypherWorXJESUS Performing Organization Address City/[facility]/ZIP Co de Phone Number [facility] [address] [place] [address] * AMYLASE BLOOD (03/02/2013 8:08 PM CDT) Only the most recent of2 resultswithin the time period is included. Pathologist [facility] Amylase 44 15 - 115 U/L 03/02/2013 9:32 PM CDT [facility] Blood specimen (specimen) BLOOD SPECIMEN / Unknown 03/02/2013 8:08 PM CDT 03/02/2013 8:55 PM CDT Yaniv KerrRoniSeekPanda LAB - CHEMISTRY Nongxiang NetworkGeo WILLS [facility] [address] [place] [address] * MAMMO SCREENING DIGITAL IMAGE BILAT (08/23/2011 7:59 AM MATERIAL CLERK) Anatomical Region Laterality Modality Breast Bilateral Mammography 08/23/2011 12:0 7 PM MATERIAL CLERK Narrative 08/23/2011 12:27 PM MATERIAL CLERK DIGITAL BILATERAL SCREENING MAMMOGRAMS WITH CAD CORRELATION [...] if suspicious findings are present clinically. An [employer] Facility Procedure Note [...] if suspicious findings are present clinically. [facility] [employer] Daja Orr MD MAMMO ORDERABLES * US ABDOMEN COMPLETE (08/02/2011 2:45 PM MATERIAL CLERK) Anatomical Region Laterality Modality Abdomen Ultrasound 08/02/2011 2:53 PM MATERIAL CLERK Impressions 08/02/2011 2:58 PM MATERIAL CLERK Unremarkable abdominal ultrasound. Narrative 08/02/2011 2:58 PM MATERIAL CLERK ULTRASOUND ABDOMEN COMPLETE INDICATION: Abdominal pain. FINDINGS: [...] unremarkable. IMPRESSION Unremarkable abdominal ultrasound. Cherelle Mason APRN-CLIENT ONBOARDING ANALYST US ORDERABLES * CULTURE URINE COMPREHENSIVE (PO REF LAB) (08/02/2011 1:56 PM MATERIAL CLERK) Pathologist [facility] Urine Culture Comprehensive Final report [facility] ACCOUNT BILL Result 1 [facility] ACCOUNT BILL Comment:No growth in 36 - 48 hours. URINE / Unknown 08/02/2011 1 :56 PM MATERIAL CLERK 08/02/2011 3:56 PM MATERIAL CLERK Narrative Resulting Agency Comment [facility] [address] ??Formerly [facility] [phone] Cherelle Mason APRN-CLIENT ONBOARDING ANALYST LAB - MICROBIOL OGY ORDERABLES [facility] ACCOUNT BILL * HELICOBACTER PYLORI ANTIBODIES (IGG,IGA,IGM) (PO REF LAB) (08/02/2011 1:56 PM MATERIAL CLERK) Helicobacter pylori Antibody IgG <0.9 0.0 - [...] BLOOD SPECIMEN / Unknown 08/02/2011 1:56 PM MATERIAL CLERK 08/02/2011 3:56 PM MATERIAL CLERK Narrative Resulting Agency Comment [facility] [address] ??[facility]ly [facility] [phone] Cherelle Mason MUSEUM SPECIALIST-CLIENT ONBOARDING ANALYST LAB - SEROLOGY ORDERABLES [facility] ACCOUNT BILL * URINALYSIS MICROSCOPIC ONLY (08/02/2011 1:56 PM MATERIAL CLERK) WBC UA 0-5 0 - 5 /hpf [...] (specimen) URINE / Unknown 08/02/2011 1:56 PM MATERIAL CLERK 08/02/2011 3:56 PM MATERIAL CLERK Narrative Resulting Agency Comment [facility] [address] ??[facility]ly [facility] [phone] Cherelle Mason MUSEUM SPECIALIST-CLIENT ONBOARDING ANALYST LAB - URINALYSI S ORDERABLES [facility] ACCOUNT BILL * IMAGING/RADIOLOGY/XRAY RESULTS ORDER (04/08/2011 2:10 PM CDT) Anatomical Region Laterality Modality Other Narrative Transcriptions Document, Scanned - 04/08/2011 2:10 PM CDT Scanned Document IMAGING * (ABNORMAL) HGB HCT PANEL (2011 5:47 AM CDT) Hemoglobin 9.9(DL) 12.0 - 16.0 gm/dl [facility] Hematocrit 29.9(DL) 36 - 47 % [facility] BLOOD SPECIMEN / Unknown 2011 5:47 AM CDT 2011 5:58 AM CDT Narrative [facility] - 2011 6:15 AM CDT Obtain 12-24 hours after delivery. 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 Biomedical Equipment Specialist sections are submitted as follows ?? A1 [...] Dictated by ?Pedro Carbajal M.D. CPT ?? [address] Long Wall Shear Operator ? NAZARIO LOCKETT Electronically Signed By ? PEDRO CARBAJAL MISCELLANEOUS SAMPLES / Unknown 04/03/2011 1:49 AM CDT 2011 8:55 AM CDT Historical Provider LAB - PATHOLOGY/C YTOLOGY ORDERABLES * SONOGRAM - COMPLETE (12/22/2010 2:43 PM CDT) Anatomical Region Laterality Modality Other 12/22/2010 2:43 PM CDT Narrative 12/23/2010 5:23 AM CDT ?[facility] ?[facility] ? TESTING CENTER ?FAX: ?? Pat. Name: ?ROMEL ÁNGELA Cooper. No: ?[id number] Study Date: ?? 12/22/2010 ??2:43pm , Age: ? 1985, 25 Pregnancies: ?? 1, Para 0000 LMP: ?08/06/2010 GA by LMP: ?19.7 weeks GA by US: ? 17.7 weeks GA Selected: ??17.6 weeks (From Known E) CHARLI: ?05/28/2011 Referring MD: JOSE ALBERTO MASSEY MD Outdoor Adventure Instructor: ??Mi Vernon RDMS Hist/Ind: ? Anatomy Screen [...] Signature> ??12/23/2010 05:23am Jose Alberto Massey MD [facility] ORDERABLES * GLUCOSE (07/23/2010 11:21 AM MATERIAL CLERK) Glucose 85 65 - 105 mg/dl [facility] BLOOD SPECIMEN / Unknown 07/23/2010 11:21 AM MATERIAL CLERK 07/23/2010 11:21 AM MATERIAL CLERK Willi Huff Jr., MD LAB - CHEMISTRY ORDERABLES Performing Organization Address [facility] de Phone Number [facility] [address] [place] [address] * IRON + TRANSFERRIN PANEL (07/23/2010 11:21 AM MATERIAL CLERK) Iron 139.4 50 - 170 ug/dl [facility] Transferrin 256.7 250 - 380 mg/dl [facility] TIBC Calculated 321 250 - 450 ug/dl [facility] Iron Saturation % 43 20 - 55 % [facility] BLOOD SPECIMEN / Unknown 07/23/2010 11:21 AM MATERIAL CLERK 07/23/2010 11:21 AM MATERIAL CLERK Willi Huff Jr., MD LAB - CHEMISTRY ORDERABLES Performing Organization Address [facility] de Phone Number [facility] [address] [place] [address] * HCG BLOOD QUALITATIVE (07/23/2010 11:21 AM MATERIAL CLERK) Pathologist [facility] HCG Qual Serum Negative SEE BELOW [facility] Comment: Normal, Negative ? Pos, Sensitivity ? 25 MIU/ML BLOOD SPECIMEN / Unknown 07/23/2010 11:21 AM MATERIAL CLERK 07/23/2010 11:21 AM MATERIAL CLERK Willi Huff Jr., MD LAB - CHEMISTRY ORDERABLES Performing Organization Address [facility] de Phone Number [facility] [address] [place] [address] * XR CONSULTATION (12/23/2009 8:00 AM CDT) [...] BRENNAN ? Released Date Time- 12/23/091611 ? Long Wall Shear Operator- DTC ? ADM- COVERT,ROBIN A ? ATT- [...] Releasing Awais BRENNAN Released Date Time- 12/23/091611 Long Wall Shear Operator- DTC ADM- COVERT,ROBIN Rahman ATT- COVERT,ROBIN Rahman REF- CON- PCP- SCP- Robin Su MD DIAGNOSTIC IMAGING O RDERABLES * CULTURE FUNGUS OTHER+FUNGUS SMEAR (04/07/2009 2:00 PM CDT) Smear SEE NOTE [facility] ([facility]) Comment: ??CULTURE, FUNGUS W/SMEAR NOT HAIR, SKIN, BLOOD ?MICRO NUMBER: ?[id number] ??TEST STATUS: ? FINAL ??SPECIMEN SOURCE: ?? VAGINAL/ANORECTAL ??SPECIMEN COMMENTS: ADEQUATE ??SMEAR: ? NO FUNGAL ELEMENTS SEEN. ??RESULT: ?NO FUNGAL GROWTH AT 4 WEEKS REPORT COMMENT: PREFERRED LAB:->[facility] Test Performed at: [facility] [place] [address] [employer] [place], [place] ??[address] VONNIE RIGGS MD 04/07/2009 2:00 PM CDT 04/07/2009 9:57 PM CDT Renuka GLYNN LAB - MICRO BIOLOGY ORDERABLES [facility] ([facility]) * PH FLUID - POCT (AMB) [facility] (08/14/1998 12:00 AM MATERIAL CLERK) pH Vaginal 4.0 [facility] Vaginal swab (specimen) 08/14/1998 Renuka GLYNN LAB - POINT OF CARE ORDERABLES Performing Organization Address [facility]/State/ZIP Co de Phone Number [facility] * WET PREP - POINT OF CARE (AMB) [facility] (08/14/1998 12:00 AM MATERIAL CLERK) pH Wet Prep 4.0 [facility] Yeast Wet Prep neg [facility] Trichomonas Wet Prep neg [facility] Bacteria Wet Prep neg [facility] Whiff Test neg [facility] Vaginal swab (specimen) 08/14/1998 Renuka Bear MUSEUM SPECIALIST-CLIENT ONBOARDING ANALYST LAB - POINT OF CARE ORDERABLES [facility] Care Teams Software Sales Representative Relationship Specialty Start Date End Date Jose Alberto Braxton MD [address] [facility] [place] [address] PCP - General Family Medicine 07/07/21
--- OUTSIDE RECORDS SUMMARY | 2024-07-30 16:03 | XMS_ITS | Encounter Summary ---
Author Organization [facility] Address [address] [facility] [place] [address] Care Team Providers Care Evp And Chief Operating Officer Name Role Phone Azar Braxton MD Primary Care Provider [phone] Reason for Referral * Cardiac (Routine) - Closed Specialty Diagnoses / Procedures Referred By Contac t Referred To Contact Cardiology Diagnoses Palpitations Procedures ECHO TRANSTHORACIC VA TTE W/DOPPLER, COMPLETE VA TTE W/O DOPPLER, COMPLETE Ruben Palumbo MD [address] [facility] [address] [place] [address] [address] Referral ID Status Reason Start Date Expiration Date Visits Re quested Visits Authorized [id number] Closed 11/07/2022 12/22/2022 1 1 F TALENT OFFICER Reason for Visit * Reason Comments Establish Care Abnormal Ekg * Evaluate & Treat - Closed Specialty Diagnoses / Procedures Referred By Contac t Referred To Contact Cardiology Diagnoses Palpitations Azar Braxton MD [address] [place] [address] [facility] [address] [place] [address] [address] [place] [address] Referral ID Status Reason Start Date Expiration Date V isits Requested Visits Authorized [id number] Closed Specialty Services Required 09/26/2022 09/26/2023 1 1 Encounter Details Date Type Department Care Team (Latest Contact Info) Description 10/12/2022 4:00 PM CHIEF TALENT OFFICER Office Visit [facility] [address] [place] [address] Ruben [...] file Gender Identity Female 08/19/2022 7:56 AM CHIEF TALENT OFFICER Sexual Orientation Not on file documented as of this encounter Last Filed Vital Signs Vital Sign Reading Time Taken Comments Blood Pressure 151/85 10/12/2022 3:52 PM CHIEF TALENT OFFICER Pulse 85 10/12/2022 3:52 PM CHIEF TALENT OFFICER Temperature - - Respiratory Rate - - Oxygen Saturation 96% 10/12/2022 3:52 PM CHIEF TALENT OFFICER Inhaled Oxygen Concentration - - Weight 63.7 kg (140 lb 6.4 oz) 10/12/2022 3:52 P M CHIEF TALENT OFFICER Height 154.9 cm (5' 1 ) 10/12/2022 3:52 PM CHIEF TALENT OFFICER Body Mass Index 26.53 10/12/2022 3:52 PM CHIEF TALENT OFFICER documented in this encounter Progress Notes * Ruben Palumbo MD - 10/12/2022 4:11 PM CST [facility] Heart [facility] Vascular New Patient Consultation Patient [...] 04/19/2013 ENDOSCOPY GI UPPER WITH BIOPSY ??? [place] Tooth Extraction Cannot display prior to admission medications because the patient has not been admitted in this contact. Allergies Allergen Reactions ??? Latex Itching Red and swollen ??? Reglan GI Discomfort and Palpitations Social History Socioeconomic History ??? Marital status: ??? Number of children: 1 Occupational History ??? Occupation: [employer] Employer: [employer] Comment: ER Tobacco Use ??? Smoking status: [...] results for input(s): TROPONIN in the last 31124 hours. No results for input(s): BNP, NTPROBNP in the last 35330 hours. Recent Labs Component Name 07/07/21 1119 [...] applicable. Ruben Palumbo MD 10/12/2022 4:12 PM [facility] Heart [facility] Vascular [facility] F TALENT OFFICER documented in this encounter Plan of Treatment Not on file documented as of this encounter Results * ECHO COMPLETE (11/11/2022 8:40 AM CDT) BSA 1.1839790 [id number] m2 [facility] CV FUJI PACS LV biplane EF 60 % [facility] CV FUJI PACS LV A2C EF 63 % [facility] CV [facility] I PACS LV A4C EF 60 % [facility] CV [facility] I PACS LVOT stroke vol 53.16 cm3 [facility] CV FUJI PACS LV stroke vol 2D teich 33.647 ml [facility] CV FUJI PACS LV stroke vol index A4C MOD 34 ml [facility] CV FUJI PACS LVIDd 3.63 3.5 - 6.0 cm [facility] CV FUJI PACS LVIDs 2.48 2.1 - 4.0 cm [facility] CV FUJI PACS IVSd 2D 0.805 cm [facility] CV [facility] I PACS LVPWd 0.84 cm [facility] CV [facility] I PACS Fractional Shortening 2D 32 28 - 44 % [facility] LV ESV BP 21 mL [facility] CV [facility] I PACS LV ESV index BP 12.6 mL/m2 [facility]SM CV [facility] PACS LV ESV A2C 23 mL SSM CV FU JI PACS LV EDV BP 52 mL SSM CV [facility] I PACS LV ESV A4C 18 mL SSM CV FU JI PACS LV EDV index BP 31.1 mL/m2 SSM CV [facility] PACS LV EDV A2C 48 mL SSM CV FU JI PACS LV EDV A4C 57 mL SSM CV FU JI PACS LV EDV A/L A4C 57.337 mL SSM C V [facility] PACS LVOT diam 1.8 cm SSM CV [facility] I PACS LVOT area 2.54 cm2 [facility]SM CV [facility] I PACS LV RWT 0.465 [facility]SM CV [facility] I PACS LV Flores A4C 7.11 cm SSM CV F U PACS LV Area Flores A2C 20.2 cm2 SSM CV [facility] PACS LV Area Flores A4C 21.9 cm2 SSM CV [facility] PACS MV E pk dwaine 89.3 cm/s SSM CV F U PACS MV A pk dwaine 88.4 cm/s SSM CV F U PACS MV E' lateral dwaine 16 cm/s SS M [facility] MV DT 169 ms SSM CV [facility] I PACS MV E' septal dwaine 10.5 cm/s [facility] LA vol BP 30 mL SSM CV [facility] I PACS LVOT pk dwaine 1.16 m/s SSM CV F UJI PACS LVOT mn dwaine [id number] cm/s SSM CV FUJI PACS LVOT mn [...] Palpitations documented in this encounter Care Teams Evp And Chief Operating Officer Relationship Specialty Start Date End Date Azar Barxton MD [address] [place] [address] PCP - General Family Medicine 07/07/21 documented as of this encounter
--- OUTSIDE RECORDS SUMMARY | 2024-07-30 16:03 | XMS_ITS | Encounter Summary ---
Author Organization [facility] Address [address] [place] [address] Care Team Providers Care Automotive Fuel Systems Converter Name Role Phone Molly Alvarado MD Primary Care Provider Encounter Details Date Type Department Care Team (Late st Contact Info) Description 03/13/2014 9:58 AM CDT - 03/13/2014 11:59 PM CDT Hospital Encounter [facility] - Radiology [address] [place] [address] Lizzy Nesbitt, AMBULANCE DRIVER PARAMEDIC-HEAD TELLER [address] [place] [address] Discharge Disposition: Home or Self Care Social History Tobacco Use Types Packs/Day Years Used Date Smoking Tobacco: Never Smokeless Tobacco: Never Alcohol Use Standard Drinks/Week Comments Yes 0 (1 standard drink = 0.6 oz pur e alcohol) social - rare Sex and Gender Information Value Date Recorded Sex Assigned at Not on file Gender Identity Female 08/19/2022 7:56 AM SKIMMER REVERBERATORY Sexual Orientation Not on file documented as [...] unspecified documented in this encounter Care Teams Automotive Fuel Systems Converter Relationship Specialty Start Date End Date Molly Alvarado MD PCP - General Family Medicine 12/05/11 08/25/15 documented as of this encounter
--- OUTSIDE RECORDS SUMMARY | 2024-07-30 16:03 | XMS_ITS | Encounter Summary ---
Author Organization [facility] Address [address] [place] [address] Care Team Providers Care Field Service Analyst Name Role Phone Molly Alvarado MD Primary Care Provider Encounter Details Date Type Department Care Team (Late st Contact Info) Description 11/08/2013 4:20 PM CDT - 11/08/2013 4:44 PM CDT Hospital Encounter [facility] [address] [place] [address] Tana Sosa, EQUINE [facility]ET-[facility] [address] [facility] [address] [address] Discharge Disposition: Home or Self Care Social History Tobacco Use Types Packs/Day Years Used Date Smoking Tobacco: Never Smokeless Tobacco: Never Alcohol Use Standard Drinks/Week Comments Yes 0 (1 standard drink = 0.6 oz pur e alcohol) social - rare Sex and Gender Information Value Date Recorded Sex Assigned at Not on file Gender Identity Female 08/19/2022 7:56 AM MARKING CLERK Sexual Orientation Not on file documented as [...] Instructions * Patient Instructions* Sheila Tana Granda, EQUINE VET-MANAGER [facility]GR[facility] - 11/08/2013 5:25 PM CDT Bacterial Pneumonia [...] turn orellana or blue. Copyright ?? 2012. [employer]. All rights reserved. Information is for End User's use only andmay not be sold, redistributed or otherwise used for commercial purposes. The above information is an corrective therapy aide only. It is not intended as [...] this encounter Progress Notes * Tana Sosa, KIMBERLY-MANAGER INTEGRITY - 11/08/2013 4:45 PM CDT Provider contact with the patient: 11/08/2013 16:[id number] [facility] BR[facility] History No chief complaint on file. Cough, Back Pain, Fever HPI 28 yo CF here for evaluation of cough, fever, mid-back pain only on left side, for the past 3-4 days. Reports temp was not taken prior to (was at work), after taking tylenol 1gram-99.4. 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 Fatigue, soreness-does not [...] History Procedure Date ??? section 04/03/2011 ??? [place] tooth extraction ??? 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 [...] pain. Neurological: Positive for headaches (associated with ritzb-pgfsfie-wkmumgmq with tylenol). Psychiatric/Behavioral: Negative. Physical Exam BP [...] 11/08/2013 4:48 PM CDT Tana Granda Sheila EQUINE VET-MANAGER [facility] - POI NT OF CARE ORDERABLES [facility] POCT [facility] [address] [place] [address] documented in this encounter Visit Diagnoses Diagnosis [...] mg documented in this encounter Care Teams Field Service Analyst Relationship Specialty Start Date End Date Molly Alvarado MD PCP - General Family Medicine 12/05/11 08/25/15 documented as of this encounter
--- OUTSIDE RECORDS SUMMARY | 2024-07-30 16:03 | XMS_ITS | Encounter Summary ---
Author Organization [facility] Address [address] [place] [address] Care Team Providers Care Polisher Brass Name Role Phone Azar Braxton MD Primary Care Provider [phone] Encounter Details Date Type Department Care Team (Late st Contact Info) Description 10/07/2022 Orders Only [facility] - Family Medicine [facility] [address] [address] Molly Angeles, REINFORCING STEEL ERECTOR-CENTRAL SCHEDULER [address] [place] [address] Palpitations Social History Tobacco Use Types Packs/Day Years Used Date Smoking Tobacco: Never Smokeless Tobacco: Never Alcohol Use Standard Drinks/Week Comments Yes 0 (1 standard drink = 0.6 oz pur e alcohol) social - rare PHQ-2 Answer Date Recorded PHQ2 TOTAL SCORE 0 08/19/2022 Sex and Gender Information Value Date Recorded Sex Assigned at Not on file Gender Identity Female 08/19/2022 7:56 AM HOTEL SERVER Sexual Orientation Not on file documented as of this encounter Plan of Treatment Not on file documented as of this encounter Visit Diagnoses Diagnosis Palpitations documented in this encounter Care Teams Polisher Brass Relationship Specialty Start Date End Date Azar Braxton MD [facility] [place] [address] PCP - General Family Medicine 07/07/21 documented as of this encounter
--- OUTSIDE RECORDS SUMMARY | 2024-07-30 16:03 | XMS_ITS | Encounter Summary ---
Author Organization [facility] Address [address] [facility] [place] [address] Care Team Providers Care Corrosion Technician Name Role Phone Azar Braxton MD Primary Care Provider [phone] Reason for Visit * Reason Onset Date Comments Scheduling 04/20/2023 Encounter Details Date Type Department Care Team (Late st Contact Info) Description 04/20/2023 Telephone [facility] Heart & Vascular Care [address] [place] [address] Ruben Palumbo MD [address] [facility] [address] [place] [address] Scheduling Social History Tobacco Use [...] file Gender Identity Female 08/19/2022 7:56 AM LITIGATION SERVICES MANAGER Sexual Orientation Not on file documented [...] on filedocumented in this encounter Care Teams Corrosion Technician Relationship Specialty Start Date End Date Azar Braxton MD [address] [address] PCP - General Family Medicine 07/07/21 documented as of this encounter
--- OUTSIDE RECORDS SUMMARY | 2024-07-30 16:03 | XMS_ITS | Encounter Summary ---
Author Organization [facility] Address [address] [place] [address] Care Team Providers Care Reel Winder Name Role Phone Azar Braxton MD Primary Care Provider [phone] Azar Braxton MD Unavailable [phone] Reason for Visit * Radiology Services (Routine) - Closed Specialty Diagnoses / Procedures Referred By María Elena rand Referred To Contact Cardiology Procedures ID ECG/REVIEW INTERPRET ONLY [facility] Cardiology [address] [place] [address] [facility] Cardiology [address] [place] [address] Referral ID Status Reason Start Date Expiration Date Visits Re quested Visits Authorized [id number] Closed 08/22/2022 08/22/2023 1 1 Encounter Details Date Type Department Care Team (Latest Contact Info) Description 08/22/2022 2:00 PM CUTTER AND PRESSER - 08/22/2022 11:59 PM CUTTER AND PRESSER Hospital Encounter [facility] Heart [facility] Vascular Care [address] [place] [address] Azar Braxton MD [address] [place] [address] Discharge Disposition: Home or Self Care Social [...] file Gender Identity Female 08/19/2022 7:56 AM CUTTER AND PRESSER Sexual Orientation Not on file COVID-19 Exposure Response Date Recorded In the last 10 days, have yo u been in contact with someone who was confirmed or suspected to have Coronavirus/COVID-19? No / Unsure 08/19/2022 3:17 PM CUTTER AND PRESSER documented as of this encounter Medications at [...] 11:59 PM CSTAssociated Order(s): EVENT MONITOR [facility] Event Monitor Report PATIENT NAME: CATA IBRAHIM MR#: [id number] AGE: 37 CSN: [id number] : 1985 DATE OF ADMISSION: 08/22/2022 DATE [...] DO LEONA DICTATED FOR: SMW/MODL JOB ID: [id number] Cardiac Catheterization Report ER AND PRESSER documented in this encounter Plan of Treatment Not on file documented as of this encounter Procedures Procedure Name Priority Date/Time Associated Diagnosis Comments EVENT MONITOR Routine 08/22/2022 12:00 PM CUTTER AND PRESSER Palpitations documented in this encounter Results * EVENT MONITOR (08/22/2022 12:00 PM CUTTER AND PRESSER) 08/22/2022 12:0 0 PM CUTTER AND PRESSER Narrative Procedure Note Molly Delgadillo DO - 08/22/2022 11:59 PM CST [facility] Event Monitor Report PATIENT NAME: CATA IBRAHIM MR#: [id number] AGE: 37 CSN: [id number] : 1985 DATE OF ADMISSION: 08/22/2022 DATE [...] DELGADILLO DO DICTATED FOR: TRAVIS/TREY JOB ID: [id number] Cardiac Catheterization Report Azar Braxton MD CARDIAC SERVICES ORD ERABLES Performing Organization Address City/State/[place]UST Co de Phone Number [facility] documented in this encounter Visit Diagnoses Diagnosis Palpitations- Primary documented in this encounter Care Teams Reel Winder Relationship Specialty Start Date End Date Azar Braxton MD [address] [address] PCP - General Family Medicine 07/07/21 Azar Braxton MD [address] [address] PCP - Attributed-[employer] Commercial STL 11/12/21 08/31/22 documented as of this encounter
--- OUTSIDE RECORDS SUMMARY | 2024-07-30 16:03 | XMS_ITS | Encounter Summary ---
Author Organization [facility] Address [address] [place] [address] Care Team Providers Care Management Intern Name Role Phone Avery Hidalgo DO Primary Care Provider [phone] Reason for Visit * Reason Onset Date Comments Appointment 03/24/2020 Encounter Details Date Type Department Care Team (Late st Contact Info) Description 03/24/2020 Telephone [facility] - GI [address], [address] [place] [address] Shira Sigala APRN-CNP [address] [facility] [address] [place] [address] Appointment Social History Tobacco Use Types Packs/Day Years Used Date Smoking Tobacco: Never Smokeless Tobacco: Never Alcohol Use Standard Drinks/Week Comments Yes 0 (1 standard drink = 0.6 oz pur e alcohol) social - rare Sex and Gender Information Value Date Recorded Sex Assigned at Not on file Gender Identity Female 08/19/2022 7:56 AM HEDIS REVIEW NURSE Sexual Orientation Not on file documented as [...] on filedocumented in this encounter Care Teams Management Intern Relationship Specialty Start Date End Date Avery Hidalgo DO PCP - General Family Medicine 08/26/15 03/25/20 documented as of this encounter
--- OUTSIDE RECORDS SUMMARY | 2024-07-30 16:03 | XMS_ITS | Encounter Summary ---
Author Organization [facility] Address [address] [place] [address] Care Team Providers Care Leather Sprayer Name Role Phone Molly Alvarado MD Primary Care Provider Reason for Visit * Reason Comments Sore Throat x2 days, slight prod uctive cough, yellow mucus (very minimal). Ear Problem x2 weeks, left ear f eels slight pain, like she is in a tunnel Encounter Details Date Type Department Care Team (Late st Contact Info) Description 10/14/2014 2:30 PM INNOVATION MANAGER Office Visit [facility] - Family Medicine [address] [place] [address] [id number] Jeremie Kolb MD [address] [place] [address] [address] [place] [id number] Sore throat (Primary Dx); Bronchitis, acute Social History Tobacco Use Types Packs/Day Years Used Date Smoking Tobacco: Never Smokeless Tobacco: Never Alcohol Use Standard Drinks/Week Comments Yes 0 (1 standard drink = 0.6 oz pur e alcohol) social - rare Sex and Gender Information Value Date Recorded Sex Assigned at Not on file Gender Identity Female 08/19/2022 7:56 AM INNOVATION MANAGER Sexual Orientation Not on file documented as of this encounter Last Filed Vital Signs Vital Sign Reading Time Taken Comments Blood Pressure 106/78 10/14/2014 3:24 PM INNOVATION MANAGER Pulse 100 10/14/2014 3:24 PM INNOVATION MANAGER Temperature 37.1 ??C (98.8 ??F) 10/14/2014 3:24 PM CS T Respiratory Rate 20 10/14/2014 3:24 PM INNOVATION MANAGER Oxygen Saturation 99% 10/14/2014 3:24 PM INNOVATION MANAGER Inhaled Oxygen Concentration - - Weight 40.1 kg (88 lb 6.4 oz) 10/14/2014 3:24 P M INNOVATION MANAGER Height 154.9 cm (5' 0.98 ) 10/14/2014 3:24 PM CS T Body Mass Index 16.71 10/14/2014 3:24 PM INNOVATION MANAGER documented in this encounter Patient Instructions * Patient Instructions* Jeremie Kolb MD - 10/14/2014 3:56 PM INNOVATION MANAGER Gargle with diluted listerine at least 3x per day Consider marlyn vapor rub to chest and back Consider a humidifier Consider vitamin c 500mg po q day Hydration with water and gatorade---aim for 2.5 to 3 liters per day Consider tylenol over the counter 500mg po q 6 hrs as need for pain and temp----no more than 3000mgin 24 hrs VATION MANAGER documented in this encounter Progress Notes * Jeremie Kolb MD - 10/16/2014 8:03 AM CSTQuick Note: Positive pt was already given azithromycin 10/14/14 VATION MANAGER * Jeremie Kolb MD - 10/14/2014 3:41 [...] Education: N/A Occupational History ??? [employer] Social History Main Topics [...] and temp----no more than 3000mgin 24 hrs VATION MANAGER documented in this encounter Plan of Treatment Not on file documented as of this encounter Procedures Procedure Name Priority Date/Time Associated Diagnosis Comments CULTURE STREP GROUP A Routine 10/14/2014 3:51 PM INNOVATION MANAGER Sore throat STREP A SCREEN - POINT OF CARE (AMB) Routine 10/14/2014 3:50 PM INNOVATION MANAGER Sore throat documented in this encounter Results * (ABNORMAL) CULTURE STREP GROUP A (10/14/2014 3:51 PM INNOVATION MANAGER) Beta-Strep Culture, Group A Only (A) [facility] [...] OF NECK) / Unknown 10/14/2014 3:51 PM INNOVATION MANAGER 10/14/2014 9:09 PM INNOVATION MANAGER Narrative Resulting Agency Comment [facility] [address] [facility] [id number] Jeremie Kolb MD LAB - MICROBIOLOGY O RDERABLES [facility] ACCOUNT BILL * STREP A SCREEN - POINT OF CARE (AMB) (10/14/2014 3:50 PM INNOVATION MANAGER) Strep A Rapid POCT Negative Negative Strep A Internal Control NEGATIVE - POSITIVE Throat swab (specimen) NASOPHARYNGEAL SWAB / Unknown 10/14/2014 3:50 PM INNOVATION MANAGER Jeremie Kolb MD LAB - POINT OF CARE ORDERABLES documented in this encounter Visit Diagnoses Diagnosis Sore throat- Primary Acute pharyngitis Bronchitis, acute Acute bronchitis documented in this encounter Care Teams Leather Sprayer Relationship Specialty Start Date End Date Molly Alvarado MD PCP - General Family Medicine 12/05/11 08/25/15 documented as of this encounter
--- OUTSIDE RECORDS SUMMARY | 2024-07-30 16:03 | XMS_ITS | Encounter Summary ---
Author Organization [facility] Address [address] [facility] [place] [address] Care Team Providers Care Stone Fabricator Name Role Phone Azar Braxton MD Primary Care Provider [phone] Azar Braxton MD Unavailable [phone] Reason for Visit * Reason Onset Date Comments Palpitations 03/30/2022 Encounter Details Date Type Department Care Team (Late st Contact Info) Description 03/30/2022 Telephone [facility] - Family Medicine [address] [facility] [place] [address] Azar Braxton MD [address] [place] [address] Palpitations Social History Tobacco Use Types [...] file Gender Identity Female 08/19/2022 7:56 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
--- OUTSIDE RECORDS SUMMARY | 2024-07-30 16:03 | XMS_ITS | Encounter Summary ---
Author Organization [facility] Address [address] [place] [address] Care Team Providers Care Client Support Professional Name Role Phone Azar Braxton MD Primary Care Provider [phone] Azar Braxton MD Unavailable [phone] Encounter Details Date Type Department Care Team [...] file Gender Identity Female 08/19/2022 7:56 AM AUTO SERVICER Sexual Orientation Not on file COVID-19 Exposure Response Date Recorded In the last 10 days, have yo u been in contact with someone who was confirmed or suspected to have Coronavirus/COVID-19? No / Unsure 08/18/2022 10:37 AM AUTO SERVICER documented as of this encounter Plan of Treatment Not on file documented as of this encounter Visit Diagnoses Not on filedocumented in this encounter Care Teams Client Support Professional Relationship Specialty Start Date End Date Azar Braxton MD [address] [address] PCP - General Family Medicine 07/07/21 Azar Braxton MD [address] [address] PCP - Attributed-[employer] Commercial STL 11/12/21 08/31/22 documented as of this encounter
--- OUTSIDE RECORDS SUMMARY | 2024-07-30 16:03 | XMS_ITS | Encounter Summary ---
Author Organization [facility] Address [address] [facility] [place] [address] Care Team Providers Care Group Sales Representative Name Role Phone Avery Hidalgo DO Primary Care Provider Reason for Visit * Reason Onset Date Comments UTI 05/29/2018 Encounter Details Date Type Department Care Team (Late st Contact Info) Description 05/29/2018 Telephone [facility] Medical [facility] - Internal Medicine [address] [place] [address] Avery Hidalgo DO [address] [place] [address] UTI Social History Tobacco Use Types Packs/Day Years Used Date Smoking Tobacco: Never Smokeless Tobacco: Never Alcohol Use Standard Drinks/Week Comments Yes 0 (1 standard drink = 0.6 oz pur e alcohol) social - rare Sex and Gender Information Value Date Recorded Sex Assigned at Not on file Gender Identity Female 08/19/2022 7:56 AM COLLET GLUER Sexual Orientation Not on file documented as [...] on filedocumented in this encounter Care Teams Group Sales Representative Relationship Specialty Start Date End Date Avery Hidalgo DO PCP - General Family Medicine 08/26/15 03/25/20 documented as of this encounter
--- OUTSIDE RECORDS SUMMARY | 2024-07-30 16:03 | XMS_ITS | Encounter Summary ---
Author Organization [facility] Address [address] [place] [address] Care Team Providers Care Occupational Therapy Assistant Name Role Phone Avery Hidalgo DO Primary Care Provider [phone] Reason for Visit * Reason Comments Follow-up 4 M Encounter Details Date Type Department Care Team (Late st Contact Info) Description 12/08/2015 10:30 AM CDT Office Visit [facility] Medical 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 No medication concerns. allergic rhinitis. Kuiw-ldw-djnyrsi meds without affect has been using Claritin [...] pollen documented in this encounter Care Teams Occupational Therapy Assistant Relationship Specialty Start Date End Date Avery Hidalgo DO PCP - General Family Medicine 08/26/15 03/25/20 documented as of this encounter
--- OUTSIDE RECORDS SUMMARY | 2024-07-30 16:03 | XMS_ITS | Encounter Summary ---
Author Organization [facility] Address [address] [place] [address] Care Team Providers Care Communications Engineer Name Role Phone Avery Hidalgo DO Primary Care Provider [phone] Reason for Visit * Reason Comments Pain Head Began today Encounter Details Date Type Department Care Team (Late st Contact Info) Description 04/20/2019 11:42 AM CDT - 04/20/2019 4:54 PM CDT Emergency ER at [facility] [address] [place] [address] Acute nonintractable headache, unspecified headache type; Migraine [...] file Gender Identity Female 08/19/2022 7:56 AM 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 * MIGRAINE HEADACHE (AFTERCARE(R) INSTRUCTIONS(ER/ED)) ([place]) documented in this encounter Medications at Time [...] 04/20/19 1227 First Provider Evaluation ECTOR KOLB [id number] [facility] EMERGENCY DEPARTMENT History Chief Complaint Patient presents [...] 04/19/2013 ENDOSCOPY GI UPPER WITH BIOPSY ??? Yantis Tooth Extraction Family History Problem Relation Age [...] History ??? Occupation: [employer] Employer: [employer] Comment: ER Social Needs ??? [...] file Gets together: Not on file Attends yazidi service: Not on file Active member of [...] Info Avery Hidalgo DO [address] [facility] [address] [facility] Emergency Department As needed, If symptoms worsen [address] [facility] [phone] User Date/Time Ector Kolb PA-C Sat Apr 20, 2019 4:23 PM documented in this encounter Plan of Treatment Not on file documented as of this encounter Procedures Procedure Name Priority Date/Time Associated Diagnosis Comments PATHOLOGY/CYTOLOGY REPORT ORDER 08/23/2019 8:[address] HEAD WO CONTRAST STAT 04/20/2019 2 [...] * PATHOLOGY/CYTOLOGY REPORT ORDER (08/23/2019 8:52 PM CLAY WORKER) Narrative 08/23/2019 8:52 PM CLAY WORKER Ordered by an unspecified provider. Scanned Document [...] Urine Negative Negative 04/20/2019 1:10 PM CDT [facility] Urine URINE / Unknown 04/20/2019 1 :05 PM CDT 04/20/2019 1:10 PM CDT Provider Unknown LAB - POINT OF CARE ORDERABLES Performing Organization Address City/[facility]/ZIP Co de Phone Number [facility] [address] [place], [place] [phone] * HCG URINE QUAL POCT NOTIFICATION (04/20/2019 12:58 PM CDT) Comment Notification Label Only - See Separate Report 04/20/2019 2:00 PM CDT [facility] Urine URINE / Unknown 04/20/2019 1 2:58 PM CDT 04/20/2019 12:58 PM CDT Ector Kolb PA-C LAB - URINALYSIS O RDERABLES Performing Organization Address City/[facility]/ZIP Co de Phone Number [facility] [address] [place] [id number] * (ABNORMAL) BASIC METABOLIC PANEL (CALCIUM TOTAL) (04/20/2019 12:54 PM CDT) Glucose 112(H) 74 - 106 mg/dL 04/20/2019 1:24 PM CDT [facility] Sodium 136 136 - 145 mmol/L 04/20/2019 1:24 PM CDT [facility] Potassium 3.6 3.5 - 5.1 mmol/L 04/20/2019 1:24 PM CDT [facility] Chloride 100 98 - 107 mmol/L 04/20/2019 1:24 PM CDT [facility] CO2 23 23 - 31 mmol/L 04/20/2019 1:24 PM CDT [facility] Calcium 9.0 8.4 - 10.2 mg/dL 04/20/2019 1:24 PM CDT [facility] Anion Gap 13 8 - 16 mmol/L 04/20/2019 1:24 PM CDT [facility] BUN 15 7 - 18.7 mg/dL 04/20/2019 1:24 PM CDT [facility] Creatinine 0.92 0.55 - 1.02 mg/dL 04/20/2019 1:24 PM CDT [facility] eGFR by MDRD >60 >60 mL/min/1.7 3m2 04/20/2019 1:24 PM CDT [facility] eGFR by MDRD >60 >60 mL/min/1.7 3m2 04/20/2019 1:24 PM T [facility] Blood BLOOD SPECIMEN / Unknown Venipuncture / Unknown 04/20/2019 12:54 PM CDT 04/20/2019 1:05 PM CDT Ector Kolb PA-C LAB - CHEMISTRY OR DERABLES [facility] [address] [address] * CBC W AUTO DIFFERENTIAL (04/20/2019 12:54 PM CDT) WBC 10.1 4.4 - 10.7 x10E9/L 04/20/2019 1:07 PM CDT [facility] WBC Corrected 04/20/2019 1:07 PM CDT [facility] RBC 4.83 3.80 - 5.20 x10E12/L 04/20/2019 1:07 PM CDT [facility] Hemoglobin 14.0 12.0 - 15.6 gm/dL 04/20/2019 1:07 PM [facility] Hematocrit 41.8 35.9 - 45.5 % 04/20/2019 1:07 PM [facility] MCV 86.5 80.7 - 98.3 fl 04/20/2019 1:07 PM [facility] MCH 29.0 26.7 - 34.0 pg 04/20/2019 1:07 PM [facility] MCHC 33.5 30.8 - 35.9 gm/dL 04/20/2019 1:07 PM [facility] Platelet Count 400 153 - 416 x10E9/L 04/20/2019 1:07 PM [facility] RDW-CV 12.8 12.1 - 14.9 % 04/20/2019 1:07 PM [facility] MPV 9.7 9.4 - 12.9 fl 04/20/2019 1:07 PM [facility] Neutrophils % 52.1 44.0 - 73.0 % 04/20/2019 1:07 PM [facility] Lymphocytes % 35.9 20.0 - 43.0 % 04/20/2019 1:07 PM [facility] Monocytes % 7.3 5.0 - 13.0 % 04/20/2019 1:07 PM [facility] Eosinophils % 4.0 0.0 - 6.0 % 04/20/2019 1:07 PM [facility] Basophils % 0.5 0.0 - 2.0 % 04/20/2019 1:07 PM [facility] Immature Granulocytes 0.2 0 - 1 % 04/20/2019 1:07 PM [facility] Neutrophil Absolute 5.26 2.01 - 7.14 x10E9/L 04/20/2019 1:07 PM [facility] Lymphocytes Absolute 3.62 1.07 - 3.94 x10E9/L 04/20/2019 1:07 PM [facility] Monocytes Absolute 0.74 0.26 - 1.07 x10E9/L 04/20/2019 1:07 PM [facility] Eosinophils Absolute 0.40 0 - 0.47 x10E9/L 04/20/2019 1:07 PM CDT [facility] Basophils Absolute 0.05 0 - 0.08 x10E9/L 04/20/2019 1:07 PM CDT [facility] Immature Granulocytes Absolute 0.02 0.00 - 0.06 x10E9/L 04/20/2019 1:07 PM CDT [facility] nRBC Auto 0 /100 WBC 04/20/2019 1:07 PM CDT [facility] Blood BLOOD SPECIMEN / Unknown Venipuncture / Unknown 04/20/2019 12:54 PM CDT 04/20/2019 1:05 PM CDT Ector Kolb PA-C LAB - HEMATOLOGY O RDERABLES [facility] [address] [address] documented in this encounter Visit Diagnoses Diagnosis [...] RN) documented in this encounter Care Teams Communications Engineer Relationship Specialty Start Date End Date Avery Hidalgo DO PCP - General Family Medicine 08/26/15 03/25/20 documented as of this encounter
--- OUTSIDE RECORDS SUMMARY | 2024-07-30 16:03 | XMS_ITS | Encounter Summary ---
Author Organization [facility] Address [address] [facility] [place] [address] Care Team Providers Care Academic Support Specialist Name Role Phone Azar Braxton MD Primary Care Provider Reason for Referral * Cardiac (Routine) - Closed Specialty Diagnoses / Procedures Referred By Contac t Referred To Contact Cardiology Diagnoses Palpitations Procedures ECHO TRANSTHORACIC KS TTE W/DOPPLER, COMPLETE KS TTE W/O DOPPLER, Ruben Guzmán MD [address] [facility] [address] [place] [address] [address] Referral ID Status Reason Start Date Expiration Date Visits Re quested Visits Authorized [id number] Closed 11/07/2022 12/22/2022 1 1 Reason for Visit * Cardiac (Routine) - Closed Specialty Diagnoses / Procedures [facility] Referred To Contact Cardiology Diagnoses Palpitations Procedures ECHO TRANSTHORACIC KS TTE W/DOPPLER, COMPLETE [place] TTE W/O DOPPLER, Ruben Guzmán MD [address] [place] [address] [address] Referral ID Status Reason Start Date Expiration Date Visits Re quested Visits Authorized [id number] Closed 11/07/2022 12/22/2022 1 1 Encounter Details Date Type Department Care Team (Latest Contact Info) Description 11/11/2022 7:53 AM CDT - 11/11/2022 11:59 PM CDT Hospital Encounter [facility] Health Heart & Vascular Care [address] [place] [address] Ruben Palumbo MD [address] [place] [phone] Discharge Disposition: Home or Self Care Social [...] file Gender Identity Female 08/19/2022 7:56 AM PROJECT ADMIN Sexual Orientation Not on file documented as [...] ECHO COMPLETE (11/11/2022 8:40 AM CDT) BSA [id number] m2 [facility] CV FUJI PACS LV biplane [...] CV F UJI PACS LVOT mn dwaine [id number] cm/s [facility] CV FUJI PACS LVOT mn [...] Palpitations documented in this encounter Care Teams Academic Support Specialist Relationship Specialty Start Date End Date Azar Braxton MD [address] [facility] [place] [address] PCP - General Family Medicine 07/07/21 documented as of this encounter
--- OUTSIDE RECORDS SUMMARY | 2024-07-30 16:03 | XMS_ITS | Encounter Summary ---
Author Organization [facility] Address [address] [facility] [place] [address] Care Team Providers Care Atg Java Developer Name Role Phone Molly Alvarado MD Primary Care Provider Reason for Visit * Reason Comments Anxiety Pain Back Encounter Details Date Type Department Care Team (Late st Contact Info) Description 03/13/2014 9:00 AM CDT Office Visit [facility] Medical [facility] - Family Medicine [address] [place] [address] [place] [address] Lizzy Nesbitt, RENTAL BOATS CARETAKER-PHARMACY INTAKE COORDINATOR [address] [facility] [address] [place] [address] Pneumonia (Primary Dx); Back pain; Anxiety attack Social History Tobacco Use Types Packs/Day Years Used Date Smoking Tobacco: Never Smokeless Tobacco: Never Alcohol Use Standard Drinks/Week Comments Yes 0 (1 standard drink = 0.6 oz pur e alcohol) social - rare Sex and Gender Information Value Date Recorded Sex Assigned at Not on file Gender Identity Female 08/19/2022 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 Anxiety Disorders Association of [place] (ADAA) [address] [place] [address], [address] [place] [address] Phone: Web Address: http://www.adaa.org ?? National [employer] of Mental Health ([facility]), Public Information & Communication Branch [address] [place] [address], [address], [facility] [address] [place] [address] Phone: Phone: Web Address: http://www.[facility].nih.gov/ When should I contact my caregiver? [...] right to refuse treatment. Copyright ?? 2012. [employer]. All rights reserved. Information is for End User's use only andmay not be sold, redistributed or otherwise used for commercial purposes. The above information is an nurse's aides teacher only. It is not intended as medical [...] ?? Anxiety Disorders Association of [place] (ADAA) [address] [place] [address], [address] [place] [address] Phone: Web Address: http://www.adaa.org ?? National [employer] of Mental Health ([facility]), Public Information & Communication Branch [facility] [place] [facility] [place], [address], [facility] [address] [place] [address] Phone: Phone: Web Address: http://www.[facility].gov/ When should I contact my caregiver? Contact [...] right to refuse treatment. Copyright ?? 2011. [employer]. All rights reserved. Information is for End User's use only andmay not be sold, redistributed or otherwise used for commercial purposes. The above information is an nurse's aides teacher only. It is not intended as medical [...] on 03/13/2014 11:07 AM Lizzy D Laz RENTAL BOATS CARETAKER-PHARMACY INTAKE COORDINATOR DIAGNOSTIC SUJATA GING ORDERABLES documented in this encounter Visit Diagnoses Diagnosis Pneumonia- Primary Pneumonia, organism unspecified Back pain Backache, unspecified Anxiety attack Panic disorder without agoraphobia Pneumonia Pneumonia, organism unspecified Back pain Backache, unspecified documented in this encounter Care Teams Atg Java Developer Relationship Specialty Start Date End Date Molly Alvarado MD PCP - General Family Medicine 12/05/11 08/25/15 documented as of this encounter
--- OUTSIDE RECORDS SUMMARY | 2024-07-30 16:03 | XMS_ITS | Encounter Summary ---
Author Organization [facility] Address [address] [facility] [place] [address] Care Team Providers Care Zipper Cutter Name Role Phone Azar Braxton MD Primary Care Provider [phone] Reason for Visit * Reason Comments Refill Request Encounter Details Date Type Department Care Team (Late st Contact Info) Description 10/12/2022 Refill [facility] Heart & Vascular Care [address] [facility] [address] [place] [address] Ruben Palumbo MD [address] [place] [address] Refill Request Social History Tobacco Use [...] file Gender Identity Female 08/19/2022 7:56 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 Pt is requesting 90 day supply SHER AND SANDER documented in this encounter Plan of Treatment Not on file documented as of this encounter Visit Diagnoses Not on filedocumented in this encounter Care Teams Zipper Cutter Relationship Specialty Start Date End Date Azar Braxton MD [address] [facility] [place] [address] PCP - General Family Medicine 07/07/21 documented as of this encounter
--- OUTSIDE RECORDS SUMMARY | 2024-07-30 16:03 | XMS_ITS | Encounter Summary ---
Author Organization [facility] Address [address] [place] [address] Care Team Providers Care Road Builder Name Role Phone Avery Hidalgo DO Primary Care Provider [phone] Reason for Visit * Reason Comments Follow-up 6 MO Encounter Details Date Type Department Care Team (Late st Contact Info) Description 01/04/2017 2:30 PM CDT Office Visit [facility] Medical [facility] - Internal Medicine [address] [place] [address] Avery Hidalgo DO [address] [place], [place] [id number] Seasonal allergic rhinitis due to pollen (Primary [...] file Gender Identity Female 08/19/2022 7:56 AM OB NURSE Sexual Orientation Not on file documented [...] Some worsening symptoms with clear runny nose ldzh-smj-mhlbgnz Claritin without relief Other concerns: itchy dry patch to anterior chest has had signs and symptoms for months tried multiple blgq-eik-ublzmlx meds without relief. Compliance and Risk Factor [...] D deficiency has been defined by the [place] of [employer] and an Endocrine Society practice guideline as a level of serum 25-OH vitamin D less than 20 ng/mL (1,2). The Endocrine Society went on to further define vitamin D insufficiency as a level between 21 and 29 ng/mL (2). 1. IOM ([place] of [employer]). 2010. Dietary reference ?? intakes for calcium and D. [place]: The ?? National [employer] Press. 2. Brooke ABREU, Annette PAYNE, Clarice MORGAN, et al. ?? Evaluation, treatment, and prevention of vitamin D ?? deficiency: an Endocrine Society clinical practice ?? guideline. JCEM. 2010; 96(7):1911-30. FASTING Blood BLOOD SPECIMEN / Unknown 03/29/2017 11:02 AM CDT 03/29/2017 Narrative Resulting Agency Comment [facility] [address] [facility] [id number] Avery Hidalgo DO LAB - CHEMISTRY TIFFANIE WILLS Performing Organization Address City/[facility] Co de Phone Number [facility] ACCOUNT BILL [address] [place] [address] * TSH (03/29/2017 11:02 AM CDT) TSH 1.430 0.450 - 4.500 uIU/mL [facility] ACCOUNT BILL Comment:FASTING Blood BLOOD SPECIMEN / Unknown 03/29/2017 11:02 AM CDT 03/29/2017 Narrative Resulting Agency Comment [facility] [address] ??[facility] [id number] Avery Hidalgo DO LAB - CHEMISTRY TIFFANIE WILLS [facility] ACCOUNT BILL [address] [place] [address] * COMPREHENSIVE METABOLIC PANEL (03/29/2017 11:02 AM [...] CDT 03/29/2017 Narrative Resulting Agency Comment [facility] [address] ??[facility] [id number] Avery Hidalgo DO LAB - CHEMISTRY ORDE JOHANN Performing Organization Address City/[facility]/ZIP Co de Phone Number [facility] ACCOUNT BILL [address] [place] [address] * CBC W AUTO DIFFERENTIAL (03/29/2017 11:02 [...] CDT 03/29/2017 Narrative Resulting Agency Comment [facility] [address] ??[facility] [id number] Avery Hidalgo DO LAB - HEMATOLOGY ORD ERABLES Performing Organization Address City/[facility] Co de Phone Number [facility] ACCOUNT BILL [address] [place] [address] * (ABNORMAL) LIPID PROFILE (03/29/2017 11:02 AM [...] CDT 03/29/2017 Narrative Resulting Agency Comment [facility] [address] ??[facility] [id number] Avery Hidalgo DO LAB - CHEMISTRY TIFFANIE WILLS Performing Organization Address [facility] de Phone Number [facility] ACCOUNT BILL [address] [place] [address] documented in this encounter Visit Diagnoses Diagnosis Seasonal allergic rhinitis due to pollen- Primary Anxiety and depression Dysthymic disorder Tinea versicolor Pityriasis versicolor Vitamin D deficiency disease Unspecified vitamin D deficiency documented in this encounter Care Teams Road Builder Relationship Specialty Start Date End Date Avery Hidalgo DO PCP - General Family Medicine 08/26/15 03/25/20 documented as of this encounter
--- OUTSIDE RECORDS SUMMARY | 2024-07-30 16:03 | XMS_ITS | Encounter Summary ---
Author Organization [facility] Address [address] [facility] [place] [address] Care Team Providers Care Emergency Medcl Emt Name Role Phone Molly Alvarado MD Primary Care Provider Reason for Visit * Reason Onset Date Comments Medication Request 01/19/2015 Encounter Details Date Type Department Care Team (Late st Contact Info) Description 01/19/2015 Telephone [facility] Medical [facility] - Family Medicine [address] [place] [address] [address] [place] [address] Molly Alvarado MD [address] [place] [address] [address] [place] [address] Medication Request Social History Tobacco Use Types Packs/Day Years Used Date Smoking Tobacco: Never Smokeless Tobacco: Never Alcohol Use Standard Drinks/Week Comments Yes 0 (1 standard drink = 0.6 oz pur e alcohol) social - rare Sex and Gender Information Value Date Recorded Sex Assigned at Not on file Gender Identity Female 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
--- OUTSIDE RECORDS SUMMARY | 2024-07-30 16:03 | XMS_ITS | Encounter Summary ---
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
--- OUTSIDE RECORDS SUMMARY | 2024-07-30 16:03 | XMS_ITS | Encounter Summary ---
Author Organization [facility] Address [address] [facility] [place] [address] Care Team Providers Care Bonderizer Operator Name Role Phone Avery Hidalgo DO Primary Care Provider [phone] Reason for Visit * Reason Onset Date Comments Update 03/20/2017 Encounter Details Date Type Department Care Team (Late st Contact Info) Description 03/20/2017 Telephone [facility] Medical [facility] - Internal Medicine [address] [place] [address] Avery Hidalgo DO [address] [address] [place], [place] [id number] Update Social History Tobacco Use Types Packs/Day Years Used Date Smoking Tobacco: Never Smokeless Tobacco: Never Alcohol Use Standard Drinks/Week Comments Yes 0 (1 standard drink = 0.6 oz pur e alcohol) social - rare Sex and Gender Information Value Date Recorded Sex Assigned at Not on file Gender Identity Female 08/19/2022 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
--- OUTSIDE RECORDS SUMMARY | 2024-07-30 16:03 | XMS_ITS | Encounter Summary ---
Author Organization [facility] Address [address] [facility] [place] [address] Care Team Providers Care Fitting Room Supervisor Name Role Phone Molly Alvarado MD Primary Care Provider Avery Hidalgo DO Primary Care Provider [phone] Encounter Details Date Type Department Care Team (Latest Contact Info) Description 06/05/2015 Hospital Outpatient Visit Historic [facility] MAIN LAB [address] [place] [phone] Annette Singh MD [address] [facility] 2L [place] [address] Discharge Disposition: Home or Self Care Social History Tobacco Use Types Packs/Day Years Used Date Smoking Tobacco: Never Smokeless Tobacco: Never Alcohol Use Standard Drinks/Week Comments Yes 0 (1 standard drink = 0.6 oz pur e alcohol) social - rare Sex and Gender Information Value Date Recorded Sex Assigned at Not on file Gender Identity Female 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 BSA = 1.73 m2 m2 [facility] Creatinine Clearance (Corrected for BSA) 97 Not Established mL/minute [facility] Urine specimen (specimen) URINE SPECIMEN OBTAINED BY CLEAN CATCH PROCEDURE / Unknown 06/05/2015 10:56 AM CDT 06/05/2015 1:15 PM CDT Annette Singh MD LAB - URINE CHEMISTR Y ORDERABLES [address] [phone] * CREATININE BLOOD (06/05/2015 10:56 AM CDT) Creatinine 0.8 0.6 - 1.2 mg/dL [facility] eGFR >60 >60 mL/min/1.73 m2 [facility] Blood specimen (specimen) BLOOD SPECIMEN / Unknown 06/05/2015 10:56 AM CDT 06/05/2015 1:15 PM CDT Annette Singh MD LAB - CHEMISTRY ORDE RABLES [address] [phone] * PROTEIN URINE TIMED QUANTITATIVE (06/05/2015 10:56 AM CDT) Protein Urine <7 Not Established mg/dL [facility] Collection Time Timed Urine 24 Hrs [facility] Protein 24 Hour Urine 77 - 197 mg/24 hrs [facility] Comment:Unable to calculate excretion rate because the analyte concentration is outside the instrument measuring range. Volume Timed Urine 1,550 mL [facility] Urine specimen (specimen) URINE SPECIMEN OBTAINED BY CLEAN CATCH PROCEDURE / Unknown 06/05/2015 10:56 AM CDT 06/05/2015 1:15 PM CDT Annette Singh MD LAB - URINE CHEMISTR Y ORDERABLES Performing Organization Address [facility] Co de Phone Number [address] [phone] * ALBUMIN URINE TIMED (06/05/2015 10:56 AM CDT) Albumin Random Urine <5.0 Not Established mcg/mL [facility] Collection Time Timed Urine 24 Hrs [facility] Albumin 24 Hour Urine <30 mg/24 hrs [facility] Comment:Unable to calculate excretion rate because the analyte concentration is outside the instrument measuring range. Volume Timed Urine 1,550 mL [facility] Urine specimen (specimen) URINE SPECIMEN OBTAINED BY CLEAN CATCH PROCEDURE / Unknown 06/05/2015 10:56 AM CDT 06/05/2015 1:15 PM CDT Annette Singh MD LAB - URINE CHEMISTR Y ORDERABLES Performing Organization Address [facility] Co de Phone Number [address] [phone] * CREATININE CLEARANCE URINE TIMED + BLOOD (06/05/2015 10:56 AM CDT) Urine specimen (specimen) URINE SPECIMEN OBTAINED BY CLEAN CATCH PROCEDURE / Unknown 06/05/2015 10:56 AM CDT Narrative [facility] - 06/05/2015 2:45 PM CDT Height (inches)->61 Weight (lbs)->95 The following orders were created for panel order Creatinine clearance. Procedure ? Abnormality ? Status ? --------- ? ------ ? Creatinine (w/eGFR)[[id number]] ? Normal ?Final result ? Creatinine Clearance[[id number]] ?Final result ? Please view results for these tests on the individual orders. Annette Singh MD LAB - URINE CHEMISTR Y ORDERABLES Performing Organization Address [facility] de Phone Number [place] [phone] [address] documented in this encounter Visit Diagnoses Diagnosis Encounter for examination of potential donor of organ or tissue Other specified general medical examination documented in this encounter Care Teams Fitting Room Supervisor Relationship Specialty Start Date End Date Molly Alvarado MD PCP - General Family Medicine 12/05/11 08/25/15 Avery Hidalgo DO PCP - General Family Medicine 08/26/15 03/25/20 documented as of this encounter
--- OUTSIDE RECORDS SUMMARY | 2024-07-30 16:03 | XMS_ITS | Encounter Summary ---
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 [address] [place] [address] Avery Hidalgo DO [address] [place], [place] [id number] Anxiety and depression (Primary Dx); Vitamin D [...] file Gender Identity Female 08/19/2022 7:56 AM [employer]PER[employer] Sexual Orientation Not on file documented as of this encounter Last Filed Vital Signs Vital Sign Reading Time Taken Comments Blood Pressure 94/60 08/26/2015 11:18 AM [employer] Pulse - - Temperature 37 ??C (98.6 ??F) 08/26/2015 11:18 AM [employer] Respiratory Rate - - Oxygen Saturation - - Inhaled Oxygen Concentration - - Weight 42.2 kg (93 lb) 08/26/2015 11:18 AM [employer] Height 154.9 cm (5' 1 ) 08/26/2015 11:18 AM [employer] Body Mass Index 17.57 08/26/2015 11:18 AM [employer] documented in this encounter Patient Instructions * Patient Instructions* Avery Hidalgo DO - 08/26/2015 11:48 AM [employer] Continue current supplements and medications for improving/stable chronic medical conditions. Patient was encouraged to call immediately for any concerns or problems. [employer] documented in this encounter Progress Notes * Birgit Perez - 08/28/2015 7:41 AM CST Manager Flight correlated to established pt visit - patient has seen provider of same specialty/same [employer] in October 2014 - pt considered established. [employer] * Avery Hidalgo DO - 08/27/2015 5:44 [...] desires lab recheck. Also chronic vaginitis her OPTICS TECHNICAL OFFICER doctor has recommended Cymbalta. Ongoing chronic condition [...] encounter medications on file as of 08/26/2015. [employer] * Lindsay Meneses MA - 08/26/2015 11:21 AM CST Screenings Future Falls: Depression: PHQ-2:TOTAL POINT SCORE: 0 PHQ-9: [employer] documented in this encounter Miscellaneous Notes * Addendum Note - Birgit Perez - 08/28/2015 7:42 AM CSTAddended by: BIRGIT PEREZ on: 08/28/2015 07:42 AM Modules accepted: Level of Service [employer] documented in this encounter Plan of Treatment Not on file documented as of this encounter Procedures Procedure Name Priority Date/Time Associated Diagnosis Comments LIPID PROFILE W TCHOL/HDL Routine 10/15/2015 9:20 AM [employer] Anxiety and depression Hypercholesteremia VITAMIN D 25-HYDROXY Routine 10/15/2015 9:20 AM [employer] Vitamin D deficiency disease CBC W AUTO DIFFERENTIAL Routine 10/15/2015 9:20 AM [employer] Anxiety and depression Hypercholesteremia COMPREHENSIVE METABOLIC PANEL Routine 10/15/2015 9:20 AM [employer] Anxiety and depression Hypercholesteremia TSH Routine 10/15/2015 9:20 AM [employer] Anxiety and depression Hypercholesteremia T4 FREE Routine 10/15/2015 9:20 AM [employer] Anxiety and depression Hypercholesteremia documented in this encounter Results * (ABNORMAL) VITAMIN D 25-HYDROXY (10/15/2015 9:20 AM [employer]) Vitamin D, 25 Hydroxy 10.77(L) 30 - 100 ng/mL [facility] INSURANCE BILL Comment: Vitamin D Status: ?Deficiency ? <20 ? ng/mL ?Insufficiency ?? 20-30 ??ng/mL ?Sufficiency ? 30-100 ng/mL ?Toxicity ? >100 ?ng/mL Blood specimen (specimen) BLOOD SPECIMEN / Unknown 10/15/2015 9:20 AM [employer] 10/15/2015 3:44 PM [employer] Narrative Resulting Agency Comment [facility] [address] [place] [address] ??[facility] [phone] Avery Hidalgo DO LAB - CHEMISTRY TIFFANIE WILLS [facility] INSURANCE BILL * CBC W AUTO DIFFERENTIAL (10/15/2015 9:20 AM [employer]) WBC 8.1 4.4 - 10.7 x10E9/L [facility] [...] x10E9/L [facility] INSURANCE BILL Comment:MPV FL BLOOD ([facility]) 1 1.1 fl 9.4-12.9 Granulocytes % 51.3 [...] BLOOD SPECIMEN / Unknown 10/15/2015 9:20 AM [employer] 10/15/2015 3:44 PM [employer] Narrative Resulting Agency Comment [address] ??[place] [phone] Avery Hidalgo DO LAB - HEMATOLOGY ORD ERABLES [facility] INSURANCE BILL * LIPID PROFILE W TCHOL/HDL (PO REF LAB) (10/15/2015 9:20 AM [employer]) Cholesterol 199 <200 mg/dL [facility] INSURANCE BILL Triglycerides 133 <150 mg/dL [facility] INSURANCE BILL HDL Cholesterol 66 >40 mg/dL [facility] INSURANCE BILL VLDL Calculated 27 <=30 mg/dL [facility] INSURANCE BILL LDL Calculated 106 <130 mg/dL [facility] INSURANCE BILL Comment:LDL/HDL RATIO BLOOD ([facility]) 1.6 <5.0 Cholesterol/HDL Ratio 3.0 <4.5 [facility] INSURANCE BILL Blood specimen (specimen) BLOOD SPECIMEN / Unknown 10/15/2015 9:20 AM [employer] 10/15/2015 3:44 PM [employer] Narrative Resulting Agency Comment [address] ??[place] [phone] Avery Hidalgo DO LAB - CHEMISTRY ORDE RABJESUS Performing Organization Address [facility] Co de Phone Number [facility] INSURANCE BILL * T4 FREE (10/15/2015 9:20 AM [employer]) T4 Free 0.86 0.65 - 1.34 ng/dL [facility] INSURANCE BILL Blood specimen (specimen) BLOOD SPECIMEN / Unknown 10/15/2015 9:20 AM [employer] 10/15/2015 3:44 PM [employer] Narrative Resulting Agency Comment [address] ??[place] [phone] Avery Hidalgo DO LAB - CHEMISTRY ORDE RABJESUS Performing Organization Address City/[facility]/ZIP Co de Phone Number [facility] INSURANCE BILL * TSH (10/15/2015 9:20 AM [employer]) TSH 1.95 0.358 - 3.740 uIU/mL [facility] INSURANCE BILL Blood specimen (specimen) BLOOD SPECIMEN / Unknown 10/15/2015 9:20 AM [employer] 10/15/2015 3:44 PM [employer]PER[employer] Narrative Resulting Agency Comment [address] ??[place] [phone] Avery Hidalgo DO LAB - CHEMISTRY TIFFANIE WILLS [facility] INSURANCE BILL * COMPREHENSIVE METABOLIC PANEL (10/15/2015 9:20 AM [employer]) Glucose 83 74 - 106 mg/dL [facility] [...] BLOOD SPECIMEN / Unknown 10/15/2015 9:20 AM [employer] 10/15/2015 3:44 PM [employer] Narrative Resulting Agency Comment [address] ??[place] [phone] Avery Hidalgo DO LAB - CHEMISTRY TIFFANIE WILLS [facility] INSURANCE BILL documented in this encounter Visit Diagnoses Diagnosis Anxiety and depression- Primary Dysthymic disorder Vitamin D deficiency disease Unspecified vitamin D deficiency Hypercholesteremia Pure hypercholesterolemia Vaginal vestibulitis Vaginitis and vulvovaginitis, unspecified documented in this encounter Care Teams Oil Processing Technician Relationship Specialty Start Date End Date Avery Hidalgo DO PCP - General Family Medicine 08/26/15 03/25/20 documented as of this encounter
--- OUTSIDE RECORDS SUMMARY | 2024-07-30 16:03 | XMS_ITS | Encounter Summary ---
Author Organization 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
--- OUTSIDE RECORDS SUMMARY | 2024-07-30 16:03 | XMS_ITS | Encounter Summary ---
Author Organization [facility] Address [address] [place] [address] Care Team Providers Care Welder Explosion Name Role Phone Molly Alvarado MD Primary Care Provider Reason for Visit * Reason Comments Pain Abdominal Pt reports abdominal pain that started 4-5 hours ago, +nausea/vomiting; no fever. 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 ?? Only take [id number]-[id number] or prescription medicines for pain, discomfort, or [...] Document Reviewed: 03/18/2009 ExitCare?? Patient Information ??2013 [employer]. Urinary Tract Infection Urinary tract infections (UTIs) [...] Document Reviewed: 09/07/2012 ExitCare?? Patient Information ??2013 [employer]. All labs and x-rays have potential for [...] with the patient: 01/01/2015 00:07 [place] [id number] [facility] EMERGENCY DEPARTMENT History Chief Complaint Patient [...] Procedure Laterality Date ??? section 04/03/2011 ??? [place] tooth extraction ??? 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 Social History Main Topics [...] (*) 44.0-73.0 % Lymph 22.1 20.0-43.0 % Lane 4.2 (*) 5.0-13.0 % Eos 0.2 0.0-6.0 % Baso 0.2 0.0-2.0 % Immature Grans 0.2 0-1 % Neutro Abs 7.58 (*) 2.01-7.14 x10^9/L Lymph Abs 2.29 1.07-3.94 x10^9/L Lane Abs 0.43 0.26-1.07 x10^9/L Eosin Abs 0.02 [...] Yellow, Dark Yellow Clarity UA Clear Specific [place] UA 1.021 1.005-1.030 pH UA 5.5 5.0-8.0 [...] to follow-up with: Molly Alvarado MD [address] [facility] [address] [facility] [address] Josiah Breen MD [address] [place] [address] [address] [place] [address] to arrange further evaluation and management Disposition: [...] Yellow, Dark Yellow 01/01/2015 2:24 AM CDT [facility] Clarity UA Clear 01/01/2015 2:24 AM CDT [facility] Specific [place] UA 1.021 1.005 - 1.030 01/01/2015 2:24 AM CDT [facility] pH UA 5.5 5.0 - 8.0 pH 01/01/2015 2:24 AM CDT [facility] Protein UA Negative Negative 01/01/2015 2:24 AM CDT [facility] Blood UA Negative Negative 01/01/2015 2:24 AM CDT [facility] Leukocyte UA 2+(A) Negative 01/01/2015 2:24 AM CDT [facility] Nitrite UA Negative Negative 01/01/2015 2:24 AM CDT [facility] Glucose UA Negative Negative 01/01/2015 2:24 AM CDT [facility] Ketone UA 1+(A) Negative 01/01/2015 2:24 AM CDT [facility] Bilirubin UA Negative Negative 01/01/2015 2:24 AM CDT [facility] Urobilinogen UA 0.2 0.1 - 1.0 EU/dL 01/01/2015 2:24 AM CDT [facility] WBC UA Auto 20-50(A) 0-2, 2-5 # /hpf 01/01/2015 2:24 AM CDT [facility] RBC UA Auto 2-5 0-2, 2-5 # /hpf 01/01/2015 2:24 AM CDT [facility] Epithelial Cell UA Auto 2-5 0-2, 2-5 # /hpf 01/01/2015 2:24 AM CDT [facility] Bacteria UA Auto 1+(A) None seen 01/01/2015 2:24 AM CDT [facility] Hyaline Casts UA Auto 2-5(A) 0 - 2 #/lpf 01/01/2015 2:24 AM CDT [facility] Urine Microscopy Urine microscopy not indicated 01/01/2015 2:24 AM CDT [facility] Urine URINE SPECIMEN OBTAINED BY CLEAN CATCH PROCEDURE / Unknown 01/01/2015 2:10 AM CDT 01/01/2015 2:15 AM CDT Jayne Chne MD LAB - URINALYSIS ORD ERABLES Performing Organization Address City/[facility]/ZIP Co de Phone Number [facility] [address] [address] * HCG URINE QUALITATIVE - POINT OF CARE (IP) (01/01/2015 2:00 AM CDT) HCG Qual Urine Negative Negative [facility] POCT TESTING QC Verified Yes Yes [facility] POC T TESTING Urine specimen (specimen) URINE / Unknown 01/01/2015 2:00 AM CDT Jayne Chen MD LAB - POINT OF CARE ORDERABLES [facility] POCT TESTING [address] [place] [address], [facility] * LIPASE BLOOD (01/01/2015 1:04 AM CDT) Lipase 141 73 - 393 U/L 01/01/2015 1:31 AM [facility] Blood BLOOD SPECIMEN / Unknown 01/01/2015 1:04 AM CDT 01/01/2015 1:13 AM CDT Jayne Chen MD LAB - CHEMISTRY TIFFANIE WILLS [facility] Organization Address City/State/ZIP Co de Phone Number [facility] [address] [place] [address] * (ABNORMAL) COMPREHENSIVE METABOLIC PANEL (01/01/2015 1:04 AM CDT) Glucose 104 74 - 106 mg/dL 01/01/2015 1:30 AM [facility] Sodium 145 136 - 145 mmol/L 01/01/2015 1:30 AM [facility] Potassium 3.4(L) 3.5 - 5.1 mmol/L 01/01/2015 1:30 AM [facility] Chloride 112(H) 98 - 107 mmol/L 01/01/2015 1:30 AM [facility] CO2 21(L) 22 - 31 mmol/L 01/01/2015 1:30 AM [facility] Calcium 9.5 8.5 - 10.1 mg/dL 01/01/2015 1:30 AM [facility] Anion Gap 12 5 - 15 mmol/L 01/01/2015 1:30 AM [facility] BUN 11 7 - 21 mg/dL 01/01/2015 1:30 AM [facility] Creatinine 0.53 0.50 - 1.30 mg/dL 01/01/2015 1:30 AM [facility] eGFR by MDRD >60 >60 mL/min/1.7 3m2 01/01/2015 1:30 AM [facility] eGFR by MDRD >60 >60 mL/min/1.7 3m2 01/01/2015 1:30 AM [facility] Alkaline Phosphatase 77 38 - 126 U/L 01/01/2015 1:30 AM [facility] ALT 23 12 - 78 U/L 01/01/2015 1:30 AM [facility] AST 18 5 - 40 U/L 01/01/2015 1:30 AM CDT [facility] Protein Total 8.4(H) 6.4 - 8.2 gm/dL 01/01/2015 1:30 AM CDT [facility] Albumin 4.6 3.4 - 5.0 gm/dL 01/01/2015 1:30 AM CDT [facility] Bilirubin Total 0.4 0.2 - 1.0 mg/dL 01/01/2015 1:30 AM CDT [facility] Blood BLOOD SPECIMEN / Unknown 01/01/2015 1:04 AM CDT 01/01/2015 1:13 AM CDT Jayne Chen MD LAB - CHEMISTRY BLANCHEE JOHANN [facility] Organization Address City/State/ZIP Co de Phone Number [facility] [address] [place] [address] * (ABNORMAL) CBC W AUTO DIFFERENTIAL (01/01/2015 1:04 AM CDT) WBC 10.4 4.4 - 10.7 x10^9/L 01/01/2015 1:16 AM [facility] WBC Corrected x10^9/L 01/01/2015 1:16 AM CDT [facility] RBC 4.75 3.80 - 5.20 x10^12/L 01/01/2015 1:16 AM CDT [facility] Hemoglobin 14.3 12.0 - 15.6 gm/dL 01/01/2015 1:16 AM [facility] Hematocrit 40.9 35.9 - 45.5 % 01/01/2015 1:16 AM CDT [facility] MCV 86.1 80.7 - 98.3 fl 01/01/2015 1:16 AM CDT [facility] MCH 30.1 26.7 - 34.0 pg 01/01/2015 1:16 AM CDT [facility] MCHC 35.0 30.8 - 35.9 gm/dL 01/01/2015 1:16 AM CDT [facility] Platelet Count 299 153 - 416 x10^9/L 01/01/2015 1:16 AM CDT [facility] RDW-CV 13.3 12.1 - 14.9 % 01/01/2015 1:16 AM [facility] MPV 10.6 9.4 - 12.9 fl 01/01/2015 1:16 AM [facility] Neutrophils % 73.1(H) 44.0 - 73.0 % 01/01/2015 1:16 AM [facility] Lymphocytes % 22.1 20.0 - 43.0 % 01/01/2015 1:16 AM [facility] Monocytes % 4.2(L) 5.0 - 13.0 % 01/01/2015 1:16 AM [facility] Eosinophils % 0.2 0.0 - 6.0 % 01/01/2015 1:16 AM [facility] Basophils % 0.2 0.0 - 2.0 % 01/01/2015 1:16 AM [facility] Immature Granulocytes 0.2 0 - 1 % 01/01/2015 1:16 AM [facility] Neutrophil Absolute 7.58(H) 2.01 - 7.14 x10^9/L 01/01/2015 1:16 AM [facility] Lymphocytes Absolute 2.29 1.07 - 3.94 x10^9/L 01/01/2015 1:16 AM [facility] Monocytes Absolute 0.43 0.26 - 1.07 x10^9/L 01/01/2015 1:16 AM [facility] Eosinophils Absolute 0.02 0 - 0.47 x10^9/L 01/01/2015 1:16 AM [facility] Basophils Absolute 0.02 0 - 0.08 x10^9/L 01/01/2015 1:16 AM [facility] Blood BLOOD SPECIMEN / Unknown Venipuncture / Unknown 01/01/2015 1:04 AM T 01/01/2015 1:13 AM T Jayne Chen MD LAB - HEMATOLOGY ORD ERABLES [facility] [address] [address] documented [...] RN) documented in this encounter Care Teams Welder Explosion Relationship Specialty Start Date End Date Molly Alvarado MD PCP - General Family Medicine 12/05/11 08/25/15 documented as of this encounter
--- OUTSIDE RECORDS SUMMARY | 2024-07-30 16:03 | XMS_ITS | Encounter Summary ---
Author Organization [facility] Address [address] [place] [address] Care Team Providers Care Ethylbenzene Converter Operator Name Role Phone Molly Alvarado MD Primary Care Provider Avery Hidalgo DO Primary Care Provider [phone] Encounter Details Date Type Department Care Team (Latest Contact Info) Description 06/01/2015 Hospital Outpatient Visit [facility] OUTPATIENT SERVICES [address] [place] [id number] ProviderBulmaro MD Discharge Disposition: Home or Self Care Social History Tobacco Use Types Packs/Day Years Used Date Smoking Tobacco: Never Smokeless Tobacco: Never Alcohol Use Standard Drinks/Week Comments Yes 0 (1 standard drink = 0.6 oz pur e alcohol) social - rare Sex and Gender Information Value Date Recorded Sex Assigned at Not on file Gender Identity Female 08/19/2022 7:56 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 Sexual Orientation Not on file documented as of this encounter Plan of Treatment Not on file documented as of this encounter Procedures Procedure Name Priority Date/Time Associated Diagnosis Comments PTT [facility] Routine 06/01/2015 7:43 AM CDT PT-INR [facility] Routine 06/01/2015 7:43 AM CDT CYTOMEGALOVIRUS AB [...] COMMENT (06/01/2015 7:43 AM CDT) Comment Comment [facility] HOLLY Perez ([place]) Comment: Non reactive HCV antibody screen is consistent with no HCV infection, unless recent infection is suspected or other evidence exists to indicate HCV infection. Blood specimen (specimen) 06/01/2015 7:43 AM CDT 06/01/2015 9:18 AM CDT Narrative [facility] RAYRAY ([place]) - 06/02/2015 6:15 AM CDT Performed at: ??01 - [facility] [address], [place], [place] ??[id number] Tactical Debriefer Officer: Erasmo Morris PhD, Phone: ??[phone] Annette Singh MD LAB - CHEMISTRY TIFFANIE WILLS Performing Organization Address [facility] Co de Phone Number [facility] * NICOTINE + METABOLITES BLOOD (06/01/2015 7:43 AM CDT) Pathologist [facility] [place] Nicotine None Detected ng/mL [facility] ([place]) Comment: Nicotine levels greater than 2.0 are consistent with the use of tobacco or tobacco cessation products. Cotinine None Detected ng/mL [facility] ([facility]) Comment: Cotinine levels greater than 20.0 are consistent with the use of tobacco or tobacco cessation products. Blood specimen (specimen) BLOOD SPECIMEN / Unknown 06/01/2015 7:43 AM CDT 06/01/2015 8:48 AM CDT Narrative [facility] [place]) - 06/07/2015 7:06 PM CDT Performed at: ??01 - [address] ??[id number] Tactical Debriefer Officer: Willi Horne MD, Phone: ??[phone] Annette Singh MD LAB - CHEMISTRY TIFFANIE WILLS Performing Organization Address [facility] Co de Phone Number [facility] RAYRAY FINN) * (ABNORMAL) CYTOMEGALOVIRUS AB IGG/IGM RFLXD (06/01/2015 7:43 AM CDT) [facility] Cytomegalovirus Antibody IgG 5.50(H) 0.00 - 0.59 U/mL [facility] [place]) Comment: ? Negative ?<0.60 ? Equivocal ?? 0.60 - 0.69 ? Positive ?>0.69 Cytomegalovirus Antibody IgM <30.0 0.0 - 29.9 AU/mL [facility] ([place]) Comment: ?Negative ? <30.0 ?Equivocal ??30.0 - 34.9 ?Positive ? >34.9 A positive result is generally indicative of acute infection, reactivation or persistent IgM production. Blood specimen (specimen) BLOOD SPECIMEN / Unknown 06/01/2015 7:43 AM CDT 06/01/2015 8:59 AM CDT Narrative [facility] [place]) - 06/05/2015 3:21 PM CDT Performed at: ??02 - [address] ??[id number] Tactical Debriefer Officer: Willi Horne MD, Phone: ??[phone] Annette Singh MD LAB - SEROLOGY ORDER SHARON Performing Organization Address City/State/[facility] Co de Phone Number [facility] EKTA [facility]) * (ABNORMAL) CYTOMEGALOVIRUS TOT AB RFLX IGG/IGM DONOR (06/01/2015 7:43 AM CDT) Donor Cytomegalovirus Total Antibody Reactive( A) Non Reactive [facility] ([place]) Comment:Test performed with Immucor Capture-CMV IgG and IgM kit. Blood specimen (specimen) BLOOD SPECIMEN / Unknown 06/01/2015 7:43 AM CDT 06/01/2015 8:59 AM CDT Narrative [facility] EKTA [place]) - 06/05/2015 3:21 PM CDT Performed at: ??01 - [facility] [address] ??[id number] Tactical Debriefer Officer: Andry Ty PhD, Phone: ??[phone] Annette Singh MD LAB - SEROLOGY ORDER SHARON [facility] RAYRAY [id number]) * QUANTIFERON TB-GOLD INC (06/01/2015 7:43 AM CDT) QuantiFERON TB Gold Negative Negative [facility] ([place]) Comment: The specimen received for QuantiFERON testing was incubated by the ordering institution. ??Specific procedures outlined in our Directory of Services and in the package insert for the QuantiFERON Gold (In Tube) test must be followed to enable for proper stimulation of cells for the production of interferon gamma. QuantiFERON Criteria Comment [facility] ([email or web address]) Comment: To be considered positive a specimen [...] values. QuantiFERON TB Antigen Value 0.13 IU/mL [facility] ([email or web address]) QuantiFERON Nil Value 0.16 IU/mL [facility] ([email or web address]) QuantiFERON Mitogen Value >10.00 IU/mL [facility] ([employer]) QFT TB Ag minus Nil Value <0.00 IU/mL [facility] (BELuckyPennie) Interpretation Comment [facility]ia [facility] ([email or web address]) Comment: The QuantiFERON TB Gold (in Tube) [...] AM CDT 06/01/2015 8:47 AM CDT Narrative [facility] ([email or web address]) - 06/04/2015 6:14 AM CDT Performed at: ??01 - [facility] ??[id number] Tactical Debriefer Officer: Erasmo Morris PhD, Phone: ??[phone] Annette Singh MD LAB - SEROLOGY ORDER SHARON Performing Organization Address [facility] Co de Phone Number [facility]) * WEST NILE VIRUS ANTIBODY IGG/IGM PANEL (06/01/2015 7:43 AM CDT) West Nile Virus AB IGG Negative Negative [facility] ([facility]) Comment: No detectable West Nile Virus IgG Antibody. If a recent infection is suspected, another specimen should be submitted for testing within 7-14 days. West Nile Virus AB IGM Negative Negative [facility] ([facility]) Comment: No detectable West Nile Virus IgM Antibody. If a recent infection is suspected, another specimen should be submitted for testing within 7-14 days. Blood specimen (specimen) BLOOD SPECIMEN / Unknown 06/01/2015 7:43 AM CDT 06/01/2015 9:18 AM CDT Narrative [facility]) - 06/03/2015 3:19 PM CDT Performed at: ??01 - [facility] ??[id number] Tactical Debriefer Officer: Willi Horne MD, Phone: ??[phone] Annette Singh MD LAB - CHEMISTRY ORDGeo WILLS Performing Organization Address [facility]/ZIP Co de Phone Number [facility]) * CULTURE URINE (06/01/2015 7:43 AM CDT) Culture Urine Less than 10,000 CFU/ML of Normal Urogenital/ Skin Y[facility] Comment: Urine specimen (specimen) URINE / Unknown 06/01/2015 7:43 AM CDT 06/01/2015 8:48 AM CDT Narrative [facility] - 06/03/2015 9:08 AM CDT Specimen Type->Urine Annette Singh MD LAB - MICROBIOLOGY O RDERABLES [facility] [address] [phone] * HIV 1/0/2 DONOR (06/01/2015 7:43 AM CDT) Donor HIV-1/O/2 Antibody Negative Negative [facility] ([facility]) Comment:Test performed with Sims Prism HIV O Plus kit. Blood specimen (specimen) BLOOD SPECIMEN / Unknown 06/01/2015 7:43 AM CDT 06/01/2015 9:18 AM CDT Narrative [facility] ([facility]) - 06/03/2015 6:16 AM CDT Performed at: ??01 - [facility] [address] [place] [address] ??[id number] Tactical Debriefer Officer: Andry Ty PhD, Phone: ??[phone] Annette Singh MD LAB - CHEMISTRY TIFFANIE WILLS Performing Organization Address [facility] Co de Phone Number [facility] ([facility]) * HEPATITIS B SURFACE ANTIGEN RFLX DONOR (06/01/2015 7:43 AM CDT) Hepatitis B Virus Surface Antigen Negative Negative [facility] ([facility]) Comment:Test performed with Sims Prism HBsAg kit. Blood specimen (specimen) BLOOD SPECIMEN / Unknown 06/01/2015 7:43 AM CDT 06/01/2015 9:18 AM CDT Narrative [facility] ([facility]) - 06/03/2015 6:16 AM CDT Performed at: ??01 - [facility] [address] [place] [address] ??[id number] Tactical Debriefer Officer: Andry Ty PhD, Phone: ??[phone] Authorizing Provider Result Paola Singh MD LAB - CHEMISTRY TIFFANIE WILLS [facility] ([facility]) * STRONGYLOIDES ANTIBODY IGG (06/01/2015 7:43 AM CDT) Pathologist [facility] [place] Strongyloides Antibody IgG 0.01 <=1.49 IV [facility] ([place]) Comment: INTERPRETIVE INFORMATION: Strongyloides Ab, [...] infection. Test developed and characteristics determined by [facility]. See Compliance Statement D: [employer]AJ [employer] Blood specimen (specimen) BLOOD SPECIMEN / Unknown 06/01/2015 7:43 AM CDT 06/01/2015 9:18 AM CDT Annette Singh MD LAB - SEROLOGY ORDER SHARON [facility] ([place]) * TREPONEMA PALLIDUM AB IGG DONOR (06/01/2015 7:43 AM CDT) Pathologist [facility] [place] Donor Treponema pallidum Antibody IgG Non Reactive Non Reactive [facility] ([facility]) Comment: Test performed with [employer] CAPTIA Syphilis (T. pallidum)-G kit. Blood specimen (specimen) BLOOD SPECIMEN / Unknown 06/01/2015 7:43 AM CDT 06/01/2015 9:18 AM CDT Narrative [facility] - 06/02/2015 7:10 PM CDT Performed at: ??01 - [facility] [address] ??[id number] Tactical Debriefer Officer: Andry Ty PhD, Phone: ??[phone] Annette Singh MD LAB - SEROLOGY ORDER SHARON Performing Organization Address [facility] Co de Phone Number [facility]) * HIV-1/HCV MACIEJ DONOR (06/01/2015 7:43 AM CDT) Pathologist [facility] [place] HIV-1/HCV/HBV MACIEJ Comment Non Reactive [facility] ([facility]) Comment: Nonreactive for HIV-1 RNA ?Nonreactive for HCV RNA ?Nonreactive for HBV DNA Test performed with [employer] Ultrio Assay kit. Blood specimen (specimen) BLOOD SPECIMEN / Unknown 06/01/2015 7:43 AM CDT 06/01/2015 8:59 AM CDT Narrative [facility]) - 06/02/2015 7:10 PM CDT Performed at: ??01 - [facility] [address] [place] [address] ??[id number] Tactical Debriefer Officer: Andry Ty PhD, Phone: ??[phone] Annette Singh MD LAB - CHEMISTRY ORDE RABJESUS Performing Organization Address City/[facility]/ZIP Co de Phone Number [facility] ([facility]) * (ABNORMAL) EDWIN-MONTOYA VIRUS ANTIBODY TO VCA IGG (06/01/2015 7:43 AM CDT) Pathologist [facility] [place] Edwin-Montoya Virus Antibody To Viral Capsid Antigen IgG 114.0(H) 0.0 - 21.9 U/mL [facility] ([place]) Comment: INTERPRETIVE INFORMATION: Edwin-Montoya Virus Antibody to ?Viral Capsid Antigen, IgG ??17.9 U/mL or less.......Not Detected ??18.0-21.9 U/mL..........Indeterminate - Repeat testing in ?10-14 days may be helpful. ??22.0 U/mL or greater....Detected Interpretive information regarding serologic features of EBV-associated diseases is available at [email or web address]. Blood specimen (specimen) BLOOD SPECIMEN / Unknown 06/01/2015 7:43 AM CDT 06/01/2015 9:18 AM CDT Annette Singh MD LAB - CHEMISTRY TIFFANEI WILLS [facility] ([facility]) * EDWIN-MONTOYA VIRUS ANTIBODY TO VCA IGM (06/01/2015 7:43 AM CDT) Edwin-Montoya VCA Antibody IgM <10.0 0.0 - 43.9 U/mL [facility] ([place]) Comment: INTERPRETIVE INFORMATION: Edwin-Montoya Virus Antibody to ?Viral Capsid Antigen, IgM ??35.9 U/mL or less.......Not Detected ?36.0-43.9 U/mL..........Indeterminate - Repeat testing in ?10-14 days may be helpful. ??44.0 U/mL or greater....Detected Interpretive information regarding serologic features of EBV-associated diseases is available at [email or web address]. Blood specimen (specimen) BLOOD SPECIMEN / Unknown 06/01/2015 7:43 AM CDT 06/01/2015 9:18 AM CDT Annette Singh MD LAB - SEROLOGY ORDER SHARON [facility] ([facility]) * (ABNORMAL) HEPATITIS A ANTIBODY (06/01/2015 7:43 AM CDT) Hepatitis A Virus Antibody Total Positive(A ) Negative [facility] ([facility]) Blood specimen (specimen) 06/01/2015 7:43 AM CDT 06/01/2015 9:18 AM CDT Narrative [facility]) - 06/02/2015 6:15 AM CDT Performed at: ??01 - [address] ??[id number] Tactical Debriefer Officer: Erasmo Morris PhD, Phone: ??[phone] Annette Singh MD LAB - CHEMISTRY TIFFANIE WILLS Performing Organization Address [facility] Co de Phone Number [facility] ([facility]) * HEPATITIS C AB W RFLX VERIFICATION (06/01/2015 7:43 AM CDT) Hepatitis C Antibody <0.1 0.0 - 0.9 s/co ratio [facility] ([facility]) 06/01/2015 7:43 AM CDT 06/01/2015 9:18 AM CDT Narrative [facility] [facility]) - 06/02/2015 6:15 AM CDT Performed at: ??[address] ??[id number] Tactical Debriefer Officer: Erasmo Morris PhD, Phone: ??[phone] Annette Singh MD LAB - CHEMISTRY TIFFANIE WILLS Performing Organization Address City/[facility]/ZIP Co de Phone Number [facility] ([facility]) * HEPATITIS B SURFACE ANTIBODY QUANT (06/01/2015 7:43 AM CDT) Pathologist [facility] [place] Hepatitis B Virus Surface Antibody Quantitative 112.6 Immunity>9 .9 mIU/mL [facility] ([facility]) Comment: ??Status of Immunity ? Anti-HBs Level ? Inconsistent with Immunity ? 0.0 - 9.9 Consistent with Immunity ?>9.9 Blood specimen (specimen) BLOOD SPECIMEN / Unknown 06/01/2015 7:43 AM CDT 06/01/2015 9:18 AM CDT Narrative [facility] ([place]) - 06/02/2015 6:15 AM CDT Performed at: ??01 - [address], [place], [place] ??[id number] Tactical Debriefer Officer: Erasmo Morris PhD, Phone: ??[phone] Annette Singh MD LAB - SEROLOGY ORDER SHARON Performing Organization Address City/[facility]/ZIP Co de Phone Number [facility]) * RPR (06/01/2015 7:43 AM CDT) Pathologist [facility] [place] RPR Non-reacti ve Non-reacti ve [facility] Blood specimen (specimen) BLOOD SPECIMEN / Unknown 06/01/2015 7:43 AM CDT 06/01/2015 8:50 AM CDT Annette Singh MD LAB - CHEMISTRY ORDGeo WILLS [address] [phone] * HEMOGLOBIN A1C (06/01/2015 7:43 AM CDT) Hemoglobin A1c 5.1 4.4 - 6.3 % [facility] Estimated Average Glucose 100 mg/dL [facility] Comment: HbA1c Interpretation: Treatment target values recommended by ADA and other clinical organizations should be used to evaluate metabolic control in patients. Treatment Target Values: Normal : < 5.7% Pre-diabetes: 5.7-6.4% Diabetes: Equal to or greater than 6.5% Reference: [place] [employer] Standards of Care in Diabetes -2014 In patients 70 years and older consider HbA1c target range of 7.0-7.5% Reference: ??Diabetes Mellitus in Older People: Position Statement on behalf of the International Association of Gerontology and Geriatrics (IAGG), the Diabetes Working Alliance Party for Older People (EDWPOP), and the International Task Force of Experts in Diabetes. ??Flynn Rahman et al. J [place] [employer] Association. 2012 Test results diagnostic [...] - CHEMISTRY TIFFANIE WILLS Performing Organization Address City/[facility]/ZIP Co de Phone Number [address] [phone] * HEPATITIS B CORE ANTIBODY (06/01/2015 7:43 AM CDT) [facility] HBc Antibody Total Non-reacti ve Non-reacti ve [facility] Blood specimen (specimen) BLOOD SPECIMEN / Unknown 06/01/2015 7:43 AM CDT 06/01/2015 8:50 AM CDT Annette Singh MD LAB - CHEMISTRY TIFFANIE WILLS [address] [phone] * (ABNORMAL) URINALYSIS W/MICROSCOPIC NO CULTURE (06/01/2015 7:43 AM CDT) Color UA Yellow Straw, Yellow, Colorless, Light Yellow [facility] Clarity UA Clear Clear [facility] Specific Harper UA 1.012 1.001 - 1.030 [facility] [...] Singh MD LAB - URINALYSIS ORD ERABLES [address] [phone] * PTT [facility]U (06/01/2015 7:43 AM CDT) [...] - COAGULATION OR DERABLES Performing Organization Address City/[facility]/ZIP Co de Phone Number [address] [phone] * ALCOHOL ETHYL BLOOD (06/01/2015 7:43 AM CDT) Pathologist [facility] [place] Interpretation Ethanol None Detected None Detected mg/dL [facility] Comment:Ethanol levels less than 10 mg/dL are resulted as None detected . Blood specimen (specimen) BLOOD SPECIMEN / Unknown 06/01/2015 7:43 AM CDT 06/01/2015 8:48 AM CDT Annette Singh MD LAB - CHEMISTRY TIFFANIE WILLS Performing Organization Address [facility] Co de Phone Number [address] [phone] * PHOSPHORUS BLOOD (06/01/2015 7:43 AM CDT) Pathologist [facility] [place] Phosphorus 2.4 2.3 - 4.7 mg/dL [facility] Blood specimen (specimen) BLOOD SPECIMEN / Unknown 06/01/2015 7:43 AM CDT 06/01/2015 8:48 AM CDT Annette Singh MD LAB - CHEMISTRY TIFFANIE WILLS Performing Organization Address [facility] Co de Phone Number [address] [phone] * PT-INR SLU (06/01/2015 7:43 AM CDT) Pathologist [facility] [place] PT 14.6 12.1 - 14.8 Seconds [facility] [...] Singh MD LAB - COAGULATION OR DERABLES [address] [phone] * (ABNORMAL) LIPID PROFILE (06/01/2015 7:43 AM CDT) Cholesterol Total 198 <200 mg/dL [facility] HDL 55 >40 mg/dL [facility] Comment: ATP III Classification of HDL Cholesterol: ? <40 mg/dL: ??Considered a major risk factor. ? >60 mg/dL: ??Considered a negative risk factor. ? LDL Calculated 125(H) <100 mg/dL [facility] Comment: ATP III Classification of LDL Cholesterol: ?<100 mg/dL: ??Optimal ? 100 - 129 mg/dL: ??Near Optimal/Above Optimal ? 130 - 159 mg/dL: ??Borderline High ? 160 - 189 mg/dL: ??High ?>190 mg/dL: ??Very High ? Triglycerides 90 <150 mg/dL [facility] Comment: ATP III Classification of Triglycerides: ?<150 mg/dL: ??Normal ? 150 - 199 mg/dL: ??Borderline High ? 200 - 400 mg/dL: ??High ?>500 mg/dL: ??Very High Blood specimen (specimen) BLOOD SPECIMEN / Unknown 06/01/2015 7:43 AM CDT 06/01/2015 8:48 AM CDT Annette Singh MD LAB - CHEMISTRY TIFFANIE WILLS [address] [phone] * (ABNORMAL) COMPREHENSIVE METABOLIC PANEL (06/01/2015 7:43 AM CDT) BUN 9 7 - 26 mg/dL [facility] Creatinine 0.8 0.6 - 1.2 mg/dL [facility] Sodium 136 136 - 145 mmol/L [facility] Potassium 3.0(L) 3.5 - 4.5 mmol/L [facility] Chloride 103 98 - 107 mmol/L [facility] CO2 22 22 - 29 mmol/L [facility] Glucose 92 70 - 115 mg/dL [facility] Calcium 9.6 8.4 - 10.2 mg/dL [facility] Protein Total 7.7 6.0 - 8.3 g/dL [facility] Albumin 4.3 3.4 - 5.0 g/dL [facility] Bilirubin Total 0.8 0.2 - 1.2 mg/dL [facility] Alkaline Phosphatase 75 40 - 150 Units/L [facility] ALT 17 0 - 55 Units/L [facility] AST 18 5 - 34 Units/L [facility] Anion Gap 14 8 - 18 [facility] BUN/Creatinine Ratio 11 7 - 23 [facility] Osmolality Calculated 266(L) 270 - 300 mOsm/kg [facility] Albumin/Globulin Ratio 1.3 1.1 - 2.3 [facility] eGFR >60 >60 mL/min/1.7 3 m2 [facility] Blood specimen (specimen) BLOOD SPECIMEN / Unknown 06/01/2015 7:43 AM CDT 06/01/2015 8:48 AM CDT Annette Singh MD LAB - CHEMISTRY TIFFANIE WILLS [address] [phone] * URIC ACID BLOOD (06/01/2015 7:43 AM CDT) Uric Acid 5.0 2.6 - 7.2 mg/dL [facility] Blood specimen (specimen) BLOOD SPECIMEN / Unknown 06/01/2015 7:43 AM CDT 06/01/2015 8:48 AM CDT Annette Singh MD LAB - CHEMISTRY TIFFANIE WILLS [facility] [address] [place] [address], [facility] [phone] * (ABNORMAL) CBC W AUTO DIFFERENTIAL (06/01/2015 7:43 AM CDT) Pathologist [facility] [place] WBC 6.6 3.5 - 10.5 10? 3 /uL [facility] RBC 4.21 3.90 - 5.00 10? 6 /uL [facility] Hemoglobin 12.6 12.0 - 15.5 g/dL [facility] Hematocrit 36.2 35.0 - 45.0 % [facility] MCV 86.0 81.0 - 97.0 fL [facility] MCH 29.9 28.0 - 34.0 pg [facility] MCHC 34.8 32.0 - 36.0 g/dL [facility] Platelet Count 221 150 - 400 10? 3 /uL [facility] RDW-SD 40.1 36.0 - 50.0 fL [facility] RDW-CV 12.7 11.2 - 14.8 % [facility] MPV 11.3 9.3 - 12.8 fL [facility] nRBC Absolute 0.00 0 10? 3 /uL [facility] nRBC Auto 0.0 0 /100 WBC [facility] Neutrophils % 47.6 35.0 - 70.0 % [facility] Lymphocytes % 37.3 19.7 - 55.1 % [facility] Monocytes % 12.1 3.0 - 15.0 % [facility] Eosinophils % 2.7 0.0 - 6.0 % [facility] Basophil % 0.3 0.0 - 1.5 % [facility] Neutrophils Absolute 3.1 1.6 - 7.0 10? 3 /uL [facility] Lymphocyte Absolute 2.4 0.8 - 2.9 10? 3 /uL [facility] Monocytes Absolute 0.79(H) 0.14 - 0.66 10? 3 /uL [facility] Eosinophils Absolute 0.18 0.00 - 0.22 10? 3 /uL [facility] Basophils Absolute 0.02 0.00 - 0.06 10? 3 /uL [facility] Immature Granulocytes % 0.2 0.0 - 1.0 % [facility] Blood specimen (specimen) BLOOD SPECIMEN / Unknown 06/01/2015 7:43 AM CDT 06/01/2015 8:48 AM CDT Annette Singh MD LAB - HEMATOLOGY ORD ERABLES [address] [phone] * DRUG ABUSE PANEL 10-20+ETHANOL URINE NO [...] not screen for Propoxyphene, Meprobamate, Carisoprodol, Trazodone, dqrs-fxk-gebydft medications and/or volatiles (Acetone, Isopropanol, Methanol or Ethylene Glycol). Ethanol, Salicylate, Acetaminophen, Tricyclic Antidepressants and several therapeutic drugs may be individually assayed in serum or plasma specimen. Toxicology testing by the [facility] is an aid to medical diagnosis and treatment of patients. No documented chain of custody was maintained. Results are intended to be used for clinical purposes only. ? Annette Singh MD LAB - URINE CHEMISTR Y ORDERABLES Performing Organization Address [facility]/State/[facility] Co de Phone Number [address] [phone] * CBC W AUTO DIFFERENTIAL (06/01/2015 7:43 AM CDT) Blood specimen (specimen) BLOOD SPECIMEN / Unknown 06/01/2015 7:43 AM CDT [facility] - 06/01/2015 9:08 AM CDT The following orders were created for panel order CBC W/ DIFFERENTIAL. Procedure ? Abnormality ? Status ? --------- ? ------ ? CBC WITH DIFFERENTIAL[[id number]] ? Abnormal ?Final result ? Please view results for these tests on the individual orders. Annette Singh MD LAB - HEMATOLOGY ORD ERABLES Performing Organization Address City/State/[facility] Co de Phone Number [facility] [address] [place] [address], [facility] documented in this encounter Visit Diagnoses Diagnosis Encounter for examination of potential donor of organ or tissue Other specified general medical examination documented in this encounter Care Teams Ethylbenzene Converter Operator Relationship Specialty Start Date End Date Molly Alvarado MD PCP - General Family Medicine 12/05/11 08/25/15 Avery Hidalgo DO PCP - General Family Medicine 08/26/15 03/25/20 documented as of this encounter
--- OUTSIDE RECORDS SUMMARY | 2024-07-30 16:03 | XMS_ITS | Encounter Summary ---
Author Organization [facility] Address [address] [facility] [place] [address] Care Team Providers Care Shoe Trimmer Name Role Phone Azar Braxton MD Primary Care Provider [phone] Reason for Visit * Reason Comments Hospital Follow-up SVT from 03/07/2023 Encounter Details Date Type Department Care Team (Latest Contact Info) Description 03/17/2023 1:00 PM CDT Office Visit [facility] Heart & Vascular Care [address] [facility] [address] [place] [id number] Board, Magda Cortes APRN-JEWELRY CASTING MODEL MAKER [address] 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 [place] Tooth Extraction Family History: As below Social History: Social History Socioeconomic History ??? Marital status: Spouse name: Not on file ??? Number of children: 1 ??? Years of education: Not on file ??? Highest education level: Not on file Occupational History ??? 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 Smoking [...] treadmill stress test - discussed plant kathi Hall, NAVAL ARCHITECT SPECIALIST-JEWELRY CASTING MODEL MAKER The total time today spent was 30 [...] type documented in this encounter Care Teams Shoe Trimmer Relationship Specialty Start Date End Date Azar Braxton MD [address] [address] PCP - General Family Medicine 07/07/21 documented as of this encounter
--- OUTSIDE RECORDS SUMMARY | 2024-07-30 16:03 | XMS_ITS | Encounter Summary ---
Author Organization [facility] Address [address] [place] [address] Care Team Providers Care Labor Relations Teacher Name Role Phone Avery Hidalgo DO Primary Care Provider [phone] Encounter Details Date Type Department Care Team (Latest Contact Info) Description 01/23/2019 12:52 PM CDT - 01/23/2019 11:59 PM T Hospital Encounter [facility] [address] [place] [address] Drew Orlando MD [address] [place] [id number] Nolan Orlando MD [address] [place] [address] [place] [phone] Discharge Disposition: Home or Self Care Social History Tobacco Use Types Packs/Day Years Used Date Smoking Tobacco: Never Smokeless Tobacco: Never Alcohol Use Standard Drinks/Week Comments Yes 0 (1 standard drink = 0.6 oz pur e alcohol) social - rare Sex and Gender Information Value Date Recorded Sex Assigned at Not on file Gender Identity Female 08/19/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 Case: [id number] ? Authorizing Provider: ??Drew Orlando MD ? Collected: ? 01/23/2019 07:45 AM ? Ordering Location: ? [facility] ?Received: ?01/23/2019 12:56 PM ? Pathologist: ? Yuni Younger MD ? Specimens: ?? A) - Cervix Conization, ecto cervix 12 oclock ? B) - Cervix Conization, endo cervix ? 01/25/2019 12:03 PM [facility] Final Diagnosis Uterus, cervix, conization: - High-grade squamous intraepithelial lesion (JOSE RAMON-2) - Margins negative for JOSE RAMON-2 Uterus, endocervix, excision: - No evidence of dysplasia or malignancy KL/na 01/25/2019 12:03 PM [facility] Clinical History HGSIL. 01/25/2019 12:03 PM [facility] Gross Description Specimen received in [...] B1 through B2. KL/me 01/25/2019 12:03 PM [facility] Microscopic Description Histologic sections of the cervix cone show cervix at the transition zone with chronic inflammation and areas of high-grade squamous intraepithelial lesion (JOSE RAMON-2). The margins are negative for high-grade dysplasia. There is no evidence of invasive malignancy. Histologic sections of the endocervix show benign endocervix with no evidence of dysplasia or malignancy. KL/na 01/25/2019 12:03 PM [facility] Disclaimer All histochemical and/or immunohistochemical results are interpreted with controls that demonstrate appropriate staining reactions before reporting results. Note on use of immunocytochemistry reagents: This test was developed and its performance characteristic determined by [facility], Department of Laboratory Medicine. It has not been cleared or approved by the U.S. Food and Drug Administration (FDA). The FDA has determined that such clearance or approval is not necessary. The test is used for clinical purpose. It should not be regarded as investigational or for research. This laboratory is certified to perform high complexity testing. 01/25/2019 12:03 PM [facility] Embedded Images 01/25/2019 12:03 PM [facility] Pathology/Cytology SPECIMEN FROM LESION OF UTERINE CERVIX OBTAINED BY CONE BIOPSY / Unknown 01/23/2019 7:45 AM CDT 01/23/2019 12:56 PM CDT Miscellaneous samples (specimen) SPECIMEN FROM LESION OF UTERINE CERVIX OBTAINED BY CONE BIOPSY / Unknown 01/23/2019 7:45 AM CDT 01/23/2019 12:56 PM CDT Nolan Orlando MD LAB - PATHOLOGY/CYTO LOGY ORDERABLES [facility] [address] [place], [place] [id number] documented in this encounter Visit Diagnoses Diagnosis Chronic left hip pain- Primary Pain in joint, pelvic region and thigh documented in this encounter Care Teams Labor Relations Teacher Relationship Specialty Start Date End Date Avery Hidalgo DO PCP - General Family Medicine 08/26/15 03/25/20 documented as of this encounter
--- OUTSIDE RECORDS SUMMARY | 2024-07-30 16:03 | XMS_ITS | Encounter Summary ---
Author Organization [facility] Address [address] [facility] [place] [address] Care Team Providers Care Fare Enforcement Officer Name Role Phone Avery Hidalgo DO Primary Care Provider [phone] Reason for Visit * Reason Comments Follow-up 3 MO Encounter Details Date Type Department Care Team (Latest Contact Info) Description 03/31/2017 11:30 AM CDT Office Visit [facility] - Internal Medicine [address] [place], [place] [id number] Avery Hidalgo DO [address] [place], [place] [id number] Gastroesophageal reflux disease, esophagitis presence not specified [...] file Gender Identity Female 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
--- OUTSIDE RECORDS SUMMARY | 2024-07-30 16:03 | XMS_ITS | Encounter Summary ---
Author Organization [facility] Address [address] [facility] [place] [address] Care Team Providers Care Regulator Tester Name Role Phone Molly Alvarado MD Primary Care Provider Reason for Visit * Auth/Cert - Closed Specialty Diagnoses / Procedures Referred By Contac t Referred To Contact Diagnoses Other symptoms involving digestive system(787.99) Loss of weight Procedures COLONOSCOPY DIAGNOSTIC ESOPHAGOGASTRODUODENOSCOPY (EGD) Referral ID Status Reason Start Date Expiration Date Visits Re quested Visits Authorized [id number] Closed 1 1 Encounter Details Date Type Department Care Team (Late st Contact Info) Description 04/19/2013 10:36 AM CDT Anesthesia Event [facility] - Endoscopy Surgery [address] [place] [address] Osei Archer MD [facility] [place] [address] Anesthesia Record Procedure Summary Procedure Name Responsible [...] file Gender Identity Female 08/19/2022 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 section 04/03/2011 ??? [place] tooth extraction reports that she has never [...] mg documented in this encounter Care Teams Regulator Tester Relationship Specialty Start Date End Date Molly Alvarado MD PCP - General Family Medicine 12/05/11 08/25/15 documented as of this encounter
--- OUTSIDE RECORDS SUMMARY | 2024-07-30 16:03 | XMS_ITS | Encounter Summary ---
Author Organization [facility] Address [address] [facility] [place] [address] Care Team Providers Care Import Specialist Name Role Phone Avery Hidalgo DO Primary Care Provider [phone] Reason for Visit * Reason Onset Date Comments Medication Request 03/03/2020 Encounter Details Date Type Department Care Team (Late st Contact Info) Description 03/03/2020 Telephone [facility] Medical [facility] - Family Medicine [address] [place] [address] Avery Hidalgo DO [address] [facility] [address] [place], [place] [id number] Medication Request Social History Tobacco Use Types Packs/Day Years Used Date Smoking Tobacco: Never Smokeless Tobacco: Never Alcohol Use Standard Drinks/Week Comments Yes 0 (1 standard drink = 0.6 oz pur e alcohol) social - rare Sex and Gender Information Value Date Recorded Sex Assigned at Not on file Gender Identity Female 08/19/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 She states the occupational health department at [employer] told her to contact her primary care physicianso they can send out a inhaler. I let patient know I would ask but she has not been seen in our office since 01/04/17. documented in this encounter Plan of Treatment Not on file documented as of this encounter Visit Diagnoses Not on filedocumented in this encounter Care Teams Import Specialist Relationship Specialty Start Date End Date Avery Hidalgo DO PCP - General Family Medicine 08/26/15 03/25/20 documented as of this encounter
--- OUTSIDE RECORDS SUMMARY | 2024-07-30 16:03 | XMS_ITS | Encounter Summary ---
Author Organization [facility] Address [address] [facility] [place] [address] Care Team Providers Care Web Engineer Name Role Phone Avery Hidalgo DO Primary Care Provider [phone] Reason for Visit * Reason Comments Pain Back c/o mid left back pa in. Father states, She has a lot of pain on her left side and she is very dizzy. 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 Patient Information ??[email or web address]. Shortness of Breath Shortness of breath means [...] Document Reviewed: 10/15/2012 ExitCare?? Patient Information ??[email or web address]. Near-Syncope Near-syncope (commonly known as near fainting) [...] Document Reviewed: 01/03/2014 ExitCare?? Patient Information ??[email or web address]. This information is not intended to replace [...] Document Reviewed: 05/31/2012 ExitCare?? Patient Information ??[email or web address]. documented in this encounter Medications at Time [...] with the patient: 12/04/2015 10:50 [facility]rena [id number] [facility] EMERGENCY DEPARTMENT History Chief Complaint [...] Procedure Laterality Date ??? section 04/03/2011 ??? [place] tooth extraction ??? Colonoscopy 04/19/2013 COLONOSCOPY DIAGNOSTIC [...] Yellow, Dark Yellow Clarity UA Clear Specific [place] UA 1.014 1.005-1.030 pH UA 8.5 (H) [...] 44.0-73.0 % Lymph 8.8 (L) 20.0-43.0 % [place] 5.3 5.0-13.0 % Eos 0.4 0.0-6.0 % Baso 0.2 0.0-2.0 % Immature Grans 0.4 0-1 % Neutro Abs 10.60 (H) 2.01-7.14 x10E9/L Lymph Abs 1.10 1.07-3.94 x10E9/L [place] Abs 0.66 0.26-1.07 x10E9/L Eosin Abs 0.05 [...] mL/min/1.73m2 MONONUCLEOSIS SCREEN Result Value Ref Range [place] Test Negative Negative HCG URINE QUALITATIVE - [...] with: Avery Hidalgo DO [address] [address] In 1 week [facility] Emergency Department [address] [facility] [address] If symptoms worsen I have reviewed the [...] MONONUCLEOSIS SCREEN (12/04/2015 12:57 PM CDT) Pathologist [facility] Mononucleosis Screen Negative Negative 12/04/2015 1:20 PM CDT [facility] Blood BLOOD SPECIMEN / Unknown 12/04/2015 12:57 PM CDT 12/04/2015 1:05 PM CDT Lydia Villaseñor MD LAB - CHEMISTRY TIFFANIE RALPHJESUS Performing Organization Address [facility] Co de Phone Number [facility] [address] [place] [address] * EKG 12-LEAD (12/04/2015 12:22 PM CDT) Ventricular Rate 99 BPM [facility] Atrial Rate 99 BPM [facility] P-R Interval 114 ms [facility] QRS Duration ms 94 ms [facility] Q-T Interval ms 340 ms [facility] QTC Calculation (Bezet) 436 ms [facility] Calculated P [place] 70 degrees [facility] Calculated R [place] 70 degrees [facility] Calculated T [place] 64 degrees [facility] Interpretation EKG Normal sinus rhythm RSR' or QR pattern in V1 suggests right ventricular conduction delay When compared with ECG of 02-MAR-2013 19:44, No significant change was found Confirmed by Solomon Lopez ([id number]) on 12/06/2015 10:48:05 AM [facility] MUSE 12/04/2015 12:2 2 PM CDT 12/06/2015 10:48 AM CDT Lydia Villaseñor MD ECG ORDERABLES Performing Organization Address City/[facility]/ZIP Co de Phone Number [facility] * HCG URINE QUALITATIVE - POINT OF CARE (IP) (12/04/2015 12:16 PM CDT) HCG Qual Urine Negative Negative [facility] POCT TESTING QC Verified Yes Yes [facility] POC T TESTING Urine specimen (specimen) URINE / Unknown 12/04/2015 12:16 PM CDT Lydia Villaseñor MD LAB - POINT OF CARE ORDERABLES [facility] POCT TESTING [address] [place], [place] [address] * CULTURE URINE (12/04/2015 12:04 PM CDT) Culture <10,000 CFU/mL urogenital colton KERVIN 12/06/2015 7:38 AM CDT [facility] MICROBIOLOGY Urine URINE SPECIMEN OBTAINED BY CLEAN CATCH PROCEDURE / Unknown 12/04/2015 12:04 PM CDT 12/04/2015 12:10 PM CDT Lydia Villaseñor MD LAB - MICROBIOLOGY O RDERABLES [facility] MICROBIOLOGY [address] [place] [phone] [place] [address] * (ABNORMAL) URINALYSIS ROUTINE W/REFLEX TO CULTURE (12/04/2015 12:04 PM CDT) Color UA Yellow Straw, Yellow, Dark Yellow 12/04/2015 12:19 PM CDT [facility] Clarity UA Clear 12/04/2015 12:19 PM CDT [facility] Specific [place] UA 1.014 1.005 - 1.030 12/04/2015 12:19 PM CDT [facility] pH UA 8.5(H) 5.0 - 8.0 pH 12/04/2015 12:19 PM CDT [facility] Protein UA Negative Negative 12/04/2015 12:19 PM CDT [facility] Blood UA Negative Negative 12/04/2015 12:19 PM CDT [facility] Leukocyte UA Trace(A) Negative 12/04/2015 12:19 PM CDT [facility] Nitrite UA Negative Negative 12/04/2015 12:19 PM CDT [facility] Glucose UA Negative Negative 12/04/2015 12:19 PM CDT [facility] Ketone UA Negative Negative 12/04/2015 12:19 PM CDT [facility] Bilirubin UA Negative Negative 12/04/2015 12:19 PM CDT [facility] Urobilinogen UA 0.2 0.1 - 1.0 EU/dL 12/04/2015 12:19 PM CDT [facility] WBC UA Auto 0-2 0-2, 2-5 # /hpf 12/04/2015 12:19 PM CDT [facility] RBC UA Auto 2-5 0-2, 2-5 # /hpf 12/04/2015 12:19 PM CDT [facility] Epithelial Cell UA Auto 2-5 0-2, 2-5 # /hpf 12/04/2015 12:19 PM CDT [facility] Bacteria UA Auto 1+(A) None seen 12/04/2015 12:19 PM CDT [facility] Reflex Status Culture to follow 12/04/2015 12:19 PM T [facility] Urine URINE SPECIMEN OBTAINED BY CLEAN CATCH PROCEDURE / Unknown 12/04/2015 12:04 PM CDT 12/04/2015 12:10 PM CDT Lydia Villaseñor MD LAB - URINALYSIS ORD ERABLES [facility] [address] [place] [address] * XR CHEST 1VW PORTABLE (12/04/2015 12:02 [...] 74 - 106 mg/dL 12/04/2015 12:05 PM [facility] Sodium 139 136 - 145 mmol/L 12/04/2015 12:05 PM [facility] Potassium 3.4(L) 3.5 - 5.1 mmol/L 12/04/2015 12:05 PM [facility] Chloride 108(H) 98 - 107 mmol/L 12/04/2015 12:05 PM [facility] CO2 23 22 - 31 mmol/L 12/04/2015 12:05 PM [facility] Calcium 8.6 8.5 - 10.1 mg/dL 12/04/2015 12:05 PM [facility] Anion Gap 8 5 - 20 mmol/L 12/04/2015 12:05 PM [facility] BUN 9 7 - 21 mg/dL 12/04/2015 12:05 PM [facility] Creatinine 0.82 0.50 - 1.30 mg/dL 12/04/2015 12:05 PM [facility] Alkaline Phosphatase 107 38 - 126 U/L 12/04/2015 12:05 PM [facility] ALT 17 12 - 78 U/L 12/04/2015 12:05 PM [facility] AST 13 5 - 40 U/L 12/04/2015 12:05 PM [facility] Protein Total 7.6 6.4 - 8.2 gm/dL 12/04/2015 12:05 PM [facility] Albumin 3.9 3.4 - 5.0 gm/dL 12/04/2015 12:05 PM [facility] Bilirubin Total 0.4 0.2 - 1.0 mg/dL 12/04/2015 12:05 PM [facility] eGFR by MDRD >60 >60 mL/min/1.7 3m2 12/04/2015 12:05 PM [facility] eGFR by MDRD >60 >60 mL/min/1.7 3m2 12/04/2015 12:05 PM CDT [facility] Blood BLOOD SPECIMEN / Unknown 12/04/2015 11:38 AM CDT 12/04/2015 11:47 AM CDT Lydia Villaseñor MD LAB - CHEMISTRY TIFFANIE WILLS [facility] Organization Address City/State/ZIP Co de Phone Number [facility] [address] [place] [address] * (ABNORMAL) CBC W AUTO DIFFERENTIAL (12/04/2015 11:38 AM CDT) WBC 12.5(H) 4.4 - 10.7 x10E9/L 12/04/2015 11:51 AM CDT [facility] WBC Corrected x10E9/L 12/04/2015 11:51 AM CDT [facility] RBC 4.47 3.80 - 5.20 x10E12/L 12/04/2015 11:51 AM CDT [facility] Hemoglobin 13.3 12.0 - 15.6 gm/dL 12/04/2015 11:51 AM CDT [facility] Hematocrit 37.7 35.9 - 45.5 % 12/04/2015 11:51 AM CDT [facility] MCV 84.3 80.7 - 98.3 fl 12/04/2015 11:51 AM CDT [facility] MCH 29.8 26.7 - 34.0 pg 12/04/2015 11:51 AM CDT [facility] MCHC 35.3 30.8 - 35.9 gm/dL 12/04/2015 11:51 AM CDT [facility] Platelet Count 232 153 - 416 x10E9/L 12/04/2015 11:51 AM CDT [facility] RDW-CV 12.3 12.1 - 14.9 % 12/04/2015 11:51 AM CDT [facility] MPV 10.9 9.4 - 12.9 fl 12/04/2015 11:51 AM CDT [facility] Neutrophils % 84.9(H) 44.0 - 73.0 % 12/04/2015 11:51 AM CDT [facility] Lymphocytes % 8.8(L) 20.0 - 43.0 % 12/04/2015 11:51 AM CDT [facility] Monocytes % 5.3 5.0 - 13.0 % 12/04/2015 11:51 AM CDT [facility] Eosinophils % 0.4 0.0 - 6.0 % 12/04/2015 11:51 AM CDT [facility] Basophils % 0.2 0.0 - 2.0 % 12/04/2015 11:51 AM CDT [facility] Immature Granulocytes 0.4 0 - 1 % 12/04/2015 11:51 AM CDT [facility] Neutrophil Absolute 10.60(H) 2.01 - 7.14 x10E9/L 12/04/2015 11:51 AM CDT [facility] Lymphocytes Absolute 1.10 1.07 - 3.94 x10E9/L 12/04/2015 11:51 AM CDT [facility] Monocytes Absolute 0.66 0.26 - 1.07 x10E9/L 12/04/2015 11:51 AM CDT [facility] Eosinophils Absolute 0.05 0 - 0.47 x10E9/L 12/04/2015 11:51 AM CDT [facility] Basophils Absolute 0.03 0 - 0.08 x10E9/L 12/04/2015 11:51 AM T [facility] Immature Granulocytes Absolute 0.05 0.00 - 0.06 x10E9/L 12/04/2015 11:51 AM CDT [facility] nRBC Auto 0 /100 WBC 12/04/2015 11:51 AM T [facility] Blood BLOOD SPECIMEN / Unknown 12/04/2015 11:38 AM CDT 12/04/2015 11:47 AM CDT Lydia Villaseñor MD LAB - HEMATOLOGY ORD ERABLES [facility] [address] [place] [address] [...] RN) documented in this encounter Care Teams Web Engineer Relationship Specialty Start Date End Date Avery Hidalgo DO PCP - General Family Medicine 08/26/15 03/25/20 documented as of this encounter
--- OUTSIDE RECORDS SUMMARY | 2024-07-30 16:03 | XMS_ITS | Encounter Summary ---
Author Organization [facility] Address [address] [facility] [place] [address] Care Team Providers Care Online Marketing Strategist Name Role Phone Avery Hidalgo DO Primary Care Provider [phone] Reason for Visit * Reason Onset Date Comments Scheduling 08/18/2016 Encounter Details Date Type Department Care Team (Late st Contact Info) Description 08/18/2016 Telephone [facility] Medical [facility] - Urology [address] [facility] [address] [place] [address] MastromicDakotah gambino MD [address] [facility] [address] [place] [address] Scheduling Social History Tobacco Use Types Packs/Day Years Used Date Smoking Tobacco: Never Smokeless Tobacco: Never Alcohol Use Standard Drinks/Week Comments Yes 0 (1 standard drink = 0.6 oz pur e alcohol) social - rare Sex and Gender Information Value Date Recorded Sex Assigned at Not on file Gender Identity Female 08/19/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 Returned call and left message to reschedule patient. TENANCE MILLWRIGHT documented in this encounter Plan of Treatment Not on file documented as of this encounter Visit Diagnoses Not on filedocumented in this encounter Care Teams Online Marketing Strategist Relationship Specialty Start Date End Date Avery Hidalgo DO PCP - General Family Medicine 08/26/15 03/25/20 documented as of this encounter
--- OUTSIDE RECORDS SUMMARY | 2024-07-30 16:03 | XMS_ITS | Encounter Summary ---
Author Organization [facility] Address [address] [facility] [address] Care Team Providers Care Abrasive Worker Name Role Phone Azar Braxton MD Primary Care Provider [phone] Azar Braxton MD Unavailable [phone] Reason for Visit * Reason Comments Palpitations 6-8 months RAPID HEART RATE Encounter Details Date Type Department Care Team (Late st Contact Info) Description 08/19/2022 2:30 PM PENSION ADVISER Office Visit [facility] Medical [facility] - Family Medicine [address] [place] [address] Molly Angeles, MAINTENANCE DATA ANALYST-[facility] [address] [place] [address] Palpitations (Primary Dx) Social History Tobacco Use [...] file Gender Identity Female 08/19/2022 7:56 AM PENSION ADVISER Sexual Orientation Not on file COVID-19 Exposure Response Date Recorded In the last 10 days, have yo u been in contact with someone who was confirmed or suspected to have Coronavirus/COVID-19? No / Unsure 08/18/2022 10:37 AM PENSION ADVISER documented as of this encounter Last Filed Vital Signs Vital Sign Reading Time Taken Comments Blood Pressure 121/78 08/19/2022 2:34 PM PENSION ADVISER Pulse 94 08/19/2022 2:34 PM PENSION ADVISER Temperature - - Respiratory Rate 20 08/19/2022 2:34 PM PENSION ADVISER Oxygen Saturation 99% 08/19/2022 2:34 PM PENSION ADVISER Inhaled Oxygen Concentration - - Weight 60.9 kg (134 lb 3.2 oz) 08/19/2022 2:34 P M PENSION ADVISER Height 154.9 cm (5' 1 ) 08/19/2022 2:34 PM PENSION ADVISER Body Mass Index 25.36 08/19/2022 2:34 PM PENSION ADVISER documented in this encounter Progress Notes * Molly Angeles, MAINTENANCE DATA ANALYST-[facility] - 08/19/2022 2:30 PM CST SUBJECTIVE Chief [...] persistent dizziness - EKG 12-LEAD; Future - IA ELECTROCARDIOGRAM, COMPLETE - TSH REFLEX FREE T4 [...] is intact. Psychiatric: Behavior: Behavior is cooperative. ION ADVISER documented in this encounter Plan of Treatment Not on file documented as of this encounter Procedures Procedure Name Priority Date/Time Associated Diagnosis Comments CBC W AUTO DIFFERENTIAL Routine 08/19/2022 3:05 PM PENSION ADVISER Palpitations TSH REFLEX FREE T4 Routine 08/19/2022 3: 04 PM PENSION ADVISER Palpitations COMPREHENSIVE METABOLIC PANEL Routine 08/19/2022 3:04 PM PENSION ADVISER Palpitations documented in this encounter Results * (ABNORMAL) CBC WITH DIFFERENTIAL (08/19/2022 3:05 PM PENSION ADVISER) WBC 5.6 4.4 - 10.7 x10E9/L [facility] [...] x10E9/L [facility] INSURANCE BILL Comment:MPV FL BLOOD ([facility]) 10.4 fl 9.4-12.9 Granulocytes % 28.7(L) 44.0 [...] BLOOD SPECIMEN / Unknown 08/19/2022 3:05 PM PENSION ADVISER 08/19/2022 Narrative Resulting Agency Comment Lab Testing performed at: [address] ?? [place] [id number] Molly Angeles MAINTENANCE DATA ANALYST-[facility] - HEMATO LOGY ORDERABLES [facility] INSURANCE BILL [address] [place] [address] * (ABNORMAL) COMPREHENSIVE METABOLIC PANEL (08/19/2022 3:04 PM PENSION ADVISER) [facility] Signature Glucose 121(H) 70 - 105 [...] BLOOD SPECIMEN / Unknown 08/19/2022 3:04 PM PENSION ADVISER 08/19/2022 Narrative Resulting Agency Comment Lab Testing performed at: [address] ?? [place] [id number] Molly Angeles MAINTENANCE DATA ANALYST-[facility] - CHEMIS TRY ORDERABLES [facility] INSURANCE BILL [address] [place] [address] * TSH REFLEX FREE T4 (08/19/2022 3:04 PM PENSION ADVISER) TSH 0.721 0.350 - 4.940 uIU/mL [facility] INSURANCE BILL Blood BLOOD SPECIMEN / Unknown 08/19/2022 3:04 PM PENSION ADVISER 08/19/2022 Narrative Resulting Agency Comment Lab Testing performed at: [address] ?? [place] [id number] Molly Romanof MAINTENANCE DATA ANALYST-[facility] - CHEMIS TRY ORDERABLES [facility] INSURANCE BILL [address] [place] [address] documented in this encounter Visit Diagnoses Diagnosis Palpitations- Primary documented in this encounter Care Teams Abrasive Worker Relationship Specialty Start Date End Date Azar Braxton MD [address] [address] PCP - General Family Medicine 07/07/21 Azar Braxton MD [address] [address] PCP - Attributed-[employer] 11/12/21 08/31/22 documented as of this encounter
--- OUTSIDE RECORDS SUMMARY | 2024-07-30 16:04 | XMS_ITS | Encounter Summary ---
Author Organization [facility] Address [address] [place] [address] Care Team Providers Care Rewinder Operator Name Role Phone Geo Duff MD Primary Care Provider [phone] Encounter Details Date Type Department Care Team ([facility] Contact Info) Description 07/16/2024 External Device Data [...] as of this encounter Plan of Treatment Upcoming Encounters Date Type Department Care Team (Late Contact Info) Description 08/08/2024 1:40 PM DELIVERY DRIVER Office Visit [facility] GASTROENTEROLOGY - [address] [facility] [address] [address] [facility] [facility] [address] [place] [address] [place] [address] [facility] [address] [place] [address] documented as of this encounter Visit Diagnoses Not on filedocumented in this encounter Care Teams Rewinder Operator Relationship Specialty Start Date End Date Geo Duff MD [facility] [address] PCP - General Family Practice 07/07/24 documented as of this encounter
--- OUTSIDE RECORDS SUMMARY | 2024-07-30 16:04 | XMS_ITS | Encounter Summary ---
Author Organization [facility] Address [address] [place] [address] Care Team Providers Care Mobile Security Architect Name Role Phone Dona Beyer MD Primary Care Provider [phone] Encounter Details Date Type Department Care Team [...] Encounters Date Type Department Care Team (Late st Contact Info) Description 08/08/2024 1:40 PM TIP PUNCHER Office Visit [facility] GASTROENTEROLOGY - [address] [facility] [address] [address] [facility] [address] [place] [address] [place] [address] [facility] [address] [place] [address] documented as of this encounter Visit Diagnoses Not on filedocumented in this encounter Care Teams Mobile Security Architect Relationship Specialty Start Date End Date Dona Beyer MD PCP - General Retreader 05/14/20 07/06/24 documented as of this encounter
--- OUTSIDE RECORDS SUMMARY | 2024-07-30 16:04 | XMS_ITS | Encounter Summary ---
Author Organization [facility] Address [address] [facility] [place] [address] Care Team Providers Care Energy Projects Lead Name Role Phone Daja Orr MD Primary Care Provider [phone] Reason for Visit * Reason Onset Date Comments Medication Request 08/29/2011 Encounter Details Date Type Department Care Team (Late st Contact Info) Description 08/29/2011 Telephone [facility] - Family Medicine [id number] [place] [address] [address] [place] [address] [place] [address] [facility] [address] [place] [address] Medication Request Social History Tobacco Use Types Packs/Day Years Used Date Smoking Tobacco: Never Alcohol Use Standard Drinks/Week Comments Yes 0 (1 standard drink = 0.6 oz pur e alcohol) social Sex and Gender Information Value Date Recorded Sex Assigned at Not on file Gender Identity Female 08/19/2022 7:56 AM SHUCKER Sexual Orientation Not on file documented as of this encounter Miscellaneous Notes * Telephone Encounter - Nelli Slater - 08/29/2011 4:14 PM CST Patient called back. Asked patient if she had the HIDA scan done yet, she said no it wasn't scheduled until later this month. Advised patient of Beckys response. Patient said she would find a new doctor and hung up. KER * Telephone Encounter - Jyoti Lugo V - 08/29/2011 2:40 PM CST Left message for pt to call office KER * Telephone Encounter - Cherelle Mason FNP - 08/29/2011 11:58 AM SHUCKER If she would like, she could also see a GI specialist, either Dr. Saavedra or Dr. Schreiber. KER * Telephone Encounter - Cherelle Mason FNP - 08/29/2011 11:50 AM SHUCKER She was to have had a HIDA scan done, but I cannot find that she did, it still says future in the orders and there are no scanned reports under the media tab. If she is still having problems she needs to make a follow up with Dr. Orr. I would not give her the remeron. She needs to see Dr. Orr. KER * Telephone Encounter - Jyoti Lugo V - 08/29/2011 11:40 AM CST Pt saw Itzmelissalayla 08-02-2011. Pt was in for nausea, which has subsided to a large degree. Pt has lost weight and is concerned. Pt previously used Remeron due to weight loss. She is asking for a script for this. Can this be done? she took the lowest dose. Please advise KER documented in this encounter Plan of Treatment Not on file documented as of this encounter Visit Diagnoses Not on filedocumented in this encounter Care Teams Energy Projects Lead Relationship Specialty [place] [id number] [address] PCP - General Internal Medicine 06/17/11 12/04/11 documented as of this encounter
--- OUTSIDE RECORDS SUMMARY | 2024-07-30 16:04 | XMS_ITS | Encounter Summary ---
Author Organization [facility] Address [address] [place] [address] Care Team Providers Care Therapy Director Name Role Phone Daja Orr MD Primary Care Provider [phone] Reason for Visit * Reason Onset Date Comments Results 08/03/2011 Encounter Details Date Type Department Care Team (Late st Contact Info) Description 08/03/2011 Telephone [facility] Medical [facility] - Family Medicine [address] [facility] [address] [place] [address] [place] [address] [facility] [address] [place] [address] Results Social History Tobacco Use Types Packs/Day Years Used Date Smoking Tobacco: Never Alcohol Use Standard Drinks/Week Comments Yes 0 (1 standard drink = 0.6 oz pur e alcohol) social Sex and Gender Information Value Date Recorded Sex Assigned at Not on file Gender Identity Female 08/19/2022 7:56 AM COMPENSATION ADJUSTER Sexual Orientation Not on file documented as of this encounter Miscellaneous Notes * Telephone Encounter - Jyoti Dailey MA - 08/03/2011 4:04 PM CST Spoke to pt ENSATION ADJUSTER * Telephone Encounter - Jyoti Lugo V - 08/03/2011 3:58 PM CST Pt calling for results of US and labs. Please call ENSATION ADJUSTER documented in this encounter Plan of Treatment Not on file documented as of this encounter Visit Diagnoses Not on filedocumented in this encounter Care Teams Therapy Director Relationship Specialty Start [place] [address] [id number] PCP - General Internal Medicine 06/17/11 12/04/11 documented as of this encounter
--- OUTSIDE RECORDS SUMMARY | 2024-07-30 16:04 | XMS_ITS | Encounter Summary ---
Author Organization [facility] Address [address] [place] [address] Care Team Providers Care Modeling Director Name Role Phone Daja Orr MD Primary Care Provider [phone] Encounter Details Date Type Department Care Team (Late st Contact Info) Description 08/04/2011 Orders Only [facility] - Family Medicine [id number] [place] [address] [address] [place] [address] [place] [address] [facility] [address] [place] [address] Social History Tobacco Use Types Packs/Day Years Used Date Smoking Tobacco: Never Alcohol Use Standard Drinks/Week Comments Yes 0 (1 standard drink = 0.6 oz pur e alcohol) social Sex and Gender Information Value Date Recorded Sex Assigned at Not on file Gender Identity Female 08/19/2022 7:56 AM [employer]I [employer]BER Sexual Orientation Not on file documented as of this encounter Plan of Treatment Not on file documented as of this encounter Visit Diagnoses Not on filedocumented in this encounter Care Teams Modeling Director Relationship Specialty Start [place] [address] [facility] [address] [place] [address] PCP - General Internal Medicine 06/17/11 12/04/11 documented as of this encounter
--- OUTSIDE RECORDS SUMMARY | 2024-07-30 16:04 | XMS_ITS | Clinical Summary ---
Author Organization [facility] Address [address] [place] [address] Care Team Providers Care Boot Trimmer Name Role Phone Geo Duff MD Primary Care Provider Allergies Active Allergy Reactions [...] STL ABSTRACTION Provider, Abstract 07/08/2024 3:48 AM SENIOR JAVA WEB APPLICATION DEVELOPER - 07/08/2024 4:13 PM [facility] Emergency [facility] Medical [address] [address] [place] [address] Matthew Steve MD Bogachenchu, Sreenivasulu, MD Odibi, Chizor, MD Intractable nausea and vomiting Discharge Disposition: Home or Self Care 07/07/2024 Travel 07/06/2024 11:00 PM SENIOR JAVA WEB APPLICATION DEVELOPER - 07/07/2024 2:42 AM [facility] Emergency [facility] Emergency Services [address] [address] [place] [address] Matthew Steve MD Chest pain with low [...] Comments Blood Pressure 111/63 07/08/2024 12:00 PM SENIOR JAVA WEB APPLICATION DEVELOPER Pulse 100 07/08/2024 12:00 PM SENIOR JAVA WEB APPLICATION DEVELOPER Temperature 36.9 ??C (98.4 ??F) 07/08/2024 12:[address] Respiratory Rate 18 07/08/2024 12:00 PM SENIOR JAVA WEB APPLICATION DEVELOPER Oxygen Saturation 100% 07/08/2024 12:00 PM SENIOR JAVA WEB APPLICATION DEVELOPER Inhaled Oxygen Concentration - - Weight 63.5 kg (140 lb) 07/08/2024 6:46 AM SENIOR JAVA WEB APPLICATION DEVELOPER Height 154.9 cm (5' 1 ) 07/08/2024 6:46 AM SENIOR JAVA WEB APPLICATION DEVELOPER Body Mass Index 26.45 07/08/2024 6:46 AM SENIOR JAVA WEB APPLICATION DEVELOPER Plan of Treatment Upcoming Encounters Date Type Department Care Team (Late st Contact Info) Description 08/08/2024 1:40 PM SENIOR JAVA WEB APPLICATION DEVELOPER Office Visit [facility] GASTROENTEROLOGY - [address] [facility] 102 [address] [facility] [address] [place] [address] [place] [address] [facility] [address] [place] [address] Health Maintenance Due Date Last Done Comments HEPATITIS B VACCINES (1 of 3 - 19+ 3-dose series) 2003 COVID-19 Vaccine (4 - season) 2024 06/21/2023, 12/25/2020, 11/12/2020 BREAST CANCER [...] ABDOMEN LIMITED Stat 07/08/2024 7: 30 AM SENIOR JAVA WEB APPLICATION DEVELOPER EKG 12-LEAD Stat 07/08/2024 6:13 AM SENIOR JAVA WEB APPLICATION DEVELOPER CT ABDOMEN PELVIS W CONTRAST Stat 07/08/2024 5:07 AM SENIOR JAVA WEB APPLICATION DEVELOPER HCG QUALITATIVE, SERUM Stat 07/08/2024 4:17 AM SENIOR JAVA WEB APPLICATION DEVELOPER PHOSPHORUS Routine 07/08/2024 4:08 AM SENIOR JAVA WEB APPLICATION DEVELOPER C-REACTIVE PROTEIN Stat 07/08/2024 4: 08 AM SENIOR JAVA WEB APPLICATION DEVELOPER PROCALCITONIN Stat 07/08/2024 4:08 AM SENIOR JAVA WEB APPLICATION DEVELOPER MAGNESIUM LEVEL Stat 07/08/2024 4:08 AM SENIOR JAVA WEB APPLICATION DEVELOPER LIPASE Stat 07/08/2024 4:08 AM SENIOR JAVA WEB APPLICATION DEVELOPER COMPREHENSIVE METABOLIC PANEL Stat 07/08/2024 4:08 AM SENIOR JAVA WEB APPLICATION DEVELOPER CBC WITH DIFFERENTIAL Stat 07/08/2024 4:08 AM SENIOR JAVA WEB APPLICATION DEVELOPER HEMOGLOBIN A1C Stat 07/06/2024 11:55 PM SENIOR JAVA WEB APPLICATION DEVELOPER LIPASE Stat 07/06/2024 11:55 PM SENIOR JAVA WEB APPLICATION DEVELOPER EXTRA TUBE (BLUE) Stat 07/06/2024 11: 55 PM SENIOR JAVA WEB APPLICATION DEVELOPER EXTRA TUBE Stat 07/06/2024 11:55 PM SENIOR JAVA WEB APPLICATION DEVELOPER COMPREHENSIVE METABOLIC PANEL Stat 07/06/2024 11:55 PM SENIOR JAVA WEB APPLICATION DEVELOPER CBC WITH DIFFERENTIAL Stat 07/06/2024 11:55 PM SENIOR JAVA WEB APPLICATION DEVELOPER TROPONIN BASELINE, 5TH GEN Stat 07/06/2024 11:55 PM SENIOR JAVA WEB APPLICATION DEVELOPER EKG 12-LEAD Stat 07/06/2024 10:58 PM SENIOR JAVA WEB APPLICATION DEVELOPER CERV/VAG CYTO SCREEN PAP W/HPV Routine 04/07/2022 12:00 AM CDT Well woman exam with routine gynecological exam from Last 3 Months or Most Recently Relevant to Health Maintenance Results * US ABDOMEN LIMITED (07/08/2024 7:30 AM SENIOR JAVA WEB APPLICATION DEVELOPER) Anatomical Region Laterality Modality Abdomen Ultrasound 07/08/2024 7:36 AM SENIOR JAVA WEB APPLICATION DEVELOPER Impressions 07/08/2024 8:05 AM SENIOR JAVA WEB APPLICATION DEVELOPER IMPRESSION: 1. Mild abnormal echogenicity of the liver which can be seen with steatosis or other diffuse hepatocellular process. This limits the sensitivity for the detection of hepatic masses. 2. Unremarkable gallbladder. DICTATION LOCATION: Location [facility] Azra Almazan Narrative 07/08/2024 8:05 AM SENIOR JAVA WEB APPLICATION DEVELOPER US ABDOMEN LIMITED DATE: 07/08/2024 7:30 AM HISTORY: 39-year-old female with nausea and vomiting TECHNIQUE: Limited right upper quadrant ultrasound performed by an automation technologist in multiple projections. COMPARISON: None FINDINGS: [...] right upper quadrant ultrasound performed by an automation technologist in multiple projections. COMPARISON: None FINDINGS: [...] 2. Unremarkable gallbladder. DICTATION LOCATION: Location 9 - [facility] Jagruti Lim MD ORDERABLE S * EKG 12-LEAD (07/08/2024 6:13 AM SENIOR JAVA WEB APPLICATION DEVELOPER) Only the most recent of2 resultswithin the time period is included. 07/08/2024 6:13 AM SENIOR JAVA WEB APPLICATION DEVELOPER Narrative INTERFACE SYSTEM - 07/08/2024 4:50 PM SENIOR JAVA WEB APPLICATION DEVELOPER ? [facility] OPI ? [address], [place] [address] ? Test Date: ?2024-07-08 Pat Name: ? CAMMA PATRICE ? Department: ?? 25 ?Room: ? 2114 Gender: ? Female ? 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 : ?1985 ? Requested By: MATTHEW Leach Order Number: [id number] ? Reading MD: ?? Sushruth Edla ? Measurements Intervals ?Tolar ? Rate: ? 63 ? P: ?60 IL: ? 117 ?QRS: ?50 QRSD: ? 90 ? T: ?70 QT: ? 434 ? QTc: ?445 ? Interpretive Statements SINUS RHYTHM WITH SHORT IL INTERVAL POSSIBLE LEFT ATRIAL ENLARGEMENT ??[-0.1mV P-WAVE IN V1/V2] POSSIBLE RIGHT VENTRICULAR CONDUCTION DELAY ??[RSR (QR) IN V1/V2] Electronically Signed On 07-08-2024 16:50:49 SENIOR JAVA WEB APPLICATION DEVELOPER by Saud Fonseca Procedure Note Saud Fonseca MD - 07/08/2024 [facility] OPI [address], [place] [address] Test Date: 2024-07-08 Pat Name: CATA IBRAHIM Department: 25 Room: [facility] Gender: Female Transport [employer] Officer: : 1985 Requested By: MATTHEW Leach Order Number: [id number] Arianna MD: Saud Fonseca Measurements Intervals Tolar Rate: 63 P: 60 IL: 117 QRS: 50 QRSD: 90 T: 70 QT: 434 QTc: 445 Interpretive Statements SINUS RHYTHM WITH SHORT IL INTERVAL POSSIBLE LEFT ATRIAL ENLARGEMENT [-0.1mV P-WAVE IN V1/V2] POSSIBLE RIGHT VENTRICULAR CONDUCTION DELAY [RSR (QR) IN V1/V2] Electronically Signed On 07-08-2024 16:50:49 SENIOR JAVA WEB APPLICATION DEVELOPER by Saud Fonseca Jagruti Lim MD ECG ORDERABL ES INTERFACE SYSTEM Refer to clinic/hospital department * CT ABDOMEN PELVIS W CONTRAST (07/08/2024 5:07 AM SENIOR JAVA WEB APPLICATION DEVELOPER) Anatomical Region Laterality Modality Abdomen Computed Tomogra phy 07/08/2024 5:08 AM SENIOR JAVA WEB APPLICATION DEVELOPER Impressions 07/08/2024 5:15 AM SENIOR JAVA WEB APPLICATION DEVELOPER IMPRESSION: 1. Chronic wall thickening likely related to lack of distention. 2. No acute changes. DICTATION LOCATION: Location 7 [facility] 07/08/2024 5:15 AM SENIOR JAVA WEB APPLICATION DEVELOPER CT ABDOMEN AND PELVIS WITH IV CONTRAST [...] distention. 2. No acute changes. DICTATION LOCATION: [address] Matthew Steve MD CT ORDERABLES * HCG QUALITATIVE, BLOOD (07/08/2024 4:17 AM SENIOR JAVA WEB APPLICATION DEVELOPER) HCG QUAL, BLOOD Negative Negative, Indeterminate 07/08/2024 4:46 AM SENIOR JAVA WEB APPLICATION DEVELOPER [facility] LABORATORY [facility] Blood Collection / Unknown 07/08/2024 4:17 AM SENIOR JAVA WEB APPLICATION DEVELOPER 07/08/2024 4:36 AM SENIOR JAVA WEB APPLICATION DEVELOPER Justice [facility] - 07/08/2024 4:46 AM SENIOR JAVA WEB APPLICATION DEVELOPER hCG sensitive to as little as 10 mIU/mL for serum. Matthew Steve MD CHEMISTRY ORDERABLES [facility] Sarata [facility] CLIA # [id number] [facility] [address] [place] [address] * PROCALCITONIN (07/08/2024 4:08 AM SENIOR JAVA WEB APPLICATION DEVELOPER) [facility] PROCALCITONIN 0.03 <=0.25 ng/mL 07/08/2024 6:11 AM [facility] Blood Collection / Unknown 07/08/2024 4:08 AM SENIOR JAVA WEB APPLICATION DEVELOPER 07/08/2024 4:18 AM SENIOR JAVA WEB APPLICATION DEVELOPER [facility] Sarata [facility] - 07/08/2024 6:11 AM SENIOR JAVA WEB APPLICATION DEVELOPER The utility of procalcitonin is limited/NOT recommended [...] hours. Jagruti Lim MD CHEMISTRY OR DERABLES [facility] LABORATORY SERVICES - [place] CLIA # [id number] [facility] [address] [place] [address] * (ABNORMAL) CBC WITH DIFFERENTIAL (07/08/2024 4:08 AM SENIOR JAVA WEB APPLICATION DEVELOPER) Only the most recent of2 resultswithin the time period is included. WBC 12.9(H) 4.0 - 11.0 K/uL 07/08/2024 4:15 AM [facility] Sarata SERVICES [facility] RBC 4.80 4.20 - 5.40 M/uL 07/08/2024 4:15 AM [facility] Sarata [facility] HEMOGLOBIN 14.4 11.9 - 15.1 g/dL 07/08/2024 4:15 AM [facility] Sarata [facility] HEMATOCRIT 42.3 38.0 - 47.0 % 07/08/2024 4:15 AM [facility] Sarata [facility] MCV 88.1 80.0 - 98.0 fL 07/08/2024 4:15 AM [facility] Sarata [facility] MCH 30.0 26.0 - 34.0 pg 07/08/2024 4:15 AM [facility] Sarata [facility] MCHC 34.0 31.0 - 37.0 g/dL 07/08/2024 4:15 AM [facility] Sarata [facility] [place] RDW 13.1 11.5 - 14.5 % 07/08/2024 4:15 AM [facility] Sarata [facility] [place] RDW-STDEV 42.6 34.0 - 54.0 fL 07/08/2024 4:15 AM [facility] Sarata [facility] PLATELETS 413(H) 150 - 400 K/uL 07/08/2024 4:15 AM [facility] Sarata [facility] MPV 10.6 8.5 - 12.5 fL 07/08/2024 4:15 AM SENIOR JAVA WEB APPLICATION DEVELOPER [facility] NEUTROPHILS 84(H) 50 - 70 % 07/08/2024 4:15 AM SENIOR JAVA WEB APPLICATION DEVELOPER [facility] LYMPHOCYTES 14(L) 20 - 40 % 07/08/2024 4:15 AM SENIOR JAVA WEB APPLICATION DEVELOPER [facility] MONOCYTES 2 2 - 8 % 07/08/2024 4:15 AM SENIOR JAVA WEB APPLICATION DEVELOPER [facility] EOSINOPHILS 0(L) 1 - 3 % 07/08/2024 4:15 AM SENIOR JAVA WEB APPLICATION DEVELOPER [facility] BASOPHILS 0 0 - 1 % 07/08/2024 4:15 AM SENIOR JAVA WEB APPLICATION DEVELOPER [facility] IMMATURE GRANULOCYTES 0 0 - 2 % 07/08/2024 4:15 AM SENIOR JAVA WEB APPLICATION DEVELOPER [facility] NEUTROPHIL ABSOLUTE 10.87(H) 1.80 - 7.70 K/uL 07/08/2024 4:15 AM SENIOR JAVA WEB APPLICATION DEVELOPER [facility] LYMPHOCYTE ABSOLUTE 1.75 1.00 - 3.30 K/uL 07/08/2024 4:15 AM SENIOR JAVA WEB APPLICATION DEVELOPER [facility] MONOCYTE ABSOLUTE 0.22 0.00 - 0.80 K/uL 07/08/2024 4:15 AM SENIOR JAVA WEB APPLICATION DEVELOPER [facility] EOSINOPHIL ABSOLUTE 0.00 0.00 - 0.45 K/uL 07/08/2024 4:15 AM SENIOR JAVA WEB APPLICATION DEVELOPER [facility] BASOPHILS ABSOLUTE 0.03 0.00 - 0.20 K/uL 07/08/2024 4:15 AM SENIOR JAVA WEB APPLICATION DEVELOPER [facility] IMMATURE GRANULOCYTES ABSOLUTE 0.05 0.00 - 0.31 K/uL 07/08/2024 4:15 AM SENIOR JAVA WEB APPLICATION DEVELOPER [facility] Blood Collection / Unknown 07/08/2024 4:08 AM SENIOR JAVA WEB APPLICATION DEVELOPER 07/08/2024 4:14 AM SENIOR JAVA WEB APPLICATION DEVELOPER Matthew Steve MD HEMATOLOGY ORDERABLE S [facility] CLIA # [id number] [address] [place] [address] * (ABNORMAL) C-REACTIVE PROTEIN (07/08/2024 4:08 AM SENIOR JAVA WEB APPLICATION DEVELOPER) CRP 7.4(H) <=5.0 mg/L 07/08/2024 6:10 AM SENIOR JAVA WEB APPLICATION DEVELOPER [facility] Blood Collection / Unknown 07/08/2024 4:08 AM SENIOR JAVA WEB APPLICATION DEVELOPER 07/08/2024 4:18 AM SENIOR JAVA WEB APPLICATION DEVELOPER Jagruti Lim MD CHEMISTRY OR DERABLES Performing Organization Address City/[facility]/ZIP Co de Phone Number [facility] CLIA # [id number] [address] [address] * (ABNORMAL) PHOSPHORUS (07/08/2024 4:08 AM SENIOR JAVA WEB APPLICATION DEVELOPER) Pathologist [facility] PHOSPHORUS 1.1(L) 2.5 - 4.5 mg/dL 07/08/2024 9:43 AM SENIOR JAVA WEB APPLICATION DEVELOPER [facility] Blood Collection / Unknown 07/08/2024 4:08 AM SENIOR JAVA WEB APPLICATION DEVELOPER 07/08/2024 4:18 AM SENIOR JAVA WEB APPLICATION DEVELOPER Anabel Philip MD CHEMISTRY ORDERABLES Performing Organization Address [facility] Co de Phone Number [facility] CLIA # [id number] [address] [address] * MAGNESIUM LEVEL (07/08/2024 4:08 AM SENIOR JAVA WEB APPLICATION DEVELOPER) MAGNESIUM 2.0 1.6 - 2.6 mg/dL 07/08/2024 6:10 AM SENIOR JAVA WEB APPLICATION DEVELOPER [facility] Blood Collection / Unknown 07/08/2024 4:08 AM SENIOR JAVA WEB APPLICATION DEVELOPER 07/08/2024 4:18 AM SENIOR JAVA WEB APPLICATION DEVELOPER Jagruti Lim MD CHEMISTRY OR DERABLES Performing Organization Address City/[facility]/ZIP Co de Phone Number [facility] CLIA # [id number] [address] [address] * LIPASE (07/08/2024 4:08 AM SENIOR JAVA WEB APPLICATION DEVELOPER) Only the most recent of2 resultswithin the time period is included. LIPASE 20 13 - 60 U/L 07/08/2024 4:30 AM [facility] Sarata [facility] Blood Collection / Unknown 07/08/2024 4:08 AM SENIOR JAVA WEB APPLICATION DEVELOPER 07/08/2024 4:18 AM SENIOR JAVA WEB APPLICATION DEVELOPER Matthew Steve MD CHEMISTRY ORDERABLES [facility] Sarata [facility] - [facility] CLIA # [id number] [facility] [address] [place] [address] * (ABNORMAL) COMPREHENSIVE METABOLIC PANEL (07/08/2024 4:08 AM SENIOR JAVA WEB APPLICATION DEVELOPER) Only the most recent of2 resultswithin the time period is included. SODIUM 136 136 - 145 mmol/L 07/08/2024 4:30 AM [facility] POTASSIUM 3.3(L) 3.5 - 5.1 mmol/L 07/08/2024 4:30 AM [facility] - [place] CHLORIDE 101 98 - 107 mmol/L 07/08/2024 4:30 AM [facility] - [place] CO2 17(L) 22 - 29 mmol/L 07/08/2024 4:30 AM [facility] - [place] CALCIUM 9.7 8.6 - 10.0 mg/dL 07/08/2024 4:30 AM [facility] [place] BUN 8 6 - 20 mg/dL 07/08/2024 4:30 AM [facility] [place] CREATININE 0.82 0.51 - 0.95 mg/dL 07/08/2024 4:30 AM [facility] LABORATORY [facility] GLUCOSE 138(H) 74 - 99 mg/dL 07/08/2024 4:30 AM [facility] [place] TOTAL PROTEIN 8.6 6.6 - 8.7 g/dL 07/08/2024 4:30 AM [facility] [place] ALBUMIN 4.6 4.0 - 5.0 g/dL 07/08/2024 4:30 AM [facility] LABORATORY [facility] BILIRUBIN TOTAL 0.3 <=1.2 mg/dL 07/08/2024 4:30 AM [facility] ALKALINE PHOSPHATASE 93 35 - 104 U/L 07/08/2024 4:30 AM [facility] AST 29 <40 U/L 07/08/2024 4:30 AM [facility] [place] ALT 31 <=33 U/L 07/08/2024 4:30 AM [facility] GFR >60 >=60 mL/min/1.7 3 sq meter 07/08/2024 4:30 AM [facility] Comment:eGFR calculated with 2020 CKD-EPI equation. Vegetarian diet, extremely high or low muscle mass, and may affect results. Cystatin C with Glomerular Filtration Rate is a suitable alternative for these patients. ANION GAP 18(H) 5 - 15 mmol/L 07/08/2024 4:30 AM [facility] Blood Collection / Unknown 07/08/2024 4:08 AM SENIOR JAVA WEB APPLICATION DEVELOPER 07/08/2024 4:18 AM SENIOR JAVA WEB APPLICATION DEVELOPER Matthew Steve MD CHEMISTRY ORDERABLES Performing Organization Address City/[facility]/ZIP Co de Phone Number [facility] CLIA # [id number] [address] [place] [address] * EXTRA TUBE (BLUE) (07/06/2024 11:55 PM SENIOR JAVA WEB APPLICATION DEVELOPER) Blood Venipuncture / Unknown 07/06/2024 11:55 PM SENIOR JAVA WEB APPLICATION DEVELOPER 07/07/2024 12:03 AM SENIOR JAVA WEB APPLICATION DEVELOPER Nadir Morrison MD HEMATOLOGY OR DERABLES [facility] CLIA # [id number] [address] [address] * TROPONIN BASELINE, 5TH GEN (07/06/2024 11:55 PM SENIOR JAVA WEB APPLICATION DEVELOPER) TROPONIN T, BASELINE 5TH GEN <6 <=10 ng/L 07/07/2024 12:18 AM SENIOR JAVA WEB APPLICATION DEVELOPER [facility] Sarata [facility] Blood Collection / Unknown 07/06/2024 11:55 PM SENIOR JAVA WEB APPLICATION DEVELOPER 07/07/2024 12:06 AM SENIOR JAVA WEB APPLICATION DEVELOPER Justice [facility] Sarata [facility] - 07/07/2024 12:18 AM SENIOR JAVA WEB APPLICATION DEVELOPER Troponin Undetectable Protocol Roula Morrison MD CHEMISTRY ORD ERABLES Performing Organization Address City/[facility]/ZIP Co de Phone Number [facility] Sarata [facility] CLIA # [id number] [address] [place] [address] * HEMOGLOBIN A1C (07/06/2024 11:55 PM SENIOR JAVA WEB APPLICATION DEVELOPER) HEMOGLOBIN A1C 5.5 <=5.6 % 07/07/2024 12:40 AM SENIOR JAVA WEB APPLICATION DEVELOPER [facility] Sarata [facility] EST. AVG GLUCOSE, A1C 111 mg/dL 07/07/2024 12:40 AM [facility] Sarata [facility] Blood Collection / Unknown 07/06/2024 11:55 PM SENIOR JAVA WEB APPLICATION DEVELOPER 07/07/2024 12:19 AM SENIOR JAVA WEB APPLICATION DEVELOPER Justice [facility] Sarata [facility] - 07/07/2024 12:40 AM SENIOR JAVA WEB APPLICATION DEVELOPER HGB A1C INTERPRETATION NORMAL: ? <5.7% PRE-DIABETES: 5.7 - 6.4% DIABETES: ? 6.5% OR GREATER Protocol Roula Morrison MD CHEMISTRY ORD ERABLES [facility] CLIA # [id number] [address] [place] [address] * (ABNORMAL) CERV/VAG CYTO SCREEN PAP W/HPV (04/07/2022 12:00 AM CDT) CLINICAL INFORMATION [facility] Comment:SCREENING LAST MENSTRUAL PERIOD [facility] Comment:INFORMATION NOT PROV IDED PREV PAP: [facility] Comment:INFORMATION NOT PROV IDED PREV BX: [facility] Comment:INFORMATION NOT PROV IDED SOURCE [facility] Comment:Endocervix ADEQUACY: [facility] [place] Comment: Satisfactory for evaluation. Endocervical/transformation zone component present. Age and/or menstrual status not provided PAP INTERP [facility] [place] Comment:Negative for intraep ithelial lesion or malignancy. CYTOLOGY INFECTION [facility] [place] Comment: Shift in vaginal colton suggestive of bacterial vaginosis. COMMENT (PAP TEST) [facility] [place] Comment: This Pap test has been evaluated with computer assisted technology. SOLAR POWER INSTALLER: est [facility] [place] Comment: JAF, CT(ASCP) CT Screening Location: [place] [address] [place] [address] REVIEW SOLAR POWER INSTALLER: [facility] Comment: MEF, CT(ASCP) CT screening location: [place] [address] [address] [facility] EXPLANATORY NOTE [facility] [place] Comment: EXPLANATORY NOTE: The Pap is a [...] information. HPV E6/E7 Detected( A) Not Detected [facility] [place] Comment: Methodology: Commercial Artist Lettering-Mediated Amplification This assay detects E6/E7 viral messenger RNA (mRNA) from 14 high-risk HPV types (16,18,31,33,35,39,45,51,52,56,58,59,66,68). Cervical sources are required for HPV testing. If a vaginal source from a patient who has had a total hysterectomy with removal of cervix was submitted, please contact the testing laboratory for alternative testing options. For additional information, please refer to http://education.Koality/faq/GPG854v2 (This link if provided for information/ educational purposes only.) Test Performed at: [facility] [address] [place], [place] ??[address] Willi Gerber D.O., MPH SL Genital SWAB OF ENDOCERVIX / Unknown 04/07/2022 04/07/2022 9:33 PM CDT Hazel Mcadams MD PATHOLOGY/CYTOLOGY O RDERABLES [facility] [phone] [facility] [id number] [address] [address] from Last 3 Months or Most Recently Relevant to Health Maintenance Advance Directives For more information, please contact: [phone] * Full Code (Latest Code Status on File) Date Activated Date Inactivated Comments 07/08/2024 6:36 AM 07/08/2024 6:14 PM Care Teams Boot Trimmer Relationship Specialty Start Date End Date Geo Duff MD [address] [address] [place] [address] PCP - General Family Practice 07/07/24
--- OUTSIDE RECORDS SUMMARY | 2024-07-30 16:04 | XMS_ITS | Encounter Summary ---
Author Organization [facility] Address [address] Attn: Epic Prelude ADT [place] [address] Care Team Providers Care Tree Farmer Name Role Phone Geo Duff MD Primary Care Provider [phone] Encounter Details Date Type Department Care Team [...] st Contact Info) Description 08/08/2024 1:40 PM HANGING FLAGS DECORATOR Office Visit [facility] GASTROENTEROLOGY - [address] [facility] [address] [address] [facility] [address] [place] [address] [place] [address] [facility] [address] [place] [address] documented as of this encounter Visit Diagnoses Not on filedocumented in this encounter Care Teams Tree Farmer Relationship Specialty Start Date End Date Geo Duff MD [facility] [address] [place] [address] PCP - General Family Practice 07/07/24 documented as of this encounter
--- OUTSIDE RECORDS SUMMARY | 2024-07-30 16:04 | XMS_ITS | Encounter Summary ---
Author Organization [facility] Health Address [address] [facility] [place] [address] Care Team Providers Care Hide Worker Name Role Phone Unavailable Primary Care Provider Unavailabl e Encounter Details Date Type Department Care Team (Latest Contact Info) Description 12/23/2009 12:45 PM CDT - 12/23/2009 11:59 PM CDT Hospital Encounter HC DEFAULT [address] [place] [address] Howard William MD [address] [facility] [address] [place] [address] Discharge Disposition: Home or Self Care Social History Tobacco Use Types Packs/Day Years Used Date Smoking Tobacco: Never Assessed Sex and Gender Information Value Date Recorded Sex Assigned at Not on file Gender Identity Female 08/19/2022 7:56 AM SHIPPING ROOM SUPERVISOR Sexual Orientation Not on file documented as of this encounter Plan of Treatment Not on file documented as of this encounter Visit Diagnoses Not on filedocumented in this encounter
--- OUTSIDE RECORDS SUMMARY | 2024-07-30 16:04 | XMS_ITS | Encounter Summary ---
Author Organization [facility] Address [address] [place] [address] Care Team Providers Care Discharge Door Operator Name Role Phone Molly Alvarado MD Primary Care Provider Reason for Visit * Auth/Cert - Closed Specialty Diagnoses / Procedures Referred By Contac t Referred To Contact Diagnoses Other symptoms involving digestive system(787.99) Loss of weight Procedures COLONOSCOPY DIAGNOSTIC ESOPHAGOGASTRODUODENOSCOPY (EGD) Referral ID Status Reason Start Date Expiration Date Visits Re quested Visits Authorized [id number] Closed 1 1 Encounter Details Date Type Department Care Team (Late st Contact Info) Description 04/19/2013 10:30 AM CDT - 04/19/2013 11:30 AM CDT Surgery [facility] - Endoscopy Surgery [address] [place] [address] Josiah Breen MD [address] [facility] [address] [place] [address] COLONOSCOPY DIAGNOSTIC Surgery Details Date/Time Status Location OR Service Patient Class Case Class Case Type Trauma Case? 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 section 04/03/2011 ??? [place] tooth extraction Allergies Allergen Reactions ??? Tetanus [...] Negative Negative, Uninterpretable 3 5:34 PM CDT [facility] C difficile Toxin A + B Negative Negative, Uninterpretable 3 5:34 PM CDT [facility] Interpretation C difficile Negative for toxigenic C. difficile Negative for toxigenic C. difficile 3 5:34 PM CDT [facility] Stool STOOL SPECIMEN / Unknown Collection / Unknown 04/19/2013 10:59 AM CDT 04/19/2013 12:42 PM CDT Josiah Breen MD LAB - MICROBIOLOGY O RDERABLES [facility] [address] [place] [address], [facility] * GIARDIA CRYPTOSPORIDIUM ANTIGEN PANEL (04/19/2013 10:59 AM CDT) Giardia Antigen DFA Negative Negative 04/22/2013 2:06 PM CDT [facility] Cryptosporidium Antigen DFA Negative Negative 04/22/2013 2:06 PM CDT [facility] Stool STOOL SPECIMEN / Unknown Collection / Unknown 04/19/2013 10:59 AM CDT 04/19/2013 12:42 PM CDT Narrative [facility] - 04/22/2013 2:06 PM CDT A single O and P exam may be insufficient to diagnose an intestinal parasite infection. Additional specimens are recommended if patient remains symptomatic. CAUTION: Cyclospora will not be detected by routine Ova and Parasite testing. A separate lab order, Parasitology stain by Modified Acid Fast, must be placed specifically for Cyclospora which will be sent to [facility]. Specimen must be collected in 10% formalin. CAUTION: Cyclospora will not be detected by routine Ova and Parasite testing. A separate lab order, Parasitology Stain by Modified Acid Fast, must be placed specifically for Cyclospora which will be sent to [facility]. Specimen must be collected in 10% formalin. Josiah Breen MD LAB - MICROBIOLOGY O MEMO Performing Organization Address [facility] Co de Phone Number [facility] [address] * CULTURE STOOL+SHIGA-LIKE TOXIN (04/19/2013 10:59 AM CDT) Culture No growth Salmonella, Shigella, Campylobacter , E. coli 0157:h7 or Yersinia 04/21/2013 8:30 AM CDT [facility] Culture Shiga Toxin Negative 04/21/2013 8:30 AM CDT [facility] Stool STOOL SPECIMEN / Unknown Collection / Unknown 04/19/2013 10:59 AM CDT 04/19/2013 12:42 PM CDT Josiah Breen MD LAB - MICROBIOLOGY O MEMO Performing Organization Address City/[facility] Co de Phone Number [facility] [address] [facility] [facility] [address] * EGD (04/19/2013 10:40 AM CDT) [...] Blood Loss: ? Estimated blood loss: none. [facility] ENDOSCOPY 04/19/2013 10:4 0 AM CDT Narrative [facility] ENDOSCOPY - 04/19/2013 11:06 AM CDT Procedure Note Josiah Breen MD - 04/19/2013 11:06 AM CDT Josiah Breen MD GI PROCEDURE ORDERAB LES [facility] ENDOSCOPY * ENDOSCOPY, COLON, SCREENING (04/19/2013 [...] Blood Loss: ? Estimated blood loss: none. [facility] ENDOSCOPY 04/19/2013 10:4 0 AM CDT Narrative [facility] ENDOSCOPY - 04/19/2013 11:09 AM CDT Procedure Note Josiah Breen MD - 04/19/2013 11:09 AM CDT Josiah Breen MD GI PROCEDURE ORDERAB LES [facility] ENDOSCOPY * GROSS + MICRO EXAM (STL) (04/19/2013 10:40 AM CDT) Case Report Surgical Pathology Report ? Case: [id number] ? -------- Authorizing Provider: ??Josiah Breen MD [...] Colon Biopsy, random ? 04/20/2013 11:43 AM [facility] Final Diagnosis Small intestine, duodenum, endoscopic [...] Reactive lymphoid aggregates KL/scs 04/20/2013 11:43 AM [facility] Gross Description Received in formalin are four containers each labeled Cata Urean. Container one is labeled biopsy random duodenum [...] cassette labeled D1. DYT/lma 04/20/2013 11:43 AM [facility] Microscopic Description Histologic sections of [...] or malignancy. KL/scs 04/20/2013 11:43 AM CDT [facility] Synoptic Report 04/20/2013 11:43 AM CDT [facility] Pathology/Cytology DUODENAL BIOPSY SPECIMEN / Unknown [...] Breen MD LAB - PATHOLOGY/CYTO LOGY ORDERABLES [facility] [address] [id number] * HCG URINE QUALITATIVE - POINT OF CARE (IP) (04/19/2013 10:10 AM CDT) HCG Qual Urine Negative Negative [facility] POCT TESTING QC Verified yes Yes [facility] POC T TESTING Urine specimen (specimen) URINE / Unknown 04/19/2013 10:10 AM CDT Josiah Breen MD LAB - POINT OF CARE ORDERABLES [facility] POCT TESTING [address] [address] documented in this encounter Visit Diagnoses Diagnosis [...] RN) documented in this encounter Care Teams Discharge Door Operator Relationship Specialty Start Date End Date Molly Alvarado MD PCP - General Family Medicine 12/05/11 08/25/15 documented as of this encounter
--- OUTSIDE RECORDS SUMMARY | 2024-07-30 16:04 | XMS_ITS | Encounter Summary ---
Author Organization [facility] Address [address] [place] [address] Care Team Providers Care Patients Transporter Name Role Phone Dona Beyer MD Primary Care Provider [phone] Encounter Details Date Type Department Care Team [...] st Contact Info) Description 08/08/2024 1:40 PM MANOMETER TECHNICIAN Office Visit [facility] GASTROENTEROLOGY - [address] [facility] 102 [address] [facility] [address] [place] [address] [place] [address] [facility] [address] [place] [address] documented as of this encounter Visit Diagnoses Not on filedocumented in this encounter Care Teams Patients Transporter Relationship Specialty Start Date End Date Dona Beyer MD PCP - General Plastic Roller 05/14/20 07/06/24 documented as of this encounter
--- OUTSIDE RECORDS SUMMARY | 2024-07-30 16:04 | XMS_ITS | Encounter Summary ---
Author Organization [facility] Address [address] [place] [address] Care Team Providers Care Gambling Broker Name Role Phone Dona Beyer MD Primary Care Provider [phone] Reason for Visit * Reason Comments Med Refill Encounter Details Date Type Department Care Team (Late Contact Info) Description 04/06/2023 Refill [facility] Women's Health Clinical Support [address] [place] [address] [place] [address] [facility] [address] [place] [address] Social History Tobacco Use Types [...] (Late Contact Info) Description 08/08/2024 1:40 PM HEAD HOLDER Office Visit [facility] GASTROENTEROLOGY - [address] [facility] 102 [address] [facility] [address] [place] [address] [place] [address] [facility] [address] [place] [address] documented as of this encounter Visit Diagnoses Not on filedocumented in this encounter Care Teams Gambling Broker Relationship Specialty Start Date End Date Dona Beyer MD PCP - General Oil Burner Technician 05/14/20 07/06/24 documented as of this encounter
--- OUTSIDE RECORDS SUMMARY | 2024-07-30 16:04 | XMS_ITS | Encounter Summary ---
Author Organization [facility] Address [address] [place] [address] Care Team Providers Care Architectural Project Captain Name Role Phone Dona Beyer MD Primary Care Provider [phone] Encounter Details Date Type Department Care Team [...] st Contact Info) Description 08/08/2024 1:40 PM COMMERCIAL ATTACHE Office Visit [facility] GASTROENTEROLOGY - [address] [facility] [address] [address] [facility] [address] [place] [address] [place] [address] [facility] [address] [place] [address] documented as of this encounter Visit Diagnoses Not on filedocumented in this encounter Care Teams Architectural Project Captain Relationship Specialty Start Date End Date Dona Beyer MD PCP - General Outreach Liaison 05/14/20 07/06/24 documented as of this encounter
--- OUTSIDE RECORDS SUMMARY | 2024-07-30 16:04 | XMS_ITS | Encounter Summary ---
Author Organization [facility] Address [address] [facility] [place] [address] Care Team Providers Care Drag Seiner Name Role Phone Molly Alvarado MD Primary Care Provider Reason for Visit * Reason Comments Establish Care Encounter Details Date Type Department Care Team (Late st Contact Info) Description 12/05/2011 10:15 AM CDT Office Visit [facility] Medical [facility] - Family Medicine [address] [place] [address] [address] [place] [address] Molly Alvarado MD [address] [place] [address] [address] [place] [address] Routine general medical examination at [...] Gender Identity Female 08/19/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 Cerumen impaction RI REMOVE IMPACTED EAR WAX 3. Anxiety state, unspecified mirtazapine (REMERON) 15 MG tablet, venlafaxine XR 24hr (EFFEXOR XR) 75 MG capsule PLAN: Orders Placed This Encounter ??? RI REMOVE IMPACTED EAR WAX ??? mirtazapine (REMERON) [...] unspecified documented in this encounter Care Teams Drag Seiner Relationship Specialty Start Date End Date Molly Alvarado MD PCP - General Family Medicine 12/05/11 08/25/15 documented as of this encounter
--- OUTSIDE RECORDS SUMMARY | 2024-07-30 16:04 | XMS_ITS | Encounter Summary ---
Author Organization [facility] Address [address] [place] [address] Care Team Providers Care Meat Cutter Name Role Phone Molly Alvarado MD Primary Care Provider Reason for Referral * - Closed Specialty Diagnoses / Procedures Referred By Contac t Referred To Contact Gastroenterology Diagnoses Altered bowel habits Weight loss Procedures ENDOSCOPY, COLON, DIAGNOSTIC Josiah Breen MD [address] [facility] [address] [place] [address] Referral ID Status Reason Start Date Expiration Date Visits Re quested Visits Authorized [id number] Closed 04/03/2013 09/30/2013 1 1 Reason for Visit * Reason Comments Establish Care wt loss, abd pain,em erget BM's after eating Encounter Details Date Type Department Care Team (Late st Contact Info) Description 04/03/2013 9:00 AM CDT Office Visit [facility] [address] [facility] [employer] [address] [place] [address] Josiah Breen MD [address] [facility] [address] [place] [address] Altered bowel habits (Primary Dx); Weight loss Social History Tobacco Use Types Packs/Day Years Used Date Smoking Tobacco: Never Smokeless Tobacco: Never Alcohol Use Standard Drinks/Week Comments Yes 0 (1 standard drink = 0.6 oz pur e alcohol) social - rare Sex and Gender Information Value Date Recorded Sex Assigned at Not on file Gender Identity Female 08/19/2022 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 3) The physician will discuss the findings with you and your family members following your procedure. Thank you for allowing us to participate in your care. If you have any questions regarding this procedure or preparation for it, please call our office [phone]. PREPARATION FOR UPPER ENDOSCOPY Please arrive at 9AM for your procedure which is scheduled at 10:30AM, on 04/19/2013. Please register at: [place] [address] NO FOOD OR DRINK AFTER MIDNIGHT BEFORE YOUR EXAM. MEDICATION INSTRUCTIONS: DISCUSS WELL IN ADVANCE OF YOUR PROCEDURE: If you are taking Persantine, Heparin, Coumadin (Warfarin) or Plavix as prescribed by your physician, please phone us at [phone] well in advance of your procedure. 3 [...] your procedure BRING YOUR MEDS AND A BILLET GRINDER with you: BRING YOUR CURRENT MEDICATIONS IN THEIR ORIGINAL CONTAINERS WITH YOU TO YOUR PROCEDURE. BRING SOMEONE TO DRIVE YOU HOME. (The medication you will receive will prevent you from driving or working safely the day of your exam). There is a comfortable waiting area with complimentary beverages available for your m48/m60 tank driver during their wait period. The physician will discuss the findings with you and your family members following your procedure. Thank you for allowing us to participate in your care. If you have any questions regarding this procedure or preparation for it, please call our office [phone]. documented in this encounter Progress Notes * Josiah Breen MD - 04/23/2013 11:06 AM CDTQuick Note: Will need follow up in office. May need hydrogen/ fructose breath tests prior to visit. * Luz Kaur - 04/03/2013 9:50 AM CDT sched pt for colon egd w/anesth on 04/19/2013 @ [facility]. Faxed or sched. Gave pt inst in office escribedrx * Josiah Brene MD - 04/03/2013 9:31 AM CDT GASTROENTEROLOGY INITIAL VISIT NOTE DEMOGRAPHICS: Patient: Cata Urena : 1985 Referring MRemingtonD.: Molly Alvarado [...] [RBOYER] on 04/25/2013 at ??9:06 AM (File: [id number]) Reason: linked to wrong order Procedure Note [...] PM CDT Narrative Resulting Agency Comment [facility] [address] ??[facility] [id number] Josiah Breen MD LAB - CHEMISTRY TIFFANIE WILLS Performing Organization Address [facility] Co de Phone Number [facility] ACCOUNT BILL * VITAMIN B12 (04/03/2013 9:54 AM CDT) Vitamin B12 304 211 - 946 pg/mL [facility] ACCOUNT BILL Blood specimen (specimen) BLOOD SPECIMEN / Unknown 04/03/2013 9:54 AM CDT 04/03/2013 1:06 PM CDT Narrative Resulting Agency Comment [facility] [address] ??[facility] [phone] Josiah Breen MD LAB - CHEMISTRY TIFFANIE WILLS Performing Organization Address [facility] de Phone Number [facility] ACCOUNT BILL [...] PM CDT Narrative Resulting Agency Comment [facility] [place] [id number] ??[facility] [id number] Josiah Breen MD LAB - SEROLOGY ORDER SHARON [facility] ACCOUNT BILL * IGA BLOOD (04/03/2013 9:54 AM CDT) IgA Quantitative 210 91 - 414 mg/dL [facility] ACCOUNT BILL Blood specimen (specimen) BLOOD SPECIMEN / Unknown 04/03/2013 9:54 AM CDT 04/03/2013 1:06 PM CDT Narrative Resulting Agency Comment [facility] [place] [address] ??[facility] [id number] Josiah Breen MD LAB - CHEMISTRY TIFFANIE WILLS [facility] ACCOUNT BILL documented in this encounter Visit Diagnoses Diagnosis Altered bowel habits- Primary Other symptoms involving digestive system Weight loss Loss of weight Diarrhea- Primary documented in this encounter Care Teams Meat Cutter Relationship Specialty Start Date End Date Molly Alvarado MD PCP - General Family Medicine 12/05/11 08/25/15 documented as of this encounter
--- OUTSIDE RECORDS SUMMARY | 2024-07-30 16:04 | XMS_ITS | Encounter Summary ---
Author Organization [facility] Address [address] [place] [address] Care Team Providers Care Asphalt Mixing Machine Operator Name Role Phone Dona Beyer MD Primary Care Provider [phone] Encounter Details Date Type Department Care Team [...] st Contact Info) Description 08/08/2024 1:40 PM ADMISSION SPECIALIST Office Visit [facility] GASTROENTEROLOGY - [address] [facility] 102 [address] [facility] 102 [place] [address] [place] [address] [facility] 102 [place] [address] documented as of this encounter Visit Diagnoses Not on filedocumented in this encounter Care Teams Asphalt Mixing Machine Operator Relationship Specialty Start Date End Date Dona Beyer MD PCP - General Apron Cleaner 05/14/20 07/06/24 documented as of this encounter
--- OUTSIDE RECORDS SUMMARY | 2024-07-30 16:04 | XMS_ITS | Encounter Summary ---
Author Organization [facility] Address [address] [facility] [place] [address] Care Team Providers Care Casino Supervisor Name Role Phone Daja Orr MD Primary Care Provider Reason for Referral * - Closed Specialty Diagnoses / Procedures Referred By Contac t Referred To Contact Diagnoses Nausea Belching Procedures US ABDOMEN COMPLETE Cherelle Mason APRN-CARPENTER MATE [address] [facility] [address] [place] [address] Referral ID Status Reason Start Date Expiration Date Visits Re quested Visits Authorized [id number] Closed 08/02/2011 01/29/2012 1 1 [employer] Reason for Visit * - Closed Specialty Diagnoses / Procedures Referred By Contac t Referred To Contact Diagnoses Nausea Belching Procedures US ABDOMEN COMPLETE Cherelle Mason APRN-CARPENTER MATE [address] [facility] [address] [place] [address] Referral ID Status Reason Start Date Expiration Date Visits Re quested Visits Authorized [id number] Closed 08/02/2011 01/29/2012 1 1 Encounter Details Date Type Department Care Team (Latest Contact Info) Description 08/02/2011 2:07 PM [employer] - 08/02/2011 11:59 PM [employer] Hospital Encounter [facility] Imaging Services - Ultrasound [address] [place] [address] [place] [address] [facility] [address] [place] [address] Radiology Diagnostic Discharge Disposition: Home or Self Care Social History Tobacco Use Types Packs/Day Years Used Date Smoking Tobacco: Never Alcohol Use Standard Drinks/Week Comments Yes 0 (1 standard drink = 0.6 oz pur e alcohol) social Sex and Gender Information Value Date Recorded Sex Assigned at Not on file Gender Identity Female 08/19/2022 7:56 AM [employer] Sexual Orientation Not on file documented as [...] US of abdomen normal. Needs HIDA scan. [employer] documented in this encounter Miscellaneous Notes * Miscellaneous Scans - Document, Scanned - 08/10/2011 10:20 AM CST [employer] documented in this encounter Plan of Treatment Not on file documented as of this encounter Procedures Procedure Name Priority Date/Time Associated Diagnosis Comments US ABDOMEN COMPLETE Routine 08/02/2011 2 :45 PM [employer] Nausea Belching documented in this encounter Results * US ABDOMEN COMPLETE (08/02/2011 2:45 PM [employer]) Anatomical Region Laterality Modality Abdomen Ultrasound 08/02/2011 2:53 PM [employer] Impressions 08/02/2011 2:58 PM [employer] Unremarkable abdominal ultrasound. Narrative 08/02/2011 2:58 PM [employer] ULTRASOUND ABDOMEN COMPLETE INDICATION: Abdominal pain. FINDINGS: [...] unremarkable. IMPRESSION Unremarkable abdominal ultrasound. Cherellelorie Rodaslayla MEAT STOCK CLERK-CARPENTER MATE US ORDERABLES documented in this encounter Visit Diagnoses Diagnosis Nausea Nausea alone Belching Flatulence, eructation, and gas pain documented in this encounter Care Teams Casino Supervisor Relationship Specialty [place] [address] [address] PCP - General Internal Medicine 06/17/11 12/04/11 documented as of this encounter
--- OUTSIDE RECORDS SUMMARY | 2024-07-30 16:04 | XMS_ITS | Encounter Summary ---
Author Organization [employer] Address [address] [place] [address] Care Team Providers Care Papier Mache Molder Name Role Phone Isis Duff MD Primary Care Provider [phone] Reason for Visit * Reason Comments Vomiting Pt comes in for vomi ting 9 hours today. Pt was here yesterday and felt good at DC but after a little vomiting came back * Auth/Cert (Routine) Specialty Diagnoses / Procedures Referred By María Elena rand Referred To Contact Emergency Medicine [facility] Emergency Department [address] [place] [phone] Referral ID Status Reason Start Date Expiration Date Visits Re quested Visits Authorized [id number] 1 1 Encounter Details Date Type Department Care Team (Late st Contact Info) Description 07/08/2024 3:48 AM FRONT WORKER - 07/08/2024 4:[address] [facility] Emergency [address] [address] Matthew Steve MD [address] [place] [id number] Jagruti Lim MD [address] [place] [phone] Anabel Philip MD [address] [place] [phone] Intractable nausea and vomiting Discharge Disposition: [...] Comments Blood Pressure 111/63 07/08/2024 12:00 PM FRONT WORKER Pulse 100 07/08/2024 12:00 PM FRONT WORKER Temperature 36.9 ??C (98.4 ??F) 07/08/2024 12:[address] Respiratory Rate 18 07/08/2024 12:00 PM FRONT WORKER Oxygen Saturation 100% 07/08/2024 12:00 PM FRONT WORKER Inhaled Oxygen Concentration - - Weight 63.5 kg (140 lb) 07/08/2024 6:46 AM FRONT WORKER Height 154.9 cm (5' 1 ) 07/08/2024 6:46 AM FRONT WORKER Body Mass Index 26.45 07/08/2024 6:46 AM FRONT WORKER documented in this encounter Discharge Summaries * Anabel Philip MD - 07/08/2024 3:20 PM CST [facility] Adult Hospitalist Discharge Summary Cata Ibrahim 39 y.o. female 1985 CSN: [id number] Date of Admission: 07/08/2024 Date of Discharge: [...] right upper quadrant ultrasound performed by an electromechanical technologist in multipleprojections. COMPARISON: None FINDINGS: PANCREAS: [...] hepatic masses. 2. Unremarkable gallbladder. DICTATION LOCATION: [address] ABDOMEN PELVIS W CONTRAST Result [...] No acute changes. DICTATION LOCATION: Location - [facility] Summary of presentation per admitting H&P/Hospital Course: [...] day before admission. She was hospitalized to [facility] on 03/30/2024 for intractable nausea vomiting, subsequentlyhad [...] sinus rhythm, heart rate of 63, short TN interval, QTc 445. Please see history and [...] Your Medications These medications were sent to [id number] - [place], [place] - [address] AT [facility] OF [address]) & [facility] [address], [place] [address] Hours: 24-hours omeprazole 40 mg Capsule, Delayed [...] and alternatives. This note was transcribed using [employer] There Speech Recognition software. All attempts were made to be precise and correct. The document has also been reviewed for grammatical and spelling errors. However some errors may have been inadvertently missed. If there are any questions, concerns, major errors or need for clarification, please contact the author. Anabel Philip MD [facility] T WORKER documented in this encounter Discharge Instructions * Discharge Instructions* Anabel Philip MD - 07/08/2024 3:17 PM FRONT WORKER Images from the original note were not included. Your discharging physician is Anabel Philip MD and may be reached at [phone] for any questionsor concerns until you see your doctor. DISCHARGE INSTRUCTIONS/FOLLOW-UP Take all medications as prescribed. Follow-up with your primary care physician (Isis Duff MD) in 7 days. If you need to follow up or establish care with a primary doctor, director life sales, or NETWORK/TELECOM ENGINEER provider,you can make an appointment online using [employer] Scheduling. Go to MyTime Click the First Available Scheduling link in the top right corner. (See below) [facility], pediatrics or women???s health to [...] Low Fiber, This note was transcribed using [employer] Speech Recognition software. All attempts were made to be precise and correct. The document has also been reviewed for grammatical and spelling errors. However some errors may have been inadvertently missed. If there are any questions, concerns, major errors or need for clarification, please contact the author. T WORKER * Attachments The following attachments cannot be sent through Care Everywhere. * BMI (Body Mass Index) (Irish) * Omeprazole Delayed Release Oral Tablet (OMEPRAZOLE DELAYED RELEASE TABLET - ORAL) (Irish) * Potassium Phosphate/Sodium Phosphate - Monobasic Oral Tablet (POTASSIUM/SODIUM PHOSPHATE - ORAL) (Irish) documented in this encounter Medications at Time [...] note were not included. Clinical Dietitian Note [facility] Duc Ibrahim is a 39 y.o. female patient. [...] actual body weight of 63.5 kg. Calories: 7464-3564 (22-27 kcal/kg) Protein: 64-76 gm (1.0- grams/kg) Fluid: 0209-2248 ml (1 ml/kcal) Nutrition Focused Physical Findings: [...] Vega RD, LD Time spent: 15 minutes T WORKER * Perla Curtis - 07/08/2024 8:32 AM CST Pharmacy Medication History Pharmacy was consulted to obtain a medication history on Cata Ibrahim [id number] CSN: [id number]. I spoke with patient to verify medications. Verified medications with Dispense Report/ PDMP. Changes and updates made to [employer] list. verified all medications (strength and directions) [...] Information source(s): patient, dispense report Preferred pharmacy: [id number] - [place], [place] - [address] [facility] & [place] [address] [facility] [address] Allergies (medication, reaction type, time period): Allergies [...] tachycardia) Z86.79 Intractable vomiting R11.10 Dehydration E86.0 PROFESSOR OF NURSING reviewed for controlled medications filled in the [...] not started yet: No Naloxone: No See [employer] list in EPIC for complete list of medications and the time medications were last taken. Summary (for data collection purposes) Number of [employer] Meds Before Interview: 9 Number of [employer] Meds Added: 1 Number of [employer] Meds Flagged/Removed: 0 Number of [employer] Meds Modified: 5 Number of High Risk [employer] Meds: 0 Number of [employer] Meds After Interview: 10 Thank you, Perla Curtis, Medication History Outdoor Emergency Care Technician 07/08/2024 8:19 AM T WORKER Associated attestation - Aura Farley PHARMACIST - 07/08/2024 9:15 AM FRONT WORKER [employer] medications have been reviewed. Changes/updates noted at this time. Eloy Farley RPh documented in this encounter H&P Notes * Jagruti Lim MD - 07/08/2024 6:17 AM CST [facility] History and Physical Patient Name: Cata Ibrahim [id number] Primary Care Doctor: Isis Duff MD Date [...] movement was yesterday morning. Patient hospitalized to [facility] on 03/30/2024 for intractable nausea vomiting, subsequentlyhad [...] sinus rhythm, heart rate of 63, short TN interval, QTc 445. CODE STATUS full code [...] the hospital encounter of 07/08/24 EKG 12-LEAD [facility] [address], [place] [address] Test Date: 2024-07-08 Pat Name: CATA ESCOBEDO Department: 25 Room: ED17 ED17 Gender: Female Outdoor Emergency Care Technician: : 1985 Requested By: MATTHEW Leach Order Number: [id number] Reading MD: Measurements Intervals [place] Rate: 63 P: 60 TN: 117 QRS: 50 QRSD: 90 T: 70 QT: 434 QTc: 445 Interpretive Statements SINUS RHYTHM WITH SHORT TN INTERVAL POSSIBLE LEFT ATRIAL ENLARGEMENT [-0.1mV P-WAVE IN V1/V2] POSSIBLE RIGHT VENTRICULAR CONDUCTION DELAY [RSR (QR) IN V1/V2] CT scan: Results for orders placed during the hospital encounter of 07/08/24 CT ABDOMEN PELVIS W CONTRAST Impression : 1. Chronic wall thickening likely related to lack of distention. 2. No acute changes. DICTATION LOCATION: Location [address] [place] [address] Assessment: Patient is 39 y.o. female with [...] of right upper quadrant. Noted EGD at [facility] at on 03/30/2024 is unremarkable. Leukocytosis, WBC [...] Anxiety depression Mood disorder Bipolar disorder: Continue [employer] Abilify 2 mg daily, Klonopin 0.25 mg 3 times daily as needed for anxiety, Cymbalta 60 mg daily, Caplyta 21 mg daily, trazodone 50 mg daily for insomnia. History of SVT: Patient has been suffering with SVT for the past 2 years, follows with cardiologistDr. Palumbo at [facility]. She is on verapamil 80 mg daily, [...] errors, please contact me. Jagruti Lim MD [facility] T WORKER documented in this encounter ED Notes * Lacey Bryson RN - 07/08/2024 6:17 AM CST Report given to RUBÉN Molina. All questions answered at this time. T WORKER * Matthew Steve MD - 07/08/2024 3:46 [...] provided by: The patient and medical records language interpreter used: No Arrived by: Private vehicle Arrived [...] 2. No acute changes. DICTATION LOCATION: Location [address] [place] [address] EKG: PROCEDURES Procedures MEDICAL DECISION MAKING AND [...] Date/Time Order Dose Route Action 07/08/2024 0526 FRONT WORKER sodium chloride 0.9% bolus solution 1,000 mL 0 mL IV Stopped 07/08/2024 0430 FRONT WORKER sodium chloride 0.9% bolus solution 1,000 mL 1,000 mL IV Bolus 07/08/2024 0420 FRONT WORKER prochlorperazine (COMPAZINE) injection 10 mg 10 mg IV Given 07/08/2024 041 FRONT WORKER diphenhydrAMINE (BENADRYL) injection 50 mg 50 mg IV Given 07/08/2024 0418 FRONT WORKER morphine 4 mg/mL injection 4 mg 4 mg IV Given 07/08/2024 0422 FRONT WORKER pantoprazole (PROTONIX) 40 mg in sodium chloride 0.9% 10 mL injection 40 mg IV Given 07/08/2024 0523 FRONT WORKER sodium chloride 0.9% infusion -- IV New Bag 07/08/2024 0515 FRONT WORKER LORazepam (ATIVAN) 2 mg/mL injection 2 mg 2 mg IV Given 07/08/2024 0507 FRONT WORKER iopamidoL (ISOVUE-300) 61% injection (drawn from multi-use [...] in the presence of Matthew Steve MD T WORKER documented in this encounter Miscellaneous Notes * Care Plan - Darshana Cassidy RN - 07/08/2024 3:58 PM CST Problem: Discharge Planning Goal: Identify discharge needs upon admission and through discharge Description: Outcome: Resolved Verbalized understanding of discharge instructions, denies further needs T WORKER * Care Plan - Emperatriz Luna LCSW [...] ten lu Mobile Relation: Father Preferred language: Irish Mobile Developer needed? No Secondary Emergency Contact: ky lu Mobile Relation: Mother Preferred language: Irish Mobile Developer needed? No Prescription coverage: yes Preferred Pharmacy verified: [id number] - [place], [place] - [address] [facility] [address] ([address]) & [address] Insurance coverage [...] discharge Description: Outcome: Progressing Emperatriz Luna LCSW [facility] Care Management [phone] T WORKER * Gen [facility] ED Handoff - GOLDEN [...] for any follow up or additional information. T WORKER documented in this encounter Plan of Treatment Upcoming Encounters Date Type Department Care Team (Late st Contact Info) Description 08/08/2024 1:40 PM FRONT WORKER Office Visit [facility] - [address] [facility] [phone] [facility] [place] [address] [place] [address] [place] [address] [facility] [address] [place] [address] documented as of this encounter Procedures Procedure Name Priority Date/Time Associated Diagnosis Comments US ABDOMEN LIMITED Stat 07/08/2024 7: 30 AM FRONT WORKER EKG 12-LEAD Stat 07/08/2024 6:[address] ABDOMEN PELVIS W CONTRAST Stat 07/08/2024 5:07 AM FRONT WORKER HCG QUALITATIVE, SERUM Stat 4:17 AM FRONT WORKER PROCALCITONIN Stat 07/08/2024 4:08 AM FRONT WORKER CBC WITH DIFFERENTIAL Stat 07/08/2024 4:08 AM FRONT WORKER C-REACTIVE PROTEIN Stat 07/08/2024 4: 08 AM FRONT WORKER PHOSPHORUS Routine 07/08/2024 4:08 AM FRONT WORKER MAGNESIUM LEVEL Stat 07/08/2024 4:08 AM FRONT WORKER LIPASE Stat 07/08/2024 4:08 AM FRONT WORKER COMPREHENSIVE METABOLIC PANEL Stat 07/08/2024 4:08 AM FRONT WORKER documented in this encounter Results * US ABDOMEN LIMITED (07/08/2024 7:30 AM FRONT WORKER) Anatomical Region Laterality Modality Abdomen Ultrasound 07/08/2024 7:36 AM FRONT WORKER Impressions 07/08/2024 8:05 AM FRONT WORKER IMPRESSION: 1. Mild abnormal echogenicity of the liver which can be seen with steatosis or other diffuse hepatocellular process. This limits the sensitivity for the detection of hepatic masses. 2. Unremarkable gallbladder. DICTATION LOCATION: [address] Narrative 07/08/2024 8:05 AM FRONT WORKER US ABDOMEN LIMITED DATE: 07/08/2024 7:30 AM HISTORY: 39-year-old female with nausea and vomiting TECHNIQUE: Limited right upper quadrant ultrasound performed by an electromechanical technologist in multiple projections. COMPARISON: None FINDINGS: [...] right upper quadrant ultrasound performed by an electromechanical technologist in multiple projections. COMPARISON: None FINDINGS: [...] masses. 2. Unremarkable gallbladder. DICTATION LOCATION: Location [address] [place] [address] Jagruti Lim MD US ORDERABLE S * EKG 12-LEAD (07/08/2024 6:13 AM FRONT WORKER) 07/08/2024 6:13 AM FRONT WORKER Narrative INTERFACE SYSTEM - 07/08/2024 4:50 PM FRONT WORKER ? [facility] ? [address], [place] [address] ? Test Date: ?2024-07-08 Pat Name: ? CATA IBRAHIM ? Department: ?? 25 ?Room: ? 2114 Gender: ? Female ? Outdoor Emergency Care Technician: ? : ?1985 ? Requested By: MATTHEW Leach Order Number: [id number] ? Reading MD: ?? Sushruth Edla ? Measurements Intervals ?[place] ? Rate: ? 63 ? P: ?60 TN: ? 117 ?QRS: ?50 QRSD: ? 90 ? T: ?70 QT: ? 434 ? QTc: ?445 ? Interpretive Statements SINUS RHYTHM WITH SHORT TN INTERVAL POSSIBLE LEFT ATRIAL ENLARGEMENT ??[-0.1mV P-WAVE IN V1/V2] POSSIBLE RIGHT VENTRICULAR CONDUCTION DELAY ??[RSR (QR) IN V1/V2] Electronically Signed On 07-08-2024 16:50:49 FRONT WORKER by Saud Fonseca Procedure Note Saud Fonseca MD - 07/08/2024 [facility] [address], [place] [address] Test Date: 2024-07-08 Pat Name: CATA IBRAHIM Department: 25 Room: [facility] Gender: Female Outdoor Emergency Care Technician: : 1985 Requested By: MATTHEW Leach Order Number: [id number] Arianna MD: Saud Fonseca Measurements Intervals [place] Rate: 63 P: 60 TN: 117 QRS: 50 QRSD: 90 T: 70 QT: 434 QTc: 445 Interpretive Statements SINUS RHYTHM WITH SHORT TN INTERVAL POSSIBLE LEFT ATRIAL ENLARGEMENT [-0.1mV P-WAVE IN V1/V2] POSSIBLE RIGHT VENTRICULAR CONDUCTION DELAY [RSR (QR) IN V1/V2] Electronically Signed On 07-08-2024 16:50:49 FRONT WORKER by Saud Fonseca Jagruti Lim MD ECG ORDERABL ES INTERFACE SYSTEM Refer to clinic/hospital department * CT ABDOMEN PELVIS W CONTRAST (07/08/2024 5:07 AM FRONT WORKER) Anatomical Region Laterality Modality Abdomen Computed Tomogra phy 07/08/2024 5:08 AM FRONT WORKER Impressions 07/08/2024 5:15 AM FRONT WORKER IMPRESSION: 1. Chronic wall thickening likely related to lack of distention. 2. No acute changes. DICTATION LOCATION: Location 7 - [facility] Narrative 07/08/2024 5:[address] ABDOMEN AND PELVIS WITH IV CONTRAST [...] 2. No acute changes. DICTATION LOCATION: Location [address] [place] [address] ORDERABLES * HCG QUALITATIVE, BLOOD (07/08/2024 4:17 AM FRONT WORKER) [facility] HCG QUAL, BLOOD Negative Negative, Indeterminate 07/08/2024 4:46 AM FRONT WORKER [facility] Blood Collection / Unknown 07/08/2024 4:17 AM FRONT WORKER 07/08/2024 4:36 AM FRONT WORKER Narrative [facility] - 07/08/2024 4:46 AM FRONT WORKER hCG sensitive to as little as 10 mIU/mL for serum. Matthew Steve MD CHEMISTRY ORDERABLES [facility] CLIA # [id number] [address] [address] * (ABNORMAL) PHOSPHORUS (07/08/2024 4:08 AM FRONT WORKER) [facility] PHOSPHORUS 1.1(L) 2.5 - 4.5 mg/dL 07/08/2024 9:43 AM FRONT WORKER [facility] Blood Collection / Unknown 07/08/2024 4:08 AM FRONT WORKER 07/08/2024 4:18 AM FRONT WORKER Anabel Philip MD CHEMISTRY ORDERABLES Performing Organization Address [facility]/ZIP Co de Phone Number [facility] CLIA # [id number] [address] [address] * (ABNORMAL) C-REACTIVE PROTEIN (07/08/2024 4:08 AM FRONT WORKER) [facility] CRP 7.4(H) <=5.0 mg/L 07/08/2024 6:10 AM FRONT WORKER [facility] [employer] [facility] Blood Collection / Unknown 07/08/2024 4:08 AM FRONT WORKER 07/08/2024 4:18 AM FRONT WORKER Jagruti Lim MD CHEMISTRY OR DERABLES [facility] CLIA # [id number] [address] [place] [address] * PROCALCITONIN (07/08/2024 4:08 AM FRONT WORKER) PROCALCITONIN 0.03 <=0.25 ng/mL 07/08/2024 6:11 AM FRONT WORKER [facility] Blood Collection / Unknown 07/08/2024 4:08 AM FRONT WORKER 07/08/2024 4:18 AM FRONT WORKER Narrative [facility] - 07/08/2024 6:11 AM FRONT WORKER The utility of procalcitonin is limited/NOT recommended [...] MD CHEMISTRY OR DERABLES Performing Organization Address [facility] Co de Phone Number [facility]Dealya [facility] # [id number] [facility] [address] [place] [address] * MAGNESIUM LEVEL (07/08/2024 4:08 AM FRONT WORKER) Pathologist [facility] MAGNESIUM 2.0 1.6 - 2.6 mg/dL 07/08/2024 6:10 AM FRONT WORKER [facility] Blood Collection / Unknown 07/08/2024 4:08 AM FRONT WORKER 07/08/2024 4:18 AM FRONT WORKER Jagruti Lim MD CHEMISTRY OR DERABLES Performing Organization Address [facility] Co de Phone Number [facility] CLIA # [id number] [address] [address] * LIPASE (07/08/2024 4:08 AM FRONT WORKER) Pathologist [facility] LIPASE 20 13 - 60 U/L 07/08/2024 4:30 AM FRONT WORKER [facility] Blood Collection / Unknown 07/08/2024 4:08 AM FRONT WORKER 07/08/2024 4:18 AM FRONT WORKER Matthew Steve MD CHEMISTRY ORDERABLES Performing Organization Address [facility] Co de Phone Number [facility] [employer] [facility] CLIA # [id number] [address] [address] * (ABNORMAL) COMPREHENSIVE METABOLIC PANEL (07/08/2024 4:08 AM FRONT WORKER) Pathologist [facility] SODIUM 136 136 - 145 mmol/L 07/08/2024 4:30 AM FRONT WORKER [employer] [facility] POTASSIUM 3.3(L) 3.5 - 5.1 mmol/L 07/08/2024 4:30 AM FRONT WORKER [facility] CHLORIDE 101 98 - 107 mmol/L 07/08/2024 4:30 AM [facility] - [facility] CO2 17(L) 22 - 29 mmol/L 07/08/2024 4:30 AM [facility] - D[facility] CALCIUM 9.7 8.6 - 10.0 mg/dL 07/08/2024 4:30 AM [facility] - [facility] BUN 8 6 - 20 mg/dL 07/08/2024 4:30 AM [facility] - [facility] CREATININE 0.82 0.51 - 0.95 mg/dL 07/08/2024 4:30 AM [facility] - DUC GLUCOSE 138(H) 74 - 99 mg/dL 07/08/2024 4:30 AM [facility] - D[facility] TOTAL PROTEIN 8.6 6.6 - 8.7 g/dL 07/08/2024 4:30 AM [facility] - D[facility] ALBUMIN 4.6 4.0 - 5.0 g/dL 07/08/2024 4:30 AM [facility] - DUC BILIRUBIN TOTAL 0.3 <=1.2 mg/dL 07/08/2024 4:30 AM [facility] - DUC ALKALINE PHOSPHATASE 93 35 - 104 U/L 07/08/2024 4:30 AM [facility] - D[facility] AST 29 <40 U/L 07/08/2024 4:30 AM [facility] - DUC ALT 31 <=33 U/L 07/08/2024 4:30 AM [facility] - D[facility] GFR >60 >=60 mL/min/1.7 3 sq meter 07/08/2024 4:30 AM [facility] - DUC Comment:eGFR calculated with 2020 CKD-EPI equation. Vegetarian diet, extremely high or low muscle mass, and may affect results. Cystatin C with Glomerular Filtration Rate is a suitable alternative for these patients. ANION GAP 18(H) 5 - 15 mmol/L 07/08/2024 4:30 AM [facility] LABORATORY SERVICES - DUC Blood Collection / Unknown 07/08/2024 4:08 AM FRONT WORKER 07/08/2024 4:18 AM FRONT WORKER Matthew Steve MD CHEMISTRY ORDERABLES [facility] - DUC CLIA # [id number] [facility] [address] [place] [id number] * (ABNORMAL) CBC WITH DIFFERENTIAL (07/08/2024 4:08 AM FRONT WORKER) WBC 12.9(H) 4.0 - 11.0 K/uL 07/08/2024 4:[address] [facility] Figure 1 [employer] SERVICES - DUC RBC 4.80 4.20 - 5.40 M/uL 07/08/2024 4:15 AM [facility] [employer] SERVICES - DUC HEMOGLOBIN 14.4 11.9 - 15.1 g/dL 07/08/2024 4:15 AM [facility] [employer] - DUC HEMATOCRIT 42.3 38.0 - 47.0 % 07/08/2024 4:15 AM [facility] [employer] [facility] - DUC MCV 88.1 80.0 - 98.0 fL 07/08/2024 4:15 AM [facility] [employer] SERVICES - DUC MCH 30.0 26.0 - 34.0 pg 07/08/2024 4:15 AM [facility] [employer] - DUC MCHC 34.0 31.0 - 37.0 g/dL 07/08/2024 4:15 AM [facility] [employer] - DUC RDW 13.1 11.5 - 14.5 % 07/08/2024 4:15 AM [facility] [employer] - DUC RDW-STDEV 42.6 34.0 - 54.0 fL 07/08/2024 4:15 AM [facility] [employer] - DUC PLATELETS 413(H) 150 - 400 K/uL 07/08/2024 4:15 AM [facility] - DUC MPV 10.6 8.5 - 12.5 fL 07/08/2024 4:15 AM [facility] [employer] - DUC NEUTROPHILS 84(H) 50 - 70 % 07/08/2024 4:15 AM [facility] [employer] - DUC LYMPHOCYTES 14(L) 20 - 40 % 07/08/2024 4:[address] [facility] [employer] - DUC MONOCYTES 2 2 - 8 % 07/08/2024 4:15 AM FRONT WORKER [employer] LABORATORY SERVICES - DUC EOSINOPHILS 0(L) 1 - 3 % 07/08/2024 4:15 AM FRONT WORKER [facility] LABORATORY SERVICES - DUC BASOPHILS 0 0 - 1 % 07/08/2024 4:15 AM FRONT WORKER [facility] LAB[facility]ORY SERVICES - DUC IMMATURE GRANULOCYTES 0 0 - 2 % 07/08/2024 4:15 AM FRONT WORKER [facility] LAB[facility]ORY SERVICES - DUC NEUTROPHIL ABSOLUTE 10.87(H) 1.80 - 7.70 K/uL 07/08/2024 4:15 AM FRONT WORKER [employer] [facility] LABORATORY SERVICES - DUC LYMPHOCYTE ABSOLUTE 1.75 1.00 - 3.30 K/uL 07/08/2024 4:15 AM FRONT WORKER [employer] [facility] LAB[facility]ORY SERVICES - DUC MONOCYTE ABSOLUTE 0.22 0.00 - 0.80 K/uL 07/08/2024 4:15 AM FRONT WORKER [employer] [facility] LAB[facility]ORY SERVICES - DUC EOSINOPHIL ABSOLUTE 0.00 0.00 - 0.45 K/uL 07/08/2024 4:15 AM FRONT WORKER [employer] [facility] LABOR[facility]ORY SERVICES - DUC BASOPHILS ABSOLUTE 0.03 0.00 - 0.20 K/uL 07/08/2024 4:15 AM FRONT WORKER [employer] [facility] LABORATORY SERVICES - DUC IMMATURE GRANULOCYTES ABSOLUTE 0.05 0.00 - 0.31 K/uL 07/08/2024 4:15 AM FRONT WORKER [facility] LABORATORY SERVICES - DUC Blood Collection / Unknown 07/08/2024 4:08 AM FRONT WORKER 07/08/2024 4:14 AM FRONT WORKER Matthew Steve MD HEMATOLOGY ORDERABLE S [facility] LABORATORY SERVICES - DUC CLIA # [id number] [address] [place] [id number] documented in this encounter Visit Diagnoses Diagnosis [...] Until Discontinued, Routine Given 07/08/2024 8:14 AM FRONT WORKER 2 mg dextrose 5 % in water 250 mL flush bag 25 mL 25 mL, IV, SEE ADMIN INSTRUCTIONS, Starting on Mon07/08/24 at 0634, Until Mon07/08/24 at 1819, Routine diphenhydrAMINE (BENADRYL) injection 50 mg 50 mg, IV, ONE TIME ONLY, 1 dose, On Mon07/08/24 at 0415, Routine Given 07/08/2024 4:19 AM FRONT WORKER 50 mg DULoxetine (CYMBALTA) capsule 60 mg 60 mg, Oral, DAILY, First dose on Mon07/08/24 at 0900, Until Discontinued, Routine, Previous Med: DULoxetine (CYMBALTA) 60 mg Capsule, Delayed Release(E.C.) - Orig Sig - TK 1 C PO QD Given 07/08/2024 8:14 AM FRONT WORKER 60 mg enoxaparin (LOVENOX) injection 40 mg 40 mg, subCUT, EVERY 24 HOURS, First dose on Mon07/08/24 at 0645, Until Discontinued, Routine, Indication: Prophylaxis of VTE, Dose to be adjusted per facility protocol? Yes Given 07/08/2024 8:12 AM FRONT WORKER 40 mg Abdominal Tissue iopamidoL (ISOVUE-300) 61% injection (drawn from multi-use bulk pack) 100 mL 100 mL, IV, INTRA-PROCEDURE ONCE, 1 dose, Starting on Mon07/08/24 at 0507, Until Mon07/08/24 at 0507, Routine Contrast Given 07/08/2024 5:07 AM FRONT WORKER 100 mL LORazepam (ATIVAN) 2 mg/mL injection 2 mg 2 mg, IV, ONE TIME ONLY, 1 dose, On Mon07/08/24 at 0515, Routine Given 07/08/2024 5:15 AM FRONT WORKER 2 mg morphine 4 mg/mL injection 4 mg 4 mg, IV, ONE TIME ONLY, 1 dose, On Mon07/08/24 at 0415, Routine Given 07/08/2024 4:18 AM FRONT WORKER 4 mg ondansetron (ZOFRAN ODT) tablet 4 mg 4 mg, Sublingual, EVERY 8 HOURS PRN, Starting on Mon07/08/24 at 0929, Until Mon07/08/24 at 1819, Nausea/Emesis, Routine ondansetron (ZOFRAN) 4 mg/2 mL injection 4 mg 4 mg, IV, EVERY 6 HOURS PRN, Starting on Mon07/08/24 at 0928, Until Mon07/08/24 at 1819, Nausea/Emesis, 2nd line, Routine Given 07/08/2024 12:38 PM FRONT WORKER 4 mg pantoprazole (PROTONIX) 40 mg in [...] Stress ulcer prophylaxis Given 07/08/2024 4:22 AM FRONT WORKER 40 mg pantoprazole (PROTONIX) tablet 40 mg 40 mg, Oral, DAILY BEFORE BREAKFAST, First dose on Mon07/08/24 at 0730, Until Discontinued, Routine, Indication: Gastroesophageal reflux disease (GERD) Given 07/08/2024 8:14 AM FRONT WORKER 40 mg potassium chloride 40 mEq in sodium chloride 0.9% 250 mL IVPB 40 mEq, IV, ONE TIME ONLY, 1 dose, On Mon07/08/24 at 0730, at 76.25 mL/hr, Administer over 4 Hours, Routine New Bag 07/08/2024 9:13 AM FRONT WORKER 40 mEq 76.25 mL/hr potassium CHLORIDE in dextrose 5% - NaCl 0.45% 1,000 mL 20 mEq/L infusion IV, at 75 mL/hr, CONTINUOUS, Starting on Mon07/08/24 at 0715, Until Mon07/08/24 at 0931, Routine New Bag 07/08/2024 8:13 AM FRONT WORKER 75 mL/hr prochlorperazine (COMPAZINE) injection 10 mg 10 mg, IV, ONE TIME ONLY, 1 dose, On Mon07/08/24 at 0415, Routine Given 07/08/2024 4:20 AM FRONT WORKER 10 mg prochlorperazine (COMPAZINE) injection 10 mg [...] 30 Minutes, Routine Bolus 07/08/2024 4:30 AM FRONT WORKER 1,000 mL 2000 mL/hr sodium chloride 0.9% infusion IV, at 100 mL/hr, CONTINUOUS, Starting on Mon07/08/24 at 0415, Until Mon07/08/24 at 0636, Routine New Bag 07/08/2024 5:23 AM FRONT WORKER 100 mL/hr sodium chloride flush injection 5 mL 5 mL, IV, EVERY 12 HOURS (BlD), First dose on Mon07/08/24 at 0900, Until Discontinued, Routine Given 07/08/2024 8:13 AM FRONT WORKER 5 mL sodium chloride flush injection 5 mL 5 mL, IV, SEE ADMIN INSTRUCTIONS, Starting on Mon07/08/24 at 0634, Until Mon07/08/24 at 1819, Routine verapamiL (CALAN) tablet 80 mg 80 mg, Oral, DAILY, First dose on Mon07/08/24 at 0900, Until Discontinued, Routine, Previous Med: verapamiL (CALAN) 80 mg tablet - Orig Sig - Take 40 mg by mouth daily. Given 07/08/2024 8:14 AM FRONT WORKER 80 mg documented in this encounter Active and Recently Administered Medications Times are shown in FRONT WORKER. Scheduled Medication Order 07/06/2024 07/07/2024 07/08/2024 ARIPiprazole (ABILIFY) tablet 2 mg 2 mg, Oral, DAILY, First dose on Mon07/08/24 at 0900, Until Discontinued, Routine 0814 (Given - Provid er: Olga Millan [...] Routine 0418 (Given - Provid er: Lacey Bryson RN) naloxone (NARCAN) 0.4 mg/mL injection 0.1-0.4 [...] Lacey Bryson RN)0526 (Stopped - Provider: Lacey Bryson, RUBÉN) sodium chloride flush injection 5 mL 5 mL, IV, EVERY 12 HOURS (BlD), First dose on Mon07/08/24 at 0900, Until Discontinued, Routine 0813 (Given - Provid er: Olga Millan RN) [...] 0523 (New Bag - Prov ider: Lacey Bryson, RUBÉN)0815 (Stopped - Provider: Olga Millan RN) PRN [...] Routine documented in this encounter Care Teams Papier Mache Molder Relationship Specialty Start Date End Date Isis Duff MD [facility] [address] [address] PCP - General Family Practice 07/07/24 documented as of this encounter
--- OUTSIDE RECORDS SUMMARY | 2024-07-30 16:04 | XMS_ITS | Encounter Summary ---
Author Organization [facility] Address [address] [place] [address] Care Team Providers Care Diamond Finishing Supervisor Name Role Phone Dona Beyer MD Primary Care Provider [phone] Encounter Details Date Type Department Care Team [...] st Contact Info) Description 08/08/2024 1:40 PM BUCK PRESSER Office Visit [facility] GASTROENTEROLOGY - [address] [facility] [id number] [facility] [address] [place] [address] [place] [address] [facility] [address] [place] [address] documented as of this encounter Visit Diagnoses Not on filedocumented in this encounter Care Teams Diamond Finishing Supervisor Relationship Specialty Start Date End Date Dona Beyer MD PCP - General Hand Cultivator 05/14/20 07/06/24 documented as of this encounter
--- OUTSIDE RECORDS SUMMARY | 2024-07-30 16:04 | XMS_ITS | Encounter Summary ---
Author Organization [facility] Address [address] [facility] [place] [address] Care Team Providers Care Washcloth Folder Name Role Phone Molly Alvarado MD Primary Care Provider Reason for Visit * Reason Comments Sore Throat Congestion Encounter Details Date Type Department Care Team (Late st Contact Info) Description 11/12/2012 11:30 AM CDT Office Visit [facility] Medical [facility] - Family Medicine [address] [place] [id number] Molly Alvarado MD [address] [place] [address] [address] [place] [address] URI (upper respiratory infection) (Primary Dx) Social History Tobacco Use Types Packs/Day Years Used Date Smoking Tobacco: Never Smokeless Tobacco: Never Alcohol Use Standard Drinks/Week Comments Yes 0 (1 standard drink = 0.6 oz pur e alcohol) social - rare Sex and Gender Information Value Date Recorded Sex Assigned at Not on file Gender Identity Female 08/19/2022 7:56 AM DOCTOR OF MEDICINE Sexual Orientation Not on file documented as [...] site documented in this encounter Care Teams Washcloth Folder Relationship Specialty Start Date End Date Molly Alvarado MD PCP - General Family Medicine 12/05/11 08/25/15 documented as of this encounter
--- OUTSIDE RECORDS SUMMARY | 2024-07-30 16:04 | XMS_ITS | Encounter Summary ---
Author Organization [facility] Address [address] [place] [address] Care Team Providers Care Vp Publisher Development Name Role Phone Dona Beyer MD Primary Care Provider [phone] Encounter Details Date Type Department Care Team [...] st Contact Info) Description 08/08/2024 1:40 PM VASCULAR SURGERY PHYSICIAN Office Visit [facility] GASTROENTEROLOGY - [address] [facility] [phone] [facility] [address] [place] [address] [place] [address] [facility] [address] [place] [address] documented as of this encounter Visit Diagnoses Not on filedocumented in this encounter Care Teams Vp Publisher Development Relationship Specialty Start Date End Date Dona Beyer MD PCP - General Supervisor Smoke Control 05/14/20 07/06/24 documented as of this encounter
--- OUTSIDE RECORDS SUMMARY | 2024-07-30 16:04 | XMS_ITS | Encounter Summary ---
Author Organization [facility] Address [address] [facility] [place] [address] Care Team Providers Care Log Pond Worker Name Role Phone Unavailable Primary Care Provider Unavailabl e Encounter Details Date Type Department Care Team (Latest Contact Info) Description 12/22/2009 9:22 AM CDT - 12/22/2009 11:59 PM CDT Hospital Encounter [facility] DEFAULT [address] [place] [address] Covert, [place] [address] [place] [phone] Discharge Disposition: Home or Self Care Social History Tobacco Use Types Packs/Day Years Used Date Smoking Tobacco: Never Assessed Sex and Gender Information Value Date Recorded Sex Assigned at Not on file Gender Identity Female 08/19/2022 7:56 AM FACSIMILE OPERATOR Sexual Orientation Not on file documented [...] BRENNAN ? Released Date Time- 12/23/091611 ? Bank Secrecy Act Officer- DTC ? ADM- COVERT,ROBIN A ? ATT- [...] Releasing Awais BRENNAN Released Date Time- 12/23/091611 Bank Secrecy Act Officer- DTC ADM- COVERT,ROBIN Rahman ATT- COVERT,ROBIN Rahman REF- CON- PCP- SCP- Robin Su MD DIAGNOSTIC IMAGING O [facility] documented in this encounter Visit Diagnoses Diagnosis Tuberculin test reaction Nonspecific reaction to tuberculin skin test without active tuberculosis documented in this encounter
--- OUTSIDE RECORDS SUMMARY | 2024-07-30 16:04 | XMS_ITS | Encounter Summary ---
Author Organization [facility] Address [address] [place] [address] Care Team Providers Care Shot Examiner Name Role Phone Dona Beyer MD Primary Care Provider [phone] Encounter Details Date Type Department Care Team [...] st Contact Info) Description 08/08/2024 1:40 PM WINDING MACHINE OPERATOR Office Visit [facility] GASTROENTEROLOGY - [address] [facility] [address] [address] [facility] [address] [place] [address] [place] [address] [facility] [address] [place] [address] documented as of this encounter Visit Diagnoses Not on filedocumented in this encounter Care Teams Shot Examiner Relationship Specialty Start Date End Date Dona Beyer MD PCP - General Subsurface Augmentee Operator 05/14/20 07/06/24 documented as of this encounter
--- OUTSIDE RECORDS SUMMARY | 2024-07-30 16:04 | XMS_ITS | Encounter Summary ---
Author Organization [facility] Address [address] [facility] [place] [address] Care Team Providers Care Physical Testing Supervisor Name Role Phone Unavailable Primary Care Provider Unavailabl e Encounter Details Date Type Department Care Team (Late st Contact Info) Description 07/23/2010 11:15 AM CLINICAL NEUROPSYCHOLOGIST - 07/23/2010 11:59 PM CLINICAL NEUROPSYCHOLOGIST Hospital Encounter [facility] [address] [place] [address] Willi Huff Jr., [place] [address] Laboratory Discharge Disposition: Home or Self Care Social History Tobacco Use Types Packs/Day Years Used Date Smoking Tobacco: Never Assessed Sex and Gender Information Value Date Recorded Sex Assigned at Not on file Gender Identity Female 08/19/2022 7:56 AM CLINICAL NEUROPSYCHOLOGIST Sexual Orientation Not on file documented as of this encounter Miscellaneous Notes * Miscellaneous Scans - Document, Scanned - 07/27/2010 5:46 PM CLINICAL NEUROPSYCHOLOGIST * Miscellaneous Scans - Document, Scanned - 07/27/2010 5:46 PM CLINICAL NEUROPSYCHOLOGIST documented in this encounter Plan of Treatment Not on file documented as of this encounter Procedures Procedure Name Priority Date/Time Associated Diagnosis Comments CBC W AUTO DIFFERENTIAL [place] 07/23/2010 11:21 AM CLINICAL NEUROPSYCHOLOGIST GLUCOSE [place] 07/23/2010 11:21 AM CLINICAL NEUROPSYCHOLOGIST TSH [place] 07/23/2010 11:21 AM CLINICAL NEUROPSYCHOLOGIST IRON + TRANSFERRIN PANEL [place] 07/23/2010 11:21 AM CLINICAL NEUROPSYCHOLOGIST HCG BLOOD QUALITATIVE [place] 07/23/2010 11:21 AM CLINICAL NEUROPSYCHOLOGIST documented in this encounter Results * TSH (07/23/2010 11:21 AM CLINICAL NEUROPSYCHOLOGIST) TSH 2.437 0.55 - 4.78 uIU/ml [facility] BLOOD SPECIMEN / Unknown 07/23/2010 11:21 AM CLINICAL NEUROPSYCHOLOGIST 07/23/2010 11:21 AM CLINICAL NEUROPSYCHOLOGIST Willi Huff Jr., MD LAB - CHEMISTRY ORDERABLES Performing Organization Address City/State/[facility] Co de Phone Number [facility] [address] [place] [address] * (ABNORMAL) CBC W AUTO DIFFERENTIAL (07/23/2010 11:21 AM CLINICAL NEUROPSYCHOLOGIST) WBC 8.4 4.0 - 10.0 K/CUMM [facility] RBC 4.82 3.80 - 5.80 M/CUMM [facility] Hemoglobin 14.4 12.0 - 16.0 gm/dl [facility] Hematocrit 40.1 37.0 - 47.0 % [facility] MCV 83.2 80.0 - 100.0 fl [facility] MCH 29.9 26.0 - 34.0 pg [facility] MCHC 35.9 31.0 - 37.0 gm/dl [facility] Platelet Count 318 150 - 400 K/CUMM [facility] RDW 12.2 11.5 - 14.5 % [facility] Granulocytes % 40.1(L) 50 - 70 % [facility] Lymphocytes % 48.3(H) 20 - 40 % [facility] Monocytes % 9.2 0 - 12 % [facility] Eosinophils % 1.9 0 - 5 % [facility] Basophils % 0.4 0 - 2 % [facility] Granulocytes Absolute 3.37 2.00 - 7.00 x1000/cmm [facility] Lymphocytes Absolute 4.06(H) 0.80 - 4.00 x1000/cmm [facility] Monocytes Absolute 0.77 0.00 - 1.20 x1000/cmm [facility] Eosinophils Absolute 0.16 0.00 - 0.50 x1000/cmm [facility] Basophils Absolute 0.03 0.00 - 0.20 x1000/cmm [facility] BLOOD SPECIMEN / Unknown 07/23/2010 11:21 AM CLINICAL NEUROPSYCHOLOGIST 07/23/2010 11:21 AM CLINICAL NEUROPSYCHOLOGIST Willi Huff Jr., MD LAB - HEMATOLOGY ORDERABLES Performing Organization Address [facility] de Phone Number [facility] [address] [place], [place] [id number] * GLUCOSE (07/23/2010 11:21 AM CLINICAL NEUROPSYCHOLOGIST) Pathologist [facility] Glucose 85 65 - 105 mg/dl [facility] BLOOD SPECIMEN / Unknown 07/23/2010 11:21 AM CLINICAL NEUROPSYCHOLOGIST 07/23/2010 11:21 AM CLINICAL NEUROPSYCHOLOGIST Willi Huff Jr., MD LAB - CHEMISTRY ORDERABLES Performing Organization Address [facility] Phone Number [facility] [address] [place] [address] * IRON + TRANSFERRIN PANEL (07/23/2010 11:21 AM CLINICAL NEUROPSYCHOLOGIST) Pathologist [facility] Iron 139.4 50 - 170 ug/dl [facility] Transferrin 256.7 250 - 380 mg/dl [facility] TIBC Calculated 321 250 - 450 ug/dl [facility] Iron Saturation % 43 20 - 55 % [facility] BLOOD SPECIMEN / Unknown 07/23/2010 11:21 AM CLINICAL NEUROPSYCHOLOGIST 07/23/2010 11:21 AM CLINICAL NEUROPSYCHOLOGIST Willi Huff Jr., MD LAB - CHEMISTRY ORDERABLES Performing Organization Address [facility] de Phone Number [facility] [address] [place] [phone] * HCG BLOOD QUALITATIVE (07/23/2010 11:21 AM CLINICAL NEUROPSYCHOLOGIST) Pathologist [facility] HCG Qual Serum Negative SEE BELOW [facility] Comment: Normal, Negative ? Pos, Sensitivity ? 25 MIU/ML BLOOD SPECIMEN / Unknown 07/23/2010 11:21 AM CLINICAL NEUROPSYCHOLOGIST 07/23/2010 11:21 AM CLINICAL NEUROPSYCHOLOGIST Willi Huff Jr., MD LAB - CHEMISTRY ORDERABLES Performing Organization Address City/State/[facility] Co de Phone Number [facility] [address] [place] [address] documented in this encounter Visit Diagnoses Not on filedocumented in this encounter
--- OUTSIDE RECORDS SUMMARY | 2024-07-30 16:04 | XMS_ITS | Encounter Summary ---
Author Organization [facility] Address [address] [facility] [address] Care Team Providers Care Site Lead Name Role Phone Molly Alvarado MD Primary [...] 03/02/2013 11:07 PM CDT Emergency ER at [address] [id number] Yaniv Tamayo DO [address] [place] [address] [place] [address] Chest Pain; Dizziness; Abdominal pain, [...] file Gender Identity Female 08/19/2022 7:56 AM LINK WIRE FABRIC MACHINE OPERATOR Sexual Orientation Not on file [...] ?? Avoid drinking alcohol. ?? Only take [id number] or prescription medicine for pain, discomfort, or [...] Document Reviewed: 03/05/2009 ExitCare?? Patient Information ??2013 Gengo. Vertigo (Dizziness) Your exam shows you have [...] weakness of the limbs. Document Released: 07/31/2006 GOVECS?? Patient Information ??2009 Gengo. Biliary Colic Biliary colic is a steady [...] Document Reviewed: 03/12/2009 ExitCare?? Patient Information ??2012 Gengo. * Discharge Instructions* Document, Scanned - 03/04/2013 3:24 PM CDT documented in this encounter Medications at Time of Discharge Medication Sig Dispensed Refills Start Date End Date calcium carbonate (TUMS) 500 MG chew tablet Take 1 Tab by mouth daily with food. 04/03/2013 famotidine (PEPCID) 40 MG tablet Take 40 mg by mouth once daily. 12/04/2015 mometasone (NASONEX) 50 MCG/ACT nasal spray Hampton 1 Hampton into each nostril once daily. 1 Inhaler [...] CDT Monitor alerting. RUBÉN Camilo notified. * Yaniv Tamayo DO - 03/02/2013 7:42 PM CDT Images from the original note were not included. Provider contact with the patient: 03/02/2013 19:42 [place] [id number] [facility] EMERGENCY DEPARTMENT History Chief Complaint Patient [...] ??? mometasone (NASONEX) 50 MCG/ACT nasal spray Hampton 1 Hampton into each nostril once daily. 1 Inhaler [...] 44-73 % Lymph 51 (*) 20-43 % Chambers 6 5-13 % Eos 1 0-6 % Baso 0 0-2 % Immature Grans 0.2 0-1 % Neutro Abs 3.39 2.01-7.14 x10^9/L Lymph Abs 4.23 (*) 1.07-3.94 x10^9/L Chambers Abs 0.51 0.26-1.07 x10^9/L Eosin Abs 0.07 [...] to follow-up with: Molly Alvarado MD [facility] [address] [facility] [id number] Call in 1 day Disposition: Discharged I [...] 74 - 106 mg/dL 03/02/2013 8:28 PM [facility] Sodium 141 136 - 145 mmol/L 03/02/2013 8:28 PM [facility] Potassium 3.4(L) 3.5 - 5.1 mmol/L 03/02/2013 8:28 PM [facility] Chloride 106 98 - 107 mmol/L 03/02/2013 8:28 PM [facility] CO2 19(L) 22 - 31 mmol/L 03/02/2013 8:28 PM [facility] Calcium 10.3(H) 8.5 - 10.1 mg/dL 03/02/2013 8:28 PM [facility] Anion Gap 16(H) 5 - 15 mmol/L 03/02/2013 8:28 PM [facility] BUN 13 7 - 21 mg/dL 03/02/2013 8:28 PM [facility] Creatinine 0.78 0.50 - 1.30 mg/dL 03/02/2013 8:28 PM [facility] eGFR by MDRD >60 >60 ml/min/1.7 3m2 03/02/2013 8:28 PM [facility] eGFR by MDRD >60 >60 ml/min/1.7 3m2 03/02/2013 8:28 PM CDT [facility] Alkaline Phosphatase 74 38 - 126 U/L 03/02/2013 8:28 PM CDT [facility] ALT 26 12 - 78 U/L 03/02/2013 8:28 PM CDT [facility] AST 18 5 - 40 U/L 03/02/2013 8:28 PM CDT [facility] Protein Total 8.4(H) 6.4 - 8.2 gm/dL 03/02/2013 8:28 PM CDT [facility] Albumin 4.2 3.4 - 5.0 gm/dL 03/02/2013 8:28 PM CDT [facility] Bilirubin Total 0.4 0.2 - 1.0 mg/dL 03/02/2013 8:28 PM CDT [facility] Blood specimen (specimen) BLOOD SPECIMEN / Unknown 03/02/2013 8:08 PM CDT 03/02/2013 8:11 PM CDT Yaniv Tamayo DO LAB - CHEMISTRY TIFFANIE WILLS [facility] Organization Address City/State/ZIP Co de Phone Number [facility] [address] [place] [address] * (ABNORMAL) CBC W AUTO DIFFERENTIAL (03/02/2013 8:08 PM CDT) WBC 8.2 4.4 - 10.7 x10^9/L 03/02/2013 8:13 PM CDT [facility] RBC 4.80 3.80 - 5.20 x10^12/L 03/02/2013 8:13 PM CDT [facility] Hemoglobin 14.4 12.0 - 15.6 g/dL 03/02/2013 8:13 PM CDT [facility] Hematocrit 40.2 35.9 - 45.5 % 03/02/2013 8:13 PM CDT [facility] MCV 83.8 80.7 - 98.3 fl 03/02/2013 8:13 PM CDT [facility] MCH 30.0 26.7 - 34.0 pg 03/02/2013 8:13 PM CDT [facility] MCHC 35.8 30.8 - 35.9 gm/dL 03/02/2013 8:13 PM CDT [facility] Platelet Count 285 153 - 416 x10^9/L 03/02/2013 8:13 PM CDT [facility] RDW-CV 13.5 12.1 - 14.9 % 03/02/2013 8:13 PM CDT [facility] MPV 10.7 9.4 - 12.9 fl 03/02/2013 8:13 PM CDT [facility] Neutrophils % 41(L) 44 - 73 % 03/02/2013 8:13 PM CDT [facility] Lymphocytes % 51(H) 20 - 43 % 03/02/2013 8:13 PM CDT [facility] Monocytes % 6 5 - 13 % 03/02/2013 8:13 PM CDT [facility] Eosinophils % 1 0 - 6 % 03/02/2013 8:13 PM CDT [facility] Basophils % 0 0 - 2 % 03/02/2013 8:13 PM CDT [facility] Immature Granulocytes 0.2 0 - 1 % 03/02/2013 8:13 PM CDT [facility] Neutrophil Absolute 3.39 2.01 - 7.14 x10^9/L 03/02/2013 8:13 PM CDT [facility] Lymphocytes Absolute 4.23(H) 1.07 - 3.94 x10^9/L 03/02/2013 8:13 PM CDT [facility] Monocytes Absolute 0.51 0.26 - 1.07 x10^9/L 03/02/2013 8:13 PM CDT [facility] Eosinophils Absolute 0.07 0 - 0.47 x10^9/L 03/02/2013 8:13 PM CDT [facility] Basophils Absolute 0.02 0 - 0.08 x10^9/L 03/02/2013 8:13 PM CDT [facility] nRBC Auto 0 03/02/2013 8:13 PM CDT [facility] Blood specimen (specimen) BLOOD SPECIMEN / Unknown 03/02/2013 8:08 PM CDT 03/02/2013 8:11 PM CDT Yaniv Tamayo DO LAB - HEMATOLOGY ORD ERABLES [facility] [address] [place] [id number] * TSH (03/02/2013 8:08 PM CDT) [facility] TSH 1.34 0.358 - 3.740 uIU/mL 03/02/2013 10:48 PM CDT [facility] Blood specimen (specimen) BLOOD SPECIMEN / Unknown 03/02/2013 8:08 PM CDT 03/02/2013 8:11 PM CDT Yaniv Tamayo Jaeger LAB - CHEMISTRY TIFFANIE WILLS Performing Organization Address City/[facility]/ZIP Co de Phone Number [facility] [address] [facility] [place] [address] * AMYLASE BLOOD (03/02/2013 8:08 PM CDT) [facility] Amylase 44 15 - 115 U/L 03/02/2013 9:32 PM CDT [facility] Blood specimen (specimen) BLOOD SPECIMEN / Unknown 03/02/2013 8:08 PM CDT 03/02/2013 8:55 PM CDT Yaniv Tamayo Jaeger LAB - CHEMISTRY TIFFANIE WILLS Performing Organization Address [facility]/ZIP Co de Phone Number [facility] [address] [facility] [place] [address] * LIPASE BLOOD (03/02/2013 8:08 PM CDT) [facility] Lipase 145 73 - 393 U/L 03/02/2013 9:32 PM CDT [facility] Blood specimen (specimen) BLOOD SPECIMEN / Unknown 03/02/2013 8:08 PM CDT 03/02/2013 8:55 PM CDT Yaniv Priceski Jaeger LAB - CHEMISTRY TIFFANIE WILLS Performing Organization Address [facility]/ZIP Co de Phone Number [facility] [address] [facility] [place] [address] * (ABNORMAL) CARDIAC MARKER PANEL (03/02/2013 8:08 PM CDT) [facility] Troponin I <0.015 <0.100 ng/mL 03/02/2013 9:11 PM CDT [facility] CK 93 35 - 232 U/L 03/02/2013 9:11 PM CDT [facility] CK-MB 0.8 0.0 - 5.0 ng/mL 03/02/2013 9:11 PM CDT [facility] CK Index % 0.9(L) 4.0 - 25.0 % 03/02/2013 9:11 PM CDT [facility] Blood specimen (specimen) BLOOD SPECIMEN / Unknown 03/02/2013 8:08 PM CDT 03/02/2013 8:55 PM CDT Yaniv Tamayo DO LAB - CHEMISTRY TIFFANIE WILLS Performing Organization Address [facility] Co de Phone Number [facility] [address] [place] [address] * EKG 12-LEAD (03/02/2013 7:44 PM CDT) Ventricular Rate 68 BPM [facility] Atrial Rate 68 BPM [facility] P-R Interval 102 ms [facility] QRS Duration ms 82 ms [facility] Q-T Interval ms 396 ms [facility] QTC Calculation (Bezet) 421 ms [facility] Calculated P [place] 50 degrees [facility] M[facility] Calculated R [place] 48 degrees [facility] MUSE Calculated T [place] 55 degrees [facility] Interpretation EKG Sinus rhythm with short CA Nonspecific ST abnormality Abnormal ECG No previous ECGs available Confirmed by MD PEDRO, ROBIN Cuenca (3) on 03/05/2013 7:40:31 AM [facility] MUSE 03/02/2013 7:44 PM CDT 03/05/2013 7:40 AM CDT Narrative [facility] - 03/05/2013 7:42 AM CDT Procedure Note Document, Scanned - 03/04/2013 8:42 AM CDT Transcriptions Document, Scanned - 03/05/2013 7:42 AM CDT Yaniv Tamayo DO ECG ORDERABLES Performing Organization Address City/[facility]/ZIP Co de Phone Number [facility] MUSE documented in this encounter Visit [...] RN) documented in this encounter Care Teams Site Lead Relationship Specialty Start Date End Date Molly Alvarado MD PCP - General Family Medicine 12/05/11 08/25/15 documented as of this encounter
--- OUTSIDE RECORDS SUMMARY | 2024-07-30 16:04 | XMS_ITS | Encounter Summary ---
Author Organization [facility] Address [address] [place] [address] Care Team Providers Care Physician Surgeon Name Role Phone Dona Beyer MD Primary Care Provider [phone] Encounter Details Date Type Department Care Team [...] st Contact Info) Description 08/08/2024 1:40 PM HEARING AIDE TECHNICIAN Office Visit [facility] - [address] [facility] [address] [address] [facility] [address] [place] [address] [place] [address] [facility] [address] [place] [address] documented as of this encounter Visit Diagnoses Not on filedocumented in this encounter Care Teams Physician Surgeon Relationship Specialty Start Date End Date Dona Beyer MD PCP - General Health Care Marketing Specialist 05/14/20 07/06/24 documented as of this encounter
--- OUTSIDE RECORDS SUMMARY | 2024-07-30 16:04 | XMS_ITS | Encounter Summary ---
Author Organization [facility] Address [address] [facility] [address] Care Team Providers Care Supervisor Typesetting Name Role Phone Daja Orr MD Primary Care Provider [phone] Reason for Referral * - Closed Specialty Diagnoses / Procedures Referred By Contac t Referred To Contact Diagnoses Family history of breast cancer in first degree relative Procedures MAMMO SCREENING [place] [address] [place] [address] Referral ID Status Reason Start Date Expiration Date Visits Re quested Visits Authorized [id number] Closed 08/23/2011 02/19/2012 1 1 Reason for Visit * Reason Comments Establish Care Encounter Details Date Type Department Care Team (Late st Contact Info) Description 06/17/2011 11:00 AM CDT Office Visit [facility] - Family Medicine [address] [place] [address] [place] [address] [place] [address] Family history of breast cancer in first degree relative (Primary Dx); Vaginal vestibulitis Social History Tobacco Use Types Packs/Day Years Used Date Smoking Tobacco: Never Alcohol Use Standard Drinks/Week Comments Yes 0 (1 standard drink = 0.6 oz pur e alcohol) social Sex and Gender Information Value Date Recorded Sex Assigned at Not on file Gender Identity Female 08/19/2022 7:56 AM MERCHANDISING SPECIALIST Sexual Orientation Not on file documented [...] work today. She will check with her aoc director intelligence officer about more triacinolone, but I will give her an emergency supply if she needs it she may call back. documented in this encounter Plan of Treatment Not on file documented as of this encounter Procedures Procedure Name Priority Date/Time Associated Diagnosis Comments MAMMO BILAT SCREENING Routine 08/23/2011 7:59 AM MERCHANDISING SPECIALIST Family history of breast cancer in first degree relative documented in this encounter Results * MAMMO SCREENING DIGITAL IMAGE BILAT (08/23/2011 7:59 AM MERCHANDISING SPECIALIST) Anatomical Region Laterality Modality Breast Bilateral Mammography 08/23/2011 12:0 7 PM MERCHANDISING SPECIALIST Narrative 08/23/2011 12:27 PM MERCHANDISING SPECIALIST DIGITAL BILATERAL SCREENING MAMMOGRAMS WITH CAD CORRELATION [...] if suspicious findings are present clinically. An [employer]ified Facility Procedure Note [...] if suspicious findings are present clinically. An [employer]ified Facility Daja Orr MD MAMMO ORDERABLES documented in this encounter Visit Diagnoses Diagnosis Family history of breast cancer in first degree relative- Primary Family history of malignant neoplasm of breast Vaginal vestibulitis Vaginitis and vulvovaginitis, unspecified documented in this encounter Care Teams Supervisor Typesetting Relationship Specialty [place] [id number] [address] PCP - General Internal Medicine 06/17/11 12/04/11 documented as of this encounter
--- OUTSIDE RECORDS SUMMARY | 2024-07-30 16:04 | XMS_ITS | Encounter Summary ---
Author Organization [facility] Address [address] [place] [address] Care Team Providers Care Family Services Coordinator Name Role Phone Molly Alvarado MD Primary Care Provider Reason for Visit * Reason Comments Follow-up Encounter Details Date Type Department Care Team (Late st Contact Info) Description 02/14/2012 10:30 AM CDT Office Visit [facility] - Family Medicine [address] [place] [address] [address] [place] [address] Molly Alvarado MD [address] [place] [address] [address] [place] [address] Allergic rhinitis (Primary Dx); Anxiety [...] file Gender Identity Female 08/19/2022 7:56 AM GLASS BEVELER Sexual Orientation Not on file documented as [...] 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 documented in this encounter Plan of Treatment Not on file documented as of this encounter Visit Diagnoses Diagnosis Allergic rhinitis- Primary Allergic rhinitis, cause unspecified Anxiety state, unspecified Acute URI Acute upper respiratory infections of unspecified site documented in this encounter Care Teams Family Services Coordinator Relationship Specialty Start Date End Date Molly Alvarado MD PCP - General Family Medicine 12/05/11 08/25/15 documented as of this encounter
--- OUTSIDE RECORDS SUMMARY | 2024-07-30 16:04 | XMS_ITS | Encounter Summary ---
Author Organization [facility] Address [address] [place] [address] Care Team Providers Care Casing Grader Name Role Phone Dona Beyer MD Primary Care Provider [phone] Encounter Details Date Type Department Care Team [...] st Contact Info) Description 08/08/2024 1:40 PM LOCAL SALES ASSOCIATE Office Visit [facility] - [address] [facility] 102 [address] [facility] [address] [place] [address] [place] [address] [facility] [address] [place] [address] documented as of this encounter Visit Diagnoses Not on filedocumented in this encounter Care Teams Casing Grader Relationship Specialty Start Date End Date Dona Beyer MD PCP - General Gun Synchronizer 05/14/20 07/06/24 documented as of this encounter
--- OUTSIDE RECORDS SUMMARY | 2024-07-30 16:04 | XMS_ITS | Encounter Summary ---
Author Organization [facility] Address [address] [place] [address] Care Team Providers Care Speech Language Therapist Name Role Phone oDna Beyer MD Primary Care Provider [phone] Reason for Visit * Reason Onset Date Comments Needs Appointment 04/06/2023 Encounter Details Date Type Department Care Team (Late st Contact Info) Description 04/06/2023 Telephone [facility] [address] [place] [address] Uyen Bingham MD [address] [place] [address] [place] [address] Needs Appointment Social History Tobacco [...] at this time. Corin Fuchs RN, BSN Superintendent [employer] [facility] [address] [place] [address] Dr, [address] [place] [address] Office: [phone] [facility] [address] [place] [address] Office: [phone] * Telephone Encounter - Corin Beverly RN - 04/06/2023 2:04 PM CDT ----- Message from Uyen Bazzi MD sent at 04/06/2023 1:37 PM CDT ----- Patient requested refill, needs WWE Thanks! documented in this encounter Plan of Treatment Upcoming Encounters Date Type Department Care Team (Late st Contact Info) Description 08/08/2024 1:40 PM BAKER TEST Office Visit [facility] GASTROENTEROLOGY - [address] [facility] 102 [address] [facility] 102 [place] [address] [place] [address] [facility] [address] [place] [address] documented as of this encounter Visit Diagnoses Not on filedocumented in this encounter Care Teams Speech Language Therapist Relationship Specialty Start Date End Date Dona Beyer MD PCP - General Fur Cutter 05/14/20 07/06/24 documented as of this encounter
--- OUTSIDE RECORDS SUMMARY | 2024-07-30 16:04 | XMS_ITS | Encounter Summary ---
Author Organization [facility] Address [address] [place] [address] Care Team Providers Care Staffing Associate Name Role Phone Daja Orr MD Primary Care Provider [phone] Reason for Referral * - Closed Specialty Diagnoses / Procedures Referred By Contac t Referred To Contact Diagnoses Nausea Belching Procedures US ABDOMEN COMPLETE Cherelle Mason APRN-CNP [id number] [employer] [address] [place] [address] Referral ID Status Reason Start Date Expiration Date Visits Re quested Visits Authorized [id number] Closed 08/02/2011 01/29/2012 1 1 RITY SYSTEMS INTEGRATOR Reason for Visit * Reason Comments Nausea 11 days Pain Abdominal 11 days Encounter Details Date Type Department Care Team (Late st Contact Info) Description 08/02/2011 1:30 PM SECURITY SYSTEMS INTEGRATOR Office Visit [facility] - Family Medicine [email or web address] [place] [address] Cherelle Mason APRN-VEHICLE MAINTENANCE SUPERVISOR [id number] [facility] Consumer Agent Portal (CAP) [address] [place] [address] Nausea (Primary Dx); Belching Social History Tobacco Use Types Packs/Day Years Used Date Smoking Tobacco: Never Alcohol Use Standard Drinks/Week Comments Yes 0 (1 standard drink = 0.6 oz pur e alcohol) social Sex and Gender Information Value Date Recorded Sex Assigned at Not on file Gender Identity Female 08/19/2022 7:56 AM SECURITY SYSTEMS INTEGRATOR Sexual Orientation Not on file documented as of this encounter Last Filed Vital Signs Vital Sign Reading Time Taken Comments Blood Pressure 110/60 08/02/2011 1:14 PM SECURITY SYSTEMS INTEGRATOR Pulse 76 08/02/2011 1:13 PM SECURITY SYSTEMS INTEGRATOR Temperature 36.7 ??C (98.1 ??F) 08/02/2011 1:26 PM CS T Respiratory Rate 16 08/02/2011 1:26 PM SECURITY SYSTEMS INTEGRATOR Oxygen Saturation - - Inhaled Oxygen Concentration - - Weight 43.5 kg (96 lb) 08/02/2011 1:12 PM SECURITY SYSTEMS INTEGRATOR Height 154.9 cm (5' 1 ) 08/02/2011 1:12 PM SECURITY SYSTEMS INTEGRATOR Body Mass Index 18.14 08/02/2011 1:12 PM SECURITY SYSTEMS INTEGRATOR documented in this encounter Patient Instructions * Patient Instructions* Cherlele Mason FNP - 08/02/2011 1:31 PM SECURITY SYSTEMS INTEGRATOR We are checking an ultrasound of the abdomen and will call with results. We are checking labs and will call with results. Go to [address] and be prepared to give them a urinalysis. Depending upon labs we may order new medication. RITY SYSTEMS INTEGRATOR documented in this encounter Progress Notes * Cherelle Mason FNP - 08/04/2011 4:10 PM CSTQuick Note: No uti. RITY SYSTEMS INTEGRATOR * Cherelle Mason FNP - 08/03/2011 4:07 PM CSTQuick Note: Call to report that the labs are normal. US of abdomen normal. Needs HIDA scan. RITY SYSTEMS INTEGRATOR * Cherelle Mason FNP - 08/03/2011 4:05 PM CST Call to report that the labs are normal. US of abdomen normal. Needs HIDA scan. RITY SYSTEMS INTEGRATOR * Cherelle Mason FNP - 08/02/2011 4:17 [...] these issues and agrees with the plan. RITY SYSTEMS INTEGRATOR documented in this encounter Plan of Treatment Not on file documented as of this encounter Procedures Procedure Name Priority Date/Time Associated Diagnosis Comments CULTURE URINE COMPREHENSIVE Routine 08/02/2011 1:56 PM SECURITY SYSTEMS INTEGRATOR Nausea Belching HELICOBACTER PYLORI ANTIBODIES (IGG,IGA,IGM) Routine 08/02/2011 1:56 PM SECURITY SYSTEMS INTEGRATOR Nausea Belching URINALYSIS REFLEX TO MICROSCOPIC NO CULTURE Routine 08/02/2011 1:56 PM SECURITY SYSTEMS INTEGRATOR Nausea Belching URINE MICROSCOPIC ONLY Routine 1 1:56 PM SECURITY SYSTEMS INTEGRATOR Nausea Belching COMPREHENSIVE METABOLIC PANEL Routine 08/02/2011 1:56 PM SECURITY SYSTEMS INTEGRATOR Nausea Belching LIPASE BLOOD Routine 08/02/2011 1:56 PM SECURITY SYSTEMS INTEGRATOR Nausea Belching TSH Routine 08/02/2011 1:56 PM SECURITY SYSTEMS INTEGRATOR Nausea Belching T4 FREE Routine 08/02/2011 1:56 PM SECURITY SYSTEMS INTEGRATOR Nausea Belching LIPID PROFILE Routine 08/02/2011 1:56 PM SECURITY SYSTEMS INTEGRATOR Nausea Belching CBC W AUTO DIFFERENTIAL Routine 08/02/2011 1:49 PM SECURITY SYSTEMS INTEGRATOR Nausea Belching AMYLASE BLOOD Routine 08/02/2011 1:49 PM SECURITY SYSTEMS INTEGRATOR Nausea Belching documented in this encounter Results * US ABDOMEN COMPLETE (08/02/2011 2:45 PM SECURITY SYSTEMS INTEGRATOR) Anatomical Region Laterality Modality Abdomen Ultrasound 08/02/2011 2:53 PM SECURITY SYSTEMS INTEGRATOR Impressions 08/02/2011 2:58 PM SECURITY SYSTEMS INTEGRATOR Unremarkable abdominal ultrasound. Narrative 08/02/2011 2:58 PM SECURITY SYSTEMS INTEGRATOR ULTRASOUND ABDOMEN COMPLETE INDICATION: Abdominal pain. FINDINGS: [...] unremarkable. IMPRESSION Unremarkable abdominal ultrasound. Cherelle Mason PHYSICAL THER-VEHICLE MAINTENANCE SUPERVISOR US ORDERABLES * CULTURE URINE COMPREHENSIVE (PO REF LAB) (08/02/2011 1:56 PM SECURITY SYSTEMS INTEGRATOR) Urine Culture Comprehensive Final report [facility] ACCOUNT BILL Result 1 [facility] ACCOUNT BILL Comment:No growth in 36 - 48 hours. URINE / Unknown 08/02/2011 1 :56 PM SECURITY SYSTEMS INTEGRATOR 08/02/2011 3:56 PM SECURITY SYSTEMS INTEGRATOR Narrative Resulting Agency Comment [facility] [address] ??[facility] [phone] Cherelle Mason PHYSICAL THER-VEHICLE MAINTENANCE SUPERVISOR LAB - MICROBIOL OGY ORDERABLES [facility] ACCOUNT BILL * URINALYSIS MICROSCOPIC ONLY (08/02/2011 1:56 PM SECURITY SYSTEMS INTEGRATOR) WBC UA 0-5 0 - 5 /hpf [...] (specimen) URINE / Unknown 08/02/2011 1:56 PM SECURITY SYSTEMS INTEGRATOR 08/02/2011 3:56 PM SECURITY SYSTEMS INTEGRATOR Narrative Resulting Agency Comment [facility] [address] ??[facility] [phone] Cherelle Mason PHYSICAL THER-VEHICLE MAINTENANCE SUPERVISOR LAB - URINALYSI S ORDERABLES [facility] ACCOUNT BILL * URINALYSIS ROUTINE AUTO (08/02/2011 1:56 PM SECURITY SYSTEMS INTEGRATOR) Specific [place] UA 1.019 1.005 - 1.030 [facility] ACCOUNT [...] URINE / Unknown 08/02/2011 1 :56 PM SECURITY SYSTEMS INTEGRATOR 08/02/2011 3:56 PM SECURITY SYSTEMS INTEGRATOR Narrative Resulting Agency Comment [facility] [address] ??[facility] [phone] Cherellereina Rodaslayla PHYSICAL THER-VEHICLE MAINTENANCE SUPERVISOR LAB - URINALYSI S ORDERABLES [facility] ACCOUNT BILL * T4 FREE (08/02/2011 1:56 PM SECURITY SYSTEMS INTEGRATOR) T4 Free 1.36 0.82 - 1.77 ng/dL [facility] ACCOUNT BILL Blood specimen (specimen) BLOOD SPECIMEN / Unknown 08/02/2011 1:56 PM SECURITY SYSTEMS INTEGRATOR 08/02/2011 3:56 PM SECURITY SYSTEMS INTEGRATOR Narrative Resulting Agency Comment [facility] [address] ??[facility] [phone] Cherelle Mason PHYSICAL THER-VEHICLE MAINTENANCE SUPERVISOR LAB - CHEMISTRY ORDERABLES Performing Organization Address [facility] Co de Phone Number [facility] ACCOUNT BILL * TSH (08/02/2011 1:56 PM SECURITY SYSTEMS INTEGRATOR) TSH 2.740 0.450 - 4.500 uIU/mL [facility] ACCOUNT BILL Blood specimen (specimen) BLOOD SPECIMEN / Unknown 08/02/2011 1:56 PM SECURITY SYSTEMS INTEGRATOR 08/02/2011 3:56 PM SECURITY SYSTEMS INTEGRATOR Narrative Resulting Agency Comment [facility] [address] ??[place] [phone] Cherelle Mason PHYSICAL THER-VEHICLE MAINTENANCE SUPERVISOR LAB - CHEMISTRY ORDERABLES Performing Organization Address [facility] de Phone Number [facility] ACCOUNT BILL * HELICOBACTER PYLORI ANTIBODIES (IGG,IGA,IGM) (PO REF LAB) (08/02/2011 1:56 PM SECURITY SYSTEMS INTEGRATOR) Helicobacter pylori Antibody IgG <0.9 0.0 - [...] BLOOD SPECIMEN / Unknown 08/02/2011 1:56 PM SECURITY SYSTEMS INTEGRATOR 08/02/2011 3:56 PM SECURITY SYSTEMS INTEGRATOR Narrative Resulting Agency Comment [facility] [place] [address] ??[facility] [phone] Cherelle Mason APRN-VEHICLE MAINTENANCE SUPERVISOR LAB - SEROLOGY ORDERABLES Performing Organization Address [facility] de Phone Number [facility] ACCOUNT BILL * (ABNORMAL) LIPID PROFILE (08/02/2011 1:56 PM SECURITY SYSTEMS INTEGRATOR) Cholesterol 205(H) 100 - 199 mg/dL [facility] [...] BLOOD SPECIMEN / Unknown 08/02/2011 1:56 PM SECURITY SYSTEMS INTEGRATOR 08/02/2011 3:56 PM SECURITY SYSTEMS INTEGRATOR Narrative Resulting Agency Comment [facility] [place] [address] ??[place] [phone] Cherelle Marlon PHYSICAL THER-VEHICLE MAINTENANCE SUPERVISOR LAB - CHEMISTRY ORDERABLES Performing Organization Address [facility] de Phone Number [facility] ACCOUNT BILL * LIPASE BLOOD (08/02/2011 1:56 PM SECURITY SYSTEMS INTEGRATOR) Lipase 34 0 - 59 U/L [facility] A CCOUNT BILL Blood specimen (specimen) BLOOD SPECIMEN / Unknown 08/02/2011 1:56 PM SECURITY SYSTEMS INTEGRATOR 08/02/2011 3:56 PM SECURITY SYSTEMS INTEGRATOR Narrative Resulting Agency Comment [facility] [address] ??[facility] [phone] Cherelle Mason PHYSICAL THER-VEHICLE MAINTENANCE SUPERVISOR LAB - CHEMISTRY ORDERABLES [facility] ACCOUNT BILL * COMPREHENSIVE METABOLIC PANEL (08/02/2011 1:56 PM SECURITY SYSTEMS INTEGRATOR) Glucose 81 65 - 99 mg/dL [facility] [...] BLOOD SPECIMEN / Unknown 08/02/2011 1:56 PM SECURITY SYSTEMS INTEGRATOR 08/02/2011 3:56 PM SECURITY SYSTEMS INTEGRATOR Narrative Resulting Agency Comment [facility] [address] ??[facility] [phone] Cherelle Mason PHYSICAL THER-VEHICLE MAINTENANCE SUPERVISOR LAB - CHEMISTRY ORDERABLES [facility] ACCOUNT BILL * (ABNORMAL) CBC W AUTO DIFFERENTIAL (08/02/2011 1:49 PM SECURITY SYSTEMS INTEGRATOR) WBC 7.8 4.0 - 10.5 x10E3/uL [facility] [...] BLOOD SPECIMEN / Unknown 08/02/2011 1:49 PM SECURITY SYSTEMS INTEGRATOR 08/02/2011 3:56 PM SECURITY SYSTEMS INTEGRATOR Narrative Resulting Agency Comment [facility] [address] ??[facility] [phone] Cherelle Mason APRN-VEHICLE MAINTENANCE SUPERVISOR LAB - HEMATOLOG Y ORDERABLES [facility] ACCOUNT BILL * AMYLASE BLOOD (08/02/2011 1:49 PM SECURITY SYSTEMS INTEGRATOR) Amylase 46 31 - 124 U/L [facility] ACCOUNT BILL Blood specimen (specimen) BLOOD SPECIMEN / Unknown 08/02/2011 1:49 PM SECURITY SYSTEMS INTEGRATOR 08/02/2011 3:56 PM SECURITY SYSTEMS INTEGRATOR Narrative Resulting Agency Comment [facility] [address] ??[facility] [phone] Cherelle Mason APRN-VEHICLE MAINTENANCE SUPERVISOR LAB - CHEMISTRY ORDERABLES [facility] ACCOUNT BILL documented in this encounter Visit Diagnoses Diagnosis Nausea- Primary Nausea alone Belching Flatulence, eructation, and gas pain Nausea Nausea alone Belching Flatulence, eructation, and gas pain documented in this encounter Care Teams Staffing Associate Relationship Specialty [place] [id number] [address] PCP - General Internal Medicine 06/17/11 12/04/11 documented as of this encounter
--- OUTSIDE RECORDS SUMMARY | 2024-07-30 16:04 | XMS_ITS | Encounter Summary ---
Author Organization [facility] Address [address] [place] [address] Care Team Providers Care Shaper And Presser Name Role Phone Molly Alvarado MD Primary Care Provider Reason for Referral * - Closed Specialty Diagnoses / Procedures Referred By Contac t Referred To Contact Ultrasound Diagnoses Abdominal pain, RUQ (right upper quadrant) Procedures US GALLBLADDER us gallbladder Molly Alvarado MD [address] [place] [address] [facility] Ultrasound [address] [place] [address] Referral ID Status Reason Start Date Expiration Date Visits Re quested Visits Authorized [id number] Closed 03/06/2013 09/02/2013 1 1 Reason for Visit * - Closed Specialty Diagnoses / Procedures Referred By Contac t Referred To Contact Ultrasound Diagnoses Abdominal pain, RUQ (right upper quadrant) Procedures US GALLBLADDER us gallbladder Molly Alvarado MD [address] [place] [address] [facility] Ultrasound [address] [place] [address] Referral ID Status Reason Start Date Expiration Date Visits Re quested Visits Authorized [id number] Closed 03/06/2013 09/02/2013 1 1 Encounter Details Date Type Department Care Team (Late st Contact Info) Description 03/07/2013 7:30 AM CDT - 03/07/2013 11:59 PM CDT Hospital Encounter [facility] - Ultrasound [address] [id number] Molly Alvarado MD [address] [place] [place] [address] Discharge Disposition: Home or Self Care Social History Tobacco Use Types Packs/Day Years Used Date Smoking Tobacco: Never Smokeless Tobacco: Never Alcohol Use Standard Drinks/Week Comments Yes 0 (1 standard drink = 0.6 oz pur e alcohol) social - rare Sex and Gender Information Value Date Recorded Sex Assigned at Not on file Gender Identity Female 08/19/2022 7:56 AM SHOW OPERATIONS SUPERVISOR Sexual Orientation Not on file documented [...] quadrant documented in this encounter Care Teams Shaper And Presser Relationship Specialty Start Date End Date Molly Alvarado MD PCP - General Family Medicine 12/05/11 08/25/15 documented as of this encounter
--- OUTSIDE RECORDS SUMMARY | 2024-07-30 16:04 | XMS_ITS | Encounter Summary ---
Author Organization DNS[facility] Address [address] [place] [address] Care Team Providers Care Poultry Buyer Name Role Phone Geo Duff MD Primary Care Provider [phone] Reason for Visit * Reason Comments Chest Pain Chest pain that star jan about an hour ago. Pt endorses nausea and 1 syncopal episode * Auth/Cert (Routine) Specialty Diagnoses / Procedures Referred By María Elena rand Referred To Contact [facility] [address] [place] [address] [place] [address] Referral ID Status Reason Start Date Expiration Date Visits Re quested Visits Authorized [id number] 1 1 Encounter Details Date Type Department Care Team (Late st Contact Info) Description 07/06/2024 11:00 PM FOOD PREP WORKER - 07/07/2024 2:42 AM [facility] Emergency [facility] Emergency Services [address] [place] [address] Fermin Steve MD [address] [place] [address] Chest pain with low risk for [...] Comments Blood Pressure 117/80 07/07/2024 1:15 AM FOOD PREP WORKER Pulse 83 07/07/2024 1:50 AM FOOD PREP WORKER Temperature 36.3 ??C (97.4 ??F) 07/06/2024 10:[address] Respiratory Rate 15 07/07/2024 1:50 AM FOOD PREP WORKER Oxygen Saturation 98% 07/07/2024 1:50 AM FOOD PREP WORKER Inhaled Oxygen Concentration - - Weight 63.5 kg (140 lb) 07/06/2024 10:59 PM FOOD PREP WORKER Height 154.9 cm (5' 1 ) 07/06/2024 10:59 PM FOOD PREP WORKER Body Mass Index 26.45 07/06/2024 10:59 PM FOOD PREP WORKER documented in this encounter Discharge Instructions * Discharge Instructions* Fermin Steve MD - 07/07/2024 2:27 AM FOOD PREP WORKER Your EKG looks good, your heart monitoring [...] nausea if your Zofran is not working Elbert diet for a day or 2, drink [...] you have any questions, please call . PREP WORKER * Attachments The following attachments cannot be sent through Care Everywhere. * Nausea and Vomiting (Burkinan) * Fainting (Burkinan) * Chest Pain (Burkinan) documented in this encounter Medications at Time [...] from March 30 through April 09 at [facility]. Multiple tests were done.the specific findings. She [...] from March 30 through April 09 at [facility]. Multiple tests were done.the specific findings. She [...] Administered During the ED Stay from 07/06/2024 0778 to 07/07/2024 0249 Date/Time Order Dose Route Action 07/06/2024 2315 FOOD PREP WORKER sodium chloride flush injection 5 mL 5 mL IV Given 07/07/2024 0004 FOOD PREP WORKER prochlorperazine (COMPAZINE) injection 10 mg 10 mg IV Given 07/07/2024 0005 FOOD PREP WORKER diphenhydrAMINE (BENADRYL) injection 50 mg 50 mg IV Given 07/07/2024 0008 FOOD PREP WORKER pantoprazole (PROTONIX) 40 mg in sodium chloride 0.9% 10 mL injection 40 mg IV Given 07/07/2024 0026 FOOD PREP WORKER sodium chloride 0.9% bolus solution 1,000 mL 0 mL IV Stopped 07/06/2024 2356 FOOD PREP WORKER sodium chloride 0.9% bolus solution 1,000 mL 1,000 mL IV New Bag 07/07/2024 0235 FOOD PREP WORKER sodium chloride 0.9% infusion 0 mL IV Stopped 07/07/2024 0105 FOOD PREP WORKER sodium chloride 0.9% infusion -- IV New Bag 07/07/2024 0006 FOOD PREP WORKER morphine 4 mg/mL injection 4 mg 4 mg IV Given 07/07/2024 0143 FOOD PREP WORKER morphine 4 mg/mL injection 4 mg 4 mg IV Given 07/07/2024 0146 FOOD PREP WORKER aluminum - magnesium - simethicone (MYLANTA) 200-200-20 mg/5 mL oral [id number] mL 20 mL Oral Given 07/07/2024 0147 FOOD PREP WORKER lidocaine (XYLOCAINE) 2 % viscous oral solution [...] nausea if your Zofran is not working Elbert diet for a day or 2, drink lots of fluids but in small amounts at a time Contact your primary care doctor on Monday to make a follow-up appointment Return to the emergency department at any time if you feel worse or have any new concerns PREP WORKER documented in this encounter Plan of Treatment Upcoming Encounters Date Type Department Care Team (Late st Contact Info) Description 08/08/2024 1:40 PM FOOD PREP WORKER Office Visit [facility] GASTROENTEROLOGY - [address] [facility] [address] [address] [address] [facility] [address] [place] [address] [place] [address] [facility] [address] [place] [address] documented as of this encounter Procedures Procedure Name Priority Date/Time Associated Diagnosis Comments EXTRA TUBE (BLUE) Stat 07/06/2024 11: 55 PM FOOD PREP WORKER EXTRA TUBE Stat 07/06/2024 11:55 PM FOOD PREP WORKER TROPONIN BASELINE, 5TH GEN Stat 07/06/2024 11:55 PM FOOD PREP WORKER CBC WITH DIFFERENTIAL Stat 07/06/2024 11:55 PM FOOD PREP WORKER LIPASE Stat 07/06/2024 11:55 PM FOOD PREP WORKER HEMOGLOBIN A1C Stat 07/06/2024 11:55 PM FOOD PREP WORKER COMPREHENSIVE METABOLIC PANEL Stat 07/06/2024 11:55 PM FOOD PREP WORKER EKG 12-LEAD Stat 07/06/2024 10:58 PM FOOD PREP WORKER documented in this encounter Results * HEMOGLOBIN A1C (07/06/2024 11:55 PM FOOD PREP WORKER) HEMOGLOBIN A1C 5.5 <=5.6 % 07/07/2024 12:40 AM FOOD PREP WORKER [facility] - [facility]UC EST. AVG GLUCOSE, A1C 111 mg/dL 07/07/2024 12:40 AM FOOD PREP WORKER [facility] LAB[facility]ORY [facility] Blood Collection / Unknown 07/06/2024 11:55 PM FOOD PREP WORKER 07/07/2024 12:19 AM FOOD PREP WORKER Narrative [facility] - [facility]UC - 07/07/2024 12:40 AM FOOD PREP WORKER HGB A1C INTERPRETATION NORMAL: ? <5.7% PRE-DIABETES: 5.7 - 6.4% DIABETES: ? 6.5% OR GREATER Protocol Roula Morrison MD CHEMISTRY ORD ERABLES Performing Organization Address City/[facility]/ZIP Co de Phone Number [facility] - DUC CLIA # [id number] [facility] [address] [place] [address] * LIPASE (07/06/2024 11:55 PM FOOD PREP WORKER) Pathologist [facility] LIPASE 22 13 - 60 U/L 07/07/2024 12:14 AM FOOD PREP WORKER [facility] - DUC Blood Collection / Unknown 07/06/2024 11:55 PM FOOD PREP WORKER 07/07/2024 12:06 AM FOOD PREP WORKER Fermin Steve MD CHEMISTRY ORDERABLES Performing Organization Address City/[facility]/ZIP Co de Phone Number [facility] - DUC CLIA # [id number] [facility] [address] [place] [address] * EXTRA TUBE (BLUE) (07/06/2024 11:55 PM FOOD PREP WORKER) Blood Venipuncture / Unknown 07/06/2024 11:55 PM FOOD PREP WORKER 07/07/2024 12:03 AM FOOD PREP WORKER Protocol Roula Morrison MD HEMATOLOGY OR DERABLES Performing Organization Address City/[facility]/ZIP Co de Phone Number [facility] - DUC CLIA # [id number] [facility] [address] [place] [address] * (ABNORMAL) COMPREHENSIVE METABOLIC PANEL (07/06/2024 11:55 PM FOOD PREP WORKER) Pathologist [facility] SODIUM 134(L) 136 - 145 mmol/L 07/07/2024 12:19 AM FOOD PREP WORKER [facility] - [place] POTASSIUM 3.9 3.5 - 5.1 mmol/L 07/07/2024 12:19 AM FOOD PREP WORKER [facility] - [place] CHLORIDE 99 98 - 107 mmol/L 07/07/2024 12:19 AM FOOD PREP WORKER [facility] - [facility]UC CO2 16(L) 22 - 29 mmol/L 07/07/2024 12:19 AM [facility] LABORATORY [facility] CALCIUM 9.8 8.6 - 10.0 mg/dL 07/07/2024 12:19 AM [facility] LABORATORY [facility] [place] BUN 7 6 - 20 mg/dL 07/07/2024 12:19 AM [facility] LABORATORY [facility] [place] CREATININE 0.76 0.51 - 0.95 mg/dL 07/07/2024 12:19 AM [facility] LABORATORY [facility] GLUCOSE 145(H) 74 - 99 mg/dL 07/07/2024 12:19 AM [facility] LABORATORY [facility] [place] TOTAL PROTEIN 8.4 6.6 - 8.7 g/dL 07/07/2024 12:[address] [facility] [place] ALBUMIN 4.5 4.0 - 5.0 g/dL 07/07/2024 12:[address] [facility] - DUC BILIRUBIN TOTAL 0.3 <=1.2 mg/dL 07/07/2024 12:[address] [facility] [place] ALKALINE PHOSPHATASE 85 35 - 104 U/L 07/07/2024 12:[address] [facility] [place] AST 21 <40 U/L 07/07/2024 12:[address] [facility] [place] ALT 20 <=33 U/L 07/07/2024 12:[address] [facility] [place] GFR >60 >=60 mL/min/1.7 3 sq meter 07/07/2024 12:19 AM [facility] LABORATORY [facility] Comment:eGFR calculated with 2020 CKD-EPI equation. Vegetarian diet, extremely high or low muscle mass, and may affect results. Cystatin C with Glomerular Filtration Rate is a suitable alternative for these patients. ANION GAP 19(H) 5 - 15 mmol/L 07/07/2024 12:19 AM [facility] [employer] [facility] Blood Collection / Unknown 07/06/2024 11:55 PM FOOD PREP WORKER 07/07/2024 12:06 AM [facility] Protocol Roula Morrison MD CHEMISTRY ORD ERABLES DNS:Net [employer] SERVICES - DUC CLIA # [id number] [facility] [address] [place] [address] * (ABNORMAL) CBC WITH DIFFERENTIAL (07/06/2024 11:55 PM FOOD PREP WORKER) [facility] WBC 12.1(H) 4.0 - 11.0 K/uL 07/07/2024 12:01 AM [facility] [employer] [facility] - DUC RBC 4.71 4.20 - 5.40 M/uL 07/07/2024 12:01 AM [facility] [employer] - DUC HEMOGLOBIN 14.2 11.9 - 15.1 g/dL 07/07/2024 12:01 AM [facility] [employer] - DUC HEMATOCRIT 42.1 38.0 - 47.0 % 07/07/2024 12:01 AM [facility] MCV 89.4 80.0 - 98.0 fL 07/07/2024 12:01 AM [facility] [employer] [facility] - [facility] MCH 30.1 26.0 - 34.0 pg 07/07/2024 12:01 AM [facility] [employer] - DUC MCHC 33.7 31.0 - 37.0 g/dL 07/07/2024 12:01 AM [facility] [employer] - DUC RDW 13.0 11.5 - 14.5 % 07/07/2024 12:01 AM [facility] [employer] - DUC RDW-STDEV 42.6 34.0 - 54.0 fL 07/07/2024 12:01 AM [facility] - [facility]UC PLATELETS 372 150 - 400 K/uL 07/07/2024 12:01 AM [facility] [employer] - DUC MPV 10.4 8.5 - 12.5 fL 07/07/2024 12:01 AM [facility] - [facility] NEUTROPHILS 76(H) 50 - 70 % 07/07/2024 12:01 AM [facility] LYMPHOCYTES 19(L) 20 - 40 % 07/07/2024 12:01 AM [facility] [employer] - DUC MONOCYTES 5 2 - 8 % 07/07/2024 12:01 AM [facility] - DUC EOSINOPHILS 0(L) 1 - 3 % 07/07/2024 12:01 AM [facility] [employer] LABORATORY SERVICES - DUC BASOPHILS 0 0 - 1 % 07/07/2024 12:01 AM [facility] [employer] [facility] - DUC IMMATURE GRANULOCYTES 0 0 - 2 % 07/07/2024 12:01 AM [facility] [employer] [facility] - DUC NEUTROPHIL ABSOLUTE 9.12(H) 1.80 - 7.70 K/uL 07/07/2024 12:01 AM [facility] [employer] [facility] - DUC LYMPHOCYTE ABSOLUTE 2.26 1.00 - 3.30 K/uL 07/07/2024 12:01 AM [facility] [employer] - DUC MONOCYTE ABSOLUTE 0.59 0.00 - 0.80 K/uL 07/07/2024 12:01 AM [facility] [employer] LABORATORY SERVICES - DUC EOSINOPHIL ABSOLUTE 0.03 0.00 - 0.45 K/uL 07/07/2024 12:01 AM [facility] [employer] LABORATORY [employer] - DUC BASOPHILS ABSOLUTE 0.03 0.00 - 0.20 K/uL 07/07/2024 12:01 AM [facility] [employer] - DUC IMMATURE GRANULOCYTES ABSOLUTE 0.04 0.00 - 0.31 K/uL 07/07/2024 12:01 AM [facility] [employer] - DUC Blood Collection / Unknown 07/06/2024 11:55 PM FOOD PREP WORKER 07/06/2024 11:59 PM FOOD PREP WORKER Protocol Roula Morrison MD HEMATOLOGY OR DERABLES [facility] [employer] SERVICES - DUC CLIA # [id number] [facility] [address] [place] [address] * TROPONIN BASELINE, 5TH GEN (07/06/2024 11:55 PM FOOD PREP WORKER) TROPONIN T, BASELINE 5TH GEN <6 <=10 ng/L 07/07/2024 12:18 AM FOOD PREP WORKER [employer] - DUC Blood Collection / Unknown 07/06/2024 11:55 PM FOOD PREP WORKER 07/07/2024 12:06 AM FOOD PREP WORKER Narrative [employer] LABORATORY SERVICES - DUC - 07/07/2024 12:18 AM FOOD PREP WORKER Troponin Undetectable Protocol Roula Morrison MD [facility]MISTR[facility]D [facility] LAB[facility]ORY SERVICES - DUC GONZALEZ # [id number] [address] [facility] [place] [address] * EKG 12-LEAD (07/06/2024 10:58 PM FOOD PREP WORKER) 07/06/2024 10:5 8 PM FOOD PREP WORKER Narrative INTERFACE SYSTEM - 07/07/2024 7:33 AM FOOD PREP WORKER ? [facility] Duc OPI ? [address], [place] [address] ? Test Date: ?2024-07-06 Pat Name: ? CAMMA FANNY ?Department: ?? 5003 ?Room: ? Gender: ? Female ? Liquid Fertilizer Servicer: ? : ?1985 ? Requested By: ? Order Number: [id number] ? Reading : ?? Mimi Boateng ? Measurements Intervals ?[place] ? Rate: ? 59 ? P: ?59 SC: ? 113 ?QRS: ?56 QRSD: ? 85 ? T: ?75 QT: ? 430 ? QTc: ?428 ? Interpretive Statements SINUS BRADYCARDIA WITH SINUS ARRHYTHMIA WITH SHORT SC INTERVAL POSSIBLE RIGHT VENTRICULAR CONDUCTION DELAY [RSR (QR) IN V1/V2] Electronically Signed On 07-07-2024 7:33:52 FOOD PREP WORKER by Mimi Boateng Procedure Note Mimi Boateng MD - 07/07/2024 [facility] [address], [place] [address] Test Date: 2024-07-06 Pat Name: CATA ESCOBEDO Department: 5003 Room: Gender: Female Liquid Fertilizer Servicer: : 1985 Requested By: Order Number: [id number] Arianna MD: Mimi Boateng Measurements Intervals [place] Rate: 59 P: 59 SC: 113 QRS: 56 QRSD: 85 T: 75 QT: 430 QTc: 428 Interpretive Statements SINUS BRADYCARDIA WITH SINUS ARRHYTHMIA WITH SHORT SC INTERVAL POSSIBLE RIGHT VENTRICULAR CONDUCTION DELAY [RSR (QR) IN V1/V2] Electronically Signed On 07-07-2024 7:33:52 FOOD PREP WORKER by Mimi Boateng Fermin Steve MD ECG [...] at 0130, Routine Given 07/07/2024 1:46 AM FOOD PREP WORKER 20 mL dextrose 5 % in water 250 mL flush bag 25 mL 25 mL, IV, SEE ADMIN INSTRUCTIONS, Starting on 07/06/24 at 2307, Until 07/07/24 at 0447, Routine diphenhydrAMINE (BENADRYL) injection 50 mg 50 mg, IV, ONE TIME ONLY, 1 dose, On 07/06/24 at 2345, Routine Given 07/07/2024 12:05 AM FOOD PREP WORKER 50 mg lidocaine (XYLOCAINE) 2 % viscous oral solution 10 mL 10 mL, Oral, ONE TIME ONLY, 1 dose, On 07/07/24 at 0130, Routine Given 07/07/2024 1:47 AM FOOD PREP WORKER 10 mL morphine 4 mg/mL injection 4 mg 4 mg, IV, ONE TIME ONLY, 1 dose, On 07/07/24 at 0000, Routine Given 07/07/2024 12:06 AM FOOD PREP WORKER 4 mg morphine 4 mg/mL injection 4 mg 4 mg, IV, ONE TIME ONLY, 1 dose, On 07/07/24 at 0130, Routine Given 07/07/2024 1:43 AM FOOD PREP WORKER 4 mg pantoprazole (PROTONIX) 40 mg [...] Stress ulcer prophylaxis Given 07/07/2024 12:08 AM FOOD PREP WORKER 40 mg prochlorperazine (COMPAZINE) injection 10 mg 10 mg, IV, ONE TIME ONLY, 1 dose, On 07/06/24 at 2345, Routine Given 07/07/2024 12:04 AM FOOD PREP WORKER 10 mg sodium chloride 0.9 % flush bag 25 mL 25 mL, IV, SEE ADMIN INSTRUCTIONS, Starting on 07/06/24 at 2307, Until 07/07/24 at 0447, Routine sodium chloride 0.9% bolus solution 1,000 mL 1,000 mL, IV, ONE TIME ONLY, 1 dose, On 07/06/24 at 2345, at 2,000 mL/hr, Administer over 30 Minutes, Routine New Bag 07/06/2024 11:56 PM FOOD PREP WORKER 1,000 mL 2000 mL/hr sodium chloride 0.9% infusion IV, at 100 mL/hr, CONTINUOUS, Starting on 07/06/24 at 2345, Until 07/07/24 at 0447, Routine New Bag 07/07/2024 1:05 AM FOOD PREP WORKER 100 mL/hr sodium chloride flush injection 5 mL 5 mL, IV, EVERY 12 HOURS (BlD), First dose on 07/06/24 at 2315, Until Discontinued, Routine Given 07/06/2024 11:15 PM FOOD PREP WORKER 5 mL sodium chloride flush injection 5 mL 5 mL, IV, SEE ADMIN INSTRUCTIONS, Starting on 07/06/24 at 2307, Until 07/07/24 at 0447, Routine documented in this encounter Active and Recently Administered Medications Times are shown in FOOD PREP WORKER. Scheduled Medication Order 07/05/2024 07/06/2024 07/07/2024 aluminum - magnesium - simethicone (MYLANTA) 200-200-20 mg/5 mL oral suspension 20 mL (COMPLETED)(Linked Group 1) 20 mL, Oral, ONE TIME ONLY, 1 dose, On 07/07/24 at 0130, Routine 0146 (Given - Provid er: Lacey Bryson, RN) dextrose 5 % in water 250 [...] Bryson RN) 0026 (Stopped - Provider: Lacey Bryson, RUBÉN) sodium [...] Routine documented in this encounter Care Teams Poultry Buyer Relationship Specialty Start Date End Date Geo Duff MD [facility] [address] [address] PCP - General Family Practice 07/07/24 documented as of this encounter
--- OUTSIDE RECORDS SUMMARY | 2024-07-30 16:04 | XMS_ITS | Encounter Summary ---
Author Organization [facility] Address [address] [place] [address] Care Team Providers Care Elevated Motorman Name Role Phone Daja Orr MD Primary Care Provider [phone] Reason for Visit * Reason Onset Date Comments Order 08/04/2011 Encounter Details Date Type Department Care Team (Late st Contact Info) Description 08/04/2011 Telephone [facility] - Family Medicine [id number] [place] [address] [address] [place] [address] [place] [address] [facility] [address] [place] [address] Order Social History Tobacco Use Types Packs/Day Years Used Date Smoking Tobacco: Never Alcohol Use Standard Drinks/Week Comments Yes 0 (1 standard drink = 0.6 oz pur e alcohol) social Sex and Gender Information Value Date Recorded Sex Assigned at Not on file Gender Identity Female 08/19/2022 7:56 AM DIRECTOR REACTOR PROJECTS Sexual Orientation Not on file documented as of this encounter Miscellaneous Notes * Telephone Encounter - Nena Bunn - 08/04/2011 2:59 PM CST Patient is scheduled for HIDA Scan 08/05/2011 10am, spoke to patient and she is able to make appointment. No precert necessary CTOR REACTOR PROJECTS * Telephone Encounter - Jyoti Lugo V - 08/04/2011 1:51 PM CST Pt is calling to see when Hepa scan ordered by Kirby will be scheduled? Pt would like a call. CTOR REACTOR PROJECTS documented in this encounter Plan of Treatment Not on file documented as of this encounter Visit Diagnoses Not on filedocumented in this encounter Care Teams Elevated Motorman Relationship Specialty Start [place] [address] [address] [place] [id number] PCP - General Internal Medicine 06/17/11 12/04/11 documented as of this encounter
--- OUTSIDE RECORDS SUMMARY | 2024-07-30 16:04 | XMS_ITS | Encounter Summary ---
Author Organization [facility] Address [address] [facility] [place] [address] Care Team Providers Care Desktop Specialist Name Role Phone Daja Orr MD Primary Care Provider [phone] Reason for Visit * Reason Onset Date Comments Results 08/03/2011 Encounter Details Date Type Department Care Team (Late Contact Info) Description 08/03/2011 Telephone [facility] - Family Medicine [address] [facility] [address] [place] [address] Cherelle Mason, KIMBERLY-LEAD SIMULATION MODELING ENGINEER [address] [facility] [address] [place] [address] Results Social History Tobacco Use Types Packs/Day Years Used Date Smoking Tobacco: Never Alcohol Use Standard Drinks/Week Comments Yes 0 (1 standard drink = 0.6 oz pur e alcohol) social Sex and Gender Information Value Date Recorded Sex Assigned at Not on file Gender Identity Female 08/19/2022 7:56 AM UNIVERSITY EXTENSION SPECIALIST Sexual Orientation Not on file documented as of this encounter Miscellaneous Notes * Telephone Encounter - Cherelle Mason FNP - 08/03/2011 4:01 PM CST Call to report that the labs are normal. US of abdomen normal. Needs HIDA scan. ERSITY EXTENSION SPECIALIST documented in this encounter Plan of Treatment Not on file documented as of this encounter Visit Diagnoses Diagnosis Nausea- Primary Nausea alone documented in this encounter Care Teams Desktop Specialist Relationship Specialty [place] [address] [place] [address] PCP - General Internal Medicine 06/17/11 12/04/11 documented as of this encounter
--- OUTSIDE RECORDS SUMMARY | 2024-07-30 16:04 | XMS_ITS | Encounter Summary ---
Author Organization [facility] Address [address] [place] [address] Care Team Providers Care Wash Oil Pump Operator Name Role Phone Dona Beyer MD Primary Care Provider [phone] Encounter Details Date Type Department Care Team (Late st Contact Info) Description 02/13/2024 External Device Data STL ABSTRACTION Provider, Abstract [...] st Contact Info) Description 08/08/2024 1:40 PM LICENSE INSPECTOR Office Visit [facility] GASTROENTEROLOGY - [address] [facility] [address] [address] [facility] [address] [place] [address] [place] [address] [facility] [address] [place] [address] documented as of this encounter Visit Diagnoses Not on filedocumented in this encounter Care Teams Wash Oil Pump Operator Relationship Specialty Start Date End Date Dona Beyer MD PCP - General Rf Engineer 05/14/20 07/06/24 documented as of this encounter
--- OUTSIDE RECORDS SUMMARY | 2024-07-30 16:04 | XMS_ITS | Encounter Summary ---
Author Organization [facility] Address [address] [place] [address] Care Team Providers Care Quilting Machine Operator Name Role Phone Unavailable Primary Care Provider Unavailabl e Encounter Details Date Type Department Care Team (Latest Contact Info) Description 02/05/2008 6:16 AM CDT - 02/05/2008 11:59 PM CDT Hospital Encounter [facility] [address] [place] [address] Covert, [place] [address] [place] [address] Discharge Disposition: Home or Self Care Social History Tobacco Use Types Packs/Day Years Used Date Smoking Tobacco: Never Assessed Sex and Gender Information Value Date Recorded Sex Assigned at Not on file Gender Identity Female 08/19/2022 7:56 AM COMMUNICATIONS PROJECT MANAGER Sexual Orientation Not on file documented as of this encounter Plan of Treatment Not on file documented as of this encounter Visit Diagnoses Not on filedocumented in this encounter
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
--- OUTSIDE RECORDS SUMMARY | 2024-07-30 16:04 | XMS_ITS | Encounter Summary ---
Author Organization [facility] Address [address] [place] [address] Care Team Providers Care Assembly Operator Name Role Phone Dona Beyer MD Primary Care Provider [phone] Encounter Details Date Type Department Care Team [...] st Contact Info) Description 08/08/2024 1:40 PM ARCHITECTURAL ENGINEERING TEACHER Office Visit [facility] GASTR[facility] - [address] [facility] [address] [facility] [address] [place] [address] [place] [address] [facility] [address] [place] [address] documented as of this encounter Visit Diagnoses Not on filedocumented in this encounter Care Teams Assembly Operator Relationship Specialty Start Date End Date Dona Beyer MD PCP - General Instrument Tester 05/14/20 07/06/24 documented as of this encounter
--- OUTSIDE RECORDS SUMMARY | 2024-07-30 16:04 | XMS_ITS | Encounter Summary ---
Author Organization [facility] Address [address] [place] [address] Care Team Providers Care Commercial Lender Name Role Phone Dona Beyer MD Primary Care Provider [phone] Encounter Details Date Type Department Care Team [...] st Contact Info) Description 08/08/2024 1:40 PM HOME SCHOOL COORDINATOR Office Visit [facility] GASTRO[facility]OLOGY - [address] [facility] [address] [address] [facility] [address] [place] [address] [place] [address] [facility] [address] [place] [address] documented as of this encounter Visit Diagnoses Not on filedocumented in this encounter Care Teams Commercial Lender Relationship Specialty Start Date End Date Dona Beyer MD PCP - General Deep Tissue Massage Therapist 05/14/20 07/06/24 documented as of this encounter
--- OUTSIDE RECORDS SUMMARY | 2024-07-30 16:04 | XMS_ITS | Encounter Summary ---
Author Organization [facility] Address [address] [place] [address] Care Team Providers Care Sulky Driver Name Role Phone Molly Alvarado MD Primary Care Provider Reason for Visit * Auth/Cert - Closed Specialty Diagnoses / Procedures Referred By Contryan t Referred To Contact Diagnoses Other symptoms involving digestive system(787.99) Loss of weight Procedures COLONOSCOPY DIAGNOSTIC ESOPHAGOGASTRODUODENOSCOPY (EGD) Referral ID Status Reason Start Date Expiration Date Visits Re quested Visits Authorized [id number] Closed 1 1 Encounter Details Date Type Department Care Team (Latest Contact Info) Description 04/19/2013 9:04 AM CDT - 04/19/2013 11:50 AM CDT Hospital Encounter [facility] [address] [place] [address] Josiah Breen MD [address] [facility] [address] [place] [address] Surgery General Discharge Disposition: Home or Self Care Social History Tobacco Use Types Packs/Day Years Used Date Smoking Tobacco: Never Smokeless Tobacco: Never Alcohol Use Standard Drinks/Week Comments Yes 0 (1 standard drink = 0.6 oz pur e alcohol) social - rare Sex and Gender Information Value Date Recorded Sex Assigned at Not on file Gender Identity Female 08/19/2022 7:56 AM PROMOTIONS SPECIALIST Sexual Orientation Not on file documented [...] History Procedure Date ??? section 04/03/2011 ??? [place] tooth extraction Allergies Allergen Reactions ??? Tetanus [...] Negative Negative, Uninterpretable 3 5:34 PM CDT [facility] C difficile Toxin A + B Negative Negative, Uninterpretable 3 5:34 PM CDT [facility] Interpretation C difficile Negative for toxigenic C. difficile Negative for toxigenic C. difficile 3 5:34 PM CDT [facility] Stool STOOL SPECIMEN / Unknown Collection / Unknown 04/19/2013 10:59 AM CDT 04/19/2013 12:42 PM CDT Josiah Breen MD LAB - MICROBIOLOGY O RDERABLES [facility] [address] [facility] [address] * GIARDIA CRYPTOSPORIDIUM ANTIGEN PANEL (04/19/2013 10:59 AM CDT) Giardia Antigen DFA Negative Negative 04/22/2013 2:06 PM CDT [facility] Cryptosporidium Antigen DFA Negative Negative 04/22/2013 2:06 PM CDT [facility] Stool STOOL SPECIMEN / Unknown Collection / Unknown 04/19/2013 10:59 AM CDT 04/19/2013 12:42 PM CDT Narrative [facility] - 04/22/2013 2:06 PM [...] for Cyclospora which will be sent to [id number]. Specimen must be collected in 10% formalin. CAUTION: Cyclospora will not be detected by routine Ova and Parasite testing. A separate lab order, Parasitology Stain by Modified Acid Fast, must be placed specifically for Cyclospora which will be sent to [facility]. Specimen must be collected in 10% formalin. Josiah Breen MD LAB - MICROBIOLOGY [place] Performing Organization Address [facility] Co de Phone Number [facility] [address] [place] [address], [facility] * CULTURE STOOL+SHIGA-LIKE TOXIN (04/19/2013 10:59 AM CDT) Culture No growth Salmonella, Shigella, Campylobacter , E. coli 0157:h7 or Yersinia 04/21/2013 8:30 AM CDT [facility] Culture Shiga Toxin Negative 04/21/2013 8:30 AM CDT [facility] Stool STOOL SPECIMEN / Unknown Collection / Unknown 04/19/2013 10:59 AM CDT 04/19/2013 12:42 PM CDT Josiah Breen MD LAB - MICROBIOLOGY [place] Performing Organization Address [facility] Co de Phone Number [facility] [address] [place] [address], [facility] * EGD (04/19/2013 10:40 AM CDT) Report [...] Blood Loss: ? Estimated blood loss: none. [facility] 04/19/2013 10:4 0 AM CDT Narrative [facility] - 04/19/2013 11:06 AM CDT Procedure Note Josiah Breen MD - 04/19/2013 11:06 AM CDT Josiah Breen MD GI PROCEDURE ORDERAB LES [facility] * ENDOSCOPY, COLON, SCREENING (04/19/2013 [...] Emmy Freeman RN, Antonietta Hughes ? RUBÉN Adan, [employer] CRNA (Anesthesia Staff) Referring [...] Blood Loss: ? Estimated blood loss: none. [facility] 04/19/2013 10:4 0 AM CDT Narrative [facility] - 04/19/2013 11:09 AM CDT Procedure Note Josiah Breen MD - 04/19/2013 11:09 AM CDT Josiah Breen MD GI PROCEDURE ORDERAB LES [facility] * GROSS + MICRO EXAM (STL) (04/19/2013 10:40 AM CDT) Case Report Surgical Pathology Report ? Case: [id number] ? -------- Authorizing Provider: ??Josiah Breen MD ? Ordering Provider: ?? Josiah Brene MD ? Ordering Location: ? [facility] ? Collected: ? 04/19/2013 10:40 [...] Reactive lymphoid aggregates KL/scs 04/20/2013 11:43 AM [facility] Gross Description Received in formalin are [...] cassette labeled D1. DYT/lma 04/20/2013 11:43 AM [facility] Microscopic Description Histologic sections of the [...] or malignancy. KL/scs 04/20/2013 11:43 AM CDT [facility] Synoptic Report 04/20/2013 11:43 AM CDT [facility] Pathology/Cytology DUODENAL BIOPSY SPECIMEN / [...] - PATHOLOGY/CYTO LOGY ORDERABLES Performing Organization Address City/[facility]/ZIP Co de Phone Number [facility] [address] [address] * HCG URINE QUALITATIVE - POINT OF CARE (IP) (04/19/2013 10:10 AM CDT) HCG Qual Urine Negative Negative [facility] POCT TEST[facility] QC Verified yes Yes [facility] POC T TESTING Urine specimen (specimen) URINE / Unknown 04/19/2013 10:10 AM CDT Josiah Breen MD LAB - POINT OF CARE ORDERABLES Performing Organization Address [facility] Co de Phone Number [facility] POCT TESTING [address] [address] documented in this encounter Visit Diagnoses Diagnosis [...] RUBÉN) documented in this encounter Care Teams Sulky Driver Relationship Specialty Start Date End Date Molly Alvarado MD PCP - General Family Medicine 12/05/11 08/25/15 documented as of this encounter
--- OUTSIDE RECORDS SUMMARY | 2024-07-30 16:04 | XMS_ITS | Encounter Summary ---
Author Organization [facility] Address [address] [place] [address] Care Team Providers Care Mission Assessment Specialist Name Role Phone Dona Beyer MD Primary Care Provider [phone] Encounter Details Date Type Department Care Team [...] st Contact Info) Description 08/08/2024 1:40 PM TETRYL NITRATOR OPERATOR Office Visit [facility] - [address] [facility] [address] [facility] 102 [place] [address] [place] [address] [facility] 102 [place] [address] documented as of this encounter Visit Diagnoses Not on filedocumented in this encounter Care Teams Mission Assessment Specialist Relationship Specialty Start Date End Date Dona Beyer MD PCP - General Supervisor Costuming 05/14/20 07/06/24 documented as of this encounter
--- OUTSIDE RECORDS SUMMARY | 2024-07-30 16:04 | XMS_ITS | Encounter Summary ---
Author Organization [facility] Address [address] [facility] [place] [address] Care Team Providers Care Systems Analyst Name Role Phone Daja Orr MD Primary Care Provider [phone] Encounter Details Date Type Department Care Team (Latest Contact Info) Description 08/23/2011 7:26 AM ULTRASOUND MANAGER - 08/23/2011 11:59 PM [facility] Hospital Encounter [facility] Breast Care [address] [facility] [place] [address] [place] [address] [address] Medical Outpatient Discharge Disposition: Home or Self Care Social History Tobacco Use Types Packs/Day Years Used Date Smoking Tobacco: Never Alcohol Use Standard Drinks/Week Comments Yes 0 (1 standard drink = 0.6 oz pur e alcohol) social Sex and Gender Information Value Date Recorded Sex Assigned at Not on file Gender Identity Female 08/19/2022 7:56 AM ULTRASOUND MANAGER Sexual Orientation Not on file documented [...] Document, Scanned - 08/30/2011 12:53 PM CST ASOUND MANAGER documented in this encounter Plan of Treatment Not on file documented as of this encounter Visit Diagnoses Diagnosis Other screening mammogram Family history of malignant neoplasm of breast documented in this encounter Care Teams Systems Analyst Relationship Specialty Start [place] [id number] PCP - General Internal Medicine 06/17/11 12/04/11 documented as of this encounter
--- OUTSIDE RECORDS SUMMARY | 2024-07-30 16:04 | XMS_ITS | Encounter Summary ---
Author Organization [facility] Address [address] [place] [address] Care Team Providers Care Numerical Control Operator Name Role Phone Dona Beyer MD Primary Care Provider [phone] Encounter Details Date Type Department Care Team [...] st Contact Info) Description 08/08/2024 1:40 PM HORSE RACING MANAGER Office Visit [facility] GASTROENTEROLOGY - [address] [facility] [address] [address] [facility] [address] [place] [address] [place] [address] [facility] 102 [place] [address] documented as of this encounter Visit Diagnoses Not on filedocumented in this encounter Care Teams Numerical Control Operator Relationship Specialty Start Date End Date Dona Beyer MD PCP - General Global Marketing Operations Manager 05/14/20 07/06/24 documented as of this encounter
--- OUTSIDE RECORDS SUMMARY | 2024-07-30 16:04 | XMS_ITS | Encounter Summary ---
Author Organization [facility] Address [address] [facility] [place] [address] Care Team Providers Care Mobility Developer Name Role Phone Unavailable Primary Care Provider Unavailabl e Encounter Details Date Type Department Care Team (Latest Contact Info) Description 12/22/2010 3:00 PM CDT M Procedure Visit [facility] at [facility] [address] [facility] , [address] [place] [address] Encounter for routine screening for malformation using ultrasonics Social History Tobacco Use Types Packs/Day Years Used Date Smoking Tobacco: Never Assessed Sex and Gender Information Value Date Recorded Sex Assigned at Not on file Gender Identity Female 08/19/2022 7:56 AM DIGITAL ASSOCIATE MEDIA DIRECTOR Sexual Orientation Not on file documented as [...] PM CDT Narrative 12/23/2010 5:23 AM CDT ?[facility] ?[facility] ? TESTING [facility]ENTER ?FAX: ?? Pat. Name: ?CATA IBRAHIM Pat. No: ?[id number] Study Date: ?? 12/22/2010 ??2:43pm , Age: ? 1985, 25 Pregnancies: ?? 1, Para 0000 LMP: ?08/06/2010 GA by LMP: ?19.7 weeks GA by US: ? 17.7 weeks GA Selected: ??17.6 weeks (From Known E) CHARLI: ?05/28/2011 Referring MD: JOSE ALBERTO FINLEY MD Smoking Tobacco Packer Hand: ??Mi Vernon RDMS Hist/Ind: ? Anatomy Screen [...] Signature> ??12/23/2010 05:23am Jose Alberto Finley MD [facility] ORDERABLES documented in this encounter Visit Diagnoses Diagnosis Encounter for routine screening for malformation using ultrasonics ([facility])- Primary Encounter for routine screening for malformation using ultrasonics documented in this encounter
--- OUTSIDE RECORDS SUMMARY | 2024-07-30 16:04 | XMS_ITS | Encounter Summary ---
Author Organization [facility] Address [address] [facility] [place] [address] Care Team Providers Care Equine Intern Name Role Phone Molly Alvarado MD Primary Care Provider Reason for Referral * - Closed Specialty Diagnoses / Procedures Referred By Contac t Referred To Contact Ultrasound Diagnoses Abdominal pain, RUQ (right upper quadrant) Procedures US GALLBLADDER us gallbladder Molly Alvarado MD [address] [place] [address] [facility] Ultrasound [address] [facility] [place] [address] Referral ID Status Reason Start Date Expiration Date Visits Re quested Visits Authorized [id number] Closed 03/06/2013 09/02/2013 1 1 Reason for Visit * Reason Comments Breathing Problem Chest Tightness Encounter Details Date Type Department Care Team (Late st Contact Info) Description 03/06/2013 9:00 AM CDT Office Visit [facility] Medical [facility] - Family Medicine [address] [place] [address] [address] [place] [address] Molly Alvarado MD [address] [place] [address] Abdominal pain, RUQ (right upper [...] file Gender Identity Female 08/19/2022 7:56 AM PATIENT ACCOUNT ANALYST Sexual Orientation Not on file documented [...] quadrant documented in this encounter Care Teams Equine Intern Relationship Specialty Start Date End Date Molly Alvarado MD PCP - General Family Medicine 12/05/11 08/25/15 documented as of this encounter
--- OUTSIDE RECORDS SUMMARY | 2024-07-30 16:04 | XMS_ITS | Encounter Summary ---
Author Organization [facility] Address [address] [place] [address] Care Team Providers Care Pharmacognosy Teacher Name Role Phone Dona Beyer MD Primary Care Provider [phone] Encounter Details Date Type Department Care Team [...] st Contact Info) Description 08/08/2024 1:40 PM TIRE RECAPPER Office Visit [facility] GASTROENTEROLOGY - [address] [facility] 102 [address] [facility] 102 [place] [address] [place] [address] [facility] 102 [place] [address] documented as of this encounter Visit Diagnoses Not on filedocumented in this encounter Care Teams Pharmacognosy Teacher Relationship Specialty Start Date End Date Dona Beyer MD PCP - General Manager Information 05/14/20 07/06/24 documented as of this encounter
--- OUTSIDE RECORDS SUMMARY | 2024-07-30 16:04 | XMS_ITS | Encounter Summary ---
Author Organization [facility] Address [address] [place] [address] Care Team Providers Care Carbon Sequestration Plant Engineer Name Role Phone Geo Duff MD Primary Care Provider [phone] Encounter Details Date Type Department Care Team ([facility] Contact Info) Description 07/09/2024 External Device Data [...] (Late Contact Info) Description 08/08/2024 1:40 PM VIROLOGIST Office Visit [facility] GASTROENTEROLOGY - [address] [address] [facility] 102 [address] [address] [facility] 102 [place] [address] [place] [address] [facility] [address] [place] [address] documented as of this encounter Visit Diagnoses Not on filedocumented in this encounter Care Teams Carbon Sequestration Plant Engineer Relationship Specialty Start Date End Date Geo Duff MD [facility] [address] [address] PCP - General Family Practice 07/07/24 documented as of this encounter
--- OUTSIDE RECORDS SUMMARY | 2024-07-30 16:04 | XMS_ITS | Encounter Summary ---
Author Organization [facility] Address [address] [place] [address] Care Team Providers Care Deputy Sheriff Generalist Name Role Phone Molly Alvarado MD Primary Care Provider Reason for Visit * Reason Onset Date Comments MEDICATION REFILL 01/04/2012 Encounter Details Date Type Department Care Team (Late st Contact Info) Description 01/04/2012 Refill [facility] - Family Medicine [address] [place] [address] [address] [place] [address] Molly Alvarado MD [address] [place] [address] [address] [place] [address] MEDICATION REFILL Social History Tobacco Use Types Packs/Day Years Used Date Smoking Tobacco: Never Smokeless Tobacco: Never Alcohol Use Standard Drinks/Week Comments Yes 0 (1 standard drink = 0.6 oz pur e alcohol) social - rare Sex and Gender Information Value Date Recorded Sex Assigned at Not on file Gender Identity Female 08/19/2022 7:56 AM CURTAIN WORKER Sexual Orientation Not on file documented as of this encounter Plan of Treatment Not on file documented as of this encounter Visit Diagnoses Diagnosis Anxiety state, unspecified- Primary documented in this encounter Care Teams Deputy Sheriff Generalist Relationship Specialty Start Date End Date Molly Alvarado MD PCP - General Family Medicine 12/05/11 08/25/15 documented as of this encounter
--- OUTSIDE RECORDS SUMMARY | 2024-07-30 16:04 | XMS_ITS | Encounter Summary ---
Author Organization [facility] Address [address] [place] [address] Care Team Providers Care Linotype Machinist Apprentice Name Role Phone Daja Orr MD Primary Care Provider [phone] Reason for Visit * Reason Onset Date Comments Nausea 08/02/2011 Encounter Details Date Type Department Care Team (Late st Contact Info) Description 08/02/2011 Telephone [facility] - Family Medicine [address] [facility] [address] [place] [address] [place] [address] [facility] [address] [place] [address] Nausea Social History Tobacco Use Types Packs/Day Years Used Date Smoking Tobacco: Never Alcohol Use Standard Drinks/Week Comments Yes 0 (1 standard drink = 0.6 oz pur e alcohol) social Sex and Gender Information Value Date Recorded Sex Assigned at Not on file Gender Identity Female 08/19/2022 7:56 AM ESCORT PATIENTS Sexual Orientation Not on file documented as of this encounter Miscellaneous Notes * Telephone Encounter - Jyoti Dailey MA - 08/02/2011 9:24 AM CST Ov made RT PATIENTS * Telephone Encounter - Letitia Tesfaye - 08/02/2011 9:14 AM CST Nausea for 10 days, negative test. Right lower to middle abdominal pain. Low grade temp 99.0 last day or day More bowel movements than normal, still formed stools Acid reflux some what more seems like she is burping air every couple of minutes. RT PATIENTS documented in this encounter Plan of Treatment Not on file documented as of this encounter Visit Diagnoses Not on filedocumented in this encounter Care Teams Linotype Machinist Apprentice Relationship Specialty [place] [id number] [address] [id number] PCP - General Internal Medicine 06/17/11 12/04/11 documented as of this encounter
--- OUTSIDE RECORDS SUMMARY | 2024-07-30 16:05 | XMS_ITS | Encounter Summary ---
Author Organization [facility] Address [address] [place] [address] Care Team Providers Care Quality Control Chemist Name Role Phone Unavailable Primary Care Provider Unavailabl e Encounter Details Date Type Department Care Team (Late st Contact Info) Description 03/21/2013 Abstract [facility] CONTINUUM OF CARE MANAGER [facility] [address] [place] [address] [address] [place] [address] Azar Massey MD [address] [place] [address] Social History Tobacco Use Types Packs/Day Years Used Date Smoking Tobacco: Never Assessed Sex and Gender Information Value Date Recorded Sex Assigned at Not on file Gender Identity Not on file Sexual Orientation Not on file documented as of this encounter Plan of Treatment Upcoming Encounters Date Type Department Care Team (Late st Contact Info) Description 08/08/2024 1:40 PM SPLASH LINE OPERATOR Office Visit [facility] GASTROENTEROLOGY - [address] [facility] [address] [address] [facility] 102 [place] [address] [place] [address] [facility] 102 [place] [address] documented as of this encounter Visit Diagnoses Not on filedocumented in this encounter
--- OUTSIDE RECORDS SUMMARY | 2024-07-30 16:05 | XMS_ITS | Referral Summary ---
Author Organization [facility] Scientologist [facility] Address [address] [place] [address] Care Team Providers Care Java Software Developer Name Role Phone Omega Khanna MD, Maurice Parks Primary Care Provider Encounters Date Type Department Care Team Description 07/30/2024 Telephone [place] [id number] [address] Maurice Duff Jr., MD Medical Question/Miscellaneou s 07/24/2024 Telephone [facility] Gastroenterology at [facility] [address] [facility] [address] [place] [address] Candace Dunlap MD Scheduling Appointments 05/27/2024 6:28 AM CDT - 05/27/2024 8:49 AM CDT Emergency [facility] Emergency Department [address] [place] [address] Nicol Chaudhari MD SVT (supraventricular [...] in partial remission, most recent episode mixed ([facility] 03/11/2024 Assessment & Plan (03/11/2024 9:57 AM [...] bedtime. 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 Never 04/05/2024 Do you belong to any clubs o r organizations such as cheondoism groups, unions, fraternal or athletic groups, or [...] any time in the past 12 m [facility], were you homeless or living in a penitentiary (including now)? No 04/05/2024 Personal Safety Answer [...] AM CDT) 05/27/2024 6:58 AM CDT Narrative [facility] - 05/27/2024 10:17 AM CDT Vent Rate: 97 bpm RR Interval: [address] Interval: 129 msec QRS Duration: 76 msec QT Interval: 331 msec QTC Interval: 385 msec P-R-T [place]: 53 - 36 - 41 degrees IMPRESSION: SINUS RHYTHM POSSIBLE LEFT ATRIAL ENLARGEMENT POSSIBLE RIGHT VENTRICULAR CONDUCTION DELAY MODERATE ST DEPRESSION ABNORMAL ECG Electronically Signed By: Zacarias Joseph MD, [facility] us Nicol Chaudhari MD ECG ORDERABLES Final Resu lt [facility] * eGFR (05/27/2024 6:56 AM CDT) eGFR [...] [facility] [address] [facility] [place] [address] * Thyroid Function [place] (05/27/2024 6:56 AM CDT) Pathologist [facility] TSH 3.78 0.30 - 4.20 mcIUnit/mL Blood 05/27/2024 6:56 AM CDT 05/27/2024 7:21 AM CDT Nicol Chaudhari MD LAB BLOOD ORDERABLES Final Result Performing Organization Address [facility] Co de Phone Number [facility] [address] [facility] [place] [address] * (ABNORMAL) CBC with auto differential (05/27/2024 6:56 AM CDT) [facility] WBC 16.3(H) 3.8 - 9.9 K/cumm [...] [address] Department [place] [address] * (ABNORMAL) Manual Differential (05/27/2024 6:56 AM [...] ORDERABLES Final Result [facility] [address] [facility] [place], [place] [id number] * Phosphorus (05/27/2024 6:56 AM CDT) [facility] Phosphorus, pl 2.4 2.3 - 4.5 mg/dL Blood 05/27/2024 6:56 AM CDT 05/27/2024 7:21 AM CDT Nicol Chaudhari MD LAB BLOOD ORDERABLES Final Result Performing Organization Address [facility]/ZIP Co de Phone Number [facility] [address] [place] [address] * Magnesium (05/27/2024 6:56 AM CDT) [facility] Magnesium 2.0 1.4 - 2.5 mg/dL Blood 05/27/2024 6:56 AM CDT 05/27/2024 7:21 AM CDT Nicol Chaudhari MD LAB BLOOD ORDERABLES Final Result Performing Organization Address [facility]/ZIP Co de Phone Number [facility] [address] Department of [place], [place] [id number] * (ABNORMAL) Comprehensive metabolic panel (05/27/2024 6:56 AM CDT) [facility] Sodium 135 135 - 145 mmol/L Potassium, [...] BLOOD ORDERABLES Final Result Performing Organization Address [facility]/State/ZIP Co de Phone Number [facility] [address] [place] [address] * ECG 12 lead (05/27/2024 6:31 AM CDT) 05/27/2024 6:31 AM CDT Narrative [facility] - 05/27/2024 10:17 AM CDT Vent Rate: 192 bpm RR Interval: [address] Interval: 0 msec QRS Duration: 187 msec QT Interval: 236 msec QTC Interval: 334 msec P-R-T [place]: 0 - 53 - 0 degrees IMPRESSION: SVT marked anterior lateral st depression consistent with ischemia Electronically Signed By: Zacarias Joseph MD, [facility] us Nicol Chaudhari MD ECG ORDERABLES Final Resu lt [facility] * Screening Mammogram Bilateral W [place] (01/12/2024 [...] HPV HR 18 Not Detected Not Detected [facility] HPV HR Non 16/18 Not Detected Not Detected [facility] Comment: Interpretive Data Nucleic acid [...] this test have been verified by the [facility] Laboratory. Correlate with separately reported cytology results, as applicable. Interpretive data last revised 23 Endocervical 11/08/2023 2:02 PM CDT 11/08/2023 7:53 PM CDT Narrative [facility] - 11/10/2023 9:27 PM CDT Clinical history and diagnosis->screening Testing type->Screening Last menstrual period (date if known)->unknown us Aura Horne MD LAB BODY FLUIDS AND STOOLS ORDERABLES Final Result [facility] [address] [place] [address] from Last 3 Months or Most Recently Relevant to Health Maintenance Insurance FOR[facility]LY [facility] [employer] Address: [address] [address] FOR[facility]LY [facility] [employer] Address: [address] [address] Advance Directives For more information, please contact: [phone] * Full Code (Latest Code Status on File) Date Activated Date Inactivated Comments 03/30/2024 10:54 PM 04/09/2024 7:05 PM Care Teams Java Software Developer Relationship Specialty Start Date End Date Maurice Duff Jr., MD [address] [address] [place] [address] PCP - General Family Medicine 03/11/24
--- OUTSIDE RECORDS SUMMARY | 2024-07-30 16:05 | XMS_ITS | Encounter Summary ---
Author Organization [facility] Address [address] [facility] Attn: Epic Prelude ADT [place] [address] Care Team Providers Care Environmental Web Crawler Name Role Phone Dona Beyer MD Primary Care Provider [phone] Encounter Details Date Type Department Care Team [...] st Contact Info) Description 08/08/2024 1:40 PM TEXTBOOK ASSOCIATE Office Visit [facility] GASTROENTEROLOGY - [address] [facility] 102 [address] [facility] 102 [place] [address] [place] [address] [facility] 102 [place] [address] documented as of this encounter Visit Diagnoses Not on filedocumented in this encounter Care Teams Environmental Web Crawler Relationship Specialty Start Date End Date Dona Beyer MD PCP - General District Sales Leader 05/14/20 07/06/24 documented as of this encounter
--- OUTSIDE RECORDS SUMMARY | 2024-07-30 16:05 | XMS_ITS | Encounter Summary ---
Author Organization [facility] Address [address] [facility] Attn: Epic Prelude ADT [place] [address] Care Team Providers Care Sales Forecast Analyst Name Role Phone Dona Beyer MD Primary Care Provider [phone] Encounter Details Date Type Department Care Team [...] st Contact Info) Description 08/08/2024 1:40 PM PUBLIC TRANSIT BUS DRIVER Office Visit [facility] GASTROENTEROLOGY - [address] [facility] 102 [address] [facility] 102 [place] [address] [place] [address] [facility] 102 [place] [address] documented as of this encounter Visit Diagnoses Not on filedocumented in this encounter Care Teams Sales Forecast Analyst Relationship Specialty Start Date End Date Dona Beyer MD PCP - General Wood Setter 05/14/20 07/06/24 documented as of this encounter
--- OUTSIDE RECORDS SUMMARY | 2024-07-30 16:05 | XMS_ITS | Encounter Summary ---
Author Organization [facility] Address [address] [facility] Attn: Epic Prelude ADT [place] [address] Care Team Providers Care Merchandise Processor Name Role Phone Dona Beyer MD Primary Care Provider [phone] Encounter Details Date Type Department Care Team [...] st Contact Info) Description 08/08/2024 1:40 PM CARDIAC CATH TECHNOLOGIST Office Visit [facility] GASTROENTEROLOGY - [address] [facility] 102 [address] [facility] 102 [place] [address] [place] [address] [facility] 102 [place] [address] documented as of this encounter Visit Diagnoses Not on filedocumented in this encounter Care Teams Merchandise Processor Relationship Specialty Start Date End Date Dona Beyer MD PCP - General Cellars Supervisor 05/14/20 07/06/24 documented as of this encounter
--- OUTSIDE RECORDS SUMMARY | 2024-07-30 16:05 | XMS_ITS | Encounter Summary ---
Author Organization [facility] Address [address] [place] [address] Care Team Providers Care Exterminator Termite Name Role Phone Dona Beyer MD Primary Care Provider [phone] Reason for Visit * Reason Comments Well Woman Exam new/old last pap Encounter Details Date Type Department Care Team (Latest Contact Info) Description 05/14/2020 10:30 AM CDT Office Visit [facility] AGER TENDER [address] [place] [address] Azar Massey MD [address] [place] [address] Well woman exam with routine [...] mucosa Cx: W/o lesion, thin prep performed [place]: Normal size Adn: No masses Impr: 1. [...] WO CAD ??? CERV/VAG CYTOPATH, THIN PREP PURCHASING EXPEDITOR W/RFLX HPV ??? Ashlyna 0.15 mg-30 mcg (84)/10 mcg (7) Tablet, Dose Pack, 3 Months Azar Massey MD documented in this encounter Plan of Treatment Upcoming Encounters Date Type Department Care Team (Late st Contact Info) Description 08/08/2024 1:40 PM SUPERVISOR SHUTTLE FITTING Office Visit [facility] GASTROENTEROLOGY - [address] [facility] 102 [address] [facility] 102 [place] [address] [place] [address] [facility] 102 [place] [address] documented as of this encounter Results * [...] 2:22 PM CDT [facility] Endocervix 05/18/2020 2:22 PM CDT [facility] REFERENCE LAB [facility] ADEQUACY: SEE COMMENT 05/18/2020 2:22 PM CDT [facility] REFERENCE LAB [facility] Comment: Satisfactory for evaluation. Endocervical/transformation zone component absent. Age and/or menstrual status not provided PAP INTERP Negative for intraepithelial lesion or malignancy. 05/18/2020 2:22 PM CDT [facility] REFERENCE LAB [facility] COMMENT This Pap test has been evaluated with computer assisted technology. 05/18/2020 2:22 PM CDT [facility] BOX NAILER: SEE COMMENT 2019 2:22 PM CDT [facility] REFERENCE LAB [facility] Comment: BLG, CT(ASCP) CT screening location: [place] [address] Administration [place] [address] EXPLANATORY NOTE SEE COMMENT 020 2:22 PM CDT [facility] REFERENCE LAB [facility] Comment: EXPLANATORY NOTE: The Pap is a [...] PM CDT 05/14/2020 12:36 PM CDT Narrative [facility] - 05/18/2020 2:22 PM CDT Performing Organization Information: ?Site ID: ?Name: [facility] ?Address: [facility] Administration [place] [address] ?Director: Yin Estrella Azar Massey MD PATHOLOGY/CYTOLOGY O RDERABLES [facility] [phone] documented in this encounter Visit Diagnoses Diagnosis Well woman exam with routine gynecological exam- Primary Routine gynecological examination History of cervical dysplasia 2019, hx LEEP 2019 Personal history of cervical dysplasia Oral contraceptive use - 3mo continuous Surveillance of previously prescribed contraceptive pill History of vulvar vestibulectomy, responds well to Cymbalta documented in this encounter Care Teams Exterminator Termite Relationship Specialty Start Date End Date Dona Beyer MD PCP - General Lockstitcher 05/14/20 07/06/24 documented as of this encounter
--- OUTSIDE RECORDS SUMMARY | 2024-07-30 16:05 | XMS_ITS | Clinical Summary ---
Author Organization [facility] Address [address] [place] [address] Care Team Providers Care Nurse Midwife Name Role Phone Omega Khanna MD, [facility] Primary Care Provider Allergies Active Allergy [...] bedtime. 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 [...] Type Department Care Team Description 07/30/2024 Telephone [facility] [place] [address] [address] Maurice Duff Jr., MD Medical Question/Miscellaneou s 07/24/2024 Telephone [facility] Gastroenterology at [facility] [address] [facility] [address], [place] [address] Candace Dunlap MD Scheduling Appointments 05/27/2024 6:28 AM CDT - 05/27/2024 8:49 AM CDT Emergency [facility] Emergency Department [address] [place] [address] Nicol Chaudhari MD SVT (supraventricular [...] 06/21/2024 Influenza, Unspecified 05/15/2023,2020,05/22/2016,05/14 PPD TEST 03/24/2021 [employer] SARS-CoV-2 Monovalent Vaccination (12+ Yrs) PURPLE 12/25/2020 [...] hyperlipidemia 03/11/2024 PSVT (paroxysmal supraventricular tachycardia) ( [facility]) 03/11/2024 On total parenteral nutrition 04/09/2024 Vitamin D deficiency disease 08/26/2015 Allergic rhinitis due to pollen 12/08/2015 Gastroesophageal reflux disease 06/22/2016 Intractable nausea and vomiting 03/30/2024 Intractable vomiting 03/31/2024 Bipolar disorder ([facility]) 07/07/2021 Bipolar disorder, in partial remission, most recent episode mixed (CMS/HCC) ([facility]) 03/11/2024 Generalized anxiety disorder 07/07/2021 Hip [...] often do you attend chur ch or samaritan services? Never 04/05/2024 Do you belong to any clubs o r organizations such as quaker groups, unions, fraternal or athletic groups, or [...] any time in the past 12 m [facility], were you homeless or living in a retirement (including now)? No 04/05/2024 Personal Safety Answer [...] 05/28/2024 ??7:11 AM Critical Care Performed by: Nciol Chaudhari MD Authorized by: Nicol Chaudhari MD [...] AM CDT) 05/27/2024 6:58 AM CDT Narrative [facility] - 05/27/2024 10:17 AM CDT Vent Rate: 97 bpm RR Interval: 617 msec CO Interval: 129 msec QRS Duration: 76 msec QT Interval: 331 msec QTC Interval: 385 msec P-R-T [place]: 53 - 36 - 41 degrees IMPRESSION: SINUS RHYTHM POSSIBLE LEFT ATRIAL ENLARGEMENT POSSIBLE RIGHT VENTRICULAR CONDUCTION DELAY MODERATE ST DEPRESSION ABNORMAL ECG Electronically Signed By: Zacarias Joseph MD, [facility] us Nicol Chaudhari MD ECG ORDERABLES Final Resu lt [facility] * eGFR (05/27/2024 6:56 AM CDT) eGFR [...] BLOOD ORDERABLES Final Result Performing Organization Address City/[facility]/ZIP Co de Phone Number [facility] [address] Department [place], [place] [id number] * Thyroid Function Nobles (05/27/2024 6:56 AM CDT) TSH 3.78 0.30 - 4.20 mcIUnit/mL Blood 05/27/2024 6:56 AM CDT 05/27/2024 7:21 AM CDT us Nicol Chaudhari MD LAB BLOOD ORDERABLES Final Result Performing Organization Address [facility]/ZIP Co de Phone Number [facility] [address] Department [place], [place] [id number] * (ABNORMAL) CBC with auto differential (05/27/2024 6:56 AM CDT) WBC 16.3(H) 3.8 - 9.9 K/cumm Hgb 12.9 11.9 - 15.5 g/dL [facility] Hct 38.3 35.6 - 45.5 % [facility] Plt 432(H) 150 - 400 K/cumm [facility] MPV 10.6 9.1 - 12.3 fL [facility] RBC 4.28 3.90 - 5.20 M/cumm [facility] MCV 89.5 81.3 - 96.4 fL [facility] MCH 30.1 27.1 - 33.3 pg [facility] MCHC 33.7 32.3 - 35.7 g/dL [facility] RDW CV 14.8 11.1 - 14.9 % [facility] RDW SD 47.9 35.7 - 48.1 fL [facility] NRBC abs 0.03(H) 0.00 - 0.01 K/cumm [facility] Blood (Blood, Venous) 05/27/2024 6:56 AM CDT 05/27/2024 7:21 AM CDT us Nicol Chaudhari MD LAB BLOOD ORDERABLES Final Result [facility] [address] [place] [address] * (ABNORMAL) Manual Differential (05/27/2024 6:56 AM CDT) Differential Manual Cells Counted 100 [facility] Neutrophil abs 10.1(H) 1.5 - 6.5 K/cumm [facility] Lymphocyte abs 4.2(H) 0.8 - 3.3 K/cumm [facility] Monocyte abs 1.5(H) 0.2 - 0.8 K/cumm [facility] Eosinophil abs 0.5 0.0 - 0.5 K/cumm [facility] Neutrophil pct 62.0 % [facility] Comment: Differenial performed on albumin smear. Interpretive Data Percent cell count reference ranges are not reported, since discordance with absolute values may lead to misinterpretation of CBC data. Current Interpretive Data was last revised on 2017. Lymphocyte pct 26.0 % [facility] Comment: Interpretive Data Percent cell count reference ranges are not reported, since discordance with absolute values may lead to misinterpretation of CBC data. Current Interpretive Data was last revised on 2017. Monocyte pct 9.0 % [facility] Comment: Interpretive Data Percent cell count reference ranges are not reported, since discordance with absolute values may lead to misinterpretation of CBC data. Current Interpretive Data was last revised on 2017. Eosinophil pct 3.0 % [facility] Comment: Interpretive Data Percent cell count reference ranges are not reported, since discordance with absolute values may lead to misinterpretation of CBC data. Current Interpretive Data was last revised on 2017. RBC morphology Normal [facility] Platelet morphology Normal [facility] Blood 05/27/2024 6:56 AM CDT 05/27/2024 7:21 AM CDT Nicol Chaudhari MD LAB BLOOD ORDERABLES Final Result [facility] [address] [facility] [place] [address] * Phosphorus (05/27/2024 6:56 AM CDT) Phosphorus, pl 2.4 2.3 - 4.5 mg/dL Blood 05/27/2024 6:56 AM CDT 05/27/2024 7:21 AM CDT Nicol Chaudhari MD LAB BLOOD ORDERABLES Final Result Performing Organization Address [facility]/ZIP Co de Phone Number [facility] [address] Department [place], [place] [id number] * Magnesium (05/27/2024 6:56 AM CDT) Magnesium 2.0 1.4 - 2.5 mg/dL Blood 05/27/2024 6:56 AM CDT 05/27/2024 7:21 AM CDT Nicol Chaudhari MD LAB BLOOD ORDERABLES Final Result [facility] [address] Department [place], [place] [id number] * (ABNORMAL) Comprehensive metabolic panel (05/27/2024 6:56 AM CDT) Sodium 135 135 - 145 mmol/L Potassium, pl 3.2(L) 3.3 - 4.9 mmol/L [facility] Chloride 101 97 - 110 mmol/L [facility] CO2 21(L) 22 - 32 mmol/L [facility] Anion gap 13 2 - 15 mmol/L [facility] BUN 11 6 - 25 mg/dL [facility] Creatinine 0.72 0.60 - 1.10 mg/dL [facility] Glucose 92 70 - 199 mg/dL [facility] Comment: Interpretive Data Fasting glucose >/= [...] 2022. Calcium 9.0 8.5 - 10.3 mg/dL [facility] Bilirubin, total 0.3 0.1 - 1.2 mg/dL [facility] Protein, pl 7.4 6.5 - 8.5 g/dL [facility] Albumin 4.1 3.5 - 5.0 g/dL [facility] Alk phos 84 40 - 130 Units/L [facility] ALT 19 7 - 45 Units/L [facility] AST 22 10 - 45 Units/L [facility] Blood 05/27/2024 6:56 AM CDT 05/27/2024 6:56 AM CDT us Nicol Chaudhari MD LAB BLOOD ORDERABLES Final Result [facility] [address] [place] [address] * ECG 12 lead (05/27/2024 6:31 AM CDT) 05/27/2024 6:31 AM CDT Narrative [facility] - 05/27/2024 10:17 AM CDT Vent Rate: 192 bpm RR Interval: 311 msec CO Interval: 0 msec QRS Duration: 187 msec QT Interval: 236 msec QTC Interval: 334 msec P-R-T [place]: 0 - 53 - 0 degrees IMPRESSION: SVT marked anterior lateral st depression consistent with ischemia Electronically Signed By: Zacarias Joseph MD, [facility] us Nicol Chaudhari MD ECG ORDERABLES Final Resu lt [facility] * Screening Mammogram Bilateral W Perry (01/12/2024 [...] HPV HR 18 Not Detected Not Detected [facility] HPV HR Non 16/18 Not Detected Not Detected [facility] Comment: Interpretive Data Nucleic acid amplification for [...] this test have been verified by the [facility]. Correlate with separately reported cytology results, as applicable. Interpretive data last revised 23 Endocervical 11/08/2023 2:02 PM CDT 11/08/2023 7:53 PM CDT Narrative [facility] - 11/10/2023 9:27 PM CDT Clinical history and diagnosis->screening Testing type->Screening Last menstrual period (date if known)->unknown Aura Horne MD LAB BODY FLUIDS AND STOOLS ORDERABLES Final Result [facility] [address] Department of [place], [place] [id number] from Last 3 Months or Most Recently Relevant to Health Maintenance Insurance [facility] [employer] Address: [facility] [address] [place] [address] [employer] Address: [facility] [id number] [place] [address] Advance Directives For more information, please contact: [phone] * Full Code (Latest Code Status on File) Date Activated Date Inactivated Comments 03/30/2024 10:54 PM 04/09/2024 7:05 PM Care Teams Nurse Midwife Relationship Specialty Start Date End Date Maurice Duff Jr., MD [address] [address] [place] [address] PCP - General Family Medicine 03/11/24
--- OUTSIDE RECORDS SUMMARY | 2024-07-30 16:05 | XMS_ITS | Encounter Summary ---
Author Organization [facility] Address [address] [place] [address] Care Team Providers Care Truck Loader And Unloader Name Role Phone Dona Beyer MD Primary Care Provider [phone] Reason for Visit * Reason Onset Date Comments Medication Refill 06/18/2021 Encounter Details Date Type Department Care Team (Late st Contact Info) Description 06/18/2021 Telephone [facility] POLICE WORKER [address] [place] [address] Azar Massey MD [address] [place] [address] Medication Refill Social History Tobacco [...] Luciano RN - 06/18/2021 11:57 AM CDT [facility] for the pt to call back re: [...] st Contact Info) Description 08/08/2024 1:40 PM NEON SIGN ERECTOR Office Visit [facility] GASTROENTEROLOGY - [address] [facility] 102 [address] [facility] [address] [place] [address] [place] [address] [facility] 102 [place] [address] documented as of this encounter Visit Diagnoses Not on filedocumented in this encounter Care Teams Truck Loader And Unloader Relationship Specialty Start Date End Date Dona Beyer MD PCP - General Vial Gauger 05/14/20 07/06/24 documented as of this encounter
--- OUTSIDE RECORDS SUMMARY | 2024-07-30 16:05 | XMS_ITS | Encounter Summary ---
Author Organization [facility] Address [address] [place] [address] Care Team Providers Care All Around Patternmaker Name Role Phone Dona Beyer MD Primary Care Provider Reason for Visit * Reason Comments Sore Throat X2 days Ear Pain Bilateral ear pain x 2 days Encounter Details Date Type Department Care Team (Late st Contact Info) Description 03/18/2022 2:00 PM CDT Office Visit [facility] [address] [place] [phone] Aura Chaves, PINSETTER MECHANIC HELPER [address] [place] [address] Exudative tonsillitis (Primary Dx); Impacted [...] ounces of warm water. ??? Take an jycw-fwf-nptebws pain medicine, such as acetaminophen (Tylenol), ibuprofen (Advil, Motrin), or naproxen (Aleve). Be safe with medicines. Read and follow all instructions on the label. No one younger than 20 should take aspirin. It has been linked to Dana syndrome, a serious illness. ??? Be careful when taking gkdb-ptv-coqitan cold or flu medicines and Tylenol at the same time. Many of these medicines have acetaminophen, which is Tylenol. Read the labels to make sure that you arenot taking more than the recommended dose. Too much acetaminophen (Tylenol) can be harmful. ??? Try lozenges or an szll-aqa-zxtidqx throat spray to relieve throat pain. ??? [...] Where can you learn more? Go to https://www.[employer].net/patiented Enter M655 in the search box to learn more about Tonsillitis: Care Instructions. Current as of: April 21, 2021?Content Version: 13.3 ?? [employer]. Care instructions adapted under license by your healthcare professional. If you have questions about a medical condition or this instruction, always ask your healthcare professional. These instructions may not represent the values of this healthcare organization. [employer] disclaims any warranty or liability for your [...] out. Dry your ear thoroughly with a hair boiler set on low. Hold the dryer several inches from your ear. ? If the warm mineral oil and shower do not work, use an bumq-fhy-pyogpuk wax softener. Read and follow all instructions [...] of: October 20, 2021?Content Version: 13.3 ?? [employer]. Care instructions adapted under license by your healthcare professional. If you have questions about a medical condition or this instruction, always ask your healthcare professional. These instructions may not represent the values of this healthcare organization. [employer] disclaims any warranty or liability for your use of this information. documented in this encounter Plan of Treatment Upcoming Encounters Date Type Department Care Team (Late st Contact Info) Description 08/08/2024 1:40 PM BRAKE DRUM LATHE OPERATOR Office Visit [facility] GASTRO[facility]OLOGY - [address] [facility] 102 [address] [facility] 102 [place] [address] [place] [address] [facility] 102 [place] [address] documented as of this encounter Visit Diagnoses Diagnosis Exudative tonsillitis- Primary Impacted cerumen of left ear Impacted cerumen Throat pain documented in this encounter Care Teams All Around Patternmaker Relationship Specialty Start Date End Date Dona Beyer MD PCP - General Rn Paralegal 05/14/20 07/06/24 documented as of this encounter
--- OUTSIDE RECORDS SUMMARY | 2024-07-30 16:05 | XMS_ITS | Encounter Summary ---
Author Organization [facility] Address [address] [place] [address] Care Team Providers Care Calculator Operator Name Role Phone Unavailable Primary Care Provider Unavailabl e Encounter Details Date Type Department Care Team (Late st Contact Info) Description 03/21/2013 Orders Only [facility] CRUSHER PLANT OPERATOR [address] [place] [address] Azar Massey MD [address] [place] [address] Social History Tobacco Use Types Packs/Day Years Used Date Smoking Tobacco: Never Assessed Sex and Gender Information Value Date Recorded Sex Assigned at Not on file Gender Identity Not on file Sexual Orientation Not on file documented as of this encounter Plan of Treatment Upcoming Encounters Date Type Department Care Team (Late st Contact Info) Description 08/08/2024 1:40 PM PCA ASSISTED LIVING [facility] - [address] [place] [address] [address] [place] [address] [facility] 102 [place] [address] documented as of this encounter Procedures Procedure Name Priority Date/Time Associated Diagnosis Comments CERV/VAG CYTOPATH, THIN PREP Routine 02/06/2013 documented in this encounter Results * CERVICAL OR VAGINAL CYTOPATH, THIN PREP (02/06/2013) Endocervical Azar Massey MD PATHOLOGY/CYTOLOGY O RDERABLES [facility]# [id number] [address] [place] [address] documented in this encounter Visit Diagnoses Not on filedocumented in this encounter
--- OUTSIDE RECORDS SUMMARY | 2024-07-30 16:05 | XMS_ITS | Encounter Summary ---
Author Organization [facility] Address [address] [place] [address] Care Team Providers Care Director Life Sales Name Role Phone Unavailable Primary Care Provider Unavailabl e Reason for Visit * Reason Onset Date Comments Information 04/08/2013 LoEstrin Fr Encounter Details Date Type Department Care Team (Late st Contact Info) Description 04/08/2013 Telephone [facility] BULK PALLET BUILDER [facility] [address] [place] [address] [address] [place] [address] Azar Massey MD [address] [place] [address] Information (LoEstrin Fr) Social History [...] still left and has to find another BULK PALLET BUILDER due to insurance issues. Will f/u with new BULK PALLET BUILDER. * Telephone Encounter - Bella Villarreal - 04/08/2013 11:31 AM CDT Pharmacy no longer getting Loestrin. Needs new similar OCP and needs prior auth for birthcontrol documented in this encounter Plan of Treatment Upcoming Encounters Date Type Department Care Team (Late st Contact Info) Description 08/08/2024 1:40 PM WOOD BOAT BUILDER SUPERVISOR Office Visit [facility] GASTROENTEROLOGY - [address] [facility] 102 [address] [facility] 102 [place] [address] [place] [address] [facility] 102 [place] [address] documented as of this encounter Visit Diagnoses Not on filedocumented in this encounter
--- OUTSIDE RECORDS SUMMARY | 2024-07-30 16:05 | XMS_ITS | Encounter Summary ---
Author Organization [facility] Address [address] [place] [address] Care Team Providers Care Cabin Crew Name Role Phone Dona Beyer MD Primary Care Provider [phone] Reason for Visit * Reason Comments Well Woman Exam Pap 06/02BCP 3mths Encounter Details Date Type Department Care Team (Latest Contact Info) Description 04/07/2022 10:20 AM CDT Office Visit [facility] NAIL MAKER [address] [place] [address] Hazel Mcadams MD [address] [place] [address] Well woman exam with routine [...] All other systems reviewed and are negative. Software Engineer History Last Pap Smear Lab Results Component Value Date/Time PAPINTERP Negative for intraepithelial lesion or malignancy. 05/14/2020 12:36 PM No results found for: RUOI1F2 h/o abnormal paps: ( ), leep in 2019 Last Mammogram No results found for this or any previous visit. Contraception: 3 month [facility] pill Sexually Active: yes, No new partners [...] st Contact Info) Description 08/08/2024 1:40 PM MAGNET PLACER Office Visit [facility] GASTRO[facility]OLOGY - [address] [facility] 102 [address] [facility] 102 [place] [address] [place] [address] [facility] 102 [place] [address] documented as of this encounter Procedures Procedure Name Priority Date/Time Associated Diagnosis Comments CERV/VAG CYTO SCREEN PAP W/HPV Routine 04/07/2022 12:00 AM CDT Well woman exam with routine gynecological exam documented in this encounter Results * (ABNORMAL) CERV/VAG CYTO SCREEN PAP W/HPV (04/07/2022 12:00 AM CDT) CLINICAL INFORMATION [facility] Comment:SCREENING LAST MENSTRUAL PERIOD [facility] Comment:INFORMATION NOT PROV IDED PREV PAP: [facility] Comment:INFORMATION NOT PROV IDED PREV BX: [facility] Comment:INFORMATION NOT PROV IDED SOURCE [facility] Comment:Endocervix ADEQUACY: [facility] Comment: Satisfactory for evaluation. Endocervical/transformation zone component present. Age and/or menstrual status not provided PAP INTERP [facility] Comment:Negative for intraep ithelial lesion or malignancy. CYTOLOGY INFECTION [facility] Comment: Shift in vaginal colton suggestive of bacterial vaginosis. COMMENT (PAP TEST) [facility] Comment: This Pap test has been evaluated with computer assisted technology. WEIR FISHER: [employer] Mamadou Kearneyexa Comment: JAF, CT(ASCP) CT Screening Location: [place] [address] [place] [address] REVIEW WEIR FISHER: [email or web address] Chen Comment: MEF, CT(ASCP) CT screening location: [place] [address] [place] [address] [address] [facility] Comment: EXPLANATORY NOTE: The Pap is a [...] information. HPV E6/E7 Detected( A) Not Detected [facility] [place] [facility] Comment: Methodology: Hotel Reservation Agent-Mediated Amplification This assay detects E6/E7 viral messenger RNA (mRNA) from 14 high-risk HPV types (16,18,31,33,35,39,45,51,52,56,58,59,66,68). Cervical sources are required for HPV testing. If a vaginal source from a patient who has had a total hysterectomy with removal of cervix was submitted, please contact the testing laboratory for alternative testing options. For additional information, please refer to http://education.Room 77/faq/BJP728k9 (This link if provided for information/ educational purposes only.) Test Performed at: [facility] [address] [place], [place] ??[address] Willi Gerber D.O., MPH SL Genital SWAB OF ENDOCERVIX / Unknown 04/07/2022 04/07/2022 9:33 PM CDT Hazel Mcadams MD PATHOLOGY/CYTOLOGY O [facility] [phone] [email or web address] [address] [place] [address] documented in this encounter Visit Diagnoses Diagnosis Well woman exam with routine gynecological exam- Primary Routine gynecological examination Screen for STD (sexually transmitted disease) Screening examination for venereal disease documented in this encounter Care Teams Cabin Crew Relationship Specialty Start Date End Date Dona Beyer MD PCP - General Wheat Farmer 05/14/20 07/06/24 documented as of this encounter
--- OUTSIDE RECORDS SUMMARY | 2024-07-30 16:05 | XMS_ITS | Encounter Summary ---
Author Organization [facility] Address [address] [place] [address] Care Team Providers Care Buttonhole Facer Name Role Phone Dona Beyer MD Primary Care Provider [phone] Reason for Visit * Reason Onset Date Comments Medication Assistance 04/05/2023 Encounter Details Date Type Department Care Team (Late Contact Info) Description 04/05/2023 Telephone [facility] Clinical Support [address] [place] [address] [place] [address] [place] [address] Medication Assistance Social History Tobacco [...] (Late Contact Info) Description 08/08/2024 1:40 PM ASSISTANT PRESSMAN Office Visit [facility] GASTROENTEROLOGY - [address] [address] [address] [facility] 102 [place] [address] [place] [address] [facility] 102 [place] [address] documented as of this encounter Visit Diagnoses Not on filedocumented in this encounter Care Teams Buttonhole Facer Relationship Specialty Start Date End Date Dona Beyer MD PCP - General Salmon Troll Fisher 05/14/20 07/06/24 documented as of this encounter
--- OUTSIDE RECORDS SUMMARY | 2024-07-30 16:05 | XMS_ITS | Encounter Summary ---
Author Organization [facility] Address [address] [place] [address] Care Team Providers Care Hand Button Splitter Name Role Phone Dona Beyer MD Primary Care Provider [phone] Reason for Visit * Reason Onset Date Comments other 06/10/2021 Encounter Details Date Type Department Care Team (Late st Contact Info) Description 06/10/2021 Telephone [facility] PIPE CHANGER [facility] [address] [place] [address] Azar Massey MD [address] [place] [address] other Social History Tobacco Use [...] Dept 05/14/20 Office Visit Azar Massey MD [facility] Field Machinist [place] Showing recent visits within past 540 days with a meds authorizing provider and meeting all other requirements Future Appointments Date Type Provider Dept 07/14/21 Appointment Jenny Gaspar NP [facility] Field Machin[employer] [place] Showing future appointments within next 150 days [...] medications- Q6MTH OV No results found for: XYBA3IEIU, HGBA1C, GLUCPOC, GLUCOSE, GLUCOSEF, MICROALBUMIN, MALBUR, MICRCREATR Patient call back number: Pharmacy Retail/Mail Order: [id number] - [place] - [address] [facility] * Telephone Encounter - Lacey Suárez [...] st Contact Info) Description 08/08/2024 1:40 PM FARM FIELD MANAGER Office Visit [facility] GASTROENTEROLOGY - [address] [facility] [address] [id number] [address] [facility] [address] [place] [address] [place] [address] [facility] [address] [place] [address] documented as of this encounter Visit Diagnoses Not on filedocumented in this encounter Care Teams Hand Button Splitter Relationship Specialty Start Date End Date Dona Beyer MD PCP - General Solid Fiber Paster Operator 05/14/20 07/06/24 documented as of this encounter
--- OUTSIDE RECORDS SUMMARY | 2024-07-30 16:06 | XMS_ITS | Encounter Summary ---
Author Organization [facility] Healthcare Address [address] [place] [address] Care Team Providers Care Battery Assembler Plastic Name Role Phone Omega Khanna MD, Maurice Parks Primary Care Provider Reason for Visit * Auth/Cert (Routine) Specialty Diagnoses / Procedures Referred By Contac t Referred To Contact Diagnoses Intractable nausea and vomiting Chest pain, unspecified type Nausea and vomiting, unspecified vomiting type Procedures na Referral ID Status Reason Start Date Expiration Date Visits Re quested Visits Authorized [id number] 1 1 Encounter Details Date Type Department Care Team (Late st Contact Info) Description 04/01/2024 3:09 PM CDT Anesthesia Event [facility] [address] [place] [phone] Juan Carlos Rios MD [address] [place] [address] Pastora Fontenot, MIR [address] [facility] [address] [facility] [address] [place] [address] Anesthesia Record Procedure Summary Procedure Name Responsible [...] Procedure Summary Date: 04/01/24 Room / Location: [facility] Anesthesia Start: 1509 Anesthesia Stop: 1525 [...] Neurological Pertinent negatives: CVA/stroke Cardiovascular Pertinent negatives: [place] Gastrointestinal + GERD - on daily therapy. [...] (CMS/HCC) (HCC) 03/11/2024 PSVT (paroxysmal supraventricular tachycardia) ([facility]) 03/11/2024 Mixed hyperlipidemia 03/11/2024 Vaginal vestibulitis [...] Status: Pharmacy Complete Set By: Adwoa Nascimento [facility] at 03/30/2024 9:28 PM Status Comment 03/30/2024 9:28 PM Only took abilify & cymbalta 03/30. Med List from [facility], Rx Fill Hx and interview with [...] Medication protocol when under care of a LICENSED MASSAGE PRACTITIONER Planned anesthesia: General TIVA Induction: Induction: intravenous. Postoperative Plan: No postoperative mechanical ventilation intended. Informed Consent: Discussed plan with LICENSED MASSAGE PRACTITIONER. Anesthesia plan and risks discussed with patient. [...] mL/hr documented in this encounter Care Teams Battery Assembler Plastic Relationship Specialty Start Date End Date Maurice Duff Jr., MD [facility] [address] PCP - General Family Medicine 03/11/24 documented as of this encounter
--- OUTSIDE RECORDS SUMMARY | 2024-07-30 16:06 | XMS_ITS | Encounter Summary ---
Author Organization [facility] Healthcare Address [address] [place] [address] Care Team Providers Care Radiation Protection Technician Name Role Phone Omega Khanna MD, Maurice Parks Primary Care Provider Reason for Visit * Reason Onset Date Comments Scheduling Appointments 07/24/2024 Encounter Details Date Type Department Care Team (Late st Contact Info) Description 07/24/2024 Telephone [facility] Medical [facility] Gastroenterology at [facility] [address] [facility] [address] [place] [address] Cnadace Dunlap MD [address] [address] Scheduling Appointments Social History Tobacco [...] often do you attend chur ch or jain services? Never 04/05/2024 Do you belong to any clubs o r organizations such as scientologist groups, unions, fraternal or athletic groups, or [...] any time in the past 12 m [facility], were you homeless or living in a assisted (including now)? No 04/05/2024 Personal Safety Answer [...] CST Please contact patient to schedule appointment. DOGGER documented in this encounter Plan of Treatment Not on file documented as of this encounter Visit Diagnoses Not on filedocumented in this encounter Care Teams Radiation Protection Technician Relationship Specialty Start Date End Date Maurice Duff Jr., MD [address] [address] PCP - General Family Medicine 03/11/24 documented as of this encounter
--- OUTSIDE RECORDS SUMMARY | 2024-07-30 16:06 | XMS_ITS | Encounter Summary ---
Author Organization [facility] Healthcare Address [address] [place] [address] Care Team Providers Care Manufacturing Weaver Name Role Phone Omega Khanna MD, Maurice Parks Primary Care Provider Reason for Visit * Reason Onset Date Comments Schedule 04/23/2024 Encounter Details Date Type Department Care Team (Late st Contact Info) Description 04/23/2024 Telephone [facility] Medical [facility] Gastroenterology at [facility] [address] [facility] [address] [place] [address] Candace Dunlap MD [address] [address] Schedule Social History Tobacco Use [...] often do you attend chur ch or alevism services? Never 04/05/2024 Do you belong to any clubs o r organizations such as yazidism groups, unions, fraternal or athletic groups, or [...] any time in the past 12 m [facility], were you homeless or living in a fdc (including now)? No 04/05/2024 Personal Safety Answer [...] on filedocumented in this encounter Care Teams Manufacturing Weaver Relationship Specialty Start Date End Date Maurice Duff Jr., MD [address] [place] [id number] PCP - General Family Medicine 03/11/24 documented as of this encounter
--- OUTSIDE RECORDS SUMMARY | 2024-07-30 16:06 | XMS_ITS | Encounter Summary ---
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 Name Role Phone Omega Khanna MD, [facility] Primary Care Provider Reason for Visit * Reason Comments Chest Pain * Auth/Cert (Routine) Specialty Diagnoses / Procedures Referred By Contac t Referred To Contact Diagnoses Intractable nausea and vomiting Chest pain, unspecified type Nausea and vomiting, unspecified vomiting type Procedures na Referral ID Status Reason Start Date Expiration Date Visits Re quested Visits Authorized [id number] 1 1 Encounter Details Date Type Department Care Team (Latest Contact Info) Description 03/30/2024 3:50 PM CDT - 04/09/2024 2:59 PM CDT Hospital Encounter [id number] [place] [id number] Sravan Marsh, [address] [address] Jonathan Scruggs MD [facility] [place] [address] Nicholas Saba, [facility] [place] [address] Shanti Freedman MD [address] [place] [id number] Bruno Cobb MD [address] [place] [address] On total parenteral nutrition (Primary Dx); Chest [...] often do you attend chur ch or buddhism services? Never 04/05/2024 Do you belong to any clubs o r organizations such as anabaptism groups, unions, fraternal or athletic groups, or [...] time in the past 12 m [facility], were you homeless or living in [...] Patient Age - 38 yrs Patient - [id number] CSN - [id number] Document Creation Date: 04/09/2024 Admitting Provider, : Bruno Cobb MD Discharge Provider, MD: Shanti Freedman MD Primary Care Physician at Discharge: Maurice Duff Jr., MD [phone] Admission Date: 03/30/2024 Discharge Date/time: 04/09/2024 Admission Location: [facility] Hospital LOS - LOS: 9 days DETAILS OF HOSPITAL STAY Hospital Problems/Diagnoses Principal Problem: Intractable nausea and vomiting Active Problems: Intractable vomiting Reason for Hospitalization: Hospital Course: The patient is a 39-year-old female with history of anxiety/depression, GERD, SVT on verapamil and very infrequent marijuana use (twice a month) who presented for intractable nausea and vomiting after returning from a trip to [place]. She has had several negative ER evaluations [...] tolerated diet well was eating regular diet pr ior to DC. Discussed with psychiatry medications reviewed [...] ARIPiprazole 2 mg tablet Commonly known as: ABILILEO HYDROcodone-acetaminophen 5-325 mg per tablet Commonly known as: NORCO pantoprazole DR 40 mg EC tablet Commonly known as: PROTONIX Simpesse 0.15 mg-30 mcg (84)/10 mcg (7) tablets,dose pack,3 month Generic drug: levonorgestrel & ethinyl estradiol traZODone 50 mg tablet Commonly known as: DESYREL Where to Get Your Medications These medications were sent to [facility] [place], [place] - [address] [facility] [address] [facility] [address] 30 mg capsule mirtazapine 7.5 [...] In process Phosphorus In process Thyroid Function [facility] In process Operative Procedures Performed (If Blank, None Found): Procedure(s): ESOPHAGOGASTRODUODENOSCOPY BIOPSY Outpatient Follow-Up: Future Appointments Date Time Provider Department Center 04/19/2024 9:45 AM Juan Sue MD PhD [facility] CAR 200 Specialty 11/12/2024 1:30 PM Aura Horne MD [facility] OB 360 Specialty Please schedule an appointment with the following provider(s): No follow-up provider specified. ANCILLARY INFORMATION Other Procedures & Diagnostic Tests: ECG 12 lead Result Date: 03/31/2024 Vent Rate: 62 bpm RR Interval: 955 msec OR Interval: 101 msec QRS Duration: 86 msec QT Interval: 430 msec QTC Interval: 436 msec P-R-T [place]: 47 - 24 - 56 degrees IMPRESSION: SINUS RHYTHM WITH SHORT OR INTERVAL POSSIBLE RIGHT VENTRICULAR CONDUCTION DELAY BORDERLINE ECG Electronically Signed By: Yahir Miranda [facility] Card ECG 12 lead Result Date: 03/31/2024 Vent Rate: 57 bpm RR Interval: 1035 msec OR Interval: 101 msec QRS Duration: 82 msec QT Interval: 418 msec QTC Interval: 413 msec P-R-T [place]: 48 - 32 - 49 degrees IMPRESSION: SINUS BRADYCARDIA WITH SHORT OR INTERVAL BORDERLINE ECG Electronically Signed By: Yahir Miranda [facility] Card XR Chest PA Lateral [...] 5* 7 CREATININE mg/dL 0.81 0.73 0.75 [id number] mL/min/1.73 m2 >90 >90 >90 GLUCOSE mg/dL [...] Soft Diet effective now Question Answer Comment ([facility]) Diet type GI Diets GI: [...] Found): Patient Emergency Contact: Primary Emergency Contact: GaryAzar lynn, Immunization Status at Discharge Immunization History Administered Date(s) Administered Influenza, Quadrivalent, Cell Culture-based MDCK, Preservative Free, Antibiotic Free, Buhjpvwxyfyfn85/02/2020 Influenza, Quadrivalent, Split, Preservative Free, Intramuscular 04/26/2018 [...] 5* 7 CREATININE mg/dL 0.81 0.73 0.75 [id number] mL/min/1.73 m2 >90 >90 >90 CALCIUM mg/dL [...] Type of Weight Used for Estimated Kcals: Spade Total Protein Estimated Needs (gm): 57.12 Protein Needs Based on g/k.2 Type of Weight Used for Estimated Protein : Spade Dietary Orders (From admission, onward) Start Ordered 04/08/24 1549 Adult Diet GI Diets; GI Soft Diet effective now Question Answer Comment ([facility]) Diet type GI Diets GI: [...] dinner with her parents. She reports attending Platter training on Monday of (she is a [...] obvious between folds of skin Muscle Loss [place] - Temporalis Muscle: Can see/feel well-defined [...] assistance is needed, please call General GI bonbon cream warmer based on Amion schedule. Vitals: 04/08/24 1145 [...] of elemental calcium, oral, QID PRN, Anya Leiws MD, 500 mg at 04/08/242053 clonazePAM (KlonoPIN) [...] in medications at her outpatient pharmacy in [place]. No more nausea or vomiting present since Abilify stopped. Continue the patient on Mirtazapine 7.5 mg orally once daily at Night. Continue with Duloxetine 30 mg orally once daily with evening meal. Continue with PRN Clonazepam medications. Patient can follow up with her outpatient psychiatrist on discharge. Discussed with Dr Shanti Freedman via [employer] chat * Kevon Emanuel MD - 04/08/2024 [...] Ahmad, Bazgha Smooth, DO, 10mL at 04/08/24 08 sodium chloride 0.9% flush 5-10 mL, 5-10 [...] Continue with PRN Clonazepam medications. Discussed with [employer] Chat with GI team and Dr Saba. * Jeanie Ramos PA - 04/08/2024 9:13 AM CDT Pt JEREMY for HIDA scan this morning. Events of weekend reviewed. Refractory N/V. Still with limited PO. Unsuccessful dobhoff trial, dislodged with vomiting. Etiology of N/V yet to be determined. 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 Medications adjusted. Consider low dose TCA if psychiatry agreeable. Will follow. HIDA negative. She is feeling better today. Will trial PO. Medications adjusted yesterday, now off Aripiprazole. Last vomited overnight. Reviewed with psychiatry, prefers to hold on further medication adjustments at this time Discussed with Dr. Emanuel and Dr. Saba via [email or web address] Jeanie Ramos PA-C Cosigned by Anam Jenkins [...] vomiting after returning from a trip to [place]. She has had several negative ER evaluations [...] 200 mg, 200 mg, intramuscular, Q6H PRN, Jenaie Ramos PA, 200 mg at 04/07/24 1224 [...] symptoms started 2 weeks after returning from [place] and recently starting a new job. Her [...] 11 10 CREATININE mg/dL 0.65 0.73 0.74 [id number] mL/min/1.73 m2 >90 >90 >90 CALCIUM mg/dL [...] Type of Weight Used for Estimated Kcals: Spade Total Protein Estimated Needs (gm): 57.12 Protein Needs Based on g/k.2 Type of Weight Used for Estimated Protein : Spade Dietary Orders (From admission, onward) Start Ordered 04/06/24 1421 Tube Feeding Diet Continuous; my4oneone Standard 1.4 Maxime; 40; Nasoduodenal tube; 60;Water; Every 4 hours (Tube Feeding Diet Panel) Diet effective now Comments: Initiate TF at 10 mls/hr, increase by 10 mls q6 until goal of 40 mls/hr is reached. Question Answer Comment Tube feeding type: Continuous ([facility]) Tube Feeding Formula: [employer] 360 Standard 1.4 Maxime Tube Feeding Continuous (mL/hr): 40 Per Tube: Nasoduodenal tube Tube Feeding Flush (mL): 60 Flush Type: Water Flush Frequency: Every 4 hours 04/06/24 1422 04/05/24 1700 Oral Nutrition Supplements ([facility]) Select Supplement: Ensure Clear - Any Flavor All Meals Question: ([facility]) Select Supplement: Answer: Ensure Clear - Any Flavor 04/05/24 1319 04/03/24 1008 Adult Diet Clear Liquid Diet effective now Question: ([facility]) Diet type Answer: Clear Liquid [...] She reports attending EPIC training on Monday of (she is a [...] obvious between folds of skin Muscle Loss [place] - Temporalis Muscle: Can see/feel well-defined [...] at 04/09/2024 11:06 AM CDT * Nicholas Saba, - 04/06/2024 8:52 AM CDT Daily Progress [...] symptoms started 2 weeks after returning from [place] and recently starting a new job. Her [...] Bruno Cobb MD, 0.5 mg at 04/05/24 2135 mirtazapine (REMERON) tablet 7.5 mg, 7.5 mg, [...] hour 1 patch, 1 patch, transdermal, Q72H, Ahmad Baporfirioa Smooth, DO, 1 patch at04/05/24 1505 [...] (premix) 30 mmol, 30 mmol, intravenous, Once, AhmadNicholas Smooth, DO, 30 mmol at 04/05/24 1250 [...] mL, 5-10 mL, intra-catheter, Q12H ELLEN, Ahmad, Baporfirioa Smooth, DO, 10mL at 04/05/24 0906 sodium chloride 0.9% flush 5-20 mL, 5-20 mL, intra-catheter, PRN, Ahmad Baporfirioa Smooth, DO sodium chloride 0.9% infusion, 75 mL/hr, intravenous, Continuous, Ahmad, Bazalejandroa Smooth, DO, Last Rate: 75 mL/hr at 04/05/2424, 75 mL/hr at 04/05/24 0524 traMADoL (ULTRAM) [...] mg/dL 11 10 CREATININE mg/dL 0.73 0.74 [id number] mL/min/1.73 m2 >90 >90 CALCIUM mg/dL 9.2 [...] Type of Weight Used for Estimated Kcals: Spade Total Protein Estimated Needs (gm): 57.12 Protein Needs Based on g/k.2 Type of Weight Used for Estimated Protein : Spade Dietary Orders (From admission, onward) Start Ordered 04/05/24 1700 Oral Nutrition Supplements ([facility]) Select Supplement: Ensure Clear - Any Flavor All Meals Question: ([facility]) Select Supplement: Answer: Ensure Clear - Any Flavor 04/05/24 1319 04/03/24 1008 Adult Diet Clear Liquid Diet effective now Question: ([facility]) Diet type Answer: Clear Liquid [...] dinner with her parents. She reports attending Platter training on Monday of (she is a [...] obvious between folds of skin Muscle Loss [place] - Temporalis Muscle: Can see/feel well-defined [...] symptoms started 2 weeks after returning from [place] and recently starting a new job. Her [...] symptoms started 2 weeks after returning from [place] and recently starting a new job. Her [...] symptoms started 2 weeks after returning from [place]. Her travel companions were not sick. She [...] abdominal pain. She notes after returning from [place] recently she had a day of feeling [...] symptoms started 2 weeks after returning from [place]. Her travel companions anoxic. She denies any [...] Improved, benign abd Jonathan Scruggs MD, [facility] * Latia Thompson, RD - 04/01/2024 3:01 [...] BUN SERUM mg/dL 6 CREATININE mg/dL 0.75 [id number] mL/min/1.73 m2 >90 CALCIUM mg/dL 8.9 ALBUMIN [...] Type of Weight Used for Estimated Kcals: Spade Total Protein Estimated Needs (gm): 57.12 Protein Needs Based on g/k.2 Type of Weight Used for Estimated Protein : Spade Dietary Orders (From admission, onward) Start Ordered [...] dinner with her parents. She reports attending Platter training on Monday of (she is a [...] obvious between folds of skin Muscle Loss [place] - Temporalis Muscle: Can see/feel well-defined [...] motor sensory deficits Jonathan Scruggs MD, [facility] documented in this encounter H&P Notes * Sravan Marsh, - 03/30/2024 9:47 PM CDT [facility] Hospitalist Service History and Physical Encounter [...] Clinton PA Authorized by: Fernando Clinton PA [place] Protocol: RN Notified of Procedure: yes Informed consent: Risks, benefits, alternatives discussed and patient/videotape sales representative/guardian agrees and accepts Patient's stated name/ [...] 04/01/2024 3:02 PM Admit Type: Inpatient Room: [facility] 2 Date of : 1985 Instrument Name: [...] was admitted here on 03/30/2024, here at [facility] for intractable nausea and vomiting. The [...] a good visit with her family to [place] recently. 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 SUBSTANCE ABUSE HISTORY The patient denies [...] for the consultation. Job ID/Internal Job ID: [id number] * Zacarias Nj PA - 04/01/2024 10:56 [...] medication doses. No travel other than to [place]. No headache, no ill contacts. She takes 600mg ibuprofen 1-2 times weekly. She uses cannabis once every couple months. UDS positive for cannabis. No cigarette smoking. Rare ETOH. No illicit drug use. Significant fmhx colon cancer,apparently including Cavanaugh syndrome. She is currently leaving a stressful job and about to start a new job at [facility]. 2013 EGD unremarkable. Also had [...] told that she needs to see a shot packer due to the fact that she has [...] partial remission, most recent episode mixed (CMS/HCC) ([facility]) 03/11/2024 PSVT (paroxysmal supraventricular tachycardia) ([facility]) 03/11/2024 Mixed hyperlipidemia 03/11/2024 Vaginal vestibulitis 03/11/2024 [...] Course as of 03/31/24 0604 Time: 03/30 6141 Comment: Repeat labs are significant for white [...] follow-up By: Noman Henley PA Time: 03/30 860 Comment: Sign out from CARLOS Robles: 38-year-old [...] told that she had to see a shot packer. She has an appointment with them in [...] Noman Henley PA 03/31/24 0604 * Mary Valerio, RUBÉN - 03/30/2024 3:07 PM CDT Pt presents [...] vs,labs. Controlled nausea. Maintain comfort and safety. 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 [...] be picked up for send out to [facility] on 04/08 and results take approximately 1-2 [...] Interview Note Information Obtained From: Patient (04/05/24 1355) Admission Source: ED from home. Impression: Nausea/Vomiting. Bipolar disorder Plan Includes: Return home. Primary Source of Transportation: Does the patient need discharge transport arranged?: No (04/04/24 1018) Health Insurance Coverage: Cigna. Prescription Coverage: yes Pharmacy: [id number] - [place], [place] - [address] [facility] [address] [place] [address] Primary Care Provider: Maurice Duff Jr., MD Prior to Admission: Functional Status: Independent with ADLs Primary Caregiver: Self Support System: Parent Home Care Services: No Outpatient Services: No Durable Medical Equipment: None Living Arrangements: Alone, Other (Comment) (daughter stays with occ.) Type of Residence: Apartment Steps in home?: Yes, Inside home Number of steps inside: 13 steps Medication management: Independent (03/30/24 179) SDOH: Transportation: In the past 12 months, [...] or living in a group home (including now)?: No (04/05/24 1358) Utilities: Social Connections: In a typical week, how many times do you talk on the phone with family, friends, or neighbors?: More than three times a week How often do you get together with friends or relatives?: More than three times a week How often do you attend anabaptism or buddhism services?: Never Do you belong to any clubs or organizations such as anabaptism groups, unions, fraternal or athletic groups, or [...] nurse. Plan is to [place] at [place]. Parents will transport. From chart review, occ. [...] Collaboration with Patient, Provider, Direct Care Nurse, Photoengraving Supervisor, and other members of theHealth Care Team to assure needed interventions completed. 2. Return patient to optimal level of self-care post discharge. 3. Roll Mechanic will follow for Discharge Planning - interventions [...] RN Outcome: Progressing 2024 182 by Emma uHerta RN Outcome: Ongoing Problem: Sensory Goal: Ability [...] 2024 182 by Emma Huerta RN Outcome: Progressing Goal: [...] year old daughter that lives with her partner cco. She does not use any medial equipment. [...] 04/01/2024 7:0 9 AM CDT Thyroid Function [facility] Routine 04/01/2024 7:09 AM CDT Hemoglobin [...] urrences starting 04/01/2024 until 04/01/2024 Thyroid Function [facility] Routine Once for 1 Occurrences starting [...] 5:53 AM CDT 04/09/2024 6:09 AM CDT [facility] DO LAB BLOOD ORDERABLES Amanda l Result Performing Organization Address City/[facility]/ZIP Co de Phone Number [facility] [address] [facility] [place], [place] [id number] * Magnesium (04/09/2024 5:53 AM CDT) Magnesium 2.3 1.4 - 2.5 mg/dL Blood 04/09/2024 5:53 AM CDT 04/09/2024 6:09 AM CDT [facility] Ahmad DO LAB BLOOD ORDERABLES Amanda l Result Performing Organization Address City/[facility]/ZIP Co de Phone Number [facility] [address] Department [place] [address] * (ABNORMAL) Phosphorus (04/09/2024 5:53 AM CDT) Phosphorus, pl 4.8(H) 2.3 - 4.5 mg/dL Blood 04/09/2024 5:53 AM CDT 04/09/2024 6:09 AM CDT Bazfito Smooth Ahmad DO LAB BLOOD ORDERABLES Amanda pierce Result [facility] [address] Department [place] [address] * Comprehensive metabolic panel (04/09/2024 5:53 AM CDT) Sodium 135 135 - 145 mmol/L Potassium, pl 4.0 3.3 - 4.9 mmol/L [facility] Chloride 99 97 - 110 mmol/L [facility] CO2 25 22 - 32 mmol/L [facility] Anion gap 11 2 - 15 mmol/L [facility] BUN 7 6 - 25 mg/dL [facility] Creatinine 0.81 0.60 - 1.10 mg/dL [facility] Glucose 104 70 - 199 mg/dL [facility] Comment: Interpretive Data Fasting glucose >/= 126 [...] 2022. Calcium 9.4 8.5 - 10.3 mg/dL [facility] Bilirubin, total 0.4 0.1 - 1.2 mg/dL [facility] Protein, pl 6.8 6.5 - 8.5 g/dL [facility] Albumin 3.8 3.5 - 5.0 g/dL [facility] Alk phos 84 40 - 130 Units/L [facility] ALT 35 7 - 45 Units/L [facility] AST 24 10 - 45 Units/L [facility] Blood 04/09/2024 5:53 AM CDT 04/09/2024 6:09 AM CDT Masoodalejandrolayla Rebollar Ahmad DO LAB BLOOD ORDERABLES Amanda l Result [facility] [address] Department [place] [address] * NM Hepatobiliary Imaging W GBEF (04/08/2024 [...] Electronically signed by: Fan Goldberg M.D. Nicholas Laddiaz Ahmad DO IMG NM PROCEDURES Final R esult [...] AM CDT 04/08/2024 4:25 AM CDT Nicholas Laddiaz Ahjasield DO LAB BLOOD ORDERABLES Amanda pierce Result [facility] [address] Department of Laboratories [place], [place] [id number] * (ABNORMAL) Differential, auto (04/08/2024 3:57 AM CDT) Neutrophil abs 3.4 1.5 - 6.5 K/cumm Imm gran abs 0.0 0.0 - 0.1 K/cumm [facility] Lymphocyte abs 3.7(H) 0.8 - 3.3 K/cumm [facility] Monocyte abs 1.0(H) 0.2 - 0.8 K/cumm [facility] Eosinophil abs 0.1 0.0 - 0.5 K/cumm [facility] Basophil abs 0.0 0.0 - 0.1 K/cumm [facility] Neutrophil pct 41.1 % [facility] Comment: Interpretive Data Percent cell count reference ranges are not reported, since discordance with absolute values may lead to misinterpretation of CBC data. Current Interpretive Data was last revised on 2017. Imm gran pct 0.2 % [facility] Comment: Interpretive Data Percent cell count reference ranges are not reported, since discordance with absolute values may lead to misinterpretation of CBC data. Current Interpretive Data was last revised on 2017. Lymphocyte pct 44.1 % [facility] Comment: Interpretive Data Percent cell count reference ranges are not reported, since discordance with absolute values may lead to misinterpretation of CBC data. Current Interpretive Data was last revised on 2017. Monocyte pct 12.4 % [facility] Comment: Interpretive Data Percent cell count reference ranges are not reported, since discordance with absolute values may lead to misinterpretation of CBC data. Current Interpretive Data was last revised on 2017. Eosinophil pct 1.7 % [facility] Comment: Interpretive Data Percent cell count reference ranges are not reported, since discordance with absolute values may lead to misinterpretation of CBC data. Current Interpretive Data was last revised on 2017. Basophil pct 0.5 % [facility] Comment: Interpretive Data Percent cell count reference ranges are not reported, since discordance with absolute values may lead to misinterpretation of CBC data. Current Interpretive Data was last revised on 2017. Blood 04/08/2024 3:57 AM CDT 04/08/2024 4:25 AM CDT us Nicholas Rebollar Ahjoey DO LAB BLOOD ORDERABLES Amanda l Result [facility] [address] Department [place] [address] * Magnesium (04/08/2024 3:57 AM CDT) Pathologist [facility] Magnesium 2.2 1.4 - 2.5 mg/dL Blood 04/08/2024 3:57 AM CDT 04/08/2024 4:25 AM CDT [facility] Polosdd DO LAB BLOOD ORDERABLES Amanda l Result [facility] [address] Department [place] [address] * (ABNORMAL) Phosphorus (04/08/2024 3:57 AM CDT) Pathologist [facility] Phosphorus, pl 4.6(H) 2.3 - 4.5 mg/dL Blood 04/08/2024 3:57 AM CDT 04/08/2024 4:25 AM CDT [facility]LES Amanda l Result Performing Organization Address City/[facility]/ZIP Co de Phone Number [facility] [address] [facility] [place] [address] * (ABNORMAL) Comprehensive metabolic panel (04/08/2024 3:57 AM CDT) [facility] Sodium 137 135 - 145 mmol/L Potassium, pl 3.1(L) 3.3 - 4.9 mmol/L [facility] Chloride 100 97 - 110 mmol/L [facility] CO2 27 22 - 32 mmol/L [facility] Anion gap 10 2 - 15 mmol/L [facility] BUN 5(L) 6 - 25 mg/dL [facility] Creatinine 0.73 0.60 - 1.10 mg/dL [facility] Glucose 117 70 - 199 mg/dL [facility] Comment: Interpretive Data Fasting glucose >/= 126 [...] 2022. Calcium 9.3 8.5 - 10.3 mg/dL [facility] Bilirubin, total 0.5 0.1 - 1.2 mg/dL [facility] Protein, pl 6.8 6.5 - 8.5 g/dL [facility] Albumin 3.9 3.5 - 5.0 g/dL [facility] Alk phos 82 40 - 130 Units/L [facility] ALT 26 7 - 45 Units/L [facility] AST 19 10 - 45 Units/L [facility] Blood 04/08/2024 3:57 AM CDT 04/08/2024 4:25 AM CDT Nicholas Saba DO LAB BLOOD ORDERABLES Amanda l Result [facility] [address] [place] [address] * CBC with auto differential (04/08/2024 3:57 AM CDT) WBC 8.4 3.8 - 9.9 K/cumm Hgb 13.2 11.9 - 15.5 g/dL [facility] Hct 40.2 35.6 - 45.5 % [facility] Plt 284 150 - 400 K/cumm [facility] MPV 11.2 9.1 - 12.3 fL [facility] RBC 4.52 3.90 - 5.20 M/cumm [facility] MCV 88.9 81.3 - 96.4 fL [facility] MCH 29.2 27.1 - 33.3 pg [facility] MCHC 32.8 32.3 - 35.7 g/dL [facility] RDW CV 13.7 11.1 - 14.9 % [facility] RDW SD 44.3 35.7 - 48.1 fL [facility] NRBC abs 0.00 0.00 - 0.01 K/cumm [facility] Blood 04/08/2024 3:57 AM CDT 04/08/2024 4:25 AM CDT us Bazgha Smooth Ahmad DO LAB BLOOD ORDERABLES Amanda l Result [facility] [address] Department [place] [address] * XR Chest 1 View (04/07/2024 2:48 [...] PA Authorized by: Fernando Clinton PA ?? [place] Protocol: RN Notified of Procedure: yes ?? Informed consent: ??Risks, benefits, alternatives discussed and patient/videotape sales representative/guardian agrees and accepts Patient's stated name/ [...] 7:33 AM CDT 04/07/2024 7:44 AM CDT Masoodlayla LaddSmooth Ahmad DO LAB BLOOD ORDERABLES Amanda l Result [facility] [address] [place] [address] * Magnesium (04/07/2024 7:33 AM CDT) Magnesium 2.0 1.4 - 2.5 mg/dL Blood 04/07/2024 7:33 AM CDT 04/07/2024 7:44 AM CDT [facility] Sm[facility] Ahmad DO LAB BLOOD ORDERABLES Amanda l Result Performing Organization Address City/[facility]/ZIP Co de Phone Number [facility] [address] Department [place] [address] * Phosphorus (04/07/2024 7:33 AM CDT) Pathologist [facility] Phosphorus, pl 3.8 2.3 - 4.5 mg/dL Blood 04/07/2024 7:33 AM CDT 04/07/2024 7:44 AM CDT Bazgha Smooth Ahmad DO LAB BLOOD ORDERABLES Amanda l Result Performing Organization Address [facility]/ZIP Co de Phone Number [facility] [address] Department [place] [address] * (ABNORMAL) Comprehensive metabolic panel (04/07/2024 7:33 AM CDT) [facility] Sodium 138 135 - 145 mmol/L Potassium, pl 3.0(L) 3.3 - 4.9 mmol/L [facility] Chloride 92(L) 97 - 110 mmol/L [facility] CO2 32 22 - 32 mmol/L [facility] Anion gap 14 2 - 15 mmol/L [facility] BUN 7 6 - 25 mg/dL [facility] Creatinine 0.75 0.60 - 1.10 mg/dL [facility] Glucose 135 70 - 199 mg/dL [facility] Comment: Interpretive Data Fasting glucose >/= 126 [...] 2022. Calcium 9.6 8.5 - 10.3 mg/dL [facility] Bilirubin, total 0.6 0.1 - 1.2 mg/dL [facility] Protein, pl 7.2 6.5 - 8.5 g/dL [facility] Albumin 4.0 3.5 - 5.0 g/dL [facility] Alk phos 93 40 - 130 Units/L [facility] ALT 28 7 - 45 Units/L [facility] AST 19 10 - 45 Units/L [facility] Blood 04/07/2024 7:33 AM CDT 04/07/2024 7:44 AM CDT [facility] DO LAB BLOOD ORDERABLES Amanda l Result [facility] [address] [facility] [address] * (ABNORMAL) Calprotectin, fecal (04/06/2024 10:02 PM CDT) Calprotectin, fecal 221(H) <50.0 (Normal) mcg/g [facility] Comment: Interpretation: Abnormal (>120 mcg/g) Test Performed by: [place] [address] X Ray Service Engineer: Ronaldo Delgado Ph.D.; CLIA# [id number] Stool 04/06/2024 10:0 2 PM CDT 04/06/2024 10:02 PM CDT [facility] [place] BODY FLUIDS AND STOOL S ORDERABLES Final Result [facility] [address] [place] [address] [facility] * XR Abdomen Ap 1 [...] CDT 04/06/2024 11:04 AM CDT us Nicholas Laddiaz Ahmad DO LAB BLOOD ORDERABLES Amanda pierce Result [facility] [address] [place] [address] * eGFR (04/06/2024 10:53 AM [...] 3 AM CDT 04/06/2024 11:04 AM CDT [facility] DO LAB BLOOD ORDERABLES Amanda l Result Performing Organization Address City/[facility]/ZIP Co de Phone Number [facility] [address] [facility] [place], [place] [id number] * Magnesium (04/06/2024 10:53 AM CDT) Magnesium 1.8 1.4 - 2.5 mg/dL Blood 04/06/2024 10:5 3 AM CDT 04/06/2024 11:04 AM CDT [facility] Sm[facility] DO LAB BLOOD ORDERABLES Amanda l Result [facility] [address] Department [place] [address] * Phosphorus (04/06/2024 10:53 AM CDT) Phosphorus, pl 2.9 2.3 - 4.5 mg/dL Blood 04/06/2024 10:5 3 AM CDT 04/06/2024 11:04 AM CDT Nicholas Rebollar Ahjoey DO LAB BLOOD ORDERABLES Amanda pierce Result [facility] [address] Department [place] [address] * (ABNORMAL) Comprehensive metabolic panel (04/06/2024 10:53 AM CDT) Sodium 136 135 - 145 mmol/L Potassium, pl 3.3 3.3 - 4.9 mmol/L [facility] Chloride 95(L) 97 - 110 mmol/L [facility] CO2 28 22 - 32 mmol/L [facility] Anion gap 13 2 - 15 mmol/L [facility] BUN 5(L) 6 - 25 mg/dL [facility] Creatinine 0.65 0.60 - 1.10 mg/dL [facility] Glucose 136 70 - 199 mg/dL [facility] Comment: Interpretive Data Fasting glucose >/= 126 [...] 2022. Calcium 9.8 8.5 - 10.3 mg/dL [facility] Bilirubin, total 0.5 0.1 - 1.2 mg/dL [facility] Protein, pl 7.7 6.5 - 8.5 g/dL [facility] Albumin 4.4 3.5 - 5.0 g/dL [facility] Alk phos 93 40 - 130 Units/L [facility] ALT 38 7 - 45 Units/L [facility] AST 20 10 - 45 Units/L [facility] Blood 04/06/2024 10:5 3 AM CDT 04/06/2024 11:04 AM CDT Nicholas Garibayd DO LAB BLOOD ORDERABLES Amanda l Result Performing Organization Address [facility] Co de Phone Number [facility] [address] [place] [address] * (ABNORMAL) Beta-hydroxybutyrate (04/05/2024 5:36 PM CDT) Beta-Hydroxybut yrate 1.9(H) <=0.5 mmol/L Blood 04/05/2024 5:36 PM CDT 04/05/2024 5:43 PM CDT [facility] DO LAB BLOOD ORDERABLES Amanda l Result Performing Organization Address City/[facility] Co de Phone Number [facility] [address] Department [place] [address] * Lactate (04/05/2024 5:36 PM CDT) Pathologist [facility] Lactate 0.9 0.7 - 2.0 mmol/L Blood 04/05/2024 5:36 PM CDT 04/05/2024 5:42 PM CDT [facility] DO LAB BLOOD ORDERABLES Amanda l Result Performing Organization Address City/[facility] Co de Phone Number [facility] [address] [facility] [place] [address] * Glycohemoglobin A1C - Add on lab test (04/05/2024 1:43 PM CDT) Acceptable Yes Blood 04/05/2024 1:43 PM CDT 04/05/2024 1:43 PM CDT Narrative [facility] - 04/05/2024 1:43 PM CDT Name of Test->Glycohemoglobin A1C Masoodlayla Saba DO LAB BLOOD ORDERABLES Amanda l Result Performing Organization Address City/[facility]/ZIP Co de Phone Number [facility] [address] Department [place] [address] * (ABNORMAL) Edwin-Montoya virus (EBV) antibody panel Blood (04/05/2024 10:47 AM CDT) [facility] EBV nuclear Ab Positive(A) Negative Comment: Indicates the presence of detectable IgG antibody to EBV Nuclear Antigen. Testing performed by: [address] [address] EBV VCA IgG Positive(A) Negative [facility] Comment: Indicates the presence of antibody; 90% of the adult population will have been infected with EBV sometime in the past. Testing performed by: [facility], [address] [place]., [address] EBV VCA IgM Negative Negative [facility] Comment: No detectable IgM antibody to EBV-VCA. ??A negative result indicates no current infection with EBV. If clinical suspicion of acute EBV infection is present, testing should be repeated after one week. Testing performed by: [facility], [address] [place] [address]., [address] EBV interp Past Infection [facility] Comment:Testing performed by : [address] [address] Blood 04/05/2024 10:4 7 AM CDT 04/05/2024 9:02 PM CDT Nicholas Rebollar Ahjasield DO LAB MICROBIOLOGY - GENERA L ORDERABLES Final Result Performing Organization Address City/[facility]/ZIP Co de Phone Number [facility] [address] Department [place] [address] * (ABNORMAL) CMV, IgG and IgM antibodies [...] or recent CMV infection. Testing performed by: [facility], [address] [place] [address]., [address] CMV IgM Negative Negative [facility] Comment: Interpretive Data Negative - Negative CMV [...] (primary, reactivation, or reinfection). Testing performed by: [facility], [address] [place] [address]., [address] Blood 04/05/2024 10:4 7 AM CDT 04/05/2024 9:02 PM CDT us Nicholas Laddiaz Ahmad LAB MICROBIOLOGY - GENERA L ORDERABLES Final Result [facility] [address] Department of Laboratories [place], [place] [id number] * Hepatic function panel - Add on lab test (04/05/2024 9:46 AM CDT) Acceptable Yes Blood 04/05/2024 9:46 AM CDT 04/05/2024 9:46 AM CDT Narrative [facility] - 04/05/2024 9:46 AM CDT Name of Test->Hepatic function panel Jeanie GONZALEZ LAB BLOOD ORDERABLES Final Re sult Performing Organization Address [facility] Co de Phone Number [facility] [address] [facility] [place] [employer] [place], [place] [id number] * Phosphorus - Add on lab test (04/05/2024 9:10 AM CDT) Acceptable Yes Blood 04/05/2024 9:10 AM CDT 04/05/2024 9:10 AM CDT Narrative [facility] - 04/05/2024 9:10 AM CDT Name of Test->Phosphorus [facility] Ahmad DO LAB BLOOD ORDERABLES Amanda l Result Performing Organization Address [facility] Co de Phone Number [facility] [address] [facility] [place] [employer] [place], [place] [id number] * Magnesium - Add on lab test (04/05/2024 9:10 AM CDT) Pathologist [facility] Acceptable Yes Blood 04/05/2024 9:10 AM CDT 04/05/2024 9:10 AM CDT Narrative [facility] 04/05/2024 9:10 AM CDT Name of Test->Magnesium [facility] Sm[facility] DO LAB BLOOD ORDERABLES Amanda l Result Performing Organization Address [facility] Co de Phone Number [facility] [address] Department [place] [employer] [place], [place] [id number] * (ABNORMAL) Hepatic function panel (04/05/2024 6:59 AM CDT) [facility] Bilirubin, total 0.5 0.1 - 1.2 mg/dL Bilirubin, direct 0.2 0.1 - 0.3 mg/dL [facility] Protein, pl 7.4 6.5 - 8.5 g/dL [facility] Albumin 4.2 3.5 - 5.0 g/dL [facility] Alk phos 87 40 - 130 Units/L [facility] ALT 48(H) 7 - 45 Units/L [facility] AST 33 10 - 45 Units/L [facility] Blood 04/05/2024 6:59 AM CDT 04/05/2024 7:27 AM CDT Joannea Smooth Ahmad DO LAB BLOOD ORDERABLES Amanda l Result Performing Organization Address City/[facility]/ZIP Co de Phone Number [facility] [address] [facility] [place] [employer] [place], [place] [id number] * Magnesium (04/05/2024 6:59 AM CDT) Pathologist [facility] Magnesium 1.9 1.4 - 2.5 mg/dL Blood 04/05/2024 6:59 AM CDT 04/05/2024 7:27 AM CDT [facility] Sm[facility] Ahmad DO LAB BLOOD ORDERABLES Amanda l Result Performing Organization Address [facility] Co de Phone Number [facility] [address] Department [place] [employer] [place], [place] [id number] * (ABNORMAL) Phosphorus (04/05/2024 6:59 AM CDT) Pathologist [facility] Phosphorus, pl 1.4(L) 2.3 - 4.5 mg/dL Comment:Spoke to: Loretta (RN ) @ 1009 Blood 04/05/2024 6:59 AM CDT 04/05/2024 7:27 AM CDT Joannea Smooth Ahmad DO LAB BLOOD ORDERABLES Amanda l Result Performing Organization Address City/[facility] Co de Phone Number [facility] [address] [facility] [place] [employer] [place], [place] [phone] * eGFR (04/05/2024 6:59 AM CDT) [facility] eGFR >90 >=60 mL/min/1. 73 m2 [...] DO LAB BLOOD ORDERABLES Amanda stan Result [facility] [address] [place] [address] * (ABNORMAL) Basic metabolic panel (04/05/2024 6:59 AM CDT) Sodium 136 135 - 145 mmol/L Potassium, pl 3.4 3.3 - 4.9 mmol/L [facility] Chloride 99 97 - 110 mmol/L [facility] CO2 21(L) 22 - 32 mmol/L [facility] Anion gap 16(H) 2 - 15 mmol/L [facility] BUN 11 6 - 25 mg/dL [facility] Creatinine 0.73 0.60 - 1.10 mg/dL [facility] Glucose 104 70 - 199 mg/dL [facility] Comment: Interpretive Data Fasting glucose >/= 126 [...] 2022. Calcium 9.2 8.5 - 10.3 mg/dL [facility] Blood 04/05/2024 6:59 AM CDT 04/05/2024 7:27 AM CDT [facility] [place] BLOOD ORDERABLES Amanda l Result Performing Organization Address City/[facility]/ZIP Co de Phone Number [facility] [address] [place] [address] * C. difficile testing Stool (04/05/2024 5:32 AM CDT) [facility] Result Negative Negative Toxin Result Negative Negative [facility] C. diff result Negative, free toxin Negative, free toxin [facility] C. diff interp Negative for toxigenic Clostridioides (Clostridium) difficile. Analysis was performed using a glutamate dehydrogenase antigen detection assay combined with a C. difficile toxin detection assay. [facility] Stool 04/05/2024 5:32 AM CDT 04/05/2024 5:46 AM CDT [facility] On[employer] LAB MICROBIOLOGY - GENERA L ORDERABLES Final Result [facility] [address] Department [place] [address] * Phosphorus - Add on lab test (2024 1:56 PM CDT) Acceptable Yes Blood 2024 1:56 PM CDT 2024 1:56 PM CDT Narrative [facility] - 2024 1:56 PM CDT Name of Test->Phosphorus Masoodlayla Smooth Ahmad DO LAB BLOOD ORDERABLES Amanda l Result [facility] [address] [facility] [place] [address] * Magnesium - Add on lab test (2024 1:56 PM CDT) Acceptable Yes Blood 2024 1:56 PM CDT 2024 1:56 PM CDT Narrative [facility] 2024 1:56 PM CDT Name of Test->Magnesium Masoodlayla Smooth Polomad DO LAB BLOOD ORDERABLES Amanda l Result Performing Organization Address [facility]/ZIP Co de Phone Number [facility] [address] [facility] [place] [address] * Hepatic function panel - Add on lab test (2024 11:51 AM CDT) Acceptable Yes Blood 2024 11:5 1 AM CDT 2024 11:51 AM CDT Narrative [facility] - 2024 11:51 AM CDT Name of Test->Hepatic function panel Jeanie GONZALEZ LAB BLOOD ORDERABLES Final Re sult [facility] [address] Department [place] [address] * Magnesium (2024 7:13 AM CDT) Magnesium 2.2 1.4 - 2.5 mg/dL Blood 2024 7:13 AM CDT 2024 7:56 AM CDT [facility] LAB BLOOD ORDERABLES Amanda l Result [facility] [address] [facility] [place] [address] * Phosphorus (2024 7:13 AM CDT) Pathologist [facility] Phosphorus, pl 4.2 2.3 - 4.5 mg/dL Blood 2024 7:13 AM CDT 2024 7:56 AM CDT [facility] DO LAB BLOOD ORDERABLES Amanda l Result Performing Organization Address City/[facility] Co de Phone Number [facility] [address] [facility] [place] [address] * (ABNORMAL) Hepatic function panel (2024 7:13 AM CDT) Bilirubin, total 0.4 0.1 - 1.2 mg/dL Bilirubin, direct <0.2 0.1 - 0.3 mg/dL [facility] Comment:Moderately Hemolyzed Specimen Protein, pl 7.7 6.5 - 8.5 g/dL [facility] Albumin 4.1 3.5 - 5.0 g/dL [facility] Alk phos 94 40 - 130 Units/L [facility] ALT 58(H) 7 - 45 Units/L [facility] Comment:Moderately Hemolyzed Specimen AST 57(H) 10 - 45 Units/L [facility] Comment:Moderately Hemolyzed Specimen Blood 2024 7:13 AM CDT 2024 7:56 AM CDT us Nicholas Rebollar Ahmad DO LAB BLOOD ORDERABLES Amanda l Result Performing Organization Address [facility] Co de Phone Number [facility] [address] [place] [address] * eGFR (2024 7:13 AM CDT) eGFR [...] ORDERABLES Amanda l Result Performing Organization Address [facility] Co de Phone Number [facility] [address] [place] [address] * (ABNORMAL) Basic metabolic panel (2024 7:13 AM CDT) Sodium 135 135 - 145 mmol/L Potassium, pl 4.5 3.3 - 4.9 mmol/L [facility] Comment:Hemolyzed; potassium value may be falsely elevated by as much as 0.6 - 1.0 mmol/L. Suggest redraw and reanalysis Chloride 97 97 - 110 mmol/L [facility] CO2 22 22 - 32 mmol/L [facility] Anion gap 16(H) 2 - 15 mmol/L [facility] BUN 10 6 - 25 mg/dL [facility] Creatinine 0.74 0.60 - 1.10 mg/dL [facility] Glucose 98 70 - 199 mg/dL [facility] Comment: Interpretive Data Fasting glucose >/= 126 [...] 2022. Calcium 9.8 8.5 - 10.3 mg/dL [facility] Blood 2024 7:13 AM CDT 2024 7:56 AM CDT us Bazgha Smooth Ahmad DO LAB BLOOD ORDERABLES Amanda l Result [facility] [address] [place] [address] * CT Abdomen Pelvis W Contrast (04/03/2024 [...] signed by: Jovanna Read M.D. Jeanie GONZALEZ IMAndrzej CT PROCEDURES Final Resul t * eGFR [...] AM CDT 04/03/2024 11:56 AM CDT Nicholas Laddiaz Ahmad DO LAB BLOOD ORDERABLES Amanda l Result [facility] [address] [place] [address] * (ABNORMAL) Basic metabolic panel (04/03/2024 11:19 AM CDT) Sodium 136 135 - 145 mmol/L Potassium, pl 4.0 3.3 - 4.9 mmol/L [facility] Chloride 99 97 - 110 mmol/L [facility] CO2 20(L) 22 - 32 mmol/L [facility] Anion gap 17(H) 2 - 15 mmol/L [facility] BUN 11 6 - 25 mg/dL [facility] Creatinine 0.81 0.60 - 1.10 mg/dL [facility] Glucose 97 70 - 199 mg/dL [facility] Comment: Interpretive Data Fasting glucose >/= 126 [...] 2022. Calcium 9.5 8.5 - 10.3 mg/dL [facility] Blood 04/03/2024 11:1 9 AM CDT 04/03/2024 11:56 AM CDT Shaneza Smooth Ahmad DO LAB BLOOD ORDERABLES Amanda l Result Performing Organization Address City/[facility]/ZIP Co de Phone Number [facility] [address] [place] [address] * MRI Brain W WO Contrast (04/02/2024 [...] Influenza A RNA Not Detected Not Detected [facility] Influenza B RNA Not Detected Not Detected [facility] RSV RNA Not Detected Not Detected [facility] COVID-19 RNA Not Detected Not Detected [facility] Coronavirus 229E RNA Not Detected Not Detected [facility] Coronavirus HKU1 RNA Not Detected Not Detected [facility] Coronavirus NL63 RNA Not Detected Not Detected [facility] Coronavirus OC43 RNA Not Detected Not Detected [facility] Adenovirus DNA Not Detected Not Detected [facility] Metapneumovirus RNA Not Detected Not Detected [facility] Rhinovirus/Enterov irus RNA Not Detected Not Detected [facility] Parainfluenza 1 RNA Not Detected Not Detected [facility] Parainfluenza 2 RNA Not Detected Not Detected [facility] Parainfluenza 3 RNA Not Detected Not Detected [facility] Parainfluenza 4 RNA Not Detected Not Detected [facility] B. pertussis DNA Not Detected Not Detected [facility] B. parapertussis DNA Not Detected Not Detected [facility] C. pneumoniae DNA Not Detected Not Detected [facility] M. pneumoniae DNA Not Detected Not Detected [facility] Comment: Interpretive Data The SwingTime FilmArray Respiratory Panel (RP2.1) assay is a [...] assay has FDA clearance for testing of IT SECURITY ARCHITECT swabs. ??The performance characteristics of this assay have been determined by [facility]. Current interpretive data was last revised on 2021. Nasopharyngeal 04/02/2024 12 :54 PM CDT 04/02/2024 1:14 PM CDT Narrative [facility] - 04/02/2024 2:06 PM CDT Is the Patient experiencing symptoms consistent with COVID?->Yes Surveillance testing for transplant patient?->No [facility] Ahmad DO LAB MICROBIOLOGY - GENERA L ORDERABLES Final Result Performing Organization Address City/[facility]/ZIP Co de Phone Number [facility] [address] [place] [address] MBC * Cortisol - Add on lab test (04/02/2024 10:42 AM CDT) Acceptable Yes Blood 04/02/2024 10:4 2 AM CDT 04/02/2024 10:42 AM CDT Narrative [facility] 04/02/2024 10:43 AM CDT Name of Test->Cortisol [facility] Ahmad DO LAB BLOOD ORDERABLES Amanda l Result [facility] [address] Department [place] [address] * TSH reflex Free T4 - Add on lab test (04/02/2024 10:42 AM CDT) Acceptable Yes Blood 04/02/2024 10:4 2 AM CDT 04/02/2024 10:42 AM CDT Narrative [facility] - 04/02/2024 10:43 AM CDT Name of Test->TSH reflex Free T4 us Bazghlayla Smooth Ahmad DO LAB BLOOD ORDERABLES Amanda pierce Result [facility] [address] Department [place] [address] * US Abdomen Limited (04/02/2024 8:01 AM [...] by: Osei Felipe M.D. Bruno Cobb MD [facility] US PROCEDURES F inal Result * XR [...] Yosef Lopez M.D., MPH Bruno Cobb MD [facility] XR PROCEDURES F inal Result * Surgical pathology (04/01/2024 3:14 PM CDT) Tissue (Gastric/Stomach biopsy) 04/01/2024 3:14 PM CDT Comment:Rule out H Pylori Narrative [facility] - 04/02/2024 10:59 AM CDT [address] ??[address] Tele: ?? Kisha Parks MD - Termite Renewal Inspector Note to Patients: This report may contain [...] REPORT Patient Name: ??ÁNGELA IBRAHIM Address: ??[address] [place] ??[address] Gender: ??F : ??1985 (Age: 38) Service: ??Medical Location: ??[id number], ?? Hospital #: ??[id number] Patient Type: ??[facility] Accession #: ? [id number] Taken: ? 04/01/2024 Received ? 04/01/2024 Reported: [...] H&E stained sections. Clerical Data Follows A; [id number] REPORT IMAGES AND/OR SCANNED DOCUMENTS ONLY VIEWABLE IN PDF FORMAT The immunohistochemical test(s) cited in this report, if any, was developed and its performance characteristics determined by [facility]. ??It has not been cleared or approved by the U.S. Food and Drug Administration. ??The FDA has determined that such clearance or approval is not necessary. ??This test is used for clinical purposes. ??It should not be regarded as investigational or for research. ??[facility] is certified under the Clinical [...] LAB PATHOLOGY ORDER SHARON Final Result [facility] Laboratory Receiving [address] [place] [address] * EGD (04/01/2024 3:02 PM CDT) Anatomical Region Laterality Modality Other Narrative Procedure Note Bruno Cobb MD - 04/01/2024 3:02 PM CDT ENDOSCOPY LAB Patient Name: Ángela Ibrahim Procedure Date: 04/01/2024 3:02 PM Admit Type: Inpatient Room: [facility] 2 Date of : 1985 Instrument Name: [...] PM Scope In: Scope Out: us Bruno oCbb MD ENDOSCOPY PROCEDURE S Final Result * POCT hCG, urine (04/01/2024 2:05 PM CDT) HCG, ur, POC Negative Negative Lot Number [id number] QC Backgroud Clear Acceptable QC Control Line Acceptable Urine 04/01/2024 2:05 PM CDT Bruno Cobb MD POINT OF CARE TEST ORDERABLES Final Result * Hemoglobin A1c (04/01/2024 7:09 AM CDT) Pathologist [facility] Hgb A1C 5.6 4.0 - 5.6 % Estimated Average Glucose 114 mg/dL [facility] Comment: The ADA recommends reporting an estimated Average Glucose (eAG) with all Hemoglobin A1c results using the equation derived from a study of 507 normal and diabetic adults. ??Minority populations were underrepresented and children were not included. ?? (Diabetes Care 31:3795-6432, 2008). ??The eAG is not equivalent to a fasting glucose. Blood 04/01/2024 7:09 AM CDT 04/01/2024 8:02 AM CDT [facility] LAB BLOOD ORDERABLES Amanda l Result [facility] [address] [place] [address] * Thyroid Function [place] (04/01/2024 7:09 AM CDT) [facility] TSH 1.85 0.30 - 4.20 mcIUnit/mL Blood 04/01/2024 7:09 AM CDT 04/01/2024 8:01 AM CDT [facility] DO LAB BLOOD ORDERABLES Amanda l Result [facility] [address] Department [place] [address] * Cortisol (04/01/2024 7:09 AM CDT) [facility] Cortisol 14.1 4.8 - 19.5 mcg/dl Blood 04/01/2024 7:09 AM CDT 04/01/2024 8:01 AM CDT us Nicholas Rebollar Ahmad DO LAB BLOOD ORDERABLES Amanda l Result Performing Organization Address [facility]/ZIP Co de Phone Number [facility] [address] [place] [address] * eGFR (04/01/2024 7:09 AM CDT) eGFR [...] ORDERABLES Fi nal Result Performing Organization Address City/[facility]/ZIP Co de Phone Number [facility] [address] [place] [phone] * Differential, auto (04/01/2024 7:09 AM CDT) Neutrophil abs 2.3 1.5 - 6.5 K/cumm Imm gran abs 0.0 0.0 - 0.1 K/cumm [facility] Lymphocyte abs 3.1 0.8 - 3.3 K/cumm [facility] Monocyte abs 0.6 0.2 - 0.8 K/cumm [facility] Eosinophil abs 0.3 0.0 - 0.5 K/cumm [facility] Basophil abs 0.0 0.0 - 0.1 K/cumm [facility] Neutrophil pct 36.6 % [facility] Comment: Interpretive Data Percent cell count reference ranges are not reported, since discordance with absolute values may lead to misinterpretation of CBC data. Current Interpretive Data was last revised on 2017. Imm gran pct 0.2 % [facility] Comment: Interpretive Data Percent cell count reference ranges are not reported, since discordance with absolute values may lead to misinterpretation of CBC data. Current Interpretive Data was last revised on 2017. Lymphocyte pct 49.4 % [facility] Comment: Interpretive Data Percent cell count reference ranges are not reported, since discordance with absolute values may lead to misinterpretation of CBC data. Current Interpretive Data was last revised on 2017. Monocyte pct 9.2 % [facility] Comment: Interpretive Data Percent cell count reference ranges are not reported, since discordance with absolute values may lead to misinterpretation of CBC data. Current Interpretive Data was last revised on 2017. Eosinophil pct 4.0 % [facility] Comment: Interpretive Data Percent cell count reference ranges are not reported, since discordance with absolute values may lead to misinterpretation of CBC data. Current Interpretive Data was last revised on 2017. Basophil pct 0.6 % [facility] Comment: Interpretive Data Percent cell count reference ranges are not reported, since discordance with absolute values may lead to misinterpretation of CBC data. Current Interpretive Data was last revised on 2017. Blood 04/01/2024 7:09 AM CDT 04/01/2024 8:02 AM CDT us Jonathan Scruggs MD LAB BLOOD ORDERABLES Fi nal Result [facility] [address] [place] [address] * Comprehensive metabolic panel (04/01/2024 7:09 AM CDT) Sodium 137 135 - 145 mmol/L Potassium, pl 4.0 3.3 - 4.9 mmol/L [facility] Chloride 105 97 - 110 mmol/L [facility] CO2 22 22 - 32 mmol/L [facility] Anion gap 10 2 - 15 mmol/L [facility] BUN 6 6 - 25 mg/dL [facility] Creatinine 0.75 0.60 - 1.10 mg/dL [facility] Glucose 71 70 - 199 mg/dL [facility] Comment: Interpretive Data Fasting glucose >/= 126 [...] 2022. Calcium 8.9 8.5 - 10.3 mg/dL [facility] Bilirubin, total 0.4 0.1 - 1.2 mg/dL [facility] Protein, pl 6.5 6.5 - 8.5 g/dL [facility] Albumin 3.6 3.5 - 5.0 g/dL [facility] Alk phos 76 40 - 130 Units/L [facility] ALT 30 7 - 45 Units/L [facility] AST 25 10 - 45 Units/L [facility] Blood 04/01/2024 7:09 AM CDT 04/01/2024 8:01 AM CDT Jonathan Scruggs MD LAB BLOOD ORDERABLES Fi nal Result Performing Organization Address [facility] Co de Phone Number [facility] [address] [facility] [place], [place] [id number] * CBC with auto differential (04/01/2024 7:09 AM CDT) [facility] WBC 6.3 3.8 - 9.9 K/cumm Hgb 12.5 11.9 - 15.5 g/dL [facility] Hct 38.2 35.6 - 45.5 % [facility] Plt 334 150 - 400 K/cumm [facility] MPV 10.7 9.1 - 12.3 fL [facility] RBC 4.30 3.90 - 5.20 M/cumm [facility] MCV 88.8 81.3 - 96.4 fL [facility] MCH 29.1 27.1 - 33.3 pg [facility] MCHC 32.7 32.3 - 35.7 g/dL [facility] RDW CV 13.2 11.1 - 14.9 % [facility] RDW SD 42.6 35.7 - 48.1 fL [facility] NRBC abs 0.00 0.00 - 0.01 K/cumm [facility] Blood 04/01/2024 7:09 AM CDT 04/01/2024 8:02 AM CDT Jonathan Scruggs MD LAB BLOOD ORDERABLES Fi nal Result Performing Organization Address City/[facility]/ZIP Co de Phone Number [facility] [address] Department of [place] [place], [place] [phone] * Lipase - Add on lab test (03/31/2024 12:16 PM CDT) Pathologist [facility] Acceptable Yes Blood 03/31/2024 12:1 6 PM CDT 03/31/2024 12:16 PM CDT Narrative [facility] - 03/31/2024 12:16 PM CDT Name of Test->Lipase Jonathan Scruggs MD LAB BLOOD ORDERABLES Fi nal Result Performing Organization Address [facility]/ZIP Co de Phone Number [facility] [address] [place] [address] * Lipase (03/31/2024 6:56 AM CDT) Pathologist [facility] Lipase 21 10 - 99 Units/L Blood 03/31/2024 6:56 AM CDT 03/31/2024 7:25 AM CDT Jonathan Scruggs MD LAB BLOOD ORDERABLES Fi nal Result Performing Organization Address [facility] de Phone Number [facility] [address] Department [place] [address] * eGFR (03/31/2024 6:56 AM CDT) Pathologist [facility] eGFR >90 >=60 mL/min/1. 73 [...] AM CDT 03/31/2024 7:25 AM CDT Sravan Natalia Marsh DO LAB BLOOD ORDERABLES F inal Result [facility] [address] [place] [address] * (ABNORMAL) Differential, auto (03/31/2024 6:56 AM CDT) Neutrophil abs 3.8 1.5 - 6.5 K/cumm Imm gran abs 0.0 0.0 - 0.1 K/cumm [facility] Lymphocyte abs 4.8(H) 0.8 - 3.3 K/cumm [facility] Monocyte abs 0.9(H) 0.2 - 0.8 K/cumm [facility] Eosinophil abs 0.1 0.0 - 0.5 K/cumm [facility] Basophil abs 0.0 0.0 - 0.1 K/cumm [facility] Neutrophil pct 39.3 % [facility] Comment: Interpretive Data Percent cell count reference ranges are not reported, since discordance with absolute values may lead to misinterpretation of CBC data. Current Interpretive Data was last revised on 2017. Imm gran pct 0.2 % [facility] Comment: Interpretive Data Percent cell count reference ranges are not reported, since discordance with absolute values may lead to misinterpretation of CBC data. Current Interpretive Data was last revised on 2017. Lymphocyte pct 49.3 % [facility] Comment: Interpretive Data Percent cell count reference ranges are not reported, since discordance with absolute values may lead to misinterpretation of CBC data. Current Interpretive Data was last revised on 2017. Monocyte pct 9.5 % [facility] Comment: Interpretive Data Percent cell count reference ranges are not reported, since discordance with absolute values may lead to misinterpretation of CBC data. Current Interpretive Data was last revised on 2017. Eosinophil pct 1.3 % [facility] Comment: Interpretive Data Percent cell count reference ranges are not reported, since discordance with absolute values may lead to misinterpretation of CBC data. Current Interpretive Data was last revised on 2017. Basophil pct 0.4 % [facility] Comment: Interpretive Data Percent cell count reference ranges are not reported, since discordance with absolute values may lead to misinterpretation of CBC data. Current Interpretive Data was last revised on 2017. Blood 03/31/2024 6:56 AM CDT 03/31/2024 7:25 AM CDT Sravan Marsh DO LAB BLOOD ORDERABLES F inal Result [facility] [address] Department of Laboratories [place], [place] [id number] * CBC with auto differential (03/31/2024 6:56 AM CDT) WBC 9.7 3.8 - 9.9 K/cumm Hgb 12.2 11.9 - 15.5 g/dL [facility] Hct 35.6 35.6 - 45.5 % [facility] Plt 339 150 - 400 K/cumm [facility] MPV 10.4 9.1 - 12.3 fL [facility] RBC 4.19 3.90 - 5.20 M/cumm [facility] MCV 85.0 81.3 - 96.4 fL [facility] MCH 29.1 27.1 - 33.3 pg [facility] MCHC 34.3 32.3 - 35.7 g/dL [facility] RDW CV 13.2 11.1 - 14.9 % [facility] RDW SD 41.1 35.7 - 48.1 fL [facility] NRBC abs 0.00 0.00 - 0.01 K/cumm [facility] Blood 03/31/2024 6:56 AM CDT 03/31/2024 7:25 AM CDT Sravan Marsh DO LAB BLOOD ORDERABLES F inal Result Performing Organization Address City/[facility]/ZIP Co de Phone Number [facility] [address] [place] [address] * (ABNORMAL) Basic metabolic panel (03/31/2024 6:56 AM CDT) Sodium 137 135 - 145 mmol/L Potassium, pl 3.1(L) 3.3 - 4.9 mmol/L [facility] Chloride 103 97 - 110 mmol/L [facility] CO2 23 22 - 32 mmol/L [facility] Anion gap 11 2 - 15 mmol/L [facility] BUN 7 6 - 25 mg/dL [facility] Creatinine 0.76 0.60 - 1.10 mg/dL [facility] Glucose 80 70 - 199 mg/dL [facility] Comment: Interpretive Data Fasting glucose >/= 126 [...] 2022. Calcium 8.5 8.5 - 10.3 mg/dL [facility] Blood 03/31/2024 6:56 AM CDT 03/31/2024 7:25 AM CDT Sravan Marsh DO LAB BLOOD ORDERABLES F inal Result Performing Organization Address City/[facility]/ZIP Co de Phone Number [facility] [address] [place] [address] * POCT glucose (03/30/2024 11:07 PM CDT) [...] - DEVICE Final Result Performing Organization Address [facility] Co de Phone Number [facility] [address] [place] [address] * ECG 12 lead (03/30/2024 8:40 PM CDT) 03/30/2024 8:40 PM CDT Narrative [facility] - 03/31/2024 11:40 AM CDT Vent Rate: 57 bpm RR Interval: 1035 msec OR Interval: 101 msec QRS Duration: 82 msec QT Interval: 418 msec QTC Interval: 413 msec P-R-T [place]: 48 - 32 - 49 degrees IMPRESSION: SINUS BRADYCARDIA WITH SHORT OR INTERVAL BORDERLINE ECG Electronically Signed By: Yahir Miranda ??[facility] Card Luma Payne IT SECURITY ARCHITECT ECG ORDERABLES Fin al Result Performing Organization Address [facility] de Phone Number [facility] [employer] [facility] * eGFR (03/30/2024 8:08 PM CDT) eGFR [...] NP LAB BLOOD ORDERABLE S Final Result [facility] [address] [place] [address] * Basic metabolic panel (03/30/2024 8:08 PM CDT) Sodium 141 135 - 145 mmol/L Potassium, pl 3.8 3.3 - 4.9 mmol/L [facility] Chloride 105 97 - 110 mmol/L [facility] CO2 23 22 - 32 mmol/L [facility] Anion gap 13 2 - 15 mmol/L [facility] BUN 8 6 - 25 mg/dL [facility] Creatinine 0.73 0.60 - 1.10 mg/dL [facility] Glucose 96 70 - 199 mg/dL [facility] Comment: Interpretive Data Fasting glucose >/= 126 [...] 2022. Calcium 8.9 8.5 - 10.3 mg/dL [facility] Blood 03/30/2024 8:08 PM CDT 03/30/2024 8:21 PM CDT Luma Payne NP LAB BLOOD ORDERABLE S Final Result [facility] [address] Department [place] [address] * (ABNORMAL) Opiates Confirmation, Urine (03/30/2024 6:20 PM CDT) Codeine Conf, Ur Does Not Confirm CutOff 50 ng/mL Comment:Testing performed by : [facility], [address] [place] [address]., [id number] 6- Acetylmorphine Conf, Ur Does Not Confirm CutOff 10 ng/mL [facility] Comment:Testing performed by : [facility], [address] [place]., [address] Hydrocodone Conf, Ur Confirmed Positive(A) CutOff 50 ng/mL [facility] Comment:Testing performed by : [facility], [address] [place]., [address] Morphine Conf, Ur Does Not Confirm CutOff 50 ng/mL [facility] Comment:Testing performed by : [facility], [address] [place]., [address] Hydromorphone Conf, Ur Does Not Confirm CutOff 50 ng/mL [facility] Comment: Interpretive Data This test detects the [...] was last revised 2020. Testing performed by: [facility], [address] [facility], [place]., [address] Urine 03/30/2024 6:20 PM CDT 03/30/2024 8:38 PM CDT Noman GONZALEZ LAB URINE ORDERABLES Final Re sult Performing Organization Address [facility] Co de Phone Number [facility] [address] Department [place] [address] * (ABNORMAL) Urinalysis, microscopic only (03/30/2024 6:20 PM CDT) WBC, ur 0-5 0 - 5 /HPF RBC, ur 3-5(A) 0 - 2 /HPF [facility] Epithelial cells, squamous, ur 1-5 0 - 5 /HPF [facility] Bacteria, ur Trace(A) [facility] Mucous, ur Present(A) [facility] Culture Reflex Comment Reflex conditions for urine culture (WBC >10) not met. [facility] Urine, clean voided 03/30/2024 6:20 PM CDT 03/30/2024 6:31 PM CDT Noman GONZALEZ LAB URINE ORDERABLES Final Re sult Performing Organization Address [facility] Co de Phone Number [facility] [address] Department [place] [address] * (ABNORMAL) Drugs of Abuse Screen, Urine [...] 2023. Barbiturates, ur Not Detected CutOff 200ng/mL [facility] Comment: Interpretive Data - Barbiturates: ??Samples containing greater than 200 ng/mL secobarbital or other cross-reacting barbiturate compounds are reported as positive. ??False positive and false negative results are possible. Confirmatory testing required for definitive results. Current Interpretive Data was last reviewed 2023. Benzodiazepines, ur Not Detected CutOff 100ng/mL [facility] Comment: Interpretive Data - Benzodiazepines: ??Samples containing greater than 100 ng/mL nordiazepam or other cross-reacting compounds are reported as positive. False positive and false negative results are possible. Confirmatory testing required for definitive results. Current Interpretive Data was last reviewed 2023. Cannabinoids, ur Screen Positive, presumptive (A) CutOff 50 ng/mL [facility] Comment: Interpretive Data - Cannabinoids: ??Samples containing greater than 50 ng/mL delta-9 THC -COOH or other cross-reacting compounds are reported as positive. ??False positive and false negative results are possible. ??Confirmatory testing required for definitive results. Current Interpretive Data was last reviewed 2023. Cocaine, ur Not Detected CutOff 150ng/mL [facility] Comment: Interpretive Data - Cocaine: ??Samples containing greater than 150 ng/mL benzoylecgonine or other cross-reacting compounds are reported as positive. False positive and false negative results are possible. Confirmatory testing required for definitive results. Current Interpretive Data was last reviewed 2023. Fentanyl, Ur Not Detected CutOff 5 ng/mL [facility] Comment: Interpretive Data - Fentanyl: ?? Samples containing greater than 5 ng/mL norfentanyl, fentanyl, or other cross-reacting fentanyl compounds are reported as positive. False positive and false negative results are possible. Confirmatory testing required for definitive results. Current Interpretive Data was last reviewed 2023. Methadone, ur Not Detected CutOff 300ng/mL [facility] Comment: Interpretive Data - Methadone: ??Samples containing greater than 300 ng/mL d,l-methadone or other cross-reacting compounds are reported as positive. ??False positive and false negative results are possible. Confirmatory testing required for definitive results. Current Interpretive Data was last reviewed 2023. Opiates, ur Screen Positive, presumptive (A) CutOff 300ng/mL [facility] Comment: Interpretive Data - Opiates: ??Samples containing greater than 300 ng/mL morphine or other cross-reacting compounds are reported as positive. ??False positive and false negative results are possible. Confirmatory testing required for definitive results. Current Interpretive Data was last reviewed 2023. Oxycodone, ur Not Detected CutOff 100ng/mL [facility] Comment: Interpretive Data - Oxycodone: ??Samples containing greater than 100 ng/mL oxycodone or other cross-reacting compounds are reported as ??positive. ??False positive and false negative results are possible. Confirmatory testing required for definitive results. Current Interpretive Data was last reviewed 2023. Phencyclidine, ur Not Detected CutOff 25 ng/mL [facility] Comment: Interpretive Data - Phencyclidine: ??Samples containing greater than 25 ng/mL phencyclidine or other cross-reacting compounds are reported as positive. ??False positive and false negative results are possible. Confirmatory testing required for definitive results. Current Interpretive Data was last reviewed 2023. Urine Creatinine 53 mg/dL [facility] Comment: Interpretive Data Urine Creatinine: < 10 mg/dL is extremely dilute = or > 10 but < 20 mg/dL is dilute = or > 20 mg/dL is normal Current Interpretive Data was last revised on 2017. Urine 03/30/2024 6:20 PM CDT 03/30/2024 6:30 PM CDT Narrative [facility] - 03/30/2024 6:58 PM CDT Drug of Abuse screening is performed by immunoassay for medical purposes only. ??This is not to be used for Pain Management purposes. ??If Detected, confirmation testing will be performed for Amphetamines, Cocaine, Fentanyl, Methadone, Opiates, Oxycodone or Phencyclidine. Noman GONZALEZ LAB URINE ORDERABLES Final Re sult [facility] [address] Department [place] [address] * (ABNORMAL) Urinalysis reflex to microscopic and culture Urine, clean voided (03/30/2024 6:20 PM CDT) Color, ur Straw Yellow Clarity, ur Clear Clear [facility] Specific gravity, ur 1.013 1.003 - 1.030 [facility] pH, urine 6.5 [facility] Comment: Interpretive Data ? Urine pH is affected by diet, medications, systemic acid-base disturbances, and renal tubular function. ??pH may affect urinary stone formation. ??For example, urine pH below 6.0 may help reduce the tendency for calcium phosphate stones and pH greater than 6.0 may reduce the tendency for uric acid stone formation. Source: [facility] [place] [employer] Current Interpretive Data was last revised on 2017 Protein, ur ql Negative Negative [facility] Glucose, ur ql Negative Negative [facility] Ketones, ur 3+(A) Negative [facility] Bilirubin, ur Negative Negative [facility] Blood, ur 1+(A) Negative [facility] Urobilinogen, ur <2.0 <2.0 mg/dL [facility] Nitrite, ur Negative Negative [facility] Leukocyte esterase, ur Negative Negative [facility] UA reflex comment Reflex to microscopic UA will be performed. [facility] Urine, clean voided 03/30/2024 6:20 PM CDT 03/30/2024 6:22 PM CDT Noman GONZALEZ LAB MICROBIOLOGY - GENERAL OR DERABLES Final Result [facility] [address] [place] [address] * Troponin T high-sensitivity 2-hour (03/30/2024 6:00 PM CDT) Trop T hs 6 <=14 ng/L Comment: Interpretive Data For further hscTnT resources including the diagnostic algorithm and an aid in interpretation, copy and paste this link: https://nrl.testcatalog.org/show/hsTrop Current Interpretive Data last revised 2020. Trop T hs delta 0 ng/L [facility] Trop T hs interp Insignificant [facility] Blood 03/30/2024 6:00 PM CDT 03/30/2024 6:06 PM CDT us Diane Knox MD LAB BLOOD ORDERABLES Final Result Performing Organization Address City/State/[facility] Co de Phone Number [facility] [address] [place] [address] * eGFR (03/30/2024 3:40 PM CDT) eGFR [...] PM CDT 03/30/2024 4:03 PM CDT us Sravna Marsh DO LAB BLOOD ORDERABLES F inal Result [facility] [address] [place] [address] * (ABNORMAL) Differential, auto (03/30/2024 3:40 PM CDT) Neutrophil abs 9.8(H) 1.5 - 6.5 K/cumm Imm gran abs 0.1 0.0 - 0.1 K/cumm [facility] Lymphocyte abs 2.1 0.8 - 3.3 K/cumm [facility] Monocyte abs 0.8 0.2 - 0.8 K/cumm [facility] Eosinophil abs 0.0 0.0 - 0.5 K/cumm [facility] Basophil abs 0.1 0.0 - 0.1 K/cumm [facility] Neutrophil pct 76.6 % [facility] Comment: Interpretive Data Percent cell count reference ranges are not reported, since discordance with absolute values may lead to misinterpretation of CBC data. Current Interpretive Data was last revised on 2017. Imm gran pct 0.4 % [facility] Comment: Interpretive Data Percent cell count reference ranges are not reported, since discordance with absolute values may lead to misinterpretation of CBC data. Current Interpretive Data was last revised on 2017. Lymphocyte pct 16.3 % [facility] Comment: Interpretive Data Percent cell count reference ranges are not reported, since discordance with absolute values may lead to misinterpretation of CBC data. Current Interpretive Data was last revised on 2017. Monocyte pct 6.0 % [facility] Comment: Interpretive Data Percent cell count reference ranges are not reported, since discordance with absolute values may lead to misinterpretation of CBC data. Current Interpretive Data was last revised on 2017. Eosinophil pct 0.2 % [facility] Comment: Interpretive Data Percent cell count reference ranges are not reported, since discordance with absolute values may lead to misinterpretation of CBC data. Current Interpretive Data was last revised on 2017. Basophil pct 0.5 % [facility] Comment: Interpretive Data Percent cell count reference ranges are not reported, since discordance with absolute values may lead to misinterpretation of CBC data. Current Interpretive Data was last revised on 2017. Blood 03/30/2024 3:40 PM CDT 03/30/2024 4:03 PM CDT Sravancarolyn Rivasrahul LAB BLOOD ORDERABLES F inal Result Performing Organization Address [facility] Co de Phone Number [facility] [address] Department of [place] [employer] [place], [place] [id number] * Troponin T high-sensitivity series (baseline, 2hr, 4hr, 6hr) (03/30/2024 3:40 PM CDT) [facility] Trop T hs <6 <=14 ng/L Comment: Interpretive Data For further hscTnT resources including the diagnostic algorithm and an aid in interpretation, copy and paste this link: https://nrl.testcatalog.org/show/hsTrop Current Interpretive Data last revised 2020. Blood 03/30/2024 3:40 PM CDT 03/30/2024 4:03 PM CDT Sravan Marsh LAB BLOOD ORDERABLES F inal Result Performing Organization Address [facility] de Phone Number [facility] [address] Department [place] [address] * (ABNORMAL) Comprehensive metabolic panel (03/30/2024 3:40 PM CDT) [facility] Sodium 138 135 - 145 mmol/L Potassium, pl 3.2(L) 3.3 - 4.9 mmol/L [facility] Chloride 96(L) 97 - 110 mmol/L [facility] CO2 21(L) 22 - 32 mmol/L [facility] Anion gap 21(H) 2 - 15 mmol/L [facility] BUN 10 6 - 25 mg/dL [facility] Creatinine 0.82 0.60 - 1.10 mg/dL [facility] Glucose 103 70 - 199 mg/dL [facility] Comment: Interpretive Data Fasting glucose >/= 126 [...] 2022. Calcium 9.5 8.5 - 10.3 mg/dL [facility] Bilirubin, total 0.4 0.1 - 1.2 mg/dL [facility] Protein, pl 8.5 6.5 - 8.5 g/dL [facility] Albumin 4.7 3.5 - 5.0 g/dL [facility] Alk phos 98 40 - 130 Units/L [facility] ALT 39 7 - 45 Units/L [facility] AST 32 10 - 45 Units/L [facility] Blood 03/30/2024 3:40 PM CDT 03/30/2024 4:03 PM CDT us Sravan Marsh DO LAB BLOOD ORDERABLES F inal Result [facility] [address] [place] [address] * (ABNORMAL) CBC with auto differential (03/30/2024 3:40 PM CDT) WBC 12.7(H) 3.8 - 9.9 K/cumm Hgb 14.7 11.9 - 15.5 g/dL [facility] Hct 43.4 35.6 - 45.5 % [facility] Plt 462(H) 150 - 400 K/cumm [facility] MPV 10.3 9.1 - 12.3 fL [facility] RBC 5.08 3.90 - 5.20 M/cumm [facility] MCV 85.4 81.3 - 96.4 fL [facility] MCH 28.9 27.1 - 33.3 pg [facility] MCHC 33.9 32.3 - 35.7 g/dL [facility] RDW CV 13.3 11.1 - 14.9 % [facility] RDW SD 41.2 35.7 - 48.1 fL [facility] NRBC abs 0.00 0.00 - 0.01 K/cumm [facility] Blood (Blood, Venous) 03/30/2024 3:40 PM CDT 03/30/2024 4:03 PM CDT Sravan Marsh DO LAB BLOOD ORDERABLES F inal Result [facility] [address] [place] [address] * XR Chest PA Lateral 2 Views [...] PM CDT) 03/30/2024 3:11 PM CDT Narrative [facility] - 03/31/2024 11:40 AM CDT Vent Rate: 62 bpm RR Interval: 955 msec OR Interval: 101 msec QRS Duration: 86 msec QT Interval: 430 msec QTC Interval: 436 msec P-R-T [place]: 47 - 24 - 56 degrees IMPRESSION: SINUS RHYTHM WITH SHORT OR INTERVAL POSSIBLE RIGHT VENTRICULAR CONDUCTION DELAY BORDERLINE ECG Electronically Signed By: Yahir Miranda ??[facility] Card us Sravan Marsh DO ECG ORDERABLES Final Result [facility] documented in this encounter Visit Diagnoses Diagnosis [...] intravenous, Continuous, Starting on Mon04/07/24 at 0915 New Bag 04/09/2024 12:22 AM [...] 04/06/2024 6:00 PM CDT 75 mL/hr 75 mL/h r sodium chloride 0.45% with potassium chloride 20 [...] 10:05 AM CDT 100 mL/hr 100 mL/hr Bag 03/30/2024 11:50 PM CDT 100 mL/hr [...] Nightly PRN, sleep, Starting on 03/30/24 at 2254 Given 04/03/2024 7:42 PM CDT [...] Sleep-Onset Insomnia 2000 (Given - Provider: Hazel Stuart, RUBÉN) 2053 (Given - Provider: Kayley Antonio, RUBÉN) sincalide (KINEVAC) injection 0.6 mcg (COMPLETED) 0.6 mcg (rounded from 0.583 mcg = 0.01 mcg/kg ? 58.3 kg), intravenous, Administer over 5 Minutes, Once, On 04/08/24 at 0945, For 1 dose 0901 (New Bag - Provider: Sumit Martinez, ) sincalide (KINEVAC) injection 1.2 mcg (COMPLETED) 1.2 mcg (rounded from 1.166 mcg = 0.02 mcg/kg ? 58.3 kg), intravenous, Administer over 60 Minutes, Once, On Mon04/08/24 at 1115, For 1 dose 1036 (New Bag - Provider: Sumit Martinez, ) sodium chloride 0.9% flush 5-10 mL 5-10 mL, intra-catheter, Every 12 hours scheduled, First dose on Nicole 04/04/24 at 1415, Flush volume based on line type, size, and protocol. 0900 (Not Given - Provider: Dannielle Amanda RN - Reason: IV Infusing)2005 (Given - Provider: Hazel Stuart, RUBÉN) 821 (Given - Provider: Amber Martinez, RUBÉN)2055 (Given - Provider: Kayley Antonio RN) 101 (Canceled Entry - Provider: Ambercurry Martinez RN) sodium chloride 0.9% flush 5-10 [...] Hazel Stuart RN)0911 (Stopped - Provider: Dannielle Amanda, RUBÉN) PRN Medication Order 04/07/2024 04/08/2024 04/09/2024 benzocaine-menthoL [...] 2 mg/minute. 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
--- OUTSIDE RECORDS SUMMARY | 2024-07-30 16:06 | XMS_ITS | Encounter Summary ---
Author Organization [facility] Healthcare Address [address] [place] [address] Care Team Providers Care Pickling Drum Operator Name Role Phone Omega Khanna MD, Maurice Parks Primary Care Provider Reason for Visit * Reason Comments Rapid Heart Rate Encounter Details Date Type Department Care Team (Late st Contact Info) Description 05/27/2024 6:28 AM CDT - 05/27/2024 8:[address] [facility] Emergency Department [address] [place] [address] Nicol Chaudhari MD [address] [place] [address] SVT (supraventricular tachycardia) (HCC) (Primary [...] How often do you attend chur or episcopalian services? Never 04/05/2024 Do you belong to any clubs o r organizations such as jehovah's witness groups, unions, fraternal or athletic groups, or [...] any time in the past 12 m [facility], were you homeless or living in a intermediate (including now)? No 04/05/2024 Personal Safety Answer [...] for a week. Surinder Vanegas is a internal grinder you can follow up with. Please call [...] the process of transitioning to a new internal grinder. Patient denies any recent lifestyle changes. She [...] partial remission, most recent episode mixed (CMS/HCC) ([facility]) 03/11/2024 PSVT (paroxysmal supraventricular tachycardia) ([facility]) 03/11/2024 Mixed hyperlipidemia 03/11/2024 Vaginal vestibulitis 03/11/2024 Generalized anxiety disorder 07/07/2021 Bipolar disorder ([facility]) 07/07/2021 Insomnia 07/07/2021 Hip pain, chronic 03/31/2017 Gastroesophageal reflux disease 06/22/2016 Allergic rhinitis due to pollen 12/08/2015 Vitamin D deficiency disease 08/26/2015 Past Medical History: Diagnosis Date Allergic rhinitis due to pollen 12/08/2015 Anxiety Bipolar disorder ([facility]) 07/07/2021 Bipolar disorder, in partial remission, most recent episode mixed (CMS/HCC) ([facility]) 03/11/2024 Chest pain 03/29/2024 Depression Gastroesophageal reflux disease 06/22/2016 Generalized anxiety disorder 07/07/2021 GERD (gastroesophageal reflux disease) Hip pain, chronic 03/31/2017 Insomnia 07/07/2021 Intractable nausea and vomiting 03/30/2024 Intractable vomiting 03/31/2024 Mixed hyperlipidemia 03/11/2024 On total parenteral nutrition 04/09/2024 PSVT (paroxysmal supraventricular tachycardia) ([facility]) 03/11/2024 Vaginal vestibulitis Vitamin D deficiency disease [...] By: Nicol Chaudhari MD SVT (supraventricular tachycardia) ([facility]) ATTENDING ATTESTATION Nicol Chaudhari MD 05/27/24 1418 [...] AM CDT) 05/27/2024 6:58 AM CDT Narrative [facility] - 05/27/2024 10:17 AM CDT Vent Rate: 97 bpm RR Interval: 617 msec TX Interval: 129 msec QRS Duration: 76 msec QT Interval: 331 msec QTC Interval: 385 msec P-R-T Eagle: 53 - 36 - 41 degrees IMPRESSION: SINUS RHYTHM POSSIBLE LEFT ATRIAL ENLARGEMENT POSSIBLE RIGHT VENTRICULAR CONDUCTION DELAY MODERATE ST DEPRESSION ABNORMAL ECG Electronically Signed By: Zacarias Joseph MD, [facility] us Nicol Chaudhari MD ECG ORDERABLES Final Resu lt [facility] * (ABNORMAL) Manual Differential (05/27/2024 6:56 AM CDT) Differential Manual Cells Counted [address] [facility] Neutrophil abs 10.1(H) 1.5 - 6.5 K/cumm [facility] Lymphocyte abs 4.2(H) 0.8 - 3.3 K/cumm [facility] Monocyte abs 1.5(H) 0.2 - 0.8 K/cumm [facility] Eosinophil abs 0.5 0.0 - 0.5 K/cumm [facility] Neutrophil pct 62.0 % [facility] Comment: Differenial performed on albumin smear. Interpretive Data Percent cell count reference ranges are not reported, since discordance with absolute values may lead to misinterpretation of CBC data. Current Interpretive Data was last revised on 2017. Lymphocyte pct 26.0 % [facility] Comment: Interpretive Data Percent cell count reference ranges are not reported, since discordance with absolute values may lead to misinterpretation of CBC data. Current Interpretive Data was last revised on 2017. Monocyte pct 9.0 % [facility] Comment: Interpretive Data Percent cell count reference ranges are not reported, since discordance with absolute values may lead to misinterpretation of CBC data. Current Interpretive Data was last revised on 2017. Eosinophil pct 3.0 % [facility] Comment: Interpretive Data Percent cell count reference ranges are not reported, since discordance with absolute values may lead to misinterpretation of CBC data. Current Interpretive Data was last revised on 2017. RBC morphology Normal [facility] Platelet morphology Normal [facility] Blood 05/27/2024 6:56 AM CDT 05/27/2024 7:21 AM CDT us Nicol Chaudhari MD LAB BLOOD ORDERABLES Final Result [facility] [address] Department [place] [address] * (ABNORMAL) Comprehensive metabolic panel (05/27/2024 6:56 AM CDT) Sodium 135 135 - 145 mmol/L Potassium, pl 3.2(L) 3.3 - 4.9 mmol/L [facility] Chloride 101 97 - 110 mmol/L [facility] CO2 21(L) 22 - 32 mmol/L [facility] Anion gap 13 2 - 15 mmol/L [facility] BUN 11 6 - 25 mg/dL [facility] Creatinine 0.72 0.60 - 1.10 mg/dL [facility] Glucose 92 70 - 199 mg/dL [facility] Comment: Interpretive Data Fasting glucose >/= 126 [...] 2022. Calcium 9.0 8.5 - 10.3 mg/dL [facility] Bilirubin, total 0.3 0.1 - 1.2 mg/dL [facility] Protein, pl 7.4 6.5 - 8.5 g/dL [facility] Albumin 4.1 3.5 - 5.0 g/dL [facility] Alk phos 84 40 - 130 Units/L [facility] ALT 19 7 - 45 Units/L [facility] AST 22 10 - 45 Units/L [facility] Blood 05/27/2024 6:56 AM CDT 05/27/2024 6:56 AM CDT us Nicol Chaudhari MD LAB BLOOD ORDERABLES Final Result [facility] [address] Department [place] [address] * eGFR (05/27/2024 6:56 AM CDT) eGFR [...] MD LAB BLOOD ORDERABLES Final Result [facility] [address] Department [place] [address] * Phosphorus (05/27/2024 6:56 AM CDT) Pathologist [facility] Phosphorus, pl 2.4 2.3 - 4.5 mg/dL Blood 05/27/2024 6:56 AM CDT 05/27/2024 7:21 AM CDT Nicol Chaudhari MD LAB BLOOD ORDERABLES Final Result Performing Organization Address City/[facility]/ZIP Co de Phone Number [facility] [address] [facility] [place] [address] * Magnesium (05/27/2024 6:56 AM CDT) [facility] Magnesium 2.0 1.4 - 2.5 mg/dL Blood 05/27/2024 6:56 AM CDT 05/27/2024 7:21 AM CDT Nicol Chaudhari MD LAB BLOOD ORDERABLES Final Result Performing Organization Address [facility] Co de Phone Number [facility] [address] [place] [address] * Thyroid Function Carroll (05/27/2024 6:56 AM CDT) [facility] TSH 3.78 0.30 - 4.20 mcIUnit/mL Blood 05/27/2024 6:56 AM CDT 05/27/2024 7:21 AM CDT Nicol Chaudhari MD LAB BLOOD ORDERABLES Final Result Performing Organization Address City/[facility] Co de Phone Number [facility] [address] [place] [address] * (ABNORMAL) CBC with auto differential (05/27/2024 6:56 AM CDT) [facility] WBC 16.3(H) 3.8 - 9.9 K/cumm Hgb 12.9 11.9 - 15.5 g/dL [facility] Hct 38.3 35.6 - 45.5 % [facility] Plt 432(H) 150 - 400 K/cumm [facility] MPV 10.6 9.1 - 12.3 fL [facility] RBC 4.28 3.90 - 5.20 M/cumm [facility] MCV 89.5 81.3 - 96.4 fL [facility] MCH 30.1 27.1 - 33.3 pg [facility] MCHC 33.7 32.3 - 35.7 g/dL [facility] RDW CV 14.8 11.1 - 14.9 % [facility] RDW SD 47.9 35.7 - 48.1 fL [facility] NRBC abs 0.03(H) 0.00 - 0.01 K/cumm [facility] Blood (Blood, Venous) 05/27/2024 6:56 AM CDT 05/27/2024 7:21 AM CDT Nicol Chaudhari MD LAB BLOOD ORDERABLES Final Result Performing Organization Address [facility] Co de Phone Number [facility] [address] Department [place] [address] * ECG 12 lead (05/27/2024 6:31 AM CDT) 05/27/2024 6:31 AM CDT Narrative [facility] - 05/27/2024 10:17 AM CDT Vent Rate: 192 bpm RR Interval: 311 msec TX Interval: 0 msec QRS Duration: 187 msec QT Interval: 236 msec QTC Interval: 334 msec P-R-T Eagle: 0 - 53 - 0 degrees IMPRESSION: SVT marked anterior lateral st depression consistent with ischemia Electronically Signed By: Zacarias Joseph MD, [facility] us Nicol Chaudhari MD ECG ORDERABLES Final Resu lt Performing Organization Address [facility]/ZIP Co de Phone Number [facility] documented in this encounter Visit [...] 05/27/2024 documented in this encounter Care Teams Pickling Drum Operator Relationship Specialty Start Date End Date Maurice Duff Jr., MD [address] [address] PCP - General Family Medicine 03/11/24 documented as of this encounter
--- OUTSIDE RECORDS SUMMARY | 2024-07-30 16:07 | XMS_ITS | Encounter Summary ---
Author Organization [facility] Healthcare Address [address] [place] [address] Care Team Providers Care Quality Worker Name Role Phone Gwen, Gary Primary Care Provider [phone] Reason for Referral * Diagnostic Imaging (Routine) - Closed Specialty Diagnoses / Procedures Referred By María Elena t Referred To Contact Diagnoses Breast cancer screening by mammogram Family history of breast cancer in mother Procedures Screening Mammogram Bilateral W Aura Jha MD Phone: tel: fax: [facility] [place] [place] [address] Referral ID Status Reason Start Date Expiration Date Visits Re quested Visits Authorized [id number] Closed 11/08/2023 12/07/2024 1 1 Reason for Visit * Diagnostic Imaging (Routine) - Closed Specialty Diagnoses / Procedures Referred By María Elena rand Referred To Contact Diagnoses Breast cancer screening by mammogram Family history of breast cancer in mother Procedures Screening Mammogram Bilateral W Aura Jha MD Phone: tel: fax: [id number] [place] [address] Referral ID Status Reason Start Date Expiration Date Visits Re quested Visits Authorized [id number] Closed 11/08/2023 12/07/2024 1 1 Encounter Details Date Type Department Care Team (Latest Contact Info) Description 01/12/2024 8:10 AM CDT - 01/12/2024 11:59 PM CDT Hospital Encounter [facility] at [address] [address] Breast cancer screening by mammogram; Family history [...] breast documented in this encounter Care Teams Quality Worker Relationship Specialty Start Date End Date Avery Hidalgo DO PCP - General 03/02/20 03/10/24 documented as of this encounter
--- OUTSIDE RECORDS SUMMARY | 2024-07-30 16:07 | XMS_ITS | Encounter Summary ---
Author Organization [facility] Healthcare Address [address] [place] [address] Care Team Providers Care Certified Nursing Assistant Instructor Name Role Phone Avery Hidalgo Primary Care Provider [phone] Reason for Referral * Procedure (Routine) - Authorized Specialty Diagnoses / Procedures Referred By Contac t Referred To Contact Diagnoses Encounter for biopsy HPV (human papilloma virus) infection Procedures Colposcopy Aura Bryan MD Phone: tel: fax: [facility] Referral ID Status Reason Start Date Expiration Date V isits Requested Visits Authorized [id number] Authorized 11/27/2023 12/26/2024 1 1 Reason for Visit * Reason Comments Colposcopy Encounter Details Date Type Department Care Team (Latest Contact Info) Description 11/27/2023 10:30 AM CDT Procedure visit [facility] Medical [facility] [address] [facility] [address] [place] [phone] Aura Bryan MD [address] [address] Encounter for biopsy (Primary Dx); [...] draped in the dorsal lithotomy position: yes Rillton speculum was placed in the vagina: yes [...] 11/27/2023 10:59 AM CDT Encounter for biopsy OK COLPOSCOPY CERVIX ENDOCERVICAL CURETTAGE Routine 11/27/2023 10:30 AM CDT 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 Kisha Parks MD - Project Management Specialist Note to Patients: This report may contain [...] ??ÁNGELA IBRAHIM Address: ??[address] [place] ??[address] Gender: ??F : ??1985 (Age: 38) Service: ?? Location: ??, ?? Hospital #: ??[id number] Patient Type: ??[facility] SPECIMEN Accession #: ? [id number] Taken: ? 11/27/2023 Received ? 11/28/2023 Reported: ? 11/29/2023 Physician(s): ? Aura Bryan MD DIAGNOSIS: Uterus, endocervix, curettage: ? - No endocervical epithelium demonstrated ? - Scant superficial squamous epithelium [facility]/11/29/2023 16:02 Examining Pathologist: Ranjith Srivastava M.D. Report Reviewed and Electronically Signed By ??Rnajith Srivastava M.D. SPECIMEN TYPE: A: ENDOCERVICAL CURETTAGE [...] levels are reviewed. Clerical Data Follows A; [id number] REPORT IMAGES AND/OR SCANNED DOCUMENTS ONLY VIEWABLE IN PDF FORMAT The immunohistochemical test(s) cited in this report, if any, was developed and its performance characteristics determined by [facility] Pathology Department. ??It has not been cleared or approved by the U.S. Food and Drug Administration. ??The FDA has determined that such clearance or approval is not necessary. ??This test is used for clinical purposes. ??It should not be regarded as investigational or for research. ??[facility] Laboratory is certified under the Clinical [...] LAB PATHOLOGY ORDERABLES F inal Result PATHOLOGY [facility] Laboratory Receiving [address] [place] [address] * POCT hCG, urine (11/27/2023 10:59 AM CDT) HCG, ur, POC Negative Negative Lot Number [id number] QC Backgroud Clear Acceptable QC Control Line Acceptable Urine 11/27/2023 10:5 9 AM CDT Aura Bryan MD POINT OF CARE TEST ORDERAB LES Final Result * OK COLPOSCOPY CERVIX ENDOCERVICAL CURETTAGE (11/27/2023 10:30 AM [...] draped in the dorsal lithotomy position: yes ?Rillton speculum was placed in the vagina: yes [...] 04/09/2024 added in this encounter Care Teams Certified Nursing Assistant Instructor Relationship Specialty Start Date End Date Avery Hidalgo DO PCP - General 03/02/20 03/10/24 documented as of this encounter
--- OUTSIDE RECORDS SUMMARY | 2024-07-30 16:07 | XMS_ITS | Encounter Summary ---
Author Organization [facility] Healthcare Address [address] [place] [address] Care Team Providers Care Strategic Sourcing Consultant Name Role Phone Avery Hidalgo DO Primary Care Provider [phone] Encounter Details Date Type Department Care Team (Late st Contact Info) Description 09/12/2023 Orders Only [facility] Healthcare Occupatiuonal Health [address] [facility] Room [address] (Third Floor) [place] [address] Paulo Nguyen MD [address] [place], [place] [id number] Pre-employment health screening examination (Primary Dx) Social [...] Results * T-SPOT.TB Blood (09/12/2023 3:16 PM PUBLIC HEALTH ADVISOR) [facility] T-SPOT.TB Negative Mik [facility] Comment: Normal Value: Negative A [...] test. T-SPOT.TB Panel A Spot Count 2 [facility] T-SPOT.TB Panel B Spot Count 2 [facility] T-SPOT.TB Negative Control Passed [facility] T-SPOT.TB Positive Control Passed [facility] Comment: Test Performed at: [facility] [employer] [place], [place] ??[phone] ? PRIETO MARSHALL,PHD Blood 09/12/2023 3:1 6 PM PUBLIC HEALTH ADVISOR 09/12/2023 5:10 PM PUBLIC HEALTH ADVISOR Narrative [facility] - 09/14/2023 1:53 PM PUBLIC HEALTH ADVISOR Patient is employed by/enrolled at:->[facility] Paulo Nguyen MD LAB MICROBIOLOGY - GENERAL OR DERABLES Final Result [facility] [address] [facility] Department [place] [address] documented in this encounter Visit Diagnoses Diagnosis Pre-employment health screening examination- Primary Health examination of defined subpopulation Pre-employment health screening examination Health examination of defined subpopulation documented in this encounter Care Teams Strategic Sourcing Consultant Relationship Specialty Start Date End Date Avery Hidalgo DO PCP - General 03/02/20 03/10/24 documented as of this encounter
--- OUTSIDE RECORDS SUMMARY | 2024-07-30 16:07 | XMS_ITS | Encounter Summary ---
Author Organization [facility] Healthcare Address [address] [place] [address] Care Team Providers Care Travel Nurse Name Role Phone Unavailable Primary Care Provider Unavailabl e Reason for Visit * Reason Onset Date Comments COVID-19 EVALUATION 02/25/2020 Encounter Details Date Type Department Care Team (Late st Contact Info) Description 02/25/2020 Telephone [facility] Healthcare Occupatiuocount includes the [facility] Health [address] [place] [address] Room 3420 (Third Floor) [place] [address] Marcia Tejeda DNP [address] [facility] [address] [place] [address] COVID-19 EVALUATION Social History Tobacco Use Types [...] PM CDT Employee COVID-19 Screening 02/25/2020 Email: [email or web address] Employee ID# [id number] Employer: [employer] 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 No Department: RN - Emergency Ux Visual Designer/Ingot Weigher name and email address: Katerina Cami Guerra, [...] Stay home and test Testing Site Location: [facility] Script A (Stay home and test) Given your symptoms, you should not come to work and will be referred for testing. ?? Please go to the employee testing site at ___[facility] ; depending on which [...] Occupational Health will notify you and your search engine optimization manager when you can return to work. [...] Coronavirus RNA Nasopharyngeal (02/25/2020 3:04 PM CDT) [facility] Signature COVID-19 RNA Detected( A) [facility] Comment: Interpretive Data Testing performed at [facility]. The 2018-Novel Coronavirus [...] last revised on 2019. Testing performed by: [facility], [address] [place]., [address] Nasopharyngeal 02/25/2020 3: 04 PM CDT 02/25/2020 7:53 PM CDT Narrative [facility] - 02/26/2020 3:43 AM CDT Patient is employed by:->[facility] Is the patient experiencing any symptoms consistent with COVID (eg. Fever, cough, shortness of breath)?->Yes What is the reason for testing?->Symptoms compatible with COVID-19 in high-risk group (defined above in process inst.) us Susana Valentine MD LAB MICROBIOLOGY - GENERAL ORDERABLES Final Result [facility] [address] Department [place] [address] documented in this encounter Visit Diagnoses Diagnosis Cough- Primary Fever, unspecified fever cause documented in this encounter Additional Health Concerns Infection Onset Date Last Indicated Resolved Time COVID: Suspected 02/25/2020 02/25/2020 02/26/2020 3:43 AM CDT documented as of this encounter
--- OUTSIDE RECORDS SUMMARY | 2024-07-30 16:07 | XMS_ITS | Encounter Summary ---
Author Organization [facility] Healthcare Address [address] [place] [address] Care Team Providers Care Woodyard Crane Operator Name Role Phone Avery Hidalgo Primary Care Provider [phone] Reason for Referral * Diagnostic Imaging (Routine) - Closed Specialty Diagnoses / Procedures Referred By Contac t Referred To Contact Diagnoses Breast cancer screening by mammogram Family history of breast cancer in mother Procedures Screening Mammogram Bilateral W Agusto Jha MD Phone: tel: fax: [facility] [address] [place] [address] Referral ID Status Reason Start Date Expiration Date Visits Re quested Visits Authorized [id number] Closed 11/08/2023 12/07/2024 1 1 Reason for Visit * Reason Comments Gynecologic Exam Encounter Details Date Type Department Care Team (Latest Contact Info) Description 11/08/2023 1:00 PM CDT Office Visit [facility] Medical Group Women's Healthcare [address] [facility] [address] [place] [phone] Agusto Bryan MD [address] [address] Well woman exam with routine [...] Not Detected Not Detected [facility] HPV HR Non 16/18 Not Detected Not Detected [facility] Comment: Interpretive Data Nucleic acid amplification for [...] this test have been verified by the [facility] Laboratory. Correlate with separately reported cytology results, as applicable. Interpretive data last revised 23 Endocervical 11/08/2023 2:02 PM CDT 11/08/2023 7:53 PM CDT Narrative [facility] - 11/10/2023 9:27 PM CDT Clinical history and diagnosis->screening Testing type->Screening Last menstrual period (date if known)->unknown Agusto Bryan MD LAB BODY FLUIDS AND STOOLS ORDERABLES Final Result [facility] [address] Department [place] [address] * Pap and High Risk HPV and Genotyping (Cytology Component) (11/08/2023 2:02 PM CDT) Thin prep (Pap test) 11/08/2023 2:02 PM CDT 11/09/2023 11:25 AM CDT Narrative PATHOLOGY [facility] - 11/15/2023 1:19 PM CDT EPIC results best viewed via link to PDF [address] ??[address] Tele: ?? Kisha Parks MD - Digital Producer CYTOLOGY REPORT Note to Patients: This report [...] the details. Patient Name: ??CATA IBRAHIM Address: ??[address] [place] [address] ??[id number] Gender: ??F : ??1985 (Age: 38) Service: ?? Location: ?? Hospital #: ??[id number] Patient Type: ??[facility] SPECIMEN Taken: ??11/08/2023 Reported: ??11/15/2023 Physician(s): ? Agusto Bryan MD FINAL DIAGNOSIS: SOURCE OF SPECIMEN ?- ThinPrep Pap and HPV w/ reflex Genotyping: STATEMENT OF ADEQUACY Source: ??Cervical/Endocervical ?- Satisfactory for interpretation ?- Endocervical/Transformation zone component absent or insufficient ?- Case screened using computer assisted imaging technology and manually re-screened by a hand decorator. ? GENERAL CATEGORIZATION: ?- Negative for intraepithelial [...] has been rescreened in accordance with the [facility] Laboratory Quality Management Program. REPORT IMAGES [...] LAB CYTOLOGY ORDERABLES Fi nal Result PATHOLOGY [facility] Laboratory Receiving [address] [place] [address] documented in this encounter Visit Diagnoses Diagnosis [...] 4 added in this encounter Care Teams Woodyard Crane Operator Relationship Specialty Start Date End Date Avery Hidalgo DO PCP - General 03/02/20 03/10/24 documented as of this encounter
--- OUTSIDE RECORDS SUMMARY | 2024-07-30 16:07 | XMS_ITS | Encounter Summary ---
Author Organization [facility] Healthcare Address [address] [place] [address] Care Team Providers Care Transportation Sales Consultant Name Role Phone Omega Khanna MD, Maurice Parks Primary Care Provider Reason for Visit * Reason Onset Date Comments Chest Pain 03/28/2024 Encounter Details Date Type Department Care Team (Late st Contact Info) Description 03/28/2024 Nurse Triage [facility] [place] [address] [address] Maurice Duff Jr., MD [facility] [address] Social History Tobacco Use Types [...] Disposition SEVERE chest pain Protocols used: Chest [id number] * Telephone Encounter - Agnes Menendez RN [...] on filedocumented in this encounter Care Teams Transportation Sales Consultant Relationship Specialty Start Date End Date Maurice Duff Jr., MD [address] [place] [address] PCP - General Family Medicine 03/11/24 documented as of this encounter
--- OUTSIDE RECORDS SUMMARY | 2024-07-30 16:07 | XMS_ITS | Encounter Summary ---
Author Organization [facility] Healthcare Address [address] [place] [address] Care Team Providers Care Cookee Name Role Phone Omega Khanna MD, Maurice Parks Primary Care Provider Reason for Visit * Reason Comments New Patient Encounter Details Date Type Department Care Team (Latest Contact Info) Description 03/11/2024 9:30 AM CDT Office Visit [facility] [place] [address] [address] Maurice Duff Jr., MD [address] [address] Gastroesophageal reflux disease without esophagitis (Primary Dx); Bipolar disorder, in partial remission, most recent episode mixed (CMS/HCC) (HCC); PSVT (paroxysmal supraventricular tachycardia) ([facility]); Mixed hyperlipidemia; Vaginal vestibulitis Social History Tobacco [...] 1.42 ) Wt 62.1 kg (137 lb) ZiY123% BMI 25.54 kg/m?? Body mass index is [...] bedtime. 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 She will call if she has continuing problems Bipolar disorder, in partial remission, most recent episode mixed (CMS/HCC) ([facility]) Assessment & Plan: Stable with Klonopin, Abilify, trazodone. Follow with psychiatrist PSVT (paroxysmal supraventricular tachycardia) ([facility]) Assessment & Plan: Stable with verapamil Mixed [...] CDT Associated Problem(s): PSVT (paroxysmal supraventricular tachycardia) ([facility]) Stable with verapamil * Assessment & Plan Note - Maurice [...] bedtime. 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
--- OUTSIDE RECORDS SUMMARY | 2024-07-30 16:07 | XMS_ITS | Encounter Summary ---
Author Organization [facility] Healthcare Address [address] [place] [address] Care Team Providers Care Technician Plant And Maintenance Name Role Phone Avery Hidalgo DO Primary Care Provider [phone] Reason for Visit * Reason Comments Abdominal Pain Black or Bloody Stool Encounter Details Date Type Department Care Team (Late st Contact Info) Description 10/18/2023 5:17 PM DATA POWER CONSULTANT - 10/18/2023 8:48 PM DATA POWER CONSULTANT Emergency [facility] Emergency Department [address] [place] [address] Carlos Prescott MD [address] [place] [address] Diverticulosis (Primary Dx) Discharge Disposition: [...] Comments Blood Pressure 130/90 10/18/2023 8:45 PM DATA POWER CONSULTANT Pulse 82 10/18/2023 8:45 PM DATA POWER CONSULTANT Temperature 36.7 ??C (98 ??F) 10/18/2023 3:34 PM DATA POWER CONSULTANT Respiratory Rate 15 10/18/2023 8:45 PM DATA POWER CONSULTANT Oxygen Saturation 97% 10/18/2023 8:45 PM DATA POWER CONSULTANT Inhaled Oxygen Concentration - - Weight 63.5 kg (140 lb) 10/18/2023 3:31 PM DATA POWER CONSULTANT Height 154.9 cm (5' 1 ) 10/18/2023 3:31 PM DATA POWER CONSULTANT Body Mass Index 26.45 10/18/2023 3:31 PM DATA POWER CONSULTANT documented in this encounter Discharge Instructions * Attachments The following attachments cannot be sent through Care Everywhere. * Diverticulosis (Irish) documented in this encounter Medications at [...] smoldering diverticulitis. 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 Discharged home stable condition. Amount and/or Complexity of Data Reviewed Radiology: ordered and independent interpretation performed. Risk Prescription drug management. Final diagnoses: Diverticulosis Carlos Prescott MD 10/18/23 2303 POWER CONSULTANT * Patricia Garcia RN - 10/18/2023 3:28 PM CST Patient arrives to ER with complaints of left sided abdominal pain starting 4 days ago. Patient notes dark red stools x2 starting today. Denies blood thinners. Denies lightheadedness/dizziness. POWER CONSULTANT documented in this encounter Plan of Treatment Not on file documented as of this encounter Procedures Procedure Name Priority Date/Time Associated Diagnosis Comments CT ABDOMEN PELVIS W CONTRAST ED 10/18/2023 7:48 PM DATA POWER CONSULTANT URINALYSIS AND REFLEX TO MICROSCOPIC AND CULTURE STAT 10/18/2023 5:53 PM DATA POWER CONSULTANT URINALYSIS, MICROSCOPIC ONLY STAT 10/18/2023 5:53 PM DATA POWER CONSULTANT POCT HCG, URINE Routine 10/18/2023 5:44 PM DATA POWER CONSULTANT EGFR STAT 10/18/2023 3:59 PM DATA POWER CONSULTANT DIFFERENTIAL AUTO STAT 10/18/2023 3:5 9 PM DATA POWER CONSULTANT CBC WITH AUTO DIFFERENTIAL STAT 10/18/2023 3:59 PM DATA POWER CONSULTANT LIPASE STAT 10/18/2023 3:59 PM DATA POWER CONSULTANT COMPREHENSIVE METABOLIC PANEL STAT 10/18/2023 3:59 PM DATA POWER CONSULTANT documented in this encounter Results * CT Abdomen Pelvis W Contrast (10/18/2023 7:48 PM DATA POWER CONSULTANT) Anatomical Region Laterality Modality Body N/A Computed Tomogra phy 10/18/2023 7:36 PM DATA POWER CONSULTANT Impressions 10/19/2023 6:26 AM DATA POWER CONSULTANT 1. ??Mild bladder wall thickening may indicate bladder infection. Clinical and lab correlation recommended. 2. ??Diverticulosis but no diverticulitis. 3. ??Additional details are above.. Electronically signed by: Fan Goldberg M.D. Narrative 10/19/2023 6:[address] abdomen and pelvis with contrast HISTORY: [...] (ABNORMAL) Urinalysis, microscopic only (10/18/2023 5:53 PM DATA POWER CONSULTANT) WBC, ur 0-5 0 - 5 /HPF RBC, ur 0-2 0 - 2 /HPF [facility] Epithelial cells, squamous, ur 1-5 0 - 5 /HPF [facility] Mucous, ur Present(A) [facility] Culture Reflex Comment Reflex conditions for urine culture (WBC >10) not met. [facility] Urine 10/18/2023 5:53 PM DATA POWER CONSULTANT 10/18/2023 5:57 PM DATA POWER CONSULTANT Ravi Isaac DO LAB URINE ORDERABLES Amanda pierce Result [facility] [address] Department [place] [address] * (ABNORMAL) Urinalysis reflex to microscopic and culture Urine (10/18/2023 5:53 PM DATA POWER CONSULTANT) Color, ur Yellow Yellow Clarity, ur Clear Clear [facility] Specific gravity, ur 1.015 1.003 - 1.030 [facility] pH, urine 6.5 [facility] Comment: Interpretive Data ? Urine [...] on 2017 Protein, ur ql Negative Negative [facility] Glucose, ur ql Negative Negative [facility] Ketones, ur Negative Negative [facility] Bilirubin, ur Negative Negative [facility] Blood, ur 1+(A) Negative [facility] Urobilinogen, ur <2.0 <2.0 mg/dL [facility] Nitrite, ur Negative Negative [facility] Leukocyte esterase, ur Negative Negative [facility] UA reflex comment Reflex to microscopic UA will be performed. [facility] Urine 10/18/2023 5:53 PM DATA POWER CONSULTANT 10/18/2023 5:53 PM DATA POWER CONSULTANT Rvai Isaac DO LAB MICROBIOLOGY - GENERA L ORDERABLES Final Result [facility] [address] Department [place] [address] * POCT hCG, urine (10/18/2023 5:44 PM DATA POWER CONSULTANT) Pathologist [facility] HCG, ur, POC Negative Negative Lot Number [id number] QC Backgroud Clear Acceptable QC Control Line Acceptable Urine 10/18/2023 5:44 PM DATA POWER CONSULTANT Ravi Isaac DO POINT OF CARE TEST ORDERA BLES Final Result * eGFR (10/18/2023 3:59 PM DATA POWER CONSULTANT) Pathologist [facility] eGFR 113 mL/min/1. 73 m2 Comment: Interpretive [...] last reviewed 2021. Blood 10/18/2023 3:59 PM DATA POWER CONSULTANT 10/18/2023 4:03 PM DATA POWER CONSULTANT Ravi Isaac DO LAB BLOOD ORDERABLES Amanda pierce Result [facility] [address] Department [place] [address] * (ABNORMAL) Differential, auto (10/18/2023 3:59 PM DATA POWER CONSULTANT) Neutrophil abs 5.8 1.5 - 6.5 K/cumm Imm gran abs 0.0 0.0 - 0.1 K/cumm [facility] Lymphocyte abs 3.8(H) 0.8 - 3.3 K/cumm [facility] Monocyte abs 0.8 0.2 - 0.8 K/cumm [facility] Eosinophil abs 0.2 0.0 - 0.5 K/cumm [facility] Basophil abs 0.1 0.0 - 0.1 K/cumm [facility] Neutrophil pct 53.8 % [facility] Comment: Interpretive Data Percent cell count reference ranges are not reported, since discordance with absolute values may lead to misinterpretation of CBC data. Current Interpretive Data was last revised on 2017. Imm gran pct 0.3 % [facility] Comment: Interpretive Data Percent cell count reference ranges are not reported, since discordance with absolute values may lead to misinterpretation of CBC data. Current Interpretive Data was last revised on 2017. Lymphocyte pct 35.8 % [facility] Comment: Interpretive Data Percent cell count reference ranges are not reported, since discordance with absolute values may lead to misinterpretation of CBC data. Current Interpretive Data was last revised on 2017. Monocyte pct 7.8 % [facility] Comment: Interpretive Data Percent cell count reference ranges are not reported, since discordance with absolute values may lead to misinterpretation of CBC data. Current Interpretive Data was last revised on 2017. Eosinophil pct 1.8 % [facility] Comment: Interpretive Data Percent cell count reference ranges are not reported, since discordance with absolute values may lead to misinterpretation of CBC data. Current Interpretive Data was last revised on 2017. Basophil pct 0.5 % [facility] Comment: Interpretive Data Percent cell count reference ranges are not reported, since discordance with absolute values may lead to misinterpretation of CBC data. Current Interpretive Data was last revised on 2017. Blood 10/18/2023 3:59 PM DATA POWER CONSULTANT 10/18/2023 4:04 PM DATA POWER CONSULTANT Ravi Isaac DO LAB BLOOD ORDERABLES Amanda l Result Performing Organization Address City/[facility]/ZIP Co de Phone Number [facility] [address] [place] [address] * Lipase (10/18/2023 3:59 PM DATA POWER CONSULTANT) Lipase 23 10 - 99 Units/L Blood (Blood, Venous) 10/18/2023 3:59 PM DATA POWER CONSULTANT 10/18/2023 4:03 PM DATA POWER CONSULTANT Ravi Isaac DO LAB BLOOD ORDERABLES Amanda l Result Performing Organization Address City/[facility]/ZIP Co de Phone Number [facility] [address] Department [place] [address] * (ABNORMAL) Comprehensive metabolic panel (10/18/2023 3:59 PM DATA POWER CONSULTANT) [facility] Sodium 136 135 - 145 mmol/L Potassium, pl 3.6 3.3 - 4.9 mmol/L [facility] Chloride 102 97 - 110 mmol/L [facility] CO2 22 22 - 32 mmol/L [facility] Anion gap 12 2 - 15 mmol/L [facility] BUN 10 6 - 25 mg/dL [facility] Creatinine 0.70 0.60 - 1.10 mg/dL [facility] Glucose 93 70 - 199 mg/dL [facility] Comment: Interpretive Data Fasting glucose [...] 2022. Calcium 9.4 8.5 - 10.3 mg/dL [facility] Bilirubin, total 0.3 0.1 - 1.2 mg/dL [facility] Protein, pl 7.1 6.5 - 8.5 g/dL [facility] Albumin 4.4 3.5 - 5.0 g/dL [facility] Alk phos 101 40 - 130 Units/L [facility] ALT 80(H) 7 - 45 Units/L [facility] AST 50(H) 10 - 45 Units/L [facility] Blood 10/18/2023 3:59 PM DATA POWER CONSULTANT 10/18/2023 4:03 PM DATA POWER CONSULTANT us Ravi Isaac DO LAB BLOOD ORDERABLES Amanda pierce Result [facility] [address] Department [place] [address] * (ABNORMAL) CBC with auto differential (10/18/2023 3:59 PM DATA POWER CONSULTANT) WBC 10.7(H) 3.8 - 9.9 K/cumm Hgb 13.1 11.9 - 15.5 g/dL [facility] Hct 40.3 35.6 - 45.5 % [facility] Plt 339 150 - 400 K/cumm [facility] MPV 10.9 9.1 - 12.3 fL [facility] RBC 4.58 3.90 - 5.20 M/cumm [facility] MCV 88.0 81.3 - 96.4 fL [facility] MCH 28.6 27.1 - 33.3 pg [facility] MCHC 32.5 32.3 - 35.7 g/dL [facility] RDW CV 13.2 11.1 - 14.9 % [facility] RDW SD 42.7 35.7 - 48.1 fL [facility] NRBC abs 0.00 0.00 - 0.01 K/cumm [facility] Blood (Blood, Venous) 10/18/2023 3:59 PM DATA POWER CONSULTANT 10/18/2023 4:04 PM DATA POWER CONSULTANT us Ravi Isaac DO LAB BLOOD ORDERABLES Amanda pierce Result [facility] [address] Department [place] [address] documented in this encounter Visit [...] 1 dose Contrast Given 10/18/2023 7:40 PM DATA POWER CONSULTANT 70 mL documented in this encounter Active and Recently Administered Medications Times are shown in DATA POWER CONSULTANT. PRN Medication Order 10/16/2023 10/17/2023 10/18/2023 ioversoL [...] 10/18/2023 documented in this encounter Care Teams Technician Plant And Maintenance Relationship Specialty Start Date End Date Avery Hidalgo DO PCP - General 03/02/20 03/10/24 documented as of this encounter
--- OUTSIDE RECORDS SUMMARY | 2024-07-30 16:07 | XMS_ITS | Encounter Summary ---
Author Organization [facility] Healthcare Address [address] [place] [address] Care Team Providers Care Slot Editor Name Role Phone Avery Hidalgo DO Primary Care Provider [phone] Encounter Details Date Type Department Care Team (Latest Contact Info) Description 11/08/2023 7:23 PM CDT - 11/08/2023 11:59 PM CDT Hospital Encounter [place] [id number] [place] [address] Screening for cervical cancer; Screening [...] FLUIDS AND STOOLS ORDERABLES Final Result [facility] [address] [place] [address] * Pap and High Risk HPV and Genotyping (Cytology Component) (11/08/2023 2:02 PM CDT) Thin prep (Pap test) 11/08/2023 2:02 PM CDT 11/09/2023 11:25 AM CDT Narrative PATHOLOGY [facility] - 11/15/2023 1:19 PM CDT EPIC results best viewed via link to PDF [address] ??[id number] Tele: ?? Kisha Parks MD - Manager Supply CYTOLOGY REPORT Note to Patients: This report [...] the details. Patient Name: ??ÁNGELA IBRAHIM Address: ??[address] [place] [id number] Gender: ??F : ??1985 (Age: 38) Service: ?? Location: ?? Hospital #: ??[id number] Patient Type: ??[facility] SPECIMEN Taken: ??11/08/2023 Reported: ??11/15/2023 Physician(s): ? Aura Horne MD FINAL DIAGNOSIS: SOURCE OF SPECIMEN ?- ThinPrep Pap and HPV w/ reflex Genotyping: STATEMENT OF ADEQUACY Source: ??Cervical/Endocervical ?- Satisfactory for interpretation ?- Endocervical/Transformation zone component absent or insufficient ?- Case screened using computer assisted imaging technology and manually re-screened by a head bander and liner operator. ? GENERAL CATEGORIZATION: ?- Negative for intraepithelial [...] has been rescreened in accordance with the [facility] Laboratory Quality Management Program. REPORT IMAGES [...] LAB CYTOLOGY ORDERABLES Fi nal Result PATHOLOGY [facility] Laboratory Receiving [address] [place], [place] [id number] * (ABNORMAL) High Risk HPV DNA Detection with Genotyping (Molecular component) (11/08/2023 2:02 PM CDT) HPV HR 16 Detected(A) Not Detected HPV HR 18 Not Detected Not Detected [facility] HPV HR Non 16/18 Not Detected Not Detected [facility] Comment: Interpretive Data Nucleic acid amplification [...] this test have been verified by the [facility]. Correlate with separately reported cytology results, as applicable. Interpretive data last revised 23 Endocervical 11/08/2023 2:02 PM CDT 11/08/2023 7:53 PM CDT Narrative [facility] - 11/10/2023 9:27 PM CDT Clinical history and diagnosis->screening Testing type->Screening Last menstrual period (date if known)->unknown us Aura Horne MD LAB BODY FLUIDS AND STOOLS ORDERABLES Final Result [facility] [address] Department [place] [address] documented in this encounter Visit Diagnoses Diagnosis Screening for cervical cancer Screening for malignant neoplasm of the cervix Screening for HPV (human papillomavirus) Special screening examination for human papillomavirus (HPV) documented in this encounter Care Teams Slot Editor Relationship Specialty Start Date End Date Avery Hidalgo DO PCP - General 03/02/20 03/10/24 documented as of this encounter
--- OUTSIDE RECORDS SUMMARY | 2024-07-30 16:07 | XMS_ITS | Encounter Summary ---
Author Organization [facility] Healthcare Address [address] [place] [address] Care Team Providers Care Sausage Tier Name Role Phone Avery Hidalgo DO Primary Care Provider [phone] Encounter Details Date Type Department Care Team (Late st Contact Info) Description 09/12/2023 3:45 PM LOGGING EQUIPMENT MECHANIC Lab [facility] Advanced Medicine [facility] Advanced Medicine ([facility]) [address] [place] [phone] Pre-employment health screening examination Social History Tobacco [...] Diagnosis Comments T-SPOT.TB Routine 09/12/2023 3:16 PM LOGGING EQUIPMENT MECHANIC Pre-employment health screening examination documented in this encounter Results * T-SPOT.TB Blood (09/12/2023 3:16 PM LOGGING EQUIPMENT MECHANIC) T-SPOT.TB Negative Mik [facility] Comment: Normal Value: Negative A negative test [...] test. T-SPOT.TB Panel A Spot Count 2 [facility] T-SPOT.TB Panel B Spot Count 2 [facility] T-SPOT.TB Negative Control Passed [facility] T-SPOT.TB Positive Control Passed [facility] Comment: Test Performed at: [facility] [address] [place] [address] ??[phone] ? PRIETO MARSHALL,PHD Blood 09/12/2023 3:16 PM LOGGING EQUIPMENT MECHANIC 09/12/2023 5:10 PM LOGGING EQUIPMENT MECHANIC Narrative [facility] - 09/14/2023 1:53 PM LOGGING EQUIPMENT MECHANIC Patient is employed by/enrolled at:->[employer] Paulo Nguyen MD LAB MICROBIOLOGY - GENERAL OR DERABLES Final Result [facility] Department [place] [address] documented in this encounter Visit Diagnoses Diagnosis Pre-employment health screening examination Health examination of defined subpopulation documented in this encounter Care Teams Sausage Tier Relationship Specialty Start Date End Date Avery Hidalgo DO PCP - General 03/02/20 03/10/24 documented as of this encounter
--- OUTSIDE RECORDS SUMMARY | 2024-07-30 16:07 | XMS_ITS | Encounter Summary ---
Author Organization [facility] Healthcare Address [address] [place] [address] Care Team Providers Care Library Associate Name Role Phone Omega Khanna MD, [facility] Primary Care Provider Reason for Referral * Consultation (Routine) - Closed Specialty Diagnoses / Procedures Referred By Contac t Referred To Contact Gastroenterology Diagnoses Acute gastritis without hemorrhage, unspecified gastritis type Gastroesophageal reflux disease, unspecified whether esophagitis present Misty Brooks NP [address] [place] [address] Phone: tel: fax: [facility] Medical [facility] Gastroenterology at [facility] [address] [facility] [address], [place] [address] Phone: tel: fax: Referral ID Status Reason Start Date Expiration Date V isits Requested Visits Authorized [id number] Closed Specialty Services Required 03/28/2024 04/27/2025 1 1 Question Answer Process Instructions: THE AMBULATORY REFERRAL TO GASTROENTEROLOGY IS NOT AN ORDER FOR A PROCEDURE (I.E. EGD, COLONOSCOPY.) USE THE DIRECT SCHEDULING CASE REQUEST ORDER (GI50) IF THE PATIENT REQUIRES A PROCEDURE TO BE PERFORMED. Please select the performing region: [facility] Group [[id number]] Please select the performing department: [facility] [[id number]] # of visits: 1 Reason for Visit * Reason Comments Chest Pain Encounter Details Date Type Department Care Team (Late st Contact Info) Description 03/28/2024 5:07 AM CDT - 03/28/2024 9:36 AM CDT Emergency [facility] Emergency Department [address] [place] [address] Acute gastritis without hemorrhage, unspecified gastritis type [...] Trop T hs delta 0 ng/L [facility] Trop T hs interp Insignificant [facility] Blood 03/28/2024 7:56 AM CDT 03/28/2024 8:16 AM CDT us Donald Sahu MD LAB BLOOD ORDERABLES Final Result [facility] [address] [place] [address] * (ABNORMAL) Differential, auto (03/28/2024 6:05 AM CDT) Neutrophil abs 8.6(H) 1.5 - 6.5 K/cumm Imm gran abs 0.1 0.0 - 0.1 K/cumm [facility] Lymphocyte abs 1.7 0.8 - 3.3 K/cumm [facility] Monocyte abs 0.5 0.2 - 0.8 K/cumm [facility] Eosinophil abs 0.0 0.0 - 0.5 K/cumm [facility] Basophil abs 0.0 0.0 - 0.1 K/cumm [facility] Neutrophil pct 79.2 % [facility] Comment: Interpretive Data Percent cell count reference ranges are not reported, since discordance with absolute values may lead to misinterpretation of CBC data. Current Interpretive Data was last revised on 2017. Imm gran pct 0.5 % [facility] Comment: Interpretive Data Percent cell count reference ranges are not reported, since discordance with absolute values may lead to misinterpretation of CBC data. Current Interpretive Data was last revised on 2017. Lymphocyte pct 15.3 % [facility] Comment: Interpretive Data Percent cell count reference ranges are not reported, since discordance with absolute values may lead to misinterpretation of CBC data. Current Interpretive Data was last revised on 2017. Monocyte pct 4.7 % [facility] Comment: Interpretive Data Percent cell count reference ranges are not reported, since discordance with absolute values may lead to misinterpretation of CBC data. Current Interpretive Data was last revised on 2017. Eosinophil pct 0.1 % [facility] Comment: Interpretive Data Percent cell count reference ranges are not reported, since discordance with absolute values may lead to misinterpretation of CBC data. Current Interpretive Data was last revised on 2017. Basophil pct 0.2 % [facility] Comment: Interpretive Data Percent cell count reference ranges are not reported, since discordance with absolute values may lead to misinterpretation of CBC data. Current Interpretive Data was last revised on 2017. Blood 03/28/2024 6:05 AM CDT 03/28/2024 6:05 AM CDT Donald Sahu MD LAB BLOOD ORDERABLES Final Result Performing Organization Address City/[facility]/ZIP Co de Phone Number [facility] [address] [place], [place] [id number] * (ABNORMAL) CBC with auto differential (03/28/2024 6:05 AM CDT) WBC 10.9(H) 3.8 - 9.9 K/cumm Hgb 14.7 11.9 - 15.5 g/dL [facility] Hct 44.4 35.6 - 45.5 % [facility] Plt 315 150 - 400 K/cumm [facility] MPV 11.0 9.1 - 12.3 fL [facility] RBC 5.10 3.90 - 5.20 M/cumm [facility] MCV 87.1 81.3 - 96.4 fL [facility] MCH 28.8 27.1 - 33.3 pg [facility] MCHC 33.1 32.3 - 35.7 g/dL [facility] RDW CV 13.7 11.1 - 14.9 % [facility] RDW SD 43.7 35.7 - 48.1 fL [facility] NRBC abs 0.00 0.00 - 0.01 K/cumm [facility] Blood (Blood, Venous) 03/28/2024 6:05 AM CDT 03/28/2024 6:05 AM CDT Donald Sahu MD LAB BLOOD ORDERABLES Final Result [facility] [address] [place] [address] * XR Chest 1 Vw (03/28/2024 6:03 [...] BLOOD ORDERABLES Final Result Performing Organization Address [facility] Co de Phone Number [facility] [address] [place] [address] * Troponin T high-sensitivity series (baseline, 2hr, [...] BLOOD ORDERABLES Final Result Performing Organization Address [facility] Co de Phone Number [facility] [address] [place] [address] * Lipase (03/28/2024 5:52 AM CDT) Pathologist [facility] Lipase 24 10 - 99 Units/L Blood (Blood, Venous) 03/28/2024 5:52 AM CDT 03/28/2024 6:05 AM CDT Donald Sahu MD LAB BLOOD ORDERABLES Final Result Performing Organization Address [facility] Co de Phone Number [facility] [address] [place], [place] [id number] * (ABNORMAL) Comprehensive metabolic panel (03/28/2024 5:52 AM CDT) Sodium 138 135 - 145 mmol/L Potassium, pl 4.1 3.3 - 4.9 mmol/L [facility] Chloride 98 97 - 110 mmol/L [facility] CO2 18(L) 22 - 32 mmol/L [facility] Anion gap 22(H) 2 - 15 mmol/L [facility] BUN 13 6 - 25 mg/dL [facility] Creatinine 0.65 0.60 - 1.10 mg/dL [facility] Glucose 149 70 - 199 mg/dL [facility] Comment: Interpretive Data Fasting glucose >/= 126 [...] 2022. Calcium 10.2 8.5 - 10.3 mg/dL [facility] Bilirubin, total 0.5 0.1 - 1.2 mg/dL [facility] Protein, pl 8.7(H) 6.5 - 8.5 g/dL [facility] Albumin 4.9 3.5 - 5.0 g/dL [facility] Alk phos 98 40 - 130 Units/L [facility] ALT 35 7 - 45 Units/L [facility] AST 28 10 - 45 Units/L [facility] Blood 03/28/2024 5:52 AM CDT 03/28/2024 6:05 AM CDT Donald Sahu MD LAB BLOOD ORDERABLES Final Result [facility] [address] [place] [address] * ECG 12 lead (03/28/2024 4:43 AM CDT) 03/28/2024 4:43 AM CDT Narrative [facility] - 03/28/2024 2:39 PM CDT Vent Rate: 62 bpm RR Interval: 955 msec VT Interval: 103 msec QRS Duration: 88 msec QT Interval: 433 msec QTC Interval: 439 msec P-R-T [place]: 50 - 34 - 56 degrees IMPRESSION: SINUS RHYTHM WITH SHORT VT INTERVAL BORDERLINE ECG Electronically Signed By: Juan Sue MD mobap us Donald Sahu MD ECG ORDERABLES Final Resu lt [facility] documented in this encounter Visit Diagnoses Diagnosis [...] at 0542, For 1 dose, Indications: Nausea, VomitingIndications:Nausea,Vomit ing Given 03/28/2024 5:41 AM CDT 4 mg [...] 03/28/2024 documented in this encounter Care Teams Library Associate Relationship Specialty Start Date End Date Maurice Duff Jr., MD [address] [place] [id number] PCP - General Family Medicine 03/11/24 documented as of this encounter
--- OUTSIDE RECORDS SUMMARY | 2024-07-30 16:07 | XMS_ITS | Encounter Summary ---
Author Organization [facility] Healthcare Address [address] [place] [address] Care Team Providers Care Electric Distribution Engineer Name Role Phone Avery Hidalgo DO Primary Care Provider [phone] Encounter Details Date Type Department Care Team (Latest Contact Info) Description 11/27/2023 3:23 PM CDT - 11/27/2023 11:59 PM CDT Hospital Encounter [id number] [place] [address] Encounter for biopsy; HPV (human [...] CDT 11/28/2023 7:33 AM CDT Narrative PATHOLOGY [facility] - 11/29/2023 4:02 PM CDT [address] ??[address] Tele: ?? Kisha Parks MD - As[employer]er [employer] Note to Patients: This report may contain [...] ??ÁNGELA IBRAHIM Address: ??[address] [place] ??[address] Gender: ??F : ??1985 (Age: 38) Service: ?? Location: ??, ?? Hospital #: ??[id number] Patient Type: ??[facility] Accession #: ? [id number] Taken: ? 11/27/2023 Received ? 11/28/2023 Reported: [...] 16+ GROSS DESCRIPTION: Received in formalin labeled [facility] and endocervical curettage is a cervical [...] levels are reviewed. Clerical Data Follows A; [id number] REPORT IMAGES AND/OR SCANNED DOCUMENTS ONLY VIEWABLE IN PDF FORMAT The immunohistochemical test(s) cited in this report, if any, was developed and its performance characteristics determined by [facility] Pathology Department. ??It has not been cleared or approved by the U.S. Food and Drug Administration. ??The FDA has determined that such clearance or approval is not necessary. ??This test is used for clinical purposes. ??It should not be regarded as investigational or for research. ??[facility] Laboratory is certified under the Clinical [...] LAB PATHOLOGY ORDERABLES F inal Result PATHOLOGY [facility] Laboratory Receiving [address] [place] [address] documented in this encounter Visit Diagnoses Diagnosis Encounter for biopsy HPV (human papilloma virus) infection documented in this encounter Care Teams Electric Distribution Engineer Relationship Specialty Start Date End Date Avery Hidalgo DO PCP - General 03/02/20 03/10/24 documented as of this encounter
--- OUTSIDE RECORDS SUMMARY | 2024-07-30 16:07 | XMS_ITS | Encounter Summary ---
Author Organization [facility] Address [address] [place] [address] Phone Care Team Providers Care Loan Counselor Name Role Phone Avery Hidalgo DO Primary Care Provider [phone] Reason for Visit * Reason Onset Date Comments IOV request 10/16/2023 Encounter Details Date Type Department Care Team (Late st Contact Info) Description 10/16/2023 Telephone [facility] Cardiology [address] [facility] [address] [place] [address] [place] [id number] Paul Fine MD [address] [place] [address] IOV request Social History Tobacco Use Types [...] - Alicia Persaud - 10/19/2023 9:58 AM PAYROLL ANALYST LMOR @ [phone] to get [facility] C[employer] insurance card OLL ANALYST * Telephone Encounter - Alicia Persaud - 10/18/2023 7:45 AM PAYROLL ANALYST I also sent MyChart Msg to pt yesterday thru MyChart. Haven't gotten card yet. OLL ANALYST * Telephone Encounter - Alicia Persaud - 10/17/2023 11:47 AM PAYROLL ANALYST Pt is sending copy of her [facility] [employer] card thru MyChart Msg OLL ANALYST * Telephone Encounter - Alicia Persaud - 10/17/2023 10:28 AM PAYROLL ANALYST Okay to schedule pt to see Dr. Fine for SVT? 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 [] [x] If 'Yes', Schedulefirst available with Cardio-Oncology If yes where were you treated? Have you ever seen a Agricultural Adviser in an office setting? [x] [] Dr. [...] cardiac issue? [x] [] Summer/fall 2022 @ [facility] Have you ever had any cardiac [...] where and when was device put in? County Adviser? ([employer], [employer], [employer]) Appointment Date: Provider: Location: [] Confirm appt date, time, provider and location. [] Advise pt to arrive 15-20 min early. [] Advise patient to bring medications/list, photo ID and insurance card [] Advise of New Patient Packet being mailed to them. OLL ANALYST * Telephone Encounter - Joyce Hernandez - 10/16/2023 12:22 PM CST Bab[place]unde Pt would like to schedule an appt with Dr. Fine. 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 OLL ANALYST documented in this encounter Plan of Treatment Not on file documented as of this encounter Visit Diagnoses Not on filedocumented in this encounter Care Teams Loan Counselor Relationship Specialty Start Date End Date Avery Hidalgo DO PCP - General 03/02/20 03/10/24 documented as of this encounter
--- OUTSIDE RECORDS SUMMARY | 2024-07-30 16:07 | XMS_ITS | Encounter Summary ---
Author Organization [facility] Healthcare Address [address] [place] [address] Care Team Providers Care Forest Economics Professor Name Role Phone Omega Khanna MD, [facility] Primary Care Provider Encounter Details Date Type Department Care Team (Late st Contact Info) Description 03/29/2024 Telephone [facility] Medical Group Cardiology [address] [place] [address] Dena Jaramillo MA Social History [...] regards to her 1230 appointment with the SALON/SPA MANAGER today. Please transfer call of pt calls back documented in this encounter Plan of Treatment Not on file documented as of this encounter Visit Diagnoses Not on filedocumented in this encounter Care Teams Forest Economics Professor Relationship Specialty Start Date End Date Maurice Duff Jr., MD [address] [address] PCP - General Family Medicine 03/11/24 documented as of this encounter
--- OUTSIDE RECORDS SUMMARY | 2024-07-30 16:07 | XMS_ITS | Encounter Summary ---
Author Organization [facility] Healthcare Address [address] [place] [address] Care Team Providers Care Mold Chipper Name Role Phone Omega Khanna MD, Maurice Parks Primary Care Provider Reason for Visit * Reason Comments Chest Pain * Auth/Cert (Routine) Specialty Diagnoses / Procedures Referred By Contac t Referred To Contact Diagnoses Intractable nausea and vomiting Chest pain, unspecified type Nausea and vomiting, unspecified vomiting type Procedures na Referral ID Status Reason Start Date Expiration Date Visits Re quested Visits Authorized [id number] 1 1 Encounter Details Date Type Department Care Team (Latest Contact Info) Description 04/01/2024 3:30 PM CDT - 04/01/2024 4:00 PM CDT Surgery [facility] GI Center [facility] [place] [address] Bruno Cobb MD [address] [place] [id number] ESOPHAGOGASTRODUODENOSCOPY BIOPSY Surgery Details Date/Time Status Location OR Service Patient Class Case Class Case Type Trauma Case? 04/01/2024 3:30 PM Posted [facility] ENDOSCOPY GI 02 Gastroenterology Inpatient Elective Panel [...] Patient Age - 38 yrs Patient - [id number] [facility] - [id number] Document Creation Date: 04/09/2024 Admitting Provider, : Bruno Cobb MD Discharge Provider, MD: Shanti Freedman MD Primary Care Physician at Discharge: Maurice Duff Jr., MD [phone] Admission Date: 03/30/2024 Discharge Date/time: 04/09/2024 Admission Location: [facility] LOS - LOS: 9 days DETAILS OF HOSPITAL STAY Hospital Problems/Diagnoses Principal Problem: Intractable nausea and vomiting Active Problems: Intractable vomiting Reason for Hospitalization: Hospital Course: The patient is a 39-year-old female with history of anxiety/depression, GERD, SVT on verapamil and very infrequent marijuana use (twice a month) who presented for intractable nausea and vomiting after returning from a trip to [place]. She has had several negative ER evaluations [...] [facility] [place], [place] - [address] [place] [id number] 30 mg capsule mirtazapine 7.5 [...] In process Phosphorus In process Thyroid Function [facility] In process Operative Procedures Performed (If Blank, None Found): Procedure(s): ESOPHAGOGASTRODUODENOSCOPY BIOPSY Outpatient Follow-Up: Future Appointments Date Time Provider Department Center 04/19/2024 9:45 AM Juan Sue MD PhD [facility] CAR 200 Specialty 11/12/2024 1:30 PM Aura Horne MD [facility] OB 360 Specialty Please schedule an appointment with the following provider(s): No follow-up provider specified. ANCILLARY INFORMATION Other Procedures & Diagnostic Tests: ECG 12 lead Result Date: 03/31/2024 Vent Rate: 62 bpm RR Interval: 955 msec WY Interval: 101 msec QRS Duration: 86 msec QT Interval: 430 msec QTC Interval: 436 msec P-R-T [place]: 47 - 24 - 56 degrees IMPRESSION: SINUS RHYTHM WITH SHORT WY INTERVAL POSSIBLE RIGHT VENTRICULAR CONDUCTION DELAY BORDERLINE ECG Electronically Signed By: [facility] Card ECG 12 lead Result Date: 03/31/2024 Vent Rate: 57 bpm RR Interval: 1035 msec WY Interval: 101 msec QRS Duration: 82 msec QT Interval: 418 msec QTC Interval: 413 msec P-R-T [place]: 48 - 32 - 49 degrees IMPRESSION: SINUS BRADYCARDIA WITH SHORT WY INTERVAL BORDERLINE ECG Electronically Signed By: [facility]ir [facility]formerly [facility] Card XR Chest PA Lateral 2 Views [...] 5* 7 CREATININE mg/dL 0.81 0.73 0.75 DOW-KXO-OTRLCNO mL/min/1.73 m2 >90 >90 >90 GLUCOSE mg/dL [...] Soft Diet effective now Question Answer Comment ([facility]) Diet type GI Diets GI: GI Soft [...] Cell Culture-based MDCK, Preservative Free, Antibiotic Free, Vfkwenljaxyrn15/02/2020 Influenza, Quadrivalent, Split, Preservative Free, Intramuscular 04/26/2018 [...] 5* 7 CREATININE mg/dL 0.81 0.73 0.75 NLT-ZLR-ZTSQDPL mL/min/1.73 m2 >90 >90 >90 CALCIUM mg/dL [...] Type of Weight Used for Estimated Kcals: [place] Total Protein Estimated Needs (gm): 57.12 Protein Needs Based on g/k.2 Type of Weight Used for Estimated Protein : [place] Dietary Orders (From admission, onward) Start Ordered 04/08/24 1549 Adult Diet GI Diets; GI Soft Diet effective now Question Answer Comment ([facility]) Diet type GI Diets GI: GI Soft [...] dinner with her parents. 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 Vitals: 04/08/24 1145 [...] 30 mg, oral, Daily with evening meal, eKvon Emanuel MD, 30 mg at 04/08/242052 enoxaparin [...] in medications at her outpatient pharmacy in [place]. No more nausea or vomiting present since Abilify stopped. Continue the patient on Mirtazapine 7.5 mg orally once daily at Night. Continue with Duloxetine 30 mg orally once daily with evening meal. Continue with PRN Clonazepam medications. Patient can follow up with her outpatient psychiatrist on discharge. Discussed with Dr Shatni Freedman via [employer] Return chat * Kevon Emanuel MD - 04/08/2024 [...] mg, 0.5 mg, intravenous, TID PRN, Bruno oCbb MD, 0.5 mg at 04/07/24 2138 mirtazapine [...] Continue with PRN Clonazepam medications. Discussed with [employer] with GI team and Dr Saba. * Jeanie Ramos PA - 04/08/2024 9:13 AM CDT Pt JEREMY for HIDA scan this morning. Events of weekend reviewed. Refractory N/V. Still with limited PO. Unsuccessful dobhoff trial, dislodged with vomiting. Etiology of N/V yet to be determined. 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 Medications adjusted. Consider low dose TCA if psychiatry agreeable. Will follow. HIDA negative. She is feeling better today. Will trial PO. Medications adjusted yesterday, now off Aripiprazole. Last vomited overnight. Reviewed with psychiatry, prefers to hold on further medication adjustments at this time Discussed with Dr. Emanuel and Dr. Saba via [employer] Jeanie Ramos PA-C Cosigned by Anam Jenkins [...] vomiting after returning from a trip to [place]. She has had several negative ER evaluations [...] symptoms started 2 weeks after returning from [place] and recently starting a new job. Her [...] 11 10 CREATININE mg/dL 0.65 0.73 0.74 SCO-POB-FAICVHP mL/min/1.73 m2 >90 >90 >90 CALCIUM mg/dL [...] Type of Weight Used for Estimated Kcals: [place] Total Protein Estimated Needs (gm): 57.12 Protein Needs Based on g/k.2 Type of Weight Used for Estimated Protein : [place] Dietary Orders (From admission, onward) Start Ordered 04/06/24 1421 Tube Feeding Diet Continuous; ClipClock Standard 1.4 Maxime; 40; Nasoduodenal tube; 60;Water; Every 4 hours (Tube Feeding Diet Panel) Diet effective now Comments: Initiate TF at 10 mls/hr, increase by 10 mls q6 until goal of 40 mls/hr is reached. Question Answer Comment Tube feeding type: Continuous ([facility]) Tube Feeding Formula: ClipClock Standard 1.4 Maxime Tube Feeding Continuous (mL/hr): 40 Per Tube: Nasoduodenal tube Tube Feeding Flush (mL): 60 Flush Type: Water Flush Frequency: Every 4 hours 04/06/24 1422 04/05/24 1700 Oral Nutrition Supplements ([facility]) Select Supplement: Ensure Clear - Any Flavor All Meals Question: ([facility]) Select Supplement: Answer: Ensure Clear - Any Flavor 04/05/24 1319 04/03/24 1008 Adult Diet Clear Liquid Diet effective now Question: ([facility]) Diet type Answer: Clear Liquid 04/03/24 1007 Allergies: Reviewed, latex IMPRESSION: 04/06: Consult received to initiate TF with dobhoff feeds. Recommend ClipClock 1.4 with a goal of 40 mls/hr. [...] dinner with her parents. 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 Her [...] mg, 0.5 mg, oral, TID PRN, Bruno Cbob MD, 0.5 mg at 04/06/[address] (CYMBALTA) extended release capsule 30 mg, 30 mg, oral, Daily with evening meal, Kevon Emanuel MD, 30 mg at 04/05/24 1820 enoxaparin (LOVENOX) syringe 40 mg, 40 mg, subcutaneous, Daily-2100, Nicholas Saba Smooth, DO, 40 mg at 04/05/242010 erythromycin (ERYTHROCIN) 500 mg in sodium chloride 0.9% 100 mL IVPB, 500 mg, intravenous, Q6H [facility],Jeanie Ramos PA, Last Rate: 110 mL/hr at [...] 100 mL IVPB, 500 mg, intravenous, Q6H [facility],Jeanie Ramos PA famotidine (PEPCID) injection 20 mg, [...] mg/dL 11 10 CREATININE mg/dL 0.73 0.74 NNP-MTF-YAQUSAA mL/min/1.73 m2 >90 >90 CALCIUM mg/dL 9.2 [...] Type of Weight Used for Estimated Kcals: [place] Total Protein Estimated Needs (gm): 57.12 Protein Needs Based on g/k.2 Type of Weight Used for Estimated Protein : [place] Dietary Orders (From admission, onward) Start Ordered 04/05/24 1700 Oral Nutrition Supplements ([facility]) Select Supplement: Ensure Clear - Any Flavor All Meals Question: ([facility]) Select Supplement: Answer: Ensure Clear - Any Flavor 04/05/24 1319 04/03/24 1008 Adult Diet Clear Liquid Diet effective now Question: ([facility]) Diet type Answer: Clear Liquid 04/03/24 1007 [...] dinner with her parents. 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 Her [...] symptoms started 2 weeks after returning from [place] and recently starting a new job. Her [...] symptoms started 2 weeks after returning from [place]. Her travel companions were not sick. She [...] abdominal pain. She notes after returning from [place] recently she had a day of feeling [...] 0.4 0.6 CARLOS Charles Cosigned by Bruno oCbb MD at 04/02/2024 11:43 AM CDT * [...] symptoms started 2 weeks after returning from [place]. Her travel companions anoxic. She denies any [...] BUN SERUM mg/dL 6 CREATININE mg/dL 0.75 SBC-BNI-EWKUERX mL/min/1.73 m2 >90 CALCIUM mg/dL 8.9 ALBUMIN [...] Type of Weight Used for Estimated Kcals: [place] Total Protein Estimated Needs (gm): 57.12 Protein Needs Based on g/k.2 Type of Weight Used for Estimated Protein : [place] Dietary Orders (From admission, onward) Start Ordered [...] dinner with her parents. 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 The patient [...] a good visit with her family to [place] recently. 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 SUBSTANCE ABUSE HISTORY The patient denies [...] for the consultation. Job ID/Internal Job ID: [id number] * Zacarias Nj PA - 04/01/2024 10:56 [...] medication doses. No travel other than to [place]. No headache, no ill contacts. She takes 600mg ibuprofen 1-2 times weekly. She uses cannabis once every couple months. UDS positive for cannabis. No cigarette smoking. Rare ETOH. No illicit drug use. Significant fmhx colon cancer,apparently including Cavanaugh syndrome. She is currently leaving a stressful job and about to start a new job at [facility]. 2013 EGD unremarkable. Also had 2013 colonoscopy. [...] told that she needs to see a steam hoist operator due to the fact that she has [...] (CMS/HCC) (HCC) 03/11/2024 PSVT (paroxysmal supraventricular tachycardia) ([facility]) 03/11/2024 Mixed hyperlipidemia 03/11/2024 Vaginal vestibulitis [...] told that she had to see a steam hoist operator. She has an appointment with them in [...] vs,labs. Controlled nausea. Maintain comfort and safety. Brand Development Manager Patient Centered Goal for Treatment: Return home. [...] on RA. NaBicarb@75ml/hr. Pt was tolerating TF [employer] [employer] 1.4cal@40ml but dislodged andpulled out dobhoff [...] be picked up for send out to [place] on 04/08 and results take approximately 1-2 [...] Interview Note Information Obtained From: Patient (04/05/24 7527) Admission Source: ED from home. Impression: Nausea/Vomiting. Bipolar disorder Plan Includes: Return home. Primary Source of Transportation: Does the patient need discharge transport arranged?: No (04/04/24 1018) Health Insurance Coverage: [employer]. Prescription Coverage: yes Pharmacy: [id number] - [place], [place] - [address] [facility] [address] [place] [address] Primary Care Provider: Maurice Duff Jr., MD Prior to Admission: Functional Status: Independent with ADLs Primary Caregiver: Self Support System: Parent Home Care Services: No Outpatient Services: No Durable Medical Equipment: None Living Arrangements: Alone, Other (Comment) (daughter stays with occ.) Type of Residence: Apartment Steps in home?: Yes, Inside home Number of steps inside: 13 steps Medication management: Independent (03/30/249) SDOH: Transportation: In the past 12 months, [...] homeless or living in a retirement (including now)?: No (04/05/241357) Utilities: Social Connections: In a typical week, how many times do you talk on the phone with family, friends, or neighbors?: More than three times a week How often do you get together with friends or relatives?: More than three times a week How often do you attend judaism or mormon services?: Never Do you belong to any clubs or organizations such as judaism groups, unions, fraternal or athletic groups, or [...] nurse. Plan is to return home at ma. Parents will transport. From chart review, occ. [...] Collaboration with Patient, Provider, Direct Care Nurse, Programmer Engineering And Scientific, and other members of theHealth Care Team to assure needed interventions completed. 2. Return patient to optimal level of self-care post discharge. 3. Ecological Modeler will follow for Discharge Planning - interventions [...] Date Expected Discharge Date Apr 06, 2024 ID Transport barriers: No PT/OT orders: No CM [...] year old daughter that lives with her agriculture department chair. She does not use any [...] 04/01/2024 7:0 9 AM CDT Thyroid Function [facility] Lab Routine 04/01/2024 7:09 AM CDT Hemoglobin [...] urrences starting 04/01/2024 until 04/01/2024 Thyroid Function [facility] Lab Routine Once for 1 Occurrences starting [...] Results * eGFR (04/09/2024 5:53 AM CDT) [facility] eGFR >90 >=60 mL/min/1. 73 m2 Comment: [...] ORDERABLES Amanda l Result Performing Organization Address City/[facility]/ZIP Co de Phone Number [facility] [address] [facility] [employer] [place], [place] [id number] * Magnesium (04/09/2024 5:53 AM CDT) Magnesium 2.3 1.4 - 2.5 mg/dL Blood 04/09/2024 5:53 AM CDT 04/09/2024 6:09 AM CDT Nicholas Smooth Ahmad DO LAB BLOOD ORDERABLES Amanda l Result Performing Organization Address [facility] Co de Phone Number [facility] [address] [facility] [employer] [place], [place] [phone] * (ABNORMAL) Phosphorus (04/09/2024 5:53 AM CDT) Phosphorus, pl 4.8(H) 2.3 - 4.5 mg/dL Blood 04/09/2024 5:53 AM CDT 04/09/2024 6:09 AM CDT Joannea Smooth Ahmad DO LAB BLOOD ORDERABLES Amanda l Result Performing Organization Address [facility] Co de Phone Number [facility] [address] Department [place] [address] * Comprehensive metabolic panel (04/09/2024 5:53 AM CDT) Sodium 135 135 - 145 mmol/L Potassium, pl 4.0 3.3 - 4.9 mmol/L [facility] Chloride 99 97 - 110 mmol/L [facility] CO2 25 22 - 32 mmol/L [facility] Anion gap 11 2 - 15 mmol/L [facility] BUN 7 6 - 25 mg/dL [facility] Creatinine 0.81 0.60 - 1.10 mg/dL [facility] Glucose 104 70 - 199 mg/dL [facility] Comment: Interpretive Data Fasting [...] 2022. Calcium 9.4 8.5 - 10.3 mg/dL [facility] Bilirubin, total 0.4 0.1 - 1.2 mg/dL [facility] Protein, pl 6.8 6.5 - 8.5 g/dL [facility] Albumin 3.8 3.5 - 5.0 g/dL [facility] Alk phos 84 40 - 130 Units/L [facility] ALT 35 7 - 45 Units/L [facility] AST 24 10 - 45 Units/L [facility] Blood 04/09/2024 5:53 AM CDT 04/09/2024 6:09 AM CDT us Bazgha Smooth Ahmad DO LAB BLOOD ORDERABLES Amanda l Result [facility] [address] Department [place] [address] * NM Hepatobiliary Imaging W GBEF (04/08/2024 [...] DO LAB BLOOD ORDERABLES Amanda l Result [facility] [address] [place] [address] * (ABNORMAL) Differential, auto (04/08/2024 3:57 AM CDT) Neutrophil abs 3.4 1.5 - 6.5 K/cumm Imm gran abs 0.0 0.0 - 0.1 K/cumm [facility] Lymphocyte abs 3.7(H) 0.8 - 3.3 K/cumm [facility] Monocyte abs 1.0(H) 0.2 - 0.8 K/cumm [facility] Eosinophil abs 0.1 0.0 - 0.5 K/cumm [facility] Basophil abs 0.0 0.0 - 0.1 K/cumm [facility] Neutrophil pct 41.1 % [facility] Comment: Interpretive Data Percent cell count reference ranges are not reported, since discordance with absolute values may lead to misinterpretation of CBC data. Current Interpretive Data was last revised on 2017. Imm gran pct 0.2 % [facility] Comment: Interpretive Data Percent cell count reference ranges are not reported, since discordance with absolute values may lead to misinterpretation of CBC data. Current Interpretive Data was last revised on 2017. Lymphocyte pct 44.1 % [facility] Comment: Interpretive Data Percent cell count reference ranges are not reported, since discordance with absolute values may lead to misinterpretation of CBC data. Current Interpretive Data was last revised on 2017. Monocyte pct 12.4 % [facility] Comment: Interpretive Data Percent cell count reference ranges are not reported, since discordance with absolute values may lead to misinterpretation of CBC data. Current Interpretive Data was last revised on 2017. Eosinophil pct 1.7 % [facility] Comment: Interpretive Data Percent cell count reference ranges are not reported, since discordance with absolute values may lead to misinterpretation of CBC data. Current Interpretive Data was last revised on 2017. Basophil pct 0.5 % [facility] Comment: Interpretive Data Percent cell count reference ranges are not reported, since discordance with absolute values may lead to misinterpretation of CBC data. Current Interpretive Data was last revised on 2017. Blood 04/08/2024 3:57 AM CDT 04/08/2024 4:25 AM CDT [facility] DO LAB BLOOD ORDERABLES Amanda l Result Performing Organization Address City/[facility]/ZIP Co de Phone Number [facility] [address] Department [place] [address] * Magnesium (04/08/2024 3:57 AM CDT) Magnesium 2.2 1.4 - 2.5 mg/dL Blood 04/08/2024 3:57 AM CDT 04/08/2024 4:25 AM CDT [facility] Sm[facility] Ahmad DO LAB BLOOD ORDERABLES Amanda l Result Performing Organization Address City/[facility]/ZIP Co de Phone Number [facility] [address] Department [place] [address] * (ABNORMAL) Phosphorus (04/08/2024 3:57 AM CDT) Phosphorus, pl 4.6(H) 2.3 - 4.5 mg/dL Blood 04/08/2024 3:57 AM CDT 04/08/2024 4:25 AM CDT Bazgha Smooth Ahmad DO LAB BLOOD ORDERABLES Amanda l Result [facility] [address] [place] [address] * (ABNORMAL) Comprehensive metabolic panel (04/08/2024 3:57 AM CDT) Pathologist [facility] Sodium 137 135 - 145 mmol/L Potassium, pl 3.1(L) 3.3 - 4.9 mmol/L [facility] Chloride 100 97 - 110 mmol/L [facility] CO2 27 22 - 32 mmol/L [facility] Anion gap 10 2 - 15 mmol/L [facility] BUN 5(L) 6 - 25 mg/dL [facility] Creatinine 0.73 0.60 - 1.10 mg/dL [facility] Glucose 117 70 - 199 mg/dL [facility] Comment: Interpretive Data Fasting [...] 2022. Calcium 9.3 8.5 - 10.3 mg/dL [facility] Bilirubin, total 0.5 0.1 - 1.2 mg/dL [facility] Protein, pl 6.8 6.5 - 8.5 g/dL [facility] Albumin 3.9 3.5 - 5.0 g/dL [facility] Alk phos 82 40 - 130 Units/L [facility] ALT 26 7 - 45 Units/L [facility] AST 19 10 - 45 Units/L [facility] Blood 04/08/2024 3:57 AM CDT 04/08/2024 4:25 AM CDT [facility] DO LAB BLOOD ORDERABLES Amanda l Result [facility] [address] Department [place] [employer] [place] [address] * CBC with auto differential (04/08/2024 3:57 AM CDT) WBC 8.4 3.8 - 9.9 K/cumm Hgb 13.2 11.9 - 15.5 g/dL [facility] Hct 40.2 35.6 - 45.5 % [facility] Plt 284 150 - 400 K/cumm [facility] MPV 11.2 9.1 - 12.3 fL [facility] RBC 4.52 3.90 - 5.20 M/cumm [facility] MCV 88.9 81.3 - 96.4 fL [facility] MCH 29.2 27.1 - 33.3 pg [facility] MCHC 32.8 32.3 - 35.7 g/dL [facility] RDW CV 13.7 11.1 - 14.9 % [facility] RDW SD 44.3 35.7 - 48.1 fL [facility] NRBC abs 0.00 0.00 - 0.01 K/cumm [facility] Blood 04/08/2024 3:57 AM CDT 04/08/2024 4:25 AM CDT Baza Smooth Ahmad DO LAB BLOOD ORDERABLES Amanda l Result [facility] [address] [place] [address] * XR Chest 1 View (04/07/2024 2:48 [...] PA Authorized by: Fernando Clinton PA ?? Jeremiah Protocol: RN Notified of Procedure: yes ?? Informed consent: ??Risks, benefits, alternatives discussed and patient/automotive sales representative/guardian agrees and accepts Patient's stated [...] 7:33 AM CDT 04/07/2024 7:44 AM CDT [facility] Smooth Ahmad DO LAB BLOOD ORDERABLES Amanda l Result Performing Organization Address City/[facility]/ZIP Co de Phone Number [facility] [address] [place] [address] * Magnesium (04/07/2024 7:33 AM CDT) Magnesium 2.0 1.4 - 2.5 mg/dL Blood 04/07/2024 7:33 AM CDT 04/07/2024 7:44 AM CDT [facility] Sm[facility] Ahmad DO LAB BLOOD ORDERABLES Amanda l Result [facility] [address] [facility] [place], [place] [id number] * Phosphorus (04/07/2024 7:33 AM CDT) Phosphorus, pl 3.8 2.3 - 4.5 mg/dL Blood 04/07/2024 7:33 AM CDT 04/07/2024 7:44 AM CDT us Bazfito Smooth Ahmad LAB BLOOD ORDERABLES Amanda pierce Result [facility] [facility] [address] [place] [address] * (ABNORMAL) Comprehensive metabolic panel (04/07/2024 7:33 AM CDT) Sodium 138 135 - 145 mmol/L Potassium, pl 3.0(L) 3.3 - 4.9 mmol/L [facility] Chloride 92(L) 97 - 110 mmol/L [facility] CO2 32 22 - 32 mmol/L [facility] Anion gap 14 2 - 15 mmol/L [facility] BUN 7 6 - 25 mg/dL [facility] Creatinine 0.75 0.60 - 1.10 mg/dL [facility] Glucose 135 70 - 199 mg/dL [facility] Comment: Interpretive Data Fasting [...] 2022. Calcium 9.6 8.5 - 10.3 mg/dL [facility] Bilirubin, total 0.6 0.1 - 1.2 mg/dL [facility] Protein, pl 7.2 6.5 - 8.5 g/dL [facility] Albumin 4.0 3.5 - 5.0 g/dL [facility] Alk phos 93 40 - 130 Units/L [facility] ALT 28 7 - 45 Units/L [facility] AST 19 10 - 45 Units/L [facility] Blood 04/07/2024 7:33 AM CDT 04/07/2024 7:44 AM CDT Bazgha Smooth Ahmad DO LAB BLOOD ORDERABLES Amanda l Result Performing Organization Address City/[facility]/ZIP Co de Phone Number [facility] [address] [facility] [place] [address] * (ABNORMAL) Calprotectin, fecal (04/06/2024 10:02 PM CDT) Calprotectin, fecal 221(H) <50.0 (Normal) mcg/g [place] [facility] Comment: Interpretation: Abnormal (>120 mcg/g) Test Performed by: [facility] [address] [place], [place] [id number] Pumping Plant Operator: Ronaldo Delgado Ph.D.; CLIA# [id number] Stool 04/06/2024 10:0 2 PM CDT 04/06/2024 10:02 PM CDT Bazgha Smooth Ahmad DO LAB BODY FLUIDS AND STOOL S ORDERABLES Final Result Performing Organization Address [facility] Co de Phone Number [facility] [address] [facility] [place] [address] [facility] * XR Abdomen Ap 1 [...] LAB BLOOD ORDERABLES Amanda l Result [facility] [address] [place] [address] * eGFR (04/06/2024 10:53 AM CDT) eGFR [...] ORDERABLES Amanda l Result Performing Organization Address City/[facility]/ZIP Co de Phone Number [facility] [address] [facility] [employer] [place], [place] [id number] * Magnesium (04/06/2024 10:53 AM CDT) Magnesium 1.8 1.4 - 2.5 mg/dL Blood 04/06/2024 10:5 3 AM CDT 04/06/2024 11:04 AM CDT Nicholas Smooth Ahmad DO LAB BLOOD ORDERABLES Amanda l Result Performing Organization Address [facility] Co de Phone Number [facility] [address] [facility] [place] [address] * Phosphorus (04/06/2024 10:53 AM CDT) Phosphorus, pl 2.9 2.3 - 4.5 mg/dL Blood 04/06/2024 10:5 3 AM CDT 04/06/2024 11:04 AM CDT Joannea Smooth Ahmad DO LAB BLOOD ORDERABLES Amanda l Result Performing Organization Address [facility] Co de Phone Number [facility] [address] [facility] [place] [address] * (ABNORMAL) Comprehensive metabolic panel (04/06/2024 10:53 AM CDT) Sodium 136 135 - 145 mmol/L Potassium, pl 3.3 3.3 - 4.9 mmol/L [facility] Chloride 95(L) 97 - 110 mmol/L [facility] CO2 28 22 - 32 mmol/L [facility] Anion gap 13 2 - 15 mmol/L [facility] BUN 5(L) 6 - 25 mg/dL [facility] Creatinine 0.65 0.60 - 1.10 mg/dL [facility] Glucose 136 70 - 199 mg/dL [facility] Comment: Interpretive Data Fasting [...] 2022. Calcium 9.8 8.5 - 10.3 mg/dL [facility] Bilirubin, total 0.5 0.1 - 1.2 mg/dL [facility] Protein, pl 7.7 6.5 - 8.5 g/dL [facility] Albumin 4.4 3.5 - 5.0 g/dL [facility] Alk phos 93 40 - 130 Units/L [facility] ALT 38 7 - 45 Units/L [facility] AST 20 10 - 45 Units/L [facility] Blood 04/06/2024 10:5 3 AM CDT 04/06/2024 11:04 AM CDT us Nicholas Smooth Ahmad DO LAB BLOOD ORDERABLES Amanda l Result [facility] [address] [place] [address] * (ABNORMAL) Beta-hydroxybutyrate (04/05/2024 5:36 PM CDT) Beta-Hydroxybut yrate 1.9(H) <=0.5 mmol/L Blood 04/05/2024 5:36 PM CDT 04/05/2024 5:43 PM CDT [facility] DO LAB BLOOD ORDERABLES Amanda l Result [facility] [address] [facility] [place] [address] * Lactate (04/05/2024 5:36 PM CDT) Pathologist [facility] Lactate 0.9 0.7 - 2.0 mmol/L Blood 04/05/2024 5:36 PM CDT 04/05/2024 5:42 PM CDT [facility] Garibayd DO LAB BLOOD ORDERABLES Amanda l Result Performing Organization Address City/[facility]/ZIP Co de Phone Number [facility] [address] Department [place] [address] * Glycohemoglobin A1C - Add on lab test (04/05/2024 1:43 PM CDT) Pathologist [facility] Acceptable Yes Blood 04/05/2024 1:43 PM CDT 04/05/2024 1:43 PM CDT Narrative [facility] - 04/05/2024 1:43 PM CDT Name of Test->Glycohemoglobin A1C [facility] Ahmad DO LAB BLOOD ORDERABLES Amanda l Result [facility] [address] Department [place] [address] * (ABNORMAL) Edwin-Montoya virus (EBV) antibody panel Blood (04/05/2024 10:47 AM CDT) EBV nuclear Ab Positive(A) Negative Comment: Indicates the presence of detectable IgG antibody to EBV Nuclear Antigen. Testing performed by: [facility], [address] [place]., [address] EBV VCA IgG Positive(A) Negative [facility] Comment: Indicates the presence of antibody; 90% of the adult population will have been infected with EBV sometime in the past. Testing performed by: [facility], [address] [place]., [address] EBV VCA IgM Negative Negative [facility] Comment: No detectable IgM antibody to EBV-VCA. ??A negative result indicates no current infection with EBV. If clinical suspicion of acute EBV infection is present, testing should be repeated after one week. Testing performed by: [facility], [address] [place]., [address] EBV interp Past Infection [facility] Comment:Testing performed by : [facility], [address] [place]., [address] Blood 04/05/2024 10:4 7 AM CDT 04/05/2024 9:02 PM CDT Bazgha Smooth Ahmad DO LAB MICROBIOLOGY - GENERA L ORDERABLES Final Result [facility] [address] Department [place] [address] * (ABNORMAL) CMV, IgG and IgM antibodies [...] or recent CMV infection. Testing performed by: [facility], [address] [place]., [address] CMV IgM Negative Negative [facility] Comment: Interpretive Data Negative - [...] (primary, reactivation, or reinfection). Testing performed by: [facility], [address] [place]., [address] Blood 04/05/2024 10:4 7 AM CDT 04/05/2024 9:02 PM CDT Nicholas Saba DO LAB MICROBIOLOGY - GENERA L ORDERABLES Final Result Performing Organization Address City/[facility]/ZIP Co de Phone Number [facility] [address] Department [place], [place] [phone] * Hepatic function panel - Add on lab test (04/05/2024 9:46 AM CDT) Acceptable Yes Blood 04/05/2024 9:46 AM CDT 04/05/2024 9:46 AM CDT Narrative [facility] - 04/05/2024 9:46 AM CDT Name of Test->Hepatic function panel Jeanie GONZALEZ LAB BLOOD ORDERABLES Final Re sult Performing Organization Address City/[facility]/ZIP Co de Phone Number [facility] [address] Department [employer] [place], [place] [phone] * Phosphorus - Add on lab test (04/05/2024 9:10 AM CDT) Acceptable Yes Blood 04/05/2024 9:10 AM CDT 04/05/2024 9:10 AM CDT Narrative [facility] - 04/05/2024 9:10 AM CDT Name of Test->Phosphorus [facility] Garibayd DO LAB BLOOD ORDERABLES Amanda l Result Performing Organization Address [facility] Co de Phone Number [facility] [address] [place] [address] * Magnesium - Add on lab test (04/05/2024 9:10 AM CDT) Pathologist [facility] Acceptable Yes Blood 04/05/2024 9:10 AM CDT 04/05/2024 9:10 AM CDT Narrative [facility] - 04/05/2024 9:10 AM CDT Name of Test->Magnesium [facility] LAB BLOOD ORDERABLES Amanda l Result Performing Organization Address [facility] de Phone Number [facility] [address] [place] [address] * (ABNORMAL) Hepatic function panel (04/05/2024 6:59 AM CDT) [facility] Bilirubin, total 0.5 0.1 - 1.2 mg/dL Bilirubin, direct 0.2 0.1 - 0.3 mg/dL [facility] Protein, pl 7.4 6.5 - 8.5 g/dL [facility] Albumin 4.2 3.5 - 5.0 g/dL [facility] Alk phos 87 40 - 130 Units/L [facility] ALT 48(H) 7 - 45 Units/L [facility] AST 33 10 - 45 Units/L [facility] Blood 04/05/2024 6:59 AM CDT 04/05/2024 7:27 AM CDT [facility] DO LAB BLOOD ORDERABLES Amanda l Result Performing Organization Address [facility]/State/ZIP Co de Phone Number [facility] [address] [facility] [employer] [place], [place] [phone] * Magnesium (04/05/2024 6:59 AM CDT) [facility] Magnesium 1.9 1.4 - 2.5 mg/dL Blood 04/05/2024 6:59 AM CDT 04/05/2024 7:27 AM CDT [facility] Smooth Ahmad DO LAB BLOOD ORDERABLES Amanda l Result Performing Organization Address [facility] Co de Phone Number [facility] [address] [facility] [place] [address] * (ABNORMAL) Phosphorus (04/05/2024 6:59 AM CDT) [facility] Phosphorus, pl 1.4(L) 2.3 - 4.5 mg/dL Comment:Spoke to: Loretta (RN ) @ 1009 Blood 04/05/2024 6:59 AM CDT 04/05/2024 7:27 AM CDT [facility] Smooth Ahmad DO LAB BLOOD ORDERABLES Amanda l Result Performing Organization Address [facility] Co de Phone Number [facility] [address] [facility] [employer] [place], [place] [phone] * eGFR (04/05/2024 6:59 AM CDT) [facility] eGFR >90 >=60 mL/min/1. 73 m2 Comment: [...] DO LAB BLOOD ORDERABLES Amanda l Result [facility] [address] [place] [address] * (ABNORMAL) Basic metabolic panel (04/05/2024 6:59 AM CDT) Sodium 136 135 - 145 mmol/L Potassium, pl 3.4 3.3 - 4.9 mmol/L [facility] Chloride 99 97 - 110 mmol/L [facility] CO2 21(L) 22 - 32 mmol/L [facility] Anion gap 16(H) 2 - 15 mmol/L [facility] BUN 11 6 - 25 mg/dL [facility] Creatinine 0.73 0.60 - 1.10 mg/dL [facility] Glucose 104 70 - 199 mg/dL [facility] Comment: Interpretive Data Fasting [...] 2022. Calcium 9.2 8.5 - 10.3 mg/dL [facility] Blood 04/05/2024 6:59 AM CDT 04/05/2024 7:27 AM CDT [facility] DO LAB BLOOD ORDERABLES Amanda l Result Performing Organization Address City/[facility]/ZIP Co de Phone Number [facility] [address] Department [place], [place] [phone] * C. difficile testing Stool (04/05/2024 5:32 AM CDT) [facility] Result Negative Negative Toxin Result Negative Negative [facility] C. diff result Negative, free toxin Negative, free toxin [facility] C. diff interp Negative for toxigenic Clostridioides (Clostridium) difficile. Analysis was performed using a glutamate dehydrogenase antigen detection assay combined with a C. difficile toxin detection assay. [facility] Stool 04/05/2024 5:32 AM CDT 04/05/2024 5:46 AM CDT [facility] Ahmad LAB MICROBIOLOGY - GENERA L ORDERABLES Final Result Performing Organization Address City/[facility]/ZIP Co de Phone Number [facility] [address] Department [place] [employer] [address] * Phosphorus - Add on lab test (2024 1:56 PM CDT) Pathologist [facility] Acceptable Yes Blood 2024 1:56 PM CDT 2024 1:56 PM CDT Narrative [facility] - 2024 1:56 PM CDT Name of Test->Phosphorus Nicholas Smooth Ahmad DO LAB BLOOD ORDERABLES Amanda l Result [facility] [address] [facility] [employer] [place], [place] [phone] * Magnesium - Add on lab test (2024 1:56 PM CDT) Acceptable Yes Blood 2024 1:56 PM CDT 2024 1:56 PM CDT Narrative [facility] - 2024 1:56 PM CDT Name of Test->Magnesium Masoodlayla Smooth Ahmad DO LAB BLOOD ORDERABLES Amanda l Result Performing Organization Address [facility] Co de Phone Number [facility] [address] [facility] [employer] [place], [place] [phone] * Hepatic function panel - Add on lab test (2024 11:51 AM CDT) Acceptable Yes Blood 2024 11:5 1 AM CDT 2024 11:51 AM CDT Narrative [facility] - 2024 11:51 AM CDT Name of Test->Hepatic function panel Jeanie GONZALEZ LAB BLOOD ORDERABLES Final Re sult Performing Organization Address City/[facility]/ZIP Co de Phone Number [facility] [address] Department [employer] [place], [place] [id number] * Magnesium (2024 7:13 AM CDT) Magnesium 2.2 1.4 - 2.5 mg/dL Blood 2024 7:13 AM CDT 2024 7:56 AM CDT Nicholas Smooth Ahmad DO LAB BLOOD ORDERABLES Amanda l Result Performing Organization Address City/[facility]/ZIP Co de Phone Number [facility] [address] Department [place] [address] * Phosphorus (2024 7:13 AM CDT) Pathologist [facility] Phosphorus, pl 4.2 2.3 - 4.5 mg/dL Blood 2024 7:13 AM CDT 2024 7:56 AM CDT [facility] Sm[facility] Ahmad DO LAB BLOOD ORDERABLES Amanda l Result Performing Organization Address [facility] Co de Phone Number [facility] [address] [facility] [place] [address] * (ABNORMAL) Hepatic function panel (2024 7:13 AM CDT) Pathologist [facility] Bilirubin, total 0.4 0.1 - 1.2 mg/dL Bilirubin, direct <0.2 0.1 - 0.3 mg/dL [facility] Comment:Moderately Hemolyzed Specimen Protein, pl 7.7 6.5 - 8.5 g/dL [facility] Albumin 4.1 3.5 - 5.0 g/dL [facility] Alk phos 94 40 - 130 Units/L [facility] ALT 58(H) 7 - 45 Units/L [facility] Comment:Moderately Hemolyzed Specimen AST 57(H) 10 - 45 Units/L [facility] Comment:Moderately Hemolyzed Specimen Blood 2024 7:13 AM CDT 2024 7:56 AM CDT Masoodlayla Smooth Ahmad DO LAB BLOOD ORDERABLES Amanda l Result Performing Organization Address [facility] Co de Phone Number [facility] [address] Department [place] [address] * eGFR (2024 7:13 AM CDT) Pathologist [facility] eGFR >90 >=60 mL/min/1. 73 m2 Comment: [...] LAB BLOOD ORDERABLES Amanda l Result [facility] [address] [place] [address] * (ABNORMAL) Basic metabolic panel (2024 7:13 AM CDT) Pathologist [facility] Sodium 135 135 - 145 mmol/L Potassium, pl 4.5 3.3 - 4.9 mmol/L [facility] Comment:Hemolyzed; potassium value may be falsely elevated by as much as 0.6 - 1.0 mmol/L. Suggest redraw and reanalysis Chloride 97 97 - 110 mmol/L [facility] CO2 22 22 - 32 mmol/L [facility] Anion gap 16(H) 2 - 15 mmol/L [facility] BUN 10 6 - 25 mg/dL [facility] Creatinine 0.74 0.60 - 1.10 mg/dL [facility] Glucose 98 70 - 199 mg/dL [facility] Comment: Interpretive Data Fasting [...] 2022. Calcium 9.8 8.5 - 10.3 mg/dL [facility] Blood 2024 7:13 AM CDT 2024 7:56 AM CDT Nicholas Saba DO LAB BLOOD ORDERABLES Amanda l Result [facility] [address] [place] [address] * CT Abdomen Pelvis W Contrast (04/03/2024 [...] LAB BLOOD ORDERABLES Amanda pierce Result [facility] [address] [place] [address] * (ABNORMAL) Basic metabolic panel (04/03/2024 11:19 AM CDT) Sodium 136 135 - 145 mmol/L Potassium, pl 4.0 3.3 - 4.9 mmol/L [facility] Chloride 99 97 - 110 mmol/L [facility] CO2 20(L) 22 - 32 mmol/L [facility] Anion gap 17(H) 2 - 15 mmol/L [facility] BUN 11 6 - 25 mg/dL [facility] Creatinine 0.81 0.60 - 1.10 mg/dL [facility] Glucose 97 70 - 199 mg/dL [facility] Comment: Interpretive Data Fasting [...] 2022. Calcium 9.5 8.5 - 10.3 mg/dL [facility] Blood 04/03/2024 11:1 9 AM CDT 04/03/2024 11:56 AM CDT Bazgha Smooth Ahmad DO LAB BLOOD ORDERABLES Amanda l Result [facility] [address] [place] [address] * MRI Brain W WO Contrast (04/02/2024 [...] by: Mario Nunez M.D. Bazgha Smooth Ahmad [facility] MRI PROCEDURES Final Result * Respiratory pathogen panel Nasopharyngeal (04/02/2024 12:54 PM CDT) Pathologist [facility] Influenza A RNA Not Detected Not Detected [facility] Influenza B RNA Not Detected Not Detected [facility] RSV RNA Not Detected Not Detected [facility] COVID-19 RNA Not Detected Not Detected [facility] Coronavirus 229E RNA Not Detected Not Detected [facility] Coronavirus HKU1 RNA Not Detected Not Detected [facility] Coronavirus NL63 RNA Not Detected Not Detected [facility] Coronavirus OC43 RNA Not Detected Not Detected [facility] Adenovirus DNA Not Detected Not Detected [facility] Metapneumovirus RNA Not Detected Not Detected [facility] Rhinovirus/Enterov irus RNA Not Detected Not Detected [facility] Parainfluenza 1 RNA Not Detected Not Detected [facility] Parainfluenza 2 RNA Not Detected Not Detected [facility] Parainfluenza 3 RNA Not Detected Not Detected [facility] Parainfluenza 4 RNA Not Detected Not Detected [facility] B. pertussis DNA Not Detected Not Detected [facility] B. parapertussis DNA Not Detected Not Detected [facility] C. pneumoniae DNA Not Detected Not Detected [facility] M. pneumoniae DNA Not Detected Not Detected [facility] Comment: Interpretive Data The [place] FilmArray Respiratory Panel (RP2.1) assay is a [...] assay has FDA clearance for testing of AGRICULT[employer] PURCHASING AGENT swabs. ??The performance characteristics of this assay have been determined by [facility]. Current interpretive data was last revised on 2021. Nasopharyngeal 04/02/2024 12 :54 PM CDT 04/02/2024 1:14 PM CDT Narrative [facility] - 04/02/2024 2:06 PM CDT Is the Patient experiencing symptoms consistent with COVID?->Yes Surveillance testing for transplant patient?->No Bazgha Smooth Ahmad DO LAB MICROBIOLOGY - GENERA L ORDERABLES Final Result Performing Organization Address [facility]/ZIP Co de Phone Number [facility] [address] [facility] [place] [address] MBC * Cortisol - Add on lab test (04/02/2024 10:42 AM CDT) Acceptable Yes Blood 04/02/2024 10:4 2 AM CDT 04/02/2024 10:42 AM CDT Narrative [facility] - 04/02/2024 10:43 AM CDT Name of Test->Cortisol Joannea Smooth Ahmad DO LAB BLOOD ORDERABLES Amanda l Result Performing Organization Address [facility] Co de Phone Number [facility] [address] [facility] [place] [address] * TSH reflex Free T4 - Add on lab test (04/02/2024 10:42 AM CDT) Acceptable Yes Blood 04/02/2024 10:4 2 AM CDT 04/02/2024 10:42 AM CDT Narrative [facility] - 04/02/2024 10:43 AM CDT Name of Test->TSH reflex Free T4 Joannea Smooth Ahmad DO LAB BLOOD ORDERABLES Amanda l Result Performing Organization Address City/[facility]/ZIP Co de Phone Number [facility] [address] [facility] [place] [address] * US Abdomen Limited (04/02/2024 8:01 AM [...] CDT Comment:Rule out H Pylori N[facility]ative [facility] - 04/02/2024 10:59 AM CDT [address] ??[address] Tele: ?? Kisha Parks MD - Calibration Laboratory Technician Note to Patients: This report may contain [...] PATHOLOGY REPORT Patient Name: ??ÁNGELA IBRAHIM Address: ??[address] [place] [address] ??[id number] Gender: ??F : ??1985 (Age: 38) Service: ??Medical Location: ??[id number], ?? Hospital #: ??[id number] Patient [place] Accession #: ? [id number] Taken: ? 04/01/2024 Received ? 04/01/2024 Reported: [...] H&E stained sections. Clerical Data Follows A; 03800 REPORT IMAGES AND/OR SCANNED DOCUMENTS ONLY VIEWABLE IN PDF FORMAT The immunohistochemical test(s) cited in this report, if any, was developed and its performance characteristics determined by [facility] Pathology Department. ??It has not been cleared or approved by the U.S. Food and Drug Administration. ??The FDA has determined that such clearance or approval is not necessary. ??This test is used for clinical purposes. ??It should not be regarded as investigational or for research. ??[facility] is certified under the Clinical [...] LAB PATHOLOGY ORDER SHARON Final Result [facility] [address] [place] [address] * EGD (04/01/2024 3:02 PM CDT) Anatomical Region Laterality Modality Other Narrative Procedure Note Bruno Cobb MD - 04/01/2024 3:02 PM CDT ENDOSCOPY LAB Patient Name: Ángela Ibrahim Procedure Date: 04/01/2024 3:02 PM Admit Type: Inpatient Room: [facility] Date of : 1985 Instrument Name: [id number] [...] hCG, urine (04/01/2024 2:05 PM CDT) Pathologist [facility] HCG, ur, POC Negative Negative Lot Number [id number] QC Backgroud Clear Acceptable QC Control Line Acceptable Urine 04/01/2024 2:05 PM CDT Bruno Cobb MD POINT OF CARE TEST ORDERABLES Final Result * Hemoglobin A1c (04/01/2024 7:09 AM CDT) Pathologist [facility] Hgb A1C 5.6 4.0 - 5.6 % Estimated Average Glucose 114 mg/dL [facility] Comment: The ADA recommends reporting an estimated Average Glucose (eAG) with all Hemoglobin A1c results using the equation derived from a study of 507 normal and diabetic adults. ??Minority populations were underrepresented and children were not included. ?? (Diabetes Care 31:9276-1063, 2008). ??The eAG is not equivalent to a fasting glucose. Blood 04/01/2024 7:09 AM CDT 04/01/2024 8:02 AM CDT Joannea Smooth Ahmad DO LAB BLOOD ORDERABLES Amanda l Result Performing Organization Address City/[facility] Co de Phone Number [facility] [address] [facility] [place] [address] * Thyroid Function [place] Heart (04/01/2024 7:09 AM CDT) Pathologist [facility] TSH 1.85 0.30 - 4.20 mcIUnit/mL Blood 04/01/2024 7:09 AM CDT 04/01/2024 8:01 AM CDT [facility] DO LAB BLOOD ORDERABLES Amanda l Result Performing Organization Address [facility] Co de Phone Number [facility] [address] [facility] [place] [place] [address] * Cortisol (04/01/2024 7:09 AM CDT) Pathologist [facility] Cortisol 14.1 4.8 - 19.5 mcg/dl Blood 04/01/2024 7:09 AM CDT 04/01/2024 8:01 AM CDT [facility] DO LAB BLOOD ORDERABLES Amanda l Result Performing Organization Address [facility] Co de Phone Number [facility] [address] [facility] [place] [address] * eGFR (04/01/2024 7:09 AM CDT) Pathologist [facility] eGFR >90 >=60 mL/min/1. 73 m2 Comment: [...] MD LAB BLOOD ORDERABLES Fi nal Result [facility] [address] [place] [address] * Differential, auto (04/01/2024 7:09 AM CDT) [facility] Neutrophil abs 2.3 1.5 - 6.5 K/cumm Imm gran abs 0.0 0.0 - 0.1 K/cumm [facility] Lymphocyte abs 3.1 0.8 - 3.3 K/cumm [facility] Monocyte abs 0.6 0.2 - 0.8 K/cumm [facility] Eosinophil abs 0.3 0.0 - 0.5 K/cumm [facility] Basophil abs 0.0 0.0 - 0.1 K/cumm [facility] Neutrophil pct 36.6 % [facility] Comment: Interpretive Data Percent cell count reference ranges are not reported, since discordance with absolute values may lead to misinterpretation of CBC data. Current Interpretive Data was last revised on 2017. Imm gran pct 0.2 % [facility] Comment: Interpretive Data Percent cell count reference ranges are not reported, since discordance with absolute values may lead to misinterpretation of CBC data. Current Interpretive Data was last revised on 2017. Lymphocyte pct 49.4 % [facility] Comment: Interpretive Data Percent cell count reference ranges are not reported, since discordance with absolute values may lead to misinterpretation of CBC data. Current Interpretive Data was last revised on 2017. Monocyte pct 9.2 % [facility] Comment: Interpretive Data Percent cell count reference ranges are not reported, since discordance with absolute values may lead to misinterpretation of CBC data. Current Interpretive Data was last revised on 2017. Eosinophil pct 4.0 % [facility] Comment: Interpretive Data Percent cell count reference ranges are not reported, since discordance with absolute values may lead to misinterpretation of CBC data. Current Interpretive Data was last revised on 2017. Basophil pct 0.6 % [facility] Comment: Interpretive Data Percent cell count reference ranges are not reported, since discordance with absolute values may lead to misinterpretation of CBC data. Current Interpretive Data was last revised on 2017. Blood 04/01/2024 7:09 AM CDT 04/01/2024 8:02 AM CDT us Jonathan Scruggs MD LAB BLOOD ORDERABLES Fi nal Result [facility] [address] [place] [address] * Comprehensive metabolic panel (04/01/2024 7:09 AM CDT) [facility] Sodium 137 135 - 145 mmol/L Potassium, pl 4.0 3.3 - 4.9 mmol/L [facility] Chloride 105 97 - 110 mmol/L [facility] CO2 22 22 - 32 mmol/L [facility] Anion gap 10 2 - 15 mmol/L [facility] BUN 6 6 - 25 mg/dL [facility] Creatinine 0.75 0.60 - 1.10 mg/dL [facility] Glucose 71 70 - 199 mg/dL [facility] Comment: Interpretive Data Fasting [...] 2022. Calcium 8.9 8.5 - 10.3 mg/dL [facility] Bilirubin, total 0.4 0.1 - 1.2 mg/dL [facility] Protein, pl 6.5 6.5 - 8.5 g/dL [facility] Albumin 3.6 3.5 - 5.0 g/dL [facility] Alk phos 76 40 - 130 Units/L [facility] ALT 30 7 - 45 Units/L [facility] AST 25 10 - 45 Units/L [facility] Blood 04/01/2024 7:09 AM CDT 04/01/2024 8:01 AM CDT us Jonathan Scruggs MD LAB BLOOD ORDERABLES Fi nal Result [facility] [address] [place] [address] * CBC with auto differential (04/01/2024 7:09 AM CDT) [facility] WBC 6.3 3.8 - 9.9 K/cumm Hgb 12.5 11.9 - 15.5 g/dL [facility] Hct 38.2 35.6 - 45.5 % [facility] Plt 334 150 - 400 K/cumm [facility] MPV 10.7 9.1 - 12.3 fL [facility] RBC 4.30 3.90 - 5.20 M/cumm [facility] MCV 88.8 81.3 - 96.4 fL [facility] MCH 29.1 27.1 - 33.3 pg [facility] MCHC 32.7 32.3 - 35.7 g/dL [facility] RDW CV 13.2 11.1 - 14.9 % [facility] RDW SD 42.6 35.7 - 48.1 fL [facility] NRBC abs 0.00 0.00 - 0.01 K/cumm [facility] Blood 04/01/2024 7:09 AM CDT 04/01/2024 8:02 AM CDT Jonathan Scruggs MD LAB BLOOD ORDERABLES Fi nal Result [facility] [address] [place] [address] * Lipase - Add on lab test (03/31/2024 12:16 PM CDT) Acceptable Yes Blood 03/31/2024 12:1 6 PM CDT 03/31/2024 12:16 PM CDT Narrative [facility] - 03/31/2024 12:16 PM CDT Name of Test->Lipase Jonathan Scruggs MD LAB BLOOD ORDERABLES Fi nal Result [facility] [address] [place], [place] [id number] * Lipase (03/31/2024 6:56 AM CDT) Lipase 21 10 - 99 Units/L Blood 03/31/2024 6:56 AM CDT 03/31/2024 7:25 AM CDT us Jonathan Scruggs MD LAB BLOOD ORDERABLES Fi nal Result Performing Organization Address [facility] Co de Phone Number [facility] [address] [place] [address] * eGFR (03/31/2024 6:56 AM CDT) eGFR [...] DO LAB BLOOD ORDERABLES F inal Result [facility] [address] [place] [address] * (ABNORMAL) Differential, auto (03/31/2024 6:56 AM CDT) Neutrophil abs 3.8 1.5 - 6.5 K/cumm Imm gran abs 0.0 0.0 - 0.1 K/cumm [facility] Lymphocyte abs 4.8(H) 0.8 - 3.3 K/cumm [facility] Monocyte abs 0.9(H) 0.2 - 0.8 K/cumm [facility] Eosinophil abs 0.1 0.0 - 0.5 K/cumm [facility] Basophil abs 0.0 0.0 - 0.1 K/cumm [facility] Neutrophil pct 39.3 % [facility] Comment: Interpretive Data Percent cell count reference ranges are not reported, since discordance with absolute values may lead to misinterpretation of CBC data. Current Interpretive Data was last revised on 2017. Imm gran pct 0.2 % [facility] Comment: Interpretive Data Percent cell count reference ranges are not reported, since discordance with absolute values may lead to misinterpretation of CBC data. Current Interpretive Data was last revised on 2017. Lymphocyte pct 49.3 % [facility] Comment: Interpretive Data Percent cell count reference ranges are not reported, since discordance with absolute values may lead to misinterpretation of CBC data. Current Interpretive Data was last revised on 2017. Monocyte pct 9.5 % [facility] Comment: Interpretive Data Percent cell count reference ranges are not reported, since discordance with absolute values may lead to misinterpretation of CBC data. Current Interpretive Data was last revised on 2017. Eosinophil pct 1.3 % [facility] Comment: Interpretive Data Percent cell count reference ranges are not reported, since discordance with absolute values may lead to misinterpretation of CBC data. Current Interpretive Data was last revised on 2017. Basophil pct 0.4 % [facility] Comment: Interpretive Data Percent cell count reference ranges are not reported, since discordance with absolute values may lead to misinterpretation of CBC data. Current Interpretive Data was last revised on 2017. Blood 03/31/2024 6:56 AM CDT 03/31/2024 7:25 AM CDT Sravan Marsh [facility] BLOOD ORDERABLES F inal Result Performing Organization Address [facility] Co de Phone Number [facility] [address] [place] [address] * CBC with auto differential (03/31/2024 6:56 AM CDT) WBC 9.7 3.8 - 9.9 K/cumm Hgb 12.2 11.9 - 15.5 g/dL [facility] Hct 35.6 35.6 - 45.5 % [facility] Plt 339 150 - 400 K/cumm [facility] MPV 10.4 9.1 - 12.3 fL [facility] RBC 4.19 3.90 - 5.20 M/cumm [facility] MCV 85.0 81.3 - 96.4 fL [facility] MCH 29.1 27.1 - 33.3 pg [facility] MCHC 34.3 32.3 - 35.7 g/dL [facility] RDW CV 13.2 11.1 - 14.9 % [facility] RDW SD 41.1 35.7 - 48.1 fL [facility] NRBC abs 0.00 0.00 - 0.01 K/cumm [facility] Blood 03/31/2024 6:56 AM CDT 03/31/2024 7:25 AM CDT Sravan Marsh DO LAB BLOOD ORDERABLES F inal Result Performing Organization Address City/[facility]/ZIP Co de Phone Number [facility] [address] [place], [place] [id number] * (ABNORMAL) Basic metabolic panel (03/31/2024 6:56 AM CDT) Pathologist [facility] Sodium 137 135 - 145 mmol/L Potassium, pl 3.1(L) 3.3 - 4.9 mmol/L [facility] Chloride 103 97 - 110 mmol/L [facility] CO2 23 22 - 32 mmol/L [facility] Anion gap 11 2 - 15 mmol/L [facility] BUN 7 6 - 25 mg/dL [facility] Creatinine 0.76 0.60 - 1.10 mg/dL [facility] Glucose 80 70 - 199 mg/dL [facility] Comment: Interpretive Data Fasting [...] 2022. Calcium 8.5 8.5 - 10.3 mg/dL [facility] Blood 03/31/2024 6:56 AM CDT 03/31/2024 7:25 AM CDT Sravan Marsh DO LAB BLOOD ORDERABLES F inal Result [facility] [address] [place] [address] * POCT glucose (03/30/2024 11:07 PM CDT) [facility] Signature Glucose, POC 86 70 - 199 mg/dL Comment: For Glucose values <35 mg/dl when Hematocrit is >60 mg/dl,the test may not accurately detect significant hypoglycemia,and testing in the Laboratory should be considered if clinically indicated. Blood 03/30/2024 11:0 7 PM CDT 03/30/2024 11:07 PM CDT us Sravan Marsh DO LAB POCT ORDERABLES - DEVICE Final Result [facility] [address] [place] [address] * ECG 12 lead (03/30/2024 8:40 PM CDT) 03/30/2024 8:40 PM CDT Narrative [facility] - 03/31/2024 11:40 AM CDT Vent Rate: 57 bpm RR Interval: 1035 msec [place] Interval: 101 msec QRS Duration: 82 msec QT Interval: 418 msec QTC Interval: 413 msec P-R-T [place]: 48 - 32 - 49 degrees IMPRESSION: SINUS BRADYCARDIA WITH SHORT [place] INTERVAL BORDERLINE ECG Electronically Signed By: Yahir Miranda ??[facility] Card us Luma Payne [employer] ECG ORDERABLES Fin al Result Performing Organization Address [facility] Co de Phone Number [facility] * eGFR (03/30/2024 8:08 PM CDT) eGFR [...] NP LAB BLOOD ORDERABLE S Final Result [facility] [address] [place] [address] * Basic metabolic panel (03/30/2024 8:08 PM CDT) Sodium 141 135 - 145 mmol/L Potassium, pl 3.8 3.3 - 4.9 mmol/L [facility] Chloride 105 97 - 110 mmol/L [facility] CO2 23 22 - 32 mmol/L [facility] Anion gap 13 2 - 15 mmol/L [facility] BUN 8 6 - 25 mg/dL [facility] Creatinine 0.73 0.60 - 1.10 mg/dL [facility] Glucose 96 70 - 199 mg/dL [facility] Comment: Interpretive Data Fasting [...] 2022. Calcium 8.9 8.5 - 10.3 mg/dL [facility] Blood 03/30/2024 8:08 PM CDT 03/30/2024 8:21 PM CDT Luma Payne NP LAB BLOOD ORDERABLE S Final Result [facility] [address] [place] [address] * (ABNORMAL) Opiates Confirmation, Urine (03/30/2024 6:20 PM CDT) Codeine Conf, Ur Does Not Confirm CutOff 50 ng/mL Comment:Testing performed by : [facility], [address] [place]., [address] 6- Acetylmorphine Conf, Ur Does Not Confirm CutOff 10 ng/mL [facility] Comment:Testing performed by : [facility], [address] [place]., [address] Hydrocodone Conf, Ur Confirmed Positive(A) CutOff 50 ng/mL [facility] Comment:Testing performed by : [facility], [address] [place]., [address] Morphine Conf, Ur Does Not Confirm CutOff 50 ng/mL [facility] Comment:Testing performed by : [facility], [address] [place]., [address] Hydromorphone Conf, Ur Does Not Confirm CutOff 50 ng/mL [facility] Comment: Interpretive Data This test detects the presence or absence of drug compounds using LC Tandem mass spectrometry and is not intended to assess compliance with prescribed medications. While this test is highly specific, false positive and false negative results may occur in very rare circumstances. Contact the laboratory for consultation, if needed. Performance characteristics were determined by the [facility] in a manner consistent with CLIA requirement and has not been cleared or approved by the U.S. Food and Drug Administration. Current interpretive data was last revised 2020. Testing performed by: [facility], [address] [place]., [address] Urine 03/30/2024 6:20 PM CDT 03/30/2024 8:38 PM CDT Noman GONZALEZ LAB URINE ORDERABLES Final Re sult [facility] [address] [place] [address] * (ABNORMAL) Urinalysis, microscopic only (03/30/2024 6:20 PM CDT) WBC, ur 0-5 0 - 5 /HPF RBC, ur 3-5(A) 0 - 2 /HPF [facility] Epithelial cells, squamous, ur 1-5 0 - 5 /HPF [facility] Bacteria, ur Trace(A) [facility] Mucous, ur Present(A) [facility] Culture Reflex Comment Reflex conditions for urine culture (WBC >10) not met. [facility] Urine, clean voided 03/30/2024 6:20 PM CDT 03/30/2024 6:31 PM CDT Noman GONZALEZ LAB URINE ORDERABLES Final Re sult Performing Organization Address [facility] de Phone Number [facility] [address] [place] [address] * (ABNORMAL) Drugs of Abuse Screen, Urine [...] 2023. Barbiturates, ur Not Detected CutOff 200ng/mL [facility] Comment: Interpretive Data - Barbiturates: ??Samples containing greater than 200 ng/mL secobarbital or other cross-reacting barbiturate compounds are reported as positive. ??False positive and false negative results are possible. Confirmatory testing required for definitive results. Current Interpretive Data was last reviewed 2023. Benzodiazepines, ur Not Detected CutOff 100ng/mL [facility] Comment: Interpretive Data - Benzodiazepines: ??Samples containing greater than 100 ng/mL nordiazepam or other cross-reacting compounds are reported as positive. False positive and false negative results are possible. Confirmatory testing required for definitive results. Current Interpretive Data was last reviewed 2023. Cannabinoids, ur Screen Positive, presumptive (A) CutOff 50 ng/mL [facility] Comment: Interpretive Data - Cannabinoids: ??Samples containing greater than 50 ng/mL delta-9 THC -COOH or other cross-reacting compounds are reported as positive. ??False positive and false negative results are possible. ??Confirmatory testing required for definitive results. Current Interpretive Data was last reviewed 2023. Cocaine, ur Not Detected CutOff 150ng/mL [facility] Comment: Interpretive Data - Cocaine: ??Samples containing greater than 150 ng/mL benzoylecgonine or other cross-reacting compounds are reported as positive. False positive and false negative results are possible. Confirmatory testing required for definitive results. Current Interpretive Data was last reviewed 2023. Fentanyl, Ur Not Detected CutOff 5 ng/mL [facility] Comment: Interpretive Data - Fentanyl: ?? Samples containing greater than 5 ng/mL norfentanyl, fentanyl, or other cross-reacting fentanyl compounds are reported as positive. False positive and false negative results are possible. Confirmatory testing required for definitive results. Current Interpretive Data was last reviewed 2023. Methadone, ur Not Detected CutOff 300ng/mL [facility] Comment: Interpretive Data - Methadone: ??Samples containing greater than 300 ng/mL d,l-methadone or other cross-reacting compounds are reported as positive. ??False positive and false negative results are possible. Confirmatory testing required for definitive results. Current Interpretive Data was last reviewed 2023. Opiates, ur Screen Positive, presumptive (A) CutOff 300ng/mL [facility] Comment: Interpretive Data - Opiates: ??Samples containing greater than 300 ng/mL morphine or other cross-reacting compounds are reported as positive. ??False positive and false negative results are possible. Confirmatory testing required for definitive results. Current Interpretive Data was last reviewed 2023. Oxycodone, ur Not Detected CutOff 100ng/mL [facility] Comment: Interpretive Data - Oxycodone: ??Samples containing greater than 100 ng/mL oxycodone or other cross-reacting compounds are reported as ??positive. ??False positive and false negative results are possible. Confirmatory testing required for definitive results. Current Interpretive Data was last reviewed 2023. Phencyclidine, ur Not Detected CutOff 25 ng/mL [facility] Comment: Interpretive Data - Phencyclidine: ??Samples containing greater than 25 ng/mL phencyclidine or other cross-reacting compounds are reported as positive. ??False positive and false negative results are possible. Confirmatory testing required for definitive results. Current Interpretive Data was last reviewed 2023. Urine Creatinine 53 mg/dL [facility] Comment: Interpretive Data Urine Creatinine: < 10 mg/dL is extremely dilute = or > 10 but < 20 mg/dL is dilute = or > 20 mg/dL is normal Current Interpretive Data was last revised on 2017. Urine 03/30/2024 6:20 PM CDT 03/30/2024 6:30 PM CDT Narrative [facility] - 03/30/2024 6:58 PM CDT Drug of Abuse screening is performed by immunoassay for medical purposes only. ??This is not to be used for Pain Management purposes. ??If Detected, confirmation testing will be performed for Amphetamines, Cocaine, Fentanyl, Methadone, Opiates, Oxycodone or Phencyclidine. Noman GONZALEZ LAB URINE ORDERABLES Final Re sult [facility] [address] [place] [address] * (ABNORMAL) Urinalysis reflex to microscopic and culture Urine, clean voided (03/30/2024 6:20 PM CDT) Color, ur Straw Yellow Clarity, ur Clear Clear [facility] Specific gravity, ur 1.013 1.003 - 1.030 [facility] pH, urine 6.5 [facility] Comment: Interpretive Data ? Urine pH is affected by diet, medications, systemic acid-base disturbances, and renal tubular function. ??pH may affect urinary stone formation. ??For example, urine pH below 6.0 may help reduce the tendency for calcium phosphate stones and pH greater than 6.0 may reduce the tendency for uric acid stone formation. Source: [facility] Current Interpretive Data was last revised on 2017 Protein, ur ql Negative Negative [facility] Glucose, ur ql Negative Negative [facility] Ketones, ur 3+(A) Negative [facility] Bilirubin, ur Negative Negative [facility] Blood, ur 1+(A) Negative [facility] Urobilinogen, ur <2.0 <2.0 mg/dL [facility] Nitrite, ur Negative Negative [facility] Leukocyte esterase, ur Negative Negative [facility] UA reflex comment Reflex to microscopic UA will be performed. [facility] Urine, clean voided 03/30/2024 6:20 PM CDT 03/30/2024 6:22 PM CDT us Noman GONZALEZ LAB MICROBIOLOGY - GENERAL OR DERABLES Final Result Performing Organization Address [facility] Co de Phone Number [facility] [address] [place] [address] * Troponin T high-sensitivity 2-hour (03/30/2024 6:00 PM CDT) Trop T hs 6 <=14 ng/L Comment: Interpretive Data For further hscTnT resources including the diagnostic algorithm and an aid in interpretation, copy and paste this link: https://nrl.testcatalog.org/show/hsTrop Current Interpretive Data last revised 2020. Trop T hs delta 0 ng/L [facility] Trop T hs interp Insignificant [facility] Blood 03/30/2024 6:00 PM CDT 03/30/2024 6:06 PM CDT us Diaen Knox MD LAB BLOOD ORDERABLES Final Result Performing Organization Address [facility]/ZIP Co de Phone Number [facility] [address] Department [place] [address] * eGFR (03/30/2024 3:40 PM [...] LAB BLOOD ORDERABLES F inal Result [facility] [address] [place] [address] * (ABNORMAL) Differential, auto (03/30/2024 3:40 PM CDT) Neutrophil abs 9.8(H) 1.5 - 6.5 K/cumm Imm gran abs 0.1 0.0 - 0.1 K/cumm [facility] Lymphocyte abs 2.1 0.8 - 3.3 K/cumm [facility] Monocyte abs 0.8 0.2 - 0.8 K/cumm [facility] Eosinophil abs 0.0 0.0 - 0.5 K/cumm [facility] Basophil abs 0.1 0.0 - 0.1 K/cumm [facility] Neutrophil pct 76.6 % [facility] Comment: Interpretive Data Percent cell count reference ranges are not reported, since discordance with absolute values may lead to misinterpretation of CBC data. Current Interpretive Data was last revised on 2017. Imm gran pct 0.4 % [facility] Comment: Interpretive Data Percent cell count reference ranges are not reported, since discordance with absolute values may lead to misinterpretation of CBC data. Current Interpretive Data was last revised on 2017. Lymphocyte pct 16.3 % [facility] Comment: Interpretive Data Percent cell count reference ranges are not reported, since discordance with absolute values may lead to misinterpretation of CBC data. Current Interpretive Data was last revised on 2017. Monocyte pct 6.0 % [facility] Comment: Interpretive Data Percent cell count reference ranges are not reported, since discordance with absolute values may lead to misinterpretation of CBC data. Current Interpretive Data was last revised on 2017. Eosinophil pct 0.2 % [facility] Comment: Interpretive Data Percent cell count reference ranges are not reported, since discordance with absolute values may lead to misinterpretation of CBC data. Current Interpretive Data was last revised on 2017. Basophil pct 0.5 % [facility] Comment: Interpretive Data Percent cell count reference ranges are not reported, since discordance with absolute values may lead to misinterpretation of CBC data. Current Interpretive Data was last revised on 2017. Blood 03/30/2024 3:40 PM CDT 03/30/2024 4:03 PM CDT us Sravan Marsh DO LAB BLOOD ORDERABLES F inal Result [facility] [address] [place] [address] * Troponin T high-sensitivity series (baseline, 2hr, 4hr, 6hr) (03/30/2024 3:40 PM CDT) Pathologist [facility] Trop T hs <6 <=14 ng/L Comment: Interpretive Data For further hscTnT resources including the diagnostic algorithm and an aid in interpretation, copy and paste this link: https://nrl.testcatalog.org/show/hsTrop Current Interpretive Data last revised 2020. Blood 03/30/2024 3:40 PM CDT 03/30/2024 4:03 PM CDT Sravan Marsh DO LAB BLOOD ORDERABLES F inal Result [facility] [address] [place] [address] * (ABNORMAL) Comprehensive metabolic panel (03/30/2024 3:40 PM CDT) [facility] Sodium 138 135 - 145 mmol/L Potassium, pl 3.2(L) 3.3 - 4.9 mmol/L [facility] Chloride 96(L) 97 - 110 mmol/L [facility] CO2 21(L) 22 - 32 mmol/L [facility] Anion gap 21(H) 2 - 15 mmol/L [facility] BUN 10 6 - 25 mg/dL [facility] Creatinine 0.82 0.60 - 1.10 mg/dL [facility] Glucose 103 70 - 199 mg/dL [facility] Comment: Interpretive Data Fasting [...] 2022. Calcium 9.5 8.5 - 10.3 mg/dL [facility] Bilirubin, total 0.4 0.1 - 1.2 mg/dL [facility] Protein, pl 8.5 6.5 - 8.5 g/dL [facility] Albumin 4.7 3.5 - 5.0 g/dL [facility] Alk phos 98 40 - 130 Units/L [facility] ALT 39 7 - 45 Units/L [facility] AST 32 10 - 45 Units/L [facility] Blood 03/30/2024 3:40 PM CDT 03/30/2024 4:03 PM CDT Sravan Marsh DO LAB BLOOD ORDERABLES F inal Result [facility] [address] [place] [address] * (ABNORMAL) CBC with auto differential (03/30/2024 3:40 PM CDT) WBC 12.7(H) 3.8 - 9.9 K/cumm Hgb 14.7 11.9 - 15.5 g/dL [facility] Hct 43.4 35.6 - 45.5 % [facility] Plt 462(H) 150 - 400 K/cumm [facility] MPV 10.3 9.1 - 12.3 fL [facility] RBC 5.08 3.90 - 5.20 M/cumm [facility] MCV 85.4 81.3 - 96.4 fL [facility] MCH 28.9 27.1 - 33.3 pg [facility] MCHC 33.9 32.3 - 35.7 g/dL [facility] RDW CV 13.3 11.1 - 14.9 % [facility] RDW SD 41.2 35.7 - 48.1 fL [facility] NRBC abs 0.00 0.00 - 0.01 K/cumm [facility] Blood (Blood, Venous) 03/30/2024 3:40 PM CDT 03/30/2024 4:03 PM CDT Sravan Marsh DO LAB BLOOD ORDERABLES F inal Result [facility] [address] [place] [address] * XR Chest PA Lateral 2 Views [...] PM CDT) 03/30/2024 3:11 PM CDT Narrative [facility] - 03/31/2024 11:40 AM CDT Vent Rate: 62 bpm RR Interval: 955 msec [place] Interval: 101 msec QRS Duration: 86 msec QT Interval: 430 msec QTC Interval: 436 msec P-R-T [place]: 47 - 24 - 56 degrees IMPRESSION: SINUS RHYTHM WITH SHORT [place] INTERVAL POSSIBLE RIGHT VENTRICULAR CONDUCTION DELAY BORDERLINE ECG Electronically Signed By: Yahir Miranda ??[facility] Card us Sravan Natalia Marsh DO ECG ORDERABLES Final Result [facility] documented in this encounter Visit Diagnoses Diagnosis [...] on 03/30/24 at 2151, On hold since [place] 04/07/2024 at 1305 until manually unheld Given 04/03/2024 9:56 AM CDT 2 mg Given 04/02/2024 4:36 PM CDT 2 mg Given 04/02/2024 9:00 AM CDT 2 mg ondansetron (ZOFRAN) injection 4 mg 4 mg, intravenous, Administer over 2 Minutes, 3 times daily, First dose on [place] 03/31/24 at 1600 Given 04/08/2024 8: 22 AM CDT 4 mg Given 04/07/2024 8:01 PM CDT 4 mg Given 04/07/2024 2:59 PM CDT 4 mg prochlorperazine (COMPAZINE) injection 5 mg 5 mg, intravenous, Administer over 2 Minutes, Every 6 hours PRN, nausea, vomiting, 2nd line for n/v, Starting on [place] 04/07/24 at 2200 Given 04/07/2024 10:24 PM [...] Every 12 hours scheduled, First dose on [facility] 04/04/24 at 1415, Flush volume based on line type, size, and protocol. Given 04/08/2024 8:56 PM CDT 10 mL Given 04/08/2024 8:22 AM CDT 10 mL Given 04/07/2024 8:06 PM CDT 10 mL sodium chloride 0.9% flush 5-10 mL 5-10 mL, intra-catheter, Every 12 hours scheduled, First dose on [place] 04/07/24 at 1315, Flush volume based on [...] Thrombosis Prevention 2000 (Not Given - Provider: aHzel Stuart RN - Reason: Patient/family refused) 2055 [...] Every 12 hours scheduled, First dose on [place] 04/07/24 at 1315, Flush volume based on [...] documented as of this encounter Care Teams Mold Chipper Relationship Specialty Start Date End Date Maurice Duff Jr., MD [address] [address] PCP - General Family Medicine 03/11/24 documented as of this encounter
--- OUTSIDE RECORDS SUMMARY | 2024-07-30 16:07 | XMS_ITS | Encounter Summary ---
Author Organization [facility] Healthcare Address [address] [place] [address] Care Team Providers Care Waiter/Waitress Cafeteria Name Role Phone Avery Hidalgo DO Primary Care Provider [phone] Encounter Details Date Type Department Care Team (Late st Contact Info) Description 07/28/2020 11:50 AM TRAINING AND DEVELOPMENT HEAD Lab [id number] [place] [id number] Susana Valentine MD [address] [facility] [address] [place], [place] [id number] Fever, unspecified fever cause Discharge Disposition: Discharge [...] AND COVID-19 PCR Routine 07/28/2020 1:00 PM TRAINING AND DEVELOPMENT HEAD Fever, unspecified fever cause documented in this encounter Results * Influenza A/B and COVID-19 PCR ([facility] ONLY) Nasopharyngeal (07/28/2020 1:00 PM TRAINING AND DEVELOPMENT HEAD) COVID-19 RNA Not Detected [facility] Comment: Interpretive Data Testing performed by the [facility] Molecular Infectious Disease Laboratory. The 2019-Novel [...] last revised on 2019. Testing performed by: [facility], [address] [place] [address]., [address] Influenza A RNA Not Detected [facility] Comment:Testing performed by : [facility], [address] [place] [address], [address] Influenza B RNA Not Detected [facility] Comment: Interpretive Data Testing performed by the [facility] Molecular Infectious Disease Laboratory. This test is performed using the daniel Influenza A/B Assay. This is a real-time RT-PCR test for the qualitative detection of nucleic acid from Influenza A and Influenza B. This assay has been reviewed by the FDA for Emergency Use Authorization (EUA). The performance characteristics have been verified by the [facility]. Results should be interpreted in combination with clinical context and a negative result does not rule out infection. ?? Interpretive data last revised 2020. Testing performed by: [facility], [address] [place]., [address] First COVID-19 test? 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 Unknown [facility] Comment:Testing performed by : [facility], [address] [place] [address]., [address] Group care resident? No [facility] Comment:Testing performed by : [facility], [address] [place]., [address] Hospitalized? No [facility] Comment:Testing performed by : [facility], [address] [place]., [address] Is patient in ICU? No [facility] Comment:Testing performed by : [facility], [address] [place]., [address] Symptomatic as defined by CDC? Yes [facility] Comment:Testing performed by : [facility], [address] [facility], [address] Nasopharyngeal 07/28/2020 1: 00 PM TRAINING AND DEVELOPMENT HEAD 07/28/2020 8:32 PM TRAINING AND DEVELOPMENT HEAD Narrative [facility] - 07/29/2020 5:17 AM TRAINING AND DEVELOPMENT HEAD Patient is employed by/enrolled at:->[employer] Date of symptom onset->07/27/20 Susana Valentine MD LAB MICROBIOLOGY - GENERAL ORDERABLES Final Result [facility] [address] Department of Laboratories [place], [place] [id number] documented in this encounter Visit Diagnoses Diagnosis Fever, unspecified fever cause documented in this encounter Additional Health Concerns Infection Onset Date Last Indicated Resolved Time COVID: Suspected 07/28/2020 07/28/2020 07/29/2020 5:19 AM TRAINING AND DEVELOPMENT HEAD documented as of this encounter Care Teams Waiter/Waitress Cafeteria Relationship Specialty Start Date End Date Avery Hidalgo DO PCP - General 03/02/20 03/10/24 documented as of this encounter
--- OUTSIDE RECORDS SUMMARY | 2024-07-30 16:07 | XMS_ITS | Encounter Summary ---
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 - Employee Employer: [employer] Employee Facility: [facility] Does your job primarily involve providing care for bone marrow transplant patients? 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 [...] and test for symptoms Testing Site Location: [facility] Script A0 (Stay home and test) for symptomatic employees with no known or low risk exposure Given your symptoms, you should not come to work and will be referred for testing for COVID and Influenza A and B. ??? Please go to the employee testing site at [facility]. ??? You will be tested for both [...] Occupational Health will notify you and your military technology manager when you can return to work. ??? Should your test result positive, [facility] will work with you to identify any close contacts you may have had at work. [facility] will then alert your work contacts directly; you do not have to. Your supervisor of communications should consult with [facility] if they have any questions and before any communication with coworkers about a positive test. [facility] will help ensure that coworkers potentially at risk are notified and given appropriate advice without unnecessary disclosure of personal health information. ??? We will send you an email with self-quarantine instructions (see [facility] Guidance for At-Home Isolation: Employees). ??? You must follow any additional isolation or quarantine instructions provided to you from federal, state or local public health authorities. ??? You should let your supervisor of communications know that you will not be coming to work. Although the Call Center will email your supervisor of communications to confirm that you have been instructed not to come to work, it is still your responsibility to notify your supervisor of communications as you would for any other work absence. You should receive an email from the call center with these instructions. The email will come from [email or web address]; if you do not receive it, please check to see if your email gaming surveillance observer has automatically routed it to [email or web address]. PATIONAL PHYSICIAN documented in this encounter Plan of Treatment Not on file documented as of this encounter Results * Influenza A/B and COVID-19 PCR ([facility] ONLY) Nasopharyngeal (07/28/2020 1:00 PM OCCUPATIONAL PHYSICIAN) COVID-19 RNA Not Detected [facility] Comment: Interpretive Data Testing performed by the [facility] Molecular Infectious Disease Laboratory. The 2018-Novel Coronavirus [...] last revised on 2019. Testing performed by: [facility], [address] [place] [address]., [address] Influenza A RNA Not Detected [facility] Comment:Testing performed by : [facility], [address] [place] [address], [address] Influenza B RNA Not Detected [facility] Comment: Interpretive Data Testing performed by the [facility] Molecular Infectious Disease Laboratory. This test is performed using the daniel Influenza A/B Assay. This is a real-time RT-PCR test for the qualitative detection of nucleic acid from Influenza A and Influenza B. This assay has been reviewed by the FDA for Emergency Use Authorization (EUA). The performance characteristics have been verified by the [facility] Laboratory. Results should be interpreted in combination with clinical context and a negative result does not rule out infection. ?? Interpretive data last revised 2020. Testing performed by: [facility], [address] [place]., [address] First COVID-19 test? No [facility] Comment:Testing performed by : [facility], [address] [place] [address]., [address] Employeed in healthcare? Yes [facility] Comment:Testing performed by : [facility], [address] [place]., [address] status? Unknown [facility] Comment:Testing performed by : [facility], [address] [place] [address] [place]., [address] Group care resident? No [facility] Comment:Testing performed by : [facility], [address] [place]., [address] Hospitalized? No [facility] Comment:Testing performed by : [facility], [address] [facility], [address] Is patient in ICU? No [facility] Comment:Testing performed by : [facility], [address] [facility], [address] Symptomatic as defined by CDC? Yes [facility] Comment:Testing performed by : [facility], [address] [facility], [address] Nasopharyngeal 07/28/2020 1: 00 PM OCCUPATIONAL PHYSICIAN 07/28/2020 8:32 PM OCCUPATIONAL PHYSICIAN Narrative [facility] - 07/29/2020 5:17 AM OCCUPATIONAL PHYSICIAN Patient is employed by/enrolled at:->[employer] Date of symptom onset->07/27/20 us Susana Valentine MD LAB MICROBIOLOGY - GENERAL ORDERABLES Final Result [facility] [address] Department [place] [address] documented in this encounter Visit Diagnoses Diagnosis Fever, unspecified fever cause- Primary Fever, unspecified fever cause documented in this encounter Additional Health Concerns Infection Onset Date Last Indicated Resolved Time COVID: Suspected 07/28/2020 07/28/2020 07/29/2020 5:19 AM OCCUPATIONAL PHYSICIAN documented as of this encounter Care Teams Projection Camera Operator Relationship Specialty Start Date End Date Avery Hidalgo DO PCP - General 03/02/20 03/10/24 documented as of this encounter
--- OUTSIDE RECORDS SUMMARY | 2024-07-30 16:07 | XMS_ITS | Encounter Summary ---
Author Organization [facility] Healthcare Address [address] [place] [address] Care Team Providers Care Stoker Erector And Servicer Name Role Phone Omega Khanna MD, [facility] Primary Care Provider Reason for Referral * Consultation (Routine) - Pending Review Specialty Diagnoses / Procedures Referred By Contac t Referred To Contact Cardiology Diagnoses Chest pain, unspecified type Donald Sahu MD [address] [facility] [address] [place] [address] Phone: tel: fax: [facility] Cardiology [address] [facility] [address] [place] [address] Phone: tel: fax: Referral ID Status Reason Start Date Expiration Date Visits Requested Visits Authorized [id number] Pending Review Specialty Services Required 03/29/2024 04/28/2025 1 1 Question Answer Please select the performing region: [facility] [[id number]] Please select the performing department: [facility] [[id number]] # of visits: 1 Reason for Visit * Reason Comments Chest Pain Encounter Details Date Type Department Care Team (Late st Contact Info) Description 03/28/2024 11:20 PM CDT - 03/29/2024 3:00 AM CDT Emergency [facility] [address] [place] [address] Donald Sahu MD [address] [place] [address] Chest pain, unspecified type (Primary Dx) Discharge [...] Care Everywhere. * Chest Pain, Uncertain Cause (Montenegrin) documented in this encounter Medications at Time [...] exertion. History provided by: Patient and parent mixer and blender used: No Patient History: Patient Active Problem List Diagnosis Date Noted Chest pain 03/29/2024 Gastroesophageal reflux disease without esophagitis 03/11/2024 Bipolar disorder, in partial remission, most recent episode mixed (CMS/[facility]) ([facility]) 03/11/2024 PSVT (paroxysmal supraventricular tachycardia) ([facility]) 03/11/2024 Mixed hyperlipidemia 03/11/2024 Vaginal [...] Rate: 62 bpm RR Interval: 955 msec ND Interval: 103 msec QRS Duration: 88 msec QT Interval: 433 msec QTC Interval: 439 msec P-R-T Ferriday: 50 - 34 - 56 degrees IMPRESSION: SINUS RHYTHM WITH SHORT ND INTERVAL BORDERLINE ECG Electronically Signed By: Juan Sue MD mobap XR Chest 1 Vw Result Date: 03/28/2024 Narrative: EXAMINATION: 1 view chest radiograph Impression: Clear lungs. No pleural effusion or pneumothorax. Heart size and mediastinal contours are within normal limits. Electronically signed by: Russell Newsome M.D. CT Chest PE (CTA) W Contrast Order: [id number] Status: Preliminary result Visible to patient: No [...] A AD RADIOLOGIST, ANY QUESTIONS PLEASE CALL [phone] Interpreted by Interface, Radiology Results In on [...] in the ED Donald Sahu MD 03/28/24 [id number] documented in this encounter Plan of Treatment [...] T hs delta See Comment ng/L [facility] Comment:Inappropriate collec tion time to report a delta. Trop T hs pct delta See Comment % [facility] Comment:Inappropriate collec tion time to report a delta. Trop T hs interp See Comment [facility] Comment:Inappropriate collec tion time to report a delta. Blood 03/28/2024 11:2 8 PM CDT 03/28/2024 11:57 PM CDT us Cortes Bob MD LAB BLOOD ORDERABLES F inal Result [facility] [address] Department [place] [address] * eGFR (03/28/2024 8:17 PM [...] Sahu MD LAB BLOOD ORDERABLES Final Result [facility] [address] Department [place] [address] * (ABNORMAL) Differential, auto (03/28/2024 8:17 PM CDT) Neutrophil abs 11.1(H) 1.5 - 6.5 K/cumm Imm gran abs 0.1 0.0 - 0.1 K/cumm [facility] Lymphocyte abs 2.6 0.8 - 3.3 K/cumm [facility] Monocyte abs 1.2(H) 0.2 - 0.8 K/cumm [facility] Eosinophil abs 0.0 0.0 - 0.5 K/cumm [facility] Basophil abs 0.0 0.0 - 0.1 K/cumm [facility] Neutrophil pct 74.5 % [facility] Comment: Interpretive Data Percent cell count reference ranges are not reported, since discordance with absolute values may lead to misinterpretation of CBC data. Current Interpretive Data was last revised on 2017. Imm gran pct 0.4 % [facility] Comment: Interpretive Data Percent cell count reference ranges are not reported, since discordance with absolute values may lead to misinterpretation of CBC data. Current Interpretive Data was last revised on 2017. Lymphocyte pct 17.1 % [facility] Comment: Interpretive Data Percent cell count reference ranges are not reported, since discordance with absolute values may lead to misinterpretation of CBC data. Current Interpretive Data was last revised on 2017. Monocyte pct 7.7 % [facility] Comment: Interpretive Data Percent cell count reference ranges are not reported, since discordance with absolute values may lead to misinterpretation of CBC data. Current Interpretive Data was last revised on 2017. Eosinophil pct 0.1 % [facility] Comment: Interpretive Data Percent cell count reference ranges are not reported, since discordance with absolute values may lead to misinterpretation of CBC data. Current Interpretive Data was last revised on 2017. Basophil pct 0.2 % [facility] Comment: Interpretive Data Percent cell count reference ranges are not reported, since discordance with absolute values may lead to misinterpretation of CBC data. Current Interpretive Data was last revised on 2017. Blood 03/28/2024 8:17 PM CDT 03/28/2024 8:28 PM CDT Donald Sahu MD LAB BLOOD ORDERABLES Final Result Performing Organization Address [facility]/ZIP Co de Phone Number [facility] [address] Department [employer] [place], [place] [id number] * Troponin T high-sensitivity series (baseline, 2hr, 4hr, 6hr) (03/28/2024 8:17 PM CDT) [facility] Trop T hs <6 <=14 ng/L Comment: Interpretive Data For further hscTnT resources including the diagnostic algorithm and an aid in interpretation, copy and paste this link: https://[email or web address].testcatalog.org/show/[email or web address] Current Interpretive Data last revised 2020. Blood 03/28/2024 8:17 PM CDT 03/28/2024 8:28 PM CDT Donald Sahu MD LAB BLOOD ORDERABLES Final Result Performing Organization Address [facility] Co de Phone Number [facility] [address] Department [place] [address] * (ABNORMAL) Comprehensive metabolic panel (03/28/2024 8:17 PM CDT) Pathologist [facility] Sodium 140 135 - 145 mmol/L Potassium, pl 3.6 3.3 - 4.9 mmol/L [facility] Chloride 101 97 - 110 mmol/L [facility] CO2 21(L) 22 - 32 mmol/L [facility] Anion gap 18(H) 2 - 15 mmol/L [facility] BUN 13 6 - 25 mg/dL [facility] Creatinine 0.88 0.60 - 1.10 mg/dL [facility] Glucose 121 70 - 199 mg/dL [facility] Comment: Interpretive Data Fasting glucose [...] 2022. Calcium 9.8 8.5 - 10.3 mg/dL [facility] Bilirubin, total 0.6 0.1 - 1.2 mg/dL [facility] Protein, pl 8.0 6.5 - 8.5 g/dL [facility] Albumin 4.5 3.5 - 5.0 g/dL [facility] Alk phos 86 40 - 130 Units/L [facility] ALT 32 7 - 45 Units/L [facility] AST 30 10 - 45 Units/L [facility] Blood 03/28/2024 8:17 PM CDT 03/28/2024 8:28 PM CDT Donald Sahu MD LAB BLOOD ORDERABLES Final Result [facility] [address] Department [place] [address] * (ABNORMAL) CBC with auto differential (03/28/2024 8:17 PM CDT) WBC 14.9(H) 3.8 - 9.9 K/cumm Hgb 13.6 11.9 - 15.5 g/dL [facility] Hct 41.6 35.6 - 45.5 % [facility] Plt 422(H) 150 - 400 K/cumm [facility] MPV 10.3 9.1 - 12.3 fL [facility] RBC 4.73 3.90 - 5.20 M/cumm [facility] MCV 87.9 81.3 - 96.4 fL [facility] MCH 28.8 27.1 - 33.3 pg [facility] MCHC 32.7 32.3 - 35.7 g/dL [facility] RDW CV 14.0 11.1 - 14.9 % [facility] RDW SD 44.9 35.7 - 48.1 fL [facility] NRBC abs 0.00 0.00 - 0.01 K/cumm [facility] Blood (Blood, Venous) 03/28/2024 8:17 PM CDT 03/28/2024 8:28 PM CDT Donald Sahu MD LAB BLOOD ORDERABLES Final Result Performing Organization Address [facility] Co de Phone Number [facility] [address] Department [place] [address] * ECG 12 lead (03/28/2024 7:21 PM CDT) 03/28/2024 7:21 PM CDT Narrative [facility] Outsell - 03/29/2024 8:17 AM CDT Vent Rate: 52 bpm RR Interval: 1153 msec ND Interval: 104 msec QRS Duration: 90 msec QT Interval: 452 msec QTC Interval: 431 msec P-R-T Ferriday: 61 - 45 - 54 degrees IMPRESSION: SINUS BRADYCARDIA WITH SHORT ND INTERVAL BORDERLINE ECG Electronically Signed By: Juan Sue MD mobap Donald Sahu MD ECG ORDERABLES Final Resu lt Performing Organization Address City/[facility]/ZIP Co de Phone Number [facility] Outsell [facility] documented in this encounter Visit Diagnoses [...] 03/28/2024 documented in this encounter Care Teams Stoker Erector And Servicer Relationship Specialty Start Date End Date Maurice Duff Jr., MD [address] [id number] PCP - General Family Medicine 03/11/24 documented as of this encounter
--- OUTSIDE RECORDS SUMMARY | 2024-07-30 16:07 | XMS_ITS | Encounter Summary ---
Author Organization [facility] Healthcare Address [address] [place] [address] Care Team Providers Care Reprographics Technician Name Role Phone Avery Hidalgo DO Primary Care Provider [phone] Reason for Visit * Reason Onset Date Comments Appointment 11/17/2023 Encounter Details Date Type Department Care Team (Late st Contact Info) Description 11/17/2023 Telephone [facility] [address] [phone] Aura Horne MD [address] [address] Appointment Social History Tobacco Use [...] on filedocumented in this encounter Care Teams Reprographics Technician Relationship Specialty Start Date End Date Avery Hidalgo DO PCP - General 03/02/20 03/10/24 documented as of this encounter
== END 2024-07-27 01:20 | disposition home or self-care (01) ==
PROVIDERS: Emergency Provider Emergency Medicine
DX: R07.89 Other chest pain (principal); K31.84 Gastroparesis
CPT/HCPCS: 36415; 71046; 80053; 83690; 84484; 85025; 85610; 85730; 93005; 96361; 96374; 96375; 99284; A9270; J0780; J2270; J7030

== ENCOUNTER 2024-10-06 19:30 | Emergency (ER) | payer BC, SELFPAY ==
[2024-10-06] VITALS (24 sets, daily range): BP systolic 132–160; BP diastolic 73–107; PULSE 65–101; RESP 12–22; TEMP 36.6–37.1; O2SAT 97–100
--- NOTE | ~2024-10-06 | XR_ITS ---
CHEST RADIOGRAPH, PA AND LATERAL CLINICAL HISTORY: syncope . COMPARISON: 07/26/2024 TECHNIQUE: PA and lateral views of the chest. FINDINGS The cardiomediastinal silhouette is unremarkable. The lungs are clear. Visualized osseous structures and soft tissues are unremarkable. IMPRESSION: No focal infiltrate or effusion. Reviewed, dictated and finalized at location A. OGRAPHY/MAPPING TECHNICIAN
--- OUTSIDE RECORDS SUMMARY | 2024-10-06 19:33 | XMS_ITS | Referral Summary ---
Author Organization [facility] Address [address] [place] [address] Care Team Providers Care Board Certified Orthodontist Name Role Phone Pcp, Verify Primary Care [...] of Treatment Not on file Care Teams Board Certified Orthodontist Relationship Specialty Start Date End Date Pcp, Verify PCP - General 08/19/21
--- OUTSIDE RECORDS SUMMARY | 2024-10-06 19:33 | XMS_ITS | Clinical Summary ---
Author Organization [facility] Address [address] [place] [address] Care Team Providers Care Camera Repairer Name Role Phone Geo Duff MD Primary Care Provider [phone] Allergies Active Allergy Reactions Criticality Noted Date Comments Latex Hives,Rash,Swelling High 07/08/2024 Metoclopramide Blood Disorder Medium 05/14/2020 Medications DULoxetine (CYMBALTA) 60 mg Capsule, Delayed Release(E.C.) Take 60 mg by mouth daily. Active traZODone (DESYREL) 50 mg tablet Take 50 mg by mouth daily at bedtime. Active ARIPiprazole (ABILIFY) 2 mg tablet Take 2 mg by mouth daily. Active L-Norgest&E estradiol-E Estrad (Simpesse) 0.15 mg-30 mcg (84)/10 mcg (7) Tablet, Dose Pack, 3 Months TAKE 1 TABLET BY MOUTH DAILY 91 Tablet 04/06/20 Active clonazePAM 0.5 mg tablet (KlonoPIN) Take [...] (40 mg) by mouth daily. 30 Capsule 07/08/20 24 Active ondansetron (ZOFRAN ODT) 4 mg Tablet, Rapid Dissolve Take 1 Tablet (4 mg) by mouth every 8 hours as needed for Nausea or Emesis. Dissolve tablet on top of tongue, then swallow with saliva. 8 Tablet 08/31/19 25 Active HYDROcodone-ac etaminophen (NORCO) 5-325 mg tabletIndicati ons:Colitis Take 1 Tablet by mouth every 4 hours as needed for Pain. Max Daily Amount: 6 Tablets 12 Tablet 09/03/19 25 Active prochlorperazi ne maleate (COMPAZINE) 10 mg tablet Take 1 Tablet (10 mg) by mouth every 6 hours as needed for Nausea. 15 Tablet 10/03/19 25 Active potassium CHLORIDE (KLOR-CON M20) 20 mEq Extended Release tablet Take 1 Tablet (20 mEq) by mouth 2 times daily for 7 days. 14 Tablet 10/03/19 25 025 Active prochlorperazi ne maleate (COMPAZINE) 10 mg tablet Take 1 Tablet (10 mg) by mouth every 6 hours as needed for Nausea. 15 Tablet 07/07/20 24 025 Discontinued dicyclomine (BENTYL) 10 mg capsule Take 1 Capsule (10 mg) by mouth 4 times daily for 7 days. 28 Capsule 08/31/19 25 025 ondansetron (ZOFRAN ODT) 4 mg Tablet, Rapid Dissolve Take 1 Tablet (4 mg) by mouth every 8 hours as needed for Nausea or Nausea/Emesis. Dissolve tablet on top of tongue, then swallow with saliva. 12 Tablet 09/03/19 25 025 metroNIDAZOLE (FLAGYL) 500 mg tablet Take 1 Tablet (500 mg) by mouth 3 times daily for 7 days. Do not drink alcohol while taking this medicine (causes vomiting) 21 Tablet 09/03/19 25 025 ciprofloxacin HCl (CIPRO) 500 mg tablet Take 1 Tablet (500 mg) by mouth 2 times daily for 7 days. Stop medicine if you experience tendon pain 14 Tablet 09/03/19 25 025 Active Problems Problem Noted Date Diagnosed Date Bilious vomiting with nausea 08/08/2024 Long syndrome 08/08/2024 Early satiety 08/08/2024 Anxiety and depression 07/08/2024 Bipolar disorder, unspecified [...] Oral contraceptive use - 3mo continuous 05/14/20 History of vulvar vestibulitis, responds well to Cymbalta 05/14/2020 Encounters Date Type Department Care Team Description 10/03/2024 12:26 PM RESERVATION SALES AGENT - 10/03/2024 4:04 PM [facility] [address] [address] Mansi Roa MD Nausea and vomiting, unspecified vomiting type (Primary Dx) Discharge Disposition: Home or Self Care 10/03/2024 Travel 10/02/2024 External Device Data ST[facility] ABSTRACTION Provider, Abstract 10/01/2024 External Device Data ST[facility] ABSTRACTION Provider, Abstract 10/01/2024 External Device Data ST[facility] ABSTRACTION Provider, Abstract 09/17/2024 External Device Data [facility] ABSTRACTION Provider, Abstract 09/05/2024 External Device Data ST[facility] ABSTRACTION Provider, Abstract 09/04/2024 External Device Data ST[facility] ABSTRACTION Provider, Abstract 09/03/2024 1:06 PM [employer]ERVATION SALES AGENT - 09/03/2024 9:10 PM [facility] [address] [address] [place] [address] Candelaria Doyle MD Judge, Steven J, MD Abdominal pain, unspecified abdominal location (Primary Dx); Nausea and vomiting, unspecified vomiting type; Hematuria, unspecified type; Dehydration; Ketonuria; Colitis Discharge Disposition: Home or Self Care 09/03/2024 External Device Data STL ABSTRACTION Provider, Abstract 09/03/2024 External Device Data ST[facility] ABSTRACTION Provider, Abstract 08/31/2024 8:30 AM [employer]ATION SALES AGENT - 08/31/2024 12:12 PM [facility] Emergency [facility] Emergency Services [address] [address] [place] [phone] Acute gastroenteritis (Primary Dx); RSV infection Discharge Disposition: Home or Self Care 08/31/2024 Travel 08/28/2024 External Device Data STL ABSTRACTION Provider, Abstract 08/08/2024 1:40 PM [facility] Office Visit [facility] - [address] [facility] [address] [address] [facility] [address] [place] [address] Sachin Pang MD Bilious vomiting with nausea (Primary Dx); Long syndrome; Early satiety 08/06/2024 External Device Data ST[facility] ABSTRACTION Provider, Abstract 07/16/2024 External Device Data ST[facility] ABSTRACTION Provider, Abstract 07/09/2024 External Device Data ST[facility] ABSTRACTION Provider, Abstract 07/08/2024 3:48 AM [employer]ATION SALES AGENT - 07/08/2024 4:13 PM [facility] Emergency [facility] Medical 2 [address] [address] [place] [address] Fermin Steve MD Bogachenchu, Sreenivasulu, MD Odibi, Chizor, MD Intractable nausea and vomiting Discharge Disposition: Home or Self Care 07/07/2024 Travel 07/06/2024 11:00 PM [employer]ATION SALES AGENT - 07/07/2024 2:42 AM [facility] Emergency [facility] Emergency Services [address] [place] [address] Fermin Steve MD Chest pain with low risk [...] who hurts you emotionally and/or physically? No 10/03/2024 Food Insecurity Answer Date Recorded Social/Environmental Concerns No concerns Transportation Needs Answer Date Record ed Social/Environmental Concerns No concerns Housing Stability Answer Date Recorded Social/Environmental Concerns No concerns Utility Needs Answer Date Recorded Social/Environmental Concerns No concerns Comments No Sex and Gender Information Value Date Recorded Sex Assigned at Not on file Legal Sex Female 10:26 AM CDT Gender Identity Not on file Sexual Orientation Not on file Last Filed Vital Signs Vital Sign Reading Time Taken Comments Blood Pressure 135/80 10/03/2024 3:30 PM [employer] SALES AGENT Pulse 62 10/03/2024 3:30 PM [employer]ATION SALES AGENT Temperature 37.4 C (99.3 F) 10/03/2024 11:04 AM [employer] SALES AGENT Respiratory Rate 12 10/03/2024 11:04 AM [employer]ATION SALES AGENT Oxygen Saturation 100% 10/03/2024 3:30 PM [employer]ATION SALES AGENT Inhaled Oxygen Concentration - - Weight 52.6 kg (116 lb) 10/03/2024 11:04 AM [employer]ATION SALES AGENT Height 154.9 cm (5' 1 ) 10/03/2024 11:04 AM [employer]ATION SALES AGENT Body Mass Index 21.92 10/03/2024 11:04 AM [employer]ATION SALES AGENT Plan of Treatment Upcoming Encounters Date Type Department Care Team (Late st Contact Info) Description 10/22/2024 8:00 AM CDT Appointment [facility] Nuclear Medicine [address] [address] [place] [phone] [address] Health Maintenance Due Date Last Done Comments HEPATITIS B VACCINES (1 of 3 - 19+ 3-dose series) 2003 COVID-19 Vaccine ( season) 2024 06/21/2023, 12/25/2020, 11/12/2020 Preventative Visit- Commercial 08/14/2024 11/08/2023, 04/07/2022, 07/07/2021, Additional history exists BREAST CANCER SCREENING 01/11/2025 01/12/2024, 08/23 CERVICAL CANCER SCREENING 04/07/20252021, 05/14/2020, 02/06/2013 DTAP/TDAP/TD VACCINES (3 - Td or Tdap) 08/02/2031 08/02/2021, 05/22/2016 INFLUENZA VACCINE Completed 06/21/2024, , 05/17/2022, Additional history exists HPV VACCINES Aged Out No longer eligi ble based on patient's age to complete this topic Procedures Procedure Name Priority Date/Time Associated Diagnosis Comments EXTRA TUBE (URINE MCADAMS) Stat 10/03/2024 3:15 PM [employer]ATION SALES AGENT URINALYSIS W/REFLEX MICROSCOPIC Stat 10/03/2024 3:15 PM [employer]ATION SALES AGENT DRUG SCREEN, URINE Stat 10/03/2024 3: 15 PM [employer]ATION SALES AGENT EXTRA TUBE (BLUE) Stat 10/03/2024 2:2 2 PM [employer]ATION SALES AGENT EXTRA TUBE (GREEN) Stat 10/03/2024 2: 22 PM [employer]ATION SALES AGENT EXTRA TUBE Stat 10/03/2024 2:22 PM [employer]ATION SALES AGENT HCG QUALITATIVE, SERUM Stat 10/03/2024 2:22 PM [employer]ATION SALES AGENT LIPASE Stat 10/03/2024 2:21 PM [employer]ATION SALES AGENT COMPREHENSIVE METABOLIC PANEL Stat 10/03/2024 2:21 PM [employer]ATION SALES AGENT CBC WITH DIFFERENTIAL Stat 10/03/2024 2:21 PM [employer]ATION SALES AGENT XR ABDOMEN 1 VW Stat 10/03/2024 1:58 PM [employer]ATION SALES AGENT EXTRA TUBE (URINE MCADAMS) Stat 09/03/2024 6:04 PM [employer]ATION SALES AGENT URINALYSIS W/REFLEX MICROSCOPIC Stat 09/03/2024 6:[address] [employer]ATION SALES [address] [address] ABDOMEN PELVIS W CONTRAST Stat 09/03/2024 5:20 PM [employer]ATION SALES AGENT EKG 12-LEAD Stat 09/03/2024 2:05 PM [employer]ATION SALES AGENT XR CHEST PA OR AP 1 VW Stat 09/03/2024 1:52 PM [employer]ATION SALES AGENT EXTRA TUBE (URINE MCADAMS) Stat 09/03/2024 1:38 PM [employer]ATION SALES AGENT URINALYSIS W/REFLEX MICROSCOPIC Stat 09/03/2024 1:38 PM [employer]ATION SALES AGENT LIPASE Stat 09/03/2024 11:50 AM [employer]ATION SALES AGENT MAGNESIUM LEVEL Stat 09/03/2024 11:50 AM [employer]ATION SALES AGENT TROPONIN BASELINE, 5TH GEN Stat 09/03/2024 11:50 AM [employer]ATION SALES AGENT HCG QUALITATIVE, SERUM Stat 09/03/2024 11:50 AM [employer]ATION SALES AGENT COMPREHENSIVE METABOLIC PANEL Stat 09/03/2024 11:50 AM [employer]ATION SALES AGENT CBC WITH DIFFERENTIAL Stat 09/03/2024 11:50 AM [employer]ATION SALES AGENT EXTRA TUBE (URINE MCADAMS) Stat 08/31/2024 9:33 AM [employer]ATION SALES AGENT INFLUENZA A/B, RSV AND COVID-19 PCR PANEL Stat 08/31/2024 9:33 AM [employer]ATION SALES AGENT URINALYSIS W/REFLEX MICROSCOPIC Stat 08/31/2024 9:33 AM [employer]ATION SALES AGENT INFLUENZA A/B, RSV AND COVID-19 PCR PANEL Stat 08/31/2024 9:33 AM RESERVATION SALES AGENT LIPASE Stat 08/31/2024 9:33 AM [employer]ATION SALES AGENT COMPREHENSIVE METABOLIC PANEL Stat 08/31/2024 9:33 AM RES[employer]ATION SALES AGENT CBC WITH DIFFERENTIAL Stat 08/31/2024 9:33 AM RESERVATION SALES AGENT US ABDOMEN LIMITED Stat 07/08/2024 7: 30 AM [employer]ATION SALES AGENT EKG 12-LEAD Stat 07/08/2024 6:13 [address] [employer]ATION SAL[employer] [address] [address] ABDOMEN PELVIS W CONTRAST Stat 07/08/2024 5:07 AM [employer]ATION SALES AGENT HCG QUALITATIVE, SERUM Stat 07/08/2024 4:17 AM [employer]ATION SALES AGENT PHOSPHORUS Routine 07/08/2024 4:08 AM [employer]ATION SALES AGENT C-REACTIVE PROTEIN Stat 07/08/2024 4: 08 AM [employer]ATION SALES AGENT PROCALCITONIN Stat 07/08/2024 4:08 AM RES[employer]ATION SALES AGENT MAGNESIUM LEVEL Stat 07/08/2024 4:08 AM [employer]ATION SALES AGENT LIPASE Stat 07/08/2024 4:08 AM [employer]ATION SALES AGENT COMPREHENSIVE METABOLIC PANEL Stat 07/08/2024 4:08 AM RES[employer]ATION SALES AGENT CBC WITH DIFFERENTIAL Stat 07/08/2024 4:08 AM [employer]ATION SALES AGENT HEMOGLOBIN A1C Stat 07/06/2024 11:55 PM [employer]ATION SALES AGENT LIPASE Stat 07/06/2024 11:55 PM [employer]ATION SALES AGENT EXTRA TUBE (BLUE) Stat 07/06/2024 11: 55 PM [employer]ATION SALES AGENT EXTRA TUBE Stat 07/06/2024 11:55 PM [employer]ATION SALES AGENT COMPREHENSIVE METABOLIC PANEL Stat 07/06/2024 11:55 PM [employer]ATION SALES AGENT CBC WITH DIFFERENTIAL Stat 07/06/2024 11:55 PM RES[employer]ATION SALES AGENT TROPONIN BASELINE, 5TH GEN Stat 07/06/2024 11:55 PM [employer]ATION SALES AGENT EKG 12-LEAD Stat 07/06/2024 10:58 PM [employer]ATION SALES AGENT CERV/VAG CYTO SCREEN PAP W/HPV Routine 04/07/2022 12:00 AM CDT Well woman exam with routine gynecological exam from Last 3 Months or Most Recently Relevant to Health Maintenance Results * EXTRA TUBE (URINE MCADAMS) (10/03/2024 3:15 PM RESERVATION SALES AGENT) Only the most recent of4 resultswithin the time period is included. Urine URINE SPECIMEN OBTAINED BY CLEAN CATCH PROCEDURE / Unknown Collection / Unknown 10/03/2024 3:15 PM [employer]ATION SALES AGENT 10/03/2024 3:23 PM RESERVATION SALES AGENT [facility] [[email or web address]] Kush Roa MD URINE ORDERABLES Amanda pierce Result [facility] [place] CLIA # [id number] [facility] [address] [place] [address] * (ABNORMAL) DRUG SCREEN, URINE (10/03/2024 3:15 PM RESERVATION SALES AGENT) [facility] AMPHETAMINE QUAL, URINE Negative Negative 10/03/2024 3:41 PM [facility] [place] BARBITURATE QUAL, URINE Negative Negative 10/03/2024 3:41 PM [facility] [place] BENZODIAZEPINE QUAL, URINE Presumptive Positive(A) Negative 10/03/2024 3:41 PM [facility] COCAINE QUAL URINE Negative Negative 10/03/2024 3:41 PM [facility] OPIATE QUAL, URINE Presumptive Positive(A) Negative 10/03/2024 3:41 PM [facility] CANNABINOIDS QUAL, URINE Presumptive Positive(A) Negative 10/03/2024 3:41 PM [facility] [place] PCP QUAL, URINE Negative Negative 3:41 PM [facility] [place] OXYCODONE QUAL, URINE Negative Negative 10/03/2024 3:41 PM [facility] METHADONE QUAL, URINE Negative Negative 10/03/2024 3:41 PM [facility] [place] FENTANYL QUAL, URINE Negative Negative 10/03/2024 3:41 PM [facility] [place] CREATININE, URINE 134.8 29.0 - 226.0 mg/dL 10/03/2024 3:41 PM [facility] [place] Comment:Reference Range vari es with fluid intake and diet. Urine URINE SPECIMEN OBTAINED BY CLEAN CATCH PROCEDURE / Unknown Collection / Unknown 10/03/2024 3:15 PM [employer]ATION SALES AGENT 10/03/2024 3:26 PM RESERVATION SALES AGENT [facility] [place] - 10/03/2024 3:41 PM RES[employer]ATION SALES AGENT This test is a qualitative screen. The presumptive positive results should not be used for legal purposes. If confirmation of results is desired, the lab must be contacted without delay. Cut-Off Concentrations for each drug class Amphetamines 500 ng/mL Barbiturates 200 ng/mL Benzodiazepines 100 ng/mL Cocaine 300 ng/mL Opiates 300 ng/mL Phencyclidine 25 ng/mL Cannabinoids 50 ng/mL Oxycodone 100 ng/mL Methadone 300 ng/mL Fentanyl 5 ng/mL [facility] [[email or web address]] Kush Roa MD URINE ORDERABLES Amanda l Result [facility] [place] CLIA # [id number] [facility] [address] [place] [id number] * (ABNORMAL) URINALYSIS WITH REFLEX MICROSCOPIC (10/03/2024 3:15 PM RESERVATION SALES AGENT) Only the most recent of4 resultswithin the time period is included. COLOR UA Pale Yellow Pale to Dark Yellow 10/03/2024 3:30 PM [facility] [place] CLARITY UA Clear Clear 10/03/2024 3:30 PM [facility] [place] SPECIFIC GRAVITY UA 1.015 1.003 - 1.035 10/03/2024 3:30 PM [facility] [place] PH UA 6.5 5.0 - 8.0 10/03/2024 3:30 PM [facility] [place] LEUKOCYTE ESTERASE UA Negative Negative 10/03/2024 3:30 PM [facility] [place] NITRITE UA Negative Negative 10/03/2024 3:30 PM [facility] [place] PROTEIN UA Negative Negative 10/03/2024 3:30 PM [employer]ATION SALES AGENT [facility] GLUCOSE UA Negative Negative 10/03/2024 3:30 PM [employer]ATION SALES AGENT [facility] [place] KETONES UA 1+(A) Negative 10/03/2024 3:30 PM [employer]ATION SALES AGENT [facility] UROBILINOGEN UA Normal <2.0 mg/dL 3:30 PM [employer]ATION SALES AGENT [facility] BILIRUBIN UA Negative Negative 10/03/2024 3:30 PM [employer]ATION SALES AGENT [facility] BLOOD UA 1+(A) Negative 10/03/2024 3:30 PM [employer]ATION SALES AGENT [facility] WBC UA 6-10(A) 0 - 2 /hpf 10/03/2024 3:30 PM [employer]ATION SALES AGENT [facility] RBC UA 6-10(A) 0 - 2 /hpf 10/03/2024 3:30 PM [employer]ATION SALES AGENT [facility] BACTERIA UA 1+(A) Negative /hpf 10/03/2024 3:30 PM RES[employer]ATION SALES AGENT [facility] EPITHELIAL CELLS, URINE 0-5 0 - 5 /hpf 10/03/2024 3:30 PM [employer]ATION SALES AGENT [facility] HYALINE CAST 0-2 None Seen, 0-2 /lpf 10/03/2024 3:30 PM [employer]ATION SALES AGENT [facility] Urine URINE SPECIMEN OBTAINED BY CLEAN CATCH PROCEDURE / Unknown Collection / Unknown 10/03/2024 3:15 PM [employer]ATION SALES AGENT 10/03/2024 3:23 PM [employer]ATION SALES AGENT Mansi Roa MD URINE ORDERABLES Amanda l Result [facility] CLIA # [id number] [facility] [address] [place] [address] * EXTRA TUBE (GREEN) (10/03/2024 2:22 PM [employer]ERVATION SALES AGENT) Blood Venipuncture / Unknown 10/03/2024 2:22 PM [employer]ATION SALES AGENT 10/03/2024 2:35 PM [employer]ATION SALES AGENT Mansi Roa MD CHEMISTRY ORDERABLES Final Result Performing Organization Address [facility] Co de Phone Number [facility] CLIA # [id number] [address] [address] * EXTRA TUBE (BLUE) (10/03/2024 2:22 PM RESERVATION SALES AGENT) Only the most recent of2 resultswithin the time period is included. Blood Venipuncture / Unknown 10/03/2024 2:22 PM [employer]ATION SALES AGENT 10/03/2024 2:33 PM [employer]ATION SALES AGENT Mansi Roa MD HEMATOLOGY ORDERABLES Final Result Performing Organization Address [facility] de Phone Number [facility] CLIA # [id number] y [address] [place] [phone] * HCG QUALITATIVE, BLOOD (10/03/2024 2:22 PM [employer]ATION SALES AGENT) Only the most recent of3 resultswithin the time period is included. HCG QUAL, BLOOD Negative Negative 10/03/2024 2:47 PM [employer]ATION SALES AGENT [facility] Blood Collection / Unknown 10/03/2024 2:22 PM [employer]ATION SALES AGENT 10/03/2024 2:27 PM RES[employer]ATION SALES AGENT Narrative [facility] - 10/03/2024 2:47 PM [employer]ATION SALES AGENT hCG sensitive to as little as 10 mIU/mL for serum. Mansi Roa MD CHEMISTRY ORDERABLES Final Result Performing Organization Address [facility] Co de Phone Number [facility] CLIA # [id number] y [address] [place] [phone] * (ABNORMAL) CBC WITH DIFFERENTIAL (10/03/2024 2:21 PM [employer]ATION SALES AGENT) Only the most recent of5 resultswithin the time period is included. WBC 10.4 4.0 - 11.0 K/uL 10/03/2024 2:29 PM [employer]ATION SALES AGENT [facility] [place] RBC 5.35 4.20 - 5.40 M/uL 10/03/2024 2:29 PM [facility] [place] HEMOGLOBIN 16.0(H) 11.9 - 15.1 g/dL 10/03/2024 2:29 PM [facility] [place] HEMATOCRIT 45.0 38.0 - 47.0 % 10/03/2024 2:29 PM [facility] [place] MCV 84.1 80.0 - 98.0 fL 10/03/2024 2:29 PM [facility] [place] MCH 29.9 26.0 - 34.0 pg 10/03/2024 2:29 PM [facility] [place] MCHC 35.6 31.0 - 37.0 g/dL 10/03/2024 2:29 PM [facility] [place] RDW 13.8 11.5 - 14.5 % 10/03/2024 2:29 PM [facility] [place] RDW-STDEV 42.2 34.0 - 54.0 fL 10/03/2024 2:29 PM [facility] [place] PLATELETS 404(H) 150 - 400 K/uL 10/03/2024 2:29 PM [facility] [place] MPV 10.2 8.5 - 12.5 fL 10/03/2024 2:29 PM [facility] [place] NEUTROPHILS 58 50 - 70 % 10/03/2024 2:29 PM [facility] [place] LYMPHOCYTES 33 20 - 40 % 10/03/2024 2:29 PM [facility] [place] MONOCYTES 9(H) 2 - 8 % 10/03/2024 2:29 PM [facility] [place] EOSINOPHILS 0(L) 1 - 3 % 10/03/2024 2:29 PM [facility] [place] BASOPHILS 0 0 - 1 % 10/03/2024 2:29 PM [facility] [place] IMMATURE GRANULOCYTES 0 0 - 2 % 10/03/2024 2:29 PM [facility] [place] NEUTROPHIL ABSOLUTE 6.00 1.80 - 7.70 K/uL 10/03/2024 2:29 PM [facility] LYMPHOCYTE ABSOLUTE 3.43(H) 1.00 - 3.30 K/uL 10/03/2024 2:29 PM [employer]ATION SALES AGENT [facility] MONOCYTE ABSOLUTE 0.91(H) 0.00 - 0.80 K/uL 10/03/2024 2:29 PM [facility] EOSINOPHIL ABSOLUTE 0.02 0.00 - 0.45 K/uL 10/03/2024 2:29 PM [facility] BASOPHILS ABSOLUTE 0.04 0.00 - 0.20 K/uL 10/03/2024 2:29 PM RES[employer]ATION SALES AGENT [facility] IMMATURE GRANULOCYTES ABSOLUTE 0.03 0.00 - 0.31 K/uL 10/03/2024 2:29 PM [facility] Blood Collection / Unknown 10/03/2024 2:21 PM RESERVATION SALES AGENT 10/03/2024 2:27 PM RESERVATION SALES AGENT us Mansi Roa MD HEMATOLOGY ORDERABLES Final Result Performing Organization Address City/[facility]/ZIP Co de Phone Number [facility] CLIA # [id number] [address] [place] [address] * LIPASE (10/03/2024 2:21 PM RESERVATION SALES AGENT) Only the most recent of5 resultswithin the time period is included. LIPASE 26 13 - 60 U/L 10/03/2024 2:44 PM [facility] Blood Collection / Unknown 10/03/2024 2:21 PM RESERVATION SALES AGENT 10/03/2024 2:33 PM RESERVATION SALES AGENT us Mansi Roa MD CHEMISTRY ORDERABLES Final Result Performing Organization Address City/[facility]/ZIP Co de Phone Number [facility] Marek [facility] CLIA # [id number] [address] [place] [address] * (ABNORMAL) COMPREHENSIVE METABOLIC PANEL (10/03/2024 2:21 PM RESERVATION SALES AGENT) Only the most recent of5 resultswithin the time period is included. SODIUM 133(L) 136 - 145 mmol/L 10/03/2024 2:44 PM [facility] [place] POTASSIUM 3.0(L) 3.5 - 5.1 mmol/L 10/03/2024 2:44 PM [facility] [place] CHLORIDE 90(L) 98 - 107 mmol/L 10/03/2024 2:44 PM [facility] [place] CO2 27 22 - 29 mmol/L 10/03/2024 2:44 PM [facility] [place] CALCIUM 9.8 8.6 - 10.0 mg/dL 10/03/2024 2:44 PM [facility] [place] BUN 12 6 - 20 mg/dL 10/03/2024 2:44 PM [facility] [place] CREATININE 0.79 0.51 - 0.95 mg/dL 10/03/2024 2:44 PM [facility] [place] GLUCOSE 100(H) 74 - 99 mg/dL 10/03/2024 2:44 PM [facility] [place] TOTAL PROTEIN 8.1 6.6 - 8.7 g/dL 10/03/2024 2:44 PM [facility] [place] ALBUMIN 4.6 4.0 - 5.0 g/dL 10/03/2024 2:44 PM [facility] [place] BILIRUBIN TOTAL 0.7 <=1.2 mg/dL 10/03/2024 2:44 PM [facility] ALKALINE PHOSPHATASE 87 35 - 104 U/L 10/03/2024 2:44 PM [facility] [place] AST 16 <40 U/L 10/03/2024 2:44 PM [facility] [place] ALT 20 <=33 U/L 10/03/2024 2:44 PM [facility] [place] GFR >60 >=60 mL/min/1.7 3 sq meter 10/03/2024 2:44 PM [facility] [place] Comment:eGFR calculated with 2020 CKD-EPI equation. Vegetarian diet, extremely high or low muscle mass, and may affect results. Cystatin C with Glomerular Filtration Rate is a suitable alternative for these patients. ANION GAP 16(H) 5 - 15 mmol/L 10/03/2024 2:44 PM RESERVATION SALES AGENT [facility] Blood Collection / Unknown 10/03/2024 2:21 PM RESERVATION SALES AGENT 10/03/2024 2:33 PM RESERVATION SALES AGENT Mansi Roa MD CHEMISTRY ORDERABLES Final Result [facility] CLIA # [id number] [address] [place] [address] * XR ABDOMEN 1 VW (10/03/2024 1:58 PM RESERVATION SALES AGENT) Anatomical Region Laterality Modality Abdomen Computed Radiogr aphy 10/03/2024 1:58 PM RESERVATION SALES AGENT Impressions 10/03/2024 2:09 PM RESERVATION SALES AGENT IMPRESSION: 1. No acute abnormality. DICTATION LOCATION: Location 4 Narrative 10/03/2024 2:09 PM RESERVATION SALES AGENT XR ABDOMEN 1 VW DATE: 10/03/2024 1:58 PM HISTORY: Nausea. See Reason for Exam Findings: The bowel gas pattern is normal with no radiographic evidence of obstruction. Couple of tiny calcific densities within the right pelvis are suspicious for phleboliths. Urinary calculi cannot be entirely excluded. No abnormal calcifications superimpose the kidneys. The lung bases are clear. Procedure Note Cody Ivy MD - 10/03/2024 XR ABDOMEN 1 VW DATE: 10/03/2024 1:58 PM HISTORY: Nausea. See Reason for Exam Findings: The bowel gas pattern is normal with no radiographic evidence of obstruction. Couple of tiny calcific densities within the right pelvis are suspicious for phleboliths. Urinary calculi cannot be entirely excluded. No abnormal calcifications superimpose the kidneys. The lung bases are clear. IMPRESSION: 1. No acute abnormality. DICTATION LOCATION: Location 4 us Mansi Roa MD DIAGNOSTIC IMAGING OR DERABLES Final Result * CT ABDOMEN PELVIS W CONTRAST (09/03/2024 5:20 PM RESERVATION SALES AGENT) Only the most recent of2 resultswithin the time period is included. Anatomical Region Laterality Modality Abdomen Computed Tomogra phy 09/03/2024 5:21 PM RESERVATION SALES AGENT Impressions 09/03/2024 5:30 PM RESERVATION SALES AGENT IMPRESSION: 1. Bladder wall thickening. Correlate for cystitis. 2. Mild chronic wall thickening throughout the colon. Possible chronic colitis. Dictation location: Location 4 Narrative 09/03/2024 5:30 [address] RESERVATION SALES [address]ENT [address] ABDOMEN PELVIS W CONTRAST CLINICAL INDICATION: Flank pain, stone disease suspected, Abdominal pain, acute, nonlocalized. COMPARISON: July 08, 2024. TECHNIQUE: Axial images were obtained from the lung bases through the pubic symphysis after the administration of intravenous contrast. Oral contrast was not administered. Multiplanar reformatted images were reviewed. The examination was performed with the adjustment of mA according to the patient size and/or the use of iterative reconstruction technique. FINDINGS: The lung bases, spleen, adrenal glands, kidneys, ureters, pancreas, gallbladder, liver, stomach, small bowel, and appendix are unremarkable. The ascending colon diverticulosis. Mild wall thickening throughout the colon. The bladder wall appears to be circumferentially moderately thickened although nondistention limits evaluation. No free air, free fluid, abscess, or enlarged lymph nodes are seen in the abdomen/pelvis. The abdominal aorta is not aneurysmally dilated. The imaged osseous structures are intact. L4 limbus vertebra. Procedure Note Justen Coffey MD - 09/03/2024 CT ABDOMEN PELVIS W CONTRAST CLINICAL INDICATION: Flank pain, stone disease suspected, Abdominal pain, acute, nonlocalized. COMPARISON: July 08, 2024. TECHNIQUE: Axial images were obtained from the lung bases through the pubic symphysis after the administration of intravenous contrast. Oral contrast was not administered. Multiplanar reformatted images were reviewed. The examination was performed with the adjustment of mA according to the patient size and/or the use of iterative reconstruction technique. FINDINGS: The lung bases, spleen, adrenal glands, kidneys, ureters, pancreas, gallbladder, liver, stomach, small bowel, and appendix are unremarkable. The ascending colon diverticulosis. Mild wall thickening throughout the colon. The bladder wall appears to be circumferentially moderately thickened although nondistention limits evaluation. No free air, free fluid, abscess, or enlarged lymph nodes are seen in the abdomen/pelvis. The abdominal aorta is not aneurysmally dilated. The imaged osseous structures are intact. L4 limbus vertebra. IMPRESSION: 1. Bladder wall thickening. Correlate for cystitis. 2. Mild chronic wall thickening throughout the colon. Possible chronic colitis. Dictation location: Location [address] ORDERABLES Final Result * EKG 12-LEAD (09/03/2024 2:05 PM RESERVATION SALES AGENT) Only the most recent of3 resultswithin the time period is included. 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1985 Requested By: CANDELARIA DOYLE Order Number: [id number] Arianna SQUIRES: Saud Fonseca Measurements Intervals Noti Rate: 65 P: 69 LA: 106 QRS: 48 QRSD: 85 T: 66 QT: 392 QTc: 408 Interpretive Statements SINUS RHYTHM WITH SHORT LA INTERVAL Electronically Signed On 09-03-2024 14:27:16 RESERVATION SALES AGENT by Saud Fonseca Procedure Note Saud Fonseca MD - 09/03/2024 [facility] ED [address], [place] [address] Test Date: 2024-09-03 Pat Name: [facility] Department: 5000 Room: [facility] ED12 Gender: Female 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1985 Requested By: CANDELARIA DOYLE Order Number: [id number] Arianna Fonseca Measurements Intervals Noti Rate: 65 P: 69 LA: 106 QRS: 48 QRSD: 85 T: 66 QT: 392 QTc: 408 Interpretive Statements SINUS RHYTHM WITH SHORT LA INTERVAL Electronically Signed On 09-03-2024 14:27:16 RESERVATION SALES AGENT by Saud Fonseca Candelaria Doyle MD ECG ORDERABLES Final Result INTERFACE SYSTEM Refer to clinic/hospital department * XR CHEST PA OR AP 1 VW (09/03/2024 1:52 PM RESERVATION SALES AGENT) Anatomical Region Laterality Modality Chest Computed Radiogr aphy 09/03/2024 1:52 PM RESERVATION SALES AGENT Impressions 09/03/2024 1:58 PM RESERVATION SALES AGENT FINDINGS/ IMPRESSION: MEDIASTINUM: Cardiac silhouette is not enlarged. LUNGS: No focal consolidation. No appreciable pneumothorax or pleural effusion. DICTATION LOCATION: Location 1 - [facility] Narrative 09/03/2024 1:58 PM RESERVATION SALES AGENT XR CHEST PA OR AP 1 VW Ordering provider: CANDELARIA DOYLE Date/time: 09/03/2024 1:52 PM History: 39 years Female with Abd pain. RSV infection. Shortness of breath and cough Comparison: None Procedure Note Tai Villaseñor MD - 09/03/2024 XR CHEST PA OR AP 1 VW Ordering provider: CANDELARIA DOYLE Date/time: 09/03/2024 1:52 PM History: 39 years Female with Abd pain. RSV infection. Shortness of breath and cough Comparison: None FINDINGS/ IMPRESSION: MEDIASTINUM: Cardiac silhouette is not enlarged. LUNGS: No focal consolidation. No appreciable pneumothorax or pleural effusion. DICTATION LOCATION: Location 1 - [facility] Candelaria Doyle MD DIAGNOSTIC IMAGING ORDERABLES Final Result * TROPONIN BASELINE, 5TH GEN (09/03/2024 11:50 AM RESERVATION SALES AGENT) Only the most recent of2 resultswithin the time period is included. TROPONIN T, BASELINE 5TH GEN <6 <=10 ng/L 09/03/2024 1:43 PM RESERVATION SALES AGENT [facility] Blood Collection / Unknown 09/03/2024 11:50 AM RESERVATION SALES AGENT 09/03/2024 12:23 PM RESERVATION SALES AGENT Narrative [facility] - 09/03/2024 1:43 PM RESERVATION SALES AGENT Troponin Undetectable Candelaria Doyle MD CHEMISTRY ORDERABLES Final Re sult [facility] CLIA # [id number] [facility] [address] [place] [address] * MAGNESIUM LEVEL (09/03/2024 11:50 AM RESERVATION SALES AGENT) Only the most recent of2 resultswithin the time period is included. MAGNESIUM 2.2 1.6 - 2.6 mg/dL 09/03/2024 1:38 PM RESERVATION SALES AGENT [facility] Blood Collection / Unknown 09/03/2024 11:50 AM RESERVATION SALES AGENT 09/03/2024 12:23 PM RESERVATION SALES AGENT Candelaria Doyle MD CHEMISTRY ORDERABLES Final Re sult Performing Organization Address City/[facility]/ZIP Co de Phone Number [facility] CLIA # [id number] [facility] [address] [place] [address] * (ABNORMAL) INFLUENZA A/B, RSV AND COVID-19 PCR PANEL (08/31/2024 9:33 AM RESERVATION SALES AGENT) Pathologist [facility] COVID-19 PCR NOT DETECTED Not Detected 08/31/19 10:25 AM [facility] Influenza A by PCR NOT DETECTED Not Detected 08/31/2024 10:25 AM [facility] Influenza B by PCR NOT DETECTED Not Detected 08/31/2024 10:25 AM [facility] RSV by PCR DETECTED(A) Not Detected 08/31/2024 10:25 AM [facility] Upper Respiratory ENTIRE NASOPHARYNX / Unknown Collection / Unknown 08/31/2024 9:33 AM RESERVATION SALES AGENT 08/31/2024 9:47 AM RESERVATION SALES AGENT Narrative [facility] - 08/31/2024 10:25 AM RESERVATION SALES AGENT This test has been authorized by the FDA under an Emergency Use Authorization for use by authorized laboratories. This test has been validated in accordance with the FDA's guidance regarding Coronavirus Disease-2019 testing. Optimum specimen types and timing for peak viral levels during infection have not been determined. A negative RT-PCR result does not rule out infection with the 2019-Novel Coronavirus. us Rene GONZALEZ MICROBIOLOGY - GENERAL ORD ERABLES Final Result [facility] GONZALEZ # [id number] [facility] [address] [place] [address] * US ABDOMEN LIMITED (07/08/2024 7:30 AM RESERVATION SALES AGENT) Anatomical Region Laterality Modality Abdomen Ultrasound 07/08/2024 7:36 AM RESERVATION SALES AGENT Impressions 07/08/2024 8:05 AM RESERVATION SALES AGENT IMPRESSION: 1. Mild abnormal echogenicity of the liver which can be seen with steatosis or other diffuse hepatocellular process. This limits the sensitivity for the detection of hepatic masses. 2. Unremarkable gallbladder. DICTATION LOCATION: Location 9 - [facility] Narrative 07/08/2024 8:05 AM RESERVATION SALES AGENT US ABDOMEN LIMITED DATE: 07/08/2024 7:30 AM HISTORY: 39-year-old female with nausea and vomiting TECHNIQUE: Limited right upper quadrant ultrasound performed by an mechanical technologist in multiple projections. COMPARISON: None FINDINGS: [...] right upper quadrant ultrasound performed by an mechanical technologist in multiple projections. COMPARISON: None FINDINGS: [...] 2. Unremarkable gallbladder. DICTATION LOCATION: Location - [facility] us Jagruti Lim MD US ORDERABLES Amanda l Result * PROCALCITONIN (07/08/2024 4:08 AM RESERVATION SALES AGENT) PROCALCITONIN 0.03 <=0.25 ng/mL 07/08/2024 6:11 AM RESERVATION SALES AGENT [facility] Blood Collection / Unknown 07/08/2024 4:08 AM RESERVATION SALES AGENT 07/08/2024 4:18 AM RESERVATION SALES AGENT Narrative [facility] - 07/08/2024 6:11 AM RESERVATION SALES AGENT The utility of procalcitonin is limited/NOT recommended in certain populations (e.g. newborns, dialysis/ESRD, patients with recent major surgery/trauma/chan, liver cirrhosis, viral hepatitis, certain cancers, etc.). Procalcitonin levels MUST be interpreted in the context of the patient's clinical condition and CANNOT be solely relied upon for diagnosis of infection. <0.25 ng/mL: Bacterial infection unlikely, particularly lower respiratory tract infections. <0.5 ng/mL: Low risk for progression to severe sepsis/septic shock. Localized infection possible. Measurements done early (<6 hours) after systemic process starts may still be low. 0.5-2 ng/mL: Moderate risk for progression to severe sepsis/septic shock. >2 ng/mL: High risk for progression to severe sepsis/septic shock. If antibiotics ARE administered, repeat testing is recommended every 2-3 days to help guide antibiotic cessation. Once a decrease of 80% or more has occurred from baseline, discontinuation of antibiotics should strongly be considered in clinically stable patients. Procalcitonin is produced in the setting of systemic inflammation, particularly bacterial infections. It is detectable within 2-4 hours and peaks within 6-24 hours. Jagruti Lim MD CHEMISTRY ORDERABLES Final Result Performing Organization Address City/[facility]/ZIP Co de Phone Number [facility] CLIA # [id number] [address] [place] [address] * (ABNORMAL) C-REACTIVE PROTEIN (07/08/2024 4:08 AM RESERVATION SALES AGENT) CRP 7.4(H) <=5.0 mg/L 07/08/2024 6:10 AM RESERVATION SALES AGENT [facility] Blood Collection / Unknown 07/08/2024 4:08 AM RESERVATION SALES AGENT 07/08/2024 4:18 AM RESERVATION SALES AGENT Jagruti Lim MD CHEMISTRY ORDERABLES Final Result Performing Organization Address [facility] Co de Phone Number [facility] Ayla [facility] CLIA # [id number] [facility] [address] [place] [address] * (ABNORMAL) PHOSPHORUS (07/08/2024 4:08 AM RESERVATION SALES AGENT) Pathologist [facility] PHOSPHORUS 1.1(L) 2.5 - 4.5 mg/dL 07/08/2024 9:43 AM RESERVATION SALES AGENT [facility] Blood Collection / Unknown 07/08/2024 4:08 AM RESERVATION SALES AGENT 07/08/2024 4:18 AM RESERVATION SALES AGENT Anabel Philip MD CHEMISTRY ORDERABLES Final Resul t Performing Organization Address City/[facility]/ZIP Co de Phone Number [facility] A[facility] CLIA # [id number] [facility] [address] [place] [address] * HEMOGLOBIN A1C (07/06/2024 11:55 PM RESERVATION SALES AGENT) Pathologist [facility] HEMOGLOBIN A1C 5.5 <=5.6 % 07/07/2024 12:40 AM RESERVATION SALES AGENT [facility] EST. AVG GLUCOSE, A1C 111 mg/dL 07/07/2024 12:40 AM RESERVATION SALES AGENT [facility] Blood Collection / Unknown 07/06/2024 11:55 PM RESERVATION SALES AGENT 07/07/2024 12:19 AM RESERVATION SALES AGENT Narrative [facility] - 07/07/2024 12:40 AM RESERVATION SALES AGENT HGB A1C INTERPRETATION NORMAL: <5.7% PRE-DIABETES: 5.7 - 6.4% DIABETES: 6.5% OR GREATER us Protocol Roula Morrison MD CHEMISTRY ORDERABLES Final Result [facility] CLIA # [id number] [facility] [address] [place] [address] * (ABNORMAL) CERV/VAG CYTO SCREEN PAP W/HPV (04/07/2022 12:00 AM CDT) CLINICAL INFORMATION [facility] Comment:SCREENING LAST MENSTRUAL PERIOD [facility] Comment:INFORMATION NOT PROV IDED PREV PAP: [facility] Comment:INFORMATION NOT PROV IDED PREV BX: [facility] Comment:INFORMATION NOT PROV IDED SOURCE [facility] Comment:Endocervix ADEQUACY: [facility] Comment: Satisfactory for evaluation. Endocervical/transformation zone component present. Age and/or menstrual status not provided PAP INTERP [facility] Comment:Negative for intraep ithelial lesion or malignancy. CYTOLOGY INFECTION [facility] Comment: Shift in vaginal colton suggestive of bacterial vaginosis. COMMENT (PAP TEST) [facility] Comment: This Pap test has been evaluated with computer assisted technology. DRIVER'S EDUCATION INSTRUCTOR: [facility] Comment: JAF, CT(ASCP) CT Screening Location: [place] [address] [place] [address] REVIEW DRIVER'S EDUCATION INSTRUCTOR: [employer] GridMarek Chen Comment: [facility], CT(ASCP) CT screening location: [place] [address] [address] [place] [address] [facility] Comment: EXPLANATORY NOTE: The Pap is a [...] information. HPV E6/E7 Detected( A) Not Detected [facility] Comment: Methodology: Director Of Corporate Strategy-Mediated Amplification This assay detects E6/E7 viral messenger RNA (mRNA) from 14 high-risk HPV types (16,18,31,33,35,39,45,51,52,56,58,59,66,68). Cervical sources are required for HPV testing. If a vaginal source from a patient who has had a total hysterectomy with removal of cervix was submitted, please contact the testing laboratory for alternative testing options. For additional information, please refer to http://education.Dana Translation/faq/TWS212h9 (This link if provided for information/ educational purposes only.) Test Performed at: [facility] [address] [address] Willi Gerber D.O., MPH SL Genital SWAB OF ENDOCERVIX / Unknown 04/07/2022 04/07/2022 9:33 PM CDT Hazel Mcadams MD PATHOLOGY/CYTOLOGY ORDERABLES nal Result [facility] [phone] [place] [address] [address] [phone] from Last 3 Months or Most Recently Relevant to Health Maintenance Insurance [employer] OPEN CHOICE PPO [facility] BLUE ACCESS CHOICE Advance Directives For more information, please contact: [phone] * Full Code (Latest Code Status on File) Date Activated Date Inactivated Comments 07/08/2024 6:36 AM 07/08/2024 6:14 PM Care Teams Camera Repairer Relationship Specialty Start Date End Date Geo Duff MD PCP - General Family Practice 07/07/24
--- OUTSIDE RECORDS SUMMARY | 2024-10-06 19:33 | XMS_ITS | Clinical Summary ---
Author Organization [facility] Address [address] [place], [place] [id number] Care Team Providers Care Jewelry Polisher Name Role Phone Pcp, Verify Primary Care [...] on patient's age to complete this topic Hepatitis A Vaccine Aged Out No longe r eligible based on patient's age to complete this topic Meningococcal Serogroup B Vaccine Aged Out No longer eligible based on patient's age to complete this topic Meningococcal Vaccine Aged Out No cosmo jessica eligible based on patient's age to complete this topic Pneumococcal Vaccine 0-49 Aged Out No longer eligible based on patient's age to complete this topic Care Teams Jewelry Polisher Relationship Specialty Start Date End Date Pcp, Verify PCP - General 08/19/21
--- OUTSIDE RECORDS SUMMARY | 2024-10-06 19:33 | XMS_ITS | Patient Health Summary ---
Author Organization [facility] Address [address] [place] [address] Care Team Providers Care Medical Transcription Editor Name Role Phone Jose Alberto Braxton MD Primary Care Provider + [phone] Note from [facility],non-owned Affiliates and Associated Physician Practices is amultiple site organization consisting of ambulatory clinics and hospital sitesin [place], [place], [place] and [place]. This disclosure is being madepursuant to the Care Everywhere program and may not contain all information available regarding this patient. Last updated 18.[facility] Allergies * Latex(Itching) * Reglan(GI Discomfort,Palpitations) * [...] 07/07/2021 Anxiety and depression 08/26/201507/07 Immunizations * Floor64 primary monovalent 12+ yr 0.3mL Purple cap(Given 11/12/2020) * INFLUENZA VACCINE(Given 05/21/2021, 05/22/2016, 05/14/2011) * INFLUENZA VACCINE, CELL [...] Gender Identity Female 08/19/2022 7:56 AM MANAGER PRINTING Sexual Orientation Not on file Last Filed Vital Signs Vital Sign Reading Time Taken Comments Blood Pressure 110/78 03/17/2023 1:17 PM CDT Pulse 88 03/17/2023 1:17 PM CDT Temperature 36.9 C (98.5 F) 03/17/2023 1:17 PM CDT Respiratory Rate 20 08/19/2022 2:34 PM MANAGER PRINTING Oxygen Saturation 99% 03/17/2023 1:17 PM CDT [...] ECHO COMPLETE (11/11/2022 8:40 AM CDT) BSA [id number] m2 [facility] CV FUJI PACS LV biplane [...] CV F UJI PACS LVOT mn dwaine [phone] [id number] m/s [facility] CV FUJI PACS LVOT mn grad [...] PACS LVOT VTI 20.9 cm [facility] CV [facility] I PACS AV area planimetry 2.09 cm2 [...] Modality Ultrasound Narrative 11/11/2022 6:39 PM CDT Left Ventricle: Left ventricle size is normal. Normal wall thickness. Normal systolic function. EF by 2D Membreno biplane is 60%. Normal wall motion. Normal diastolic function. Mitral Valve: Valve structure is normal. No restricted motion. Mild regurgitation. No stenosis. Tricuspid Valve: Valve structure is normal. No restricted [...] and suprasternal views were obtained. History: SVT Procedure Note Ruben Palumbo MD - 11/11/2022 Left Ventricle: Left ventricle size is normal. Normal wall thickness.Normal systolic function. EF by 2D Membreno biplane is 60%. Normal wallmotion. Normal diastolic function. Mitral Valve: Valve structure is normal. No restricted motion. Mildregurgitation. No stenosis. Tricuspid Valve: Valve structure is normal. No restricted motion. Mildregurgitation. The pulmonary artery systolic pressure is normal. RVSP is16.1 mmHg. No stenosis. Ruben Palumbo MD ECHO CUPID * EVENT MONITOR (08/22/2022 12:00 PM MANAGER PRINTING) 08/22/2022 12:0 0 PM MANAGER PRINTING Narrative Procedure Note Molly Redmond DO - 08/22/2022 11:59 PM CST [facility] Event Monitor Report PATIENT NAME: ÁNGELA IBRAHIM MR#: [id number] AGE: 37 CSN: [id number] : 1985 DATE OF ADMISSION: 08/22/2022 DATE [...] IBRAHIM DICTATOR: MOLLY REDMOND DO DICTATED FOR: SMStacy/MODL JOB ID: [id number] Cardiac Catheterization Report Jose Alberto Braxton MD CARDIAC SERVICES ORD ERABLES [facility] * (ABNORMAL) CBC WITH DIFFERENTIAL (08/19/2022 3:05 PM MANAGER PRINTING) Only the most recent of13 resultswithin the [...] x10E9/L [facility] INSURANCE BILL Comment:MPV FL BLOOD ([facility]) 1 0.4 fl 9.4-12.9 Granulocytes % 28.7(L) [...] BLOOD SPECIMEN / Unknown 08/19/2022 3:05 PM MANAGER PRINTING 08/19/2022 Narrative Resulting Agency Comment Lab Testing performed at: [address] [phone] Molly Angeles [employer] - HEMATO LOGY ORDERABLES [facility] INSURANCE BILL [address] [place] [address] * TSH REFLEX FREE T4 (08/19/2022 3:04 PM MANAGER PRINTING) Pathologist [facility] TSH 0.721 0.350 - 4.940 uIU/mL [facility] INSURANCE BILL Blood BLOOD SPECIMEN / Unknown 08/19/2022 3:04 PM MANAGER PRINTING 08/19/2022 Narrative Resulting Agency Comment Lab Testing performed at: [place] [id number] [facility] [id number] Molly Angeles [employer] [facility] - CHEMIS TRY ORDERABLES [facility] INSURANCE BILL [address] [place] [address] * (ABNORMAL) COMPREHENSIVE METABOLIC PANEL (08/19/2022 3:04 PM MANAGER PRINTING) Only the most recent of9 resultswithin the time period is included. Pathologist [facility] Glucose 121(H) 70 - 105 mg/dL [facility] [...] BLOOD SPECIMEN / Unknown 08/19/2022 3:04 PM MANAGER PRINTING 08/19/2022 Narrative Resulting Agency Comment Lab Testing performed at: [address] [phone] Molly Angeles [employer] - CHEMIS TRY ORDERABLES [facility] INSURANCE BILL [address] [place] [address] * HIV-1 HIV-2 ANTIBODY + HIV P24 AG PANEL (07/07/2021 11:19 AM MANAGER PRINTING) Pathologist [facility] HIV Screen 4th Generation w Reflex Non Reactive Non Reactive [facility] INSURANCE BILL Blood BLOOD SPECIMEN / Unknown 07/07/2021 11:19 AM MANAGER PRINTING 07/07/2021 Narrative Resulting Agency Comment Lab Testing performed at[facility] [address] [phone] Jose Alberto Braxton MD LAB - CHEMISTRY TIFFANIE WILLS [facility] INSURANCE BILL [address] [place] [address] * TSH HI LOW REFLEX FREE T4 (07/07/2021 11:19 AM MANAGER PRINTING) Pathologist [facility] TSH 2.852 0.350 - 4.940 uIU/mL [facility] INSURANCE BILL Blood BLOOD SPECIMEN / Unknown 07/07/2021 11:19 AM MANAGER PRINTING 07/07/2021 Narrative Resulting Agency Comment Lab Testing performed at: [address] [phone] Jose Alberto Braxton MD LAB - CHEMISTRY TIFFANIE WILLS [facility] INSURANCE BILL [address] [place] [address] * HEMOGLOBIN A1C (07/07/2021 11:19 AM MANAGER PRINTING) Only the most recent of2 resultswithin the time period is included. Pathologist [facility] Hemoglobin A1c 5.0 4.2 - 5.6 % [facility] INSURANCE BILL Comment: AVERAGE GLUCOSE MG/DL BLOOD 97 mg/dL The following cutoff levels are recommended by [place] [employer]. A1c > 6.5% : considered as diabetes if two separate tests > 6.5% or in an appropriate clinical setting. A1c 5.7% - 6.4% : considered as prediabetes (suggest increa sed risk for diabetes and cardiovascular disease) Control target level: Should be individualized. < 7 for g eneral (non-) , < 8% less stringent goal, < 6.5 more stringent g Hemoglobin A1c measurements are used as an aid in the diagno sis of diabetic mellitus, as an aid to identify patients who may be at the disease. This method may yield falsely low results when fe love hemoglobin (HbF) exceeds 5% in the specimen. Blood BLOOD SPECIMEN / Unknown 07/07/2021 11:19 AM MANAGER PRINTING 07/07/2021 Narrative Resulting Agency Comment Lab Testing performed at: [address] [phone] Jose Alberto Braxton MD LAB - CHEMISTRY TIFFANIE WILLS Performing Organization Address [facility] Co de Phone Number [facility] INSURANCE BILL [address] [place] [address] * (ABNORMAL) LIPID PROFILE (07/07/2021 11:19 AM MANAGER PRINTING) Only the most recent of4 resultswithin the time period is included. Cholesterol 232(H) <200 mg/dL [facility] INSURANCE BILL Triglycerides 134 <150 mg/dL [facility] INSURANCE BILL HDL Cholesterol 58 >40 mg/dL [facility] INSURANCE BILL VLDL Calculated 27 <=30 mg/dL [facility] INSURANCE BILL LDL Calculated 147(H) <130 mg/dL [facility] INSURANCE BILL Blood BLOOD SPECIMEN / Unknown 07/07/2021 11:19 AM MANAGER PRINTING 07/07/2021 Narrative Resulting Agency Comment Lab Testing performed at: [address] [phone] Jose Alberto Braxton MD LAB - CHEMISTRY TIFFANIE WILLS Performing Organization Address City/[facility]/ZIP Co de Phone Number [facility] INSURANCE BILL [address] [place] [address] * PATHOLOGY/CYTOLOGY REPORT ORDER (08/23/2019 8:52 PM MANAGER PRINTING) Only the most recent of2 resultswithin the time period is included. Narrative 08/23/2019 8:52 PM MANAGER PRINTING Ordered by an unspecified provider. Scanned Document [...] MD on 04/20/2019 at 2:58 PM Patito [facility] [place] ORDERABLES * HCG URINE QUALITATIVE - POCT (IP) INTERFACED (04/20/2019 1:05 PM CDT) HCG Qual Urine Negative Negative 04/20/2019 1:10 PM CDT [facility] Urine URINE / Unknown 04/20/2019 1 :05 PM CDT 04/20/2019 1:10 PM CDT Provider Unknown LAB - POINT OF CARE ORDERABLES [facility] [address] [place] [address] * HCG URINE QUAL POCT NOTIFICATION (04/20/2019 12:58 PM CDT) Comment Notification Label Only - See Separate Report 04/20/2019 2:00 PM CDT [facility] Urine URINE / Unknown 04/20/2019 1 2:58 PM CDT 04/20/2019 12:58 PM CDT Patito Kolb PA-C LAB - URINALYSIS O RDERABLES [facility] [address] [address] * (ABNORMAL) BASIC METABOLIC PANEL (CALCIUM TOTAL) (04/20/2019 12:54 PM CDT) Glucose 112(H) 74 - 106 mg/dL 04/20/2019 1:24 PM CDT [facility] Sodium 136 136 - 145 mmol/L 04/20/2019 1:24 PM T [facility] Potassium 3.6 3.5 - 5.1 mmol/L 04/20/2019 1:24 PM T [facility] Chloride 100 98 - 107 mmol/L 04/20/2019 1:24 PM CDT [facility] CO2 23 23 - 31 mmol/L 04/20/2019 1:24 PM CDT [facility] Calcium 9.0 8.4 - 10.2 mg/dL 04/20/2019 1:24 PM CDT [facility] Anion Gap 13 8 - 16 mmol/L 04/20/2019 1:24 PM CDT [facility] BUN 15 7 - 18.7 mg/dL 04/20/2019 1:24 PM CDT [facility] Creatinine 0.92 0.55 - 1.02 mg/dL 04/20/2019 1:24 PM CDT [facility] eGFR by MDRD >60 >60 mL/min/1.7 3m2 04/20/2019 1:24 PM T [facility] eGFR by MDRD >60 >60 mL/min/1.7 3m2 04/20/2019 1:24 PM CDT [facility] Blood BLOOD SPECIMEN / Unknown Venipuncture / Unknown 04/20/2019 12:54 PM CDT 04/20/2019 1:05 PM CDT Patito Kolb PA-C LAB - CHEMISTRY OR DERABLES [facility] [address] [address] * GROSS + MICRO EXAM (STL) (01/23/2019 7:45 AM CDT) Only the most recent of2 resultswithin the time period is included. Case Report Surgical Pathology Report Case: [id number] Authorizing Provider: Drew Orlando MD Collected: 01/23/2019 07:45 AM Ordering Location: [facility] Received: 01/23/2019 12:56 PM Pathologist: Yuni Younger MD Specimens: A) - Cervix Conization, ecto cervix 12 oclock B) - Cervix Conization, endo cervix 01/25/2019 12:03 PM CDT [facility] Final Diagnosis Uterus, cervix, conization: - High-grade squamous intraepithelial lesion (JOSE RAMON-2) - Margins negative for JOSE RAMON-2 Uterus, endocervix, excision: - No evidence of dysplasia or malignancy KL/na 01/25/2019 12:03 PM CDT [facility] Clinical History HGSIL. 01/25/2019 12:03 PM CDT [facility] Gross Description Specimen received in [...] B1 through B2. DELFIN/ 01/25/2019 12:03 PM T [facility] Microscopic Description Histologic sections of the cervix cone show cervix at the transition zone with chronic inflammation and areas of high-grade squamous intraepithelial lesion (JOSE RAMON-2). The margins are negative for high-grade dysplasia. There is no evidence of invasive malignancy. Histologic sections of the endocervix show benign endocervix with no evidence of dysplasia or malignancy. DELFIN/kvng 01/25/2019 12:03 PM T [facility] Disclaimer All histochemical and/or immunohistochemical results are interpreted with controls that demonstrate appropriate staining reactions before reporting results. Note on use of immunocytochemistry reagents: This test was developed and its performance characteristic determined by [facility], Department of Laboratory Medicine. It has not been cleared or approved by the U.S. Food and Drug Administration (FDA). The FDA has determined that such clearance or approval is not necessary. The test is used for clinical purpose. It should not be regarded as investigational or for research. This laboratory is certified to perform high complexity testing. 01/25/2019 12:03 PM [facility] Embedded Images 01/25/2019 12:03 PM T [facility] Pathology/Cytology SPECIMEN FROM LESION OF UTERINE CERVIX OBTAINED BY CONE BIOPSY / Unknown 01/23/2019 7:45 AM CDT 01/23/2019 12:56 PM CDT Miscellaneous samples (specimen) SPECIMEN FROM LESION OF UTERINE CERVIX OBTAINED BY CONE BIOPSY / Unknown 01/23/2019 7:45 AM CDT 01/23/2019 12:56 PM CDT Nolan Orlando MD LAB - PATHOLOGY/CYTO LOGY ORDERABLES [facility] [address] [place] [address] * INFLUENZA A+B - POCT (IP) URGENT CARE (09/25/2017 6:43 PM MANAGER PRINTING) Influenza A Antigen Rapid Negative Negative [facility] POCT TESTING Influenza B Antigen Rapid Negative Negative [facility] POCT TESTING QC Verified Yes Yes [facility] POC T TESTING Throat ENTIRE THROAT (SURFACE REGION OF NECK) / Unknown 09/25/2017 6:43 PM MANAGER PRINTING Monica Ostermiller [employer] LAB - POINT O F CARE ORDERABLES [facility] POCT TESTING [address] [place] [address], [facility] * (ABNORMAL) STREP A SCREEN - POCT (IP) URGENT CARE (09/25/2017 6:37 PM MANAGER PRINTING) Strep A Rapid POCT Positive(A ) Negative [facility] POCT TESTING QC Verified Yes Yes [facility] POC T TESTING Throat ENTIRE THROAT (SURFACE REGION OF NECK) / Unknown 09/25/2017 6:37 PM MANAGER PRINTING Monica Ostermiller [employer] LAB - POINT O F CARE ORDERABLES Performing Organization Address City/[facility] Co de Phone Number [facility] POCT TESTING [address] * VITAMIN D 25-HYDROXY (03/29/2017 11:02 AM CDT) Only the most recent of2 resultswithin the time period is included. Vitamin D, 25 Hydroxy 34.8 30.0 - 100.0 ng/mL [facility] ACCOUNT BILL Comment: Vitamin D deficiency has been defined by the [place] of Medicine and an Endocrine Society practice guideline as a level of serum 25-OH vitamin D less than 20 ng/mL (1,2). The Endocrine Society went on to further define vitamin D insufficiency as a level between 21 and 29 ng/mL (2). 1. IOM ([place] of [employer]). 2010. Dietary reference intakes for calcium and D. [place]: The National Academies Press. 2. Brooke MF, Annette PAYNE, Clarice MORGAN, et al. Evaluation, treatment, and prevention of vitamin D deficiency: an Endocrine Society clinical practice guideline. JCEM. 2010; 96(7):1911-30. FASTING Blood BLOOD SPECIMEN / Unknown 03/29/2017 11:02 AM CDT 03/29/2017 Narrative Resulting Agency Comment [facility] [address] [phone] Avery Hidalgo DO LAB - CHEMISTRY TIFFANIE WILLS Performing Organization Address City/[facility]/ZIP Co de Phone Number [facility] ACCOUNT BILL [address] [place] [address] * TSH (03/29/2017 11:02 AM CDT) Only the most recent of5 resultswithin the time period is included. TSH 1.430 0.450 - 4.500 uIU/mL [facility] ACCOUNT BILL Comment:FASTING Blood BLOOD SPECIMEN / Unknown 03/29/2017 11:02 AM CDT 03/29/2017 Narrative Resulting Agency Comment [facility] [address] [phone] Avery Hidalgo DO LAB - CHEMISTRY TIFFANIE WILLS Performing Organization Address [facility] Co de Phone Number [facility] ACCOUNT BILL [address] [place] [address] * CARDIAC EKG ORDER (12/07/2015 9:03 PM [...] * MONONUCLEOSIS SCREEN (12/04/2015 12:57 PM CDT) [facility] Mononucleosis Screen Negative Negative 12/04/2015 1:20 PM CDT [facility] Blood BLOOD SPECIMEN / Unknown 12/04/2015 12:57 PM CDT 12/04/2015 1:05 PM CDT Lydia Villaseñor MD LAB - CHEMISTRY TIFFANIE [facility] Organization Address City/State/ZIP Co de Phone Number [facility] [address] [place] [address] * EKG 12-LEAD (12/04/2015 12:22 PM CDT) Only the most recent of3 resultswithin the time period is included. [facility] Ventricular Rate 99 BPM [facility] MUSE Atrial Rate 99 BPM [facility] P-R Interval 114 ms [facility] QRS Duration ms 94 ms [facility] Q-T Interval ms 340 ms [facility] MUSE QTC Calculation (Bezet) 436 ms [facility] MUSE Calculated P [place] 70 degrees [facility] MUSE Calculated R [place] 70 degrees [facility] MUSE Calculated T [place] 64 degrees [facility] MUSE Interpretation EKG Normal sinus rhythm RSR' or QR pattern in V1 suggests right ventricular conduction delay When compared with ECG of 02-MAR-2013 19:44, No significant change was found Confirmed by Solomon Lopez ([id number]) on 12/06/2015 10:48:05 AM [facility] MUSE 12/04/2015 12:2 2 PM CDT 12/06/2015 10:48 AM CDT Lydia Villaseñor MD ECG ORDERABLES Performing Organization Address City/[facility]/ZIP Co de Phone Number [facility] MUSE * HCG URINE QUALITATIVE - POINT OF CARE (IP) (12/04/2015 12:16 PM CDT) Only the most recent of3 resultswithin the time period is included. HCG Qual Urine Negative Negative [facility] POCT TESTING QC Verified Yes Yes [facility] POC T TESTING Urine specimen (specimen) URINE / Unknown 12/04/2015 12:16 PM CDT Lydia Villaseñor MD LAB - POINT OF CARE ORDERABLES Performing Organization Address [facility] Co de Phone Number [facility] POCT TESTING [facility] [place] [address], [facility] * (ABNORMAL) URINALYSIS ROUTINE W/REFLEX TO CULTURE (12/04/2015 12:04 PM CDT) Color UA Yellow Straw, Yellow, Dark Yellow 12/04/2015 12:19 PM CDT [facility] Clarity UA Clear 12/04/2015 12:19 PM CDT [facility] Specific [place] UA 1.014 1.005 - 1.030 12/04/2015 12:19 PM CDT [facility] pH UA 8.5(H) 5.0 - 8.0 pH 12/04/2015 12:19 PM CDT [facility] Protein UA Negative Negative 12/04/2015 12:19 PM CDT [facility] Blood UA Negative Negative 12/04/2015 12:19 PM CDT [facility] Leukocyte UA Trace(A) Negative 12/04/2015 12:19 PM CDT [facility] Nitrite UA Negative Negative 12/04/2015 12:19 PM CDT [facility] Glucose UA Negative Negative 12/04/2015 12:19 PM CDT [facility] Ketone UA Negative Negative 12/04/2015 12:19 PM CDT [facility] Bilirubin UA Negative Negative 12/04/2015 12:19 PM CDT [facility] Urobilinogen UA 0.2 0.1 - 1.0 EU/dL 12/04/2015 12:19 PM T [facility] WBC UA Auto 0-2 0-2, 2-5 # /hpf 12/04/2015 12:19 PM CDT [facility] RBC UA Auto 2-5 0-2, 2-5 # /hpf 12/04/2015 12:19 PM T [facility] Epithelial Cell UA Auto 2-5 0-2, 2-5 # /hpf 12/04/2015 12:19 PM [facility] Bacteria UA Auto 1+(A) None seen 12/04/2015 12:19 PM T [facility] Reflex Status Culture to follow 12/04/2015 12:19 PM T [facility] Urine URINE SPECIMEN OBTAINED BY CLEAN CATCH PROCEDURE / Unknown 12/04/2015 12:04 PM CDT 12/04/2015 12:10 PM CDT Lydia Villaseñor MD LAB - URINALYSIS ORD ERABLES [facility] [address] [place] [address] * CULTURE URINE (12/04/2015 12:04 PM CDT) Only the most recent of2 resultswithin the time period is included. Culture <10,000 CFU/mL urogenital colton KERVIN 12/06/2015 7:38 AM CDT [facility] MICROBIOLOGY Urine URINE SPECIMEN OBTAINED BY CLEAN CATCH PROCEDURE / Unknown 12/04/2015 12:04 PM CDT 12/04/2015 12:10 PM CDT Lydia Villaseñor MD LAB - MICROBIOLOGY O RDERABLES [facility] MICROBIOLOGY [address] [place] [address], [facility] [phone] * XR CHEST 1VW PORTABLE (12/04/2015 12:02 [...] TCHOL/HDL (PO REF LAB) (10/15/2015 9:20 AM MANAGER PRINTING) Cholesterol 199 <200 mg/dL [facility] INSURANCE BILL Triglycerides 133 <150 mg/dL [facility] INSURANCE BILL HDL Cholesterol 66 >40 mg/dL [facility] INSURANCE BILL VLDL Calculated 27 <=30 mg/dL [facility] INSURANCE BILL LDL Calculated 106 <130 mg/dL [facility] INSURANCE BILL Comment:LDL/HDL RATIO BLOOD ([facility]) 1.6 <5.0 Cholesterol/HDL Ratio 3.0 <4.5 [facility] INSURANCE BILL Blood specimen (specimen) BLOOD SPECIMEN / Unknown 10/15/2015 9:20 AM MANAGER PRINTING 10/15/2015 3:44 PM MANAGER PRINTING Narrative Resulting Agency Comment [address] [phone] Avery Hidalgo DO LAB - CHEMISTRY TIFFANIE [place] Organization Address City/State/ZIP Co de Phone Number [facility] INSURANCE BILL * T4 FREE (10/15/2015 9:20 AM MANAGER PRINTING) Only the most recent of2 resultswithin the time period is included. T4 Free 0.86 0.65 - 1.34 ng/dL [facility] INSURANCE BILL Blood specimen (specimen) BLOOD SPECIMEN / Unknown 10/15/2015 9:20 AM MANAGER PRINTING 10/15/2015 3:44 PM MANAGER PRINTING Narrative Resulting Agency Comment [facility] [address] [place] [address] [phone] Avery Hidalgo DO LAB - CHEMISTRY TIFFANIE WILLS [facility] INSURANCE BILL * ALBUMIN URINE TIMED (06/05/2015 10:56 AM CDT) Albumin Random Urine <5.0 Not Established mcg/mL [facility] Collection Time Timed Urine 24 Hrs THE [...] URINE CHEMISTR Y ORDERABLES Performing Organization Address [facility] Co de Phone Number [address] [phone] * PROTEIN URINE TIMED QUANTITATIVE (06/05/2015 10:56 AM CDT) Protein Urine <7 Not Established mg/dL [facility] Collection Time Timed Urine 24 Hrs [facility] Protein 24 Hour Urine 77 - 197 mg/24 hrs [facility] Comment:Unable to calculate excretion rate because the analyte concentration is outside the instrument measuring range. Volume Timed Urine 1,550 mL [facility] Urine specimen (specimen) URINE SPECIMEN OBTAINED BY CLEAN CATCH PROCEDURE / Unknown 06/05/2015 10:56 AM CDT 06/05/2015 1:15 PM CDT Annette Singh MD LAB - URINE CHEMISTR Y ORDERABLES Performing Organization Address City/[facility]/ZIP Co de Phone Number [address] [place] [phone] * CREATININE BLOOD (06/05/2015 10:56 AM CDT) Creatinine 0.8 0.6 - 1.2 mg/dL [facility] eGFR >60 >60 mL/min/1.73 m2 [facility] Blood specimen (specimen) BLOOD SPECIMEN / Unknown 06/05/2015 10:56 AM CDT 06/05/2015 1:15 PM CDT Annette Singh MD LAB - CHEMISTRY ORDE RABLES [address] [phone] * CREATININE CLEARANCE URINE TIMED + BLOOD (06/05/2015 10:56 AM CDT) Only the most recent of2 resultswithin the time period is included. Creatinine Urine 59 Not Established mg/dL THE [...] MD LAB - URINE CHEMISTR Y ORDERABLES [address] [phone] * XR CHEST 2VW (06/01/2015 8:12 AM CDT) Only the most recent of4 resultswithin the time period is included. Anatomical Region Laterality Modality Chest Other Impressions 06/01/2015 12:11 PM CDT Impression: No acute pulmonary disease. Report dictated by Jovany Sears M.D. (enrollment management vice president). This report was approved by Jovany Sears M.D. on 06/01/2015 11:[address] MATTHEW Shipley MD have personally reviewed and interpreted this examination/study. This report was electronically signed by Dr. MATTHEW TAYLOR MD on 06/01/2015 12:11 PM . Narrative 06/01/2015 12:11 PM CDT Exam: XR CHEST PA AND LATERAL Date: [...] disease. Report dictated by Jovany Sears M.D. (enrollment management vice president). This report was approved by Jovany Sears M.D. on 06/01/2015 11:50AM . Dr. Dr. MATTHEW Shipley MD have personally reviewed and interpreted thisexamination/study. This report was electronically signed by Dr. MATTHEW TAYLOR MD on06/01/2015 12:11 PM . Annette Singh MD DIAGNOSTIC IMAGING O RDERABLES * PTT U (06/01/2015 7:43 AM CDT) APTT 28.6 23.0 - 38.4 Seconds [facility] Comment:Suggested therapeuti c range for full dose I.V. heparin therapy for venous thromboembolism is 66.0-91.0 seconds. Blood specimen (specimen) BLOOD SPECIMEN / Unknown 06/01/2015 7:43 AM CDT 06/01/2015 8:48 AM CDT Narrative [facility] - 06/01/2015 9:11 AM CDT Is patient on Heparin, Argatroban or Dabigatran?->N Annette Singh MD LAB - COAGULATION OR DERABLES Performing Organization Address [facility] Co de Phone Number [address] [phone] * PT-INR [facility] (06/01/2015 7:43 AM CDT) Pathologist [facility] PT 14.6 12.1 - 14.8 Seconds [facility] INR 1.1 See Comment [facility] Comment: Suggested therapeutic range for low-intensity coumadin therapy for venous thromboembolism prophylaxis is an INR of 2.0-3.0. For high risk patients (Mitral Valve Prosthesis, Atrial Fibrillation, history of TIA/stroke), suggested prophylactic therapeutic range is an INR of 2.5-3.5. Blood specimen (specimen) BLOOD SPECIMEN / Unknown 06/01/2015 7:43 AM CDT 06/01/2015 8:48 AM CDT Narrative [facility] - 06/01/2015 9:10 AM CDT Is patient on Heparin, Argatroban or Dabigatran?->N Annette Singh MD LAB - COAGULATION OR DERABLES Performing Organization Address [facility] Co de Phone Number [address] [phone] * (ABNORMAL) CYTOMEGALOVIRUS AB IGG/IGM RFLXD (06/01/2015 7:43 AM CDT) Cytomegalovirus Antibody IgG 5.50(H) 0.00 - 0.59 U/mL [facility] ([email or web address]) Comment: Negative <0.60 Equivocal 0.60 - 0.69 Positive >0.69 Cytomegalovirus Antibody IgM <30.0 0.0 - 29.9 AU/mL [facility] (BEAKER) Comment: Negative <30.0 Equivocal 30.0 - 34.9 Positive >34.9 A positive result is generally indicative of acute infection, reactivation or persistent IgM production. Blood specimen (specimen) BLOOD SPECIMEN / Unknown 06/01/2015 7:43 AM CDT 06/01/2015 8:59 AM CDT Narrative [facility] ([facility]) - 06/05/2015 3:21 PM CDT Performed at: [address] [place] [address] [id number] Well Tender: Willi Horne MD, Phone: [phone] Annette Singh MD LAB - SEROLOGY ORDER SHARON Performing Organization Address City/[facility] Co de Phone Number [facility] ([facility]) * TREPONEMA PALLIDUM AB IGG DONOR (06/01/2015 7:43 AM CDT) Donor Treponema pallidum Antibody IgG Non Reactive Non Reactive [facility] ([facility]) Comment: Test performed with Intro[employer]ive CAPTIA Syphilis (T. pallidum)-G kit. Blood specimen (specimen) BLOOD SPECIMEN / Unknown 06/01/2015 7:43 AM CDT 06/01/2015 9:18 AM CDT Narrative [facility] ([facility]) - 06/02/2015 7:10 PM CDT Performed at: [facility] [employer] [address] [id number] Well Tender: Andry Ty PhD, Phone: [phone] Annette Singh MD LAB - SEROLOGY ORDER SHARON Performing Organization Address City/[facility] Co de Phone Number [facility] ([facility]) * HIV-1/HCV MACIEJ DONOR (06/01/2015 7:43 AM CDT) HIV-1/HCV/HBV MACIEJ Comment Non Reactive [facility] ([facility]) Comment: Nonreactive for HIV-1 RNA Nonreactive for HCV RNA Nonreactive for HBV DNA Test performed with [employer] Ultrio Assay kit. Blood specimen (specimen) BLOOD SPECIMEN / Unknown 06/01/2015 7:43 AM CDT 06/01/2015 8:59 AM CDT Narrative [facility] ([facility]) - 06/02/2015 7:10 PM CDT Performed at: [facility] [employer] [address] [place] [address] [id number] Well Tender: Andry Ty PhD, Phone: [phone] Annette Singh MD LAB - CHEMISTRY TIFFANIE WILLS Performing Organization Address [facility]/ZIP Co de Phone Number [facility] ([facility]) * HIV 1/0/2 DONOR (06/01/2015 7:43 AM CDT) Donor HIV-1/O/2 Antibody Negative Negative [facility] ([facility]) Comment:Test performed with Sims Prism HIV O Plus kit. Blood specimen (specimen) BLOOD SPECIMEN / Unknown 06/01/2015 7:43 AM CDT 06/01/2015 9:18 AM CDT Narrative [facility] ([facility]) - 06/03/2015 6:16 AM CDT Performed at: [facility] [employer] [address] [place] [address] [id number] Well Tender: Andry Ty PhD, Phone: [phone] Annette Singh MD LAB - CHEMISTRY TIFFANIE WILLS Performing Organization Address [facility] Co de Phone Number [facility] ([facility]) * HEPATITIS B SURFACE ANTIGEN RFLX DONOR (06/01/2015 7:43 AM CDT) Hepatitis B Virus Surface Antigen Negative Negative [facility] ([facility]) Comment:Test performed with Sims Prism HBsAg kit. Blood specimen (specimen) BLOOD SPECIMEN / Unknown 06/01/2015 7:43 AM CDT 06/01/2015 9:18 AM CDT Narrative [facility] ([facility]) - 06/03/2015 6:16 AM CDT Performed at: [facility] [employer] [address] [place] [address] [id number] Well Tender: Andry Ty PhD, Phone: [phone] Annette Singh MD LAB - CHEMISTRY TIFFANIE WILLS Performing Organization Address City/[facility]/ZIP Co de Phone Number [facility] ([facility]) * (ABNORMAL) CYTOMEGALOVIRUS TOT AB RFLX IGG/IGM DONOR (06/01/2015 7:43 AM CDT) Donor Cytomegalovirus Total Antibody Reactive( A) Non Reactive [facility] ([facility]) Comment:Test performed with Immucor Capture-CMV IgG and IgM kit. Blood specimen (specimen) BLOOD SPECIMEN / Unknown 06/01/2015 7:43 AM CDT 06/01/2015 8:59 AM CDT Narrative [facility] ([facility]) - 06/05/2015 3:21 PM CDT Performed at: [facility] [employer] [address] [place] [address] [id number] Well Tender: Andry Ty PhD, Phone: [phone] Annette Singh MD LAB - SEROLOGY ORDER SHARON Performing Organization Address City/[facility]/ZIP Co de Phone Number [facility] ([facility]) * HEPATITIS C AB W RFLX VERIFICATION (06/01/2015 7:43 AM CDT) Pathologist [facility] Hepatitis C Antibody <0.1 0.0 - 0.9 s/co ratio [facility]) 06/01/2015 7:43 AM CDT 06/01/2015 9:18 AM CDT Narrative [facility]) - 06/02/2015 6:15 AM CDT Performed at: [address] [place] [address] [id number] Well Tender: Erasmo [place] PhD, Phone: [phone] Annette Singh MD LAB - CHEMISTRY TIFFANIE WILLS [facility] ([facility]) * QUANTIFERON TB-GOLD INC (06/01/2015 7:43 AM CDT) Pathologist [facility] QuantiFERON TB Gold Negative Negative [facility]) Comment: The specimen received for QuantiFERON testing was incubated by the ordering institution. Specific procedures outlined in our Directory of Services and in the package insert for the QuantiFERON Gold (In Tube) test must be followed to enable for proper stimulation of cells for the production of interferon gamma. QuantiFERON Criteria Comment [facility] ([facility]) Comment: To be considered positive a specimen [...] values. QuantiFERON TB Antigen Value 0.13 IU/mL [facility] (BEAKER) QuantiFERON Nil Value 0.16 IU/mL [facility] (BEAKER) QuantiFERON Mitogen Value >10.00 IU/mL [facility] (iLost) QFT TB Ag minus Nil Value <0.00 IU/mL [facility] (BEAKER) Interpretation Comment [facility] ([facility]) Comment: The QuantiFERON TB Gold [...] AM CDT 06/01/2015 8:47 AM CDT Narrative [facility] ([place]) - 06/04/2015 6:14 AM CDT Performed at: - [address] [id number] Well Tender: Erasmo [place] PhD, Phone: [phone] Annette Singh MD LAB - SEROLOGY ORDER SHARON [facility]) * (ABNORMAL) URINALYSIS W/MICROSCOPIC NO CULTURE (06/01/2015 7:43 AM CDT) Color UA Yellow Straw, Yellow, Colorless, Light Yellow [facility] Clarity UA Clear Clear [facility] Specific [place]don UA 1.012 1.001 - 1.030 [facility] pH UA 5.0 5.0 - 8.0 [facility] Protein UA Negative <=20 mg/dL [facility] Glucose UA 300(A) Negative mg/dL [facility] Ketone UA Negative Negative mg/dL [facility] Bilirubin UA Negative Negative mg/dL [facility] Blood UA Negative Negative [facility] Nitrite UA Negative Negative [facility] Leukocyte Esterase Moderate(A) Negative [facility] Urobilinogen UA <2.0 <2.0 mg/dL [facility] RBC UA 1 0 - 8 /HPF [facility] WBC UA 6(H) 0 - 2 /HPF [facility] Bacteria UA Occasional Rare, Occasional, None /HPF [facility] Squamous Epithelial Cells UA 1 0 - 1 /HPF [facility] Mucus UA Many(A) None /LPF [facility] Urine specimen (specimen) URINE SPECIMEN OBTAINED BY CLEAN CATCH PROCEDURE / Unknown 06/01/2015 7:43 AM CDT 06/01/2015 8:47 AM CDT Annette Singh MD LAB - URINALYSIS ORD ERABLES [address] [phone] * REF LAB COMMENT (06/01/2015 7:43 AM CDT) Comment Comment [facility] ([place]) Comment: Non reactive HCV antibody screen is consistent with no HCV infection, unless recent infection is suspected or other evidence exists to indicate HCV infection. Blood specimen (specimen) 06/01/2015 7:43 AM CDT 06/01/2015 9:18 AM CDT Narrative [facility] ([place]) - 06/02/2015 6:15 AM CDT Performed at: [address] [place] [address] [id number] Well Tender: Erasmo [place] PhD, Phone: [phone] Annette Singh MD LAB - CHEMISTRY TIFFANIE WILLS [facility]) * HEPATITIS B SURFACE ANTIBODY QUANT (06/01/2015 7:43 AM CDT) Pathologist [facility] Hepatitis B Virus Surface Antibody Quantitative 112.6 Immunity>9 .9 mIU/mL [facility] ([facility]) Comment: Status of Immunity Anti-HBs Level Inconsistent with Immunity 0.0 - 9.9 Consistent with Immunity >9.9 Blood specimen (specimen) BLOOD SPECIMEN / Unknown 06/01/2015 7:43 AM CDT 06/01/2015 9:18 AM CDT Narrative [facility]) - 06/02/2015 6:15 AM CDT Performed at: [address] [place] [address] [id number] Well Tender: Erasmo [place] PhD, Phone: [phone] Annette Singh MD LAB - SEROLOGY ORDER SHARON Performing Organization Address City/[facility] Co de Phone Number [facility]) * DRUG ABUSE PANEL 10-20+ETHANOL URINE NO CONFIRM (06/01/2015 7:43 AM CDT) Pathologist [facility] Amphetamines Screen Urine Negative Negative: < 1000 ng/mL [facility] Barbiturates Screen Urine Negative Negative: < 200 ng/mL [facility] Benzodiazepine Screen Urine Negative Negative: < 200 ng/mL [facility] Opiates Urine Negative Negative: < 300 ng/mL [facility] Cocaine Metabolites Urine Negative Negative: < 300 ng/mL [facility] Phencyclidine Screen Urine Negative Negative: < 25 ng/ml [facility] Cannabinoids Screen Urine Negative Negative: <50 ng/mL [facility] Methadone Screen Urine Negative Negative: < 300 ng/mL [facility] Urine specimen (specimen) URINE / Unknown 06/01/2015 7:43 AM CDT 06/01/2015 8:46 AM CDT Narrative [facility] - 06/01/2015 9:05 AM CDT The Urine Toxicology Screening Panel does not screen for Propoxyphene, Meprobamate, Carisoprodol, Trazodone, bngj-mpm-stwoprr medications and/or volatiles (Acetone, Isopropanol, Methanol or Ethylene Glycol). Ethanol, Salicylate, Acetaminophen, Tricyclic Antidepressants and several therapeutic drugs may be individually assayed in serum or plasma specimen. Toxicology testing by the [facility] is an aid to medical diagnosis and treatment of patients. No documented chain of custody was maintained. Results are intended to be used for clinical purposes only. Annette Singh MD LAB - URINE CHEMISTR Y ORDERABLES Performing Organization Address City/[facility]/ZIP Co de Phone Number [address] [phone] * URIC ACID BLOOD (06/01/2015 7:43 AM CDT) Uric Acid 5.0 2.6 - 7.2 mg/dL [facility] Blood specimen (specimen) BLOOD SPECIMEN / Unknown 06/01/2015 7:43 AM CDT 06/01/2015 8:48 AM CDT Annette Singh MD LAB - CHEMISTRY ORDE RABLES Performing Organization Address City/[facility]/ZIP Co de Phone Number [address] [phone] * WEST NILE VIRUS ANTIBODY IGG/IGM PANEL (06/01/2015 7:43 AM CDT) West Nile Virus AB IGG Negative Negative [facility] ([employer]) Comment: No detectable West Nile Virus IgG Antibody. If a recent infection is suspected, another specimen should be submitted for testing within 7-14 days. West Nile Virus AB IGM Negative Negative [facility] ([employer]) Comment: No detectable West Nile Virus IgM Antibody. If a recent infection is suspected, another specimen should be submitted for testing within 7-14 days. Blood specimen (specimen) BLOOD SPECIMEN / Unknown 06/01/2015 7:43 AM CDT 06/01/2015 9:18 AM CDT Narrative [facility] ([facility]) - 06/03/2015 3:19 PM CDT Performed at: [address] [place] [address] [id number] Well Tender: Willi Horne MD, Phone: [phone] Annette Singh MD LAB - CHEMISTRY ORDE JOHANN Performing Organization Address City/[facility]/ZIP Co de Phone Number [facility] ([facility]) * STRONGYLOIDES ANTIBODY IGG (06/01/2015 7:43 AM CDT) Strongyloides Antibody IgG 0.01 <=1.49 IV [facility] ([facility]) Comment: INTERPRETIVE INFORMATION: Strongyloides Ab, IgG by TOMY 1.49 IV or less....... Negative - No significant level of Strongyloides IgG antibody detected. 1.50 - 2.10 IV ....... Equivocal - Questionable presence of Strongyloides IgG antibody detected. Repeat testing in 10-14 days may be helpful. 2.11 IV or greater ... Positive - IgG antibodies to Strongyloides detected, which may suggest current or past infection. Test developed and characteristics determined by [facility]. See Compliance Statement D: [email or web address] Blood specimen (specimen) BLOOD SPECIMEN / Unknown 06/01/2015 7:43 AM CDT 06/01/2015 9:18 AM CDT Annette Singh MD LAB - SEROLOGY ORDER SHARON Performing Organization Address City/[facility]/ZIP Co de Phone Number [facility] ([facility]) * EDWIN-MONTOYA VIRUS ANTIBODY TO VCA IGM (06/01/2015 7:43 AM CDT) Edwin-Montoya VCA Antibody IgM <10.0 0.0 - 43.9 U/mL [facility] ([facility]) Comment: INTERPRETIVE INFORMATION: Edwin-Montoya Virus Antibody to Viral Capsid Antigen, IgM 35.9 U/mL or less.......Not Detected 36.0-43.9 U/mL..........Indeterminate - Repeat testing in 10-14 days may be helpful. 44.0 U/mL or greater....Detected Interpretive information regarding serologic features of EBV-associated diseases is available at [email or web address]. Blood specimen (specimen) BLOOD SPECIMEN / Unknown 06/01/2015 7:43 AM CDT 06/01/2015 9:18 AM CDT Annette Singh MD LAB - SEROLOGY ORDER SHARON [facility] ([facility]) * RPR (06/01/2015 7:43 AM CDT) RPR Non-reacti ve Non-reacti ve [facility] Blood specimen (specimen) BLOOD SPECIMEN / Unknown 06/01/2015 7:43 AM CDT 06/01/2015 8:50 AM CDT Annette Singh MD LAB - CHEMISTRY ORDE RABLES Performing Organization Address [facility] Co de Phone Number [address] [phone] * (ABNORMAL) EDWIN-MONTOYA VIRUS ANTIBODY TO VCA IGG (06/01/2015 7:43 AM CDT) Edwin-Montoya Virus Antibody To Viral Capsid Antigen IgG 114.0(H) 0.0 - 21.9 U/mL [facility] ([place]) Comment: INTERPRETIVE INFORMATION: Edwin-Montoya Virus Antibody to Viral Capsid Antigen, IgG 17.9 U/mL or less.......Not Detected 18.0-21.9 U/mL..........Indeterminate - Repeat testing in 10-14 days may be helpful. 22.0 U/mL or greater....Detected Interpretive information regarding serologic features of EBV-associated diseases is available at [email or web address]. Blood specimen (specimen) BLOOD SPECIMEN / Unknown 06/01/2015 7:43 AM CDT 06/01/2015 9:18 AM CDT Annette Singh MD LAB - CHEMISTRY TIFFANIE WILLS [facility] ([facility]) * NICOTINE + METABOLITES BLOOD (06/01/2015 7:43 AM CDT) Nicotine None Detected ng/mL [facility] ([facility]) Comment: Nicotine levels greater than 2.0 are consistent with the use of tobacco or tobacco cessation products. Cotinine None Detected ng/mL [facility] ([facility]) Comment: Cotinine levels greater than 20.0 are consistent with the use of tobacco or tobacco cessation products. Blood specimen (specimen) BLOOD SPECIMEN / Unknown 06/01/2015 7:43 AM CDT 06/01/2015 8:48 AM CDT Narrative [facility] ([facility]) - 06/07/2015 7:06 PM CDT Performed at: [address] [place] [address] [id number] Well Tender: Willi Horne MD, Phone: [phone] Annette Singh MD LAB - CHEMISTRY TIFFANIE WILLS [facility]) * PHOSPHORUS BLOOD (06/01/2015 7:43 AM CDT) [facility] Phosphorus 2.4 2.3 - 4.7 mg/dL [facility] Blood specimen (specimen) BLOOD SPECIMEN / Unknown 06/01/2015 7:43 AM CDT 06/01/2015 8:48 AM CDT Annette Singh MD LAB - CHEMISTRY TIFFANIE WILLS [address] [phone] * HEPATITIS B CORE ANTIBODY (06/01/2015 7:43 AM CDT) [facility] HBc Antibody Total Non-reacti ve Non-reacti ve [facility] Blood specimen (specimen) BLOOD SPECIMEN / Unknown 06/01/2015 7:43 AM CDT 06/01/2015 8:50 AM CDT Annette Singh MD LAB - CHEMISTRY TIFFANIE WILLS Performing Organization Address [facility] Co de Phone Number [address] [phone] * ALCOHOL ETHYL BLOOD (06/01/2015 7:43 AM CDT) Pathologist [facility] Interpretation Ethanol None Detected None Detected mg/dL [facility] Comment:Ethanol levels less than 10 mg/dL are resulted as None detected . Blood specimen (specimen) BLOOD SPECIMEN / Unknown 06/01/2015 7:43 AM CDT 06/01/2015 8:48 AM CDT Annette Singh MD LAB - CHEMISTRY TIFFANIE WILLS Performing Organization Address [facility] de Phone Number [address] [phone] * (ABNORMAL) HEPATITIS A ANTIBODY (06/01/2015 7:43 AM CDT) Pathologist [facility] Hepatitis A Virus Antibody Total Positive(A ) Negative [facility] ([facility]) Blood specimen (specimen) 06/01/2015 7:43 AM CDT 06/01/2015 9:18 AM CDT Narrative [facility] ([facility]) - 06/02/2015 6:15 AM CDT Performed at: [facility] [id number] Well Tender: Erasmo [place] PhD, Phone: [phone] Annette Singh MD LAB - CHEMISTRY TIFFANIE WILLS Performing Organization Address [facility] Co de Phone Number [facility]) * HLA TYPING SEROLOGIC DR,DQ (05/18/2015 8:49 AM CDT) Pathologist [facility] DR1 1 [facility] ([facility]) DR2 11 [facility] ([facility]) DRW-1 52 [facility] ([facility]) DRW-2 - [facility] ([facility] DQ 1 5 [facility] ([facility]) DQ 2 7 [facility] ([facility]) DRDQ Test Date 05/28/20 15 [facility] ([facility]) Comment: This test was developed and its performance characteristics determined bythe [facility]. It has not been cleared or approved by the.. Food and Drug Administration. The FDA has determined that suchclearance or approval is not necessary. This test is used for clinicalpurposes. It should not be regarded as investigational or for research.This laboratory is certified under the Clinical Laboratory ImprovementAmendments of 1988 (CLIA-88) as qualified to perform high complexityclinical laboratory testing.Performed at: [facility], [address] @ [place] [id number] Director: Douglas Pham MD, Blood specimen (specimen) BLOOD SPECIMEN / Unknown 05/18/2015 8:49 AM CDT 05/18/2015 9:09 AM CDT Annette Singh MD LAB - BLOOD BANK ORD ERABLES [facility] ([facility]) * HLA TYPING A,B,C MULTIPLE ANTIGEN (05/18/2015 8:49 AM CDT) ABC Serotype A1 1 [facility] ([facility]) ABC Serotype A2 2 [facility] ([facility] ABC Serotype B1 8 [facility] ([facility]) ABC Serotype B2 51 [facility] ([facility]) ABC Serotype BW1 6 [facility] ([facility] ABC Serotype BW2 4 [facility] ([facility]) ABC Serotype Cw-1 2 [facility] ([facility]) ABC Serotype Cw-2 5 [facility] ([facility]) ABC Serotype Test Date 05/28/20 15 [facility] ([facility]) Comment: This test was developed and its performance characteristics determined bythe [facility]. It has not been cleared or approved by the.. Food and Drug Administration. The FDA has determined that suchclearance or approval is not necessary. This test is used for clinicalpurposes. It should not be regarded as investigational or for research.This laboratory is certified under the Clinical Laboratory ImprovementAmendments of 1988 (CLIA-88) as qualified to perform high complexityclinical laboratory testing.Performed at: [facility], [address] [place] [id number] Director: Douglas Pham MD, Blood specimen (specimen) BLOOD SPECIMEN / Unknown 05/18/2015 8:49 AM CDT 05/18/2015 9:09 AM CDT Annette Singh MD LAB - BLOOD BANK ORD ERABLES [facility] ([facility]) * TYPE + SCREEN PANEL (05/18/2015 8:49 AM CDT) Only the most recent of2 resultswithin the time period is included. Typem O POS [facility] Antibody Screen NEG [facility] Blood specimen (specimen) 05/18/2015 8:49 AM CDT 05/18/2015 9:12 AM CDT Annette Singh MD LAB - BLOOD BANK ORD ERABLES [facility] [address] * (ABNORMAL) URINALYSIS ROUTINE AUTO (01/01/2015 2:10 AM CDT) Only the most recent of2 resultswithin the time period is included. Color UA Yellow Straw, Yellow, Dark Yellow 01/01/2015 2:24 AM CDT [facility] Clarity UA Clear 01/01/2015 2:24 AM CDT [facility] Specific [place] UA 1.021 1.005 - 1.030 01/01/2015 2:24 AM CDT [facility] pH UA 5.5 5.0 - 8.0 pH 01/01/2015 2:24 AM CDT [facility] Protein UA Negative Negative 01/01/2015 2:24 AM CDT [facility] Blood UA Negative Negative 01/01/2015 2:24 AM T [facility] Leukocyte UA 2+(A) Negative 01/01/2015 2:24 AM CDT [facility] Nitrite UA Negative Negative 01/01/2015 2:24 AM [facility] Glucose UA Negative Negative 01/01/2015 2:24 AM [facility] Ketone UA 1+(A) Negative 01/01/2015 2:24 AM T [facility] Bilirubin UA Negative Negative 01/01/2015 2:24 AM [facility] Urobilinogen UA 0.2 0.1 - 1.0 EU/dL 01/01/2015 2:24 AM [facility] WBC UA Auto 20-50(A) 0-2, 2-5 # /hpf 01/01/2015 2:24 AM [facility] RBC UA Auto 2-5 0-2, 2-5 # /hpf 01/01/2015 2:24 AM [facility] Epithelial Cell UA Auto 2-5 0-2, 2-5 # /hpf 01/01/2015 2:24 AM [facility] Bacteria UA Auto 1+(A) None seen 01/01/2015 2:24 AM [facility] Hyaline Casts UA Auto 2-5(A) 0 - 2 #/lpf 01/01/2015 2:24 AM [facility] Urine Microscopy Urine microscopy not indicated 01/01/2015 2:24 AM [facility] Urine URINE SPECIMEN OBTAINED BY CLEAN CATCH PROCEDURE / Unknown 01/01/2015 2:10 AM CDT 01/01/2015 2:15 AM T Jayne Chen MD LAB - URINALYSIS ORD ERABLES [facility] [address] [address] * LIPASE BLOOD (01/01/2015 1:04 AM CDT) Only the most recent of3 resultswithin the time period is included. Lipase 141 73 - 393 U/L 01/01/2015 1:31 AM [facility] Blood BLOOD SPECIMEN / Unknown 01/01/2015 1:04 AM CDT 01/01/2015 1:13 AM CDT Jayne Chen MD LAB - CHEMISTRY TIFFANIE WILLS [facility] [address] [address] * (ABNORMAL) CULTURE STREP GROUP A (10/14/2014 3:51 PM MANAGER PRINTING) Pathologist [facility] Beta-Strep Culture, Group A Only (A) [facility] [...] OF NECK) / Unknown 10/14/2014 3:51 PM MANAGER PRINTING 10/14/2014 9:09 PM MANAGER PRINTING Narrative Resulting Agency Comment [facility] [address] [phone] Jeremie Kolb MD LAB - MICROBIOLOGY O RDERABLES [facility] ACCOUNT BILL * STREP A SCREEN - POINT OF CARE (AMB) (10/14/2014 3:50 PM MANAGER PRINTING) Pathologist [facility] Strep A Rapid POCT Negative Negative Strep A Internal Control NEGATIVE - POSITIVE Throat swab (specimen) NASOPHARYNGEAL SWAB / Unknown 10/14/2014 3:50 PM MANAGER PRINTING Jeremie Kolb MD LAB - POINT OF CARE ORDERABLES * HCG URINE QUALITATIVE - POCT (IP) URGENT CARE (11/08/2013 4:48 PM CDT) Pathologist [facility] HCG Qual Urine Negative Negative [facility] POCT TESTING QC Verified Yes Yes [facility] POC T TESTING Urine specimen (specimen) URINE / Unknown 11/08/2013 4:48 PM CDT Tana Sosa [employer] LAB - POI OF CARE ORDERABLES [facility] POCT TESTING [address] [place] [address] * CARDIAC RHYTHM STRIP ORDER (04/20/2013 9:29 PM CDT) Narrative 04/20/2013 9:29 PM CDT Ordered by an unspecified provider. Transcriptions Document, Scanned - 04/20/2013 9:29 PM CDT Scanned Document CARDIAC SERVICES ORD ERABLES * ENDOSCOPY, COLON, DIAGNOSTIC (04/19/2013 11:09 AM CDT) Narrative Riya Martinez - 04/19/2013 11:09 AM CDT Josiah Breen MD 04/19/2013 11:09 AM EGD- Minimal distal esophageal erythema, biopsies taken. Otherwise, normal except scant clear fluid. Random duodenal biopsies taken. Colon- Normal exam to ileum. Random ileal and colon biopsies taken. Stool collected. A/P: F/U stool studies and biopsies. Will follow up in office. A scan was deleted from the Results section by Eloy Martinez [[email or web address]] on 04/25/2013 at 9:06 AM (File: [id number]) Reason: linked to wrong order Procedure Note [...] Negative Negative, Uninterpretable 3 5:34 PM CDT [facility]CRO[facility] C difficile Toxin A + B Negative Negative, Uninterpretable 3 5:34 PM CDT [facility]CRO[facility] Interpretation C difficile Negative for toxigenic C. difficile Negative for toxigenic C. difficile 3 5:34 PM CDT [facility] Stool STOOL SPECIMEN / Unknown Collection / Unknown 04/19/2013 10:59 AM CDT 04/19/2013 12:42 PM CDT Josiah Breen MD LAB - MICROBIOLOGY O MEMO Performing Organization Address City/[facility]/ZIP Co de Phone Number [facility]CRO[facility] [address] [place] [address] * CULTURE STOOL+SHIGA-LIKE TOXIN (04/19/2013 10:59 AM CDT) Culture No growth Salmonella, Shigella, Campylobacter , E. coli 0157:h7 or Yersinia 04/21/2013 8:30 AM CDT [facility] Culture Shiga Toxin Negative 04/21/2013 8:30 AM CDT [facility] Stool STOOL SPECIMEN / Unknown Collection / Unknown 04/19/2013 10:59 AM CDT 04/19/2013 12:42 PM CDT Josiah Breen MD LAB - MICROBIOLOGY O MEMO Performing Organization Address City/[facility]/ZIP Co de Phone Number [facility]CRO[facility]OLOG[facility] [address] [place] [address] * GIARDIA CRYPTOSPORIDIUM ANTIGEN PANEL (04/19/2013 10:59 AM CDT) Giardia Antigen DFA Negative Negative 04/22/2013 2:06 PM CDT [facility] Cryptosporidium Antigen DFA Negative Negative 04/22/2013 2:06 PM CDT [facility] Stool STOOL SPECIMEN / Unknown Collection / Unknown 04/19/2013 10:59 AM CDT 04/19/2013 12:42 PM CDT Narrative [facility] - 04/22/2013 2:06 PM [...] for Cyclospora which will be sent to [facility]. Specimen must be collected in 10% formalin. CAUTION: Cyclospora will not be detected by routine Ova and Parasite testing. A separate lab order, Parasitology Stain by Modified Acid Fast, must be placed specifically for Cyclospora which will be sent to [facility]. Specimen must be collected in 10% formalin. Josiah Breen MD LAB - MICROBIOLOGY O RDERABLES [facility] [address] [facility] [place] [address], [facility] * EGD (04/19/2013 10:40 AM CDT) Report Endoscopy POC ___ _ Patient Name: Romel Francoma Procedure Date: 04/19/2013 10:40 AM Gender: Female Date of : 1985 Age: 28 Admit Type: Outpatient Room: ROOM 1 Note Status: Finalized Attending MD: Josiah Breen MD ___ _ Procedure: Upper GI endoscopy Indications: Generalized abdominal distress, Weight loss Providers: Josiah Breen MD, Emmy Freeman RN, Antonietta Adan RN Referring MD: Molly Alvarado MD (Referring MD) Medicines: Propofol per Anesthesia Complications: No immediate complications. ___ _ Procedure: After obtaining informed consent, the endoscope was passed under direct vision. Throughout the procedure, the patient's blood pressure, pulse, and oxygen saturations were monitored continuously. The GIF H 180 was introduced through the mouth, and advanced to the third part of duodenum. Findings: Patchy mild erythema was found in the lower third of the esophagus. Biopsies were taken with a cold forceps for histology. Clear fluid was found in the gastric body. Fluid aspiration was performed. The examined duodenum was normal. Biopsies were taken with a cold forceps for histology. ___ _ Impression: - Normal esophagus. - Clear gastric fluid. - Normal examined duodenum. This was biopsied. Recommendation: - Await pathology results. - Perform a colonoscopy today. Josiah Breen MD 04/19/2013 11:04 AM This report has been signed electronically. Number of Addenda: 0 Note Initiated On: 04/19/2013 10:40 AM Estimated Blood Loss: Estimated blood loss: none. [facility] 04/19/2013 10:4 0 AM CDT Narrative [facility] - 04/19/2013 11:06 AM CDT Procedure Note Josiah Breen MD - 04/19/2013 11:06 AM CDT Josiah Breen MD GI PROCEDURE ORDERAB LES [facility] * ENDOSCOPY, COLON, SCREENING (04/19/2013 10:40 AM CDT) Report Endoscopy POC ___ _ Patient Name: Romel Ivy Procedure Date: 04/19/2013 10:40 AM Gender: Female Date of : 1985 Age: 28 Admit Type: Outpatient Room: ROOM 1 Note Status: Finalized Attending MD: Josiah Breen MD ___ _ Procedure: Colonoscopy Indications: Generalized abdominal distress, Change in bowel habits, Weight loss Providers: Josiah Breen MD, Emmy Freeman, RUBÉN, Antonietta Adan RN, [employer] CRNA (Anesthesia Staff) Referring MD: Molly Alvarado MD (Referring MD) Medicines: Propofol per Anesthesia Complications: No immediate complications. ___ _ Procedure: After I obtained informed consent, the scope was passed under direct vision. Throughout the procedure, the patient's blood pressure, pulse, and oxygen saturations were monitored continuously. The CF H 180 was introduced through the anus and advanced to the terminal ileum. The quality of the bowel preparation was good. Scope withdrawal time was 8 minutes. Findings: The terminal ileum appeared normal. Biopsies were taken with a cold forceps for histology. The entire examined colon appeared normal. Biopsies were taken with a cold forceps for histology. ___ _ Impression: - The examined portion of the ileum was normal. This was biopsied. - The entire examined colon is normal. This was biopsied. Recommendation: - Await pathology results. - Lactose-free diet. - Return to my office. Josiah rBeen MD 04/19/2013 11:07 AM This report has been signed electronically. Number of Addenda: 0 Note Initiated On: 04/19/2013 10:40 AM Estimated Blood Loss: Estimated blood loss: none. [facility] 04/19/2013 10:4 0 AM CDT Narrative [facility] - 04/19/2013 11:09 AM CDT Procedure Note Josiah Breen MD - 04/19/2013 11:09 AM CDT Josiah Breen MD GI PROCEDURE ORDERAB LES [facility] * FOLATE RBC (04/03/2013 9:58 AM CDT) Folate Hemolysate 372.0 Not Estab. ng/mL [facility] ACCOUNT BILL Hematocrit 41.9 34.0 - 46.6 % [facility] ACCOUNT BILL Folate RBC 888 499 - 1,504 ng/mL [facility] ACCOUNT BILL Blood specimen (specimen) BLOOD SPECIMEN WITH EDTA / Unknown 04/03/2013 9:58 AM CDT 04/03/2013 1:06 PM CDT Narrative Resulting Agency Comment [facility] [address] [phone] Josiah Breen MD LAB - CHEMISTRY TIFFANIE WILLS Performing Organization Address City/[facility]/ZIP Co de Phone Number [facility] ACCOUNT BILL * TISSUE TRANSGLUTAMINASE AB IGA (04/03/2013 9:54 AM CDT) TTG Antibody IgA <2 0 - 3 U/mL [facility] ACCOUNT BILL Comment: Negative 0 - 3 Weak Positive 4 - 10 Positive >10 . Tissue Transglutaminase (tTG) has been identified as the endomysial antigen. Studies have demonstr- ated that endomysial IgA antibodies have over 99% specificity for gluten sensitive enteropathy. Blood specimen (specimen) BLOOD SPECIMEN / Unknown 04/03/2013 9:54 AM CDT 04/03/2013 1:06 PM CDT Narrative Resulting Agency Comment [facility] [phone] Josiah Breen MD LAB - SEROLOGY ORDER SHARON Performing Organization Address [facility] Co de Phone Number [facility] ACCOUNT BILL * VITAMIN B12 (04/03/2013 9:54 AM CDT) Vitamin B12 304 211 - 946 pg/mL [facility] ACCOUNT BILL Blood specimen (specimen) BLOOD SPECIMEN / Unknown 04/03/2013 9:54 AM CDT 04/03/2013 1:06 PM CDT Narrative Resulting Agency Comment [facility] [phone] Josiah Breen MD LAB - CHEMISTRY TIFFANIE WILLS Performing Organization Address City/[facility] Co de Phone Number [facility] ACCOUNT BILL * IGA BLOOD (04/03/2013 9:54 AM CDT) IgA Quantitative 210 91 - 414 mg/dL [facility] ACCOUNT BILL Blood specimen (specimen) BLOOD SPECIMEN / Unknown 04/03/2013 9:54 AM CDT 04/03/2013 1:06 PM CDT Narrative Resulting Agency Comment [facility] [phone] Josiah Breen MD LAB - CHEMISTRY TIFFANIE WILLS [facility] Organization Address City/State/ZIP Co de Phone Number [facility] ACCOUNT BILL [...] IMPRESSION Negative gallbladder ultrasound. Molly Alvarado MD ORDERABLES * (ABNORMAL) CARDIAC MARKER PANEL (03/02/2013 8:08 PM CDT) Troponin I <0.015 <0.100 ng/mL 03/02/2013 9:11 PM CDT [facility] CK 93 35 - 232 U/L 03/02/2013 9:11 PM CDT [facility] CK-MB 0.8 0.0 - 5.0 ng/mL 03/02/2013 9:11 PM CDT [facility] CK Index % 0.9(L) 4.0 - 25.0 % 03/02/2013 9:11 PM CDT [facility] Blood specimen (specimen) BLOOD SPECIMEN / Unknown 03/02/2013 8:08 PM CDT 03/02/2013 8:55 PM CDT Yaniv Tamayo DO LAB - CHEMISTRY TIFFANIE WILLS [facility] [address] [place] [address] * AMYLASE BLOOD (03/02/2013 8:08 PM CDT) Only the most recent of2 resultswithin the time period is included. Amylase 44 15 - 115 U/L 03/02/2013 9:32 PM CDT [facility] Blood specimen (specimen) BLOOD SPECIMEN / Unknown 03/02/2013 8:08 PM CDT 03/02/2013 8:55 PM CDT Yaniv Tamayo DO LAB - CHEMISTRY TIFFANIE WILLS Performing Organization Address [facility] Co de Phone Number [facility] [place] [address] * MAMMO SCREENING DIGITAL IMAGE BILAT (08/23/2011 7:59 AM MANAGER PRINTING) Anatomical Region Laterality Modality Breast Bilateral Mammography 08/23/2011 12:0 7 PM MANAGER PRINTING Narrative 08/23/2011 12:27 PM MANAGER PRINTING DIGITAL BILATERAL SCREENING MAMMOGRAMS WITH CAD CORRELATION [...] suspicious findings are present clinically. An [employer] Procedure Note [...] suspicious findings are present clinically. An [employer] [facility] Daja Orr MD MAMMO ORDERABLES * US ABDOMEN COMPLETE (08/02/2011 2:45 PM MANAGER PRINTING) Anatomical Region Laterality Modality Abdomen Ultrasound 08/02/2011 2:53 PM MANAGER PRINTING Impressions 08/02/2011 2:58 PM MANAGER PRINTING Unremarkable abdominal ultrasound. Narrative 08/02/2011 2:58 PM MANAGER PRINTING ULTRASOUND ABDOMEN COMPLETE INDICATION: Abdominal pain. FINDINGS: [...] unremarkable. IMPRESSION Unremarkable abdominal ultrasound. Cherelle Mason APRN-[facility] US ORDERABLES * CULTURE URINE COMPREHENSIVE (PO REF LAB) (08/02/2011 1:56 PM MANAGER PRINTING) Urine Culture Comprehensive Final report [facility] ACCOUNT BILL Result 1 [facility] ACCOUNT BILL Comment:No growth in 36 - 48 hours. URINE / Unknown 08/02/2011 1 :56 PM MANAGER PRINTING 08/02/2011 3:56 PM MANAGER PRINTING Narrative Resulting Agency Comment [facility] [address] [phone] Cherelle Mason [facility] LAB - MICROBIOL OGY ORDERABLES [facility] ACCOUNT BILL * HELICOBACTER PYLORI ANTIBODIES (IGG,IGA,IGM) (PO REF LAB) (08/02/2011 1:56 PM MANAGER PRINTING) Helicobacter pylori Antibody IgG <0.9 0.0 - 0.8 U/mL [facility] ACCOUNT BILL Comment: Negative <0.9 Indeterminate 0.9 - 1.0 Positive >1.0 Helicobacter pylori Antibody IgA Index <0.89 0.00 - 0.88 index [facility] ACCOUNT BILL Comment: Negative <0.89 Equivocal 0.89 - 0.99 Positive >0.99 Helicobacter pylori Antibody IgM Index <0.80 0.00 - 0.79 index [facility] ACCOUNT BILL Comment: Negative <0.80 Equivocal 0.80 - 1.19 Positive >1.19 . Current studies suggest that H. pylori IgM testing should be performed concomitantly with H. pylori IgA and/or IgG tests to support a diagnosis of Helicobacter pylori infection. . For research use only, not for use in clinical diagnostic procedures. BLOOD SPECIMEN / Unknown 08/02/2011 1:56 PM MANAGER PRINTING 08/02/2011 3:56 PM MANAGER PRINTING Narrative Resulting Agency Comment [facility] [address] [phone] Cherelle Mason [employer] LAB - SEROLOGY ORDERABLES Performing Organization Address City/[facility] Co de Phone Number [facility] ACCOUNT BILL * URINALYSIS MICROSCOPIC ONLY (08/02/2011 1:56 PM MANAGER PRINTING) WBC UA 0-5 0 - 5 /hpf [...] (specimen) URINE / Unknown 08/02/2011 1:56 PM MANAGER PRINTING 08/02/2011 3:56 PM MANAGER PRINTING Narrative Resulting Agency Comment [facility] [address] [facility] [phone] Cherelle Mason [facility] LAB - URINALYSI S ORDERABLES [facility] ACCOUNT BILL * IMAGING/RADIOLOGY/XRAY RESULTS ORDER (04/08/2011 2:10 PM CDT) Anatomical Region Laterality Modality Other Narrative Transcriptions Document, Scanned - 04/08/2011 2:10 PM CDT Scanned Document IMAGING * (ABNORMAL) HGB HCT PANEL (2011 5:47 AM CDT) Hemoglobin 9.9(DL) 12.0 - 16.0 gm/dl [facility] Hematocrit 29.9(DL) 36 - 47 % [facility] BLOOD SPECIMEN / Unknown 2011 5:47 AM CDT 2011 5:58 AM CDT Narrative [facility] - 2011 6:15 AM CDT Obtain 12-24 hours after delivery. Jose Alberto Massey MD LAB - HEMATOLOGY ORD ERABLES [facility] [address] [address] * XR ABDOMEN 1 VW (04/03/2011 2:30 [...] CASE NUMBER [id number] Comment: ORDERING PHYSICIAN JOSE ALBERTO MASSEY SPECIMEN TYPE Placenta DATE OF PROCEDURE 04/03/2011 PHYSICIAN[S] SPECIMEN LABELED Placenta PRE-OP DIAGNOSIS Abruption GROSS DESCRIPTION GROSS DESCRIPTION The specimen is received in formalin labeled [...] are no lesions or masses grossly identified. [employer] sections are submitted as follows A1 - membranes and umbilical cord A2 - surface A3 - maternal surface. Dictated by DYT MICROSCOPIC DESCRIPTION The membrane sections show no significant inflammation of the chorioamnion. Chorion labia are present. The umbilical cord contains three vessels. No funisitis is seen. The villi appear mature. No villitis is detected. The surface is without significant inflammation. The maternal surface is without infarcts. No acute hypertensive vasculopathy is found. Calcifications are present. DIAGNOSIS Placenta, presumed vaginal delivery - Histologically mature placenta, 415 grams - Three vessel umbilical cord Dictated by Pedro Carbajal M.D. CPT [id number] Bookkeeper NAZARIO LOCKETT Electronically Signed By PEDRO CARBAJAL MISCELLANEOUS SAMPLES / Unknown 04/03/2011 1:49 AM CDT 2011 8:55 AM CDT Historical Provider LAB - PATHOLOGY/C YTOLOGY ORDERABLES * SONOGRAM - COMPLETE (12/22/2010 2:43 PM CDT) Anatomical Region Laterality Modality Other 12/22/2010 2:43 PM CDT Narrative 12/23/2010 5:23 AM CDT [facility] FAX: Pat. Name: ÁNGELA IBRAHIM Pat. No: [id number] Study Date: 12/22/2010 2:43pm , Age: 08 1985, 25 Pregnancies: 1, Para 0000 LMP: 08/06/2010 GA by LMP: 19.7 weeks GA by US: 17.7 weeks GA Selected: 17.6 weeks (From Known E) CHARLI: 05/28/2011 Referring MD: JOSE ALBERTO MASSEY MD Service Line Layer: Mi Vernon RDMS Hist/Ind: Anatomy Screen MEASUREMENTS & AGE GROWTH EVALUATION Measurement GA Range Source %for GA Ratios ---- ------- ------- BPD 3.9 cm 17.8 (16.6-19.0) Hadlock BPD 59% FL/BPD 0.65 HC 14.4 cm 17.7 (16.5-18.9) Hadlock HC 53% FL/AC 0.21 AC 12.2 cm 17.8 (16.1-19.5) Hadlock AC 57% HC/AC 1.19 (1.08 - 1.27) FL 2.5 cm 17.6 (16.2-19.0) Hadlock FL 51% CI 0.74 (0.70 - 0.86) HL 2.6 cm 18.2 (15.5-20.9) Oliver HL 61% GA for sonogram 17.7 wk (16.4-19.1) Weight Estimate: based on (BPD,HC,AC,FL) Avg Weight: 207 gm (177-237) Hadlock : 0lbs, 7oz Heart Rate: 147 bpm CLINICAL SUMMARY Study Number: MenaAshly #: [id number]:Female A keenan fetus is identified in cephalic presentation. The measurements today are not consistent with LMP but are consistent with appropriate growth compared to previous examination. The CHARLI selected is based on a prior ultrasound examination (confirmed by phone report). The amniotic fluid volume is within normal limits. The placenta is posterior, Grade 1. No major malformations are seen. The patient was advised that ultrasound does not allow detection of all structural or chromosomal abnormalities. IMPRESSION: size appropriate for CHARLI by early ultrasound. No apparent structural abnormalities. RECOMMEND: Repeat as clinically indicated. Mariella Oneil MD <Electronic Signature> 12/23/2010 05:23am Jose Alberto Massey MD [facility] ORDERABLES * GLUCOSE (07/23/2010 11:21 AM MANAGER PRINTING) Glucose 85 65 - 105 mg/dl [facility] BLOOD SPECIMEN / Unknown 07/23/2010 11:21 AM MANAGER PRINTING 07/23/2010 11:21 AM MANAGER PRINTING Willi Huff Jr., MD LAB - CHEMISTRY ORDERABLES Performing Organization Address [facility] de Phone Number [facility] [address] [place] [address] * IRON + TRANSFERRIN PANEL (07/23/2010 11:21 AM MANAGER PRINTING) Iron 139.4 50 - 170 ug/dl [facility] Transferrin 256.7 250 - 380 mg/dl [facility] TIBC Calculated 321 250 - 450 ug/dl [facility] Iron Saturation % 43 20 - 55 % [facility] BLOOD SPECIMEN / Unknown 07/23/2010 11:21 AM MANAGER PRINTING 07/23/2010 11:21 AM MANAGER PRINTING Willi Huff Jr., MD LAB - CHEMISTRY ORDERABLES Performing Organization Address [facility] de Phone Number [facility] [address] [place] [address] * HCG BLOOD QUALITATIVE (07/23/2010 11:21 AM MANAGER PRINTING) HCG Qual Serum Negative SEE BELOW [facility] Comment: Normal, Negative Pos, Sensitivity 25 MIU/ML BLOOD SPECIMEN / Unknown 07/23/2010 11:21 AM MANAGER PRINTING 07/23/2010 11:21 AM MANAGER PRINTING Willi Huff Jr., MD LAB - CHEMISTRY ORDERABLES [facility] [address] [place] [address] * XR CONSULTATION (12/23/2009 8:00 AM CDT) [...] of acute or chronic granulomatous changes. Reading Radiologist- JUAN BRENNAN Releasing Radiologist- JUAN BRENNAN Released Date Time- 12/23/09 1612 Bookkeeper- DTC ADM- COVERT,ROBIN Rahman ATT- COVERT,ROBIN Rahman REF- CON- PCP- SCP- Procedure Note Juan Brennan MD - 12/23/2009 WORK HEALTH EXAMINATION- Frontal chest radiograph No available comparison HISTORY- Positive PPD tuberculin skin examination FINDINGS- Visualized lungs are clear without pneumothorax, pleural effusion or consolidation. Cardiomediastinal silhouette is within normal limits for age and technique. Visualized osseous structures demonstrate no significant findings for technique. IMPRESSION- No radiographic evidence of acute or chronic granulomatous changes. Reading Radiologist- JUAN T BRENNAN Releasing Awais BRENNAN Released Date Time- 12/23/09 1612 Bookkeeper- DTC ADM- COVERT,ROBIN Rahman ATT- COVERTROBIN REF- CON- PCP- SCP- Robin Su MD DIAGNOSTIC IMAGING O RDERABLES * CULTURE FUNGUS OTHER+FUNGUS SMEAR (04/07/2009 2:00 PM CDT) Smear SEE NOTE [facility]) Comment: CULTURE, FUNGUS W/SMEAR NOT HAIR, SKIN, BLOOD MICRO NUMBER: [id number] TEST STATUS: FINAL SPECIMEN SOURCE: VAGINAL/ANORECTAL SPECIMEN COMMENTS: ADEQUATE SMEAR: NO FUNGAL ELEMENTS SEEN. RESULT: NO FUNGAL GROWTH AT 4 WEEKS REPORT COMMENT: PREFERRED LAB:->[facility] Test Performed at: [facility] [address] [address] VONNIE RIGGS MD 04/07/2009 2:00 PM CDT 04/07/2009 9:57 PM CDT Renuka Bear APRN-[facility] LAB - MICRO BIOLOGY ORDERABLES Performing Organization Address City/[facility]/ZIP Co de Phone Number [facility] ([facility]) * PH FLUID - POCT (AMB) [facility] (08/14/1998 12:00 AM MANAGER PRINTING) pH Vaginal 4.0 [facility] Vaginal swab (specimen) 08/14/1998 Renuka Bear APRN-[facility] - POINT OF CARE ORDERABLES [facility] * WET PREP - POINT OF CARE (AMB) [facility] (08/14/1998 12:00 AM MANAGER PRINTING) pH Wet Prep 4.0 [facility] Yeast Wet Prep neg [facility] Trichomonas Wet Prep neg [facility] Bacteria Wet Prep neg [facility] Whiff Test neg [facility] Vaginal swab (specimen) 08/14/1998 Renuka Bear PROJECT DESIGNER-[facility] - POINT OF CARE ORDERABLES [facility] Care Teams Medical Transcription Editor Relationship Specialty Start Date End Date Jose Alberto Braxton MD [address] [facility] [place] [address] PCP - General Family Medicine 07/07/21
--- OUTSIDE RECORDS SUMMARY | 2024-10-06 19:33 | XMS_ITS | Referral Summary ---
Author Organization [facility] Address [address] [place] [address] Care Team Providers Care Mussel Farmer Name Role Phone Azar Braxton MD Primary Care Provider [phone] Source Comments [facility],non-owned Affiliates and Associated Physician Practices is amultiple site organization consisting of ambulatory clinics and hospital sitesin [place], [place], [place] and [place]. This disclosure is being madepursuant to the Care Everywhere program and may not contain all information available regarding this patient. Last updated 18.[facility] Allergies Active Allergy Reactions Criticality Noted Date [...] 08/26/201507/07 Immunizations Name Administration Dates Next Due [employer] primary monoval ent 12+ yr 0.3mL Purple cap 11/12/2020 INFLUENZA VACCINE 05/21/2021,05/22/2016,05/14/20 11 INFLUENZA VACCINE, CELL CULT URE, QUADR. (FLUCELVAX [...] Gender Identity Female 08/19/2022 7:56 AM AIR REDUCTION EQUIPMENT OPERATOR Sexual Orientation Not on file Last Filed Vital Signs Vital Sign Reading Time Taken Comments Blood Pressure 110/78 03/17/2023 1:17 PM CDT Pulse 88 03/17/2023 1:17 PM CDT Temperature 36.9 C (98.5 F) 03/17/2023 1:17 PM CDT Respiratory Rate 20 08/19/2022 2:34 PM AIR REDUCTION EQUIPMENT OPERATOR Oxygen Saturation 99% 03/17/2023 1:17 PM [...] Comments LIPID PROFILE Routine 07/07/2021 11:19 AM AIR REDUCTION EQUIPMENT OPERATOR Routine physical examination HIV-1 HIV-2 ANTIBODY + HIV P24 AG PANEL Routine 07/07/2021 11:19 AM AIR REDUCTION EQUIPMENT OPERATOR Routine physical examination HEPATITIS C AB W RFLX VERIFICATION Routine 06/01/2015 7:43 AM CDT MAMMO BILAT SCREENING Routine 08/23/2011 7:59 AM AIR REDUCTION EQUIPMENT OPERATOR Family history of breast cancer in first degree relative from Last 3 Months or Most Recently Relevant to Health Maintenance Results * HIV-1 HIV-2 ANTIBODY + HIV P24 AG PANEL (07/07/2021 11:19 AM AIR REDUCTION EQUIPMENT OPERATOR) [facility] HIV Screen 4th Generation w Reflex Non Reactive Non Reactive [facility] INSURANCE BILL Blood BLOOD SPECIMEN / Unknown 07/07/2021 11:19 AM AIR REDUCTION EQUIPMENT OPERATOR 07/07/2021 Narrative Resulting Agency Comment [facility] [address] [facility] [id number] Azar Braxton MD LAB - CHEMISTRY [facility]FF[facility]IE WILLS [facility] INSURANCE BILL [address] [place] [address] * (ABNORMAL) LIPID PROFILE (07/07/2021 11:19 AM AIR REDUCTION EQUIPMENT OPERATOR) Cholesterol 232(H) <200 mg/dL [facility] INSURANCE BILL Triglycerides 134 <150 mg/dL [facility] INSURANCE BILL HDL Cholesterol 58 >40 mg/dL [facility] INSURANCE BILL VLDL Calculated 27 <=30 mg/dL [facility] INSURANCE BILL LDL Calculated 147(H) <130 mg/dL [facility] INSURANCE BILL Blood BLOOD SPECIMEN / Unknown 07/07/2021 11:19 AM AIR REDUCTION EQUIPMENT OPERATOR 07/07/2021 Narrative Resulting Agency Comment Lab Testing performed at: [place] [address] [facility] [id number] Azar Braxton MD LAB - CHEMISTRY [facility]IE WILLS [facility] [address] [place] [address] * HEPATITIS C AB W RFLX VERIFICATION (06/01/2015 7:43 AM CDT) Hepatitis C Antibody <0.1 0.0 - 0.9 s/co ratio [facility] ([place] 06/01/2015 7:43 AM CDT 06/01/2015 9:18 AM CDT Narrative [facility] [place] - 06/02/2015 6:15 AM CDT Performed at: [address] [place] [id number] Judge'S Clerk: Erasmo Morris PhD, Phone: [phone] Annette Singh MD LAB - CHEMISTRY [facility]IE [facility]S [facility] [place] * MAMMO SCREENING DIGITAL IMAGE BILAT (08/23/2011 7:59 AM AIR REDUCTION EQUIPMENT OPERATOR) Anatomical Region Laterality Modality Breast Bilateral Mammography 08/23/2011 12:0 7 PM AIR REDUCTION EQUIPMENT OPERATOR Narrative 08/23/2011 12:27 PM AIR REDUCTION EQUIPMENT OPERATOR DIGITAL BILATERAL SCREENING MAMMOGRAMS WITH CAD [...] if suspicious findings are present clinically. [facility] [employer] [facility] Procedure Note [...] if suspicious findings are present clinically. [facility] [employer] [facility] Daja Orr MD MAMMO ORDERABLES from Last 3 Months or Most Recently Relevant to Health Maintenance Advance Directives * FULL RESUSCITATION (Latest Code Status on File) Date Activated Date Inactivated Comments 04/03/2011 3:58 PM 04/08/2011 4:57 AM Care Teams Mussel Farmer Relationship Specialty Start Date End Date Azar Braxton MD [address] [address] PCP - General Family Medicine 07/07/21
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
--- OUTSIDE RECORDS SUMMARY | 2024-10-06 19:34 | XMS_ITS | Clinical Summary ---
Author Organization [facility] [employer] Address [address] [facility] [place] [address] Care Team Providers Care Lamination Inspector Name Role Phone Azar Braxton MD Primary Care Provider [phone] Source Comments [facility] [employer],non-owned Affiliates and Associated Physician Practices is amultiple site organization consisting of ambulatory clinics and hospital sitesin [place], [place], [place] and [place]. This disclosure is being madepursuant to the Care Everywhere program and may not contain all information available regarding this patient. Last updated 18.[facility] [employer] Allergies Active Allergy Reactions Criticality Noted Date [...] 08/26/201507/07 Immunizations Name Administration Dates Next Due [employer] primary monoval ent 12+ yr 0.3mL Purple [...] file Gender Identity Female 08/19/2022 7:56 AM BOWLING FLOOR DESK CLERK Sexual Orientation Not on file Last Filed Vital Signs Vital Sign Reading Time Taken Comments Blood Pressure 110/78 03/17/2023 1:17 PM CDT Pulse 88 03/17/2023 1:17 PM CDT Temperature 36.9 C (98.5 F) 03/17/2023 1:17 PM CDT Respiratory Rate 20 08/19/2022 2:34 PM BOWLING FLOOR DESK CLERK Oxygen Saturation 99% 03/17/2023 1:17 PM [...] 2003 MAMMOGRAM 08/23/2013 08/23/2011 PAP SMEAR 05/14/2023 05/14/2020, 08/2019 (Done Outside Per Report), 09/14/2011, Additional history exists COVID-19 VACCINE (2023- season) 2024 06/21/2023, 12/25/2020, 11/12/2020 INFLUENZA VACCINE [...] patient's age to complete this topic MENINGOCOCCAL (Group B) VACCINE Aged Out No longer eligible based on patient's age to complete this topic MENINGOCOCCAL VACCINE Aged Out No cosmo jessica eligible based on patient's age to complete this topic PNEUMOCOCCAL VACCINE Aged Out No long er eligible based on patient's age to complete this topic Procedures Procedure Name Priority Date/Time Associated Diagnosis Comments LIPID PROFILE Routine 07/07/2021 11:19 AM BOWLING FLOOR DESK CLERK Routine physical examination HIV-1 HIV-2 ANTIBODY + HIV P24 AG PANEL Routine 07/07/2021 11:19 AM BOWLING FLOOR DESK CLERK Routine physical examination HEPATITIS C AB W RFLX VERIFICATION Routine 06/01/2015 7:43 AM CDT MAMMO BILAT SCREENING Routine 08/23/2011 7:59 AM BOWLING FLOOR DESK CLERK Family history of breast cancer in first degree relative from Last 3 Months or Most Recently Relevant to Health Maintenance Results * HIV-1 HIV-2 ANTIBODY + HIV P24 AG PANEL (07/07/2021 11:19 AM BOWLING FLOOR DESK CLERK) HIV Screen 4th Generation w Reflex Non Reactive Non Reactive [facility] INSURANCE BILL Blood BLOOD SPECIMEN / Unknown 07/07/2021 11:19 AM BOWLING FLOOR DESK CLERK 07/07/2021 Narrative Resulting Agency Comment [facility] [address] [facility] [id number] Azar Braxton MD LAB - CHEMISTRY [facility]FF[facility]IE WILLS [facility] INSURANCE BILL [address] [place] [address] * (ABNORMAL) LIPID PROFILE (07/07/2021 11:19 AM BOWLING FLOOR DESK CLERK) Cholesterol 232(H) <200 mg/dL [facility] INSURANCE BILL Triglycerides 134 <150 mg/dL [facility] INSURANCE BILL HDL Cholesterol 58 >40 mg/dL [facility] INSURANCE BILL VLDL Calculated 27 <=30 mg/dL [facility] INSURANCE BILL LDL Calculated 147(H) <130 mg/dL [facility] INSURANCE BILL Blood BLOOD SPECIMEN / Unknown 07/07/2021 11:19 AM BOWLING FLOOR DESK CLERK 07/07/2021 Narrative Resulting Agency Comment Lab Testing performed at: [address] [id number] Azar Braxton MD LAB - CHEMISTRY [facility]FF[facility]IE WILLS [facility] INSURANCE BILL [address] [place] [address] * HEPATITIS C AB W RFLX VERIFICATION (06/01/2015 7:43 AM CDT) Hepatitis C Antibody <0.1 0.0 - 0.9 s/co ratio [facility] [place] 06/01/2015 7:43 AM CDT 06/01/2015 9:18 AM CDT Narrative [facility] - 06/02/2015 6:15 AM CDT Performed at: [address] [place] [id number] Research Scholar: Erasmo Morris PhD, Phone: [phone] Annette Singh MD LAB - CHEMISTRY [facility]FF[facility]IE WILLS Performing Organization Address City/[facility] Co de Phone Number [facility] [place] * MAMMO SCREENING DIGITAL IMAGE BILAT (08/23/2011 7:59 AM BOWLING FLOOR DESK CLERK) Anatomical Region Laterality Modality Breast Bilateral Mammography 08/23/2011 12:0 7 PM BOWLING FLOOR DESK CLERK Narrative 08/23/2011 12:27 PM BOWLING FLOOR DESK CLERK DIGITAL BILATERAL SCREENING MAMMOGRAMS WITH CAD [...] if suspicious findings are present clinically. [facility] [employer] [facility] Procedure Note [...] if suspicious findings are present clinically. [facility] [employer] Daja Orr MD MAMMO ORDERABLES from Last 3 Months or Most Recently Relevant to Health Maintenance Advance Directives * FULL RESUSCITATION (Latest Code Status on File) Date Activated Date Inactivated Comments 04/03/2011 3:58 PM 04/08/2011 4:57 AM Care Teams Lamination Inspector Relationship Specialty Start Date End Date Azar Braxton MD [address] [address] PCP - General Family Medicine 07/07/21
--- OUTSIDE RECORDS SUMMARY | 2024-10-06 19:34 | XMS_ITS | Referral Summary ---
Author Organization [facility] Address [address] [place] [id number] Care Team Providers Care Otr Ref[employer]ated Cdl Truck Driver Name Role Phone Omega Khanna MD, Maurice Parks Primary Care Provider Encounters Date Type Department Care Team Description 10/03/2024 Nurse Triage [facility] [place] [address] [address] [place] [address] Maurice Duff Jr., MD 09/09/2024 Telephone [facility] [place] [address] [address] [place] [address] Maurice Duff Jr., MD 09/05/2024 Nurse Triage [facility] [address] [address] [place] [address] Maurice Duff Jr., MD 08/29/2024 10:45 AM CAD SPECIALIST Office Visit [facility] [address] [address] [place] [address] Maurice Duff Jr., MD Acute non-recurrent maxillary sinusitis (Primary Dx); Mixed hyperlipidemia; Generalized anxiety disorder; Bipolar disorder, in partial remission, most recent episode mixed (CMS/HCC) (HCC); PSVT (paroxysmal supraventricular tachycardia) (HCC) 07/30/2024 Telephone [facility] [address] [address] [place] [address] Maurice Duff Jr., MD Medical Question/Miscellaneous 07/24/2024 Telephone [facility] [address] [facility] [address] [place] [phone] Candace Dunlap MD Scheduling Appointments from Last 3 Months Allergies Active Allergy [...] in partial remission, most recent episode mixed ([facility]) 03/11/2024 Assessment & Plan (08/29/2024 5:54 AM CAD SPECIALIST): Stable with Abilify, clonazepam, Cymbalta, Lamictal Assessment & Plan (03/11/2024 9:57 AM CDT): Stable with Klonopin, Abilify, trazodone. Follow with psychiatrist PSVT (paroxysmal supraventricular tachycardia) 0 03/11/2024 Assessment & Plan (08/29/2024 5:55 AM CAD SPECIALIST): Stable with verapamil Assessment & Plan (03/11/2024 9:57 AM CDT): Stable with verapamil Mixed hyperlipidemia 03/11/2024 Assessment & Plan (08/29/2024 5:53 AM CAD SPECIALIST): Continue low-fat diet and exercise Assessment & Plan (03/11/2024 9:57 AM CDT): Continue low-fat diet and exercise Vaginal vestibulitis 03/11/2024 Assessment & Plan (03/11/2024 9:57 AM CDT): Continue to follow with gynecology. Continue Cymbalta Generalized anxiety disorder 07/07/2021 Assessment & Plan (08/29/2024 5:54 AM CAD SPECIALIST): Stable with Abilify, clonazepam, Cymbalta Insomnia 07/07/2021 Hip pain, chronic 03/31/2017 Gastroesophageal reflux disease 06/22/2016 Assessment & Plan (03/11/2024 9:56 AM CDT): Patient is having exacerbation. Change to Protonix 40 mg daily and increase Pepcid to 40 mg at bedtime. 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 Never 04/05/2024 Do you belong to any clubs o r organizations such as methodist groups, unions, fraternal or athletic groups, or [...] any time in the past 12 m [facility], were you homeless or living in a fpc (including now)? No 04/05/2024 Personal Safety Answer [...] Comments Blood Pressure 100/72 08/29/2024 10:37 AM CAD SPECIALIST Pulse 70 08/29/2024 10:37 AM CAD SPECIALIST Temperature 36.1 C (97 F) 08/29/2024 10:37 AM CAD SPECIALIST Respiratory Rate 18 05/27/2024 7:00 AM CDT Oxygen Saturation 99% 08/29/2024 10:37 AM CAD SPECIALIST Inhaled Oxygen Concentration - - Weight 57.2 kg (126 lb 3.2 oz) 08/29/2024 10:37 AM CAD SPECIALIST Height 154.9 cm (5' 1 ) 08/29/2024 10:37 AM CAD SPECIALIST Body Mass Index 23.85 08/29/2024 10:37 AM CAD SPECIALIST Plan of Treatment Not on file Procedures [...] 1 - Negative us Aura Horne MD IM MAMMO PROCEDURES Final Result * (ABNORMAL) High Risk HPV DNA Detection with Genotyping (Molecular component) (11/08/2023 2:02 PM CDT) HPV HR 16 Detected(A) Not Detected HPV HR 18 Not Detected Not Detected [facility] HPV HR Non 16/18 Not Detected Not Detected [facility] Comment: Interpretive Data Nucleic acid [...] this test have been verified by the [facility]. Correlate with separately reported cytology results, as applicable. Interpretive data last revised 23 Endocervical 11/08/2023 2:02 PM CDT 11/08/2023 7:53 PM CDT Narrative [facility] - 11/10/2023 9:27 PM CDT Clinical history and diagnosis->screening Testing type->Screening Last menstrual period (date if known)->unknown Aura Horne MD LAB BODY FLUIDS AND STOOLS ORDERABLES Final Result [facility] [address] Department [place] [address] from Last 3 Months or Most Recently Relevant to Health Maintenance Insurance [employer] Address: [address] [place] [id number] Advance Directives For more information, please contact: [phone] * Full Code (Latest Code Status on File) Date Activated Date Inactivated Comments 03/30/2024 10:54 PM 04/09/2024 7:05 PM Care Teams [employer] C[employer] Truck Driver Relationship Specialty Start Date End Date Maurice Duff Jr., MD [address] [address] PCP - General Family Medicine 03/11/24
--- NOTE | 2024-10-06 19:59 | ECG_ITS ---
Test Date: 2024-10-06 20:39:29 Measurements Intervals [place] Rate: 63 P: 55 WI: 108 QRS: 47 QRSD: 87 T: 58 QT: 398 QTc: 408 Interpretive Statements SINUS RHYTHM WITH SHORT WI INTERVAL POSSIBLE RIGHT VENTRICULAR CONDUCTION DELAY BASELINE ARTIFACT- I, II, AVR, AVL, V1 BORDERLINE ECG COMPARED WITH PRIOR ECG 07-26-24 19:53 NO SIGNIFICANT CHANGE Electronically Signed On 10-07-2024 06:38:05 [employer] by Dc Castillo D.O.
[2024-10-06 20:27] LABS: Basophils Absolute Auto 0.1 K/mm3 (0.0-0.1); Basophils Percent Auto 0.5 % (0.2-1.2); Eosinophils Absolute Auto 0.1 K/mm3 (0-0.3); Eosinophils Percent Auto 1.1 % (0-4.4); Hematocrit 37.4 % (37.0-47.0); Hemoglobin 13.2 g/dL (12.0-15.0); Immature Granulocyte Absolute 0.05 K/mm3 (0.00-0.031); Immature Granulocyte Percent A 0.4 % (0-0.5); Lymphocytes Percent Auto 19.1 % (18.3-44.2); Mean Corpuscular HGB Conc 35.3 g/dl (32-36); Mean Corpuscular Hemoglobin 29.8 pg (26-34); Mean Corpuscular Volume 84.4 fl (80-100); Mean Platelet Volume 10.8 fl (7.4-10.4); Monocytes Percent Auto 7.9 % (2.6-8.5); Neutrophils Absolute Auto 9.3 K/mm3 (1.3-6.7); Platelet Count Result 361 k/mm3 (150-375); Red Blood Count 4.43 M/mm3 (4.2-5.4); Red Cell Distribution Width 14.2 % (11.5-14.5); White Blood Count 13.1 K/mm3 (4.5-10.0)
[2024-10-06 20:39] LABS: Alanine Aminotransferase 21 U/L (6-35); Albumin Level 4.4 g/dL (3.5-5.1); Alkaline Phosphatase 77 U/L (38-126); Anion Gap 13 mmol/L (4-12); Aspartate Amino Transferase 25 U/L (14-36); Blood Urea Nitrogen 11 mg/dL (7-17); Calcium 9.6 mg/dL (8.4-10.2); Carbon Dioxide 24 mmol/L (22-30); Chloride 97 mmol/L (98-107); Estimated CRCL calculation 64 ml/min; Estimated Glomerular Filt Rate > 60; Glucose 101 mg/dL (65-110); Lipase 41 U/L (23-300); Potassium 2.9 mmol/L (3.4-5.0); Sodium 134 mmol/L (137-145)
--- OUTSIDE RECORDS SUMMARY | 2024-10-06 20:45 | XMS_ITS | Referral Summary ---
Author Organization [facility] Address [address] [place] [address] Care Team Providers Care Range Master Name Role Phone Pcp, Verify Primary Care [...] of Treatment Not on file Care Teams Range Master Relationship Specialty Start Date End Date Pcp, Verify PCP - General 08/19/21
--- OUTSIDE RECORDS SUMMARY | 2024-10-06 20:45 | XMS_ITS | Clinical Summary ---
Author Organization [facility] Address [address] [place] [address] Care Team Providers Care Rooming House Inspector Name Role Phone Geo Duff MD Primary Care Provider [phone] Allergies Active Allergy Reactions Criticality Noted Date [...] Department Care Team Description 10/03/2024 12:26 PM INVOICE CHECKER - 10/03/2024 4:04 PM [facility] Emergency Services [address] [address] Mansi Roa MD Nausea and vomiting, unspecified [...] STL ABSTRACTION Provider, Abstract 09/03/2024 1:06 PM INVOICE CHECKER - 09/03/2024 9:10 PM [facility] Emergency Services [address] [address] [place] [address] Candelaria Doyle MD Judge, Steven J, MD Abdominal pain, unspecified abdominal location (Primary Dx); Nausea and vomiting, unspecified vomiting type; Hematuria, unspecified type; Dehydration; Ketonuria; Colitis Discharge Disposition: Home or Self Care 09/03/2024 External Device Data STL ABSTRACTION Provider, Abstract 09/03/2024 External Device Data STL ABSTRACTION Provider, Abstract 08/31/2024 8:30 AM INVOICE CHECKER - 08/31/2024 12:[address] [facility] Emergency [facility] Emergency Services [address] [address] [place] [address] Acute gastroenteritis (Primary Dx); RSV infection Discharge Disposition: Home or Self Care 08/31/2024 Travel 08/28/2024 External Device Data STL ABSTRACTION Provider, Abstract 08/08/2024 1:[address] [facility] Office Visit [facility] GASTROENTEROLOGY - [address] [facility] [phone] [facility] [address] [place] [address] Sachin Pang MD Bilious vomiting with nausea (Primary Dx); Long syndrome; Early satiety 08/06/2024 External Device Data STL ABSTRACTION Provider, Abstract 07/16/2024 External Device Data STL ABSTRACTION Provider, Abstract 07/09/2024 External Device Data STL ABSTRACTION Provider, Abstract 07/08/2024 3:48 AM INVOICE CHECKER - 07/08/2024 4:[address] [facility] Emergency [facility] Medical 2 [address] [address] [place] [address] Fermin Steve MD Bogachenchu, Sreenivasulu, MD Odibi, Chizor, MD Intractable nausea and vomiting Discharge Disposition: Home or Self Care 07/07/2024 Travel 07/06/2024 11:00 PM INVOICE CHECKER - 07/07/2024 2:[address] [facility] Emergency [facility] Emergency Services [address] [place] [address] Fermin Steve MD Chest pain with low [...] Comments Blood Pressure 135/80 10/03/2024 3:30 PM INVOICE CHECKER Pulse 62 10/03/2024 3:30 PM INVOICE CHECKER Temperature 37.4 C (99.3 F) 10/03/2024 11:04 AM INVOICE CHECKER Respiratory Rate 12 10/03/2024 11:04 AM INVOICE CHECKER Oxygen Saturation 100% 10/03/2024 3:30 PM INVOICE CHECKER Inhaled Oxygen Concentration - - Weight 52.6 kg (116 lb) 10/03/2024 11:04 AM INVOICE CHECKER Height 154.9 cm (5' 1 ) 10/03/2024 11:04 AM INVOICE CHECKER Body Mass Index 21.92 10/03/2024 11:04 AM INVOICE CHECKER Plan of Treatment Upcoming Encounters Date Type Department Care Team (Late st Contact Info) Description 10/22/2024 8:00 AM CDT Appointment [facility] Nuclear Medicine [address] [address] [place] [id number] [address] Health Maintenance Due Date Last [...] TUBE (URINE MCADAMS) Stat 10/03/2024 3:15 PM INVOICE CHECKER URINALYSIS W/REFLEX MICROSCOPIC Stat 10/03/2024 3:15 PM INVOICE CHECKER DRUG SCREEN, URINE Stat 10/03/2024 3: 15 PM INVOICE CHECKER EXTRA TUBE (BLUE) Stat 10/03/2024 2:2 2 PM INVOICE CHECKER EXTRA TUBE (GREEN) Stat 10/03/2024 2: 22 PM INVOICE CHECKER EXTRA TUBE Stat 10/03/2024 2:22 PM INVOICE CHECKER HCG QUALITATIVE, SERUM Stat 10/03/2024 2:22 PM INVOICE CHECKER LIPASE Stat 10/03/2024 2:21 PM INVOICE CHECKER COMPREHENSIVE METABOLIC PANEL Stat 10/03/2024 2:21 PM INVOICE CHECKER CBC WITH DIFFERENTIAL Stat 10/03/2024 2:21 PM INVOICE CHECKER XR ABDOMEN 1 VW Stat 10/03/2024 1:58 PM INVOICE CHECKER EXTRA TUBE (URINE MCADAMS) Stat 09/03/2024 6:04 PM INVOICE CHECKER URINALYSIS W/REFLEX MICROSCOPIC Stat 09/03/2024 6:[address] ABDOMEN PELVIS W CONTRAST Stat 09/03/2024 5:20 PM INVOICE CHECKER EKG 12-LEAD Stat 09/03/2024 2:05 PM INVOICE CHECKER XR CHEST PA OR AP 1 VW Stat 09/03/2024 1:52 PM INVOICE CHECKER EXTRA TUBE (URINE MCADAMS) Stat 09/03/2024 1:38 PM INVOICE CHECKER URINALYSIS W/REFLEX MICROSCOPIC Stat 09/03/2024 1:38 PM INVOICE CHECKER LIPASE Stat 09/03/2024 11:50 AM INVOICE CHECKER MAGNESIUM LEVEL Stat 09/03/2024 11:50 AM INVOICE CHECKER TROPONIN BASELINE, 5TH GEN Stat 09/03/2024 11:50 AM INVOICE CHECKER HCG QUALITATIVE, SERUM Stat 09/03/2024 11:50 AM INVOICE CHECKER COMPREHENSIVE METABOLIC PANEL Stat 09/03/2024 11:50 AM INVOICE CHECKER CBC WITH DIFFERENTIAL Stat 09/03/2024 11:50 AM INVOICE CHECKER EXTRA TUBE (URINE MCADAMS) Stat 08/31/2024 9:33 AM INVOICE CHECKER INFLUENZA A/B, RSV AND COVID-19 PCR PANEL Stat 08/31/2024 9:33 AM INVOICE CHECKER URINALYSIS W/REFLEX MICROSCOPIC Stat 08/31/2024 9:33 AM INVOICE CHECKER INFLUENZA A/B, RSV AND COVID-19 PCR PANEL Stat 08/31/2024 9:33 AM INVOICE CHECKER LIPASE Stat 08/31/2024 9:33 AM INVOICE CHECKER COMPREHENSIVE METABOLIC PANEL Stat 08/31/2024 9:33 AM INVOICE CHECKER CBC WITH DIFFERENTIAL Stat 08/31/2024 9:33 AM INVOICE CHECKER US ABDOMEN LIMITED Stat 07/08/2024 7: 30 AM INVOICE CHECKER EKG 12-LEAD Stat 07/08/2024 6:[address] ABDOMEN PELVIS W CONTRAST Stat 07/08/2024 5:07 AM INVOICE CHECKER HCG QUALITATIVE, SERUM Stat 07/08/2024 4:17 AM INVOICE CHECKER PHOSPHORUS Routine 07/08/2024 4:08 AM INVOICE CHECKER C-REACTIVE PROTEIN Stat 07/08/2024 4: 08 AM INVOICE CHECKER PROCALCITONIN Stat 07/08/2024 4:08 AM INVOICE CHECKER MAGNESIUM LEVEL Stat 07/08/2024 4:08 AM INVOICE CHECKER LIPASE Stat 07/08/2024 4:08 AM INVOICE CHECKER COMPREHENSIVE METABOLIC PANEL Stat 07/08/2024 4:08 AM INVOICE CHECKER CBC WITH DIFFERENTIAL Stat 07/08/2024 4:08 AM INVOICE CHECKER HEMOGLOBIN A1C Stat 07/06/2024 11:55 PM INVOICE CHECKER LIPASE Stat 07/06/2024 11:55 PM INVOICE CHECKER EXTRA TUBE (BLUE) Stat 07/06/2024 11: 55 PM INVOICE CHECKER EXTRA TUBE Stat 07/06/2024 11:55 PM INVOICE CHECKER COMPREHENSIVE METABOLIC PANEL Stat 07/06/2024 11:55 PM INVOICE CHECKER CBC WITH DIFFERENTIAL Stat 07/06/2024 11:55 PM INVOICE CHECKER TROPONIN BASELINE, 5TH GEN Stat 07/06/2024 11:55 PM INVOICE CHECKER EKG 12-LEAD Stat 07/06/2024 10:58 PM INVOICE CHECKER CERV/VAG CYTO SCREEN PAP W/HPV Routine 04/07/2022 12:00 AM CDT Well woman exam with routine gynecological exam from Last 3 Months or Most Recently Relevant to Health Maintenance Results * EXTRA TUBE (URINE MCADAMS) (10/03/2024 3:15 PM INVOICE CHECKER) Only the most recent of4 resultswithin the time period is included. Urine URINE SPECIMEN OBTAINED BY CLEAN CATCH PROCEDURE / Unknown Collection / Unknown 10/03/2024 3:15 PM INVOICE CHECKER 10/03/2024 3:23 PM INVOICE CHECKER [facility] Kush Roa MD URINE ORDERABLES Amanda pierce Result [facility] [place] CLIA # [id number] [facility] [address] [place] [address] * (ABNORMAL) DRUG SCREEN, URINE (10/03/2024 3:15 PM INVOICE CHECKER) [facility] AMPHETAMINE QUAL, URINE Negative Negative 10/03/2024 3:41 PM [facility] BARBITURATE QUAL, URINE Negative Negative 10/03/2024 3:41 PM [facility] [place] BENZODIAZEPINE QUAL, URINE Presumptive Positive(A) Negative 10/03/2024 3:41 PM [facility] [place] COCAINE QUAL URINE Negative Negative 10/03/2024 3:41 PM [facility] [place] OPIATE QUAL, URINE Presumptive Positive(A) Negative 10/03/2024 3:41 PM [facility] [place] CANNABINOIDS QUAL, URINE Presumptive Positive(A) Negative 10/03/2024 3:41 PM [facility] [place] PCP QUAL, URINE Negative Negative 3:41 PM [facility] OXYCODONE QUAL, URINE Negative Negative 10/03/2024 3:41 PM [facility] [place] METHADONE QUAL, URINE Negative Negative 10/03/2024 3:41 PM [facility] [place] FENTANYL QUAL, URINE Negative Negative 10/03/2024 3:41 PM [facility] CREATININE, URINE 134.8 29.0 - 226.0 mg/dL 10/03/2024 3:41 PM [facility] Comment:Reference Range vari es with fluid intake and diet. Urine URINE SPECIMEN OBTAINED BY CLEAN CATCH PROCEDURE / Unknown Collection / Unknown 10/03/2024 3:15 PM INVOICE CHECKER 10/03/2024 3:26 PM INVOICE CHECKER [facility] [place] - 10/03/2024 3:41 PM INVOICE CHECKER This test is a qualitative screen. The [...] ng/mL Methadone 300 ng/mL Fentanyl 5 ng/mL [facility] Kush Roa MD URINE ORDERABLES Amanda l Result [facility] [place] CLIA # [id number] [facility] [address] [place] [id number] * (ABNORMAL) URINALYSIS WITH REFLEX MICROSCOPIC (10/03/2024 3:15 PM INVOICE CHECKER) Only the most recent of4 resultswithin the time period is included. COLOR UA Pale Yellow Pale to Dark Yellow 10/03/2024 3:30 PM [facility] CLARITY UA Clear Clear 10/03/2024 3:30 PM [facility] SPECIFIC GRAVITY UA 1.015 1.003 - 1.035 10/03/2024 3:30 PM [facility] PH UA 6.5 5.0 - 8.0 10/03/2024 3:30 PM [facility] LEUKOCYTE ESTERASE UA Negative Negative 10/03/2024 3:30 PM [facility] NITRITE UA Negative Negative 10/03/2024 3:30 PM [facility] [place] PROTEIN UA Negative Negative 10/03/2024 3:30 PM INVOICE CHECKER [facility] [place] GLUCOSE UA Negative Negative 10/03/2024 3:30 PM INVOICE CHECKER [facility] [place] KETONES UA 1+(A) Negative 10/03/2024 3:30 PM INVOICE CHECKER [facility] UROBILINOGEN UA Normal <2.0 mg/dL 3:30 PM INVOICE CHECKER [facility] BILIRUBIN UA Negative Negative 10/03/2024 3:30 PM INVOICE CHECKER [facility] BLOOD UA 1+(A) Negative 10/03/2024 3:30 PM INVOICE CHECKER [facility] WBC UA 6-10(A) 0 - 2 /hpf 10/03/2024 3:30 PM INVOICE CHECKER [facility] RBC UA 6-10(A) 0 - 2 /hpf 10/03/2024 3:30 PM INVOICE CHECKER [facility] BACTERIA UA 1+(A) Negative /hpf 10/03/2024 3:30 PM INVOICE CHECKER [facility] EPITHELIAL CELLS, URINE 0-5 0 - 5 /hpf 10/03/2024 3:30 PM INVOICE CHECKER [facility] HYALINE CAST 0-2 None Seen, 0-2 /lpf 10/03/2024 3:30 PM INVOICE CHECKER [facility] Urine URINE SPECIMEN OBTAINED BY CLEAN CATCH PROCEDURE / Unknown Collection / Unknown 10/03/2024 3:15 PM INVOICE CHECKER 10/03/2024 3:23 PM INVOICE CHECKER Mansi Roa MD URINE ORDERABLES Amanda l Result [facility] CLIA # [id number] [facility] [address] [place] [address] * EXTRA TUBE (GREEN) (10/03/2024 2:22 PM INVOICE CHECKER) Blood Venipuncture / Unknown 10/03/2024 2:22 PM INVOICE CHECKER 10/03/2024 2:35 PM INVOICE CHECKER Mansi Roa MD CHEMISTRY ORDERABLES Final Result Performing Organization Address [facility] Co de Phone Number [facility] CLIA # [id number] [address] [address] * EXTRA TUBE (BLUE) (10/03/2024 2:22 PM INVOICE CHECKER) Only the most recent of2 resultswithin the time period is included. Blood Venipuncture / Unknown 10/03/2024 2:22 PM INVOICE CHECKER 10/03/2024 2:33 PM INVOICE CHECKER Mansi Roa MD HEMATOLOGY ORDERABLES Final Result Performing Organization Address [facility] de Phone Number [facility] CLIA # [id number] y [address] [place] [phone] * HCG QUALITATIVE, BLOOD (10/03/2024 2:22 PM INVOICE CHECKER) Only the most recent of3 resultswithin the time period is included. HCG QUAL, BLOOD Negative Negative 10/03/2024 2:47 PM INVOICE CHECKER [facility] Blood Collection / Unknown 10/03/2024 2:22 PM INVOICE CHECKER 10/03/2024 2:27 PM INVOICE CHECKER Narrative [facility] - 10/03/2024 2:47 PM INVOICE CHECKER hCG sensitive to as little as 10 mIU/mL for serum. Mansi Roa MD CHEMISTRY ORDERABLES Final Result Performing Organization Address [facility] Co de Phone Number [facility] CLIA # [id number] y [address] [place] [phone] * (ABNORMAL) CBC WITH DIFFERENTIAL (10/03/2024 2:21 PM INVOICE CHECKER) Only the most recent of5 resultswithin the time period is included. WBC 10.4 4.0 - 11.0 K/uL 10/03/2024 2:29 PM INVOICE CHECKER [facility] [place] RBC 5.35 4.20 - 5.40 M/uL 10/03/2024 2:29 PM [facility] [place] HEMOGLOBIN 16.0(H) 11.9 - 15.1 g/dL 10/03/2024 2:29 PM [facility] [place] HEMATOCRIT 45.0 38.0 - 47.0 % 10/03/2024 2:29 PM [facility] [place] MCV 84.1 80.0 - 98.0 fL 10/03/2024 2:29 PM [facility] [place] MCH 29.9 26.0 - 34.0 pg 10/03/2024 2:29 PM [facility] [place] MCHC 35.6 31.0 - 37.0 g/dL 10/03/2024 2:29 PM [facility] [place] RDW 13.8 11.5 - 14.5 % 10/03/2024 2:29 PM [facility] [place] RDW-STDEV 42.2 34.0 - 54.0 fL 10/03/2024 2:29 PM [facility] [place] PLATELETS 404(H) 150 - 400 K/uL 10/03/2024 2:29 PM [facility] [place] MPV 10.2 8.5 - 12.5 fL 10/03/2024 2:29 PM [facility] [place] NEUTROPHILS 58 50 - 70 % 10/03/2024 2:29 PM [facility] [place] LYMPHOCYTES 33 20 - 40 % 10/03/2024 2:29 PM [facility] [place] MONOCYTES 9(H) 2 - 8 % 10/03/2024 2:29 PM [facility] [place] EOSINOPHILS 0(L) 1 - 3 % 10/03/2024 2:29 PM [facility] [place] BASOPHILS 0 0 - 1 % 10/03/2024 2:29 PM [facility] [place] IMMATURE GRANULOCYTES 0 0 - 2 % 10/03/2024 2:29 PM [facility] [place] NEUTROPHIL ABSOLUTE 6.00 1.80 - 7.70 K/uL 10/03/2024 2:29 PM [facility] LYMPHOCYTE ABSOLUTE 3.43(H) 1.00 - 3.30 K/uL 10/03/2024 2:29 PM INVOICE CHECKER [facility] [place] MONOCYTE ABSOLUTE 0.91(H) 0.00 - 0.80 K/uL 10/03/2024 2:29 PM [facility] EOSINOPHIL ABSOLUTE 0.02 0.00 - 0.45 K/uL 10/03/2024 2:29 PM [facility] BASOPHILS ABSOLUTE 0.04 0.00 - 0.20 K/uL 10/03/2024 2:29 PM INVOICE CHECKER [facility] IMMATURE GRANULOCYTES ABSOLUTE 0.03 0.00 - 0.31 K/uL 10/03/2024 2:29 PM [facility] Blood Collection / Unknown 10/03/2024 2:21 PM INVOICE CHECKER 10/03/2024 2:27 PM INVOICE CHECKER us Mansi Roa MD HEMATOLOGY ORDERABLES Final Result Performing Organization Address City/[facility]/ZIP Co de Phone Number [facility] CLIA # [id number] [address] [place] [address] * LIPASE (10/03/2024 2:21 PM INVOICE CHECKER) Only the most recent of5 resultswithin the time period is included. LIPASE 26 13 - 60 U/L 10/03/2024 2:44 PM [facility] Blood Collection / Unknown 10/03/2024 2:21 PM INVOICE CHECKER 10/03/2024 2:33 PM INVOICE CHECKER us Mansi Roa MD CHEMISTRY ORDERABLES Final Result Performing Organization Address City/[facility]/ZIP Co de Phone Number [facility] Marek XAVIER CLIA # [id number] [address] [place] [address] * (ABNORMAL) COMPREHENSIVE METABOLIC PANEL (10/03/2024 2:21 PM INVOICE CHECKER) Only the most recent of5 resultswithin the time period is included. SODIUM 133(L) 136 - 145 mmol/L 10/03/2024 2:44 PM [facility] [place] POTASSIUM 3.0(L) 3.5 - 5.1 mmol/L 10/03/2024 2:44 PM [facility] [place] CHLORIDE 90(L) 98 - 107 mmol/L 10/03/2024 2:44 PM [facility] [place] CO2 27 22 - 29 mmol/L 10/03/2024 2:44 PM [facility] [place] CALCIUM 9.8 8.6 - 10.0 mg/dL 10/03/2024 2:44 PM [facility] [place] BUN 12 6 - 20 mg/dL 10/03/2024 2:44 PM [facility] [place] CREATININE 0.79 0.51 - 0.95 mg/dL 10/03/2024 2:44 PM [facility] GLUCOSE 100(H) 74 - 99 mg/dL 10/03/2024 2:44 PM [facility] TOTAL PROTEIN 8.1 6.6 - 8.7 g/dL 10/03/2024 2:44 PM [facility] [place] ALBUMIN 4.6 4.0 - 5.0 g/dL 10/03/2024 2:44 PM [facility] [place] BILIRUBIN TOTAL 0.7 <=1.2 mg/dL 10/03/2024 2:44 PM [facility] ALKALINE PHOSPHATASE 87 35 - 104 U/L 10/03/2024 2:44 PM [facility] [place] AST 16 <40 U/L 10/03/2024 2:44 PM [facility] [place] ALT 20 <=33 U/L 10/03/2024 2:44 PM [facility] [place] GFR >60 >=60 mL/min/1.7 3 sq meter 10/03/2024 2:44 PM [facility] [place] Comment:eGFR calculated with 2020 CKD-EPI equation. Vegetarian diet, extremely high or low muscle mass, and may affect results. Cystatin C with Glomerular Filtration Rate is a suitable alternative for these patients. ANION GAP 16(H) 5 - 15 mmol/L 10/03/2024 2:44 PM INVOICE CHECKER [facility] Blood Collection / Unknown 10/03/2024 2:21 PM INVOICE CHECKER 10/03/2024 2:33 PM INVOICE CHECKER Mansi Roa MD CHEMISTRY ORDERABLES Final Result [facility] CLIA # [id number] [address] [place] [address] * XR ABDOMEN 1 VW (10/03/2024 1:58 PM INVOICE CHECKER) Anatomical Region Laterality Modality Abdomen Computed Radiogr aphy 10/03/2024 1:58 PM INVOICE CHECKER Impressions 10/03/2024 2:09 PM INVOICE CHECKER IMPRESSION: 1. No acute abnormality. DICTATION LOCATION: Location 4 Narrative 10/03/2024 2:09 PM INVOICE CHECKER XR ABDOMEN 1 VW DATE: 10/03/2024 1:58 [...] ABDOMEN PELVIS W CONTRAST (09/03/2024 5:20 PM INVOICE CHECKER) Only the most recent of2 resultswithin the time period is included. Anatomical Region Laterality Modality Abdomen Computed Tomogra phy 09/03/2024 5:21 PM INVOICE CHECKER Impressions 09/03/2024 5:30 PM INVOICE CHECKER IMPRESSION: 1. Bladder wall thickening. Correlate for cystitis. 2. Mild chronic wall thickening throughout the colon. Possible chronic colitis. Dictation location: Location 4 Narrative 09/03/2024 5:[address] ABDOMEN PELVIS W CONTRAST CLINICAL INDICATION: [...] Result * EKG 12-LEAD (09/03/2024 2:05 PM INVOICE CHECKER) Only the most recent of3 resultswithin the time period is included. 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1985 Requested By: CANDELARIA DOYLE Order Number: [id number] Arianna SQUIRES: Saud Fonseca Measurements Intervals [place] Rate: 65 P: 69 WV: 106 QRS: 48 QRSD: 85 T: 66 QT: 392 QTc: 408 Interpretive Statements SINUS RHYTHM WITH SHORT WV INTERVAL Electronically Signed On 09-03-2024 14:27:16 INVOICE CHECKER by Saud Fonseca Procedure Note Saud Fonseca MD - 09/03/2024 [facility] ED [address], [place] [address] Test Date: 2024-09-03 Pat Name: [facility] Department: 5000 Room: [facility] ED12 Gender: Female 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1985 Requested By: CANDELARIA DOYLE Order Number: [id number] Arianna Fonseca Measurements Intervals [place] Rate: 65 P: 69 WV: 106 QRS: 48 QRSD: 85 T: 66 QT: 392 QTc: 408 Interpretive Statements SINUS RHYTHM WITH SHORT WV INTERVAL Electronically Signed On 09-03-2024 14:27:16 INVOICE CHECKER by Saud Fonseca Candelaria Doyle MD ECG ORDERABLES Final Result INTERFACE SYSTEM Refer to clinic/hospital department * XR CHEST PA OR AP 1 VW (09/03/2024 1:52 PM INVOICE CHECKER) Anatomical Region Laterality Modality Chest Computed Radiogr aphy 09/03/2024 1:52 PM INVOICE CHECKER Impressions 09/03/2024 1:58 PM INVOICE CHECKER FINDINGS/ IMPRESSION: MEDIASTINUM: Cardiac silhouette is not enlarged. LUNGS: No focal consolidation. No appreciable pneumothorax or pleural effusion. DICTATION LOCATION: Location 1 - [facility] Narrative 09/03/2024 1:58 PM INVOICE CHECKER XR CHEST PA OR AP 1 VW [...] pleural effusion. DICTATION LOCATION: Location 1 - [facility] Candelaria Doyle MD DIAGNOSTIC IMAGING ORDERABLES Final Result * TROPONIN BASELINE, 5TH GEN (09/03/2024 11:50 AM INVOICE CHECKER) Only the most recent of2 resultswithin the time period is included. TROPONIN T, BASELINE 5TH GEN <6 <=10 ng/L 09/03/2024 1:43 PM INVOICE CHECKER [facility] Blood Collection / Unknown 09/03/2024 11:50 AM INVOICE CHECKER 09/03/2024 12:23 PM INVOICE CHECKER Narrative [facility] - 09/03/2024 1:43 PM INVOICE CHECKER Troponin Undetectable Candelaria Doyle MD CHEMISTRY ORDERABLES Final Re sult [facility] CLIA # [id number] [facility] [address] [place] [address] * MAGNESIUM LEVEL (09/03/2024 11:50 AM INVOICE CHECKER) Only the most recent of2 resultswithin the time period is included. MAGNESIUM 2.2 1.6 - 2.6 mg/dL 09/03/2024 1:38 PM INVOICE CHECKER [facility] [place] [facility] Blood Collection / Unknown 09/03/2024 11:50 AM INVOICE CHECKER 09/03/2024 12:23 PM INVOICE CHECKER Candelaria Doyle MD CHEMISTRY ORDERABLES Final Re sult Performing Organization Address City/[facility]/ZIP Co de Phone Number [facility] [place] [facility] CLIA # [id number] [facility] [address] [place] [address] * (ABNORMAL) INFLUENZA A/B, RSV AND COVID-19 PCR PANEL (08/31/2024 9:33 AM INVOICE CHECKER) Pathologist [facility] COVID-19 PCR NOT DETECTED Not Detected 08/31/19 10:25 AM [facility] [place] [facility] Influenza A by PCR NOT DETECTED Not Detected 08/31/2024 10:25 AM [facility] [place] [facility] Influenza B by PCR NOT DETECTED Not Detected 08/31/2024 10:25 AM [facility] [place] [facility] RSV by PCR DETECTED(A) Not Detected 08/31/2024 10:25 AM [facility] [place] [facility] Upper Respiratory ENTIRE NASOPHARYNX / Unknown Collection / Unknown 08/31/2024 9:33 AM INVOICE CHECKER 08/31/2024 9:47 AM INVOICE CHECKER Narrative [facility] - 08/31/2024 10:25 AM INVOICE CHECKER This test has been authorized by the [...] [facility] GON[facility]ALEZ # [id number] [facility] [address] [place] [address] * US ABDOMEN LIMITED (07/08/2024 7:30 AM INVOICE CHECKER) Anatomical Region Laterality Modality Abdomen Ultrasound 07/08/2024 7:36 AM INVOICE CHECKER Impressions 07/08/2024 8:05 AM INVOICE CHECKER IMPRESSION: 1. Mild abnormal echogenicity of the liver which can be seen with steatosis or other diffuse hepatocellular process. This limits the sensitivity for the detection of hepatic masses. 2. Unremarkable gallbladder. DICTATION LOCATION: Location 9 - [facility] Narrative 07/08/2024 8:05 AM INVOICE CHECKER US ABDOMEN LIMITED DATE: 07/08/2024 7:30 AM HISTORY: 39-year-old female with nausea and vomiting TECHNIQUE: Limited right upper quadrant ultrasound performed by an chemistry technologist in multiple projections. COMPARISON: None FINDINGS: [...] right upper quadrant ultrasound performed by an chemistry technologist in multiple projections. COMPARISON: None FINDINGS: [...] 2. Unremarkable gallbladder. DICTATION LOCATION: Location - [facility] us Jagruti Lim MD US ORDERABLES Amanda l Result * PROCALCITONIN (07/08/2024 4:08 AM INVOICE CHECKER) PROCALCITONIN 0.03 <=0.25 ng/mL 07/08/2024 6:11 AM INVOICE CHECKER [facility] Blood Collection / Unknown 07/08/2024 4:08 AM INVOICE CHECKER 07/08/2024 4:18 AM INVOICE CHECKER Narrative [facility] - 07/08/2024 6:11 AM INVOICE CHECKER The utility of procalcitonin is limited/NOT recommended [...] CHEMISTRY ORDERABLES Final Result Performing Organization Address City/[facility]/ZIP Co de Phone Number [facility] CLIA # [id number] [address] [place] [address] * (ABNORMAL) C-REACTIVE PROTEIN (07/08/2024 4:08 AM INVOICE CHECKER) CRP 7.4(H) <=5.0 mg/L 07/08/2024 6:10 AM INVOICE CHECKER [facility] Blood Collection / Unknown 07/08/2024 4:08 AM INVOICE CHECKER 07/08/2024 4:18 AM INVOICE CHECKER Jagruti Lim MD CHEMISTRY ORDERABLES Final Result Performing Organization Address [facility] Co de Phone Number [facility] [place] [facility] CLIA # [id number] [facility] [address] [place] [address] * (ABNORMAL) PHOSPHORUS (07/08/2024 4:08 AM INVOICE CHECKER) Pathologist [facility] PHOSPHORUS 1.1(L) 2.5 - 4.5 mg/dL 07/08/2024 9:43 AM INVOICE CHECKER [facility] [place] [facility] Blood Collection / Unknown 07/08/2024 4:08 AM INVOICE CHECKER 07/08/2024 4:18 AM INVOICE CHECKER Anabel Philip MD CHEMISTRY ORDERABLES Final Resul t Performing Organization Address City/[facility]/ZIP Co de Phone Number [facility] [place] [facility] CLIA # [id number] [facility] [address] [place] [address] * HEMOGLOBIN A1C (07/06/2024 11:55 PM INVOICE CHECKER) Pathologist [facility] HEMOGLOBIN A1C 5.5 <=5.6 % 07/07/2024 12:40 AM INVOICE CHECKER [facility] [place] [facility] EST. AVG GLUCOSE, A1C 111 mg/dL 07/07/2024 12:40 AM INVOICE CHECKER [facility] Blood Collection / Unknown 07/06/2024 11:55 PM INVOICE CHECKER 07/07/2024 12:19 AM INVOICE CHECKER Narrative [facility] - 07/07/2024 12:40 AM INVOICE CHECKER HGB A1C INTERPRETATION NORMAL: <5.7% PRE-DIABETES: 5.7 - 6.4% DIABETES: 6.5% OR GREATER us Protocol Roula Morrison MD CHEMISTRY ORDERABLES Final Result [facility] CLIA # [id number] [facility] [address] [place] [address] * (ABNORMAL) CERV/VAG CYTO SCREEN PAP W/HPV (04/07/2022 12:00 AM CDT) CLINICAL INFORMATION [facility] Comment:SCREENING LAST MENSTRUAL PERIOD [facility] Comment:INFORMATION NOT PROV IDED PREV PAP: [facility] Comment:INFORMATION NOT PROV IDED PREV BX: [facility] Comment:INFORMATION NOT PROV IDED SOURCE [facility] Comment:Endocervix ADEQUACY: [facility] Comment: Satisfactory for evaluation. Endocervical/transformation zone component present. Age and/or menstrual status not provided PAP INTERP [facility] Comment:Negative for intraep ithelial lesion or malignancy. CYTOLOGY INFECTION [facility] [place] Comment: Shift in vaginal colton suggestive of bacterial vaginosis. COMMENT (PAP TEST) [facility] [place] Comment: This Pap test has been evaluated with computer assisted technology. PROGRAMMER: [facility] [place] Comment: JAF, CT(ASCP) CT Screening Location: [place] [address] [place] [address] REVIEW PROGRAMMER: Hodan JAB [employer] Chen Comment: [facility], CT(ASCP) CT screening location: [place] [address] [address] [place] [address] [address] [facility] [place] Comment: EXPLANATORY NOTE: The Pap is a [...] information. HPV E6/E7 Detected( A) Not Detected [facility] [place] Comment: Methodology: Upstairs Maid-Mediated Amplification This assay detects E6/E7 viral messenger RNA (mRNA) from 14 high-risk HPV types (16,18,31,33,35,39,45,51,52,56,58,59,66,68). Cervical sources are required for HPV testing. If a vaginal source from a patient who has had a total hysterectomy with removal of cervix was submitted, please contact the testing laboratory for alternative testing options. For additional information, please refer to http://education.Eyefreight/faq/FME119e9 (This link if provided for information/ educational purposes only.) Test Performed at: [facility] [address] [address] Willi Gerber D.O., MPH SL Genital SWAB OF ENDOCERVIX / Unknown 04/07/2022 04/07/2022 9:33 PM CDT Hazel Mcadams MD PATHOLOGY/CYTOLOGY ORDERABLES nal Result [facility] [phone] [place] [address] [address] [address] from Last 3 Months or Most Recently Relevant to Health Maintenance Insurance [employer] OPEN CHOICE PPO [facility] BLUE ACCESS CHOICE Advance Directives For more information, please contact: [phone] * Full Code (Latest Code Status on File) Date Activated Date Inactivated Comments 07/08/2024 6:36 AM 07/08/2024 6:14 PM Care Teams Rooming House Inspector Relationship Specialty Start Date End Date Geo Duff MD PCP - General Family Practice 07/07/24
--- OUTSIDE RECORDS SUMMARY | 2024-10-06 20:45 | XMS_ITS | Referral Summary ---
Author Organization [facility] Address [address] [place] [address] Care Team Providers Care Software Integration Developer Name Role Phone Azar Braxton MD Primary Care Provider [phone] Source Comments [facility],non-owned Affiliates and Associated Physician Practices is amultiple site organization consisting of ambulatory clinics and hospital sitesin [place], [place], [place] and [place]. This disclosure is being madepursuant to the Care Everywhere program and may not contain all information available regarding this patient. Last updated 18.[facility] Allergies Active Allergy Reactions Criticality Noted Date [...] 08/26/201507/07 Immunizations Name Administration Dates Next Due Vibes primary monoval ent 12+ yr 0.3mL Purple [...] file Gender Identity Female 08/19/2022 7:56 AM GROUT PUMP OPERATOR Sexual Orientation Not on file Last Filed Vital Signs Vital Sign Reading Time Taken Comments Blood Pressure 110/78 03/17/2023 1:17 PM CDT Pulse 88 03/17/2023 1:17 PM CDT Temperature 36.9 C (98.5 F) 03/17/2023 1:17 PM CDT Respiratory Rate 20 08/19/2022 2:34 PM GROUT PUMP OPERATOR Oxygen Saturation 99% 03/17/2023 1:17 PM [...] Comments LIPID PROFILE Routine 07/07/2021 11:19 AM GROUT PUMP OPERATOR Routine physical examination HIV-1 HIV-2 ANTIBODY + HIV P24 AG PANEL Routine 07/07/2021 11:19 AM GROUT PUMP OPERATOR Routine physical examination HEPATITIS C AB W RFLX VERIFICATION Routine 06/01/2015 7:43 AM CDT MAMMO BILAT SCREENING Routine 08/23/2011 7:59 AM GROUT PUMP OPERATOR Family history of breast cancer in first degree relative from Last 3 Months or Most Recently Relevant to Health Maintenance Results * HIV-1 HIV-2 ANTIBODY + HIV P24 AG PANEL (07/07/2021 11:19 AM GROUT PUMP OPERATOR) [facility] HIV Screen 4th Generation w Reflex Non Reactive Non Reactive [facility] INSURANCE BILL Blood BLOOD SPECIMEN / Unknown 07/07/2021 11:19 AM GROUT PUMP OPERATOR 07/07/2021 Narrative Resulting Agency Comment Lab [facility] performed [facility]: [facility] [address] [facility] [id number] Azar Braxton MD LAB - CHEMISTRY [facility]FF[place]IE WILLS [facility] INSURANCE BILL [address] [place] [address] * (ABNORMAL) LIPID PROFILE (07/07/2021 11:19 AM GROUT PUMP OPERATOR) Cholesterol 232(H) <200 mg/dL [facility] INSURANCE BILL Triglycerides 134 <150 mg/dL [facility] INSURANCE BILL HDL Cholesterol 58 >40 mg/dL [facility] INSURANCE BILL VLDL Calculated 27 <=30 mg/dL [facility] INSURANCE BILL LDL Calculated 147(H) <130 mg/dL [facility] INSURANCE BILL Blood BLOOD SPECIMEN / Unknown 07/07/2021 11:19 AM GROUT PUMP OPERATOR 07/07/2021 Narrative Resulting Agency Comment Lab Testing performed at: [place] [address] [facility] [id number] Azar Braxton MD LAB - CHEMISTRY [facility] [address] [place] [address] * HEPATITIS C AB W RFLX VERIFICATION (06/01/2015 7:43 AM CDT) Hepatitis C Antibody <0.1 0.0 - 0.9 s/co ratio [facility] 06/01/2015 7:43 AM CDT 06/01/2015 9:18 AM CDT Narrative [facility] - 06/02/2015 6:15 AM CDT Performed at: [address] [place] [id number] [address] [address] Operator: Erasmo Morris PhD, Phone: [phone] Annette Singh MD LAB - CHEMISTRY [facility]FF[facility]IE WILLS [facility] * MAMMO SCREENING DIGITAL IMAGE BILAT (08/23/2011 7:59 AM GROUT PUMP OPERATOR) Anatomical Region Laterality Modality Breast Bilateral Mammography 08/23/2011 12:0 7 PM GROUT PUMP OPERATOR Narrative 08/23/2011 12:27 PM GROUT PUMP OPERATOR DIGITAL BILATERAL SCREENING MAMMOGRAMS WITH CAD [...] if suspicious findings are present clinically. [facility] [employer] Certified [facility] Procedure Note [...] if suspicious findings are present clinically. [facility] [employer] Certified [facility] Daja Orr MD MAMMO ORDERABLES from Last 3 Months or Most Recently Relevant to Health Maintenance Advance Directives * FULL RESUSCITATION (Latest Code Status on File) Date Activated Date Inactivated Comments 04/03/2011 3:58 PM 04/08/2011 4:57 AM Care Teams Software Integration Developer Relationship Specialty Start Date End Date Azar Braxton MD [address] [address] PCP - General Family Medicine 07/07/21
--- OUTSIDE RECORDS SUMMARY | 2024-10-06 20:45 | XMS_ITS | Clinical Summary ---
Author Organization [facility] Address [address] [place], [place] [address] Care Team Providers Care Crimping Machine Operator Name Role Phone Pcp, Verify Primary Care [...] age to complete this topic Care Teams Crimping Machine Operator Relationship Specialty Start Date End Date Pcp, Verify PCP - General 08/19/21
--- OUTSIDE RECORDS SUMMARY | 2024-10-06 20:45 | XMS_ITS | Patient Health Summary ---
Author Organization [facility] Address [address] [place] [address] Care Team Providers Care Stone Layout Marker Name Role Phone Jose Alberto Braxton MD Primary Care Provider + [phone] Note from [facility] [place],non-owned Affiliates and Associated Physician Practices is amultiple site organization consisting of ambulatory clinics and hospital sitesin [place], [place], [place] and [place]. This disclosure is being madepursuant to the Care Everywhere program and may not contain all information available regarding this patient. Last updated 18.[facility] Allergies * Latex(Itching) * Reglan(GI Discomfort,Palpitations) [...] 07/07/2021 Anxiety and depression 08/26/201507/07 Immunizations * Pixelpipe primary monovalent 12+ yr 0.3mL Purple cap(Given [...] Gender Identity Female 08/19/2022 7:56 AM TOOL CRIB CLERK Sexual Orientation Not on file Last Filed Vital Signs Vital Sign Reading Time Taken Comments Blood Pressure 110/78 03/17/2023 1:17 PM CDT Pulse 88 03/17/2023 1:17 PM CDT Temperature 36.9 C (98.5 F) 03/17/2023 1:17 PM CDT Respiratory Rate 20 08/19/2022 2:34 PM TOOL CRIB CLERK Oxygen Saturation 99% 03/17/2023 1:17 PM [...] ECHO COMPLETE (11/11/2022 8:40 AM CDT) BSA [id number] m2 [facility] CV FUJI PACS LV biplane [...] CV F UJI PACS LVOT mn dwaine [id number] m/s [facility] CV FUJI PACS LVOT mn [...] PACS LVOT VTI 20.9 cm [facility] CV [facility] I PACS AV area planimetry 2.09 cm2 [...] CUPID * EVENT MONITOR (08/22/2022 12:00 PM TOOL CRIB CLERK) 08/22/2022 12:0 0 PM TOOL CRIB CLERK Narrative Procedure Note Molly Redmond DO - 08/22/2022 11:59 PM CST [facility] Event Monitor Report PATIENT NAME: ÁNGELA IBRAHIM MR#: [id number] AGE: 37 CSN: [id number] : 1985 DATE OF ADMISSION: 08/22/2022 DATE [...] REDMOND DO DICTATED FOR: SMStacy/MODL JOB ID: [id number] Cardiac Catheterization Report Jose Alberto Braxton MD CARDIAC SERVICES ORD ERABLES [facility] * (ABNORMAL) CBC WITH DIFFERENTIAL (08/19/2022 3:05 PM TOOL CRIB CLERK) Only the most recent of13 resultswithin [...] x10E9/L [facility] INSURANCE BILL Comment:MPV FL BLOOD ([facility]) 1 0.4 fl 9.4-12.9 Granulocytes % 28.7(L) [...] BLOOD SPECIMEN / Unknown 08/19/2022 3:05 PM TOOL CRIB CLERK 08/19/2022 Narrative Resulting Agency Comment Lab Testing performed at: [address] [phone] Molly Angeles SPECIAL OFFICER [employer]ER LAB - HEMATO LOGY ORDERABLES [facility] INSURANCE BILL [address] [place] [address] * TSH REFLEX FREE T4 (08/19/2022 3:04 PM TOOL CRIB CLERK) Pathologist [facility] TSH 0.721 0.350 - 4.940 uIU/mL [facility] INSURANCE BILL Blood BLOOD SPECIMEN / Unknown 08/19/2022 3:04 PM TOOL CRIB CLERK 08/19/2022 Narrative Resulting Agency Comment Lab Testing performed at: [place] [address] [facility] [phone] Molly Angeles SPECIAL OFFICER [employer] LAB - CHEMIS TRY ORDERABLES [facility] INSURANCE BILL [address] [place] [address] * (ABNORMAL) COMPREHENSIVE METABOLIC PANEL (08/19/2022 3:04 PM TOOL CRIB CLERK) Only the most recent of9 resultswithin the time period is included. Pathologist [facility] Glucose 121(H) 70 - 105 mg/dL [facility] [...] BLOOD SPECIMEN / Unknown 08/19/2022 3:04 PM TOOL CRIB CLERK 08/19/2022 Narrative Resulting Agency Comment Lab Testing performed at: [address] [phone] Molly Angeles SPECIAL OFFICER [employer]ER LAB - CHEMIS TRY ORDERABLES [facility] INSURANCE BILL [address] [place] [address] * HIV-1 HIV-2 ANTIBODY + HIV P24 AG PANEL (07/07/2021 11:19 AM TOOL CRIB CLERK) Pathologist [facility] HIV Screen 4th Generation w Reflex Non Reactive Non Reactive [facility] INSURANCE BILL Blood BLOOD SPECIMEN / Unknown 07/07/2021 11:19 AM TOOL CRIB CLERK 07/07/2021 Narrative Resulting Agency Comment [facility]: [facility] [address] [id number] Jose Alberto Braxton MD LAB - CHEMISTRY TIFFANIE WILLS [facility] INSURANCE BILL [address] [place] [address] * TSH HI LOW REFLEX FREE T4 (07/07/2021 11:19 AM TOOL CRIB CLERK) Pathologist [facility] TSH 2.852 0.350 - 4.940 uIU/mL [facility] INSURANCE BILL Blood BLOOD SPECIMEN / Unknown 07/07/2021 11:19 AM TOOL CRIB CLERK 07/07/2021 Narrative Resulting Agency Comment Lab Testing performed at: [address] [phone] Jose Alberto Braxton MD LAB - CHEMISTRY TIFFANIE WILLS [facility] INSURANCE BILL [address] [place] [address] * HEMOGLOBIN A1C (07/07/2021 11:19 AM TOOL CRIB CLERK) Only the most recent of2 resultswithin the time period is included. Pathologist [facility] Hemoglobin A1c 5.0 4.2 - 5.6 % [facility] INSURANCE BILL Comment: AVERAGE GLUCOSE MG/DL BLOOD 97 mg/dL The following cutoff levels are recommended by [place] [employer]. A1c > 6.5% : [...] BLOOD SPECIMEN / Unknown 07/07/2021 11:19 AM TOOL CRIB CLERK 07/07/2021 Narrative Resulting Agency Comment Lab Testing performed at: [address] [phone] Jose Alberto Braxton MD LAB - CHEMISTRY TIFFANIE WILLS Performing Organization Address [facility] Co de Phone Number [facility] INSURANCE BILL [address] [place] [address] * (ABNORMAL) LIPID PROFILE (07/07/2021 11:19 AM TOOL CRIB CLERK) Only the most recent of4 resultswithin the time period is included. Cholesterol 232(H) <200 mg/dL [facility] INSURANCE BILL Triglycerides 134 <150 mg/dL [facility] INSURANCE BILL HDL Cholesterol 58 >40 mg/dL [facility] INSURANCE BILL VLDL Calculated 27 <=30 mg/dL [facility] INSURANCE BILL LDL Calculated 147(H) <130 mg/dL [facility] INSURANCE BILL Blood BLOOD SPECIMEN / Unknown 07/07/2021 11:19 AM TOOL CRIB CLERK 07/07/2021 Narrative Resulting Agency Comment Lab Testing performed at: [address] [id number] Jose Alberto Braxton MD LAB - CHEMISTRY TIFFANIE WILLS Performing Organization Address City/[facility]/ZIP Co de Phone Number [facility] INSURANCE BILL [address] [place] [address] * PATHOLOGY/CYTOLOGY REPORT ORDER (08/23/2019 8:52 PM TOOL CRIB CLERK) Only the most recent of2 resultswithin the time period is included. Narrative 08/23/2019 8:52 PM TOOL CRIB CLERK Ordered by an unspecified provider. Scanned [...] MD on 04/20/2019 at 2:58 PM Patito [facility] ORDERABLES * HCG URINE QUALITATIVE - POCT (IP) INTERFACED (04/20/2019 1:05 PM CDT) HCG Qual Urine Negative Negative 04/20/2019 1:10 PM CDT [facility] Urine URINE / Unknown 04/20/2019 1 :05 PM CDT 04/20/2019 1:10 PM CDT Provider Unknown LAB - POINT OF CARE ORDERABLES [facility] [address] [place] [address] * HCG URINE QUAL POCT NOTIFICATION (04/20/2019 12:58 PM CDT) Comment Notification Label Only - See Separate Report 04/20/2019 2:00 PM CDT [facility] Urine URINE / Unknown 04/20/2019 1 2:58 PM CDT 04/20/2019 12:58 PM CDT Patito Kolb PA-C LAB - URINALYSIS O RDERABLES [facility] [address] [address] * (ABNORMAL) BASIC METABOLIC PANEL (CALCIUM TOTAL) (04/20/2019 12:54 PM CDT) Glucose 112(H) 74 - 106 mg/dL 04/20/2019 1:24 PM CDT [facility] Sodium 136 136 - 145 mmol/L 04/20/2019 1:24 PM T [facility] Potassium 3.6 3.5 - 5.1 mmol/L 04/20/2019 1:24 PM T [facility] Chloride 100 98 - 107 mmol/L 04/20/2019 1:24 PM CDT [facility] CO2 23 23 - 31 mmol/L 04/20/2019 1:24 PM CDT [facility] Calcium 9.0 8.4 - 10.2 mg/dL 04/20/2019 1:24 PM CDT [facility] Anion Gap 13 8 - 16 mmol/L 04/20/2019 1:24 PM CDT [facility] BUN 15 7 - 18.7 mg/dL 04/20/2019 1:24 PM CDT [facility] Creatinine 0.92 0.55 - 1.02 mg/dL 04/20/2019 1:24 PM CDT [facility] eGFR by MDRD >60 >60 mL/min/1.7 3m2 04/20/2019 1:24 PM T [facility] eGFR by MDRD >60 >60 mL/min/1.7 3m2 04/20/2019 1:24 PM CDT [facility] Blood BLOOD SPECIMEN / Unknown Venipuncture / Unknown 04/20/2019 12:54 PM CDT 04/20/2019 1:05 PM CDT Patito Kolb PA-C LAB - CHEMISTRY OR DERABLES [facility] [address] [address] * GROSS + MICRO EXAM (STL) (01/23/2019 7:45 AM CDT) Only the most recent of2 resultswithin the time period is included. Case Report Surgical Pathology Report Case: [id number] Authorizing Provider: Drew Orlando MD Collected: 01/23/2019 07:45 AM Ordering Location: [facility] Received: 01/23/2019 12:56 PM Pathologist: Yuni Younger MD Specimens: A) - Cervix Conization, ecto cervix 12 oclock B) - Cervix Conization, endo cervix 01/25/2019 12:03 PM CDT [facility] Final Diagnosis Uterus, cervix, conization: - High-grade squamous intraepithelial lesion (JOSE RAMON-2) - Margins negative for JOSE RAMON-2 Uterus, endocervix, excision: - No evidence of dysplasia or malignancy KL/na 01/25/2019 12:03 PM CDT [facility] Clinical History HGSIL. 01/25/2019 12:03 PM CDT [facility] Gross Description Specimen received in [...] through B2. DELFIN/ 01/25/2019 12:03 PM T [facility] Microscopic Description Histologic sections of the cervix cone show cervix at the transition zone with chronic inflammation and areas of high-grade squamous intraepithelial lesion (JOSE RAMON-2). The margins are negative for high-grade dysplasia. There is no evidence of invasive malignancy. Histologic sections of the endocervix show benign endocervix with no evidence of dysplasia or malignancy. DELFIN/kvng 01/25/2019 12:03 PM T [facility] Disclaimer All histochemical and/or immunohistochemical results are interpreted with controls that demonstrate appropriate staining reactions before reporting results. Note on use of immunocytochemistry reagents: This test was developed and its performance characteristic determined by [facility], Department of Laboratory Medicine. It has not been cleared or approved by the U.S. Food and Drug Administration (FDA). The FDA has determined that such clearance or approval is not necessary. The test is used for clinical purpose. It should not be regarded as investigational or for research. This laboratory is certified to perform high complexity testing. 01/25/2019 12:03 PM [facility] Embedded Images 01/25/2019 12:03 PM T [facility] Pathology/Cytology SPECIMEN FROM LESION OF UTERINE CERVIX OBTAINED BY CONE BIOPSY / Unknown 01/23/2019 7:45 AM CDT 01/23/2019 12:56 PM CDT Miscellaneous samples (specimen) SPECIMEN FROM LESION OF UTERINE CERVIX OBTAINED BY CONE BIOPSY / Unknown 01/23/2019 7:45 AM CDT 01/23/2019 12:56 PM CDT Nolan Orlando MD LAB - PATHOLOGY/CYTO LOGY ORDERABLES [facility] [address] [place] [address] * INFLUENZA A+B - POCT (IP) URGENT CARE (09/25/2017 6:43 PM TOOL CRIB CLERK) Influenza A Antigen Rapid Negative Negative [facility] POCT TESTING Influenza B Antigen Rapid Negative Negative [facility] POCT TESTING QC Verified Yes Yes [facility] POC T TESTING Throat ENTIRE THROAT (SURFACE REGION OF NECK) / Unknown 09/25/2017 6:43 PM TOOL CRIB CLERK Monica Ostermiller SPECIAL OFFICER [employer]ING[employer] ASSEMBLER LAB - POINT O F CARE ORDERABLES [facility] POCT TESTING [address] [place] [address], [facility] * (ABNORMAL) STREP A SCREEN - POCT (IP) URGENT CARE (09/25/2017 6:37 PM TOOL CRIB CLERK) Strep A Rapid POCT Positive(A ) Negative [facility] POCT TESTING QC Verified Yes Yes [facility] POC T TESTING Throat ENTIRE THROAT (SURFACE REGION OF NECK) / Unknown 09/25/2017 6:37 PM TOOL CRIB CLERK Monica Ostermiller SPECIAL OFFICER [employer] ASSEM[employer]ER LAB - POINT O F CARE ORDERABLES Performing Organization Address City/[facility] Co de Phone Number [facility] POCT TESTING [address] * VITAMIN D 25-HYDROXY (03/29/2017 11:02 AM CDT) Only the most recent of2 resultswithin the time period is included. Vitamin D, 25 Hydroxy 34.8 30.0 - 100.0 ng/mL [facility] ACCOUNT BILL Comment: Vitamin D deficiency has been defined by the [place] [employer] and an Endocrine Society practice guideline as a level of serum 25-OH vitamin D less than 20 ng/mL (1,2). The Endocrine Society went on to further define vitamin D insufficiency as a level between 21 and 29 ng/mL (2). 1. IOM ([place] [employer]). 2010. Dietary reference intakes for calcium and D. [place]: The National Academies Press. 2. Brooke MF, Annette PAYNE, Clarice MORGAN, et al. Evaluation, treatment, and prevention of vitamin D deficiency: an Endocrine Society clinical practice guideline. JCEM. 2010; 96(7):1911-30. FASTING Blood BLOOD SPECIMEN / Unknown 03/29/2017 11:02 AM CDT 03/29/2017 Narrative Resulting Agency Comment [facility] [address] [phone] Avery Hidalgo DO LAB - CHEMISTRY TIFFANIE WILLS Performing Organization Address City/[facility]/ZIP Co de Phone Number [facility] ACCOUNT BILL [address] [place] [address] * TSH (03/29/2017 11:02 AM CDT) Only the most recent of5 resultswithin the time period is included. TSH 1.430 0.450 - 4.500 uIU/mL [facility] ACCOUNT BILL Comment:FASTING Blood BLOOD SPECIMEN / Unknown 03/29/2017 11:02 AM CDT 03/29/2017 Narrative Resulting Agency Comment [facility] [address] [facility] [address] [phone] Avery Hidalgo DO LAB - CHEMISTRY TIFFANIE WILLS Performing Organization Address [facility] Co de Phone Number [facility] ACCOUNT BILL [address] [place] [address] * CARDIAC EKG ORDER (12/07/2015 9:03 PM [...] * MONONUCLEOSIS SCREEN (12/04/2015 12:57 PM CDT) [facility] Mononucleosis Screen Negative Negative 12/04/2015 1:20 PM CDT [facility] Blood BLOOD SPECIMEN / Unknown 12/04/2015 12:57 PM CDT 12/04/2015 1:05 PM CDT Lydia Villaseñor MD LAB - CHEMISTRY TIFFANIE [facility] Organization Address City/State/ZIP Co de Phone Number [facility] [address] [place] [address] * EKG 12-LEAD (12/04/2015 12:22 PM CDT) Only the most recent of3 resultswithin the time period is included. [facility] Ventricular Rate 99 BPM [facility] MUSE Atrial Rate 99 BPM [facility] P-R Interval 114 ms [facility] QRS Duration ms 94 ms [facility] Q-T Interval ms 340 ms [facility] MUSE QTC Calculation (Bezet) 436 ms [facility] MUSE Calculated P [place] 70 degrees [facility] MUSE Calculated R [place] 70 degrees [facility] MUSE Calculated T [place] 64 degrees [facility] MUSE Interpretation EKG Normal sinus rhythm RSR' or QR pattern in V1 suggests right ventricular conduction delay When compared with ECG of 02-MAR-2013 19:44, No significant change was found Confirmed by Solomon Lopez ([id number]) on 12/06/2015 10:48:05 AM [facility] MUSE 12/04/2015 12:2 2 PM CDT 12/06/2015 10:48 AM CDT Lydia Villaseñor MD ECG ORDERABLES Performing Organization Address City/[facility]/ZIP Co de Phone Number [facility] MUSE * HCG URINE QUALITATIVE - POINT OF CARE (IP) (12/04/2015 12:16 PM CDT) Only the most recent of3 resultswithin the time period is included. HCG Qual Urine Negative Negative [facility] POCT TESTING QC Verified Yes Yes [facility] POC T TESTING Urine specimen (specimen) URINE / Unknown 12/04/2015 12:16 PM CDT Lydia Villaseñor MD LAB - POINT OF CARE ORDERABLES Performing Organization Address [facility] Co de Phone Number [facility] POCT TESTING [facility] [place] [address], [facility] * (ABNORMAL) URINALYSIS ROUTINE W/REFLEX TO CULTURE (12/04/2015 12:04 PM CDT) Color UA Yellow Straw, Yellow, Dark Yellow 12/04/2015 12:19 PM CDT [facility] Clarity UA Clear 12/04/2015 12:19 PM CDT [facility] Specific Parker UA 1.014 1.005 - 1.030 12/04/2015 12:19 PM CDT [facility] pH UA 8.5(H) 5.0 - 8.0 pH 12/04/2015 12:19 PM CDT [facility] Protein UA Negative Negative 12/04/2015 12:19 PM CDT [facility] Blood UA Negative Negative 12/04/2015 12:19 PM CDT [facility] Leukocyte UA Trace(A) Negative 12/04/2015 12:19 PM CDT [facility] Nitrite UA Negative Negative 12/04/2015 12:19 PM CDT [facility] Glucose UA Negative Negative 12/04/2015 12:19 PM CDT [facility] Ketone UA Negative Negative 12/04/2015 12:19 PM CDT [facility] Bilirubin UA Negative Negative 12/04/2015 12:19 PM CDT [facility] Urobilinogen UA 0.2 0.1 - 1.0 EU/dL 12/04/2015 12:19 PM T [facility] WBC UA Auto 0-2 0-2, 2-5 # /hpf 12/04/2015 12:19 PM CDT [facility] RBC UA Auto 2-5 0-2, 2-5 # /hpf 12/04/2015 12:19 PM T [facility] Epithelial Cell UA Auto 2-5 0-2, 2-5 # /hpf 12/04/2015 12:19 PM [facility] Bacteria UA Auto 1+(A) None seen 12/04/2015 12:19 PM T [facility] Reflex Status Culture to follow 12/04/2015 12:19 PM T [facility] Urine URINE SPECIMEN OBTAINED BY CLEAN CATCH PROCEDURE / Unknown 12/04/2015 12:04 PM CDT 12/04/2015 12:10 PM CDT Lydia Villaseñor MD LAB - URINALYSIS ORD ERABLES [facility] [address] [place] [address] * CULTURE URINE (12/04/2015 12:04 PM CDT) Only the most recent of2 resultswithin the time period is included. Culture <10,000 CFU/mL urogenital colton KERVIN 12/06/2015 7:38 AM CDT [facility] Urine URINE SPECIMEN OBTAINED BY CLEAN CATCH PROCEDURE / Unknown 12/04/2015 12:04 PM CDT 12/04/2015 12:10 PM CDT Lydia Villaseñor MD LAB - MICROBIOLOGY O RDERABLES [facility] [address] [place] [address], [facility] [phone] * XR CHEST 1VW PORTABLE (12/04/2015 12:02 [...] TCHOL/HDL (PO REF LAB) (10/15/2015 9:20 AM TOOL CRIB CLERK) Cholesterol 199 <200 mg/dL [facility] INSURANCE BILL Triglycerides 133 <150 mg/dL [facility] INSURANCE BILL HDL Cholesterol 66 >40 mg/dL [facility] INSURANCE BILL VLDL Calculated 27 <=30 mg/dL [facility] INSURANCE BILL LDL Calculated 106 <130 mg/dL [facility] INSURANCE BILL Comment:LDL/HDL RATIO BLOOD ([facility]) 1.6 <5.0 Cholesterol/HDL Ratio 3.0 <4.5 [facility] INSURANCE BILL Blood specimen (specimen) BLOOD SPECIMEN / Unknown 10/15/2015 9:20 AM TOOL CRIB CLERK 10/15/2015 3:44 PM TOOL CRIB CLERK Narrative Resulting Agency Comment [address] [phone] Avery Hidalgo DO LAB - CHEMISTRY TIFFANIE Morales Organization Address City/State/ZIP Co de Phone Number [facility] INSURANCE BILL * T4 FREE (10/15/2015 9:20 AM TOOL CRIB CLERK) Only the most recent of2 resultswithin the time period is included. T4 Free 0.86 0.65 - 1.34 ng/dL [facility] INSURANCE BILL Blood specimen (specimen) BLOOD SPECIMEN / Unknown 10/15/2015 9:20 AM TOOL CRIB CLERK 10/15/2015 3:44 PM TOOL CRIB CLERK Narrative Resulting Agency Comment [facility] [address] [place] [phone] Avery Hidalgo DO LAB - CHEMISTRY TIFFANIE WILLS [facility] INSURANCE BILL * ALBUMIN URINE TIMED (06/05/2015 10:56 AM CDT) Albumin Random Urine <5.0 Not Established mcg/mL [facility] Collection Time Timed Urine 24 Hrs [facility] Albumin 24 Hour Urine <30 mg/24 hrs [facility] Comment:Unable to calculate excretion rate because the analyte concentration is outside the instrument measuring range. Volume Timed Urine 1,550 mL [facility] Urine specimen (specimen) URINE SPECIMEN OBTAINED BY CLEAN CATCH PROCEDURE / Unknown 06/05/2015 10:56 AM CDT 06/05/2015 1:15 PM CDT Annette Singh MD LAB - URINE CHEMISTR Y ORDERABLES Performing Organization Address [facility] Co de Phone Number [address] [phone] * PROTEIN URINE TIMED QUANTITATIVE (06/05/2015 10:56 AM CDT) Protein Urine <7 Not Established mg/dL [facility] Collection Time Timed Urine 24 Hrs [facility] Protein 24 Hour Urine 77 - 197 mg/24 hrs [facility] Comment:Unable to calculate excretion rate because the analyte concentration is outside the instrument measuring range. Volume Timed Urine 1,550 mL [facility] Urine specimen (specimen) URINE SPECIMEN OBTAINED BY CLEAN CATCH PROCEDURE / Unknown 06/05/2015 10:56 AM CDT 06/05/2015 1:15 PM CDT Annette Singh MD LAB - URINE CHEMISTR Y ORDERABLES Performing Organization Address City/[facility]/ZIP Co de Phone Number [address] [place] [phone] * CREATININE BLOOD (06/05/2015 10:56 AM CDT) Creatinine 0.8 0.6 - 1.2 mg/dL [facility] eGFR >60 >60 mL/min/1.73 m2 [facility] Blood specimen (specimen) BLOOD SPECIMEN / Unknown 06/05/2015 10:56 AM CDT 06/05/2015 1:15 PM CDT Annette Singh MD LAB - CHEMISTRY ORDE RABLES [address] [phone] * CREATININE CLEARANCE URINE TIMED + BLOOD (06/05/2015 10:56 AM CDT) Only the most recent of2 resultswithin the time period is included. Creatinine Urine 59 Not Established mg/dL [facility] Creatinine 0.8 0.6 - 1.2 mg/dL [facility] Volume Timed Urine 1,550 mL [facility] Collection Time Timed Urine 24 Hrs [facility] Creatinine Clearance 79 70 - 130 mL/minute/1.73m 2 [facility] Chart BSA 1.41 Avg. BSA = 1.73 m2 m2 [facility] Creatinine Clearance (Corrected for BSA) 97 Not Established mL/minute [facility] Urine specimen (specimen) URINE SPECIMEN OBTAINED BY CLEAN CATCH PROCEDURE / Unknown 06/05/2015 10:56 AM CDT 06/05/2015 1:15 PM CDT Annette Singh MD LAB - URINE CHEMISTR Y ORDERABLES [address] [phone] * XR CHEST 2VW (06/01/2015 8:12 AM CDT) Only the most recent of4 resultswithin the time period is included. Anatomical Region Laterality Modality Chest Other Impressions 06/01/2015 12:11 PM CDT Impression: No acute pulmonary disease. Report dictated by Jovany Sears M.D. (radiology services manager). This report was approved by Jovany [...] disease. Report dictated by Jovany Sears M.D. (radiology services manager). This report was approved by Jovany Sears M.D. on 06/01/2015 11:50AM . Dr. Dr. MATTHEW Shipley MD have personally reviewed and interpreted thisexamination/study. This report was electronically signed by Dr. MATTHEW TAYLOR MD on06/01/2015 12:11 PM . Annette Singh MD DIAGNOSTIC IMAGING O RDERABLES * PTT U (06/01/2015 7:43 AM CDT) APTT 28.6 23.0 - 38.4 Seconds [facility] Comment:Suggested therapeuti c range for full dose I.V. heparin therapy for venous thromboembolism is 66.0-91.0 seconds. Blood specimen (specimen) BLOOD SPECIMEN / Unknown 06/01/2015 7:43 AM CDT 06/01/2015 8:48 AM CDT Narrative [facility] - 06/01/2015 9:11 AM CDT Is patient on Heparin, Argatroban or Dabigatran?->N Annette Singh MD LAB - COAGULATION OR DERABLES Performing Organization Address [facility] Co de Phone Number [address] [phone] * PT-INR [facility] (06/01/2015 7:43 AM CDT) Pathologist [facility] PT 14.6 12.1 - 14.8 Seconds [facility] INR 1.1 See Comment [facility] Comment: Suggested therapeutic range for low-intensity coumadin therapy for venous thromboembolism prophylaxis is an INR of 2.0-3.0. For high risk patients (Mitral Valve Prosthesis, Atrial Fibrillation, history of TIA/stroke), suggested prophylactic therapeutic range is an INR of 2.5-3.5. Blood specimen (specimen) BLOOD SPECIMEN / Unknown 06/01/2015 7:43 AM CDT 06/01/2015 8:48 AM CDT Narrative [facility] - 06/01/2015 9:10 AM CDT Is patient on Heparin, Argatroban or Dabigatran?->N Annette Singh MD LAB - COAGULATION OR DERABLES Performing Organization Address [facility] Co de Phone Number [address] [phone] * (ABNORMAL) CYTOMEGALOVIRUS AB IGG/IGM RFLXD (06/01/2015 7:43 AM CDT) Cytomegalovirus Antibody IgG 5.50(H) 0.00 - 0.59 U/mL [facility] ([employer]) Comment: Negative <0.60 Equivocal 0.60 - 0.69 Positive >0.69 Cytomegalovirus Antibody IgM <30.0 0.0 - 29.9 AU/mL [facility] ([employer]) Comment: Negative <30.0 Equivocal 30.0 - 34.9 Positive >34.9 A positive result is generally indicative of acute infection, reactivation or persistent IgM production. Blood specimen (specimen) BLOOD SPECIMEN / Unknown 06/01/2015 7:43 AM CDT 06/01/2015 8:59 AM CDT Narrative [facility] ([facility]) - 06/05/2015 3:21 PM CDT Performed at: [address] [place] [address] [id number] Signal Worker: Willi Horne MD, Phone: [phone] Annette Singh MD LAB - SEROLOGY ORDER SHARON Performing Organization Address City/[facility] Co de Phone Number [facility] ([facility]) * TREPONEMA PALLIDUM AB IGG DONOR (06/01/2015 7:43 AM CDT) Donor Treponema pallidum Antibody IgG Non Reactive Non Reactive [facility] ([facility]) Comment: Test performed with Plasticell CAPTIA Syphilis (T. pallidum)-G kit. Blood specimen (specimen) BLOOD SPECIMEN / Unknown 06/01/2015 7:43 AM CDT 06/01/2015 9:18 AM CDT Narrative [facility] ([facility]) - 06/02/2015 7:10 PM CDT Performed at: [facility] [employer] [address] [id number] Signal Worker: Andry Ty PhD, Phone: [phone] Annette Singh MD LAB - SEROLOGY ORDER SHARON Performing Organization Address City/[facility] Co de Phone Number [facility] ([facility]) * HIV-1/HCV MACIEJ DONOR (06/01/2015 7:43 AM CDT) HIV-1/HCV/HBV MACIEJ Comment Non Reactive [facility] ([facility]) Comment: Nonreactive for HIV-1 RNA Nonreactive for HCV RNA Nonreactive for HBV DNA Test performed with Modumetal Ultrio Assay kit. Blood specimen (specimen) BLOOD SPECIMEN / Unknown 06/01/2015 7:43 AM CDT 06/01/2015 8:59 AM CDT Narrative [facility] ([facility]) - 06/02/2015 7:10 PM CDT Performed at: [facility] [employer] [address] [place] [address] [id number] Signal Worker: Andry Ty PhD, Phone: [phone] Annette Singh MD LAB - CHEMISTRY TIFFANIE WILLS Performing Organization Address [facility]/ZIP Co de Phone Number [facility] ([facility]) * HIV 1/0/2 DONOR (06/01/2015 7:43 AM CDT) Donor HIV-1/O/2 Antibody Negative Negative [facility] ([facility]) Comment:Test performed with Sims Prism HIV O Plus kit. Blood specimen (specimen) BLOOD SPECIMEN / Unknown 06/01/2015 7:43 AM CDT 06/01/2015 9:18 AM CDT Narrative [facility] ([facility]) - 06/03/2015 6:16 AM CDT Performed at: [facility] [employer] [address] [place] [address] [id number] Signal Worker: Andry Ty PhD, Phone: [phone] Annette Singh MD LAB - CHEMISTRY TIFFANIE WILLS Performing Organization Address [facility] Co de Phone Number [facility] ([facility]) * HEPATITIS B SURFACE ANTIGEN RFLX DONOR (06/01/2015 7:43 AM CDT) Hepatitis B Virus Surface Antigen Negative Negative [facility] ([facility]) Comment:Test performed with Sims Prism HBsAg kit. Blood specimen (specimen) BLOOD SPECIMEN / Unknown 06/01/2015 7:43 AM CDT 06/01/2015 9:18 AM CDT Narrative [facility] ([facility]) - 06/03/2015 6:16 AM CDT Performed at: [facility] [employer] [address] [place] [address] [id number] Signal Worker: Andry Ty PhD, Phone: [phone] Annette Singh MD LAB - CHEMISTRY TIFFANIE WILLS Performing Organization Address City/[facility]/ZIP Co de Phone Number [facility] ([facility]) * (ABNORMAL) CYTOMEGALOVIRUS TOT AB RFLX IGG/IGM DONOR (06/01/2015 7:43 AM CDT) Donor Cytomegalovirus Total Antibody Reactive( A) Non Reactive [facility] ([facility]) Comment:Test performed with Immucor Capture-CMV IgG and IgM kit. Blood specimen (specimen) BLOOD SPECIMEN / Unknown 06/01/2015 7:43 AM CDT 06/01/2015 8:59 AM CDT Narrative [facility] ([facility]) - 06/05/2015 3:21 PM CDT Performed at: [facility] [employer] [address] [place] [address] [id number] Signal Worker: Andry Ty PhD, Phone: [phone] Annette Singh MD LAB - SEROLOGY ORDER SHARON Performing Organization Address City/[facility]/ZIP Co de Phone Number [facility] ([facility]) * HEPATITIS C AB W RFLX VERIFICATION (06/01/2015 7:43 AM CDT) Pathologist [facility] Hepatitis C Antibody <0.1 0.0 - 0.9 s/co ratio [facility]) 06/01/2015 7:43 AM CDT 06/01/2015 9:18 AM CDT Narrative [facility]) - 06/02/2015 6:15 AM CDT Performed at: [address] [place] [address] [id number] Signal Worker: Erasmo Morris PhD, Phone: [phone] Annette Singh MD LAB - CHEMISTRY TIFFANIE WILLS [facility] ([facility]) * QUANTIFERON TB-GOLD INC (06/01/2015 7:43 AM CDT) Pathologist [facility] QuantiFERON TB Gold Negative Negative [facility]) Comment: The specimen received for QuantiFERON testing was incubated by the ordering institution. Specific procedures outlined in our Directory of Services and in the package insert for the QuantiFERON Gold (In Tube) test must be followed to enable for proper stimulation of cells for the production of interferon gamma. QuantiFERON Criteria Comment [facility] ([facility]) Comment: To be considered [...] values. QuantiFERON TB Antigen Value 0.13 IU/mL [facility] (BEAKER) QuantiFERON Nil Value 0.16 IU/mL [facility] (BEAKER) QuantiFERON Mitogen Value >10.00 IU/mL [facility] ([employer]) QFT TB Ag minus Nil Value <0.00 IU/mL [facility] (BEAKER) Interpretation Comment [facility] ([facility]) Comment: The QuantiFERON TB Gold (in Tube) [...] AM CDT 06/01/2015 8:47 AM CDT Narrative [facility] ([place]) - 06/04/2015 6:14 AM CDT Performed at: - [address] [id number] Signal Worker: rEasmo Morris PhD, Phone: [phone] Annette Singh MD LAB - SEROLOGY ORDER SHARON [facility]) * (ABNORMAL) URINALYSIS W/MICROSCOPIC NO CULTURE (06/01/2015 7:43 AM CDT) Color UA Yellow Straw, Yellow, Colorless, Light Yellow [facility] Clarity UA Clear Clear [facility] Specific Parker UA 1.012 1.001 - 1.030 [facility] pH UA 5.0 5.0 - 8.0 [facility] Protein UA Negative <=20 mg/dL [facility] Glucose UA 300(A) Negative mg/dL [facility] Ketone UA Negative Negative mg/dL [facility] Bilirubin UA Negative Negative mg/dL [facility] Blood UA Negative Negative [facility] Nitrite UA Negative Negative [facility] Leukocyte Esterase Moderate(A) Negative [facility] Urobilinogen UA <2.0 <2.0 mg/dL [facility] RBC UA 1 0 - 8 /HPF [facility] WBC UA 6(H) 0 - 2 /HPF [facility] Bacteria UA Occasional Rare, Occasional, None /HPF [facility] Squamous Epithelial Cells UA 1 0 - 1 /HPF [facility] Mucus UA Many(A) None /LPF [facility] Urine specimen (specimen) URINE SPECIMEN OBTAINED BY CLEAN CATCH PROCEDURE / Unknown 06/01/2015 7:43 AM CDT 06/01/2015 8:47 AM CDT Annette Singh MD LAB - URINALYSIS ORD ERABLES [address] [phone] * REF LAB COMMENT (06/01/2015 7:43 AM CDT) Comment Comment [facility] ([place]) Comment: Non reactive HCV antibody screen is consistent with no HCV infection, unless recent infection is suspected or other evidence exists to indicate HCV infection. Blood specimen (specimen) 06/01/2015 7:43 AM CDT 06/01/2015 9:18 AM CDT Narrative [facility] ([place]) - 06/02/2015 6:15 AM CDT Performed at: [address] [place] [address] [id number] Signal Worker: Erasmo Morris PhD, Phone: [phone] Annette Singh MD LAB - CHEMISTRY TIFFANIE WILLS [facility]) * HEPATITIS B SURFACE ANTIBODY QUANT (06/01/2015 7:43 AM CDT) Pathologist [facility] Hepatitis B Virus Surface Antibody Quantitative 112.6 Immunity>9 .9 mIU/mL [facility] ([facility]) Comment: Status of Immunity Anti-HBs Level Inconsistent with Immunity 0.0 - 9.9 Consistent with Immunity >9.9 Blood specimen (specimen) BLOOD SPECIMEN / Unknown 06/01/2015 7:43 AM CDT 06/01/2015 9:18 AM CDT Narrative [facility]) - 06/02/2015 6:15 AM CDT Performed at: [address] [place] [address] [id number] Signal Worker: Erasmo Morris PhD, Phone: [phone] Annette Singh MD LAB - SEROLOGY ORDER SHARON Performing Organization Address City/[facility] Co de Phone Number [facility]) * DRUG ABUSE PANEL 10-20+ETHANOL URINE NO CONFIRM (06/01/2015 7:43 AM CDT) Pathologist [facility] Amphetamines Screen Urine Negative Negative: < 1000 ng/mL [facility] Barbiturates Screen Urine Negative Negative: < 200 ng/mL [facility] Benzodiazepine Screen Urine Negative Negative: < 200 ng/mL [facility] Opiates Urine Negative Negative: < 300 ng/mL [facility] Cocaine Metabolites Urine Negative Negative: < 300 ng/mL [facility] Phencyclidine Screen Urine Negative Negative: < 25 ng/ml [facility] Cannabinoids Screen Urine Negative Negative: <50 ng/mL [facility] Methadone Screen Urine Negative Negative: < 300 ng/mL [facility] Urine specimen (specimen) URINE / Unknown 06/01/2015 7:43 AM CDT 06/01/2015 8:46 AM CDT Narrative [facility] - 06/01/2015 9:05 AM CDT The Urine Toxicology Screening Panel does not screen for Propoxyphene, Meprobamate, Carisoprodol, Trazodone, ynec-zbh-esvnjeb medications and/or volatiles (Acetone, Isopropanol, Methanol or Ethylene Glycol). Ethanol, Salicylate, Acetaminophen, Tricyclic Antidepressants and several therapeutic drugs may be individually assayed in serum or plasma specimen. Toxicology testing by the [facility] is an aid to medical diagnosis and treatment of patients. No documented chain of custody was maintained. Results are intended to be used for clinical purposes only. Annette Singh MD LAB - URINE CHEMISTR Y ORDERABLES Performing Organization Address City/[facility]/ZIP Co de Phone Number [address] [phone] * URIC ACID BLOOD (06/01/2015 7:43 AM CDT) Uric Acid 5.0 2.6 - 7.2 mg/dL [facility] Blood specimen (specimen) BLOOD SPECIMEN / Unknown 06/01/2015 7:43 AM CDT 06/01/2015 8:48 AM CDT Annette Singh MD LAB - CHEMISTRY ORDE RABLES Performing Organization Address City/[facility]/ZIP Co de Phone Number [address] [phone] * WEST NILE VIRUS ANTIBODY IGG/IGM PANEL (06/01/2015 7:43 AM CDT) West Nile Virus AB IGG Negative Negative [facility] ([employer]) Comment: No detectable West Nile Virus IgG Antibody. If a recent infection is suspected, another specimen should be submitted for testing within 7-14 days. West Nile Virus AB IGM Negative Negative [facility] ([employer]) Comment: No detectable West Nile Virus IgM Antibody. If a recent infection is suspected, another specimen should be submitted for testing within 7-14 days. Blood specimen (specimen) BLOOD SPECIMEN / Unknown 06/01/2015 7:43 AM CDT 06/01/2015 9:18 AM CDT Narrative [facility] ([facility]) - 06/03/2015 3:19 PM CDT Performed at: [address] [place] [address] [id number] Signal Worker: Willi Horne MD, Phone: [phone] Annette Singh MD LAB - CHEMISTRY ORDE JOHANN Performing Organization Address City/[facility]/ZIP Co de Phone Number [facility] ([facility]) * STRONGYLOIDES ANTIBODY IGG (06/01/2015 7:43 AM CDT) Strongyloides Antibody IgG 0.01 <=1.49 IV [facility] ([facility]) Comment: INTERPRETIVE INFORMATION: Strongyloides Ab, IgG by [...] infection. Test developed and characteristics determined by [employer]. See Compliance Statement D: [email or web address] Blood specimen (specimen) BLOOD SPECIMEN / Unknown 06/01/2015 7:43 AM CDT 06/01/2015 9:18 AM CDT Annette Singh MD LAB - SEROLOGY ORDER SHARON Performing Organization Address City/[facility]/ZIP Co de Phone Number [facility] ([facility]) * EDWIN-MONTOYA VIRUS ANTIBODY TO VCA IGM (06/01/2015 7:43 AM CDT) Edwin-Montoya VCA Antibody IgM <10.0 0.0 - 43.9 U/mL [facility] ([facility]) Comment: INTERPRETIVE INFORMATION: Edwin-Montoya Virus Antibody to Viral Capsid Antigen, IgM 35.9 U/mL or less.......Not Detected 36.0-43.9 U/mL..........Indeterminate - Repeat testing in 10-14 days may be helpful. 44.0 U/mL or greater....Detected Interpretive information regarding serologic features of EBV-associated diseases is available at [email or web address]. Blood specimen (specimen) BLOOD SPECIMEN / Unknown 06/01/2015 7:43 AM CDT 06/01/2015 9:18 AM CDT Annette Singh MD LAB - SEROLOGY ORDER SHARON [facility] ([facility]) * RPR (06/01/2015 7:43 AM CDT) RPR Non-reacti ve Non-reacti ve [facility] Blood specimen (specimen) BLOOD SPECIMEN / Unknown 06/01/2015 7:43 AM CDT 06/01/2015 8:50 AM CDT Annette Singh MD LAB - CHEMISTRY ORDE RABLES Performing Organization Address [facility] Co de Phone Number [address] [phone] * (ABNORMAL) EDWIN-MONOTYA VIRUS ANTIBODY TO VCA IGG (06/01/2015 7:43 AM CDT) Edwin-Montoya Virus Antibody To Viral Capsid Antigen IgG 114.0(H) 0.0 - 21.9 U/mL [facility] ([place]) Comment: INTERPRETIVE INFORMATION: Edwin-Montoya Virus Antibody to Viral Capsid Antigen, IgG 17.9 U/mL or less.......Not Detected 18.0-21.9 U/mL..........Indeterminate - Repeat testing in 10-14 days may be helpful. 22.0 U/mL or greater....Detected Interpretive information regarding serologic features of EBV-associated diseases is available at [email or web address]. Blood specimen (specimen) BLOOD SPECIMEN / Unknown 06/01/2015 7:43 AM CDT 06/01/2015 9:18 AM CDT Annette Singh MD LAB - CHEMISTRY TIFFANIE WILLS [facility] ([facility]) * NICOTINE + METABOLITES BLOOD (06/01/2015 7:43 AM CDT) Nicotine None Detected ng/mL [facility] ([facility]) Comment: Nicotine levels greater than 2.0 are consistent with the use of tobacco or tobacco cessation products. Cotinine None Detected ng/mL [facility] ([facility]) Comment: Cotinine levels greater than 20.0 are consistent with the use of tobacco or tobacco cessation products. Blood specimen (specimen) BLOOD SPECIMEN / Unknown 06/01/2015 7:43 AM CDT 06/01/2015 8:48 AM CDT Narrative [facility] ([facility]) - 06/07/2015 7:06 PM CDT Performed at: [address] [place] [address] [id number] Signal Worker: Willi Horne MD, Phone: [phone] Annette Singh MD LAB - CHEMISTRY TIFFANIE WILLS [facility]) * PHOSPHORUS BLOOD (06/01/2015 7:43 AM CDT) [facility] Phosphorus 2.4 2.3 - 4.7 mg/dL [facility] Blood specimen (specimen) BLOOD SPECIMEN / Unknown 06/01/2015 7:43 AM CDT 06/01/2015 8:48 AM CDT Annette Singh MD LAB - CHEMISTRY TIFFANIE WILLS [address] [phone] * HEPATITIS B CORE ANTIBODY (06/01/2015 7:43 AM CDT) [facility] HBc Antibody Total Non-reacti ve Non-reacti ve [facility] Blood specimen (specimen) BLOOD SPECIMEN / Unknown 06/01/2015 7:43 AM CDT 06/01/2015 8:50 AM CDT Annette Singh MD LAB - CHEMISTRY TIFFANIE WILLS Performing Organization Address [facility] Co de Phone Number [address] [phone] * ALCOHOL ETHYL BLOOD (06/01/2015 7:43 AM CDT) Pathologist [facility] Interpretation Ethanol None Detected None Detected mg/dL [facility] Comment:Ethanol levels less than 10 mg/dL are resulted as None detected . Blood specimen (specimen) BLOOD SPECIMEN / Unknown 06/01/2015 7:43 AM CDT 06/01/2015 8:48 AM CDT Annette Singh MD LAB - CHEMISTRY TIFFANIE WILLS Performing Organization Address [facility] de Phone Number [address] [phone] * (ABNORMAL) HEPATITIS A ANTIBODY (06/01/2015 7:43 AM CDT) Pathologist [facility] Hepatitis A Virus Antibody Total Positive(A ) Negative [facility] ([facility]) Blood specimen (specimen) 06/01/2015 7:43 AM CDT 06/01/2015 9:18 AM CDT Narrative [facility] ([facility]) - 06/02/2015 6:15 AM CDT Performed at: [facility] [id number] Signal Worker: Erasmo Morris PhD, Phone: [phone] Annette Singh MD LAB - CHEMISTRY TIFFANIE WILLS Performing Organization Address [facility] Co de Phone Number [facility]) * HLA TYPING SEROLOGIC DR,DQ (05/18/2015 8:49 AM CDT) Pathologist [facility] DR1 [address] [facility] ([facility]) DR2 11 [facility] ([facility]) DRW-1 52 [facility] ([facility]) DRW-2 - [facility] ([facility]) DQ 1 5 [facility] ([facility]) DQ 2 7 [facility] ([facility]) DRDQ Test Date 05/28/20 15 [facility] ([facility]) Comment: This test was developed and its performance characteristics determined bythe [facility]. It has not been cleared or approved by the.. Food and Drug Administration. The FDA has determined that suchclearance or approval is not necessary. This test is used for clinicalpurposes. It should not be regarded as investigational or for research.This laboratory is certified under the Clinical Laboratory ImprovementAmendments of 1988 (CLIA-88) as qualified to perform high complexityclinical laboratory testing.Performed at: [facility], [address] @ [place] [id number] Director: Douglas Pham MD, Blood specimen (specimen) BLOOD SPECIMEN / Unknown 05/18/2015 8:49 AM CDT 05/18/2015 9:09 AM CDT Annette Singh MD LAB - BLOOD BANK ORD ERABLES [facility] ([facility]) * HLA TYPING A,B,C MULTIPLE ANTIGEN (05/18/2015 8:49 AM CDT) ABC Serotype A1 1 [facility] ([facility]) ABC Serotype A2 2 [facility] ([facility]) ABC Serotype B1 8 [facility] ([facility]) ABC Serotype B2 51 [facility] ([facility]) ABC Serotype BW1 6 [facility] ([facility]) ABC Serotype BW2 4 [facility] ([facility]) ABC Serotype Cw-1 2 [facility] ([facility]) ABC Serotype Cw-2 5 [facility] ([facility]) ABC Serotype Test Date 05/28/20 15 [facility] ([facility]) Comment: This test was developed and its performance characteristics determined bythe [facility]. It has not been cleared or approved by the.. Food and Drug Administration. The FDA has determined that suchclearance or approval is not necessary. This test is used for clinicalpurposes. It should not be regarded as investigational or for research.This laboratory is certified under the Clinical Laboratory ImprovementAmendments of 1988 (CLIA-88) as qualified to perform high complexityclinical laboratory testing.Performed at: [facility], [address] [place] [address]Lab Director: Douglas Pham MD, Blood specimen (specimen) BLOOD SPECIMEN / Unknown 05/18/2015 8:49 AM CDT 05/18/2015 9:09 AM CDT Annette Singh MD LAB - BLOOD BANK ORD ERABLES [facility] (BE[facility]ER) * TYPE + SCREEN PANEL (05/18/2015 8:49 AM CDT) Only the most recent of2 resultswithin the time period is included. Typem O POS [facility] Antibody Screen NEG [facility] Blood specimen (specimen) 05/18/2015 8:49 AM CDT 05/18/2015 9:12 AM CDT Annette Singh MD LAB - BLOOD BANK ORD ERABLES [facility] [address] * (ABNORMAL) URINALYSIS ROUTINE AUTO (01/01/2015 2:10 AM CDT) Only the most recent of2 resultswithin the time period is included. Color UA Yellow Straw, Yellow, Dark Yellow 01/01/2015 2:24 AM CDT [facility] Clarity UA Clear 01/01/2015 2:24 AM CDT [facility] Specific Parker UA 1.021 1.005 - 1.030 01/01/2015 2:24 AM CDT [facility] pH UA 5.5 5.0 - 8.0 pH 01/01/2015 2:24 AM CDT [facility] Protein UA Negative Negative 01/01/2015 2:24 AM CDT [facility] Blood UA Negative Negative 01/01/2015 2:24 AM T [facility] Leukocyte UA 2+(A) Negative 01/01/2015 2:24 AM CDT [facility] Nitrite UA Negative Negative 01/01/2015 2:24 AM [facility] Glucose UA Negative Negative 01/01/2015 2:24 AM [facility] Ketone UA 1+(A) Negative 01/01/2015 2:24 AM T [facility] Bilirubin UA Negative Negative 01/01/2015 2:24 AM [facility] Urobilinogen UA 0.2 0.1 - 1.0 EU/dL 01/01/2015 2:24 AM [facility] WBC UA Auto 20-50(A) 0-2, 2-5 # /hpf 01/01/2015 2:24 AM [facility] RBC UA Auto 2-5 0-2, 2-5 # /hpf 01/01/2015 2:24 AM [facility] Epithelial Cell UA Auto 2-5 0-2, 2-5 # /hpf 01/01/2015 2:24 AM [facility] Bacteria UA Auto 1+(A) None seen 01/01/2015 2:24 AM [facility] Hyaline Casts UA Auto 2-5(A) 0 - 2 #/lpf 01/01/2015 2:24 AM [facility] Urine Microscopy Urine microscopy not indicated 01/01/2015 2:24 AM [facility] Urine URINE SPECIMEN OBTAINED BY CLEAN CATCH PROCEDURE / Unknown 01/01/2015 2:10 AM CDT 01/01/2015 2:15 AM T Jayne Chen MD LAB - URINALYSIS ORD ERABLES [facility] [address] [id number] * LIPASE BLOOD (01/01/2015 1:04 AM CDT) Only the most recent of3 resultswithin the time period is included. Lipase 141 73 - 393 U/L 01/01/2015 1:31 AM [facility] Blood BLOOD SPECIMEN / Unknown 01/01/2015 1:04 AM CDT 01/01/2015 1:13 AM CDT Jayne Chen MD LAB - CHEMISTRY TIFFANIE WILLS [facility] [address] [id number] * (ABNORMAL) CULTURE STREP GROUP A (10/14/2014 3:51 PM TOOL CRIB CLERK) Pathologist [facility] Beta-Strep Culture, Group A Only (A) [facility] [...] OF NECK) / Unknown 10/14/2014 3:51 PM TOOL CRIB CLERK 10/14/2014 9:09 PM TOOL CRIB CLERK Narrative Resulting Agency Comment [facility] [address] [phone] Jeremie Kolb MD LAB - MICROBIOLOGY O RDERABLES [facility] ACCOUNT BILL * STREP A SCREEN - POINT OF CARE (AMB) (10/14/2014 3:50 PM TOOL CRIB CLERK) Pathologist [facility] Strep A Rapid POCT Negative Negative Strep A Internal Control NEGATIVE - POSITIVE Throat swab (specimen) NASOPHARYNGEAL SWAB / Unknown 10/14/2014 3:50 PM TOOL CRIB CLERK Jeremie Kolb MD LAB - POINT OF CARE ORDERABLES * HCG URINE QUALITATIVE - POCT (IP) URGENT CARE (11/08/2013 4:48 PM CDT) Pathologist [facility] HCG Qual Urine Negative Negative [facility] POCT TESTING QC Verified Yes Yes [facility] POC T TESTING Urine specimen (specimen) URINE / Unknown 11/08/2013 4:48 PM CDT Tana Sosa SPECIAL OFFICER AUTOMAT-FISH STRINGER ASSEMBLER LAB - POI OF CARE ORDERABLES [facility] POCT TESTING [address] [place] [address] * CARDIAC RHYTHM STRIP ORDER (04/20/2013 9:29 [...] [RBOYER] on 04/25/2013 at 9:06 AM (File: [id number]) Reason: linked to wrong order Procedure Note [...] Negative Negative, Uninterpretable 3 5:34 PM CDT [facility] C difficile Toxin A + B Negative Negative, Uninterpretable 3 5:34 PM CDT [facility] Interpretation C difficile Negative for toxigenic C. difficile Negative for toxigenic C. difficile 3 5:34 PM CDT [facility] Stool STOOL SPECIMEN / Unknown Collection / Unknown 04/19/2013 10:59 AM CDT 04/19/2013 12:42 PM CDT Josiah Breen MD LAB - MICROBIOLOGY O MEMO Performing Organization Address City/[facility]/ZIP Co de Phone Number [facility] [address] [place] [address] * CULTURE STOOL+SHIGA-LIKE TOXIN (04/19/2013 10:59 AM CDT) Culture No growth Salmonella, Shigella, Campylobacter , E. coli 0157:h7 or Yersinia 04/21/2013 8:30 AM CDT [facility] Culture Shiga Toxin Negative 04/21/2013 8:30 AM CDT [facility] Stool STOOL SPECIMEN / Unknown Collection / Unknown 04/19/2013 10:59 AM CDT 04/19/2013 12:42 PM CDT Josiah Breen MD LAB - MICROBIOLOGY O MEMO Performing Organization Address City/[facility]/ZIP Co de Phone Number [facility] [address] [place] [address] * GIARDIA CRYPTOSPORIDIUM ANTIGEN PANEL (04/19/2013 10:59 AM CDT) Giardia Antigen DFA Negative Negative 04/22/2013 2:06 PM CDT [facility] Cryptosporidium Antigen DFA Negative Negative 04/22/2013 2:06 PM CDT [facility] Stool STOOL SPECIMEN / Unknown Collection / Unknown 04/19/2013 10:59 AM CDT 04/19/2013 12:42 PM CDT Narrative [facility] - 04/22/2013 2:06 PM CDT A single O and P exam may be insufficient to diagnose an intestinal parasite infection. Additional specimens are recommended if patient remains symptomatic. CAUTION: Cyclospora will not be detected by routine Ova and Parasite testing. A separate lab order, Parasitology stain by Modified Acid Fast, must be placed specifically for Cyclospora which will be sent to [facility]. Specimen must be collected in 10% formalin. CAUTION: Cyclospora will not be detected by routine Ova and Parasite testing. A separate lab order, Parasitology Stain by Modified Acid Fast, must be placed specifically for Cyclospora which will be sent to [facility]. Specimen must be collected in 10% formalin. Josiah Breen MD LAB - MICROBIOLOGY O RDERABLES [facility] [address] [facility] [place] [address], [facility] * EGD (04/19/2013 [...] Estimated Blood Loss: Estimated blood loss: none. [facility] 04/19/2013 10:4 0 AM CDT Narrative [facility] - 04/19/2013 11:06 AM CDT Procedure Note Josiah Breen MD - 04/19/2013 11:06 AM CDT Josiah Breen MD GI PROCEDURE ORDERAB LES [facility] * ENDOSCOPY, COLON, SCREENING (04/19/2013 [...] diet. - Return to my office. Josiah Breen MD 04/19/2013 11:07 AM This report has been signed electronically. Number of Addenda: 0 Note Initiated On: 04/19/2013 10:40 AM Estimated Blood Loss: Estimated blood loss: none. [facility] 04/19/2013 10:4 0 AM CDT Narrative [facility] - 04/19/2013 11:09 AM CDT Procedure Note Josiah Breen MD - 04/19/2013 11:09 AM CDT Josiah Breen MD GI PROCEDURE ORDERAB LES [facility] * FOLATE RBC (04/03/2013 9:58 AM CDT) Folate Hemolysate 372.0 Not Estab. ng/mL [facility] ACCOUNT BILL Hematocrit 41.9 34.0 - 46.6 % [facility] ACCOUNT BILL Folate RBC 888 499 - 1,504 ng/mL [facility] ACCOUNT BILL Blood specimen (specimen) BLOOD SPECIMEN WITH EDTA / Unknown 04/03/2013 9:58 AM CDT 04/03/2013 1:06 PM CDT Narrative Resulting Agency Comment [facility] [address] [phone] Josiah Breen MD LAB - CHEMISTRY TIFFANIE WILLS Performing Organization Address City/[facility]/ZIP Co de Phone Number [facility] [...] 1:06 PM CDT Narrative Resulting Agency Comment [address] [phone] Josiah Breen MD LAB - SEROLOGY ORDER SHARON Performing Organization Address [facility] Co de Phone Number [facility] ACCOUNT BILL * VITAMIN B12 (04/03/2013 9:54 AM CDT) Vitamin B12 304 211 - 946 pg/mL [facility] ACCOUNT BILL Blood specimen (specimen) BLOOD SPECIMEN / Unknown 04/03/2013 9:54 AM CDT 04/03/2013 1:06 PM CDT Narrative Resulting Agency Comment [address] [phone] Josiah Breen MD LAB - CHEMISTRY TIFFANIE WILLS Performing Organization Address City/[facility] Co de Phone Number [facility] ACCOUNT BILL * IGA BLOOD (04/03/2013 9:54 AM CDT) IgA Quantitative 210 91 - 414 mg/dL [facility] ACCOUNT BILL Blood specimen (specimen) BLOOD SPECIMEN / Unknown 04/03/2013 9:54 AM CDT 04/03/2013 1:06 PM CDT Narrative Resulting Agency Comment [address] [phone] Josiah Breen MD LAB - CHEMISTRY TIFFANIE WILLS [facility] Organization Address City/State/ZIP Co de Phone [...] <0.015 <0.100 ng/mL 03/02/2013 9:11 PM CDT [facility] CK 93 35 - 232 U/L 03/02/2013 9:11 PM CDT [facility] CK-MB 0.8 0.0 - 5.0 ng/mL 03/02/2013 9:11 PM CDT [facility] CK Index % 0.9(L) 4.0 - 25.0 % 03/02/2013 9:11 PM CDT [facility] Blood specimen (specimen) BLOOD SPECIMEN / Unknown 03/02/2013 8:08 PM CDT 03/02/2013 8:55 PM CDT Yaniv Tamayo DO LAB - CHEMISTRY TIFFANIE WILLS [facility] [address] [place] [address] * AMYLASE BLOOD (03/02/2013 8:08 PM CDT) Only the most recent of2 resultswithin the time period is included. Amylase 44 15 - 115 U/L 03/02/2013 9:32 PM CDT [facility] Blood specimen (specimen) BLOOD SPECIMEN / Unknown 03/02/2013 8:08 PM CDT 03/02/2013 8:55 PM CDT Yaniv Tamayo DO LAB - CHEMISTRY TIFFANIE WILLS Performing Organization Address [facility] Co de Phone Number [facility] [place] [address] * MAMMO SCREENING DIGITAL IMAGE BILAT (08/23/2011 7:59 AM TOOL CRIB CLERK) Anatomical Region Laterality Modality Breast Bilateral Mammography 08/23/2011 12:0 7 PM TOOL CRIB CLERK Narrative 08/23/2011 12:27 PM TOOL CRIB CLERK DIGITAL BILATERAL SCREENING MAMMOGRAMS WITH CAD [...] if suspicious findings are present clinically. [facility] [employer] [facility] Procedure Note [...] if suspicious findings are present clinically. [facility] [employer] [facility] Daja Orr MD MAMMO ORDERABLES * US ABDOMEN COMPLETE (08/02/2011 2:45 PM TOOL CRIB CLERK) Anatomical Region Laterality Modality Abdomen Ultrasound 08/02/2011 2:53 PM TOOL CRIB CLERK Impressions 08/02/2011 2:58 PM TOOL CRIB CLERK Unremarkable abdominal ultrasound. Narrative 08/02/2011 2:58 PM TOOL CRIB CLERK ULTRASOUND ABDOMEN COMPLETE INDICATION: Abdominal pain. [...] unremarkable. IMPRESSION Unremarkable abdominal ultrasound. Cherelle Mason APRN-[facility] US ORDERABLES * CULTURE URINE COMPREHENSIVE (PO REF LAB) (08/02/2011 1:56 PM TOOL CRIB CLERK) Urine Culture Comprehensive Final report [facility] ACCOUNT BILL Result 1 [facility] ACCOUNT BILL Comment:No growth in 36 - 48 hours. URINE / Unknown 08/02/2011 1 :56 PM TOOL CRIB CLERK 08/02/2011 3:56 PM TOOL CRIB CLERK Narrative Resulting Agency Comment [facility] [address] [phone] Cherelle Mason [facility] LAB - MICROBIOL OGY ORDERABLES [facility] ACCOUNT BILL * HELICOBACTER PYLORI ANTIBODIES (IGG,IGA,IGM) (PO REF LAB) (08/02/2011 1:56 PM TOOL CRIB CLERK) Helicobacter pylori Antibody IgG <0.9 0.0 [...] BLOOD SPECIMEN / Unknown 08/02/2011 1:56 PM TOOL CRIB CLERK 08/02/2011 3:56 PM TOOL CRIB CLERK Narrative Resulting Agency Comment [facility] [address] [phone] Cherelle Mason SPECIAL OFFICER AUTOMAT-FISH STRINGER ASSEMBLER LAB - SEROLOGY ORDERABLES Performing Organization Address City/[facility] Co de Phone Number [facility] ACCOUNT BILL * URINALYSIS MICROSCOPIC ONLY (08/02/2011 1:56 PM TOOL CRIB CLERK) WBC UA 0-5 0 - 5 [...] (specimen) URINE / Unknown 08/02/2011 1:56 PM TOOL CRIB CLERK 08/02/2011 3:56 PM TOOL CRIB CLERK Narrative Resulting Agency Comment [facility] [place] [address] [facility] [phone] Cherelle Mason KIMBERLY-FISH STRINGER ASSEMBLER LAB - URINALYSI S ORDERABLES [facility] ACCOUNT BILL * IMAGING/RADIOLOGY/XRAY RESULTS ORDER (04/08/2011 2:10 PM CDT) Anatomical Region Laterality Modality Other Narrative Transcriptions Document, Scanned - 04/08/2011 2:10 PM CDT Scanned Document IMAGING * (ABNORMAL) HGB HCT PANEL (2011 5:47 AM CDT) Hemoglobin 9.9(DL) 12.0 - 16.0 gm/dl [facility] Hematocrit 29.9(DL) 36 - 47 % [facility] BLOOD SPECIMEN / Unknown 2011 5:47 AM CDT 2011 5:58 AM CDT Narrative [facility] - 2011 6:15 AM CDT Obtain 12-24 hours after delivery. Jose Alberto Massey MD LAB - HEMATOLOGY ORD ERABLES [facility] [address] [address] * XR ABDOMEN 1 VW (04/03/2011 2:30 AM CDT) Anatomical Region Laterality Modality Abdomen Radiographic Tracy ging 04/03/2011 8:13 AM CDT Narrative 04/03/2011 9:40 AM CDT [facility] INDICATION: Emergency . Check for instrumentation. COMPARISON: None FINDINGS: There is no evidence of radiopaque foreign body. Osseous structures are unremarkable. No significant bowel dilatation. Procedure Note aJtinder Roche MD - 04/03/2011 [facility] INDICATION: [...] are no lesions or masses grossly identified. Insulation Sprayer sections are submitted as follows A1 - [...] cord Dictated by Pedro Carbajal M.D. CPT [id number] International Travel Consultant NAZARIO LOCKETT Electronically Signed By PEDRO CARBAJAL MISCELLANEOUS SAMPLES / Unknown 04/03/2011 1:49 AM CDT 2011 8:55 AM CDT Historical Provider LAB - PATHOLOGY/C YTOLOGY ORDERABLES * SONOGRAM - COMPLETE (12/22/2010 2:43 PM CDT) Anatomical Region Laterality Modality Other 12/22/2010 2:43 PM CDT Narrative 12/23/2010 5:23 AM CDT [facility] FAX: Pat. Name: ÁNGELA IBRAHIM Pat. No: [id number] Study Date: 12/22/2010 2:43pm , Age: 08 1985, 25 Pregnancies: 1, Para 0000 LMP: 08/06/2010 GA by LMP: 19.7 weeks GA by US: 17.7 weeks GA Selected: 17.6 weeks (From Known E) CHARLI: 05/28/2011 Referring MD: JOSE ALBERTO MASSEY MD Structural Engineering Project Manager: Mi Vernon RDMS Hist/Ind: Anatomy Screen MEASUREMENTS [...] Signature> 12/23/2010 05:23am Jose Alberto Massey MD [facility] ORDERABLES * GLUCOSE (07/23/2010 11:21 AM TOOL CRIB CLERK) Glucose 85 65 - 105 mg/dl [facility] BLOOD SPECIMEN / Unknown 07/23/2010 11:21 AM TOOL CRIB CLERK 07/23/2010 11:21 AM TOOL CRIB CLERK Willi Huff Jr., MD LAB - CHEMISTRY ORDERABLES Performing Organization Address [facility] de Phone Number [facility] [address] [place] [address] * IRON + TRANSFERRIN PANEL (07/23/2010 11:21 AM TOOL CRIB CLERK) Iron 139.4 50 - 170 ug/dl [facility] Transferrin 256.7 250 - 380 mg/dl [facility] TIBC Calculated 321 250 - 450 ug/dl [facility] Iron Saturation % 43 20 - 55 % [facility] BLOOD SPECIMEN / Unknown 07/23/2010 11:21 AM TOOL CRIB CLERK 07/23/2010 11:21 AM TOOL CRIB CLERK Willi Huff Jr., MD LAB - CHEMISTRY ORDERABLES Performing Organization Address [facility] de Phone Number [facility] [address] [place] [address] * HCG BLOOD QUALITATIVE (07/23/2010 11:21 AM TOOL CRIB CLERK) HCG Qual Serum Negative SEE BELOW [facility] Comment: Normal, Negative Pos, Sensitivity 25 MIU/ML BLOOD SPECIMEN / Unknown 07/23/2010 11:21 AM TOOL CRIB CLERK 07/23/2010 11:21 AM TOOL CRIB CLERK Willi Huff Jr., MD LAB - CHEMISTRY ORDERABLES [facility] [address] [place] [address] * XR CONSULTATION (12/23/2009 8:00 AM CDT) [...] JUAN BRENNAN Released Date Time- 12/23/09 1612 International Travel Consultant- DTC ADM- COVERT,ROBIN Rahman ATT- COVERT,ROBIN Rahman [...] Awais BRENNAN Released Date Time- 12/23/09 1612 International Travel Consultant- DTC ADM- COVERT,ROBIN Rahman ATT- COVERTROBIN REF- CON- PCP- SCP- Robin Su MD DIAGNOSTIC IMAGING O RDERABLES * CULTURE FUNGUS OTHER+FUNGUS SMEAR (04/07/2009 2:00 PM CDT) Smear SEE NOTE [facility] ([facility]) Comment: CULTURE, FUNGUS W/SMEAR NOT HAIR, SKIN, BLOOD MICRO NUMBER: [id number] TEST STATUS: FINAL SPECIMEN SOURCE: VAGINAL/ANORECTAL SPECIMEN COMMENTS: ADEQUATE SMEAR: NO FUNGAL ELEMENTS SEEN. RESULT: NO FUNGAL GROWTH AT 4 WEEKS REPORT COMMENT: PREFERRED LAB:->[facility] Test Performed at: Done. [address] [address] VONNIE RIGGS MD 04/07/2009 2:00 PM CDT 04/07/2009 9:57 PM CDT Renuka Bear APRN-FISH STRINGER ASSEMBLER LAB - MICRO BIOLOGY ORDERABLES Performing Organization Address City/[facility]/ZIP Co de Phone Number [facility]) * PH FLUID - POCT (AMB) [facility] (08/14/1998 12:00 AM TOOL CRIB CLERK) pH Vaginal 4.0 [facility] Vaginal swab (specimen) 08/14/1998 Renuka Bear APRN-FISH STRINGER ASSEMBLER LAB - POINT OF CARE ORDERABLES [facility] * WET PREP - POINT OF CARE (AMB) [facility] (08/14/1998 12:00 AM TOOL CRIB CLERK) pH Wet Prep 4.0 [facility] Yeast Wet Prep neg [facility] Trichomonas Wet Prep neg [facility] Bacteria Wet Prep neg [facility] Whiff Test neg [facility] Vaginal swab (specimen) 08/14/1998 Renuka Bear SPECIAL OFFICER AUTOMAT-FISH STRINGER ASSEMBLER LAB - POINT OF CARE ORDERABLES [facility] Care Teams Stone Layout Marker Relationship Specialty Start Date End Date Jose Alberto Braxton MD [address] [facility] [address] [place] [address] PCP - General Family Medicine 07/07/21
--- OUTSIDE RECORDS SUMMARY | 2024-10-06 20:45 | XMS_ITS | Clinical Summary ---
Author Organization [facility] [employer] Address [address] [place] [address] Care Team Providers Care Freight Sorter Name Role Phone Azar Braxton MD Primary Care Provider [phone] Source Comments [facility] [employer],non-owned Affiliates and Associated Physician Practices is amultiple site organization consisting of ambulatory clinics and hospital sitesin [place], [place], [place] and [place]. This disclosure is being madepursuant to the Care Everywhere program and may not contain all information available regarding this patient. Last updated 18.[facility] [employer] Allergies Active Allergy Reactions Criticality Noted Date [...] 08/26/201507/07 Immunizations Name Administration Dates Next Due Ebook Glue primary monoval ent 12+ yr 0.3mL Purple [...] file Gender Identity Female 08/19/2022 7:56 AM HEDDLER Sexual Orientation Not on file Last Filed Vital Signs Vital Sign Reading Time Taken Comments Blood Pressure 110/78 03/17/2023 1:17 PM CDT Pulse 88 03/17/2023 1:17 PM CDT Temperature 36.9 C (98.5 F) 03/17/2023 1:17 PM CDT Respiratory Rate 20 08/19/2022 2:34 PM HEDDLER Oxygen Saturation 99% 03/17/2023 1:17 PM CDT [...] Comments LIPID PROFILE Routine 07/07/2021 11:19 AM HEDDLER Routine physical examination HIV-1 HIV-2 ANTIBODY + HIV P24 AG PANEL Routine 07/07/2021 11:19 AM HEDDLER Routine physical examination HEPATITIS C AB W RFLX VERIFICATION Routine 06/01/2015 7:43 AM CDT MAMMO BILAT SCREENING Routine 08/23/2011 7:59 AM HEDDLER Family history of breast cancer in first degree relative from Last 3 Months or Most Recently Relevant to Health Maintenance Results * HIV-1 HIV-2 ANTIBODY + HIV P24 AG PANEL (07/07/2021 11:19 AM HEDDLER) HIV Screen 4th Generation w Reflex Non Reactive Non Reactive [facility] INSURANCE BILL Blood BLOOD SPECIMEN / Unknown 07/07/2021 11:19 AM HEDDLER 07/07/2021 Narrative Resulting Agency Comment [facility] [address] [facility] [phone] Azar Braxton MD LAB - CHEMISTRY TIFFANIE WILLS [facility] INSURANCE BILL [address] [place] [address] * (ABNORMAL) LIPID PROFILE (07/07/2021 11:19 AM HEDDLER) Cholesterol 232(H) <200 mg/dL [facility] INSURANCE BILL Triglycerides 134 <150 mg/dL [facility] INSURANCE BILL HDL Cholesterol 58 >40 mg/dL [facility] INSURANCE BILL VLDL Calculated 27 <=30 mg/dL [facility] INSURANCE BILL LDL Calculated 147(H) <130 mg/dL [facility] INSURANCE BILL Blood BLOOD SPECIMEN / Unknown 07/07/2021 11:19 AM HEDDLER 07/07/2021 Narrative Resulting Agency Comment Lab Testing performed at: [address] [phone] Azar Braxton MD LAB - CHEMISTRY TIFFANIE WILLS [facility] INSURANCE BILL [address] [place] [address] * HEPATITIS C AB W RFLX VERIFICATION (06/01/2015 7:43 AM CDT) Hepatitis C Antibody <0.1 0.0 - 0.9 s/co ratio [facility] 06/01/2015 7:43 AM CDT 06/01/2015 9:18 AM CDT Narrative [facility] - 06/02/2015 6:15 AM CDT Performed at: [address] [place] [id number] Manufacturing Plant Technician: Erasmo Morris PhD, Phone: [phone] Annette Singh MD LAB - CHEMISTRY TIFFANIE WILLS Performing Organization Address City/[facility] Co de Phone Number [facility] * MAMMO SCREENING DIGITAL IMAGE BILAT (08/23/2011 7:59 AM HEDDLER) Anatomical Region Laterality Modality Breast Bilateral Mammography 08/23/2011 12:0 7 PM HEDDLER Narrative 08/23/2011 12:27 PM HEDDLER DIGITAL BILATERAL SCREENING MAMMOGRAMS WITH CAD CORRELATION [...] if suspicious findings are present clinically. An [employer] [facility] Procedure Note [...] if suspicious findings are present clinically. [facility] [employer] [facility] Daja Orr MD MAMMO ORDERABLES from Last 3 Months or Most Recently Relevant to Health Maintenance Advance Directives * FULL RESUSCITATION (Latest Code Status on File) Date Activated Date Inactivated Comments 04/03/2011 3:58 PM 04/08/2011 4:57 AM Care Teams Freight Sorter Relationship Specialty Start Date End Date Azar Braxton MD [address] [address] PCP - General Family Medicine 07/07/21
[2024-10-06 20:50] LABS: Troponin I < 0.012 ng/mL (0.000-0.034)
--- NOTE | 2024-10-06 21:23 | ED_ITS ---
HPI - Syncope General Chief Complaint: Syncope Stated Complaint: Syncope Time Seen by Provider: 10/06/24 19:59 Source: patient Mode of arrival: ambulatory Limitations: no limitations History of Present Illness HPI narrative: This is a 39-year-old female that presents to the emergency department for generalized weakness. Reports she has been feeling unwell over the last week. She has been struggling with recurrent nausea and vomiting over about the last year. She has had an exhaustive workup by GI without a cause found. Reports she has not really been able to keep much down the last week. She attempted to come to work tonight and had nausea and vomiting, reporting a syncopal episode in the bathroom. She did not sustain any injuries from this. Related Data Allergies Allergy/AdvReac Type Severity Reaction Status Date / Time No Known Allergies Allergy Verified 07/27/24 00:33 Review of Systems 2 Review of Systems: CONSTITUTIONAL: Denies fever GASTROINTESTINAL: Denies abdominal pain, nausea, vomiting NEUROLOGIC: Reports generalized weakness. All systems reviewed & are unremarkable except as noted in HPI and below PMFSH Past Medical History Medical History (Updated 10/07/24 @ 01:56 by Diane Hickey PA-C) Gastroparesis Surgical History Surgical History (Updated 07/26/24 @ 20:16 by Yosef Boyd MD) History of section Exam 2 Narrative: GENERAL: Uncomfortable, well-nourished, and in no acute distress. HEAD: Normocephalic, atraumatic. EYES: EOMI. ENT: Mucous membranes moist. CHEST: Clear to auscultation. No respiratory distress. No wheezes rales or rhonchi HEART: Regular rate and rhythm. No murmur heard. Normal peripheral pulses. ABDOMEN: Soft, nontender, nondistended, normal active bowel sounds. EXTREMITIES: Normal range of motion. No edema. SKIN: Warm, dry, no rash. NEURO: No focal deficits. Alert and oriented x3. PSYCH: Normal mood and affect Course Course Emergency Course: patient resting comfortably. Updated on her workup Vital Signs Vital signs: Vital Signs Temperature 98.7 F 10/06/24 19:37 Pulse Rate 81 10/06/24 19:37 Respiratory Rate 18 10/06/24 19:37 Blood Pressure 145/97 H 10/06/24 19:37 Pulse Oximetry 99 10/06/24 19:37 Oxygen Delivery Room Air 10/06/24 19:37 Temperature 98.1 F 10/07/24 03:07 Pulse Rate 74 10/07/24 03:07 Respiratory Rate 16 10/07/24 03:07 Blood Pressure 103/50 L 10/07/24 03:07 Pulse Oximetry 97 10/07/24 03:07 Oxygen Delivery Room Air 10/06/24 23:32 MDM - Syncope MDM Narrative Medical decision making narrative: Patient presents to the emergency department for recurrent nausea and vomiting. Reports this has been an ongoing issue for her over the last year. She is afebrile and nontoxic appearing. Her vitals are stable. CBC with mild leukocytosis to 13. Metabolic panel is mild hypokalemia potassium 2.9. Magnesium is normal. Urine without evidence of infection. test is negative. Chest x-ray without acute cardiopulmonary abnormality. EKG without concerning changes and baseline troponin is negative. Patient was hydrated, given antiemetics, potassium replaced. Resting comfortably. Instructed to have further follow-up with her primary provider and corporate physical security supervisor. She was given warnings to return to the ER Differential Diagnosis Differential diagnosis: Likely syncope due to orthostatic hypotension, vasovagal syncope, dehydration and other (gerd, PUD, gastritis, drug induced nausea and vomiting, gastroenteritis) Lab Data Attestation: I reviewed the patient's lab results. 10/06/24 20:13 10/06/24 20:13 Labs: Lab Results 10/06/24 10/06/24 10/07/24 Range/Units 20:13 20:13 00:21 WBC 13.1 H (4.5-10.0) K/mm3 RBC 4.43 (4.2-5.4) M/mm3 Hgb 13.2 (12.0-15.0) g/dL Hct 37.4 (37.0-47.0) % MCV 84.4 (80-100) fl MCH 29.8 (26-34) pg MCHC 35.3 (32-36) g/dl RDW 14.2 (11.5-14.5) % Plt Count 361 (150-375) k/mm3 MPV 10.8 H (7.4-10.4) fl Immature Gran % (Auto) 0.4 (0-0.5) % Neut % (Auto) 71.0 (45.5-73.1) % Lymph % (Auto) 19.1 (18.3-44.2) % [place] % (Auto) 7.9 (2.6-8.5) % Eos % (Auto) 1.1 (0-4.4) % Baso % (Auto) 0.5 (0.2-1.2) % Lymph # (Auto) 2.50 (0.9-3.2) K/mm3 [place] # (Auto) 1.0 H (0.1-0.6) K/mm3 Eos # (Auto) 0.1 (0-0.3) K/mm3 Baso # (Auto) 0.1 (0.0-0.1) K/mm3 Abs Immat Gran (auto) 0.05 H (0.00-0.031) K/mm3 Absolute Neuts (auto) 9.3 H (1.3-6.7) K/mm3 Absolute Nucleated RBC 0.000 (0.0-0.012) K/mm3 Nucleated RBC % 0.0 (0.0-0.2) % Sodium 134 L (137-145) mmol/L Potassium 2.9 L (3.4-5.0) mmol/L Chloride 97 L (98-107) mmol/L Carbon Dioxide 24 (22-30) mmol/L Anion Gap 13 H (4-12) mmol/L BUN 11 (7-17) mg/dL Creatinine 0.77 (0.7-1.0) mg/dL Estim Creat Clear Calc 64 ml/min Estimated GFR > 60 (59 - ) Glucose 101 (65-110) mg/dL Calcium 9.6 (8.4-10.2) mg/dL Magnesium 2.0 (1.6-2.3) mg/dL Total Bilirubin 1.0 (0.2-1.3) mg/dL AST 25 (14-36) U/L ALT 21 (6-35) U/L Alkaline Phosphatase 77 (38-126) U/L Troponin I < 0.012 (0.000-0.034) ng/mL Total Protein 8.0 (6.3-8.2) g/dL Albumin 4.4 (3.5-5.1) g/dL Lipase 41 Cancelled (23-300) U/L Urine Color Yellow (Yellow) Urine Appearance Clear (Clear) Urine pH 6.5 (5.0-9.0) Ur Specific [place] 1.010 (1.001-1.035) Urine Protein Negative (Negative) mg/dL Urine Glucose (UA) Negative (Negative) mg/dL Urine Ketones 2+ H (Negative) mg/dL Ur Blood (Man) 1+ H (Negative) Urine Nitrate Negative (Negative) Urine Bilirubin Negative (Negative) Urine Urobilinogen 0.2 (<2.0) mg/dL Leukocyte Esterase Rfl Trace H (Negative) WILLIAM/UL Urine RBC 3-5 H (0-2) /hpf Urine WBC 0-5 (0-3) /hpf Ur Squamous Epith Cells Few (Few) /hpf Urine Bacteria 1+ H /hpf Urine Casts 3-5 Urine Test Negative Imaging Data Radiologist's impression: ITS Impressions Chest X-Ray 10/06/24 20:47 IMPRESSION: No focal infiltrate or effusion. ECG Data EKG #1: ECG completion date: 10/06/24 EKG Interpretation: normal rate, sinus rhythm, no ST changes and normal QT Critical Care Time Critical Care Time Critical Care Time: No Discharge Plan Discharge Clinical Impression: Acute hypokalemia, Acute dehydration Nausea and vomiting Qualifiers: Vomiting type: unspecified Qualified Code(s): R11.2 - Nausea with vomiting, unspecified Syncope Qualifiers: Syncope type: unspecified Qualified Code(s): R55 - Syncope and collapse Patient Disposition: Home, Self-Care Condition: Improved Instructions: Dehydration (ED), Hypokalemia (ED), Syncope (ED) Additional Instructions: Return to the emergency department if you experience fever, chest pain, shortness of breath, worsening abdominal pain with nausea and vomiting, you pass out, or any other symptoms that are concerning to you. Rest. Remain well hydrated. Nausea medication as needed. Increase potassium in your diet the next couple of days Follow up with your primary care doctor and corporate physical security supervisor Patient Language: Maori Follow-up/Referrals: UNKNOWN,DOCTOR [Primary Care Provider] -
[2024-10-06] MEDS: SODIUM CHLORIDE 0.9% IV 1,000 ML 999 ML IV CONT (21:53)
[2024-10-06] MEDS: diphenhydrAMINE HCl INJ 50 MG/ML VIAL 25 MG IV PUSH (21:54)
[2024-10-06] MEDS: METOCLOPRAMIDE HCL INJ 10 MG/2 ML VIAL IV PUSH (21:55)
[2024-10-06] MEDS: diazePAM INJ (*CRX) 10 MG/2 ML SYRINGE 5 MG IV PUSH (22:48)
[2024-10-07] MEDS: POTASSIUM CHLORIDE INJ 40 MEQ in SODIUM CHLORIDE 0.9% IV 500 ML 130 MEQ IVPB (00:18)
[2024-10-07 00:32] LABS: Add Urine Microscopic? YES; Appearance Urine Clear (Clear); Bacteria Urine 1+ /hpf; Bilirubin Urine Negative (Negative); Blood Urine 1+ (Negative); Color Urine Yellow (Yellow); Glucose Urine UA Negative (Negative); Ketones Urine 2+ mg/dL (Negative); Leukocyte Esterase Ur Trace LEU/UL (Negative); Nitrate Urine Negative (Negative); Protein Urine Negative (Negative); Squamous Epithelial Cell Urine Few /hpf (Few); Urobilinogen Urine 0.2 mg/dL (<2.0); WBC Urine 0-5 /hpf (0-3); pH Urine 6.5 (5.0-9.0)
[2024-10-07] MEDS: SODIUM CHLORIDE 0.9% IV 500 ML 999 ML IV CONT (00:32)
[2024-10-07 01:03] LABS: Pregnancy On Board Control Positive; Urine Pregnancy Test Negative
[2024-10-07 01:52] VITALS: BP 149/81; PULSE 77; RESP 16; TEMP 36.7; O2SAT 97
[2024-10-07 03:07] VITALS: BP 103/50; PULSE 74; RESP 16; TEMP 36.7; O2SAT 97
== END 2024-10-07 04:12 | disposition home or self-care (01) ==
PROVIDERS: Emergency Provider Physician Assistant
DX: E87.6 Hypokalemia (principal); E86.0 Dehydration; R55 Syncope and collapse
CPT/HCPCS: 36415; 71046; 80053; 81001; 81025; 83690; 83735; 84484; 85025; 93005; 96361; 96365; 96366; 96375; 99284; J1200; J2765; J3360; J3480; J7030; J7040